=== PATIENT | female | born 1950 | race Caucasian/White ===

== ENCOUNTER 2020-02-28 | Outpatient (REF) | payer MEDICARE, SELFPAY ==
[2020-02-28 11:02] LABS: MANUAL DIFF FLAG NO
[2020-02-28 11:07] LABS: Glucose Urine UA NEG (NEG); Leukocyte Esterase Urine 1+ (NEG); Nitrite Urine NEG (NEG); PH 6.5 (5.0-8.0); Specific Gravity - Urine 1.015 (1.005-1.025); Urine Blood NEG (NEG); Urine Ketones NEG (NEG); Urine Protein NEG (NEG-TRACE)
[2020-02-28 11:08] LABS: Basophils Percent Auto 0.7 % (0-2); Eosinophils Absolute Auto 0.2 X10*3/uL (0.0-0.4); Eosinophils Percent Auto 3.5 % (0-4); Hematocrit 43.2 % (37-47); Hemoglobin 13.5 g/dl (12.0-16.0); Imm Gran Abs Auto 0.04 X10*3/uL (0.00-0.03); Imm Gran Pct Auto 0.7 % (0.0-0.4); Lymphocytes Absolute Auto 1.4 X10*3/uL (1.2-4.9); Lymphocytes Percent Auto 23.4 % (20-40); Mean Corpuscular HGB Conc 31.3 g/dl (31.0-35.0); Mean Corpuscular Hemoglobin 28.7 pg (27.0-33.0); Mean Corpuscular Volume 91.9 fL (80-98); Mean Platelet Volume 10.1 fL (9.4-12.3); Monocytes Absolute Auto 0.6 X10*3/uL (0.1-1.2); Monocytes Percent Auto 9.6 % (2-11); Neutrophils Absolute Auto 3.7 X10*3/uL (2.0-8.3); Neutrophils Percent Auto 62.1 % (45-73); Platelet Count 242 X10*3/uL (160-400); Red Cell Distribution Width 14.6 % (11.0-16.0); White Blood Count 5.9 X10*3/uL (4.8-10.8)
[2020-02-28 11:12] LABS: Appearance Urine CLEAR; Color Urine YELLOW
[2020-02-28 11:24] LABS: RBC Urine 0-2 /HPF (0); Squamous Epithelial Cell Urine TRACE /LPF
[2020-02-28 11:33] LABS: Creatinine Urine 98.12 mg/dL; Protein/Creatinine Ratio, Ur 0.11 (<0.2); Total Protein Urine Random 11 mg/dL (<12)
[2020-02-28 11:33] LABS: Anion Gap 16 (12-20); Blood Urea Nitrogen 23 mg/dL (9-16); Calcium 7.8 mg/dL (8.4-10.2); Carbon Dioxide 24 mmol/L (22-29); Chloride 107 mmol/L (96-108); Estimated Glomerular Filt Rate 35; Potassium 4.3 mmol/l (3.3-5.1); Sodium 143 mmol/L (135-145)
== END 2020-02-28 00:01 | disposition home or self-care (01) ==
LOC: HO.LHD
PROVIDERS: Visit Provider Internal Medicine Hypertension Specialist
DX: I13.0 Hypertensive heart and chronic kidney disease with heart failure and stage 1 through stage 4 chronic kidney disease, or unspecified chronic kidney disease (principal); N18.9 Chronic kidney disease, unspecified; I50.9 Heart failure, unspecified; D63.1 Anemia in chronic kidney disease; D50.8 Other iron deficiency anemias
CPT/HCPCS: 36415; 80051; 81001; 82310; 82565; 84156; 84520; 85025

== ENCOUNTER 2020-03-25 10:44 | Outpatient (REF) | payer MEDICARE, SELFPAY ==
--- NOTE | ~2020-03-25 | US_ITS ---
EXAMINATION: US RETROPERITONEAL LIMITED (RENAL ONLY) CLINICAL INFORMATION: Chronic kidney disease stage IV. Anemia. COMPARISON: CT abdomen and pelvis 09/28/2018. TECHNIQUE: Real-time imaging of the kidneys. FINDINGS: RIGHT KIDNEY: 10.9 x 3.5 x 4.4 cm (SAG x AP x TRV). The kidney is normal in size, contour, and echogenicity. Renal cortical thickness is normal. No calculi or focal parenchymal lesions. No hydronephrosis. LEFT KIDNEY: 8.9 x 4.9 x 4.3 cm (SAG x AP x TRV). The left kidney is slightly smaller than the right. The kidney is normal in contour, and echogenicity. Renal cortical thickness is normal. No calculi or focal parenchymal lesions. No hydronephrosis. US/US renal BI IMPRESSION: The left kidney is smaller than the right otherwise unremarkable exam.
--- NOTE | 2020-04-21 09:13 | ECG_ITS ---
Hook-up date: 2020-04-21 15:53:00 Duration: 40:08:00 Test Indications: UNSPEC AFIB Medications: 87911 QRS complexes 1476 Ventricular ectopics which represent 1 % of total QRS comp. * Supraventricular ectopics which represent % of total QRS comp. 08810 Paced QRS complexs which represent <1 % of total QRS comp. VENTRICULAR ECTOPY 1362 Isolated 0 Bigeminal Cycles 57 Couplets 0 Runs 0 Beats in Runs * Beats LONGEST at * BPM at :: -- * Beats FASTEST at * BPM at :: -- SUPRAVENTRICULAR ECTOPY * Isolated * Couplets * Runs * Beats in Runs * Beats LONGEST at * BPM at :: -- * Beats FASTEST at * BPM at :: -- HEART RATES 58 MIN at 18:19:58 2020-04-21 70 AVG 117 MAX at 16:01:25 2020-04-21 LONGEST RR 1.1440 secs at 06:41:15 2020-04-22 S-T LEVELS Channel 1 - 128 mm at 15:53:00 2020-04-21 - 128 mm at 15:53:00 2020-04-21 Channel 2 - 128 mm at 15:53:00 2020-04-21 - 128 mm at 15:53:00 2020-04-21 Channel 3 - 128 mm at 03:51:21 -- - 128 mm at 03:51:21 Basic rhythm Atrial fibrillation Intermittent V-paced rhythm Rate is adequately controlled Frequent Premature ventricular complexes No diary submitted Referred By: Freddy Pugh Overread By: FREDDY PUGH MD
== END 2020-03-25 10:45 | disposition home or self-care (01) ==
LOC: HO.US 10:44
PROVIDERS: Visit Provider Internal Medicine Hypertension Specialist
DX: D64.9 Anemia, unspecified (principal); I13.0 Hypertensive heart and chronic kidney disease with heart failure and stage 1 through stage 4 chronic kidney disease, or unspecified chronic kidney disease; N18.9 Chronic kidney disease, unspecified; D50.8 Other iron deficiency anemias
CPT/HCPCS: 76775

== ENCOUNTER → 2020-04-07 11:11 | Outpatient (BNVA) | payer MEDICARE, SELFPAY | PROVIDERS: PCP Internal Medicine; Visit Provider Internal Medicine Cardiovascular Disease | DX: Z45.018 Encounter for adjustment and management of other part of cardiac pacemaker (principal); I10 Essential (primary) hypertension | CPT/HCPCS: 93005; 99212 ==

== ENCOUNTER → 2020-04-14 10:10 | Outpatient (BNVA) | payer MEDICARE, SELFPAY | PROVIDERS: PCP Internal Medicine; Visit Provider Internal Medicine | DX: J44.9 Chronic obstructive pulmonary disease, unspecified (principal); R06.00 Dyspnea, unspecified; Z79.51 Long term (current) use of inhaled steroids | CPT/HCPCS: Q3014 ==

== ENCOUNTER → 2020-04-21 15:39 | Outpatient (BNVA) | payer MEDICARE, SELFPAY | PROVIDERS: PCP Internal Medicine; Visit Provider Internal Medicine Cardiovascular Disease | DX: I48.91 Unspecified atrial fibrillation (principal) | CPT/HCPCS: 93226 ==

== ENCOUNTER 2020-05-05 10:52 | Outpatient (REF) | payer MEDICARE, SELFPAY ==
[2020-05-05 11:38] LABS: MANUAL DIFF FLAG NO
[2020-05-05 11:54] LABS: Basophils Percent Auto 0.5 % (0-2); Eosinophils Absolute Auto 0.2 X10*3/uL (0.0-0.4); Eosinophils Percent Auto 2.4 % (0-4); Hematocrit 45.8 % (37-47); Hemoglobin 14.8 g/dl (12.0-16.0); Imm Gran Abs Auto 0.03 X10*3/uL (0.00-0.03); Imm Gran Pct Auto 0.5 % (0.0-0.4); Lymphocytes Percent Auto 15.4 % (20-40); Mean Corpuscular HGB Conc 32.3 g/dl (31.0-35.0); Mean Corpuscular Hemoglobin 29.4 pg (27.0-33.0); Mean Corpuscular Volume 90.9 fL (80-98); Mean Platelet Volume 10.8 fL (9.4-12.3); Monocytes Absolute Auto 0.5 X10*3/uL (0.1-1.2); Monocytes Percent Auto 8.4 % (2-11); Neutrophils Absolute Auto 4.6 X10*3/uL (2.0-8.3); Neutrophils Percent Auto 72.8 % (45-73); Platelet Count 227 X10*3/uL (160-400); Red Blood Count 5.04 X10*6/uL (4.20-5.50); Red Cell Distribution Width 14.4 % (11.0-16.0); White Blood Count 6.3 X10*3/uL (4.8-10.8)
[2020-05-05 12:18] LABS: Alanine Aminotransferase 16 U/L (0-31); Albumin Level 3.4 g/dL (3.5-5.0); Alkaline Phosphatase 109 U/L (39-117); Anion Gap 15 (12-20); Aspartate Amino Transferase 15 U/L (5-31); Bilirubin Total 0.3 mg/dL (0.0-1.0); Blood Urea Nitrogen 26 mg/dL (9-16); Calcium 8.3 mg/dL (8.4-10.2); Carbon Dioxide 21 mmol/L (22-29); Chloride 111 mmol/L (96-108); Cholesterol 158 mg/dL; Estimated Glomerular Filt Rate 43; Glucose Random 99 mg/dL (60-115); HDL Cholesterol 51 mg/dL; LDL Cholesterol Calculated 77 mg/dl; Potassium 5.2 mmol/L (3.3-5.1); Sodium 142 mmol/L (135-145); Triglycerides 151 mg/dL
[2020-05-05 12:39] LABS: Ferritin 129 ng/mL (10-250); Thyroid Stimulating Hormone 1.77 uIU/mL (0.32-4.0)
== END 2020-05-05 10:53 | disposition home or self-care (01) ==
LOC: HO.LHD 10:52
PROVIDERS: PCP Internal Medicine; Visit Provider Internal Medicine Cardiovascular Disease
DX: I48.19 Other persistent atrial fibrillation (principal); Z79.01 Long term (current) use of anticoagulants; Z95.0 Presence of cardiac pacemaker; Z00.01 Encounter for general adult medical examination with abnormal findings; D50.8 Other iron deficiency anemias; G89.4 Chronic pain syndrome
CPT/HCPCS: 36415; 80053; 80061; 82728; 84443; 85025; 99212

== ENCOUNTER 2020-07-21 10:29 | Outpatient (REF) | payer MEDICARE, SELFPAY ==
[2020-07-21 11:22] LABS: MANUAL DIFF FLAG NO
[2020-07-21 11:53] LABS: Basophils Absolute Auto 0.1 X10*3/uL (0.0-0.2); Basophils Percent Auto 0.9 % (0-2); Eosinophils Absolute Auto 0.2 X10*3/uL (0.0-0.4); Hematocrit 45.6 % (37-47); Hemoglobin 14.5 g/dl (12.0-16.0); Imm Gran Abs Auto 0.07 X10*3/uL (0.00-0.03); Imm Gran Pct Auto 1.2 % (0.0-0.4); Lymphocytes Absolute Auto 1.3 X10*3/uL (1.2-4.9); Lymphocytes Percent Auto 22.1 % (20-40); Mean Corpuscular HGB Conc 31.8 g/dl (31.0-35.0); Mean Corpuscular Hemoglobin 29.1 pg (27.0-33.0); Mean Corpuscular Volume 91.4 fL (80-98); Mean Platelet Volume 10.5 fL (9.4-12.3); Monocytes Absolute Auto 0.5 X10*3/uL (0.1-1.2); Monocytes Percent Auto 8.7 % (2-11); Neutrophils Absolute Auto 3.7 X10*3/uL (2.0-8.3); Neutrophils Percent Auto 64.1 % (45-73); Platelet Count 232 X10*3/uL (160-400); Red Blood Count 4.99 X10*6/uL (4.20-5.50); Red Cell Distribution Width 14.5 % (11.0-16.0); White Blood Count 5.8 X10*3/uL (4.8-10.8)
[2020-07-21 11:58] LABS: Alanine Aminotransferase 14 U/L (0-31); Albumin Level 3.5 g/dL (3.5-5.0); Alkaline Phosphatase 98 U/L (39-117); Anion Gap 15 (12-20); Aspartate Amino Transferase 13 U/L (5-31); Bilirubin Total 0.4 mg/dL (0.0-1.0); Blood Urea Nitrogen 29 mg/dL (9-16); Calcium 8.7 mg/dL (8.4-10.2); Carbon Dioxide 21 mmol/L (22-29); Chloride 112 mmol/L (96-108); Estimated Glomerular Filt Rate 44; Glucose Random 109 mg/dL (60-115); Potassium 4.7 mmol/L (3.3-5.1); Sodium 143 mmol/L (135-145); Total Protein 6.2 g/dL (6.5-8.0)
== END 2020-07-21 10:30 | disposition home or self-care (01) ==
LOC: HO.LAB 10:29
PROVIDERS: PCP Registered Nurse; Visit Provider Registered Nurse
DX: J44.9 Chronic obstructive pulmonary disease, unspecified (principal); R06.00 Dyspnea, unspecified; D50.9 Iron deficiency anemia, unspecified; R42 Dizziness and giddiness; Z79.899 Other long term (current) drug therapy; Z87.891 Personal history of nicotine dependence
CPT/HCPCS: 36415; 80053; 85025; 99212

== ENCOUNTER 2020-11-12 08:58 | Outpatient (REF) | payer MEDICARE, SELFPAY ==
[2020-11-12 11:21] LABS: Hematocrit 41.5 % (37-47); Hemoglobin 13.1 g/dl (12.0-16.0); Mean Corpuscular HGB Conc 31.6 g/dl (31.0-35.0); Mean Corpuscular Hemoglobin 28.9 pg (27.0-33.0); Mean Corpuscular Volume 91.6 fL (80-98); Platelet Count 259 X10*3/uL (160-400); Red Blood Count 4.53 X10*6/uL (4.20-5.50); Red Cell Distribution Width 13.3 % (11.0-16.0); White Blood Count 6.7 X10*3/uL (4.8-10.8)
[2020-11-12 12:03] LABS: Anion Gap 13 (12-20); Blood Urea Nitrogen 19 mg/dL (9-16); Carbon Dioxide 23 mmol/L (22-29); Chloride 109 mmol/L (96-108); Estimated Glomerular Filt Rate 54; Phosphorus 3.9 mg/dL (2.7-4.5); Sodium 141 mmol/L (135-145)
== END 2020-11-12 08:59 | disposition home or self-care (01) ==
LOC: HO.HMGCLDS 08:58
PROVIDERS: Visit Provider Internal Medicine Hypertension Specialist
DX: I13.0 Hypertensive heart and chronic kidney disease with heart failure and stage 1 through stage 4 chronic kidney disease, or unspecified chronic kidney disease (principal); N18.9 Chronic kidney disease, unspecified; I50.9 Heart failure, unspecified
CPT/HCPCS: 36415; 80051; 82310; 82565; 84100; 84520; 85027

== ENCOUNTER → 2020-11-26 10:16 | Outpatient (BNVA) | payer MEDICARE, SELFPAY | PROVIDERS: PCP Registered Nurse; Visit Provider Internal Medicine | DX: J44.9 Chronic obstructive pulmonary disease, unspecified (principal); I48.19 Other persistent atrial fibrillation; R06.00 Dyspnea, unspecified; Z23 Encounter for immunization | CPT/HCPCS: 90471; 90686; Q3014 ==

== ENCOUNTER → 2020-12-01 12:44 | Outpatient (BNVA) | payer MEDICARE, SELFPAY | PROVIDERS: PCP Internal Medicine; Visit Provider Internal Medicine Cardiovascular Disease | DX: Z45.018 Encounter for adjustment and management of other part of cardiac pacemaker (principal); I48.19 Other persistent atrial fibrillation | CPT/HCPCS: 99212 ==

== ENCOUNTER 2020-12-09 14:44 | Outpatient (REF) | payer MEDICARE, SELFPAY ==
--- NOTE | ~2020-12-09 | XR_ITS ---
EXAMINATION: XR CHEST CLINICAL INFORMATION: COPD COMPARISON: 07/10/2018 TECHNIQUE: 2 views of the chest were obtained. FINDINGS: Left chest wall pacer with leads over the right atrium and right ventricle. Lungs are well expanded. Increased peripheral left midlung opacity. No pleural effusion or pneumothorax. The cardiomediastinal silhouette is normal in size with a calcified aorta. XR/XR chest 2V IMPRESSION: Increased peripheral left midlung opacity may represent atelectasis or pneumonia. Continued follow-up to resolution is recommended.
--- NOTE | ~2020-12-09 | US_ITS ---
EXAMINATION: US EXTRACRANIAL CAROTID DUPLEX, BILATERAL CLINICAL INFORMATION: Stroke COMPARISON: None TECHNIQUE: Real-time ultrasound and Doppler techniques (integrating B-mode 2-D vascular images, Doppler spectral analysis and color-flow Doppler imaging) were utilized to interrogate the extracranial carotid arteries, the vertebral arteries and proximal subclavian arteries bilaterally. The degree of stenosis is determined by criteria similar to NASCET. FINDINGS: Right Side: 1. There is no significant atherosclerotic plaque seen in the bifurcation/proximal ICA region. 2. The common carotid artery PSV proximally is 46 cm/s and distally 39 cm/s. 3. The proximal internal carotid artery velocities are 53 cm/s systolic and 26 cm/s diastolic. 4. The proximal external carotid artery PSV is 72 cm/s. 5. The vertebral artery shows antegrade flow. 6. The subclavian artery waveforms are normal. Left Side: 1. There is no significant atherosclerotic plaque seen in the bifurcation/proximal ICA region. 2. The common carotid artery PSV proximally is 57 cm/s and distally 61 cm/s. 3. The proximal internal carotid artery velocities are 40 cm/s systolic and 22 cm/s diastolic. 4. The proximal external carotid artery PSV is 43 cm/s. 5. The vertebral artery shows antegrade flow. 6. The subclavian artery waveforms are normal. US/US carotid duplex BI IMPRESSION: 1. RIGHT: Normal right internal carotid artery without atherosclerotic plaque or hemodynamically significant stenosis. 2. LEFT: Normal left internal carotid artery without atherosclerotic plaque or hemodynamically significant stenosis.
[2020-12-09 14:59] LABS: MANUAL DIFF FLAG NO
[2020-12-09 15:13] LABS: Ammonia 31 umol/L (13-55)
[2020-12-09 15:30] LABS: Basophils Percent Auto 0.3 % (0-2); Eosinophils Absolute Auto 0.1 X10*3/uL (0.0-0.4); Eosinophils Percent Auto 0.6 % (0-4); Hematocrit 41.8 % (37.0-47.0); Hemoglobin 13.4 g/dl (12.0-16.0); Imm Gran Abs Auto 0.11 X10*3/uL (0.00-0.03); Imm Gran Pct Auto 1.3 % (0.0-0.4); Lymphocytes Absolute Auto 1.1 X10*3/uL (1.2-4.9); Lymphocytes Percent Auto 13.1 % (20-40); Mean Corpuscular HGB Conc 32.1 g/dl (31.0-35.0); Mean Corpuscular Hemoglobin 28.9 pg (27.0-33.0); Mean Corpuscular Volume 90.3 fL (80.0-98.0); Mean Platelet Volume 10.5 fL (9.4-12.3); Monocytes Percent Auto 11.6 % (2-11); Neutrophils Absolute Auto 6.33 x10*3/uL (2.0-8.3); Neutrophils Percent Auto 73.1 % (45-73); Platelet Count 283 X10*3/uL (160-400); Red Blood Count 4.63 X10*6/uL (4.20-5.50); Red Cell Distribution Width 13.9 % (11.0-16.0); White Blood Count 8.7 X10*3/uL (4.8-10.8)
[2020-12-09 16:07] LABS: Anion Gap 16 (12-20); Blood Urea Nitrogen 27 mg/dL (9-16); Calcium 8.1 mg/dL (8.4-10.2); Carbon Dioxide 19 mmol/L (22-29); Chloride 109 mmol/L (96-108); Estimated Glomerular Filt Rate 40; Glucose Random 128 mg/dL (60-115); Potassium 3.6 mmol/L (3.3-5.1); Sodium 140 mmol/L (135-145)
== END 2020-12-09 14:45 | disposition home or self-care (01) ==
LOC: HO.LAB 14:44
PROVIDERS: Visit Provider Psychiatry & Neurology Neurology
DX: I63.9 Cerebral infarction, unspecified (principal); R42 Dizziness and giddiness; J44.9 Chronic obstructive pulmonary disease, unspecified
CPT/HCPCS: 36415; 71046; 80048; 82140; 85025; 93880

== ENCOUNTER 2020-12-10 08:54 | Outpatient (REF) | payer MEDICARE, SELFPAY ==
[2020-12-10 11:42] LABS: Appearance Urine HAZY; Color Urine DK YELLOW; Glucose Urine UA NEG (NEG); Leukocyte Esterase Urine NEG (NEG); Nitrite Urine NEG (NEG); Urine Blood TRACE (NEG); Urine Ketones NEG (NEG); Urine Protein TRACE MG/DL (NEG-TRACE)
[2020-12-10 13:28] LABS: Bacteria Urine 3+ /LPF; Squamous Epithelial Cell Urine 1+ /LPF; WBC Urine 0-2 /HPF (0-4)
== END 2020-12-10 08:55 | disposition home or self-care (01) ==
LOC: HO.HMGCLNP 08:54
PROVIDERS: Visit Provider Psychiatry & Neurology Neurology
DX: R44.3 Hallucinations, unspecified (principal)
CPT/HCPCS: 81001

== ENCOUNTER 2020-12-10 20:54 | Emergency (ER) | payer MEDICARE, SELFPAY ==
[2020-12-10] VITALS (14 sets, daily range): BP systolic 70–118; BP diastolic 40–75; PULSE 69–145; RESP 17–33; TEMP 38.1–39.1; O2SAT 98–100; BMI 30.4
--- NOTE | 2020-12-10 | ECG_ITS ---
Test Reason : SOB Blood Pressure : / mmHG Vent. Rate : 137 BPM Atrial Rate : 000 BPM P-R Int : 000 ms QRS Dur : 096 ms QT Int : 302 ms P-R-T Axes : 000 -01 197 degrees QTc Int : 456 ms Atrial fibrillation with rapid ventricular response Minimal voltage criteria for LVH, may be normal variant ( [employer] product ) Marked ST abnormality, possible lateral subendocardial injury Abnormal ECG When compared with ECG of 10-DEC-2020 21:14, No significant change was found Referred By: Shruthi Calderon Electronically Signed By:SHEILA ANDREWS MD
--- NOTE | ~2020-12-10 | CT_ITS ---
EXAMINATION: CT ABDOMEN AND PELVIS WITH CONTRAST CLINICAL INFORMATION: Colitis. COMPARISON: CT scan abdomen pelvis September 28, 2018 TECHNIQUE: Multidetector volumetric images were obtained from the superior aspect of the liver through the pubic symphysis following administration 85 mL of Omnipaque 350 intravenous contrast. Sagittal and coronal reformatted images were obtained on the technologist's workstation. Oral contrast: No This CT examination was performed using dose optimization techniques as appropriate, variously including the following: *Automated exposure control *Adjustment of mA and/or kV according to patient size (this includes techniques or standardized protocols for targeted exams where dose is matched to indication/reason for exam; i.e. extremities or head) *Use of iterative reconstruction technique DLP: 1120 mGy-cm FINDINGS: LUNG BASES: Dense consolidation at the left lung base. Heart size is enlarged. Pacemaker leads in the heart. LIVER, GALLBLADDER, AND BILIARY TREE: The liver is normal in size, shape, and attenuation. No focal hepatic lesion or biliary ductal dilatation is present. The gallbladder is unremarkable with no evidence of radiopaque gallstones, gallbladder wall thickening, or obvious pericholecystic inflammatory changes. PANCREAS: Pancreas is atrophic. No inflammation of the pancreas. No pancreatic mass or pancreatic duct dilatation. SPLEEN: Unremarkable. ADRENAL GLANDS: Unremarkable. KIDNEYS AND URETERS: The kidneys are normal in size, shape, and attenuation. No hydronephrosis, hydroureter, or calculi seen. No perinephric stranding. BLADDER: Cadet catheter within the bladder. Bladder is partially filled. No bladder mass or calculus. No inflammation around the bladder. GASTROINTESTINAL TRACT: Surgical clips right lower quadrant. There are mildly distended small bowel loops in left midabdomen with transition zone low pelvis. The terminal ileum is decompressed. Findings suggest a mild small bowel obstruction. No bowel wall thickening or edema. There is no evidence of colitis. Moderate volume of scattered stool in the colon. The appendix is not seen. Stomach unremarkable. ABDOMINAL WALL: No significant hernia is appreciated. LYMPH NODES: Normal. VASCULAR: No change in size of the infrarenal abdominal aortic aneurysm since prior CAT scan of 2018. Aneurysm measures 3.9 cm transverse. No evidence of aneurysm leak. Recommend follow-up survey imaging of the abdominal aorta every 2 years. PELVIC VISCERA: Unremarkable. OSSEOUS STRUCTURES: No acute osseous stability. There is multilevel degenerative spondylosis of the spine. CT/CT abdomen pelvis w con IMPRESSION: 1. Consolidation at left lung base. 2. Mild small bowel dilatation consistent with mild obstruction with transition point in the low pelvis. No evidence of colitis. 3. Stable infrarenal abdominal aortic aneurysm measuring 3.9 cm. Recommend follow-up survey imaging of the abdominal aorta every 2 years.
--- NOTE | ~2020-12-10 | XR_ITS ---
EXAMINATION: XR CHEST CLINICAL INFORMATION: Central line placement. COMPARISON: 12/10/2020 TECHNIQUE: Frontal view of the chest was obtained. FINDINGS: Right IJ central venous catheter tip terminates near the cavoatrial junction. Left-sided dual lead pacemaker is unchanged. Multiple EKG leads overlie the chest. Patient is rotated to the left. Patchy airspace consolidation is again seen in the left lung base and mid lung, unchanged from prior. Cardiac and mediastinal contours are normal. No pleural effusion or pneumothorax. Right lung appears clear. XR/XR chest 1V IMPRESSION: Persistent airspace consolidation in the left midlung and left lung base Right IJ central venous catheter tip terminates near the cavoatrial junction. No pneumothorax.
--- NOTE | ~2020-12-10 | XR_ITS ---
EXAMINATION: XR CHEST CLINICAL INFORMATION: Shortness of breath. COMPARISON: 12/09/2020 TECHNIQUE: Frontal view of the chest was obtained. FINDINGS: Dual lead left pectoral pacemaker is unchanged. Cardiac leads overlie the chest. There are new alveolar airspace opacities throughout the left lung, more pronounced at the base. A few patchy airspace opacities are suspected in the right upper lobe. No pneumothorax or pleural effusion. Cardiac and mediastinal contours are normal. Calcific atherosclerosis is present in the thoracic aorta. XR/XR chest 1V IMPRESSION: New multifocal left long consolidation and questionable early consolidation in the right lung, concerning for asymmetric pulmonary edema given the relatively sudden onset. Aspiration is less likely given the distribution. Pneumonia is also on the differential.
[2020-12-10 21:02] LABS: Glucose, Whole Blood 134 mg/dL (60-115)
--- NOTE | 2020-12-10 21:14 | ECG_ITS ---
Test Reason : DIFFICULTY BREATHING Blood Pressure : / mmHG Vent. Rate : 133 BPM Atrial Rate : 000 BPM P-R Int : 000 ms QRS Dur : 096 ms QT Int : 310 ms P-R-T Axes : 000 -02 210 degrees QTc Int : 461 ms Atrial fibrillation with rapid ventricular response Marked ST abnormality, possible inferolateral subendocardial injury Abnormal ECG Atrial fibrillation is new Referred By: Shruthi Calderon Electronically Signed By:SHEILA ANDREWS MD
[2020-12-10] MEDS: Albuterol Sulfate (0.083%) 2.5 MG/3 ML VIAL.NEB 10 MG INHALE (21:22)
[2020-12-10 21:29] LABS: MANUAL DIFF FLAG NO
[2020-12-10 21:33] LABS: Basophils Percent Auto 0.5 % (0-2); Eosinophils Percent Auto 0.5 % (0-4); Hematocrit 43.7 % (37.0-47.0); Hemoglobin 13.7 g/dl (12.0-16.0); Imm Gran Pct Auto 2.3 % (0.0-0.4); Lymphocytes Absolute Auto 0.6 X10*3/uL (1.2-4.9); Lymphocytes Percent Auto 13.3 % (20-40); Mean Corpuscular HGB Conc 31.4 g/dl (31.0-35.0); Mean Corpuscular Hemoglobin 28.6 pg (27.0-33.0); Mean Corpuscular Volume 91.2 fL (80.0-98.0); Monocytes Absolute Auto 0.1 X10*3/uL (0.1-1.2); Monocytes Percent Auto 3.2 % (2-11); Neutrophils Absolute Auto 3.5 x10*3/uL (2.0-8.3); Neutrophils Percent Auto 80.2 % (45-73); Platelet Count 323 X10*3/uL (160-400); Red Blood Count 4.79 X10*6/uL (4.20-5.50); Red Cell Distribution Width 13.8 % (11.0-16.0); White Blood Count 4.4 X10*3/uL (4.8-10.8)
[2020-12-10] MEDS: methylPREDNISolone Sod Succ 125 MG/2 ML VIAL IVPUSH (21:33)
[2020-12-10 21:36] LABS: Venous Blood Gas Refer to POC result
[2020-12-10 21:38] LABS: VBG Base Excess -11.4 mmol/L; VBG HCO3 14 mmol/L (22-26); VBG pCO2 32 mmHg; VBG pH 7.25 (7.32-7.43); VBG pO2 47 mmHg
[2020-12-10 21:40] LABS: INTERNATIONAL NORM RATIO 1.6 (0.9-1.1)
[2020-12-10] MEDS: 0.9 % Sodium Chloride 1,000 ML 999 ML IVCONT (21:41)
[2020-12-10] MEDS: Metoprolol Tartrate 5 MG/5 ML VIAL IVPUSH ×2 (21:41→22:02)
[2020-12-10 21:47] LABS: Alanine Aminotransferase 52 U/L (0-31); Alkaline Phosphatase 151 U/L (39-117); Anion Gap 17 (12-20); Aspartate Amino Transferase 49 U/L (5-31); Bilirubin Direct 0.3 mg/dL (0.0-0.5); Bilirubin Total 0.4 mg/dL (0.0-1.0); Blood Urea Nitrogen 24 mg/dL (9-16); Calcium 7.6 mg/dL (8.4-10.2); Carbon Dioxide 15 mmol/L (22-29); Chloride 112 mmol/L (96-108); Estimated Glomerular Filt Rate 41; Glucose Random 134 mg/dL (60-115); Lipase 18 U/L (8-78); Magnesium 1.7 mg/dL (1.6-2.6); Potassium 3.4 mmol/L (3.3-5.1); Sodium 141 mmol/L (135-145); Total Protein 5.5 g/dL (6.5-8.0)
--- NOTE | 2020-12-10 21:53 | ED.GENADULT ---
HPI - General Adult General Chief complaint: Altered Mental Status Stated complaint: guy Time Seen by Provider: 12/10/20 21:16 Source: patient and family Mode of arrival: wheelchair Limitations: altered mental status History of Present Illness HPI narrative: Patient is brought to the emergency room by her daughter. The daughter reports that the patient has been hallucinating for several days, seeing people, having multiple episodes of diarrhea. The daughter reports that since this morning, the patient has been altered, confused, continues hallucinating. The daughter reports that the patient seems that had trouble breathing earlier today, states that prior to bring the patient to the hospital, the patient was cyanotic, more altered than she has been, patient does not use oxygen at home. However, patient's does us oxygen, the family put the oxygen on the patient and brought her to the emergency room. Patient is unable to give any history due to respiratory distress Related Data Home Medications Medication Instructions Recorded Confirmed albuterol sulfate 90 mcg/actuation 2 puff INHALATION Q6H PRN 04/07/20 12/10/20 aerosol inhaler ascorbic acid (vitamin C) 500 mg 500 mg PO BID 04/07/20 12/10/20 tablet ferrous sulfate 325 mg (65 mg 325 mg PO BID 04/07/20 12/10/20 iron) tablet folic acid 1 mg tablet 1 mg PO DAILY 04/07/20 12/10/20 simvastatin 40 mg tablet 40 mg PO DAILY 04/07/20 12/10/20 hydrocodone 7.5 mg-acetaminophen 1 tab PO BID PRN 07/21/20 12/10/20 325 mg tablet lipase 3,000-protease 0 cap PO 11/26/20 12/01/20 9,500-amylase 15,000 unit capsule, delayed rel (Creon) mirtazapine 15 mg tablet 15 mg PO BEDTIME 11/26/20 12/10/20 metoprolol succinate 100 mg 50 mg PO BID 12/10/20 12/10/20 tablet,extended release 24 hr Previous Rx's Medication Instructions Recorded pantoprazole 40 mg tablet,delayed 40 mg PO DAILY 30 Days #30 tab 02/06/20 release sucralfate 1 gram tablet 4 g PO BEDTIME #360 tab 02/06/20 umeclidinium 62.5 mcg-vilanterol 1 inh INHALATION DAILY 30 Days #60 11/26/20 25 mcg/actuation powdr for ea inhalation (Anoro Ellipta) rivaroxaban 20 mg tablet (Xarelto) 20 mg PO DAILY #30 tab 12/01/20 Allergies Allergy/AdvReac Type Severity Reaction Status Date / Time No Known Allergies Allergy Verified 12/10/20 23:39 [No Known Allergies*] Review of Systems Review of Systems: Yes Unobtainable due to mental condition [facility] Past Medical History Medical History Cardiac pacemaker in situ COPD (chronic obstructive pulmonary disease) Dyspnea on exertion HTN (hypertension) Persistent atrial fibrillation Sick sinus syndrome Surgical History History of cardioversion History of radiofrequency ablation (RFA) for complex left atrial arrhythmia Hx of cardiac pacemaker Hx of hysterectomy Family History Family History Father CHF (congestive heart failure) Cancer Pacemaker Mother Emphysema lung Social History Social History Alcohol intake: never Patient Tobacco Use Status: Never used Tobacco Use of substances other than those prescribed or required for medical reasons: No Advance Directives: No Advance Directives Information Provided: Yes Physical Exam Vital Signs: Vital Signs: Last Vital Signs Temp 99.1 F 12/11/20 03:22 Pulse 97 12/11/20 03:58 Resp 18 12/11/20 03:58 BP 108/65 12/11/20 03:58 Pulse Ox 100 12/11/20 03:58 Body Mass Index 30.4 Const: Other: Appearance: Somnolent, wakes up when her name is called Eyes: Pupils equal, round and reactive to light. ENT: Pharynx normal. Neck: Normal inspection. Neck supple. No lymph nodes noted. No crepitus CVS: Atrial fibrillation heart rate between 130-160 Respiratory: Deep shallow breaths, bilateral wheezing, significant tightness Abdomen: Soft and nontender. No rigidity. No distention. Skin: Skin warm and dry. Extremities: No lower extremity edema. No Lacerations. No Rash Neuro: Moves all extremities Course Course Course Narrative: On arrival, patient received 125 mg of methylprednisolone, DuoNeb, and an hour long albuterol nebulization treatment After IV hydration, several nebulization treatments with DuoNebs and albuterol, 2 doses of metoprolol IV and after being on BiPAP, patient is much more alert, awake, no talking, alert and oriented x2, speaking in full sentences, complaining that she is very thirsty and wants something to drink Patient had a large bowel movement, patient had black stool, guaiac sent and is positive (likely due to Xarelto). Patient's hemoglobin is stable 14 and hematocrit is 43. Patient was weaned off BiPAP, now on a Booth canula 8L, saturating at 99% Patient has multifocal left lung consolidations and early consolidations in the right lower lobe. Patient was given 1 g of ceftriaxone and 500 mg of IV azithromycin. COVID negative Patient's heart rate on arrival ranged between 130 and 170, blood pressure 110 systolic. Patient was given IV fluids and 2 doses of 5 mg of IV metoprolol. Initially the patient's blood pressure was stable, but shortly after started to drop to the 70s systolic. Patient's blood pressure did not improve despite 4L of Normal saline. Patient is awake and alert, speaking in full sentences. Discussed with the patient and her daughter who is the healthcare proxy that we need to insert a central line to start pressors. Patient and daughter agree with plan. Patient's heart rate improved to 80-90, remains in atrial fibrillation. Patient has now a 3 lumen central line in the right IJ Patient is currently on Levophed 8.5 mcg, has a blood pressure of 117/77. We attempted to lower the Levophed, but the patient's blood pressure started dropping below 90. Therefore, Levophed at a 0.5 was restarted. We do not have ICU beds in our facility, we attempted transferring to patient to [facility]. Patient was accepted at [facility]. Patient will be going from ED to ED, accepting physician Dr. Aguayo. Procedures Central Line Placement Right IJ: Time Out Performed: Yes Patient Placed on Monitor/Pulse Ox: Yes MD Prep: mask, gown and gloves Central Line Prep: Chlorhexidine scrub Local Anesthetic: lidocaine 1% Amount of anesthesia used (mL): 4 Ultrasound Used for Placement: Yes Central Line Lumen Inserted: triple Post Procedure: sutured in place, good blood return, all ports aspirated, flushed, capped and sterile dressing applied Post Procedure X-Ray: tip of catheter in good position and no pneumothorax seen Patient Tolerated Procedure: well Complications: none Medical Decision Making Lab Data Result diagrams: 12/11/20 00:42 12/10/20 21:15 Labs: Lab Results 12/10/20 12/10/20 12/10/20 Range/Units 20:59 21:15 21:15 WBC 4.4 L (4.8-10.8) X10*3/uL RBC 4.79 (4.20-5.50) X10*6/uL Hgb 13.7 (12.0-16.0) g/dl Hct 43.7 (37.0-47.0) % MCV 91.2 (80.0-98.0) fL MCH 28.6 (27.0-33.0) pg MCHC 31.4 (31.0-35.0) g/dl RDW 13.8 (11.0-16.0) % Plt Count 323 (160-400) X10*3/uL MPV 10.0 (9.4-12.3) fL Immature Gran % (Auto) 2.3 H (0.0-0.4) % Neut % (Auto) 80.2 H (45-73) % Lymph % (Auto) 13.3 L (20-40) % [place] % (Auto) 3.2 (2-11) % Eos % (Auto) 0.5 (0-4) % Baso % (Auto) 0.5 (0-2) % Lymph # (Auto) 0.6 L (1.2-4.9) X10*3/uL [place] # (Auto) 0.1 (0.1-1.2) X10*3/uL Eos # (Auto) 0.0 (0.0-0.4) X10*3/uL Baso # (Auto) 0.0 (0.0-0.2) X10*3/uL Abs Immat Gran (auto) 0.10 H (0.00-0.03) X10*3/uL Absolute Neuts (auto) 3.5 (2.0-8.3) x10*3/uL Absolute Nucleated RBC 0.000 (0.0-0.012) X10*3/uL Nucleated RBC % (auto) 0.0 (0.0-0.2) /100WBC PT 18.0 H (9.9-13.0) SEC INR 1.6 H (0.9-1.1) VBG pH (7.32-7.43) VBG pCO2 mmHg VBG pO2 mmHg VBG HCO3 (22-26) mmol/L VBG O2 Saturation % VBG Base Excess mmol/L Sodium (135-145) mmol/L Potassium (3.3-5.1) mmol/L Chloride (96-108) mmol/L Carbon Dioxide (22-29) mmol/L Anion Gap (12-20) BUN (9-16) mg/dL Creatinine (0.5-1.4) mg/dL Estim Creat Clear Calc Estimated GFR POC Glucose 134 H (60-115) mg/dL Random Glucose (60-115) mg/dL Lactic Acid (0.5-2.0) mmol/L Lactic Acid Fup @ 2Hr (0.5-2.0) mmol/L Lactic Acid Fup @ 4Hr (0.5-2.0) mmol/L Calcium (8.4-10.2) mg/dL Magnesium (1.6-2.6) mg/dL Total Bilirubin (0.0-1.0) mg/dL Direct Bilirubin (0.0-0.5) mg/dL AST (5-31) U/L ALT (0-31) U/L Alkaline Phosphatase (39-117) U/L Ammonia (13-55) umol/L Troponin I High Sens (<3.5-17.0) ng/L B-Natriuretic Peptide (<100) pg/mL Total Protein (6.5-8.0) g/dL Albumin (3.5-5.0) g/dL Lipase (8-78) U/L TSH (0.32-4.0) uIU/mL Urine Color Urine Appearance Urine pH (5.0-8.0) Ur Specific [place] (1.005-1.025) Urine Protein (NEG-TRACE) MG/DL Urine Glucose (UA) (NEG) MG/DL Urine Ketones (NEG) MG/DL Urine Blood (NEG) Urine Nitrite (NEG) Ur Leukocyte Esterase (NEG) Stool Occult Blood (NEGATIVE) Urine Opiates Screen (Not Detect) Urine Fentanyl Screen (Not Detect) Acetaminophen (<30) mcg/mL Ur Barbiturates Screen (Not Detect) Ur Phencyclidine Scrn (Not Detect) Ur Amphetamines Screen (Not Detect) U Benzodiazepines Scrn (Not Detect) Urine Cocaine Screen (Not Detect) U Marijuana (THC) Screen (Not Detect) COVID-19 (ELO) (Negative) COVID-19 Clin Com 12/10/20 12/10/20 12/10/20 Range/Units 21:15 21:15 21:15 WBC (4.8-10.8) X10*3/uL RBC (4.20-5.50) X10*6/uL Hgb (12.0-16.0) g/dl Hct (37.0-47.0) % MCV (80.0-98.0) fL MCH (27.0-33.0) pg MCHC (31.0-35.0) g/dl RDW (11.0-16.0) % Plt Count (160-400) X10*3/uL MPV (9.4-12.3) fL Immature Gran % (Auto) (0.0-0.4) % Neut % (Auto) (45-73) % Lymph % (Auto) (20-40) % [place] % (Auto) (2-11) % Eos % (Auto) (0-4) % Baso % (Auto) (0-2) % Lymph # (Auto) (1.2-4.9) X10*3/uL [place] # (Auto) (0.1-1.2) X10*3/uL Eos # (Auto) (0.0-0.4) X10*3/uL Baso # (Auto) (0.0-0.2) X10*3/uL Abs Immat Gran (auto) (0.00-0.03) X10*3/uL Absolute Neuts (auto) (2.0-8.3) x10*3/uL Absolute Nucleated RBC (0.0-0.012) X10*3/uL Nucleated RBC % (auto) (0.0-0.2) /100WBC PT (9.9-13.0) SEC INR (0.9-1.1) VBG pH (7.32-7.43) VBG pCO2 mmHg VBG pO2 mmHg VBG HCO3 (22-26) mmol/L VBG O2 Saturation % VBG Base Excess mmol/L Sodium 141 (135-145) mmol/L Potassium 3.4 (3.3-5.1) mmol/L Chloride 112 H (96-108) mmol/L Carbon Dioxide 15 L (22-29) mmol/L Anion Gap 17 (12-20) BUN 24 H (9-16) mg/dL Creatinine 1.28 (0.5-1.4) mg/dL Estim Creat Clear Calc TNP Estimated GFR 41 POC Glucose (60-115) mg/dL Random Glucose 134 H (60-115) mg/dL Lactic Acid 3.3 H* (0.5-2.0) mmol/L Lactic Acid Fup @ 2Hr (0.5-2.0) mmol/L Lactic Acid Fup @ 4Hr (0.5-2.0) mmol/L Calcium 7.6 L D (8.4-10.2) mg/dL Magnesium 1.7 (1.6-2.6) mg/dL Total Bilirubin 0.4 (0.0-1.0) mg/dL Direct Bilirubin 0.3 (0.0-0.5) mg/dL AST 49 H D (5-31) U/L ALT 52 H (0-31) U/L Alkaline Phosphatase 151 H D (39-117) U/L Ammonia (13-55) umol/L Troponin I High Sens 31.2 H* (<3.5-17.0) ng/L B-Natriuretic Peptide 117 H (<100) pg/mL Total Protein 5.5 L (6.5-8.0) g/dL Albumin 3.0 L (3.5-5.0) g/dL Lipase 18 (8-78) U/L TSH 1.13 (0.32-4.0) uIU/mL Urine Color Urine Appearance Urine pH (5.0-8.0) Ur Specific [place] (1.005-1.025) Urine Protein (NEG-TRACE) MG/DL Urine Glucose (UA) (NEG) MG/DL Urine Ketones (NEG) MG/DL Urine Blood (NEG) Urine Nitrite (NEG) Ur Leukocyte Esterase (NEG) Stool Occult Blood (NEGATIVE) Urine Opiates Screen (Not Detect) Urine Fentanyl Screen (Not Detect) Acetaminophen (<30) mcg/mL Ur Barbiturates Screen (Not Detect) Ur Phencyclidine Scrn (Not Detect) Ur Amphetamines Screen (Not Detect) U Benzodiazepines Scrn (Not Detect) Urine Cocaine Screen (Not Detect) U Marijuana (THC) Screen (Not Detect) COVID-19 (ELO) (Negative) COVID-19 Clin Com 12/10/20 12/10/20 12/10/20 Range/Units 21:23 21:45 21:47 WBC (4.8-10.8) X10*3/uL RBC (4.20-5.50) X10*6/uL Hgb (12.0-16.0) g/dl Hct (37.0-47.0) % MCV (80.0-98.0) fL MCH (27.0-33.0) pg MCHC (31.0-35.0) g/dl RDW (11.0-16.0) % Plt Count (160-400) X10*3/uL MPV (9.4-12.3) fL Immature Gran % (Auto) (0.0-0.4) % Neut % (Auto) (45-73) % Lymph % (Auto) (20-40) % [place] % (Auto) (2-11) % Eos % (Auto) (0-4) % Baso % (Auto) (0-2) % Lymph # (Auto) (1.2-4.9) X10*3/uL [place] # (Auto) (0.1-1.2) X10*3/uL Eos # (Auto) (0.0-0.4) X10*3/uL Baso # (Auto) (0.0-0.2) X10*3/uL Abs Immat Gran (auto) (0.00-0.03) X10*3/uL Absolute Neuts (auto) (2.0-8.3) x10*3/uL Absolute Nucleated RBC (0.0-0.012) X10*3/uL Nucleated RBC % (auto) (0.0-0.2) /100WBC PT (9.9-13.0) SEC INR (0.9-1.1) VBG pH 7.25 L (7.32-7.43) VBG pCO2 32 mmHg VBG pO2 47 mmHg VBG HCO3 14 L (22-26) mmol/L VBG O2 Saturation 69.0 % VBG Base Excess -11.4 mmol/L Sodium (135-145) mmol/L Potassium (3.3-5.1) mmol/L Chloride (96-108) mmol/L Carbon Dioxide (22-29) mmol/L Anion Gap (12-20) BUN (9-16) mg/dL Creatinine (0.5-1.4) mg/dL Estim Creat Clear Calc Estimated GFR POC Glucose (60-115) mg/dL Random Glucose (60-115) mg/dL Lactic Acid (0.5-2.0) mmol/L Lactic Acid Fup @ 2Hr (0.5-2.0) mmol/L Lactic Acid Fup @ 4Hr (0.5-2.0) mmol/L Calcium (8.4-10.2) mg/dL Magnesium (1.6-2.6) mg/dL Total Bilirubin (0.0-1.0) mg/dL Direct Bilirubin (0.0-0.5) mg/dL AST (5-31) U/L ALT (0-31) U/L Alkaline Phosphatase (39-117) U/L Ammonia 35 (13-55) umol/L Troponin I High Sens (<3.5-17.0) ng/L B-Natriuretic Peptide (<100) pg/mL Total Protein (6.5-8.0) g/dL Albumin (3.5-5.0) g/dL Lipase (8-78) U/L TSH (0.32-4.0) uIU/mL Urine Color Urine Appearance Urine pH (5.0-8.0) Ur Specific [place] (1.005-1.025) Urine Protein (NEG-TRACE) MG/DL Urine Glucose (UA) (NEG) MG/DL Urine Ketones (NEG) MG/DL Urine Blood (NEG) Urine Nitrite (NEG) Ur Leukocyte Esterase (NEG) Stool Occult Blood (NEGATIVE) Urine Opiates Screen (Not Detect) Urine Fentanyl Screen (Not Detect) Acetaminophen (<30) mcg/mL Ur Barbiturates Screen (Not Detect) Ur Phencyclidine Scrn (Not Detect) Ur Amphetamines Screen (Not Detect) U Benzodiazepines Scrn (Not Detect) Urine Cocaine Screen (Not Detect) U Marijuana (THC) Screen (Not Detect) COVID-19 (ELO) Negative (Negative) COVID-19 Clin Com See Note 12/10/20 12/10/20 12/10/20 Range/Units 22:31 22:41 22:41 WBC (4.8-10.8) X10*3/uL RBC (4.20-5.50) X10*6/uL Hgb (12.0-16.0) g/dl Hct (37.0-47.0) % MCV (80.0-98.0) fL MCH (27.0-33.0) pg MCHC (31.0-35.0) g/dl RDW (11.0-16.0) % Plt Count (160-400) X10*3/uL MPV (9.4-12.3) fL Immature Gran % (Auto) (0.0-0.4) % Neut % (Auto) (45-73) % Lymph % (Auto) (20-40) % [place] % (Auto) (2-11) % Eos % (Auto) (0-4) % Baso % (Auto) (0-2) % Lymph # (Auto) (1.2-4.9) X10*3/uL [place] # (Auto) (0.1-1.2) X10*3/uL Eos # (Auto) (0.0-0.4) X10*3/uL Baso # (Auto) (0.0-0.2) X10*3/uL Abs Immat Gran (auto) (0.00-0.03) X10*3/uL Absolute Neuts (auto) (2.0-8.3) x10*3/uL Absolute Nucleated RBC (0.0-0.012) X10*3/uL Nucleated RBC % (auto) (0.0-0.2) /100WBC PT (9.9-13.0) SEC INR (0.9-1.1) VBG pH (7.32-7.43) VBG pCO2 mmHg VBG pO2 mmHg VBG HCO3 (22-26) mmol/L VBG O2 Saturation % VBG Base Excess mmol/L Sodium (135-145) mmol/L Potassium (3.3-5.1) mmol/L Chloride (96-108) mmol/L Carbon Dioxide (22-29) mmol/L Anion Gap (12-20) BUN (9-16) mg/dL Creatinine (0.5-1.4) mg/dL Estim Creat Clear Calc Estimated GFR POC Glucose (60-115) mg/dL Random Glucose (60-115) mg/dL Lactic Acid (0.5-2.0) mmol/L Lactic Acid Fup @ 2Hr (0.5-2.0) mmol/L Lactic Acid Fup @ 4Hr (0.5-2.0) mmol/L Calcium (8.4-10.2) mg/dL Magnesium (1.6-2.6) mg/dL Total Bilirubin (0.0-1.0) mg/dL Direct Bilirubin (0.0-0.5) mg/dL AST (5-31) U/L ALT (0-31) U/L Alkaline Phosphatase (39-117) U/L Ammonia (13-55) umol/L Troponin I High Sens (<3.5-17.0) ng/L B-Natriuretic Peptide (<100) pg/mL Total Protein (6.5-8.0) g/dL Albumin (3.5-5.0) g/dL Lipase (8-78) U/L TSH (0.32-4.0) uIU/mL Urine Color DK YELLOW Urine Appearance CLEAR Urine pH 6.0 (5.0-8.0) Ur Specific [place] 1.010 (1.005-1.025) Urine Protein TRACE (NEG-TRACE) MG/DL Urine Glucose (UA) NEG (NEG) MG/DL Urine Ketones NEG (NEG) MG/DL Urine Blood NEG (NEG) Urine Nitrite NEG (NEG) Ur Leukocyte Esterase NEG (NEG) Stool Occult Blood POSITIVE (NEGATIVE) Urine Opiates Screen POSITIVE H (Not Detect) Urine Fentanyl Screen Not Detected (Not Detect) Acetaminophen (<30) mcg/mL Ur Barbiturates Screen Not Detected (Not Detect) Ur Phencyclidine Scrn Not Detected (Not Detect) Ur Amphetamines Screen Not Detected (Not Detect) U Benzodiazepines Scrn Not Detected (Not Detect) Urine Cocaine Screen Not Detected (Not Detect) U Marijuana (THC) Screen Not Detected (Not Detect) COVID-19 (ELO) (Negative) COVID-19 Clin Com 12/11/20 12/11/20 12/11/20 Range/Units 00:42 00:42 02:11 WBC (4.8-10.8) X10*3/uL RBC (4.20-5.50) X10*6/uL Hgb 11.5 L (12.0-16.0) g/dl Hct 35.2 L (37.0-47.0) % MCV (80.0-98.0) fL MCH (27.0-33.0) pg MCHC (31.0-35.0) g/dl RDW (11.0-16.0) % Plt Count (160-400) X10*3/uL MPV (9.4-12.3) fL Immature Gran % (Auto) (0.0-0.4) % Neut % (Auto) (45-73) % Lymph % (Auto) (20-40) % [place] % (Auto) (2-11) % Eos % (Auto) (0-4) % Baso % (Auto) (0-2) % Lymph # (Auto) (1.2-4.9) X10*3/uL [place] # (Auto) (0.1-1.2) X10*3/uL Eos # (Auto) (0.0-0.4) X10*3/uL Baso # (Auto) (0.0-0.2) X10*3/uL Abs Immat Gran (auto) (0.00-0.03) X10*3/uL Absolute Neuts (auto) (2.0-8.3) x10*3/uL Absolute Nucleated RBC (0.0-0.012) X10*3/uL Nucleated RBC % (auto) (0.0-0.2) /100WBC PT (9.9-13.0) SEC INR (0.9-1.1) VBG pH (7.32-7.43) VBG pCO2 mmHg VBG pO2 mmHg VBG HCO3 (22-26) mmol/L VBG O2 Saturation % VBG Base Excess mmol/L Sodium (135-145) mmol/L Potassium (3.3-5.1) mmol/L Chloride (96-108) mmol/L Carbon Dioxide (22-29) mmol/L Anion Gap (12-20) BUN (9-16) mg/dL Creatinine (0.5-1.4) mg/dL Estim Creat Clear Calc Estimated GFR POC Glucose (60-115) mg/dL Random Glucose (60-115) mg/dL Lactic Acid (0.5-2.0) mmol/L Lactic Acid Fup @ 2Hr 2.5 H* (0.5-2.0) mmol/L Lactic Acid Fup @ 4Hr (0.5-2.0) mmol/L Calcium (8.4-10.2) mg/dL Magnesium (1.6-2.6) mg/dL Total Bilirubin (0.0-1.0) mg/dL Direct Bilirubin (0.0-0.5) mg/dL AST (5-31) U/L ALT (0-31) U/L Alkaline Phosphatase (39-117) U/L Ammonia (13-55) umol/L Troponin I High Sens 38.5 H* (<3.5-17.0) ng/L B-Natriuretic Peptide (<100) pg/mL Total Protein (6.5-8.0) g/dL Albumin (3.5-5.0) g/dL Lipase (8-78) U/L TSH (0.32-4.0) uIU/mL Urine Color Urine Appearance Urine pH (5.0-8.0) Ur Specific [place] (1.005-1.025) Urine Protein (NEG-TRACE) MG/DL Urine Glucose (UA) (NEG) MG/DL Urine Ketones (NEG) MG/DL Urine Blood (NEG) Urine Nitrite (NEG) Ur Leukocyte Esterase (NEG) Stool Occult Blood (NEGATIVE) Urine Opiates Screen (Not Detect) Urine Fentanyl Screen (Not Detect) Acetaminophen (<30) mcg/mL Ur Barbiturates Screen (Not Detect) Ur Phencyclidine Scrn (Not Detect) Ur Amphetamines Screen (Not Detect) U Benzodiazepines Scrn (Not Detect) Urine Cocaine Screen (Not Detect) U Marijuana (THC) Screen (Not Detect) COVID-19 (ELO) (Negative) COVID-19 Clin Com 12/11/20 12/11/20 Range/Units 03:34 03:34 WBC (4.8-10.8) X10*3/uL RBC (4.20-5.50) X10*6/uL Hgb (12.0-16.0) g/dl Hct (37.0-47.0) % MCV (80.0-98.0) fL MCH (27.0-33.0) pg MCHC (31.0-35.0) g/dl RDW (11.0-16.0) % Plt Count (160-400) X10*3/uL MPV (9.4-12.3) fL Immature Gran % (Auto) (0.0-0.4) % Neut % (Auto) (45-73) % Lymph % (Auto) (20-40) % [place] % (Auto) (2-11) % Eos % (Auto) (0-4) % Baso % (Auto) (0-2) % Lymph # (Auto) (1.2-4.9) X10*3/uL [place] # (Auto) (0.1-1.2) X10*3/uL Eos # (Auto) (0.0-0.4) X10*3/uL Baso # (Auto) (0.0-0.2) X10*3/uL Abs Immat Gran (auto) (0.00-0.03) X10*3/uL Absolute Neuts (auto) (2.0-8.3) x10*3/uL Absolute Nucleated RBC (0.0-0.012) X10*3/uL Nucleated RBC % (auto) (0.0-0.2) /100WBC PT (9.9-13.0) SEC INR (0.9-1.1) VBG pH (7.32-7.43) VBG pCO2 mmHg VBG pO2 mmHg VBG HCO3 (22-26) mmol/L VBG O2 Saturation % VBG Base Excess mmol/L Sodium (135-145) mmol/L Potassium (3.3-5.1) mmol/L Chloride (96-108) mmol/L Carbon Dioxide (22-29) mmol/L Anion Gap (12-20) BUN (9-16) mg/dL Creatinine (0.5-1.4) mg/dL Estim Creat Clear Calc Estimated GFR POC Glucose (60-115) mg/dL Random Glucose (60-115) mg/dL Lactic Acid (0.5-2.0) mmol/L Lactic Acid Fup @ 2Hr (0.5-2.0) mmol/L Lactic Acid Fup @ 4Hr 1.4 (0.5-2.0) mmol/L Calcium (8.4-10.2) mg/dL Magnesium (1.6-2.6) mg/dL Total Bilirubin (0.0-1.0) mg/dL Direct Bilirubin (0.0-0.5) mg/dL AST (5-31) U/L ALT (0-31) U/L Alkaline Phosphatase (39-117) U/L Ammonia (13-55) umol/L Troponin I High Sens (<3.5-17.0) ng/L B-Natriuretic Peptide (<100) pg/mL Total Protein (6.5-8.0) g/dL Albumin (3.5-5.0) g/dL Lipase (8-78) U/L TSH (0.32-4.0) uIU/mL Urine Color Urine Appearance Urine pH (5.0-8.0) Ur Specific [place] (1.005-1.025) Urine Protein (NEG-TRACE) MG/DL Urine Glucose (UA) (NEG) MG/DL Urine Ketones (NEG) MG/DL Urine Blood (NEG) Urine Nitrite (NEG) Ur Leukocyte Esterase (NEG) Stool Occult Blood (NEGATIVE) Urine Opiates Screen (Not Detect) Urine Fentanyl Screen (Not Detect) Acetaminophen 5 (<30) mcg/mL Ur Barbiturates Screen (Not Detect) Ur Phencyclidine Scrn (Not Detect) Ur Amphetamines Screen (Not Detect) U Benzodiazepines Scrn (Not Detect) Urine Cocaine Screen (Not Detect) U Marijuana (THC) Screen (Not Detect) COVID-19 (ELO) (Negative) COVID-19 Clin Com Imaging Data Chest x-ray: Radiologist's impression: FINDINGS: Dual lead left pectoral pacemaker is unchanged. Cardiac leads overlie the chest. There are new alveolar airspace opacities throughout the left lung, more pronounced at the base. A few patchy airspace opacities are suspected in the right upper lobe. No pneumothorax or pleural effusion. Cardiac and mediastinal contours are normal. Calcific atherosclerosis is present in the thoracic aorta. XR/XR chest 1V IMPRESSION: New multifocal left long consolidation and questionable early consolidation in the right lung, concerning for asymmetric pulmonary edema given the relatively sudden onset. Aspiration is less likely given the distribution. Pneumonia is also on the differential. CT scan - abdomen: Radiologist's impression: FINDINGS: LUNG BASES: Dense consolidation at the left lung base. Heart size is enlarged. Pacemaker leads in the heart.? LIVER, GALLBLADDER, AND BILIARY TREE: The liver is normal in size, shape, and attenuation. No focal hepatic lesion or biliary ductal dilatation is present. The gallbladder is unremarkable with no evidence of radiopaque gallstones, gallbladder wall thickening, or obvious pericholecystic inflammatory changes.? PANCREAS: Pancreas is atrophic. No inflammation of the pancreas. No pancreatic mass or pancreatic duct dilatation.? SPLEEN: Unremarkable.? ADRENAL GLANDS: Unremarkable.? KIDNEYS AND URETERS: The kidneys are normal in size, shape, and attenuation. No hydronephrosis, hydroureter, or calculi seen. No perinephric stranding. ? BLADDER: Cadet catheter within the bladder. Bladder is partially filled. No bladder mass or calculus. No inflammation around the bladder.? GASTROINTESTINAL TRACT: Surgical clips right lower quadrant. There are mildly distended small bowel loops in left midabdomen with transition zone low pelvis. The terminal ileum is decompressed. Findings suggest a mild small bowel obstruction. No bowel wall thickening or edema. There is no evidence of colitis. Moderate volume of scattered stool in the colon. The appendix is not seen. Stomach unremarkable. ABDOMINAL WALL: No significant hernia is appreciated.? LYMPH NODES: Normal. VASCULAR: No change in size of the infrarenal abdominal aortic aneurysm since prior CAT scan of 2019. Aneurysm measures 3.9 cm transverse. No evidence of aneurysm leak. Recommend follow-up survey imaging of the abdominal aorta every 2 years. PELVIC VISCERA: Unremarkable.? OSSEOUS STRUCTURES: No acute osseous stability. There is multilevel degenerative spondylosis of the spine.? CT/CT abdomen pelvis w con IMPRESSION: ? 1. Consolidation at left lung base. 2. Mild small bowel dilatation consistent with mild obstruction with transition point in the low pelvis. No evidence of colitis. 3. Stable infrarenal abdominal aortic aneurysm measuring 3.9 cm. Recommend follow-up survey imaging of the abdominal aorta every 2 years.? Critical Care Time Critical Care Time Critical Care Time: Yes Total Critical Care Time: 90 Attestation: 90 minutes were spent in patient stabilization, direct patient care, consults Discharge Plan Discharge Clinical Impression: COPD (chronic obstructive pulmonary disease), Pneumonia, Respiratory failure, Acute GI bleeding, Acute alteration in mental status, Sepsis Patient Disposition: [facility] Transfer Details: [facility] Prescriptions: No Action pantoprazole 40 mg tablet,delayed release (DR/EC) 40 mg PO DAILY 30 Days Qty: 30 RF: 6 sucralfate 1 gram tablet 4 g PO BEDTIME Qty: 360 RF: 3 metoprolol succinate 100 mg tablet extended release 24 hr 50 mg PO BID RF: 0 albuterol sulfate 90 mcg/actuation HFA aerosol inhaler 2 puff inhalation Q6H PRN (Reason: dyspnea) RF: 0 simvastatin 40 mg tablet 40 mg PO DAILY RF: 0 ferrous sulfate 325 mg (65 mg iron) tablet 325 mg PO BID RF: 0 ascorbic acid (vitamin C) 500 mg tablet 500 mg PO BID RF: 0 folic acid 1 mg tablet 1 mg PO DAILY RF: 0 hydrocodone-acetaminophen 7.5-325 mg tablet 1 tab PO BID PRN (Reason: Back Pain) RF: 0 Xarelto 20 mg tablet 20 mg PO DAILY Qty: 30 RF: 5 Creon 3,000-9,500- 15,000 unit capsule,delayed release(DR/EC) 0 cap PO RF: 0 mirtazapine 15 mg tablet 15 mg PO BEDTIME RF: 0 Anoro Ellipta 62.5-25 mcg/actuation blister with device 1 inh inhalation DAILY 30 Days Qty: 60 RF: 2
[2020-12-10 21:55] LABS: B Type Natriuretic Peptide 117 pg/mL (<100); Lactic Acid 3.3 mmol/L (0.5-2.0); Troponin-I High Sensitivity 31.2 ng/L (<3.5-17.0)
[2020-12-10 22:07] LABS: TSH reflex Free T4 1.13 uIU/mL (0.32-4.0)
[2020-12-10 22:09] LABS: COVID-19 Test Negative (Negative)
[2020-12-10 22:09] LABS: Ammonia 35 umol/L (13-55)
[2020-12-10] MEDS: cefTRIAXone sodium 1 GM in 0.9 % Sodium Chloride 50 ML IV (22:10)
[2020-12-10] MEDS: Magnesium Sulfate/H2O 2 GM/50 ML PIGGYBACK IV (22:34)
[2020-12-10 22:41] LABS: OBS Int Ctl Valid YES; OBS1 POSITIVE (NEGATIVE)
[2020-12-10] MEDS: Azithromycin 500 MG in 0.9 % Sodium Chloride 250 ML 125 MG IV (22:44)
[2020-12-10 22:54] LABS: Appearance Urine CLEAR; Color Urine DK YELLOW; Glucose Urine UA NEG (NEG); Leukocyte Esterase Urine NEG (NEG); Nitrite Urine NEG (NEG); Urine Blood NEG (NEG); Urine Ketones NEG (NEG); Urine Protein TRACE MG/DL (NEG-TRACE)
--- NOTE | 2020-12-10 22:59 | PC.NURSE ---
Pt arrived unresponsive to stimuli. Heart rate tachycardia 140's. Unable to obtain O2 sat, hands and fingers noted to be very cold. O2 probe placed on ear and forehead, O2 sat still not reading. Pt placed on non-rebreather. Respiratory therapist called and remained at bedside for nebulizer treatment. Pt started to become more alert and awake during treatment, moving feet and moaning out loud. Pt placed and Bipap and tolerated well. Pt remains on Bipap at this time with O2 sat at 100%. Pt continues to tolerate Bipap well. [address] and flushing without difficulty. Pt noted to have large incontinent stool, BM soft and black, stool OB obtained. Cadet catheter placed with temperature probe, temp is 101.7. Urine noted to be dark yellow and concentrated. Skin intact. Pt alert and awake at this time, pt answering questions appropriately and noted to be oriented x4 at this time. Pt denies pain at this time. Pt able to turn from roro to side with assistance from staff. Daughter Franny remains at bedside with paimorenita. Pt resting sleeping at this time in stretcher, will continue to closely monitor.
[2020-12-10 23:06] LABS: Amphetamine Screen Urine Not Detected (Not Detect); Barbiturates, Urine Not Detected (Not Detect); Benzodiazepines Screen Urine Not Detected (Not Detect); Cannabinoid Screen Urine Not Detected (Not Detect); Cocaine Screen Urine Not Detected (Not Detect); Fentanyl, urine Not Detected (Not Detect); Opiate Screen Urine POSITIVE (Not Detect); Phencyclidine Screen Urine Not Detected (Not Detect)
[2020-12-10] MEDS: Acetaminophen 325 MG TABLET 650 MG PO (23:12)
[2020-12-10 23:28] LABS: Reflex Lactate? Lactic Acid Added
[2020-12-10] MEDS: iohexoL 350 MG/ML 100 ML INFUS..BTL 85 ML IV (23:35)
[2020-12-11] VITALS (12 sets, daily range): BP systolic 69–112; BP diastolic 46–77; PULSE 90–101; RESP 17–22; TEMP 36.9–37.7; O2SAT 97–100
[2020-12-11] MEDS: 0.9 % Sodium Chloride 1,000 ML 999 ML IVCONT ×2 (00:05→01:19)
[2020-12-11 00:46] LABS: Hematocrit 35.2 % (37.0-47.0); Hemoglobin 11.5 g/dl (12.0-16.0)
--- NOTE | 2020-12-11 00:48 | ECG_ITS ---
Test Reason : CHEST PAIN Blood Pressure : / mmHG Vent. Rate : 099 BPM Atrial Rate : 000 BPM P-R Int : 000 ms QRS Dur : 102 ms QT Int : 394 ms P-R-T Axes : 000 022 191 degrees QTc Int : [address] & T wave abnormality, consider lateral ischemia Prolonged QT Abnormal ECG When compared with ECG of 10-DEC-2020 21:00, Heart rate has decreased ST less depressed in Lateral leads Nonspecific T wave abnormality has replaced inverted T waves in Inferior leads Referred By: Shruthi Calderon Electronically Signed By:SHEILA ANDREWS MD
--- NOTE | 2020-12-11 00:56 | PC.NURSE ---
Pt alert and oriented x4, calm and cooperative forgetful at times. Pt denies pain. Pt states I feel much better . Pt denies SOB at rest at this time, pt remains on bed rest at this time. Pt taken off Bipap and on 8 liters O2 nasal cannula and tolerating well. 2 Iv's remain intact. Cadet catheter continues to have dark yellow concentrated urine. Pt resting asleep in stretcher at this time, will continue to monitor.
[2020-12-11 00:57] LABS: ~Lactic Acid-LAB USE ONLY 2.5 mmol/L (0.5-2.0)
[2020-12-11 02:45] LABS: Reflex Lactate? 2 Y
[2020-12-11 02:47] LABS: Troponin-I High Sensitivity 38.5 ng/L (<3.5-17.0)
--- NOTE | 2020-12-11 02:48 | PC.NURSE ---
REACHED OUT TO [facility] @ [id number] AND WAS DECLINED FOR TRANSFER. REACHED OUT TO [facility] @ DR KUO REQUEST. WAITING FOR A CALL BACK
--- NOTE | 2020-12-11 02:51 | PC.NURSE ---
[facility] DECLINED TRANSFER STATING WILL CALL IN AM IF SOMETHING CHANGES
--- NOTE | 2020-12-11 03:18 | PC.NURSE ---
CONTACTED [facility] @ [id number]. SPOKE WITH COPY MESSENGER AND WAS TOLD SHE WILL LOOK INTO THINGS AND CALL ME BACK IN A FEW MINUTES
--- NOTE | 2020-12-11 03:31 | PC.NURSE ---
[facility] DECLINED
--- NOTE | 2020-12-11 03:46 | PC.NURSE ---
SPOKE WITH [facility], WHO THEN SPOKE WITH DR KUO. STATES [facility] HAS NO ICU BEDS AT THE MOMENT, BUT WILL REACH OUT TO OTHER FACILITIES AND CALL BACK.
[2020-12-11 03:50] LABS: ~Lactic Acid-LAB USE ONLY 1.4 mmol/L (0.5-2.0)
[2020-12-11 04:00] LABS: Acetaminophen LAB 5 mcg/mL (<30)
--- NOTE | 2020-12-11 05:07 | PC.NURSE ---
Pt alert and oriented x4, calm and cooperative, forgetful at times. Pt denies pain. Pt denies SOB at rest. Pt remains on 8 liters Booth nasal cannula at this time, O2 sat at 100%. Pt temp 98.4 core temp, heart rate at 93, respirations 19, BP 99/74 on Levophed drip with rate at 0.11mcg/kg/min at this time. Pt tolerated drip well. Triple lumen central line in right subclavian vein intact and all lumens flush without issues and blood return noted. Pt tolerated central line catheter placement well by MD Calderon, location confirmed by x-ray. Additional 2 IV's remain intact, not in use at this time. Abdi catheter with temperature probe remains in place draining tea colored urine, 1500ml urine output from abdi catheter measured. Pt aware of transfer and agrees to plan. Pt daughter Franny remains at bedside, also agrees to transfer plan. [facility] to take patient, report given to transport.
== END 2020-12-11 05:19 | disposition short-term general hospital (02) ==
PROVIDERS: Emergency Provider Emergency Medicine
DX: A41.9 Sepsis, unspecified organism (principal); J18.9 Pneumonia, unspecified organism; J96.90 Respiratory failure, unspecified, unspecified whether with hypoxia or hypercapnia; K92.2 Gastrointestinal hemorrhage, unspecified; I10 Essential (primary) hypertension; I48.19 Other persistent atrial fibrillation; Z79.01 Long term (current) use of anticoagulants; Z79.899 Other long term (current) drug therapy; Z95.0 Presence of cardiac pacemaker; Z20.822 Contact with and (suspected) exposure to COVID-19
CPT/HCPCS: 36415; 36556; 71045; 74177; 80048; 80076; 80143; 80307; 81003; 82140; 82272; 82803; 82947; 83605; 83690; 83735; 83880; 84443; 84484; 85014; 85018; 85025; 85610; 87040; 87205; 87635; 93005; 94640; 94644; 94660; 96361; 96365; 96366; 96367; 96368; 96375; 96376; 99285; 99291; 99292; J0456; J0696; J2930; J3475; Q9967

== ENCOUNTER 2020-12-31 16:16 | Emergency (ER) | payer MEDICARE, SELFPAY ==
[2020-12-31] VITALS (8 sets, daily range): BP systolic 115–136; BP diastolic 74–92; PULSE 99–108; RESP 18–31; TEMP 36.6–36.8; O2SAT 92–100; BMI 30.1
--- NOTE | ~2020-12-31 | XR_ITS ---
EXAMINATION: XR CHEST CLINICAL INFORMATION: Shortness of breath. COMPARISON: Chest radiograph dated from 12/11/2020. TECHNIQUE: AP view of the chest was obtained. FINDINGS: Left-sided pacer/AICD with leads projecting over the right atrium and right ventricle in similar positioning to prior. Stable appearance of the cardiomediastinal silhouette. Decrease airspace opacities in the left mid lung and left lung base with similar interstitial prominence. No pleural effusion or pneumothorax. Chronic appearing right-sided fifth rib fracture. No acute osseous findings. XR/XR chest 1V IMPRESSION: Decreased airspace opacities in the left mid lung and left lung base. No new focal airspace opacities. No pleural effusion or pneumothorax.
--- NOTE | ~2020-12-31 | CT_ITS ---
EXAMINATION: CT ABDOMEN AND PELVIS WITH CONTRAST CLINICAL INFORMATION: Pain. COMPARISON: CT abdomen dated from 12/10/2020. TECHNIQUE: Multidetector volumetric images were obtained from the superior aspect of the liver through the pubic symphysis following administration 85 mL of Omnipaque 350 intravenous contrast. Sagittal and coronal reformatted images were obtained on the technologist's workstation. Oral contrast: No This CT examination was performed using dose optimization techniques as appropriate, variously including the following: *Automated exposure control *Adjustment of mA and/or kV according to patient size (this includes techniques or standardized protocols for targeted exams where dose is matched to indication/reason for exam; i.e. extremities or head) *Use of iterative reconstruction technique DLP: 904 mGy-cm FINDINGS: LUNG BASES: There are decreased airspace opacities in the left lower lobe and lingula. Please refer to same-day CT of the chest for additional details. LIVER, GALLBLADDER, AND BILIARY TREE: The liver is normal in size, shape, and attenuation. No focal hepatic lesion or biliary ductal dilatation is present. The gallbladder is unremarkable with no evidence of radiopaque gallstones, gallbladder wall thickening, or obvious pericholecystic inflammatory changes. PANCREAS: Unremarkable. SPLEEN: Unremarkable. ADRENAL GLANDS: Unremarkable. KIDNEYS AND URETERS: lobation and thinning of the cortex bilaterally. There is new moderate right hydroureteronephrosis up to the right ureterovesical junction without discrete calculi. There is also mild new left hydroureteronephrosis extending up to the level of the urinary bladder without obstructive calculi. There is mild left greater than right perinephric fat stranding. No suspicious focal parenchymal abnormalities. BLADDER: Significantly distended without wall thickening or pericecal fat stranding. No intraluminal calculi. GASTROINTESTINAL TRACT: There is increase dilatation of multiple fluid-filled loops of small bowel with possible multiple transition points in the lower abdomen where there is mild hyperemia and luminal narrowing of several loops of bowel (for instance images 56, 60, 62 of series 15). The terminal ileum is filled with fecal material without wall thickening or surrounding inflammatory changes. There is moderate stool burden in the proximal colon. The descending colon, sigmoid colon and rectum are underdistended. There are no pericolic inflammatory changes. ABDOMINAL WALL: No significant hernia is appreciated. LYMPH NODES: No lymphadenopathy by size criteria. VASCULAR: Redemonstration of an infrarenal abdominal aorta aneurysm measuring up to 3.9 cm and unchanged. PELVIC VISCERA: Multiple surgical clips are redemonstrated in both iliac chains. Hysterectomy. No adnexal lesions. OSSEOUS STRUCTURES: No acute or aggressive osseous abnormalities. Multilevel degenerative changes. CT/CT abdomen pelvis w con IMPRESSION: 1. Increase dilatation of multiple loops of small bowel worrisome for progression of small bowel obstruction. A single definite transition point is not identified. There are however several areas of luminal narrowing with slight hyperemia in the lower abdomen. 2. New moderate right hydroureteronephrosis and mild left hydroureteronephrosis up to the level of the insertion within the urinary bladder without discrete calculi or obstructive abnormalities. The bladder is significantly distended and this could potentially represent reflux. 3. Stable infrarenal abdominal aortic aneurysm measuring 3.9 cm. Recommend follow-up survey imaging every 2 years is asymptomatic. 4. Decrease airspace opacities in the left lower lobe. Recommend correlation with same-day CT of the chest.
--- NOTE | ~2020-12-31 | CT_ITS ---
EXAMINATION: CT ANGIOGRAM OF THE CHEST WITH AND WITHOUT CONTRAST (CT PULMONARY ANGIOGRAM FOR PE) CLINICAL INFORMATION: Shortness of breath. Tachypnea. COMPARISON: Multiple priors, most recent chest radiograph done earlier the same day. TECHNIQUE: Prior to contrast administration, noncontrast localization images were obtained. Subsequently, multidetector volumetric imaging was performed from the thoracic inlet to below the diaphragms following the administration of 85 mL Omnipaque 350 intravenous contrast. No contrast reaction reported. Sagittal, coronal, and MIP oblique sagittal reformatted images were obtained on the CT workstation, uploaded to PACS, and reviewed. This CT examination was performed using dose optimization techniques as appropriate, variously including the following: *Automated exposure control *Adjustment of mA and/or kV according to patient size (this includes techniques or standardized protocols for targeted exams where dose is matched to indication/reason for exam; i.e. extremities or head) *Use of iterative reconstruction technique Total exam dose-length product 371 mGy-cm. FINDINGS: QUALITY OF STUDY/CONTRAST BOLUS: Satisfactory. PULMONARY ARTERIES: No central or segmental pulmonary emboli. THORACIC AORTA: No aneurysm or dissection. LUNG: Patchy left upper and lower lobe airspace opacities, consistent with multifocal pneumonia. Multiple right-sided noncalcified pulmonary nodules measuring up to 0.5 cm along the right minor fissure. No large pulmonary mass. The central airways are patent. PLEURA: No pleural effusion or pneumothorax. MEDIASTINUM: Normal heart size. No pericardial effusion. No hilar or mediastinal lymphadenopathy. No evidence of septal bowing or right heart strain. CHEST WALL/AXILLA: Left chest wall pacer with its leads in the right heart. OSSEOUS STRUCTURES: No acute or suspicious osseous abnormality. UPPER ABDOMEN: Unremarkable. No reflux of contrast into the hepatic veins to suggest elevated right heart pressures. CT/CT angio chest PE protocol IMPRESSION: 1. No CT angiographic evidence of acute pulmonary embolism. 2. Patchy left upper and lower lobe airspace opacities, consistent with multifocal pneumonia. 3. Multiple right-sided pulmonary nodules measuring up to 0.5 cm. According to the UPDATED 2017 Fleischner Society recommendations, the advised follow-up imaging for solid nodules < 6 mm is: LOW RISK PATIENT: No routine follow-up. HIGH RISK PATIENT: Optional CT at 12 months. VTE: Negative
--- NOTE | 2020-12-31 16:40 | ECG_ITS ---
Test Reason : dyspnea Blood Pressure : / mmHG Vent. Rate : 099 BPM Atrial Rate : 000 BPM P-R Int : 000 ms QRS Dur : 080 ms QT Int : 338 ms P-R-T Axes : 000 008 156 degrees QTc Int : [address] & T wave abnormality, consider lateral ischemia Abnormal ECG When compared with ECG of 11-DEC-2020 00:48, QRS duration has decreased Nonspecific T wave abnormality no longer evident in Inferior leads QT has shortened Referred By: Jaki Barksdale Electronically Signed By:SHEILA ANDREWS MD
[2020-12-31] MEDS: Albuterol Sulfate (0.083%) 2.5 MG/3 ML VIAL.NEB 5 MG INHALE (16:59)
[2020-12-31 17:12] LABS: Hematocrit 37.4 % (37.0-47.0); Hemoglobin 12.1 g/dl (12.0-16.0); Mean Corpuscular HGB Conc 32.4 g/dl (31.0-35.0); Mean Corpuscular Hemoglobin 29.2 pg (27.0-33.0); Mean Corpuscular Volume 90.3 fL (80.0-98.0); Mean Platelet Volume 9.7 fL (9.4-12.3); NRBC Pct Auto 0.1 /100WBC (0.0-0.2); Platelet Count 313 X10*3/uL (160-400); Red Blood Count 4.14 X10*6/uL (4.20-5.50); Red Cell Distribution Width 15.6 % (11.0-16.0); White Blood Count 23.9 X10*3/uL (4.8-10.8)
[2020-12-31 17:14] LABS: Venous Blood Gas Refer to POC result
[2020-12-31 17:15] LABS: VBG Base Excess -8.7 mmol/L; VBG HCO3 15 mmol/L (22-26); VBG pCO2 27 mmHg; VBG pH 7.34 (7.32-7.43); VBG pO2 85 mmHg
[2020-12-31] MEDS: Piperacillin Sodium/Tazobactam 3.375 GM in 0.9 % Sodium Chloride 50 ML IV (17:23)
[2020-12-31 17:26] LABS: INTERNATIONAL NORM RATIO 1.8 (0.9-1.1); Prothrombin Time 20.7 SEC (9.9-13.0)
[2020-12-31 17:31] LABS: Lactic Acid 2.8 mmol/L (0.5-2.0)
[2020-12-31 17:34] LABS: B Type Natriuretic Peptide 120 pg/mL (<100)
--- NOTE | 2020-12-31 17:34 | ED.SOB ---
HPI - SOB/Dyspnea General Chief Complaint: Recheck/Abnormal Lab/Rx Stated Complaint: Difficulty breathing/Abnormal labs Time Seen by Provider: 12/31/20 16:28 Source: patient and family (Daughter) Mode of arrival: ambulatory History of Present Illness HPI Narrative: 70-year-old female with history of COPD, chronic atrial fibrillation, hypertension, pacemaker presents with worsening shortness of breath for the past week and recently completed a steroid taper since 12/22. Patient otherwise denies fever, chills, nausea, vomiting, new cough, lower leg swelling, or history heart failure or fluid on the lungs. Related Data Home Medications Medication Instructions Recorded Confirmed albuterol sulfate 90 mcg/actuation 2 puff INHALATION Q6H PRN 04/07/20 12/10/20 aerosol inhaler ascorbic acid (vitamin C) 500 mg 500 mg PO BID 04/07/20 12/10/20 tablet ferrous sulfate 325 mg (65 mg 325 mg PO BID 04/07/20 12/10/20 iron) tablet folic acid 1 mg tablet 1 mg PO DAILY 04/07/20 12/10/20 simvastatin 40 mg tablet 40 mg PO DAILY 04/07/20 12/10/20 hydrocodone 7.5 mg-acetaminophen 1 tab PO BID PRN 07/21/20 12/10/20 325 mg tablet lipase 3,000-protease 0 cap PO 11/26/20 12/01/20 9,500-amylase 15,000 unit capsule, delayed rel (Creon) mirtazapine 15 mg tablet 15 mg PO BEDTIME 11/26/20 12/10/20 metoprolol succinate 100 mg 50 mg PO BID 12/10/20 12/10/20 tablet,extended release 24 hr Previous Rx's Medication Instructions Recorded pantoprazole 40 mg tablet,delayed 40 mg PO DAILY 30 Days #30 tab 02/06/20 release sucralfate 1 gram tablet 4 g PO BEDTIME #360 tab 02/06/20 umeclidinium 62.5 mcg-vilanterol 1 inh INHALATION DAILY 30 Days #60 11/26/20 25 mcg/actuation powdr for ea inhalation (Anoro Ellipta) rivaroxaban 20 mg tablet (Xarelto) 20 mg PO DAILY #30 tab 12/01/20 Allergies Allergy/AdvReac Type Severity Reaction Status Date / Time No Known Allergies Allergy Verified 12/31/20 16:18 [No Known Allergies*] Review of Systems Review of Systems: Pertinent positives and negatives as stated in HPI 10 point review of systems is otherwise negative. [facility] Past Medical History Source: nursing notes reviewed Medical History Cardiac pacemaker in situ COPD (chronic obstructive pulmonary disease) Dyspnea on exertion GERD (gastroesophageal reflux disease) HTN (hypertension) Hypertension Persistent atrial fibrillation Sick sinus syndrome Surgical History History of cardioversion History of radiofrequency ablation (RFA) for complex left atrial arrhythmia Hx of cardiac pacemaker Hx of hysterectomy Family History Family History Father CHF (congestive heart failure) Cancer Pacemaker Mother Emphysema lung Social History Social History Alcohol intake: never Patient Tobacco Use Status: Never used Tobacco Use of substances other than those prescribed or required for medical reasons: No Advance Directives: No Advance Directives Information Provided: No Physical Exam Vital Signs: Vital Signs: Last Vital Signs Temp 97.8 F 12/31/20 22:52 Pulse 100 12/31/20 22:52 Resp 18 12/31/20 22:52 BP 115/80 12/31/20 22:52 Pulse Ox 98 12/31/20 22:52 Body Mass Index 30.1 VITAL SIGNS: Reviewed. GENERAL: Well developed, well nourished, in no acute distress. HEAD: Normocephalic/atraumatic EYES: PERRLA, EOMI EARS: Ext canals without abnormality, TMs non-bulging and non-erythematous NOSE: Nares patent bilateral OROPHARYNX: no oral lesions noted, posterior pharynx clear NECK: Supple, no adenopathy LUNGS: Decreased breath sounds on the right base, no rales/rhonchi/wheeze noted. Tachypnea present with tugging and grunting on respiring. SpO2<98> CARDIOVASCULAR: Regular rate and rhythm without noted murmurs, + JVD but no lower extremity edema. ABDOMEN: Soft, non-tender, non-distended with bowel sounds. MUSCULOSKELETAL: No tenderness, deformities, or effusions noted on gross inspection. EXTREMITIES: No cyanosis, clubbing or edema. SKIN: Inspection of the skin reveals no rashes NEUROLOGIC: Alert and oriented x 4. Strength and sensation to light touch were grossly intact x 4. Course Course Course Narrative: 70-year-old female with history and clinical presentation consistent with acute respiratory symptoms VBG in consistent with COPD exacerbation and BNP mildly elevated at 120 with chest x-ray negative for pleural effusions/infiltrates/pneumothorax. Quick bedside ultrasound inconsistent with pericardial effusion, however B lines on lung examination consistent with CHF exacerbation. After patient was placed on BiPAP and reassessed she is noted to have increase comfort of breathing with reduced work and tachypnea. All investigations reviewed on this patient in although there are findings of multifocal pneumonia the procalcitonin level is negligible and the leukocytosis that is noted is thought to be more consistent with recent steroids, stress response. In addition, patient was noted to have a significantly distended bladder for which she underwent Cadet catheterization for 1800 cc without evidence of infection on evaluation. On reassessment after Cadet catheter placement patient endorses that she is feeling much better and on clinical exam is noted to have significantly improved respirations. It is noted that on CT scan there was discussion of ?small bowel obstruction? patient adamantly reports that she is having bowel movements every day and the CT scan does state that a definitive transition point is not identified. That finding in conjunction with right-sided hydronephrosis is likely consistent with patient's urinary retention and will likely resolve. Planned to admit the patient for re-evaluation and to ensure stabilization of both the lactic acid as well as possible trial of void, however patient adamantly refuses admission. Patient is alert and oriented in all risks and benefits were discussed with her regarding discharge to home as opposed to admission with observation, but patient declines. Otherwise, patient is noted to be hemodynamically stable, oxygenating well on room air, and initial tachypnea has resolved. She remains afebrile. MDM - SOB/Dyspnea Lab Data Result diagrams: 12/31/20 17:04 12/31/20 17:04 Labs: Lab Results 12/31/20 12/31/20 12/31/20 Range/Units 17:04 17:04 17:04 WBC 23.9 H (4.8-10.8) X10*3/uL RBC 4.14 L (4.20-5.50) X10*6/uL Hgb 12.1 (12.0-16.0) g/dl Hct 37.4 (37.0-47.0) % MCV 90.3 (80.0-98.0) fL MCH 29.2 (27.0-33.0) pg MCHC 32.4 (31.0-35.0) g/dl RDW 15.6 (11.0-16.0) % Plt Count 313 (160-400) X10*3/uL MPV 9.7 (9.4-12.3) fL Immature Gran % (Auto) Cancelled Neut % (Auto) Cancelled Lymph % (Auto) Cancelled [place] % (Auto) Cancelled Eos % (Auto) Cancelled Baso % (Auto) Cancelled Lymph # (Auto) Cancelled [place] # (Auto) Cancelled Eos # (Auto) Cancelled Baso # (Auto) Cancelled Abs Immat Gran (auto) Cancelled Absolute Neuts (auto) Cancelled Absolute Nucleated RBC 0.020 H (0.0-0.012) X10*3/uL Nucleated RBC % (auto) 0.1 (0.0-0.2) /100WBC Neutrophils % (Manual) 83 H (45-73) % Band Neutrophils % 8 H (3-5) % Lymphocytes % (Manual) 2 L (20-40) % Atypical Lymphs % (Man) 1 (0-6) % Monocytes % (Manual) 4 (2-11) % Metamyelocytes % 2 % Abs Neuts (Manual) 21.7 H (2.0-8.3) X10*3/uL Lymphocytes # (Manual) 0.5 L (1.2-4.9) X10*3/uL Atyp Lymphs # (Manual) 0.2 x10*3/uL Monocytes # (Manual) 1.0 (0.1-1.2) X10*3/uL Metamyelocytes # 0.5 X10*3/uL Platelet Estimate NORMAL (NORMAL) Large Platelets Plt Morphology Comment NOTED RBC Morphology NORMAL PT (9.9-13.0) SEC INR (0.9-1.1) O2 Saturation % ABG pH at Pt Temp (7.35-7.45) ABG pH (Temp Correct) (7.35-7.45) ABG pCO2 at Pt Temp (32-45) mmHg ABG pCO2 (Temp Corrct (32-45) mmHg ABG pO2 at Pt Temp (83-108) mmHg ABG pO2 (Temp Correct (83-108) ABG HCO3 (22-26) mmol/L ABG Base Excess (Actual) mmol/L VBG pH (7.32-7.43) VBG pCO2 mmHg VBG pO2 mmHg VBG HCO3 (22-26) mmol/L VBG O2 Saturation % VBG Base Excess mmol/L Sodium 138 (135-145) mmol/L Potassium 5.1 D (3.3-5.1) mmol/L Chloride 111 H (96-108) mmol/L Carbon Dioxide 15 L (22-29) mmol/L Anion Gap 17 (12-20) BUN 35 H (9-16) mg/dL Creatinine 1.05 (0.5-1.4) mg/dL Estim Creat Clear Calc 48.3 Estimated GFR 52 Random Glucose 218 H (60-115) mg/dL Lactic Acid (0.5-2.0) mmol/L Lactic Acid Fup @ 2Hr (0.5-2.0) mmol/L Calcium 8.6 D (8.4-10.2) mg/dL Magnesium 1.9 (1.6-2.6) mg/dL Total Bilirubin < 0.2 (0.0-1.0) mg/dL AST 18 D (5-31) U/L ALT 49 H (0-31) U/L Alkaline Phosphatase 94 D (39-117) U/L Troponin I High Sens (<3.5-17.0) ng/L B-Natriuretic Peptide 120 H (<100) pg/mL Total Protein 6.1 L (6.5-8.0) g/dL Albumin 3.0 L (3.5-5.0) g/dL Procalcitonin ng/mL Urine Color Urine Appearance Urine pH (5.0-8.0) Ur Specific [place] (1.005-1.025) Urine Protein (NEG-TRACE) MG/DL Urine Glucose (UA) (NEG) MG/DL Urine Ketones (NEG) MG/DL Urine Blood (NEG) Urine Nitrite (NEG) Ur Leukocyte Esterase (NEG) Acetone, Qual Negative (Negative) Influenza Type A (PCR) (Negative) Influenza Type B (PCR) (Negative) RSV RNA Qual (PCR) (Negative) SARS-CoV-2 RNA (RT-PCR) (Negative) 12/31/20 12/31/20 12/31/20 Range/Units 17:04 17:04 17:04 WBC (4.8-10.8) X10*3/uL RBC (4.20-5.50) X10*6/uL Hgb (12.0-16.0) g/dl Hct (37.0-47.0) % MCV (80.0-98.0) fL MCH (27.0-33.0) pg MCHC (31.0-35.0) g/dl RDW (11.0-16.0) % Plt Count (160-400) X10*3/uL MPV (9.4-12.3) fL Immature Gran % (Auto) Neut % (Auto) Lymph % (Auto) [place] % (Auto) Eos % (Auto) Baso % (Auto) Lymph # (Auto) [place] # (Auto) Eos # (Auto) Baso # (Auto) Abs Immat Gran (auto) Absolute Neuts (auto) Absolute Nucleated RBC (0.0-0.012) X10*3/uL Nucleated RBC % (auto) (0.0-0.2) /100WBC Neutrophils % (Manual) (45-73) % Band Neutrophils % (3-5) % Lymphocytes % (Manual) (20-40) % Atypical Lymphs % (Man) (0-6) % Monocytes % (Manual) (2-11) % Metamyelocytes % % Abs Neuts (Manual) (2.0-8.3) X10*3/uL Lymphocytes # (Manual) (1.2-4.9) X10*3/uL Atyp Lymphs # (Manual) x10*3/uL Monocytes # (Manual) (0.1-1.2) X10*3/uL Metamyelocytes # X10*3/uL Platelet Estimate (NORMAL) Large Platelets Plt Morphology Comment RBC Morphology PT 20.7 H (9.9-13.0) SEC INR 1.8 H (0.9-1.1) O2 Saturation % ABG pH at Pt Temp (7.35-7.45) ABG pH (Temp Correct) (7.35-7.45) ABG pCO2 at Pt Temp (32-45) mmHg ABG pCO2 (Temp Corrct (32-45) mmHg ABG pO2 at Pt Temp (83-108) mmHg ABG pO2 (Temp Correct (83-108) ABG HCO3 (22-26) mmol/L ABG Base Excess (Actual) mmol/L VBG pH (7.32-7.43) VBG pCO2 mmHg VBG pO2 mmHg VBG HCO3 (22-26) mmol/L VBG O2 Saturation % VBG Base Excess mmol/L Sodium (135-145) mmol/L Potassium (3.3-5.1) mmol/L Chloride (96-108) mmol/L Carbon Dioxide (22-29) mmol/L Anion Gap (12-20) BUN (9-16) mg/dL Creatinine (0.5-1.4) mg/dL Estim Creat Clear Calc Estimated GFR Random Glucose (60-115) mg/dL Lactic Acid 2.8 H* (0.5-2.0) mmol/L Lactic Acid Fup @ 2Hr (0.5-2.0) mmol/L Calcium (8.4-10.2) mg/dL Magnesium (1.6-2.6) mg/dL Total Bilirubin (0.0-1.0) mg/dL AST (5-31) U/L ALT (0-31) U/L Alkaline Phosphatase (39-117) U/L Troponin I High Sens 23.0 H* (<3.5-17.0) ng/L B-Natriuretic Peptide (<100) pg/mL Total Protein (6.5-8.0) g/dL Albumin (3.5-5.0) g/dL Procalcitonin ng/mL Urine Color Urine Appearance Urine pH (5.0-8.0) Ur Specific [place] (1.005-1.025) Urine Protein (NEG-TRACE) MG/DL Urine Glucose (UA) (NEG) MG/DL Urine Ketones (NEG) MG/DL Urine Blood (NEG) Urine Nitrite (NEG) Ur Leukocyte Esterase (NEG) Acetone, Qual (Negative) Influenza Type A (PCR) (Negative) Influenza Type B (PCR) (Negative) RSV RNA Qual (PCR) (Negative) SARS-CoV-2 RNA (RT-PCR) (Negative) 12/31/20 12/31/20 12/31/20 Range/Units 17:04 17:08 17:21 WBC (4.8-10.8) X10*3/uL RBC (4.20-5.50) X10*6/uL Hgb (12.0-16.0) g/dl Hct (37.0-47.0) % MCV (80.0-98.0) fL MCH (27.0-33.0) pg MCHC (31.0-35.0) g/dl RDW (11.0-16.0) % Plt Count (160-400) X10*3/uL MPV (9.4-12.3) fL Immature Gran % (Auto) Neut % (Auto) Lymph % (Auto) [place] % (Auto) Eos % (Auto) Baso % (Auto) Lymph # (Auto) [place] # (Auto) Eos # (Auto) Baso # (Auto) Abs Immat Gran (auto) Absolute Neuts (auto) Absolute Nucleated RBC (0.0-0.012) X10*3/uL Nucleated RBC % (auto) (0.0-0.2) /100WBC Neutrophils % (Manual) (45-73) % Band Neutrophils % (3-5) % Lymphocytes % (Manual) (20-40) % Atypical Lymphs % (Man) (0-6) % Monocytes % (Manual) (2-11) % Metamyelocytes % % Abs Neuts (Manual) (2.0-8.3) X10*3/uL Lymphocytes # (Manual) (1.2-4.9) X10*3/uL Atyp Lymphs # (Manual) x10*3/uL Monocytes # (Manual) (0.1-1.2) X10*3/uL Metamyelocytes # X10*3/uL Platelet Estimate (NORMAL) Large Platelets Plt Morphology Comment RBC Morphology PT (9.9-13.0) SEC INR (0.9-1.1) O2 Saturation % ABG pH at Pt Temp (7.35-7.45) ABG pH (Temp Correct) (7.35-7.45) ABG pCO2 at Pt Temp (32-45) mmHg ABG pCO2 (Temp Corrct (32-45) mmHg ABG pO2 at Pt Temp (83-108) mmHg ABG pO2 (Temp Correct (83-108) ABG HCO3 (22-26) mmol/L ABG Base Excess (Actual) mmol/L VBG pH 7.34 (7.32-7.43) VBG pCO2 27 mmHg VBG pO2 85 mmHg VBG HCO3 15 L (22-26) mmol/L VBG O2 Saturation 95.0 % VBG Base Excess -8.7 mmol/L Sodium (135-145) mmol/L Potassium (3.3-5.1) mmol/L Chloride (96-108) mmol/L Carbon Dioxide (22-29) mmol/L Anion Gap (12-20) BUN (9-16) mg/dL Creatinine (0.5-1.4) mg/dL Estim Creat Clear Calc Estimated GFR Random Glucose (60-115) mg/dL Lactic Acid (0.5-2.0) mmol/L Lactic Acid Fup @ 2Hr (0.5-2.0) mmol/L Calcium (8.4-10.2) mg/dL Magnesium (1.6-2.6) mg/dL Total Bilirubin (0.0-1.0) mg/dL AST (5-31) U/L ALT (0-31) U/L Alkaline Phosphatase (39-117) U/L Troponin I High Sens (<3.5-17.0) ng/L B-Natriuretic Peptide (<100) pg/mL Total Protein (6.5-8.0) g/dL Albumin (3.5-5.0) g/dL Procalcitonin 0.14 ng/mL Urine Color Urine Appearance Urine pH (5.0-8.0) Ur Specific [place] (1.005-1.025) Urine Protein (NEG-TRACE) MG/DL Urine Glucose (UA) (NEG) MG/DL Urine Ketones (NEG) MG/DL Urine Blood (NEG) Urine Nitrite (NEG) Ur Leukocyte Esterase (NEG) Acetone, Qual (Negative) Influenza Type A (PCR) NEGATIVE (Negative) Influenza Type B (PCR) NEGATIVE (Negative) RSV RNA Qual (PCR) NEGATIVE (Negative) SARS-CoV-2 RNA (RT-PCR) NEGATIVE (Negative) 12/31/20 12/31/20 12/31/20 Range/Units 17:46 20:30 21:03 WBC (4.8-10.8) X10*3/uL RBC (4.20-5.50) X10*6/uL Hgb (12.0-16.0) g/dl Hct (37.0-47.0) % MCV (80.0-98.0) fL MCH (27.0-33.0) pg MCHC (31.0-35.0) g/dl RDW (11.0-16.0) % Plt Count (160-400) X10*3/uL MPV (9.4-12.3) fL Immature Gran % (Auto) Neut % (Auto) Lymph % (Auto) [place] % (Auto) Eos % (Auto) Baso % (Auto) Lymph # (Auto) [place] # (Auto) Eos # (Auto) Baso # (Auto) Abs Immat Gran (auto) Absolute Neuts (auto) Absolute Nucleated RBC (0.0-0.012) X10*3/uL Nucleated RBC % (auto) (0.0-0.2) /100WBC Neutrophils % (Manual) (45-73) % Band Neutrophils % (3-5) % Lymphocytes % (Manual) (20-40) % Atypical Lymphs % (Man) (0-6) % Monocytes % (Manual) (2-11) % Metamyelocytes % % Abs Neuts (Manual) (2.0-8.3) X10*3/uL Lymphocytes # (Manual) (1.2-4.9) X10*3/uL Atyp Lymphs # (Manual) x10*3/uL Monocytes # (Manual) (0.1-1.2) X10*3/uL Metamyelocytes # X10*3/uL Platelet Estimate (NORMAL) Large Platelets Plt Morphology Comment RBC Morphology PT (9.9-13.0) SEC INR (0.9-1.1) O2 Saturation 99.0 % ABG pH at Pt Temp 7.41 (7.35-7.45) ABG pH (Temp Correct) 7.42 (7.35-7.45) ABG pCO2 at Pt Temp 22 L (32-45) mmHg ABG pCO2 (Temp Corrct 21 L (32-45) mmHg ABG pO2 at Pt Temp 134 H (83-108) mmHg ABG pO2 (Temp Correct 132 H (83-108) ABG HCO3 14 L (22-26) mmol/L ABG Base Excess (Actual) -8.0 mmol/L VBG pH (7.32-7.43) VBG pCO2 mmHg VBG pO2 mmHg VBG HCO3 (22-26) mmol/L VBG O2 Saturation % VBG Base Excess mmol/L Sodium (135-145) mmol/L Potassium (3.3-5.1) mmol/L Chloride (96-108) mmol/L Carbon Dioxide (22-29) mmol/L Anion Gap (12-20) BUN (9-16) mg/dL Creatinine (0.5-1.4) mg/dL Estim Creat Clear Calc Estimated GFR Random Glucose (60-115) mg/dL Lactic Acid (0.5-2.0) mmol/L Lactic Acid Fup @ 2Hr 3.3 H* (0.5-2.0) mmol/L Calcium (8.4-10.2) mg/dL Magnesium (1.6-2.6) mg/dL Total Bilirubin (0.0-1.0) mg/dL AST (5-31) U/L ALT (0-31) U/L Alkaline Phosphatase (39-117) U/L Troponin I High Sens (<3.5-17.0) ng/L B-Natriuretic Peptide (<100) pg/mL Total Protein (6.5-8.0) g/dL Albumin (3.5-5.0) g/dL Procalcitonin ng/mL Urine Color YELLOW Urine Appearance CLEAR Urine pH 6.0 (5.0-8.0) Ur Specific [place] 1.010 (1.005-1.025) Urine Protein NEG (NEG-TRACE) MG/DL Urine Glucose (UA) NEG (NEG) MG/DL Urine Ketones NEG (NEG) MG/DL Urine Blood NEG (NEG) Urine Nitrite NEG (NEG) Ur Leukocyte Esterase NEG (NEG) Acetone, Qual (Negative) Influenza Type A (PCR) (Negative) Influenza Type B (PCR) (Negative) RSV RNA Qual (PCR) (Negative) SARS-CoV-2 RNA (RT-PCR) (Negative) ECG Data Attestation: I personally reviewed and interpreted this ECG as follows: Prior ECG tracings: available for review (12/11/2020) Interpretation: Atrial fibrillation, HR-99, QRS/QTC are within normal limits. Discharge Plan Discharge Clinical Impression: CHF (congestive heart failure), Urinary retention, Physical deconditioning Patient Disposition: Left Against Medical Advice Instructions: Heart Failure (ED), Cadet Catheter Placement and Care (ED) Additional Instructions: 1. Resume all home medications as prescribed. 2. Please call the office of your primary care provider 1st thing in the morning to set up an appointment for re-evaluation and further outpatient management, especially regarding re-evaluation for your breathing. 3. You have been provided with a referral to see urology for your urinary retention. Return to the ER for acute worsening of symptoms. Prescriptions: No Action pantoprazole 40 mg tablet,delayed release (DR/EC) 40 mg PO DAILY 30 Days Qty: 30 RF: 6 sucralfate 1 gram tablet 4 g PO BEDTIME Qty: 360 RF: 3 metoprolol succinate 100 mg tablet extended release 24 hr 50 mg PO BID RF: 0 albuterol sulfate 90 mcg/actuation HFA aerosol inhaler 2 puff inhalation Q6H PRN (Reason: dyspnea) RF: 0 simvastatin 40 mg tablet 40 mg PO DAILY RF: 0 ferrous sulfate 325 mg (65 mg iron) tablet 325 mg PO BID RF: 0 ascorbic acid (vitamin C) 500 mg tablet 500 mg PO BID RF: 0 folic acid 1 mg tablet 1 mg PO DAILY RF: 0 hydrocodone-acetaminophen 7.5-325 mg tablet 1 tab PO BID PRN (Reason: Back Pain) RF: 0 Xarelto 20 mg tablet 20 mg PO DAILY Qty: 30 RF: 5 Creon 3,000-9,500- 15,000 unit capsule,delayed release(DR/EC) 0 cap PO RF: 0 mirtazapine 15 mg tablet 15 mg PO BEDTIME RF: 0 Anoro Ellipta 62.5-25 mcg/actuation blister with device 1 inh inhalation DAILY 30 Days Qty: 60 RF: 2 Referrals: Carlos Dixon MD [Physician] - 2 days (Urinary Incontinence, Cadet placed) Stand Alone Forms: Against Medical Advice Interventions: ED Discharge Assessment Last Done: 12/31/20 23:01 Discharge Date/Time: 12/31/20 23:02
[2020-12-31 17:35] LABS: Alanine Aminotransferase 49 U/L (0-31); Alkaline Phosphatase 94 U/L (39-117); Anion Gap 17 (12-20); Aspartate Amino Transferase 18 U/L (5-31); Bilirubin Total < 0.2 mg/dL (0.0-1.0); Blood Urea Nitrogen 35 mg/dL (9-16); Calcium 8.6 mg/dL (8.4-10.2); Carbon Dioxide 15 mmol/L (22-29); Chloride 111 mmol/L (96-108); Creatinine Clr Calc Pharmacy 48.3; Estimated Glomerular Filt Rate 52; Glucose Random 218 mg/dL (60-115); Magnesium 1.9 mg/dL (1.6-2.6); Potassium 5.1 mmol/L (3.3-5.1); Sodium 138 mmol/L (135-145); Total Protein 6.1 g/dL (6.5-8.0)
[2020-12-31 17:36] LABS: Atypical Lymph Absolute Manual 0.2 x10*3/uL; Atypical Lymphs Percent Manual 1 % (0-6); Band Neutrophils Percent 8 % (3-5); Lymphocytes Absolute Manual 0.5 X10*3/uL (1.2-4.9); Lymphocytes Percent Manual 2 % (20-40); Metamyelocytes Absolute 0.5 X10*3/uL; Metamyelocytes Percent 2 %; Monocytes Percent Manual 4 % (2-11); Neutrophils Absolute Manual 21.7 X10*3/uL (2.0-8.3); Neutrophils Percent Manual 83 % (45-73); Platelet Estimate NORMAL (NORMAL); Platelet Morphology Comment NOTED; RBC Morphology NORMAL
[2020-12-31 17:50] LABS: ABG Refer to POC result
[2020-12-31 17:52] LABS: ABG HCO3 14 mmol/L (22-26); ABG pCO2 22 mmHg (32-45); ABG pCO2 TC 21 mmHg (32-45); ABG pH 7.41 (7.35-7.45); ABG pH TC 7.42 (7.35-7.45); ABG pO2 134 mmHg (83-108); ABG pO2 TC 132 (83-108)
[2020-12-31 18:06] LABS: Influenza A PCR NEGATIVE (Negative); Influenza B PCR NEGATIVE (Negative); Resp Syncy Virus RNA Qual PCR NEGATIVE (Negative); SARS COV2 PCR INHOUSE NEGATIVE (Negative)
[2020-12-31 18:06] LABS: Acetone, serum QL Negative (Negative)
[2020-12-31] MEDS: Furosemide 20 MG/2 ML VIAL IVPUSH (18:14)
[2020-12-31 18:54] LABS: Procalcitonin 0.14 ng/mL
[2020-12-31 19:09] LABS: Reflex Lactate? Lactic Acid Added
--- NOTE | 2020-12-31 19:12 | PC.NURSE ---
this nurse assisted pt to bedside commode pt back in bed at this time. pt now off to CT
[2020-12-31] MEDS: iohexoL 350 MG/ML 100 ML INFUS..BTL IV (19:29)
[2020-12-31 20:47] LABS: ~Lactic Acid-LAB USE ONLY 3.3 mmol/L (0.5-2.0)
--- NOTE | 2020-12-31 20:47 | PC.NURSE ---
>999 ml when i bladder scanned pt
[2020-12-31 21:10] LABS: Appearance Urine CLEAR; Color Urine YELLOW; Glucose Urine UA NEG (NEG); Leukocyte Esterase Urine NEG (NEG); Nitrite Urine NEG (NEG); Urine Blood NEG (NEG); Urine Ketones NEG (NEG); Urine Protein NEG (NEG-TRACE)
--- NOTE | 2020-12-31 22:13 | PC.NURSE ---
this nurse went into pt room to do med rec and discuss plan for admission pt stated she wants to go home and is adamantly refusing to be admitted, pts daughter at bedside in agreement with pt MD ([place]) notified
[2020-12-31 22:35] LABS: Reflex Lactate? 2 Y
== END 2020-12-31 23:02 | disposition left against medical advice (07) ==
PROVIDERS: Emergency Provider Student in an Organized Health Care Education/Training Program
DX: I11.0 Hypertensive heart disease with heart failure (principal); I50.9 Heart failure, unspecified; R33.9 Retention of urine, unspecified; R53.81 Other malaise; R06.02 Shortness of breath; Z20.822 Contact with and (suspected) exposure to COVID-19; J44.9 Chronic obstructive pulmonary disease, unspecified; I48.20 Chronic atrial fibrillation, unspecified; I10 Essential (primary) hypertension; Z95.0 Presence of cardiac pacemaker
CPT/HCPCS: 0241U; 36415; 51702; 71045; 71275; 74177; 80053; 81003; 82009; 82803; 83605; 83735; 83880; 84145; 84484; 85007; 85027; 85610; 87040; 93005; 94640; 94660; 96365; 96375; 99285; J1940; J2543; Q9967

== ENCOUNTER → 2021-01-07 10:37 | Outpatient (BNVA) | payer MEDICARE, SELFPAY | PROVIDERS: PCP Registered Nurse; Visit Provider Internal Medicine | DX: J44.9 Chronic obstructive pulmonary disease, unspecified (principal); I48.19 Other persistent atrial fibrillation; J18.9 Pneumonia, unspecified organism; R09.02 Hypoxemia | CPT/HCPCS: 99212 ==

== ENCOUNTER → 2021-01-11 15:01 | Outpatient (BNVA) | payer MEDICARE, SELFPAY | PROVIDERS: PCP Registered Nurse; Visit Provider Internal Medicine Cardiovascular Disease | DX: Z45.018 Encounter for adjustment and management of other part of cardiac pacemaker (principal); I48.19 Other persistent atrial fibrillation; J96.10 Chronic respiratory failure, unspecified whether with hypoxia or hypercapnia | CPT/HCPCS: 99212 ==

== ENCOUNTER → 2021-01-12 12:57 | Outpatient (BNVA) | payer MEDICARE, SELFPAY | PROVIDERS: PCP Registered Nurse; Visit Provider Internal Medicine Gastroenterology | DX: R19.7 Diarrhea, unspecified (principal) | CPT/HCPCS: 99212 ==

== ENCOUNTER → 2021-01-15 13:15 | Outpatient (BNVA) | payer MEDICARE, SELFPAY | PROVIDERS: PCP Registered Nurse | DX: R33.9 Retention of urine, unspecified (principal) | CPT/HCPCS: 99202 ==

== ENCOUNTER → 2021-01-21 11:44 | Outpatient (BNVA) | payer MEDICARE, SELFPAY | PROVIDERS: PCP Registered Nurse; Visit Provider Urology | DX: R33.9 Retention of urine, unspecified (principal) | CPT/HCPCS: 99212 ==

== ENCOUNTER → 2021-02-10 10:40 | Outpatient (BNVA) | payer MEDICARE, SELFPAY | PROVIDERS: PCP Registered Nurse; Visit Provider Internal Medicine | DX: J44.9 Chronic obstructive pulmonary disease, unspecified (principal); J18.9 Pneumonia, unspecified organism; R06.00 Dyspnea, unspecified; R09.02 Hypoxemia | CPT/HCPCS: Q3014 ==

== ENCOUNTER → 2021-02-18 11:20 | Outpatient (BNVA) | payer MEDICARE, SELFPAY | PROVIDERS: PCP Registered Nurse | DX: R33.9 Retention of urine, unspecified (principal); Z99.3 Dependence on wheelchair | CPT/HCPCS: 51700; 99212 ==

== ENCOUNTER → 2021-03-31 13:03 | Outpatient (BNVA) | payer MEDICARE, SELFPAY | PROVIDERS: PCP Registered Nurse; Visit Provider Nurse Practitioner Family | DX: I48.19 Other persistent atrial fibrillation (principal); I10 Essential (primary) hypertension; I49.5 Sick sinus syndrome; J96.10 Chronic respiratory failure, unspecified whether with hypoxia or hypercapnia; Z95.0 Presence of cardiac pacemaker | CPT/HCPCS: 99212 ==

== ENCOUNTER 2021-04-07 15:02 | Outpatient (REF) | payer MEDICARE, SELFPAY | END 2021-04-07 15:03 | disposition home or self-care (01) | LOC: HO.HMGCLNP 15:02 | PROVIDERS: PCP Internal Medicine Cardiovascular Disease; Visit Provider Internal Medicine Cardiovascular Disease | DX: Z13.89 Encounter for screening for other disorder (principal) ==

== ENCOUNTER → 2021-05-11 13:18 | Outpatient (REF) | payer MEDICARE, SELFPAY ==
--- NOTE | 2021-05-11 13:24 | CA_ITS ---
Transthoracic Echocardiogram Patient (Last, First, Middle): Trupti Jung A Gender: Female Date of : 1950 Age: 70 Procedure Date: 05/11/2021 Procedure Type: Transthoracic Echocardiogram Location: OP Height: 162.56 cm Weight: 71.67 kg BSA: 1.77 m2 Heart Rate: bpm BP: 133 / 80 mmHg Slotter Operator: YVETTE Baez MD: Freddy Pugh MD Symptoms: I48.19 - Other persistent atrial fibrillation Study Quality: Fair Measurements 2D Linear Measurements IVSd: 1.26 0.6-0.9/0.6-1.0 cm LVIDd: 3.87 3.9-5.3/4.2-5.9 cm LVIDd Index: 2.19 2.4-3.2/2.2-3.1 cm/m2 LVIDs: 2.42 2.0-3.6 cm LVPWd: 1.19 0.7-1.1 cm LA Diam: 4.00 2.7-3.8/3.0-4.0 cm LAIDs Index: 2.26 1.5-2.3 cm/m2 LV Mass: 202.25 67-162/88-224 g LV Mass Index: 114.27 43-95/49-115 g/m2 LVOT Diam: 2.20 3.0+(-)1.3 cm 2D Systolic Function EF 4C: 65.70 >55% EF 2C: 56.60 >55% EF BiP: 61.90 >55% Aortic Valve AoV Pk Eliezer: 1.29 AoV Mn Eliezer: 0.82 AoV VTI: 0.20 AoV Pk Grad: 7.00 Aov Mn Grad: 3.00 AISHWARYA Cont.VTI: 2.33 LVOT LVOT Pk Eliezer: 0.68 LVOT Mn Eliezer: 0.51 LVOT VTI: 0.12 LVOT Pk Grad: 2.00 LVOT Mn Grad: 1.00 LVOT Diam: 2.20 LVOT Area: 3.80 Right Ventricle TAPSE (mm): 15.70 TVS' Eliezer: 9.79 Tricuspid Valve TR Pk Eliezer: 2.25 TR Pk Grad: 20.00 RA Press: 3.00 RVSP: 23.00 Great Vessels Aorta Sinus of Valsalva: 3.13 2.0-3.[address] [place]: 2.86 1.7-3.4 cm Ao Asc: 3.60 2.1-3.4 cm Updated in Other Vendor System with Status of Preliminary
== END ==
LOC: HO.CARD 13:18
PROVIDERS: PCP Internal Medicine; Visit Provider Internal Medicine Cardiovascular Disease
DX: I48.19 Other persistent atrial fibrillation (principal)
CPT/HCPCS: 93306

== ENCOUNTER → 2021-05-20 11:33 | Outpatient (BNVA) | payer MEDICARE, SELFPAY | PROVIDERS: PCP Internal Medicine | DX: Z46.6 Encounter for fitting and adjustment of urinary device (principal); R33.9 Retention of urine, unspecified; Z99.3 Dependence on wheelchair | CPT/HCPCS: 51700; 99212 ==

== ENCOUNTER 2021-05-20 15:05 | Outpatient (REF) | payer MEDICARE, SELFPAY ==
[2021-05-20 16:50] LABS: Albumin Level 2.9 g/dL (3.5-5.0); Anion Gap 19 (12-20); Blood Urea Nitrogen 13 mg/dL (9-16); Calcium 8.6 mg/dL (8.4-10.2); Carbon Dioxide 18 mmol/L (22-29); Chloride 106 mmol/L (96-108); Estimated Glomerular Filt Rate 59; Phosphorus 4.3 mg/dL (2.7-4.5); Potassium 4.9 mmol/L (3.3-5.1); Sodium 138 mmol/L (135-145)
== END 2021-05-20 15:06 | disposition home or self-care (01) ==
LOC: HO.HMGCLNP 15:05
PROVIDERS: Visit Provider Internal Medicine Hypertension Specialist
DX: R33.9 Retention of urine, unspecified (principal); N18.2 Chronic kidney disease, stage 2 (mild)
CPT/HCPCS: 51700; 80051; 82040; 82310; 82565; 84100; 84520

== ENCOUNTER → 2021-05-27 10:21 | Outpatient (BNVA) | payer MEDICARE, SELFPAY | PROVIDERS: PCP Internal Medicine; Visit Provider Internal Medicine | DX: J44.9 Chronic obstructive pulmonary disease, unspecified (principal); R09.02 Hypoxemia; Z79.899 Other long term (current) drug therapy | CPT/HCPCS: 94010; 99212 ==

== ENCOUNTER → 2021-07-12 11:25 | Outpatient (BNVA) | payer MEDICARE, SELFPAY | PROVIDERS: PCP Internal Medicine; Visit Provider Internal Medicine Gastroenterology | DX: Z13.89 Encounter for screening for other disorder (principal) ==

== ENCOUNTER 2021-10-12 10:05 | Outpatient (REF) | payer MEDICARE, SELFPAY ==
[2021-10-12 13:13] LABS: CDiff Gene PCR NEGATIVE (Negative)
[2021-10-14 23:47] LABS: Fecal Fat Qualitative Normal (Normal)
[2021-10-20 18:11] LABS: Pancreatic Elastase-1 359 mcg/g
== END 2021-10-12 10:06 | disposition home or self-care (01) ==
LOC: HO.HMGCLDS 10:05
PROVIDERS: Visit Provider Internal Medicine Gastroenterology
DX: R19.7 Diarrhea, unspecified (principal)
CPT/HCPCS: 36415; 82656; 82705; 87493; 87507

== ENCOUNTER 2021-10-18 08:03 | Outpatient (REF) | payer MEDICARE, SELFPAY | END 2021-10-18 08:04 | disposition home or self-care (01) | LOC: HO.HMGCLDS 08:03 | PROVIDERS: Visit Provider Internal Medicine Gastroenterology | DX: Z13.89 Encounter for screening for other disorder (principal) ==

== ENCOUNTER 2021-10-19 06:15 | Outpatient (REF) | payer MEDICARE, SELFPAY ==
[2021-10-19 13:48] LABS: Adenovirus F 40/41 Not Detected (Not Detect.); Astrovirus Not Detected (Not Detect.); Campylobacter Not Detected (Not Detect.); Cryptosporidium Not Detected (Not Detect.); Cyclospora cayetanensis Not Detected (Not Detect.); E. coli EAEC Not Detected (Not Detect.); E. coli EPEC Not Detected (Not Detect.); E. coli ETEC Not Detected (Not Detect.); E. coli STEC Not Detected (Not Detect.); Entamoeba histolytica Not Detected (Not Detect.); Giardia lamblia Not Detected (Not Detect.); Norovirus GI/GII Not Detected (Not Detect.); Plesiomonas shigelloides Not Detected (Not Detect.); Rotavirus A Not Detected (Not Detect.); Salmonella Not Detected (Not Detect.); Sapovirus Not Detected (Not Detect.); Shigella sp./EIEC Not Detected (Not Detect.); Vibrio Not Detected (Not Detect.); Vibrio Cholerae Not Detected (Not Detect.); Yersinia enterocolitica Not Detected (Not Detect.)
== END 2021-10-19 06:16 | disposition home or self-care (01) ==
LOC: HO.HMGCLDS 06:15
PROVIDERS: Visit Provider Internal Medicine Gastroenterology
DX: A09 Infectious gastroenteritis and colitis, unspecified (principal)
CPT/HCPCS: 36415; 87507

== ENCOUNTER → 2021-11-02 10:57 | Outpatient (BNVA) | payer MEDICARE, SELFPAY | PROVIDERS: PCP Internal Medicine; Visit Provider Internal Medicine Cardiovascular Disease | DX: Z45.018 Encounter for adjustment and management of other part of cardiac pacemaker (principal); I48.19 Other persistent atrial fibrillation | CPT/HCPCS: 93280; 99212 ==

== ENCOUNTER 2021-11-02 11:44 | Outpatient (REF) | payer MEDICARE, SELFPAY ==
[2021-11-02 14:43] LABS: Anion Gap 20 (12-20); Blood Urea Nitrogen 13 mg/dL (9-16); Calcium 9.5 mg/dL (8.4-10.2); Carbon Dioxide 21 mmol/L (22-29); Chloride 105 mmol/L (96-108); Estimated Glomerular Filt Rate 54; Glucose Random 100 mg/dL (60-115); Potassium 6.2 mmol/L (3.3-5.1); Sodium 140 mmol/L (135-145)
[2021-11-02 15:12] LABS: Digoxin 0.7 ng/mL (0.8-2.0)
== END 2021-11-02 11:45 | disposition home or self-care (01) ==
LOC: HO.HMGCLDS 11:44
PROVIDERS: Visit Provider Internal Medicine Cardiovascular Disease
DX: I48.20 Chronic atrial fibrillation, unspecified (principal); Z79.899 Other long term (current) drug therapy
CPT/HCPCS: 36415; 80048; 80162

== ENCOUNTER 2021-11-04 10:16 | Outpatient (REF) | payer MEDICARE, SELFPAY ==
[2021-11-04 12:04] LABS: Anion Gap 20 (12-20); Blood Urea Nitrogen 15 mg/dL (9-16); Calcium 8.9 mg/dL (8.4-10.2); Carbon Dioxide 20 mmol/L (22-29); Chloride 101 mmol/L (96-108); Estimated Glomerular Filt Rate > 60; Glucose Random 117 mg/dL (60-115); Potassium 5.7 mmol/L (3.3-5.1); Sodium 135 mmol/L (135-145)
== END 2021-11-04 10:17 | disposition home or self-care (01) ==
LOC: HO.HMGCLDS 10:16
PROVIDERS: Visit Provider Internal Medicine Cardiovascular Disease
DX: J96.10 Chronic respiratory failure, unspecified whether with hypoxia or hypercapnia (principal); J18.9 Pneumonia, unspecified organism
CPT/HCPCS: 36415; 80048

== ENCOUNTER → 2021-11-08 12:23 | Outpatient (BNVA) | payer MEDICARE, SELFPAY | PROVIDERS: PCP Internal Medicine; Visit Provider Internal Medicine Gastroenterology | DX: Z13.89 Encounter for screening for other disorder (principal) | CPT/HCPCS: Q3014 ==

== ENCOUNTER 2021-11-25 14:00 | Outpatient (REF) | payer MEDICARE, SELFPAY ==
[2021-11-25 16:52] LABS: MANUAL DIFF FLAG NO
[2021-11-25 17:02] LABS: Basophils Absolute Auto 0.1 X10*3/uL (0.0-0.2); Basophils Percent Auto 0.7 % (0-2); Eosinophils Absolute Auto 0.1 X10*3/uL (0.0-0.4); Eosinophils Percent Auto 0.7 % (0-4); Hematocrit 52.9 % (37.0-47.0); Imm Gran Abs Auto 0.02 X10*3/uL (0.00-0.03); Imm Gran Pct Auto 0.3 % (0.0-0.4); Lymphocytes Absolute Auto 0.7 X10*3/uL (1.2-4.9); Mean Corpuscular HGB Conc 32.1 g/dl (31.0-35.0); Mean Corpuscular Hemoglobin 28.6 pg (27.0-33.0); Mean Corpuscular Volume 88.9 fL (80.0-98.0); Mean Platelet Volume 10.9 fL (9.4-12.3); Monocytes Absolute Auto 0.5 X10*3/uL (0.1-1.2); Monocytes Percent Auto 7.8 % (2-11); Neutrophils Absolute Auto 5.3 x10*3/uL (2.0-8.3); Neutrophils Percent Auto 79.5 % (45-73); Platelet Count 308 X10*3/uL (160-400); Red Blood Count 5.95 X10*6/uL (4.20-5.50); Red Cell Distribution Width 13.6 % (11.0-16.0); White Blood Count 6.7 X10*3/uL (4.8-10.8)
[2021-11-25 17:11] LABS: Blood Urea Nitrogen 20 mg/dL (9-16); Estimated Glomerular Filt Rate > 60; Glucose Random 125 mg/dL (60-115)
[2021-11-25 17:27] LABS: Anion Gap 22 (12-20); Carbon Dioxide 17 mmol/L (22-29); Chloride 107 mmol/L (96-108); Potassium 5.1 mmol/L (3.3-5.1); Sodium 141 mmol/L (135-145)
[2021-11-25 17:46] LABS: Folate > 20.0 ng/mL (> or = 4.0); Vitamin B12 276 pg/mL (200-900)
[2021-11-30 15:21] LABS: Vitamin B6 2.6 ng/mL (2.1-21.7)
[2021-12-01 13:42] LABS: Vitamin A 43 mcg/dL (38-98)
[2021-12-01 19:56] LABS: Vitamin B5 (Pantothenic Acid) 91 ng/mL (<275)
[2021-12-01 20:56] LABS: Vitamin K1 91 pg/mL (130-1500)
[2021-12-01 23:01] LABS: Nicotinamide 23 ng/mL; Vit B3 - Nicotinic Acid <20 ng/mL
== END 2021-11-25 14:01 | disposition home or self-care (01) ==
LOC: HO.HMGCLDS 14:00
PROVIDERS: Absent Provider Internal Medicine Gastroenterology; PCP Registered Nurse; Visit Provider Internal Medicine Hypertension Specialist
DX: I48.19 Other persistent atrial fibrillation (principal); I10 Essential (primary) hypertension; J18.9 Pneumonia, unspecified organism; E87.5 Hyperkalemia; E46 Unspecified protein-calorie malnutrition; E55.9 Vitamin D deficiency, unspecified
CPT/HCPCS: 36415; 80048; 82306; 82607; 82746; 83735; 84207; 84590; 84591; 84597; 85025

== ENCOUNTER 2021-11-26 11:30 | Outpatient (REF) | payer MEDICARE, SELFPAY ==
[2021-11-26 12:29] LABS: Appearance Urine Cloudy; Color Urine Yellow; Glucose Urine UA Negative (Negative); Leukocyte Esterase Urine Small (1+) (Negative); Nitrite Urine Negative (Negative); PH 6.5 (5.0-9.0); UMIC TRIGGER UACC YES; Urine Blood Trace (Negative); Urine Ketones 15 mg/dL (Negative); Urine Protein 100 (2+) mg/dL (Neg-Trace)
[2021-11-26 12:41] LABS: Bacteria Urine 4+ (None Seen); Hyaline Casts Urine >20 /LPF (0-2); UACC Culture Trigger YES
[2021-11-26 13:08] LABS: Erythrocyte Sedimentation Rate 48 MM/HR (0-20)
[2021-11-30 19:11] LABS: Zinc 59 mcg/dL (60-130)
[2021-12-01 18:03] LABS: Vitamin C 1.5 mg/dL (0.3-2.7)
[2021-12-02 00:46] LABS: Alpha-Tocopherol 13.1 mg/L (5.7-19.9); Beta-Gamma Tocopherol 1.6 mg/L (<=4.3)
== END 2021-11-26 11:31 | disposition home or self-care (01) ==
LOC: HO.LAB 11:30
PROVIDERS: Visit Provider Internal Medicine Gastroenterology
DX: I10 Essential (primary) hypertension (principal); I48.19 Other persistent atrial fibrillation; J18.9 Pneumonia, unspecified organism
CPT/HCPCS: 36415; 81001; 82180; 84446; 84630; 85652; 87086

== ENCOUNTER 2021-12-07 12:05 | Outpatient (REF) | payer MEDICARE, SELFPAY ==
[2021-12-07 14:13] LABS: MANUAL DIFF FLAG NO
[2021-12-07 14:24] LABS: Basophils Absolute Auto 0.1 X10*3/uL (0.0-0.2); Basophils Percent Auto 0.9 % (0-2); Eosinophils Absolute Auto 0.1 X10*3/uL (0.0-0.4); Eosinophils Percent Auto 1.4 % (0-4); Hematocrit 45.6 % (37.0-47.0); Hemoglobin 14.8 g/dl (12.0-16.0); Imm Gran Abs Auto 0.06 X10*3/uL (0.00-0.03); Imm Gran Pct Auto 0.8 % (0.0-0.4); Lymphocytes Percent Auto 13.4 % (20-40); Mean Corpuscular HGB Conc 32.5 g/dl (31.0-35.0); Mean Corpuscular Hemoglobin 29.2 pg (27.0-33.0); Mean Corpuscular Volume 89.9 fL (80.0-98.0); Mean Platelet Volume 10.1 fL (9.4-12.3); Monocytes Absolute Auto 0.5 X10*3/uL (0.1-1.2); Monocytes Percent Auto 6.8 % (2-11); Neutrophils Absolute Auto 5.9 x10*3/uL (2.0-8.3); Neutrophils Percent Auto 76.7 % (45-73); Platelet Count 296 X10*3/uL (160-400); Red Blood Count 5.07 X10*6/uL (4.20-5.50); Red Cell Distribution Width 14.1 % (11.0-16.0); White Blood Count 7.7 X10*3/uL (4.8-10.8)
[2021-12-07 14:30] LABS: Appearance Urine Turbid; Color Urine Yellow; Glucose Urine UA Negative (Negative); Leukocyte Esterase Urine Large (3+) (Negative); Nitrite Urine Positive (Negative); PH >= 9.0 (5.0-9.0); UMIC TRIGGER UACC YES; Urine Blood Moderate (2+) (Negative); Urine Ketones Negative (Negative); Urine Protein 300 (3+) mg/dL (Neg-Trace)
[2021-12-07 14:37] LABS: Alanine Aminotransferase 17 U/L (0-31); Albumin Level 3.5 g/dL (3.5-5.0); Alkaline Phosphatase 96 U/L (39-117); Anion Gap 18 (12-20); Aspartate Amino Transferase 17 U/L (5-31); Bilirubin Total 0.4 mg/dL (0.0-1.0); Blood Urea Nitrogen 19 mg/dL (9-16); Calcium 8.5 mg/dL (8.4-10.2); Carbon Dioxide 21 mmol/L (22-29); Chloride 108 mmol/L (96-108); Estimated Glomerular Filt Rate 55; Glucose Random 146 mg/dL (60-115); Sodium 142 mmol/L (135-145)
[2021-12-07 14:47] LABS: Bacteria Urine 4+ (None Seen); Hyaline Casts Urine 0-2 /LPF (0-2); Other Crystals Urine Present; RBC Urine >20 /HPF (0-2); UACC Culture Trigger YES
== END 2021-12-07 12:06 | disposition home or self-care (01) ==
LOC: HO.HMGCLDS 12:05
PROVIDERS: PCP Registered Nurse; Visit Provider Internal Medicine Gastroenterology
DX: I48.19 Other persistent atrial fibrillation (principal); J18.9 Pneumonia, unspecified organism; K75.81 Nonalcoholic steatohepatitis (NASH); J96.10 Chronic respiratory failure, unspecified whether with hypoxia or hypercapnia; I10 Essential (primary) hypertension
CPT/HCPCS: 36415; 80053; 81001; 85025; 87086

== ENCOUNTER 2021-12-20 15:29 | Outpatient (REF) | payer MEDICARE, SELFPAY ==
--- NOTE | ~2021-12-20 | CT_ITS ---
EXAMINATION: CT ENTEROGRAPHY ABDOMEN AND PELVIS WITH CONTRAST CLINICAL INFORMATION: Periumbilical pain COMPARISON: Previous CT of the abdomen and pelvis December 2020 TECHNIQUE: Study performed with oral VoLumen (1350 mL) and 480 mL of water to distend the abdomen. The patient was injected with 85 mL Omnipaque 350 intravenous contrast which was administered without adverse effect. Coronal and sagittal reformatted images were obtained at the technologist's workstation. This CT examination was performed using dose optimization techniques as appropriate, variously including the following: *Automated exposure control *Adjustment of mA and/or kV according to patient size (this includes techniques or standardized protocols for targeted exams where dose is matched to indication/reason for exam; i.e. extremities or head) *Use of iterative reconstruction technique DLP: 284 mGy-cm FINDINGS: GASTROINTESTINAL FINDINGS: Stomach: Well-distended and normal in appearance. Small intestine: Satisfactorily distended and normal in appearance. Large intestine: Constipation. Well-distended and otherwise normal in appearance. No perirectal changes demonstrated. The appendix is not seen. Additional findings: No abnormal enhancement of the vasa recta or significant mesenteric or retroperitoneal lymphadenopathy is seen. No abdominal abscess or fistulous tract demonstrated. ABDOMINAL AND PELVIC CT FINDINGS: Liver, gallbladder, biliary tract: Normal. Pancreas: Pancreas appears slightly small or atrophic. There may be a small 3 mm cyst in the tail the pancreas. Spleen: Normal Adrenal glands and kidneys: The adrenal glands are normal. There is a small cyst in the upper pole the left kidney. No imaging follow-up. Slightly lobulated contour of the kidneys. Hydronephrosis no longer appreciated/resolved from 2020 exam. Ureters and bladder: There is a Cadet catheter in the bladder. There is a small amount of urine in the bladder. The bladder wall is diffusely thickened and there is diffuse mucosal enhancement. Lymphovascular structures: Aneurysm of the lower abdominal aorta measuring 3.9 cm x 3.9 cm not appreciably changed. Surgical clips in the bilateral pelvis adjacent to the iliac vessels. Surgical clips in the lower abdominal retroperitoneum at the inferior margin of the aneurysm. No enlarged lymph nodes. Bones: Degenerative changes of the spine and hip joints. Heterogeneous attenuation of both hip joints. Lung bases: Lung bases are clear. CT/CT enterography IMPRESSION: Constipation. Otherwise unremarkable enterography exam. Cadet catheter in the bladder. Small amount of urine in the bladder. Mild diffuse bladder wall thickening and mucosal enhancement. Resolved bilateral hydronephrosis. Stable lower abdominal aortic aneurysm measuring 3.9 x 3.9 cm.
[2021-12-20] MEDS: iohexoL 350 MG/ML 100 ML INFUS..BTL 85 ML IV (16:41)
[2021-12-20] MEDS: Sorbitol/Mannit/Xanth Imaging 500 ML LIQUID 1500 ML PO (16:42)
== END 2021-12-20 15:30 | disposition home or self-care (01) ==
LOC: HO.US 15:29
PROVIDERS: Visit Provider Internal Medicine Gastroenterology
DX: R10.33 Periumbilical pain (principal)
CPT/HCPCS: 74177; Q9967

== ENCOUNTER → 2022-01-25 12:38 | Outpatient (BNVA) | payer MEDICARE, SELFPAY | PROVIDERS: PCP Registered Nurse; Visit Provider Nurse Practitioner Family | DX: N31.9 Neuromuscular dysfunction of bladder, unspecified (principal); R33.9 Retention of urine, unspecified | CPT/HCPCS: 51702; 99212 ==

== ENCOUNTER 2022-03-22 10:01 | Day surgery (SDC) | payer MEDICARE, SELFPAY ==
[2022-03-22 10:28] VITALS: BP 106/80; PULSE 89; RESP 20; TEMP 36.1; O2SAT 96; BMI 20.9
--- NOTE | 2022-03-22 10:45 | MHC.SHP ---
Pre-Procedural Eval Section A Date of Service: 03/22/22 Section B Chief Complaint: Abdominal distension (gaseous),diarrhea, Details of Present Illness: hx of duodenal and colon polyps, also having diarrhea symptoms Relevant Family History (Specify if Yes): No Relevant Social History: None Present Medications: see Short Stay Collaborative assessment Medical History: Significant History (Cardiac pacemaker in situ COPD (chronic obstructive pulmonary disease) Dyspnea on exertion Exercise hypoxemia GERD (gastroesophageal reflux disease) HTN (hypertension) Hypertension Persistent atrial fibrillation Pneumonia Retention, urine Sick sinus syndrome) History of Previous Operations: Relevant previous surgery/procedure and date(s) (History of cardioversion History of esophagogastroduodenoscopy (EGD) History of radiofrequency ablation (RFA) for complex left atrial arrhythmia Hx of cardiac pacemaker Hx of colonoscopy Hx of hysterectomy) Allergies: Allergies Allergy/AdvReac Type Severity Reaction Status Date / Time No Known Allergies Allergy Verified 01/25/22 21:34 [No Known Allergies*] Review of Systems Sugical H&P ROS: Negative: Constitution, Cardiovascular, Respiratory, Neurological, Psychiatric, Hem-Onc, Allergic/Immunologic, Gastrointestinal, Genitourinary, Musculoskeletal, Integumentary, Endocrine and Eyes/Ears/Nose/Throat Exam Surgical H&P Exam: Normal: HEENT, Normal: Heart, Normal: Lungs, Normal: Extremities, Normal: Abdomen, Normal: Skin and Normal: Neurological Plan Diagnosis/Plan: Unchanged I have reviewed the history and physical and performed a pertinent physical examination on my patient. No changes have occurred unless specified. egd and colonoscopy due to hx of polyps Time Spent With Patient Time: Total time managing care of this patient today ____ minutes.
[2022-03-22] MEDS: Lactated Ringers 1,000 ML 50 ML IVCONT (10:46)
--- NOTE | 2022-03-22 10:57 | W.PM.OPN ---
Operative Note Operative Note Date of Service: 03/22/22 Narrative: Operative Information Procedure Description: EGD, Colonoscopy Indication: [] Anesthesia: MAC FLEXIBLE TRANSORAL UPPER GASTROINTESTINAL ENDOSCOPY AND COLONOSCOPY PROCEDURE NOTE UPPER ENDOSCOPY Consent: Indications for the procedure and potential complications of bleeding, perforation, reaction to medications and missed diagnosis were discussed with the patient and informed consent was obtained. Instrument: Olympus GIF H 190 J mid size upper endoscope Monitoring: Vital signs and clinical assessment, continuous EKG monitoring, Pulse oximetry, Carbon Dioxide monitoring and blood pressure monitoring were done throughout the procedure. Procedure: The patient was placed in the left lateral decubitis position and pre-procedure medications were administered and a bite block was placed. The endoscope was inserted into the mouth and advanced under direct vision to the third part of duodenum. A careful inspection was made as the upper endoscope was withdrawn including a retroflexed examination of the proximal stomach; Findings and interventions are described below. Findings: Larynx: normal Esophagus: GE junction at 35 cm and dipahragm hiatus at 37 cm consistent with 2 cm sliding hiatal hernia. Irregular Z line, bx taken to r/o barretts Stomach: Diffuse streaky gastric erythema with nodular mucosa. Biopsies were obtained. Grade 3 flap valve on retroflexed examination of the cardia. Duodenum: Patchy bulbar duodenitis Intervention: Biopsies as noted above Patient was turned for colonoscopy but on entering the rectum there was solid balls of greenish stool so the procedure was aborted. Impression and Post Procedure Diagnosis: Endoscopy Findings: hiatal hernia gastritis duodenitis esophagitis possible barretts lax LES Plan: Await Pathology results Repeat Colonoscopy with prep compliance Above findings were reviewed with the patient and relevant handouts were provided if indicated.
[2022-03-22 11:25] VITALS: BP 115/68; PULSE 70; RESP 18; TEMP 36.1; O2SAT 100
--- NOTE | 2022-03-22 11:32 | HO.ANESPROP2 ---
HPI - Anesthesia Eval Consult details Narrative: for diahrea abdominalbloating PMFSH Active Problems Active Problems: All Active Problems (Updated 03/21/22 @ 08:17 by Zoe Ponce RN) Chronic respiratory failure (Acute) Diarrhea (Acute) Neurogenic bladder (Acute) Sick sinus syndrome (Acute) Retention, urine (Acute) Pneumonia (Acute) Exercise hypoxemia (Acute) Persistent atrial fibrillation (Acute) COPD (chronic obstructive pulmonary disease) (Acute) Dyspnea on exertion (Acute) HTN (hypertension) (Acute) Cardiac pacemaker in situ (Acute) Past Medical History Medical History (Updated 03/21/22 @ 08:17 by Zoe Ponce RN) Cardiac pacemaker in situ COPD (chronic obstructive pulmonary disease) Dyspnea on exertion Exercise hypoxemia GERD (gastroesophageal reflux disease) HTN (hypertension) Hypertension Legally blind Persistent atrial fibrillation Pneumonia Retention, urine Sick sinus syndrome Family History Family History Father CHF (congestive heart failure) Cancer Pacemaker Mother Emphysema lung Family history of problems with anesthesia: No Surgical History Surgical History History of cardioversion History of esophagogastroduodenoscopy (EGD) History of radiofrequency ablation (RFA) for complex left atrial arrhythmia Hx of cardiac pacemaker Hx of colonoscopy Hx of hysterectomy History of Problems with Anesthesia: No Social History Social History Alcohol intake: never Patient Tobacco Use Status: Former Tobacco user Quit Date: 30 years ago Use of substances other than those prescribed or required for medical reasons: No Are you DNR?: No Advance Directives: No Advance Directives Information Provided: Yes Meds Allergies Allergy/AdvReac Type Severity Reaction Status Date / Time No Known Allergies Allergy Verified 01/25/22 21:34 [No Known Allergies*] Active Medications: Current Medications Lactated Ringer's (Lr) 1,000 mls @ 50 mls/hr IVCONT .Q20H LUCY Last Admin: 03/22/22 10:46 Dose: 50 mls/hr Home Medications Medication Instructions Recorded Confirmed Last Taken Type ferrous sulfate 325 mg (65 mg 325 mg PO BID 04/07/20 03/17/22 12/10/20 14:00 History iron) tablet folic acid 1 mg tablet 1 mg PO DAILY 04/07/20 03/17/22 12/10/20 14:00 History calcium carbonate 200 mg calcium 200 mg PO TID PRN Heartburn 02/10/21 03/17/22 Unknown History (500 mg) chewable tablet (Tums) simvastatin 40 mg tablet 40 mg PO BEDTIME 02/10/21 03/17/22 Unknown History ascorbic acid (vitamin C) 500 mg 500 mg PO DAILY 03/31/21 03/17/22 Unknown History tablet zinc oxide 10 % topical cream 1 appl topical TID PRN Rash 03/31/21 03/17/22 Unknown History (Secura Protective (zinc oxide)) digoxin 250 mcg (0.25 mg) tablet 250 mcg PO DAILY 12/24/21 03/17/22 Unknown History metoprolol succinate 25 mg 12.5 mg PO BID 12/24/21 03/17/22 Unknown History tablet,extended release 24 hr estradiol 0.01% (0.1 mg/gram) g vaginal 01/25/22 01/25/22 Unknown History vaginal cream phytonadione (vitamin K1) 100 mcg 100 mcg PO DAILY 01/25/22 03/17/22 Unknown History tablet Exam Exam Date and Time: March 22, 2022 1132 Height,Weight and Vital Signs: Height 5 ft 4 in Weight 55.338 kg Last Vital Signs Temp 97 F 03/22/22 11:25 Pulse 70 03/22/22 11:25 Resp 18 03/22/22 11:25 BP 115/68 03/22/22 11:25 Pulse Ox 100 03/22/22 11:25 O2 Del Method 03/22/22 11:25 Airway Mallampati Class: II TM Dist: >3cm Neck ROM: Full Denture: Upper and Lower Heart: irr Lungs: cta Assessment and Plan Final Anesthetic Review Family History of Problems with Anesthesia: No History of Problems with Anesthesia: No NPO: Yes ASA Class: III Final Preanesthetic Review: No Changes in Pt Med Stat Patient Risk: Intermediate Procedure Risk: Low Anesthetic Plan Anesthetic Plan: MAC: Disposition: Standard PACU
[2022-03-22 11:40] VITALS: BP 149/89; PULSE 61; RESP 18; TEMP 36.9; O2SAT 99
== END 2022-03-22 12:35 | disposition home or self-care (01) ==
PROVIDERS: PCP Registered Nurse; Visit Provider Internal Medicine Gastroenterology
PROC: (CPT 45378; principal; 2022-03-22 12:00)
DX: R14.0 Abdominal distension (gaseous) (principal); R19.7 Diarrhea, unspecified; Z53.8 Procedure and treatment not carried out for other reasons; K21.9 Gastro-esophageal reflux disease without esophagitis; K22.70 Barrett's esophagus without dysplasia; K29.50 Unspecified chronic gastritis without bleeding; K29.80 Duodenitis without bleeding; K22.4 Dyskinesia of esophagus; K44.9 Diaphragmatic hernia without obstruction or gangrene; J44.9 Chronic obstructive pulmonary disease, unspecified; I48.19 Other persistent atrial fibrillation; I49.5 Sick sinus syndrome; Z95.0 Presence of cardiac pacemaker; I10 Essential (primary) hypertension; Z79.899 Other long term (current) drug therapy; Z87.891 Personal history of nicotine dependence
CPT/HCPCS: 45378; 43239; 88305; 88342

== ENCOUNTER 2022-05-17 09:32 | Day surgery (SDC) | payer MEDICARE, SELFPAY ==
--- NOTE | 2022-05-16 13:03 | HO.ANESPROP2 ---
HPI - Anesthesia Eval Consult details Narrative: 71yo F for Colonoscopy Pacer in situ for SSS Xarelto for afib s/p EGD and [place] 03/2022 with MAC (poor prep) PMFSH Active Problems Active Problems: All Active Problems (Updated 05/12/22 @ 14:12 by Lilia Sapp, RN) Chronic respiratory failure (Acute) Diarrhea (Acute) Neurogenic bladder (Acute) Sick sinus syndrome (Acute) Retention, urine (Acute) Pneumonia (Acute) Exercise hypoxemia (Acute) Persistent atrial fibrillation (Acute) COPD (chronic obstructive pulmonary disease) (Acute) Dyspnea on exertion (Acute) HTN (hypertension) (Acute) Cardiac pacemaker in situ (Acute) Past Medical History Medical History (Updated 05/12/22 @ 14:12 by Lilia Sapp, RN) Cardiac pacemaker in situ COPD (chronic obstructive pulmonary disease) Dyspnea on exertion Exercise hypoxemia GERD (gastroesophageal reflux disease) HTN (hypertension) Hypertension Legally blind On beta mayra at home Persistent atrial fibrillation Pneumonia Retention, urine Sick sinus syndrome Family History Family History Father CHF (congestive heart failure) Cancer Pacemaker Mother Emphysema lung Family history of problems with anesthesia: No Surgical History Surgical History (Updated 05/12/22 @ 14:12 by Lilia Sapp, ISABELA) History of cardioversion History of endoscopy History of esophagogastroduodenoscopy (EGD) History of radiofrequency ablation (RFA) for complex left atrial arrhythmia Hx of cardiac pacemaker Hx of colonoscopy Hx of hysterectomy History of Problems with Anesthesia: No Social History Social History Alcohol intake: never Patient Tobacco Use Status: Former Tobacco user Quit Date: 30 years ago Meds Allergies Allergy/AdvReac Type Severity Reaction Status Date / Time No Known Allergies Allergy Verified 05/12/22 14:31 [No Known Allergies*] Home Medications Medication Instructions Recorded Confirmed Last Taken Type ferrous sulfate 325 mg (65 mg 325 mg PO BID 04/07/20 05/12/22 12/10/20 14:00 History iron) tablet folic acid 1 mg tablet 1 mg PO DAILY 04/07/20 05/12/22 12/10/20 14:00 History calcium carbonate 200 mg calcium 200 mg PO TID PRN Heartburn 02/10/21 05/12/22 Unknown History (500 mg) chewable tablet (Tums) simvastatin 40 mg tablet 40 mg PO BEDTIME 02/10/21 05/12/22 Unknown History ascorbic acid (vitamin C) 500 mg 500 mg PO DAILY 03/31/21 05/12/22 Unknown History tablet zinc oxide 10 % topical cream 1 appl topical TID PRN Rash 03/31/21 05/12/22 Unknown History (Secura Protective (zinc oxide)) metoprolol succinate 25 mg 12.5 mg PO BID 12/24/21 05/12/22 Unknown History tablet,extended release 24 hr estradiol 0.01% (0.1 mg/gram) g vaginal 01/25/22 01/25/22 Unknown History vaginal cream phytonadione (vitamin K1) 100 mcg 100 mcg PO DAILY 01/25/22 05/12/22 Unknown History tablet albuterol sulfate 90 mcg/actuation 2 puff inhalation Q6H PRN wheezing 05/12/22 05/12/22 Unknown History aerosol inhaler hydrocodone 7.5 mg-acetaminophen 1 tab PO Q6H PRN severe pain 05/12/22 05/12/22 Unknown History 325 mg tablet ipratropium 0.5 mg-albuterol 3 mg 1 inhalation Q4-6H PRN wheezing 05/12/22 05/12/22 Unknown History (2.5 mg base)/3 mL nebulization soln Exam Exam Date and Time: May 16, 2022 1303 Pertinent Lab Results Pertinent Lab Results: Laboratory Tests 12/07/21 12/07/21 12:20 12:20 WBC 7.7 Hgb 14.8 Hct 45.6 Plt Count 296 Sodium 142 Potassium 5.0 Chloride 108 Carbon Dioxide 21 L BUN 19 H Creatinine 0.99 Narrative Narrative: Cardiac Device Check 10/2021 Details: Dual-chamber pacemaker programmed in VVIR at 60 beats per minute.? Ventricular pacing 36% of the time.? Ventricular sensing is excellent.? Ventricular pacing thresholds are slightly elevated and reprogrammed to enhance safety.? Battery life is about 2 years Assessment and Plan Assessment Anesthesia Assessment: Chart Reviewed Final Anesthetic Review Family History of Problems with Anesthesia: No History of Problems with Anesthesia: No
[2022-05-17 06:30] VITALS: BMI 28.8
[2022-05-17 09:36] VITALS: BP 126/92; PULSE 98; RESP 20; TEMP 36.6; O2SAT 94
[2022-05-17] MEDS: Lactated Ringers 1,000 ML 100 ML IVCONT (10:15)
--- NOTE | 2022-05-17 10:16 | PC.NURSE ---
result from fleets small liquid orange
--- NOTE | 2022-05-17 11:07 | MHC.SHP ---
Pre-Procedural Eval Section A Date of Service: 05/17/22 Section B Chief Complaint: hx of colon polyps Relevant Family History (Specify if Yes): No Relevant Social History: None Present Medications: see Short Stay Collaborative assessment Medical History: Significant History (Cardiac pacemaker in situ COPD (chronic obstructive pulmonary disease) Dyspnea on exertion Exercise hypoxemia GERD (gastroesophageal reflux disease) HTN (hypertension) Hypertension Legally blind On beta mayra at home Persistent atrial fibrillation Pneumonia Retention, urine Sick sinus syndrome) History of Previous Operations: Relevant previous surgery/procedure and date(s) (History of cardioversion History of endoscopy History of esophagogastroduodenoscopy (EGD) History of radiofrequency ablation (RFA) for complex left atrial arrhythmia Hx of cardiac pacemaker Hx of colonoscopy Hx of hysterectomy) Allergies: Allergies Allergy/AdvReac Type Severity Reaction Status Date / Time No Known Allergies Allergy Verified 05/12/22 14:31 [No Known Allergies*] Review of Systems Sugical H&P ROS: Negative: Constitution, Cardiovascular, Respiratory, Neurological, Psychiatric, Hem-Onc, Allergic/Immunologic, Gastrointestinal, Genitourinary, Musculoskeletal, Integumentary, Endocrine and Eyes/Ears/Nose/Throat Exam Surgical H&P Exam: Normal: HEENT, Normal: Heart, Normal: Lungs, Normal: Extremities, Normal: Abdomen, Normal: Skin and Normal: Neurological Plan Diagnosis/Plan: Unchanged I have reviewed the history and physical and performed a pertinent physical examination on my patient. No changes have occurred unless specified. Time Spent With Patient Time: Total time managing care of this patient today ____ minutes.
--- NOTE | 2022-05-17 11:28 | P.OP_ITS ---
Operative Note Operative Note Date of Service: 05/17/22 Narrative: Operative Information Procedure Description: Colonoscopy Indication: hx of colon polyps Anesthesia: MAC COLONOSCOPY Instrument: Olympus variable stiffness ADULT scope 190L Colonoscopy Monitoring: Vital signs and clinical assessment, continuous EKG monitoring, Pulse oximetry, Carbon Dioxide monitoring and blood pressure monitoring were done throughout the procedure. Colon withdrawal time was 48 minutes. Procedure: The patient was placed in the left lateral decubitis position and pre-procedure medications were administered. After a digital rectal examination of the ano-rectum, the video colonoscope was inserted into the rectum and advanced through the colon to the cecum/TI. The colonoscope was slowly withdrawn in a retrograde panoramic fashion and the colon mucosa was carefully examined including a retroflexed view of the rectum. Findings and interventions are described below. Procedure Difficulty: moderate Findings: Terminal Ileum-not intubated Cecum: Around appendiceal orifice a laterally spreading granular flat polyp was noted, maybe 10-12 mm in length. This was lifted with ERBE jet and then piece meal resected using combination of cold snare and cold forceps. The base was then ablated at 30 W with APC and then x 2 clips applied for hemostasis. Ascending Colon: x5 sessile polyps measuring 8-14 mm in size. x 2 removed with cold forceps and x3 with cold snare Transverse Colon - x 2 sessile polyps 10-12 mm removed with cold snare Descending Colon: x2 sessile polyps 6-12 mm, one removed with cold snare and the other with cold forceps. Sigmoid Colon: mild to moderate diverticulosis noted. Rectum: Retroflexion with small internal hemorrhoids, grade I. In proximal rectum 10-12 mm sessile polyp removed with cold snare Anorectum - normal Colon preparation: [place] Bowel Preparation Scale Right colon; 2 Transverse colon: 2 Left colon; 2 (0 = Unprepared colon segment with mucosa not seen due to solid stool that cannot be cleared. 1 = Portion of mucosa of the colon segment seen, but other areas of the colon segment not well seen due to staining, residual stool and/or opaque liquid. 2 = Minor amount of residual staining, small fragments of stool and/or opaque liquid, but mucosa of colon segment seen well. 3 = Entire mucosa of colon segment seen well with no residual staining, small fragments of stool or opaque liquid) Impression and Post Procedure Diagnosis: polyps internal hemorrhoids diverticular disease Plan: High fiber diet leaflet Avoid straining at stool, epsom salts and sitz bath, anusol supps or cream Repeat Colonoscopy in 6-12 month or earlier if clinically indicated Restart rivaroxiban in 2 days -Monday morning Above findings were reviewed with the patient and relevant handouts were provided if indicated.
--- NOTE | 2022-05-17 12:15 | P.CONAN_ITS ---
HPI - Anesthesia Eval Consult details Narrative: abdominal pain PMFSH Active Problems Active Problems: All Active Problems (Updated 05/12/22 @ 14:12 by Lilia Sapp, RN) Chronic respiratory failure (Acute) Diarrhea (Acute) Neurogenic bladder (Acute) Sick sinus syndrome (Acute) Retention, urine (Acute) Pneumonia (Acute) Exercise hypoxemia (Acute) Persistent atrial fibrillation (Acute) COPD (chronic obstructive pulmonary disease) (Acute) Dyspnea on exertion (Acute) HTN (hypertension) (Acute) Cardiac pacemaker in situ (Acute) Past Medical History Medical History (Updated 05/12/22 @ 14:12 by Lilia Sapp, RN) Cardiac pacemaker in situ COPD (chronic obstructive pulmonary disease) Dyspnea on exertion Exercise hypoxemia GERD (gastroesophageal reflux disease) HTN (hypertension) Hypertension Legally blind On beta mayra at home Persistent atrial fibrillation Pneumonia Retention, urine Sick sinus syndrome Family History Family History Father CHF (congestive heart failure) Cancer Pacemaker Mother Emphysema lung Family history of problems with anesthesia: No Surgical History Surgical History (Updated 05/12/22 @ 14:12 by Lilia Sapp, ISABELA) History of cardioversion History of endoscopy History of esophagogastroduodenoscopy (EGD) History of radiofrequency ablation (RFA) for complex left atrial arrhythmia Hx of cardiac pacemaker Hx of colonoscopy Hx of hysterectomy History of Problems with Anesthesia: No Social History Social History Alcohol intake: never Patient Tobacco Use Status: Former Tobacco user Quit Date: 30 years ago Are you DNR?: No Advance Directives: No Advance Directives Information Provided: Yes Nutrition Risks: No Nutritional Risk Meds Allergies Allergy/AdvReac Type Severity Reaction Status Date / Time No Known Allergies Allergy Verified 05/12/22 14:31 [No Known Allergies*] Active Medications: Current Medications Albuterol Sulfate (Albuterol Sulfate (0.083%) 2.5 Mg/3 Ml Vial.Neb) 2.5 mg INHALE ONCE PRN PRN Reason: Shortness of Breath/Wheezing Lactated Ringer's (Lr) 1,000 mls @ 100 mls/hr IVCONT .Q10H LUCY Last Admin: 05/17/22 10:15 Dose: 100 mls/hr Home Medications Medication Instructions Recorded Confirmed Last Taken Type ferrous sulfate 325 mg (65 mg 325 mg PO BID 04/07/20 05/12/22 05/12/22 History iron) tablet folic acid 1 mg tablet 1 mg PO DAILY 04/07/20 05/12/22 12/10/20 14:00 History calcium carbonate 200 mg calcium 200 mg PO TID PRN Heartburn 02/10/21 05/12/22 Unknown History (500 mg) chewable tablet (Tums) simvastatin 40 mg tablet 40 mg PO BEDTIME 02/10/21 05/12/22 Unknown History ascorbic acid (vitamin C) 500 mg 500 mg PO DAILY 03/31/21 05/12/22 Unknown History tablet metoprolol succinate 25 mg 12.5 mg PO BID 12/24/21 05/12/22 Unknown History tablet,extended release 24 hr estradiol 0.01% (0.1 mg/gram) g vaginal 01/25/22 01/25/22 Unknown History vaginal cream phytonadione (vitamin K1) 100 mcg 100 mcg PO DAILY 01/25/22 05/12/22 Unknown History tablet albuterol sulfate 90 mcg/actuation 2 puff inhalation Q6H PRN wheezing 05/12/22 05/12/22 Unknown History aerosol inhaler hydrocodone 7.5 mg-acetaminophen 1 tab PO Q6H PRN severe pain 05/12/22 05/12/22 05/17/22 History 325 mg tablet ipratropium 0.5 mg-albuterol 3 mg 1 inhalation Q4-6H PRN wheezing 05/12/22 05/12/22 Unknown History (2.5 mg base)/3 mL nebulization soln Exam Exam Date and Time: May 17, 2022 1215 Height,Weight and Vital Signs: Height 5 ft 3 in Weight 73.936 kg Last Vital Signs Temp 98 F 05/17/22 09:36 Pulse 98 05/17/22 09:36 Resp 20 05/17/22 09:36 BP 126/92 H 05/17/22 09:36 Pulse Ox 94 05/17/22 09:36 O2 Del Method Room Air 05/17/22 09:36 Airway TM Dist: >3cm Neck ROM: Full Denture: Upper Partial: Lower Heart: rr Lungs: cta Assessment and Plan Final Anesthetic Review Family History of Problems with Anesthesia: No History of Problems with Anesthesia: No ASA Class: II Final Preanesthetic Review: No Changes in Pt Med Stat, Meds/Allgs Chart Reviewed, Consent Obtained/Reviewed and Anes Risks/Benef Reviewed Patient Risk: Low Procedure Risk: Low Anesthetic Plan Disposition: Standard PACU
[2022-05-17 12:40] VITALS: BP 111/77; PULSE 72; RESP 16; TEMP 36.3; O2SAT 97
[2022-05-17 12:55] VITALS: BP 122/80; PULSE 75; RESP 16; TEMP 36.7; O2SAT 100
== END 2022-05-17 13:45 | disposition home or self-care (01) ==
PROVIDERS: PCP Registered Nurse; Visit Provider Internal Medicine Gastroenterology
PROC: 0DJD8ZZ Inspection of Lower Intestinal Tract, Via Natural or Artificial Opening Endoscopic (ICD-10-PCS; CPT 45378; principal; 2022-05-17 12:20)
DX: Z12.11 Encounter for screening for malignant neoplasm of colon (principal); Z86.010 Personal history of colon polyps; R19.7 Diarrhea, unspecified; D12.0 Benign neoplasm of cecum; D12.2 Benign neoplasm of ascending colon; D12.3 Benign neoplasm of transverse colon; D12.4 Benign neoplasm of descending colon; K57.30 Diverticulosis of large intestine without perforation or abscess without bleeding; K64.0 First degree hemorrhoids; K21.9 Gastro-esophageal reflux disease without esophagitis; I48.19 Other persistent atrial fibrillation; I10 Essential (primary) hypertension; I49.5 Sick sinus syndrome; Z95.0 Presence of cardiac pacemaker; J44.9 Chronic obstructive pulmonary disease, unspecified; R09.02 Hypoxemia; R06.09 Other forms of dyspnea; Z79.51 Long term (current) use of inhaled steroids; Z79.899 Other long term (current) drug therapy; Z87.891 Personal history of nicotine dependence
CPT/HCPCS: 45385; 45380; 45381; 88305; C2618; Q9968

== ENCOUNTER 2022-05-23 15:14 | Outpatient (REF) | payer MEDICARE, SELFPAY ==
[2022-05-23 15:21] LABS: MANUAL DIFF FLAG NO
[2022-05-23 15:32] LABS: Basophils Percent Auto 0.4 % (0-2); Eosinophils Absolute Auto 0.1 X10*3/uL (0.0-0.4); Eosinophils Percent Auto 1.9 % (0-4); Hemoglobin 13.5 g/dl (12.0-16.0); Imm Gran Abs Auto 0.03 X10*3/uL (0.00-0.03); Imm Gran Pct Auto 0.6 % (0.0-0.4); Lymphocytes Absolute Auto 0.8 X10*3/uL (1.2-4.9); Lymphocytes Percent Auto 16.1 % (20-40); Mean Corpuscular HGB Conc 32.1 g/dl (31.0-35.0); Mean Corpuscular Hemoglobin 28.9 pg (27.0-33.0); Mean Corpuscular Volume 89.9 fL (80.0-98.0); Mean Platelet Volume 9.2 fL (9.4-12.3); Monocytes Absolute Auto 0.5 X10*3/uL (0.1-1.2); Monocytes Percent Auto 10.2 % (2-11); Neutrophils Absolute Auto 3.7 x10*3/uL (2.0-8.3); Neutrophils Percent Auto 70.8 % (45-73); Platelet Count 273 X10*3/uL (160-400); Red Blood Count 4.67 X10*6/uL (4.20-5.50); Red Cell Distribution Width 16.9 % (11.0-16.0); White Blood Count 5.2 X10*3/uL (4.8-10.8)
[2022-05-23 16:18] LABS: Alanine Aminotransferase 8 U/L (0-31); Albumin Level 3.1 g/dL (3.5-5.0); Alkaline Phosphatase 74 U/L (39-117); Anion Gap 16 (12-20); Aspartate Amino Transferase 10 U/L (5-31); Bilirubin Total 0.4 mg/dL (0.0-1.0); Blood Urea Nitrogen 11 mg/dL (9-16); Calcium 8.8 mg/dL (8.4-10.2); Carbon Dioxide 19 mmol/L (22-29); Chloride 110 mmol/L (96-108); Estimated Glomerular Filt Rate 57; Glucose Random 94 mg/dL (60-115); Potassium 5.2 mmol/L (3.3-5.1); Sodium 140 mmol/L (135-145); Total Protein 5.6 g/dL (6.5-8.0)
[2022-05-23 16:33] LABS: TSH reflex Free T4 1.46 uIU/mL (0.32-4.0); Vitamin B12 607 pg/mL (200-900)
== END 2022-05-23 15:15 | disposition home or self-care (01) ==
LOC: HO.HVNA 15:14
PROVIDERS: Registered Nurse; Visit Provider Internal Medicine Gastroenterology
DX: R63.4 Abnormal weight loss (principal)
CPT/HCPCS: 36415; 80053; 82607; 84443; 85025

== ENCOUNTER 2022-06-02 13:53 | Outpatient (REF) | payer MEDICARE, SELFPAY ==
[2022-06-02 17:50] LABS: CDiff Gene PCR NEGATIVE (Negative)
[2022-06-03 11:48] LABS: Adenovirus F 40/41 Not Detected (Not Detect.); Astrovirus Not Detected (Not Detect.); Campylobacter Not Detected (Not Detect.); Cryptosporidium Not Detected (Not Detect.); Cyclospora cayetanensis Not Detected (Not Detect.); E. coli EAEC Not Detected (Not Detect.); E. coli EPEC Not Detected (Not Detect.); E. coli ETEC Not Detected (Not Detect.); E. coli STEC Not Detected (Not Detect.); Entamoeba histolytica Not Detected (Not Detect.); Giardia lamblia Not Detected (Not Detect.); Norovirus GI/GII Not Detected (Not Detect.); Plesiomonas shigelloides Not Detected (Not Detect.); Rotavirus A Not Detected (Not Detect.); Salmonella Not Detected (Not Detect.); Sapovirus Not Detected (Not Detect.); Shigella sp./EIEC Not Detected (Not Detect.); Vibrio Not Detected (Not Detect.); Vibrio Cholerae Not Detected (Not Detect.); Yersinia enterocolitica Not Detected (Not Detect.)
== END 2022-06-02 13:54 | disposition home or self-care (01) ==
LOC: HO.HMGCLNP 13:53
PROVIDERS: PCP Registered Nurse; Visit Provider Internal Medicine Gastroenterology
DX: R19.7 Diarrhea, unspecified (principal)
CPT/HCPCS: 87493; 87507

== ENCOUNTER 2022-06-13 11:25 | Inpatient (IN) | payer MEDICARE, OTHER, SELFPAY ==
--- NOTE | ~2022-06-13 | XR_ITS ---
EXAMINATION: XR CHEST CLINICAL INFORMATION: Pneumonia on single view. COMPARISON: Chest 06/13/2022 TECHNIQUE: 2 views of the chest were obtained. FINDINGS: There is persistent left upper lobe infiltrate but slightly improved from previous study. Rest lungs are well-expanded and clear. The heart size and hypervascularity is normal. There are pacer electrodes in right atrium and right ventricle. No gross bony abnormality seen. XR/XR chest 2V IMPRESSION: Slightly improved left upper lobe infiltrate. This wasn't
--- NOTE | ~2022-06-13 | XR_ITS ---
EXAMINATION: XR CHEST CLINICAL INFORMATION: Shortness of breath COMPARISON: Previous chest x-ray and chest CT December 2020 TECHNIQUE: 2 views of the chest were obtained. FINDINGS: The cardiac and mediastinal contours are stable. There is a left subclavian dual chamber pacemaker in satisfactory position. There is airspace disease in the left upper lobe suggestive of pneumonia. The right lung is clear. No pleural effusion or pneumothorax. Degenerative changes of the spine. XR/XR chest 2V IMPRESSION: Airspace disease in the left upper lobe probably representing pneumonia.
--- NOTE | ~2022-06-13 | CT_ITS ---
EXAMINATION: CT ABDOMEN AND PELVIS WITH CONTRAST CLINICAL INFORMATION: Generalized abdominal pain COMPARISON: December 2021. TECHNIQUE: Multidetector volumetric images were obtained from the superior aspect of the liver through the pubic symphysis following administration 85 mL of Omnipaque 350 intravenous contrast. Sagittal and coronal reformatted images were obtained on the technologist's workstation. Oral contrast: No This CT examination was performed using dose optimization techniques as appropriate, variously including the following: *Automated exposure control *Adjustment of mA and/or kV according to patient size (this includes techniques or standardized protocols for targeted exams where dose is matched to indication/reason for exam; i.e. extremities or head) *Use of iterative reconstruction technique DLP: 333 mGy-cm FINDINGS: LUNG BASES: New patchy infiltrates and tree-in-bud opacities of the left lower lobe. LIVER, GALLBLADDER, AND BILIARY TREE: Small hypodensity inferior right lobe of liver series 3 image 28, too small to characterize. The gallbladder is unremarkable with no evidence of radiopaque gallstones, gallbladder wall thickening, or obvious pericholecystic inflammatory changes. PANCREAS: Unremarkable. SPLEEN: Unremarkable. ADRENAL GLANDS: Unremarkable. KIDNEYS AND URETERS: No new nephrolithiasis or ureteral stones. Loss of renal cortex and scarring changes not appreciably changed. Slight increased right ureteral distention. BLADDER: Bladder catheterized. Mild wall thickening may be related to incomplete distention although mild cystitis is a consideration. GASTROINTESTINAL TRACT: New small bowel dilatation in the low abdomen and pelvis with air-fluid levels since the previous evaluation. Maximal dimension of bowel loops up to 3.3 cm. There is gas and stool in colon. Findings may be related to ileus versus partial or early small bowel obstruction. No abnormal omental thickening. ABDOMINAL WALL: No significant hernia is appreciated. LYMPH NODES: No new suspicious lymphadenopathy. Prominent postoperative changes of the pelvis and retroperitoneum with multiple clips seen. VASCULAR: Infrarenal abdominal aortic aneurysm measuring 4.5 cm AP, slightly increased since previous evaluation; follow-up every 6 months and vascular consultation recommended. PELVIC VISCERA: Small pelvic free fluid. OSSEOUS STRUCTURES: Spondylosis and degenerative disc space narrowing over multiple levels. Small spurring changes of the greater trochanters. Bony demineralization. CT/CT abdomen pelvis w IV con IMPRESSION: New small bowel dilatation with air-fluid levels of the low abdomen and pelvis. Findings may be related to an ileus versus partial or early small bowel obstruction. Postoperative changes. Infrarenal abdominal aortic aneurysm at 4.5 cm AP, slightly increased since previous evaluation. Follow-up every 6 months and vascular consultation recommended. Bladder catheterized. New patchy infiltrates and tree-in-bud opacities of the left lower lobe. Other incidental findings as described.
[2022-06-13 11:36] VITALS: BP 78/58; PULSE 97; RESP 18; TEMP 35; O2SAT 96; BMI 20.4
[2022-06-13 11:56] VITALS: BP 92/68; PULSE 88; RESP 26; TEMP 36.4; O2SAT 95
[2022-06-13 11:59] LABS: MANUAL DIFF FLAG NO
[2022-06-13 12:01] LABS: Basophils Absolute Auto 0.1 X10*3/uL (0.0-0.2); Basophils Percent Auto 0.4 % (0-2); Eosinophils Percent Auto 0.1 % (0-4); Hematocrit 40.4 % (37.0-47.0); Hemoglobin 13.4 g/dl (12.0-16.0); Imm Gran Abs Auto 0.09 X10*3/uL (0.00-0.03); Imm Gran Pct Auto 0.6 % (0.0-0.4); Lymphocytes Absolute Auto 0.9 X10*3/uL (1.2-4.9); Lymphocytes Percent Auto 6.1 % (20-40); Mean Corpuscular HGB Conc 33.2 g/dl (31.0-35.0); Mean Corpuscular Hemoglobin 29.3 pg (27.0-33.0); Mean Corpuscular Volume 88.4 fL (80.0-98.0); Mean Platelet Volume 9.5 fL (9.4-12.3); Monocytes Absolute Auto 1.4 X10*3/uL (0.1-1.2); Monocytes Percent Auto 9.6 % (2-11); Neutrophils Absolute Auto 11.6 x10*3/uL (2.0-8.3); Neutrophils Percent Auto 83.2 % (45-73); Platelet Count 309 X10*3/uL (160-400); Red Blood Count 4.57 X10*6/uL (4.20-5.50); Red Cell Distribution Width 16.3 % (11.0-16.0)
[2022-06-13 12:50] LABS: Alanine Aminotransferase 27 U/L (0-31); Albumin Level 3.1 g/dL (3.5-5.0); Alkaline Phosphatase 133 U/L (39-117); Anion Gap 16 (12-20); Aspartate Amino Transferase 56 U/L (5-31); Bilirubin Direct 0.2 mg/dL (0.0-0.5); Bilirubin Total 0.5 mg/dL (0.0-1.0); Blood Urea Nitrogen 30 mg/dL (9-16); Calcium 9.1 mg/dL (8.4-10.2); Carbon Dioxide 18 mmol/L (22-29); Chloride 104 mmol/L (96-108); Creatinine Clr Calc Pharmacy 39.7; Estimated Glomerular Filt Rate 49; Glucose Random 169 mg/dL (60-115); Lipase 29 U/L (8-78); Potassium 3.7 mmol/L (3.3-5.1); Sodium 134 mmol/L (135-145); Total Protein 6.2 g/dL (6.5-8.0)
[2022-06-13 12:59] VITALS: BP 94/63; PULSE 90; RESP 19; O2SAT 95
--- NOTE | 2022-06-13 13:18 | ECG_ITS ---
Test Reason : CP Blood Pressure : / mmHG Vent. Rate : 085 BPM Atrial Rate : 000 BPM P-R Int : 000 ms QRS Dur : 090 ms QT Int : 356 ms P-R-T Axes : 000 -16 160 degrees QTc Int : [address] & T wave abnormality, consider lateral ischemia Abnormal ECG When compared with ECG of 31-DEC-2020 16:51, Nonspecific T wave abnormality now evident in Anterior leads Referred By: Chau Corea Electronically Signed By:BHAVESH MONIQUE
--- NOTE | 2022-06-13 13:48 | ED_ITS ---
HPI - General Adult General Chief complaint: General Medical Stated complaint: multi issues Time Seen by Provider: 06/13/22 13:12 Source: patient Mode of arrival: ambulatory Limitations: no limitations History of Present Illness HPI narrative: 71-year-old female presents with multiple complaints: 1) Abdominal pain Generalized Crampy Intermittent Does not radiate. Moderate to severe Started 4 weeks ago after colonoscopy Associated with nonbloody diarrhea Never had this before Not worse with food. No f/c/s 2) SOB started 4 days ago No clear relieving or exacerbating features breathing more with mouth open no f/c/s Cough which is nonproductive No chest pain No edema Similar to when she had sepsis in the past Related Data Home Medications Medication Instructions Recorded Confirmed ferrous sulfate 325 mg (65 mg 325 mg PO BID 04/07/20 05/12/22 iron) tablet folic acid 1 mg tablet 1 mg PO DAILY 04/07/20 05/12/22 calcium carbonate 200 mg calcium 200 mg PO TID PRN Heartburn 02/10/21 05/12/22 (500 mg) chewable tablet (Tums) simvastatin 40 mg tablet 40 mg PO BEDTIME 02/10/21 05/12/22 ascorbic acid (vitamin C) 500 mg 500 mg PO DAILY 03/31/21 05/12/22 tablet metoprolol succinate 25 mg 12.5 mg PO BID 12/24/21 05/12/22 tablet,extended release 24 hr estradiol 0.01% (0.1 mg/gram) g vaginal 01/25/22 01/25/22 vaginal cream phytonadione (vitamin K1) 100 mcg 100 mcg PO DAILY 01/25/22 05/12/22 tablet albuterol sulfate 90 mcg/actuation 2 puff inhalation Q6H PRN wheezing 05/12/22 05/12/22 aerosol inhaler hydrocodone 7.5 mg-acetaminophen 1 tab PO Q6H PRN severe pain 05/12/22 05/12/22 325 mg tablet ipratropium 0.5 mg-albuterol 3 mg 1 inhalation Q4-6H PRN wheezing 05/12/22 05/12/22 (2.5 mg base)/3 mL nebulization soln Previous Rx's Medication Instructions Recorded mecobalamin (vitamin B12) 1,000 1,000 mcg PO DAILY #90 tabs 12/03/21 mcg chewable tablet cholecalciferol (vitamin D3) 1,250 1,250 mcg PO QWEEK #10 caps 12/20/21 mcg (50,000 unit) capsule Anoro Ellipta 62.5 mcg-25 1 ea PO DAILY #60 ea 12/22/21 mcg/actuation powder for inhalation (umeclidinium-vilanterol) catheter insertion kit #2 ea 01/25/22 catheter irrigation kit #2 ea 01/25/22 abdi catheters #2 ea 01/25/22 leg bags #2 ea 01/25/22 night bags #1 ea 01/25/22 sterile water #1 ea 01/25/22 dicyclomine 10 mg capsule 10 mg PO BID #60 caps 02/23/22 digoxin 250 mcg (0.25 mg) tablet 250 mcg PO DAILY #90 tabs 04/18/22 sod phos mono-sod phos dibasic 1.5 4 tab PO Q15M 1 day #32 tabs 05/12/22 gram (1.102-0.398) tablet (OsmoPrep) rivaroxaban 20 mg tablet (Xarelto) 20 mg PO QPM #90 tabs 06/03/22 lansoprazole 30 mg capsule,delayed 30 mg PO DAILY #90 caps 06/08/22 release prochlorperazine maleate 5 mg 5 mg PO BID PRN for 06/08/22 tablet nausea/vomiting #30 tabs Lactobacillus acidophilus 1 2,000 mmu cells PO DAILY #30 caps 06/13/22 billion cell capsule azithromycin 250 mg tablet 250 mg PO DAILY 4 days #4 tabs 06/13/22 cefdinir 300 mg capsule 300 mg PO BID #20 caps 06/13/22 Allergies Allergy/AdvReac Type Severity Reaction Status Date / Time No Known Allergies Allergy Verified 06/13/22 11:35 [No Known Allergies*] [facility] Past Medical History Medical History (Updated 06/13/22 @ 17:54 by Chau Corea MD) Cardiac pacemaker in situ COPD (chronic obstructive pulmonary disease) Dyspnea on exertion Exercise hypoxemia GERD (gastroesophageal reflux disease) HTN (hypertension) Hypertension Legally blind On beta mayra at home Persistent atrial fibrillation Pneumonia Retention, urine Sick sinus syndrome Surgical History (Updated 05/12/22 @ 14:12 by Lilia Sapp RN) History of cardioversion History of endoscopy History of esophagogastroduodenoscopy (EGD) History of radiofrequency ablation (RFA) for complex left atrial arrhythmia Hx of cardiac pacemaker Hx of colonoscopy Hx of hysterectomy Family History Family History Father CHF (congestive heart failure) Cancer Pacemaker Mother Emphysema lung Social History Social History Alcohol intake: never Patient Tobacco Use Status: Former Tobacco user Quit Date: 30 years ago Smoked in Last 30 Days: No Use of substances other than those prescribed or required for medical reasons: No Advance Directives: Yes Advance Directives on File: No Physical Exam ED Vital Signs: Vital Signs - 24 hr 06/13/22 11:36 06/13/22 11:56 06/13/22 12:59 Temperature 95 F L 97.6 F Pulse Rate 97 88 90 Respiratory Rate 18 26 H 19 Blood Pressure 78/58 L 92/68 94/63 Pulse Oximetry 96 95 95 Oxygen Delivery Method Room Air Room Air Room Air 06/13/22 14:12 06/13/22 18:12 Temperature 98.0 F Pulse Rate 89 85 Respiratory Rate 25 H Blood Pressure 152/94 H Pulse Oximetry 95 Oxygen Delivery Method Room Air BMI result Body Mass Index 20.4 GEN: Well developed, no acute distress, alert, oriented HEENT: Normocephalic, atraumatic, normal external ears, nose appears normal, no oropharyngeal edema or exudates Eyes: Normal to appearance Neck: Supple, no lymphadenopathy Respiratory: Talks in complete sentences, no respiratory distress, crackles left lung base Cardiovascular: Regular rate and rhythm, no murmurs rubs or gallops Abdomen: Soft, nontender, nondistended, no guarding, no rebound Back: No CVA tenderness Extremities: No clubbing cyanosis or edema Neurologic: No focal neurologic deficits, cranial nerves 2-12 intact, strength is 5/5 bilaterally Skin: No rash Course Course Course Narrative: 71 yo female with SOB and abdominal pain. ECG shows afib, which is old. On dig and anticoagulants. Lungs with left crackles. Normal oxygen saturation and normal HR. No edema Will get XR and labs. Abd also with pain x 4 weeks. Abd slightly tender without rebound or guarding. CT of the abd. Reevaluate. Reevaluation(s) Reevaluation #1: discussed current results with patient and daughter. Patient HD stable, oxygen saturation is good. Will give IVF and ABX and reevaluate for home of admission Time: 15:22 Reevaluation #2: Patient CT scan demonstrated possible ileus versus early or partial small bowel obstruction. However, this highly unlikely given patient has loose bowel movements daily including today. Most likely this represents enteritis as opposed to ileus versus small-bowel obstruction. Patient likely does not warrant any additional studies at this time. Time: 16:22 Reevaluation #3: Patient is doing well. She has no new complaints. Oxygen saturations remained appropriate. Her blood pressure is stable. Patient receiving IV foot antibiotics. She has received IV fluids. Patient does not clearly require hospitalization at this time. Will send prescription to her pharmacy for oral antibiotics. She was instructed to return for any worsening or concerning symptoms. Time: 17:53 Medications Administered Discontinued Medications Generic Name Dose Route Start Last Admin Trade Name Freq PRN Reason Stop Dose Admin Albuterol Sulfate 2.5 mg 06/13/22 13:18 06/13/22 14:09 Albuterol Sulfate (0.083%) 2.5 Mg/3 Ml Vial.Neb INHALE 06/13/22 13:19 2.5 mg ONCE ONE Administration Famotidine 20 mg 06/13/22 13:22 06/13/22 14:34 Famotidine/Pf 20 Mg/2 Ml Vial IVPUSH 06/13/22 13:23 20 mg ONCE ONE Administration Sodium Chloride 1,000 mls @ 999 mls/hr 06/13/22 15:15 06/13/22 18:04 Ns IV 06/13/22 16:15 Infused .Q1H1M LUCY Infusion Ceftriaxone Sodium 1 gm/ 50 mls @ 100 mls/hr 06/13/22 15:14 06/13/22 18:04 Sodium Chloride IV 06/13/22 15:43 Infused ONCE ONE Infusion Azithromycin 500 mg/ Sodium 250 mls @ 125 mls/hr 06/13/22 15:14 06/13/22 17:44 Chloride IV 06/13/22 17:13 125 mls/hr ONCE ONE Administration Iohexol 100 ml 06/13/22 14:10 06/13/22 14:10 Iohexol 350 Mg/Ml 100 Ml Infus..Btl IV 06/13/22 14:11 85 ml ONCE ONE Administration Medical Decision Making Medical Decision Making [facility] Narrative: 71 yo female with multiple chronic medical conditions: 1) SOB Left sided crackles DD: pneumonia, CHF, bronchitis, COVID, Flu, cardiac Plan: Neb, check labs, CXR, possible ABX 3) Abd pain, chronic x 4 weeks with diarrhea, abd with mild tenderness DD: abd pain, bacterial overgrowth, colitis, diverticulitis, dysmotility, mesenteric ischemia Plan: check labs, CT abd. Differential Diagnosis Differential Diagnoses: The differential diagnosis associated with the presentation includes (see above) Lab Data [facility] Lab Attestation statement: I reviewed the patient's lab results. 06/13/22 11:54 06/13/22 11:54 Labs: Lab Results 06/13/22 06/13/22 06/13/22 Range/Units 11:54 11:54 14:04 WBC 14.0 H (4.8-10.8) X10*3/uL RBC 4.57 (4.20-5.50) X10*6/uL Hgb 13.4 (12.0-16.0) g/dl Hct 40.4 (37.0-47.0) % MCV 88.4 (80.0-98.0) fL MCH 29.3 (27.0-33.0) pg MCHC 33.2 (31.0-35.0) g/dl RDW 16.3 H (11.0-16.0) % Plt Count 309 (160-400) X10*3/uL MPV 9.5 (9.4-12.3) fL Immature Gran % (Auto) 0.6 H (0.0-0.4) % Neut % (Auto) 83.2 H (45-73) % Lymph % (Auto) 6.1 L (20-40) % [place] % (Auto) 9.6 (2-11) % Eos % (Auto) 0.1 (0-4) % Baso % (Auto) 0.4 (0-2) % Lymph # (Auto) 0.9 L (1.2-4.9) X10*3/uL [place] # (Auto) 1.4 H (0.1-1.2) X10*3/uL Eos # (Auto) 0.0 (0.0-0.4) X10*3/uL Baso # (Auto) 0.1 (0.0-0.2) X10*3/uL Abs Immat Gran (auto) 0.09 H (0.00-0.03) X10*3/uL Absolute Neuts (auto) 11.6 H (2.0-8.3) x10*3/uL Absolute Nucleated RBC 0.000 (0.0-0.012) X10*3/uL Nucleated RBC % (auto) 0.0 (0.0-0.2) /100WBC Sodium 134 L (135-145) mmol/L Potassium 3.7 D (3.3-5.1) mmol/L Chloride 104 (96-108) mmol/L Carbon Dioxide 18 L (22-29) mmol/L Anion Gap 16 (12-20) BUN 30 H (9-16) mg/dL Creatinine 1.09 (0.5-1.4) mg/dL Estim Creat Clear Calc 39.7 Estimated GFR 49 Random Glucose 169 H (60-115) mg/dL Lactic Acid 1.3 (0.5-2.0) mmol/L Calcium 9.1 (8.4-10.2) mg/dL Total Bilirubin 0.5 (0.0-1.0) mg/dL Direct Bilirubin 0.2 (0.0-0.5) mg/dL AST 56 H (5-31) U/L ALT 27 (0-31) U/L Alkaline Phosphatase 133 H (39-117) U/L B-Natriuretic Peptide (<100) pg/mL Total Protein 6.2 L (6.5-8.0) g/dL Albumin 3.1 L (3.5-5.0) g/dL Lipase 29 (8-78) U/L COVID-19 (ELO) (Negative) COVID-19 Clin Com Influenza Type A (JANET) (Negative) Influenza Type B (JANET) (Negative) Influenza A & B Note 06/13/22 06/13/22 06/13/22 Range/Units 14:04 14:04 14:04 WBC (4.8-10.8) X10*3/uL RBC (4.20-5.50) X10*6/uL Hgb (12.0-16.0) g/dl Hct (37.0-47.0) % MCV (80.0-98.0) fL MCH (27.0-33.0) pg MCHC (31.0-35.0) g/dl RDW (11.0-16.0) % Plt Count (160-400) X10*3/uL MPV (9.4-12.3) fL Immature Gran % (Auto) (0.0-0.4) % Neut % (Auto) (45-73) % Lymph % (Auto) (20-40) % [place] % (Auto) (2-11) % Eos % (Auto) (0-4) % Baso % (Auto) (0-2) % Lymph # (Auto) (1.2-4.9) X10*3/uL [place] # (Auto) (0.1-1.2) X10*3/uL Eos # (Auto) (0.0-0.4) X10*3/uL Baso # (Auto) (0.0-0.2) X10*3/uL Abs Immat Gran (auto) (0.00-0.03) X10*3/uL Absolute Neuts (auto) (2.0-8.3) x10*3/uL Absolute Nucleated RBC (0.0-0.012) X10*3/uL Nucleated RBC % (auto) (0.0-0.2) /100WBC Sodium (135-145) mmol/L Potassium (3.3-5.1) mmol/L Chloride (96-108) mmol/L Carbon Dioxide (22-29) mmol/L Anion Gap (12-20) BUN (9-16) mg/dL Creatinine (0.5-1.4) mg/dL Estim Creat Clear Calc Estimated GFR Random Glucose (60-115) mg/dL Lactic Acid (0.5-2.0) mmol/L Calcium (8.4-10.2) mg/dL Total Bilirubin (0.0-1.0) mg/dL Direct Bilirubin (0.0-0.5) mg/dL AST (5-31) U/L ALT (0-31) U/L Alkaline Phosphatase (39-117) U/L B-Natriuretic Peptide 94 (<100) pg/mL Total Protein (6.5-8.0) g/dL Albumin (3.5-5.0) g/dL Lipase (8-78) U/L COVID-19 (ELO) Negative (Negative) COVID-19 Clin Com See Note Influenza Type A (JANET) Negative (Negative) Influenza Type B (JANET) Negative (Negative) Influenza A & B Note See Note Independent Interpretation I performed an independent interpretation of an: EKG (Afib 85, no acute ST elevations or depessions, possible dig effect) and Plain X-Ray (left lower lob infiltrate) Radiology Impression Discussion of test interpretation with radiology: I have reviewed the radiologist's reading. Radiologist Impression: CT/CT abdomen pelvis w IV con IMPRESSION: New small bowel dilatation with air-fluid levels of the low abdomen and pelvis. Findings may be related to an ileus versus partial or early small bowel obstruction. ? Postoperative changes. ? Infrarenal abdominal aortic aneurysm at 4.5 cm AP, slightly increased since previous evaluation. Follow-up every 6 months and vascular consultation recommended. ? Bladder catheterized. ? New patchy infiltrates and tree-in-bud opacities of the left lower lobe. ? Other incidental findings as described. Dictated By: Christopher Antoine Signed By: <Electronically signed by Shiva Antoine in OV> 06/13/22 1533 Independent Historian Clinical information obtained from an independent historian. History obtained from or confirmed by: Other (daughter) Prescription Management I considered prescription management with: Pain Medication and Antibiotic Chronic Conditions Patient?s care impacted by: Other (chronic afib) Discharge Plan Discharge Clinical Impression: Pneumonia, Atrial fibrillation, Leukocytopenia, Dyspnea, Diarrhea Patient Disposition: Home, Self-Care Instructions: A-fib (Atrial Fibrillation) (ED), Acute Diarrhea (ED), Community Acquired Pneumonia (ED) Prescriptions: New cefdinir 300 mg capsule 300 mg PO BID Qty: 20 0RF azithromycin 250 mg tablet 250 mg PO DAILY 4 Days Qty: 4 0RF Rx Instructions: start on day 2 of therapy Lactobacillus acidophilus 1 billion cell capsule 2,000 mmu cells PO DAILY Qty: 30 0RF No Action mecobalamin (vitamin B12) 1,000 mcg tablet,chewable 1,000 mcg PO DAILY Qty: 90 0RF cholecalciferol (vitamin D3) 1,250 mcg (50,000 unit) capsule 1,250 mcg PO QWEEK Qty: 10 0RF Anoro Ellipta 62.5-25 mcg/actuation blister with device 1 ea PO DAILY Qty: 60 2RF metoprolol succinate 25 mg tablet extended release 24 hr 12.5 mg PO BID dicyclomine 10 mg capsule 10 mg PO BID Qty: 60 3RF digoxin 250 mcg (0.25 mg) tablet 250 mcg PO DAILY Qty: 90 3RF OsmoPrep 1.5 gram tablet 4 tab PO Q15M 1 Days Qty: 32 0RF Rx Instructions: 4 pills at 6 p.m. with 8 oz. of water 4 pills at 6:15 p.m. with 8 oz. of water 4 pills at 6:30 p.m. with 8 oz. of water 4 pills at 6:45 p.m. with 8 oz. of water 4 pills at 7 p.m. with 8 oz. of water 4 pill at 11 pm with water 4 pill 11.15 pm with 8 oz water pill 11 30 pm with 8 oz water Xarelto 20 mg tablet 20 mg PO QPM Qty: 90 1RF prochlorperazine maleate 5 mg tablet 5 mg PO BID PRN (Reason: for nausea/vomiting) Qty: 30 0RF lansoprazole 30 mg capsule,delayed release(DR/EC) 30 mg PO DAILY Qty: 90 3RF ipratropium-albuterol 0.5 mg-3 mg(2.5 mg base)/3 mL solution for nebulization 1 inhalation Q4-6H PRN (Reason: wheezing) hydrocodone-acetaminophen 7.5-325 mg tablet 1 tab PO Q6H PRN (Reason: severe pain) albuterol sulfate 90 mcg/actuation HFA aerosol inhaler 2 puff inhalation Q6H PRN (Reason: wheezing) ferrous sulfate 325 mg (65 mg iron) tablet 325 mg PO BID folic acid 1 mg tablet 1 mg PO DAILY ascorbic acid (vitamin C) 500 mg tablet 500 mg PO DAILY phytonadione (vitamin K1) 100 mcg tablet 100 mcg PO DAILY estradiol 0.01 % (0.1 mg/gram) cream vaginal (DME) night bags See Rx Instructions .Route .MEDSUPPLY Qty: 1 11RF Rx Instructions: As directed- 1 catheter night bag per month (DME) catheter insertion kit See Rx Instructions .Route .MEDSUPPLY Qty: 2 11RF Rx Instructions: As directed- 2 kits per month (DME) abdi catheters 18 [place] See Rx Instructions .Route .MEDSUPPLY Qty: 2 11RF Rx Instructions: As directed- 2 catheters per month (DME) catheter irrigation kit See Rx Instructions .Route .MEDSUPPLY Qty: 2 11RF Rx Instructions: As directed- 2 kits per month (DME) sterile water See Rx Instructions .Route .MEDSUPPLY Qty: 1 11RF Rx Instructions: As directed for abdi catheter irrigation (DME) leg bags See Rx Instructions .Route .MEDSUPPLY Qty: 2 11RF Rx Instructions: 2 catheter leg bags per month simvastatin 40 mg tablet 40 mg PO BEDTIME calcium carbonate [Tums] 200 mg calcium (500 mg) tablet,chewable 200 mg PO TID PRN (Reason: Heartburn) Referrals: Elena Jacobo NP [Primary Care Provider] - 2 days
[2022-06-13] MEDS: Albuterol Sulfate (0.083%) 2.5 MG/3 ML VIAL.NEB INHALE (14:09)
[2022-06-13] MEDS: iohexoL 350 MG/ML 100 ML INFUS..BTL IV (14:10)
[2022-06-13 14:12] VITALS: PULSE 89; O2SAT 100
[2022-06-13 14:30] LABS: Lactic Acid 1.3 mmol/L (0.5-2.0)
[2022-06-13 14:34] LABS: COVID-19 Test Negative (Negative); IDNOW Serial# 08D9AD1C
[2022-06-13] MEDS: Famotidine/PF 20 MG/2 ML VIAL IVPUSH (14:34)
[2022-06-13 14:41] LABS: B Type Natriuretic Peptide 94 pg/mL (<100)
[2022-06-13 14:56] LABS: IDNOW Serial# BCCEAD1C; Influenza A Negative (Negative); Influenza B2 Negative (Negative)
--- NOTE | 2022-06-13 15:44 | MHC.EDTECH ---
Call contact Danae when ready for d/c. [phone].
[2022-06-13] MEDS: cefTRIAXone sodium 1 GM in 0.9 % Sodium Chloride 50 ML IV (15:50)
[2022-06-13] MEDS: 0.9 % Sodium Chloride 1,000 ML 999 ML IV (15:53)
[2022-06-13] MEDS: Azithromycin 500 MG in 0.9 % Sodium Chloride 250 ML 125 MG IV (17:44)
[2022-06-13 18:12] VITALS: BP 152/94; PULSE 85; RESP 25; TEMP 36.7; O2SAT 95
[2022-06-13 18:37] LABS: Appearance Urine Clear; Color Urine Yellow; Glucose Urine UA Negative (Negative); Leukocyte Esterase Urine Negative (Negative); Nitrite Urine Negative (Negative); PH 6.5 (5.0-9.0); Specific Gravity - Urine >= 1.030 (1.005-1.025); UMIC TRIGGER UACC YES; Urine Blood Negative (Negative); Urine Ketones Negative (Negative); Urine Protein 30 (1+) mg/dL (Neg-Trace)
[2022-06-13 18:43] LABS: Bacteria Urine None Seen (None Seen); Hyaline Casts Urine 0-2 /LPF (0-2); RBC Urine 0-2 /HPF (0-2); Squamous Epithelial Cell Urine 0-2 /HPF (0-2); WBC Urine 0-5 /HPF (0-5)
--- NOTE | 2022-06-13 20:36 | PHA.MEDREC ---
Pharmacy Consult ? Medication Reconciliation Pharmacy has completed the medication reconciliation. Pt unsure of what she takes, called daughter Danae who stated she gets prescriptions from [facility] in [place]; used claim history and confirmed OTC meds with Danae
--- NOTE | 2022-06-13 21:55 | MHC.CM.ED ---
CM met with patient. Pt is agreeable to Home PT. Will not go to a facility. Has had services in the past. Pt believes she is active with [facility] for monthly catheter maintenance. Lives with . Has no DME. Has MOW with [facility]. States has had Moderna x5. HCP reviewed, completed and signed. Copies given Uploaded into [facility] [employer] and [facility] [employer]. HCP/daughter, Danae Sommers ([phone]). Awaiting PT evaluation. No referrals placed pending PT evaluation. Daughter will provide transport home. CM following for discharge planning.
--- NOTE | 2022-06-13 23:05 | PC.NURSE ---
Report given to nurse Lamas. Pt being transferred to [facility] and aware of plan of care.
[2022-06-13 23:10] VITALS: BP 109/71; PULSE 92; RESP 14; TEMP 36.7
--- NOTE | 2022-06-13 23:20 | PC.NURSE ---
Pt sleeping at the bedside in no apparent distress. Breaths are even regular and unlabored with equal chest rises. Will continue to monitor.
[2022-06-14] VITALS (7 sets, daily range): BP systolic 117–166; BP diastolic 69–98; PULSE 65–99; RESP 16–18; TEMP 36.1–37.2; O2SAT 93–98; BMI 23.7
--- NOTE | 2022-06-14 01:36 | PC.NURSE ---
Pt came in from ED, alert and oriented but forgetful.With abdi that is clamped. Has multiple incontinence with stool. Stool is dark greenish liquidy stool. Flexiseal was placed. Abdi cath attached to a abdi bag. Camera monitor was used because pt is trying to get out from bed. High fall risk.
--- NOTE | 2022-06-14 01:54 | PC.NURSE ---
Addendum entered by Melinda Meade RN 06/14/22 05:44: 0544 MD notified ,pt started having nausea and abdominal pain. Also mentioned to MD that pt has dark stool. 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 Addendum entered by Melinda Meade RN 06/14/22 05:26: Pt is gets more confused. She is having some visual hallucination. remains to be on camera monitor Original Note: Assumed care at 2300. Pt was a new transfer from ED.
[2022-06-14] MEDS: Ondansetron ODT 4 MG TAB.RAPDIS TRANSLINGU (06:06)
--- NOTE | 2022-06-14 07:16 | ED_ITS ---
HPI - General Adult General Chief complaint: General Medical Stated complaint: multi issues Time Seen by Provider: 06/13/22 13:12 Source: patient Mode of arrival: ambulatory Limitations: no limitations Related Data Home Medications Medication Instructions Recorded Confirmed ferrous sulfate 325 mg (65 mg 325 mg PO BID 04/07/20 06/13/22 iron) tablet folic acid 1 mg tablet 1 mg PO DAILY 04/07/20 06/13/22 calcium carbonate 200 mg calcium 200 mg PO TID PRN Heartburn 02/10/21 06/13/22 (500 mg) chewable tablet (Tums) simvastatin 40 mg tablet 40 mg PO BEDTIME 02/10/21 06/13/22 ascorbic acid (vitamin C) 500 mg 500 mg PO DAILY 03/31/21 06/13/22 tablet metoprolol succinate 25 mg 25 mg PO BID 12/24/21 06/13/22 tablet,extended release 24 hr albuterol sulfate 90 mcg/actuation 2 puff inhalation Q6H PRN wheezing 05/12/22 06/13/22 aerosol inhaler hydrocodone 7.5 mg-acetaminophen 1 tab PO Q6H PRN severe pain 05/12/22 06/13/22 325 mg tablet ipratropium 0.5 mg-albuterol 3 mg 3 ml inhalation Q4-6H PRN wheezing 05/12/22 06/13/22 (2.5 mg base)/3 mL nebulization soln ondansetron HCl 4 mg tablet 4 mg PO Q6H PRN nausea/vomiting 06/13/22 06/13/22 rivaroxaban 20 mg tablet (Xarelto) 20 mg PO DAILY@1700 06/13/22 06/13/22 Previous Rx's Medication Instructions Recorded catheter insertion kit #2 ea 01/25/22 catheter irrigation kit #2 ea 01/25/22 abdi catheters #2 ea 01/25/22 leg bags #2 ea 01/25/22 night bags #1 ea 01/25/22 sterile water #1 ea 01/25/22 dicyclomine 10 mg capsule 10 mg PO BID #60 caps 02/23/22 digoxin 250 mcg (0.25 mg) tablet 250 mcg PO DAILY #90 tabs 04/18/22 lansoprazole 30 mg capsule,delayed 30 mg PO DAILY #90 caps 06/08/22 release prochlorperazine maleate 5 mg 5 mg PO BID PRN for 06/08/22 tablet nausea/vomiting #30 tabs Lactobacillus acidophilus 1 2,000 mmu cells PO DAILY #30 caps 06/13/22 billion cell capsule azithromycin 250 mg tablet 250 mg PO DAILY 4 days #4 tabs 06/13/22 cefdinir 300 mg capsule 300 mg PO BID #20 caps 06/13/22 Allergies Allergy/AdvReac Type Severity Reaction Status Date / Time No Known Allergies Allergy Verified 06/13/22 11:35 [No Known Allergies*] [facility] Past Medical History Medical History (Updated 06/13/22 @ 17:54 by Chau Corea MD) Cardiac pacemaker in situ COPD (chronic obstructive pulmonary disease) Dyspnea on exertion Exercise hypoxemia GERD (gastroesophageal reflux disease) HTN (hypertension) Hypertension Legally blind On beta mayra at home Persistent atrial fibrillation Pneumonia Retention, urine Sick sinus syndrome Surgical History (Updated 05/12/22 @ 14:12 by Lilia Sapp RN) History of cardioversion History of endoscopy History of esophagogastroduodenoscopy (EGD) History of radiofrequency ablation (RFA) for complex left atrial arrhythmia Hx of cardiac pacemaker Hx of colonoscopy Hx of hysterectomy Family History Family History Father CHF (congestive heart failure) Cancer Pacemaker Mother Emphysema lung Social History Social History Alcohol intake: never Patient Tobacco Use Status: Former Tobacco user Quit Date: 30 years ago Smoked in Last 30 Days: No Use of substances other than those prescribed or required for medical reasons: No Advance Directives: Yes Advance Directives on File: Yes Advance Directives Date on File: 06/13/22 Physical Exam ED Vital Signs: Vital Signs - 24 hr 06/13/22 11:36 06/13/22 11:56 06/13/22 12:59 Temperature 95 F L 97.6 F Pulse Rate 97 88 90 Respiratory Rate 18 26 H 19 Blood Pressure 78/58 L 92/68 94/63 Pulse Oximetry 96 95 95 Oxygen Delivery Method Room Air Room Air Room Air Oxygen Flow Rate 06/13/22 14:12 06/13/22 18:12 06/13/22 23:10 Temperature 98.0 F 98.1 F Pulse Rate 89 85 92 Respiratory Rate 25 H 14 Blood Pressure 152/94 H 109/71 Pulse Oximetry 95 Oxygen Delivery Method Room Air Oxygen Flow Rate 06/14/22 00:30 06/14/22 05:08 06/14/22 05:41 Temperature 98.5 F 98.5 F Pulse Rate 81 99 Respiratory Rate 18 16 Blood Pressure 117/73 166/83 H Pulse Oximetry 98 95 Oxygen Delivery Method Room Air Room Air Oxygen Flow Rate 95 BMI result Body Mass Index 20.4 Medications Administered Discontinued Medications Generic Name Dose Route Start Last Admin Trade Name Freq PRN Reason Stop Dose Admin Albuterol Sulfate 2.5 mg 06/13/22 13:18 06/13/22 14:09 Albuterol Sulfate (0.083%) 2.5 Mg/3 Ml Vial.Neb INHALE 06/13/22 13:19 2.5 mg ONCE ONE Administration Famotidine 20 mg 06/13/22 13:22 06/13/22 14:34 Famotidine/Pf 20 Mg/2 Ml Vial IVPUSH 06/13/22 13:23 20 mg ONCE ONE Administration Sodium Chloride 1,000 mls @ 999 mls/hr 06/13/22 15:15 06/13/22 18:04 Ns IV 06/13/22 16:15 Infused .Q1H1M LUCY Infusion Ceftriaxone Sodium 1 gm/ 50 mls @ 100 mls/hr 06/13/22 15:14 06/13/22 18:04 Sodium Chloride IV 06/13/22 15:43 Infused ONCE ONE Infusion Azithromycin 500 mg/ Sodium 250 mls @ 125 mls/hr 06/13/22 15:14 06/13/22 23:50 Chloride IV 06/13/22 17:13 Infused ONCE ONE Infusion Iohexol 100 ml 06/13/22 14:10 06/13/22 14:10 Iohexol 350 Mg/Ml 100 Ml Infus..Btl IV 06/13/22 14:11 85 ml ONCE ONE Administration Ondansetron HCl 4 mg 06/14/22 06:01 06/14/22 06:06 Ondansetron Odt 4 Mg Tab.Rapdis TRANSLINGU 06/14/22 06:02 4 mg ONCE ONE Administration Medical Decision Making Lab Data 06/13/22 11:54 06/13/22 11:54 Labs: Lab Results 06/13/22 06/13/22 06/13/22 Range/Units 11:54 11:54 14:04 WBC 14.0 H (4.8-10.8) X10*3/uL RBC 4.57 (4.20-5.50) X10*6/uL Hgb 13.4 (12.0-16.0) g/dl Hct 40.4 (37.0-47.0) % MCV 88.4 (80.0-98.0) fL MCH 29.3 (27.0-33.0) pg MCHC 33.2 (31.0-35.0) g/dl RDW 16.3 H (11.0-16.0) % Plt Count 309 (160-400) X10*3/uL MPV 9.5 (9.4-12.3) fL Immature Gran % (Auto) 0.6 H (0.0-0.4) % Neut % (Auto) 83.2 H (45-73) % Lymph % (Auto) 6.1 L (20-40) % [place] % (Auto) 9.6 (2-11) % Eos % (Auto) 0.1 (0-4) % Baso % (Auto) 0.4 (0-2) % Lymph # (Auto) 0.9 L (1.2-4.9) X10*3/uL [place] # (Auto) 1.4 H (0.1-1.2) X10*3/uL Eos # (Auto) 0.0 (0.0-0.4) X10*3/uL Baso # (Auto) 0.1 (0.0-0.2) X10*3/uL Abs Immat Gran (auto) 0.09 H (0.00-0.03) X10*3/uL Absolute Neuts (auto) 11.6 H (2.0-8.3) x10*3/uL Absolute Nucleated RBC 0.000 (0.0-0.012) X10*3/uL Nucleated RBC % (auto) 0.0 (0.0-0.2) /100WBC Sodium 134 L (135-145) mmol/L Potassium 3.7 D (3.3-5.1) mmol/L Chloride 104 (96-108) mmol/L Carbon Dioxide 18 L (22-29) mmol/L Anion Gap 16 (12-20) BUN 30 H (9-16) mg/dL Creatinine 1.09 (0.5-1.4) mg/dL Estim Creat Clear Calc 39.7 Estimated GFR 49 Random Glucose 169 H (60-115) mg/dL Lactic Acid 1.3 (0.5-2.0) mmol/L Calcium 9.1 (8.4-10.2) mg/dL Total Bilirubin 0.5 (0.0-1.0) mg/dL Direct Bilirubin 0.2 (0.0-0.5) mg/dL AST 56 H (5-31) U/L ALT 27 (0-31) U/L Alkaline Phosphatase 133 H (39-117) U/L B-Natriuretic Peptide (<100) pg/mL Total Protein 6.2 L (6.5-8.0) g/dL Albumin 3.1 L (3.5-5.0) g/dL Lipase 29 (8-78) U/L Urine Color Urine Appearance Urine pH (5.0-9.0) Ur Specific [place] (1.005-1.025) Urine Protein (Neg-Trace) mg/dL Urine Glucose (UA) (Negative) mg/dL Urine Ketones (Negative) mg/dL Urine Blood (Negative) Urine Nitrite (Negative) Ur Leukocyte Esterase (Negative) Urine RBC (0-2) /HPF Urine WBC (0-5) /HPF Ur Squamous Epith Cells (0-2) /HPF Urine Bacteria (None Seen) Hyaline Casts (0-2) /LPF COVID-19 (ELO) (Negative) COVID-19 Clin Com Influenza Type A (JANET) (Negative) Influenza Type B (JANET) (Negative) Influenza A & B Note 06/13/22 06/13/22 06/13/22 Range/Units 14:04 14:04 14:04 WBC (4.8-10.8) X10*3/uL RBC (4.20-5.50) X10*6/uL Hgb (12.0-16.0) g/dl Hct (37.0-47.0) % MCV (80.0-98.0) fL MCH (27.0-33.0) pg MCHC (31.0-35.0) g/dl RDW (11.0-16.0) % Plt Count (160-400) X10*3/uL MPV (9.4-12.3) fL Immature Gran % (Auto) (0.0-0.4) % Neut % (Auto) (45-73) % Lymph % (Auto) (20-40) % [place] % (Auto) (2-11) % Eos % (Auto) (0-4) % Baso % (Auto) (0-2) % Lymph # (Auto) (1.2-4.9) X10*3/uL [place] # (Auto) (0.1-1.2) X10*3/uL Eos # (Auto) (0.0-0.4) X10*3/uL Baso # (Auto) (0.0-0.2) X10*3/uL Abs Immat Gran (auto) (0.00-0.03) X10*3/uL Absolute Neuts (auto) (2.0-8.3) x10*3/uL Absolute Nucleated RBC (0.0-0.012) X10*3/uL Nucleated RBC % (auto) (0.0-0.2) /100WBC Sodium (135-145) mmol/L Potassium (3.3-5.1) mmol/L Chloride (96-108) mmol/L Carbon Dioxide (22-29) mmol/L Anion Gap (12-20) BUN (9-16) mg/dL Creatinine (0.5-1.4) mg/dL Estim Creat Clear Calc Estimated GFR Random Glucose (60-115) mg/dL Lactic Acid (0.5-2.0) mmol/L Calcium (8.4-10.2) mg/dL Total Bilirubin (0.0-1.0) mg/dL Direct Bilirubin (0.0-0.5) mg/dL AST (5-31) U/L ALT (0-31) U/L Alkaline Phosphatase (39-117) U/L B-Natriuretic Peptide 94 (<100) pg/mL Total Protein (6.5-8.0) g/dL Albumin (3.5-5.0) g/dL Lipase (8-78) U/L Urine Color Urine Appearance Urine pH (5.0-9.0) Ur Specific [place] (1.005-1.025) Urine Protein (Neg-Trace) mg/dL Urine Glucose (UA) (Negative) mg/dL Urine Ketones (Negative) mg/dL Urine Blood (Negative) Urine Nitrite (Negative) Ur Leukocyte Esterase (Negative) Urine RBC (0-2) /HPF Urine WBC (0-5) /HPF Ur Squamous Epith Cells (0-2) /HPF Urine Bacteria (None Seen) Hyaline Casts (0-2) /LPF COVID-19 (ELO) Negative (Negative) COVID-19 Clin Com See Note Influenza Type A (JANET) Negative (Negative) Influenza Type B (JANET) Negative (Negative) Influenza A & B Note See Note 06/13/22 Range/Units 18:16 WBC (4.8-10.8) X10*3/uL RBC (4.20-5.50) X10*6/uL Hgb (12.0-16.0) g/dl Hct (37.0-47.0) % MCV (80.0-98.0) fL MCH (27.0-33.0) pg MCHC (31.0-35.0) g/dl RDW (11.0-16.0) % Plt Count (160-400) X10*3/uL MPV (9.4-12.3) fL Immature Gran % (Auto) (0.0-0.4) % Neut % (Auto) (45-73) % Lymph % (Auto) (20-40) % [place] % (Auto) (2-11) % Eos % (Auto) (0-4) % Baso % (Auto) (0-2) % Lymph # (Auto) (1.2-4.9) X10*3/uL [place] # (Auto) (0.1-1.2) X10*3/uL Eos # (Auto) (0.0-0.4) X10*3/uL Baso # (Auto) (0.0-0.2) X10*3/uL Abs Immat Gran (auto) (0.00-0.03) X10*3/uL Absolute Neuts (auto) (2.0-8.3) x10*3/uL Absolute Nucleated RBC (0.0-0.012) X10*3/uL Nucleated RBC % (auto) (0.0-0.2) /100WBC Sodium (135-145) mmol/L Potassium (3.3-5.1) mmol/L Chloride (96-108) mmol/L Carbon Dioxide (22-29) mmol/L Anion Gap (12-20) BUN (9-16) mg/dL Creatinine (0.5-1.4) mg/dL Estim Creat Clear Calc Estimated GFR Random Glucose (60-115) mg/dL Lactic Acid (0.5-2.0) mmol/L Calcium (8.4-10.2) mg/dL Total Bilirubin (0.0-1.0) mg/dL Direct Bilirubin (0.0-0.5) mg/dL AST (5-31) U/L ALT (0-31) U/L Alkaline Phosphatase (39-117) U/L B-Natriuretic Peptide (<100) pg/mL Total Protein (6.5-8.0) g/dL Albumin (3.5-5.0) g/dL Lipase (8-78) U/L Urine Color Yellow Urine Appearance Clear Urine pH 6.5 (5.0-9.0) Ur Specific [place] >= 1.030 H (1.005-1.025) Urine Protein 30 (1+) H (Neg-Trace) mg/dL Urine Glucose (UA) Negative (Negative) mg/dL Urine Ketones Negative (Negative) mg/dL Urine Blood Negative (Negative) Urine Nitrite Negative (Negative) Ur Leukocyte Esterase Negative (Negative) Urine RBC 0-2 (0-2) /HPF Urine WBC 0-5 (0-5) /HPF Ur Squamous Epith Cells 0-2 (0-2) /HPF Urine Bacteria None Seen (None Seen) Hyaline Casts 0-2 (0-2) /LPF COVID-19 (ELO) (Negative) COVID-19 Clin Com Influenza Type A (JANET) (Negative) Influenza Type B (JANET) (Negative) Influenza A & B Note Discharge Plan Discharge Clinical Impression: Pneumonia, Atrial fibrillation, Leukocytopenia, Dyspnea, Diarrhea Patient Disposition: Admitted As Inpatient
--- NOTE | 2022-06-14 08:22 | MHC.CM.ED ---
Received notification patient will be admitted to the hospital. Continue to monitor for d/c needs.
--- NOTE | 2022-06-14 08:55 | PM.IMHP ---
History of Present Illness Date of Service: 06/14/22 Chief Complaint: Breath, diarrhea. 71 year old femal with history of F (atrial fibrillation) Chronic anticoagulation, Chronic kidney disease, AAA followed at [facility], GERD (gastroesophageal reflux disease), History of uterine cancer , HLD (hyperlipidemia), HTN (hypertension), COPD not on home O2, chronic indwelling abdi cath due to neurogenic bladder. She presented with sob, diarrhea, and abdominal pain. Her shortness of breath has been an ongoing thing due to diarrhea, she has been having wet cough, no fever or chills. Additionally she has been having profuse diarrhea with no blood and that has been on going for weeks, in fact review of records from [facility] inidates that she may have been having this as far back as november 2021 and associated with some abdominal discomfort. Her apetite has been poor with some weight loss. She also has some associated nausea and vomitting. Diarrhea is so bad that a rectal tube is inserted with dark green liquid stook. Work up WBC 14, C dif , stool panel pending. Review of Systems Review of Systems: Gen: no fever Resp: + sob, no cough CV: no chest, no MOTT, no leg edema GI: No n/v, no abd pain, +diarrhea Neuro: No confusion Yes all other systems are reviewed and are negative [facility] Medical History Cardiac pacemaker in situ COPD (chronic obstructive pulmonary disease) Dyspnea on exertion Exercise hypoxemia GERD (gastroesophageal reflux disease) HTN (hypertension) Hypertension Legally blind On beta mayra at home Persistent atrial fibrillation Pneumonia Retention, urine Sick sinus syndrome Family History Father CHF (congestive heart failure) Cancer Pacemaker Mother Emphysema lung Surgical History History of cardioversion History of endoscopy History of esophagogastroduodenoscopy (EGD) History of radiofrequency ablation (RFA) for complex left atrial arrhythmia Hx of cardiac pacemaker Hx of colonoscopy Hx of hysterectomy Social History Alcohol intake: never Patient Tobacco Use Status: Former Tobacco user Quit Date: 30 years ago Smoked in Last 30 Days: No Use of substances other than those prescribed or required for medical reasons: No Advance Directives: Yes Advance Directives on File: Yes Advance Directives Date on File: 06/13/22 Meds Allergies Allergy/AdvReac Type Severity Reaction Status Date / Time No Known Allergies Allergy Verified 06/13/22 11:35 [No Known Allergies*] Active Medications: Current Medications Hydrocodone Bitart/Acetaminophen (Hydrocodone Bit/Acetam 7.5/325 Tablet) 1 tab PO Q6H PRN PRN Reason: severe pain Albuterol Sulfate (Albuterol Sulfate 90 Mcg 8 Gm Inhaler) 2 puff INHALE RQ6H PRN PRN Reason: wheezing Albuterol/Ipratropium (Albuterol/Iprat 2.5/0.5mg 3 Ml Ampul.Neb) 3 ml INHALE RQ4H PRN PRN Reason: wheezing Ascorbic Acid (Ascorbic Acid 500 Mg Tablet) 500 mg PO DAILY [facility] Atorvastatin Calcium (Atorvastatin Calcium 20 Mg Tablet) 20 mg PO BEDTIME [facility] Calcium Carbonate (Calcium Carbonate 500 Mg Tablet) 250 mg PO TID PRN PRN Reason: Heartburn Dicyclomine HCl (Dicyclomine Hcl 10 Mg Capsule) 10 mg PO BID [facility] Digoxin (Digoxin 0.25 Mg Tablet) 0.25 mg PO DAILY [facility] Ferrous Sulfate (Ferrous Sulfate 324 Mg Tablet.) 324 mg PO BID [facility] Folic Acid (Folic Acid 1 Mg Tablet) 1 mg PO DAILY [facility] Metoprolol Succinate (Metoprolol Succinate Er 25 Mg Tab.Er.24h) 25 mg PO BID [facility]; Protocol Omeprazole (Omeprazole 20 Mg Capsule.) 20 mg PO DAILY [facility] Ondansetron HCl (Ondansetron Odt 4 Mg Tab.Rapdis) 4 mg TRANSLINGU Q6H PRN PRN Reason: nausea/vomiting Pharmacy Consult (Consult Rx Perform Med Rec) 1 each MISCELLANE ONCE PRN PRN Reason: Consult order Prochlorperazine Maleate (Prochlorperazine Maleate 5 Mg Tablet) 5 mg PO BID PRN PRN Reason: for nausea/vomiting Rivaroxaban (Rivaroxaban 20 Mg Tablet) 20 mg PO DAILY@1700 [facility] Home Medications Medication Instructions Recorded Confirmed Last Taken Type ferrous sulfate 325 mg (65 mg 325 mg PO BID 04/07/20 06/13/22 06/13/22 History iron) tablet folic acid 1 mg tablet 1 mg PO DAILY 04/07/20 06/13/22 06/13/22 History calcium carbonate 200 mg calcium 200 mg PO TID PRN Heartburn 02/10/21 06/13/22 Unknown History (500 mg) chewable tablet (Tums) simvastatin 40 mg tablet 40 mg PO BEDTIME 02/10/21 06/13/22 Unknown History ascorbic acid (vitamin C) 500 mg 500 mg PO DAILY 03/31/21 06/13/22 06/13/22 History tablet metoprolol succinate 25 mg 25 mg PO BID 12/24/21 06/13/22 06/13/22 History tablet,extended release 24 hr albuterol sulfate 90 mcg/actuation 2 puff inhalation Q6H PRN wheezing 05/12/22 06/13/22 Unknown History aerosol inhaler hydrocodone 7.5 mg-acetaminophen 1 tab PO Q6H PRN severe pain 05/12/22 06/13/22 05/17/22 History 325 mg tablet ipratropium 0.5 mg-albuterol 3 mg 3 ml inhalation Q4-6H PRN wheezing 05/12/22 06/13/22 Unknown History (2.5 mg base)/3 mL nebulization soln ondansetron HCl 4 mg tablet 4 mg PO Q6H PRN nausea/vomiting 06/13/22 06/13/22 Unknown History rivaroxaban 20 mg tablet (Xarelto) 20 mg PO DAILY@1700 06/13/22 06/13/22 Unknown History Physical Exam Vital Signs and Narrative: Vital Signs: Last Vital Signs Temp 98.7 F 06/14/22 07:39 Pulse 65 06/14/22 07:56 Resp 16 06/14/22 05:41 BP 136/69 06/14/22 07:39 Pulse Ox 93 06/14/22 07:56 O2 Del Method Room Air 06/14/22 07:39 O2 Flow Rate 95 06/14/22 05:08 BMI result Body Mass Index 20.4 Constitutional: Alert, in no distress, Mental Status: Oriented to person, place and time. Eyes: Pupils are equal, round and reactive to light. Ear, Nose and Throat: Oropharynx clear, mucous membranes moist. Ears and nose without eformities. Trachea midline. Respiratory: Clear to auscultation. No wheezing, rales or rhonchi. Cardiovascular: S1 S2 regular. No murmurs, rubs or gallops. Gastrointestinal: Abdomen soft, non-tender, non-distended. Normal bowel sounds., there is a rectal tube in place--green dark stool Neurologic: Cranial nerves II-XII grossly intact. No focal neurological deficits. Moves all extremities spontaneously.? Skin: No rashes or lesions.? Musculoskeletal: No cyanosis or clubbing. Psychiatric: Normal mood and affect? Results Labs 06/13/22 11:54 06/13/22 11:54 Labs: Laboratory Results - last 24 hr 06/13/22 06/13/22 06/13/22 11:54 11:54 14:04 MCV 88.4 MCH 29.3 MCHC 33.2 RDW 16.3 H Plt Count 309 MPV 9.5 Immature Gran % (Auto) 0.6 H Neut % (Auto) 83.2 H Lymph % (Auto) 6.1 L [place] % (Auto) 9.6 Eos % (Auto) 0.1 Baso % (Auto) 0.4 Lymph # (Auto) 0.9 L [place] # (Auto) 1.4 H Eos # (Auto) 0.0 Baso # (Auto) 0.1 Abs Immat Gran (auto) 0.09 H Absolute Neuts (auto) 11.6 H Absolute Nucleated RBC 0.000 Nucleated RBC % (auto) 0.0 Anion Gap 16 Estim Creat Clear Calc 39.7 Estimated GFR 49 Random Glucose 169 H Lactic Acid 1.3 Calcium 9.1 Total Bilirubin 0.5 Direct Bilirubin 0.2 AST 56 H ALT 27 Alkaline Phosphatase 133 H B-Natriuretic Peptide Total Protein 6.2 L Albumin 3.1 L Lipase 29 Urine Color Urine Appearance Urine pH Ur Specific [place] Urine Protein Urine Glucose (UA) Urine Ketones Urine Blood Urine Nitrite Ur Leukocyte Esterase Urine RBC Urine WBC Ur Squamous Epith Cells Urine Bacteria Hyaline Casts COVID-19 (ELO) COVID-19 Clin Com Influenza Type A (JANET) Influenza Type B (JANET) Influenza A & B Note 06/13/22 06/13/22 06/13/22 14:04 14:04 14:04 MCV MCH MCHC RDW Plt Count MPV Immature Gran % (Auto) Neut % (Auto) Lymph % (Auto) [place] % (Auto) Eos % (Auto) Baso % (Auto) Lymph # (Auto) [place] # (Auto) Eos # (Auto) Baso # (Auto) Abs Immat Gran (auto) Absolute Neuts (auto) Absolute Nucleated RBC Nucleated RBC % (auto) Anion Gap Estim Creat Clear Calc Estimated GFR Random Glucose Lactic Acid Calcium Total Bilirubin Direct Bilirubin AST ALT Alkaline Phosphatase B-Natriuretic Peptide 94 Total Protein Albumin Lipase Urine Color Urine Appearance Urine pH Ur Specific [place] Urine Protein Urine Glucose (UA) Urine Ketones Urine Blood Urine Nitrite Ur Leukocyte Esterase Urine RBC Urine WBC Ur Squamous Epith Cells Urine Bacteria Hyaline Casts COVID-19 (ELO) Negative COVID-19 Clin Com See Note Influenza Type A (JANET) Negative Influenza Type B (JANET) Negative Influenza A & B Note See Note 06/13/22 18:16 MCV MCH MCHC RDW Plt Count MPV Immature Gran % (Auto) Neut % (Auto) Lymph % (Auto) [place] % (Auto) Eos % (Auto) Baso % (Auto) Lymph # (Auto) [place] # (Auto) Eos # (Auto) Baso # (Auto) Abs Immat Gran (auto) Absolute Neuts (auto) Absolute Nucleated RBC Nucleated RBC % (auto) Anion Gap Estim Creat Clear Calc Estimated GFR Random Glucose Lactic Acid Calcium Total Bilirubin Direct Bilirubin AST ALT Alkaline Phosphatase B-Natriuretic Peptide Total Protein Albumin Lipase Urine Color Yellow Urine Appearance Clear Urine pH 6.5 Ur Specific [place] >= 1.030 H Urine Protein 30 (1+) H Urine Glucose (UA) Negative Urine Ketones Negative Urine Blood Negative Urine Nitrite Negative Ur Leukocyte Esterase Negative Urine RBC 0-2 Urine WBC 0-5 Ur Squamous Epith Cells 0-2 Urine Bacteria None Seen Hyaline Casts 0-2 COVID-19 (ELO) COVID-19 Clin Com Influenza Type A (JANET) Influenza Type B (JANET) Influenza A & B Note Imaging Radiologist's Impressions: Impressions Chest X-Ray 06/13/22 13:50 IMPRESSION: Airspace disease in the left upper lobe probably representing pneumonia. Abdomen/Pelvis CT 06/13/22 14:10 IMPRESSION: New small bowel dilatation with air-fluid levels of the low abdomen and pelvis. Findings may be related to an ileus versus partial or early small bowel obstruction. Postoperative changes. Infrarenal abdominal aortic aneurysm at 4.5 cm AP, slightly increased since previous evaluation. Follow-up every 6 months and vascular consultation recommended. Bladder catheterized. New patchy infiltrates and tree-in-bud opacities of the left lower lobe. Other incidental findings as described. Assessment and Plan (1) Atrial fibrillation: Status: Acute Plan 71 year old femal with history of F (atrial fibrillation) Chronic anticoagulation, Chronic kidney disease, AAA followed at [facility], GERD (gastroesophageal reflux disease), History of uterine cancer , HLD (hyperlipidemia), HTN (hypertension), COPD not on home O2, chronic indwelling abdi cath due to neurogenic bladder here with sob, abd pain, n/v, diarrhea. 1/SOB, likely related to COPD and possible pneumonia, appear better right, treat with inhalers, cough meds PRN 2/Pneumonia as seen on xray with elevated WBC--Add Ceftriaxone. 3/ Diarrhea, this appear chronic, has rectal tube. C dif +, start dificid 4/ ? Ileus on CT, exam pretty bening, doubt obstruction with current clinical presentation 5/ Permanent AFIB--rate controlled on metoprolol and digoxine, and Xarelto for stroke prevention 6/ GERD PPI 7/ HLD--simvastatin 8/DVT prophy : Xarelto regular diet Admit for at least 2 midnight for profuse diarrehea that need work up and fluid replacement, PNA needing IV Abx Time Spent With Patient Time: Total time managing care of this patient today ____ minutes. Quality Stroke Does the patient have a stroke diagnosis?: No VTE Prior VTE?: No VTE Risk Level:: Medical - moderate - high VTE Device Contraindication: Treatment Not Tolerated VTE Drug Contraindication: N/A - Med Ordered
[2022-06-14 09:58] LABS: CDIFF Internal ctrl Dots and bkg OK (V); CDiff Toxin Negative (Negative)
[2022-06-14] MEDS: Dextrose 5 % and 0.45 % NaCl 1,000 ML 100 ML IVCONT ×2 (09:58→19:18)
[2022-06-14] MEDS: Ferrous Sulfate 324 MG TABLET.DR PO ×2 (10:00→19:18)
[2022-06-14] MEDS: Ascorbic Acid 500 MG TABLET PO (10:01)
[2022-06-14] MEDS: Metoprolol Succinate ER 25 MG TAB.ER.24H PO ×2 (10:01→19:18)
[2022-06-14] MEDS: Omeprazole 20 MG CAPSULE.DR PO (10:01)
[2022-06-14] MEDS: Digoxin 0.25 MG TABLET PO (10:08)
[2022-06-14] MEDS: Folic Acid 1 MG TABLET PO (10:08)
[2022-06-14 10:10] LABS: CDiff Gene PCR POSITIVE (Negative)
[2022-06-14 10:13] LABS: Campylobacter Not Detected (Not Detect.); Plesiomonas shigelloides Not Detected (Not Detect.); Salmonella Not Detected (Not Detect.); Vibrio Not Detected (Not Detect.); Vibrio Cholerae Not Detected (Not Detect.)
[2022-06-14 10:14] LABS: Adenovirus F 40/41 Not Detected (Not Detect.); Astrovirus Not Detected (Not Detect.); Cryptosporidium Not Detected (Not Detect.); Cyclospora cayetanensis Not Detected (Not Detect.); E. coli EAEC Not Detected (Not Detect.); E. coli EPEC Not Detected (Not Detect.); E. coli ETEC Not Detected (Not Detect.); E. coli STEC Not Detected (Not Detect.); Entamoeba histolytica Not Detected (Not Detect.); Giardia lamblia Not Detected (Not Detect.); Norovirus GI/GII Not Detected (Not Detect.); Rotavirus A Not Detected (Not Detect.); Sapovirus Not Detected (Not Detect.); Shigella sp./EIEC Not Detected (Not Detect.); Yersinia enterocolitica Not Detected (Not Detect.)
[2022-06-14] MEDS: Dicyclomine HCl 10 MG CAPSULE PO ×2 (10:43→19:18)
[2022-06-14] MEDS: Fidaxomicin 200 MG TABLET PO (11:42)
--- NOTE | 2022-06-14 13:14 | PC.NURSE ---
pt ate breakfast, has rectal tube in place w dark watery stool in bag, sent for testing and c diff + w pcr but - for toxin, precautions in place, medicated as ordered, ate lunch, denies pain, dtr came to visit and visited for approx 1 hour, moved from room 2 to 4 (private room), has bed upstairs and waiting to give report, pt ate lunch, daughter states that pt is a little more confused than usual and has made a few odd statements about playing cards with people that are not here and there being presents in another room,
[2022-06-14] MEDS: HYDROcodone Bit/Acetam 7.5/325 TABLET 1 TAB PO (16:40)
[2022-06-14] MEDS: 0.9 % Sodium Chloride Flush 3 ML SYRINGE IVFLUSH (16:41)
[2022-06-14] MEDS: ondansetron HCL 4 MG/2 ML VIAL IVPUSH (16:41)
[2022-06-14] MEDS: Atorvastatin Calcium 20 MG TABLET PO (19:18)
[2022-06-15] MEDS: Fidaxomicin 200 MG TABLET PO ×3 (00:22→21:13)
[2022-06-15] MEDS: ondansetron HCL 4 MG/2 ML VIAL IVPUSH ×2 (00:27→13:19)
[2022-06-15 04:00] VITALS: BP 168/68; PULSE 88; RESP 16; TEMP 36.6; O2SAT 96
[2022-06-15] MEDS: Dextrose 5 % and 0.45 % NaCl 1,000 ML 100 ML IVCONT ×2 (05:25→18:21)
[2022-06-15] MEDS: Prochlorperazine Maleate 5 MG TABLET PO (05:25)
[2022-06-15 06:13] LABS: Anion Gap 17 (12-20); Blood Urea Nitrogen 11 mg/dL (9-16); Calcium 7.9 mg/dL (8.4-10.2); Carbon Dioxide 11 mmol/L (22-29); Chloride 108 mmol/L (96-108); Creatinine Clr Calc Pharmacy 57.7; Estimated Glomerular Filt Rate > 60; Glucose Random 183 mg/dL (60-115); Potassium 4.1 mmol/L (3.3-5.1); Sodium 132 mmol/L (135-145)
[2022-06-15 06:59] VITALS: BP 160/90; PULSE 100; RESP 18; TEMP 36.6; O2SAT 96
[2022-06-15] MEDS: Dicyclomine HCl 10 MG CAPSULE PO ×2 (08:34→21:13)
[2022-06-15] MEDS: Digoxin 0.25 MG TABLET PO (08:34)
[2022-06-15] MEDS: Ascorbic Acid 500 MG TABLET PO (08:35)
[2022-06-15] MEDS: Ferrous Sulfate 324 MG TABLET.DR PO ×2 (08:35→21:13)
[2022-06-15] MEDS: Metoprolol Succinate ER 25 MG TAB.ER.24H PO ×2 (08:35→21:13)
[2022-06-15] MEDS: Folic Acid 1 MG TABLET PO (08:35)
[2022-06-15] MEDS: Omeprazole 20 MG CAPSULE.DR PO (08:35)
--- NOTE | 2022-06-15 09:04 | P.PNIM_ITS ---
Subjective Subjective Date of Service: 06/15/22 Interval History: f/u on cdif diarrhea, chronic copd interval history: weak, less diarrha, rectal tube out, no sob Physical Exam Vital Signs: Vital Signs: Last Vital Signs Temp 98 F 06/15/22 06:59 Pulse 100 06/15/22 06:59 Resp 18 06/15/22 06:59 BP 160/90 H 06/15/22 06:59 Pulse Ox 96 06/15/22 06:59 O2 Del Method Room Air 06/15/22 06:59 O2 Flow Rate 95 06/14/22 05:08 BMI result Body Mass Index 23.7 Const: Other: General: AO X 3, no acute distress Resp: CTA bilateral CVS: S1,S2,RRR GI: +BS, NT, no distention Skin: No rash Neuro: motor grossly intact Psych: appropriate affect Objective Data Active Medications Acetaminophen (Acetaminophen Supp 650 Mg Supp.Rect) 650 mg ME Q6H PRN PRN Reason: Pain, Mild (Pain Scale 1-3) Hydrocodone Bitart/Acetaminophen (Hydrocodone Bit/Acetam 7.5/325 Tablet) 1 tab PO Q6H PRN PRN Reason: severe pain Last Admin: 06/14/22 16:40 Dose: 1 tab Documented By: RAZA Albuterol Sulfate (Albuterol Sulfate 90 Mcg 8 Gm Inhaler) 2 puff INHALE RQ6H PRN PRN Reason: wheezing Albuterol/Ipratropium (Albuterol/Iprat 2.5/0.5mg 3 Ml Ampul.Neb) 3 ml INHALE RQ4H PRN PRN Reason: wheezing Ascorbic Acid (Ascorbic Acid 500 Mg Tablet) 500 mg PO DAILY [facility] Last Admin: 06/15/22 08:35 Dose: 500 mg Documented By: RAZA Atorvastatin Calcium (Atorvastatin Calcium 20 Mg Tablet) 20 mg PO BEDTIME [facility] Last Admin: 06/14/22 19:18 Dose: 20 mg Documented By: LANNY Calcium Carbonate (Calcium Carbonate 500 Mg Tablet) 250 mg PO TID PRN PRN Reason: Heartburn Last Admin: 06/14/22 19:26 Dose: 250 mg Documented By: LANNY Dicyclomine HCl (Dicyclomine Hcl 10 Mg Capsule) 10 mg PO BID [facility] Last Admin: 06/15/22 08:34 Dose: 10 mg Documented By: RAZA Digoxin (Digoxin 0.25 Mg Tablet) 0.25 mg PO DAILY [facility] Last Admin: 06/15/22 08:34 Dose: 0.25 mg Documented By: RAZA Ferrous Sulfate (Ferrous Sulfate 324 Mg Tablet.) 324 mg PO BID [facility] Last Admin: 06/15/22 08:35 Dose: 324 mg Documented By: RAZA Fidaxomicin (Fidaxomicin 200 Mg Tablet) 200 mg PO Q12H [facility] Last Admin: 06/15/22 00:22 Dose: 200 mg Documented By: LANNY Folic Acid (Folic Acid 1 Mg Tablet) 1 mg PO DAILY [facility] Last Admin: 06/15/22 08:35 Dose: 1 mg Documented By: RAZA Dextrose/Sodium Chloride (D51/2ns) 1,000 mls @ 100 mls/hr IVCONT .Q10H [facility] Last Admin: 06/15/22 05:25 Dose: 100 mls/hr Documented By: LANNY Melatonin (Melatonin 3 Mg Tablet) 3 mg PO BEDTIME PRN PRN Reason: Insomnia Metoprolol Succinate (Metoprolol Succinate Er 25 Mg Tab.Er.24h) 25 mg PO BID [facility]; Protocol Last Admin: 06/15/22 08:35 Dose: 25 mg Documented By: RAZA Omeprazole (Omeprazole 20 Mg Capsule.) 20 mg PO DAILY [facility] Last Admin: 06/15/22 08:35 Dose: 20 mg Documented By: RAZA Ondansetron HCl (Ondansetron Odt 4 Mg Tab.Rapdis) 4 mg TRANSLINGU Q6H PRN PRN Reason: nausea/vomiting Ondansetron HCl (Ondansetron Hcl 4 Mg/2 Ml Vial) 4 mg IVPUSH Q8H PRN PRN Reason: Nausea and Vomiting Last Admin: 06/15/22 00:27 Dose: 4 mg Documented By: LANNY Pharmacy Consult (Consult Rx Perform Med Rec) 1 each MISCELLANE ONCE PRN PRN Reason: Consult order Prochlorperazine Maleate (Prochlorperazine Maleate 5 Mg Tablet) 5 mg PO BID PRN PRN Reason: for nausea/vomiting Last Admin: 06/15/22 05:25 Dose: 5 mg Documented By: LANNY Rivaroxaban (Rivaroxaban 20 Mg Tablet) 20 mg PO DAILY@1700 [facility] Last Admin: 06/14/22 16:53 Dose: Not Given Documented By: RAZA Non-Admin Reason: Patient Refused Sodium Chloride (0.9 % Sodium Chloride Flush 3 Ml Syringe) 3 ml IVFLUSH QSHIFT [facility] Last Admin: 06/15/22 08:35 Dose: Not Given Documented By: RAZA Non-Admin Reason: IV Running Labs 06/13/22 11:54 06/15/22 05:23 Labs: Laboratory Results - last 24 hr 06/13/22 06/14/22 06/14/22 23:15 07:36 07:36 Anion Gap Estim Creat Clear Calc Estimated GFR Random Glucose Calcium Stl C. cayetanensis PCR Cancelled Not Detected Stool Rotavirus A PCR Cancelled Not Detected Stl Adenov F / PCR Cancelled Not Detected Stool Astrovirus (PCR) Cancelled Not Detected Stool Campylobacter PCR Cancelled Not Detected Stool Cryptosporidium PCR Cancelled Not Detected Stl Sh Tox Pr E STEC PCR Cancelled Not Detected Stool E coli O157 PCR Cancelled Not applicable Stl Enterotoxigenic E PCR Cancelled Not Detected Stool EPEC (PCR) Cancelled Not Detected Stool EAEC (PCR) Cancelled Not Detected Stl E. histolytica PCR Cancelled Not Detected Stool Giardia Lamblia PCR Cancelled Not Detected Stl P. shigelloides PCR Cancelled Not Detected Stool Salmonella PCR Cancelled Not Detected Stool Sapovirus (PCR) Cancelled Not Detected Stl Shigella/EIEC PCR Cancelled Not Detected St Y.enterocolitica PCR Cancelled Not Detected Stool Vibrio (PCR) Cancelled Not Detected Stl Vibrio cholerae PCR Cancelled Not Detected Stl Norovirus GI/GII PCR Cancelled Not Detected C. difficile Tox B Gene POSITIVE A* C. difficile Toxin A&B Negative C. difficile Interpret SEE NOTE 06/15/22 05:23 Anion Gap 17 Estim Creat Clear Calc 57.7 Estimated GFR > 60 Random Glucose 183 H Calcium 7.9 L D Stl C. cayetanensis PCR Stool Rotavirus A PCR Stl Adenov F 40/ PCR Stool Astrovirus (PCR) Stool Campylobacter PCR Stool Cryptosporidium PCR Stl Sh Tox Pr E STEC PCR Stool E coli O157 PCR Stl Enterotoxigenic E PCR Stool EPEC (PCR) Stool EAEC (PCR) Stl E. histolytica PCR Stool Giardia Lamblia PCR Stl P. shigelloides PCR Stool Salmonella PCR Stool Sapovirus (PCR) Stl Shigella/EIEC PCR St Y.enterocolitica PCR Stool Vibrio (PCR) Stl Vibrio cholerae PCR Stl Norovirus GI/GII PCR C. difficile Tox B Gene C. difficile Toxin A&B C. difficile Interpret Microbiology Microbiology Results: Microbiology 06/13/22 15:40 Blood Culture - Preliminary Blood - Venous No growth after 24 hours. 06/13/22 15:40 Blood Culture - Preliminary Blood - Venous Assessment and Plan (1) C. difficile diarrhea: Status: Acute Plan 71 year old femal with history of?F (atrial fibrillation) Chronic anticoagulation, Chronic kidney disease, AAA followed at [facility], GERD (gastroesophageal reflux disease), ? History of uterine cancer , HLD (hyperlipidemia), HTN (hypertension), COPD not on home O2, chronic indwelling abdi cath due to neurogenic bladder here with sob, abd pain, n/v, diarrhea. 1/SOB, likely related? to COPD, presently no sob, normal O2 sat, 2/Pneumonia as seen on xray with elevated WBC--Add Ceftriaxone if repeat CXR with 2V consistent with PNA, has no fever 3/ Diarrhea, has rectal tube.? C dif +, start dificid 06/13/22 4/ ? Ileus on CT, exam pretty bening, doubt? obstruction with current clinical presentation, abdominal exam is very bening 5/ Permanent AFIB--rate controlled on metoprolol? and digoxin, and Xarelto for stroke prevention 6/ GERD PPI 7/ HLD--simvastatin 8/DVT prophy : Xarelto regular diet Need for inpatient: C dif with profuse diarrhea, need iV fluid to maintain hydration Time Spent With Patient Time: Total time managing care of this patient today ____ minutes. Quality Stroke Does the patient have a stroke diagnosis?: No VTE Prior VTE?: No VTE Risk Level:: Medical - moderate - high VTE Device Contraindication: Treatment Not Tolerated VTE Drug Contraindication: N/A - Med Ordered
--- NOTE | 2022-06-15 11:21 | PC.NURSE ---
Addendum entered by Tommy Lao RN 06/15/22 19:03: pt. meds sent to pharmacy, 2 pills Original Note: Pt. was given medications by this Nurse this AM, she took them while this Nurse was still in the room. Sasha puente stated she found 2 pills on the patient's bed in a clear Ziploc bag and also found some pills on a throw up bag. This Nurse not sure if the patient spit the pills or throw them up, also not sure which pills she swallowed, Dr. Correia aware. Also the HCP Franny visited the patient yesterday, and brought 3 pills in a clear Ziploc bag and stated that patient uses them for hot flushes, this Nurse told for us to use them they have to be in original container, so we know what we are actually giving, family stated that they were going to take them home after being educated, aware
[2022-06-15] MEDS: HYDROcodone Bit/Acetam 7.5/325 TABLET 1 TAB PO (13:18)
[2022-06-15] MEDS: Albuterol/Iprat 2.5/0.5MG 3 ML AMPUL.NEB INHALE (13:32)
[2022-06-15 13:37] VITALS: PULSE 75; RESP 22; O2SAT 96
--- NOTE | 2022-06-15 13:51 | MHC.CM.PN ---
pt on precautions called and spoke w/pts thania torres who explains that pt lives with her has biswas vna for once a month cather change she is covid vax x [address] home
--- NOTE | 2022-06-15 13:59 | PM.GICN ---
History of Present Illness Data of Consult Service Date: 06/15/22 Requesting physician: Gee Correia Primary Care Provider: Elena Jacobo NP HPI Reason for consult: diarrhea 71 year old female with history of?atrial fibrillation, CKD, AAA, GERD (gastroesophageal reflux disease), uterine cancer , HLD (hyperlipidemia), HTN (hypertension), COPD not on home O2, chronic indwelling abdi cath due to neurogenic bladder being seen for diarrhea. She presented with sob, diarrhea, and diffuse abdominal pain worse with food and 10/10 in severity. she denes fever and no blood in stools. her appetite is poor and she has noted weight loss. She does have nausea but no vomiting. Stool testing was pos for c diff and she has been commenced on dificid. additionally she had imaging suggestive of pneumonia colonoscopy done 05/2022 with multiple adenomaotus polyps removed, random bx neg for microscopic colitis--has been referred for genetic testing for polyposis syndrome eval Review of Systems Review of Systems: Constitutional : + Weight loss, No Fever, No Chills ENT/Mouth : No sore throat, No Rhinorrhea Eyes: No Swelling, No Redness Cardiovascular : No Chest Pain, + SOB, No Edema Respiratory : + Cough, No Sputum, No Wheezing Gastrointestinal : see HPI Genitourinary : NO Dysuria, No Urinary Frequency, No Hematuria, No Urgency Musculoskeletal : No joint pain, No Myalgias, No Joint Swelling Skin : No Skin Lesions, No rash Neuro : No Weakness, No Numbness, No Dizziness, No Headache Psych : No Anxiety/Panic, No Depression Heme/Lymph: No Bruising, No Lymphadenopathy Endocrine : No Polyuria, No Polydipsia All other systems reviewed and are negative. [facility] Past Medical History Medical History Cardiac pacemaker in situ COPD (chronic obstructive pulmonary disease) Dyspnea on exertion Exercise hypoxemia GERD (gastroesophageal reflux disease) HTN (hypertension) Hypertension Legally blind On beta mayra at home Persistent atrial fibrillation Pneumonia Retention, urine Sick sinus syndrome Family History Family History Father CHF (congestive heart failure) Cancer Pacemaker Mother Emphysema lung Surgical History Surgical History History of cardioversion History of endoscopy History of esophagogastroduodenoscopy (EGD) History of radiofrequency ablation (RFA) for complex left atrial arrhythmia Hx of cardiac pacemaker Hx of colonoscopy Hx of hysterectomy Social History Social History Household Members: Spouse Housing: House Do you presently have visiting nurse or other home services: Yes Unable to assess alcohol history related to: Unknown Alcohol intake: never Patient Tobacco Use Status: Former Tobacco user Quit Date: 30 years ago Advance Directives Date on File: 06/13/22 service: No Meds Allergies Allergy/AdvReac Type Severity Reaction Status Date / Time No Known Allergies Allergy Verified 06/13/22 11:35 [No Known Allergies*] Active Medications: Current Medications Acetaminophen (Acetaminophen Supp 650 Mg Supp.Rect) 650 mg [place] Q6H PRN PRN Reason: Pain, Mild (Pain Scale 1-3) Hydrocodone Bitart/Acetaminophen (Hydrocodone Bit/Acetam 7.5/325 Tablet) 1 tab PO Q6H PRN PRN Reason: severe pain Last Admin: 06/15/22 13:18 Dose: 1 tab Albuterol Sulfate (Albuterol Sulfate 90 Mcg 8 Gm Inhaler) 2 puff INHALE Q2H PRN PRN Reason: wheezing Albuterol/Ipratropium (Albuterol/Iprat 2.5/0.5mg 3 Ml Ampul.Neb) 3 ml INHALE RQ4H WHILE AWAKE [facility] Ascorbic Acid (Ascorbic Acid 500 Mg Tablet) 500 mg PO DAILY [facility] Last Admin: 06/15/22 08:35 Dose: 500 mg Atorvastatin Calcium (Atorvastatin Calcium 20 Mg Tablet) 20 mg PO BEDTIME [facility] Last Admin: 06/14/22 19:18 Dose: 20 mg Calcium Carbonate (Calcium Carbonate 500 Mg Tablet) 250 mg PO TID PRN PRN Reason: Heartburn Last Admin: 06/14/22 19:26 Dose: 250 mg Dicyclomine HCl (Dicyclomine Hcl 10 Mg Capsule) 10 mg PO BID [facility] Last Admin: 06/15/22 08:34 Dose: 10 mg Digoxin (Digoxin 0.25 Mg Tablet) 0.25 mg PO DAILY [facility] Last Admin: 06/15/22 08:34 Dose: 0.25 mg Ferrous Sulfate (Ferrous Sulfate 324 Mg Tablet.) 324 mg PO BID [facility] Last Admin: 06/15/22 08:35 Dose: 324 mg Fidaxomicin (Fidaxomicin 200 Mg Tablet) 200 mg PO Q12H [facility] Last Admin: 06/15/22 12:14 Dose: 200 mg Folic Acid (Folic Acid 1 Mg Tablet) 1 mg PO DAILY [facility] Last Admin: 06/15/22 08:35 Dose: 1 mg Dextrose/Sodium Chloride (D51/2ns) 1,000 mls @ 100 mls/hr IVCONT .Q10H [facility] Last Admin: 06/15/22 05:25 Dose: 100 mls/hr Melatonin (Melatonin 3 Mg Tablet) 3 mg PO BEDTIME PRN PRN Reason: Insomnia Metoprolol Succinate (Metoprolol Succinate Er 25 Mg Tab.Er.24h) 25 mg PO BID [facility]; Protocol Last Admin: 06/15/22 08:35 Dose: 25 mg Omeprazole (Omeprazole 20 Mg Capsule.Dr) 20 mg PO DAILY [facility] Last Admin: 06/15/22 08:35 Dose: 20 mg Ondansetron HCl (Ondansetron Odt 4 Mg Tab.Rapdis) 4 mg TRANSLINGU Q6H PRN PRN Reason: nausea/vomiting Ondansetron HCl (Ondansetron Hcl 4 Mg/2 Ml Vial) 4 mg IVPUSH Q8H PRN PRN Reason: Nausea and Vomiting Last Admin: 06/15/22 13:19 Dose: 4 mg Pharmacy Consult (Consult Rx Perform Med Rec) 1 each MISCELLANE ONCE PRN PRN Reason: Consult order Prochlorperazine Maleate (Prochlorperazine Maleate 5 Mg Tablet) 5 mg PO BID PRN PRN Reason: for nausea/vomiting Last Admin: 06/15/22 05:25 Dose: 5 mg Rivaroxaban (Rivaroxaban 20 Mg Tablet) 20 mg PO DAILY@1700 [facility] Last Admin: 06/14/22 16:53 Dose: Not Given Sodium Chloride (0.9 % Sodium Chloride Flush 3 Ml Syringe) 3 ml IVFLUSH QSHIFT [facility] Last Admin: 06/15/22 08:35 Dose: Not Given Home Medications Medication Instructions Recorded Confirmed Last Taken Type ferrous sulfate 325 mg (65 mg 325 mg PO BID 04/07/20 06/13/22 06/13/22 History iron) tablet folic acid 1 mg tablet 1 mg PO DAILY 04/07/20 06/13/2223 History calcium carbonate 200 mg calcium 200 mg PO TID PRN Heartburn 02/10/21 06/13/22 Unknown History (500 mg) chewable tablet (Tums) simvastatin 40 mg tablet 40 mg PO BEDTIME 02/10/21 06/13/22 Unknown History ascorbic acid (vitamin C) 500 mg 500 mg PO DAILY 03/31/21 06/13/22 06/13/22 History tablet metoprolol succinate 25 mg 25 mg PO BID 12/24/21 06/13/22 06/13/22 History tablet,extended release 24 hr albuterol sulfate 90 mcg/actuation 2 puff inhalation Q6H PRN wheezing 05/12/22 06/13/22 Unknown History aerosol inhaler hydrocodone 7.5 mg-acetaminophen 1 tab PO Q6H PRN severe pain 05/12/22 06/13/22 05/17/22 History 325 mg tablet ipratropium 0.5 mg-albuterol 3 mg 3 ml inhalation Q4-6H PRN wheezing 05/12/22 06/13/22 Unknown History (2.5 mg base)/3 mL nebulization soln ondansetron HCl 4 mg tablet 4 mg PO Q6H PRN nausea/vomiting 06/13/22 06/13/22 Unknown History rivaroxaban 20 mg tablet (Xarelto) 20 mg PO DAILY@1700 06/13/22 06/13/22 Unknown History Physical Exam Vital Signs: Vital Signs: Last Vital Signs Temp 98 F 06/15/22 06:59 Pulse 75 06/15/22 13:37 Resp 22 H 06/15/22 13:37 BP 160/90 H 06/15/22 06:59 Pulse Ox 96 06/15/22 06:59 O2 Del Method Room Air 06/15/22 06:59 O2 Flow Rate 95 06/14/22 05:08 BMI result Body Mass Index 23.7 EXAM: GENERAL: The patient is frail but relaxed VITAL SIGNS:see workflow HEENT: Nonicteric sclerae, PERRLA, EOMI. Oropharynx clear. Moist mucous membranes. Conjunctivae appear well perfused. No thyroid mass. CHEST: Chest wall is nontender. HEART: Regular rate and rhythm without murmurs. LUNGS: reduced a/e both lungs ABDOMEN: Soft, positive bowel sounds, nontender, no organomegaly.no flank tenderness SKIN: No rash, no excessive bruising, petechiae, or purpura. NEUROLOGIC: Cranial nerves II-XII intact without motor/sensory deficit. psych- nml affect Results Labs 06/13/22 11:54 06/15/22 05:23 Labs: BMP 06/15/22 05:23 Sodium 132 L Potassium 4.1 Chloride 108 Carbon Dioxide 11 L BUN 11 Creatinine 0.76 Calcium 7.9 L D Microbiology Microbiology Results: Microbiology 06/13/22 15:40 Blood - Venous Blood Culture - Preliminary No growth after 24 hours. 06/13/22 15:40 Blood - Venous Blood Culture - Preliminary No growth after 24 hours. Imaging Chest x-ray: My impression: infiiltrate left lower lobe CT- air fluid levels, spinal degeneration Assessment and Plan (1) C. difficile diarrhea: Status: Acute (2) Malnutrition: Status: Acute Plan 1/ c diff related diarrheal illness , does not appear to be complicated but has features of severe infection, aquilino in view of her pre existing fraility and malnutrition. 2/ Pneumonia PLAN: 1/ treatment of pneumonia, check urine pneumoccoal -legionella 2/ check immunoglobulins for defcn 3/ conisder adding iv flagyl given concern for ileus 4/ consider repear CT if worsening clinically, with surgical consult 5/ consider short term parenteral nutrition support Time Spent With Patient Time: Total time managing care of this patient today ____ minutes. Procedures Date of Service Date of Service: 06/16/22
[2022-06-15 15:25] VITALS: BP 105/76; PULSE 86; RESP 18; TEMP 36.1; O2SAT 97
[2022-06-15 15:46] LABS: C Reactive Protein 11.55 mg/dL (< or = 0.50)
[2022-06-15] MEDS: Rivaroxaban 20 MG TABLET PO (17:46)
[2022-06-15] MEDS: 0.9 % Sodium Chloride Flush 3 ML SYRINGE IVFLUSH (18:21)
[2022-06-15 19:37] VITALS: BP 130/74; PULSE 93; RESP 18; TEMP 36.6; O2SAT 96
[2022-06-15] MEDS: Atorvastatin Calcium 20 MG TABLET PO (21:13)
[2022-06-16] VITALS (7 sets, daily range): BP systolic 100–149; BP diastolic 60–97; PULSE 58–99; RESP 16–20; TEMP 36–36.6; O2SAT 96–99
[2022-06-16] MEDS: Dextrose 5 % and 0.45 % NaCl 1,000 ML 100 ML IVCONT (02:31)
[2022-06-16 06:35] LABS: Hematocrit 41.2 % (37.0-47.0); Hemoglobin 13.9 g/dl (12.0-16.0); Mean Corpuscular HGB Conc 33.7 g/dl (31.0-35.0); Mean Corpuscular Hemoglobin 29.3 pg (27.0-33.0); Mean Corpuscular Volume 86.7 fL (80.0-98.0); Mean Platelet Volume 9.4 fL (9.4-12.3); Platelet Count 343 X10*3/uL (160-400); Red Blood Count 4.75 X10*6/uL (4.20-5.50); Red Cell Distribution Width 15.9 % (11.0-16.0)
[2022-06-16 06:36] LABS: WBC ABN SCTR FOR CBC 1
[2022-06-16 07:03] LABS: Alanine Aminotransferase 71 U/L (0-31); Albumin Level 2.7 g/dL (3.5-5.0); Alkaline Phosphatase 249 U/L (39-117); Aspartate Amino Transferase 42 U/L (5-31); Bilirubin Total 0.3 mg/dL (0.0-1.0); Blood Urea Nitrogen 13 mg/dL (9-16); Calcium 8.1 mg/dL (8.4-10.2); Creatinine Clr Calc Pharmacy 60.9; Estimated Glomerular Filt Rate > 60; Glucose Random 152 mg/dL (60-115); Total Protein 5.3 g/dL (6.5-8.0)
[2022-06-16 07:16] LABS: Atypical Lymphs Percent Manual 1 % (0-6); Band Neutrophils Percent 2 % (3-5); Lymphocytes Percent Manual 3 % (20-40); Metamyelocytes Percent 1 %; Monocytes Percent Manual 11 % (2-11); Myelocytes Percent 2 %; Neutrophils Percent Manual 79 % (45-73); Promyelocytes Percent 1 %
[2022-06-16 07:18] LABS: Burr Cells 3+ (>5) /OIF; Platelet Estimate NORMAL (NORMAL); Platelet Morphology Comment NORMAL
[2022-06-16 07:39] LABS: Atypical Lymph Absolute Manual 0.1 x10*3/uL; Lymphocytes Absolute Manual 0.4 X10*3/uL (1.2-4.9); Metamyelocytes Absolute 0.1 X10*3/uL; Monocytes Absolute Manual 1.6 X10*3/uL (0.1-1.2); Myelocytes Absolute 0.3 X10*/uL; Promyelocytes Absolute 0.1 X10*3/uL; White Blood Count 14.8 X10*3/uL (4.8-10.8)
[2022-06-16 07:44] LABS: RBC Morphology NOTED
[2022-06-16 07:45] LABS: Anion Gap 16 (12-20); Carbon Dioxide 19 mmol/L (22-29); Chloride 108 mmol/L (96-108); Potassium 2.9 mmol/L (3.3-5.1); Sodium 140 mmol/L (135-145)
--- NOTE | 2022-06-16 08:24 | HO.PM.IMPN ---
Subjective Subjective Date of Service: 06/17/22 Interval History: f/u on cdif diarrhea, chronic copd interval history: persistent diarrhea, no sob and overall seems better Review of Systems +diarrhea, no sob, +nausea Physical Exam Vital Signs: Vital Signs: Last Vital Signs Temp 97.6 F 06/16/22 07:47 Pulse 85 06/16/22 07:47 Resp 18 06/16/22 07:47 BP 105/76 06/16/22 07:47 Pulse Ox 97 06/16/22 07:47 O2 Del Method Room Air 06/16/22 07:47 O2 Flow Rate 95 06/14/22 05:08 BMI result Body Mass Index 23.7 Const: Other: General: AO X 3, no acute distress Resp: CTA bilateral CVS: S1,S2,RRR GI: +BS, NT, no distention Skin: No rash Neuro: motor grossly intact Psych: appropriate affect Objective Data Active Medications Acetaminophen (Acetaminophen Supp 650 Mg Supp.Rect) 650 mg [place] Q6H PRN PRN Reason: Pain, Mild (Pain Scale 1-3) Hydrocodone Bitart/Acetaminophen (Hydrocodone Bit/Acetam 7.5/325 Tablet) 1 tab PO Q6H PRN PRN Reason: severe pain Last Admin: 06/15/22 13:18 Dose: 1 tab Documented By: RAZA Albuterol Sulfate (Albuterol Sulfate 90 Mcg 8 Gm Inhaler) 2 puff INHALE Q2H PRN PRN Reason: wheezing Albuterol/Ipratropium (Albuterol/Iprat 2.5/0.5mg 3 Ml Ampul.Neb) 3 ml INHALE RQ4H WHILE AWAKE [facility] Last Admin: 06/15/22 20:17 Dose: Not Given Documented By: ELZBIETA Non-Admin Reason: Patient Asleep Ascorbic Acid (Ascorbic Acid 500 Mg Tablet) 500 mg PO DAILY [facility] Last Admin: 06/15/22 08:35 Dose: 500 mg Documented By: RAZA Atorvastatin Calcium (Atorvastatin Calcium 20 Mg Tablet) 20 mg PO BEDTIME [facility] Last Admin: 06/15/22 21:13 Dose: 20 mg Documented By: LANNY Calcium Carbonate (Calcium Carbonate 500 Mg Tablet) 250 mg PO TID PRN PRN Reason: Heartburn Last Admin: 06/14/22 19:26 Dose: 250 mg Documented By: LANNY Dicyclomine HCl (Dicyclomine Hcl 10 Mg Capsule) 10 mg PO BID [facility] Last Admin: 06/15/22 21:13 Dose: 10 mg Documented By: LANNY Digoxin (Digoxin 0.25 Mg Tablet) 0.25 mg PO DAILY [facility] Last Admin: 06/15/22 08:34 Dose: 0.25 mg Documented By: RAZA Ferrous Sulfate (Ferrous Sulfate 324 Mg Tablet.) 324 mg PO BID [facility] Last Admin: 06/15/22 21:13 Dose: 324 mg Documented By: LANNY Fidaxomicin (Fidaxomicin 200 Mg Tablet) 200 mg PO Q12H [facility] Last Admin: 06/15/22 21:13 Dose: 200 mg Documented By: LANNY Folic Acid (Folic Acid 1 Mg Tablet) 1 mg PO DAILY [facility] Last Admin: 06/15/22 08:35 Dose: 1 mg Documented By: RAZA Dextrose/Sodium Chloride (D51/2ns) 1,000 mls @ 100 mls/hr IVCONT .Q10H [facility] Last Admin: 06/16/22 02:31 Dose: 100 mls/hr Documented By: LANNY Melatonin (Melatonin 3 Mg Tablet) 3 mg PO BEDTIME PRN PRN Reason: Insomnia Metoprolol Succinate (Metoprolol Succinate Er 25 Mg Tab.Er.24h) 25 mg PO BID [facility]; Protocol Last Admin: 06/15/22 21:13 Dose: 25 mg Documented By: LANNY Omeprazole (Omeprazole 20 Mg Capsule.) 20 mg PO DAILY [facility] Last Admin: 06/15/22 08:35 Dose: 20 mg Documented By: RAZA Ondansetron HCl (Ondansetron Odt 4 Mg Tab.Rapdis) 4 mg TRANSLINGU Q6H PRN PRN Reason: nausea/vomiting Ondansetron HCl (Ondansetron Hcl 4 Mg/2 Ml Vial) 4 mg IVPUSH Q8H PRN PRN Reason: Nausea and Vomiting Last Admin: 06/15/22 13:19 Dose: 4 mg Documented By: RAZA Pharmacy Consult (Consult Rx Perform Med Rec) 1 each MISCELLANE ONCE PRN PRN Reason: Consult order Prochlorperazine Maleate (Prochlorperazine Maleate 5 Mg Tablet) 5 mg PO BID PRN PRN Reason: for nausea/vomiting Last Admin: 06/15/22 05:25 Dose: 5 mg Documented By: LANNY Rivaroxaban (Rivaroxaban 20 Mg Tablet) 20 mg PO DAILY@1700 [facility] Last Admin: 06/15/22 17:46 Dose: 20 mg Documented By: RAZA Sodium Chloride (0.9 % Sodium Chloride Flush 3 Ml Syringe) 3 ml IVFLUSH QSHIFT [facility] Last Admin: 06/15/22 21:57 Dose: Not Given Documented By: LANNY Non-Admin Reason: IV Running Labs 06/16/22 05:51 06/16/22 05:51 Labs: Laboratory Results - last 24 hr 06/15/22 06/15/22 06/16/22 14:48 14:48 05:51 MCV 86.7 MCH 29.3 MCHC 33.7 RDW 15.9 Plt Count 343 MPV 9.4 Immature Gran % (Auto) Cancelled Neut % (Auto) Cancelled Lymph % (Auto) Cancelled [place] % (Auto) Cancelled Eos % (Auto) Cancelled Baso % (Auto) Cancelled Lymph # (Auto) Cancelled [place] # (Auto) Cancelled Eos # (Auto) Cancelled Baso # (Auto) Cancelled Abs Immat Gran (auto) Cancelled Absolute Neuts (auto) Cancelled Absolute Nucleated RBC 0.000 Nucleated RBC % (auto) 0.0 Neutrophils % (Manual) 79 H Band Neutrophils % 2 L Lymphocytes % (Manual) 3 L Atypical Lymphs % (Man) 1 Monocytes % (Manual) 11 Metamyelocytes % 1 Myelocytes % 2 Promyelocytes % 1 Abs Neuts (Manual) 12.0 H Lymphocytes # (Manual) 0.4 L Atyp Lymphs # (Manual) 0.1 Monocytes # (Manual) 1.6 H Metamyelocytes # 0.1 Myelocytes # 0.3 Promyelocytes # 0.1 Platelet Estimate NORMAL Plt Morphology Comment NORMAL RBC Morphology NOTED [place] Cells 3+ (>5) Anion Gap Estim Creat Clear Calc Estimated GFR Random Glucose Lactic Acid 2.0 Calcium Total Bilirubin AST ALT Alkaline Phosphatase C-Reactive Protein 11.55 H Total Protein Albumin 06/16/22 05:51 MCV MCH MCHC RDW Plt Count MPV Immature Gran % (Auto) Neut % (Auto) Lymph % (Auto) [place] % (Auto) Eos % (Auto) Baso % (Auto) Lymph # (Auto) [place] # (Auto) Eos # (Auto) Baso # (Auto) Abs Immat Gran (auto) Absolute Neuts (auto) Absolute Nucleated RBC Nucleated RBC % (auto) Neutrophils % (Manual) Band Neutrophils % Lymphocytes % (Manual) Atypical Lymphs % (Man) Monocytes % (Manual) Metamyelocytes % Myelocytes % Promyelocytes % Abs Neuts (Manual) Lymphocytes # (Manual) Atyp Lymphs # (Manual) Monocytes # (Manual) Metamyelocytes # Myelocytes # Promyelocytes # Platelet Estimate Plt Morphology Comment RBC Morphology [place] Cells Anion Gap 16 Estim Creat Clear Calc 60.9 Estimated GFR > 60 Random Glucose 152 H Lactic Acid Calcium 8.1 L Total Bilirubin 0.3 AST 42 H ALT 71 H Alkaline Phosphatase 249 H C-Reactive Protein Total Protein 5.3 L Albumin 2.7 L Microbiology Microbiology Results: Microbiology 06/13/22 15:40 Blood Culture - Preliminary Blood - Venous No growth after 48 hours. 06/13/22 15:40 Blood Culture - Preliminary Blood - Venous No growth after 48 hours. Assessment and Plan (1) C. difficile diarrhea: Status: Acute Plan 71 year old femal with history of?F (atrial fibrillation) Chronic anticoagulation, Chronic kidney disease, AAA followed at [facility], GERD (gastroesophageal reflux disease), ? History of uterine cancer , HLD (hyperlipidemia), HTN (hypertension), COPD not on home O2, chronic indwelling abdi cath due to neurogenic bladder here with sob, abd pain, n/v, diarrhea. SOB, likely related? to COPD, presently no sob, normal O2 sat, Pneumonia as seen on xray with elevated WBC--repeat CXR was better, WBC down, continue Ceftriaxone for 5 days Diarrhea, has rectal tube.? C dif +, dificid 06/13/22, ID if peristent HypOkalemia--corrected with K in IVF ? Ileus on CT, exam pretty bening, doubt? obstruction with ongoing diarrhea, and bening exam, seen by surgery and no indication for intervention Permanent AFIB--rate controlled on metoprolol? and digoxin, and Xarelto for stroke prevention GERD PPI HLD--simvastatin DVT prophy : Xarelto advance diet as fanny Need for inpatient: C dif with profuse diarrhea, need iV fluid to maintain hydration Time Spent With Patient Time: Total time managing care of this patient today ____ minutes. Quality Stroke Does the patient have a stroke diagnosis?: No VTE Prior VTE?: No VTE Risk Level:: Medical - moderate - high VTE Device Contraindication: Treatment Not Tolerated VTE Drug Contraindication: N/A - Med Ordered
[2022-06-16] MEDS: Folic Acid 1 MG TABLET PO (08:30)
[2022-06-16] MEDS: Dicyclomine HCl 10 MG CAPSULE PO ×2 (08:30→20:40)
[2022-06-16] MEDS: Omeprazole 20 MG CAPSULE.DR PO (08:30)
[2022-06-16] MEDS: Metoprolol Succinate ER 25 MG TAB.ER.24H PO ×2 (08:30→20:40)
[2022-06-16] MEDS: Ferrous Sulfate 324 MG TABLET.DR PO ×2 (08:31→20:40)
[2022-06-16] MEDS: Digoxin 0.25 MG TABLET PO (08:31)
[2022-06-16] MEDS: 0.9 % Sodium Chloride Flush 3 ML SYRINGE IVFLUSH ×2 (08:32→17:16)
[2022-06-16] MEDS: Ascorbic Acid 500 MG TABLET PO (08:32)
[2022-06-16] MEDS: ondansetron HCL 4 MG/2 ML VIAL IVPUSH ×2 (08:37→14:38)
[2022-06-16] MEDS: Albuterol/Iprat 2.5/0.5MG 3 ML AMPUL.NEB INHALE ×2 (08:42→15:22)
[2022-06-16] MEDS: KCl 20 mEq in 5 % Dextrose 20 MEQ/1,000 ML IV.SOLN 125 MEQ IVCONT ×2 (08:50→17:41)
[2022-06-16 09:13] LABS: Magnesium 1.9 mg/dL (1.6-2.6)
--- NOTE | 2022-06-16 09:13 | P.CONGS_ITS ---
History of Present Illness Consult details Consult date: 06/16/22 Requesting physician: Gee Correia Narrative: 71 year old femal with extensive PMH including atrial fibrillation on chronic anticoagulation, CKD, AAA followed at [facility], GERD, history of uterine cancer s/p total hysterectomy, HLD, HTN, COPD not on home O2, chronic indwelling abdi cath due to neurogenic bladder who presented to the ED with shortness of breath, diarrhea and abdominal pain. She reported profuse non bloody, watery diarrhea for weeks. She reports this began following her colonoscopy in May. Her PO intake has been poor due to this and it is associated with mild abdominal pain and nausea/ occasional episodes of vomiting. She actually decided to seek care because she developed shortness of breath with nonproductive cough. Diarrhea was so severe in the ED that a rectal tube was inserted with dark green liquid stook. Work up included CBC, BMP which showed a leukocytosis of [address] showed small bowel dilatation with gas and stool in colon. She was also found to have a pneumonia of left upper lobe. She was admitted to medicine for further treatment of the diarrhea, PNA. She was started on ceftriaxone and c diff came back positive so treatment of c diff colitis was iniated with dificid. Surgery was consulted given the CT findings of possible ileus. She reports feeling slightly improved this morning. She denies abd pain. She has had two episodes of emesis since admission but reports nausea has resolved. Rectal tube output has slowed. She has not been OOB but sat on side of bed yesterday. She reports feeling overall weak. Review of Systems Constitutional: Constitutional: Denies fever(s) and Denies malaise ENT: Denies dizziness Cardiovascular: Cardiovascular: Denies chest pain and Reports dyspnea Respiratory: Respiratory: Reports dyspnea Gastrointestinal: Gastrointestinal: Reports as per HPI Genitourinary: Genitourinary: Reports other (abdi in place) Integumentary/Breasts: Skin/Breast: Denies rash and Denies jaundice Neurologic: Denies dizziness [facility] Past Medical History Medical History Cardiac pacemaker in situ COPD (chronic obstructive pulmonary disease) Dyspnea on exertion Exercise hypoxemia GERD (gastroesophageal reflux disease) HTN (hypertension) Hypertension Legally blind On beta mayra at home Persistent atrial fibrillation Pneumonia Retention, urine Sick sinus syndrome Family History Family History Father CHF (congestive heart failure) Cancer Pacemaker Mother Emphysema lung Surgical History Surgical History History of cardioversion History of endoscopy History of esophagogastroduodenoscopy (EGD) History of radiofrequency ablation (RFA) for complex left atrial arrhythmia Hx of cardiac pacemaker Hx of colonoscopy Hx of hysterectomy Social History Social History Household Members: Spouse Housing: House Do you presently have visiting nurse or other home services: Yes Unable to assess alcohol history related to: Unknown Alcohol intake: never Patient Tobacco Use Status: Former Tobacco user Quit Date: 30 years ago Advance Directives Date on File: 06/13/22 service: No Meds Allergies Allergy/AdvReac Type Severity Reaction Status Date / Time No Known Allergies Allergy Verified 06/13/22 11:35 [No Known Allergies*] Active Medications: Current Medications Acetaminophen (Acetaminophen Supp 650 Mg Supp.Rect) 650 mg TN Q6H PRN PRN Reason: Pain, Mild (Pain Scale 1-3) Hydrocodone Bitart/Acetaminophen (Hydrocodone Bit/Acetam 7.5/325 Tablet) 1 tab PO Q6H PRN PRN Reason: severe pain Last Admin: 06/15/22 13:18 Dose: 1 tab Albuterol Sulfate (Albuterol Sulfate 90 Mcg 8 Gm Inhaler) 2 puff INHALE Q2H PRN PRN Reason: wheezing Albuterol/Ipratropium (Albuterol/Iprat 2.5/0.5mg 3 Ml Ampul.Neb) 3 ml INHALE RQ4H WHILE AWAKE [facility] Last Admin: 06/16/22 08:42 Dose: 3 ml Ascorbic Acid (Ascorbic Acid 500 Mg Tablet) 500 mg PO DAILY [facility] Last Admin: 06/16/22 08:32 Dose: 500 mg Atorvastatin Calcium (Atorvastatin Calcium 20 Mg Tablet) 20 mg PO BEDTIME [facility] Last Admin: 06/15/22 21:13 Dose: 20 mg Calcium Carbonate (Calcium Carbonate 500 Mg Tablet) 250 mg PO TID PRN PRN Reason: Heartburn Last Admin: 06/14/22 19:26 Dose: 250 mg Dicyclomine HCl (Dicyclomine Hcl 10 Mg Capsule) 10 mg PO BID [facility] Last Admin: 06/16/22 08:30 Dose: 10 mg Digoxin (Digoxin 0.25 Mg Tablet) 0.25 mg PO DAILY [facility] Last Admin: 06/16/22 08:31 Dose: 0.25 mg Ferrous Sulfate (Ferrous Sulfate 324 Mg Tablet.) 324 mg PO BID [facility] Last Admin: 06/16/22 08:31 Dose: 324 mg Fidaxomicin (Fidaxomicin 200 Mg Tablet) 200 mg PO Q12H [facility] Last Admin: 06/15/22 21:13 Dose: 200 mg Folic Acid (Folic Acid 1 Mg Tablet) 1 mg PO DAILY [facility] Last Admin: 06/16/22 08:30 Dose: 1 mg Potassium Chloride/Dextrose (Kcl 20 Meq In 5 % Dextrose) 20 meq in 1,000 mls @ 125 mls/hr IVCONT .Q8H [facility] Last Admin: 06/16/22 08:50 Dose: 125 mls/hr Melatonin (Melatonin 3 Mg Tablet) 3 mg PO BEDTIME PRN PRN Reason: Insomnia Metoprolol Succinate (Metoprolol Succinate Er 25 Mg Tab.Er.24h) 25 mg PO BID [facility]; Protocol Last Admin: 06/16/22 08:30 Dose: 25 mg Omeprazole (Omeprazole 20 Mg Capsule.) 20 mg PO DAILY [facility] Last Admin: 06/16/22 08:30 Dose: 20 mg Ondansetron HCl (Ondansetron Odt 4 Mg Tab.Rapdis) 4 mg TRANSLINGU Q6H PRN PRN Reason: nausea/vomiting Ondansetron HCl (Ondansetron Hcl 4 Mg/2 Ml Vial) 4 mg IVPUSH Q8H PRN PRN Reason: Nausea and Vomiting Last Admin: 06/16/22 08:37 Dose: 4 mg Pharmacy Consult (Consult Rx Perform Med Rec) 1 each MISCELLANE ONCE PRN PRN Reason: Consult order Prochlorperazine Maleate (Prochlorperazine Maleate 5 Mg Tablet) 5 mg PO BID PRN PRN Reason: for nausea/vomiting Last Admin: 06/15/22 05:25 Dose: 5 mg Rivaroxaban (Rivaroxaban 20 Mg Tablet) 20 mg PO DAILY@1700 [facility] Last Admin: 06/15/22 17:46 Dose: 20 mg Sodium Chloride (0.9 % Sodium Chloride Flush 3 Ml Syringe) 3 ml IVFLUSH QSHIFT [facility] Last Admin: 06/16/22 08:32 Dose: 3 ml Home Medications Medication Instructions Recorded Confirmed Last Taken Type ferrous sulfate 325 mg (65 mg 325 mg PO BID 04/07/20 06/13/22 06/13/22 History iron) tablet folic acid 1 mg tablet 1 mg PO DAILY 04/07/20 06/13/22 06/13/22 History calcium carbonate 200 mg calcium 200 mg PO TID PRN Heartburn 02/10/21 06/13/22 Unknown History (500 mg) chewable tablet (Tums) simvastatin 40 mg tablet 40 mg PO BEDTIME 02/10/21 06/13/22 Unknown History ascorbic acid (vitamin C) 500 mg 500 mg PO DAILY 03/31/21 06/13/22 06/13/22 History tablet metoprolol succinate 25 mg 25 mg PO BID 12/24/21 06/13/22 06/13/22 History tablet,extended release 24 hr albuterol sulfate 90 mcg/actuation 2 puff inhalation Q6H PRN wheezing 05/12/22 06/13/22 Unknown History aerosol inhaler hydrocodone 7.5 mg-acetaminophen 1 tab PO Q6H PRN severe pain 05/12/22 06/13/22 05/17/22 History 325 mg tablet ipratropium 0.5 mg-albuterol 3 mg 3 ml inhalation Q4-6H PRN wheezing 05/12/22 06/13/22 Unknown History (2.5 mg base)/3 mL nebulization soln ondansetron HCl 4 mg tablet 4 mg PO Q6H PRN nausea/vomiting 06/13/22 06/13/22 Unknown History rivaroxaban 20 mg tablet (Xarelto) 20 mg PO DAILY@1700 06/13/22 06/13/22 Unknown History Physical Exam Vital Signs: Vital Signs: Last Vital Signs Temp 97.6 F 06/16/22 07:47 Pulse 76 06/16/22 08:43 Resp 20 06/16/22 08:43 BP 105/76 06/16/22 07:47 Pulse Ox 97 06/16/22 07:47 O2 Del Method Room Air 06/16/22 07:47 O2 Flow Rate 95 06/14/22 05:08 BMI result Body Mass Index 23.7 Const: General: comfortable, no acute distress and alert Nutritional Appearance: malnourished and thin Orientation/consciousness: patient oriented x3 Resp: Effort & Inspection: normal respiratory effort GI: Inspection: Yes distended (softly) and Yes scar (midline ) Palpation (GI): Soft to palpation, Tenderness to palpation present (GI) (upper abdomen ), no guarding and not rigid Percussion: Yes tympanic to percussion Skin: General skin exam: no rashes or lesions noted Neuro: General: patient oriented x3 and moves all extremities Results Labs 06/16/22 05:51 06/16/22 05:51 Labs: Abnormal lab results 06/15/22 06/16/22 06/16/22 Range/Units 14:48 05:51 05:51 WBC 14.8 H (4.8-10.8) X10*3/uL Neutrophils % (Manual) 79 H (45-73) % Band Neutrophils % 2 L (3-5) % Lymphocytes % (Manual) 3 L (20-40) % Abs Neuts (Manual) 12.0 H (2.0-8.3) X10*3/uL Lymphocytes # (Manual) 0.4 L (1.2-4.9) X10*3/uL Monocytes # (Manual) 1.6 H (0.1-1.2) X10*3/uL Potassium 2.9 L D (3.3-5.1) mmol/L Carbon Dioxide 19 L (22-29) mmol/L Random Glucose 152 H (60-115) mg/dL Calcium 8.1 L (8.4-10.2) mg/dL AST 42 H (5-31) U/L ALT 71 H (0-31) U/L Alkaline Phosphatase 249 H (39-117) U/L C-Reactive Protein 11.55 H (< or = 0.50) mg/dL Total Protein 5.3 L (6.5-8.0) g/dL Albumin 2.7 L (3.5-5.0) g/dL Short CBC 06/16/22 Range/Units 05:51 WBC 14.8 H (4.8-10.8) X10*3/uL Hgb 13.9 (12.0-16.0) g/dl Hct 41.2 (37.0-47.0) % Plt Count 343 (160-400) X10*3/uL BMP 06/16/22 05:51 Sodium 140 Potassium 2.9 L D Chloride 108 Carbon Dioxide 19 L BUN 13 Creatinine 0.72 Calcium 8.1 L Liver Function 06/16/22 Range/Units 05:51 Total Bilirubin 0.3 (0.0-1.0) mg/dL AST 42 H (5-31) U/L ALT 71 H (0-31) U/L Alkaline Phosphatase 249 H (39-117) U/L Albumin 2.7 L (3.5-5.0) g/dL Urine 06/13/22 Range/Units 18:16 Urine Color Yellow Urine Appearance Clear Urine pH 6.5 (5.0-9.0) Ur Specific [place] >= 1.030 H (1.005-1.025) Urine Protein 30 (1+) H (Neg-Trace) mg/dL Urine Glucose (UA) Negative (Negative) mg/dL All other labs normal. Imaging Abdomen CT scan report/results: report reviewed and image reviewed Assessment and Plan (1) C. difficile diarrhea: Status: Acute Plan 71 year old female with multiple medical comorbidities admitted with PNA, c diff. CT scan on admission showed dilated small bowel loop with softly distended, tympanitic abdomen without peritoneal signs. She may have a segmental ileus, likely from the c diff. Rec continued supportive measures with IVF, abx for C diff. Correction of electrolytes. She has a relatively benign abd exam. Can advance diet as tolerated. Time Spent With Patient Time: Total time managing care of this patient today ____ minutes. Procedures Date of Service Date of Service: 06/16/22
[2022-06-16] MEDS: cefTRIAXone sodium 1 GM in 0.9 % Sodium Chloride 50 ML IV (10:31)
[2022-06-16] MEDS: Fidaxomicin 200 MG TABLET PO ×2 (10:31→23:22)
[2022-06-16] MEDS: HYDROcodone Bit/Acetam 7.5/325 TABLET 1 TAB PO ×2 (14:25→23:26)
--- NOTE | 2022-06-16 16:00 | PC.NURSE ---
Pt refused vital signs at this time . pt educated on importance . will attempt at next scheduled time
--- NOTE | 2022-06-16 16:00 | PC.NURSE ---
Pt's daughter Franny given an update over the phone by this Rn .
[2022-06-16] MEDS: Rivaroxaban 20 MG TABLET PO (17:47)
[2022-06-16] MEDS: Atorvastatin Calcium 20 MG TABLET PO (20:40)
[2022-06-17] VITALS (8 sets, daily range): BP systolic 106–129; BP diastolic 55–80; PULSE 60–77; RESP 16–18; TEMP 36–36.6; O2SAT 96–98
[2022-06-17] MEDS: KCl 20 mEq in 5 % Dextrose 20 MEQ/1,000 ML IV.SOLN 125 MEQ IVCONT ×4 (01:25→23:05)
[2022-06-17 06:32] LABS: Hematocrit 38.8 % (37.0-47.0); Hemoglobin 12.9 g/dl (12.0-16.0); Mean Corpuscular HGB Conc 33.2 g/dl (31.0-35.0); Mean Corpuscular Hemoglobin 29.5 pg (27.0-33.0); Mean Corpuscular Volume 88.6 fL (80.0-98.0); Mean Platelet Volume 9.3 fL (9.4-12.3); Platelet Count 334 X10*3/uL (160-400); Red Blood Count 4.38 X10*6/uL (4.20-5.50); Red Cell Distribution Width 15.8 % (11.0-16.0); White Blood Count 12.6 X10*3/uL (4.8-10.8)
[2022-06-17 07:03] LABS: Anion Gap 13 (12-20); Blood Urea Nitrogen 8 mg/dL (9-16); Calcium 8.1 mg/dL (8.4-10.2); Carbon Dioxide 21 mmol/L (22-29); Chloride 110 mmol/L (96-108); Creatinine Clr Calc Pharmacy 65.5; Estimated Glomerular Filt Rate > 60; Glucose Random 129 mg/dL (60-115); Potassium 3.6 mmol/L (3.3-5.1); Sodium 140 mmol/L (135-145)
[2022-06-17] MEDS: 0.9 % Sodium Chloride Flush 3 ML SYRINGE IVFLUSH (08:10)
[2022-06-17] MEDS: HYDROcodone Bit/Acetam 7.5/325 TABLET 1 TAB PO ×3 (08:15→23:51)
[2022-06-17] MEDS: Albuterol/Iprat 2.5/0.5MG 3 ML AMPUL.NEB INHALE ×4 (08:15→19:38)
[2022-06-17] MEDS: Digoxin 0.25 MG TABLET PO (08:16)
[2022-06-17] MEDS: Metoprolol Succinate ER 25 MG TAB.ER.24H PO ×2 (08:16→20:35)
[2022-06-17] MEDS: Dicyclomine HCl 10 MG CAPSULE PO ×2 (08:16→20:35)
[2022-06-17] MEDS: Folic Acid 1 MG TABLET PO (08:17)
[2022-06-17] MEDS: Ferrous Sulfate 324 MG TABLET.DR PO ×2 (08:17→20:35)
[2022-06-17] MEDS: Omeprazole 20 MG CAPSULE.DR PO (08:17)
[2022-06-17] MEDS: Ascorbic Acid 500 MG TABLET PO (08:18)
--- NOTE | 2022-06-17 09:00 | PC.NURSE ---
Pt's daughter Franny given an update on pt's status over the phone .
[2022-06-17] MEDS: cefTRIAXone sodium 1 GM in 0.9 % Sodium Chloride 50 ML IV (09:20)
--- NOTE | 2022-06-17 09:35 | PM.GIPN ---
Subjective Subjective Date of Service: 06/17/22 Interval History: feeling ruth what better breathing is easier diarrhea is less she is on clears and tolerated well WCC coming down Critical Care Time (minutes): 0 Physical Exam Vital Signs: Vital Signs: Last Vital Signs Temp 97.9 F 06/17/22 07:00 Pulse 63 06/17/22 08:49 Resp 16 06/17/22 08:49 BP 123/79 06/17/22 07:00 Pulse Ox 96 06/17/22 07:00 O2 Del Method Room Air 06/17/22 07:00 O2 Flow Rate 95 06/14/22 05:08 BMI result Body Mass Index 23.7 EXAM: GENERAL: The patient is thin, frail VITAL SIGNS:see workflow HEENT: Nonicteric sclerae, PERRLA, EOMI. Oropharynx clear. Moist mucous membranes. Conjunctivae appear well perfused. No thyroid mass. CHEST: Chest wall is nontender. HEART: Regular rate and rhythm without murmurs. LUNGS: Clear to auscultation bilaterally. ABDOMEN: Soft, positive bowel sounds, generally tender, no organomegaly.no flank tenderness SKIN: No rash, no excessive bruising, petechiae, or purpura. NEUROLOGIC: Cranial nerves II-XII intact without motor/sensory deficit. Objective Data Labs 06/17/22 05:49 06/17/22 05:49 Labs: Laboratory Results - last 24 hr 06/17/22 06/17/22 05:49 05:49 WBC 12.6 H RBC 4.38 Hgb 12.9 Hct 38.8 MCV 88.6 MCH 29.5 MCHC 33.2 RDW 15.8 Plt Count 334 MPV 9.3 L Absolute Nucleated RBC 0.000 Nucleated RBC % (auto) 0.0 Sodium 140 Potassium 3.6 D Chloride 110 H Carbon Dioxide 21 L Anion Gap 13 BUN 8 L Creatinine 0.67 Estim Creat Clear Calc 65.5 Estimated GFR > 60 Random Glucose 129 H Calcium 8.1 L Microbiology Microbiology Results: Microbiology 06/13/22 15:40 Blood - Venous Blood Culture - Preliminary No growth after 48 hours. 06/13/22 15:40 Blood - Venous Blood Culture - Preliminary No growth after 48 hours. Procedures Date of Service Date of Service: 06/17/22 Progress Note: A&P Assessment and plan (1) C. difficile diarrhea: Status: Acute Plan 1/ c diff wit pneumonia, seems to be improving, LFT were elevated possibly due to sepsis PLAN: 1/ complete dificid course 2/ recheck LFT and crp--if still high then image liver and portal vein, IVC Time Spent With Patient Time: Total time managing care of this patient today ____ minutes. Quality Stroke Does the patient have a stroke diagnosis?: No VTE Prior VTE?: No VTE Risk Level:: Medical - moderate - high VTE Device Contraindication: Treatment Not Tolerated VTE Drug Contraindication: N/A - Med Ordered
[2022-06-17 10:09] LABS: Alanine Aminotransferase 55 U/L (0-31); Albumin Level 2.5 g/dL (3.5-5.0); Alkaline Phosphatase 210 U/L (39-117); Aspartate Amino Transferase 29 U/L (5-31); Bilirubin Direct < 0.2 mg/dL (0.0-0.5); Bilirubin Total 0.2 mg/dL (0.0-1.0); C Reactive Protein 2.49 mg/dL (< or = 0.50)
[2022-06-17] MEDS: Fidaxomicin 200 MG TABLET PO ×2 (11:01→23:15)
[2022-06-17] MEDS: Ondansetron ODT 4 MG TAB.RAPDIS TRANSLINGU (15:37)
[2022-06-17] MEDS: Rivaroxaban 20 MG TABLET PO (16:34)
[2022-06-17] MEDS: Atorvastatin Calcium 20 MG TABLET PO (20:35)
[2022-06-17] MEDS: Melatonin 3 MG TABLET PO (23:51)
[2022-06-18] VITALS (7 sets, daily range): BP systolic 125–147; BP diastolic 77–82; PULSE 59–92; RESP 16–18; TEMP 36–36.4; O2SAT 96–99
[2022-06-18 06:27] LABS: Hematocrit 37.4 % (37.0-47.0); Hemoglobin 12.3 g/dl (12.0-16.0); Mean Corpuscular HGB Conc 32.9 g/dl (31.0-35.0); Mean Corpuscular Hemoglobin 29.1 pg (27.0-33.0); Mean Corpuscular Volume 88.4 fL (80.0-98.0); Platelet Count 301 X10*3/uL (160-400); Red Blood Count 4.23 X10*6/uL (4.20-5.50); White Blood Count 11.2 X10*3/uL (4.8-10.8)
[2022-06-18 06:38] LABS: Anion Gap 11 (12-20); Blood Urea Nitrogen 5 mg/dL (9-16); Carbon Dioxide 20 mmol/L (22-29); Chloride 111 mmol/L (96-108); Creatinine Clr Calc Pharmacy 61.8; Estimated Glomerular Filt Rate > 60; Glucose Random 118 mg/dL (60-115); Potassium 4.1 mmol/L (3.3-5.1); Sodium 138 mmol/L (135-145)
--- NOTE | 2022-06-18 08:01 | HO.PM.IMPN ---
Subjective Subjective Date of Service: 06/18/22 Interval History: f/u on cdif diarrhea, chronic copd interval history: persistent diarrhea, no sob and overall seems better Review of Systems +diarrhea, no sob, +nausea Physical Exam Vital Signs: Vital Signs: Last Vital Signs Temp 97.1 F 06/18/22 07:52 Pulse 62 06/18/22 07:52 Resp 16 06/18/22 07:52 BP 134/82 06/18/22 07:52 Pulse Ox 99 06/18/22 07:52 O2 Del Method Room Air 06/18/22 07:52 O2 Flow Rate 95 06/14/22 05:08 BMI result Body Mass Index 23.7 Objective Data Active Medications Acetaminophen (Acetaminophen Supp 650 Mg Supp.Rect) 650 mg [place] Q6H PRN PRN Reason: Pain, Mild (Pain Scale 1-3) Hydrocodone Bitart/Acetaminophen (Hydrocodone Bit/Acetam 7.5/325 Tablet) 1 tab PO Q6H PRN PRN Reason: severe pain Last Admin: 06/17/22 23:51 Dose: 1 tab Documented By: AMANDA Albuterol Sulfate (Albuterol Sulfate 90 Mcg 8 Gm Inhaler) 2 puff INHALE Q2H PRN PRN Reason: wheezing Albuterol/Ipratropium (Albuterol/Iprat 2.5/0.5mg 3 Ml Ampul.Neb) 3 ml INHALE RQ4H WHILE AWAKE [facility] Last Admin: 06/18/22 07:56 Dose: Not Given Documented By: FELISHA Non-Admin Reason: Patient Refused Ascorbic Acid (Ascorbic Acid 500 Mg Tablet) 500 mg PO DAILY [facility] Last Admin: 06/17/22 08:18 Dose: 500 mg Documented By: BRYAN Atorvastatin Calcium (Atorvastatin Calcium 20 Mg Tablet) 20 mg PO BEDTIME [facility] Last Admin: 06/17/22 20:35 Dose: 20 mg Documented By: AMANDA Calcium Carbonate (Calcium Carbonate 500 Mg Tablet) 250 mg PO TID PRN PRN Reason: Heartburn Last Admin: 06/14/22 19:26 Dose: 250 mg Documented By: LANNY Dicyclomine HCl (Dicyclomine Hcl 10 Mg Capsule) 10 mg PO BID [facility] Last Admin: 06/17/22 20:35 Dose: 10 mg Documented By: AMANDA Digoxin (Digoxin 0.25 Mg Tablet) 0.25 mg PO DAILY [facility] Last Admin: 06/17/22 08:16 Dose: 0.25 mg Documented By: BRYAN Ferrous Sulfate (Ferrous Sulfate 324 Mg Tablet.) 324 mg PO BID [facility] Last Admin: 06/17/22 20:35 Dose: 324 mg Documented By: AMANDA Fidaxomicin (Fidaxomicin 200 Mg Tablet) 200 mg PO Q12H [facility] Last Admin: 06/17/22 23:15 Dose: 200 mg Documented By: AMANDA Folic Acid (Folic Acid 1 Mg Tablet) 1 mg PO DAILY [facility] Last Admin: 06/17/22 08:17 Dose: 1 mg Documented By: BRYAN Potassium Chloride/Dextrose (Kcl 20 Meq In 5 % Dextrose) 20 meq in 1,000 mls @ 125 mls/hr IVCONT .Q8H [facility] Last Admin: 06/17/22 23:05 Dose: 125 mls/hr Documented By: AMANDA Ceftriaxone Sodium 1 gm/ (Sodium Chloride) 50 mls @ 100 mls/hr IV Q24H [facility] Last Infusion: 06/17/22 10:54 Dose: 0 mls/hr Documented By: BRYAN Melatonin (Melatonin 3 Mg Tablet) 3 mg PO BEDTIME PRN PRN Reason: Insomnia Last Admin: 06/17/22 23:51 Dose: 3 mg Documented By: AMANDA Metoprolol Succinate (Metoprolol Succinate Er 25 Mg Tab.Er.24h) 25 mg PO BID [facility]; Protocol Last Admin: 06/17/22 20:35 Dose: 25 mg Documented By: AMANDA Omeprazole (Omeprazole 20 Mg Capsule.) 20 mg PO DAILY [facility] Last Admin: 06/17/22 08:17 Dose: 20 mg Documented By: BRYAN Ondansetron HCl (Ondansetron Odt 4 Mg Tab.Rapdis) 4 mg TRANSLINGU Q6H PRN PRN Reason: nausea/vomiting Last Admin: 06/17/22 15:37 Dose: 4 mg Documented By: BRYAN Ondansetron HCl (Ondansetron Hcl 4 Mg/2 Ml Vial) 4 mg IVPUSH Q8H PRN PRN Reason: Nausea and Vomiting Last Admin: 06/16/22 14:38 Dose: 4 mg Documented By: NAHUM Comments: ok per MD Pharmacy Consult (Consult Rx Perform Med Rec) 1 each MISCELLANE ONCE PRN PRN Reason: Consult order Prochlorperazine Maleate (Prochlorperazine Maleate 5 Mg Tablet) 5 mg PO BID PRN PRN Reason: for nausea/vomiting Last Admin: 06/15/22 05:25 Dose: 5 mg Documented By: LANNY Rivaroxaban (Rivaroxaban 20 Mg Tablet) 20 mg PO DAILY@1700 [facility] Last Admin: 06/17/22 16:34 Dose: 20 mg Documented By: BRYAN Sodium Chloride (0.9 % Sodium Chloride Flush 3 Ml Syringe) 3 ml IVFLUSH QSHIFT [facility] Last Admin: 06/17/22 20:38 Dose: Not Given Documented By: AMANDA Non-Admin Reason: IV Running Labs 06/18/22 05:41 06/18/22 05:41 Labs: Laboratory Results - last 24 hr 06/17/22 06/18/22 06/18/22 05:49 05:41 05:41 MCV 88.4 MCH 29.1 MCHC 32.9 RDW 16.0 Plt Count 301 MPV 9.0 L Absolute Nucleated RBC 0.000 Nucleated RBC % (auto) 0.0 Anion Gap 11 L Estim Creat Clear Calc 61.8 Estimated GFR > 60 Random Glucose 118 H Calcium 8.0 L Total Bilirubin 0.2 Direct Bilirubin < 0.2 AST 29 ALT 55 H Alkaline Phosphatase 210 H C-Reactive Protein 2.49 H Total Protein 5.0 L Albumin 2.5 L Assessment and Plan (1) C. difficile diarrhea: Status: Acute Plan 71 year old femal with history of?F (atrial fibrillation) Chronic anticoagulation, Chronic kidney disease, AAA followed at [facility], GERD (gastroesophageal reflux disease), ? History of uterine cancer , HLD (hyperlipidemia), HTN (hypertension), COPD not on home O2, chronic indwelling abdi cath due to neurogenic bladder here with sob, abd pain, n/v, diarrhea. SOB, likely related? to COPD, presently no sob, normal O2 sat, Pneumonia as seen on xray with elevated WBC--repeat CXR was better, WBC down, continue Ceftriaxone for 5 days---NO Sepsis Diarrhea, + C d has rectal tube with significant output still.?, dificid 06/13/22, ID if peristent. GI following. advace diet HypOkalemia--corrected with K in IVF ? Ileus on CT, exam pretty bening, doubt? obstruction with ongoing diarrhea, and bening exam, seen by surgery and no indication for intervention Permanent AFIB--rate controlled on metoprolol? and digoxin, and Xarelto for stroke prevention GERD PPI HLD--simvastatin elevated lfts, etiology unclear, follow level Elevated LFTs DVT prophy : Xarelto advance diet as fanny Need for inpatient: C dif with profuse diarrhea, need iV fluid to maintain hydration Time Spent With Patient Time: Total time managing care of this patient today ____ minutes. Quality Stroke Does the patient have a stroke diagnosis?: No VTE Prior VTE?: No VTE Risk Level:: Medical - moderate - high VTE Device Contraindication: Treatment Not Tolerated VTE Drug Contraindication: N/A - Med Ordered
[2022-06-18 08:23] LABS: Alanine Aminotransferase 46 U/L (0-31); Albumin Level 2.3 g/dL (3.5-5.0); Alkaline Phosphatase 173 U/L (39-117); Aspartate Amino Transferase 23 U/L (5-31); Bilirubin Direct < 0.2 mg/dL (0.0-0.5); Bilirubin Total 0.2 mg/dL (0.0-1.0); Total Protein 4.8 g/dL (6.5-8.0)
[2022-06-18] MEDS: HYDROcodone Bit/Acetam 7.5/325 TABLET 1 TAB PO ×2 (09:02→16:23)
[2022-06-18] MEDS: Omeprazole 20 MG CAPSULE.DR PO (09:03)
[2022-06-18] MEDS: Folic Acid 1 MG TABLET PO (09:03)
[2022-06-18] MEDS: Ferrous Sulfate 324 MG TABLET.DR PO ×2 (09:03→20:25)
[2022-06-18] MEDS: Ascorbic Acid 500 MG TABLET PO (09:03)
[2022-06-18] MEDS: Metoprolol Succinate ER 25 MG TAB.ER.24H PO ×2 (09:03→20:25)
[2022-06-18] MEDS: Dicyclomine HCl 10 MG CAPSULE PO ×2 (09:04→20:25)
[2022-06-18] MEDS: Digoxin 0.25 MG TABLET PO (09:04)
[2022-06-18] MEDS: 0.9 % Sodium Chloride Flush 3 ML SYRINGE IVFLUSH ×2 (09:04→20:26)
[2022-06-18] MEDS: cefTRIAXone sodium 1 GM in 0.9 % Sodium Chloride 50 ML IV (09:16)
[2022-06-18] MEDS: Albuterol/Iprat 2.5/0.5MG 3 ML AMPUL.NEB INHALE ×3 (11:14→18:55)
[2022-06-18] MEDS: Fidaxomicin 200 MG TABLET PO ×2 (12:00→23:36)
[2022-06-18] MEDS: Rivaroxaban 20 MG TABLET PO (16:24)
[2022-06-18] MEDS: Atorvastatin Calcium 20 MG TABLET PO (20:26)
[2022-06-18] MEDS: ondansetron HCL 4 MG/2 ML VIAL IVPUSH (21:47)
[2022-06-19 02:36] VITALS: BP 120/64; PULSE 61; RESP 18; TEMP 36.6; O2SAT 99
--- NOTE | 2022-06-19 06:16 | PC.NURSE ---
pt states that I shouldn't have pineapple, it makes me nausea, and my stomach can't take it . given zofran one dose, and calcium carbonate 250 mg. pt out put of rectal tube has 200 mL. and some of leaking stool. provided incontinent of stool and [facility] care.
[2022-06-19 07:44] VITALS: BP 115/59; PULSE 62; RESP 17; TEMP 36.8; O2SAT 98
--- NOTE | 2022-06-19 08:21 | HO.PM.IMPN ---
Subjective Subjective Date of Service: 06/19/22 Interval History: f/u on cdif diarrhea, chronic copd interval history:Persistent diarrhea with some abd pain, this has been ongoing for since May Review of Systems +diarrhea, no sob, +nausea Physical Exam Vital Signs: Vital Signs: Last Vital Signs Temp 98.2 F 06/19/22 07:44 Pulse 62 06/19/22 07:44 Resp 17 06/19/22 07:44 BP 115/59 L 06/19/22 07:44 Pulse Ox 98 06/19/22 07:44 O2 Del Method Room Air 06/19/22 07:44 O2 Flow Rate 95 06/14/22 05:08 BMI result Body Mass Index 23.7 Objective Data Active Medications Acetaminophen (Acetaminophen Supp 650 Mg Supp.Rect) 650 mg [place] Q6H PRN PRN Reason: Pain, Mild (Pain Scale 1-3) Albuterol Sulfate (Albuterol Sulfate 90 Mcg 8 Gm Inhaler) 2 puff INHALE Q2H PRN PRN Reason: wheezing Albuterol/Ipratropium (Albuterol/Iprat 2.5/0.5mg 3 Ml Ampul.Neb) 3 ml INHALE RQ4H WHILE AWAKE [facility] Last Admin: 06/19/22 08:13 Dose: Not Given Documented By: FELISHA Non-Admin Reason: Patient Refused Ascorbic Acid (Ascorbic Acid 500 Mg Tablet) 500 mg PO DAILY [facility] Last Admin: 06/18/22 09:03 Dose: 500 mg Documented By: ADELAIDA Atorvastatin Calcium (Atorvastatin Calcium 20 Mg Tablet) 20 mg PO BEDTIME [facility] Last Admin: 06/18/22 20:26 Dose: 20 mg Documented By: AMANDA Calcium Carbonate (Calcium Carbonate 500 Mg Tablet) 250 mg PO TID PRN PRN Reason: Heartburn Last Admin: 06/19/22 02:52 Dose: 250 mg Documented By: AMANDA Dicyclomine HCl (Dicyclomine Hcl 10 Mg Capsule) 10 mg PO BID [facility] Last Admin: 06/18/22 20:25 Dose: 10 mg Documented By: AMANDA Digoxin (Digoxin 0.25 Mg Tablet) 0.25 mg PO DAILY [facility] Last Admin: 06/18/22 09:04 Dose: 0.25 mg Documented By: ADELAIDA Ferrous Sulfate (Ferrous Sulfate 324 Mg Tablet.) 324 mg PO BID [facility] Last Admin: 06/18/22 20:25 Dose: 324 mg Documented By: AMANDA Fidaxomicin (Fidaxomicin 200 Mg Tablet) 200 mg PO Q12H [facility] Last Admin: 06/18/22 23:36 Dose: 200 mg Documented By: AMANDA Folic Acid (Folic Acid 1 Mg Tablet) 1 mg PO DAILY [facility] Last Admin: 06/18/22 09:03 Dose: 1 mg Documented By: ADELAIDA Ceftriaxone Sodium 1 gm/ (Sodium Chloride) 50 mls @ 100 mls/hr IV Q24H [facility] Last Infusion: 06/18/22 09:46 Dose: 0 mls/hr Documented By: ADELAIDA Melatonin (Melatonin 3 Mg Tablet) 3 mg PO BEDTIME PRN PRN Reason: Insomnia Last Admin: 06/17/22 23:51 Dose: 3 mg Documented By: AMANDA Metoprolol Succinate (Metoprolol Succinate Er 25 Mg Tab.Er.24h) 25 mg PO BID [facility]; Protocol Last Admin: 06/18/22 20:25 Dose: 25 mg Documented By: AMANDA Omeprazole (Omeprazole 20 Mg Capsule.) 20 mg PO DAILY [facility] Last Admin: 06/18/22 09:03 Dose: 20 mg Documented By: ADELAIDA Ondansetron HCl (Ondansetron Odt 4 Mg Tab.Rapdis) 4 mg TRANSLINGU Q6H PRN PRN Reason: nausea/vomiting Last Admin: 06/17/22 15:37 Dose: 4 mg Documented By: BRYAN Ondansetron HCl (Ondansetron Hcl 4 Mg/2 Ml Vial) 4 mg IVPUSH Q8H PRN PRN Reason: Nausea and Vomiting Last Admin: 06/18/22 21:47 Dose: 4 mg Documented By: AMANDA Pharmacy Consult (Consult Rx Perform Med Rec) 1 each MISCELLANE ONCE PRN PRN Reason: Consult order Prochlorperazine Maleate (Prochlorperazine Maleate 5 Mg Tablet) 5 mg PO BID PRN PRN Reason: for nausea/vomiting Last Admin: 06/15/22 05:25 Dose: 5 mg Documented By: LANNY Rivaroxaban (Rivaroxaban 20 Mg Tablet) 20 mg PO DAILY@1700 [facility] Last Admin: 06/18/22 16:24 Dose: 20 mg Documented By: ADELAIDA Sodium Chloride (0.9 % Sodium Chloride Flush 3 Ml Syringe) 3 ml IVFLUSH QSHIFT [facility] Last Admin: 06/18/22 20:26 Dose: 3 ml Documented By: AMANDA Labs 06/18/22 05:41 06/18/22 05:41 Labs: Laboratory Results - last 24 hr 06/18/22 05:41 Total Bilirubin 0.2 Direct Bilirubin < 0.2 AST 23 ALT 46 H Alkaline Phosphatase 173 H Total Protein 4.8 L Albumin 2.3 L Microbiology Microbiology Results: Microbiology 06/13/22 15:40 Blood Culture - Final Blood - Venous No growth after 5 days. 06/13/22 15:40 Blood Culture - Final Blood - Venous No growth after 5 days. Assessment and Plan (1) C. difficile diarrhea: Status: Acute Plan 71 year old femal with history of?F (atrial fibrillation) Chronic anticoagulation, Chronic kidney disease, AAA followed at [facility], GERD (gastroesophageal reflux disease), ? History of uterine cancer , HLD (hyperlipidemia), HTN (hypertension), COPD not on home O2, chronic indwelling abdi cath due to neurogenic bladder here with sob, abd pain, n/v, diarrhea. SOB, likely related? to COPD, presently no sob, normal O2 sat, Pneumonia as seen on xray with elevated WBC--repeat CXR was better, WBC down, continue Ceftriaxone for 5 days---NO Sepsis Diarrhea, + C d has rectal tube with persistent high significant high output.?, dificid 06/13/22, GI to made further recommendation HypOkalemia--corrected with K in IVF ? Ileus on CT, exam pretty bening, doubt? obstruction with ongoing diarrhea, and bening exam, seen by surgery and no indication for intervention Permanent AFIB--rate controlled on metoprolol? and digoxin, and Xarelto for stroke prevention GERD PPI HLD--simvastatin elevated lfts, etiology unclear, follow level Elevated LFTs DVT prophy : Xarelto advance diet as fanny Need for inpatient: C dif with profuse diarrhea, need iV fluid to maintain hydration Time Spent With Patient Time: Total time managing care of this patient today ____ minutes. Quality Stroke Does the patient have a stroke diagnosis?: No VTE Prior VTE?: No VTE Risk Level:: Medical - moderate - high VTE Device Contraindication: Treatment Not Tolerated VTE Drug Contraindication: N/A - Med Ordered
[2022-06-19] MEDS: Dicyclomine HCl 10 MG CAPSULE PO ×2 (09:32→20:19)
[2022-06-19] MEDS: Digoxin 0.25 MG TABLET PO (09:32)
[2022-06-19] MEDS: Omeprazole 20 MG CAPSULE.DR PO (09:33)
[2022-06-19] MEDS: Metoprolol Succinate ER 25 MG TAB.ER.24H PO ×2 (09:33→20:19)
[2022-06-19] MEDS: Folic Acid 1 MG TABLET PO (09:33)
[2022-06-19] MEDS: Ferrous Sulfate 324 MG TABLET.DR PO ×2 (09:33→20:19)
[2022-06-19] MEDS: 0.9 % Sodium Chloride Flush 3 ML SYRINGE IVFLUSH ×3 (09:33→19:26)
[2022-06-19] MEDS: Ascorbic Acid 500 MG TABLET PO (09:33)
[2022-06-19] MEDS: Fidaxomicin 200 MG TABLET PO ×2 (10:46→23:15)
[2022-06-19] MEDS: cefTRIAXone sodium 1 GM in 0.9 % Sodium Chloride 50 ML IV (10:47)
[2022-06-19] MEDS: ondansetron HCL 4 MG/2 ML VIAL IVPUSH (14:34)
[2022-06-19] MEDS: Albuterol/Iprat 2.5/0.5MG 3 ML AMPUL.NEB INHALE ×2 (15:25→18:58)
[2022-06-19 15:26] VITALS: PULSE 60; RESP 16; O2SAT 97
[2022-06-19 15:32] VITALS: BP 139/79; PULSE 60; RESP 18; TEMP 37.1; O2SAT 98
[2022-06-19] MEDS: Rivaroxaban 20 MG TABLET PO (16:57)
[2022-06-19 18:59] VITALS: PULSE 64; RESP 18; O2SAT 97
[2022-06-19] MEDS: HYDROcodone Bit/Acetam 7.5/325 TABLET 1 TAB PO (19:25)
[2022-06-19 20:00] VITALS: BP 133/79; PULSE 95; RESP 16; TEMP 36.3; O2SAT 99
[2022-06-19] MEDS: Melatonin 3 MG TABLET PO (20:19)
[2022-06-19] MEDS: Atorvastatin Calcium 20 MG TABLET PO (20:19)
[2022-06-20 03:45] VITALS: BP 113/67; PULSE 60; RESP 18; TEMP 36.2; O2SAT 99
[2022-06-20] MEDS: HYDROcodone Bit/Acetam 7.5/325 TABLET 1 TAB PO ×3 (06:27→20:12)
[2022-06-20 06:29] LABS: Hematocrit 37.8 % (37.0-47.0); Hemoglobin 12.5 g/dl (12.0-16.0); Mean Corpuscular HGB Conc 33.1 g/dl (31.0-35.0); Mean Corpuscular Hemoglobin 29.1 pg (27.0-33.0); Mean Corpuscular Volume 88.1 fL (80.0-98.0); Platelet Count 288 X10*3/uL (160-400); Red Blood Count 4.29 X10*6/uL (4.20-5.50); Red Cell Distribution Width 16.2 % (11.0-16.0); White Blood Count 10.9 X10*3/uL (4.8-10.8)
[2022-06-20 06:49] LABS: Anion Gap 13 (12-20); Blood Urea Nitrogen 12 mg/dL (9-16); Calcium 7.9 mg/dL (8.4-10.2); Carbon Dioxide 23 mmol/L (22-29); Chloride 107 mmol/L (96-108); Creatinine Clr Calc Pharmacy 55.5; Estimated Glomerular Filt Rate > 60; Glucose Random 107 mg/dL (60-115); Potassium 4.6 mmol/L (3.3-5.1); Sodium 138 mmol/L (135-145)
[2022-06-20 06:57] VITALS: BP 150/90; PULSE 64; RESP 18; TEMP 36; O2SAT 97
[2022-06-20] MEDS: Albuterol/Iprat 2.5/0.5MG 3 ML AMPUL.NEB INHALE ×2 (07:28→11:09)
[2022-06-20 07:29] VITALS: PULSE 62; RESP 18; O2SAT 97
--- NOTE | 2022-06-20 07:30 | HO.PM.IMPN ---
Subjective Subjective Date of Service: 06/20/22 Interval History: f/u on cdif diarrhea, chronic copd interval history:Persistent diarrhea with some abdominal discomfort, tolerating regular diet Physical Exam Vital Signs: Vital Signs: Last Vital Signs Temp 96.8 F 06/20/22 06:57 Pulse 62 06/20/22 07:29 Resp 18 06/20/22 07:29 BP 150/90 H 06/20/22 06:57 Pulse Ox 97 06/20/22 06:57 O2 Del Method Room Air 06/20/22 06:57 O2 Flow Rate 95 06/14/22 05:08 BMI result Body Mass Index 23.7 Const: Other: General: AO X 3, no acute distress Resp: CTA bilateral CVS: S1,S2,RRR GI: +BS, NT, no distention Skin: No rash Neuro: motor grossly intact Psych: appropriate affect Objective Data Active Medications Acetaminophen (Acetaminophen Supp 650 Mg Supp.Rect) 650 mg [place] Q6H PRN PRN Reason: Pain, Mild (Pain Scale 1-3) Hydrocodone Bitart/Acetaminophen (Hydrocodone Bit/Acetam 7.5/325 Tablet) 1 tab PO Q6H PRN PRN Reason: severe pain Last Admin: 06/20/22 06:27 Dose: 1 tab Documented By: AMANDA Albuterol Sulfate (Albuterol Sulfate 90 Mcg 8 Gm Inhaler) 2 puff INHALE Q2H PRN PRN Reason: wheezing Albuterol/Ipratropium (Albuterol/Iprat 2.5/0.5mg 3 Ml Ampul.Neb) 3 ml INHALE RQ4H WHILE AWAKE [facility] Last Admin: 06/20/22 07:28 Dose: 3 ml Documented By: GRICEL Ascorbic Acid (Ascorbic Acid 500 Mg Tablet) 500 mg PO DAILY [facility] Last Admin: 06/19/22 09:33 Dose: 500 mg Documented By: RAZA Atorvastatin Calcium (Atorvastatin Calcium 20 Mg Tablet) 20 mg PO BEDTIME [facility] Last Admin: 06/19/22 20:19 Dose: 20 mg Documented By: AMANDA Calcium Carbonate (Calcium Carbonate 500 Mg Tablet) 250 mg PO TID PRN PRN Reason: Heartburn Last Admin: 06/20/22 06:27 Dose: 250 mg Documented By: AMANDA Dicyclomine HCl (Dicyclomine Hcl 10 Mg Capsule) 10 mg PO BID [facility] Last Admin: 06/19/22 20:19 Dose: 10 mg Documented By: AMANDA Digoxin (Digoxin 0.25 Mg Tablet) 0.25 mg PO DAILY [facility] Last Admin: 06/19/22 09:32 Dose: 0.25 mg Documented By: RAZA Ferrous Sulfate (Ferrous Sulfate 324 Mg Tablet.) 324 mg PO BID [facility] Last Admin: 06/19/22 20:19 Dose: 324 mg Documented By: AMANDA Fidaxomicin (Fidaxomicin 200 Mg Tablet) 200 mg PO Q12H [facility] Last Admin: 06/19/22 23:15 Dose: 200 mg Documented By: AMANDA Folic Acid (Folic Acid 1 Mg Tablet) 1 mg PO DAILY [facility] Last Admin: 06/19/22 09:33 Dose: 1 mg Documented By: RAZA Ceftriaxone Sodium 1 gm/ (Sodium Chloride) 50 mls @ 100 mls/hr IV Q24H [facility] Last Infusion: 06/19/22 11:35 Dose: 0 mls/hr Documented By: RAZA Melatonin (Melatonin 3 Mg Tablet) 3 mg PO BEDTIME PRN PRN Reason: Insomnia Last Admin: 06/19/22 20:19 Dose: 3 mg Documented By: AMANDA Metoprolol Succinate (Metoprolol Succinate Er 25 Mg Tab.Er.24h) 25 mg PO BID [facility]; Protocol Last Admin: 06/19/22 20:19 Dose: 25 mg Documented By: AMANDA Omeprazole (Omeprazole 20 Mg Capsule.) 20 mg PO DAILY [facility] Last Admin: 06/19/22 09:33 Dose: 20 mg Documented By: RAZA Ondansetron HCl (Ondansetron Odt 4 Mg Tab.Rapdis) 4 mg TRANSLINGU Q6H PRN PRN Reason: nausea/vomiting Last Admin: 06/17/22 15:37 Dose: 4 mg Documented By: BRYAN Ondansetron HCl (Ondansetron Hcl 4 Mg/2 Ml Vial) 4 mg IVPUSH Q8H PRN PRN Reason: Nausea and Vomiting Last Admin: 06/19/22 14:34 Dose: 4 mg Documented By: RAZA Pharmacy Consult (Consult Rx Perform Med Rec) 1 each MISCELLANE ONCE PRN PRN Reason: Consult order Prochlorperazine Maleate (Prochlorperazine Maleate 5 Mg Tablet) 5 mg PO BID PRN PRN Reason: for nausea/vomiting Last Admin: 06/15/22 05:25 Dose: 5 mg Documented By: LANNY Rivaroxaban (Rivaroxaban 20 Mg Tablet) 20 mg PO DAILY@1700 [facility] Last Admin: 06/19/22 16:57 Dose: 20 mg Documented By: RAZA Sodium Chloride (0.9 % Sodium Chloride Flush 3 Ml Syringe) 3 ml IVFLUSH QSHIFT [facility] Last Admin: 06/19/22 19:26 Dose: 3 ml Documented By: AMANDA Labs 06/20/22 06:05 06/20/22 06:05 Labs: Laboratory Results - last 24 hr 06/20/22 06/20/22 06:05 06:05 MCV 88.1 MCH 29.1 MCHC 33.1 RDW 16.2 H Plt Count 288 MPV 9.0 L Absolute Nucleated RBC 0.000 Nucleated RBC % (auto) 0.0 Anion Gap 13 Estim Creat Clear Calc 55.5 Estimated GFR > 60 Random Glucose 107 Calcium 7.9 L Microbiology Microbiology Results: Microbiology 06/13/22 15:40 Blood Culture - Final Blood - Venous No growth after 5 days. Assessment and Plan (1) C. difficile diarrhea: Status: Acute Plan 71 year old femal with history of?F (atrial fibrillation) Chronic anticoagulation, Chronic kidney disease, AAA followed at [facility], GERD (gastroesophageal reflux disease), ? History of uterine cancer , HLD (hyperlipidemia), HTN (hypertension), COPD not on home O2, chronic indwelling abdi cath due to neurogenic bladder here with sob, abd pain, n/v, diarrhea. SOB, likely related? to COPD, presently no sob, normal O2 sat at baseline Pneumonia as seen on xray : WBC now normal, no sob. repeat CXR show improved PNA. On Ceftriaxone 06/16/22, Day 5, stop Diarrhea, + Cdif has rectal tube with persistent high output of diarrhea.?, dificid 06/13/22, GI to made further recommendation HypOkalemia--corrected with K in IVF ? Ileus on CT, exam pretty bening, no clinical evidence of obstruction, bening exam. Seen by surgery, no intervention needed Permanent AFIB--rate controlled on metoprolol and digoxin; and Xarelto for stroke prevention GERD PPI HLD--simvastatin elevated lfts, etiology unclear, follow level DVT prophy : Xarelto regular diet Need for inpatient: C dif with profuse diarrhea, need iV fluid to maintain hydration Time Spent With Patient Time: Total time managing care of this patient today ____ minutes. Quality Stroke Does the patient have a stroke diagnosis?: No VTE Prior VTE?: No VTE Risk Level:: Medical - moderate - high VTE Device Contraindication: Treatment Not Tolerated VTE Drug Contraindication: N/A - Med Ordered
[2022-06-20] MEDS: Dicyclomine HCl 10 MG CAPSULE PO ×2 (07:54→20:12)
[2022-06-20] MEDS: Digoxin 0.25 MG TABLET PO (07:54)
[2022-06-20] MEDS: Metoprolol Succinate ER 25 MG TAB.ER.24H PO ×2 (07:54→20:25)
[2022-06-20] MEDS: Ferrous Sulfate 324 MG TABLET.DR PO ×2 (07:55→20:12)
[2022-06-20] MEDS: Omeprazole 20 MG CAPSULE.DR PO (07:55)
[2022-06-20] MEDS: Ascorbic Acid 500 MG TABLET PO (07:55)
[2022-06-20] MEDS: Folic Acid 1 MG TABLET PO (07:55)
[2022-06-20] MEDS: 0.9 % Sodium Chloride Flush 3 ML SYRINGE IVFLUSH ×3 (07:57→20:12)
[2022-06-20 08:05] LABS: Alanine Aminotransferase 26 U/L (0-31); Albumin Level 2.5 g/dL (3.5-5.0); Alkaline Phosphatase 142 U/L (39-117); Aspartate Amino Transferase 9 U/L (5-31); Bilirubin Direct < 0.2 mg/dL (0.0-0.5); Bilirubin Total 0.2 mg/dL (0.0-1.0); Total Protein 5.1 g/dL (6.5-8.0)
[2022-06-20] MEDS: Fidaxomicin 200 MG TABLET PO ×2 (10:27→22:35)
[2022-06-20] MEDS: cefTRIAXone sodium 1 GM in 0.9 % Sodium Chloride 50 ML IV (10:27)
[2022-06-20 11:10] VITALS: RESP 18; O2SAT 97
--- NOTE | 2022-06-20 14:13 | MHC.CM.PN ---
Pt continues w/C.diff tx: has rectal tube: slow advancement of diet: IVF d/c'd. D/C plan is for a return to home w/[facility]. Family to transport.
[2022-06-20 15:29] VITALS: BP 158/85; PULSE 69; RESP 19; TEMP 36.8; O2SAT 98
[2022-06-20] MEDS: ondansetron HCL 4 MG/2 ML VIAL IVPUSH (15:56)
[2022-06-20] MEDS: Rivaroxaban 20 MG TABLET PO (16:18)
--- NOTE | 2022-06-20 17:21 | PC.NURSE ---
pt with emesis after eating half of dinner tray
--- NOTE | 2022-06-20 17:53 | PM.GIPN ---
Subjective Subjective Date of Service: 06/20/22 Interval History: improving less abdominl pain persistent diarrhea eating better wcc is going down Critical Care Time (minutes): 0 Physical Exam Vital Signs: Vital Signs: Last Vital Signs Temp 98.3 F 06/20/22 15:29 Pulse 69 06/20/22 15:29 Resp 19 06/20/22 15:29 BP 158/85 H 06/20/22 15:29 Pulse Ox 98 06/20/22 15:29 O2 Del Method Room Air 06/20/22 15:29 O2 Flow Rate 95 06/14/22 05:08 BMI result Body Mass Index 23.7 EXAM: GENERAL: The patient is well developed and nontoxic. VITAL SIGNS:see workflow HEENT: Nonicteric sclerae, PERRLA, EOMI. Oropharynx clear. Moist mucous membranes. Conjunctivae appear well perfused. No thyroid mass. CHEST: Chest wall is nontender. HEART: Regular rate and rhythm without murmurs. LUNGS: Clear to auscultation bilaterally. ABDOMEN: Soft, positive bowel sounds, nontender, no organomegaly.no flank tenderness SKIN: No rash, no excessive bruising, petechiae, or purpura. NEUROLOGIC: Cranial nerves II-XII intact without motor/sensory deficit. psych-nl affect Objective Data Labs 06/20/22 06:05 06/20/22 06:05 Labs: Laboratory Results - last 24 hr 06/20/22 06/20/22 06:05 06:05 WBC 10.9 H RBC 4.29 Hgb 12.5 Hct 37.8 MCV 88.1 MCH 29.1 MCHC 33.1 RDW 16.2 H Plt Count 288 MPV 9.0 L Absolute Nucleated RBC 0.000 Nucleated RBC % (auto) 0.0 Sodium 138 Potassium 4.6 Chloride 107 Carbon Dioxide 23 Anion Gap 13 BUN 12 Creatinine 0.79 Estim Creat Clear Calc 55.5 Estimated GFR > 60 Random Glucose 107 Calcium 7.9 L Total Bilirubin 0.2 Direct Bilirubin < 0.2 AST 9 ALT 26 Alkaline Phosphatase 142 H Total Protein 5.1 L Albumin 2.5 L Microbiology Microbiology Results: Microbiology 06/13/22 15:40 Blood - Venous Blood Culture - Final No growth after 5 days. 06/13/22 15:40 Blood - Venous Blood Culture - Final No growth after 5 days. Procedures Date of Service Date of Service: 06/20/22 Progress Note: A&P Assessment and plan (1) C. 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 Quality Stroke Does the patient have a stroke diagnosis?: No VTE Prior VTE?: No VTE Risk Level:: Medical - moderate - high VTE Device Contraindication: Treatment Not Tolerated VTE Drug Contraindication: N/A - Med Ordered
[2022-06-20 19:29] VITALS: BP 133/88; PULSE 80; RESP 17; TEMP 37; O2SAT 98
[2022-06-20] MEDS: Melatonin 3 MG TABLET PO (20:12)
[2022-06-20] MEDS: Atorvastatin Calcium 20 MG TABLET PO (20:26)
[2022-06-21 03:35] VITALS: BP 102/60; PULSE 61; RESP 16; TEMP 36.6; O2SAT 98
[2022-06-21 06:56] VITALS: BP 135/80; PULSE 61; RESP 18; TEMP 36.6; O2SAT 97
[2022-06-21] MEDS: Dicyclomine HCl 10 MG CAPSULE PO ×2 (07:30→21:23)
[2022-06-21] MEDS: Ascorbic Acid 500 MG TABLET PO (07:30)
[2022-06-21] MEDS: Metoprolol Succinate ER 25 MG TAB.ER.24H PO ×2 (07:30→21:23)
[2022-06-21] MEDS: Omeprazole 20 MG CAPSULE.DR PO (07:30)
[2022-06-21] MEDS: Folic Acid 1 MG TABLET PO (07:30)
[2022-06-21] MEDS: Digoxin 0.25 MG TABLET PO (07:31)
[2022-06-21] MEDS: Ferrous Sulfate 324 MG TABLET.DR PO ×2 (07:32→21:23)
[2022-06-21] MEDS: HYDROcodone Bit/Acetam 7.5/325 TABLET 1 TAB PO ×2 (07:37→15:52)
[2022-06-21 07:54] VITALS: PULSE 61; RESP 18
[2022-06-21] MEDS: Albuterol/Iprat 2.5/0.5MG 3 ML AMPUL.NEB INHALE ×2 (07:54→15:57)
[2022-06-21] MEDS: cefTRIAXone sodium 1 GM in 0.9 % Sodium Chloride 50 ML IV (09:32)
[2022-06-21] MEDS: 0.9 % Sodium Chloride Flush 3 ML SYRINGE IVFLUSH ×3 (09:32→23:00)
[2022-06-21] MEDS: Fidaxomicin 200 MG TABLET PO ×2 (10:22→22:58)
--- NOTE | 2022-06-21 12:45 | HO.PM.IMPN ---
Subjective Subjective Date of Service: 06/22/22 Interval History: f/u on cdif diarrhea, chronic copd Review of Systems Persistent diarrhea with some abdominal discomfort, tolerating regular diet Physical Exam Vital Signs: Vital Signs: Last Vital Signs Temp 98 F 06/21/22 06:56 Pulse 61 06/21/22 07:54 Resp 18 06/21/22 07:54 BP 135/80 06/21/22 06:56 Pulse Ox 97 06/21/22 06:56 O2 Del Method Room Air 06/21/22 06:56 O2 Flow Rate 95 06/14/22 05:08 BMI result Body Mass Index 23.7 General: AO X 3, no acute distress Resp:? CTA bilateral CVS: S1,S2,RRR GI: +BS, NT, no distention Skin: No rash Neuro:? motor grossly intact Psych: appropriate affect Objective Data Active Medications Acetaminophen (Acetaminophen Supp 650 Mg Supp.Rect) 650 mg [place] Q6H PRN PRN Reason: Pain, Mild (Pain Scale 1-3) Hydrocodone Bitart/Acetaminophen (Hydrocodone Bit/Acetam 7.5/325 Tablet) 1 tab PO Q6H PRN PRN Reason: severe pain Last Admin: 06/21/22 07:37 Dose: 1 tab Documented By: BRYAN Albuterol Sulfate (Albuterol Sulfate 90 Mcg 8 Gm Inhaler) 2 puff INHALE Q2H PRN PRN Reason: wheezing Albuterol/Ipratropium (Albuterol/Iprat 2.5/0.5mg 3 Ml Ampul.Neb) 3 ml INHALE RQ4H WHILE AWAKE [facility] Last Admin: 06/21/22 11:42 Dose: Not Given Documented By: DARIN Non-Admin Reason: Patient Refused Ascorbic Acid (Ascorbic Acid 500 Mg Tablet) 500 mg PO DAILY [facility] Last Admin: 06/21/22 07:30 Dose: 500 mg Documented By: BRYAN Atorvastatin Calcium (Atorvastatin Calcium 20 Mg Tablet) 20 mg PO BEDTIME [facility] Last Admin: 06/20/22 20:26 Dose: 20 mg Documented By: AMANDA Calcium Carbonate (Calcium Carbonate 500 Mg Tablet) 250 mg PO TID PRN PRN Reason: Heartburn Last Admin: 06/20/22 20:11 Dose: 250 mg Documented By: AMANDA Dicyclomine HCl (Dicyclomine Hcl 10 Mg Capsule) 10 mg PO BID [facility] Last Admin: 06/21/22 07:30 Dose: 10 mg Documented By: BRYAN Digoxin (Digoxin 0.25 Mg Tablet) 0.25 mg PO DAILY [facility] Last Admin: 06/21/22 07:31 Dose: 0.25 mg Documented By: BRYAN Ferrous Sulfate (Ferrous Sulfate 324 Mg Tablet.) 324 mg PO BID [facility] Last Admin: 06/21/22 07:32 Dose: 324 mg Documented By: BRYAN Fidaxomicin (Fidaxomicin 200 Mg Tablet) 200 mg PO Q12H [facility] Last Admin: 06/21/22 10:22 Dose: 200 mg Documented By: BRYAN Folic Acid (Folic Acid 1 Mg Tablet) 1 mg PO DAILY [facility] Last Admin: 06/21/22 07:30 Dose: 1 mg Documented By: BRYAN Ceftriaxone Sodium 1 gm/ (Sodium Chloride) 50 mls @ 100 mls/hr IV Q24H [facility] Last Infusion: 06/21/22 10:08 Dose: 0 mls/hr Documented By: BRYAN Melatonin (Melatonin 3 Mg Tablet) 3 mg PO BEDTIME PRN PRN Reason: Insomnia Last Admin: 06/20/22 20:12 Dose: 3 mg Documented By: AMANDA Metoprolol Succinate (Metoprolol Succinate Er 25 Mg Tab.Er.24h) 25 mg PO BID [facility]; Protocol Last Admin: 06/21/22 07:30 Dose: 25 mg Documented By: BRYAN Omeprazole (Omeprazole 20 Mg Capsule.) 20 mg PO DAILY [facility] Last Admin: 06/21/22 07:30 Dose: 20 mg Documented By: BRYAN Ondansetron HCl (Ondansetron Odt 4 Mg Tab.Rapdis) 4 mg TRANSLINGU Q6H PRN PRN Reason: nausea/vomiting Last Admin: 06/17/22 15:37 Dose: 4 mg Documented By: BRYAN Ondansetron HCl (Ondansetron Hcl 4 Mg/2 Ml Vial) 4 mg IVPUSH Q8H PRN PRN Reason: Nausea and Vomiting Last Admin: 06/20/22 15:56 Dose: 4 mg Documented By: BRYAN Pharmacy Consult (Consult Rx Perform Med Rec) 1 each MISCELLANE ONCE PRN PRN Reason: Consult order Prochlorperazine Maleate (Prochlorperazine Maleate 5 Mg Tablet) 5 mg PO BID PRN PRN Reason: for nausea/vomiting Last Admin: 06/15/22 05:25 Dose: 5 mg Documented By: LANNY Rivaroxaban (Rivaroxaban 20 Mg Tablet) 20 mg PO DAILY@1700 [facility] Last Admin: 06/20/22 16:18 Dose: 20 mg Documented By: BRYAN Sodium Chloride (0.9 % Sodium Chloride Flush 3 Ml Syringe) 3 ml IVFLUSH QSHIFT [facility] Last Admin: 06/21/22 09:32 Dose: 3 ml Documented By: BRYAN Labs 06/20/22 06:05 06/20/22 06:05 Assessment and Plan (1) C. difficile diarrhea: Status: Acute Plan 71 year old femal with history of?F (atrial fibrillation) Chronic anticoagulation, Chronic kidney disease, AAA followed at [facility], GERD (gastroesophageal reflux disease), ? History of uterine cancer , HLD (hyperlipidemia), HTN (hypertension), COPD not on home O2, chronic indwelling abdi cath due to neurogenic bladder here with sob, abd pain, n/v, diarrhea. SOB, likely related? to COPD, presently no sob, normal O2 sat at baseline Pneumonia as seen on xray : WBC now normal, no sob. repeat CXR show improved PNA. On Ceftriaxone 06/16/22, Day 5, stop Diarrhea, + Cdif : diarrahe seems to be improving, remove rectal tube , dificid 06/13/22, GI to made further recommendation-complete dificid course . HypOkalemia--corrected with K .improved. Permanent AFIB--rate controlled on metoprolol and digoxin; and Xarelto for stroke prevention GERD PPI HLD--simvastatin elevated lfts, etiology unclear, follow level DVT prophy : Xarelto regular diet Need for inpatient: C dif with profuse diarrhea-improving ,need removal rectal tube and moniter next 24 hours if no more diarrhae then plan dispo. Time Spent With Patient Time: Total time managing care of this patient today ____ minutes. Quality Stroke Does the patient have a stroke diagnosis?: No VTE Prior VTE?: No VTE Risk Level:: Medical - moderate - high VTE Device Contraindication: Treatment Not Tolerated VTE Drug Contraindication: N/A - Med Ordered
[2022-06-21 15:17] VITALS: BP 119/69; PULSE 62; RESP 20; TEMP 36.1; O2SAT 99
[2022-06-21 16:05] VITALS: PULSE 62; RESP 20
[2022-06-21] MEDS: Rivaroxaban 20 MG TABLET PO (16:25)
[2022-06-21 19:18] VITALS: BP 128/73; PULSE 67; RESP 18; TEMP 36.1; O2SAT 98
[2022-06-21] MEDS: Atorvastatin Calcium 20 MG TABLET PO (21:23)
[2022-06-22] MEDS: HYDROcodone Bit/Acetam 7.5/325 TABLET 1 TAB PO ×4 (03:26→23:19)
[2022-06-22 03:42] VITALS: BP 111/58; PULSE 63; RESP 16; TEMP 36.4; O2SAT 98
[2022-06-22 06:57] VITALS: BP 112/69; PULSE 60; RESP 16; TEMP 36.1; O2SAT 98
[2022-06-22] MEDS: Metoprolol Succinate ER 25 MG TAB.ER.24H PO ×2 (07:41→20:23)
[2022-06-22] MEDS: 0.9 % Sodium Chloride Flush 3 ML SYRINGE IVFLUSH ×3 (07:42→23:15)
[2022-06-22] MEDS: Ascorbic Acid 500 MG TABLET PO (07:42)
[2022-06-22] MEDS: Dicyclomine HCl 10 MG CAPSULE PO ×2 (07:42→20:23)
[2022-06-22] MEDS: Folic Acid 1 MG TABLET PO (07:42)
[2022-06-22] MEDS: Omeprazole 20 MG CAPSULE.DR PO (07:42)
[2022-06-22] MEDS: Ferrous Sulfate 324 MG TABLET.DR PO ×2 (07:42→20:23)
[2022-06-22] MEDS: Digoxin 0.25 MG TABLET PO (07:42)
[2022-06-22] MEDS: ondansetron HCL 4 MG/2 ML VIAL IVPUSH ×2 (09:14→18:07)
[2022-06-22] MEDS: cefTRIAXone sodium 1 GM in 0.9 % Sodium Chloride 50 ML IV (09:14)
[2022-06-22] MEDS: Albuterol/Iprat 2.5/0.5MG 3 ML AMPUL.NEB INHALE (10:18)
[2022-06-22 10:19] VITALS: PULSE 61; RESP 18; O2SAT 97
[2022-06-22] MEDS: Fidaxomicin 200 MG TABLET PO ×2 (11:31→23:15)
--- NOTE | 2022-06-22 12:12 | MHC.CM.PN ---
per rounds pt will be dcd tomorrow pt is active with [facility] will resum,e
--- NOTE | 2022-06-22 13:05 | PM.DS ---
DS: Providers Provider Date of Service: 06/24/22 Date of admission: 06/14/22 09:21 Primary care physician: Elena Jacobo NP Consults: 06/15/22 10:32 Consult to General Surgery Routine Consulting Provider: [facility] General Surgeons Reason for consultation: dilated loop, ileus vs bowel obstruction, vomitting Has provider been notified: No Attending physician on discharge: Cristobal Castillo Discharging clinician: Cristobal Castillo DS: Diagnosis Discharge Diagnosis (1) C. difficile diarrhea: Status: Acute DS: Summary Hospital Course Hospital Course: 71 y/o F with history of?F (atrial fibrillation) Chronic anticoagulation, Chronic kidney disease, AAA followed at [facility], GERD (gastroesophageal reflux disease), ? History of uterine cancer , HLD (hyperlipidemia), HTN (hypertension), COPD not on home O2, chronic indwelling abdi cath due to neurogenic bladder. She presented with sob, diarrhea, and abdominal pain.? Her shortness of breath has been an ongoing thing due to diarrhea, she has been having wet cough, no fever or chills. Additionally she has been having profuse diarrhea with no blood and that has been on going for weeks, in fact review of records from [facility] inidates that she may have been having this as far back as november 2021 and associated with some abdominal discomfort. Her apetite has been poor with some weight loss. She also has some associated nausea and vomitting. Diarrhea is so bad that a rectal tube is inserted with dark green liquid stook. Work up WBC 14, C dif , stool panel pending. Hopsiptal course : 71 y/o Fwith history of?F (atrial fibrillation) Chronic anticoagulation, Chronic kidney disease, AAA followed at [facility], GERD (gastroesophageal reflux disease), ? History of uterine cancer , HLD (hyperlipidemia), HTN (hypertension), COPD not on home O2, chronic indwelling abdi cath due to neurogenic bladder here with sob, abd pain, n/v, diarrhea- Patient started on IV antibiotics due to C diff diarrhea: Patient seems to be improved significantly with fidaxomicin. Going home with p.o. fidaxomicin. ? Ileus on CT, exam pretty bening,? no clinical evidence of obstruction, bening exam. Seen by surgery, no intervention needed. Patient passing bowels, eating fine, abdomen is benign. In addition patient initial shortness of breath was thought to be related to COPD and imaging showed possible pneumonia so patient was treated with p.o. antibiotics, completed the course of antibiotics for pneumonia. Please repeat chest imaging in 3-4 weeks to see resolution of pneumonia. Hypokalemia repleted and resolved. Plan: Please complete the course of antibiotics for cdiff. Please repeat chest imaging in 3-4 weeks to see resolution of pneumonia. Above management discussed with the patient in detail length , assessment and plan coordination time spent 50 minute. Time Spent with Patient Time attestation: Total time managing care of this patient today ____ minutes. Discharge coordination time: Greater than 30 minutes Quality: Safe Use of Opioids Does Pt have an Active Cancer Diagnosis on the Problem List?: No Quality: Stroke Does the patient have a stroke diagnosis?: No Physical Exam Vital Signs: Vital Signs: Last Vital Signs Temp 97 F 06/22/22 06:57 Pulse 61 06/22/22 10:19 Resp 18 06/22/22 10:19 BP 112/69 06/22/22 06:57 Pulse Ox 98 06/22/22 06:57 O2 Del Method Room Air 06/22/22 06:57 O2 Flow Rate 95 06/14/22 05:08 BMI result Body Mass Index 23.7 General: AO X 3, no acute distress Resp:? CTA bilateral CVS: S1,S2,RRR GI: +BS, NT, no distention,bs present. Skin: No rash Neuro:? motor grossly intact Psych: appropriate affect DS: Data Imaging Chest x-ray: Radiologist's impression: ITS Impressions Chest X-Ray 06/13/22 13:50 IMPRESSION: Airspace disease in the left upper lobe probably representing pneumonia. Abdomen/Pelvis CT 06/13/22 14:10 IMPRESSION: New small bowel dilatation with air-fluid levels of the low abdomen and pelvis. Findings may be related to an ileus versus partial or early small bowel obstruction. Postoperative changes. Infrarenal abdominal aortic aneurysm at 4.5 cm AP, slightly increased since previous evaluation. Follow-up every 6 months and vascular consultation recommended. Bladder catheterized. New patchy infiltrates and tree-in-bud opacities of the left lower lobe. Other incidental findings as described. Chest X-Ray 06/15/22 09:46 IMPRESSION: Slightly improved left upper lobe infiltrate. This wasn't Discharge Plan Discharge Anticipated Discharge Date/Time: 06/22/22 08:19 Patient Disposition: Home Health Service Discharge Diagnosis: pneumonia, cdiff Referrals: [facility] [Other] - 1 Week Elena Jacobo [employer]YMOLOG[employer] TEACHER [Primary Care Provider] - 2 days Discharge Medications: New Lactobacillus acidophilus 1 billion cell capsule 2,000 mmu cells PO DAILY Qty: 30 0RF acetaminophen [Athenol] 325 mg tablet 650 mg PO Q6H PRN (Reason: fever or pain) Qty: 20 0RF loperamide-simethicone [Imodium Multi-Symptom Relief] 2-125 mg tablet 1 tab PO Q3H PRN (Reason: loose stool) Qty: 10 0RF Rx Instructions: do not exceed 4 tabs in 24 hrs Continued metoprolol succinate 25 mg tablet extended release 24 hr 25 mg PO BID dicyclomine 10 mg capsule 10 mg PO BID Qty: 60 3RF digoxin 250 mcg (0.25 mg) tablet 250 mcg PO DAILY Qty: 90 3RF prochlorperazine maleate 5 mg tablet 5 mg PO BID PRN (Reason: for nausea/vomiting) Qty: 30 0RF lansoprazole 30 mg capsule,delayed release(DR/EC) 30 mg PO DAILY Qty: 90 3RF ipratropium-albuterol 0.5 mg-3 mg(2.5 mg base)/3 mL solution for nebulization 3 ml inhalation Q4-6H PRN (Reason: wheezing) hydrocodone-acetaminophen 7.5-325 mg tablet 1 tab PO Q6H PRN (Reason: severe pain) albuterol sulfate 90 mcg/actuation HFA aerosol inhaler 2 puff inhalation Q6H PRN (Reason: wheezing) ondansetron HCl 4 mg tablet 4 mg PO Q6H PRN (Reason: nausea/vomiting) Xarelto 20 mg tablet 20 mg PO DAILY@1700 ferrous sulfate 325 mg (65 mg iron) tablet 325 mg PO BID folic acid 1 mg tablet 1 mg PO DAILY ascorbic acid (vitamin C) 500 mg tablet 500 mg PO DAILY (DME) night bags See Rx Instructions .Route .MEDSUPPLY Qty: 1 11RF Rx Instructions: As directed- 1 catheter night bag per month (DME) catheter insertion kit See Rx Instructions .Route .MEDSUPPLY Qty: 2 11RF Rx Instructions: As directed- 2 kits per month (DME) abdi catheters 18 guamanian See Rx Instructions .Route .MEDSUPPLY Qty: 2 11RF Rx Instructions: As directed- 2 catheters per month (DME) catheter irrigation kit See Rx Instructions .Route .MEDSUPPLY Qty: 2 11RF Rx Instructions: As directed- 2 kits per month (DME) sterile water See Rx Instructions .Route .MEDSUPPLY Qty: 1 11RF Rx Instructions: As directed for abdi catheter irrigation (DME) leg bags See Rx Instructions .Route .MEDSUPPLY Qty: 2 11RF Rx Instructions: 2 catheter leg bags per month simvastatin 40 mg tablet 40 mg PO BEDTIME calcium carbonate [Tums] 200 mg calcium (500 mg) tablet,chewable 200 mg PO TID PRN (Reason: Heartburn) Discharge Orders: Discharge Order (Routine); Ordered 06/22/22 Ordered By: Cristobal Castillo Diet: Advance to usual diet Activity on Discharge: As tolerated Stand Alone Forms: Patient Portal Discharge page Care Plan Goals: Patient was admitted because of nausea vomiting and diarrhea: Found to have C diff started on fidaxomicin, seems improved, completed antibiotics. Eating well, diarrhea seems to be resolved. pneumonia : completed antibiotics , repeat chest imaging outpatiently in 3-4 weeks to see the resolution of pneumonia. Health Concerns: As above . Plan of Treatment: As above . Assessment: As above . Patient Instructions: A-fib (Atrial Fibrillation) (ED), Acute Diarrhea (ED), Community Acquired Pneumonia (ED) Discharge Date/Time: 06/24/22 11:29
--- NOTE | 2022-06-22 13:23 | P.PNIM_ITS ---
Subjective Subjective Date of Service: 06/23/22 Interval History: c diff diarrhae Review of Systems denies any chest pain or sob Diarrhea improved ,no abdominal pain She is refusing to go home today says she is not comfortable to go home yet Physical Exam Vital Signs: Vital Signs: Last Vital Signs Temp 97 F 06/22/22 06:57 Pulse 61 06/22/22 10:19 Resp 18 06/22/22 10:19 BP 112/69 06/22/22 06:57 Pulse Ox 98 06/22/22 06:57 O2 Del Method Room Air 06/22/22 06:57 O2 Flow Rate 95 06/14/22 05:08 BMI result Body Mass Index 23.7 General: AO X 3, no acute distress Resp:? CTA bilateral CVS: S1,S2,RRR GI: +BS, NT, no distention Skin: No rash Neuro:? motor grossly intact Psych: appropriate affect Objective Data Active Medications Acetaminophen (Acetaminophen Supp 650 Mg Supp.Rect) 650 mg MS Q6H PRN PRN Reason: Pain, Mild (Pain Scale 1-3) Hydrocodone Bitart/Acetaminophen (Hydrocodone Bit/Acetam 7.5/325 Tablet) 1 tab PO Q6H PRN PRN Reason: severe pain Last Admin: 06/22/22 09:13 Dose: 1 tab Documented By: MIGUEL A Albuterol Sulfate (Albuterol Sulfate 90 Mcg 8 Gm Inhaler) 2 puff INHALE Q2H PRN PRN Reason: wheezing Albuterol/Ipratropium (Albuterol/Iprat 2.5/0.5mg 3 Ml Ampul.Neb) 3 ml INHALE RQ4H WHILE AWAKE [facility] Last Admin: 06/22/22 10:18 Dose: 3 ml Documented By: GRICEL Ascorbic Acid (Ascorbic Acid 500 Mg Tablet) 500 mg PO DAILY [facility] Last Admin: 06/22/22 07:42 Dose: 500 mg Documented By: MIGUEL A Atorvastatin Calcium (Atorvastatin Calcium 20 Mg Tablet) 20 mg PO BEDTIME [facility] Last Admin: 06/21/22 21:23 Dose: 20 mg Documented By: GIA Calcium Carbonate (Calcium Carbonate 500 Mg Tablet) 250 mg PO TID PRN PRN Reason: Heartburn Last Admin: 06/20/22 20:11 Dose: 250 mg Documented By: AMANDA Dicyclomine HCl (Dicyclomine Hcl 10 Mg Capsule) 10 mg PO BID [facility] Last Admin: 06/22/22 07:42 Dose: 10 mg Documented By: MIGUEL A Digoxin (Digoxin 0.25 Mg Tablet) 0.25 mg PO DAILY [facility] Last Admin: 06/22/22 07:42 Dose: 0.25 mg Documented By: MIGUEL A Ferrous Sulfate (Ferrous Sulfate 324 Mg Tablet.) 324 mg PO BID [facility] Last Admin: 06/22/22 07:42 Dose: 324 mg Documented By: MIGUEL A Fidaxomicin (Fidaxomicin 200 Mg Tablet) 200 mg PO Q12H [facility] Last Admin: 06/22/22 11:31 Dose: 200 mg Documented By: MIGUEL A Folic Acid (Folic Acid 1 Mg Tablet) 1 mg PO DAILY [facility] Last Admin: 06/22/22 07:42 Dose: 1 mg Documented By: MIGUEL A Ceftriaxone Sodium 1 gm/ (Sodium Chloride) 50 mls @ 100 mls/hr IV Q24H [facility] Last Infusion: 06/22/22 10:19 Dose: 0 mls/hr Documented By: MIGUEL A Melatonin (Melatonin 3 Mg Tablet) 3 mg PO BEDTIME PRN PRN Reason: Insomnia Last Admin: 06/20/22 20:12 Dose: 3 mg Documented By: AMANDA Metoprolol Succinate (Metoprolol Succinate Er 25 Mg Tab.Er.24h) 25 mg PO BID [facility]; Protocol Last Admin: 06/22/22 07:41 Dose: 25 mg Documented By: MIGUEL A Omeprazole (Omeprazole 20 Mg Capsule.) 20 mg PO DAILY [facility] Last Admin: 06/22/22 07:42 Dose: 20 mg Documented By: MIGUEL A Ondansetron HCl (Ondansetron Odt 4 Mg Tab.Rapdis) 4 mg TRANSLINGU Q6H PRN PRN Reason: nausea/vomiting Last Admin: 06/17/22 15:37 Dose: 4 mg Documented By: BRYAN Ondansetron HCl (Ondansetron Hcl 4 Mg/2 Ml Vial) 4 mg IVPUSH Q8H PRN PRN Reason: Nausea and Vomiting Last Admin: 06/22/22 09:14 Dose: 4 mg Documented By: MIGUEL A Pharmacy Consult (Consult Rx Perform Med Rec) 1 each MISCELLANE ONCE PRN PRN Reason: Consult order Prochlorperazine Maleate (Prochlorperazine Maleate 5 Mg Tablet) 5 mg PO BID PRN PRN Reason: for nausea/vomiting Last Admin: 06/15/22 05:25 Dose: 5 mg Documented By: LANNY Rivaroxaban (Rivaroxaban 20 Mg Tablet) 20 mg PO DAILY@1700 [facility] Last Admin: 06/21/22 16:25 Dose: 20 mg Documented By: BRYAN Sodium Chloride (0.9 % Sodium Chloride Flush 3 Ml Syringe) 3 ml IVFLUSH QSHIFT [facility] Last Admin: 06/22/22 07:42 Dose: 3 ml Documented By: MIGUEL A Labs 06/20/22 06:05 06/20/22 06:05 Assessment and Plan (1) C. difficile diarrhea: Status: Acute Plan 71 year old femal with history of?F (atrial fibrillation) Chronic anticoagulation, Chronic kidney disease, AAA followed at [facility], GERD (gastroesophageal reflux disease), ? History of uterine cancer , HLD (hyperlipidemia), HTN (hypertension), COPD not on home O2, chronic indwelling abdi cath due to neurogenic bladder here with sob, abd pain, n/v, diarrhea. SOB, likely related? to COPD, presently no sob, normal O2 sat at baseline Pneumonia as seen on xray :? WBC now normal,? no sob.? repeat CXR show improved PNA. -completed ceftriaxone. ?Diarrhea, + Cdif : diarrahe seems to be improving, remove rectal tube ,? dificid 06/13/22, GI to made further recommendation-complete dificid course . HypOkalemia--corrected with K .improved. Permanent AFIB--rate controlled on metoprolol and digoxin; and Xarelto for stroke prevention ?GERD PPI ?HLD--simvastatin elevated lfts, etiology unclear, follow level DVT prophy : Xarelto regular diet Need for inpatient:? awaitin discharge -patient appealed discharge. Time Spent With Patient Time: Total time managing care of this patient today ____ minutes. Quality Stroke Does the patient have a stroke diagnosis?: No VTE Prior VTE?: No VTE Risk Level:: Medical - moderate - high VTE Device Contraindication: Treatment Not Tolerated VTE Drug Contraindication: N/A - Med Ordered
--- NOTE | 2022-06-22 13:43 | MHC.CM.PN ---
pt filed medicare appeal plan when dcd remains home
[2022-06-22 15:40] VITALS: BP 130/71; PULSE 63; RESP 18; TEMP 36.1; O2SAT 98
[2022-06-22] MEDS: Rivaroxaban 20 MG TABLET PO (16:19)
[2022-06-22 19:08] VITALS: BP 122/64; PULSE 68; RESP 18; TEMP 36.3; O2SAT 97
[2022-06-22] MEDS: Atorvastatin Calcium 20 MG TABLET PO (20:23)
[2022-06-23 04:00] VITALS: BP 111/66; PULSE 60; RESP 16; TEMP 36.5; O2SAT 97
[2022-06-23 07:56] VITALS: BP 125/78; PULSE 63; RESP 16; TEMP 36.6; O2SAT 99
[2022-06-23] MEDS: 0.9 % Sodium Chloride Flush 3 ML SYRINGE IVFLUSH ×3 (09:35→21:40)
[2022-06-23] MEDS: cefTRIAXone sodium 1 GM in 0.9 % Sodium Chloride 50 ML IV (09:35)
[2022-06-23] MEDS: Folic Acid 1 MG TABLET PO (09:35)
[2022-06-23] MEDS: Digoxin 0.25 MG TABLET PO (09:35)
[2022-06-23] MEDS: Dicyclomine HCl 10 MG CAPSULE PO ×2 (09:35→21:40)
[2022-06-23] MEDS: Ferrous Sulfate 324 MG TABLET.DR PO ×2 (09:36→21:40)
[2022-06-23] MEDS: Omeprazole 20 MG CAPSULE.DR PO (09:36)
[2022-06-23] MEDS: Ascorbic Acid 500 MG TABLET PO (09:36)
[2022-06-23] MEDS: Metoprolol Succinate ER 25 MG TAB.ER.24H PO ×2 (09:36→21:40)
[2022-06-23] MEDS: Fidaxomicin 200 MG TABLET PO ×2 (09:36→21:40)
[2022-06-23] MEDS: HYDROcodone Bit/Acetam 7.5/325 TABLET 1 TAB PO ×2 (09:46→17:21)
[2022-06-23] MEDS: Loperamide HCl 2 MG CAPSULE PO ×2 (11:02→17:45)
--- NOTE | 2022-06-23 13:45 | MHC.CM.PN ---
PT HAS LOST HER MEDICARE APPEAL. PLAN TO DC HOME TOMORROW AM BEFORE NOON, FAMILY WILL TRANSPORT. MADE AWARE. [facility] UPDATED. CM WILL CONTINUE TO FOLLOW
[2022-06-23 15:35] VITALS: BP 123/76; PULSE 66; RESP 20; TEMP 36.4; O2SAT 97
--- NOTE | 2022-06-23 15:39 | HO.PM.IMPN ---
Subjective Subjective Date of Service: 06/24/22 Interval History: cdiff diarrahe Review of Systems Diarrhea seems to be improved, no abdominal pain, no fever. She had wanted to episode of lose bowels after rectal tube removal. Physical Exam Vital Signs: Vital Signs: Last Vital Signs Temp 97.6 F 06/23/22 15:35 Pulse 66 06/23/22 15:35 Resp 20 06/23/22 15:35 BP 123/76 06/23/22 15:35 Pulse Ox 97 06/23/22 15:35 O2 Del Method Room Air 06/23/22 15:35 O2 Flow Rate 95 06/14/22 05:08 BMI result Body Mass Index 23.7 General: AO X 3, no acute distress Resp:? CTA bilateral CVS: S1,S2,RRR GI: +BS, NT, no distention Skin: No rash Neuro:? motor grossly intact Psych: appropriate affec Objective Data Active Medications Acetaminophen (Acetaminophen Supp 650 Mg Supp.Rect) 650 mg NC Q6H PRN PRN Reason: Pain, Mild (Pain Scale 1-3) Hydrocodone Bitart/Acetaminophen (Hydrocodone Bit/Acetam 7.5/325 Tablet) 1 tab PO Q6H PRN PRN Reason: severe pain Last Admin: 06/23/22 09:46 Dose: 1 tab Documented By: MIGUEL A Albuterol Sulfate (Albuterol Sulfate 90 Mcg 8 Gm Inhaler) 2 puff INHALE Q2H PRN PRN Reason: wheezing Ascorbic Acid (Ascorbic Acid 500 Mg Tablet) 500 mg PO DAILY [facility] Last Admin: 06/23/22 09:36 Dose: 500 mg Documented By: MIGUEL A Atorvastatin Calcium (Atorvastatin Calcium 20 Mg Tablet) 20 mg PO BEDTIME [facility] Last Admin: 06/22/22 20:23 Dose: 20 mg Documented By: CATHERINE Calcium Carbonate (Calcium Carbonate 500 Mg Tablet) 250 mg PO TID PRN PRN Reason: Heartburn Last Admin: 06/22/22 20:27 Dose: 250 mg Documented By: CATHERINE Dicyclomine HCl (Dicyclomine Hcl 10 Mg Capsule) 10 mg PO BID [facility] Last Admin: 06/23/22 09:35 Dose: 10 mg Documented By: MIGUEL A Digoxin (Digoxin 0.25 Mg Tablet) 0.25 mg PO DAILY [facility] Last Admin: 06/23/22 09:35 Dose: 0.25 mg Documented By: MIGUEL A Ferrous Sulfate (Ferrous Sulfate 324 Mg Tablet.) 324 mg PO BID [facility] Last Admin: 06/23/22 09:36 Dose: 324 mg Documented By: MIGUEL A Fidaxomicin (Fidaxomicin 200 Mg Tablet) 200 mg PO Q12H [facility] Last Admin: 06/23/22 09:36 Dose: 200 mg Documented By: MIGUEL A Folic Acid (Folic Acid 1 Mg Tablet) 1 mg PO DAILY [facility] Last Admin: 06/23/22 09:35 Dose: 1 mg Documented By: MIGUEL A Loperamide HCl (Loperamide Hcl 2 Mg Capsule) 2 mg PO Q4H PRN PRN Reason: Diarrhea Melatonin (Melatonin 3 Mg Tablet) 3 mg PO BEDTIME PRN PRN Reason: Insomnia Last Admin: 06/20/22 20:12 Dose: 3 mg Documented By: AMANDA Metoprolol Succinate (Metoprolol Succinate Er 25 Mg Tab.Er.24h) 25 mg PO BID [facility]; Protocol Last Admin: 06/23/22 09:36 Dose: 25 mg Documented By: MIGUEL A Omeprazole (Omeprazole 20 Mg Capsule.) 20 mg PO DAILY [facility] Last Admin: 06/23/22 09:36 Dose: 20 mg Documented By: MIGUEL A Ondansetron HCl (Ondansetron Odt 4 Mg Tab.Rapdis) 4 mg TRANSLINGU Q6H PRN PRN Reason: nausea/vomiting Last Admin: 06/17/22 15:37 Dose: 4 mg Documented By: BRYAN Ondansetron HCl (Ondansetron Hcl 4 Mg/2 Ml Vial) 4 mg IVPUSH Q8H PRN PRN Reason: Nausea and Vomiting Last Admin: 06/22/22 18:07 Dose: 4 mg Documented By: MIGUEL A Pharmacy Consult (Consult Rx Perform Med Rec) 1 each MISCELLANE ONCE PRN PRN Reason: Consult order Prochlorperazine Maleate (Prochlorperazine Maleate 5 Mg Tablet) 5 mg PO BID PRN PRN Reason: for nausea/vomiting Last Admin: 06/15/22 05:25 Dose: 5 mg Documented By: LANNY Rivaroxaban (Rivaroxaban 20 Mg Tablet) 20 mg PO DAILY@1700 [facility] Last Admin: 06/22/22 16:19 Dose: 20 mg Documented By: MIGUEL A Sodium Chloride (0.9 % Sodium Chloride Flush 3 Ml Syringe) 3 ml IVFLUSH QSHIFT [facility] Last Admin: 06/23/22 09:35 Dose: 3 ml Documented By: MIGUEL A Labs 06/20/22 06:05 06/20/22 06:05 Assessment and Plan (1) C. difficile diarrhea: Status: Acute Plan 71 year old femal with history of?F (atrial fibrillation) Chronic anticoagulation, Chronic kidney disease, AAA followed at [facility], GERD (gastroesophageal reflux disease), ? History of uterine cancer , HLD (hyperlipidemia), HTN (hypertension), COPD not on home O2, chronic indwelling abdi cath due to neurogenic bladder here with sob, abd pain, n/v, diarrhea. SOB, likely related? to COPD, presently no sob, normal O2 sat at baseline Pneumonia as seen on xray :? WBC now normal,? no sob.? repeat CXR show improved PNA. -completed ceftriaxone. ?Diarrhea, + Cdif : diarrahe seems to be improving, remove rectal tube ,? dificid 06/13/22, GI to made further recommendation-completed dificid course . HypOkalemia--corrected with K .improved. Permanent AFIB--rate controlled on metoprolol and digoxin; and Xarelto for stroke prevention ?GERD PPI ?HLD--simvastatin elevated lfts, etiology unclear, follow level DVT prophy : Xarelto regular diet Need for inpatient:? awaitin discharge -patient appealed discharge. Time Spent With Patient Time: Total time managing care of this patient today ____ minutes. Quality Stroke Does the patient have a stroke diagnosis?: No VTE Prior VTE?: No VTE Risk Level:: Medical - moderate - high VTE Device Contraindication: Treatment Not Tolerated VTE Drug Contraindication: N/A - Med Ordered
[2022-06-23] MEDS: Rivaroxaban 20 MG TABLET PO (17:22)
[2022-06-23] MEDS: Ondansetron ODT 4 MG TAB.RAPDIS TRANSLINGU (17:45)
[2022-06-23 20:00] VITALS: BP 143/76; PULSE 71; RESP 20; TEMP 37; O2SAT 98
[2022-06-23] MEDS: Atorvastatin Calcium 20 MG TABLET PO (21:40)
[2022-06-24 04:00] VITALS: BP 95/57; PULSE 62; RESP 16; TEMP 36.8; O2SAT 98
[2022-06-24 07:19] VITALS: BP 116/68; PULSE 60; RESP 20; TEMP 36.2; O2SAT 97
[2022-06-24] MEDS: Metoprolol Succinate ER 25 MG TAB.ER.24H PO (10:17)
[2022-06-24] MEDS: Ferrous Sulfate 324 MG TABLET.DR PO (10:18)
[2022-06-24] MEDS: Ascorbic Acid 500 MG TABLET PO (10:18)
[2022-06-24] MEDS: Omeprazole 20 MG CAPSULE.DR PO (10:18)
[2022-06-24] MEDS: Digoxin 0.25 MG TABLET PO (10:18)
[2022-06-24] MEDS: Dicyclomine HCl 10 MG CAPSULE PO (10:18)
[2022-06-24] MEDS: Fidaxomicin 200 MG TABLET PO (10:18)
[2022-06-24] MEDS: 0.9 % Sodium Chloride Flush 3 ML SYRINGE IVFLUSH (10:18)
[2022-06-24] MEDS: Folic Acid 1 MG TABLET PO (10:18)
[2022-06-24] MEDS: HYDROcodone Bit/Acetam 7.5/325 TABLET 1 TAB PO (10:22)
== END 2022-06-24 11:29 | disposition home health service (06) | DRG 371 ==
LOC: HO.ED 06-14 07:35 → HO.EDOVER 06-14 09:26 → HO.S3 06-14 12:26
PROVIDERS: Internal Medicine Gastroenterology; Physician Assistant Medical; Admitting Provider Internal Medicine; Emergency Provider Emergency Medicine; PCP Registered Nurse; Visit Provider Internal Medicine
DX: A04.72 Enterocolitis due to Clostridium difficile, not specified as recurrent (principal); J18.9 Pneumonia, unspecified organism; J44.0 Chronic obstructive pulmonary disease with (acute) lower respiratory infection; I48.21 Permanent atrial fibrillation; E46 Unspecified protein-calorie malnutrition; E78.5 Hyperlipidemia, unspecified; E87.6 Hypokalemia; N31.9 Neuromuscular dysfunction of bladder, unspecified; Z96.0 Presence of urogenital implants; I12.9 Hypertensive chronic kidney disease with stage 1 through stage 4 chronic kidney disease, or unspecified chronic kidney disease; N18.9 Chronic kidney disease, unspecified; Z68.23 Body mass index [BMI] 23.0-23.9, adult; H54.8 Legal blindness, as defined in USA; Z95.0 Presence of cardiac pacemaker; Z79.01 Long term (current) use of anticoagulants; Z79.899 Other long term (current) drug therapy
CPT/HCPCS: 36415; 71046; 74177; 80048; 80053; 80076; 81001; 83605; 83690; 83735; 83880; 85007; 85025; 85027; 86140; 87040; 87324; 87493; 87502; 87507; 87635; 93005; 94640; 97116; 97162; 97530; 99285; C1758; J0456; J0696; J2405; Q9967

== ENCOUNTER → 2022-07-26 12:53 | Outpatient (BNVA) | payer MEDICARE, SELFPAY | PROVIDERS: PCP Registered Nurse; Visit Provider Nurse Practitioner Family | DX: N31.9 Neuromuscular dysfunction of bladder, unspecified (principal); R33.9 Retention of urine, unspecified | CPT/HCPCS: 51702; 99212 ==

== ENCOUNTER 2022-07-27 14:05 | Outpatient (REF) | payer MEDICARE, SELFPAY ==
--- NOTE | ~2022-07-27 | XR_ITS ---
EXAMINATION: XR CHEST CLINICAL INFORMATION: Pneumonia COMPARISON: June 15, 2022 and studies dating back to December 31, 2020 TECHNIQUE: 2 views of the chest were obtained. FINDINGS: There has been significant improvement in left upper lobe airspace disease with some discoid scarring remaining. No acute parenchymal disease, pneumothorax, or pleural effusion identified. Heart normal size. No evidence of pulmonary edema. Dual-chamber pacemaker in place. XR/XR chest 2V IMPRESSION: Improved left upper lobe pneumonia with some residual linear scarring.
== END 2022-07-27 14:06 | disposition home or self-care (01) ==
LOC: HO.HMGCX 14:05
PROVIDERS: Absent Provider Nurse Practitioner Gerontology; PCP Internal Medicine; Visit Provider Internal Medicine
DX: J18.9 Pneumonia, unspecified organism (principal)
CPT/HCPCS: 71046; 87493

== ENCOUNTER 2022-08-22 12:09 | Outpatient (AMB) | payer MEDICARE, SELFPAY ==
--- NOTE | 2022-08-22 12:19 | MHC.OFFVIS ---
Intake Vital Signs 08/22/22 12:25 Height 5 ft 4 in Weight 112 lb BMI 19.2 BP 109/79 Blood Pressure Location Lt brachial Position Sitting Pulse 79 Intake Visit Reasons: Diarrhea Intake Note: Patient follow up for diarrhea. Patient cc: dark waterily diarrhea, abdominal pain, and some acid reflex. Skinning Machine Feeder Required: No Accompanied by: Self / Same As Patient Allergies No Known Allergies [No Known Allergies*] Allergy (Verified 08/22/22 12:19) HPI Diarrhea HPI Details RECAP--saw [facility] initially? 10/2018 ?ISSUES: ?1. Non-intractable vomiting with nausea, was? given reglan ?2. Poor nutrition, possibly attributed to amiodarone,? given creon and on boost,carnation ?3. diarrhea, was given carafate,? omeprazole switched to ranitidine ?4. chronic anemia, on xarelto,? multiple polyps on colonoscopy, reactive gastropathy ? TESTS: EGD/Colonoscopy--? 08/2018-- dudeonal tubular adenoma, multiple colon? polyps ?EGD/colonoscopy-02/13/19-several sessile polyps from colon removed, no? further upper gi polyps, barretts? esophagus colonoscopy 05/2022-- multiple polyps removed incl one with area of LGD ? LABS:? 09/2018 ?C diff is negative, H pylori is negative, stool for white? blood cells is negative, alk-phos is elevated at 129 but the remainder of the? liver panel is normal renal panel somewhat improved with a GFR 54 (last? measurement was 45), CBC is unremarkable ? IMAGING: ??CT abdomen? and pelvis 09/2018 ?IMPRESSION: ?1. Fusiform infrarenal? abdominal aortic aneurysm 3.9 x 3.9 cm. ?2. Distended urinary bladder,? 12.3 cm in vertical dimension. No ?hydronephrosis or hydroureter.?3. No bowel obstruction or inflammatory changes in abdomen or pelvis.? she came to ED 12/2020 with severe pneumonia and melena, was transferred to [facility] in [place] due to bed situation in [facility], very deconditioned now INTERIM: she was admitted with c diff few months ago treated with difcid still having post prandial diarrhea, usu can last an hour or two, takes pepto or imodium prn variable results she is not sure if porbiotics help, unsure if ABx helped in past chronic back and periumbilical pain nausea sometimes taking oxycodoen daily, most days genetics testing neg for polyposis syndromes EXAM: GENERAL: The patient is frail VITAL SIGNS:see workflow HEENT: Nonicteric sclerae, PERRLA, EOMI. Oropharynx clear. Moist mucous membranes. Conjunctivae appear well perfused. No thyroid mass. CHEST: Chest wall is nontender. HEART: Regular rate and rhythm without murmurs. LUNGS: Clear to auscultation bilaterally. ABDOMEN: Soft, positive bowel sounds, nontender, no organomegaly.no flank tenderness SKIN: No rash, no excessive bruising, petechiae, or purpura. NEUROLOGIC: Cranial nerves II-XII intact without motor/sensory deficit. A/P: 1/ Episodic diarrhea with nausea maybe due to altered microbiome and SIBO or hyper acidity complicated by c diff with ongoing sx persisting now. 2/ Hx of colonic polyps PLAN: 1/ Trial of bile acid binding medication, if ongoing diarrhea then recheck c diff 2/ repeat colonoscopy in 3-6 months from now [facility] Medical History Cardiac pacemaker in situ COPD (chronic obstructive pulmonary disease) Dyspnea on exertion Exercise hypoxemia GERD (gastroesophageal reflux disease) HTN (hypertension) Hypertension Legally blind On beta mayra at home Persistent atrial fibrillation Pneumonia Retention, urine Sick sinus syndrome Surgical History History of cardioversion History of endoscopy History of esophagogastroduodenoscopy (EGD) History of radiofrequency ablation (RFA) for complex left atrial arrhythmia Hx of cardiac pacemaker Hx of colonoscopy Hx of hysterectomy Family History Father CHF (congestive heart failure) Cancer Pacemaker Mother Emphysema lung Social History Household Members: Spouse Housing: House Do you presently have visiting nurse or other home services: Yes Unable to assess alcohol history related to: Unknown Alcohol intake: never Patient Tobacco Use Status: Former Tobacco user Quit Date: 30 years ago Advance Directives Date on File: 06/13/22 service: No Assessment & Plan Assessment & Plan (1) C. difficile diarrhea: Code(s): A04.72 - Enterocolitis due to Clostridium difficile, not specified as recurrent (2) Colon polyposis: Code(s): K63.5 - Polyp of colon Medications: New colesevelam 1,250 mg (2 x 625 mg) PO BID 120 tabs 1RF Discontinued rivaroxaban 20 mg PO QPM 90 tabs 1RF I48.19 - Other persistent atrial fibrillation Coding Level of Care Code Est Pt Level 3 (19347) Diagnoses C. difficile diarrhea A04.72 Colon polyposis K63.5
[2022-08-22 12:25] VITALS: BP 109/79; PULSE 79; BMI 19.2
== END 2022-08-22 12:36 | disposition home or self-care (01) ==
PROVIDERS: PCP Internal Medicine; Visit Provider Internal Medicine Gastroenterology
DX: A04.72 Enterocolitis due to Clostridium difficile, not specified as recurrent (principal); K63.5 Polyp of colon
CPT/HCPCS: 99213

== ENCOUNTER → 2022-08-22 12:09 | Outpatient (BNVA) | payer MEDICARE, SELFPAY | PROVIDERS: PCP Internal Medicine; Visit Provider Internal Medicine Gastroenterology | DX: A04.72 Enterocolitis due to Clostridium difficile, not specified as recurrent (principal); K63.5 Polyp of colon | CPT/HCPCS: 99212 ==

== ENCOUNTER 2022-08-24 11:05 | Outpatient (REF) | payer MEDICARE, SELFPAY ==
[2022-08-24 13:47] LABS: Potassium 4.8 mmol/L (3.3-5.1)
[2022-08-26 16:48] LABS: Immunoglobulin A 86 mg/dL (70-320)
[2022-08-26 21:19] LABS: Transglutaminase Ab IgG 1.1 U/mL; Transglutaminase IgA <1.0 U/mL
[2022-09-01 03:33] LABS: Vitamin A 68 mcg/dL (38-98)
== END 2022-08-24 11:06 | disposition home or self-care (01) ==
LOC: HO.HMGCLDS 11:05
PROVIDERS: Internal Medicine Gastroenterology; PCP Internal Medicine; Visit Provider Internal Medicine Gastroenterology
DX: E46 Unspecified protein-calorie malnutrition (principal); R19.7 Diarrhea, unspecified
CPT/HCPCS: 36415; 82784; 84132; 84590; 86364

== ENCOUNTER → 2022-09-23 23:59 | Outpatient (BNV) | payer MEDICARE, SELFPAY ==
--- NOTE | 2022-09-28 09:53 | MHC.OFFVIS ---
Intake Intake Visit Reasons: Remote device check- [employer] Allergies No Known Allergies [No Known Allergies*] Allergy (Verified 08/22/22 12:19) PFS Medical History Cardiac pacemaker in situ COPD (chronic obstructive pulmonary disease) Dyspnea on exertion Exercise hypoxemia GERD (gastroesophageal reflux disease) HTN (hypertension) Hypertension Legally blind On beta mayra at home Persistent atrial fibrillation Pneumonia Retention, urine Sick sinus syndrome Surgical History History of cardioversion History of endoscopy History of esophagogastroduodenoscopy (EGD) History of radiofrequency ablation (RFA) for complex left atrial arrhythmia Hx of cardiac pacemaker Hx of colonoscopy Hx of hysterectomy Family History Father CHF (congestive heart failure) Cancer Pacemaker Mother Emphysema lung Social History Household Members: Spouse Housing: House Do you presently have visiting nurse or other home services: Yes Unable to assess alcohol history related to: Unknown Alcohol intake: never Patient Tobacco Use Status: Former Tobacco user Quit Date: 30 years ago Advance Directives Date on File: 06/13/22 service: No Office Procedures Cardiac Device Check Cardiac Device Check Details: Remote pacemaker report generated 09/23/2022. Chronic atrial fibrillation noted. Pacemaker function is okay [id number] Cardiac Device Interrogation, pacemaker Procedure code (CPT) selection complete Assessment & Plan Assessment & Plan Medications: Discontinued rivaroxaban 20 mg PO QPM 90 tabs 1RF I48.19 - Other persistent atrial fibrillation Coding Level of Care Code Procedure Only Diagnoses CPT Codes Cardiac Device Check - Cardiac Device 12: [id number] Cardiac Device Interrogation, pacemaker ([id number])
== END ==
PROVIDERS: PCP Internal Medicine; Visit Provider Internal Medicine Cardiovascular Disease
DX: I48.21 Permanent atrial fibrillation (principal); Z95.0 Presence of cardiac pacemaker
CPT/HCPCS: 93294

== ENCOUNTER 2022-09-29 10:45 | Outpatient (REF) | payer MEDICARE, SELFPAY ==
--- NOTE | ~2022-09-29 | XR_ITS ---
Examination: KUB and chest. CLINICAL INDICATION: Pneumonia, nausea, vomiting and distention. Rule out subacute obstruction. COMPARISON: Chest 07/27/[address] abdomen and pelvis IV contrast 06/13/2022. TECHNIQUE: Chest 2 views and abdomen one view. FINDINGS: Chest: The lungs are fairly well-expanded and clear of acute pneumonic process. No pneumonia seen at this time. Heart size and the great vessels are normal caliber. There are dual pacer electrodes in right atrium and right ventricle. No gross bony abnormality seen. ABDOMEN: There is moderate scattered stool seen in colon without distention. The small bowel loops are normal caliber. No radiopaque calculi seen. There are surgical lexis in bilateral iliac and right lower retroperitoneum regions from previous intervention. No gross bony abnormality. XR/XR chest 2V IMPRESSION: No acute intracranial process seen Moderate constipation. Surgical lexis in bilateral iliac regions and lower right retroperitoneum likely previous intervention
--- NOTE | ~2022-09-29 | XR_ITS ---
Examination: KUB and chest. CLINICAL INDICATION: Pneumonia, nausea, vomiting and distention. Rule out subacute obstruction. COMPARISON: Chest 07/27/[address] abdomen and pelvis IV contrast 06/13/2022. TECHNIQUE: Chest 2 views and abdomen one view. FINDINGS: Chest: The lungs are fairly well-expanded and clear of acute pneumonic process. No pneumonia seen at this time. Heart size and the great vessels are normal caliber. There are dual pacer electrodes in right atrium and right ventricle. No gross bony abnormality seen. ABDOMEN: There is moderate scattered stool seen in colon without distention. The small bowel loops are normal caliber. No radiopaque calculi seen. There are surgical lexis in bilateral iliac and right lower retroperitoneum regions from previous intervention. No gross bony abnormality. XR/XR KUB IMPRESSION: No acute intracranial process seen Moderate constipation. Surgical lexis in bilateral iliac regions and lower right retroperitoneum likely previous intervention
== END 2022-09-29 10:46 | disposition home or self-care (01) ==
LOC: HO.HMGCX 10:45
PROVIDERS: PCP Internal Medicine; Visit Provider Internal Medicine Gastroenterology
DX: R11.2 Nausea with vomiting, unspecified (principal); J18.9 Pneumonia, unspecified organism
CPT/HCPCS: 71046; 74018

== ENCOUNTER 2022-10-02 16:02 | Inpatient (IN) | payer MEDICARE, OTHER, SELFPAY ==
--- NOTE | ~2022-10-02 | CT_ITS ---
EXAMINATION: CT ABDOMEN AND PELVIS WITHOUT CONTRAST CLINICAL INFORMATION: Abdominal pain COMPARISON: 06/13/2022 TECHNIQUE: Multidetector volumetric imaging was performed from the superior aspect of the liver through the pubic symphysis. Sagittal and coronal reformatted images were obtained on the technologist's workstation. This CT examination was performed using dose optimization techniques as appropriate, variously including the following: *Automated exposure control *Adjustment of mA and/or kV according to patient size (this includes techniques or standardized protocols for targeted exams where dose is matched to indication/reason for exam; i.e. extremities or head) *Use of iterative reconstruction technique DLP: 267 mGy-cm FINDINGS: LUNG BASES: The visualized lung bases are unremarkable. LIVER, GALLBLADDER, AND BILIARY TREE: The liver is normal in size, shape, and attenuation. No focal hepatic lesion or biliary ductal dilatation is present. The gallbladder is unremarkable with no evidence of radiopaque gallstones, gallbladder wall thickening, or obvious pericholecystic inflammatory changes. PANCREAS: Unremarkable. SPLEEN: Unremarkable. ADRENAL GLANDS: Unremarkable. KIDNEYS AND URETERS: The kidneys are normal in size, shape, and attenuation. No hydronephrosis, hydroureter, or calculi seen. No perinephric stranding. BLADDER: Cadet catheter is in place with a large amount of air within the urinary bladder. GASTROINTESTINAL TRACT: The small and large bowel are unremarkable. Large amount retained stool seen within the colon likely representing underlying constipation. The appendix is not well visualized. No secondary signs of acute appendicitis. ABDOMINAL WALL: No significant hernia is appreciated. LYMPH NODES: Normal. VASCULAR: Fusiform infrarenal abdominal aortic aneurysm with a maximum diameter 4.5 cm which is stable compared to the prior exam. Further evaluation is limited due to lack of IV contrast. Scattered atherosclerotic wall calcification seen in the abdominal aorta and iliac arteries. PELVIC VISCERA: Status post hysterectomy. No adnexal mass lesion seen. OSSEOUS STRUCTURES: Degenerative disc disease and posterior facet joint arthropathy is seen in the lumbar spine. CT/CT abdomen pelvis wo IV con IMPRESSION: 1. No acute inflammatory or infectious process. 2. Constipation. 3. Fusiform infrarenal abdominal aortic aneurysm with a maximum diameter 4.5 cm. This is stable compared to the prior exam. Further evaluation is limited due to lack of IV contrast. Recommend followup every 6 months and vascular specialist consultation. Reference: J Am Jeaneth Radiol 2013; 10 (10): 789-794.
--- NOTE | ~2022-10-02 | XR_ITS ---
EXAMINATION: XR CHEST CLINICAL INFORMATION: Shortness of breath COMPARISON: 09/29/2022 TECHNIQUE: 2 views of the chest were obtained. FINDINGS: Arch is normal in size. Dual-lead pacemaker is in stable position. There is hyperexpansion of the lung parenchyma. No developing infiltrates or pleural effusions. XR/XR chest 2V IMPRESSION: No acute process.
[2022-10-02 16:08] VITALS: BP 94/63; PULSE 104; RESP 18; TEMP 36.5; O2SAT 99; BMI 19.0
--- NOTE | 2022-10-02 16:08 | ED_ITS ---
HPI - General Adult General Chief complaint: Abdominal Pain Stated complaint: difficulty breathing/not eating/taking meds Time Seen by Provider: 10/02/22 16:34 Source: patient and family (Son) Mode of arrival: ambulatory Limitations: no limitations History of Present Illness HPI narrative: A 71-year-old female with history of atrial fibrillation on chronic ACT, CKD, AAA followed at [facility], GERD, uterine cancer, HLD, HTN, COPD not on supplemental O2. Neurogenic bladder and urinary retention with longstanding indwelling Abdi catheter. Presented today with symptoms lower abdominal pain, nausea, vomiting, decreased p.o. intake, generalized weakness. No bleeding in the urine or stool or in the vomit. Initial EKG is showing EKG changes concern of ischemic change with rapid atrial fibrillation patient decl ined chest pain just complaining of shortness of breath. The chronic indwelling Abdi catheter was last changed few months ago as per patient will consider changing Abdi catheter today. Patient did not take her anticoagulation therapy today last dose was 2 days ago. Related Data Home Medications Medication Instructions Recorded Confirmed ferrous sulfate 325 mg (65 mg 325 mg PO BID 04/07/20 06/13/22 iron) tablet folic acid 1 mg tablet 1 mg PO DAILY 04/07/20 06/13/22 calcium carbonate 200 mg calcium 200 mg PO TID PRN Heartburn 02/10/21 06/13/22 (500 mg) chewable tablet (Tums) simvastatin 40 mg tablet 40 mg PO BEDTIME 02/10/21 06/13/22 ascorbic acid (vitamin C) 500 mg 500 mg PO DAILY 03/31/21 06/13/22 tablet metoprolol succinate 25 mg 25 mg PO BID 12/24/21 06/13/22 tablet,extended release 24 hr albuterol sulfate 90 mcg/actuation 2 puff inhalation Q6H PRN wheezing 05/12/22 06/13/22 aerosol inhaler hydrocodone 7.5 mg-acetaminophen 1 tab PO Q6H PRN severe pain 05/12/22 06/13/22 325 mg tablet ipratropium 0.5 mg-albuterol 3 mg 3 ml inhalation Q4-6H PRN wheezing 05/12/22 06/13/22 (2.5 mg base)/3 mL nebulization soln rivaroxaban 20 mg tablet (Xarelto) 20 mg PO DAILY@1700 06/13/22 06/13/22 Lactobacillus acidophilus 0.5 mg 0.5 mg PO DAILY 07/26/22 (100 million cell) tablet Previous Rx's Medication Instructions Recorded catheter insertion kit #2 ea 01/25/22 catheter irrigation kit #2 ea 01/25/22 abdi catheters #2 ea 01/25/22 leg bags #2 ea 01/25/22 night bags #1 ea 01/25/22 sterile water #1 ea 01/25/22 digoxin 250 mcg (0.25 mg) tablet 250 mcg PO DAILY #90 tabs 04/18/22 lansoprazole 30 mg capsule,delayed 30 mg PO DAILY #90 caps 06/08/22 release Lactobacillus acidophilus 1 2,000 mmu cells PO DAILY #30 caps 06/13/22 billion cell capsule acetaminophen 325 mg tablet 650 mg PO Q6H PRN fever or pain 06/24/22 (Athenol) #20 tabs loperamide-simethicone 2 mg-125 mg 1 tab PO Q3H PRN loose stool #10 06/24/22 tablet (Imodium Multi-Symptom tabs Relief) dicyclomine 10 mg capsule 10 mg PO BID 90 days #180 caps 07/25/22 colesevelam 625 mg tablet 1,250 mg PO BID #120 tabs 08/22/22 ondansetron HCl 4 mg tablet 4 mg PO Q6H PRN for 08/23/22 nausea/vomiting #60 tabs sodium,potassium,mag sulfates 17.5 See Rx Instructions PO .COMPLEX 08/31/22 gram-3.13 gram-1.6 gram oral soln #354 mL (Suprep Bowel Prep Kit) sulfamethoxazole 800 1 tab PO .COMPLEX 30 days #30 tabs 09/02/22 mg-trimethoprim 160 mg tablet (Bactrim DS) prochlorperazine maleate 5 mg 5 mg PO Q12H PRN for 09/19/22 tablet nausea/vomiting #30 tabs Allergies Allergy/AdvReac Type Severity Reaction Status Date / Time No Known Allergies Allergy Verified 10/02/22 16:16 [No Known Allergies*] Review of Systems Review of Systems: All other systems are reviewed and are negative Constitutional: Reports as per HPI and Reports no additional constitutional complaints Eyes: Reports as per HPI and Reports no additional eye complaints Reports system reviewed and no additional complaints, except as documented Cardiovascular: Reports as per HPI and Reports no additional cardiovascular comp laints Respiratory: Reports as per HPI and Reports no additional respiratory complaints Gastrointestinal: Reports as per HPI and Reports no additional gastrointestinal complaints Genitourinary: Reports no additional female genitourinary complaints Musculoskeletal: Reports no additional musculoskeletal complaints Skin/Breast: Reports system reviewed and no additional complaints, except as docu Psychiatric: Reports no additional psychiatric complaints Endocrine: Reports no additional endocrine complaints Hematologic/Lymphatic: Reports no additional hematologic/lymphatic complaints Allergic/Immunologic: Reports no additional allergic/immunologic complaints Reports system reviewed and no additional complaints, except as documented and Reports Abnormal speech present [facility] Past Medical History Medical History Cardiac pacemaker in situ COPD (chronic obstructive pulmonary disease) Dyspnea on exertion Exercise hypoxemia GERD (gastroesophageal reflux disease) HTN (hypertension) Hypertension Legally blind On beta mayra at home Persistent atrial fibrillation Pneumonia Retention, urine Sick sinus syndrome Surgical History History of cardioversion History of endoscopy History of esophagogastroduodenoscopy (EGD) History of radiofrequency ablation (RFA) for complex left atrial arrhythmia Hx of cardiac pacemaker Hx of colonoscopy Hx of hysterectomy Family History Family History Father CHF (congestive heart failure) Cancer Pacemaker Mother Emphysema lung Social History Social History Household Members: Spouse Housing: House Do you presently have visiting nurse or other home services: Yes Unable to assess alcohol history related to: Unknown Alcohol intake: former Patient Tobacco Use Status: Former Tobacco user Quit Date: 30 years ago Smoked in Last 30 Days: No Use of substances other than those prescribed or required for medical reasons: No Advance Directives: Yes Advance Directives on File: Yes Advance Directives Date on File: 07/26/22 service: No Physical Exam ED Vital Signs: Vital Signs - 24 hr 10/02/22 16:08 10/02/22 16:35 10/02/22 17:29 Temperature 97.7 F 97.4 F Pulse Rate 104 H 100 109 H Respiratory Rate 18 18 16 Blood Pressure 94/63 103/72 113/83 Pulse Oximetry 99 96 98 Oxygen Delivery Method Room Air Room Air Room Air BMI result Body Mass Index 19.4 Vital signs have been reviewed as appeared to be correct. Blood pressure normal. Heart rate normal. Respiration rate normal. Temperature normal. Oxygen saturation normal. Appearance: Alert. Oriented X3. No acute distress. Head: Normal external exam. Normocephalic. Atraumatic. No [place] signs noted. No raccoon eyes noted Eyes: PERRLA. EOMI. Conjunctiva and sclera normal. Eyelids normal. ENT: TM's Normal. Pharynx normal. Uvula midline. Moist mucous membranes. No trismus noted. No drooling noted. No muffled voice noted. Neck: Normal inspection. Neck supple. FROM. No adenopathy. Thyroid Normal. No meningeal signs. No neck mass noted. CVS: Normal heart rate and rhythm. Heart sound normal. No murmurs noted. Pulses normal throughout. Respiratory: No respiratory distress. Painless inspiration. Breath sounds normal. No wheezes/rales/rhonchi noted. Chest nontender. No accessory muscle usage noted or decreased air movement noted. Abdomen: Soft and nontender. Bowel sounds normal in all 4 quadrants. No distention noted. No organomegaly noted. No visible injury noted. Back: No CVA tenderness. Full range of motion noted. Skin: Skin warm and dry. Normal skin color. Normal skin turgor. No rashes/lesions/lacerations noted. Extremities: No lower extremity edema. Extremities exhibit normal range of motion. Extremities nontender. Neuro: Oriented X 3. Cranial nerve exam: II-XII are grossly intact No motor deficit. No sensory deficit. Reflexes normal. Course Course Course Narrative: This is an RME: Additional HPI, ROS, PE not included below will be deferred to primary provider. Patient is a 71-year-old female who presents to the emergency department with multiple complaints. Reporting 2 days with decreased appetite, poor PO intake, nausea/ vomiting, lower ABD pain, lower back pain, shortness of breath while at rest, weakness. Has not been taking medications. Denies dysuria, hematuria, diarrhea, chest pain. Noted to be mildly tachycardic, hypotensive. Plan: labs, U/A, EKG, CXR, Spoke with media sales consultant, patient to be moved back to room. Reevaluation(s) Reevaluation #1: 1. Non STEMI with no chest pain will treat with heparin (last Eliquis dose was 2 days ago)., atorvastatin, beta mayra, aspirin. 2. Chronic indwelling Abdi catheter with UTI, patient do not meet criteria for sepsis, however patient with lactic acidosis likely due to COPD, or non STEMI. Abdi catheter was changed today 10/02/2022 in the emergency room with no complication. Time: 18:29 Medical Decision Making Differential Diagnosis Differential Diagnoses: The differential diagnosis associated with the presentation includes (ACS, CHF, pneumonia, pneumothorax, electrolyte abnormality, severe anemia, UTI, severe sepsis, lactic acidosis.) Admission/Observation Consideration of admission/observation: Escalation of care including admission/observation considered Consult Healthcare Provider Management of the patient was discussed with: Hospitalist (Dr. Wren) and Microstrategy Reports Developer (Dr. Leyva) Lab Data MDM Lab Attestation statement: I reviewed the patient's lab results. 10/02/22 17:01 10/02/22 17:01 Labs: Lab Results 10/02/22 10/02/22 10/02/22 Range/Units 17:01 17:01 17:01 WBC 10.2 (4.8-10.8) X10*3/uL RBC 5.58 H D (4.20-5.50) X10*6/uL Hgb 16.5 H D (12.0-16.0) g/dl Hct 49.9 H D (37.0-47.0) % MCV 89.4 (80.0-98.0) fL MCH 29.6 (27.0-33.0) pg MCHC 33.1 (31.0-35.0) g/dl RDW 15.7 (11.0-16.0) % Plt Count 266 (160-400) X10*3/uL MPV 10.1 (9.4-12.3) fL Immature Gran % (Auto) 0.6 H (0.0-0.4) % Neut % (Auto) 75.7 H (45-73) % Lymph % (Auto) 17.2 L (20-40) % [place] % (Auto) 5.7 (2-11) % Eos % (Auto) 0.2 (0-4) % Baso % (Auto) 0.6 (0-2) % Lymph # (Auto) 1.8 (1.2-4.9) X10*3/uL [place] # (Auto) 0.6 (0.1-1.2) X10*3/uL Eos # (Auto) 0.0 (0.0-0.4) X10*3/uL Baso # (Auto) 0.1 (0.0-0.2) X10*3/uL Abs Immat Gran (auto) 0.06 H (0.00-0.03) X10*3/uL Absolute Neuts (auto) 7.7 (2.0-8.3) x10*3/uL Absolute Nucleated RBC 0.000 (0.0-0.012) X10*3/uL Nucleated RBC % (auto) 0.0 (0.0-0.2) /100WBC PT 12.6 (11.1-13.3) SEC INR 1.0 (0.9-1.1) Sodium 140 (135-145) mmol/L Potassium 4.2 (3.3-5.1) mmol/L Chloride 105 (96-108) mmol/L Carbon Dioxide 18 L (22-29) mmol/L Anion Gap 21 H (12-20) BUN 38 H (9-16) mg/dL Creatinine 0.82 (0.5-1.4) mg/dL Estim Creat Clear Calc 46.2 Estimated GFR > 60 Random Glucose 111 (60-115) mg/dL Lactic Acid (0.5-2.0) mmol/L Calcium 10.1 D (8.4-10.2) mg/dL Magnesium 2.2 (1.6-2.6) mg/dL Total Bilirubin 0.3 (0.0-1.0) mg/dL AST 15 (5-31) U/L ALT 8 (0-31) U/L Alkaline Phosphatase 76 (39-117) U/L Troponin I High Sens (<3.5-17.0) ng/L B-Natriuretic Peptide (<100) pg/mL Total Protein 6.9 (6.5-8.0) g/dL Albumin 3.6 (3.5-5.0) g/dL Lipase 13 (8-78) U/L Urine Color Urine Appearance Urine pH (5.0-9.0) Ur Specific [place] (1.005-1.025) Urine Protein (Neg-Trace) mg/dL Urine Glucose (UA) (Negative) mg/dL Urine Ketones (Negative) mg/dL Urine Blood (Negative) Urine Nitrite (Negative) Ur Leukocyte Esterase (Negative) Urine RBC (0-2) /HPF Urine WBC (0-5) /HPF Ur Squamous Epith Cells (0-2) /HPF Urine Bacteria (None Seen) Hyaline Casts (0-2) /LPF COVID-19 (ELO) (Negative) COVID-19 Clin Com 10/02/22 10/02/22 10/02/22 Range/Units 17:01 17:01 17:02 WBC (4.8-10.8) X10*3/uL RBC (4.20-5.50) X10*6/uL Hgb (12.0-16.0) g/dl Hct (37.0-47.0) % MCV (80.0-98.0) fL MCH (27.0-33.0) pg MCHC (31.0-35.0) g/dl RDW (11.0-16.0) % Plt Count (160-400) X10*3/uL MPV (9.4-12.3) fL Immature Gran % (Auto) (0.0-0.4) % Neut % (Auto) (45-73) % Lymph % (Auto) (20-40) % [place]ole % (Auto) (2-11) % Eos % (Auto) (0-4) % Baso % (Auto) (0-2) % Lymph # (Auto) (1.2-4.9) X10*3/uL [place]ole # (Auto) (0.1-1.2) X10*3/uL Eos # (Auto) (0.0-0.4) X10*3/uL Baso # (Auto) (0.0-0.2) X10*3/uL Abs Immat Gran (auto) (0.00-0.03) X10*3/uL Absolute Neuts (auto) (2.0-8.3) x10*3/uL Absolute Nucleated RBC (0.0-0.012) X10*3/uL Nucleated RBC % (auto) (0.0-0.2) /100WBC PT (11.1-13.3) SEC INR (0.9-1.1) Sodium (135-145) mmol/L Potassium (3.3-5.1) mmol/L Chloride (96-108) mmol/L Carbon Dioxide (22-29) mmol/L Anion Gap (12-20) BUN (9-16) mg/dL Creatinine (0.5-1.4) mg/dL Estim Creat Clear Calc Estimated GFR Random Glucose (60-115) mg/dL Lactic Acid 3.8 H* (0.5-2.0) mmol/L Calcium (8.4-10.2) mg/dL Magnesium (1.6-2.6) mg/dL Total Bilirubin (0.0-1.0) mg/dL AST (5-31) U/L ALT (0-31) U/L Alkaline Phosphatase (39-117) U/L Troponin I High Sens 45.4 H (<3.5-17.0) ng/L B-Natriuretic Peptide 71 (<100) pg/mL Total Protein (6.5-8.0) g/dL Albumin (3.5-5.0) g/dL Lipase (8-78) U/L Urine Color Urine Appearance Urine pH (5.0-9.0) Ur Specific [place] (1.005-1.025) Urine Protein (Neg-Trace) mg/dL Urine Glucose (UA) (Negative) mg/dL Urine Ketones (Negative) mg/dL Urine Blood (Negative) Urine Nitrite (Negative) Ur Leukocyte Esterase (Negative) Urine RBC (0-2) /HPF Urine WBC (0-5) /HPF Ur Squamous Epith Cells (0-2) /HPF Urine Bacteria (None Seen) Hyaline Casts (0-2) /LPF COVID-19 ([facility]) (Negative) COVID-19 Clin Com 10/02/22 10/02/22 Range/Units 17:35 17:35 WBC (4.8-10.8) X10*3/uL RBC (4.20-5.50) X10*6/uL Hgb (12.0-16.0) g/dl Hct (37.0-47.0) % MCV (80.0-98.0) fL MCH (27.0-33.0) pg MCHC (31.0-35.0) g/dl RDW (11.0-16.0) % Plt Count (160-400) X10*3/uL MPV (9.4-12.3) fL Immature Gran % (Auto) (0.0-0.4) % Neut % (Auto) (45-73) % Lymph % (Auto) (20-40) % [place] % (Auto) (2-11) % Eos % (Auto) (0-4) % Baso % (Auto) (0-2) % Lymph # (Auto) (1.2-4.9) X10*3/uL [place] # (Auto) (0.1-1.2) X10*3/uL Eos # (Auto) (0.0-0.4) X10*3/uL Baso # (Auto) (0.0-0.2) X10*3/uL Abs Immat Gran (auto) (0.00-0.03) X10*3/uL Absolute Neuts (auto) (2.0-8.3) x10*3/uL Absolute Nucleated RBC (0.0-0.012) X10*3/uL Nucleated RBC % (auto) (0.0-0.2) /100WBC PT (11.1-13.3) SEC INR (0.9-1.1) Sodium (135-145) mmol/L Potassium (3.3-5.1) mmol/L Chloride (96-108) mmol/L Carbon Dioxide (22-29) mmol/L Anion Gap (12-20) BUN (9-16) mg/dL Creatinine (0.5-1.4) mg/dL Estim Creat Clear Calc Estimated GFR Random Glucose (60-115) mg/dL Lactic Acid (0.5-2.0) mmol/L Calcium (8.4-10.2) mg/dL Magnesium (1.6-2.6) mg/dL Total Bilirubin (0.0-1.0) mg/dL AST (5-31) U/L ALT (0-31) U/L Alkaline Phosphatase (39-117) U/L Troponin I High Sens (<3.5-17.0) ng/L B-Natriuretic Peptide (<100) pg/mL Total Protein (6.5-8.0) g/dL Albumin (3.5-5.0) g/dL Lipase (8-78) U/L Urine Color Yellow Urine Appearance Turbid Urine pH 6.0 (5.0-9.0) Ur Specific [place] 1.020 (1.005-1.025) Urine Protein 30 (1+) H (Neg-Trace) mg/dL Urine Glucose (UA) Negative (Negative) mg/dL Urine Ketones 15 (Negative) mg/dL Urine Blood Trace H (Negative) Urine Nitrite Negative (Negative) Ur Leukocyte Esterase Large (3+) H (Negative) Urine RBC 6-10 H (0-2) /HPF Urine WBC >50 H (0-5) /HPF Ur Squamous Epith Cells 3-5 (0-2) /HPF Urine Bacteria 4+ (None Seen) Hyaline Casts 6-10 (0-2) /LPF COVID-19 ([facility]) Negative (Negative) COVID-19 Clin Com See Note Independent Interpretation I performed an independent interpretation of an: EKG (AFib with rapid ventricular response at 1 we 8, diffuse ST depression in the lateral leads, significant change from previous EKG.), Plain X-Ray (Chest: No acute intrathoracic pathology.) and CT Scan (Abdomen and pelvis: No acute intra- abdominal pathology.) Radiology Impression Discussion of test interpretation with radiology: I have reviewed the radiologist's reading. (1. No acute inflammatory or infectious process. 2. Constipation. 3. Fusiform infrarenal abdominal aortic aneurysm with a maximum diameter 4.5 cm. This is stable compared to the prior exam. Further evaluation is limited due to lack of IV contrast. Recommend followup every 6 months and vascular spe) Discharge Plan Discharge Clinical Impression: Non-ST elevated myocardial infarction (non-STEMI), Acute UTI, Acidosis, lactic Patient Disposition: Admitted As Inpatient
--- NOTE | 2022-10-02 16:12 | ECG_ITS ---
Test Reason : SOB Blood Pressure : / mmHG Vent. Rate : 108 BPM Atrial Rate : 000 BPM P-R Int : 000 ms QRS Dur : 094 ms QT Int : 324 ms P-R-T Axes : 000 039 213 degrees QTc Int : 434 ms Atrial fibrillation with rapid ventricular response Marked ST abnormality, possible inferior subendocardial injury Marked ST abnormality, possible anterolateral subendocardial injury Abnormal ECG When compared with ECG of 13-JUN-2022 13:27, ST now depressed in Inferior leads ST more depressed Anterolateral leads T wave inversion less evident in Anterior leads T wave inversion more evident in Lateral leads Referred By: Gladis Rivera Electronically Signed By:ANTONIA JERONIMO
[2022-10-02 16:35] VITALS: BP 103/72; PULSE 100; RESP 18; O2SAT 96
--- NOTE | 2022-10-02 16:42 | PC.NURSE ---
aRRIVED FROM HOME WITH COMPLAINTS OF INCREASING SOB, weakness, and unable to eat or drink x 2 days. Patient reports last ate on monday but threw up on Sat. Patient arrived with abdi cath not connected to bag, states has it because he bladder doesnt work, states was last changed at home about two weeks ago. denies chest pain, constipated x 4 days, not on home 02.
[2022-10-02 17:27] LABS: Lactic Acid 3.8 mmol/L (0.5-2.0)
[2022-10-02 17:29] VITALS: BP 113/83; PULSE 109; RESP 16; TEMP 36.3; O2SAT 98
[2022-10-02 17:35] LABS: MANUAL DIFF FLAG NO
--- NOTE | 2022-10-02 17:36 | MHC.EDTECH ---
urine sample collected and covid swab sent to lab .
[2022-10-02 17:56] LABS: Alanine Aminotransferase 8 U/L (0-31); Albumin Level 3.6 g/dL (3.5-5.0); Alkaline Phosphatase 76 U/L (39-117); Anion Gap 21 (12-20); Aspartate Amino Transferase 15 U/L (5-31); Bilirubin Total 0.3 mg/dL (0.0-1.0); Blood Urea Nitrogen 38 mg/dL (9-16); Calcium 10.1 mg/dL (8.4-10.2); Carbon Dioxide 18 mmol/L (22-29); Chloride 105 mmol/L (96-108); Creatinine Clr Calc Pharmacy 46.2; Estimated Glomerular Filt Rate > 60; Glucose Random 111 mg/dL (60-115); Lipase 13 U/L (8-78); Magnesium 2.2 mg/dL (1.6-2.6); Potassium 4.2 mmol/L (3.3-5.1); Sodium 140 mmol/L (135-145); Total Protein 6.9 g/dL (6.5-8.0)
[2022-10-02 17:58] LABS: B Type Natriuretic Peptide 71 pg/mL (<100)
[2022-10-02 17:59] LABS: COVID-19 Test Negative (Negative); IDNOW Serial# BCCEAD1C
[2022-10-02 18:01] LABS: Appearance Urine Turbid; Color Urine Yellow; Glucose Urine UA Negative (Negative); Leukocyte Esterase Urine Large (3+) (Negative); Nitrite Urine Negative (Negative); UMIC TRIGGER UACC YES; Urine Blood Trace (Negative); Urine Ketones 15 mg/dL (Negative); Urine Protein 30 (1+) mg/dL (Neg-Trace)
[2022-10-02 18:01] LABS: Basophils Absolute Auto 0.1 X10*3/uL (0.0-0.2); Basophils Percent Auto 0.6 % (0-2); Eosinophils Percent Auto 0.2 % (0-4); Hematocrit 49.9 % (37.0-47.0); Hemoglobin 16.5 g/dl (12.0-16.0); Imm Gran Abs Auto 0.06 X10*3/uL (0.00-0.03); Imm Gran Pct Auto 0.6 % (0.0-0.4); Lymphocytes Absolute Auto 1.8 X10*3/uL (1.2-4.9); Lymphocytes Percent Auto 17.2 % (20-40); Mean Corpuscular HGB Conc 33.1 g/dl (31.0-35.0); Mean Corpuscular Hemoglobin 29.6 pg (27.0-33.0); Mean Corpuscular Volume 89.4 fL (80.0-98.0); Mean Platelet Volume 10.1 fL (9.4-12.3); Monocytes Absolute Auto 0.6 X10*3/uL (0.1-1.2); Monocytes Percent Auto 5.7 % (2-11); Neutrophils Absolute Auto 7.7 x10*3/uL (2.0-8.3); Neutrophils Percent Auto 75.7 % (45-73); Platelet Count 266 X10*3/uL (160-400); Red Blood Count 5.58 X10*6/uL (4.20-5.50); Red Cell Distribution Width 15.7 % (11.0-16.0); White Blood Count 10.2 X10*3/uL (4.8-10.8)
[2022-10-02 18:02] LABS: Troponin-I High Sensitivity 45.4 ng/L (<3.5-17.0)
--- NOTE | 2022-10-02 18:08 | PC.NURSE ---
abdi bag placed, urine obtained for UA C& S. 97% on ra. denies pain or discomfort at this time. sinus tacy on monitor, son at bedside
[2022-10-02 18:12] LABS: Prothrombin Time 12.6 SEC (11.1-13.3)
[2022-10-02 18:25] LABS: Bacteria Urine 4+ (None Seen); UACC Culture Trigger YES; WBC Urine >50 /HPF (0-5)
[2022-10-02 18:33] VITALS: BMI 19.4
--- NOTE | 2022-10-02 18:37 | PC.NURSE ---
Per md verbal order abdi removed, new 16fr 10cc abdi placed, draining clear yellow urine. Patient re-weight prior to start of heparin drip. pharmacy notified
[2022-10-02] MEDS: cefTRIAXone sodium 1 GM in 0.9 % Sodium Chloride 50 ML IV (18:46)
[2022-10-02] MEDS: Metoprolol Tartrate 50 MG TABLET PO (18:47)
[2022-10-02] MEDS: Atorvastatin Calcium 80 MG TABLET PO (18:47)
[2022-10-02] MEDS: Aspirin Enteric Coated 81 MG TABLET.DR PO (18:47)
[2022-10-02] MEDS: Milk of Magnesia 30 ML ORAL.SUSP PO (18:48)
[2022-10-02] MEDS: 0.9 % Sodium Chloride 1,000 ML 999 ML IV (18:50)
[2022-10-02 19:07] LABS: Reflex Lactate? Lactic Acid Added
--- NOTE | 2022-10-02 19:16 | P.HPHOSP_ITS ---
<Statement entered by Rosalia Wren MD - 10/17/22 07:10> I agree with RICKY note AP, pt comes in for management of NSTEMI started on Heparin drip cardiology, echo pending for full H&P see below History of Present Illness Date of Service: 10/02/22 Attending physician on admission: Rosalia Wren Chief Complaint: Abdominal pain, N/V, generalized weakness Pt is a 71-year-old female with a PMH significant for?persistent AFib on Xarelto, CKD 3, AAA followed by [facility], COPD not on home O2, GERD, hx uterine cancer, HLD, HTN, chronic indwelling Cadet catheter d/t neurogenic bladder, and sick sinus syndrome with pacemaker in-situ who presents to the ED with?abdominal pain, nausea, vomiting, and increased shortness of breath. Patient states she has had chronic lower abdominal pain since June when she had a C-diff infection. Pain increased yesterday when she experienced nausea and vomiting, and felt generally unwell. Patient presents to the emergency room today because ?I just do not feel right.? Patient denies chest pain/pressure, palpitations. Chills but no fever. Has also been having constipation lately, normally has bowel movement daily but last one was 2-3 days ago. In the ED patient was afebrile but tachycardic up to 109 and slightly hypertensive 139/91. Labs were significant for BUN 39, lactic acid 3.9, initial troponin 45.4. Electrolytes WNL. Hepatic function baseline. BNP WNL at 71. UA positive for UTI. CXR showed no acute cardiopulmonary process. CT?abdomen and pelvis found no acute inflammatory or infectious process, but did show constipation and infrarenal abdominal aortic aneurysm with maximum diameter of 4.5 cm that is stable compared to prior exam. EKG demonstrated AFib with RVR of [address] depression in the anterior lateral leads. Pt was treated with ceftriaxone, metoprolol, aspirin, atorvastatin, museum hydroxide, IVF, and started on a heparin drip. Pt will be admitted to the hospital on telemetry for treatment, further evaluation, and close monitoring of NSTEMI. Review of Systems 2 Review of Systems: Worsening chronic abdominal pain Nausea, vomiting since yesterday Increasing SOB Constipation Denies chest pain/pressure, palpitations No fever REPLACED BY [facility] Medical History Cardiac pacemaker in situ COPD (chronic obstructive pulmonary disease) Dyspnea on exertion Exercise hypoxemia GERD (gastroesophageal reflux disease) HTN (hypertension) Hypertension Legally blind On beta mayra at home Persistent atrial fibrillation Pneumonia Retention, urine Sick sinus syndrome Family History Father CHF (congestive heart failure) Cancer Pacemaker Mother Emphysema lung Surgical History History of cardioversion History of endoscopy History of esophagogastroduodenoscopy (EGD) History of radiofrequency ablation (RFA) for complex left atrial arrhythmia Hx of cardiac pacemaker Hx of colonoscopy Hx of hysterectomy Social History Household Members: Spouse Housing: House Do you presently have visiting nurse or other home services: Yes Unable to assess alcohol history related to: Unknown Alcohol intake: former Patient Tobacco Use Status: Former Tobacco user Quit Date: 30 years ago Smoked in Last 30 Days: No Use of substances other than those prescribed or required for medical reasons: No Advance Directives: Yes Advance Directives on File: Yes Advance Directives Date on File: 07/26/22 service: No Meds Allergies Allergy/AdvReac Type Severity Reaction Status Date / Time No Known Allergies Allergy Verified 10/02/22 16:16 [No Known Allergies*] Active Medications: Current Medications Heparin Sodium (Porcine) (Heparin Sodium,Porcine 5,000 Unit/Ml Vial) 1,900 unit 40 unit/kg (1900 unit) IVPUSH PROTOCOL BOLUS PRN; Protocol PRN Reason: 40 unit/kg - Heparin Protocol Heparin Sodium (Porcine) (Heparin Sodium,Porcine 5,000 Unit/Ml Vial) 3,800 unit 80 unit/kg (3800 unit) IVPUSH PROTOCOL BOLUS PRN; Protocol PRN Reason: 80 unit/kg - Heparin Protocol Sodium Chloride (Ns) 1,000 mls @ 999 mls/hr IV .Q1H1M ONE Stop: 10/02/22 19:22 Last Admin: 10/02/22 18:50 Dose: 999 mls/hr Heparin Sodium/Sodium Chloride (Heparin Sodium,Porcine/1/2ns) 25,000 unit in 250 mls @ 0 mls/hr IVCONT .Q0M LUCY; Protocol Home Medications Medication Instructions Recorded Confirmed Last Taken Type ferrous sulfate 325 mg (65 mg 325 mg PO BID 04/07/20 06/13/22 06/13/22 History iron) tablet folic acid 1 mg tablet 1 mg PO DAILY 04/07/20 06/13/22 06/13/22 History calcium carbonate 200 mg calcium 200 mg PO TID PRN Heartburn 02/10/21 06/13/22 Unknown History (500 mg) chewable tablet (Tums) simvastatin 40 mg tablet 40 mg PO BEDTIME 02/10/21 06/13/22 Unknown History ascorbic acid (vitamin C) 500 mg 500 mg PO DAILY 03/31/21 06/13/22 06/13/22 History tablet metoprolol succinate 25 mg 25 mg PO BID 12/24/21 06/13/22 06/13/22 History tablet,extended release 24 hr albuterol sulfate 90 mcg/actuation 2 puff inhalation Q6H PRN wheezing 05/12/22 06/13/22 Unknown History aerosol inhaler hydrocodone 7.5 mg-acetaminophen 1 tab PO Q6H PRN severe pain 05/12/22 06/13/22 05/17/22 History 325 mg tablet ipratropium 0.5 mg-albuterol 3 mg 3 ml inhalation Q4-6H PRN wheezing 05/12/22 06/13/22 Unknown History (2.5 mg base)/3 mL nebulization soln rivaroxaban 20 mg tablet (Xarelto) 20 mg PO DAILY@1700 06/13/22 06/13/22 Unknown History Lactobacillus acidophilus 0.5 mg 0.5 mg PO DAILY 07/26/22 Unknown History (100 million cell) tablet Physical Exam 2 Vital Signs and Narrative: Vital Signs: Last Vital Signs Temp 97.4 F 10/02/22 17:29 Pulse 109 H 10/02/22 17:29 Resp 16 10/02/22 17:29 BP 113/83 10/02/22 17:29 Pulse Ox 98 10/02/22 17:29 O2 Del Method Room Air 10/02/22 17:29 BMI result Body Mass Index 19.4 Constitutional: Alert, cachectic, in no acute distress. Mental Status: Oriented to person, place and time. Eyes: Pupils are equal, round, and reactive to light. Ear, Nose, and Throat: Oropharynx clear, mucous membranes dry. Ears and nose without deformities. Trachea midline. Respiratory: Clear to auscultation bilaterally. No wheezing, rales, or rhonchi. Patient breathing through mouth with diaphragmatic breathing. Not on supplemental O2. Cardiovascular: Irregularly irregular rhythm. No murmurs, rubs, or gallops. Palpable abdominal aortic aneurysm. Gastrointestinal: Abdomen soft, non-distended, with diffuse lower abdominal tenderness. Normal bowel sounds. Neurologic: Cranial nerves II-XII are grossly intact bilaterally. No focal neurological deficits. Moves all extremities spontaneously. Skin: No rashes or lesions noted. Musculoskeletal: No cyanosis or clubbing. Extremities: No edema. Psychiatric: Normal mood and affect. Results Labs 10/02/22 17:01 10/02/22 17:01 Labs: Laboratory Results - last 24 hr 10/02/22 10/02/22 10/02/22 17:01 17:01 17:01 MCV 89.4 MCH 29.6 MCHC 33.1 RDW 15.7 Plt Count 266 MPV 10.1 Immature Gran % (Auto) 0.6 H Neut % (Auto) 75.7 H Lymph % (Auto) 17.2 L [place] % (Auto) 5.7 Eos % (Auto) 0.2 Baso % (Auto) 0.6 Lymph # (Auto) 1.8 [place] # (Auto) 0.6 Eos # (Auto) 0.0 Baso # (Auto) 0.1 Abs Immat Gran (auto) 0.06 H Absolute Neuts (auto) 7.7 Absolute Nucleated RBC 0.000 Nucleated RBC % (auto) 0.0 PT 12.6 INR 1.0 Anion Gap 21 H Estim Creat Clear Calc 46.2 Estimated GFR > 60 Random Glucose 111 Lactic Acid Calcium 10.1 D Magnesium 2.2 Total Bilirubin 0.3 AST 15 ALT 8 Alkaline Phosphatase 76 B-Natriuretic Peptide Total Protein 6.9 Albumin 3.6 Lipase 13 Urine Color Urine Appearance Urine pH Ur Specific [place] Urine Protein Urine Glucose (UA) Urine Ketones Urine Blood Urine Nitrite Ur Leukocyte Esterase Urine RBC Urine WBC Ur Squamous Epith Cells Urine Bacteria Hyaline Casts COVID-19 (ELO) COVID-19 Clin Com 10/02/22 10/02/22 10/02/22 17:01 17:02 17:35 MCV MCH MCHC RDW Plt Count MPV Immature Gran % (Auto) Neut % (Auto) Lymph % (Auto) [place] % (Auto) Eos % (Auto) Baso % (Auto) Lymph # (Auto) [place] # (Auto) Eos # (Auto) Baso # (Auto) Abs Immat Gran (auto) Absolute Neuts (auto) Absolute Nucleated RBC Nucleated RBC % (auto) PT INR Anion Gap Estim Creat Clear Calc Estimated GFR Random Glucose Lactic Acid 3.8 H* Calcium Magnesium Total Bilirubin AST ALT Alkaline Phosphatase B-Natriuretic Peptide 71 Total Protein Albumin Lipase Urine Color Urine Appearance Urine pH Ur Specific [place] Urine Protein Urine Glucose (UA) Urine Ketones Urine Blood Urine Nitrite Ur Leukocyte Esterase Urine RBC Urine WBC Ur Squamous Epith Cells Urine Bacteria Hyaline Casts COVID-19 (ELO) Negative COVID-19 Clin Com See Note 10/02/22 17:35 MCV MCH MCHC RDW Plt Count MPV Immature Gran % (Auto) Neut % (Auto) Lymph % (Auto) [place] % (Auto) Eos % (Auto) Baso % (Auto) Lymph # (Auto) [place] # (Auto) Eos # (Auto) Baso # (Auto) Abs Immat Gran (auto) Absolute Neuts (auto) Absolute Nucleated RBC Nucleated RBC % (auto) PT INR Anion Gap Estim Creat Clear Calc Estimated GFR Random Glucose Lactic Acid Calcium Magnesium Total Bilirubin AST ALT Alkaline Phosphatase B-Natriuretic Peptide Total Protein Albumin Lipase Urine Color Yellow Urine Appearance Turbid Urine pH 6.0 Ur Specific [place] 1.020 Urine Protein 30 (1+) H Urine Glucose (UA) Negative Urine Ketones 15 Urine Blood Trace H Urine Nitrite Negative Ur Leukocyte Esterase Large (3+) H Urine RBC 6-10 H Urine WBC >50 H Ur Squamous Epith Cells 3-5 Urine Bacteria 4+ Hyaline Casts 6-10 COVID-19 (ELO) COVID-19 Clin Com Imaging Radiologist's Impressions: Impressions Chest X-Ray 10/02/22 17:10 IMPRESSION: No acute process. Abdomen/Pelvis CT 10/02/22 17:19 IMPRESSION: 1. No acute inflammatory or infectious process. 2. Constipation. 3. Fusiform infrarenal abdominal aortic aneurysm with a maximum diameter 4.5 cm. This is stable compared to the prior exam. Further evaluation is limited due to lack of IV contrast. Recommend followup every 6 months and vascular specialist consultation. Reference: J Am Jeaneth Radiol 2013; 10 (10): 789-794. Assessment and Plan (1) Non-ST elevated myocardial infarction (non-STEMI): Status: Acute (2) Acute UTI: Status: Acute (3) Acidosis, lactic: Status: Acute Plan Pt is a 71-year-old female with a PMH significant for?persistent AFib on Xarelto, CKD 3, AAA followed by [facility], COPD not on home O2, GERD, hx uterine cancer, HLD, HTN, chronic indwelling Cadet catheter d/t neurogenic bladder, and sick sinus syndrome with pacemaker in-situ who presents to the ED with?abdominal pain, nausea, vomiting, and increased shortness of breath. Pt will be admitted to the hospital on telemetry for treatment, further evaluation, and close monitoring of NSTEMI. NSTEMI EKG with evidence of increased ST depressions in anterior lateral leads Initial troponin 45.4, repeat pending Patient asymptomatic: Denies chest pain/pressure, palpitations Patient placed on heparin drip in the ED, will continue Aspirin, statin Cardiology consult Will check repeat troponin Will get echocardiogram Monitor on telemetry Chronic abdominal pain Unclear etiology, patient says has been experiencing since C diff infection in June of this year CT of abdomen/pelvis negative for acute abdomen Analgesics for pain management Lactic acidosis, resolved Lactic acid 3.8 with repeat 2.2 Likely secondary to mild dehydration due to decreased p.o. intake and GI losses Patient received IVF ED UTI UA positive for UTI Ceftriaxone 1 g IV q.d., started 10/02/[address] of abdomen pelvis found AAA with maximal diameter 4.5 cm, stable compared to prior exam Should follow up outpatient with vascular surgery every 6 months Persistent AFib Continue metoprolol, digoxin Hold Xarelto Neurogenic bladder Chronic indwelling Cadet catheter, continue COPD Not in acute exacerbation Continue home inhalers HLD Continue statin GERD PPI Full Code Attending:?Dr. Wren DVT Prophylaxis: On heparin drip Pt will require a hospitalization of at least two nights for treatment of?NSTEMI with heparin drip, close monitoring, and expert consultation. Time Spent With Patient Time: Total time managing care of this patient today ____ minutes. Quality Stroke Does the patient have a stroke diagnosis?: No VTE Prior VTE?: No VTE Risk Level:: Medical - moderate - high VTE Device Contraindication: Treatment Not Indicated VTE Drug Contraindication: N/A - Med Ordered
[2022-10-02 19:19] VITALS: BP 139/91; PULSE 91; RESP 20; TEMP 36.6; O2SAT 97
--- NOTE | 2022-10-02 19:21 | MHC.EDTECH ---
PATIENT REPEATED LABS DRAWN AND URINE SAMPLE COLLECTED AND SENT TO LAB ,VITALS SIGN TAKEN .
[2022-10-02 19:25] LABS: Hematocrit 46.2 % (37.0-47.0); Hemoglobin 15.5 g/dl (12.0-16.0); Mean Corpuscular HGB Conc 33.5 g/dl (31.0-35.0); Mean Corpuscular Hemoglobin 29.6 pg (27.0-33.0); Mean Corpuscular Volume 88.2 fL (80.0-98.0); Mean Platelet Volume 9.3 fL (9.4-12.3); Platelet Count 231 X10*3/uL (160-400); Red Blood Count 5.24 X10*6/uL (4.20-5.50); Red Cell Distribution Width 15.8 % (11.0-16.0); White Blood Count 11.4 X10*3/uL (4.8-10.8)
[2022-10-02 19:41] LABS: Appearance Urine Hazy; Color Urine Yellow; Glucose Urine UA Negative (Negative); Leukocyte Esterase Urine Small (1+) (Negative); Nitrite Urine Positive (Negative); UMIC TRIGGER UACC YES; Urine Blood Small (1+) (Negative); Urine Ketones 40 mg/dL (Negative); Urine Protein 30 (1+) mg/dL (Neg-Trace)
[2022-10-02 19:42] LABS: INTERNATIONAL NORM RATIO 1.1 (0.9-1.1); Prothrombin Time 12.9 SEC (11.1-13.3)
[2022-10-02 19:44] LABS: PTT Heparin Drip 31.9 SEC (53-77.9)
[2022-10-02 20:00] LABS: ~Lactic Acid-LAB USE ONLY 2.2 mmol/L (0.5-2.0)
[2022-10-02 20:05] LABS: UACC Culture Trigger YES
[2022-10-02 20:06] LABS: Bacteria Urine 4+ (None Seen); Hyaline Casts Urine 0-2 /LPF (0-2)
[2022-10-02] MEDS: Heparin Sodium,Porcine/1/2NS 25,000 UNIT/250 ML IV.SOLN 5.77 UNIT IVCONT (20:07)
[2022-10-02 20:33] LABS: Cancel Lactic Acid Canceled
[2022-10-02 20:38] VITALS: BP 150/90; PULSE 72; RESP 16; TEMP 36.6; O2SAT 96
--- NOTE | 2022-10-02 20:45 | MHC.EDTECH ---
VITALS SIGN TAKEN ,BLADDER SCAN DONE ,PT HAD ONLY 3 ML IN BLADDER ,PATIENT OUT PUT IS 75 ML ,WARM BLANKET GIVEN ,PT IS COMFORTABLE WATCHING TELEVISION ,PT IS HOOKED UP TO CRIMINAL JUDGE ,WILL CONTINUE TO MONITOR .
[2022-10-02 20:53] LABS: Troponin-I High Sensitivity 39.1 ng/L (<3.5-17.0)
--- NOTE | 2022-10-02 20:58 | PC.NURSE ---
This RN assumed care at 1900. Patient started on Heparin drip, rate and dose verified with Francheska Cabrera RN. Patient able to make needs known and will be admitted. Will continue to monitor until patient is transported to floor
--- NOTE | 2022-10-02 22:31 | MHC.EDTECH ---
PATIENT TOTAL OUT PUT FROM NEW POOLE IS 150 ML ,ISABELA REHMAN AWARE ,VITALS SIGN TAKEN ,PT HAD MEDIUM AMOUNT OF WATERY BOWEL MOVEMENT CARE GIVEN ,PT WATCHING TELEVISION AND IS COMFORTABLE .
--- NOTE | 2022-10-02 22:49 | MHC.EDTECH ---
PATIENT DRANK SIPS OF RAVIN SAEED .
[2022-10-02 23:07] VITALS: BP 119/77; PULSE 68; RESP 17; TEMP 36.6; O2SAT 98
--- NOTE | 2022-10-03 | ECG_ITS ---
Test Reason : abn ekg Blood Pressure : / mmHG Vent. Rate : 087 BPM Atrial Rate : 000 BPM P-R Int : 000 ms QRS Dur : 086 ms QT Int : 342 ms P-R-T Axes : 000 029 245 degrees QTc Int : 411 ms Atrial fibrillation Anterior infarct , age undetermined Marked ST abnormality, possible inferior subendocardial injury Abnormal ECG When compared with ECG of 02-OCT-2022 16:28, T wave inversion more evident in Anterior leads T wave inversion less evident in Lateral leads Referred By: Ron Lama Electronically Signed By:ANTONIA JERONIMO
[2022-10-03] MEDS: traMADoL HCL 50 MG TABLET PO ×4 (00:54→19:58)
[2022-10-03] MEDS: 0.9 % Sodium Chloride Flush 3 ML SYRINGE IVFLUSH ×2 (00:55→16:29)
--- NOTE | 2022-10-03 00:58 | PC.NURSE ---
Patient given pain medicine at this time as documented in MAR
[2022-10-03 01:58] VITALS: BP 107/61; PULSE 60; RESP 14; TEMP 36.4; O2SAT 98
[2022-10-03 02:03] LABS: PTT Heparin Drip 44.8 SEC (53-77.9)
--- NOTE | 2022-10-03 03:02 | PC.NURSE ---
PTT returned at 44.8, dose titrated and increased, witnessed by Francheska Cabrera RN.
[2022-10-03 04:58] VITALS: BP 167/65; PULSE 91; RESP 18; TEMP 36.7; O2SAT 98
[2022-10-03] MEDS: Heparin Sodium,Porcine 5,000 UNIT/ML VIAL 1900 UNIT IVPUSH (05:02)
--- NOTE | 2022-10-03 05:31 | PC.NURSE ---
Patient given bolus of heparin per protocol at documented time. MD aware and pharmacy aware. Will continue to monitor
[2022-10-03 05:38] LABS: Hematocrit 45.1 % (37.0-47.0); Hemoglobin 15.2 g/dl (12.0-16.0); Mean Corpuscular HGB Conc 33.3 g/dl (31.0-35.0); Mean Corpuscular Hemoglobin 29.4 pg (27.0-33.0); Mean Corpuscular Hemoglobin 29.8 pg (27.0-33.0); Mean Corpuscular Volume 88.4 fL (80.0-98.0); Mean Corpuscular Volume 90.2 fL (80.0-98.0); Mean Platelet Volume 9.5 fL (9.4-12.3); Platelet Count 208 X10*3/uL (160-400); Platelet Count 223 X10*3/uL (160-400); Red Cell Distribution Width 15.6 % (11.0-16.0); Red Cell Distribution Width 15.7 % (11.0-16.0); White Blood Count 11.8 X10*3/uL (4.8-10.8); White Blood Count 12.1 X10*3/uL (4.8-10.8)
[2022-10-03 05:48] LABS: INTERNATIONAL NORM RATIO 1.1 (0.9-1.1); Prothrombin Time 13.8 SEC (11.1-13.3)
[2022-10-03 05:57] LABS: Anion Gap 15 (12-20); Blood Urea Nitrogen 35 mg/dL (9-16); Calcium 8.8 mg/dL (8.4-10.2); Carbon Dioxide 17 mmol/L (22-29); Chloride 110 mmol/L (96-108); Creatinine Clr Calc Pharmacy 55.9; Estimated Glomerular Filt Rate > 60; Glucose Random 112 mg/dL (60-115); Potassium 3.4 mmol/L (3.3-5.1); Sodium 139 mmol/L (135-145)
--- NOTE | 2022-10-03 07:00 | CA_ITS ---
Transthoracic Echocardiogram Patient (Last, First, Middle): Trupti Jung A Gender: Female Date of : 1950 Age: 71 Procedure Date: 10/03/2022 Procedure Type: Transthoracic Echocardiogram Location: [facility] [place] Height: 157.48 cm Weight: 48.08 kg BSA: 1.46 m2 Heart Rate: 93 bpm BP: 138 / 86 mmHg [facility] Demonstrator: LDIYA Referring MD: Samira MAGALLANES Symptoms: NSTEMI Study Quality: Adequate w contrast ECG Rhythm: Atrial Fibrillation Conclusions: - Normal left ventricular size and systolic function. There is mildly increased left ventricular wall thickness. The visually estimated ejection fraction is between 60-65%. - Normal right ventricular cavity size and systolic function. - The left atrium is severely dilated. The right atrium is normal in size. - There is moderate mitral valve regurgitation. Findings Procedure Information Contrast agent, definity, is being given per protocol without apparent complications. Left Ventricle Normal left ventricular size and systolic function. There is mildly increased left ventricular wall thickness. The visually estimated ejection fraction is between 60-65%. There is no evidence of regional wall motion abnormalities. Diastolic function is indeterminate on the basis of available data. Right Ventricle Normal right ventricular cavity size and systolic function. Atria The left atrium is severely dilated. The right atrium is normal in size. Aortic Valve Normal aortic valve structure and function. There is mild thickening of the aortic valve. There is no aortic valve stenosis. There is no aortic valve regurgitation. Mitral Valve There is moderate mitral valve regurgitation. There is no mitral valve stenosis. Pulmonic Valve The pulmonic valve was not well visualized. Tricuspid Valve Likely normal tricuspid valve structure and function. Normal right atrial pressure. There is no evidence of pulmonary hypertension. Great Vessels All visible segments of the aorta are normal in size. The pulmonary artery was not well visualized. Venous The inferior vena cava is normal in size and collapses greater than 50% with inspiration. Pericardium/Pleural There is no evidence of pericardial effusion. Prior Study Comparison Changes noted compared to prior study dated: 05/11/2021. Moderate MR, severe LA dilation. Measurements 2D Linear Measurements IVSd: 1.08 0.6-0.9/0.6-1.0 cm LVIDd: 4.03 3.9-5.3/4.2-5.9 cm LVIDd Index: 2.76 2.4-3.2/2.2-3.1 cm/m2 LVIDs: 2.87 2.0-3.6 cm LVPWd: 1.04 0.7-1.1 cm LA Diam: 3.30 2.7-3.8/3.0-4.0 cm LAIDs Index: 2.26 1.5-2.3 cm/m2 LV Mass: 173.84 67-162/88-224 g LV Mass Index: 119.07 43-95/49-115 g/m2 LVOT Diam: 1.80 3.0+(-)1.3 cm Mitral Valve MV Pk E: 0.77 MV Decel Time: 182.00 E'Lateral: 11.40 E'Medial: 8.53 E/E' Med: 9.10 E/E' Lat: 6.80 PHT: 53.00 MVA PHT: 4.15 Decel [place]: 4.33 Aortic Valve AoV Pk Eliezer: 1.08 AoV Pk Grad: 5.00 AISHWARYA: 1.56 LVOT LVOT Pk Eliezer: 0.66 LVOT Pk Grad: 2.00 LVOT Diam: 1.80 LVOT Area: 2.54 Diastolic Function MV Pk E: 0.77 E'Medial: 8.53 E/E' Med: 9.10 E' Laterial: 11.40 E/E' Lat: 6.80 Right Ventricle TAPSE (mm): 15.70 TVS' Eliezer: 13.10 Tricuspid Valve TR Pk Eliezer: 2.67 TR Pk Grad: 29.00 RA Press: 3.00 RVSP: 32.00 Great Vessels Aorta Sinus of Valsalva: 3.41 2.0-3.[address] [place]: 2.45 1.7-3.4 cm Updated in Other Vendor System with Status of Final Pedro Mccarthy MD electronically signed on 10/03/2022 2:42:47 PM with status of Final
[2022-10-03 07:33] VITALS: BP 138/86; PULSE 87; RESP 18; TEMP 36.2; O2SAT 96
[2022-10-03 07:45] VITALS: BMI 21.5
[2022-10-03] MEDS: Aspirin Enteric Coated 81 MG TABLET.DR PO (07:59)
[2022-10-03] MEDS: Docusate Sodium 100 MG CAPSULE PO (07:59)
[2022-10-03] MEDS: ondansetron HCL 4 MG/2 ML VIAL IVPUSH (08:00)
[2022-10-03 09:49] LABS: PTT Heparin Drip 62.6 SEC (53-77.9)
--- NOTE | 2022-10-03 10:06 | PHA.MEDREC ---
Pharmacy Consult ? Medication Reconciliation Pharmacy has completed the medication reconciliation. Spoke to patient who didn't know medication and said to use list from last time she was here. Recent visit with primary stated to jorge/maria isabel pruett but patent still filling and believes to be taking.
--- NOTE | 2022-10-03 10:20 | MHC.CM.PN ---
IMM 10/03/22 DELIVERED TO BEDSIDE, EMR REVIEWED AND PT ADMITTED W/NSTEMI, PT REPORTS SHE LIVES W/ BISMARK AND SON/HCP RIOS, PT IS INDEP W/ALL CARE AND DENIES USE OF DME OTHER THAN A SHOWER CHAIR, NO HOME SERVICES. PT'S GOAL FOR DC IS HOME SELF-CARE. PT VERIFIES PCP IS PRITI SYLVESTER, COVID VACC X4 AND HCP IS SON RIOS AND COPY ON FILE FROM PREVIOUS VISIT.
--- NOTE | 2022-10-03 10:24 | P.CONCA_ITS ---
History of Present Illness History of Present Illness Date of Service: 10/03/22 Requesting physician: Ron Lama Chief complaint: abnormal ECG. Abdominal pain/nausea Narrative: 71-year-old female with known history of sick sinus syndrome status post pacemaker placement, permanent atrial fibrillation on digoxin 250 mcg daily, metoprolol and Xarelto. She is presenting for lower abdominal pain and vomiting. She was noticed to have diffuse ST depressions on EKG. She has been on digoxin and has chronic changes in EKG due to digitalis use. She is denying any chest discomfort. She has chronic shortness of breath. Clinically does not appear to be in heart failure right now. Her high sensitivity troponin levels are 45.4 and 39.1. She is complaining of lower abdominal pain right now. Urinalysis is showing 1+ blood, nitrite positive, 11-20 wbc's. EKG, labs and imaging reviewed. FORMERLY [facility], [facility] Past Medical History Medical History Cardiac pacemaker in situ COPD (chronic obstructive pulmonary disease) Dyspnea on exertion Exercise hypoxemia GERD (gastroesophageal reflux disease) HTN (hypertension) Hypertension Legally blind On beta mayra at home Persistent atrial fibrillation Pneumonia Retention, urine Sick sinus syndrome Family History Family History Father CHF (congestive heart failure) Cancer Pacemaker Mother Emphysema lung Surgical History Surgical History History of cardioversion History of endoscopy History of esophagogastroduodenoscopy (EGD) History of radiofrequency ablation (RFA) for complex left atrial arrhythmia Hx of cardiac pacemaker Hx of colonoscopy Hx of hysterectomy Social History Social History Household Members: Spouse and Children Housing: House Do you presently have visiting nurse or other home services: Yes ([facility]) Unable to assess alcohol history related to: Unknown Alcohol intake: former Patient Tobacco Use Status: Never used Tobacco Smoked in Last 30 Days: No Use of substances other than those prescribed or required for medical reasons: No Currently Displaying Signs/Symptoms of Drug Intoxication Withdrawal: No Have you been hit, kicked, punched, or otherwise hurt by someone within the past year? If so, by whom?: No Do you feel safe in your current relationship?: Yes Is there a partner from a previous relationship who is making you feel unsafe now?: No Are you made to feel afraid or neglected: No Advance Directives: Yes Advance Directives on File: Yes Advance Directives Date on File: 07/26/22 Do you have thoughts of harming others: None Do you have a plan to hurt others: No Plan Recently lost weight without trying: Yes How much weight loss: 2-13 pounds Eating poorly because of decreased appetite: Yes Nutrition screen score: 4 Nutrition Risks: No Nutritional Risk Patient : No : No Poor oral hygiene: No service: No Meds Allergies Allergy/AdvReac Type Severity Reaction Status Date / Time No Known Allergies Allergy Verified 10/02/22 16:16 [No Known Allergies*] Active Medications: Current Medications Acetaminophen (Acetaminophen 325 Mg Tablet) 650 mg PO Q6H PRN PRN Reason: Pain, Mild (Pain Scale 1-3) Aspirin (Aspirin Enteric Coated 81 Mg Tablet.Dr) 81 mg PO DAILY [facility] Last Admin: 10/03/22 07:59 Dose: 81 mg Docusate Sodium (Docusate Sodium 100 Mg Capsule) 100 mg PO DAILY PRN PRN Reason: Constipation Last Admin: 10/03/22 07:59 Dose: 100 mg Heparin Sodium (Porcine) (Heparin Sodium,Porcine 5,000 Unit/Ml Vial) 1,900 unit 40 unit/kg (1900 unit) IVPUSH PROTOCOL BOLUS PRN; Protocol PRN Reason: 40 unit/kg - Heparin Protocol Last Admin: 10/03/22 05:02 Dose: 1,900 unit Heparin Sodium (Porcine) (Heparin Sodium,Porcine 5,000 Unit/Ml Vial) 3,800 unit 80 unit/kg (3800 unit) IVPUSH PROTOCOL BOLUS PRN; Protocol PRN Reason: 80 unit/kg - Heparin Protocol Heparin Sodium/Sodium Chloride (Heparin Sodium,Porcine/1/2ns) 25,000 unit in 250 mls @ 0 mls/hr IVCONT .Q0M [facility]; Protocol Last Titration: 10/03/22 10:16 Dose: 14 units/kg/hr, 6.73 mls/hr Ceftriaxone Sodium 1 gm/ (Sodium Chloride) 50 mls @ 100 mls/hr IV Q24H [facility] Ondansetron HCl (Ondansetron Hcl 4 Mg/2 Ml Vial) 4 mg IVPUSH Q8H PRN PRN Reason: Nausea and Vomiting Last Admin: 10/03/22 08:00 Dose: 4 mg Sodium Chloride (0.9 % Sodium Chloride Flush 3 Ml Syringe) 3 ml IVFLUSH QSHIFT LUCY Last Admin: 10/03/22 07:51 Dose: Not Given Tramadol HCl (Tramadol Hcl 50 Mg Tablet) 50 mg PO Q4H PRN PRN Reason: Pain, Severe (Pain Scale 7-10) Last Admin: 10/03/22 09:01 Dose: 50 mg Home Medications Medication Instructions Recorded Confirmed Last Taken Type ferrous sulfate 325 mg (65 mg 325 mg PO BID 04/07/20 10/03/22 10/01/22 History iron) tablet folic acid 1 mg tablet 1 mg PO DAILY 04/07/20 10/03/22 10/01/22 History calcium carbonate 200 mg calcium 200 mg PO TID PRN Heartburn 02/10/21 10/03/22 10/01/22 History (500 mg) chewable tablet (Tums) simvastatin 40 mg tablet 40 mg PO BEDTIME 02/10/21 10/03/22 10/01/22 History ascorbic acid (vitamin C) 500 mg 500 mg PO DAILY 03/31/21 10/03/22 10/01/22 History tablet metoprolol succinate 25 mg 25 mg PO BID 12/24/21 10/03/22 10/01/22 History tablet,extended release 24 hr albuterol sulfate 90 mcg/actuation 2 puff inhalation Q6H PRN wheezing 05/12/22 10/03/22 10/01/22 History aerosol inhaler hydrocodone 7.5 mg-acetaminophen 1 tab PO Q6H PRN severe pain 05/12/22 10/03/22 10/01/22 History 325 mg tablet ipratropium 0.5 mg-albuterol 3 mg 3 ml inhalation Q4-6H PRN wheezing 05/12/22 10/03/22 10/01/22 History (2.5 mg base)/3 mL nebulization soln rivaroxaban 20 mg tablet (Xarelto) 20 mg PO DAILY@1700 06/13/22 10/03/22 10/01/22 History zinc sulfate 50 mg zinc (220 mg) 50 mg PO DAILY 10/03/22 10/03/22 10/01/22 History capsule Physical Exam Vital Signs: Vital Signs: Last Vital Signs Temp 97.2 F 10/03/22 07:33 Pulse 87 10/03/22 07:33 Resp 18 10/03/22 07:33 BP 138/86 10/03/22 07:33 Pulse Ox 96 10/03/22 07:33 O2 Del Method Room Air 10/03/22 07:33 BMI result Body Mass Index 21.5 GENERAL APPEARANCE: Frail. Complaining of lower abdominal pain. NECK: no carotid bruit, no jugular venous distention. SKIN: no suspicious lesions, warm and dry. HEART: no murmurs, irregular rate and rhythm. LUNGS: clear to auscultation bilaterally. ABDOMEN: soft, nontender. EXTREMITIES: no edema. PERIPHERAL PULSES: equal. NEUROLOGIC: No gross deficits, AAO X 3 Objective Labs and Meds 10/03/22 05:13 10/03/22 05:13 Lab results: Laboratory Results - last 24 hr 10/02/22 10/02/22 10/02/22 17:01 17:01 17:01 WBC 10.2 RBC 5.58 H D Hgb 16.5 H D Hct 49.9 H D MCV 89.4 MCH 29.6 MCHC 33.1 RDW 15.7 Plt Count 266 MPV 10.1 Immature Gran % (Auto) 0.6 H Neut % (Auto) 75.7 H Lymph % (Auto) 17.2 L [place] % (Auto) 5.7 Eos % (Auto) 0.2 Baso % (Auto) 0.6 Lymph # (Auto) 1.8 [place] # (Auto) 0.6 Eos # (Auto) 0.0 Baso # (Auto) 0.1 Abs Immat Gran (auto) 0.06 H Absolute Neuts (auto) 7.7 Absolute Nucleated RBC 0.000 Nucleated RBC % (auto) 0.0 PT 12.6 INR 1.0 aPTT Heparin Protocol Sodium 140 Potassium 4.2 Chloride 105 Carbon Dioxide 18 L Anion Gap 21 H BUN 38 H Creatinine 0.82 Estim Creat Clear Calc 46.2 Estimated GFR > 60 Random Glucose 111 Lactic Acid Lactic Acid F/U @ 2Hr Calcium 10.1 D Magnesium 2.2 Total Bilirubin 0.3 AST 15 ALT 8 Alkaline Phosphatase 76 Troponin I High Sens B-Natriuretic Peptide Total Protein 6.9 Albumin 3.6 Lipase 13 Urine Color Urine Appearance Urine pH Ur Specific [place] Urine Protein Urine Glucose (UA) Urine Ketones Urine Blood Urine Nitrite Ur Leukocyte Esterase Urine RBC Urine WBC Ur Squamous Epith Cells Urine Bacteria Hyaline Casts COVID-19 ([facility]) COVID-19 Clin Com 10/02/22 10/02/22 10/02/22 17:01 17:01 17:02 WBC RBC Hgb Hct MCV MCH MCHC RDW Plt Count MPV Immature Gran % (Auto) Neut % (Auto) Lymph % (Auto) [place] % (Auto) Eos % (Auto) Baso % (Auto) Lymph # (Auto) [place] # (Auto) Eos # (Auto) Baso # (Auto) Abs Immat Gran (auto) Absolute Neuts (auto) Absolute Nucleated RBC Nucleated RBC % (auto) PT INR aPTT Heparin Protocol Sodium Potassium Chloride Carbon Dioxide Anion Gap BUN Creatinine Estim Creat Clear Calc Estimated GFR Random Glucose Lactic Acid 3.8 H* Lactic Acid F/U @ 2Hr Calcium Magnesium Total Bilirubin AST ALT Alkaline Phosphatase Troponin I High Sens 45.4 H B-Natriuretic Peptide 71 Total Protein Albumin Lipase Urine Color Urine Appearance Urine pH Ur Specific [place] Urine Protein Urine Glucose (UA) Urine Ketones Urine Blood Urine Nitrite Ur Leukocyte Esterase Urine RBC Urine WBC Ur Squamous Epith Cells Urine Bacteria Hyaline Casts COVID-19 ([facility]O) COVID-19 Clin Com 10/02/22 10/02/22 10/02/22 17:35 17:35 19:18 WBC 11.4 H RBC 5.24 Hgb 15.5 Hct 46.2 MCV 88.2 MCH 29.6 MCHC 33.5 RDW 15.8 Plt Count 231 MPV 9.3 L Immature Gran % (Auto) Neut % (Auto) Lymph % (Auto) [place] % (Auto) Eos % (Auto) Baso % (Auto) Lymph # (Auto) [place] # (Auto) Eos # (Auto) Baso # (Auto) Abs Immat Gran (auto) Absolute Neuts (auto) Absolute Nucleated RBC 0.000 Nucleated RBC % (auto) 0.0 PT INR aPTT Heparin Protocol Sodium Potassium Chloride Carbon Dioxide Anion Gap BUN Creatinine Estim Creat Clear Calc Estimated GFR Random Glucose Lactic Acid Lactic Acid F/U @ 2Hr Calcium Magnesium Total Bilirubin AST ALT Alkaline Phosphatase Troponin I High Sens B-Natriuretic Peptide Total Protein Albumin Lipase Urine Color Yellow Urine Appearance Turbid Urine pH 6.0 Ur Specific [place] 1.020 Urine Protein 30 (1+) H Urine Glucose (UA) Negative Urine Ketones 15 Urine Blood Trace H Urine Nitrite Negative Ur Leukocyte Esterase Large (3+) H Urine RBC 6-10 H Urine WBC >50 H Ur Squamous Epith Cells 3-5 Urine Bacteria 4+ Hyaline Casts 6-10 COVID-19 ([facility]) Negative COVID-19 Clin Com See Note 10/02/22 10/02/22 10/02/22 19:18 19:18 19:18 WBC RBC Hgb Hct MCV MCH MCHC RDW Plt Count MPV Immature Gran % (Auto) Neut % (Auto) Lymph % (Auto) [place] % (Auto) Eos % (Auto) Baso % (Auto) Lymph # (Auto) [place] # (Auto) Eos # (Auto) Baso # (Auto) Abs Immat Gran (auto) Absolute Neuts (auto) Absolute Nucleated RBC Nucleated RBC % (auto) PT 12.9 INR 1.1 aPTT Heparin Protocol 31.9 L Sodium Potassium Chloride Carbon Dioxide Anion Gap BUN Creatinine Estim Creat Clear Calc Estimated GFR Random Glucose Lactic Acid Lactic Acid F/U @ 2Hr 2.2 H* Calcium Magnesium Total Bilirubin AST ALT Alkaline Phosphatase Troponin I High Sens B-Natriuretic Peptide Total Protein Albumin Lipase Urine Color Yellow Urine Appearance Hazy Urine pH 6.0 Ur Specific [place] 1.020 Urine Protein 30 (1+) H Urine Glucose (UA) Negative Urine Ketones 40 Urine Blood Small (1+) H Urine Nitrite Positive H Ur Leukocyte Esterase Small (1+) H Urine RBC 3-5 H Urine WBC 11-20 H Ur Squamous Epith Cells 3-5 Urine Bacteria 4+ Hyaline Casts 0-2 COVID-19 ([facility]) COVID-19 Clin Com 10/02/22 10/03/22 10/03/22 20:17 01:30 05:13 WBC 11.8 H RBC 5.10 Hgb 15.2 Hct 46.0 MCV 90.2 MCH 29.8 MCHC 33.0 RDW 15.7 Plt Count 223 MPV 9.5 Immature Gran % (Auto) Neut % (Auto) Lymph % (Auto) [place] % (Auto) Eos % (Auto) Baso % (Auto) Lymph # (Auto) [place] # (Auto) Eos # (Auto) Baso # (Auto) Abs Immat Gran (auto) Absolute Neuts (auto) Absolute Nucleated RBC 0.000 Nucleated RBC % (auto) 0.0 PT INR aPTT Heparin Protocol 44.8 L D Sodium Potassium Chloride Carbon Dioxide Anion Gap BUN Creatinine Estim Creat Clear Calc Estimated GFR Random Glucose Lactic Acid Lactic Acid F/U @ 2Hr Calcium Magnesium Total Bilirubin AST ALT Alkaline Phosphatase Troponin I High Sens 39.1 H B-Natriuretic Peptide Total Protein Albumin Lipase Urine Color Urine Appearance Urine pH Ur Specific [place] Urine Protein Urine Glucose (UA) Urine Ketones Urine Blood Urine Nitrite Ur Leukocyte Esterase Urine RBC Urine WBC Ur Squamous Epith Cells Urine Bacteria Hyaline Casts COVID-19 ([facility]) COVID-19 Clin Com 10/03/22 10/03/22 10/03/22 05:13 05:13 05:13 WBC 12.1 H RBC 5.10 Hgb 15.0 Hct 45.1 MCV 88.4 MCH 29.4 MCHC 33.3 RDW 15.6 Plt Count 208 MPV 9.5 Immature Gran % (Auto) Neut % (Auto) Lymph % (Auto) [place] % (Auto) Eos % (Auto) Baso % (Auto) Lymph # (Auto) [place] # (Auto) Eos # (Auto) Baso # (Auto) Abs Immat Gran (auto) Absolute Neuts (auto) Absolute Nucleated RBC 0.000 Nucleated RBC % (auto) 0.0 PT 13.8 H INR 1.1 aPTT Heparin Protocol Sodium 139 Potassium 3.4 Chloride 110 H Carbon Dioxide 17 L Anion Gap 15 BUN 35 H Creatinine 0.69 Estim Creat Clear Calc 55.9 Estimated GFR > 60 Random Glucose 112 Lactic Acid Lactic Acid F/U @ 2Hr Calcium 8.8 D Magnesium Total Bilirubin AST ALT Alkaline Phosphatase Troponin I High Sens B-Natriuretic Peptide Total Protein Albumin Lipase Urine Color Urine Appearance Urine pH Ur Specific [place] Urine Protein Urine Glucose (UA) Urine Ketones Urine Blood Urine Nitrite Ur Leukocyte Esterase Urine RBC Urine WBC Ur Squamous Epith Cells Urine Bacteria Hyaline Casts COVID-19 ([facility]) COVID-19 Clin Com 10/03/22 09:18 WBC RBC Hgb Hct MCV MCH MCHC RDW Plt Count MPV Immature Gran % (Auto) Neut % (Auto) Lymph % (Auto) [place] % (Auto) Eos % (Auto) Baso % (Auto) Lymph # (Auto) [place] # (Auto) Eos # (Auto) Baso # (Auto) Abs Immat Gran (auto) Absolute Neuts (auto) Absolute Nucleated RBC Nucleated RBC % (auto) PT INR aPTT Heparin Protocol 62.6 D Sodium Potassium Chloride Carbon Dioxide Anion Gap BUN Creatinine Estim Creat Clear Calc Estimated GFR Random Glucose Lactic Acid Lactic Acid F/U @ 2Hr Calcium Magnesium Total Bilirubin AST ALT Alkaline Phosphatase Troponin I High Sens B-Natriuretic Peptide Total Protein Albumin Lipase Urine Color Urine Appearance Urine pH Ur Specific [place] Urine Protein Urine Glucose (UA) Urine Ketones Urine Blood Urine Nitrite Ur Leukocyte Esterase Urine RBC Urine WBC Ur Squamous Epith Cells Urine Bacteria Hyaline Casts COVID-19 ([facility]) COVID-19 Clin Com Imaging Radiologist's impression: Impressions Chest X-Ray 10/02/22 17:10 IMPRESSION: No acute process. Abdomen/Pelvis CT 10/02/22 17:19 IMPRESSION: 1. No acute inflammatory or infectious process. 2. Constipation. 3. Fusiform infrarenal abdominal aortic aneurysm with a maximum diameter 4.5 cm. This is stable compared to the prior exam. Further evaluation is limited due to lack of IV contrast. Recommend followup every 6 months and vascular specialist consultation. Reference: J Am Jeaneth Radiol 2013; 10 (10): 789-794. Assessment and Plan (1) Atrial fibrillation: Status: Acute (2) Abdominal pain: Status: Acute (3) Abnormal EKG: Status: Acute Plan 71-year-old female who is presenting with abdominal pain and nausea. Abdominal pain is in the lower abdomen and she has abnormal urinalysis. I think it is possible these symptoms are due to UTI. She also has been on digoxin 250 mcg daily. Sometime elevated digoxin levels can give very similar symptoms and I would check digoxin level and hold digoxin for now. She had dynamic EKG changes but has abnormal EKG at baseline due to digitalis effect. She has no symptoms currently. I think her metoprolol home dose should be resumed. Repeat EKG to reassess changes. Continue heparin drip for now. Will check echocardiogram to reassess LV function. My clinical impression right now is that the changes are related to digitalis effect. We will follow along with you. Thank you for allowing me to participate in the care of your patient. Please feel free to contact me if you have any questions. Time Spent With Patient Time: Total time managing care of this patient today ____ minutes. Procedures Date of Service Date of Service: 10/03/22
[2022-10-03 11:36] VITALS: BP 147/85; PULSE 90; RESP 17; TEMP 36.3; O2SAT 92
[2022-10-03] MEDS: Metoprolol Tartrate 25 MG TABLET PO (14:26)
[2022-10-03] MEDS: Milk of Magnesia 30 ML ORAL.SUSP PO (14:26)
--- NOTE | 2022-10-03 14:44 | HO.PM.IMPN ---
Subjective Subjective Date of Service: 10/03/22 Interval History: complaining of lower abdominal discomfort, constipation, shortness of breath, no chest pain, no palpitation, no lightheadedness, no dizziness no vomiting.no urinary symptoms. Review of Systems all other system reviewed and negative Physical Exam Vital Signs: Vital Signs: Last Vital Signs Temp 97.3 F 10/03/22 11:36 Pulse 90 10/03/22 11:36 Resp 17 10/03/22 11:36 BP 147/85 H 10/03/22 11:36 Pulse Ox 92 10/03/22 11:36 O2 Del Method Room Air 10/03/22 11:36 BMI result Body Mass Index 21.5 Const: Other: General resting comfortably in no acute distress. Neck supple no JVD. CVS regular rate rhythm, Respiratory lungs clear to auscultation, no respiratory distress, no wheeze, no rhonchi. Gastrointestinal abdomen soft, mold lower abd tenderness, bowel sounds audible, no guarding , no rigidity. Extremities no edema. Neuro nonfocal Skin no rash psych appropriate affect Objective Data Active Medications Acetaminophen (Acetaminophen 325 Mg Tablet) 650 mg PO Q6H PRN PRN Reason: Pain, Mild (Pain Scale 1-3) Albuterol Sulfate (Albuterol Sulfate 90 Mcg 8 Gm Inhaler) 2 puff INHALE RQ6H PRN PRN Reason: wheezing Albuterol/Ipratropium (Albuterol/Iprat 2.5/0.5mg 3 Ml Ampul.Neb) 3 ml INHALE Q4H PRN PRN Reason: wheezing Aspirin (Aspirin Enteric Coated 81 Mg Tablet.) 81 mg PO DAILY [facility] Last Admin: 10/03/22 07:59 Dose: 81 mg Documented By: ADELAIDA Docusate Sodium (Docusate Sodium 100 Mg Capsule) 100 mg PO DAILY PRN PRN Reason: Constipation Last Admin: 10/03/22 07:59 Dose: 100 mg Documented By: ADELAIDA Folic Acid (Folic Acid 1 Mg Tablet) 1 mg PO DAILY [facility] Heparin Sodium (Porcine) (Heparin Sodium,Porcine 5,000 Unit/Ml Vial) 1,900 unit 40 unit/kg (1900 unit) IVPUSH PROTOCOL BOLUS PRN; Protocol PRN Reason: 40 unit/kg - Heparin Protocol Last Admin: 10/03/22 05:02 Dose: 1,900 unit Documented By: BENNY Heparin Sodium (Porcine) (Heparin Sodium,Porcine 5,000 Unit/Ml Vial) 3,800 unit 80 unit/kg (3800 unit) IVPUSH PROTOCOL BOLUS PRN; Protocol PRN Reason: 80 unit/kg - Heparin Protocol Heparin Sodium/Sodium Chloride (Heparin Sodium,Porcine/1/2ns) 25,000 unit in 250 mls @ 0 mls/hr IVCONT .Q0M [facility]; Protocol Last Titration: 10/03/22 10:16 Dose: 14 units/kg/hr, 6.73 mls/hr Documented By: ADELAIDA Co-signed By: MATEUS Ceftriaxone Sodium 1 gm/ (Sodium Chloride) 50 mls @ 100 mls/hr IV Q24H [facility] Magnesium Hydroxide (Milk Of Magnesia 30 Ml Oral.Susp) 30 ml PO DAILY PRN PRN Reason: Constipation Last Admin: 10/03/22 14:26 Dose: 30 ml Documented By: ADELAIDA Metoprolol Succinate (Metoprolol Succinate Er 25 Mg Tab.Er.24h) 25 mg PO BID [facility]; Protocol Omeprazole (Omeprazole 20 Mg Capsule.Dr) 20 mg PO DAILY@0630 [facility] Ondansetron HCl (Ondansetron Hcl 4 Mg/2 Ml Vial) 4 mg IVPUSH Q8H PRN PRN Reason: Nausea and Vomiting Last Admin: 10/03/22 08:00 Dose: 4 mg Documented By: ADELAIDA Sodium Chloride (0.9 % Sodium Chloride Flush 3 Ml Syringe) [address] [facility] Last Admin: 10/03/22 07:51 Dose: Not Given Documented By: ADELAIDA Non-Admin Reason: IV Running Tramadol HCl (Tramadol Hcl 50 Mg Tablet) 50 mg PO Q4H PRN PRN Reason: Pain, Severe (Pain Scale 7-10) Last Admin: 10/03/22 13:50 Dose: 50 mg Documented By: ADELAIDA Labs 10/03/22 05:13 10/03/22 05:13 Labs: Laboratory Results - last 24 hr 10/02/22 10/02/22 10/02/22 17:01 17:01 17:01 MCV 89.4 MCH 29.6 MCHC 33.1 RDW 15.7 Plt Count 266 MPV 10.1 Immature Gran % (Auto) 0.6 H Neut % (Auto) 75.7 H Lymph % (Auto) 17.2 L [place] % (Auto) 5.7 Eos % (Auto) 0.2 Baso % (Auto) 0.6 Lymph # (Auto) 1.8 [place] # (Auto) 0.6 Eos # (Auto) 0.0 Baso # (Auto) 0.1 Abs Immat Gran (auto) 0.06 H Absolute Neuts (auto) 7.7 Absolute Nucleated RBC 0.000 Nucleated RBC % (auto) 0.0 PT 12.6 INR 1.0 aPTT Heparin Protocol Anion Gap 21 H Estim Creat Clear Calc 46.2 Estimated GFR > 60 Random Glucose 111 Lactic Acid Lactic Acid F/U @ 2Hr Calcium 10.1 D Magnesium 2.2 Total Bilirubin 0.3 AST 15 ALT 8 Alkaline Phosphatase 76 B-Natriuretic Peptide Total Protein 6.9 Albumin 3.6 Lipase 13 Urine Color Urine Appearance Urine pH Ur Specific Kila Urine Protein Urine Glucose (UA) Urine Ketones Urine Blood Urine Nitrite Ur Leukocyte Esterase Urine RBC Urine WBC Ur Squamous Epith Cells Urine Bacteria Hyaline Casts Digoxin COVID-19 ([facility]) COVID-19 [facility] 10/02/22 10/02/22 10/02/22 17:01 17:02 17:35 MCV MCH MCHC RDW Plt Count MPV Immature Gran % (Auto) Neut % (Auto) Lymph % (Auto) [place] % (Auto) Eos % (Auto) Baso % (Auto) Lymph # (Auto) [place] # (Auto) Eos # (Auto) Baso # (Auto) Abs Immat Gran (auto) Absolute Neuts (auto) Absolute Nucleated RBC Nucleated RBC % (auto) PT INR aPTT Heparin Protocol Anion Gap Estim Creat Clear Calc Estimated GFR Random Glucose Lactic Acid 3.8 H* Lactic Acid F/U @ 2Hr Calcium Magnesium Total Bilirubin AST ALT Alkaline Phosphatase B-Natriuretic Peptide 71 Total Protein Albumin Lipase Urine Color Urine Appearance Urine pH Ur Specific Kila Urine Protein Urine Glucose (UA) Urine Ketones Urine Blood Urine Nitrite Ur Leukocyte Esterase Urine RBC Urine WBC Ur Squamous Epith Cells Urine Bacteria Hyaline Casts Digoxin COVID-19 (ELO) Negative COVID-19 [facility] See Note 10/02/22 10/02/22 10/02/22 17:35 19:18 19:18 MCV 88.2 MCH 29.6 MCHC 33.5 RDW 15.8 Plt Count 231 MPV 9.3 L Immature Gran % (Auto) Neut % (Auto) Lymph % (Auto) [place] % (Auto) Eos % (Auto) Baso % (Auto) Lymph # (Auto) [place] # (Auto) Eos # (Auto) Baso # (Auto) Abs Immat Gran (auto) Absolute Neuts (auto) Absolute Nucleated RBC 0.000 Nucleated RBC % (auto) 0.0 PT 12.9 INR 1.1 aPTT Heparin Protocol 31.9 L Anion Gap Estim Creat Clear Calc Estimated GFR Random Glucose Lactic Acid Lactic Acid F/U @ 2Hr Calcium Magnesium Total Bilirubin AST ALT Alkaline Phosphatase B-Natriuretic Peptide Total Protein Albumin Lipase Urine Color Yellow Urine Appearance Turbid Urine pH 6.0 Ur Specific Kila 1.020 Urine Protein 30 (1+) H Urine Glucose (UA) Negative Urine Ketones 15 Urine Blood Trace H Urine Nitrite Negative Ur Leukocyte Esterase Large (3+) H Urine RBC 6-10 H Urine WBC >50 H Ur Squamous Epith Cells 3-5 Urine Bacteria 4+ Hyaline Casts 6-10 Digoxin COVID-19 ([facility]) COVID-19 Clin [facility] 10/02/22 10/02/22 10/03/22 19:18 19:18 01:30 MCV MCH MCHC RDW Plt Count MPV Immature Gran % (Auto) Neut % (Auto) Lymph % (Auto) [place] % (Auto) Eos % (Auto) Baso % (Auto) Lymph # (Auto) [place] # (Auto) Eos # (Auto) Baso # (Auto) Abs Immat Gran (auto) Absolute Neuts (auto) Absolute Nucleated RBC Nucleated RBC % (auto) PT INR aPTT Heparin Protocol 44.8 L D Anion Gap Estim Creat Clear Calc Estimated GFR Random Glucose Lactic Acid Lactic Acid F/U @ 2Hr 2.2 H* Calcium Magnesium Total Bilirubin AST ALT Alkaline Phosphatase B-Natriuretic Peptide Total Protein Albumin Lipase Urine Color Yellow Urine Appearance Hazy Urine pH 6.0 Ur Specific Kila 1.020 Urine Protein 30 (1+) H Urine Glucose (UA) Negative Urine Ketones 40 Urine Blood Small (1+) H Urine Nitrite Positive H Ur Leukocyte Esterase Small (1+) H Urine RBC 3-5 H Urine WBC 11-20 H Ur Squamous Epith Cells 3-5 Urine Bacteria 4+ Hyaline Casts 0-2 Digoxin COVID-19 (ELO) COVID-19 [facility] 10/03/22 10/03/22 10/03/22 05:13 05:13 05:13 MCV 90.2 88.4 MCH 29.8 29.4 MCHC 33.0 33.3 RDW 15.7 15.6 Plt Count 223 208 MPV 9.5 9.5 Immature Gran % (Auto) Neut % (Auto) Lymph % (Auto) [place] % (Auto) Eos % (Auto) Baso % (Auto) Lymph # (Auto) [place] # (Auto) Eos # (Auto) Baso # (Auto) Abs Immat Gran (auto) Absolute Neuts (auto) Absolute Nucleated RBC 0.000 0.000 Nucleated RBC % (auto) 0.0 0.0 PT INR aPTT Heparin Protocol Anion Gap 15 Estim Creat Clear Calc 55.9 Estimated GFR > 60 Random Glucose 112 Lactic Acid Lactic Acid F/U @ 2Hr Calcium 8.8 D Magnesium Total Bilirubin AST ALT Alkaline Phosphatase B-Natriuretic Peptide Total Protein Albumin Lipase Urine Color Urine Appearance Urine pH Ur Specific [place] Urine Protein Urine Glucose (UA) Urine Ketones Urine Blood Urine Nitrite Ur Leukocyte Esterase Urine RBC Urine WBC Ur Squamous Epith Cells Urine Bacteria Hyaline Casts Digoxin COVID-19 (ELO) COVID-19 [facility] 10/03/22 10/03/22 10/03/22 05:13 05:13 09:18 MCV MCH MCHC RDW Plt Count MPV Immature Gran % (Auto) Neut % (Auto) Lymph % (Auto) [place] % (Auto) Eos % (Auto) Baso % (Auto) Lymph # (Auto) [place] # (Auto) Eos # (Auto) Baso # (Auto) Abs Immat Gran (auto) Absolute Neuts (auto) Absolute Nucleated RBC Nucleated RBC % (auto) PT 13.8 H INR 1.1 aPTT Heparin Protocol 62.6 D Anion Gap Estim Creat Clear Calc Estimated GFR Random Glucose Lactic Acid Lactic Acid F/U @ 2Hr Calcium Magnesium Total Bilirubin AST ALT Alkaline Phosphatase B-Natriuretic Peptide Total Protein Albumin Lipase Urine Color Urine Appearance Urine pH Ur Specific [place] Urine Protein Urine Glucose (UA) Urine Ketones Urine Blood Urine Nitrite Ur Leukocyte Esterase Urine RBC Urine WBC Ur Squamous Epith Cells Urine Bacteria Hyaline Casts Digoxin Cancelled COVID-19 ([facility]) COVID-19 [facility] Microbiology Microbiology Results: Microbiology 10/02/22 Unknown Urine Culture - Preliminary Urine Catheterized - Cadet Catheter Assessment and Plan (1) Abnormal EKG: Status: Acute (2) Abdominal pain: Status: Acute (3) Acute UTI: Status: Acute Plan 71-year-old female with a PMH significant for?persistent AFib on Xarelto, CKD 3, AAA followed by [facility], COPD not on home O2, GERD, hx uterine cancer, HLD, HTN, chronic indwelling Cadet catheter d/t neurogenic bladder, and sick sinus syndrome with pacemaker in-situ who presents to the ED with?abdominal pain, nausea, vomiting, and increased shortness of breath. Pt will be admitted to the hospital on telemetry for treatment, further evaluation, and close monitoring of NSTEMI.? NSTEMI EKG?with evidence of increased ST depressions in mary alice- lateral leads Initial troponin 45.4, repeat 39. chronically elevated troponin patient denies chest pain has chronic shortness of breath Patient asymptomatic: Denies chest pain/pressure, palpitations will continue iv heparin drip, Aspirin, statin and resume home dose of metoprolol, Echo showed EF 60-65% no wall motion abnormality noted, diastolic function is indeterminate case discussed with Dr. Mccarthy since patient has significant EKG changes will continue IV heparin and medical management for now,obtain digoxin level ,question EKG changes secondary to digoxin. Since patient asymptomatic with no chest pain. Chronic abdominal pain Unclear etiology, CT of abdomen/pelvis negative for acute abdomen, question related to UTI or constipation will placed on stool softeners treat UTI follow clinical course Analgesics for pain management Lactic acidosis, resolved Lactic acid 3.8 with repeat 2.2 Likely secondary to mild dehydration due to decreased p.o. intake and GI losses Acute anion gap metabolic acidosis likely due to elevated lactic acid resolved will follow BMP. UTI likely due to chronic indwelling Cadet catheter UA positive for UTI chronic mild leukocytosis unchanged. Ceftriaxone 1 g IV q.d., started 10/02/2022 follow urine and blood cultures Abdominal aortic aneurysm CT of abdomen pelvis found AAA with maximal diameter 4.5 cm, stable compared to prior exam Should follow up outpatient with vascular surgery every 6 months Persistent AFib Continue metoprolol, hold digoxin follow digoxin level, Hold Xarelto since on heparin Neurogenic bladder Chronic indwelling Cadet catheter, continue COPD Not in acute exacerbation, Continue home inhalers HLD Continue statin GERD PPI Full Code DVT Prophylaxis: On heparin drip Pt will require continued inpatient hospitalization for abnormal EKG abdominal pain and UTI on IV antibiotics. Time Spent With Patient Time: Total time managing care of this patient today ____ minutes. Quality Stroke Does the patient have a stroke diagnosis?: No VTE Prior VTE?: No VTE Risk Level:: Medical - moderate - high VTE Device Contraindication: Treatment Not Indicated VTE Drug Contraindication: N/A - Med Ordered
[2022-10-03 15:10] VITALS: BP 125/89; PULSE 77; RESP 17; TEMP 36.5; O2SAT 94
[2022-10-03] MEDS: cefTRIAXone sodium 1 GM in 0.9 % Sodium Chloride 50 ML IV (16:35)
[2022-10-03 17:15] LABS: PTT Heparin Drip 64.2 SEC (53-77.9)
[2022-10-03 17:16] LABS: Digoxin 1.4 ng/mL (0.8-2.0)
[2022-10-03] MEDS: Famotidine 20 MG TABLET PO (17:17)
[2022-10-03] MEDS: Magnesium Hydrox/Alum Hydrox 30 ML ORAL.SUSP PO (18:24)
[2022-10-03 18:59] VITALS: BP 151/86; PULSE 58; RESP 20; TEMP 36.8; O2SAT 98
[2022-10-03] MEDS: Metoprolol Succinate ER 25 MG TAB.ER.24H PO (19:58)
[2022-10-03] MEDS: Heparin Sodium,Porcine/1/2NS 25,000 UNIT/250 ML IV.SOLN 6.73 UNIT IVCONT (22:13)
[2022-10-04] VITALS: BP 114/80; PULSE 62; RESP 15; TEMP 36.9; O2SAT 98
[2022-10-04] MEDS: 0.9 % Sodium Chloride Flush 3 ML SYRINGE IVFLUSH ×4 (01:17→20:37)
[2022-10-04 04:00] VITALS: BP 121/72; PULSE 68; RESP 15; TEMP 36.6; O2SAT 98
[2022-10-04] MEDS: traMADoL HCL 50 MG TABLET PO ×2 (06:08→16:05)
[2022-10-04 06:18] LABS: Anion Gap 14 (12-20); Blood Urea Nitrogen 30 mg/dL (9-16); Calcium 8.1 mg/dL (8.4-10.2); Carbon Dioxide 21 mmol/L (22-29); Chloride 108 mmol/L (96-108); Creatinine Clr Calc Pharmacy 61.8; Estimated Glomerular Filt Rate > 60; Glucose Random 112 mg/dL (60-115); Potassium 3.3 mmol/L (3.3-5.1); Sodium 140 mmol/L (135-145)
[2022-10-04 06:27] LABS: PTT Heparin Drip 67.4 SEC (53-77.9)
[2022-10-04 07:49] VITALS: BP 110/73; PULSE 64; RESP 20; TEMP 36.2; O2SAT 97
[2022-10-04] MEDS: Aspirin Enteric Coated 81 MG TABLET.DR PO (08:25)
[2022-10-04] MEDS: Docusate Sodium 100 MG CAPSULE PO (08:25)
[2022-10-04] MEDS: Metoprolol Succinate ER 25 MG TAB.ER.24H PO ×2 (08:25→20:37)
[2022-10-04] MEDS: Folic Acid 1 MG TABLET PO (08:25)
[2022-10-04] MEDS: Lactulose 20 GM/30 ML SOLUTION 10 GM PO (11:22)
[2022-10-04 11:23] VITALS: BP 124/78; PULSE 62; RESP 20; TEMP 36.4; O2SAT 98
[2022-10-04] MEDS: Magnesium Hydrox/Alum Hydrox 30 ML ORAL.SUSP PO ×2 (11:24→18:16)
--- NOTE | 2022-10-04 11:25 | PM.PNCARD ---
Subjective Subjective Date of Service: 10/04/22 Interval history: Seen examined at bedside. Digoxin level 1.4. Digoxin has been discontinued. She is feeling better after starting antibiotics. Denying any significant symptoms today. I think she does not have ACS. I think the EKG changes are related to digitalis effect. Physical Exam Vital Signs: Last Vital Signs Temp 97.6 F 10/04/22 11:23 Pulse 62 10/04/22 11:23 Resp 20 10/04/22 11:23 BP 124/78 10/04/22 11:23 Pulse Ox 98 10/04/22 11:23 O2 Del Method Room Air 10/04/22 11:23 BMI result Body Mass Index 21.5 GENERAL APPEARANCE: Frail. In no distress. NECK: no carotid bruit, no jugular venous distention. SKIN: no suspicious lesions, warm and dry. HEART: no murmurs, irregular rate and rhythm. LUNGS: clear to auscultation bilaterally. ABDOMEN: soft, nontender. EXTREMITIES: no edema. PERIPHERAL PULSES: equal. NEUROLOGIC: No gross deficits, AAO X 3 Objective Labs and Meds 10/03/22 05:13 10/04/22 05:47 Lab results: Laboratory Results - last 24 hr 10/03/22 10/03/22 10/03/22 05:13 16:39 16:39 aPTT Heparin Protocol 64.2 Sodium Potassium Chloride Carbon Dioxide Anion Gap BUN Creatinine Estim Creat Clear Calc Estimated GFR Random Glucose Calcium Digoxin Cancelled 1.4 10/04/22 10/04/22 05:47 05:47 aPTT Heparin Protocol 67.4 Sodium 140 Potassium 3.3 Chloride 108 Carbon Dioxide 21 L Anion Gap 14 BUN 30 H Creatinine 0.65 Estim Creat Clear Calc 61.8 Estimated GFR > 60 Random Glucose 112 Calcium 8.1 L D Digoxin Progress Note: A&P Assessment and plan (1) Abnormal EKG: Status: Acute (2) Acute UTI: Status: Acute Plan 71-year-old female presenting for abdominal pain and nausea. She has been diagnosed with UTI. Her digoxin level is 1.4. Digoxin level more than 1 is associated with arrhythmia related deaths. I think digoxin should be discontinued for now. If she requires digoxin in the future that should be used at 125 mcg on Monday and Monday. EKG changes are due to digitalis effect. Not ACS. Heparin has been discontinued. Xarelto can be resumed. Once stable can be discharged home. Thank you for allowing me to participate in the care of your patient. Please feel free to contact me if you have any questions. Time Spent With Patient Time: Total time managing care of this patient today ____ minutes. Progress Note: Quality Stroke Does the patient have a stroke diagnosis?: No Procedures Date of Service Date of Service: 10/04/22
[2022-10-04 15:04] VITALS: BP 96/65; PULSE 72; RESP 13; TEMP 35.9; O2SAT 98
--- NOTE | 2022-10-04 15:23 | HO.PM.IMPN ---
Subjective Subjective Date of Service: 10/04/22 Interval History: Feeling better this morning denies nausea, no bowel movement since admission, denies urinary symptoms of urgency or frequency, denies chest pain, no shortness of breath, no chest pain, no other acute issues overnight. Review of Systems All other system reviewed and negative. Physical Exam Vital Signs: Vital Signs: Last Vital Signs Temp 96.7 F L 10/04/22 15:04 Pulse 72 10/04/22 15:04 Resp 13 10/04/22 15:04 BP 96/65 10/04/22 15:04 Pulse Ox 98 10/04/22 15:04 O2 Del Method Room Air 10/04/22 15:04 BMI result Body Mass Index 21.5 Const: Other: General? resting comfortably in no acute distress.? Neck supple no JVD. CVS? regular rate rhythm, Respiratory lungs clear to auscultation, no respiratory distress, no wheeze, no rhonchi. Gastrointestinal abdomen soft, no lower abd tenderness, bowel sounds audible, no guarding , no rigidity. Extremities no? edema. Neuro nonfocal Skin no rash psych appropriate affect Objective Data Active Medications Acetaminophen (Acetaminophen 325 Mg Tablet) 650 mg PO Q6H PRN PRN Reason: Pain, Mild (Pain Scale 1-3) Al Hydroxide/Mg Hydroxide (Magnesium Hydrox/Alum Hydrox 30 Ml Oral.Susp) 30 ml PO Q6H PRN PRN Reason: Heartburn Last Admin: 10/04/22 11:24 Dose: 30 ml Documented By: ADELAIDA Albuterol Sulfate (Albuterol Sulfate 90 Mcg 8 Gm Inhaler) 2 puff INHALE RQ6H PRN PRN Reason: wheezing Albuterol/Ipratropium (Albuterol/Iprat 2.5/0.5mg 3 Ml Ampul.Neb) 3 ml INHALE Q4H PRN PRN Reason: wheezing Aspirin (Aspirin Enteric Coated 81 Mg Tablet.) 81 mg PO DAILY [facility] Last Admin: 10/04/22 08:25 Dose: 81 mg Documented By: ADELAIDA Dicyclomine HCl (Dicyclomine Hcl 10 Mg Capsule) 10 mg PO TIDAC PRN PRN Reason: abdominal pain Docusate Sodium (Docusate Sodium 100 Mg Capsule) 100 mg PO DAILY PRN PRN Reason: Constipation Last Admin: 10/04/22 08:25 Dose: 100 mg Documented By: ADELAIDA Folic Acid (Folic Acid 1 Mg Tablet) 1 mg PO DAILY [facility] Last Admin: 10/04/22 08:25 Dose: 1 mg Documented By: ADELAIDA Ceftriaxone Sodium 1 gm/ (Sodium Chloride) 50 mls @ 100 mls/hr IV Q24H [facility] Last Infusion: 10/03/22 17:05 Dose: 0 mls/hr Documented By: ADELAIDA Magnesium Hydroxide (Milk Of Magnesia 30 Ml Oral.Susp) 30 ml PO DAILY PRN PRN Reason: Constipation Last Admin: 10/03/22 14:26 Dose: 30 ml Documented By: ADELAIDA Metoprolol Succinate (Metoprolol Succinate Er 25 Mg Tab.Er.24h) 25 mg PO BID [facility]; Protocol Last Admin: 10/04/22 08:25 Dose: 25 mg Documented By: ADELAIDA Omeprazole (Omeprazole 20 Mg Capsule.Dr) 20 mg PO DAILY@0630 [facility] Last Admin: 10/04/22 06:03 Dose: Not Given Documented By: HAFSA Non-Admin Reason: Patient Refused Ondansetron HCl (Ondansetron Hcl 4 Mg/2 Ml Vial) 4 mg IVPUSH Q8H PRN PRN Reason: Nausea and Vomiting Last Admin: 10/03/22 08:00 Dose: 4 mg Documented By: ADELAIDA Rivaroxaban (Rivaroxaban 20 Mg Tablet) 20 mg PO DAILY [facility] Sodium Chloride (0.9 % Sodium Chloride Flush 3 Ml Syringe) 3 ml IVFLUSH QSHIFT [facility] Last Admin: 10/04/22 08:25 Dose: 3 ml Documented By: ADELAIDA Tramadol HCl (Tramadol Hcl 50 Mg Tablet) 50 mg PO Q4H PRN PRN Reason: Pain, Severe (Pain Scale 7-10) Last Admin: 10/04/22 06:08 Dose: 50 mg Documented By: HAFSA Labs 10/03/22 05:13 10/04/22 05:47 Labs: Laboratory Results - last 24 hr 10/03/22 10/03/22 10/04/22 16:39 16:39 05:47 aPTT Heparin Protocol 64.2 67.4 Anion Gap Estim Creat Clear Calc Estimated GFR Random Glucose Calcium Digoxin 1.4 10/04/22 05:47 aPTT Heparin Protocol Anion Gap 14 Estim Creat Clear Calc 61.8 Estimated GFR > 60 Random Glucose 112 Calcium 8.1 L D Digoxin Microbiology Microbiology Results: Microbiology 10/02/22 Unknown Urine Culture - Final Urine Catheterized - Cadet Catheter 10/02/22 17:04 Blood Culture - Preliminary Blood - Venous No growth after 24 hours. 10/02/22 17:01 Blood Culture - Preliminary Blood - Venous No growth after 24 hours. Assessment and Plan (1) Abnormal EKG: Status: Acute (2) Abdominal pain: Status: Acute (3) Acute UTI: Status: Acute Plan 71-year-old female with a PMH significant for?persistent AFib on Xarelto, CKD 3, AAA followed by [facility], COPD not on home O2, GERD, hx uterine cancer, HLD, HTN, chronic indwelling Cadet catheter d/t neurogenic bladder, and sick sinus syndrome with pacemaker in-situ who presents to the ED with?abdominal pain, nausea, vomiting, and increased shortness of breath. Pt will be admitted to the hospital on telemetry for treatment, further evaluation, and close monitoring of NSTEMI.? NSTEMI No chest pain no palpitation EKG changes likely due to digoxin Initial troponin 45.4, repeat 39. chronically elevated troponin patient denies chest pain has chronic shortness of breath Patient asymptomatic: Denies chest pain/pressure, palpitations Case discussed with Dr. Mccarthy he recommend to dc iv heparin drip, and to DC digoxin at patient noted to have elevated heart rate will consider digoxin low-dose every other day Will continue Aspirin, statin and metoprolol, Echo showed EF 60-65% no wall motion abnormality noted, diastolic function is indeterminate Chronic abdominal pain Abdominal pain resolved, CT of abdomen/pelvis negative for acute abdomen, question related to UTI or constipation will placed on stool softeners treat UTI follow clinical course Lactic acidosis, resolved Lactic acid 3.8 with repeat 2.2 Likely secondary to mild dehydration due to decreased p.o. intake and GI losses Acute anion gap metabolic acidosis likely due to elevated lactic acid resolved will follow BMP. UTI likely due to chronic indwelling Cadet catheter UA positive for UTI chronic mild leukocytosis unchanged. Ceftriaxone 1 g IV q.d., started 10/02/2022 urine culture grew greater than 100,000 mixed bacterial cassius, blood cultures x2 negative. If blood cultures remain negative after 48 hours will DC antibiotics Abdominal aortic aneurysm CT of abdomen pelvis found AAA with maximal diameter 4.5 cm, stable compared to prior exam follow up outpatient with vascular surgery every 6 months Persistent AFib Continue metoprolol, dc digoxin , digoxin level 1.4 , as per Cardiology digoxin level greater than 1 is associated with arrhythmia as related test therefore he recommend to discontinue digoxin for now and monitor patient closely If noted to have elevated heart rate he recommend low-dose Coumadin every other day Neurogenic bladder Chronic indwelling Cadet catheter, continue COPD Not in acute exacerbation, Continue home inhalers HLD Continue statin GERD PPI Full Code DVT Prophylaxis: On xarelto Pt will require continued inpatient hospitalization for abnormal EKG abdominal pain and UTI on IV antibiotics. Time Spent With Patient Time: Total time managing care of this patient today ____ minutes. Quality Stroke Does the patient have a stroke diagnosis?: No VTE Prior VTE?: No VTE Risk Level:: Medical - moderate - high VTE Device Contraindication: Treatment Not Indicated VTE Drug Contraindication: N/A - Med Ordered
[2022-10-04] MEDS: ondansetron HCL 4 MG/2 ML VIAL IVPUSH (16:09)
[2022-10-04] MEDS: cefTRIAXone sodium 1 GM in 0.9 % Sodium Chloride 50 ML IV (17:48)
[2022-10-04 19:39] VITALS: BP 124/74; PULSE 62; RESP 14; TEMP 36.7; O2SAT 97
[2022-10-04] MEDS: Dicyclomine HCl 10 MG CAPSULE PO (20:49)
[2022-10-05] VITALS: BP 110/67; PULSE 64; RESP 15; TEMP 36.4; O2SAT 98
--- NOTE | 2022-10-05 | ECG_ITS ---
Test Reason : cp Blood Pressure : / mmHG Vent. Rate : 060 BPM Atrial Rate : 277 BPM P-R Int : 000 ms QRS Dur : 160 ms QT Int : 482 ms P-R-T Axes : 000 -72 101 degrees QTc Int : 482 ms Ventricular-paced rhythm Abnormal ECG When compared with ECG of 03-OCT-2022 08:28, Electronic ventricular pacemaker has replaced Atrial fibrillation Referred By: Ron Lama Electronically Signed By:ANTONIA JERONIMO
--- NOTE | 2022-10-05 | ECG_ITS ---
Test Reason : reaccess st changes Blood Pressure : / mmHG Vent. Rate : 062 BPM Atrial Rate : 000 BPM P-R Int : 000 ms QRS Dur : 084 ms QT Int : 382 ms P-R-T Axes : 000 -14 239 degrees QTc Int : 387 ms Atrial fibrillation with frequent ventricular-paced complexes ST & T wave abnormality, consider inferior ischemia ST & T wave abnormality, consider anterolateral ischemia Abnormal ECG When compared with ECG of 05-OCT-2022 08:04, Vent. rate has increased BY 2 BPM Referred By: Pedro Mccarthy Electronically Signed By:ANTONIA JERONIMO
[2022-10-05] MEDS: traMADoL HCL 50 MG TABLET PO (00:21)
[2022-10-05 04:00] VITALS: BP 103/71; PULSE 60; RESP 14; TEMP 36.6; O2SAT 97
[2022-10-05] MEDS: Omeprazole 20 MG CAPSULE.DR PO (05:10)
[2022-10-05 07:37] VITALS: BP 107/66; PULSE 59; RESP 20; TEMP 36.4; O2SAT 98
[2022-10-05] MEDS: Rivaroxaban 20 MG TABLET PO (09:05)
[2022-10-05] MEDS: Folic Acid 1 MG TABLET PO (09:05)
[2022-10-05] MEDS: Aspirin Enteric Coated 81 MG TABLET.DR PO (09:05)
[2022-10-05] MEDS: 0.9 % Sodium Chloride Flush 3 ML SYRINGE IVFLUSH (09:05)
[2022-10-05] MEDS: Metoprolol Succinate ER 25 MG TAB.ER.24H PO (09:06)
[2022-10-05] MEDS: Magnesium Hydrox/Alum Hydrox 30 ML ORAL.SUSP PO (10:23)
--- NOTE | 2022-10-05 10:56 | P.DS_ITS ---
DS: Providers Provider Date of Service: 10/05/22 Date of admission: 10/02/22 20:02 Primary care physician: Raffy Orona MD Consults: 10/02/22 20:01 Consult to Cardiology Routine Consulting Provider: [facility] Cardiovascular Services Reason for consultation: NSTEMI DS: Diagnosis Discharge Diagnosis (1) Abnormal EKG: Status: Acute (2) Abdominal pain: Status: Acute (3) Acute UTI: Status: Acute DS: Summary Hospital Course Hospital Course: Date of Service: 10/02/22 Attending physician on admission: Rosalia Wren Chief Complaint: Abdominal pain, N/V, generalized weakness Pt is a 71-year-old female with a PMH significant for?persistent AFib on Xarelto, CKD 3, AAA followed by [facility], COPD not on home O2, GERD, hx uterine cancer, HLD, HTN, chronic indwelling Abdi catheter d/t neurogenic bladder, and sick sinus syndrome with pacemaker in-situ who presents to the ED with?abdominal pain, nausea, vomiting, and increased shortness of breath.? Patient states she has had chronic lower abdominal pain since June when she had a C-diff infection. Pain increased yesterday when she experienced nausea and vomiting, and felt generally unwell. Patient presents to the emergency room today because ?I just do not feel right.?? Patient denies chest pain/pressure, palpitations.? Chills but no fever.? Has also been having constipation lately, normally has bowel movement daily but last one was 2-3 days ago. In the ED patient was afebrile but tachycardic up to 109 and slightly hypertensive 139/91. Labs were significant for BUN 39, lactic acid 3.9, initial troponin 45.4.? Electrolytes WNL.? Hepatic function baseline.? BNP WNL at 71.? UA positive for UTI. CXR showed no acute cardiopulmonary process. CT?abdomen and pelvis found no acute inflammatory or infectious process, but did show constipation and infrarenal abdominal aortic aneurysm with maximum diameter of 4.5 cm that is stable compared to prior exam. EKG demonstrated AFib with RVR of [address] depression in the anterior lateral leads. Pt was treated with ceftriaxone, metoprolol, aspirin, atorvastatin, museum hydroxide, IVF, and started on a heparin drip. Pt will be admitted to the hospital on telemetry for treatment, further evaluation, and close monitoring of NSTEMI. Hospital course: 71-year-old female with a PMH significant for?persistent AFib on Xarelto, CKD 3, AAA followed by [facility], COPD not on home O2, GERD, hx uterine cancer, HLD, HTN, chronic indwelling Abdi catheter d/t neurogenic bladder, and sick sinus syndrome with pacemaker in-situ who presents to the ED with?abdominal pain, nausea, vomiting, and increased shortness of breath. Pt will be admitted to the hospital on telemetry for treatment, further evaluation, and close monitoring of NSTEMI.? Admitted to telemetry unit with a diagnosis of NSTEMI due to significant EKG changes suggestive of inferior lateral ischemia, patient had no chest pain, troponins were mildly elevated but noted to have chronic troponin elevation patient initially treated with IV heparin, statin and beta-blockers, echo showed no wall motion abnormality EF 60-65%, seen by Dr. Mccarthy from Cardiology he felt patient EKG changes due to digoxin, digoxin level was 1.4 he recommended to stop digoxin as well as heparin patient remains hemodynamically stable. Patient presented with abdominal pain nausea and vomiting ,CT of abdomen/pelvis negative for acute abdomen, acute abdominal likely her symptoms were due to digoxin, patient also on multiple medications that would contribute to constipation including iron supplements, calcium and narcotics strongly recommend to minimize use of narcotics and to take Metamucil daily also discuss with PCP regarding continued use of iron supplements since noted to have normal hematocrit , patient treated with antiemetics and stool softeners or abdominal pain has resolved with no further episode of nausea vomiting. Lactic acidosis, resolved , Likely secondary to mild dehydration due to decreased p.o. intake and GI losses. Acute anion gap metabolic acidosis likely due to elevated lactic acid resolved with IV fluids. UTI likely due to chronic indwelling Abdi catheter, UA positive for UTI, chronic mild leukocytosis unchanged, patient treated with IV ceftriaxone however urine culture grew greater than 100,000 mixed bacterial cassius, blood cultures x2 negative, patient received 3 days of IV antibiotic does not require further antibiotics recommend to change Abdi catheter acute 30 days In regard to Persistent AFib recommend to continue metoprolol and Xarelto, will discontinue digoxin. Patient has chronic indwelling Abdi catheter for Neurogenic bladder, recommend Abdi changed q 30 days In regard to all other chronic problems including hyperlipidemia, GERD and COPD recommend to continue all home medications. Time Spent with Patient Time attestation: Total time managing care of this patient today ____ minutes. Discharge coordination time: Greater than 30 minutes Quality: Safe Use of Opioids Does Pt have an Active Cancer Diagnosis on the Problem List?: No Quality: Stroke Does the patient have a stroke diagnosis?: No Physical Exam Vital Signs: Vital Signs: Last Vital Signs Temp 97.6 F 10/05/22 07:37 Pulse 59 10/05/22 07:37 Resp 20 10/05/22 07:37 BP 107/66 10/05/22 07:37 Pulse Ox 98 10/05/22 07:37 O2 Del Method Room Air 10/05/22 07:37 BMI result Body Mass Index 21.5 Const: Other: General? resting comfortably in no acute distress.? Neck supple no JVD. CVS? regular rate rhythm, Respiratory lungs clear to auscultation, no respiratory distress, no wheeze, no rhonchi. Gastrointestinal abdomen soft, no lower abd tenderness, bowel sounds audible, no guarding , no rigidity. Extremities no? edema. Neuro non focal Skin no rash psych appropriate affect DS: Data Data Completed and Pending Labs on day of discharge: Preliminary micro results at discharge 10/02/22 17:04 Blood Culture - Preliminary Blood - Venous No growth after 48 hours. 10/02/22 17:01 Blood Culture - Preliminary Blood - Venous No growth after 48 hours. Discharge Plan Discharge Anticipated Discharge Date/Time: 10/05/22 10:49 Patient Disposition: Home Health Service Discharge Diagnosis: Abnormal EKG Lactic acidosis Persistent AFib UTI due to chronic indwelling Abdi catheter Referrals: Carl MUNOZ [Outside] - 1 Week Raffy Orona MD [Primary Care Provider] - 1 Week Discharge Medications: Continued metoprolol succinate 25 mg tablet extended release 24 hr 25 mg PO BID lansoprazole 30 mg capsule,delayed release(DR/EC) 30 mg PO DAILY Qty: 90 3RF ondansetron HCl 4 mg tablet 4 mg PO Q6H PRN (Reason: for nausea/vomiting) Qty: 60 2RF prochlorperazine maleate 5 mg tablet 5 mg PO Q12H PRN (Reason: for nausea/vomiting) Qty: 30 0RF ipratropium-albuterol 0.5 mg-3 mg(2.5 mg base)/3 mL solution for nebulization 3 ml inhalation Q4-6H PRN (Reason: wheezing) hydrocodone-acetaminophen 7.5-325 mg tablet 1 tab PO Q6H PRN (Reason: severe pain) albuterol sulfate 90 mcg/actuation HFA aerosol inhaler 2 puff inhalation Q6H PRN (Reason: wheezing) Lactobacillus acidophilus 1 billion cell capsule 2,000 mmu cells PO DAILY Qty: 30 0RF Xarelto 20 mg tablet 20 mg PO DAILY@1700 acetaminophen [Athenol] 325 mg tablet 650 mg PO Q6H PRN (Reason: fever or pain) Qty: 20 0RF zinc sulfate 50 mg zinc (220 mg) capsule 50 mg PO DAILY ferrous sulfate 325 mg (65 mg iron) tablet 325 mg PO BID folic acid 1 mg tablet 1 mg PO DAILY ascorbic acid (vitamin C) 500 mg tablet 500 mg PO DAILY (DME) night bags See Rx Instructions .Route .MEDSUPPLY Qty: 1 11RF Rx Instructions: As directed- 1 catheter night bag per month ([facility] [place]) catheter insertion kit See Rx Instructions .Route .MEDSUPPLY Qty: 2 11RF Rx Instructions: As directed- 2 kits per month ([facility] [place]) abdi catheters 18 hong konger See Rx Instructions .Route .MEDSUPPLY Qty: 2 11RF Rx Instructions: As directed- 2 catheters per month ([facility] [place]) catheter irrigation kit See Rx Instructions .Route .MEDSUPPLY Qty: 2 11RF Rx Instructions: As directed- 2 kits per month ([facility] [place]) sterile water See Rx Instructions .Route .MEDSUPPLY Qty: 1 11RF Rx Instructions: As directed for abdi catheter irrigation ([facility] [place]) leg bags See Rx Instructions .Route .MEDSUPPLY Qty: 2 11RF Rx Instructions: 2 catheter leg bags per month simvastatin 40 mg tablet 40 mg PO BEDTIME calcium carbonate [Tums] 200 mg calcium (500 mg) tablet,chewable 200 mg PO TID PRN (Reason: Heartburn) colesevelam 625 mg tablet 1,250 mg PO BID Qty: 120 1RF Discontinued digoxin 250 mcg (0.25 mg) tablet 250 mcg PO DAILY Qty: 90 3RF dicyclomine 10 mg capsule 10 mg PO BID 90 Days Qty: 180 3RF Discharge Orders: Discharge Order (Routine); Ordered 10/05/22 Ordered By: Ron Lama Diet: Low fat, low cholesterol Activity on Discharge: As tolerated Stand Alone Forms: Patient Portal Discharge page Care Plan Goals: Take Metamucil for constipation 1 tbsp mix in any liquid before dinner stop digoxin stop dicyclomine. Minimize use of narcotics, discuss continued use of iron supplement with primary care physician Take all home medications Health Concerns: Constipation/abdominal pain Plan of Treatment: Follow-up with primary care physician call for appointment Assessment: As above Discharge Date/Time: 10/05/22 14:00
--- NOTE | 2022-10-05 11:12 | MHC.CM.PN ---
Pt is medically cleared for discharge home with resumption of previous [facility] services and family support. Pts brother will transport her home.
--- NOTE | 2022-10-05 12:06 | P.PNCA_ITS ---
Subjective Subjective Date of Service: 10/05/22 Interval history: Seen examined at bedside. Feeling better. No abdominal pain anymore. Physical Exam Vital Signs: Last Vital Signs Temp 97.6 F 10/05/22 07:37 Pulse 59 10/05/22 07:37 Resp 20 10/05/22 07:37 BP 107/66 10/05/22 07:37 Pulse Ox 98 10/05/22 07:37 O2 Del Method Room Air 10/05/22 07:37 BMI result Body Mass Index 21.5 GENERAL APPEARANCE: Frail. In no distress. NECK: no carotid bruit, no jugular venous distention. SKIN: no suspicious lesions, warm and dry. HEART: no murmurs, irregular rate and rhythm. LUNGS: clear to auscultation bilaterally. ABDOMEN: soft, nontender. EXTREMITIES: no edema. PERIPHERAL PULSES: equal. NEUROLOGIC: No gross deficits, AAO X 3 Objective Labs and Meds 10/03/22 05:13 10/04/22 05:47 Progress Note: A&P Assessment and plan (1) Abnormal EKG: Status: Acute (2) Permanent atrial fibrillation: Status: Acute (3) Acute UTI: Status: Acute Plan 71-year-old female presented with abdominal pain and nausea. Her digoxin level was elevated. She also had UTI. Digoxin has been discontinued at this stage. She received antibiotics and is improving. Her ECG previously has shown changes consistent with digitalis effect. ECG changes were more marked on this admi ssion but she did not have any ischemic symptoms. ECHO and biomarkers were normal. I think her EKG changes are due to digitalis effect. We will check repeat EKG today. She should not be on digoxin going forward. If digoxin needs to be used it should be used at 125 mcg on Monday and Monday. Thank you for allowing me to participate in the care of your patient. Please feel free to contact me if you have any questions. Time Spent With Patient Time: Total time managing care of this patient today ____ minutes. Progress Note: Quality Stroke Does the patient have a stroke diagnosis?: No Procedures Date of Service Date of Service: 10/05/22
== END 2022-10-05 14:00 | disposition home health service (06) | DRG 699 ==
LOC: HO.ED 18:28 → HO.EDOVER 20:19 → HO.IMC 10-03 05:30
PROVIDERS: Internal Medicine Cardiovascular Disease; Nurse Practitioner Family; Admitting Provider Student in an Organized Health Care Education/Training Program; Emergency Provider Emergency Medicine; PCP Internal Medicine; Visit Provider Hospitalist
DX: T83.511A Infection and inflammatory reaction due to indwelling urethral catheter, initial encounter (principal); E87.20 Acidosis, unspecified; I48.19 Other persistent atrial fibrillation; H54.8 Legal blindness, as defined in USA; K59.00 Constipation, unspecified; N31.9 Neuromuscular dysfunction of bladder, unspecified; I49.5 Sick sinus syndrome; J44.9 Chronic obstructive pulmonary disease, unspecified; K21.9 Gastro-esophageal reflux disease without esophagitis; E78.5 Hyperlipidemia, unspecified; Y74.2 Prosthetic and other implants, materials and accessory general hospital and personal-use devices associated with adverse incidents; I71.40 Abdominal aortic aneurysm, without rupture, unspecified; E86.0 Dehydration; N39.0 Urinary tract infection, site not specified; T46.0X5A Adverse effect of cardiac-stimulant glycosides and drugs of similar action, initial encounter; R94.31 Abnormal electrocardiogram [ECG] [EKG]; Z95.0 Presence of cardiac pacemaker; Z87.891 Personal history of nicotine dependence; Z20.822 Contact with and (suspected) exposure to COVID-19; Z79.01 Long term (current) use of anticoagulants; Z79.899 Other long term (current) drug therapy
CPT/HCPCS: 36415; 71046; 74176; 80048; 80053; 80162; 81001; 83605; 83690; 83735; 83880; 84484; 85025; 85027; 85610; 85730; 87040; 87086; 87635; 93005; 93306; 99285; C1758; J0696; J1643; J2405; Q9957

== ENCOUNTER 2022-10-02 20:02 | Outpatient (BNV) | payer MEDICARE, SELFPAY | END 2022-10-03 07:00 | PROVIDERS: Admitting Provider Student in an Organized Health Care Education/Training Program; Emergency Provider Emergency Medicine; PCP Internal Medicine; Visit Provider Internal Medicine Cardiovascular Disease | DX: I34.0 Nonrheumatic mitral (valve) insufficiency (principal) | CPT/HCPCS: 93306 ==

== ENCOUNTER → 2022-10-02 20:02 | Outpatient (BNV) | payer MEDICARE, SELFPAY | PROVIDERS: Admitting Provider Student in an Organized Health Care Education/Training Program; Emergency Provider Emergency Medicine; PCP Internal Medicine; Visit Provider Internal Medicine Cardiovascular Disease | DX: R94.31 Abnormal electrocardiogram [ECG] [EKG] (principal); I48.21 Permanent atrial fibrillation; N39.0 Urinary tract infection, site not specified | CPT/HCPCS: 99223; 99232 ==

== ENCOUNTER → 2022-10-02 20:02 | Outpatient (BNV) | payer MEDICARE, SELFPAY | PROVIDERS: Admitting Provider Student in an Organized Health Care Education/Training Program; Emergency Provider Emergency Medicine; PCP Internal Medicine; Visit Provider Hospitalist | DX: I21.4 Non-ST elevation (NSTEMI) myocardial infarction (principal); N39.0 Urinary tract infection, site not specified; E87.20 Acidosis, unspecified | CPT/HCPCS: 99223; 99233; 99239 ==

== ENCOUNTER 2022-11-04 11:35 | Outpatient (AMB) | payer MEDICARE, SELFPAY ==
--- NOTE | 2022-11-04 11:35 | MHC.OFFVIS ---
Intake Intake Visit Reasons: Diarrhea FU Intake Note: Trupti presents as a telehealth today. CC: She states that since you gave her the BID medication she has been not constipated and also not having diarrhea. Allergies No Known Allergies [No Known Allergies*] Allergy (Verified 11/04/22 11:35) HPI Diarrhea FU HPI Details 71 yr old f called for f/u RECAP--saw [facility] initially? 10/2018 ?ISSUES: ?1. Non-intractable vomiting with nausea, was? given reglan ?2. Poor nutrition, possibly attributed to amiodarone,? given creon and on boost,carnation ?3. diarrhea, was given carafate,? omeprazole switched to ranitidine ?4. chronic anemia, on xarelto,? multiple polyps on colonoscopy, reactive gastropathy ? TESTS: EGD/Colonoscopy--? 08/2018-- dudeonal tubular adenoma, multiple colon? polyps ?EGD/colonoscopy-02/13/19-several sessile polyps from colon removed, no? further upper gi polyps, barretts? esophagus colonoscopy 05/2022-- multiple polyps removed incl one with area of LGD ? LABS:? 09/2018 ?C diff is negative, H pylori is negative, stool for white? blood cells is negative, alk-phos is elevated at 129 but the remainder of the? liver panel is normal renal panel somewhat improved with a GFR 54 (last? measurement was 45), CBC is unremarkable ? IMAGING: ??CT abdomen? and pelvis 09/2018 ?IMPRESSION: ?1. Fusiform infrarenal? abdominal aortic aneurysm 3.9 x 3.9 cm. ?2. Distended urinary bladder,? 12.3 cm in vertical dimension. No ?hydronephrosis or hydroureter.?3. No bowel obstruction or inflammatory changes in abdomen or pelvis.? she came to ED 12/2020 with severe pneumonia and melena, was transferred to [facility] [place] due to bed situation in [facility], very deconditioned now she was admitted with c diff treated with difcid INTERIM: she is doing well with welchol BID she is trying to gain weight, appetite is v good she is anxious not sure why, maybe family problems she has no concerns today A/P: 1/ Episodic diarrhea with nausea maybe due to altered microbiome and SIBO or hyper acidity complicated by c diff now improved with bile acid binder, gaining weight and better appetite 2/ Hx of colonic polyps PLAN: 1/ repeat colonoscopy in 3-6 months from now--let her gain her strength, had a tough year with illness and hospitalizations, reassess next time, cont with bile acid binder REPLACED BY [facility] Medical History Cardiac pacemaker in situ COPD (chronic obstructive pulmonary disease) Dyspnea on exertion Exercise hypoxemia GERD (gastroesophageal reflux disease) HTN (hypertension) Hypertension Legally blind On beta mayra at home Persistent atrial fibrillation Pneumonia Retention, urine Sick sinus syndrome Surgical History History of cardioversion History of endoscopy History of esophagogastroduodenoscopy (EGD) History of radiofrequency ablation (RFA) for complex left atrial arrhythmia Hx of cardiac pacemaker Hx of colonoscopy Hx of hysterectomy Family History Father CHF (congestive heart failure) Cancer Pacemaker Mother Emphysema lung Social History Household Members: Spouse and Children Housing: House Do you presently have visiting nurse or other home services: Yes ([facility]NA) Unable to assess alcohol history related to: Unknown Alcohol intake: former Patient Tobacco Use Status: Never used Tobacco Advance Directives Date on File: 07/26/22 service: No Assessment & Plan Assessment & Plan (1) Colon polyposis: Code(s): K63.5 - Polyp of colon (2) C. difficile diarrhea: Code(s): A04.72 - Enterocolitis due to Clostridium difficile, not specified as recurrent Telehealth Telehealth Location of provider rendering services: practice address Location of patient: address on file Patient Identification confirmed using: Name, : Yes Telehealth method: voice only Patient verbally consented to treatment: Yes Patient verbally consented to billing insurance company: Yes Patient informed of any privacy concerns related to visit: Yes Minutes spent on Phone/Video with Pt.: 4 Coding Level of Care Code Tele Est Pt Level 2 (91003) Diagnoses Colon polyposis K63.5 C. difficile diarrhea A04.72
== END 2022-11-04 13:55 | disposition home or self-care (01) ==
LOC: HO.HGI 11:35
PROVIDERS: PCP Internal Medicine; Visit Provider Internal Medicine Gastroenterology
DX: K63.5 Polyp of colon (principal); A04.72 Enterocolitis due to Clostridium difficile, not specified as recurrent
CPT/HCPCS: 99441

== ENCOUNTER → 2022-11-04 11:35 | Outpatient (BNVA) | payer MEDICARE, SELFPAY | PROVIDERS: PCP Internal Medicine; Visit Provider Internal Medicine Gastroenterology ==

== ENCOUNTER 2022-12-07 10:36 | Outpatient (AMB) | payer MEDICARE, SELFPAY ==
--- NOTE | 2022-12-07 10:41 | MHC.OFFVIS ---
Intake Vital Signs 12/07/22 10:43 Height 5 ft 3 in Weight 123 lb 7.342 oz BMI 21.9 BP 116/62 Blood Pressure Location Lt brachial Position Sitting Pulse 94 Intake Visit Reasons: over due f/up/ r/s by pt Intake Note: Overdue follow-up with [employer] check Rejected Items Clerk Required: No Allergies No Known Allergies [No Known Allergies*] Allergy (Verified 11/04/22 11:35) Medication List - Last Reconciled 12/07/22 by Freddy Pugh MD acetaminophen (Athenol) 650 mg (2 x 325 mg) PO Q6H PRN albuterol sulfate 90 mcg/actuation 2 puffs inhalation Q6H PRN calcium carbonate (Tums) 200 mg PO TID PRN [catheter insertion kit As directed- 2 kits per month] [catheter irrigation kit As directed- 2 kits per month] colesevelam 1,250 mg (2 x 625 mg) PO BID 90 days escitalopram oxalate 5 mg PO DAILY estradiol 0.01%(0.1mg/gram) vaginal [abdi catheters As directed- 2 catheters per month] folic acid 1 mg PO DAILY hydrocodone-acetaminophen 7.5-325 mg 1 tab PO Q6H PRN ipratropium-albuterol 0.5 mg-3 mg(2.5 mg base)/3 mL 3 mL inhalation Q4-6H PRN Lactobacillus acidophilus 2,000 mmu cells (2 x 1 billion cell) PO DAILY lansoprazole 30 mg PO DAILY [leg bags 2 catheter leg bags per month] metoprolol succinate ER 25 mg PO BID [night bags As directed- 1 catheter night bag per month] ondansetron HCl 4 mg PO Q6H PRN polyethylene glycol 3350 17 grams PO DAILY prochlorperazine maleate 5 mg PO Q12H PRN 30 days rivaroxaban (Xarelto) 20 mg PO DAILY@1700 simvastatin 40 mg PO BEDTIME [sterile water As directed for abdi catheter irrigation ] zinc sulfate 50 mg PO DAILY HPI HPI Comments History of Present Illness Details Trupti comes for follow-up. She says she is doing very well. No current cardiac complaints to report. Denies any worsening heart failure symptoms. Denies any worsening shortness of breath. No orthopnea, PND, leg edema. No palpitations, lightheadedness, syncope. Taking all her medications. No bleeding issues or neurologic events. Currently not using oxygen. [facility] Medical History AAA (abdominal aortic aneurysm) Permanent atrial fibrillation Atrial fibrillation On beta mayra at home Legally blind Retention, urine Pneumonia Exercise hypoxemia GERD (gastroesophageal reflux disease) Hypertension Persistent atrial fibrillation COPD (chronic obstructive pulmonary disease) Dyspnea on exertion HTN (hypertension) Cardiac pacemaker in situ Sick sinus syndrome Surgical History History of endoscopy Hx of colonoscopy History of esophagogastroduodenoscopy (EGD) Hx of hysterectomy Hx of cardiac pacemaker History of radiofrequency ablation (RFA) for complex left atrial arrhythmia History of cardioversion Family History Father CHF (congestive heart failure) Cancer Pacemaker Mother Emphysema lung Social History Household Members: Spouse and Children Housing: House Do you presently have visiting nurse or other home services: Yes (VNA) Unable to assess alcohol history related to: Unknown Alcohol intake: former Patient Tobacco Use Status: Never used Tobacco Advance Directives Date on File: 07/26/22 service: No Review of Systems Const Denies chills, Denies fatigue, Denies fever(s), Denies frequent falls, Denies weakness, Denies weight gain and Denies weight loss ENT Denies dizziness Card Denies chest pain, Denies leg edema, Denies lightheadedness, Denies palpitations, Denies dyspnea, Denies dyspnea on exertion, Denies orthopnea and Denies other (loss of consciousness) Resp Denies cough, Denies dyspnea and Denies dyspnea on exertion GI Denies hematochezia and Denies change in stool character Musc Denies abnormal gait, Denies muscle weakness, Denies numbness, Denies radiating pain into limb and Denies tingling Neuro Denies abnormal gait, Denies dizziness, Denies frequent falls, Denies numbness, Denies tingling and Denies weakness Endo Denies fatigue and Denies palpitations Physical Exam Vital Signs: Last Vital Signs Pulse 94 12/07/22 10:43 BP 116/62 12/07/22 10:43 BMI result Body Mass Index 21.9 Const General: cooperative, no acute distress, alert, awake and well groomed Orientation/consciousness: patient oriented x3 Neck Neck: Yes normal visual inspection and Yes no JVD Resp Other: Mouth breather Effort & Inspection: normal respiratory effort, able to speak in complete sentences and not labored Auscultation: clear to auscultation bilaterally, no crackles, no rales, no rhonchi and no wheezes Cardio Rate: tachycardic Rhythm: abnormal rhythm Heart sounds: S1 normal heart sound present and S2 normal heart sound present Peripheral pulses: Peripheral pulses 2+ throughout GI Inspection: Yes normal to inspection Neuro General: patient oriented x3 Extrem General: Yes normal to inspection and No edema Office Procedures Cardiac Device Check Cardiac Device Check Details: Dual-chamber Med[employer]onic pacemaker programmed in VVIR due to chronic atrial fibrillation. Ventricular sensing is excellent. Ventricular pacing thresholds excellent and reprogrammed to provide adequate safety. Pacing lead impedance is stable. Battery life is at about 1 year [id number] Cardiac Device Check, pacemaker dual lead Procedure code (CPT) selection complete Assessment & Plan Assessment & Plan (1) Persistent atrial fibrillation: Code(s): I48.19 - Other persistent atrial fibrillation Plan: Chronic persistent atrial fibrillation has failed rhythm control approach. Continue rate control approach with metoprolol therapy. No signs or symptoms of heart failure at this point time. Continue full oral anticoagulation, currently on Xarelto 20 mg daily. Semi annual renal function test should be pursued. Advised to call me with any worsening heart failure symptoms. (2) Cardiac pacemaker in situ: Code(s): Z95.0 - Presence of cardiac pacemaker Plan: Cardiac pacemaker in-situ for sick sinus syndrome. Working well. Continue monitor remotely every 3 months. Follow up in the clinic in 6 months time. Will follow up in the clinic in 6 months, some a p.r.n. thank you for me to partake in her care Coding Level of Care Code Est Pt Level 4 (39196) Diagnoses Persistent atrial fibrillation I48.19 Cardiac pacemaker in situ Z95.0 CPT Codes Cardiac Device Check - Cardiac Device 2: [id number]-[id number] Cardiac Device Check, pacemaker dual lead ([id number])
[2022-12-07 10:43] VITALS: BP 116/62; PULSE 94; BMI 21.9
== END 2022-12-07 11:11 | disposition home or self-care (01) ==
PROVIDERS: PCP Internal Medicine; Visit Provider Internal Medicine Cardiovascular Disease
DX: I48.19 Other persistent atrial fibrillation (principal); Z95.0 Presence of cardiac pacemaker
CPT/HCPCS: 93280; 99214

== ENCOUNTER → 2022-12-07 10:36 | Outpatient (BNVA) | payer MEDICARE, SELFPAY | PROVIDERS: PCP Internal Medicine; Visit Provider Internal Medicine Cardiovascular Disease | DX: I48.19 Other persistent atrial fibrillation (principal); Z79.01 Long term (current) use of anticoagulants; Z79.899 Other long term (current) drug therapy; Z45.018 Encounter for adjustment and management of other part of cardiac pacemaker | CPT/HCPCS: 93280; 99212 ==

== ENCOUNTER 2023-01-20 10:17 | Outpatient (AMB) | payer MEDICARE, SELFPAY ==
--- NOTE | 2023-01-20 10:18 | A.OFFVIS_ITS ---
Intake Intake Visit Reasons: 6m follow up Intake Note: Patient is present for follow up retention(abdi catheter) Urology Medications: none Blood Thinner: Xarelto Fiber Heel Piece Shaper Required: No Accompanied by: Self / Same As Patient Allergies No Known Allergies [No Known Allergies*] Allergy (Verified 01/20/23 10:25) Medication List - Last Reconciled 01/20/23 by JOSEPH PenalozaP-BC acetaminophen (Athenol) 650 mg (2 x 325 mg) PO Q6H PRN albuterol sulfate 90 mcg/actuation 2 puffs inhalation Q6H PRN calcium carbonate (Tums) 200 mg PO TID PRN [catheter insertion kit As directed- 2 kits per month] [catheter irrigation kit As directed- 2 kits per month] colesevelam 1,250 mg (2 x 625 mg) PO BID 90 days escitalopram oxalate 5 mg PO DAILY estradiol 0.01%(0.1mg/gram) vaginal [abdi catheters As directed- 2 catheters per month] folic acid 1 mg PO DAILY hydrocodone-acetaminophen 7.5-325 mg 1 tab PO Q6H PRN ipratropium-albuterol 0.5 mg-3 mg(2.5 mg base)/3 mL 3 mL inhalation Q4-6H PRN Lactobacillus acidophilus 2,000 mmu cells (2 x 1 billion cell) PO DAILY Lactobacillus acidophilus 0.5 mg PO DAILY lansoprazole 30 mg PO DAILY [leg bags 2 catheter leg bags per month] metoprolol succinate ER 25 mg PO BID [night bags As directed- 1 catheter night bag per month] ondansetron HCl 4 mg PO Q6H PRN polyethylene glycol 3350 17 grams PO DAILY prochlorperazine maleate 5 mg PO Q12H PRN 30 days rivaroxaban (Xarelto) 20 mg PO QPM simvastatin 40 mg PO BEDTIME [sterile water As directed for abdi catheter irrigation ] zinc sulfate 50 mg PO DAILY HPI HPI Comments History of Present Illness Details Trupti is a plesant 72-year-old female patient of Dr. Orona. She has a past medical history of COPD, GERD, hypertension, persistent AFib, legally blind, neurogenic bladder, and urinary retention. She is being followed up on today via telehealth for a follow up of her urinary retention in longstanding history of indwelling Abdi catheter. She has had many multiple failed voiding trials in the past. Patient reports to be doing and feeling well. She denies any bothersome urinary issues or concerns at this time. She denies having had any urinary issues since her last office visit here. She denies any UTI like symptoms. Patient discusses VNA services has been changing her indwelling Abdi catheter each month given patients diagnosis of being legally blind. She discusses having issues with insurance coverage for Stat lock. She discusses utilizing flip flow valve throughout the day and emptying her bladder every 2-3 hours and utilizing night bag at . She also discusses her who has severe COPD having issues with the weather and his breathing. I discussed again with the patient risks and benefits of suprapubic tube in the setting of chronic Abdi catheter use in women. She is unable to CIC given she is legally blind. She declines suprapubic tube placement at this time. She otherwise offers no issues or concerns at this time. [facility] Medical History AAA (abdominal aortic aneurysm) Permanent atrial fibrillation Atrial fibrillation On beta mayra at home Legally blind Retention, urine Pneumonia Exercise hypoxemia GERD (gastroesophageal reflux disease) Hypertension Persistent atrial fibrillation COPD (chronic obstructive pulmonary disease) Dyspnea on exertion HTN (hypertension) Cardiac pacemaker in situ Sick sinus syndrome Surgical History History of endoscopy Hx of colonoscopy History of esophagogastroduodenoscopy (EGD) Hx of hysterectomy Hx of cardiac pacemaker History of radiofrequency ablation (RFA) for complex left atrial arrhythmia History of cardioversion Family History Father CHF (congestive heart failure) Cancer Pacemaker Mother Emphysema lung Social History Household Members: Spouse and Children Housing: House Do you presently have visiting nurse or other home services: Yes (VNA) Unable to assess alcohol history related to: Unknown Alcohol intake: former Patient Tobacco Use Status: Never used Tobacco Advance Directives Date on File: 07/26/22 service: No Review of Systems Const Reports as per HPI Eyes Details: Patient reports she is legally blind. Reports as per HPI ENT Reports no additional complaints Card Reports as per HPI Resp Reports as per HPI GI Reports as per HPI, Denies abdominal pain, Reports diarrhea and Denies nausea Reports as per HPI Musc Reports no additional complaints Neuro Reports no additional complaints Physical Exam Const General: cooperative Orientation/consciousness: patient oriented x3 Resp Effort & Inspection: able to speak in complete sentences Neuro General: patient oriented x3 Psych Speech and movement: Clear speech present Attitude: cooperative Thought content: Normal thought content present Insight: Fair insight present (Psych) Judgement: Fair judgement present (Psych) Assessment & Plan Assessment & Plan (1) Neurogenic bladder: Code(s): N31.9 - Neuromuscular dysfunction of bladder, unspecified (2) Retention, urine: Code(s): R33.9 - Retention of urine, unspecified Plan Patient denies any bothersome urinary issues or concerns at this time She denies any UTI like symptoms today and or since her last office visit here approximately 6 months ago Discussed at length suprapubic tube placement versus indwelling Abdi catheter; discussed risks and benefits Patient unable to CIC given she is legally blind and this will be difficult for her Patient otherwise offers no urinary issues or concerns at this time. Follow up in office 6 months; if not sooner with any issues, concerns, and or questions. Patient Instructions: The patient had an opportunity to ask questions regarding the treatment plan. All questions were answered. Physical exam, labs, and imaging were discussed and reviewed in detail. As well as risks, benefits, and discussion of treatment choices. No major barriers to understanding were identified. The patient expressed understanding and agreement with the above treatment plan. The patient was made aware they should contact our office by phone for worsening of their current condition, the appearance of new symptoms, or with any questions or concerns. Compliance is encouraged with any medications and follow up testing that is ordered. It is a privilege to be allowed the opportunity to participate in? your urological care.? Again, if you have any questions or concerns If you have any questions or concerns please do not hesitate to contact me. The office is [phone]. This note is constructed using voice recognition software. While every effort has been made to ensure accuracy airport operations officer errors may have been included. Yours sincerely, CARTER Penaloza Telehealth Telehealth Location of provider rendering services: practice address Location of patient: address on file Patient Identification confirmed using: Name, : Yes Telehealth method: voice only Patient verbally consented to treatment: Yes Patient verbally consented to billing insurance company: Yes Patient informed of any privacy concerns related to visit: Yes Minutes spent on Phone/Video with Pt.: 15 Coding Level of Care Code Tele Est Pt Level 3 (62607) Diagnoses Neurogenic bladder N31.9 Retention, urine R33.9 Time Spent (min) 15
== END 2023-01-20 11:20 | disposition home or self-care (01) ==
LOC: HO.HUSH 10:17
PROVIDERS: PCP Internal Medicine; Referring Provider Internal Medicine; Visit Provider Nurse Practitioner Family
DX: N31.9 Neuromuscular dysfunction of bladder, unspecified (principal); R33.9 Retention of urine, unspecified
CPT/HCPCS: 99442

== ENCOUNTER → 2023-01-20 10:17 | Outpatient (BNVA) | payer MEDICARE, SELFPAY | PROVIDERS: PCP Internal Medicine; Visit Provider Nurse Practitioner Family ==

== ENCOUNTER 2023-02-10 11:16 | Outpatient (AMB) | payer MEDICARE, SELFPAY ==
--- NOTE | 2023-02-10 11:16 | MHC.OFFVIS ---
Intake Intake Visit Reasons: 4 month follow up Intake Note: Trupti presents as a telehealth today. CC: She states that every time she eats she gets severe gas. No pains but she just passes a lot of gas and her bowels are normal. Allergies No Known Allergies [No Known Allergies*] Allergy (Verified 02/10/23 11:17) HPI 4 month follow up HPI Details 72 yr old f called for f/u RECAP--saw [facility] initially 10/2018 ISSUES: 1. Non-intractable vomiting with nausea, was given reglan 2. Poor nutrition, possibly attributed to amiodarone, given creon and on boost,carnation 3. diarrhea, was given carafate, omeprazole switched to ranitidine 4. chronic anemia, on xarelto, multiple polyps on colonoscopy, reactive gastropathy TESTS: EGD/Colonoscopy-- 08/2018-- dudeonal tubular adenoma, multiple colon polyps EGD/colonoscopy-02/13/19-several sessile polyps from colon removed, no further upper gi polyps, barretts esophagus colonoscopy 05/2022-- multiple polyps removed incl one with area of LGD LABS: 09/2018 C diff is negative, H pylori is negative, stool for white blood cells is negative, alk-phos is elevated at 129 but the remainder of the liver panel is normal renal panel somewhat improved with a GFR 54 (last measurement was 45), CBC is unremarkable IMAGING: CT abdomen and pelvis 09/2018 IMPRESSION: 1. Fusiform infrarenal abdominal aortic aneurysm 3.9 x 3.9 cm. 2. Distended urinary bladder, 12.3 cm in vertical dimension. No hydronephrosis or hydroureter. 3. No bowel obstruction or inflammatory changes in abdomen or pelvis. she came to ED 12/2020 with severe pneumonia and melena, was transferred to [facility] in [place] due to bed situation in [facility], very deconditioned now she was admitted with c diff treated with difcid INTERIM: she has issues with gas and discomfort she has tried probiotics and gas X and has not helped she has normal formed stools no diarrhea no blood in stools she had a good sam and new year she is doing well with welchol BID A/P: 1/ Gas symptoms, possibly due to medications or food intolerance 2/ Hx of colonic polyps PLAN: 1/ might consider cutting down dose of colesevelam, but before that try higher dose of simethicone and use capsule formulation 2/ discuss colonoscopy at next visist for later in the year, maybe summer or amber time [facility] Medical History AAA (abdominal aortic aneurysm) Permanent atrial fibrillation Atrial fibrillation On beta mayra at home Legally blind Retention, urine Pneumonia Exercise hypoxemia GERD (gastroesophageal reflux disease) Hypertension Persistent atrial fibrillation COPD (chronic obstructive pulmonary disease) Dyspnea on exertion HTN (hypertension) Cardiac pacemaker in situ Sick sinus syndrome Surgical History History of endoscopy Hx of colonoscopy History of esophagogastroduodenoscopy (EGD) Hx of hysterectomy Hx of cardiac pacemaker History of radiofrequency ablation (RFA) for complex left atrial arrhythmia History of cardioversion Family History Father CHF (congestive heart failure) Cancer Pacemaker Mother Emphysema lung Social History Household Members: Spouse and Children Housing: House Do you presently have visiting nurse or other home services: Yes (VNA) Unable to assess alcohol history related to: Unknown Alcohol intake: former Patient Tobacco Use Status: Never used Tobacco Advance Directives Date on File: 07/26/22 service: No Assessment & Plan Assessment & Plan (1) Gas bloat syndrome: Code(s): K92.89 - Other specified diseases of the digestive system Plan see above Telehealth Telehealth Location of provider rendering services: practice address Location of patient: address on file Patient Identification confirmed using: Name, : Yes Telehealth method: voice only Patient verbally consented to treatment: Yes Patient verbally consented to billing insurance company: Yes Patient informed of any privacy concerns related to visit: Yes Minutes spent on Phone/Video with Pt.: 6 Coding Level of Care Code Tele Est Pt Level 3 (92961) Diagnoses Gas bloat syndrome K92.89
== END 2023-02-10 12:35 | disposition home or self-care (01) ==
LOC: HO.HGI 11:16
PROVIDERS: PCP Internal Medicine; Visit Provider Internal Medicine Gastroenterology
DX: K92.89 Other specified diseases of the digestive system (principal)
CPT/HCPCS: 99441

== ENCOUNTER → 2023-02-10 11:16 | Outpatient (BNVA) | payer MEDICARE, SELFPAY | PROVIDERS: PCP Internal Medicine; Visit Provider Internal Medicine Gastroenterology ==

== ENCOUNTER 2023-04-01 09:15 | Outpatient (REF) | payer MEDICARE, SELFPAY ==
[2023-04-01 11:29] LABS: Appearance Urine Clear; Color Urine Yellow; Glucose Urine UA Negative (Negative); Leukocyte Esterase Urine Trace (Negative); Nitrite Urine Negative (Negative); PH 6.5 (5.0-9.0); UMIC TRIGGER UACC YES; Urine Blood Trace (Negative); Urine Ketones Negative (Negative); Urine Protein Negative (Neg-Trace)
[2023-04-01 11:35] LABS: Bacteria Urine None Seen (None Seen); Hyaline Casts Urine 0-2 /LPF (0-2); Squamous Epithelial Cell Urine 0-2 /HPF (0-2); WBC Urine 0-5 /HPF (0-5)
== END 2023-04-01 09:16 | disposition home or self-care (01) ==
LOC: HO.HVNA 09:15
PROVIDERS: PCP Internal Medicine; Visit Provider Urology
DX: N18.9 Chronic kidney disease, unspecified (principal); N39.0 Urinary tract infection, site not specified
CPT/HCPCS: 81001

== ENCOUNTER → 2023-04-11 23:59 | Outpatient (BNV) | payer MEDICARE, SELFPAY ==
--- NOTE | 2023-04-11 16:22 | MHC.OFFVIS ---
Intake Intake Visit Reasons: Remote Device Check- Medtronic Allergies No Known Allergies [No Known Allergies*] Allergy (Verified 02/10/23 11:17) PFS Medical History AAA (abdominal aortic aneurysm) Permanent atrial fibrillation Atrial fibrillation On beta mayra at home Legally blind Retention, urine Pneumonia Exercise hypoxemia GERD (gastroesophageal reflux disease) Hypertension Persistent atrial fibrillation COPD (chronic obstructive pulmonary disease) Dyspnea on exertion HTN (hypertension) Cardiac pacemaker in situ Sick sinus syndrome Surgical History History of endoscopy Hx of colonoscopy History of esophagogastroduodenoscopy (EGD) Hx of hysterectomy Hx of cardiac pacemaker History of radiofrequency ablation (RFA) for complex left atrial arrhythmia History of cardioversion Family History Father CHF (congestive heart failure) Cancer Pacemaker Mother Emphysema lung Social History Household Members: Spouse and Children Housing: House Do you presently have visiting nurse or other home services: Yes (VNA) Unable to assess alcohol history related to: Unknown Alcohol intake: former Patient Tobacco Use Status: Never used Tobacco Advance Directives Date on File: 07/26/22 service: No Office Procedures Cardiac Device Check Cardiac Device Check Details: Remote pacemaker report generated 04/11/2023. Pacemaker function is adequate. Noted in chronic atrial fibrillation. [id number] Cardiac Device Interrogation, pacemaker Procedure code (CPT) selection complete Assessment & Plan Assessment & Plan (1) Cardiac pacemaker in situ: Code(s): Z95.0 - Presence of cardiac pacemaker Plan: See above Coding Level of Care Code Procedure Only Diagnoses Cardiac pacemaker in situ Z95.0 CPT Codes Cardiac Device Check - Cardiac Device 12: [id number] Cardiac Device Interrogation, pacemaker ([id number])
== END ==
PROVIDERS: PCP Internal Medicine; Visit Provider Internal Medicine Cardiovascular Disease
DX: I48.20 Chronic atrial fibrillation, unspecified (principal); Z95.0 Presence of cardiac pacemaker
CPT/HCPCS: 93294

== ENCOUNTER 2023-05-05 12:00 | Outpatient (REF) | payer MEDICARE, SELFPAY ==
[2023-05-05 16:15] LABS: Alanine Aminotransferase 12 U/L (0-31); Albumin Level 2.9 g/dL (3.5-5.0); Alkaline Phosphatase 98 U/L (39-117); Anion Gap 13 (12-20); Aspartate Amino Transferase 14 U/L (5-31); Bilirubin Total 0.2 mg/dL (0.0-1.0); Blood Urea Nitrogen 26 mg/dL (9-16); Calcium 7.8 mg/dL (8.4-10.2); Carbon Dioxide 22 mmol/L (22-29); Chloride 104 mmol/L (96-108); Estimated Glomerular Filt Rate 60; Glucose Random 97 mg/dL (60-115); Potassium 5.1 mmol/L (3.3-5.1); Sodium 134 mmol/L (135-145); Total Protein 5.8 g/dL (6.5-8.0)
== END 2023-05-05 12:01 | disposition home or self-care (01) ==
LOC: HO.HVNA 12:00
PROVIDERS: PCP Internal Medicine; Visit Provider Urology
DX: E87.5 Hyperkalemia (principal)
CPT/HCPCS: 36415; 80053

== ENCOUNTER 2023-05-11 14:34 | Outpatient (REF) | payer MEDICARE, SELFPAY ==
[2023-05-11 14:52] LABS: Appearance Urine Clear; Color Urine Yellow; Glucose Urine UA Negative (Negative); Leukocyte Esterase Urine Small (1+) (Negative); Nitrite Urine Negative (Negative); PH 6.5 (5.0-9.0); Specific Gravity - Urine <= 1.005 (1.005-1.025); UMIC TRIGGER UA YES; Urine Blood Negative (Negative); Urine Ketones Negative (Negative); Urine Protein Negative (Neg-Trace)
[2023-05-11 15:12] LABS: Bacteria Urine 3+ (None Seen); Hyaline Casts Urine 0-2 /LPF (0-2); RBC Urine 0-2 /HPF (0-2); Squamous Epithelial Cell Urine 0-2 /HPF (0-2); WBC Urine 0-5 /HPF (0-5)
== END 2023-05-11 14:35 | disposition home or self-care (01) ==
LOC: HO.HVNA 14:34
PROVIDERS: Visit Provider Urology
DX: F45.8 Other somatoform disorders (principal)
CPT/HCPCS: 81001; 87086; 87088; 87186

== ENCOUNTER 2023-05-19 15:02 | Outpatient (REF) | payer MEDICARE, SELFPAY ==
[2023-05-19 16:25] LABS: Alanine Aminotransferase 12 U/L (0-31); Albumin Level 3.3 g/dL (3.5-5.0); Alkaline Phosphatase 109 U/L (39-117); Anion Gap 14 (12-20); Aspartate Amino Transferase 15 U/L (5-31); Bilirubin Total 0.2 mg/dL (0.0-1.0); Blood Urea Nitrogen 28 mg/dL (9-16); Calcium 8.7 mg/dL (8.4-10.2); Carbon Dioxide 22 mmol/L (22-29); Chloride 106 mmol/L (96-108); Estimated Glomerular Filt Rate > 60; Glucose Random 74 mg/dL (60-115); Phosphorus 3.2 mg/dL (2.7-4.5); Potassium 5.6 mmol/L (3.3-5.1); Sodium 136 mmol/L (135-145); Total Protein 6.4 g/dL (6.5-8.0)
[2023-05-19 16:39] LABS: Vitamin D 25-OH Total 27.4 ng/mL (>30)
== END 2023-05-19 15:03 | disposition home or self-care (01) ==
LOC: HO.LNP 15:02
PROVIDERS: Visit Provider Internal Medicine Endocrinology, Diabetes & Metabolism
DX: E55.9 Vitamin D deficiency, unspecified (principal); M81.0 Age-related osteoporosis without current pathological fracture
CPT/HCPCS: 80053; 82306; 84100

== ENCOUNTER 2023-06-06 14:53 | Outpatient (REF) | payer MEDICARE, SELFPAY ==
[2023-06-06 15:06] LABS: Appearance Urine Clear; Color Urine Yellow; Glucose Urine UA Negative (Negative); Leukocyte Esterase Urine Moderate (2+) (Negative); Nitrite Urine Negative (Negative); PH 6.5 (5.0-9.0); UMIC TRIGGER UA YES; Urine Blood Negative (Negative); Urine Ketones Negative (Negative); Urine Protein Negative (Neg-Trace)
[2023-06-06 15:33] LABS: Bacteria Urine 3+ (None Seen); Hyaline Casts Urine 0-2 /LPF (0-2); RBC Urine 0-2 /HPF (0-2); Squamous Epithelial Cell Urine 0-2 /HPF (0-2)
== END 2023-06-06 14:54 | disposition home or self-care (01) ==
LOC: HO.HVNA 14:53
PROVIDERS: Visit Provider Urology
DX: N39.0 Urinary tract infection, site not specified (principal)
CPT/HCPCS: 81001; 81003; 87086; 87088; 87186

== ENCOUNTER 2023-06-08 10:35 | Outpatient (AMB) | payer MEDICARE, SELFPAY ==
--- NOTE | 2023-06-08 10:40 | A.OFFVIS_ITS ---
Vital Signs 06/08/23 10:41 Height 5 ft 3 in Weight 160 lb 14.999 oz BMI 28.5 BP 120/70 Blood Pressure Location Lt brachial Position Sitting Pulse 84 Intake Visit Reasons: 6 mth f/up w/ pacer Intake Note: 6 month follow-up with ListRunner check c/o sob Therapeutic Recreation Assistant Required: No Allergies No Known Allergies [No Known Allergies*] Allergy (Verified 02/10/23 11:17) Medication List - Last Reconciled 06/08/23 by Freddy Pugh MD albuterol sulfate 90 mcg/actuation 2 puffs inhalation Q6H PRN calcium carbonate (Tums) 200 mg PO TID PRN calcium carbonate 260 mg PO DAILY [catheter insertion kit As directed- 2 kits per month] [catheter irrigation kit As directed- 2 kits per month] cholecalciferol (vitamin D3) 25 mcg PO DAILY colesevelam 1,250 mg (2 x 625 mg) PO BID 90 days docusate sodium 100 mg PO BID escitalopram oxalate 10 mg PO DAILY estradiol 0.01%(0.1mg/gram) vaginal estradiol (Vagifem) 10 mcg vaginal 2XW 28 days [abdi catheters As directed- 2 catheters per month] folic acid 1 mg PO DAILY hydrocodone-acetaminophen 7.5-325 mg 1 tab PO Q6H PRN ipratropium-albuterol 0.5 mg-3 mg(2.5 mg base)/3 mL 3 mL inhalation Q4-6H PRN Lactobacillus acidophilus 2,000 mmu cells (2 x 1 billion cell) PO DAILY lansoprazole 30 mg PO DAILY [leg bags 2 catheter leg bags per month] metoprolol succinate ER 25 mg PO BID [night bags As directed- 1 catheter night bag per month] ondansetron HCl 4 mg PO Q6H PRN prochlorperazine maleate 5 mg PO Q12H PRN 30 days rivaroxaban (Xarelto) 20 mg PO QPM simethicone (Anti-Gas Ultra Strength) 180 mg PO BID simvastatin 40 mg PO BEDTIME [sterile water As directed for abdi catheter irrigation ] zinc sulfate 50 mg PO DAILY HPI Comments Details: Trupti comes for follow-up. She continues to have exertional shortness of breath when she pushes herself. Although this is not progressive. Denies any orthopnea, PND, leg edema. Denies any chest pain. Denies any prolonged palpitation irregular heartbeat. Denies any bleeding issues or neurologic events. Recent renal function was within normal limits. Her potassium was elevated, being repeated through your office. Denies any lightheadedness, syncope. [facility], [facility] Medical History AAA (abdominal aortic aneurysm) Permanent atrial fibrillation Atrial fibrillation On beta mayra at home Legally blind Retention, urine Pneumonia Exercise hypoxemia GERD (gastroesophageal reflux disease) Hypertension Persistent atrial fibrillation COPD (chronic obstructive pulmonary disease) Dyspnea on exertion HTN (hypertension) Cardiac pacemaker in situ Sick sinus syndrome Surgical History History of endoscopy Hx of colonoscopy History of esophagogastroduodenoscopy (EGD) Hx of hysterectomy Hx of cardiac pacemaker History of radiofrequency ablation (RFA) for complex left atrial arrhythmia History of cardioversion Family History Father CHF (congestive heart failure) Cancer Pacemaker Mother Emphysema lung Social History Household Members: Spouse and Children Housing: House Do you presently have visiting nurse or other home services: Yes (VNA) Unable to assess alcohol history related to: Unknown Alcohol intake: former Patient Tobacco Use Status: Never used Tobacco Advance Directives Date on File: 07/26/22 service: No Review of Systems Const Denies chills, Denies fatigue, Denies fever(s), Denies frequent falls, Denies weakness, Denies weight gain and Denies weight loss ENT Denies dizziness Card Denies chest pain, Denies leg edema, Denies lightheadedness, Denies palpitations, Denies dyspnea, Denies dyspnea on exertion, Denies orthopnea and Denies other (loss of consciousness) Resp Denies cough, Denies dyspnea and Denies dyspnea on exertion GI Denies hematochezia and Denies change in stool character Musc Denies abnormal gait, Denies muscle weakness, Denies numbness, Denies radiating pain into limb and Denies tingling Neuro Denies abnormal gait, Denies dizziness, Denies frequent falls, Denies numbness, Denies tingling and Denies weakness Endo Denies fatigue and Denies palpitations Physical Exam Vital Signs: Last Vital Signs Pulse 84 06/08/23 10:41 BP 120/70 06/08/23 10:41 BMI result Body Mass Index 28.5 Const General: cooperative, no acute distress, alert, awake and well groomed Orientation/consciousness: patient oriented x3 Neck Neck: Yes normal visual inspection and Yes no JVD Resp Other: Mouth breather Effort & Inspection: normal respiratory effort, able to speak in complete sentences and not labored Auscultation: clear to auscultation bilaterally, no crackles, no rales, no rhonchi and no wheezes Cardio Rate: tachycardic Rhythm: abnormal rhythm Heart sounds: S1 normal heart sound present and S2 normal heart sound present Peripheral pulses: Peripheral pulses 2+ throughout GI Inspection: Yes normal to inspection Neuro General: patient oriented x3 Extrem General: Yes normal to inspection and No edema Office Procedures Cardiac Device Check Cardiac Device Check Details: Dual-chamber Medtronic pacemaker in place, programmed in VVIR due to chronic atrial fibrillation. Minimal ventricular pacing noted. Ventricular pacing thresholds elevated and reprogrammed to provide adequate safety. Ventricular sensing is adequate. Pacing lead impedance is stable. Battery life is about 13 months [id number] Cardiac Device Check, pacemaker dual lead Procedure code (CPT) selection complete Assessment & Plan Assessment & Plan (1) Cardiac pacemaker in situ: Code(s): Z95.0 - Presence of cardiac pacemaker Category: Medical Plan: Cardiac pacemaker in-situ for sick sinus syndrome. Currently programmed in VVI mode due to chronic atrial fibrillation. Minimal ventricular pacing at this point time. Will continue monitor every 6 months in the clinic and by remote monitoring. (2) Persistent atrial fibrillation: Code(s): I48.19 - Other persistent atrial fibrillation Category: Medical Plan: Chronic persistent atrial fibrillation. Has failed rhythm control approach. Continue pursue rate control approach. Continue metoprolol therapy. Continue full oral anticoagulation, currently on Xarelto 20 mg daily. Semi annual renal function test is recommended. Discussed management of atrial fibrillation again. (3) HTN (hypertension): Code(s): I10 - Essential (primary) hypertension Category: Medical Plan: Hypertension which is currently well optimized advised to monitor blood pressure at home maintain a log. Goal blood pressure less than 130/84. Low-salt diet was discussed. (4) Dyspnea on exertion: Comment: DYSPNEA ON EXERTION, HAS DEFINITELY IMPROVED. Code(s): R06.00 - Dyspnea, unspecified Category: Medical Plan: Shortness of breath exertion although improved still continues to have shortness of breath exertion. No signs or symptoms of heart failure. Related to underlying COPD as well as chronic persistent atrial fibrillation. Management would be as currently. No signs or symptoms of heart failure and there is no indication for diuretic regimen. Continue current therapy and management of COPD. Follow up in the clinic in 6 months time, sooner p.r.n.. Thank you for allowing me to partake in the care Coding Level of Care Code Est Pt Level 4 (56327) Diagnoses Cardiac pacemaker in situ Z95.0 Persistent atrial fibrillation I48.19 HTN (hypertension) I10 Dyspnea on exertion R06.00 CPT Codes Cardiac Device Check - Cardiac Device 2: [id number] Cardiac Device Check, pacemaker dual lead ([id number])
[2023-06-08 10:41] VITALS: BP 120/70; PULSE 84; BMI 28.5
== END 2023-06-08 11:11 | disposition home or self-care (01) ==
PROVIDERS: PCP Internal Medicine; Visit Provider Internal Medicine Cardiovascular Disease
DX: I48.19 Other persistent atrial fibrillation (principal); Z95.0 Presence of cardiac pacemaker; I10 Essential (primary) hypertension; R06.09 Other forms of dyspnea
CPT/HCPCS: 93280; 99214

== ENCOUNTER → 2023-06-08 10:35 | Outpatient (BNVA) | payer MEDICARE, SELFPAY | PROVIDERS: PCP Internal Medicine; Visit Provider Internal Medicine Cardiovascular Disease | DX: Z45.018 Encounter for adjustment and management of other part of cardiac pacemaker (principal); I48.19 Other persistent atrial fibrillation; I10 Essential (primary) hypertension; R06.00 Dyspnea, unspecified | CPT/HCPCS: 93280; 99212 ==

== ENCOUNTER 2023-06-17 13:37 | Outpatient (REF) | payer MEDICARE, SELFPAY ==
[2023-06-17 13:52] LABS: MANUAL DIFF FLAG NO
[2023-06-17 14:01] LABS: Basophils Percent Auto 0.5 % (0-2); Eosinophils Percent Auto 0.5 % (0-4); Hemoglobin 12.1 g/dl (12.0-16.0); Imm Gran Pct Auto 1.2 % (0.0-0.4); Lymphocytes Absolute Auto 1.2 X10*3/uL (1.2-4.9); Lymphocytes Percent Auto 14.5 % (20-40); Mean Corpuscular HGB Conc 32.7 g/dl (31.0-35.0); Mean Corpuscular Hemoglobin 28.7 pg (27.0-33.0); Mean Corpuscular Volume 87.9 fL (80.0-98.0); Mean Platelet Volume 9.4 fL (9.4-12.3); Monocytes Absolute Auto 0.6 X10*3/uL (0.1-1.2); Monocytes Percent Auto 7.5 % (2-11); Neutrophils Absolute Auto 6.2 x10*3/uL (2.0-8.3); Neutrophils Percent Auto 75.8 % (45-73); Platelet Count 263 X10*3/uL (160-400); Red Blood Count 4.21 X10*6/uL (4.20-5.50); Red Cell Distribution Width 14.1 % (11.0-16.0); White Blood Count 8.2 X10*3/uL (4.8-10.8)
[2023-06-26 21:20] LABS: Prot Elec - Albumin 2.9 g/dL (3.8-4.8); Prot Elec - Alpha1 0.4 g/dL (0.2-0.3); Prot Elec - Alpha2 1.3 g/dL (0.5-0.9); Prot Elec - Beta 1 0.4 g/dL (0.4-0.6); Prot Elec - Beta 2 0.3 g/dL (0.2-0.5); Prot Elec - Gamma 0.5 g/dL (0.8-1.7); Prot Elec - Total Protein 5.7 g/dL (6.1-8.1)
== END 2023-06-17 13:38 | disposition home or self-care (01) ==
LOC: HO.LNP 13:37
PROVIDERS: Visit Provider Internal Medicine
DX: I25.10 Atherosclerotic heart disease of native coronary artery without angina pectoris (principal); R77.1 Abnormality of globulin
CPT/HCPCS: 84165; 85025

== ENCOUNTER 2023-06-23 09:00 | Outpatient (REF) | payer MEDICARE, SELFPAY ==
[2023-06-23 16:30] LABS: Appearance Urine Clear; Color Urine Yellow; Glucose Urine UA Negative (Negative); Leukocyte Esterase Urine Small (1+) (Negative); Nitrite Urine Negative (Negative); Specific Gravity - Urine 1.015 (1.005-1.025); UMIC TRIGGER UA YES; Urine Blood Moderate (2+) (Negative); Urine Ketones Negative (Negative); Urine Protein Trace mg/dL (Neg-Trace)
[2023-06-23 16:42] LABS: Bacteria Urine None Seen (None Seen); Hyaline Casts Urine 0-2 /LPF (0-2); RBC Urine >20 /HPF (0-2); Squamous Epithelial Cell Urine 0-2 /HPF (0-2); WBC Urine 21-50 /HPF (0-5)
== END 2023-06-23 09:01 | disposition home or self-care (01) ==
LOC: HO.HVNA 09:00
PROVIDERS: PCP Internal Medicine; Visit Provider Nurse Practitioner Family
DX: R33.9 Retention of urine, unspecified (principal); N39.0 Urinary tract infection, site not specified; N31.9 Neuromuscular dysfunction of bladder, unspecified
CPT/HCPCS: 81001; 87086; 87088

== ENCOUNTER 2023-06-26 12:07 | Outpatient (REF) | payer MEDICARE, SELFPAY ==
--- NOTE | ~2023-06-26 | XR_ITS ---
EXAMINATION: XR CHEST CLINICAL INFORMATION: Shortness of breath, wheezing COMPARISON: Chest x-ray on 10/02/2022 TECHNIQUE: 2 views of the chest were obtained. FINDINGS: vascularity. Left brachiocephalic approach dual-chamber pacemaker wires are seen ending at expected location of right atrium and right ventricle. LUNGS: Lungs are clear. No pneumothorax is seen. BONES: Bony skeleton is intact. XR/XR chest 2V IMPRESSION: 1. No interval change in position of pacemaker wires. 2. Unchanged no radiographic signs of acute cardiopulmonary process.
--- NOTE | ~2023-06-26 | US_ITS ---
EXAMINATION: US VENOUS ULTRASOUND WITH DOPPLER LOWER EXTREMITY, RIGHT CLINICAL INFORMATION: Right lower extremity pain COMPARISON: None available. TECHNIQUE: Ultrasound of the deep veins is performed from the hip to the calf with compression sonography and color and pulse Doppler assessment. Spectral analysis with color-flow imaging is performed. FINDINGS: There is normal venous compression and respiratory variation and augmented flow. The visualized common femoral vein, superficial femoral vein, profunda femoral vein, popliteal vein, and the trifurcation region shows no evidence of deep venous thrombosis. There is no significant popliteal fossa cyst. Contralateral left common femoral vein appears normal. If the patient's symptoms persist, followup ultrasound in 5 days 7 days might be of value to exclude proximal propagation from a non-visualized calf vein. US/US venous duplex LE RT IMPRESSION: No DVT demonstrated in the right lower extremity.
== END 2023-06-26 12:08 | disposition home or self-care (01) ==
LOC: HO.US 12:07
PROVIDERS: PCP Internal Medicine; Visit Provider Internal Medicine
DX: R06.02 Shortness of breath (principal); M79.604 Pain in right leg
CPT/HCPCS: 71046; 93971

== ENCOUNTER 2023-07-18 13:00 | Outpatient (REF) | payer MEDICARE, SELFPAY ==
[2023-07-18 16:41] LABS: Potassium 4.9 mmol/L (3.3-5.1)
== END 2023-07-18 13:01 | disposition home or self-care (01) ==
LOC: HO.HVNA 13:00
PROVIDERS: PCP Internal Medicine; Visit Provider Urology
DX: E87.5 Hyperkalemia (principal)
CPT/HCPCS: 36415; 84132

== ENCOUNTER 2023-07-21 12:06 | Outpatient (AMB) | payer MEDICARE, SELFPAY ==
--- NOTE | 2023-07-21 12:06 | A.OFFVIS_ITS ---
Intake Visit Reasons: 6 month follow up Intake Note: Patient is Present for Telephone Follow Up Urology Med:None Antibiotic Allergy: none Blood Thinner: none Patient has abdi catheter Previous visit pt denied SP Tube placement and can not CIC due to Legally Blind Allergies No Known Allergies [No Known Allergies*] Allergy (Verified 10/12/23 11:02) HPI Comments Details: Trupti is a 70-year-old female. Significant COPD with pacemaker and restriction in activity. She is seen for the following urologic conditions. - urinary retention Telemedicine Evaluation 15 min Consultation DoxSyndicatePlus Bassam Video attmpted Urinary retention Long-term Abdi catheter Failed voiding trials multiple times Legally blind and has VNA change catheter On UTI minimization with Vagifem tablet, antibiotic dose at time of catheter change Has had 2 UTI since last visit Trial ascorbic acid 2 acidify urine Six-month follow-up tele [facility] Medical History AAA (abdominal aortic aneurysm) Permanent atrial fibrillation Atrial fibrillation On beta mayra at home Legally blind Retention, urine Pneumonia Exercise hypoxemia GERD (gastroesophageal reflux disease) Hypertension Persistent atrial fibrillation COPD (chronic obstructive pulmonary disease) Dyspnea on exertion HTN (hypertension) Cardiac pacemaker in situ Sick sinus syndrome Surgical History History of endoscopy Hx of colonoscopy History of esophagogastroduodenoscopy (EGD) Hx of hysterectomy Hx of cardiac pacemaker History of radiofrequency ablation (RFA) for complex left atrial arrhythmia History of cardioversion Family History Father CHF (congestive heart failure) Cancer Pacemaker Mother Emphysema lung Social History Household Members: Spouse and Children Housing: House Do you presently have visiting nurse or other home services: Yes (VNA) Unable to assess alcohol history related to: Unknown Alcohol intake: former Patient Tobacco Use Status: Never used Tobacco Advance Directives Date on File: 07/26/22 service: No Review of Systems Const All systems reviewed & are unremarkable except as noted in HPI and below Reports no additional complaints Resp Reports no additional complaints GI Reports no additional complaints Reports as per HPI Musc Reports no additional complaints Physical Exam Telemedicine evaluation Appropriate responses Regular breathing rate and rhythm HEENT Head: Yes normal to inspection Ears: hearing grossly normal bilaterally Eyes General: appearance normal, both eyes and all related structures Neck Neck: Yes normal visual inspection Chest Chest palpation & inspection: normal inspection of the chest Resp Effort & Inspection: normal respiratory effort and able to speak in complete sentences Telehealth Telehealth Location of provider rendering services: practice address Location of patient: address on file Patient Identification confirmed using: Name, : Yes Telehealth method: voice only Patient verbally consented to treatment: Yes Patient verbally consented to billing insurance company: Yes Patient informed of any privacy concerns related to visit: Yes Assessment & Plan Assessment & Plan (1) Neurogenic bladder: Code(s): N31.9 - Neuromuscular dysfunction of bladder, unspecified Category: Medical Plan Suprapubic tube VNA can change Levaquin to take morning of catheter change Medications: New ascorbic acid (vitamin C) 1 g PO DAILY 90 tabs 1RF 90 days N31.9 - Neuromuscular dysfunction of bladder, unspecified, N39.0 - Urinary tract infection, site not specified Changed From levofloxacin 500 mg PO DAILY 5 days 5 tabs 0RF To levofloxacin take on day of catheter change 500 mg PO DAILY 6 tabs 0RF 6 days Refilled estradiol (Vagifem) 10 mcg vaginal 2XW 8 tabs 5RF 28 days R33.9 - Retention of urine, unspecified, N39.0 - Urinary tract infection, site not specified Patient Instructions: Imaging studies, laboratory and physical exam results were discussed and reviewed in detail. No major barriers to patient understanding were identified. An opportunity to ask questions regarding the treatment plan was provided. All questions were answered. The patient expressed understanding and agreement with the above treatment plan. The patient is aware they should contact our office by phone for worsening of their current condition or the appearance of new urologic symptoms. Compliance is encouraged with any medications and followup testing that is ordered. It is a privilege to participate in the urologic care of your patient. If you have any questions or concerns regarding treatment for the above conditions, or other urologic issues, please do not hesitate to contact me. The office telephone contact is [phone]. This note is constructed using voice recognition software. While every effort has been made to ensure accuracy can coverer errors may have been included. Yours sincerely, Dr Carlos Dixon MD, [facility] - Urology Providers of Expert, Compassionate Care for the Genitourinary System Coding Level of Care Code Tele Est Pt Level 3 (68062) Diagnoses Neurogenic bladder N31.9
== END 2023-07-21 12:27 | disposition home or self-care (01) ==
LOC: HO.HUSH 12:06
PROVIDERS: PCP Internal Medicine; Visit Provider Nurse Practitioner Family
DX: N31.9 Neuromuscular dysfunction of bladder, unspecified (principal)
CPT/HCPCS: 99499

== ENCOUNTER → 2023-07-21 12:06 | Outpatient (BNVA) | payer MEDICARE, SELFPAY | PROVIDERS: PCP Internal Medicine; Visit Provider Nurse Practitioner Family ==

== ENCOUNTER 2023-08-04 08:36 | Outpatient (AMB) | payer MEDICARE, SELFPAY ==
--- NOTE | 2023-08-04 08:38 | MHC.OFFVIS ---
Intake Visit Reasons: 6 month follow up Intake Note: Patient follow up for Gas bloat syndrome. Patient cc: abdominal pain every morning, denies any other GI issues. 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 Non-intractable vomiting with nausea, was given reglan 2. Poor nutrition, possibly attributed to amiodarone, given creon and on boost,carnation 3. diarrhea, was given carafate, omeprazole switched to ranitidine 4. chronic anemia, on xarelto, multiple polyps on colonoscopy, reactive gastropathy TESTS: EGD/Colonoscopy-- 08/2018-- dudeonal tubular adenoma, multiple colon polyps EGD/colonoscopy-02/13/19-several sessile polyps from colon removed, no further upper gi polyps, barretts esophagus colonoscopy 05/2022-- multiple polyps removed incl one with area of LGD LABS: 09/2018 C diff is negative, H pylori is negative, stool for white blood cells is negative, alk-phos is elevated at 129 but the remainder of the liver panel is normal renal panel somewhat improved with a GFR 54 (last measurement was 45), CBC is unremarkable IMAGING: CT abdomen and pelvis 09/2018 IMPRESSION: 1. Fusiform infrarenal abdominal aortic aneurysm 3.9 x 3.9 cm. 2. Distended urinary bladder, 12.3 cm in vertical dimension. No hydronephrosis or hydroureter. 3. No bowel obstruction or inflammatory changes in abdomen or pelvis. she came to ED 12/2020 with severe pneumonia and melena, was transferred to [facility] in [place] due to bed situation in [facility], very deconditioned now she was admitted with c diff treated with difcid INTERIM: she has some pain in the mornings usually, in the back and lower abdomen, takes diluadid and it goes away she has been taking welchol and is helping her denies nausea, unless eats too much she has normal formed stools no diarrhea no blood in stools she has colonoscopy scheduled for november A/P: 1/ back and abdominal pain, prob from her spinal issues and degeneration 2/ Hx of colonic polyps PLAN: 1/ cont with colsevelam 2/ colonoscopy as planned [facility] Medical History AAA (abdominal aortic aneurysm) Permanent atrial fibrillation Atrial fibrillation On beta mayra at home Legally blind Retention, urine Pneumonia Exercise hypoxemia GERD (gastroesophageal reflux disease) Hypertension Persistent atrial fibrillation COPD (chronic obstructive pulmonary disease) Dyspnea on exertion HTN (hypertension) Cardiac pacemaker in situ Sick sinus syndrome Surgical History History of endoscopy Hx of colonoscopy History of esophagogastroduodenoscopy (EGD) Hx of hysterectomy Hx of cardiac pacemaker History of radiofrequency ablation (RFA) for complex left atrial arrhythmia History of cardioversion Family History Father CHF (congestive heart failure) Cancer Pacemaker Mother Emphysema lung Social History Household Members: Spouse and Children Housing: House Do you presently have visiting nurse or other home services: Yes (VNA) Unable to assess alcohol history related to: Unknown Alcohol intake: former Patient Tobacco Use Status: Never used Tobacco Advance Directives Date on File: 07/26/22 service: No Telehealth Telehealth Telehealth Platform: Telephone Location of provider rendering services: practice address Location of patient: address on file Patient Identification confirmed using: Name, : Yes Telehealth method: voice only Patient verbally consented to treatment: Yes Patient verbally consented to billing insurance company: Yes Patient informed of any privacy concerns related to visit: Yes Minutes spent on Phone/Video with Pt.: 8 Assessment & Plan Assessment & Plan (1) Colon polyposis: Code(s): K63.5 - Polyp of colon Category: Medical Plan see above Coding Level of Care Code Tele Est Pt Level 3 (82722) Diagnoses Colon polyposis K63.5
== END 2023-08-04 09:20 | disposition home or self-care (01) ==
LOC: HO.HGI 08:36
PROVIDERS: PCP Internal Medicine; Visit Provider Internal Medicine Gastroenterology
DX: K63.5 Polyp of colon (principal)
CPT/HCPCS: 99441

== ENCOUNTER → 2023-08-04 08:36 | Outpatient (BNVA) | payer MEDICARE, SELFPAY | PROVIDERS: PCP Internal Medicine; Visit Provider Internal Medicine Gastroenterology ==

== ENCOUNTER 2023-09-05 13:00 | Outpatient (REF) | payer MEDICARE, SELFPAY ==
[2023-09-06 11:12] LABS: Basophils Percent Auto 0.3 % (0-2); Hematocrit 36.5 % (37.0-47.0); Hemoglobin 10.9 g/dl (12.0-16.0); Imm Gran Abs Auto 0.16 X10*3/uL (0.00-0.03); Imm Gran Pct Auto 1.5 % (0.0-0.4); Lymphocytes Absolute Auto 0.6 X10*3/uL (1.2-4.9); Lymphocytes Percent Auto 5.6 % (20-40); MANUAL DIFF FLAG SCAN; Mean Corpuscular HGB Conc 29.9 g/dl (31.0-35.0); Mean Corpuscular Hemoglobin 26.5 pg (27.0-33.0); Mean Corpuscular Volume 88.8 fL (80.0-98.0); Mean Platelet Volume 10.1 fL (9.4-12.3); Monocytes Absolute Auto 0.2 X10*3/uL (0.1-1.2); Monocytes Percent Auto 1.7 % (2-11); NRBC Pct Auto 0.2 /100WBC (0.0-0.2); Neutrophils Absolute Auto 9.5 x10*3/uL (2.0-8.3); Neutrophils Percent Auto 90.9 % (45-73); Platelet Count 316 X10*3/uL (160-400); Red Blood Count 4.11 X10*6/uL (4.20-5.50); SCAN SMEAR FLAG 1; White Blood Count 10.4 X10*3/uL (4.8-10.8)
[2023-09-06 12:02] LABS: SLIDE REVIEW VERIFIED
== END 2023-09-05 13:01 | disposition home or self-care (01) ==
LOC: HO.HVNA 13:00
PROVIDERS: Visit Provider Internal Medicine
DX: N28.9 Disorder of kidney and ureter, unspecified (principal)
CPT/HCPCS: 36415; 85025

== ENCOUNTER 2023-09-06 16:02 | Outpatient (REF) | payer MEDICARE, SELFPAY ==
[2023-09-06 16:14] LABS: Appearance Urine Clear; Color Urine Yellow; Glucose Urine UA Negative (Negative); Leukocyte Esterase Urine Large (3+) (Negative); Nitrite Urine Negative (Negative); UMIC TRIGGER UA YES; Urine Blood Negative (Negative); Urine Ketones Negative (Negative); Urine Protein Negative (Neg-Trace)
[2023-09-06 16:22] LABS: Bacteria Urine Trace (None Seen); RBC Urine 0-2 /HPF (0-2); Squamous Epithelial Cell Urine 0-2 /HPF (0-2); WBC Urine 21-50 /HPF (0-5)
[2023-09-06 16:36] LABS: Anion Gap 19 (12-20); Blood Urea Nitrogen 36 mg/dL (9-16); Calcium 8.6 mg/dL (8.4-10.2); Carbon Dioxide 19 mmol/L (22-29); Chloride 103 mmol/L (96-108); Estimated Glomerular Filt Rate 44; Glucose Random 197 mg/dL (60-115); Iron 47 mcg/dL (30-160); Magnesium 1.7 mg/dL (1.6-2.6); Percent Iron Saturation 12 % (15-50); Potassium 4.1 mmol/L (3.3-5.1); Sodium 137 mmol/L (135-145); Total Iron Binding Capacity 405 mcg/dL (228-428); Unsaturated Iron Binding 358 ug/dL
[2023-09-06 16:49] LABS: Ferritin 79 ng/mL (10-250)
== END 2023-09-06 16:03 | disposition home or self-care (01) ==
LOC: HO.HVNA 16:02
PROVIDERS: Internal Medicine; Visit Provider Urology
DX: D64.9 Anemia, unspecified (principal); N39.0 Urinary tract infection, site not specified; N28.9 Disorder of kidney and ureter, unspecified
CPT/HCPCS: 36415; 80048; 81001; 82728; 83540; 83735; 87086

== ENCOUNTER 2023-09-20 10:17 | Outpatient (REF) | payer MEDICARE, MEDICAID, SELFPAY ==
--- NOTE | ~2023-09-20 | XR_ITS ---
EXAMINATION: XR LEFT FEMUR, 4 VIEWS XR PELVIS, SINGLE VIEW CLINICAL INFORMATION: Pain COMPARISON: None available. TECHNIQUE: Single view the pelvis 4 views of the left hip FINDINGS: No acute visible fracture or dislocation. 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 Nonspecific increased sclerosis of the left femoral head. Multicompartment arthritic changes of the knee. Degenerative changes of the lumbosacral spine. Joint space alignment are maintained. Surgical clips in the pelvis. Bowel gas is unremarkable. Soft tissues are unremarkable. Atherosclerotic calcifications are noted. XR/XR femur LT 2V IMPRESSION: 1. No acute visible fracture or dislocation. 2. 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 3. Nonspecific increased sclerosis of the left femoral head. 4. Multicompartment arthritic changes of the knee.
--- NOTE | ~2023-09-20 | XR_ITS ---
EXAMINATION: XR LEFT FEMUR, 4 VIEWS XR PELVIS, SINGLE VIEW CLINICAL INFORMATION: Pain COMPARISON: None available. TECHNIQUE: Single view the pelvis 4 views of the left hip FINDINGS: No acute visible fracture or dislocation. 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 Nonspecific increased sclerosis of the left femoral head. Multicompartment arthritic changes of the knee. Degenerative changes of the lumbosacral spine. Joint space alignment are maintained. Surgical clips in the pelvis. Bowel gas is unremarkable. Soft tissues are unremarkable. Atherosclerotic calcifications are noted. XR/XR pelvis 1-2V IMPRESSION: 1. No acute visible fracture or dislocation. 2. 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 3. Nonspecific increased sclerosis of the left femoral head. 4. Multicompartment arthritic changes of the knee.
[2023-09-20 11:05] LABS: MANUAL DIFF FLAG NO
[2023-09-20 13:09] LABS: Anion Gap 15 (12-20); Blood Urea Nitrogen 19 mg/dL (9-16); Calcium 8.3 mg/dL (8.4-10.2); Carbon Dioxide 18 mmol/L (22-29); Chloride 109 mmol/L (96-108); Estimated Glomerular Filt Rate 50; Glucose Random 96 mg/dL (60-115); Iron 34 mcg/dL (30-160); Percent Iron Saturation 9 % (15-50); Potassium 4.4 mmol/L (3.3-5.1); Sodium 138 mmol/L (135-145); Total Iron Binding Capacity 359 mcg/dL (228-428); Unsaturated Iron Binding 325 ug/dL
[2023-09-20 13:16] LABS: Ferritin 89 ng/mL (10-250)
[2023-09-20 13:27] LABS: Folate 13.9 ng/mL (> or = 4.0); Vitamin B12 278 pg/mL (200-900)
[2023-09-20 13:40] LABS: Basophils Absolute Auto 0.1 X10*3/uL (0.0-0.2); Basophils Percent Auto 0.6 % (0-2); Eosinophils Absolute Auto 0.2 X10*3/uL (0.0-0.4); Eosinophils Percent Auto 2.2 % (0-4); Hematocrit 35.4 % (37.0-47.0); Hemoglobin 10.9 g/dl (12.0-16.0); Imm Gran Abs Auto 0.09 X10*3/uL (0.00-0.03); Lymphocytes Absolute Auto 1.3 X10*3/uL (1.2-4.9); Lymphocytes Percent Auto 14.9 % (20-40); Mean Corpuscular HGB Conc 30.8 g/dl (31.0-35.0); Mean Corpuscular Hemoglobin 26.2 pg (27.0-33.0); Mean Corpuscular Volume 85.1 fL (80.0-98.0); Mean Platelet Volume 9.8 fL (9.4-12.3); Monocytes Absolute Auto 0.7 X10*3/uL (0.1-1.2); Monocytes Percent Auto 7.5 % (2-11); Neutrophils Absolute Auto 6.6 x10*3/uL (2.0-8.3); Neutrophils Percent Auto 73.8 % (45-73); Platelet Count 268 X10*3/uL (160-400); Red Blood Count 4.16 X10*6/uL (4.20-5.50); Red Cell Distribution Width 15.9 % (11.0-16.0); White Blood Count 8.9 X10*3/uL (4.8-10.8)
== END 2023-09-20 10:18 | disposition home or self-care (01) ==
LOC: HO.LAB 10:17
PROVIDERS: Absent Provider Internal Medicine; PCP Internal Medicine; Visit Provider Urology
DX: M25.552 Pain in left hip (principal); E87.5 Hyperkalemia; D64.9 Anemia, unspecified; N28.9 Disorder of kidney and ureter, unspecified
CPT/HCPCS: 36415; 72170; 73552; 80048; 82607; 82728; 82746; 83540; 83735; 85025

== ENCOUNTER 2023-10-12 10:56 | Outpatient (AMB) | payer MEDICARE, SELFPAY ==
[2023-10-12 10:58] VITALS: BMI 28.3
--- NOTE | 2023-10-12 10:58 | A.OFFVIS_ITS ---
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 Patient reports her pain has been present for 5 months. Denies injury. She was seen by her PCP who ordered xrays and referred to orthopedics. Patient finds relief with taking Hydrocodone. Allergies No Known Allergies [No Known Allergies*] Allergy (Verified 10/12/23 11:02) Medication List - Last Reconciled 10/12/23 by Justin Berumen PA-C albuterol sulfate 90 mcg/actuation 2 puffs inhalation Q6H PRN ascorbic acid (vitamin C) 1 g PO DAILY 90 days calcium carbonate (Tums) 200 mg PO TID PRN calcium carbonate 260 mg PO DAILY [catheter insertion kit As directed- 2 kits per month] [catheter irrigation kit As directed- 2 kits per month] cholecalciferol (vitamin D3) 25 mcg PO DAILY colesevelam 1,250 mg (2 x 625 mg) PO BID docusate sodium 100 mg PO BID escitalopram oxalate 10 mg PO DAILY estradiol 0.01%(0.1mg/gram) vaginal estradiol (Vagifem) 10 mcg vaginal 2XW 28 days fluconazole 150 mg PO Q3D 2 doses fluconazole 150 mg PO Q3D 2 doses [abdi catheters As directed- 2 catheters per month] folic acid 1 mg PO DAILY hydrocodone-acetaminophen 7.5-325 mg 1 tab PO Q6H PRN ipratropium-albuterol 0.5 mg-3 mg(2.5 mg base)/3 mL 3 mL inhalation Q4-6H PRN Lactobacillus acidophilus 2,000 mmu cells (2 x 1 billion cell) PO DAILY lansoprazole 30 mg PO DAILY [leg bags 2 catheter leg bags per month] levofloxacin 500 mg PO DAILY 6 days levofloxacin 500 mg PO DAILY 5 days methenamine hippurate 1 g PO DAILY 90 days metoprolol succinate ER 25 mg PO BID [night bags As directed- 1 catheter night bag per month] nitrofurantoin monohyd/m-cryst 100 mg (Macrobid) 100 mg PO BID 7 days ondansetron HCl 4 mg PO Q6H PRN prochlorperazine maleate 5 mg PO Q12H PRN 30 days rivaroxaban (Xarelto) 20 mg PO QPM simethicone (Anti-Gas Ultra Strength) 180 mg PO BID simvastatin 40 mg PO BEDTIME sodium,potassium,mag sulfates 17.5-3.13-1.6 gram (Suprep Bowel Prep Kit) DILUTE; drink 1/2 at 6-8 pm and half at 11 PM- 1AM [sterile water As directed for abdi catheter irrigation ] zinc sulfate 50 mg PO DAILY HPI 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 She was seen by her PCP who ordered x-rays, suggested to avoid any type of exercises, and referred her to our office. She states she has pain that started in her groin and radiated to her sides. She currently denies any groin pain however she has fluctuating dull achy pain at the lateral aspect of her hip that is aggravated with going upstairs and throughout the day. She denies any numbness, tingling, or pain with ambulation or sleeping at night. She has not had any injection in the past. She takes Vicodin twice a day with mild relief. She does not have a history of diabetes. [facility] Medical History AAA (abdominal aortic aneurysm) Permanent atrial fibrillation Atrial fibrillation On beta mayra at home Legally blind Retention, urine Pneumonia Exercise hypoxemia GERD (gastroesophageal reflux disease) Hypertension Persistent atrial fibrillation COPD (chronic obstructive pulmonary disease) Dyspnea on exertion HTN (hypertension) Cardiac pacemaker in situ Sick sinus syndrome Surgical History History of endoscopy Hx of colonoscopy History of esophagogastroduodenoscopy (EGD) Hx of hysterectomy Hx of cardiac pacemaker History of radiofrequency ablation (RFA) for complex left atrial arrhythmia History of cardioversion Family History Father CHF (congestive heart failure) Cancer Pacemaker Mother Emphysema lung Social History Household Members: Spouse and Children Housing: House Do you presently have visiting nurse or other home services: Yes (VNA) Unable to assess alcohol history related to: Unknown Alcohol intake: former Patient Tobacco Use Status: Never used Tobacco Advance Directives Date on File: 07/26/22 service: No Review of Systems Const All systems reviewed & are unremarkable except as noted in HPI and below Physical Exam Vital Signs: BMI result Body Mass Index 28.3 Const General: cooperative, healthy appearing, comfortable, no acute distress, well developed and alert Orientation/consciousness: patient oriented x3 HEENT Head: Yes normal to inspection, Yes normocephalic and Yes atraumatic Eyes General: appearance normal, both eyes and all related structures Resp Effort & Inspection: normal respiratory effort and able to speak in complete sentences Cardio Rate: regular rate Peripheral pulses: Peripheral pulses 2+ throughout GI Palpation (GI): Soft to palpation Skin Lesions: no lesions Rashes: no rashes Neuro General: patient oriented x3 Extrem Other: Left hip: Normal to inspection. No pain with ROM of the hip. Pain along the greater trochanter. No pain with hip flexion or abduction. Negative tenderness along the SI joint, Negative SLR. NVI. Office Procedures Joint Injection/Aspiration Joint Injection/Aspiration Details: left hip bursa Prep: site was prepped using aseptic technique, ethochloride spray was applied and injection warnings given Injected: 80 mg of, DepoMedrol, with 8 mL of and 1% plain lidocaine Procedure: The patient tolerated the procedure well and there was some relief with the local anesthesia Coding 38761 - Glenohumeral/Tronchanteric Bursa/Intraarticular Procedure code (CPT) selection complete Results Reviewed Results Reviewed: xrays of the left hip obtained on 09/20/23 XR pelvis 1-2V IMPRESSION: 1. No acute visible fracture or dislocation. 2. 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 3. Nonspecific increased sclerosis of the left femoral head. 4. Multicompartment arthritic changes of the knee. Assessment & Plan Assessment & Plan (1) Trochanteric bursitis, left hip: Code(s): M70.62 - Trochanteric bursitis, left hip Category: Medical Plan We discussed options today, which include steroid injection. The patient did consent to move forward with the left hip injection, which was tolerated well. I recommended rest, ice, and elevation and OTC anti-inflammatories as needed for discomfort. If symptoms persist or worsen over the next 6-8 weeks, patient will contact the office, otherwise follow-up as needed. ? Orders: Orders PT Evaluation and Treatment Today M70.62 - Trochanteric bursitis, left hip Patient Instructions: Scribed for Justin Berumen PA-C, by Con Cross medical data analyst, on 10/12/2023 at 11:00 AM EST.? I, Justin Berumen PA-C, have personally reviewed and agree with the information entered by the scribe. Coding Level of Care Code New Pt Level 3 (94554) Complex EM visit Add On G2211 Diagnoses Trochanteric bursitis, left hip M70.62 CPT Codes Coding - Joint 7: 33888 - Glenohumeral/Tronchanteric Bursa/Intraarticular ([id number])
== END 2023-10-12 11:30 | disposition home or self-care (01) ==
PROVIDERS: PCP Internal Medicine; Visit Provider Physician Assistant
DX: M70.62 Trochanteric bursitis, left hip (principal)
CPT/HCPCS: 20610; 99203

== ENCOUNTER → 2023-10-12 10:56 | Outpatient (BNVA) | payer MEDICARE, SELFPAY | PROVIDERS: PCP Internal Medicine; Visit Provider Physician Assistant | DX: M70.62 Trochanteric bursitis, left hip (principal) | CPT/HCPCS: 20610; 99202; J1010 ==

== ENCOUNTER → 2023-11-03 23:59 | Outpatient (BNV) | payer MEDICARE, SELFPAY ==
--- NOTE | 2023-11-06 12:56 | MHC.OFFVIS ---
Intake Visit Reasons: Remote Device Check- Medtronic Allergies No Known Allergies [No Known Allergies*] Allergy (Verified 10/12/23 11:02) PFSH Medical History AAA (abdominal aortic aneurysm) Permanent atrial fibrillation Atrial fibrillation On beta mayra at home Legally blind Retention, urine Pneumonia Exercise hypoxemia GERD (gastroesophageal reflux disease) Hypertension Persistent atrial fibrillation COPD (chronic obstructive pulmonary disease) Dyspnea on exertion HTN (hypertension) Cardiac pacemaker in situ Sick sinus syndrome Surgical History History of endoscopy Hx of colonoscopy History of esophagogastroduodenoscopy (EGD) Hx of hysterectomy Hx of cardiac pacemaker History of radiofrequency ablation (RFA) for complex left atrial arrhythmia History of cardioversion Family History Father CHF (congestive heart failure) Cancer Pacemaker Mother Emphysema lung Social History Household Members: Spouse and Children Housing: House Do you presently have visiting nurse or other home services: Yes (VNA) Unable to assess alcohol history related to: Unknown Alcohol intake: former Patient Tobacco Use Status: Never used Tobacco Advance Directives Date on File: 07/26/22 service: No Office Procedures Cardiac Device Check Cardiac Device Check Details: Remote pacemaker report generated 11/03/2023. Pacemaker function is adequate [id number] Cardiac Device Interrogation, pacemaker Procedure code (CPT) selection complete Assessment & Plan Assessment & Plan (1) Cardiac pacemaker in situ: Code(s): Z95.0 - Presence of cardiac pacemaker Category: Medical Plan: See above Coding Level of Care Code Procedure Only Diagnoses Cardiac pacemaker in situ Z95.0 CPT Codes Cardiac Device Check - Cardiac Device 12: [id number] Cardiac Device Interrogation, pacemaker ([id number])
== END ==
PROVIDERS: PCP Internal Medicine; Visit Provider Internal Medicine Cardiovascular Disease
DX: Z45.018 Encounter for adjustment and management of other part of cardiac pacemaker (principal)
CPT/HCPCS: 93294

== ENCOUNTER → 2023-11-03 23:59 | Outpatient (BNV) | payer MEDICARE, SELFPAY ==
--- NOTE | 2023-11-15 11:47 | MHC.OFFVIS ---
Intake Visit Reasons: Remote Device Check- [employer] Allergies No Known Allergies [No Known Allergies*] Allergy (Verified 10/12/23 11:02) PFSH Medical History AAA (abdominal aortic aneurysm) Permanent atrial fibrillation Atrial fibrillation On beta mayra at home Legally blind Retention, urine Pneumonia Exercise hypoxemia GERD (gastroesophageal reflux disease) Hypertension Persistent atrial fibrillation COPD (chronic obstructive pulmonary disease) Dyspnea on exertion HTN (hypertension) Cardiac pacemaker in situ Sick sinus syndrome Surgical History History of endoscopy Hx of colonoscopy History of esophagogastroduodenoscopy (EGD) Hx of hysterectomy Hx of cardiac pacemaker History of radiofrequency ablation (RFA) for complex left atrial arrhythmia History of cardioversion Family History Father CHF (congestive heart failure) Cancer Pacemaker Mother Emphysema lung Social History Household Members: Spouse and Children Housing: House Do you presently have visiting nurse or other home services: Yes (VNA) Unable to assess alcohol history related to: Unknown Alcohol intake: former Patient Tobacco Use Status: Never used Tobacco Advance Directives Date on File: 07/26/22 service: No Office Procedures Cardiac Device Check Cardiac Device Check Details: Remote pacemaker report generated 11/03/2023. I was requested to read this study today. Pacemaker function is adequate. Atrial fibrillation with high ventricular rate noted. [id number] Cardiac Device Interrogation, pacemaker Procedure code (CPT) selection complete Assessment & Plan Assessment & Plan (1) Cardiac pacemaker in situ: Code(s): Z95.0 - Presence of cardiac pacemaker Category: Medical Plan: See above Coding Level of Care Code Procedure Only Diagnoses Cardiac pacemaker in situ Z95.0 CPT Codes Cardiac Device Check - Cardiac Device 12: [id number] Cardiac Device Interrogation, pacemaker ([id number])
== END ==
PROVIDERS: PCP Internal Medicine; Visit Provider Internal Medicine Cardiovascular Disease
DX: I48.91 Unspecified atrial fibrillation (principal); Z95.0 Presence of cardiac pacemaker
CPT/HCPCS: 93294

== ENCOUNTER 2023-11-22 06:55 | Day surgery (SDC) | payer MEDICARE, SELFPAY ==
[2023-11-17 14:18] VITALS: BMI 28.5
--- NOTE | 2023-11-21 09:02 | HO.ANESPROP2 ---
Documented by User: Brittany Alfred NP 11/21/23 09:06 HPI - Anesthesia Eval Consult details Narrative: 72yo F for Colonoscopy Follows [facility] Cardiology [id number]. Last office visit 06/2023. Stable. chronic MOTT Pacer in situ Xarelto for afib PMFSH Active Problems Active Problems: All Active Problems Trochanteric bursitis, left hip (Acute) Gas bloat syndrome (Acute) Abnormal EKG (Acute) Nausea & vomiting (Acute) Colon polyposis (Acute) C. difficile diarrhea (Acute) Diarrhea (Acute) Malnutrition (Acute) Dyspnea (Acute) Leukocytopenia (Acute) Neurogenic bladder (Acute) Diarrhea (Acute) Chronic respiratory failure (Acute) Sick sinus syndrome (Acute) Retention, urine (Acute) Pneumonia (Acute) Exercise hypoxemia (Acute) Persistent atrial fibrillation (Acute) COPD (chronic obstructive pulmonary disease) (Acute) Dyspnea on exertion (Acute) HTN (hypertension) (Acute) Cardiac pacemaker in situ (Acute) Past Medical History Medical History AAA (abdominal aortic aneurysm) Permanent atrial fibrillation Atrial fibrillation On beta mayra at home Legally blind Retention, urine Pneumonia Exercise hypoxemia GERD (gastroesophageal reflux disease) Hypertension Persistent atrial fibrillation COPD (chronic obstructive pulmonary disease) Dyspnea on exertion HTN (hypertension) Cardiac pacemaker in situ Sick sinus syndrome Family History Family History Father CHF (congestive heart failure) Cancer Pacemaker Mother Emphysema lung Family history of problems with anesthesia: No Surgical History Surgical History History of endoscopy Hx of colonoscopy History of esophagogastroduodenoscopy (EGD) Hx of hysterectomy Hx of cardiac pacemaker History of radiofrequency ablation (RFA) for complex left atrial arrhythmia History of cardioversion History of Problems with Anesthesia: No Social History Social History Household Members: Spouse and Children Housing: House Are you a primary inspector health care facilities to a significant other at home: No Do you presently have visiting nurse or other home services: No Unable to assess alcohol history related to: Unknown Alcohol intake: former Patient Tobacco Use Status: Former Tobacco user Have you been hit, kicked, punched, or otherwise hurt by someone within the past year? If so, by whom?: No Advance Directives: No Advance Directives Information Provided: Yes Advance Directives Date on File: 07/26/22 Recently lost weight without trying: No Nutrition Risks: No Nutritional Risk Patient : No service: No Meds Allergies Allergy/AdvReac Type Severity Reaction Status Date / Time No Known Allergies Allergy Verified 10/12/23 11:02 [No Known Allergies*] Home Medications ?Medication ?Instructions ?Recorded ?Confirmed ?Last Taken ?Type folic acid 1 mg tablet 1 mg PO DAILY 04/07/20 11/17/23 10/01/22 History simvastatin 40 mg tablet 40 mg PO BEDTIME 02/10/21 11/17/23 10/01/22 History albuterol sulfate 90 mcg/actuation 2 puff inhalation Q6H PRN wheezing 05/12/22 11/17/23 10/01/22 History aerosol inhaler hydrocodone 7.5 mg-acetaminophen 1 tab PO Q6H PRN severe pain 05/12/22 11/17/23 10/01/22 History 325 mg tablet ipratropium 0.5 mg-albuterol 3 mg 3 ml inhalation Q4-6H PRN wheezing 05/12/22 11/17/23 10/01/22 History (2.5 mg base)/3 mL nebulization soln docusate sodium 100 mg capsule 100 mg PO BID 02/10/23 11/17/23 Unknown History escitalopram oxalate 10 mg tablet 10 mg PO DAILY 02/10/23 11/17/23 Unknown History calcium carbonate 260 mg PO DAILY 06/08/23 11/17/23 Unknown History cholecalciferol (vitamin D3) 25 25 mcg PO DAILY 06/08/23 11/17/23 Unknown History mcg (1,000 unit) capsule Exam Height,Weight and Vital Signs: Height 5 ft 3 in Weight 73.028 kg Pertinent Lab Results Pertinent Lab Results: Laboratory Tests 09/20/23 11:03 WBC 8.9 Hgb 10.9 L Hct 35.4 L Plt Count 268 Sodium 138 Potassium 4.4 Chloride 109 H Carbon Dioxide 18 L BUN 19 H Creatinine 1.07 Narrative Narrative: Cardiac Device Check 06/2023 Details: Dual-chamber Medtronic pacemaker in place, programmed in VVIR due to chronic atrial fibrillation. Minimal ventricular pacing noted. Ventricular pacing thresholds elevated and reprogrammed to provide adequate safety. Ventricular sensing is adequate. Pacing lead impedance is stable. Battery life is about 13 months [id number] Cardiac Device Check, pacemaker dual lead EKG 2022 Vent. Rate : 062 BPM Atrial Rate : 000 BPM P-R Int : 000 ms QRS Dur : 084 ms QT Int : 382 ms P-R-T Axes : 000 -14 239 degrees QTc Int : 387 ms Atrial fibrillation with frequent ventricular-paced complexes ST & T wave abnormality, consider inferior ischemia ST & T wave abnormality, consider anterolateral ischemia Abnormal ECG When compared with ECG of 05-OCT-2022 08:04, Vent. rate has increased BY 2 BPM ECHO 2022 Conclusions: - Normal left ventricular size and systolic function. There is mildly increased left ventricular wall thickness. The visually estimated ejection fraction is between 60-65%. - Normal right ventricular cavity size and systolic function. - The left atrium is severely dilated. The right atrium is normal in size. - There is moderate mitral valve regurgitation. Assessment and Plan Assessment Anesthesia Assessment: Chart Reviewed Final Anesthetic Review Family History of Problems with Anesthesia: No History of Problems with Anesthesia: No Documented by User: Fariba Villaviecncio MD 11/22/23 10:00 [facility] Past Medical History Medical History AAA (abdominal aortic aneurysm) Permanent atrial fibrillation Atrial fibrillation On beta mayra at home Legally blind Retention, urine Pneumonia Exercise hypoxemia GERD (gastroesophageal reflux disease) Hypertension Persistent atrial fibrillation COPD (chronic obstructive pulmonary disease) Dyspnea on exertion HTN (hypertension) Cardiac pacemaker in situ Sick sinus syndrome Family History Family History Father CHF (congestive heart failure) Cancer Pacemaker Mother Emphysema lung Surgical History Surgical History History of endoscopy Hx of colonoscopy History of esophagogastroduodenoscopy (EGD) Hx of hysterectomy Hx of cardiac pacemaker History of radiofrequency ablation (RFA) for complex left atrial arrhythmia History of cardioversion Social History Social History Household Members: Spouse and Children Housing: House Are you a primary inspector health care facilities to a significant other at home: No Do you presently have visiting nurse or other home services: No Unable to assess alcohol history related to: Unknown Alcohol intake: former Patient Tobacco Use Status: Former Tobacco user Have you been hit, kicked, punched, or otherwise hurt by someone within the past year? If so, by whom?: No Advance Directives: No Advance Directives Information Provided: Yes Advance Directives Date on File: 07/26/22 Recently lost weight without trying: No Nutrition Risks: No Nutritional Risk Patient : No service: No Meds Allergies Allergy/AdvReac Type Severity Reaction Status Date / Time No Known Allergies Allergy Verified 10/12/23 11:02 [No Known Allergies*] Home Medications ?Medication ?Instructions ?Recorded ?Confirmed ?Last Taken ?Type folic acid 1 mg tablet 1 mg PO DAILY 04/07/20 11/17/23 10/01/22 History simvastatin 40 mg tablet 40 mg PO BEDTIME 02/10/21 11/17/23 10/01/22 History albuterol sulfate 90 mcg/actuation 2 puff inhalation Q6H PRN wheezing 05/12/22 11/17/23 10/01/22 History aerosol inhaler hydrocodone 7.5 mg-acetaminophen 1 tab PO Q6H PRN severe pain 05/12/22 11/17/23 10/01/22 History 325 mg tablet ipratropium 0.5 mg-albuterol 3 mg 3 ml inhalation Q4-6H PRN wheezing 05/12/22 11/17/23 10/01/22 History (2.5 mg base)/3 mL nebulization soln docusate sodium 100 mg capsule 100 mg PO BID 02/10/23 11/17/23 Unknown History escitalopram oxalate 10 mg tablet 10 mg PO DAILY 02/10/23 11/17/23 Unknown History calcium carbonate 260 mg PO DAILY 06/08/23 11/17/23 Unknown History cholecalciferol (vitamin D3) 25 25 mcg PO DAILY 06/08/23 11/17/23 Unknown History mcg (1,000 unit) capsule Exam Airway Mallampati Class: II TM Dist: >3cm Neck ROM: Full Heart: rrr Lungs: cta Assessment and Plan Assessment Anesthesia Assessment: Anesthesia Plan Discussed Final Anesthetic Review NPO: Yes ASA Class: III Final Preanesthetic Review: No Changes in Pt Med Stat, Meds/Allgs Chart Reviewed, Consent Obtained/Reviewed and Anes Risks/Benef Reviewed Patient Risk: Intermediate Procedure Risk: Low Anesthetic Plan Anesthetic Plan: MAC: Disposition: Standard PACU
[2023-11-22 09:18] VITALS: BP 98/84; PULSE 120; RESP 18; TEMP 36.5; O2SAT 98; BMI 28.5
--- NOTE | 2023-11-22 09:33 | P.HPSUR_ITS ---
Pre-Procedural Eval Section A - 24 Hr Update-Section A only Date of Service: 11/22/23 Section B - Complete if H&P > 30 days Chief Complaint: Other specified diseases of the digestive system Relevant Family History (Specify if Yes): No Relevant Social History: None Present Medications: None Medical History: Significant History (AAA (abdominal aortic aneurysm) Permanent atrial fibrillation Atrial fibrillation On beta mayra at home Legally blind Retention, urine Pneumonia Exercise hypoxemia GERD (gastroesophageal reflux disease) Hypertension Persistent atrial fibrillation COPD (chronic obstructive p ulmonary disease) Dyspne) History of Previous Operations: Relevant previous surgery/procedure and date(s) (History of endoscopy Hx of colonoscopy History of esophagogastroduodenoscopy (EGD) Hx of hysterectomy Hx of cardiac pacemaker History of radiofrequency ablation (RFA) for complex left atrial arrhythmia History of cardioversion) Allergies: Allergies Allergy/AdvReac Type Severity Reaction Status Date / Time No Known Allergies Allergy Verified 10/12/23 11:02 [No Known Allergies*] Review of Systems Sugical H&P ROS: Negative: Constitution, Cardiovascular, Respiratory, Neurological, Psychiatric, Hem-Onc, Allergic/Immunologic, Gastrointestinal, Genitourinary, Musculoskeletal, Integumentary, Endocrine and Eyes/Ears/Nose/Throat Exam Surgical H&P Exam: Normal: HEENT, Normal: Heart, Normal: Lungs, Normal: Extremities, Normal: Abdomen, Normal: Skin and Normal: Neurological Plan Diagnosis/Plan: Unchanged I have reviewed the history and physical and performed a pertinent physical examination on my patient. No changes have occurred unless specified. Time Spent With Patient Time: Total time managing care of this patient today ____ minutes.
--- NOTE | 2023-11-22 10:28 | HO.OPN-COLON ---
Colonoscopy Operative Note Operative Note Date of Service: 11/22/23 Narrative: Operative Information Procedure Description: Colonoscopy Indication: hx of colon polyps Anesthesia: MAC COLONOSCOPY Instrument: Olympus variable stiffness ADULT scope 190L Colonoscopy Monitoring: Vital signs and clinical assessment, continuous EKG monitoring, Pulse oximetry, Carbon Dioxide monitoring and blood pressure monitoring were done throughout the procedure. Colon withdrawal time was 23 minutes. Procedure: The patient was placed in the left lateral decubitis position and pre-procedure medications were administered. After a digital rectal examination of the ano-rectum, the video colonoscope was inserted into the rectum and advanced through the colon to the cecum/TI. The colonoscope was slowly withdrawn in a retrograde panoramic fashion and the colon mucosa was carefully examined including a retroflexed view of the rectum. Findings and interventions are described below. Procedure Difficulty: moderate Findings: Terminal Ileum-not intubated Cecum: x2 sessile polyps 3-5 mm removed with cold forceps, 8-10 mm C shaped sessile polyp, lifted with eleview and [id number] piece meal with cold forceps and cold snare with residual tissue ablated using APC> Ascending Colon: x4 sessile polyps 4-6 mm removed with cold forceps Transverse Colon - x 7 sessile polyps 8-10 mm removed with cold snare Descending Colon:normal Sigmoid Colon: moderate diverticulosis Rectum: Retroflexion with small internal hemorrhoids seen, grade I, 3-4 mm sessile polyp removed with cold snare Anorectum - normal Intervention: cold snare, cold forceps, eleview, APC ablation Colon preparation: [place] Bowel Preparation Scale Right colon; 2 Transverse colon: 2 Left colon; 2 (0 = Unprepared colon segment with mucosa not seen due to solid stool that cannot be cleared. 1 = Portion of mucosa of the colon segment seen, but other areas of the colon segment not well seen due to staining, residual stool and/or opaque liquid. 2 = Minor amount of residual staining, small fragments of stool and/or opaque liquid, but mucosa of colon segment seen well. 3 = Entire mucosa of colon segment seen well with no residual staining, small fragments of stool or opaque liquid) Impression and Post Procedure Diagnosis: diverticulosis colon polyps internal hemorrhoids Plan: High fiber diet leaflet Avoid straining at stool, epsom salts and sitz bath, anusol supps or cream Repeat Colonoscopy in 6-8 months to review the cecal area or earlier if clinically indicated --patient indicated she might not come back for colonoscopy, other option is colectomy Above findings were reviewed with the patient and relevant handouts were provided if indicated.
[2023-11-22 10:32] VITALS: BP 126/90; PULSE 102; RESP 16; TEMP 36.1; O2SAT 98
[2023-11-22 10:45] VITALS: BP 127/86; PULSE 91; RESP 16; O2SAT 98
[2023-11-22 11:00] VITALS: BP 135/96; PULSE 83; RESP 16; TEMP 36.2; O2SAT 97
== END 2023-11-22 11:51 | disposition home or self-care (01) ==
PROVIDERS: PCP Internal Medicine; Visit Provider Internal Medicine Gastroenterology
PROC: 0DJD8ZZ Inspection of Lower Intestinal Tract, Via Natural or Artificial Opening Endoscopic (ICD-10-PCS; CPT 45378; principal; 2023-11-22 10:00)
DX: Z12.11 Encounter for screening for malignant neoplasm of colon (principal); Z86.0101 Personal history of adenomatous and serrated colon polyps; D12.0 Benign neoplasm of cecum; D12.2 Benign neoplasm of ascending colon; D12.3 Benign neoplasm of transverse colon; D12.8 Benign neoplasm of rectum; K57.30 Diverticulosis of large intestine without perforation or abscess without bleeding; K64.0 First degree hemorrhoids; R14.0 Abdominal distension (gaseous); K21.9 Gastro-esophageal reflux disease without esophagitis; I48.19 Other persistent atrial fibrillation; J44.9 Chronic obstructive pulmonary disease, unspecified; I10 Essential (primary) hypertension; D64.89 Other specified anemias; I49.5 Sick sinus syndrome; Z95.0 Presence of cardiac pacemaker; H54.8 Legal blindness, as defined in USA; Z79.899 Other long term (current) drug therapy; Z98.890 Other specified postprocedural states
CPT/HCPCS: 45385; 45380; 45381; 88305; J2003; J2371; J2704

== ENCOUNTER → 2023-11-22 06:55 | Outpatient (BNV) | payer MEDICARE, SELFPAY | PROVIDERS: PCP Internal Medicine; Visit Provider Internal Medicine Gastroenterology | DX: Z12.11 Encounter for screening for malignant neoplasm of colon (principal); Z86.0100 Personal history of colon polyps, unspecified; D12.3 Benign neoplasm of transverse colon; D12.2 Benign neoplasm of ascending colon; D12.0 Benign neoplasm of cecum; D12.8 Benign neoplasm of rectum | CPT/HCPCS: 45380; 45381; 45385 ==

== ENCOUNTER 2023-11-25 13:43 | Outpatient (REF) | payer MEDICARE, SELFPAY ==
[2023-11-25 14:05] LABS: Appearance Urine Cloudy; Color Urine RED; Glucose Urine UA Negative (Negative); Leukocyte Esterase Urine Small (1+) (Negative); Nitrite Urine Negative (Negative); PH 5.5 (5.0-9.0); UMIC TRIGGER UA YES; Urine Blood Large (3+) (Negative); Urine Ketones Negative (Negative); Urine Protein 30 (1+) mg/dL (Neg-Trace)
[2023-11-25 14:17] LABS: Bacteria Urine 1+ (None Seen); Hyaline Casts Urine 0-2 /LPF (0-2); RBC Urine >20 /HPF (0-2); Squamous Epithelial Cell Urine 0-2 /HPF (0-2)
== END 2023-11-25 13:44 | disposition home or self-care (01) ==
LOC: HO.LNP 13:43
PROVIDERS: Visit Provider Internal Medicine
DX: R31.9 Hematuria, unspecified (principal)
CPT/HCPCS: 81001; 81003; 87086

== ENCOUNTER 2023-12-15 10:30 | Outpatient (REF) | payer MEDICARE, SELFPAY ==
[2023-12-15 14:58] LABS: CDiff Gene PCR NEGATIVE (Negative)
== END 2023-12-15 10:31 | disposition home or self-care (01) ==
LOC: HO.HMGCLNP 10:30
PROVIDERS: Visit Provider Nurse Practitioner Gerontology
DX: R19.7 Diarrhea, unspecified (principal)
CPT/HCPCS: 87493

== ENCOUNTER 2023-12-18 12:38 | Outpatient (AMB) | payer MEDICARE, SELFPAY ==
[2023-12-18 13:03] VITALS: BP 110/58; PULSE 80; BMI 28.9
--- NOTE | 2023-12-18 13:03 | MHC.OFFVIS ---
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 Allergies No Known Allergies [No Known Allergies*] Allergy (Verified 10/12/23 11:02) Medication List - Last Reconciled 12/18/23 by Freddy Pugh MD albuterol sulfate 90 mcg/actuation 2 puffs inhalation Q6H PRN ascorbic acid (vitamin C) 1 g PO DAILY 90 days bisacodyl (Dulcolax (bisacodyl)) 20 mg (4 x 5 mg) PO ONCE 1 day calcium carbonate 260 mg PO DAILY [catheter insertion kit As directed- 2 kits per month] [catheter irrigation kit As directed- 2 kits per month] cholecalciferol (vitamin D3) 25 mcg PO DAILY colesevelam 1,250 mg (2 x 625 mg) PO BID docusate sodium 100 mg PO BID escitalopram oxalate 10 mg PO DAILY estradiol (Vagifem) 10 mcg vaginal 2XW 28 days fluconazole 150 mg PO Q3D 2 doses [abdi catheters As directed- 2 catheters per month] folic acid 1 mg PO DAILY hydrocodone-acetaminophen 7.5-325 mg 1 tab PO Q6H PRN ipratropium-albuterol 0.5 mg-3 mg(2.5 mg base)/3 mL 3 mL inhalation Q4-6H PRN Lactobacillus acidophilus 2,000 mmu cells (2 x 1 billion cell) PO DAILY lansoprazole 30 mg PO DAILY [leg bags 2 catheter leg bags per month] levofloxacin 500 mg PO DAILY 6 days methenamine hippurate 1 g PO DAILY 90 days metoprolol tartrate 50 mg PO BID 90 days [night bags As directed- 1 catheter night bag per month] ondansetron HCl 4 mg PO Q6H PRN prochlorperazine maleate 5 mg PO Q12H PRN 30 days rivaroxaban (Xarelto) 20 mg PO QPM simethicone (Anti-Gas Ultra Strength) 180 mg PO BID simvastatin 40 mg PO BEDTIME sodium,potassium,mag sulfates 17.5-3.13-1.6 gram (Suprep Bowel Prep Kit) DILUTE; drink 1/2 at 6-8 pm and half at 11 PM- 1AM [sterile water As directed for abdi catheter irrigation ] zinc sulfate 50 mg PO DAILY HPI Comments Details: Trupti comes for follow-up. Continues to have exertional shortness of breath which is unchanged. Denies any orthopnea, PND, leg edema. No wheezing or recent illnesses. Denies any prolonged palpitation irregular heartbeat. No lightheadedness, syncope. No bleeding issues or neurologic events. No exertional chest pain. She tries to exercise as much as possible but he was having issues with the left hip in his seeing outside energy specialist [facility] Medical History AAA (abdominal aortic aneurysm) Permanent atrial fibrillation Atrial fibrillation On beta mayra at home Legally blind Retention, urine Pneumonia Exercise hypoxemia GERD (gastroesophageal reflux disease) Hypertension Persistent atrial fibrillation COPD (chronic obstructive pulmonary disease) Dyspnea on exertion HTN (hypertension) Cardiac pacemaker in situ Sick sinus syndrome Surgical History History of endoscopy Hx of colonoscopy History of esophagogastroduodenoscopy (EGD) Hx of hysterectomy Hx of cardiac pacemaker History of radiofrequency ablation (RFA) for complex left atrial arrhythmia History of cardioversion Family History Father CHF (congestive heart failure) Cancer Pacemaker Mother Emphysema lung Social History Household Members: Spouse and Children Housing: House Are you a primary career consultant to a significant other at home: No Do you presently have visiting nurse or other home services: No Unable to assess alcohol history related to: Unknown Alcohol intake: former Patient Tobacco Use Status: Former Tobacco user Advance Directives Date on File: 07/26/22 service: No Review of Systems Const Denies weakness ENT Denies dizziness Card Denies chest pain, Denies chest pain with activity, Denies syncope, Denies rapid heart rate, Denies pedal edema, Denies edema, Denies leg edema, Denies lightheadedness, Denies palpitations, Reports dyspnea, Denies dyspnea on exertion and Denies orthopnea Resp Denies cough, Reports dyspnea and Denies dyspnea on exertion GI Denies hematochezia and Denies change in stool character Musc Denies abnormal gait, Denies muscle cramps, Denies muscle weakness, Denies numbness, Denies radiating pain into limb and Denies tingling Neuro Denies abnormal gait, Denies dizziness, Denies syncope, Denies numbness, Denies tingling and Denies weakness Endo Denies palpitations Physical Exam Vital Signs: Last Vital Signs Pulse 80 12/18/23 13:03 BP 110/58 L 12/18/23 13:03 BMI result Body Mass Index 28.9 Const General: cooperative, no acute distress, alert, awake and well groomed Orientation/consciousness: patient oriented x3 Neck Neck: Yes normal visual inspection and Yes no JVD Resp Other: Mouth breather Effort & Inspection: normal respiratory effort, able to speak in complete sentences and not labored Auscultation: clear to auscultation bilaterally, no crackles, no rales, no rhonchi and no wheezes Cardio Rate: tachycardic Rhythm: abnormal rhythm Heart sounds: S1 normal heart sound present and S2 normal heart sound present Peripheral pulses: Peripheral pulses 2+ throughout GI Inspection: Yes normal to inspection Neuro General: patient oriented x3 Extrem General: Yes normal to inspection and No edema Office Procedures Cardiac Device Check Cardiac Device Check Details: Dual-chamber Medtronic pacemaker in place programmed in VVI mode. Battery status is about 6 months. Ventricular pacing 3.4% of time. Ventricular pacing thresholds adequate. Pacing lead impedance is stable. [id number] Cardiac Device Check, pacemaker dual lead Procedure code (CPT) selection complete EKG Details: EKG shows atrial fibrillation with intermittent ventricular pacing with nonspecific ST T wave changes [id number], Complete Assessment & Plan Assessment & Plan (1) Persistent atrial fibrillation: Code(s): I48.19 - Other persistent atrial fibrillation Category: Medical Plan: Chronic persistent atrial fibrillation which has failed rhythm control approach. Currently doing well overall without any progressive signs of heart failure. Continue rate control approach with metoprolol. Continue full oral anticoagulation, currently on Xarelto 20 mg daily. Semi annual renal function test should be pursued. (2) Cardiac pacemaker in situ: Code(s): Z95.0 - Presence of cardiac pacemaker Category: Medical Plan: Cardiac pacemaker in-situ for sick sinus syndrome, currently programmed to VVIR due to chronic atrial fibrillation. Minimal pacer use. Battery life is at 6 months, will follow up in the clinic in 6 months time. (3) HTN (hypertension): Code(s): I10 - Essential (primary) hypertension Category: Medical Plan: Hypertension which is currently well optimized advised to monitor blood pressure at home maintain a log. Goal blood pressure less than 130/84. Low-salt diet was discussed. Continue current therapy. Will follow up in the clinic in 6 months time, sooner p.r.n.. Thank you for allowing me to partake in her care Coding Level of Care Code Est Pt Level 4 (79606) Complex EM visit Add On G2211 Diagnoses Persistent atrial fibrillation I48.19 Cardiac pacemaker in situ Z95.0 HTN (hypertension) I10 CPT Codes Cardiac Device Check - Cardiac Device 2: [id number] Cardiac Device Check, pacemaker dual lead ([id number]) EKG - CPT: 68303-[id number], Complete ([id number])
== END 2023-12-18 13:23 | disposition home or self-care (01) ==
PROVIDERS: PCP Internal Medicine; Visit Provider Internal Medicine Cardiovascular Disease
DX: I48.19 Other persistent atrial fibrillation (principal); Z95.0 Presence of cardiac pacemaker; I10 Essential (primary) hypertension
CPT/HCPCS: 93010; 93280; 99214; G2211

== ENCOUNTER → 2023-12-18 12:38 | Outpatient (BNVA) | payer MEDICARE, SELFPAY | PROVIDERS: PCP Internal Medicine; Visit Provider Internal Medicine Cardiovascular Disease | DX: I48.19 Other persistent atrial fibrillation (principal); I10 Essential (primary) hypertension; Z45.010 Encounter for checking and testing of cardiac pacemaker pulse generator [battery] | CPT/HCPCS: 93005; 93280; 99212 ==

== ENCOUNTER 2023-12-27 11:17 | Outpatient (AMB) | payer MEDICARE, SELFPAY ==
[2023-12-27 11:28] VITALS: BMI 28.9
--- NOTE | 2023-12-27 11:28 | MHC.OFFVIS ---
Vital Signs 12/27/23 11:28 Height 5 ft 3 in Weight 163 lb BMI 28.9 Intake Visit Reasons: left hip pain continuous Intake Note: Trupti a 73 year old female who presents today for a follow up of left hip pain, last injection 10/12/23. Patient reports that the injection did not provide her with any relief. States her pain is worse. She has attended a home therapy session with the [facility] and continues to do at home exercise. Allergies No Known Allergies [No Known Allergies*] Allergy (Verified 12/27/23 11:29) HPI HPI left hip pain continuous: Details: 73-year-old female presents to the office today for a follow-up left hip pain. At her last visit I gave her a left hip trochanteric bursa injection. She states she had minimal relief with this. Continues to have pain in the groin with walking climbing stairs and getting in and out of the car. Continues to have difficulty with daily activities. [facility] Medical History AAA (abdominal aortic aneurysm) Permanent atrial fibrillation Atrial fibrillation On beta mayra at home Legally blind Retention, urine Pneumonia Exercise hypoxemia GERD (gastroesophageal reflux disease) Hypertension Persistent atrial fibrillation COPD (chronic obstructive pulmonary disease) Dyspnea on exertion HTN (hypertension) Cardiac pacemaker in situ Sick sinus syndrome Surgical History History of endoscopy Hx of colonoscopy History of esophagogastroduodenoscopy (EGD) Hx of hysterectomy Hx of cardiac pacemaker History of radiofrequency ablation (RFA) for complex left atrial arrhythmia History of cardioversion Family History Father CHF (congestive heart failure) Cancer Pacemaker Mother Emphysema lung Social History Household Members: Spouse and Children Housing: House Are you a primary managed care specialist to a significant other at home: No Do you presently have visiting nurse or other home services: No Unable to assess alcohol history related to: Unknown Alcohol intake: former Patient Tobacco Use Status: Former Tobacco user Advance Directives Date on File: 07/26/22 service: No Review of Systems Const All systems reviewed & are unremarkable except as noted in HPI and below Physical Exam Vital Signs: BMI result Body Mass Index 28.9 Const General: cooperative, healthy appearing, comfortable, no acute distress, well developed and alert Orientation/consciousness: patient oriented x3 HEENT Head: Yes normal to inspection, Yes normocephalic and Yes atraumatic Eyes General: appearance normal, both eyes and all related structures Resp Effort & Inspection: normal respiratory effort and able to speak in complete sentences Cardio Rate: regular rate Peripheral pulses: Peripheral pulses 2+ throughout GI Palpation (GI): Soft to palpation Skin Lesions: no lesions Rashes: no rashes Neuro General: patient oriented x3 Extrem Other: Left hip: Normal to inspection. Mild discomfort with range of motion of the hip. Pain along the greater trochanter. No pain with hip flexion or abduction. Negative tenderness along the SI joint, Negative SLR. NVI. Assessment & Plan Assessment & Plan (1) Trochanteric bursitis, left hip: Code(s): M70.62 - Trochanteric bursitis, left hip Category: Medical (2) Osteoarthritis of left hip: Code(s): M16.12 - Unilateral primary osteoarthritis, left hip Category: Medical Plan We discussed options which include intra-articular left hip injection under fluoroscopy. She is in agreement to this plan. No order has been placed in the hospital will contact her to schedule and she can follow up with the 6 weeks after the injection if she continues to have pain. Coding Level of Care Code Est Pt Level 3 (92163) Complex EM visit Add On G2211 Diagnoses Trochanteric bursitis, left hip M70.62 Osteoarthritis of left hip M16.12
== END 2023-12-27 11:39 | disposition home or self-care (01) ==
PROVIDERS: PCP Internal Medicine; Visit Provider Physician Assistant
DX: M70.62 Trochanteric bursitis, left hip (principal); M16.12 Unilateral primary osteoarthritis, left hip
CPT/HCPCS: 99213; G2211

== ENCOUNTER → 2023-12-27 11:17 | Outpatient (BNVA) | payer MEDICARE, SELFPAY | PROVIDERS: PCP Internal Medicine; Visit Provider Physician Assistant | DX: M70.62 Trochanteric bursitis, left hip (principal); M16.12 Unilateral primary osteoarthritis, left hip | CPT/HCPCS: 99212 ==

== ENCOUNTER 2024-01-03 11:00 | Outpatient (REF) | payer MEDICARE, SELFPAY ==
[2024-01-03 13:16] LABS: MANUAL DIFF FLAG NO
[2024-01-03 13:32] LABS: Basophils Absolute Auto 0.1 X10*3/uL (0.0-0.2); Basophils Percent Auto 0.7 % (0-2); Eosinophils Absolute Auto 0.1 X10*3/uL (0.0-0.4); Eosinophils Percent Auto 1.5 % (0-4); Hematocrit 37.1 % (37.0-47.0); Hemoglobin 11.4 g/dl (12.0-16.0); Imm Gran Abs Auto 0.03 X10*3/uL (0.00-0.03); Imm Gran Pct Auto 0.4 % (0.0-0.4); Lymphocytes Absolute Auto 0.8 X10*3/uL (1.2-4.9); Lymphocytes Percent Auto 11.5 % (20-40); Mean Corpuscular HGB Conc 30.7 g/dl (31.0-35.0); Mean Corpuscular Hemoglobin 25.7 pg (27.0-33.0); Mean Corpuscular Volume 83.7 fL (80.0-98.0); Mean Platelet Volume 10.1 fL (9.4-12.3); Monocytes Absolute Auto 0.6 X10*3/uL (0.1-1.2); Monocytes Percent Auto 8.8 % (2-11); Neutrophils Absolute Auto 5.6 x10*3/uL (2.0-8.3); Neutrophils Percent Auto 77.1 % (45-73); Platelet Count 250 X10*3/uL (160-400); Red Blood Count 4.43 X10*6/uL (4.20-5.50); Red Cell Distribution Width 18.1 % (11.0-16.0); White Blood Count 7.3 X10*3/uL (4.8-10.8)
[2024-01-03 14:04] LABS: Vitamin B12 601 pg/mL (200-900)
== END 2024-01-03 11:01 | disposition home or self-care (01) ==
LOC: HO.HVNA 11:00
PROVIDERS: PCP Internal Medicine; Referring Provider Internal Medicine Cardiovascular Disease; Visit Provider Physician Assistant Medical
DX: I48.19 Other persistent atrial fibrillation (principal)
CPT/HCPCS: 36415; 80048; 82607; 82728; 82784; 83540; 85025

== ENCOUNTER 2024-01-16 12:27 | Outpatient (REF) | payer MEDICARE, SELFPAY ==
--- NOTE | ~2024-01-16 | FL_ITS ---
FLUOROSCOPIC LEFT HIP INTRA-ARTICULAR STEROID INJECTION INDICATIONS: Left hip pain. Orthopedic surgery requests intra-articular left hip steroid injection. PROCEDURE: Risks and benefits and possible complications were discussed with the patient and the consent form was signed. The patient was placed hip on the fluoroscopy table. The left hip was prepped and draped in normal sterile fashion. 1% buffered lidocaine was used for anesthesia. A 22-gauge spinal needle was used to access the hip joint. Intra-articular position of the needle within the hip joint was verified using 3 cc of Omnipaque 300. A total of 5 mL 1% lidocaine and 80 mg Depo-Medrol was then injected into the hip joint. The needle was then removed and a Band-Aid was applied to the injection site. The patient tolerated the procedure well. There were no immediate complications. FL/FL arthrogram hip LT IMPRESSION: Successful fluoroscopic guided left hip intra-articular steroid injection. The procedure was performed by Andres Regalado PA-C, and directly supervised by Dr. Mc. Electronically signed by: Trey Mc MD 01/16/2024 04:30 PM [facility] [place]
[2024-04-15] MEDS: iohexoL 300 MG/ML 50 ML INFUS..BTL INTRAARTIC (11:05)
[2024-04-15] MEDS: Lidocaine HCl 1 % MPF 30 ML VIAL 5 ML INTRAARTIC (11:06)
[2024-04-15] MEDS: methylPREDNISolone acetate 80 MG VIAL INTRAARTIC (11:07)
== END 2024-01-16 12:28 | disposition home or self-care (01) ==
LOC: HO.XRAY 12:27
PROVIDERS: PCP Internal Medicine; Visit Provider Physician Assistant
DX: M16.12 Unilateral primary osteoarthritis, left hip (principal)
CPT/HCPCS: 20605; 20610; 27093; 73525; 77002; J1010; J2003; Q9967

== ENCOUNTER → 2024-01-16 12:29 | Outpatient (BNV) | payer MEDICARE, SELFPAY | PROVIDERS: PCP Internal Medicine; Visit Provider Physician Assistant Surgical | DX: M16.12 Unilateral primary osteoarthritis, left hip (principal) | CPT/HCPCS: 27095; 73525 ==

== ENCOUNTER 2024-01-19 08:34 | Outpatient (AMB) | payer MEDICARE, SELFPAY ==
--- NOTE | 2024-01-19 08:35 | MHC.OFFVIS ---
Intake Visit Reasons: 6 month follow up Intake Note: Trupti presents as a telehealth for a 6 month follow up. CC: She states that the past 3 days she has not had diarrhea which is good but she has still been having the diarrhea prior to that. Spoke with Kelley her VNA nurse and confirmed her fax number to fax the stool tests over! Allergies No Known Allergies [No Known Allergies*] Allergy (Verified 12/27/23 11:29) HPI HPI 6 month follow up: Details: 73 yr old f called for f/u RECAP--saw [facility] initially 10/2018 ISSUES: 1. Non-intractable vomiting with nausea, was given reglan 2. Poor nutrition, possibly attributed to amiodarone, given creon and on boost,carnation 3. diarrhea, was given carafate, omeprazole switched to ranitidine 4. chronic anemia, on xarelto, multiple polyps on colonoscopy, reactive gastropathy TESTS: EGD/Colonoscopy-- 08/2018-- dudeonal tubular adenoma, multiple colon polyps EGD/colonoscopy-02/13/19-several sessile polyps from colon removed, no further upper gi polyps, barretts esophagus colonoscopy 05/2022-- multiple polyps removed incl one with area of LGD colonoscopy: 11/29 - multple polyps incl TV and TA INTERIM: she has no symptoms appetite is good no abdominal pain she feels well she is waiting for Jemma reviewed path from colonoscopy with her A/P: 1/ Hx of colonic polyps--high risk for CRC PLAN: 1/ rept colonoscopy in 6 months --[facility] Medical History AAA (abdominal aortic aneurysm) Permanent atrial fibrillation Atrial fibrillation On beta mayra at home Legally blind Retention, urine Pneumonia Exercise hypoxemia GERD (gastroesophageal reflux disease) Hypertension Persistent atrial fibrillation COPD (chronic obstructive pulmonary disease) Dyspnea on exertion HTN (hypertension) Cardiac pacemaker in situ Sick sinus syndrome Surgical History History of endoscopy Hx of colonoscopy History of esophagogastroduodenoscopy (EGD) Hx of hysterectomy Hx of cardiac pacemaker History of radiofrequency ablation (RFA) for complex left atrial arrhythmia History of cardioversion Family History Father CHF (congestive heart failure) Cancer Pacemaker Mother Emphysema lung Social History Household Members: Spouse and Children Housing: House Are you a primary acute care occupational therapist to a significant other at home: No Do you presently have visiting nurse or other home services: No Unable to assess alcohol history related to: Unknown Alcohol intake: former Patient Tobacco Use Status: Former Tobacco user Advance Directives Date on File: 07/26/22 service: No Telehealth Telehealth Telehealth Platform: [facility] Location of provider rendering services: practice address Location of patient: address on file Patient Identification confirmed using: Name, : Yes Telehealth method: voice only Patient verbally consented to treatment: Yes Patient verbally consented to billing insurance company: Yes Patient informed of any privacy concerns related to visit: Yes Minutes spent on Phone/Video with Pt.: 8 Assessment & Plan Assessment & Plan (1) Colon polyposis: Code(s): K63.5 - Polyp of colon Category: Medical Plan: as above Coding Level of Care Code Tele Est Pt Level 3 (94611) Diagnoses Colon polyposis K63.5
== END 2024-01-19 09:30 | disposition home or self-care (01) ==
LOC: HO.HGI 08:34
PROVIDERS: PCP Internal Medicine; Visit Provider Internal Medicine Gastroenterology
DX: R19.7 Diarrhea, unspecified (principal); K63.5 Polyp of colon
CPT/HCPCS: 99441

== ENCOUNTER → 2024-01-19 08:34 | Outpatient (BNVA) | payer MEDICARE, SELFPAY | PROVIDERS: PCP Internal Medicine; Visit Provider Internal Medicine Gastroenterology ==

== ENCOUNTER 2024-01-22 14:44 | Outpatient (AMB) | payer MEDICARE, SELFPAY ==
--- NOTE | 2024-01-22 14:44 | A.OFFVIS_ITS ---
Intake Visit Reasons: 6m follow up Intake Note: Patient is Present for Telephone Follow Up Urology Med: estrace cream, methenamine, vitamin c Antibiotic Allergy: none Blood Thinner: none Patient has abdi catheter Previous visit pt denied SP Tube placement and can not CIC due to Legally Blind Title Assistant Required: No Allergies No Known Allergies [No Known Allergies*] Allergy (Verified 01/22/24 15:04) Medication List - Last Reconciled 01/22/24 by CARTER Penaloza albuterol sulfate 90 mcg/actuation 2 puffs inhalation Q6H PRN ascorbic acid (vitamin C) 1 g PO DAILY 90 days calcium carbonate 260 mg PO DAILY [catheter insertion kit As directed- 2 kits per month] [catheter irrigation kit As directed- 2 kits per month] cholecalciferol (vitamin D3) 25 mcg PO DAILY colesevelam 1,250 mg (2 x 625 mg) PO BID cyanocobalamin (vitamin B-12) 1,000 mcg PO DAILY escitalopram oxalate 10 mg PO DAILY estradiol 0.01%(0.1mg/gram) vaginal ferrous sulfate 325 mg PO Q OTHER DAY PRN fluconazole 150 mg PO Q3D 2 doses fluticasone propionate 50 mcg/actuation 2 sprays intranasal DAILY [abdi catheters As directed- 2 catheters per month] folic acid 1 mg PO DAILY hydrocodone-acetaminophen 5-325 mg 1 tab PO BID PRN ipratropium-albuterol 0.5 mg-3 mg(2.5 mg base)/3 mL 3 mL inhalation Q4-6H PRN Lactobacillus acidophilus 0.5 mg PO DAILY lansoprazole 30 mg PO DAILY [leg bags 2 catheter leg bags per month] levofloxacin 500 mg PO DAILY 6 days methenamine hippurate 1 g PO DAILY 90 days metoprolol tartrate 50 mg PO BID 90 days [night bags As directed- 1 catheter night bag per month] ondansetron HCl 4 mg PO Q6H PRN prochlorperazine maleate 5 mg PO Q12H PRN 30 days rivaroxaban (Xarelto) 20 mg PO QPM simethicone (Anti-Gas Ultra Strength) 180 mg PO BID simvastatin 40 mg PO BEDTIME sodium,potassium,mag sulfates 17.5-3.13-1.6 gram (Suprep Bowel Prep Kit) DILUTE; drink 1/2 at 6-8 pm and half at 11 PM- 1AM [sterile water As directed for abdi catheter irrigation ] zinc sulfate 50 mg PO DAILY HPI Comments Details: Trupti is a plesant 73-year-old female patient of Dr. Orona. She ochoa s a past medical history of COPD, GERD, hypertension, persistent AFib, legally blind, neurogenic bladder, and urinary retention. She is being followed up on today via telehealth for a follow up of her urinary retention in longstanding history of indwelling Abdi catheter. She has had many multiple failed voiding trials in the past. Patient reports to be doing and feeling well. She denies any bothersome urinary issues or concerns at this time. She denies having had any urinary issues since her last office visit here. She denies any UTI like symptoms. Patient discusses VNA services has been changing her indwelling Abdi catheter each month given patients diagnosis of being legally blind. She continues utilizing flip flow valve throughout the day and emptying her bladder every 2-3 hours and utilizing night bag at . I discussed again with the patient risks and benefits of suprapubic tube in the setting of chronic Abdi catheter use in women. She is unable to CIC given she is legally blind. She declines suprapubic tube placement at this time. She reports compliance with methenamine, vitamin-C, and Vagifem as prescribed. She continues antibiotic dose at time of catheter change. She otherwise offers no issues or concerns at this time. PREVIOUS OFFICE NOTE: Urinary retention Long-term Abdi catheter Failed voiding trials multiple times Legally blind and has VNA change catheter On UTI minimization with Vagifem tablet, antibiotic dose at time of catheter change Has had 2 UTI since last visit Trial ascorbic acid 2 acidify urine Six-month follow-up [facility] Medical History AAA (abdominal aortic aneurysm) Permanent atrial fibrillation Atrial fibrillation On beta mayra at home Legally blind Retention, urine Pneumonia Exercise hypoxemia GERD (gastroesophageal reflux disease) Hypertension Persistent atrial fibrillation COPD (chronic obstructive pulmonary disease) Dyspnea on exertion HTN (hypertension) Cardiac pacemaker in situ Sick sinus syndrome Surgical History History of endoscopy Hx of colonoscopy History of esophagogastroduodenoscopy (EGD) Hx of hysterectomy Hx of cardiac pacemaker History of radiofrequency ablation (RFA) for complex left atrial arrhythmia History of cardioversion Family History Father CHF (congestive heart failure) Cancer Pacemaker Mother Emphysema lung Social History Household Members: Spouse and Children Housing: House Are you a primary resident care aid to a significant other at home: No Do you presently have visiting nurse or other home services: No Unable to assess alcohol history related to: Unknown Alcohol intake: former Patient Tobacco Use Status: Former Tobacco user Advance Directives Date on File: 07/26/22 service: No Review of Systems Const Reports as per HPI Eyes Details: Patient reports she is legally blind. Reports as per HPI ENT Reports no additional complaints Card Reports as per HPI Resp Reports as per HPI GI Reports as per HPI, Denies abdominal pain, Reports diarrhea and Denies nausea Reports as per HPI Musc Reports no additional complaints Neuro Reports no additional complaints Physical Exam Const General: cooperative Orientation/consciousness: oriented to person Resp Effort & Inspection: able to speak in complete sentences Neuro General: oriented to person Psych Speech and movement: Clear speech present Attitude: cooperative Thought process: Normal thought process present Thought content: Normal thought content present Insight: Fair insight present (Psych) Judgement: Fair judgement present (Psych) Telehealth Telehealth Telehealth Platform: [facility] Location of provider rendering services: practice address Location of patient: address on file Patient Identification confirmed using: Name, : Yes Telehealth method: video Patient verbally consented to treatment: Yes Patient verbally consented to billing insurance company: Yes Patient informed of any privacy concerns related to visit: Yes Minutes spent on Phone/Video with Pt.: 15 Assessment & Plan Assessment & Plan (1) Neurogenic bladder: Code(s): N31.9 - Neuromuscular dysfunction of bladder, unspecified Category: Medical (2) Retention, urine: Code(s): R33.9 - Retention of urine, unspecified Category: Medical Plan Patient denies any bothersome urinary issues or concerns at this time She denies any UTI like symptoms today and or since her last office visit here approximately 6 months ago Discussed at length suprapubic tube placement versus indwelling Abdi catheter; discussed risks and benefits Patient unable to CIC given she is legally blind and this will be difficult for her Patient otherwise offers no urinary issues or concerns at this time. Continue urological medications as prescribed. Follow up in office 6 months; if not sooner with any issues, concerns, and or questions. Patient Instructions: The patient had an opportunity to ask questions regarding the treatment plan. All questions were answered. Physical exam, labs, and imaging were discussed and reviewed in detail. As well as risks, benefits, and discussion of treatment choices. No major barriers to understanding were identified. The patient expressed understanding and agreement with the above treatment plan. The patient was made aware they should contact our office by phone for worsening of their current condition, the appearance of new symptoms, or with any questions or concerns. Compliance is encouraged with any medications and follow up testing that is ordered. It is a privilege to be allowed the opportunity to participate in? your urological care.? Again, if you have any questions or concerns If you have any questions or concerns please do not hesitate to contact me. The office is [phone]. This note is constructed using voice recognition software. While every effort has been made to ensure accuracy electrical sign wirer helper errors may have been included. Yours sincerely, CARTER Penaloza Coding Level of Care Code Tele Est Pt Level 3 (79509) Diagnoses Neurogenic bladder N31.9 Retention, urine R33.9 Time Spent (min) 15
== END 2024-01-22 16:26 | disposition home or self-care (01) ==
LOC: HO.HUSH 14:44
PROVIDERS: PCP Internal Medicine; Visit Provider Nurse Practitioner Family
DX: N31.9 Neuromuscular dysfunction of bladder, unspecified (principal); R33.9 Retention of urine, unspecified
CPT/HCPCS: 99213

== ENCOUNTER 2024-01-23 14:00 | Outpatient (REF) | payer MEDICARE, SELFPAY ==
[2024-01-23 17:55] LABS: CDiff Gene PCR NEGATIVE (Negative)
[2024-01-27 19:03] LABS: Lactoferrin, Fecal, Quant. <6.25 mcg/mL (<7.25)
[2024-01-30 20:39] LABS: Pancreatic Elastase-1 >800 mcg/g (>200)
== END 2024-01-23 14:01 | disposition home or self-care (01) ==
LOC: HO.HVNA 14:00
PROVIDERS: PCP Internal Medicine; Visit Provider Internal Medicine Gastroenterology
DX: K51.50 Left sided colitis without complications (principal); R19.7 Diarrhea, unspecified; K92.89 Other specified diseases of the digestive system
CPT/HCPCS: 82656; 83631; 87493

== ENCOUNTER 2024-02-09 14:39 | Outpatient (REF) | payer MEDICARE, SELFPAY ==
[2024-02-09 15:34] LABS: Chloride 105 mmol/L (96-108)
[2024-02-09 15:35] LABS: Anion Gap 11 (12-20); Blood Urea Nitrogen 21 mg/dL (9-16); Calcium 7.8 mg/dL (8.4-10.2); Carbon Dioxide 24 mmol/L (22-29); Estimated Glomerular Filt Rate > 60; Glucose Random 86 mg/dL (60-115); Sodium 134 mmol/L (135-145)
[2024-02-09 20:28] LABS: Potassium 6.1 mmol/L (3.3-5.1)
== END 2024-02-09 14:40 | disposition home or self-care (01) ==
LOC: HO.LNP 14:39
PROVIDERS: Visit Provider Internal Medicine Cardiovascular Disease
DX: I48.19 Other persistent atrial fibrillation (principal)
CPT/HCPCS: 80048

== ENCOUNTER 2024-02-13 | Outpatient (REF) | payer MEDICARE, SELFPAY ==
[2024-02-13 14:53] LABS: Anion Gap 12 (12-20); Blood Urea Nitrogen 21 mg/dL (9-16); Carbon Dioxide 21 mmol/L (22-29); Chloride 109 mmol/L (96-108); Estimated Glomerular Filt Rate > 60; Glucose Random 126 mg/dL (60-115); Potassium 5.4 mmol/L (3.3-5.1); Sodium 137 mmol/L (135-145)
== END 2024-02-13 00:01 | disposition home or self-care (01) ==
LOC: HO.LAB
PROVIDERS: Visit Provider Internal Medicine Cardiovascular Disease
DX: E78.5 Hyperlipidemia, unspecified (principal)
CPT/HCPCS: 80048

== ENCOUNTER 2024-02-19 11:23 | Outpatient (AMB) | payer MEDICARE, SELFPAY ==
[2024-02-19 11:41] VITALS: BMI 28.9
--- NOTE | 2024-02-19 11:41 | A.OFFVIS_ITS ---
Vital Signs 02/19/24 11:41 Height 5 ft 3 in Weight 163 lb BMI 28.9 Intake Visit Reasons: OV- Left hip pain last inj 12/27/23 Intake Note: Trupti a 73 year old female who presents today for a follow up of left hip pain, last injection 01/16/24. Patient reports injection only helped for 1 day. She continues to have alot of pain especially when walking and from sit to stand movement. States she doesn't want to try another injection. Allergies No Known Allergies [No Known Allergies*] Allergy (Verified 02/19/24 11:45) Medication List - Last Reconciled 02/19/24 by Justin Berumen PA-C albuterol sulfate 90 mcg/actuation 2 puffs inhalation Q6H PRN ascorbic acid (vitamin C) 1 g PO DAILY 90 days calcium carbonate 260 mg PO DAILY [catheter insertion kit As directed- 2 kits per month] [catheter irrigation kit As directed- 2 kits per month] cholecalciferol (vitamin D3) 25 mcg PO DAILY colesevelam 1,250 mg (2 x 625 mg) PO BID cyanocobalamin (vitamin B-12) 1,000 mcg PO DAILY escitalopram oxalate 10 mg PO DAILY estradiol 0.01%(0.1mg/gram) vaginal ferrous sulfate 325 mg PO Q OTHER DAY PRN fluconazole 150 mg PO Q3D 2 doses fluticasone propionate 50 mcg/actuation 2 sprays intranasal DAILY [abdi catheters As directed- 2 catheters per month] folic acid 1 mg PO DAILY hydrocodone-acetaminophen 5-325 mg 1 tab PO BID PRN ipratropium-albuterol 0.5 mg-3 mg(2.5 mg base)/3 mL 3 mL inhalation Q4-6H PRN Lactobacillus acidophilus 0.5 mg PO DAILY lansoprazole 30 mg PO DAILY [leg bags 2 catheter leg bags per month] levofloxacin 500 mg PO DAILY 6 days methenamine hippurate 1 g PO DAILY 90 days metoprolol tartrate 50 mg PO BID 90 days [night bags As directed- 1 catheter night bag per month] ondansetron HCl 4 mg PO Q6H PRN prochlorperazine maleate 5 mg PO Q12H PRN rivaroxaban (Xarelto) 20 mg PO QPM simethicone (Anti-Gas Ultra Strength) 180 mg PO BID simvastatin 40 mg PO BEDTIME sodium,potassium,mag sulfates 17.5-3.13-1.6 gram (Suprep Bowel Prep Kit) DILUTE; drink 1/2 at 6-8 pm and half at 11 PM- 1AM [sterile water As directed for abdi catheter irrigation ] zinc sulfate 50 mg PO DAILY HPI HPI OV- Left hip pain last inj 12/27/23: Details: 73-year-old female presents to the office today for follow-up left hip pain status post intra-articular injection in December. She states the injection helped for 1 day. She continues to have pain with daily activities. [facility] Medical History AAA (abdominal aortic aneurysm) Permanent atrial fibrillation Atrial fibrillation On beta mayra at home Legally blind Retention, urine Pneumonia Exercise hypoxemia GERD (gastroesophageal reflux disease) Hypertension Persistent atrial fibrillation COPD (chronic obstructive pulmonary disease) Dyspnea on exertion HTN (hypertension) Cardiac pacemaker in situ Sick sinus syndrome Surgical History History of endoscopy Hx of colonoscopy History of esophagogastroduodenoscopy (EGD) Hx of hysterectomy Hx of cardiac pacemaker History of radiofrequency ablation (RFA) for complex left atrial arrhythmia History of cardioversion Family History Father CHF (congestive heart failure) Cancer Pacemaker Mother Emphysema lung Social History Household Members: Spouse and Children Housing: House Are you a primary acute care clinical nurse specialist to a significant other at home: No Do you presently have visiting nurse or other home services: No Unable to assess alcohol history related to: Unknown Alcohol intake: former Patient Tobacco Use Status: Former Tobacco user Advance Directives Date on File: 07/26/22 service: No Review of Systems Const All systems reviewed & are unremarkable except as noted in HPI and below Physical Exam Vital Signs: BMI result Body Mass Index 28.9 Const General: cooperative, healthy appearing, comfortable, no acute distress, well developed and alert Orientation/consciousness: patient oriented x3 HEENT Head: Yes normal to inspection, Yes normocephalic and Yes atraumatic Eyes General: appearance normal, both eyes and all related structures Resp Effort & Inspection: normal respiratory effort and able to speak in complete sentences Cardio Rate: regular rate Peripheral pulses: Peripheral pulses 2+ throughout GI Palpation (GI): Soft to palpation Skin Lesions: no lesions Rashes: no rashes Neuro General: patient oriented x3 Extrem Other: Left hip: Normal to inspection. Mild discomfort with range of motion of the hip. Pain along the greater trochanter. No pain with hip flexion or abduction. Negative tenderness along the SI joint, Negative SLR. NVI. Assessment & Plan Assessment & Plan (1) Osteoarthritis of left hip: Code(s): M16.12 - Unilateral primary osteoarthritis, left hip Category: Medical Plan: I discussed with the patient at length the extent of a total hip arthroplasty. I discussed with her the recovery timeframe. I also explained to her the risks associated with cardiopulmonary comorbidities and total hip arthroplasty. I explained to her in order to proceed we would need to obtain a clearance to ensure she is optimized for surgery. I also put in a referral for physical therapy for prehab exercises. I will have Lesli reach out to the patient to proceed accordingly. Coding Level of Care Code Est Pt Level 3 (30779) Complex EM visit Add On G2211 Diagnoses Osteoarthritis of left hip M16.12
== END 2024-02-19 11:57 | disposition home or self-care (01) ==
PROVIDERS: PCP Internal Medicine; Visit Provider Physician Assistant
DX: M16.12 Unilateral primary osteoarthritis, left hip (principal)
CPT/HCPCS: 99213; G2211

== ENCOUNTER → 2024-02-19 11:23 | Outpatient (BNVA) | payer MEDICARE, SELFPAY | PROVIDERS: PCP Internal Medicine; Visit Provider Physician Assistant | DX: M16.12 Unilateral primary osteoarthritis, left hip (principal) | CPT/HCPCS: 99212 ==

== ENCOUNTER 2024-02-28 15:37 | Inpatient (IN) | payer MEDICARE, SELFPAY ==
--- NOTE | ~2024-02-28 | XR_ITS ---
EXAMINATION: XR HIP, LEFT CLINICAL INFORMATION: left hip pain, fall COMPARISON: Pelvis radiographs 09/20/2023. Correlation made with CT abdomen and pelvis 02/28/2024. TECHNIQUE: AP pelvis, and 2 views of the left hip. FINDINGS: Since the prior exam, there has been development of subchondral sclerosis throughout the left femoral head, with subchondral collapse/fragmentation. There is flattening of the articular surface with cortical step-off seen. No additional acute fracture identified. The pelvis appears intact. The right hip joint appears intact with mild degenerative arthritis. The sacrum and SI joints appear intact. There is mild to moderate SI joint arthritis. There are degenerative changes in the lower lumbar spine. There are surgical clips along the pelvic sidewalls, as well as projecting over the right aspect of L5. Soft tissues demonstrate a dilated loop of small bowel in the left lower quadrant, and opacified dilated loop of small bowel in the mid and right lower quadrant. Findings are in keeping with the small bowel obstruction is seen on the CT of the prior day. XR/XR hip LT w PEL 1V IMPRESSION: 1. 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 This was present on the CT abdomen and pelvis of 02/28/2024. 2. Otherwise, no acute fractures identified. Pelvis and right hip intact. Electronically signed by: Trey Mc MD 02/29/2024 01:18 PM JOIE
--- NOTE | ~2024-02-28 | CT_ITS ---
CLINICAL HISTORY: head injury on thinner CT head without contrast Comparison: CT/SR - BRAIN WO IV CONTRAST [id number] - 11/27/17 07:51 EDT Findings: No evidence of acute territorial infarct. There is patchy low density in the periventricular and subcortical white matter. Diffuse volume loss is noted. No hydrocephalus. No hemorrhage, mass effect, mass lesion or midline shift. No abnormal extra-axial fluid. No calvarial fracture. Paranasal sinuses and mastoid air cells are clear. Impression: No evidence of acute process. Ischemic microangiopathy and diffuse volume loss. This document has been electronically signed by: Akhil Edge MD on 02/28/2024 21:56:41
--- NOTE | ~2024-02-28 | XR_ITS ---
CLINICAL HISTORY: r o obstruction 1 view abdomen Comparison: CT/SR - CT ABDOMEN PELVIS WO IV CON - 02/28/24 21:04 EST CR/SR - XR KUB - 09/29/22 11:06 EDT Findings: No pneumoperitoneum or pneumatosis. No abnormal calcifications. There are postoperative changes in the pelvis. There is severe chronic deformity of the left femoral head with evidence of avascular necrosis. IMPRESSION: No acute abnormalities noted. No evidence of bowel obstruction. This document has been electronically signed by: Gian Velasquez MD on 03/10/2024 13:05:27
--- NOTE | ~2024-02-28 | CT_ITS ---
CLINICAL HISTORY: neck pain CT cervical spine without contrast Comparison: None Findings: There is straightening of the normal cervical lordosis. No fracture or acute malalignment. Multilevel degenerative changes with disc space narrowing throughout the cervical spine. The facet joints are normally imbricated. No prevertebral soft tissue edema. Lung apicies demonstrate no acute process. Impression: Multilevel degenerative changes without evidence of acute fracture or acute malalignment. This document has been electronically signed by: Akhil Edge MD on 02/28/2024 21:57:50
--- NOTE | ~2024-02-28 | CT_ITS ---
CLINICAL HISTORY: abd pain, CT abdomen and pelvis without contrast Comparison: CT/REG/RI/SR - CT ABDOMEN PELVIS WO IV CON - 10/02/22 17:09 EDT Findings: No consolidation or effusion. There is a high-grade small bowel obstruction with questioned transition within the deep pelvis. The distal and terminal ileum are decompressed. The colon is decompressed. No definite pneumatosis or free air. There is an infrarenal abdominal aortic aneurysm, measuring up to 5.1 cm. This is increased from 4.2 cm on the comparison study. No abscess or significant adenopathy. The unenhanced liver, gallbladder, spleen, adrenal glands and kidneys demonstrate no acute process. The bladder is decompressed by Cadet catheter. No acute osseous abnormality. Impression: There is a high-grade small bowel obstruction with the transition suggested within the deep mid pelvis. No current pneumatosis, free air or abscess. Several additional incidental findings including an enlarging infrarenal abdominal aortic aneurysm. This document has been electronically signed by: Akhil Edge MD on 02/28/2024 22:05:09
--- NOTE | ~2024-02-28 | XR_ITS ---
CLINICAL HISTORY: cough 1 view chest x-ray Comparison: CR/SR - XR CHEST 2V - 06/26/23 13:13 EDT Findings: The lungs are clear. Normal heart size. Cardiac pacemaker present. No acute fracture. IMPRESSION: 1. No acute findings. This document has been electronically signed by: Erin Watkins MD on 02/28/2024 17:06:57
[2024-02-28 16:06] VITALS: BP 86/48; BP 95/54; PULSE 100; PULSE 99; RESP 20; TEMP 36.4; O2SAT 100; O2SAT 84; BMI 29.4
--- NOTE | 2024-02-28 16:15 | ECG_ITS ---
Test Reason : SOB Blood Pressure : */* mmHG Vent. Rate : 93 BPM Atrial Rate : * BPM P-R Int : * ms QRS Dur : 90 ms QT Int : 354 ms P-R-T Axes : * -5 197 degrees QTcB Int : 440 ms Atrial fibrillation Possible Anterior infarct , age undetermined ST & T wave abnormality, consider inferolateral ischemia Abnormal ECG When compared with ECG of 05-Oct-2022 12:31, ventricular-paced complexes are no longer Present Vent. rate has increased by 31 bpm Referred By: Dayana Michaud Electronically Signed By: SUBHA QUEZADA MD
--- NOTE | 2024-02-28 16:26 | ED.FEMALEGU ---
HPI - Female Genitourinary General Chief complaint: Urogenital-Female Stated complaint: UTI, worsening weakness, a-fib, paced, hypotensive Time Seen by Provider: 02/28/24 16:02 History of Present Illness HPI Narrative: Patient is a 73-year-old female with a history of COPD history of neurogenic bladder chronically has a Abdi in place. Presented today was found to be weak. Was noted to have a history of UTI. Patient was prescribed an antibiotic for 1 week. Question if was Bactrim as it was taken twice a day. Patient denies any fever chills. Feels very weak. Positive coughing upper respiratory symptoms. Positive diarrhea. No nausea no vomiting.Patient's baseline is not on oxygen. Feel very weak and tired. Was noted to have a low oxygen here in the ED. has a history of atrial fibrillation. Baseline is on Xarelto . Related Data Home Medications ?Medication ?Instructions ?Recorded ?Confirmed folic acid 1 mg tablet 1 mg PO DAILY 04/07/20 02/19/24 simvastatin 40 mg tablet 40 mg PO BEDTIME 02/10/21 02/19/24 albuterol sulfate 90 mcg/actuation 2 puff inhalation Q6H PRN wheezing 05/12/22 02/19/24 aerosol inhaler ipratropium 0.5 mg-albuterol 3 mg 3 ml inhalation Q4-6H PRN wheezing 05/12/22 02/19/24 (2.5 mg base)/3 mL nebulization soln escitalopram oxalate 10 mg tablet 10 mg PO DAILY 02/10/23 02/19/24 calcium carbonate 260 mg PO DAILY 06/08/23 02/19/24 cholecalciferol (vitamin D3) 25 25 mcg PO DAILY 06/08/23 02/19/24 mcg (1,000 unit) capsule Lactobacillus acidophilus 0.5 mg 0.5 mg PO DAILY 01/19/24 02/19/24 (100 million cell) tablet cyanocobalamin (vitamin B-12) 1,000 mcg PO DAILY 01/19/24 02/19/24 1,000 mcg tablet estradiol 0.01% (0.1 mg/gram) vaginal 01/19/24 02/19/24 vaginal cream ferrous sulfate 325 mg (65 mg 325 mg PO Q OTHER DAY PRN 01/19/24 02/19/24 iron) tablet fluticasone propionate 50 2 spray intranasal DAILY 01/19/24 02/19/24 mcg/actuation nasal spray,suspension hydrocodone 5 mg-acetaminophen 325 1 tab PO BID PRN pain 01/19/24 02/19/24 mg tablet Previous Rx's ?Medication ?Instructions ?Recorded catheter insertion kit #2 ea 01/25/22 catheter irrigation kit #2 ea 01/25/22 abdi catheters #2 ea 01/25/22 leg bags #2 ea 01/25/22 night bags #1 ea 01/25/22 sterile water #1 ea 01/25/22 lansoprazole 30 mg capsule,delayed 30 mg PO DAILY #90 caps 04/12/23 release colesevelam 625 mg tablet 1,250 mg (2 x 625 mg) PO BID #360 07/04/23 tabs fluconazole 150 mg tablet 150 mg PO Q3D 2 doses #2 tabs 09/25/23 ondansetron HCl 4 mg tablet 4 mg PO Q6H PRN for 10/24/23 nausea/vomiting #60 tabs rivaroxaban 20 mg tablet (Xarelto) 20 mg PO QPM #90 tabs 11/06/23 simethicone 180 mg capsule 180 mg PO BID #60 caps 11/27/23 (Anti-Gas Ultra Strength) zinc sulfate 50 mg zinc (220 mg) 50 mg PO DAILY #30 caps 11/27/23 capsule levofloxacin 500 mg tablet 500 mg PO DAILY 6 days #6 tabs 11/28/23 methenamine hippurate 1 gram tablet 1 g PO DAILY UTI suppression 90 01/15/24 days #90 tabs sodium,potassium,mag sulfates 17.5 See Rx Instructions PO .COMPLEX 01/19/24 gram-3.13 gram-1.6 gram oral soln #354 mL (Suprep Bowel Prep Kit) ascorbic acid (vitamin C) 1,000 mg 1 g PO DAILY 90 days #90 tabs 02/12/24 tablet metoprolol tartrate 50 mg tablet 50 mg PO BID 90 days #180 tabs 02/13/24 prochlorperazine maleate 5 mg 5 mg PO Q12H PRN for 02/13/24 tablet nausea/vomiting #30 tabs sulfamethoxazole 800 1 tab PO BID 10 days #20 tabs 02/23/24 mg-trimethoprim 160 mg tablet (Bactrim DS) Allergies Allergy/AdvReac Type Severity Reaction Status Date / Time No Known Allergies Allergy Verified 02/28/24 16:14 [No Known Allergies*] Review of Systems Review of Systems: Positive coughing positive upper respiratory symptoms positive generalized malaise Yes all other systems are reviewed and are negative [facility] Past Medical History Medical History AAA (abdominal aortic aneurysm) Permanent atrial fibrillation Atrial fibrillation On beta mayra at home Legally blind Retention, urine Pneumonia Exercise hypoxemia GERD (gastroesophageal reflux disease) Hypertension Persistent atrial fibrillation COPD (chronic obstructive pulmonary disease) Dyspnea on exertion HTN (hypertension) Cardiac pacemaker in situ Sick sinus syndrome Surgical History History of endoscopy Hx of colonoscopy History of esophagogastroduodenoscopy (EGD) Hx of hysterectomy Hx of cardiac pacemaker History of radiofrequency ablation (RFA) for complex left atrial arrhythmia History of cardioversion Family History Family History Father CHF (congestive heart failure) Cancer Pacemaker Mother Emphysema lung Social History Social History Household Members: Spouse and Children Housing: House Are you a primary veterinarian laboratory animal care to a significant other at home: No Do you presently have visiting nurse or other home services: No Unable to assess alcohol history related to: Unknown Alcohol intake: former Patient Tobacco Use Status: Former Tobacco user Smoked in Last 30 Days: No Use of substances other than those prescribed or required for medical reasons: No Advance Directives: Yes Advance Directives on File: Yes Advance Directives Date on File: 07/26/22 service: No Physical Exam Vital Signs: Vital Signs: Last Vital Signs Temp 97.7 F 02/28/24 22:07 Pulse 99 02/28/24 22:07 Resp 21 H 02/28/24 22:07 BP 114/55 L 02/28/24 22:07 Pulse Ox 96 02/28/24 22:07 O2 Del Method Room Air 02/28/24 22:07 Oxygen Flow Rate 4 02/28/24 16:06 BMI result Body Mass Index 29.4 Appearance: Alert. Oriented X3. No acute distress. Eyes: Pupils equal, round and reactive to light. ENT: Pharynx normal. Neck: Normal inspection. Neck supple. No lymph nodes noted. No crepitus CVS: Normal heart rate and rhythm. Pulses normal. Normal S1 and S2 Respiratory: No respiratory distress. Breath sounds normal. No Wheezing. No rales Abdomen: Soft and nontender. No rigidity. No distention. good BS x4 Skin: Skin warm and dry. Normal skin color. Normal skin turgor. Extremities: No lower extremity edema. Neurovascular intact to all extremities. No Lacerations. No Rash Neuro: Oriented X 3. No motor deficit. No sensory deficit. Moving all extermities. No slurred speech Medications Administered Discontinued Medications Generic Name Dose Route Start Last Admin Trade Name Freq PRN Reason Stop Dose Admin Ceftriaxone Sodium 1 gm 02/28/24 19:24 02/28/24 19:50 Ceftriaxone Sodium 1 Gm Vial IVPUSH 02/28/24 19:25 1 gm ONCE ONE Administration Sodium Chloride 1,000 mls @ 999 mls/hr 02/28/24 16:30 02/28/24 18:09 Ns IV 02/28/24 17:30 Infused .Q1H1M LUCY Infusion Sodium Chloride 500 mls @ 999 mls/hr 02/28/24 19:30 02/28/24 21:38 Ns IV 02/28/24 20:00 Infused .Q31M LUCY Infusion Sodium Chloride 1,000 mls @ 999 mls/hr 02/28/24 19:30 02/28/24 21:00 Ns IV 02/28/24 20:30 Infused .Q1H1M LUCY Infusion Metronidazole 500 mg in 100 mls @ 100 mls/hr 02/28/24 19:24 02/28/24 21:00 Flagyl IV 02/28/24 20:23 Infused ONCE ONE Infusion Medical Decision Making Medical Decision Making [facility] Narrative: Patient given boluses of fluids because the initial blood pressure was low. Lactate was elevated. Patient's lactate elevation more likely secondary to dehydration. Urine showed no signs of infection. My interpretation of patient's chest x-ray is grossly negative there is no pneumonia no pneumothorax. Question if there is a fall. CT scan of the head CT scan of the C-spine was done. My interpretation CT head was negative for bleeding. No mass. No fracture. Patient given IV fluids in the emergency department. The initial labs showed an elevated creatinine of over 2. Lactate of 2.2. After boluses of fluids. Repeat exam was done. Patient's lactate is down below 2. There is no evidence for severe sepsis. Patient is creatinine is about 2. Will need further monitoring. No history of renal insufficiency in the past. patient's COVID flu RSV were all negative. CT scan of the abdomen pelvis was read by Radiology as small bowel obstruction. This finding was consulted by the surgical team. I rechecked patient. Has no nausea no vomiting. Diarrhea last episode was yesterday. Only surgery in the past was a hysterectomy in 1993. Patient's CT also mentioned a slightly enlarged aorta baseline was 4.2 cm now is 5.1 cm in size. There is no overt leak. Patient has no abdominal pain at this time. I reviewed this finding with vascular surgery. They want to consult on the case In a.m.. [place] nothing emergent currently. These findings were discussed with the hospitalist team Differential Diagnosis Differential Diagnoses: The differential diagnosis associated with the presentation includes Anemia, urinary tract infection, pneumonia , infection, dehydration, renal insufficiency Admission/Observation Consideration of admission/observation: Escalation of care including admission/observation considered Consult Healthcare Provider Management of the patient was discussed with: Hospitalist and [facility] ( Surgery, radiology, vascular surgery) Lab Data MDM Lab Attestation statement: I reviewed the patient's lab results. 02/28/24 18:52 02/28/24 20:43 Labs: Lab Results 02/28/24 02/28/24 02/28/24 Range/Units 17:17 17:18 18:52 WBC 11.3 H (4.8-10.8) X10*3/uL RBC 4.84 (4.20-5.50) X10*6/uL Hgb 12.8 (12.0-16.0) g/dl Hct 39.7 (37.0-47.0) % MCV 82.0 (80.0-98.0) fL MCH 26.4 L (27.0-33.0) pg MCHC 32.2 (31.0-35.0) g/dl RDW 17.8 H (11.0-16.0) % Plt Count 304 (160-400) X10*3/uL MPV 9.7 (9.4-12.3) fL Immature Gran % (Auto) 0.7 H (0.0-0.4) % Neut % (Auto) 78.8 H (45-73) % Lymph % (Auto) 8.7 L (20-40) % [place] % (Auto) 10.7 (2-11) % Eos % (Auto) 0.2 (0-4) % Baso % (Auto) 0.9 (0-2) % Lymph # (Auto) 1.0 L (1.2-4.9) X10*3/uL [place] # (Auto) 1.2 (0.1-1.2) X10*3/uL Eos # (Auto) 0.0 (0.0-0.4) X10*3/uL Baso # (Auto) 0.1 (0.0-0.2) X10*3/uL Abs Immat Gran (auto) 0.08 H (0.00-0.03) X10*3/uL Absolute Neuts (auto) 8.9 H (2.0-8.3) x10*3/uL Absolute Nucleated RBC 0.000 (0.0-0.012) X10*3/uL Nucleated RBC % (auto) 0.0 (0.0-0.2) /100WBC Sodium 130 L (135-145) mmol/L Potassium 4.6 (3.3-5.1) mmol/L Chloride 101 (96-108) mmol/L Carbon Dioxide 15 L (22-29) mmol/L Anion Gap 19 (12-20) BUN 55 H (9-16) mg/dL Creatinine 2.11 H (0.5-1.4) mg/dL Estim Creat Clear Calc 23.5 Estimated GFR 23 Random Glucose 106 (60-115) mg/dL Lactic Acid 2.2 H* (0.5-2.0) mmol/L Calcium 7.9 L (8.4-10.2) mg/dL Total Bilirubin 0.2 (0.0-1.0) mg/dL AST 31 (5-31) U/L ALT 6 (0-31) U/L Alkaline Phosphatase 110 (39-117) U/L Total Protein 5.9 L (6.5-8.0) g/dL Albumin 2.8 L (3.5-5.0) g/dL Urine Color Yellow Urine Appearance Cloudy Urine pH 5.5 (5.0-9.0) Ur Specific [place] 1.025 (1.005-1.025) Urine Protein Trace (Neg-Trace) mg/dL Urine Glucose (UA) Negative (Negative) mg/dL Urine Ketones Negative (Negative) mg/dL Urine Blood Trace (Negative) Urine Nitrite Negative (Negative) Ur Leukocyte Esterase Trace H (Negative) Urine RBC 0-2 (0-2) /HPF Urine WBC 0-5 (0-5) /HPF Ur Squamous Epith Cells 3-5 (0-2) /HPF Urine Bacteria 3+ (None Seen) Hyaline Casts 0-2 (0-2) /LPF Influenza Type A (PCR) NEGATIVE (Negative) Influenza Type B (PCR) NEGATIVE (Negative) RSV RNA Qual (PCR) NEGATIVE (Negative) SARS-CoV-2 RNA (RT-PCR) NEGATIVE (Negative) 02/28/24 Range/Units 20:43 WBC (4.8-10.8) X10*3/uL RBC (4.20-5.50) X10*6/uL Hgb (12.0-16.0) g/dl Hct (37.0-47.0) % MCV (80.0-98.0) fL MCH (27.0-33.0) pg MCHC (31.0-35.0) g/dl RDW (11.0-16.0) % Plt Count (160-400) X10*3/uL MPV (9.4-12.3) fL Immature Gran % (Auto) (0.0-0.4) % Neut % (Auto) (45-73) % Lymph % (Auto) (20-40) % [place] % (Auto) (2-11) % Eos % (Auto) (0-4) % Baso % (Auto) (0-2) % Lymph # (Auto) (1.2-4.9) X10*3/uL [place] # (Auto) (0.1-1.2) X10*3/uL Eos # (Auto) (0.0-0.4) X10*3/uL Baso # (Auto) (0.0-0.2) X10*3/uL Abs Immat Gran (auto) (0.00-0.03) X10*3/uL Absolute Neuts (auto) (2.0-8.3) x10*3/uL Absolute Nucleated RBC (0.0-0.012) X10*3/uL Nucleated RBC % (auto) (0.0-0.2) /100WBC Sodium 129 L (135-145) mmol/L Potassium 4.4 (3.3-5.1) mmol/L Chloride 105 (96-108) mmol/L Carbon Dioxide 15 L (22-29) mmol/L Anion Gap 13 (12-20) BUN 54 H (9-16) mg/dL Creatinine 2.00 H (0.5-1.4) mg/dL Estim Creat Clear Calc 24.9 Estimated GFR 24 Random Glucose 101 (60-115) mg/dL Lactic Acid 1.6 (0.5-2.0) mmol/L Calcium 7.5 L (8.4-10.2) mg/dL Total Bilirubin (0.0-1.0) mg/dL AST (5-31) U/L ALT (0-31) U/L Alkaline Phosphatase (39-117) U/L Total Protein (6.5-8.0) g/dL Albumin (3.5-5.0) g/dL Urine Color Urine Appearance Urine pH (5.0-9.0) Ur Specific [place] (1.005-1.025) Urine Protein (Neg-Trace) mg/dL Urine Glucose (UA) (Negative) mg/dL Urine Ketones (Negative) mg/dL Urine Blood (Negative) Urine Nitrite (Negative) Ur Leukocyte Esterase (Negative) Urine RBC (0-2) /HPF Urine WBC (0-5) /HPF Ur Squamous Epith Cells (0-2) /HPF Urine Bacteria (None Seen) Hyaline Casts (0-2) /LPF Influenza Type A (PCR) (Negative) Influenza Type B (PCR) (Negative) RSV RNA Qual (PCR) (Negative) SARS-CoV-2 RNA (RT-PCR) (Negative) Independent Interpretation I performed an independent interpretation of an: EKG, Plain X-Ray and CT Scan Radiology Impression Discussion of test interpretation with radiology: I have reviewed the radiologist's reading. Independent Historian Clinical information obtained from an independent historian. History obtained from or confirmed by: Other ( family) External Record Review External record reviewed: Inpatient record Chronic Conditions history of neurogenic bladder chronic Abdi Social Determinants Patient?s care significantly limited by Social Determinants of Health including: Problems related to primary support group Critical Care Time Critical Care Time Critical Care Time: Yes Total Critical Care Time: 40 Attestation: I have personally provided 40 minutes of critical care time exclusive of time spent on separately billable procedures. Time includes review of lab data, radiology results, discussion with consultants, and monitoring for potential decompensation. Interventions were performed as documented above Discharge Plan Discharge Clinical Impression: Acute renal insufficiency, Acute dehydration, Fall, Complete small bowel obstruction Patient Disposition: Admitted As Inpatient
[2024-02-28] MEDS: 0.9 % Sodium Chloride 1,000 ML 999 ML IV ×2 (16:53→19:51)
[2024-02-28 16:59] VITALS: PULSE 100; RESP 22; O2SAT 98
[2024-02-28 17:31] LABS: Appearance Urine Cloudy; Color Urine Yellow; Glucose Urine UA Negative (Negative); Leukocyte Esterase Urine Trace (Negative); Nitrite Urine Negative (Negative); PH 5.5 (5.0-9.0); Specific Gravity - Urine 1.025 (1.005-1.025); UMIC TRIGGER UACC YES; Urine Blood Trace (Negative); Urine Ketones Negative (Negative); Urine Protein Trace mg/dL (Neg-Trace)
[2024-02-28 17:45] LABS: Bacteria Urine 3+ (None Seen); Hyaline Casts Urine 0-2 /LPF (0-2); RBC Urine 0-2 /HPF (0-2); WBC Urine 0-5 /HPF (0-5)
[2024-02-28 18:04] LABS: Influenza A PCR NEGATIVE (Negative); Influenza B PCR NEGATIVE (Negative); Resp Syncy Virus RNA Qual PCR NEGATIVE (Negative); SARS COV2 PCR INHOUSE NEGATIVE (Negative)
--- NOTE | 2024-02-28 18:09 | PC.NURSE ---
Pt very hard stick, multiple techs attempting for blood work
[2024-02-28 18:39] VITALS: BP 110/62; PULSE 105; RESP 20; O2SAT 95
[2024-02-28 18:56] LABS: MANUAL DIFF FLAG NO
[2024-02-28 19:10] LABS: Basophils Absolute Auto 0.1 X10*3/uL (0.0-0.2); Basophils Percent Auto 0.9 % (0-2); Eosinophils Percent Auto 0.2 % (0-4); Hematocrit 39.7 % (37.0-47.0); Hemoglobin 12.8 g/dl (12.0-16.0); Imm Gran Abs Auto 0.08 X10*3/uL (0.00-0.03); Imm Gran Pct Auto 0.7 % (0.0-0.4); Lymphocytes Percent Auto 8.7 % (20-40); Mean Corpuscular HGB Conc 32.2 g/dl (31.0-35.0); Mean Corpuscular Hemoglobin 26.4 pg (27.0-33.0); Mean Platelet Volume 9.7 fL (9.4-12.3); Monocytes Absolute Auto 1.2 X10*3/uL (0.1-1.2); Monocytes Percent Auto 10.7 % (2-11); Neutrophils Absolute Auto 8.9 x10*3/uL (2.0-8.3); Neutrophils Percent Auto 78.8 % (45-73); Platelet Count 304 X10*3/uL (160-400); Red Blood Count 4.84 X10*6/uL (4.20-5.50); Red Cell Distribution Width 17.8 % (11.0-16.0); White Blood Count 11.3 X10*3/uL (4.8-10.8)
[2024-02-28 19:19] LABS: Alanine Aminotransferase 6 U/L (0-31); Albumin Level 2.8 g/dL (3.5-5.0); Anion Gap 19 (12-20); Aspartate Amino Transferase 31 U/L (5-31); Bilirubin Total 0.2 mg/dL (0.0-1.0); Blood Urea Nitrogen 55 mg/dL (9-16); Calcium 7.9 mg/dL (8.4-10.2); Carbon Dioxide 15 mmol/L (22-29); Chloride 101 mmol/L (96-108); Creatinine Clr Calc Pharmacy 23.5; Estimated Glomerular Filt Rate 23; Glucose Random 106 mg/dL (60-115); Potassium 4.6 mmol/L (3.3-5.1); Sodium 130 mmol/L (135-145); Total Protein 5.9 g/dL (6.5-8.0)
[2024-02-28 19:21] LABS: Lactic Acid 2.2 mmol/L (0.5-2.0)
[2024-02-28 19:47] LABS: Alkaline Phosphatase 110 U/L (39-117)
[2024-02-28] MEDS: cefTRIAXone sodium 1 GM VIAL IVPUSH (19:50)
[2024-02-28] MEDS: metroNIDAZOLE/NS 500 MG/100 ML PIGGYBACK 100 MG IV (19:51)
[2024-02-28 20:19] VITALS: BP 135/90; PULSE 90; RESP 22; TEMP 36.4; O2SAT 96
[2024-02-28] MEDS: 0.9 % Sodium Chloride 500 ML 999 ML IV (20:46)
[2024-02-28 20:56] LABS: Reflex Lactate? Lactic Acid Added
[2024-02-28 21:05] LABS: Anion Gap 13 (12-20); Blood Urea Nitrogen 54 mg/dL (9-16); Calcium 7.5 mg/dL (8.4-10.2); Carbon Dioxide 15 mmol/L (22-29); Chloride 105 mmol/L (96-108); Creatinine Clr Calc Pharmacy 24.9; Estimated Glomerular Filt Rate 24; Glucose Random 101 mg/dL (60-115); Potassium 4.4 mmol/L (3.3-5.1); Sodium 129 mmol/L (135-145)
[2024-02-28 21:06] LABS: Lactic Acid 1.6 mmol/L (0.5-2.0)
[2024-02-28 22:07] VITALS: BP 114/55; PULSE 99; RESP 21; TEMP 36.5; O2SAT 96
--- NOTE | 2024-02-28 23:21 | P.HPHOSP_ITS ---
History of Present Illness Date of Service: 02/28/24 Attending physician on admission: Gurmeet Polanco Chief Complaint: weakness, SOB Pt is a 71-year-old female with a PMH significant for?persistent AFib on Xarelto, CKD 3, AAA followed by [facility], COPD not on home O2, GERD, hx uterine cancer, HLD, HTN, chronic indwelling Cadet catheter d/t neurogenic bladder, and sick sinus syndrome with pacemaker in-situ who presents to the ED with weakness and shortness of breath. She was found to be hypoxic at 84% on room air by EMS as well as hypotensive 94/54. She reports recent nausea, vomiting and diarrhea for the past 4 days (Sat-Tues) but was able to tolerate liquids and did not have any nausea or vomiting or diarrhea today. She also has mild suprapubic tenderness. She was recently treated for a UTI with Bactrim. She denies a headache, photosensitivity, sore throat, congestion, cough, chest pain, dysuria, hematuria or lower extremity edema. Review of Systems 2 Constitutional: Constitutional: Denies body ache(s), Denies chills, Reports fatigue, Denies fever(s) and Denies headache(s) Eyes: Eyes: Denies change in vision and Denies photophobia ENT: Denies headache(s), Denies nasal congestion and Denies nasal discharge Cardiovascular: Cardiovascular: Denies chest pain, Denies rapid heart rate, Denies lightheadedness and Reports dyspnea Respiratory: Respiratory: Denies chest congestion, Denies cough, Reports dyspnea and Denies wheezing Gastrointestinal: Gastrointestinal: Denies melena, Denies hematochezia, Denies coffee ground emesis, Denies constipation, Reports diarrhea, Reports nausea, Reports vomiting and Denies hematemesis Genitourinary: Genitourinary: Denies hematuria and Denies dysuria Musculoskeletal: Musculoskeletal: Reports muscle weakness Integumentary/Breasts: Skin/Breast: Denies rash Neurologic: Denies confusion and Denies headache(s) Psychiatric: Psychiatric: Denies confusion Endocrine: Endocrine: Reports fatigue Hematologic/Lymphatic: Hematologic/Lymphatic: Denies easy bleeding and Denies easy bruising Allergic/Immunologic: Allergic/Immunologic: Denies wheezing [facility] Medical History AAA (abdominal aortic aneurysm) Permanent atrial fibrillation Atrial fibrillation On beta mayra at home Legally blind Retention, urine Pneumonia Exercise hypoxemia GERD (gastroesophageal reflux disease) Hypertension Persistent atrial fibrillation COPD (chronic obstructive pulmonary disease) Dyspnea on exertion HTN (hypertension) Cardiac pacemaker in situ Sick sinus syndrome Family History Father CHF (congestive heart failure) Cancer Pacemaker Mother Emphysema lung Surgical History History of endoscopy Hx of colonoscopy History of esophagogastroduodenoscopy (EGD) Hx of hysterectomy Hx of cardiac pacemaker History of radiofrequency ablation (RFA) for complex left atrial arrhythmia History of cardioversion Social History Household Members: Spouse and Children Housing: House Are you a primary care mgr to a significant other at home: No Do you presently have visiting nurse or other home services: No Unable to assess alcohol history related to: Unknown Alcohol intake: former Patient Tobacco Use Status: Former Tobacco user Smoked in Last 30 Days: No Use of substances other than those prescribed or required for medical reasons: No Advance Directives: Yes Advance Directives on File: Yes Advance Directives Date on File: 07/26/22 service: No Narrative: No smoking, alcohol or drug use Meds Allergies Allergy/AdvReac Type Severity Reaction Status Date / Time No Known Allergies Allergy Verified 02/28/24 16:14 [No Known Allergies*] Home Medications ?Medication ?Instructions ?Recorded ?Confirmed ?Last Taken ?Type folic acid 1 mg tablet 1 mg PO DAILY 04/07/20 02/19/24 10/01/22 History simvastatin 40 mg tablet 40 mg PO BEDTIME 02/10/21 02/19/24 10/01/22 History albuterol sulfate 90 mcg/actuation 2 puff inhalation Q6H PRN wheezing 05/12/22 02/19/24 10/01/22 History aerosol inhaler ipratropium 0.5 mg-albuterol 3 mg 3 ml inhalation Q4-6H PRN wheezing 05/12/22 02/19/24 10/01/22 History (2.5 mg base)/3 mL nebulization soln escitalopram oxalate 10 mg tablet 10 mg PO DAILY 02/10/23 02/19/24 Unknown History calcium carbonate 260 mg PO DAILY 06/08/23 02/19/24 Unknown History cholecalciferol (vitamin D3) 25 25 mcg PO DAILY 06/08/23 02/19/24 Unknown History mcg (1,000 unit) capsule Lactobacillus acidophilus 0.5 mg 0.5 mg PO DAILY 01/19/24 02/19/24 Unknown History (100 million cell) tablet cyanocobalamin (vitamin B-12) 1,000 mcg PO DAILY 01/19/24 02/19/24 Unknown History 1,000 mcg tablet estradiol 0.01% (0.1 mg/gram) vaginal 01/19/24 02/19/24 Unknown History vaginal cream ferrous sulfate 325 mg (65 mg 325 mg PO Q OTHER DAY PRN 01/19/24 02/19/24 Unknown History iron) tablet fluticasone propionate 50 2 spray intranasal DAILY 01/19/24 02/19/24 Unknown History mcg/actuation nasal spray,suspension hydrocodone 5 mg-acetaminophen 325 1 tab PO BID PRN pain 01/19/24 02/19/24 Unknown History mg tablet Physical Exam 2 Vital Signs and Narrative: Vital Signs: Last Vital Signs Temp 97.7 F 02/28/24 22:07 Pulse 99 02/28/24 22:07 Resp 21 H 02/28/24 22:07 BP 114/55 L 02/28/24 22:07 Pulse Ox 96 02/28/24 22:07 O2 Del Method Room Air 02/28/24 22:07 Oxygen Flow Rate 4 02/28/24 16:06 BMI result Body Mass Index 29.4 General: AOx3, no acute distress Resp: CTA bilaterally CVS: S1, S2, RRR GI: hypoactive BS, tender suprapubic region, no distention Skin: Warm, dry Neuro: Cranial nerves II-XII grossly intact bilaterally. Motor grossly intact bilaterally Extremities: No LE edema Psych: Appropriate affect Const: General: No confusion Orientation/consciousness: No confusion Eyes: Direct Ophthalmoscopy: No photophobia Neuro: General: No confusion Results Labs 02/28/24 18:52 02/28/24 20:43 Labs: Laboratory Results - last 24 hr 02/28/24 02/28/24 02/28/24 17:17 17:18 18:52 MCV 82.0 MCH 26.4 L MCHC 32.2 RDW 17.8 H Plt Count 304 MPV 9.7 Immature Gran % (Auto) 0.7 H Neut % (Auto) 78.8 H Lymph % (Auto) 8.7 L Bacon % (Auto) 10.7 Eos % (Auto) 0.2 Baso % (Auto) 0.9 Lymph # (Auto) 1.0 L Bacon # (Auto) 1.2 Eos # (Auto) 0.0 Baso # (Auto) 0.1 Abs Immat Gran (auto) 0.08 H Absolute Neuts (auto) 8.9 H Absolute Nucleated RBC 0.000 Nucleated RBC % (auto) 0.0 Anion Gap 19 Estim Creat Clear Calc 23.5 Estimated GFR 23 Random Glucose 106 Lactic Acid 2.2 H* Calcium 7.9 L Total Bilirubin 0.2 AST 31 ALT 6 Alkaline Phosphatase 110 Total Protein 5.9 L Albumin 2.8 L Urine Color Yellow Urine Appearance Cloudy Urine pH 5.5 Ur Specific [place] 1.025 Urine Protein Trace Urine Glucose (UA) Negative Urine Ketones Negative Urine Blood Trace Urine Nitrite Negative Ur Leukocyte Esterase Trace H Urine RBC 0-2 Urine WBC 0-5 Ur Squamous Epith Cells 3-5 Urine Bacteria 3+ Hyaline Casts 0-2 Influenza Type A (PCR) NEGATIVE Influenza Type B (PCR) NEGATIVE RSV RNA Qual (PCR) NEGATIVE SARS-CoV-2 RNA (RT-PCR) NEGATIVE 02/28/24 20:43 MCV MCH MCHC RDW Plt Count MPV Immature Gran % (Auto) Neut % (Auto) Lymph % (Auto) Bacon % (Auto) Eos % (Auto) Baso % (Auto) Lymph # (Auto) Bacon # (Auto) Eos # (Auto) Baso # (Auto) Abs Immat Gran (auto) Absolute Neuts (auto) Absolute Nucleated RBC Nucleated RBC % (auto) Anion Gap 13 Estim Creat Clear Calc 24.9 Estimated GFR 24 Random Glucose 101 Lactic Acid 1.6 Calcium 7.5 L Total Bilirubin AST ALT Alkaline Phosphatase Total Protein Albumin Urine Color Urine Appearance Urine pH Ur Specific [place] Urine Protein Urine Glucose (UA) Urine Ketones Urine Blood Urine Nitrite Ur Leukocyte Esterase Urine RBC Urine WBC Ur Squamous Epith Cells Urine Bacteria Hyaline Casts Influenza Type A (PCR) Influenza Type B (PCR) RSV RNA Qual (PCR) SARS-CoV-2 RNA (RT-PCR) Assessment and Plan (1) Sepsis: Qualifiers: Sepsis acute organ dysfunction status: unspecified Sepsis type: sepsis due to unspecified organism Qualified Code(s): A41.9 - Sepsis, unspecified organism Status: Acute (2) Diarrhea: Status: Acute (3) Nausea & vomiting: Status: Acute (4) Acute dehydration: Status: Acute (5) Acute kidney injury superimposed on CKD: Status: Acute (6) Hyponatremia: Status: Acute (7) Lactic acidemia: Status: Acute Plan Pt is a 71-year-old female with a PMH significant for?persistent AFib on Xarelto, CKD 3, AAA followed by [facility], COPD not on home O2, GERD, hx uterine cancer, HLD, HTN, chronic indwelling Cadet catheter d/t neurogenic bladder, and sick sinus syndrome with pacemaker in-situ who presents to the ED with weakness and shortness of breath. She reported recent nausea, vomiting and diarrhea which has improved. No bowel movement since yesterday. History of C diff and recent Bactrim prescription for UTI. Initially hypotensive and hypoxic on arrival which improved with IV fluids. No respiratory symptoms therefore hypoxia likely secondary to hypotension. Labs also consistent with MARCI secondary to dehydration and Bactrim use. Abdominopelvic CT with high-grade small-bowel obstruction, case discussed with Dr. Gonzalez who recommended admission and consultation tomorrow, unlikely to need surgery as she is not having nausea or vomiting. Sepsis secondary to suspected GI source ?c diff - WBC 11.3, tachycardic and tachypneic, lactic acid elevated, likely secondary to MARCI and dehydration, blood cultures x2 pending, not severe sepsis - CT head and cervical spine due to weakness negative - EKG with persistent AFib, rate controlled - abdominopelvic CT with high-grade small-bowel obstruction with a transition suggested within the deep mid pelvis, no pneumatosis, free air or abscess. Several incidental findings including an enlarging infrarenal abdominal aortic aneurysm, measuring up to 5.1 cm. - chest x-ray negative - started on Flagyl and ceftriaxone in ED, we will treat empirically for C diff with p.o. vancomycin - surgical consult - NPO - IVF: NS 80ml/hr - follow CBC and BMP MARCI on CKD - dehydration and Bactrim likely contributing factors - received 2.5 L NS in ED, IV fluids as above - monitor BMP Hyponatremia, secondary to dehydration - 2.5 L NS in ED - continue NS at 80 ml/hr - monitor BMP Lactic acidosis - likely secondary to MARCI, hypoperfusion and dehydration - not severe sepsis - IVF as above - monitor CBC and BMP AFib - hold Xarelto due to MARCI - restart rate control medications when appropriate AAA - followed by [facility] - increased infrarenal abdominal aortic aneurysm - vascular surgery contacted while patient in ED who recommended consultation tomorrow - vascular consult COPD unspecified - no acute exacerbation - continue home meds HLD - continue home meds HTN - resume home meds when appropriate Neurogenic bladder - chronic Cadet catheter in place - UA negative med rec not complete upon admission Full code VTE prophylaxis: Pneumoboots Patient with sepsis secondary to likely GI source, possible C diff complicated by MARCI, requiring admission for at least 2 midnights stay for IVF, antibiotics and further workup. Quality Stroke Does the patient have a stroke diagnosis?: No VTE Prior VTE?: No VTE Risk Level:: Medical - moderate - high VTE Device Contraindication: N/A - Device Ordered VTE Drug Contraindication: Treatment Not Indicated
[2024-02-29] VITALS (8 sets, daily range): BP systolic 105–130; BP diastolic 71–88; PULSE 102–126; RESP 14–22; TEMP 36–36.7; O2SAT 96–98; BMI 28.6
[2024-02-29] MEDS: vancomycin HCL 125 MG CAPSULE PO ×4 (02:37→17:52)
[2024-02-29] MEDS: 0.9 % Sodium Chloride 1,000 ML 80 ML IVCONT ×2 (02:38→14:18)
[2024-02-29 05:37] LABS: MANUAL DIFF FLAG NO
[2024-02-29 05:40] LABS: Basophils Percent Auto 0.2 % (0-2); Hematocrit 37.7 % (37.0-47.0); Imm Gran Abs Auto 0.03 X10*3/uL (0.00-0.03); Imm Gran Pct Auto 0.4 % (0.0-0.4); Lymphocytes Absolute Auto 0.8 X10*3/uL (1.2-4.9); Lymphocytes Percent Auto 9.2 % (20-40); Mean Corpuscular HGB Conc 31.8 g/dl (31.0-35.0); Mean Corpuscular Hemoglobin 26.5 pg (27.0-33.0); Mean Corpuscular Volume 83.4 fL (80.0-98.0); Mean Platelet Volume 9.9 fL (9.4-12.3); Monocytes Percent Auto 11.8 % (2-11); Neutrophils Absolute Auto 6.7 x10*3/uL (2.0-8.3); Neutrophils Percent Auto 78.4 % (45-73); Platelet Count 290 X10*3/uL (160-400); Red Blood Count 4.52 X10*6/uL (4.20-5.50); Red Cell Distribution Width 17.9 % (11.0-16.0); White Blood Count 8.5 X10*3/uL (4.8-10.8)
[2024-02-29 05:52] LABS: Anion Gap 14 (12-20); Blood Urea Nitrogen 50 mg/dL (9-16); Calcium 7.6 mg/dL (8.4-10.2); Carbon Dioxide 15 mmol/L (22-29); Chloride 107 mmol/L (96-108); Creatinine Clr Calc Pharmacy 27.8; Estimated Glomerular Filt Rate 28; Glucose Random 95 mg/dL (60-115); Potassium 4.4 mmol/L (3.3-5.1); Sodium 132 mmol/L (135-145)
[2024-02-29] MEDS: 0.9 % Sodium Chloride Flush 3 ML SYRINGE IVFLUSH ×3 (07:27→21:33)
--- NOTE | 2024-02-29 08:14 | P.CONGS_ITS ---
History of Present Illness Consult details Consult date: 02/29/24 Narrative: [age] year old female who says that she was brought to the ER yesterday because of weakness. She says she had fallen multiple times at home. She says that she has was having a lot of diarrhea. She says she did not have any vomiting yesterday but thinks he may have had some nausea the day before. She does not recall having flatus overnight. She does have multiple medical problems including aortic aneurysm, atrial fibrillation, COPD, and is legally blind. She also has acute renal insufficiency. Currently she denies any abdominal pain. She denies any nausea or vomiting overnight. She does not recall any flatus. She did have a CT scan done admission suggesting high-grade small-bowel obstruction in the lower abdomen She says she had a history of appendectomy in the past. Review of Systems 2 Constitutional: Constitutional: Reports chills, Denies fever(s) and Reports malaise Cardiovascular: Cardiovascular: Denies chest pain Respiratory: Respiratory: Denies cough Gastrointestinal: Gastrointestinal: Denies hematochezia and Reports diarrhea Genitourinary: Genitourinary: Denies difficulty voiding Musculoskeletal: Musculoskeletal: Reports muscle weakness [facility] Past Medical History Medical History (Updated 03/01/24 @ 07:51 by Elijah Gonzalez MD) Small bowel obstruction AAA (abdominal aortic aneurysm) Permanent atrial fibrillation Atrial fibrillation On beta mayra at home Legally blind Retention, urine Pneumonia Exercise hypoxemia GERD (gastroesophageal reflux disease) Hypertension Persistent atrial fibrillation COPD (chronic obstructive pulmonary disease) Dyspnea on exertion HTN (hypertension) Cardiac pacemaker in situ Sick sinus syndrome Family History Family History Father CHF (congestive heart failure) Cancer Pacemaker Mother Emphysema lung Surgical History Surgical History History of endoscopy Hx of colonoscopy History of esophagogastroduodenoscopy (EGD) Hx of hysterectomy Hx of cardiac pacemaker History of radiofrequency ablation (RFA) for complex left atrial arrhythmia History of cardioversion Social History Social History Household Members: Spouse and Children Housing: House Are you a primary medicare insurance specialist to a significant other at home: No Do you presently have visiting nurse or other home services: Yes Unable to assess alcohol history related to: Unknown Alcohol intake: former Patient Tobacco Use Status: Former Tobacco user Advance Directives Date on File: 07/26/22 service: No Meds Allergies Allergy/AdvReac Type Severity Reaction Status Date / Time No Known Allergies Allergy Verified 02/28/24 16:14 [No Known Allergies*] Active Medications: Current Medications Acetaminophen (Acetaminophen 325 Mg Tablet) 975 mg PO Q6H PRN PRN Reason: Pain, Mild 1-3,fever,headache Calcium Carbonate (Calcium Carbonate 750 Mg Tab.Chew) 750 mg PO Q4H PRN PRN Reason: Heartburn Sodium Chloride (Ns) 1,000 mls @ 80 mls/hr IVCONT .[id number] [facility] Last Admin: 02/29/24 02:38 Dose: 80 mls/hr Magnesium Hydroxide (Milk Of Magnesia 30 Ml Oral.Susp) 30 ml PO DAILY PRN PRN Reason: Constipation Melatonin (Melatonin 3 Mg Tablet) 6 mg PO BEDTIME PRN PRN Reason: Insomnia Ondansetron HCl (Ondansetron Hcl 4 Mg/2 Ml Vial) 4 mg IVPUSH Q8H PRN PRN Reason: Nausea and Vomiting Sodium Chloride (0.9 % Sodium Chloride Flush 3 Ml Syringe) 3 ml IVFLUSH QSHIFT [facility] Last Admin: 02/29/24 07:27 Dose: 3 ml Vancomycin HCl (Vancomycin Hcl 125 Mg Capsule) 125 mg PO Q6H [facility] Last Admin: 02/29/24 07:26 Dose: 125 mg Home Medications ?Medication ?Instructions ?Recorded ?Confirmed ?Last Taken ?Type folic acid 1 mg tablet 1 mg PO DAILY 04/07/20 02/29/24 10/01/22 History simvastatin 40 mg tablet 40 mg PO BEDTIME 02/10/21 02/29/24 10/01/22 History albuterol sulfate 90 mcg/actuation 2 puff inhalation Q6H PRN wheezing 05/12/22 02/29/24 10/01/22 History aerosol inhaler ipratropium 0.5 mg-albuterol 3 mg 3 ml inhalation Q4H PRN wheezing 05/12/22 02/29/24 10/01/22 History (2.5 mg base)/3 mL nebulization soln escitalopram oxalate 10 mg tablet 10 mg PO DAILY 02/10/23 02/29/24 Unknown History calcium carbonate 260 mg PO DAILY PRN Dyspepsia 06/08/23 02/29/24 Unknown History cholecalciferol (vitamin D3) 25 25 mcg PO DAILY 06/08/23 02/29/24 Unknown History mcg (1,000 unit) capsule Lactobacillus acidophilus 0.5 mg 0.5 mg PO DAILY 01/19/24 02/29/24 Unknown History (100 million cell) tablet cyanocobalamin (vitamin B-12) 1,000 mcg PO DAILY 01/19/24 02/29/24 Unknown History 1,000 mcg tablet estradiol 0.01% (0.1 mg/gram) 2 g vaginal 2XW 01/19/24 02/29/24 Unknown History vaginal cream ferrous sulfate 325 mg (65 mg 325 mg PO Q48H 01/19/24 02/29/24 Unknown History iron) tablet fluticasone propionate 50 2 spray intranasal DAILY 01/19/24 02/29/24 Unknown History mcg/actuation nasal spray,suspension hydrocodone 5 mg-acetaminophen 325 1 tab PO BID PRN pain 01/19/24 02/29/24 Unknown History mg tablet dicyclomine 10 mg capsule 10 mg PO BID 02/29/24 02/29/24 Unknown History docusate sodium 100 mg capsule 100 mg PO BID 02/29/24 02/29/24 Unknown History magnesium citrate 100 mg capsule 200 mg PO BEDTIME 02/29/24 02/29/24 Unknown History metoprolol tartrate 50 mg tablet 50 mg PO BID 02/29/24 02/29/24 Unknown History pantoprazole 40 mg tablet,delayed 40 mg PO DAILY@0630 02/29/24 02/29/24 Unknown History release polyethylene glycol 3350 17 gram 17 g PO DAILY PRN Constipation 02/29/24 02/29/24 Unknown History oral powder packet rivaroxaban 20 mg tablet (Xarelto) 20 mg PO DAILY@1700 02/29/24 02/29/24 Unknown History Physical Exam 2 Vital Signs: Vital Signs: Last Vital Signs Temp 98.1 F 02/29/24 07:04 Pulse 126 H 02/29/24 07:04 Resp 22 H 02/29/24 07:04 BP 122/83 02/29/24 07:04 Pulse Ox 97 02/29/24 07:04 O2 Del Method Room Air 02/29/24 07:04 Oxygen Flow Rate 4 02/28/24 16:06 BMI result Body Mass Index 29.4 Const: Other: Answers questions well General: comfortable and no acute distress Eyes: Other: Legally blind Neck: Neck: Yes no lymphadenopathy Resp: Auscultation: clear to auscultation bilaterally Cardio: Rhythm: regular rhythm GI: Palpation (GI): Soft to palpation, nontender and no guarding Results Labs 03/01/24 07:05 03/01/24 07:05 Labs: Abnormal lab results 02/28/24 02/28/24 02/28/24 Range/Units 17:17 18:52 20:43 WBC 11.3 H (4.8-10.8) X10*3/uL MCH 26.4 L (27.0-33.0) pg RDW 17.8 H (11.0-16.0) % Immature Gran % (Auto) 0.7 H (0.0-0.4) % Neut % (Auto) 78.8 H (45-73) % Lymph % (Auto) 8.7 L (20-40) % [place] % (Auto) (2-11) % Lymph # (Auto) 1.0 L (1.2-4.9) X10*3/uL Abs Immat Gran (auto) 0.08 H (0.00-0.03) X10*3/uL Absolute Neuts (auto) 8.9 H (2.0-8.3) x10*3/uL Sodium 130 L 129 L (135-145) mmol/L Carbon Dioxide 15 L 15 L (22-29) mmol/L BUN 55 H 54 H (9-16) mg/dL Creatinine 2.11 H 2.00 H (0.5-1.4) mg/dL Lactic Acid 2.2 H* (0.5-2.0) mmol/L Calcium 7.9 L 7.5 L (8.4-10.2) mg/dL Total Protein 5.9 L (6.5-8.0) g/dL Albumin 2.8 L (3.5-5.0) g/dL Ur Leukocyte Esterase Trace H (Negative) 02/29/24 Range/Units 05:11 WBC (4.8-10.8) X10*3/uL MCH 26.5 L (27.0-33.0) pg RDW 17.9 H (11.0-16.0) % Immature Gran % (Auto) (0.0-0.4) % Neut % (Auto) 78.4 H (45-73) % Lymph % (Auto) 9.2 L (20-40) % [place] % (Auto) 11.8 H (2-11) % Lymph # (Auto) 0.8 L (1.2-4.9) X10*3/uL Abs Immat Gran (auto) (0.00-0.03) X10*3/uL Absolute Neuts (auto) (2.0-8.3) x10*3/uL Sodium 132 L (135-145) mmol/L Carbon Dioxide 15 L (22-29) mmol/L BUN 50 H (9-16) mg/dL Creatinine 1.79 H (0.5-1.4) mg/dL Lactic Acid (0.5-2.0) mmol/L Calcium 7.6 L (8.4-10.2) mg/dL Total Protein (6.5-8.0) g/dL Albumin (3.5-5.0) g/dL Ur Leukocyte Esterase (Negative) Short CBC 02/28/24 02/29/24 Range/Units 18:52 05:11 WBC 11.3 H 8.5 (4.8-10.8) X10*3/uL Hgb 12.8 12.0 (12.0-16.0) g/dl Hct 39.7 37.7 (37.0-47.0) % Plt Count 304 290 (160-400) X10*3/uL BMP 02/28/24 02/28/24 02/29/24 18:52 20:43 05:11 Sodium 130 L 129 L 132 L Potassium 4.6 4.4 4.4 Chloride 101 105 107 Carbon Dioxide 15 L 15 L 15 L BUN 55 H 54 H 50 H Creatinine 2.11 H 2.00 H 1.79 H Calcium 7.9 L 7.5 L 7.6 L Liver Function 02/28/24 Range/Units 18:52 Total Bilirubin 0.2 (0.0-1.0) mg/dL AST 31 (5-31) U/L ALT 6 (0-31) U/L Alkaline Phosphatase 110 (39-117) U/L Albumin 2.8 L (3.5-5.0) g/dL Urine 02/28/24 Range/Units 17:17 Urine Color Yellow Urine Appearance Cloudy Urine pH 5.5 (5.0-9.0) Ur Specific [place] 1.025 (1.005-1.025) Urine Protein Trace (Neg-Trace) mg/dL Urine Glucose (UA) Negative (Negative) mg/dL All other labs normal. Imaging Abdomen CT scan report/results: report reviewed and image reviewed CT scan - pelvis: report reviewed and image reviewed Additional studies: Laboratory Results WBC 8.5 X10*3/uL (4.8-10.8) 02/29/24 05:11 RBC 4.52 X10*6/uL (4.20-5.50) 02/29/24 05:11 Hgb 12.0 g/dl (12.0-16.0) 02/29/24 05:11 Hct 37.7 % (37.0-47.0) 02/29/24 05:11 MCV 83.4 fL (80.0-98.0) 02/29/24 05:11 MCH 26.5 pg (27.0-33.0) L 02/29/24 05:11 MCHC 31.8 g/dl (31.0-35.0) 02/29/24 05:11 RDW 17.9 % (11.0-16.0) H 02/29/24 05:11 Plt Count 290 X10*3/uL (160-400) 02/29/24 05:11 MPV 9.9 fL (9.4-12.3) 02/29/24 05:11 Immature Gran % (Auto) 0.4 % (0.0-0.4) 02/29/24 05:11 Neut % (Auto) 78.4 % (45-73) H 02/29/24 05:11 Lymph % (Auto) 9.2 % (20-40) L 02/29/24 05:11 [place] % (Auto) 11.8 % (2-11) H 02/29/24 05:11 Eos % (Auto) 0.0 % (0-4) 02/29/24 05:11 Baso % (Auto) 0.2 % (0-2) 02/29/24 05:11 Lymph # (Auto) 0.8 X10*3/uL (1.2-4.9) L 02/29/24 05:11 [place] # (Auto) 1.0 X10*3/uL (0.1-1.2) 02/29/24 05:11 Eos # (Auto) 0.0 X10*3/uL (0.0-0.4) 02/29/24 05:11 Baso # (Auto) 0.0 X10*3/uL (0.0-0.2) 02/29/24 05:11 Abs Immat Gran (auto) 0.03 X10*3/uL (0.00-0.03) 02/29/24 05:11 Absolute Neuts (auto) 6.7 x10*3/uL (2.0-8.3) 02/29/24 05:11 Absolute Nucleated RBC 0.000 X10*3/uL (0.0-0.012) 02/29/24 05:11 Nucleated RBC % (auto) 0.0 /100WBC (0.0-0.2) 02/29/24 05:11 Sodium 132 mmol/L (135-145) L 02/29/24 05:11 Potassium 4.4 mmol/L (3.3-5.1) 02/29/24 05:11 Chloride 107 mmol/L (96-108) 02/29/24 05:11 Carbon Dioxide 15 mmol/L (22-29) L 02/29/24 05:11 Anion Gap 14 (12-20) 02/29/24 05:11 BUN 50 mg/dL (9-16) H 02/29/24 05:11 Creatinine 1.79 mg/dL (0.5-1.4) H 02/29/24 05:11 Estim Creat Clear Calc 27.8 02/29/24 05:11 Estimated GFR 28 02/29/24 05:11 Random Glucose 95 mg/dL (60-115) 02/29/24 05:11 Lactic Acid 1.6 mmol/L (0.5-2.0) 02/28/24 20:43 Calcium 7.6 mg/dL (8.4-10.2) L 02/29/24 05:11 Total Bilirubin 0.2 mg/dL (0.0-1.0) 02/28/24 18:52 AST 31 U/L (5-31) 02/28/24 18:52 ALT 6 U/L (0-31) 02/28/24 18:52 Alkaline Phosphatase 110 U/L (39-117) 02/28/24 18:52 Total Protein 5.9 g/dL (6.5-8.0) L 02/28/24 18:52 Albumin 2.8 g/dL (3.5-5.0) L 02/28/24 18:52 Urine Color Yellow 02/28/24 17:17 Urine Appearance Cloudy 02/28/24 17:17 Urine pH 5.5 (5.0-9.0) 02/28/24 17:17 Ur Specific [place] 1.025 (1.005-1.025) 02/28/24 17:17 Urine Protein Trace mg/dL (Neg-Trace) 02/28/24 17:17 Urine Glucose (UA) Negative mg/dL (Negative) 02/28/24 17:17 Urine Ketones Negative mg/dL (Negative) 02/28/24 17:17 Urine Blood Trace (Negative) 02/28/24 17:17 Urine Nitrite Negative (Negative) 02/28/24 17:17 Ur Leukocyte Esterase Trace (Negative) H 02/28/24 17:17 Urine RBC 0-2 /HPF (0-2) 02/28/24 17:17 Urine WBC 0-5 /HPF (0-5) 02/28/24 17:17 Ur Squamous Epith Cells 3-5 /HPF (0-2) 02/28/24 17:17 Urine Bacteria 3+ (None Seen) 02/28/24 17:17 Hyaline Casts 0-2 /LPF (0-2) 02/28/24 17:17 Influenza Type A (PCR) NEGATIVE (Negative) 02/28/24 17:18 Influenza Type B (PCR) NEGATIVE (Negative) 02/28/24 17:18 RSV RNA Qual (PCR) NEGATIVE (Negative) 02/28/24 17:18 SARS-CoV-2 RNA (RT-PCR) NEGATIVE (Negative) 02/28/24 17:18 Assessment and Plan (1) Diarrhea: Status: Acute 73-year-old female with multiple medical problems as described above, who was brought to the ER yesterday because of weakness, with falls, and severe diarrhea. She had an abdominal CT scan suggesting small bowel obstruction in the deep pelvis. I have reviewed her images. There was note of dilated small bowel loops in the pelvis. She does have air in the right colon. Her stomach is not distended Currently she denies any vomiting nausea. She denies any significant discomfort except for severe weakness. Her abdomen is soft and very benign. She has no significant tenderness or guarding I would keep her NPO for now although she may have ice chips. It does not appear that she will benefit from an NG tube at this time. We will follow her closely for serial abdominal exams. She came in with elevated lactate as well as creatinine but this have improved with IV hydration. Procedures Date of Service Date of Service: 03/01/24
--- NOTE | 2024-02-29 09:09 | PHA.MEDREC ---
Addendum entered by Molly Salgado [facility] 02/29/24 09:13: Pt most recently filled metoprolol tartrate 50mg BID, so went with that as she hasn't gotten toprol XL in her claims as reflected. Original Note: Pharmacy Consult ? Medication Reconciliation Pharmacy has completed the medication reconciliation, spoke to patient at bedside but she was quite confused. Said her son had brought in a list, utilized that - from PCP visit on 01/08/24. Used claims as well to match up what the list reflects. Pt confirmed she takes pantoprazole and not lansoprazole. Pt was also unsure if she uses metoprolol succ or tartrate BID but said to utilize the list that son brought in.
[2024-02-29] MEDS: Metoprolol Tartrate 25 MG TABLET PO (10:07)
[2024-02-29] MEDS: Acetaminophen 325 MG TABLET 975 MG PO (10:07)
--- NOTE | 2024-02-29 10:42 | P.CONGS_ITS ---
<Statement entered by Fareed Crook MD - 02/29/24 15:22> I have seen and evaluated the patient and agree with history, findings, assessment and plan documented by Erin Jimenez PA-c. Patient's daughter was at bedside. We did discuss the findings of abdominal aortic aneurysm. CT scan was reviewed and imaging was discussed with the family. At the current time it does appear to be stable. She had been followed by [facility] vascular regarding this but would like to transfer her care over to us. Upon resolution of this small bowel obstruction happy to see her as an outpatient. Thank you for allowing us to assist in her care. If there are any questions or concerns please do not hesitate to contact us. History of Present Illness Consult details Consult date: 02/29/24 Narrative: We were consulted on Trupti, a pleasant 73-year-old female patient, for a finding on a noncontrast abdominal CT of an increase in size of an infrarenal AAA to approximately 5.1 cm. The patient presented to the ER yesterday with concerns of weakness, falls, and diarrhea. She was admitted for dehydration and also on CT was found to have a high-grade small-bowel obstruction in the deep pelvis. She was made NPO. She does have a history significant for COPD, AFib with a history of RFA, C diff colitis, and surgical history including appendectomy and hysterectomy. She states she is a former smoker. She does continue on Xarelto for the AFib. She has had a history of a neurogenic bladder of which she has an indwelling catheter. She was recently placed on an antibiotic for a UTI, Bactrim b.i.d.. She denies any nausea, vomiting, or abdominal pain this morning. She states she was made aware of the AAA approximately 2 years ago on incidental finding on CT; she has been followed by [facility] vascular every 6 months with surveillance ultrasounds, the last one either in December or January. She states she is due for an ultrasound again in June. Review of Systems 2 Constitutional: Constitutional: Reports as per HPI and Denies weakness ENT: Reports Normal hearing present and Denies dizziness Cardiovascular: Cardiovascular: Reports as per HPI, Denies chest pain, Denies chest pain at rest, Denies chest pain with activity, Denies dyspnea and Denies dyspnea on exertion Respiratory: Respiratory: Reports as per HPI, Denies cough, Denies dyspnea and Denies dyspnea on exertion Gastrointestinal: Gastrointestinal: Reports as per HPI, Denies abdominal pain, Denies nausea and Denies vomiting Musculoskeletal: Musculoskeletal: Denies numbness Integumentary/Breasts: Skin/Breast: Reports as per HPI, Denies erythema and Denies wounds Neurologic: Reports Normal hearing present, Denies dizziness, Denies numbness, Denies Sensory deficit (Neuro) and Denies weakness Psychiatric: Psychiatric: Reports no additional psychiatric complaints Endocrine: Endocrine: Reports no additional endocrine complaints [facility] Past Medical History Medical History AAA (abdominal aortic aneurysm) Permanent atrial fibrillation Atrial fibrillation On beta mayra at home Legally blind Retention, urine Pneumonia Exercise hypoxemia GERD (gastroesophageal reflux disease) Hypertension Persistent atrial fibrillation COPD (chronic obstructive pulmonary disease) Dyspnea on exertion HTN (hypertension) Cardiac pacemaker in situ Sick sinus syndrome Family History Family History Father CHF (congestive heart failure) Cancer Pacemaker Mother Emphysema lung Surgical History Surgical History History of endoscopy Hx of colonoscopy History of esophagogastroduodenoscopy (EGD) Hx of hysterectomy Hx of cardiac pacemaker History of radiofrequency ablation (RFA) for complex left atrial arrhythmia History of cardioversion Social History Social History Household Members: Spouse and Children Housing: House Are you a primary professional healthcare representative to a significant other at home: No Do you presently have visiting nurse or other home services: No Unable to assess alcohol history related to: Unknown Alcohol intake: former Patient Tobacco Use Status: Former Tobacco user Smoked in Last 30 Days: No Use of substances other than those prescribed or required for medical reasons: No Advance Directives: Yes Advance Directives on File: Yes Advance Directives Date on File: 07/26/22 service: No Meds Allergies Allergy/AdvReac Type Severity Reaction Status Date / Time No Known Allergies Allergy Verified 02/28/24 16:14 [No Known Allergies*] Active Medications: Current Medications Acetaminophen (Acetaminophen 325 Mg Tablet) 975 mg PO Q6H PRN PRN Reason: Pain, Mild 1-3,fever,headache Last Admin: 02/29/24 10:07 Dose: 975 mg Calcium Carbonate (Calcium Carbonate 750 Mg Tab.Chew) 750 mg PO Q4H PRN PRN Reason: Heartburn Sodium Chloride (Ns) 1,000 mls @ 80 mls/hr IVCONT .[id number] [facility] Last Admin: 02/29/24 02:38 Dose: 80 mls/hr Magnesium Hydroxide (Milk Of Magnesia 30 Ml Oral.Susp) 30 ml PO DAILY PRN PRN Reason: Constipation Melatonin (Melatonin 3 Mg Tablet) 6 mg PO BEDTIME PRN PRN Reason: Insomnia Metoprolol Tartrate (Metoprolol Tartrate 25 Mg Tablet) 25 mg PO BID [facility]; Protocol Last Admin: 02/29/24 10:07 Dose: 25 mg Ondansetron HCl (Ondansetron Hcl 4 Mg/2 Ml Vial) 4 mg IVPUSH Q8H PRN PRN Reason: Nausea and Vomiting Sodium Chloride (0.9 % Sodium Chloride Flush 3 Ml Syringe) 3 ml IVFLUSH QSHIFT [facility] Last Admin: 02/29/24 07:27 Dose: 3 ml Vancomycin HCl (Vancomycin Hcl 125 Mg Capsule) 125 mg PO Q6H [facility] Last Admin: 02/29/24 07:26 Dose: 125 mg Home Medications ?Medication ?Instructions ?Recorded ?Confirmed ?Last Taken ?Type folic acid 1 mg tablet 1 mg PO DAILY 04/07/20 02/29/24 10/01/22 History simvastatin 40 mg tablet 40 mg PO BEDTIME 02/10/21 02/29/24 10/01/22 History albuterol sulfate 90 mcg/actuation 2 puff inhalation Q6H PRN wheezing 05/12/22 02/29/24 10/01/22 History aerosol inhaler ipratropium 0.5 mg-albuterol 3 mg 3 ml inhalation Q4H PRN wheezing 05/12/22 02/29/24 10/01/22 History (2.5 mg base)/3 mL nebulization soln escitalopram oxalate 10 mg tablet 10 mg PO DAILY 02/10/23 02/29/24 Unknown History calcium carbonate 260 mg PO DAILY PRN Dyspepsia 06/08/23 02/29/24 Unknown History cholecalciferol (vitamin D3) 25 25 mcg PO DAILY 06/08/23 02/29/24 Unknown History mcg (1,000 unit) capsule Lactobacillus acidophilus 0.5 mg 0.5 mg PO DAILY 01/19/24 02/29/24 Unknown History (100 million cell) tablet cyanocobalamin (vitamin B-12) 1,000 mcg PO DAILY 01/19/24 02/29/24 Unknown History 1,000 mcg tablet estradiol 0.01% (0.1 mg/gram) 2 g vaginal 2XW 01/19/24 02/29/24 Unknown History vaginal cream ferrous sulfate 325 mg (65 mg 325 mg PO Q48H 01/19/24 02/29/24 Unknown History iron) tablet fluticasone propionate 50 2 spray intranasal DAILY 01/19/24 02/29/24 Unknown History mcg/actuation nasal spray,suspension hydrocodone 5 mg-acetaminophen 325 1 tab PO BID PRN pain 01/19/24 02/29/24 Unknown History mg tablet dicyclomine 10 mg capsule 10 mg PO BID 02/29/24 02/29/24 Unknown History docusate sodium 100 mg capsule 100 mg PO BID 02/29/24 02/29/24 Unknown History magnesium citrate 100 mg capsule 200 mg PO BEDTIME 02/29/24 02/29/24 Unknown History metoprolol tartrate 50 mg tablet 50 mg PO BID 02/29/24 02/29/24 Unknown History pantoprazole 40 mg tablet,delayed 40 mg PO DAILY@0630 02/29/24 02/29/24 Unknown History release polyethylene glycol 3350 17 gram 17 g PO DAILY PRN Constipation 02/29/24 02/29/24 Unknown History oral powder packet rivaroxaban 20 mg tablet (Xarelto) 20 mg PO DAILY@1700 02/29/24 02/29/24 Unknown History Physical Exam 2 Vital Signs: Vital Signs: Last Vital Signs Temp 98.1 F 02/29/24 07:04 Pulse 122 H 02/29/24 10:07 Resp 22 H 02/29/24 07:04 BP 122/83 02/29/24 10:07 Pulse Ox 97 02/29/24 07:04 O2 Del Method Room Air 02/29/24 07:04 Oxygen Flow Rate 4 02/28/24 16:06 BMI result Body Mass Index 29.4 Const: General: comfortable and no acute distress O rientation/consciousness: patient oriented x3 HEENT: Ears: hearing grossly normal bilaterally Resp: Effort & Inspection: normal respiratory effort and able to speak in complete sentences Auscultation: clear to auscultation bilaterally Cardio: Rate: regular rate Rhythm: regular rhythm Heart sounds: S1 normal heart sound present and S2 normal heart sound present Bruits: no abdominal aortic bruits, no carotid bruits, no femoral bruits and no renal bruits GI: Palpation (GI): No Abdominal aortic bruit present Neuro: General: patient oriented x3 Cranial nerves: Yes Normal hearing present Sensory Exam: No Sensory deficit (Neuro) Results Labs 02/29/24 05:11 02/29/24 05:11 Labs: Abnormal lab results 02/28/24 02/28/24 02/28/24 Range/Units 17:17 18:52 20:43 WBC 11.3 H (4.8-10.8) X10*3/uL MCH 26.4 L (27.0-33.0) pg RDW 17.8 H (11.0-16.0) % Immature Gran % (Auto) 0.7 H (0.0-0.4) % Neut % (Auto) 78.8 H (45-73) % Lymph % (Auto) 8.7 L (20-40) % [place] % (Auto) (2-11) % Lymph # (Auto) 1.0 L (1.2-4.9) X10*3/uL Abs Immat Gran (auto) 0.08 H (0.00-0.03) X10*3/uL Absolute Neuts (auto) 8.9 H (2.0-8.3) x10*3/uL Sodium 130 L 129 L (135-145) mmol/L Carbon Dioxide 15 L 15 L (22-29) mmol/L BUN 55 H 54 H (9-16) mg/dL Creatinine 2.11 H 2.00 H (0.5-1.4) mg/dL Lactic Acid 2.2 H* (0.5-2.0) mmol/L Calcium 7.9 L 7.5 L (8.4-10.2) mg/dL Total Protein 5.9 L (6.5-8.0) g/dL Albumin 2.8 L (3.5-5.0) g/dL Ur Leukocyte Esterase Trace H (Negative) 02/29/24 Range/Units 05:11 WBC (4.8-10.8) X10*3/uL MCH 26.5 L (27.0-33.0) pg RDW 17.9 H (11.0-16.0) % Immature Gran % (Auto) (0.0-0.4) % Neut % (Auto) 78.4 H (45-73) % Lymph % (Auto) 9.2 L (20-40) % Kerr % (Auto) 11.8 H (2-11) % Lymph # (Auto) 0.8 L (1.2-4.9) X10*3/uL Abs Immat Gran (auto) (0.00-0.03) X10*3/uL Absolute Neuts (auto) (2.0-8.3) x10*3/uL Sodium 132 L (135-145) mmol/L Carbon Dioxide 15 L (22-29) mmol/L BUN 50 H (9-16) mg/dL Creatinine 1.79 H (0.5-1.4) mg/dL Lactic Acid (0.5-2.0) mmol/L Calcium 7.6 L (8.4-10.2) mg/dL Total Protein (6.5-8.0) g/dL Albumin (3.5-5.0) g/dL Ur Leukocyte Esterase (Negative) Short CBC 02/28/24 02/29/24 Range/Units 18:52 05:11 WBC 11.3 H 8.5 (4.8-10.8) X10*3/uL Hgb 12.8 12.0 (12.0-16.0) g/dl Hct 39.7 37.7 (37.0-47.0) % Plt Count 304 290 (160-400) X10*3/uL BMP 02/28/24 02/28/24 02/29/24 18:52 20:43 05:11 Sodium 130 L 129 L 132 L Potassium 4.6 4.4 4.4 Chloride 101 105 107 Carbon Dioxide 15 L 15 L 15 L BUN 55 H 54 H 50 H Creatinine 2.11 H 2.00 H 1.79 H Calcium 7.9 L 7.5 L 7.6 L Liver Function 02/28/24 Range/Units 18:52 Total Bilirubin 0.2 (0.0-1.0) mg/dL AST 31 (5-31) U/L ALT 6 (0-31) U/L Alkaline Phosphatase 110 (39-117) U/L Albumin 2.8 L (3.5-5.0) g/dL Urine 02/28/24 Range/Units 17:17 Urine Color Yellow Urine Appearance Cloudy Urine pH 5.5 (5.0-9.0) Ur Specific [place] 1.025 (1.005-1.025) Urine Protein Trace (Neg-Trace) mg/dL Urine Glucose (UA) Negative (Negative) mg/dL All other labs normal. Assessment and Plan (1) Infrarenal abdominal aortic aneurysm (AAA) without rupture: Status: Acute Plan We were consulted on jaxon Lyles 73-year-old female patient, who presented to the ER yesterday with weakness, falls, diarrhea. She was admitted for a high-grade small-bowel obstruction in the deep pelvis. On noncontrast CT it was found that her infrarenal AAA was increased to approximately 5.1 cm. She states the last one on ultrasound was 4.2 cm. She does have ultrasound surveillance with [facility] vascular every 6 months. We have reviewed the CT. We have ordered an echo, in case any vascular surgery intervention is required. She states that she would like to follow up with us instead of [facility] for vascular services. At this point we will we continuing to monitor. There is no acute vascular surgical intervention at this point. Thank you for the consult. If there are any questions or concerns, please do not hesitate to reach out to us. Procedures Date of Service Date of Service: 02/29/24
--- NOTE | 2024-02-29 11:45 | MHC.EDTECH ---
pt switched into hospital bed awaiting bed placement, room moved from 15 to 17 and placed on contact precautions for possible C diff per RN
--- NOTE | 2024-02-29 12:07 | P.PNIM_ITS ---
Subjective Subjective Date of Service: 02/29/24 Interval History: seen and examined this morning follow up for MARCI ?SBO awake, alert, denies abdominal pain, or vomiting Review of Systems Review of Systems: Yes all other systems are reviewed and are negative Constitutional Constitutional: Denies chills and Denies fever(s) Cardiovascular Cardiovascular: Denies chest pain, Denies palpitations and Denies dyspnea Respiratory Respiratory: Denies cough and Denies dyspnea Gastrointestinal Gastrointestinal: Denies abdominal pain and Denies vomiting Endocrine Endocrine: Denies palpitations Physical Exam 2 Vital Signs: Vital Signs: Last Vital Signs Temp 98.1 F 02/29/24 07:04 Pulse 122 H 02/29/24 10:07 Resp 22 H 02/29/24 07:04 BP 122/83 02/29/24 10:07 Pulse Ox 97 02/29/24 07:04 O2 Del Method Room Air 02/29/24 07:04 Oxygen Flow Rate 4 02/28/24 16:06 BMI result Body Mass Index 29.4 Const: General: alert, awake and Physically active Nutritional Appearance: average body habitus Orientation/consciousness: patient oriented x3 Resp: Effort & Inspection: normal respiratory effort, able to speak in complete sentences, no respiratory distress and no use of accessory muscles Cardio: Rate: tachycardic GI: Inspection: No distended Palpation (GI): Soft to palpation, nontender and no guarding Neuro: General: patient oriented x3, No moves all extremities and No CN's II- XI intact bilaterally Objective Data Active Medications Acetaminophen (Acetaminophen 325 Mg Tablet) 975 mg PO Q6H PRN PRN Reason: Pain, Mild 1-3,fever,headache Last Admin: 02/29/24 10:07 Dose: 975 mg Documented By: WAYNE Calcium Carbonate (Calcium Carbonate 750 Mg Tab.Chew) 750 mg PO Q4H PRN PRN Reason: Heartburn Sodium Chloride (Ns) 1,000 mls @ 80 mls/hr IVCONT .[id number] [facility] Last Admin: 02/29/24 02:38 Dose: 80 mls/hr Documented By: MATEO-PORGAURAV Magnesium Hydroxide (Milk Of Magnesia 30 Ml Oral.Susp) 30 ml PO DAILY PRN PRN Reason: Constipation Melatonin (Melatonin 3 Mg Tablet) 6 mg PO BEDTIME PRN PRN Reason: Insomnia Metoprolol Tartrate (Metoprolol Tartrate 25 Mg Tablet) 25 mg PO BID [facility]; Protocol Last Admin: 02/29/24 10:07 Dose: 25 mg Documented By: WAYNE Ondansetron HCl (Ondansetron Hcl 4 Mg/2 Ml Vial) 4 mg IVPUSH Q8H PRN PRN Reason: Nausea and Vomiting Sodium Chloride (0.9 % Sodium Chloride Flush 3 Ml Syringe) 3 ml IVFLUSH QSHIFT [facility] Last Admin: 02/29/24 07:27 Dose: 3 ml Documented By: WAYNE Vancomycin HCl (Vancomycin Hcl 125 Mg Capsule) 125 mg PO Q6H [facility] Last Admin: 02/29/24 07:26 Dose: 125 mg Documented By: WAYNE Labs 02/29/24 05:11 02/29/24 05:11 Labs: Laboratory Results - last 24 hr 02/28/24 02/28/24 02/28/24 17:17 17:18 18:52 MCV 82.0 MCH 26.4 L MCHC 32.2 RDW 17.8 H Plt Count 304 MPV 9.7 Immature Gran % (Auto) 0.7 H Neut % (Auto) 78.8 H Lymph % (Auto) 8.7 L [place] % (Auto) 10.7 Eos % (Auto) 0.2 Baso % (Auto) 0.9 Lymph # (Auto) 1.0 L [place] # (Auto) 1.2 Eos # (Auto) 0.0 Baso # (Auto) 0.1 Abs Immat Gran (auto) 0.08 H Absolute Neuts (auto) 8.9 H Absolute Nucleated RBC 0.000 Nucleated RBC % (auto) 0.0 Anion Gap 19 Estim Creat Clear Calc 23.5 Estimated GFR 23 Random Glucose 106 Lactic Acid 2.2 H* Calcium 7.9 L Total Bilirubin 0.2 AST 31 ALT 6 Alkaline Phosphatase 110 Total Protein 5.9 L Albumin 2.8 L Urine Color Yellow Urine Appearance Cloudy Urine pH 5.5 Ur Specific [place] 1.025 Urine Protein Trace Urine Glucose (UA) Negative Urine Ketones Negative Urine Blood Trace Urine Nitrite Negative Ur Leukocyte Esterase Trace H Urine RBC 0-2 Urine WBC 0-5 Ur Squamous Epith Cells 3-5 Urine Bacteria 3+ Hyaline Casts 0-2 Influenza Type A (PCR) NEGATIVE Influenza Type B (PCR) NEGATIVE RSV RNA Qual (PCR) NEGATIVE SARS-CoV-2 RNA (RT-PCR) NEGATIVE 02/28/24 02/29/24 20:43 05:11 MCV 83.4 MCH 26.5 L MCHC 31.8 RDW 17.9 H Plt Count 290 MPV 9.9 Immature Gran % (Auto) 0.4 Neut % (Auto) 78.4 H Lymph % (Auto) 9.2 L [place] % (Auto) 11.8 H Eos % (Auto) 0.0 Baso % (Auto) 0.2 Lymph # (Auto) 0.8 L [place] # (Auto) 1.0 Eos # (Auto) 0.0 Baso # (Auto) 0.0 Abs Immat Gran (auto) 0.03 Absolute Neuts (auto) 6.7 Absolute Nucleated RBC 0.000 Nucleated RBC % (auto) 0.0 Anion Gap 13 14 Estim Creat Clear Calc 24.9 27.8 Estimated GFR 24 28 Random Glucose 101 95 Lactic Acid 1.6 Calcium 7.5 L 7.6 L Total Bilirubin AST ALT Alkaline Phosphatase Total Protein Albumin Urine Color Urine Appearance Urine pH Ur Specific [place] Urine Protein Urine Glucose (UA) Urine Ketones Urine Blood Urine Nitrite Ur Leukocyte Esterase Urine RBC Urine WBC Ur Squamous Epith Cells Urine Bacteria Hyaline Casts Influenza Type A (PCR) Influenza Type B (PCR) RSV RNA Qual (PCR) SARS-CoV-2 RNA (RT-PCR) Assessment and Plan (1) Infrarenal abdominal aortic aneurysm (AAA) without rupture: Status: Acute (2) Acute kidney injury superimposed on CKD: Status: Acute Plan This is a 71-year-old female with a PMH significant for?persistent AFib on Xarelto, CKD 3, AAA followed by [facility], COPD not on home O2, GERD, hx uterine cancer, HLD, HTN, chronic indwelling Cadet catheter d/t neurogenic bladder, and sick sinus syndrome with pacemaker in-situ who presents to the ED with weakness and shortness of breath. She reported recent nausea, vomiting and diarrhea which has improved. No bowel movement since yesterday. History of C diff and recent Bactrim prescription for UTI. Initially hypotensive and hypoxic on arrival which improved with IV fluids. No respiratory symptoms therefore hypoxia likely secondary to hypotension. Labs also consistent with MARCI secondary to dehydration and Bactrim use. Abdominopelvic CT with high-grade small-bowel obstruction, case discussed with Dr. Gonzalez who recommended admission and consultation tomorrow, unlikely to need surgery as she is not having nausea or vomiting. Initially thought to have Sepsis secondary to suspected GI source ?c diff did meet SIRS criteria on admission with tachycardia and tachypnea Tachycardia due to atrial fibrillation UA, CXR negative No further diarrhea, less likely C diff Leukocytosis resolved no obvious source of infection at this time blood cultures pending at this time started on treatment empirically for C diff with p.o. vancomycin as had diarrhea on days leading up to admission- can likely d/c if no diarrhea today GI panel, cdif pending SBO abdominal exam benign seen by general surgery no need for NGT or surgery at this time NPO continue IVF left hip pain pt reports fall - will check xray per previous notes, pt has chronic left hip pain and follows with ortho for the same MARCI on CKD3 improving with IVF dehydration and Bactrim likely contributing factors continue gentle IVF monitor BMP Hyponatremia, secondary to dehydration continue NS at 80 ml/hr monitor BMP Acute Lactic acidosis likely secondary to MARCI, hypoperfusion and dehydration not severe sepsis resolved with IVF AFib with RVR hold Xarelto due to MARCI and SBO HR uncontrolled, will treat with IV lopressor until tolerating PO meds resume home dose of lopressor when diet is advanced AAA followed by [facility] increased infrarenal abdominal aortic aneurysm seen by vascular surgery - no inpatient surgery indicated at this time, outpatient follow up COPD unspecified no acute exacerbation continue home meds HLD hold mes while NPO Neurogenic bladder chronic Cadet catheter in place UA negative Full code VTE prophylaxis: Pneumoboots Patient with sepsis secondary to likely GI source, possible C diff complicated by MARCI, requiring admission for at least 2 midnights stay for IVF, antibiotics and further workup. Quality Stroke Does the patient have a stroke diagnosis?: No VTE Prior VTE?: No VTE Risk Level:: Medical - moderate - high VTE Device Contraindication: N/A - Device Ordered VTE Drug Contraindication: Treatment Not Indicated
--- NOTE | 2024-02-29 13:00 | CA_ITS ---
Transthoracic Echocardiogram Patient (Last, First, Middle): Trupti Jung A Gender: Female Date of : 1950 Age: 73 Procedure Date: 02/29/2024 Procedure Type: Transthoracic Echocardiogram Location: ER Height: 162.56 cm Weight: 77.57 kg BSA: 1.83 m2 Heart Rate: bpm BP: 122 / 83 mmHg Fiberglass Laminator: KERRY Referring MD: Erin Jimenez PA-C Store Sales Leader: Freddy Pugh MD Symptoms: AAA Study Quality: Adequate with contrast ECG Rhythm: Atrial Fibrillation Conclusions: - 1. Normal LV ejection fraction of 60 65% 2. Severely dilated left atrium 3. Moderate to severe reduction RV systolic function 4. Mild mitral regurgitation 5. Normal RV systolic pressure 6. No gross pericardial effusion Findings Procedure Information Contrast agent, definity, is being given per protocol without apparent complications. Left Ventricle Normal left ventricular size, thickness, and systolic function. The visually estimated ejection fraction is between 60-65%. Diastolic function is indeterminate on the basis of available data. There is mild septal asymmetric hypertrophy. Right Ventricle Mildly increased right ventricular cavity size. There is moderate to severely decreased right ventricular systolic function. Atria The left atrium is severely dilated. There is lipomatous hypertrophy of the interatrial septum. There is no evidence of interatrial shunt. The right atrium is mildly dilated. Aortic Valve There is mild calcification of the aortic valve. There is no aortic valve stenosis. There is no aortic valve regurgitation. Mitral Valve There is mild anterior and posterior mitral leaflet thickening. There is mild mitral valve regurgitation. There is no mitral valve stenosis. Pulmonic Valve The pulmonic valve was not well visualized. Tricuspid Valve Likely normal tricuspid valve structure and function. There is mild tricuspid valve regurgitation. The right ventricular systolic pressure is normal. The right ventricular systolic pressure is 22 mmHg. Normal right atrial pressure. There is no evidence of pulmonary hypertension. Great Vessels All visible segments of the aorta are normal in size. The pulmonary artery was not well visualized. There is no dilatation of the ascending aorta measuring 2.80 cm. Venous The inferior vena cava is normal in size and collapses greater than 50% with inspiration. Pericardium/Pleural There is no evidence of pericardial effusion. Prior Study Comparison Changes noted compared to prior study dated: 10/03/2022. RV systolic function appears to be depressed by TAPSE on this study Measurements 2D Linear Measurements IVSd: 1.14 0.6-0.9/0.6-1.0 cm LVIDd: 4.15 3.9-5.3/4.2-5.9 cm LVIDd Index: 2.27 2.4-3.2/2.2-3.1 cm/m2 LVIDs: 3.04 2.0-3.6 cm LVPWd: 1.04 0.7-1.1 cm LA Diam: 3.50 2.7-3.8/3.0-4.0 cm LAIDs Index: 1.91 1.5-2.3 cm/m2 LV Mass: 189.45 67-162/88-224 g LV Mass Index: 103.52 43-95/49-115 g/m2 LVOT Diam: 2.00 3.0+(-)1.3 cm 2D Systolic Function EF 4C: 65.20 >55% EF 2C: 57.70 >55% EF BiP: 60.20 >55% Mitral Valve MV Pk E: 0.74 MV Decel Time: 149.00 E'Lateral: 12.20 E'Medial: 8.38 E/E' Med: 8.80 E/E' Lat: 6.10 PHT: 44.00 MVA PHT: 5.00 Decel [place]: 4.98 Aortic Valve AoV Pk Eliezer: 1.01 AoV Mn Eliezer: 0.72 AoV VTI: 0.15 AoV Pk Grad: 4.00 Aov Mn Grad: 2.00 AISHWARYA Cont.VTI: 2.08 LVOT LVOT Pk Eliezer: 0.62 LVOT Mn Eliezer: 0.44 LVOT VTI: 0.10 LVOT Pk Grad: 2.00 LVOT Mn Grad: 1.00 LVOT Diam: 2.00 LVOT Area: 3.14 Diastolic Function MV Pk E: 0.74 E'Medial: 8.38 E/E' Med: 8.80 E' Laterial: 12.20 E/E' Lat: 6.10 Right Ventricle TAPSE (mm): 8.28 TVS' Eliezer: 5.40 Tricuspid Valve TR Pk Eliezer: 2.17 TR Pk Grad: 19.00 RA Press: 3.00 RVSP: 22.00 Great Vessels Aorta Sinus of Valsalva: 3.30 2.0-3.5 cm Ao Asc: 2.80 2.1-3.4 cm Pulmonary Valve PV Pk Eliezer: 0.98 Peak PV Grad: 4.00 Updated in Other Vendor System with Status of Final Freddy Pugh MD electronically signed on 02/29/2024 12:39:36 PM with status of Final
--- NOTE | 2024-02-29 15:55 | PM.EVENT ---
Event Note Date of Service: 02/29/24 Event Note: Seen on follow-up this afternoon She denies significant abdominal pain Denies any nausea or vomiting Abdomen remained soft and benign The nurse actually informed me that she had a large bowel movement. I have started her on sips of clear liquids and this will be slowly advanced She was evaluated by Dr. Crook of vascular surgery and intervention for her AAA is being planned once this discharged We will continue to follow Her daughter was with her during the visit Time Spent With Patient Time: Total time managing care of this patient today ____ minutes.
[2024-02-29 16:06] LABS: CDiff Gene PCR POSITIVE (Negative)
--- NOTE | 2024-02-29 16:24 | PC.NURSE ---
pt has large bowel movement at approx 1500- no complaints of pain, MD Gonzalez, and ELPIDIO Huitron Notified, Stool specimens sent
--- NOTE | 2024-02-29 16:25 | PC.NURSE ---
Patient Contact Telephone numbers: Robert: [phone] (pt brother) Cis: [phone] (pt sister) Cristina: [phone] (friend) Zahida: [phone] (friend) Danae: [phone] (pt dtr)
[2024-02-29 16:51] LABS: CDIFF Internal ctrl Dots and bkg OK (V); CDiff Toxin Negative (Negative)
[2024-02-29] MEDS: HYDROcodone Bit/Acetam 5/325 TABLET 1 TAB PO (21:32)
[2024-02-29] MEDS: Metoprolol Tartrate 5 MG/5 ML VIAL 2.5 MG IVPUSH (21:33)
[2024-03-01] VITALS (8 sets, daily range): BP systolic 102–140; BP diastolic 55–93; PULSE 72–110; RESP 16–19; TEMP 36–37.2; O2SAT 98–100
[2024-03-01] MEDS: vancomycin HCL 125 MG CAPSULE PO ×5 (01:20→22:17)
[2024-03-01] MEDS: 0.9 % Sodium Chloride 1,000 ML 80 ML IVCONT (01:20)
[2024-03-01] MEDS: Metoprolol Tartrate 5 MG/5 ML VIAL 2.5 MG IVPUSH ×2 (05:22→11:23)
[2024-03-01 07:20] LABS: MANUAL DIFF FLAG NO
[2024-03-01 07:28] LABS: Basophils Absolute Auto 0.1 X10*3/uL (0.0-0.2); Basophils Percent Auto 0.7 % (0-2); Eosinophils Absolute Auto 0.1 X10*3/uL (0.0-0.4); Eosinophils Percent Auto 0.9 % (0-4); Hematocrit 35.7 % (37.0-47.0); Hemoglobin 10.9 g/dl (12.0-16.0); Imm Gran Abs Auto 0.09 X10*3/uL (0.00-0.03); Imm Gran Pct Auto 1.3 % (0.0-0.4); Lymphocytes Absolute Auto 0.7 X10*3/uL (1.2-4.9); Lymphocytes Percent Auto 10.2 % (20-40); Mean Corpuscular HGB Conc 30.5 g/dl (31.0-35.0); Mean Corpuscular Hemoglobin 26.7 pg (27.0-33.0); Mean Corpuscular Volume 87.3 fL (80.0-98.0); Mean Platelet Volume 9.6 fL (9.4-12.3); Monocytes Absolute Auto 0.6 X10*3/uL (0.1-1.2); Monocytes Percent Auto 8.3 % (2-11); Neutrophils Absolute Auto 5.4 x10*3/uL (2.0-8.3); Neutrophils Percent Auto 78.6 % (45-73); Platelet Count 230 X10*3/uL (160-400); Red Blood Count 4.09 X10*6/uL (4.20-5.50); Red Cell Distribution Width 18.3 % (11.0-16.0); White Blood Count 6.9 X10*3/uL (4.8-10.8)
[2024-03-01 07:41] LABS: Anion Gap 11 (12-20); Blood Urea Nitrogen 33 mg/dL (9-16); Calcium 7.4 mg/dL (8.4-10.2); Carbon Dioxide 12 mmol/L (22-29); Chloride 117 mmol/L (96-108); Creatinine Clr Calc Pharmacy 56.4; Estimated Glomerular Filt Rate > 60; Glucose Random 86 mg/dL (60-115); Potassium 4.2 mmol/L (3.3-5.1); Sodium 136 mmol/L (135-145)
--- NOTE | 2024-03-01 07:50 | PM.PNGS ---
Subjective Subjective Date of Service: 03/05/24 Interval history: Says she feels okay Some mild abdominal pain Denies any diarrhea Denies any nausea or vomiting Physical Exam Vital Signs: Vital Signs: Last Vital Signs Temp 97.6 F 03/01/24 07:01 Pulse 103 H 03/01/24 07:01 Resp 18 03/01/24 07:01 BP 117/80 03/01/24 07:01 Pulse Ox 99 03/01/24 07:01 O2 Del Method Room Air 03/01/24 07:01 Oxygen Flow Rate 4 02/28/24 16:06 BMI result Body Mass Index 28.6 Const: General: no acute distress Resp: Effort & Inspection: normal respiratory effort Cardio: Rate: regular rate GI: Other: Mild tenderness diffusely Palpation (GI): Soft to palpation, not firm and no guarding Objective Data Active Medications Acetaminophen (Acetaminophen 325 Mg Tablet) 975 mg PO Q6H PRN PRN Reason: Pain, Mild 1-3,fever,headache Last Admin: 02/29/24 10:07 Dose: 975 mg Documented By: WAYNE Hydrocodone Bitart/Acetaminophen (Hydrocodone Bit/Acetam 5/325 Tablet) 1 tab PO BID PRN PRN Reason: Pain, Severe (Pain Scale 7-10) Last Admin: 02/29/24 21:32 Dose: 1 tab Documented By: SALVADOR Albuterol Sulfate (Albuterol Sulfate 90 Mcg 8 Gm Inhaler) 2 puff INHALE Q6H PRN PRN Reason: wheezing Calcium Carbonate (Calcium Carbonate 750 Mg Tab.Chew) 750 mg PO Q4H PRN PRN Reason: Heartburn Fluticasone Propionate (Fluticasone Propionate Nasal 16 Gm [place]) 2 spray NOSTRIL-B DAILY [facility] Lactated Ringer's (Lr) 1,000 mls @ 80 mls/hr IVCONT .[id number] [facility] Magnesium Hydroxide (Milk Of Magnesia 30 Ml Oral.Susp) 30 ml PO DAILY PRN PRN Reason: Constipation Melatonin (Melatonin 3 Mg Tablet) 6 mg PO BEDTIME PRN PRN Reason: Insomnia Metoprolol Tartrate (Metoprolol Tartrate 5 Mg/5 Ml Vial) 2.5 mg IVPUSH Q6H PRN; Protocol PRN Reason: HR >100 Ondansetron HCl (Ondansetron Hcl 4 Mg/2 Ml Vial) 4 mg IVPUSH Q8H PRN PRN Reason: Nausea and Vomiting Sodium Chloride (0.9 % Sodium Chloride Flush 3 Ml Syringe) 3 ml IVFLUSH QSHIFT [facility] [place] Last Admin: 02/29/24 21:33 Dose: 3 ml Documented By: SALVADOR Vancomycin HCl (Vancomycin Hcl 125 Mg Capsule) 125 mg PO Q6H [facility] Last Admin: 03/01/24 05:22 Dose: 125 mg Documented By: SALVADOR Labs 03/02/24 06:49 03/03/24 07:02 Labs: Laboratory Results - last 24 hr 02/29/24 03/01/24 14:06 07:05 MCV 87.3 MCH 26.7 L MCHC 30.5 L RDW 18.3 H Plt Count 230 MPV 9.6 Immature Gran % (Auto) 1.3 H Neut % (Auto) 78.6 H Lymph % (Auto) 10.2 L [place] % (Auto) 8.3 Eos % (Auto) 0.9 Baso % (Auto) 0.7 Lymph # (Auto) 0.7 L [place] # (Auto) 0.6 Eos # (Auto) 0.1 Baso # (Auto) 0.1 Abs Immat Gran (auto) 0.09 H Absolute Neuts (auto) 5.4 Absolute Nucleated RBC 0.000 Nucleated RBC % (auto) 0.0 Anion Gap 11 L Estim Creat Clear Calc 56.4 Estimated GFR > 60 Random Glucose 86 Calcium 7.4 L C. difficile Tox B Gene POSITIVE A* C. difficile Toxin A&B Negative C. difficile Interpret SEE NOTE Microbiology Microbiology Results: Microbiology 02/28/24 17:50 Blood Culture - Preliminary Blood - Venous No growth after 24 hours. 02/28/24 18:15 Blood Culture - Preliminary Blood - Venous No growth after 24 hours. Procedures Date of Service Date of Service: 03/05/24 Progress Note: A&P Assessment and plan (1) Small bowel obstruction: Status: Acute Assessment and Plan: Abdominal exam remains benign No nausea or vomiting Positive for C diff On vancomycin Keep on clear liquids for today We will continue to follow Has multiple medical issues Time Spent With Patient Time: Total time managing care of this patient today ____ minutes. Quality Stroke Does the patient have a stroke diagnosis?: No VTE Prior VTE?: No VTE Risk Level:: Medical - moderate - high VTE Device Contraindication: N/A - Device Ordered VTE Drug Contraindication: Treatment Not Indicated
[2024-03-01] MEDS: 0.9 % Sodium Chloride Flush 3 ML SYRINGE IVFLUSH ×2 (09:04→18:27)
[2024-03-01] MEDS: Lactated Ringers 1,000 ML 80 ML IVCONT (09:04)
--- NOTE | 2024-03-01 09:57 | PM.CNCAR ---
History of Present Illness History of Present Illness Date of Service: 03/01/24 Requesting physician: Daphne Huitron Consult reason: atrial fibrillation Chief complaint: weakness, hypotension,sepsis, ?cdiff Narrative: I was consulted to see Trupti in cardiology consultation today for management of atrial fibrillation. Patient was 73-year-old female known to me with prior history of chronic persistent atrial fibrillation asymptomatic, chronic shortness of breath related to COPD and deconditioning, pacemaker placement for sick sinus syndrome with a past has failed rhythm control approach. Patient came to the hospital with GI symptoms as well as poor appetite and not feeling well. Noted to have hypoxemia on presentation along with low blood pressure. She was noted to have a small-bowel obstruction, being treated conservatively also noted to have C diff. Has been hydrated overnight with improvement in overall most of her clinical criteria. She was also noted to be atrial fibrillation rapid ventricular response and has been getting IV metoprolol with better rate control. She has no cardiac symptoms to report. She has chronic shortness of breath. No overt signs of congestive heart failure. Review of Systems Constitutional: Constitutional: Reports fatigue, Reports poor appetite and Reports weakness Cardiovascular: Cardiovascular: Denies chest pain, Reports rapid heart rate, Denies leg edema, Denies lightheadedness, Denies Loss of Consciousness and Reports dyspnea on exertion Respiratory: Respiratory: Reports dyspnea on exertion Gastrointestinal: Gastrointestinal: Reports no additional gastrointestinal complaints Musculoskeletal: Musculoskeletal: Reports no additional musculoskeletal complaints Neurologic: Reports system reviewed and no additional complaints, except as documented and Reports weakness Endocrine: Endocrine: Reports fatigue PMFSH Past Medical History Medical History Small bowel obstruction AAA (abdominal aortic aneurysm) Permanent atrial fibrillation Atrial fibrillation On beta mayra at home Legally blind Retention, urine Pneumonia Exercise hypoxemia GERD (gastroesophageal reflux disease) Hypertension Persistent atrial fibrillation COPD (chronic obstructive pulmonary disease) Dyspnea on exertion HTN (hypertension) Cardiac pacemaker in situ Sick sinus syndrome Family History Family History Father CHF (congestive heart failure) Cancer Pacemaker Mother Emphysema lung Surgical History Surgical History History of endoscopy Hx of colonoscopy History of esophagogastroduodenoscopy (EGD) Hx of hysterectomy Hx of cardiac pacemaker History of radiofrequency ablation (RFA) for complex left atrial arrhythmia History of cardioversion Social History Social History Household Members: Spouse and Children Housing: House Are you a primary careers counsellor to a significant other at home: No Do you presently have visiting nurse or other home services: Yes Unable to assess alcohol history related to: Unknown Alcohol intake: former Patient Tobacco Use Status: Former Tobacco user Advance Directives Date on File: 07/26/22 service: No Meds Allergies Allergy/AdvReac Type Severity Reaction Status Date / Time No Known Allergies Allergy Verified 02/28/24 16:14 [No Known Allergies*] Active Medications: Current Medications Acetaminophen (Acetaminophen 325 Mg Tablet) 975 mg PO Q6H PRN PRN Reason: Pain, Mild 1-3,fever,headache Last Admin: 02/29/24 10:07 Dose: 975 mg Hydrocodone Bitart/Acetaminophen (Hydrocodone Bit/Acetam 5/325 Tablet) 1 tab PO BID PRN PRN Reason: Pain, Severe (Pain Scale 7-10) Last Admin: 02/29/24 21:32 Dose: 1 tab Albuterol Sulfate (Albuterol Sulfate 90 Mcg 8 Gm Inhaler) 2 puff INHALE Q6H PRN PRN Reason: wheezing Calcium Carbonate (Calcium Carbonate 750 Mg Tab.Chew) 750 mg PO Q4H PRN PRN Reason: Heartburn Fluticasone Propionate (Fluticasone Propionate Nasal 16 Gm [place]) 2 spray NOSTRIL-B DAILY [facility] Lactated Ringer's (Lr) 1,000 mls @ 80 mls/hr IVCONT .[id number] [facility] Last Admin: 03/01/24 09:04 Dose: 80 mls/hr Magnesium Hydroxide (Milk Of Magnesia 30 Ml Oral.Susp) 30 ml PO DAILY PRN PRN Reason: Constipation Melatonin (Melatonin 3 Mg Tablet) 6 mg PO BEDTIME PRN PRN Reason: Insomnia Metoprolol Tartrate (Metoprolol Tartrate 5 Mg/5 Ml Vial) 2.5 mg IVPUSH Q6H PRN; Protocol PRN Reason: HR >100 Ondansetron HCl (Ondansetron Hcl 4 Mg/2 Ml Vial) 4 mg IVPUSH Q8H PRN PRN Reason: Nausea and Vomiting Sodium Chloride (0.9 % Sodium Chloride Flush 3 Ml Syringe) 3 ml IVFLUSH QSHIFT [facility] Last Admin: 03/01/24 09:04 Dose: 3 ml Vancomycin HCl (Vancomycin Hcl 125 Mg Capsule) 125 mg PO Q6H [facility] Last Admin: 03/01/24 05:22 Dose: 125 mg Home Medications ?Medication ?Instructions ?Recorded ?Confirmed ?Last Taken ?Type folic acid 1 mg tablet 1 mg PO DAILY 04/07/20 02/29/24 10/01/22 History simvastatin 40 mg tablet 40 mg PO BEDTIME 02/10/21 02/29/24 10/01/22 History albuterol sulfate 90 mcg/actuation 2 puff inhalation Q6H PRN wheezing 05/12/22 02/29/24 10/01/22 History aerosol inhaler ipratropium 0.5 mg-albuterol 3 mg 3 ml inhalation Q4H PRN wheezing 05/12/22 02/29/24 10/01/22 History (2.5 mg base)/3 mL nebulization soln escitalopram oxalate 10 mg tablet 10 mg PO DAILY 02/10/23 02/29/24 Unknown History calcium carbonate 260 mg PO DAILY PRN Dyspepsia 06/08/23 02/29/24 Unknown History cholecalciferol (vitamin D3) 25 25 mcg PO DAILY 06/08/23 02/29/24 Unknown History mcg (1,000 unit) capsule Lactobacillus acidophilus 0.5 mg 0.5 mg PO DAILY 01/19/24 02/29/24 Unknown History (100 million cell) tablet cyanocobalamin (vitamin B-12) 1,000 mcg PO DAILY 01/19/24 02/29/24 Unknown History 1,000 mcg tablet estradiol 0.01% (0.1 mg/gram) 2 g vaginal 2XW 01/19/24 02/29/24 Unknown History vaginal cream ferrous sulfate 325 mg (65 mg 325 mg PO Q48H 01/19/24 02/29/24 Unknown History iron) tablet fluticasone propionate 50 2 spray intranasal DAILY 01/19/24 02/29/24 Unknown History mcg/actuation nasal spray,suspension hydrocodone 5 mg-acetaminophen 325 1 tab PO BID PRN pain 01/19/24 02/29/24 Unknown History mg tablet dicyclomine 10 mg capsule 10 mg PO BID 02/29/24 02/29/24 Unknown History docusate sodium 100 mg capsule 100 mg PO BID 02/29/24 02/29/24 Unknown History magnesium citrate 100 mg capsule 200 mg PO BEDTIME 02/29/24 02/29/24 Unknown History metoprolol tartrate 50 mg tablet 50 mg PO BID 02/29/24 02/29/24 Unknown History pantoprazole 40 mg tablet,delayed 40 mg PO DAILY@0630 02/29/24 02/29/24 Unknown History release polyethylene glycol 3350 17 gram 17 g PO DAILY PRN Constipation 02/29/24 02/29/24 Unknown History oral powder packet rivaroxaban 20 mg tablet (Xarelto) 20 mg PO DAILY@1700 02/29/24 02/29/24 Unknown History Physical Exam Vital Signs: Vital Signs: Last Vital Signs Temp 97.6 F 03/01/24 07:01 Pulse 103 H 03/01/24 07:01 Resp 18 03/01/24 07:01 BP 117/80 03/01/24 07:01 Pulse Ox 99 03/01/24 07:01 O2 Del Method Room Air 03/01/24 07:01 Oxygen Flow Rate 4 02/28/24 16:06 BMI result Body Mass Index 28.6 Const: General: cooperative, comfortable, no acute distress, alert and awake Nutritional Appearance: average body habitus Orientation/consciousness: patient oriented x3 HEENT: Head: Yes normocephalic and Yes atraumatic Neck: Neck: Yes trachea midline, Yes supple and Yes no JVD Resp: Effort & Inspection: decreased respiratory effort Auscultation: no crackles, wheezes and diminished lung sounds Cardio: Jugular venous distension: no JVD Rate: tachycardic Rhythm: abnormal rhythm irregularly irregular Heart sounds: S1 normal heart sound present, S2 normal heart sound present, no click, no gallops and no murmurs Skin: General skin exam: no rashes or lesions noted and ecchymosis Neuro: General: patient oriented x3 and no focal motor deficits Extrem: General: Yes no clubbing, cyanosis or edema Objective Labs and Meds 03/01/24 07:05 03/01/24 07:05 Lab results: Laboratory Results - last 24 hr 02/29/24 03/01/24 14:06 07:05 WBC 6.9 RBC 4.09 L Hgb 10.9 L Hct 35.7 L MCV 87.3 MCH 26.7 L MCHC 30.5 L RDW 18.3 H Plt Count 230 MPV 9.6 Immature Gran % (Auto) 1.3 H Neut % (Auto) 78.6 H Lymph % (Auto) 10.2 L [place] % (Auto) 8.3 Eos % (Auto) 0.9 Baso % (Auto) 0.7 Lymph # (Auto) 0.7 L [place] # (Auto) 0.6 Eos # (Auto) 0.1 Baso # (Auto) 0.1 Abs Immat Gran (auto) 0.09 H Absolute Neuts (auto) 5.4 Absolute Nucleated RBC 0.000 Nucleated RBC % (auto) 0.0 Sodium 136 Potassium 4.2 Chloride 117 H Carbon Dioxide 12 L Anion Gap 11 L BUN 33 H Creatinine 0.87 Estim Creat Clear Calc 56.4 Estimated GFR > 60 Random Glucose 86 Calcium 7.4 L C. difficile Tox B Gene POSITIVE A* C. difficile Toxin A&B Negative C. difficile Interpret SEE NOTE Imaging Radiologist's impression: Impressions Hip/Pelvis X-Ray 02/29/24 13:05 IMPRESSION: 1. 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 This was present on the CT abdomen and pelvis of 02/28/2024. 2. Otherwise, no acute fractures identified. Pelvis and right hip intact. Electronically signed by: Trey Mc MD 02/29/2024 01:18 PM [facility] Assessment and Plan (1) Chronic atrial fibrillation: Status: Acute Plan Patient with chronic atrial fibrillation rate control on metoprolol comes with rapid heart rate and rapid atrial fibrillation due to underlying medical issues with small bowel obstruction as well as C diff colitis and dehydration. Patient was not having any overt signs of congestive heart failure at this point time. Will continue with metoprolol therapy, give IV [id number] till the oral route his establish. If she was difficulty in controlling rate IV Cardizem can be used. Continue treat underlying medical condition aggressively. Oxygen replacement therapy and will require oxygen decide study. Continue full oral anticoagulation with Xarelto, and if can not be given switch to Lovenox therapy till the overall route his establish. Pacemaker seems to be working okay. Will sign of the case. Thank you for allowing me to partake in his care Procedures Date of Service Date of Service: 03/01/24
--- NOTE | 2024-03-01 10:42 | MHC.CM.PN ---
IMM 03/01/24, Pt lives with family, she said she has VNA services from [facility], referral sent [place] [facility] [place]. For DME, she has a walker. HCP is on file and confirmed: chava. PCP confirmed: Dr. Orona. Pt can arrange transport home at [place]. DCP: home with services. CM to follow for DC needs.
[2024-03-01 10:59] LABS: Adenovirus F 40/41 Not Detected (Not Detect.); Astrovirus Not Detected (Not Detect.); Campylobacter Not Detected (Not Detect.); Cryptosporidium Not Detected (Not Detect.); Cyclospora cayetanensis Not Detected (Not Detect.); E. coli EAEC Not Detected (Not Detect.); E. coli EPEC Not Detected (Not Detect.); E. coli ETEC Not Detected (Not Detect.); E. coli STEC Not Detected (Not Detect.); Entamoeba histolytica Not Detected (Not Detect.); Giardia lamblia Not Detected (Not Detect.); Norovirus GI/GII Not Detected (Not Detect.); Plesiomonas shigelloides Not Detected (Not Detect.); Rotavirus A Not Detected (Not Detect.); Salmonella Not Detected (Not Detect.); Sapovirus Not Detected (Not Detect.); Shigella sp./EIEC Not Detected (Not Detect.); Vibrio Not Detected (Not Detect.); Vibrio Cholerae Not Detected (Not Detect.); Yersinia enterocolitica Not Detected (Not Detect.)
[2024-03-01] MEDS: HYDROcodone Bit/Acetam 5/325 TABLET 1 TAB PO ×2 (11:18→19:55)
--- NOTE | 2024-03-01 13:05 | HO.PM.IMPN ---
Subjective Subjective Date of Service: 03/01/24 Interval History: seen and examined this morning follow up for sbo, rapid afib no sob, no abdominal pain or vomiting Review of Systems Review of Systems: Yes all other systems are reviewed and are negative Constitutional Constitutional: Denies chills and Denies fever(s) Cardiovascular Cardiovascular: Denies chest pain, Denies palpitations and Denies dyspnea Respiratory Respiratory: Denies cough and Denies dyspnea Gastrointestinal Gastrointestinal: Denies abdominal pain, Denies nausea and Denies vomiting Endocrine Endocrine: Denies palpitations Physical Exam Vital Signs: Vital Signs: Last Vital Signs Temp 97.4 F 03/01/24 11:09 Pulse 110 H 03/01/24 11:09 Resp 18 03/01/24 11:09 BP 140/93 H 03/01/24 11:09 Pulse Ox 99 03/01/24 11:09 O2 Del Method Room Air 03/01/24 11:09 Oxygen Flow Rate 4 02/28/24 16:06 BMI result Body Mass Index 28.6 Const: General: alert, awake and Physically active Nutritional Appearance: average body habitus Orientation/consciousness: patient oriented x3 Resp: Effort & Inspection: normal respiratory effort, able to speak in complete sentences, no respiratory distress and no use of accessory muscles Cardio: Rate: tachycardic GI: Inspection: No distended Palpation (GI): Soft to palpation, nontender and no guarding Neuro: General: patient oriented x3, No moves all extremities and No CN's II-XI intact bilaterally Objective Data Active Medications Acetaminophen (Acetaminophen 325 Mg Tablet) 975 mg PO Q6H PRN PRN Reason: Pain, Mild 1-3,fever,headache Last Admin: 02/29/24 10:07 Dose: 975 mg Documented By: WAYNE Hydrocodone Bitart/Acetaminophen (Hydrocodone Bit/Acetam 5/325 Tablet) 1 tab PO BID PRN PRN Reason: Pain, Severe (Pain Scale 7-10) Last Admin: 03/01/24 11:18 Dose: 1 tab Documented By: CHRISTIANA Albuterol Sulfate (Albuterol Sulfate 90 Mcg 8 Gm Inhaler) 2 puff INHALE Q6H PRN PRN Reason: wheezing Albuterol/Ipratropium (Albuterol/Iprat 2.5/0.5mg 3 Ml Ampul.Neb) 3 ml INHALE Q4H PRN PRN Reason: wheezing Calcium Carbonate (Calcium Carbonate 750 Mg Tab.Chew) 750 mg PO Q4H PRN PRN Reason: Heartburn Fluticasone Propionate (Fluticasone Propionate Nasal 16 Gm [place]) 2 spray NOSTRIL-B DAILY [facility] Lactated Ringer's (Lr) 1,000 mls @ 80 mls/hr IVCONT .[id number] [facility] Last Admin: 03/01/24 09:04 Dose: 80 mls/hr Documented By: CHRISTIANA Magnesium Hydroxide (Milk Of Magnesia 30 Ml Oral.Susp) 30 ml PO DAILY PRN PRN Reason: Constipation Melatonin (Melatonin 3 Mg Tablet) 6 mg PO BEDTIME PRN PRN Reason: Insomnia Metoprolol Tartrate (Metoprolol Tartrate 50 Mg Tablet) 50 mg PO BID [facility]; Protocol Ondansetron HCl (Ondansetron Hcl 4 Mg/2 Ml Vial) 4 mg IVPUSH Q8H PRN PRN Reason: Nausea and Vomiting Rivaroxaban (Rivaroxaban 20 Mg Tablet) 20 mg PO DAILY@1700 [facility] Sodium Chloride (0.9 % Sodium Chloride Flush 3 Ml Syringe) 3 ml IVFLUSH QSHIFT [facility] Last Admin: 03/01/24 09:04 Dose: 3 ml Documented By: CHRISTIANA Vancomycin HCl (Vancomycin Hcl 125 Mg Capsule) 125 mg PO Q6H [facility] Last Admin: 03/01/24 11:22 Dose: 125 mg Documented By: CHRISTIANA Labs 03/01/24 07:05 03/01/24 07:05 Labs: Laboratory Results - last 24 hr 02/29/24 03/01/24 14:06 07:05 MCV 87.3 MCH 26.7 L MCHC 30.5 L RDW 18.3 H Plt Count 230 MPV 9.6 Immature Gran % (Auto) 1.3 H Neut % (Auto) 78.6 H Lymph % (Auto) 10.2 L [place] % (Auto) 8.3 Eos % (Auto) 0.9 Baso % (Auto) 0.7 Lymph # (Auto) 0.7 L [place] # (Auto) 0.6 Eos # (Auto) 0.1 Baso # (Auto) 0.1 Abs Immat Gran (auto) 0.09 H Absolute Neuts (auto) 5.4 Absolute Nucleated RBC 0.000 Nucleated RBC % (auto) 0.0 Anion Gap 11 L Estim Creat Clear Calc 56.4 Estimated GFR > 60 Random Glucose 86 Calcium 7.4 L Stl C. cayetanensis PCR Not Detected Stool Rotavirus A PCR Not Detected Stl Adenov F 40/41 PCR Not Detected Stool Astrovirus (PCR) Not Detected Stool Campylobacter PCR Not Detected Stool Cryptosporidium PCR Not Detected Stl Sh Tox Pr E STEC PCR Not Detected Stool E coli O157 PCR TNP Stl Enterotoxigenic E PCR Not Detected Stool EPEC (PCR) Not Detected Stool EAEC (PCR) Not Detected Stl E. histolytica PCR Not Detected Stool Giardia Lamblia PCR Not Detected Stl P. shigelloides PCR Not Detected Stool Salmonella PCR Not Detected Stool Sapovirus (PCR) Not Detected Stl Shigella/EIEC PCR Not Detected St Y.enterocolitica PCR Not Detected Stool Vibrio (PCR) Not Detected Stl Vibrio cholerae PCR Not Detected Stl Norovirus GI/GII PCR Not Detected C. difficile Tox B Gene POSITIVE A* C. difficile Toxin A&B Negative C. difficile Interpret SEE NOTE Microbiology Microbiology Results: Microbiology 02/28/24 17:50 Blood Culture - Preliminary Blood - Venous No growth after 24 hours. 02/28/24 18:15 Blood Culture - Preliminary Blood - Venous No growth after 24 hours. Assessment and Plan (1) Small bowel obstruction: Status: Acute Plan This is a 71-year-old female with a PMH significant for?persistent AFib on Xarelto, CKD 3, AAA followed by [facility], COPD not on home O2, GERD, hx uterine cancer, HLD, HTN, chronic indwelling Cadet catheter d/t neurogenic bladder, and sick sinus syndrome with pacemaker in-situ who presents to the ED with weakness and shortness of breath. She reported recent nausea, vomiting and diarrhea which has improved. No bowel movement since yesterday. History of C diff and recent Bactrim prescription for UTI. Initially hypotensive and hypoxic on arrival which improved with IV fluids. No respiratory symptoms therefore hypoxia likely secondary to hypotension. Labs also consistent with MARCI secondary to dehydration and Bactrim use. Abdominopelvic CT with high-grade small-bowel obstruction, case discussed with Dr. Gonzalez who recommended admission and consultation tomorrow, unlikely to need surgery as she is not having nausea or vomiting. possible Sepsis due to c diff did meet SIRS criteria on admission with tachycardia and tachypnea, Tachycardia due to atrial fibrillation UA, CXR negative. No further diarrhea, C diff PCR +, toxin negative more suggestive of colonization, however given diarrhea on admission will complete course of treatment GI panel pending Leukocytosis resolved blood cultures negative to date SBO abdominal exam benign seen by general surgery no need for NGT or surgery at this time advance to clears continue gentle IVF AFib with RVR initially treated with IV lopressor, will transition back to po lopressor resume xarelto as renal function has returned to baseline and no surgical intervention is expected at this time acute hyperchloremic metabolic acidosis due to NS change IVF to LR hyponatremia likely due to dehydration resolved with IVF left hip pain pt reports fall per previous notes, pt has chronic left hip pain and follows with ortho for the same xray showing 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, sclerosis, and fragmentation - ?progression - will consult ortho MARCI on CKD3 dehydration and Bactrim likely contributing factors resolved with IVF Acute Lactic acidosis likely secondary to MARCI, hypoperfusion and dehydration not severe sepsis resolved with IVF AAA followed by [facility] increased infrarenal abdominal aortic aneurysm seen by vascular surgery - no inpatient surgery indicated at this time, outpatient follow up recommended COPD unspecified no acute exacerbation continue home meds HLD hold meds, resume on discharge Neurogenic bladder chronic Cadet catheter in place UA negative Full code VTE prophylaxis: xarelto Patient with sepsis secondary possible C diff, sbo requiring ongoing admission for diet advancement, IV fluid, control of heart rate Quality Stroke Does the patient have a stroke diagnosis?: No VTE Prior VTE?: No VTE Risk Level:: Medical - moderate - high VTE Device Contraindication: N/A - Device Ordered VTE Drug Contraindication: Treatment Not Indicated
[2024-03-01] MEDS: Metoprolol Tartrate 50 MG TABLET PO ×2 (13:20→22:16)
--- NOTE | 2024-03-01 13:25 | PM.EVENT ---
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
--- NOTE | 2024-03-01 13:45 | HO.VASCPN ---
Subjective Subjective Date of Service: 03/01/24 Interval history: Trupti doing well today. She denies any abdominal pain, nausea, vomiting, or diarrhea. She states she is sipping fluids and is tolerating it well. She states she is sleeping okay. She has no new complaints today. Physical Exam Vital Signs: Vital Signs: Last Vital Signs Temp 97.4 F 03/01/24 11:09 Pulse 110 H 03/01/24 11:09 Resp 18 03/01/24 11:09 BP 140/93 H 03/01/24 11:09 Pulse Ox 99 03/01/24 11:09 O2 Del Method Room Air 03/01/24 11:09 Oxygen Flow Rate 4 02/28/24 16:06 BMI result Body Mass Index 28.6 Const: General: comfortable and no acute distress Orientation/consciousness: patient oriented x3 HEENT: Ears: hearing grossly normal bilaterally Resp: Effort & Inspection: normal respiratory effort and able to speak in complete sentences Auscultation: clear to auscultation bilaterally Cardio: Rate: regular rate Rhythm: regular rhythm Heart sounds: S1 normal heart sound present and S2 normal heart sound present Bruits: no abdominal aortic bruits, no carotid bruits, no femoral bruits and no renal bruits GI: Palpation (GI): No Abdominal aortic bruit present Neuro: General: patient oriented x3 Cranial nerves: Yes CN's II-XII intact bilaterally Progress Note: A&P Assessment and plan (1) Infrarenal abdominal aortic aneurysm (AAA) without rupture: Status: Acute Assessment and Plan: Trupti remains stable from a vascular surgery standpoint. I had a lengthy discussion with her today about the importance of follow up with us outpatient, after she gets discharged. We will follow up with her outpatient. There are any questions or concerns, please do not hesitate to reach out to us. Time Spent With Patient Time: Total time managing care of this patient today ____ minutes. Procedures Date of Service Date of Service: 03/01/24 Quality Stroke Does the patient have a stroke diagnosis?: No VTE Prior VTE?: No VTE Risk Level:: Medical - moderate - high VTE Device Contraindication: N/A - Device Ordered VTE Drug Contraindication: Treatment Not Indicated
[2024-03-01] MEDS: Rivaroxaban 20 MG TABLET PO (18:27)
[2024-03-02] VITALS (7 sets, daily range): BP systolic 117–144; BP diastolic 78–96; PULSE 65–95; RESP 16–18; TEMP 36–36.7; O2SAT 97–100
[2024-03-02] MEDS: Lactated Ringers 1,000 ML 80 ML IVCONT ×2 (00:41→12:51)
[2024-03-02] MEDS: vancomycin HCL 125 MG CAPSULE PO ×4 (05:17→22:36)
[2024-03-02 07:18] LABS: MANUAL DIFF FLAG NO
[2024-03-02 07:22] LABS: Basophils Percent Auto 0.6 % (0-2); Eosinophils Absolute Auto 0.1 X10*3/uL (0.0-0.4); Eosinophils Percent Auto 1.1 % (0-4); Hemoglobin 11.9 g/dl (12.0-16.0); Imm Gran Abs Auto 0.18 X10*3/uL (0.00-0.03); Imm Gran Pct Auto 2.7 % (0.0-0.4); Lymphocytes Absolute Auto 0.8 X10*3/uL (1.2-4.9); Lymphocytes Percent Auto 12.2 % (20-40); Mean Corpuscular HGB Conc 32.2 g/dl (31.0-35.0); Mean Corpuscular Hemoglobin 26.8 pg (27.0-33.0); Mean Corpuscular Volume 83.3 fL (80.0-98.0); Mean Platelet Volume 9.5 fL (9.4-12.3); Monocytes Absolute Auto 0.6 X10*3/uL (0.1-1.2); Monocytes Percent Auto 9.3 % (2-11); Neutrophils Absolute Auto 4.9 x10*3/uL (2.0-8.3); Neutrophils Percent Auto 74.1 % (45-73); Platelet Count 246 X10*3/uL (160-400); Red Blood Count 4.44 X10*6/uL (4.20-5.50); Red Cell Distribution Width 18.4 % (11.0-16.0); White Blood Count 6.6 X10*3/uL (4.8-10.8)
[2024-03-02 07:40] LABS: Anion Gap 10 (12-20); Blood Urea Nitrogen 17 mg/dL (9-16); Calcium 7.7 mg/dL (8.4-10.2); Carbon Dioxide 15 mmol/L (22-29); Chloride 116 mmol/L (96-108); Creatinine Clr Calc Pharmacy 73.3; Estimated Glomerular Filt Rate > 60; Glucose Random 101 mg/dL (60-115); Potassium 3.9 mmol/L (3.3-5.1); Sodium 137 mmol/L (135-145)
[2024-03-02] MEDS: 0.9 % Sodium Chloride Flush 3 ML SYRINGE IVFLUSH ×3 (09:27→20:47)
[2024-03-02] MEDS: Metoprolol Tartrate 50 MG TABLET PO ×2 (09:27→20:47)
[2024-03-02] MEDS: HYDROcodone Bit/Acetam 5/325 TABLET 1 TAB PO ×2 (09:29→15:58)
--- NOTE | 2024-03-02 13:44 | P.PNIM_ITS ---
Subjective Subjective Date of Service: 03/02/24 Interval History: Seen and examined this morning Follow-up for bowel obstruction, atrial fibrillation Abdominal pain improving, passing gas. No nausea, no vomiting Ongoing left hip pain Review of Systems Review of Systems: Yes all other systems are reviewed and are negative Constitutional Constitutional: Denies chills and Denies fever(s) Cardiovascular Cardiovascular: Denies dyspnea Respiratory Respiratory: Denies dyspnea Gastrointestinal Gastrointestinal: Denies nausea and Denies vomiting Physical Exam 2 Vital Signs: Vital Signs: Last Vital Signs Temp 97.4 F 03/02/24 11:57 Pulse 83 03/02/24 11:57 Resp 18 03/02/24 11:57 BP 117/86 03/02/24 11:57 Pulse Ox 99 03/02/24 11:57 O2 Del Method Room Air 03/02/24 11:57 Oxygen Flow Rate 4 02/28/24 16:06 BMI result Body Mass Index 28.6 Const: General: alert, awake and Physically active Nutritional Appearance: average body habitus Orientation/consciousness: patient oriented x3 Resp: Effort & Inspection: normal respiratory effort, able to speak in complete sentences, no respiratory distress and no use of accessory muscles GI: Inspection: No distended Palpation (GI): Soft to palpation, nontender and no guarding Neuro: General: patient oriented x3, No moves all extremities and No CN's II- XI intact bilaterally Objective Data Active Medications Acetaminophen (Acetaminophen 325 Mg Tablet) 975 mg PO Q6H PRN PRN Reason: Pain, Mild 1-3,fever,headache Last Admin: 02/29/24 10:07 Dose: 975 mg Documented By: WAYNE Hydrocodone Bitart/Acetaminophen (Hydrocodone Bit/Acetam 5/325 Tablet) 1 tab PO BID PRN PRN Reason: Pain, Severe (Pain Scale 7-10) Last Admin: 03/02/24 09:29 Dose: 1 tab Documented By: MILTON Albuterol Sulfate (Albuterol Sulfate 90 Mcg 8 Gm Inhaler) 2 puff INHALE Q6H PRN PRN Reason: wheezing Albuterol/Ipratropium (Albuterol/Iprat 2.5/0.5mg 3 Ml Ampul.Neb) 3 ml INHALE Q4H PRN PRN Reason: wheezing Calcium Carbonate (Calcium Carbonate 750 Mg Tab.Chew) 750 mg PO Q4H PRN PRN Reason: Heartburn Fluticasone Propionate (Fluticasone Propionate Nasal 16 Gm [place]) 2 spray NOSTRIL-B DAILY [facility] Last Admin: 03/02/24 09:10 Dose: Not Given Documented By: MILTON Non-Admin Reason: waiting for pharmacy to bring up medication Lactated Ringer's (Lr) 1,000 mls @ 80 mls/hr IVCONT .[id number] [facility] Last Admin: 03/02/24 12:51 Dose: 80 mls/hr Documented By: MILTON Magnesium Hydroxide (Milk Of Magnesia 30 Ml Oral.Susp) 30 ml PO DAILY PRN PRN Reason: Constipation Melatonin (Melatonin 3 Mg Tablet) 6 mg PO BEDTIME PRN PRN Reason: Insomnia Metoprolol Tartrate (Metoprolol Tartrate 50 Mg Tablet) 50 mg PO BID [facility]; Protocol Last Admin: 03/02/24 09:27 Dose: 50 mg Documented By: MILTON Ondansetron HCl (Ondansetron Hcl 4 Mg/2 Ml Vial) 4 mg IVPUSH Q8H PRN PRN Reason: Nausea and Vomiting Rivaroxaban (Rivaroxaban 20 Mg Tablet) 20 mg PO DAILY@1700 [facility] Last Admin: 03/01/24 18:27 Dose: 20 mg Documented By: CHRISTIANA Sodium Chloride (0.9 % Sodium Chloride Flush 3 Ml Syringe) 3 ml IVFLUSH QSHIFT [facility] Last Admin: 03/02/24 09:27 Dose: 3 ml Documented By: MILTON Vancomycin HCl (Vancomycin Hcl 125 Mg Capsule) 125 mg PO Q6H [facility] Last Admin: 03/02/24 12:51 Dose: 125 mg Documented By: MILTON Labs 03/02/24 06:49 03/02/24 06:49 Labs: Laboratory Results - last 24 hr 03/02/24 06:49 MCV 83.3 MCH 26.8 L MCHC 32.2 RDW 18.4 H Plt Count 246 MPV 9.5 Immature Gran % (Auto) 2.7 H Neut % (Auto) 74.1 H Lymph % (Auto) 12.2 L [place] % (Auto) 9.3 Eos % (Auto) 1.1 Baso % (Auto) 0.6 Lymph # (Auto) 0.8 L [place] # (Auto) 0.6 Eos # (Auto) 0.1 Baso # (Auto) 0.0 Abs Immat Gran (auto) 0.18 H Absolute Neuts (auto) 4.9 Absolute Nucleated RBC 0.000 Nucleated RBC % (auto) 0.0 Anion Gap 10 L Estim Creat Clear Calc 73.3 Estimated GFR > 60 Random Glucose 101 Calcium 7.7 L Microbiology Microbiology Results: Microbiology 02/28/24 17:50 Blood Culture - Preliminary Blood - Venous No growth after 48 hours. 02/28/24 18:15 Blood Culture - Preliminary Blood - Venous No growth after 48 hours. Assessment and Plan (1) Chronic atrial fibrillation: Status: Acute Plan This is a 71-year-old female with a PMH significant for?persistent AFib on Xarelto, CKD 3, AAA followed by [facility], COPD not on home O2, GERD, hx uterine cancer, HLD, HTN, chronic indwelling Cadet catheter d/t neurogenic bladder, and sick sinus syndrome with pacemaker in-situ who presents to the ED with weakness and shortness of breath. She reported recent nausea, vomiting and diarrhea which has improved. No bowel movement since yesterday. History of C diff and recent Bactrim prescription for UTI. Initially hypotensive and hypoxic on arrival which improved with IV fluids. No respiratory symptoms therefore hypoxia likely secondary to hypotension. Labs also consistent with MARCI secondary to dehydration and Bactrim use. Abdominopelvic CT with high-grade small-bowel obstruction, case discussed with Dr. Gonzalez who recommended admission and consultation tomorrow, unlikely to need surgery as she is not having nausea or vomiting. possible Sepsis due to c diff did meet SIRS criteria on admission with tachycardia and tachypnea, Tachycardia likely due to atrial fibrillation UA, CXR negative. No further diarrhea, C diff PCR +, toxin negative more suggestive of colonization, however given diarrhea on admission will complete course of treatment GI panel negative Leukocytosis resolved blood cultures negative to date SBO abdominal exam benign seen by general surgery no need for NGT or surgery at this time advance to regular diet d/c IVF AFib with RVR initially treated with IV lopressor, will transition back to po lopressor resume xarelto as renal function has returned to baseline and no surgical intervention is expected at this time acute hyperchloremic metabolic acidosis due to NS hyponatremia likely due to dehydration resolved with IVF left hip pain pt reports fall per previous notes, pt has chronic left hip pain and follows with ortho for the same xray showing 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, sclerosis, and fragmentation - seen by ortho, no acute fracture, will attempt to move up plan for outpatient hip replacement Outpatient follow-up with Orthopedic surgery partial weight bearing of left sie PT evaluation pending MARCI on CKD3 dehydration and Bactrim likely contributing factors resolved with IVF Acute Lactic acidosis likely secondary to MARCI, hypoperfusion and dehydration not severe sepsis resolved with IVF AAA followed by [facility] increased infrarenal abdominal aortic aneurysm seen by vascular surgery - no inpatient surgery indicated at this time, outpatient follow up recommended COPD unspecified no acute exacerbation continue home meds HLD hold meds, resume on discharge Neurogenic bladder chronic Cadet catheter in place UA negative Full code VTE prophylaxis: xarelto Patient with sepsis secondary possible C diff, sbo requiring ongoing admission for diet advancement, IV fluid, control of heart rate Quality Stroke Does the patient have a stroke diagnosis?: No VTE Prior VTE?: No VTE Risk Level:: Medical - moderate - high VTE Device Contraindication: N/A - Device Ordered VTE Drug Contraindication: Treatment Not Indicated
--- NOTE | 2024-03-02 14:28 | P.PNGS_ITS ---
Subjective Subjective Date of Service: 03/02/24 Interval history: Patient is hungry wants to eat solid food tolerating p.o. diet well with liquids having bowel no nausea or vomiting Physical Exam 2 Vital Signs: Vital Signs: Last Vital Signs Temp 97.4 F 03/02/24 11:57 Pulse 83 03/02/24 11:57 Resp 18 03/02/24 11:57 BP 117/86 03/02/24 11:57 Pulse Ox 99 03/02/24 11:57 O2 Del Method Room Air 03/02/24 11:57 Oxygen Flow Rate 4 02/28/24 16:06 BMI result Body Mass Index 28.6 Const: General: cooperative, healthy appearing, comfortable and no acute distress GI: Other: Abdomen is soft nontender Objective Data Active Medications Acetaminophen (Acetaminophen 325 Mg Tablet) 975 mg PO Q6H PRN PRN Reason: Pain, Mild 1-3,fever,headache Last Admin: 02/29/24 10:07 Dose: 975 mg Documented By: WAYNE Hydrocodone Bitart/Acetaminophen (Hydrocodone Bit/Acetam 5/325 Tablet) 1 tab PO BID PRN PRN Reason: Pain, Severe (Pain Scale 7-10) Last Admin: 03/02/24 09:29 Dose: 1 tab Documented By: MILTON Albuterol Sulfate (Albuterol Sulfate 90 Mcg 8 Gm Inhaler) 2 puff INHALE Q6H PRN PRN Reason: wheezing Albuterol/Ipratropium (Albuterol/Iprat 2.5/0.5mg 3 Ml Ampul.Neb) 3 ml INHALE Q4H PRN PRN Reason: wheezing Calcium Carbonate (Calcium Carbonate 750 Mg Tab.Chew) 750 mg PO Q4H PRN PRN Reason: Heartburn Fluticasone Propionate (Fluticasone Propionate Nasal 16 Gm [place]) 2 spray NOSTRIL-B DAILY [facility] Last Admin: 03/02/24 09:10 Dose: Not Given Documented By: MILTON Non-Admin Reason: waiting for pharmacy to bring up medication Magnesium Hydroxide (Milk Of Magnesia 30 Ml Oral.Susp) 30 ml PO DAILY PRN PRN Reason: Constipation Melatonin (Melatonin 3 Mg Tablet) 6 mg PO BEDTIME PRN PRN Reason: Insomnia Metoprolol Tartrate (Metoprolol Tartrate 50 Mg Tablet) 50 mg PO BID [facility]; Protocol Last Admin: 03/02/24 09:27 Dose: 50 mg Documented By: MILTON Ondansetron HCl (Ondansetron Hcl 4 Mg/2 Ml Vial) 4 mg IVPUSH Q8H PRN PRN Reason: Nausea and Vomiting Rivaroxaban (Rivaroxaban 20 Mg Tablet) 20 mg PO DAILY@1700 [facility] Last Admin: 03/01/24 18:27 Dose: 20 mg Documented By: CHRISTIANA Sodium Chloride (0.9 % Sodium Chloride Flush 3 Ml Syringe) 3 ml IVFLUSH QSHIFT [facility] Last Admin: 03/02/24 09:27 Dose: 3 ml Documented By: MILTON Vancomycin HCl (Vancomycin Hcl 125 Mg Capsule) 125 mg PO Q6H [facility] Last Admin: 03/02/24 12:51 Dose: 125 mg Documented By: MILTON Labs 03/02/24 06:49 03/02/24 06:49 Labs: Laboratory Results - last 24 hr 03/02/24 06:49 MCV 83.3 MCH 26.8 L MCHC 32.2 RDW 18.4 H Plt Count 246 MPV 9.5 Immature Gran % (Auto) 2.7 H Neut % (Auto) 74.1 H Lymph % (Auto) 12.2 L [place] % (Auto) 9.3 Eos % (Auto) 1.1 Baso % (Auto) 0.6 Lymph # (Auto) 0.8 L [place] # (Auto) 0.6 Eos # (Auto) 0.1 Baso # (Auto) 0.0 Abs Immat Gran (auto) 0.18 H Absolute Neuts (auto) 4.9 Absolute Nucleated RBC 0.000 Nucleated RBC % (auto) 0.0 Anion Gap 10 L Estim Creat Clear Calc 73.3 Estimated GFR > 60 Random Glucose 101 Calcium 7.7 L Microbiology Microbiology Results: Microbiology 02/28/24 17:50 Blood Culture - Preliminary Blood - Venous No growth after 48 hours. 02/28/24 18:15 Blood Culture - Preliminary Blood - Venous No growth after 48 hours. Procedures Date of Service Date of Service: 03/02/24 Progress Note: A&P Assessment and plan (1) Small bowel obstruction: Status: Acute Assessment and Plan: 73-year-old female with partial small bowel obstruction seemingly improved tolerating clear liquids with bowel movements . Plan to continue advancing her diet with a tuna sandwich today and re-evaluate tomorrow. She understands and agrees with the above Time Spent With Patient Time: Total time managing care of this patient today ____ minutes. Quality Stroke Does the patient have a stroke diagnosis?: No VTE Prior VTE?: No VTE Risk Level:: Medical - moderate - high VTE Device Contraindication: N/A - Device Ordered VTE Drug Contraindication: Treatment Not Indicated
[2024-03-02] MEDS: Rivaroxaban 20 MG TABLET PO (15:51)
[2024-03-02] MEDS: Acetaminophen 325 MG TABLET 975 MG PO ×2 (15:56→22:36)
[2024-03-03] MEDS: Melatonin 3 MG TABLET 6 MG PO ×2 (00:55→19:52)
[2024-03-03] MEDS: HYDROcodone Bit/Acetam 5/325 TABLET 1 TAB PO ×3 (00:55→18:25)
[2024-03-03 03:54] VITALS: BP 177/89; PULSE 80; RESP 16; TEMP 36.2; O2SAT 97
[2024-03-03] MEDS: vancomycin HCL 125 MG CAPSULE PO ×4 (03:57→22:41)
[2024-03-03] MEDS: ondansetron HCL 4 MG/2 ML VIAL IVPUSH (06:32)
[2024-03-03 07:46] VITALS: PULSE 100; RESP 18; TEMP 36.5; O2SAT 96
[2024-03-03 08:23] LABS: Anion Gap 11 (12-20); Blood Urea Nitrogen 12 mg/dL (9-16); Calcium 7.9 mg/dL (8.4-10.2); Carbon Dioxide 18 mmol/L (22-29); Chloride 112 mmol/L (96-108); Creatinine Clr Calc Pharmacy 72.3; Estimated Glomerular Filt Rate > 60; Glucose Random 124 mg/dL (60-115); Potassium 3.8 mmol/L (3.3-5.1); Sodium 137 mmol/L (135-145)
[2024-03-03 08:43] VITALS: BP 162/94
[2024-03-03] MEDS: Metoprolol Tartrate 50 MG TABLET PO ×2 (08:43→19:53)
[2024-03-03] MEDS: 0.9 % Sodium Chloride Flush 3 ML SYRINGE IVFLUSH ×3 (08:49→19:53)
[2024-03-03 10:46] VITALS: BP 139/72; PULSE 94; RESP 18; TEMP 36.2; O2SAT 98
--- NOTE | 2024-03-03 12:11 | P.PNGS_ITS ---
Subjective Subjective Date of Service: 03/03/24 Interval history: Patient is feeling well no nausea no vomiting having bowel movements Physical Exam 2 Vital Signs: Vital Signs: Last Vital Signs Temp 97.1 F 03/03/24 10:46 Pulse 94 03/03/24 10:46 Resp 18 03/03/24 10:46 BP 139/72 03/03/24 10:46 Pulse Ox 98 03/03/24 10:46 O2 Del Method Room Air 03/03/24 10:46 Oxygen Flow Rate 4 02/28/24 16:06 BMI result Body Mass Index 28.6 GI: Other: Abdomen is soft and benign Objective Data Active Medications Acetaminophen (Acetaminophen 325 Mg Tablet) 975 mg PO Q6H PRN PRN Reason: Pain, Mild 1-3,fever,headache Last Admin: 03/02/24 22:36 Dose: 975 mg Documented By: CARLOS ALBERTO Hydrocodone Bitart/Acetaminophen (Hydrocodone Bit/Acetam 5/325 Tablet) 1 tab PO Q8H PRN PRN Reason: Pain, Severe (Pain Scale 7-10) Last Admin: 03/03/24 08:43 Dose: 1 tab Documented By: MILTON Albuterol Sulfate (Albuterol Sulfate 90 Mcg 8 Gm Inhaler) 2 puff INHALE Q6H PRN PRN Reason: wheezing Albuterol/Ipratropium (Albuterol/Iprat 2.5/0.5mg 3 Ml Ampul.Neb) 3 ml INHALE Q4H PRN PRN Reason: wheezing Calcium Carbonate (Calcium Carbonate 750 Mg Tab.Chew) 750 mg PO Q4H PRN PRN Reason: Heartburn Fluticasone Propionate (Fluticasone Propionate Nasal 16 Gm [place]) 2 spray NOSTRIL-B DAILY [facility] Last Admin: 03/03/24 08:49 Dose: Not Given Documented By: MILTON Non-Admin Reason: Patient Refused Magnesium Hydroxide (Milk Of Magnesia 30 Ml Oral.Susp) 30 ml PO DAILY PRN PRN Reason: Constipation Melatonin (Melatonin 3 Mg Tablet) 6 mg PO BEDTIME PRN PRN Reason: Insomnia Last Admin: 03/03/24 00:55 Dose: 6 mg Documented By: CARLOS ALBERTO Metoprolol Tartrate (Metoprolol Tartrate 50 Mg Tablet) 50 mg PO BID [facility]; Protocol Last Admin: 03/03/24 08:43 Dose: 50 mg Documented By: MILTON Ondansetron HCl (Ondansetron Hcl 4 Mg/2 Ml Vial) 4 mg IVPUSH Q8H PRN PRN Reason: Nausea and Vomiting Last Admin: 03/03/24 06:32 Dose: 4 mg Documented By: CARLOS ALBERTO Rivaroxaban (Rivaroxaban 20 Mg Tablet) 20 mg PO DAILY@1700 [facility] Last Admin: 03/02/24 15:51 Dose: 20 mg Documented By: MILTON Sodium Chloride (0.9 % Sodium Chloride Flush 3 Ml Syringe) 3 ml IVFLUSH QSHIFT [facility] Last Admin: 03/03/24 08:49 Dose: 3 ml Documented By: MILTON Vancomycin HCl (Vancomycin Hcl 125 Mg Capsule) 125 mg PO Q6H [facility] Last Admin: 03/03/24 03:57 Dose: 125 mg Documented By: CARLOS ALBERTO Labs 03/02/24 06:49 03/03/24 07:02 Labs: Laboratory Results - last 24 hr 03/03/24 07:02 Hold Purple Top SEE NOTE Anion Gap 11 L Estim Creat Clear Calc 72.3 Estimated GFR > 60 Random Glucose 124 H Calcium 7.9 L Procedures Date of Service Date of Service: 03/03/24 Progress Note: A&P Assessment and plan (1) Small bowel obstruction: Status: Acute Plan 73-year-old female with abdominal pain nausea and vomiting which have resolved now tolerating p.o. solids well and passing gas and having regular bowel movements improved. No obstruction noted at this point no need for any surgical intervention. Please reconsult as needed Time Spent With Patient Time: Total time managing care of this patient today ____ minutes. Quality Stroke Does the patient have a stroke diagnosis?: No VTE Prior VTE?: No VTE Risk Level:: Medical - moderate - high VTE Device Contraindication: N/A - Device Ordered VTE Drug Contraindication: Treatment Not Indicated
--- NOTE | 2024-03-03 12:32 | HO.PM.IMPN ---
Subjective Subjective Date of Service: 03/03/24 Interval History: seen and examined this morning follow up for afib rvr, sbo, MARCI overall abdominal pain improving reporting left hip pain no nausea or vomiting; has tolerated diet Review of Systems Review of Systems: Yes all other systems are reviewed and are negative Constitutional Constitutional: Denies chills and Denies fever(s) Cardiovascular Cardiovascular: Denies chest pain and Denies palpitations Endocrine Endocrine: Denies palpitations Physical Exam Vital Signs: Vital Signs: Last Vital Signs Temp 97.1 F 03/03/24 10:46 Pulse 94 03/03/24 10:46 Resp 18 03/03/24 10:46 BP 139/72 03/03/24 10:46 Pulse Ox 98 03/03/24 10:46 O2 Del Method Room Air 03/03/24 10:46 Oxygen Flow Rate 4 02/28/24 16:06 BMI result Body Mass Index 28.6 Const: General: alert, awake and Physically active Nutritional Appearance: average body habitus Orientation/consciousness: patient oriented x3 Resp: Effort & Inspection: normal respiratory effort, able to speak in complete sentences, no respiratory distress and no use of accessory muscles GI: Inspection: No distended Palpation (GI): Soft to palpation, nontender and no guarding Neuro: General: patient oriented x3, No moves all extremities and No CN's II-XI intact bilaterally Objective Data Active Medications Acetaminophen (Acetaminophen 325 Mg Tablet) 975 mg PO Q6H PRN PRN Reason: Pain, Mild 1-3,fever,headache Last Admin: 03/02/24 22:36 Dose: 975 mg Documented By: CAROLS ALBERTO Hydrocodone Bitart/Acetaminophen (Hydrocodone Bit/Acetam 5/325 Tablet) 1 tab PO Q8H PRN PRN Reason: Pain, Severe (Pain Scale 7-10) Last Admin: 03/03/24 08:43 Dose: 1 tab Documented By: MILTON Albuterol Sulfate (Albuterol Sulfate 90 Mcg 8 Gm Inhaler) 2 puff INHALE Q6H PRN PRN Reason: wheezing Albuterol/Ipratropium (Albuterol/Iprat 2.5/0.5mg 3 Ml Ampul.Neb) 3 ml INHALE Q4H PRN PRN Reason: wheezing Calcium Carbonate (Calcium Carbonate 750 Mg Tab.Chew) 750 mg PO Q4H PRN PRN Reason: Heartburn Fluticasone Propionate (Fluticasone Propionate Nasal 16 Gm [place]) 2 spray NOSTRIL-B DAILY [facility] Last Admin: 03/03/24 08:49 Dose: Not Given Documented By: MILTON Non-Admin Reason: Patient Refused Magnesium Hydroxide (Milk Of Magnesia 30 Ml Oral.Susp) 30 ml PO DAILY PRN PRN Reason: Constipation Melatonin (Melatonin 3 Mg Tablet) 6 mg PO BEDTIME PRN PRN Reason: Insomnia Last Admin: 03/03/24 00:55 Dose: 6 mg Documented By: CARLOS ALBERTO Metoprolol Tartrate (Metoprolol Tartrate 50 Mg Tablet) 50 mg PO BID [facility]; Protocol Last Admin: 03/03/24 08:43 Dose: 50 mg Documented By: MILTON Ondansetron HCl (Ondansetron Hcl 4 Mg/2 Ml Vial) 4 mg IVPUSH Q8H PRN PRN Reason: Nausea and Vomiting Last Admin: 03/03/24 06:32 Dose: 4 mg Documented By: CARLOS ALBERTO Rivaroxaban (Rivaroxaban 20 Mg Tablet) 20 mg PO DAILY@1700 [facility] Last Admin: 03/02/24 15:51 Dose: 20 mg Documented By: MILTON Sodium Chloride (0.9 % Sodium Chloride Flush 3 Ml Syringe) 3 ml IVFLUSH QSHIFT [facility] Last Admin: 03/03/24 08:49 Dose: 3 ml Documented By: MILTON Vancomycin HCl (Vancomycin Hcl 125 Mg Capsule) 125 mg PO Q6H [facility] Last Admin: 03/03/24 03:57 Dose: 125 mg Documented By: CARLOS ALBERTO Labs 03/02/24 06:49 03/03/24 07:02 Labs: Laboratory Results - last 24 hr 03/03/24 07:02 Hold Purple Top SEE NOTE Anion Gap 11 L Estim Creat Clear Calc 72.3 Estimated GFR > 60 Random Glucose 124 H Calcium 7.9 L Assessment and Plan (1) Chronic atrial fibrillation: Status: Acute (2) Small bowel obstruction: Status: Acute Plan This is a 71-year-old female with a PMH significant for?persistent AFib on Xarelto, CKD 3, AAA followed by [facility], COPD not on home O2, GERD, hx uterine cancer, HLD, HTN, chronic indwelling Cadet catheter d/t neurogenic bladder, and sick sinus syndrome with pacemaker in-situ who presents to the ED with weakness and shortness of breath. She reported recent nausea, vomiting and diarrhea which has improved. No bowel movement since yesterday. History of C diff and recent Bactrim prescription for UTI. Initially hypotensive and hypoxic on arrival which improved with IV fluids. No respiratory symptoms therefore hypoxia likely secondary to hypotension. Labs also consistent with MARCI secondary to dehydration and Bactrim use. Abdominopelvic CT with high-grade small-bowel obstruction, case discussed with Dr. Gonzalez who recommended admission and consultation tomorrow, unlikely to need surgery as she is not having nausea or vomiting. possible Sepsis due to c diff did meet SIRS criteria on admission with tachycardia and tachypnea, Tachycardia likely due to atrial fibrillation UA, CXR negative. No further diarrhea, C diff PCR +, toxin negative more suggestive of colonization, however given diarrhea on admission will complete 10 day course of treatment GI panel negative Leukocytosis resolved blood cultures negative to date pSBO mild intermittent pain, but abdominal exam benign. having stools general surgery following, no need for NGT or surgery at this time advance to regular diet AFib with RVR initially treated with IV lopressor, transitioned back to po lopressor resume xarelto as renal function has returned to baseline and no surgical intervention is expected at this time acute hyperchloremic metabolic acidosis due to NS improving hyponatremia likely due to dehydration resolved with IVF left hip pain pt reports fall per previous notes, pt has chronic left hip pain and follows with ortho for the same xray showing 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, sclerosis, and fragmentation - seen by ortho, no acute fracture, will attempt to move up plan for outpatient hip replacement Outpatient follow-up with Orthopedic surgery partial weight bearing of left side PT rec STR, patient agreable MARCI on CKD3 dehydration and Bactrim likely contributing factors resolved with IVF Acute Lactic acidosis likely secondary to MARCI, hypoperfusion and dehydration not severe sepsis resolved with IVF AAA followed by [facility] increased infrarenal abdominal aortic aneurysm seen by vascular surgery - no inpatient surgery indicated at this time, outpatient follow up recommended COPD unspecified no acute exacerbation continue home meds HLD resume statin Neurogenic bladder chronic Cadet catheter in place UA negative Full code VTE prophylaxis: xarelto Patient with sepsis secondary possible C diff, sbo requiring safe disposition Quality Stroke Does the patient have a stroke diagnosis?: No VTE Prior VTE?: No VTE Risk Level:: Medical - moderate - high VTE Device Contraindication: N/A - Device Ordered VTE Drug Contraindication: Treatment Not Indicated
--- NOTE | 2024-03-03 13:01 | MHC.CM.PN ---
PT is recommending STR, this CM met with pt to discuss going to STR, pt is agreeable and has no preferred facility. STR referrals placed, bed offers reviewed with pt and pt accepted a bed at [facility]. Insurance auth pending.
[2024-03-03] MEDS: Calcium Carbonate 750 MG TAB.CHEW PO ×2 (13:52→20:27)
--- NOTE | 2024-03-03 15:24 | PM.DS ---
DS: Providers Provider Date of Service: 03/11/24 <Kaye Oh NP - Last Filed: 03/11/24 15:23> Date of admission: 02/28/24 22:43 <ELPIDIO Payne - Last Filed: 03/03/24 15:34> Date of discharge: 03/11/24 <Kaye Oh NP - Last Filed: 03/11/24 15:23> Primary care physician: Raffy Orona MD <ELPIDIO Payne - Last Filed: 03/03/24 15:34> Consults: 02/28/24 23:49 Consult to General Surgery Routine Consulting Provider: [facility] Reason for consultation: ?SBO Has provider been notified: Yes Consult to Vascular Surgery Routine Consulting Provider: [facility] Reason for consultation: enlarging AAA Has provider been notified: Yes 02/29/24 12:30 Consult to Cardiology Routine Consulting Provider: [facility] Reason for consultation: afib rvr; sbo surgery preop Has provider been notified: No 03/01/24 13:06 Consult to Orthopedics Routine Consulting Provider: [facility] Sur[facility] Reason for consultation: left hip pain (acute on chronic); abnormal xray Has provider been notified: No <ELPIDIO Payne - Last Filed: 03/03/24 15:34> DS: Diagnosis Discharge Diagnosis (1) Small bowel obstruction: Status: Acute <ELPIDIO Payne - Last Filed: 03/03/24 15:34> DS: Summary Hospital Course Hospital Course: From H&P on the day of admission Pt is a 71-year-old female with a PMH significant for?persistent AFib on Xarelto, CKD 3, AAA followed by [facility], COPD not on home O2, GERD, hx uterine cancer, HLD, HTN, chronic indwelling Abdi catheter d/t neurogenic bladder, and sick sinus syndrome with pacemaker in-situ who presents to the ED with weakness and shortness of breath. She was found to be hypoxic at 84% on room air by EMS as well as hypotensive 94/54. She reports recent nausea, vomiting and diarrhea for the past 4 days (Sat-Tues) but was able to tolerate liquids and did not have any nausea or vomiting or diarrhea today. She also has mild suprapubic tenderness. She was recently treated for a UTI with Bactrim. She denies a headache, photosensitivity, sore throat, congestion, cough, chest pain, dysuria, hematuria or lower extremity edema. Hospital course by problem possible Sepsis due to c diff did meet SIRS criteria on admission with tachycardia and tachypnea, Tachycardia likely due to atrial fibrillation UA, CXR negative. No further diarrhea, C diff PCR +, toxin negative more suggestive of colonization, however given diarrhea on admission will complete course of treatment GI panel negative. Leukocytosis has resolved. blood cultures are negative to date pt required a rectal tube for a few days but was removed 03/08/24, much less stool at this time SBO abdominal exam benign. seen by general surgery no need for NGT or surgery at this time. advance to regular diet and having bowel movements. tolerating a regular diet. AFib with RVR initially treated with IV lopressor, will transition back to po lopressor once tolerating po intake. initally xarelto was placed on hold for marci and possible need for surgery. as renal function has returned to baseline and no surgical intervention is expected at this time xarelto was resumed. acute hyperchloremic metabolic acidosis. due to NS. improving left hip pain xray showing 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, sclerosis, and fragmentation - seen by ortho, chonic issue with no acute fracture, will attempt to move up plan for outpatient hip replacement Outpatient follow-up with Orthopedic surgery, partial weight bearing of left side. PT has recommended short term rehab. hyponatremia. likely due to dehydration. resolved with IVF MARCI on CKD3. dehydration and Bactrim likely contributing factors. resolved with IVF Acute Lactic acidosis. likely secondary to MARCI, hypoperfusion and dehydration not severe sepsis. resolved with IVF AAA. followed by [facility]. increased infrarenal abdominal aortic aneurysm on imaging. seen by vascular surgery - no inpatient surgery indicated at this time, outpatient follow up recommended <ELPIDIO Payne - Last Filed: 03/03/24 15:34> Time Attestation Discharge Coordination Time (in mins): 36 <ELPIDIO Payne - Last Filed: 03/03/24 15:34> Quality: Safe Use of Opioids Does Pt have an Active Cancer Diagnosis on the Problem List?: No <ELPIDIO Payne - Last Filed: 03/03/24 15:34> Quality: Stroke Does the patient have a stroke diagnosis?: No <ELPIDIO Payne - Last Filed: 03/03/24 15:34> Physical Exam Vital Signs: Vital Signs: Last Vital Signs Temp 97.1 F 03/03/24 10:46 Pulse 94 03/03/24 10:46 Resp 18 03/03/24 10:46 BP 139/72 03/03/24 10:46 Pulse Ox 98 03/03/24 10:46 O2 Del Method Room Air 03/03/24 10:46 Oxygen Flow Rate 4 02/28/24 16:06 BMI result Body Mass Index 28.6 <ELPIDIO Payne - Last Filed: 03/03/24 15:34> Appearing in no acute distress head is normocephalic atraumatic eyes pupils are PERRLA sclera is anicteric mouth throat mucous membranes are intact and moist neck is supple no lymphadenopathy, no JVD noted lung sounds are clear to auscultation heart regular rate rhythm, clear S1, S2 positive bowel sounds, abdomen is soft, nontender neuro patient is alert x3, no focal deficits <Kaye Oh NP - Last Filed: 03/11/24 15:23> DS: Data Data Completed and Pending Labs on day of discharge: Laboratory Results - last 24 hr 03/03/24 07:02 Hold Purple Top SEE NOTE Sodium 137 Potassium 3.8 Chloride 112 H Carbon Dioxide 18 L Anion Gap 11 L BUN 12 Creatinine 0.68 Estim Creat Clear Calc 72.3 Estimated GFR > 60 Random Glucose 124 H Calcium 7.9 L Preliminary micro results at discharge 02/28/24 17:50 Blood Culture - Preliminary Blood - Venous No growth after 48 hours. 02/28/24 18:15 Blood Culture - Preliminary Blood - Venous No growth after 48 hours. <ELPIDIO Payne - Last Filed: 03/03/24 15:34> Discharge Plan Discharge Anticipated Discharge Date/Time: 03/11/24 15:19 <ELPIDIO Payne - Last Filed: 03/03/24 15:34> Patient Disposition: Xfer SNF <ELPIDIO Payne - Last Filed: 03/03/24 15:34> Discharge Diagnosis: diarrhea/cdif pSBO afib rvr hyponatremia, MARCI on CKD3 <ELPIDIO Payne - Last Filed: 03/03/24 15:34> diarrhea/cdif pSBO afib rvr hyponatremia, MARCI on CKD3 <Kaye Oh NP - Last Filed: 03/11/24 15:23> Referrals: Raffy Orona MD [Primary Care Provider] - 1 Week Roger Oropeza MD [Physician] - 1 Week Fareed Crook MD [Physician] - 1 Week (o/p follow up ) <ELPIDIO Payne - Last Filed: 03/03/24 15:34> Discharge Medications: New hydrocodone-acetaminophen 5-325 mg Tablet 1 tab PO Q6H PRN (Reason: Pain, Severe (Pain Scale 7-10)) Qty: 20 0RF Rx Instructions: Partial Fill upon patient request. Continued colesevelam 625 mg tablet 1,250 mg PO BID Qty: 360 3RF ondansetron HCl 4 mg tablet 4 mg PO Q6H PRN (Reason: for nausea/vomiting) Qty: 60 2RF zinc sulfate 50 mg zinc (220 mg) capsule 50 mg PO DAILY Qty: 30 2RF simethicone [Anti-Gas Ultra Strength] 180 mg capsule 180 mg PO BID Qty: 60 1RF methenamine hippurate 1 gram tablet 1 g PO DAILY 90 Days Qty: 90 1RF ascorbic acid (vitamin C) 1,000 mg tablet 1 g PO DAILY 90 Days Qty: 90 1RF prochlorperazine maleate 5 mg tablet 5 mg PO Q12H PRN (Reason: for nausea/vomiting) Qty: 30 3RF estradiol [Vagifem] 10 mcg tablet 10 mcg vaginal 2XW 90 Days Qty: 26 1RF ipratropium-albuterol 0.5 mg-3 mg(2.5 mg base)/3 mL solution for nebulization 3 ml inhalation Q4H PRN (Reason: wheezing) albuterol sulfate 90 mcg/actuation HFA aerosol inhaler 2 puff inhalation Q6H PRN (Reason: wheezing) polyethylene glycol 3350 17 gram Powder In Packet 17 g PO DAILY PRN (Reason: Constipation) pantoprazole 40 mg Tablet,Delayed Release (Dr/Ec) 40 mg PO DAILY@0630 docusate sodium 100 mg Capsule 100 mg PO BID dicyclomine 10 mg Capsule 10 mg PO BID magnesium citrate 100 mg Capsule 200 mg PO BEDTIME Xarelto 20 mg tablet 20 mg PO DAILY@1700 metoprolol tartrate 50 mg tablet 50 mg PO BID folic acid 1 mg tablet 1 mg PO DAILY (DME) night bags See Rx Instructions .Route .MEDSUPPLY Qty: 1 11RF Rx Instructions: As directed- 1 catheter night bag per month (DME) catheter insertion kit See Rx Instructions .Route .MEDSUPPLY Qty: 2 11RF Rx Instructions: As directed- 2 kits per month ([facility] [place]) abdi catheters 18 georgian See Rx Instructions .Route .MEDSUPPLY Qty: 2 11RF Rx Instructions: As directed- 2 catheters per month ([facility] [place]) catheter irrigation kit See Rx Instructions .Route .MEDSUPPLY Qty: 2 11RF Rx Instructions: As directed- 2 kits per month (DME) sterile water See Rx Instructions .Route .MEDSUPPLY Qty: 1 11RF Rx Instructions: As directed for abdi catheter irrigation (DME) leg bags See Rx Instructions .Route .MEDSUPPLY Qty: 2 11RF Rx Instructions: 2 catheter leg bags per month simvastatin 40 mg tablet 40 mg PO BEDTIME escitalopram oxalate 10 mg tablet 10 mg PO DAILY cholecalciferol (vitamin D3) 25 mcg (1,000 unit) capsule 25 mcg PO DAILY calcium carbonate 260 mg calcium (650 mg) tablet,chewable 260 mg PO DAILY PRN (Reason: Dyspepsia) cyanocobalamin (vitamin B-12) 1,000 mcg tablet 1,000 mcg PO DAILY estradiol 0.01 % (0.1 mg/gram) cream 2 g vaginal 2XW fluticasone propionate 50 mcg/actuation spray,suspension 2 spray intranasal DAILY ferrous sulfate 325 mg (65 mg iron) tablet 325 mg PO Q48H Lactobacillus acidophilus 0.5 mg (100 million cell) tablet 0.5 mg PO DAILY Discontinued hydrocodone-acetaminophen 5-325 mg tablet 1 tab PO BID PRN (Reason: pain) <ELPIDIO Payne - Last Filed: 03/03/24 15:34> Discharge Orders: Discharge Order (Routine); Ordered 03/11/24 Ordered By: Kaye Oh <ELPIDIO Payne - Last Filed: 03/03/24 15:34> Diet: Advance to usual diet <ELPIDIO Payne - Last Filed: 03/03/24 15:34> Advance to usual diet <Kaye Oh NP - Last Filed: 03/11/24 15:23> Activity on Discharge: PWB on left <ELPIDIO Payne - Last Filed: 03/03/24 15:34> PWB on left <Kaye Oh NP - Last Filed: 03/11/24 15:23> Stand Alone Forms: Patient Portal Discharge page <ELPIDIO Payne - Last Filed: 03/03/24 15:34> Print Language: Croatian <ELPIDIO Payne - Last Filed: 03/03/24 15:34> Care Plan Goals: see below <ELPIDIO Payne - Last Filed: 03/03/24 15:34> Health Concerns: Atrial fibrillation with rapid ventricular response-heart rate control Partial small-bowel obstruction-resolved Hyponatremia, MARCI-resolved Acute on chronic left hip pain diarrhea/cdif <ELPIDIO Payne - Last Filed: 03/03/24 15:34> Plan of Treatment: complete course of oral vancomycin as prescribed call to schedule follow up appointment with Orthopedic surgery to schedule definitive treatment for left hip Call to schedule follow-up with vascular surgery at [facility] to follow AAA <ELPIDIO Payne - Last Filed: 03/03/24 15:34> Assessment: see discharge summary <ELPIDIO Payne - Last Filed: 03/03/24 15:34>
[2024-03-03 16:00] VITALS: BP 133/97; PULSE 92; RESP 18; TEMP 36.3; O2SAT 98
[2024-03-03] MEDS: Rivaroxaban 20 MG TABLET PO (18:26)
[2024-03-03] MEDS: Simethicone 80 MG TAB.CHEW 160 MG PO (19:53)
[2024-03-03 20:00] VITALS: BP 147/96; PULSE 105; RESP 18; TEMP 36.3; O2SAT 99
[2024-03-04] VITALS: BP 125/72; PULSE 78; RESP 16; TEMP 36.1; O2SAT 98
[2024-03-04 03:37] VITALS: BP 119/77; PULSE 88; RESP 14; TEMP 36.4; O2SAT 97
[2024-03-04] MEDS: Omeprazole 20 MG CAPSULE.DR PO (05:49)
[2024-03-04] MEDS: vancomycin HCL 125 MG CAPSULE PO ×4 (05:49→21:04)
[2024-03-04] MEDS: HYDROcodone Bit/Acetam 5/325 TABLET 1 TAB PO ×2 (05:51→17:18)
[2024-03-04 08:00] VITALS: BP 136/72; PULSE 99; RESP 16; TEMP 36.7; O2SAT 98
[2024-03-04] MEDS: Simethicone 80 MG TAB.CHEW 160 MG PO ×2 (08:33→21:04)
[2024-03-04] MEDS: Cholecalciferol (Vitamin D3) 25 MCG TABLET PO (08:34)
[2024-03-04] MEDS: Zinc Sulfate 220 MG CAPSULE 50 MG PO (08:34)
[2024-03-04] MEDS: Folic Acid 1 MG TABLET PO (08:34)
[2024-03-04] MEDS: Metoprolol Tartrate 50 MG TABLET PO ×2 (08:34→21:04)
[2024-03-04] MEDS: Escitalopram Oxalate 10 MG TABLET PO (08:34)
[2024-03-04] MEDS: Cyanocobalamin (Vitamin B-12) 1,000 MCG TABLET 1000 MCG PO (08:34)
[2024-03-04] MEDS: Ferrous Sulfate 324 MG TABLET.DR PO (08:34)
[2024-03-04] MEDS: 0.9 % Sodium Chloride Flush 3 ML SYRINGE IVFLUSH ×3 (08:35→21:05)
[2024-03-04] MEDS: Acetaminophen 325 MG TABLET 975 MG PO (11:23)
[2024-03-04 11:31] VITALS: BP 123/87; PULSE 98; RESP 18; TEMP 36.3; O2SAT 96
--- NOTE | 2024-03-04 11:36 | MHC.CM.PN ---
DOROTEO spoke with pt. and confirmed that she is accepting of going to [facility], at this time, waiting for ins. auth. Her dtr Danae asked me to call her, pt. did give me permission to call her. The dtr. would like her mom to get hip surgery while here, instead of going to rehab and having it later. DOROTEO referred to hospitalist, and requested she call dtr. about this.
--- NOTE | 2024-03-04 13:42 | P.PNIM_ITS ---
Subjective Subjective Date of Service: 03/04/24 Interval History: seen and examined this morning follow up for afib rvr, sbo, MARCI overall abdominal pain improving no nausea or vomiting; has tolerated diet Review of Systems Review of Systems: Yes all other systems are reviewed and are negative Constitutional Constitutional: Denies chills and Denies fever(s) Cardiovascular Cardiovascular: Denies chest pain and Denies palpitations Endocrine Endocrine: Denies palpitations Physical Exam 2 Vital Signs: Vital Signs: Last Vital Signs Temp 97.4 F 03/04/24 11:31 Pulse 98 03/04/24 11:31 Resp 18 03/04/24 11:31 BP 123/87 03/04/24 11:31 Pulse Ox 96 03/04/24 11:31 O2 Del Method Room Air 03/04/24 11:31 Oxygen Flow Rate 4 02/28/24 16:06 BMI result Body Mass Index 28.6 Appearing in no acute distress lung sounds are clear to auscultation heart regular rate rhythm, clear S1, S2 positive bowel sounds, abdomen is soft, nontender neuro patient is alert x3, no focal deficits Objective Data Active Medications Acetaminophen (Acetaminophen 325 Mg Tablet) 975 mg PO Q6H PRN PRN Reason: Pain, Mild 1-3,fever,headache Last Admin: 03/04/24 11:23 Dose: 975 mg Documented By: TRACI Hydrocodone Bitart/Acetaminophen (Hydrocodone Bit/Acetam 5/325 Tablet) 1 tab PO Q6H PRN PRN Reason: Pain, Severe (Pain Scale 7-10) Last Admin: 03/04/24 05:51 Dose: 1 tab Documented By: ALLA Albuterol Sulfate (Albuterol Sulfate 90 Mcg 8 Gm Inhaler) 2 puff INHALE Q6H PRN PRN Reason: wheezing Albuterol/Ipratropium (Albuterol/Iprat 2.5/0.5mg 3 Ml Ampul.Neb) 3 ml INHALE Q4H PRN PRN Reason: wheezing Calcium Carbonate (Calcium Carbonate 750 Mg Tab.Chew) 750 mg PO Q4H PRN PRN Reason: Heartburn Last Admin: 03/03/24 20:27 Dose: 750 mg Documented By: ALLA Cyanocobalamin (Cyanocobalamin (Vitamin B-12) 1,000 Mcg Tablet) 1,000 mcg PO DAILY [facility] Last Admin: 03/04/24 08:34 Dose: 1,000 mcg Documented By: TRACI Escitalopram Oxalate (Escitalopram Oxalate 10 Mg Tablet) 10 mg PO DAILY [facility] Last Admin: 03/04/24 08:34 Dose: 10 mg Documented By: TRACI Ferrous Sulfate (Ferrous Sulfate 324 Mg Tablet.) 324 mg PO Q48H [facility] Last Admin: 03/04/24 08:34 Dose: 324 mg Documented By: TRACI Fluticasone Propionate (Fluticasone Propionate Nasal 16 Gm Dunbar) 2 spray NOSTRIL-B DAILY [facility] Last Admin: 03/04/24 08:36 Dose: Not Given Documented By: TRACI Non-Admin Reason: Med Not Available Folic Acid (Folic Acid 1 Mg Tablet) 1 mg PO DAILY [facility] Last Admin: 03/04/24 08:34 Dose: 1 mg Documented By: TRACI Magnesium Hydroxide (Milk Of Magnesia 30 Ml Oral.Susp) 30 ml PO DAILY PRN PRN Reason: Constipation Melatonin (Melatonin 3 Mg Tablet) 6 mg PO BEDTIME PRN PRN Reason: Insomnia Last Admin: 03/03/24 19:52 Dose: 6 mg Documented By: ALLA Metoprolol Tartrate (Metoprolol Tartrate 50 Mg Tablet) 50 mg PO BID [facility]; Protocol Last Admin: 03/04/24 08:34 Dose: 50 mg Documented By: TRACI Omeprazole (Omeprazole 20 Mg Capsule.) 20 mg PO DAILY@0630 [facility] Last Admin: 03/04/24 05:49 Dose: 20 mg Documented By: ALLA Ondansetron HCl (Ondansetron Hcl 4 Mg/2 Ml Vial) 4 mg IVPUSH Q8H PRN PRN Reason: Nausea and Vomiting Last Admin: 03/03/24 06:32 Dose: 4 mg Documented By: CARLOS ALBERTO Rivaroxaban (Rivaroxaban 20 Mg Tablet) 20 mg PO DAILY@1700 [facility] Last Admin: 03/03/24 18:26 Dose: 20 mg Documented By: MILTON Simethicone (Simethicone 80 Mg Tab.Chew) 160 mg PO BID [facility] Last Admin: 03/04/24 08:33 Dose: 160 mg Documented By: HO.WILLIAC Sodium Chloride (0.9 % Sodium Chloride Flush 3 Ml Syringe) 3 ml IVFLUSH QSHIFT [facility] Last Admin: 03/04/24 08:35 Dose: 3 ml Documented By: TRACI Vancomycin HCl (Vancomycin Hcl 125 Mg Capsule) 125 mg PO Q6H [facility] Stop: 03/09/24 23:44 Last Admin: 03/04/24 11:23 Dose: 125 mg Documented By: TRACI Vitamin D (Cholecalciferol (Vitamin D3) 25 Mcg Tablet) 25 mcg PO DAILY [facility] Last Admin: 03/04/24 08:34 Dose: 25 mcg Documented By: TRACI Zinc Sulfate (Zinc Sulfate 220 Mg Capsule) 50 mg PO DAILY [facility] Last Admin: 03/04/24 08:34 Dose: 50 mg Documented By: TRACI Labs 03/02/24 06:49 03/03/24 07:02 Assessment and Plan (1) Chronic atrial fibrillation: Status: Acute (2) Small bowel obstruction: Status: Acute Plan 71-year-old female with a PMH significant for?persistent AFib on Xarelto, CKD 3, AAA followed by [facility], COPD not on home O2, GERD, hx uterine cancer, HLD, HTN, chronic indwelling Cadet catheter d/t neurogenic bladder, and sick sinus syndrome with pacemaker in-situ who presented to the ED with weakness and shortness of breath. She reported recent nausea, vomiting and diarrhea which had improved. No bowel movement since day before admission. History of C diff and recent Bactrim prescription for UTI. Initially hypotensive and hypoxic on arrival which improved with IV fluids. No respiratory symptoms therefore hypoxia likely secondary to hypotension. Labs also consistent with MARCI secondary to dehydration and Bactrim use. Abdominopelvic CT with high-grade small-bowel obstruction, case discussed with Dr. Gonzalez who recommended admission and consultation. Possible Sepsis due to c diff UA, CXR negative. No further diarrhea, C diff PCR +, toxin negative more suggestive of colonization, however given diarrhea on admission will complete 10 day course of treatment GI panel negative Leukocytosis resolved blood cultures negative to date pSBO mild intermittent pain, but abdominal exam benign. having stools general surgery following, no need for NGT or surgery at this time advance to regular diet AFib with RVR initially treated with IV lopressor, transitioned back to po lopressor resume xarelto as renal function has returned to baseline and no surgical intervention is expected at this time acute hyperchloremic metabolic acidosis due to NS improving hyponatremia likely due to dehydration resolved with IVF left hip pain pt reports fall per previous notes, pt has chronic left hip pain and follows with ortho for the same xray showing 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, sclerosis, and fragmentation - seen by ortho, no acute fracture, will attempt to move up plan for outpatient hip replacement Outpatient follow-up with Orthopedic surgery partial weight bearing of left side PT rec [facility], patient agreable MARCI on CKD3 dehydration and Bactrim likely contributing factors resolved with IVF Acute Lactic acidosis likely secondary to MARCI, hypoperfusion and dehydration not severe sepsis resolved with IVF AAA followed by [facility] increased infrarenal abdominal aortic aneurysm seen by vascular surgery - no inpatient surgery indicated at this time, outpatient follow up recommended COPD unspecified no acute exacerbation continue home meds HLD resume statin Neurogenic bladder chronic Cadet catheter in place UA negative Full code VTE prophylaxis: xarelto Patient with sepsis secondary possible C diff, sbo requiring safe disposition Attempted to call daughterDanae at [phone], no answer Quality Stroke Does the patient have a stroke diagnosis?: No VTE Prior VTE?: No VTE Risk Level:: Medical - moderate - high VTE Device Contraindication: N/A - Device Ordered VTE Drug Contraindication: Treatment Not Indicated
[2024-03-04 15:55] VITALS: BP 137/94; PULSE 102; RESP 16; TEMP 36.3; O2SAT 97
[2024-03-04] MEDS: Rivaroxaban 20 MG TABLET PO (16:36)
[2024-03-04] MEDS: Calcium Carbonate 750 MG TAB.CHEW PO (16:37)
[2024-03-04] MEDS: ondansetron HCL 4 MG/2 ML VIAL IVPUSH (17:19)
[2024-03-04 19:44] VITALS: BP 132/85; PULSE 99; RESP 16; TEMP 36.3; O2SAT 98
[2024-03-04] MEDS: Melatonin 3 MG TABLET 6 MG PO (21:04)
[2024-03-05] VITALS: BP 133/74; PULSE 101; RESP 16; TEMP 36.1; O2SAT 98
[2024-03-05] MEDS: HYDROcodone Bit/Acetam 5/325 TABLET 1 TAB PO ×3 (02:10→20:23)
[2024-03-05 03:50] VITALS: BP 148/92; PULSE 80; RESP 16; TEMP 36.4; O2SAT 98
[2024-03-05] MEDS: vancomycin HCL 125 MG CAPSULE PO ×4 (06:09→23:46)
[2024-03-05] MEDS: Omeprazole 20 MG CAPSULE.DR PO (06:09)
[2024-03-05 06:57] VITALS: BP 138/94; PULSE 81; RESP 18; TEMP 36.8; O2SAT 99
[2024-03-05] MEDS: Acetaminophen 325 MG TABLET 975 MG PO ×2 (09:30→17:36)
[2024-03-05] MEDS: Metoprolol Tartrate 50 MG TABLET PO ×2 (09:31→20:23)
[2024-03-05] MEDS: Zinc Sulfate 220 MG CAPSULE 50 MG PO (09:32)
[2024-03-05] MEDS: Folic Acid 1 MG TABLET PO (09:32)
[2024-03-05] MEDS: ondansetron HCL 4 MG/2 ML VIAL IVPUSH (09:32)
[2024-03-05] MEDS: Cholecalciferol (Vitamin D3) 25 MCG TABLET PO (09:32)
[2024-03-05] MEDS: Cyanocobalamin (Vitamin B-12) 1,000 MCG TABLET 1000 MCG PO (09:32)
[2024-03-05] MEDS: Escitalopram Oxalate 10 MG TABLET PO (09:32)
[2024-03-05] MEDS: 0.9 % Sodium Chloride Flush 3 ML SYRINGE IVFLUSH ×3 (09:32→20:24)
[2024-03-05] MEDS: Simethicone 80 MG TAB.CHEW 160 MG PO ×2 (09:32→20:22)
[2024-03-05 11:07] VITALS: BP 134/92; PULSE 99; RESP 18; TEMP 36.8; O2SAT 98
--- NOTE | 2024-03-05 11:17 | MHC.CM.PN ---
IMM 03/05/24 DELIVERED TO BEDSIDE, PER [facility] THEY ARE STILL AWAITING INSURANCE AUTH AND WILL REACH OUT TO PT'S [employer] MEDICARE PLAN, CM WILL CONT TO FOLLOW.
--- NOTE | 2024-03-05 15:03 | P.PNIM_ITS ---
Subjective Subjective Date of Service: 03/05/24 Interval History: seen and examined this morning follow up for afib rvr, sbo, MARCI overall abdominal pain improving no nausea or vomiting; has tolerated diet Review of Systems Review of Systems: Yes all other systems are reviewed and are negative Constitutional Constitutional: Denies chills and Denies fever(s) Cardiovascular Cardiovascular: Denies chest pain and Denies palpitations Endocrine Endocrine: Denies palpitations Physical Exam 2 Vital Signs: Vital Signs: Last Vital Signs Temp 98.2 F 03/05/24 11:07 Pulse 99 03/05/24 11:07 Resp 18 03/05/24 11:07 BP 134/92 H 03/05/24 11:07 Pulse Ox 98 03/05/24 11:07 O2 Del Method Room Air 03/05/24 11:07 Oxygen Flow Rate 4 02/28/24 16:06 BMI result Body Mass Index 28.6 Appearing in no acute distress lung sounds are clear to auscultation heart regular rate rhythm, clear S1, S2 positive bowel sounds, abdomen is soft, nontender neuro patient is alert x3, no focal deficits Objective Data Active Medications Acetaminophen (Acetaminophen 325 Mg Tablet) 975 mg PO Q6H PRN PRN Reason: Pain, Mild 1-3,fever,headache Last Admin: 03/05/24 09:30 Dose: 975 mg Documented By: RADHA Hydrocodone Bitart/Acetaminophen (Hydrocodone Bit/Acetam 5/325 Tablet) 1 tab PO Q6H PRN PRN Reason: Pain, Severe (Pain Scale 7-10) Last Admin: 03/05/24 11:06 Dose: 1 tab Documented By: RADHA Albuterol Sulfate (Albuterol Sulfate 90 Mcg 8 Gm Inhaler) 2 puff INHALE Q6H PRN PRN Reason: wheezing Albuterol/Ipratropium (Albuterol/Iprat 2.5/0.5mg 3 Ml Ampul.Neb) 3 ml INHALE Q4H PRN PRN Reason: wheezing Calcium Carbonate (Calcium Carbonate 750 Mg Tab.Chew) 750 mg PO Q4H PRN PRN Reason: Heartburn Last Admin: 03/04/24 16:37 Dose: 750 mg Documented By: RADHA Cyanocobalamin (Cyanocobalamin (Vitamin B-12) 1,000 Mcg Tablet) 1,000 mcg PO DAILY [facility] Last Admin: 03/05/24 09:32 Dose: 1,000 mcg Documented By: RADHA Escitalopram Oxalate (Escitalopram Oxalate 10 Mg Tablet) 10 mg PO DAILY [facility] Last Admin: 03/05/24 09:32 Dose: 10 mg Documented By: RADHA Ferrous Sulfate (Ferrous Sulfate 324 Mg Tablet.) 324 mg PO Q48H [facility] Last Admin: 03/04/24 08:34 Dose: 324 mg Documented By: TRACI Fluticasone Propionate (Fluticasone Propionate Nasal 16 Gm [place]) 2 spray NOSTRIL-B DAILY [facility] Last Admin: 03/05/24 09:41 Dose: Not Given Documented By: RADHA Non-Admin Reason: Patient Refused Folic Acid (Folic Acid 1 Mg Tablet) 1 mg PO DAILY [facility] Last Admin: 03/05/24 09:32 Dose: 1 mg Documented By: RADHA Magnesium Hydroxide (Milk Of Magnesia 30 Ml Oral.Susp) 30 ml PO DAILY PRN PRN Reason: Constipation Melatonin (Melatonin 3 Mg Tablet) 6 mg PO BEDTIME PRN PRN Reason: Insomnia Last Admin: 03/04/24 21:04 Dose: 6 mg Documented By: ALLA Metoprolol Tartrate (Metoprolol Tartrate 50 Mg Tablet) 50 mg PO BID [facility]; Protocol Last Admin: 03/05/24 09:31 Dose: 50 mg Documented By: RADHA Omeprazole (Omeprazole 20 Mg Capsule.) 20 mg PO DAILY@0630 [facility] Last Admin: 03/05/24 06:09 Dose: 20 mg Documented By: ALLA Ondansetron HCl (Ondansetron Hcl 4 Mg/2 Ml Vial) 4 mg IVPUSH Q8H PRN PRN Reason: Nausea and Vomiting Last Admin: 03/05/24 09:32 Dose: 4 mg Documented By: RADHA Rivaroxaban (Rivaroxaban 20 Mg Tablet) 20 mg PO DAILY@1700 [facility] Last Admin: 03/04/24 16:36 Dose: 20 mg Documented By: RADHA Simethicone (Simethicone 80 Mg Tab.Chew) 160 mg PO BID [facility] Last Admin: 03/05/24 09:32 Dose: 160 mg Documented By: RADHA Sodium Chloride (0.9 % Sodium Chloride Flush 3 Ml Syringe) 3 ml IVFLUSH QSHIFT [facility] Last Admin: 03/05/24 09:32 Dose: 3 ml Documented By: RADHA Vancomycin HCl (Vancomycin Hcl 125 Mg Capsule) 125 mg PO Q6H [facility] Stop: 03/09/24 23:44 Last Admin: 03/05/24 11:06 Dose: 125 mg Documented By: RADHA Vitamin D (Cholecalciferol (Vitamin D3) 25 Mcg Tablet) 25 mcg PO DAILY [facility] Last Admin: 03/05/24 09:32 Dose: 25 mcg Documented By: RADHA Zinc Sulfate (Zinc Sulfate 220 Mg Capsule) 50 mg PO DAILY [facility] Last Admin: 03/05/24 09:32 Dose: 50 mg Documented By: RADHA Labs 03/02/24 06:49 03/03/24 07:02 Microbiology Microbiology Results: Microbiology 02/28/24 17:50 Blood Culture - Final Blood - Venous No growth after 5 days. 02/28/24 18:15 Blood Culture - Final Blood - Venous No growth after 5 days. Assessment and Plan (1) Chronic atrial fibrillation: Status: Acute (2) Small bowel obstruction: Status: Acute Plan 71-year-old female with a PMH significant for?persistent AFib on Xarelto, CKD 3, AAA followed by [facility], COPD not on home O2, GERD, hx uterine cancer, HLD, HTN, chronic indwelling Cadet catheter d/t neurogenic bladder, and sick sinus syndrome with pacemaker in-situ who presented to the ED with weakness and shortness of breath. She reported recent nausea, vomiting and diarrhea which had improved. No bowel movement since day before admission. History of C diff and recent Bactrim prescription for UTI. Initially hypotensive and hypoxic on arrival which improved with IV fluids. No respiratory symptoms therefore hypoxia likely secondary to hypotension. Labs also consistent with MARCI secondary to dehydration and Bactrim use. Abdominopelvic CT with high-grade small-bowel obstruction, case discussed with Dr. Gonzalez who recommended admission and consultation. left hip pain pt reports fall per previous notes, pt has chronic left hip pain and follows with ortho for the same xray showing 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, sclerosis, and fragmentation - seen by ortho, no acute fracture, will attempt to move up plan for outpatient hip replacement Outpatient follow-up with Orthopedic surgery partial weight bearing of left side PT rec STR, patient agreable Possible Sepsis due to c diff UA, CXR negative. No further diarrhea, C diff PCR +, toxin negative more suggestive of colonization, however given diarrhea on admission will complete 10 day course of treatment GI panel negative Leukocytosis resolved blood cultures negative to date pSBO mild intermittent pain, but abdominal exam benign. having stools general surgery following, no need for NGT or surgery at this time advance to regular diet AFib with RVR initially treated with IV lopressor, transitioned back to po lopressor resume xarelto as renal function has returned to baseline and no surgical intervention is expected at this time acute hyperchloremic metabolic acidosis due to NS improving hyponatremia likely due to dehydration resolved with IVF MARCI on CKD3 dehydration and Bactrim likely contributing factors resolved with IVF Acute Lactic acidosis likely secondary to MARCI, hypoperfusion and dehydration not severe sepsis resolved with IVF AAA followed by [facility] increased infrarenal abdominal aortic aneurysm seen by vascular surgery - no inpatient surgery indicated at this time, outpatient follow up recommended COPD unspecified no acute exacerbation continue home meds HLD resume statin Neurogenic bladder chronic Cadet catheter in place UA negative Full code VTE prophylaxis: xarelto bowels MOM prn Spoke with daughter Franny and updated plan of care Quality Stroke Does the patient have a stroke diagnosis?: No VTE Prior VTE?: No VTE Risk Level:: Medical - moderate - high VTE Device Contraindication: N/A - Device Ordered VTE Drug Contraindication: Treatment Not Indicated
[2024-03-05 15:25] VITALS: BP 134/81; PULSE 80; RESP 18; TEMP 36.8; O2SAT 98
[2024-03-05] MEDS: Rivaroxaban 20 MG TABLET PO (17:37)
[2024-03-05 20:00] VITALS: BP 132/90; PULSE 95; RESP 18; TEMP 36.3; O2SAT 98
[2024-03-05] MEDS: Calcium Carbonate 750 MG TAB.CHEW PO (20:36)
[2024-03-06] VITALS (7 sets, daily range): BP systolic 106–136; BP diastolic 73–95; PULSE 63–97; RESP 17–20; TEMP 35.9–36.7; O2SAT 96–99
[2024-03-06] MEDS: Omeprazole 20 MG CAPSULE.DR PO (05:05)
[2024-03-06] MEDS: vancomycin HCL 125 MG CAPSULE PO ×4 (05:05→22:07)
[2024-03-06] MEDS: HYDROcodone Bit/Acetam 5/325 TABLET 1 TAB PO ×3 (05:10→19:57)
[2024-03-06] MEDS: Ferrous Sulfate 324 MG TABLET.DR PO (09:35)
[2024-03-06] MEDS: Folic Acid 1 MG TABLET PO (09:35)
[2024-03-06] MEDS: Metoprolol Tartrate 50 MG TABLET PO ×2 (09:35→19:57)
[2024-03-06] MEDS: Cyanocobalamin (Vitamin B-12) 1,000 MCG TABLET 1000 MCG PO (09:35)
[2024-03-06] MEDS: Cholecalciferol (Vitamin D3) 25 MCG TABLET PO (09:35)
[2024-03-06] MEDS: Escitalopram Oxalate 10 MG TABLET PO (09:35)
[2024-03-06] MEDS: Zinc Sulfate 220 MG CAPSULE 50 MG PO (09:35)
[2024-03-06] MEDS: 0.9 % Sodium Chloride Flush 3 ML SYRINGE IVFLUSH ×3 (09:37→22:09)
--- NOTE | 2024-03-06 14:39 | P.PNIM_ITS ---
Subjective Subjective Date of Service: 03/06/24 Interval History: seen and examined this morning follow up for afib rvr, sbo, MARCI overall abdominal pain improving no nausea or vomiting; has tolerated diet Review of Systems Review of Systems: Yes all other systems are reviewed and are negative Constitutional Constitutional: Denies chills and Denies fever(s) Cardiovascular Cardiovascular: Denies chest pain and Denies palpitations Endocrine Endocrine: Denies palpitations Physical Exam 2 Vital Signs: Vital Signs: Last Vital Signs Temp 97.0 F 03/06/24 11:17 Pulse 89 03/06/24 11:17 Resp 17 03/06/24 11:17 BP 114/79 03/06/24 11:17 Pulse Ox 98 03/06/24 11:17 O2 Del Method Room Air 03/06/24 11:17 Oxygen Flow Rate 4 02/28/24 16:06 BMI result Body Mass Index 28.6 Objective Data Active Medications Acetaminophen (Acetaminophen 325 Mg Tablet) 975 mg PO Q6H PRN PRN Reason: Pain, Mild 1-3,fever,headache Last Admin: 03/05/24 17:36 Dose: 975 mg Documented By: RADHA Hydrocodone Bitart/Acetaminophen (Hydrocodone Bit/Acetam 5/325 Tablet) 1 tab PO Q6H PRN PRN Reason: Pain, Severe (Pain Scale 7-10) Last Admin: 03/06/24 13:04 Dose: 1 tab Documented By: PAULY Albuterol Sulfate (Albuterol Sulfate 90 Mcg 8 Gm Inhaler) 2 puff INHALE Q6H PRN PRN Reason: wheezing Albuterol/Ipratropium (Albuterol/Iprat 2.5/0.5mg 3 Ml Ampul.Neb) 3 ml INHALE Q4H PRN PRN Reason: wheezing Calcium Carbonate (Calcium Carbonate 750 Mg Tab.Chew) 750 mg PO Q4H PRN PRN Reason: Heartburn Last Admin: 03/05/24 20:36 Dose: 750 mg Documented By: EDIE Cyanocobalamin (Cyanocobalamin (Vitamin B-12) 1,000 Mcg Tablet) 1,000 mcg PO DAILY [facility] Last Admin: 03/06/24 09:35 Dose: 1,000 mcg Documented By: PAULY Escitalopram Oxalate (Escitalopram Oxalate 10 Mg Tablet) 10 mg PO DAILY [facility] Last Admin: 03/06/24 09:35 Dose: 10 mg Documented By: PAULY Ferrous Sulfate (Ferrous Sulfate 324 Mg Tablet.) 324 mg PO Q48H [facility] Last Admin: 03/06/24 09:35 Dose: 324 mg Documented By: PAULY Fluticasone Propionate (Fluticasone Propionate Nasal 16 Gm [place]) 2 spray NOSTRIL-B DAILY [facility] Last Admin: 03/06/24 09:43 Dose: Not Given Documented By: PAULY Non-Admin Reason: Patient Refused Folic Acid (Folic Acid 1 Mg Tablet) 1 mg PO DAILY [facility] Last Admin: 03/06/24 09:35 Dose: 1 mg Documented By: PAULY Magnesium Hydroxide (Milk Of Magnesia 30 Ml Oral.Susp) 30 ml PO DAILY PRN PRN Reason: Constipation Melatonin (Melatonin 3 Mg Tablet) 6 mg PO BEDTIME PRN PRN Reason: Insomnia Last Admin: 03/04/24 21:04 Dose: 6 mg Documented By: ALLA Metoprolol Tartrate (Metoprolol Tartrate 50 Mg Tablet) 50 mg PO BID [facility]; Protocol Last Admin: 03/06/24 09:35 Dose: 50 mg Documented By: APULY Omeprazole (Omeprazole 20 Mg Capsule.) 20 mg PO DAILY@0630 [facility] Last Admin: 03/06/24 05:05 Dose: 20 mg Documented By: EDIE Ondansetron HCl (Ondansetron Hcl 4 Mg/2 Ml Vial) 4 mg IVPUSH Q8H PRN PRN Reason: Nausea and Vomiting Last Admin: 03/05/24 09:32 Dose: 4 mg Documented By: RADHA Rivaroxaban (Rivaroxaban 20 Mg Tablet) 20 mg PO DAILY@1700 [facility] Last Admin: 03/05/24 17:37 Dose: 20 mg Documented By: RADHA Simethicone (Simethicone 80 Mg Tab.Chew) 160 mg PO BID [facility] Last Admin: 03/06/24 09:35 Dose: Not Given Documented By: PAULY Non-Admin Reason: Patient Refused Sodium Chloride (0.9 % Sodium Chloride Flush 3 Ml Syringe) 3 ml IVFLUSH QSHIFT [facility] Last Admin: 03/06/24 09:37 Dose: 3 ml Documented By: PAULY Vancomycin HCl (Vancomycin Hcl 125 Mg Capsule) 125 mg PO Q6H [facility] Stop: 03/09/24 23:44 Last Admin: 03/06/24 11:15 Dose: 125 mg Documented By: PAULY Vitamin D (Cholecalciferol (Vitamin D3) 25 Mcg Tablet) 25 mcg PO DAILY [facility] Last Admin: 03/06/24 09:35 Dose: 25 mcg Documented By: PAULY Zinc Sulfate (Zinc Sulfate 220 Mg Capsule) 220 mg PO DAILY [facility] Labs 03/02/24 06:49 03/03/24 07:02 Assessment and Plan (1) Chronic atrial fibrillation: Status: Acute (2) Small bowel obstruction: Status: Acute Plan 71-year-old female with a PMH significant for?persistent AFib on Xarelto, CKD 3, AAA followed by [facility], COPD not on home O2, GERD, hx uterine cancer, HLD, HTN, chronic indwelling Cadet catheter d/t neurogenic bladder, and sick sinus syndrome with pacemaker in-situ who presented to the ED with weakness and shortness of breath. She reported recent nausea, vomiting and diarrhea which had improved. No bowel movement since day before admission. History of C diff and recent Bactrim prescription for UTI. Initially hypotensive and hypoxic on arrival which improved with IV fluids. No respiratory symptoms therefore hypoxia likely secondary to hypotension. Labs also consistent with MARCI secondary to dehydration and Bactrim use. Abdominopelvic CT with high-grade small-bowel obstruction, case discussed with Dr. Gonzalez who recommended admission and consultation. Left hip pain pt reports fall per previous notes, pt has chronic left hip pain and follows with ortho for the same xray showing 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, sclerosis, and fragmentation - seen by ortho, no acute fracture, will attempt to move up plan for outpatient hip replacement Outpatient follow-up with Orthopedic surgery partial weight bearing of left side PT rec STR, patient agreable Sepsis due to c diff. Sepsis resolved UA, CXR negative. No further diarrhea, C diff PCR +, toxin negative more suggestive of colonization, however given diarrhea on admission will complete 10 day course of treatment (03/09/24) GI panel negative Leukocytosis resolved blood cultures negative to date Partial SBO mild intermittent pain resolved, but abdominal exam benign. having stools general surgery following, no need for NGT or surgery advanced to regular diet AFib with RVR initially treated with IV lopressor, transitioned back to po lopressor resume xarelto as renal function has returned to baseline and no surgical intervention is expected at this time acute hyperchloremic metabolic acidosis. Resolved due to NS improving Hyponatremia. Resolved likely due to dehydration resolved with IVF MARCI on CKD3 dehydration and Bactrim likely contributing factors resolved with IVF Acute Lactic acidosis likely secondary to MARCI, hypoperfusion and dehydration not severe sepsis resolved with IVF AAA followed by [facility] increased infrarenal abdominal aortic aneurysm seen by vascular surgery - no inpatient surgery indicated at this time, outpatient follow up recommended COPD unspecified no acute exacerbation continue home meds HLD resume statin Neurogenic bladder chronic Cadet catheter in place UA negative Full code VTE prophylaxis: xarelto bowels MOM prn Spoke with daughter Franny and updated plan of care, plan for STR when bed available Quality Stroke Does the patient have a stroke diagnosis?: No VTE Prior VTE?: No VTE Risk Level:: Medical - moderate - high VTE Device Contraindication: N/A - Device Ordered VTE Drug Contraindication: Treatment Not Indicated
[2024-03-06] MEDS: Rivaroxaban 20 MG TABLET PO (16:44)
[2024-03-06 17:28] LABS: Anion Gap 9 (12-20); Blood Urea Nitrogen 15 mg/dL (9-16); Calcium 7.5 mg/dL (8.4-10.2); Carbon Dioxide 20 mmol/L (22-29); Chloride 113 mmol/L (96-108); Creatinine Clr Calc Pharmacy 75.6; Estimated Glomerular Filt Rate > 60; Glucose Random 111 mg/dL (60-115); Magnesium 1.6 mg/dL (1.6-2.6); Potassium 3.8 mmol/L (3.3-5.1); Sodium 138 mmol/L (135-145)
[2024-03-06] MEDS: Calcium Carbonate 750 MG TAB.CHEW PO (22:07)
[2024-03-07] VITALS (7 sets, daily range): BP systolic 95–145; BP diastolic 57–94; PULSE 77–98; RESP 16–19; TEMP 36.6–36.9; O2SAT 97–98
[2024-03-07] MEDS: HYDROcodone Bit/Acetam 5/325 TABLET 1 TAB PO ×3 (02:00→20:05)
[2024-03-07] MEDS: Omeprazole 20 MG CAPSULE.DR PO (05:05)
[2024-03-07] MEDS: vancomycin HCL 125 MG CAPSULE PO ×2 (05:05→10:35)
[2024-03-07] MEDS: Escitalopram Oxalate 10 MG TABLET PO (08:15)
[2024-03-07] MEDS: Cyanocobalamin (Vitamin B-12) 1,000 MCG TABLET 1000 MCG PO (08:15)
[2024-03-07] MEDS: Metoprolol Tartrate 50 MG TABLET PO ×2 (08:15→20:06)
[2024-03-07] MEDS: Cholecalciferol (Vitamin D3) 25 MCG TABLET PO (08:15)
[2024-03-07] MEDS: Folic Acid 1 MG TABLET PO (08:15)
[2024-03-07] MEDS: 0.9 % Sodium Chloride Flush 3 ML SYRINGE IVFLUSH ×3 (08:15→20:06)
[2024-03-07] MEDS: Zinc Sulfate 220 MG CAPSULE PO (08:15)
--- NOTE | 2024-03-07 14:40 | P.PNIM_ITS ---
Subjective Subjective Date of Service: 03/08/24 Interval History: Being followed for diarrhea, AFib RVR, small bowel obstruction/MARCI Noted to have diarrhea last night therefore rectal tube placed, has liquidy stool in rectal bag, complaining of lower abdominal pain, no nausea, no vomiting, tolerating diet, no fevers, no chills, no other acute events overnight. Review of Systems All other system reviewed and are negative. Physical Exam 2 Vital Signs: Vital Signs: Last Vital Signs Temp 97.8 F 03/07/24 11:35 Pulse 94 03/07/24 11:35 Resp 18 03/07/24 11:35 BP 140/94 H 03/07/24 11:35 Pulse Ox 98 03/07/24 11:35 O2 Del Method Room Air 03/07/24 11:35 Oxygen Flow Rate 4 02/28/24 16:06 BMI result Body Mass Index 28.6 Const: Other: General resting comfortably in no acute distress. Neck supple no JVD. CVS regular rate rhythm, Respiratory lungs clear to auscultation, no respiratory distress, no wheeze, no rhonchi. Gastrointestinal abdomen soft, bowel sounds audible, no guarding , no rigidity. Extremities no edema. Neuro non focal Skin no rash Rectal tube with liquidy stools. Objective Data Active Medications Acetaminophen (Acetaminophen 325 Mg Tablet) 975 mg PO Q6H PRN PRN Reason: Pain, Mild 1-3,fever,headache Last Admin: 03/05/24 17:36 Dose: 975 mg Documented By: RADHA Hydrocodone Bitart/Acetaminophen (Hydrocodone Bit/Acetam 5/325 Tablet) 1 tab PO Q6H PRN PRN Reason: Pain, Severe (Pain Scale 7-10) Last Admin: 03/07/24 08:18 Dose: 1 tab Documented By: MILTON Albuterol Sulfate (Albuterol Sulfate 90 Mcg 8 Gm Inhaler) 2 puff INHALE Q6H PRN PRN Reason: wheezing Albuterol/Ipratropium (Albuterol/Iprat 2.5/0.5mg 3 Ml Ampul.Neb) 3 ml INHALE Q4H PRN PRN Reason: wheezing Calcium Carbonate (Calcium Carbonate 750 Mg Tab.Chew) 750 mg PO Q4H PRN PRN Reason: Heartburn Last Admin: 03/06/24 22:07 Dose: 750 mg Documented By: EDIE Cyanocobalamin (Cyanocobalamin (Vitamin B-12) 1,000 Mcg Tablet) 1,000 mcg PO DAILY [facility] Last Admin: 03/07/24 08:15 Dose: 1,000 mcg Documented By: MILTON Escitalopram Oxalate (Escitalopram Oxalate 10 Mg Tablet) 10 mg PO DAILY [facility] Last Admin: 03/07/24 08:15 Dose: 10 mg Documented By: MILTON Ferrous Sulfate (Ferrous Sulfate 324 Mg Tablet.) 324 mg PO Q48H [facility] Last Admin: 03/06/24 09:35 Dose: 324 mg Documented By: PAULY Fluticasone Propionate (Fluticasone Propionate Nasal 16 Gm [place]) 2 spray NOSTRIL-B DAILY [facility] Last Admin: 03/07/24 08:21 Dose: Not Given Documented By: MILTON Non-Admin Reason: Patient Refused Folic Acid (Folic Acid 1 Mg Tablet) 1 mg PO DAILY [facility] Last Admin: 03/07/24 08:15 Dose: 1 mg Documented By: MILTON Magnesium Hydroxide (Milk Of Magnesia 30 Ml Oral.Susp) 30 ml PO DAILY PRN PRN Reason: Constipation Melatonin (Melatonin 3 Mg Tablet) 6 mg PO BEDTIME PRN PRN Reason: Insomnia Last Admin: 03/04/24 21:04 Dose: 6 mg Documented By: ALLA Metoprolol Tartrate (Metoprolol Tartrate 50 Mg Tablet) 50 mg PO BID [facility]; Protocol Last Admin: 03/07/24 08:15 Dose: 50 mg Documented By: MILTON Omeprazole (Omeprazole 20 Mg Capsule.) 20 mg PO DAILY@0630 [facility] Last Admin: 03/07/24 05:05 Dose: 20 mg Documented By: EDIE Ondansetron HCl (Ondansetron Hcl 4 Mg/2 Ml Vial) 4 mg IVPUSH Q8H PRN PRN Reason: Nausea and Vomiting Last Admin: 03/05/24 09:32 Dose: 4 mg Documented By: RADHA Rivaroxaban (Rivaroxaban 20 Mg Tablet) 20 mg PO DAILY@1700 [facility] Last Admin: 03/06/24 16:44 Dose: 20 mg Documented By: HO.RICCIAV Simethicone (Simethicone 80 Mg Tab.Chew) 160 mg PO BID [facility] Last Admin: 03/07/24 08:21 Dose: Not Given Documented By: MILTON Non-Admin Reason: Patient Refused Sodium Chloride (0.9 % Sodium Chloride Flush 3 Ml Syringe) 3 ml IVFLUSH QSHIFT [facility] Last Admin: 03/07/24 08:15 Dose: 3 ml Documented By: MILTON Vancomycin HCl (Vancomycin Hcl 125 Mg Capsule) 125 mg PO Q6H [facility] Stop: 03/09/24 23:44 Last Admin: 03/07/24 10:35 Dose: 125 mg Documented By: MILTON Vitamin D (Cholecalciferol (Vitamin D3) 25 Mcg Tablet) 25 mcg PO DAILY [facility] Last Admin: 03/07/24 08:15 Dose: 25 mcg Documented By: MILTON Zinc Sulfate (Zinc Sulfate 220 Mg Capsule) 220 mg PO DAILY [facility] Last Admin: 03/07/24 08:15 Dose: 220 mg Documented By: MILTON Labs 03/08/24 07:05 03/08/24 07:05 Labs: Laboratory Results - last 24 hr 03/06/24 16:49 Anion Gap 9 L Estim Creat Clear Calc 75.6 Estimated GFR > 60 Random Glucose 111 Calcium 7.5 L Magnesium 1.6 Assessment and Plan (1) Chronic atrial fibrillation: Status: Acute (2) Small bowel obstruction: Status: Acute (3) Infrarenal abdominal aortic aneurysm (AAA) without rupture: Status: Acute (4) Lactic acidemia: Status: Acute (5) Hyponatremia: Status: Acute (6) Acute kidney injury superimposed on CKD: Status: Acute Plan 71-year-old female with a PMH significant for?persistent AFib on Xarelto, CKD 3, AAA followed by [facility], COPD not on home O2, GERD, hx uterine cancer, HLD, HTN, chronic indwelling Cadet catheter d/t neurogenic bladder, and sick sinus syndrome with pacemaker in-situ who presented to the ED with weakness and shortness of breath. She reported recent nausea, vomiting and diarrhea which had improved. No bowel movement since day before admission. History of C diff and recent Bactrim prescription for UTI. Initially hypotensive and hypoxic on arrival which improved with IV fluids. No respiratory symptoms therefore hypoxia likely secondary to hypotension. Labs also consistent with MARCI secondary to dehydration and Bactrim use. Abdominopelvic CT with high-grade small-bowel obstruction, case discussed with Dr. Gonzalez who recommended admission and consultation. ch. 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 Sepsis resolved UA, CXR negative. C diff PCR +, toxin negative more suggestive of colonization, treated with vancomycin day 7 will DC further antibiotics Persistent diarrhea will DC simethicone and vanco, give IV fluids GI panel negative Leukocytosis resolved blood cultures negative to date Partial SBO mild intermittent pain , abdominal exam benign. having stools Seen by general surgery they recommend no surgical intervention, since tolerating diet and passing stool. AFib with RVR initially treated with IV lopressor, transitioned back to po lopressor, continue Xarelevelyn acute hyperchloremic metabolic acidosis. Improving acidosis likely due to diarrhea. Hyponatremia. improved with IV fluids,likely due to dehydration , follow BMP MARCI on CKD3 dehydration and Bactrim likely contributing factors, resolved with IVF Acute Lactic acidosis likely secondary to MARCI, hypoperfusion and dehydration not severe sepsis, resolved with IVF AAA followed by [facility] increased infrarenal abdominal aortic aneurysm seen by vascular surgery - no inpatient surgery indicated at this time, outpatient follow up recommended COPD unspecified no acute exacerbation continue home meds HLD resume statin Neurogenic bladder chronic Cadet catheter in place UA negative Full code VTE prophylaxis: flynn Spoke with daughter Franny and updated plan of care, plan for STR when clinically stable. Quality Stroke Does the patient have a stroke diagnosis?: No VTE Prior VTE?: No VTE Risk Level:: Medical - moderate - high VTE Device Contraindication: N/A - Device Ordered VTE Drug Contraindication: Treatment Not Indicated
[2024-03-07] MEDS: Rivaroxaban 20 MG TABLET PO (16:55)
[2024-03-07] MEDS: Lactated Ringers 1,000 ML 100 ML IVCONT (16:55)
[2024-03-07] MEDS: Calcium Carbonate 750 MG TAB.CHEW PO (20:50)
[2024-03-07] MEDS: Melatonin 3 MG TABLET 6 MG PO (21:51)
[2024-03-08] VITALS (8 sets, daily range): BP systolic 86–145; BP diastolic 58–96; PULSE 87–105; RESP 16–18; TEMP 36.2–36.9; O2SAT 97–99
[2024-03-08] MEDS: Omeprazole 20 MG CAPSULE.DR PO (06:28)
[2024-03-08] MEDS: HYDROcodone Bit/Acetam 5/325 TABLET 1 TAB PO ×3 (06:37→21:58)
[2024-03-08 07:23] LABS: Hematocrit 34.6 % (37.0-47.0); Mean Corpuscular HGB Conc 31.8 g/dl (31.0-35.0); Mean Corpuscular Hemoglobin 26.4 pg (27.0-33.0); Mean Platelet Volume 8.9 fL (9.4-12.3); NRBC Pct Auto 0.2 /100WBC (0.0-0.2); Platelet Count 258 X10*3/uL (160-400); Red Blood Count 4.17 X10*6/uL (4.20-5.50); Red Cell Distribution Width 18.4 % (11.0-16.0); White Blood Count 8.1 X10*3/uL (4.8-10.8)
[2024-03-08 07:54] LABS: Anion Gap 12 (12-20); Blood Urea Nitrogen 15 mg/dL (9-16); Calcium 8.5 mg/dL (8.4-10.2); Carbon Dioxide 18 mmol/L (22-29); Chloride 114 mmol/L (96-108); Creatinine Clr Calc Pharmacy 76.8; Estimated Glomerular Filt Rate > 60; Glucose Random 108 mg/dL (60-115); Potassium 3.7 mmol/L (3.3-5.1); Sodium 140 mmol/L (135-145)
[2024-03-08] MEDS: Metoprolol Tartrate 50 MG TABLET PO ×2 (08:23→23:59)
[2024-03-08] MEDS: Ferrous Sulfate 324 MG TABLET.DR PO (08:24)
[2024-03-08] MEDS: Folic Acid 1 MG TABLET PO (08:24)
[2024-03-08] MEDS: Cyanocobalamin (Vitamin B-12) 1,000 MCG TABLET 1000 MCG PO (08:24)
[2024-03-08] MEDS: Zinc Sulfate 220 MG CAPSULE PO (08:24)
[2024-03-08] MEDS: Escitalopram Oxalate 10 MG TABLET PO (08:24)
[2024-03-08] MEDS: Cholecalciferol (Vitamin D3) 25 MCG TABLET PO (08:24)
[2024-03-08] MEDS: 0.9 % Sodium Chloride Flush 3 ML SYRINGE IVFLUSH ×3 (08:25→20:53)
[2024-03-08] MEDS: ondansetron HCL 4 MG/2 ML VIAL IVPUSH (11:00)
[2024-03-08] MEDS: Dicyclomine HCl 10 MG CAPSULE PO (11:00)
[2024-03-08] MEDS: Loperamide HCl 2 MG CAPSULE 4 MG PO (13:38)
[2024-03-08] MEDS: Lactated Ringers 1,000 ML 100 ML IVCONT (13:38)
--- NOTE | 2024-03-08 14:31 | MHC.CM.PN ---
PER MD, PT NOT READY TO DC [facility] HAS AUTH FOR STR THEY HAVE BEEN UPDATED PT WILL NEED BLS TRANSPORT
--- NOTE | 2024-03-08 15:22 | P.PNIM_ITS ---
Subjective Subjective Date of Service: 03/08/24 Interval History: Complaining of lower abdominal pain with loose stools, no nausea, no vomiting, no abdominal pain tolerating diet, no nausea, no vomiting, no fevers, no chills. Review of Systems All other system reviewed and are negative. Physical Exam 2 Vital Signs: Vital Signs: Last Vital Signs Temp 97.9 F 03/08/24 11:28 Pulse 90 03/08/24 11:28 Resp 18 03/08/24 11:28 BP 145/96 H 03/08/24 11:28 Pulse Ox 99 03/08/24 11:28 O2 Del Method Room Air 03/08/24 11:28 Oxygen Flow Rate 4 02/28/24 16:06 BMI result Body Mass Index 28.6 Const: Other: General resting comfortably in no acute distress. Neck supple no JVD. CVS regular rate rhythm, Respiratory lungs clear to auscultation, no respiratory distress, no wheeze, no rhonchi. Gastrointestinal abdomen soft, bowel sounds audible, no lower abdominal tenderness to palpation, no guarding , no rigidity. Extremities no edema. Neuro non focal Skin no rash Liquidy yellow stools Objective Data Active Medications Acetaminophen (Acetaminophen 325 Mg Tablet) 975 mg PO Q6H PRN PRN Reason: Pain, Mild 1-3,fever,headache Last Admin: 03/05/24 17:36 Dose: 975 mg Documented By: RADHA Hydrocodone Bitart/Acetaminophen (Hydrocodone Bit/Acetam 5/325 Tablet) 1 tab PO Q6H PRN PRN Reason: Pain, Severe (Pain Scale 7-10) Last Admin: 03/08/24 13:09 Dose: 1 tab Documented By: JAYDE Albuterol Sulfate (Albuterol Sulfate 90 Mcg 8 Gm Inhaler) 2 puff INHALE Q6H PRN PRN Reason: wheezing Albuterol/Ipratropium (Albuterol/Iprat 2.5/0.5mg 3 Ml Ampul.Neb) 3 ml INHALE Q4H PRN PRN Reason: wheezing Calcium Carbonate (Calcium Carbonate 750 Mg Tab.Chew) 750 mg PO Q4H PRN PRN Reason: Heartburn Last Admin: 03/07/24 20:50 Dose: 750 mg Documented By: EDUAR Cyanocobalamin (Cyanocobalamin (Vitamin B-12) 1,000 Mcg Tablet) 1,000 mcg PO DAILY [facility] Last Admin: 03/08/24 08:24 Dose: 1,000 mcg Documented By: JAYDE Dicyclomine HCl (Dicyclomine Hcl 10 Mg Capsule) 10 mg PO BID [facility] Last Admin: 03/08/24 11:00 Dose: 10 mg Documented By: JAYDE Escitalopram Oxalate (Escitalopram Oxalate 10 Mg Tablet) 10 mg PO DAILY [facility] Last Admin: 03/08/24 08:24 Dose: 10 mg Documented By: JAYDE Ferrous Sulfate (Ferrous Sulfate 324 Mg Tablet.) 324 mg PO Q48H [facility] Last Admin: 03/08/24 08:24 Dose: 324 mg Documented By: JAYDE Fluticasone Propionate (Fluticasone Propionate Nasal 16 Gm [place]) 2 spray NOSTRIL-B DAILY [facility] Last Admin: 03/08/24 09:18 Dose: Not Given Documented By: JAYDE Non-Admin Reason: Patient Refused Folic Acid (Folic Acid 1 Mg Tablet) 1 mg PO DAILY [facility] Last Admin: 03/08/24 08:24 Dose: 1 mg Documented By: JAYDE Lactated Ringer's (Lr) 1,000 mls @ 100 mls/hr IVCONT .Q10H [facility] Stop: 03/08/24 23:29 Last Admin: 03/08/24 13:38 Dose: 100 mls/hr Documented By: JAYDE Melatonin (Melatonin 3 Mg Tablet) 6 mg PO BEDTIME PRN PRN Reason: Insomnia Last Admin: 03/07/24 21:51 Dose: 6 mg Documented By: EDUAR Metoprolol Tartrate (Metoprolol Tartrate 50 Mg Tablet) 50 mg PO BID [facility]; Protocol Last Admin: 03/08/24 08:23 Dose: 50 mg Documented By: JAYDE Omeprazole (Omeprazole 20 Mg Capsule.) 20 mg PO DAILY@0630 [facility] Last Admin: 03/08/24 06:28 Dose: 20 mg Documented By: WALTER Ondansetron HCl (Ondansetron Hcl 4 Mg/2 Ml Vial) 4 mg IVPUSH Q8H PRN PRN Reason: Nausea and Vomiting Last Admin: 03/08/24 11:00 Dose: 4 mg Documented By: JAYDE Rivaroxaban (Rivaroxaban 20 Mg Tablet) 20 mg PO DAILY@1700 [facility] Last Admin: 03/07/24 16:55 Dose: 20 mg Documented By: MILTON Sodium Chloride (0.9 % Sodium Chloride Flush 3 Ml Syringe) 3 ml IVFLUSH QSHIFT [facility] Last Admin: 03/08/24 11:03 Dose: 3 ml Documented By: JAYDE Vitamin D (Cholecalciferol (Vitamin D3) 25 Mcg Tablet) 25 mcg PO DAILY [facility] Last Admin: 03/08/24 08:24 Dose: 25 mcg Documented By: JAYDE Zinc Sulfate (Zinc Sulfate 220 Mg Capsule) 220 mg PO DAILY [facility] Last Admin: 03/08/24 08:24 Dose: 220 mg Documented By: JAYDE Labs 03/08/24 07:05 03/08/24 07:05 Labs: Laboratory Results - last 24 hr 03/08/24 07:05 MCV 83.0 MCH 26.4 L MCHC 31.8 RDW 18.4 H Plt Count 258 MPV 8.9 L Absolute Nucleated RBC 0.020 H Nucleated RBC % (auto) 0.2 Anion Gap 12 Estim Creat Clear Calc 76.8 Estimated GFR > 60 Random Glucose 108 Calcium 8.5 D Assessment and Plan (1) Chronic atrial fibrillation: Status: Acute (2) Infrarenal abdominal aortic aneurysm (AAA) without rupture: Status: Acute (3) Hyponatremia: Status: Acute (4) Acute kidney injury superimposed on CKD: Status: Acute (5) Sepsis: Status: Acute Plan 71-year-old female with a PMH significant for?persistent AFib on Xarelto, CKD 3, AAA followed by [facility], COPD not on home O2, GERD, hx uterine cancer, HLD, HTN, chronic indwelling Cadet catheter d/t neurogenic bladder, and sick sinus syndrome with pacemaker in-situ who presented to the ED with weakness and shortness of breath. She reported recent nausea, vomiting and diarrhea which had improved. No bowel movement since day before admission. History of C diff and recent Bactrim prescription for UTI. Initially hypotensive and hypoxic on arrival which improved with IV fluids. No respiratory symptoms therefore hypoxia likely secondary to hypotension. Labs also consistent with MARCI secondary to dehydration and Bactrim use. Abdominopelvic CT with high-grade small-bowel obstruction, case discussed with Dr. Gonzalez who recommended admission and consultation. ch. 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 Sepsis resolved UA, CXR negative. C diff PCR +, toxin negative more suggestive of colonization, treated with vancomycin day 7, antibiotic discontinued on March 07 Persistent diarrhea, give IV fluids, Imodium x1, simethicone and vanco discontinued, resume home dose of Bentyl GI panel negative Leukocytosis resolved blood cultures negative to date Change diet to low-fiber, lactose-free Partial SBO mild intermittent pain , abdominal exam benign, having loose stools likely postobstructive Seen by general surgery they recommend no surgical intervention, since tolerating diet and passing stool. AFib with RVR initially treated with IV lopressor, transitioned back to po lopressor, continue Xarelto acute hyperchloremic metabolic acidosis. Improving acidosis likely due to diarrhea will add soda bicarb . Hyponatremia. improved with IV fluids,likely due to dehydration , follow BMP MARCI on CKD3 dehydration and Bactrim likely contributing factors, resolved with IVF Acute Lactic acidosis likely secondary to MARCI, hypoperfusion and dehydration not severe sepsis, resolved with IVF AAA followed by [facility] increased infrarenal abdominal aortic aneurysm seen by vascular surgery - no inpatient surgery indicated at this time, outpatient follow up recommended COPD unspecified no acute exacerbation continue home meds HLD resume statin Neurogenic bladder chronic Cadet catheter in place UA negative Full code VTE prophylaxis: flynn Spoke with daughter Franny and updated plan of care, plan for STR when clinically stable. Quality Stroke Does the patient have a stroke diagnosis?: No VTE Prior VTE?: No VTE Risk Level:: Medical - moderate - high VTE Device Contraindication: N/A - Device Ordered VTE Drug Contraindication: Treatment Not Indicated
[2024-03-08] MEDS: Sodium Bicarbonate 650 MG TABLET PO ×2 (16:00→20:49)
[2024-03-08] MEDS: Rivaroxaban 20 MG TABLET PO (16:00)
[2024-03-08] MEDS: Albumin Human 25 % 100 ML IV ×2 (20:49→21:58)
[2024-03-08] MEDS: Calcium Carbonate 750 MG TAB.CHEW PO (20:49)
[2024-03-09] MEDS: Calcium Carbonate 750 MG TAB.CHEW PO (02:15)
[2024-03-09 03:31] VITALS: BP 132/83; PULSE 99; RESP 20; TEMP 36.4; O2SAT 98
[2024-03-09] MEDS: HYDROcodone Bit/Acetam 5/325 TABLET 1 TAB PO ×4 (04:13→23:14)
[2024-03-09] MEDS: Omeprazole 20 MG CAPSULE.DR PO (05:40)
[2024-03-09 07:22] LABS: Anion Gap 12 (12-20); Blood Urea Nitrogen 14 mg/dL (9-16); Calcium 8.5 mg/dL (8.4-10.2); Carbon Dioxide 19 mmol/L (22-29); Chloride 114 mmol/L (96-108); Creatinine Clr Calc Pharmacy 81.9; Estimated Glomerular Filt Rate > 60; Glucose Random 101 mg/dL (60-115); Potassium 3.4 mmol/L (3.3-5.1); Sodium 142 mmol/L (135-145)
[2024-03-09 08:54] VITALS: BP 119/76; PULSE 90; RESP 18; TEMP 37.1; O2SAT 97
[2024-03-09] MEDS: Metoprolol Tartrate 50 MG TABLET PO ×2 (08:58→19:59)
[2024-03-09] MEDS: Folic Acid 1 MG TABLET PO (08:58)
[2024-03-09] MEDS: Cholecalciferol (Vitamin D3) 25 MCG TABLET PO (08:58)
[2024-03-09] MEDS: Sodium Bicarbonate 650 MG TABLET PO ×2 (08:58→19:59)
[2024-03-09] MEDS: Escitalopram Oxalate 10 MG TABLET PO (08:58)
[2024-03-09] MEDS: Zinc Sulfate 220 MG CAPSULE PO (08:58)
[2024-03-09] MEDS: Acetaminophen 325 MG TABLET 975 MG PO (08:58)
[2024-03-09] MEDS: Cyanocobalamin (Vitamin B-12) 1,000 MCG TABLET 1000 MCG PO (08:58)
[2024-03-09] MEDS: 0.9 % Sodium Chloride Flush 3 ML SYRINGE IVFLUSH ×3 (08:59→20:06)
--- NOTE | 2024-03-09 10:06 | P.PNIM_ITS ---
Subjective Subjective Date of Service: 03/09/24 Interval History: Follow up diarrhea no pain or discomfort Review of Systems All other system reviewed and are negative. Physical Exam 2 Vital Signs: Vital Signs: Last Vital Signs Temp 98.8 F 03/09/24 08:54 Pulse 90 03/09/24 08:54 Resp 18 03/09/24 08:54 BP 119/76 03/09/24 08:54 Pulse Ox 97 03/09/24 08:54 O2 Del Method Room Air 03/09/24 08:54 Oxygen Flow Rate 4 02/28/24 16:06 BMI result Body Mass Index 28.6 Appearing in no acute distress lung sounds are clear to auscultation heart regular rate rhythm, clear S1, S2 positive bowel sounds, abdomen is soft, nontender neuro patient is alert x3, no focal deficits Objective Data Active Medications Acetaminophen (Acetaminophen 325 Mg Tablet) 975 mg PO Q6H PRN PRN Reason: Pain, Mild 1-3,fever,headache Last Admin: 03/09/24 08:58 Dose: 975 mg Documented By: MAURA Hydrocodone Bitart/Acetaminophen (Hydrocodone Bit/Acetam 5/325 Tablet) 1 tab PO Q6H PRN PRN Reason: Pain, Severe (Pain Scale 7-10) Last Admin: 03/09/24 04:13 Dose: 1 tab Documented By: MARTIR Albuterol Sulfate (Albuterol Sulfate 90 Mcg 8 Gm Inhaler) 2 puff INHALE Q6H PRN PRN Reason: wheezing Albuterol/Ipratropium (Albuterol/Iprat 2.5/0.5mg 3 Ml Ampul.Neb) 3 ml INHALE Q4H PRN PRN Reason: wheezing Calcium Carbonate (Calcium Carbonate 750 Mg Tab.Chew) 750 mg PO Q4H PRN PRN Reason: Heartburn Last Admin: 03/09/24 02:15 Dose: 750 mg Documented By: MARTIR Cyanocobalamin (Cyanocobalamin (Vitamin B-12) 1,000 Mcg Tablet) 1,000 mcg PO DAILY [facility] Last Admin: 03/09/24 08:58 Dose: 1,000 mcg Documented By: MAURA Escitalopram Oxalate (Escitalopram Oxalate 10 Mg Tablet) 10 mg PO DAILY [facility] Last Admin: 03/09/24 08:58 Dose: 10 mg Documented By: MAURA Ferrous Sulfate (Ferrous Sulfate 324 Mg Tablet.) 324 mg PO Q48H [facility] Last Admin: 03/08/24 08:24 Dose: 324 mg Documented By: JAYDE Fluticasone Propionate (Fluticasone Propionate Nasal 16 Gm [place]) 2 spray NOSTRIL-B DAILY [facility] Last Admin: 03/09/24 09:04 Dose: Not Given Documented By: MAURA Non-Admin Reason: Med Not Available Folic Acid (Folic Acid 1 Mg Tablet) 1 mg PO DAILY [facility] Last Admin: 03/09/24 08:58 Dose: 1 mg Documented By: MAURA Melatonin (Melatonin 3 Mg Tablet) 6 mg PO BEDTIME PRN PRN Reason: Insomnia Last Admin: 03/07/24 21:51 Dose: 6 mg Documented By: EDUAR Metoprolol Tartrate (Metoprolol Tartrate 50 Mg Tablet) 50 mg PO BID [facility]; Protocol Last Admin: 03/09/24 08:58 Dose: 50 mg Documented By: MAURA Omeprazole (Omeprazole 20 Mg Capsule.) 20 mg PO DAILY@0630 [facility] Last Admin: 03/09/24 05:40 Dose: 20 mg Documented By: MARTIR Ondansetron HCl (Ondansetron Hcl 4 Mg/2 Ml Vial) 4 mg IVPUSH Q8H PRN PRN Reason: Nausea and Vomiting Last Admin: 03/08/24 11:00 Dose: 4 mg Documented By: JAYDE Rivaroxaban (Rivaroxaban 20 Mg Tablet) 20 mg PO DAILY@1700 [facility] Last Admin: 03/08/24 16:00 Dose: 20 mg Documented By: JAYDE Sodium Bicarbonate (Sodium Bicarbonate 650 Mg Tablet) 650 mg PO BID [facility] Stop: 03/10/24 15:29 Last Admin: 03/09/24 08:58 Dose: 650 mg Documented By: MAURA Sodium Chloride (0.9 % Sodium Chloride Flush 3 Ml Syringe) 3 ml IVFLUSH QSHIFT [facility] Last Admin: 03/09/24 08:59 Dose: 3 ml Documented By: MAURA Vitamin D (Cholecalciferol (Vitamin D3) 25 Mcg Tablet) 25 mcg PO DAILY [facility] Last Admin: 03/09/24 08:58 Dose: 25 mcg Documented By: MAURA Zinc Sulfate (Zinc Sulfate 220 Mg Capsule) 220 mg PO DAILY [facility] Last Admin: 03/09/24 08:58 Dose: 220 mg Documented By: MAURA Labs 03/08/24 07:05 03/09/24 06:38 Labs: Laboratory Results - last 24 hr 03/09/24 06:38 Anion Gap 12 Estim Creat Clear Calc 81.9 Estimated GFR > 60 Random Glucose 101 Calcium 8.5 Assessment and Plan (1) Chronic atrial fibrillation: Status: Acute (2) Infrarenal abdominal aortic aneurysm (AAA) without rupture: Status: Acute (3) Hyponatremia: Status: Acute (4) Acute kidney injury superimposed on CKD: Status: Acute (5) Sepsis: Status: Acute Plan 71-year-old female with a PMH significant for?persistent AFib on Xarelto, CKD 3, AAA followed by [facility], COPD not on home O2, GERD, hx uterine cancer, HLD, HTN, chronic indwelling Cadet catheter d/t neurogenic bladder, and sick sinus syndrome with pacemaker in-situ who presented to the ED with weakness and shortness of breath. She reported recent nausea, vomiting and diarrhea which had improved. No bowel movement since day before admission. History of C diff and recent Bactrim prescription for UTI. Initially hypotensive and hypoxic on arrival which improved with IV fluids. No respiratory symptoms therefore hypoxia likely secondary to hypotension. Labs also consistent with MARCI secondary to dehydration and Bactrim use. Abdominopelvic CT with high-grade small-bowel obstruction, case discussed with Dr. Gonzalez who recommended admission and consultation. Chronic Left hip pain per previous notes, pt has chronic left hip pain and follows with ortho for the same xray showing 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, sclerosis, and fragmentation - seen by ortho, no acute fracture, will attempt to move up plan for outpatient hip replacement Outpatient follow-up with Orthopedic surgery partial weight bearing of left side PT rec STR, patient agreable Sepsis due to c diff. Sepsis resolved UA, CXR negative. C diff PCR +, toxin negative more suggestive of colonization, treated with vancomycin (completed 03/07) Persistent diarrhea, give IV fluids, Imodium x1, simethicone and vanco discontinued, resume home dose of Bentyl GI panel negative Leukocytosis resolved blood cultures negative to date Change diet to low-fiber, lactose-free Partial SBO mild intermittent pain , abdominal exam benign, having loose stools likely postobstructive Seen by general surgery they recommend no surgical intervention, since tolerating diet and passing stool. AFib with RVR initially treated with IV lopressor, transitioned back to po lopressor, continue Xarelto Acute hyperchloremic metabolic acidosis. Improving acidosis likely due to diarrhea sodium bicarb . Hyponatremia. improved with IV fluids,likely due to dehydration , follow BMP MARCI on CKD3 dehydration and Bactrim likely contributing factors, resolved with IVF Acute Lactic acidosis likely secondary to MARCI, hypoperfusion and dehydration not severe sepsis resolved with IVF AAA followed by [facility] increased infrarenal abdominal aortic aneurysm seen by vascular surgery - no inpatient surgery indicated at this time, outpatient follow up recommended COPD unspecified no acute exacerbation continue home meds HLD resume statin Neurogenic bladder chronic Cadet catheter in place UA negative Full code VTE prophylaxis: flynn Spoke with daughter Franny and updated plan of care, plan for STR when clinically stable. Quality Stroke Does the patient have a stroke diagnosis?: No VTE Prior VTE?: No VTE Risk Level:: Medical - moderate - high VTE Device Contraindication: N/A - Device Ordered VTE Drug Contraindication: Treatment Not Indicated
--- NOTE | 2024-03-09 10:27 | PC.NURSE ---
on 02/28 at 1007 pt requested apap and was given as requested
[2024-03-09 12:22] VITALS: BP 124/74; PULSE 85; RESP 18; TEMP 36.5; O2SAT 99
[2024-03-09] MEDS: ondansetron HCL 4 MG/2 ML VIAL IVPUSH (12:31)
[2024-03-09 14:24] LABS: Adenovirus F 40/41 Not Detected (Not Detect.); Astrovirus Not Detected (Not Detect.); Campylobacter Not Detected (Not Detect.); Cryptosporidium Not Detected (Not Detect.); Cyclospora cayetanensis Not Detected (Not Detect.); E. coli EAEC Not Detected (Not Detect.); E. coli EPEC Not Detected (Not Detect.); E. coli ETEC Not Detected (Not Detect.); E. coli STEC Not Detected (Not Detect.); Entamoeba histolytica Not Detected (Not Detect.); Giardia lamblia Not Detected (Not Detect.); Norovirus GI/GII Not Detected (Not Detect.); Plesiomonas shigelloides Not Detected (Not Detect.); Rotavirus A Not Detected (Not Detect.); Salmonella Not Detected (Not Detect.); Sapovirus Not Detected (Not Detect.); Shigella sp./EIEC Not Detected (Not Detect.); Vibrio Not Detected (Not Detect.); Vibrio Cholerae Not Detected (Not Detect.); Yersinia enterocolitica Not Detected (Not Detect.)
[2024-03-09 16:00] VITALS: BP 119/76; PULSE 79; RESP 16; TEMP 36; O2SAT 95
[2024-03-09] MEDS: Rivaroxaban 20 MG TABLET PO (16:50)
[2024-03-09 19:48] VITALS: BP 125/73; PULSE 82; RESP 23; TEMP 36.4; O2SAT 97
[2024-03-09] MEDS: Melatonin 3 MG TABLET 6 MG PO (20:04)
[2024-03-09 23:17] VITALS: BP 103/68; PULSE 74; RESP 19; TEMP 36.1; O2SAT 99
[2024-03-10 03:25] VITALS: BP 112/77; PULSE 81; RESP 18; TEMP 36.4; O2SAT 98
[2024-03-10] MEDS: Omeprazole 20 MG CAPSULE.DR PO (05:53)
[2024-03-10] MEDS: HYDROcodone Bit/Acetam 5/325 TABLET 1 TAB PO ×3 (05:54→18:18)
[2024-03-10 07:39] VITALS: BP 127/81; PULSE 86; RESP 20; TEMP 36.4; O2SAT 98
[2024-03-10] MEDS: Metoprolol Tartrate 50 MG TABLET PO ×2 (07:57→20:09)
[2024-03-10] MEDS: Zinc Sulfate 220 MG CAPSULE PO (07:57)
[2024-03-10] MEDS: Folic Acid 1 MG TABLET PO (07:57)
[2024-03-10] MEDS: Cyanocobalamin (Vitamin B-12) 1,000 MCG TABLET 1000 MCG PO (07:57)
[2024-03-10] MEDS: Ferrous Sulfate 324 MG TABLET.DR PO (07:57)
[2024-03-10] MEDS: Escitalopram Oxalate 10 MG TABLET PO (07:57)
[2024-03-10] MEDS: 0.9 % Sodium Chloride Flush 3 ML SYRINGE IVFLUSH ×3 (07:57→20:09)
[2024-03-10] MEDS: Cholecalciferol (Vitamin D3) 25 MCG TABLET PO (07:57)
[2024-03-10] MEDS: Sodium Bicarbonate 650 MG TABLET PO (07:57)
--- NOTE | 2024-03-10 09:52 | HO.VASCPN ---
Subjective Subjective Date of Service: 03/10/24 Patient reports: no new complaints and feels better Interval history: Patient seen and examined. No significant events. Patient appears to be improving from sepsis from C diff. Overall appears to be doing significantly better since admission. Physical Exam Vital Signs: Vital Signs: Last Vital Signs Temp 97.5 F 03/10/24 07:39 Pulse 86 03/10/24 07:39 Resp 20 03/10/24 07:39 BP 127/81 03/10/24 07:39 Pulse Ox 98 03/10/24 07:39 O2 Del Method Room Air 03/10/24 07:39 Oxygen Flow Rate 4 02/28/24 16:06 BMI result Body Mass Index 28.6 Const: General: cooperative, healthy appearing and comfortable Orientation/consciousness: oriented to person, oriented to place and oriented to time HEENT: Head: Yes normal to inspection Neck: Neck: Yes normal visual inspection Carotids: no bruits Chest: Chest palpation & inspection: normal inspection of the chest Resp: Effort & Inspection: normal respiratory effort and able to speak in complete sentences Auscultation: clear to auscultation bilaterally, no crackles, no rales, no rhonchi and no wheezes Cardio: Rate: regular rate Rhythm: regular rhythm Heart sounds: S1 normal heart sound present and S2 normal heart sound present Bruits: no carotid bruits Peripheral pulses: Peripheral pulses 2+ throughout GI: Inspection: Yes normal to inspection Skin: Wounds: no wounds Hair: normal Neuro: General: oriented to person, oriented to place and oriented to time Cranial nerves: Yes CN's II-XII intact bilaterally and Yes Normal hearing present Cognition (Neuro): normal cognition Motor exam (neuro): 5/5 motor strength present throughout Extrem: Other: venous exam: No significant superficial varicosities or spider telangiectasias, minimal edema General: No clubbing, No cyanosis and No edema Psych: Appearance: grossly normal Mental Status: mental status grossly normal Speech and movement: Normal speech and movement present Progress Note: A&P Assessment and plan (1) Infrarenal abdominal aortic aneurysm (AAA) without rupture: Status: Acute Assessment and Plan: Stable abdominal aortic aneurysm. Will need to follow up with us as an outpatient for potential intervention/repair. Would like all other medical issues resolve prior to planning such surgery including the bowel obstruction and any signs of sepsis. Once again can follow up with us as an outpatient. Thank you for allowing us to assist in her care. If there are any questions or concerns please do not hesitate to contact us. Time Spent With Patient Time: Total time managing care of this patient today ____ minutes. Procedures Date of Service Date of Service: 03/10/24 Quality Stroke Does the patient have a stroke diagnosis?: No VTE Prior VTE?: No VTE Risk Level:: Medical - moderate - high VTE Device Contraindication: N/A - Device Ordered VTE Drug Contraindication: Treatment Not Indicated
[2024-03-10 11:31] VITALS: BP 104/72; PULSE 78; RESP 20; TEMP 36.6; O2SAT 99
--- NOTE | 2024-03-10 12:08 | P.PNIM_ITS ---
Subjective Subjective Date of Service: 03/10/24 Interval History: Follow up diarrhea no pain or discomfort Review of Systems All other system reviewed and are negative. Physical Exam 2 Vital Signs: Vital Signs: Last Vital Signs Temp 97.8 F 03/10/24 11:31 Pulse 78 03/10/24 11:31 Resp 20 03/10/24 11:31 BP 104/72 03/10/24 11:31 Pulse Ox 99 03/10/24 11:31 O2 Del Method Room Air 03/10/24 11:31 Oxygen Flow Rate 4 02/28/24 16:06 BMI result Body Mass Index 28.6 Appearing in no acute distress lung sounds are clear to auscultation heart regular rate rhythm, clear S1, S2 positive bowel sounds, abdomen is soft, nontender neuro patient is alert x3, no focal deficits Objective Data Active Medications Acetaminophen (Acetaminophen 325 Mg Tablet) 975 mg PO Q6H PRN PRN Reason: Pain, Mild 1-3,fever,headache Last Admin: 03/09/24 08:58 Dose: 975 mg Documented By: MAURA Hydrocodone Bitart/Acetaminophen (Hydrocodone Bit/Acetam 5/325 Tablet) 1 tab PO Q6H PRN PRN Reason: Pain, Severe (Pain Scale 7-10) Last Admin: 03/10/24 05:54 Dose: 1 tab Documented By: MARTIR Albuterol Sulfate (Albuterol Sulfate 90 Mcg 8 Gm Inhaler) 2 puff INHALE Q6H PRN PRN Reason: wheezing Albuterol/Ipratropium (Albuterol/Iprat 2.5/0.5mg 3 Ml Ampul.Neb) 3 ml INHALE Q4H PRN PRN Reason: wheezing Calcium Carbonate (Calcium Carbonate 750 Mg Tab.Chew) 750 mg PO Q4H PRN PRN Reason: Heartburn Last Admin: 03/09/24 02:15 Dose: 750 mg Documented By: MARTIR Cyanocobalamin (Cyanocobalamin (Vitamin B-12) 1,000 Mcg Tablet) 1,000 mcg PO DAILY [facility] Last Admin: 03/10/24 07:57 Dose: 1,000 mcg Documented By: MAURA Escitalopram Oxalate (Escitalopram Oxalate 10 Mg Tablet) 10 mg PO DAILY [facility] Last Admin: 03/10/24 07:57 Dose: 10 mg Documented By: MAURA Ferrous Sulfate (Ferrous Sulfate 324 Mg Tablet.) 324 mg PO Q48H [facility] Last Admin: 03/10/24 07:57 Dose: 324 mg Documented By: MAURA Fluticasone Propionate (Fluticasone Propionate Nasal 16 Gm [place]) 2 spray NOSTRIL-B DAILY [facility] Last Admin: 03/10/24 08:00 Dose: Not Given Documented By: MAURA Non-Admin Reason: Patient Refused Folic Acid (Folic Acid 1 Mg Tablet) 1 mg PO DAILY [facility] Last Admin: 03/10/24 07:57 Dose: 1 mg Documented By: MAURA Melatonin (Melatonin 3 Mg Tablet) 6 mg PO BEDTIME PRN PRN Reason: Insomnia Last Admin: 03/09/24 20:04 Dose: 6 mg Documented By: MARTIR Metoprolol Tartrate (Metoprolol Tartrate 50 Mg Tablet) 50 mg PO BID [facility]; Protocol Last Admin: 03/10/24 07:57 Dose: 50 mg Documented By: MAURA Omeprazole (Omeprazole 20 Mg Capsule.) 20 mg PO DAILY@0630 [facility] Last Admin: 03/10/24 05:53 Dose: 20 mg Documented By: MARTIR Ondansetron HCl (Ondansetron Hcl 4 Mg/2 Ml Vial) 4 mg IVPUSH Q8H PRN PRN Reason: Nausea and Vomiting Last Admin: 03/09/24 12:31 Dose: 4 mg Documented By: MAURA Rivaroxaban (Rivaroxaban 20 Mg Tablet) 20 mg PO DAILY@1700 [facility] Last Admin: 03/09/24 16:50 Dose: 20 mg Documented By: MAURA Sodium Bicarbonate (Sodium Bicarbonate 650 Mg Tablet) 650 mg PO BID [facility] Stop: 03/10/24 15:29 Last Admin: 03/10/24 07:57 Dose: 650 mg Documented By: MAURA Sodium Chloride (0.9 % Sodium Chloride Flush 3 Ml Syringe) 3 ml IVFLUSH QSHIFT [facility] Last Admin: 03/10/24 07:57 Dose: 3 ml Documented By: MAURA Vitamin D (Cholecalciferol (Vitamin D3) 25 Mcg Tablet) 25 mcg PO DAILY [facility] Last Admin: 03/10/24 07:57 Dose: 25 mcg Documented By: MAURA Zinc Sulfate (Zinc Sulfate 220 Mg Capsule) 220 mg PO DAILY [facility] Last Admin: 03/10/24 07:57 Dose: 220 mg Documented By: MAURA Labs 03/08/24 07:05 03/09/24 06:38 Labs: Laboratory Results - last 24 hr 03/09/24 Unknown Stl C. cayetanensis PCR Not Detected Stool Rotavirus A PCR Not Detected Stl Adenov F 40/41 PCR Not Detected Stool Astrovirus (PCR) Not Detected Stool Campylobacter PCR Not Detected Stool Cryptosporidium PCR Not Detected Stl Sh Tox Pr E STEC PCR Not Detected Stool E coli O157 PCR Not applicable Stl Enterotoxigenic E PCR Not Detected Stool EPEC (PCR) Not Detected Stool EAEC (PCR) Not Detected Stl E. histolytica PCR Not Detected Stool Giardia Lamblia PCR Not Detected Stl P. shigelloides PCR Not Detected Stool Salmonella PCR Not Detected Stool Sapovirus (PCR) Not Detected Stl Shigella/EIEC PCR Not Detected St Y.enterocolitica PCR Not Detected Stool Vibrio (PCR) Not Detected Stl Vibrio cholerae PCR Not Detected Stl Norovirus GI/GII PCR Not Detected Assessment and Plan (1) Chronic atrial fibrillation: Status: Acute (2) Infrarenal abdominal aortic aneurysm (AAA) without rupture: Status: Acute (3) Hyponatremia: Status: Acute (4) Acute kidney injury superimposed on CKD: Status: Acute (5) Sepsis: Status: Acute Plan 71-year-old female with a PMH significant for?persistent AFib on Xarelto, CKD 3, AAA followed by [facility], COPD not on home O2, GERD, hx uterine cancer, HLD, HTN, chronic indwelling Cadet catheter d/t neurogenic bladder, and sick sinus syndrome with pacemaker in-situ who presented to the ED with weakness and shortness of breath. She reported recent nausea, vomiting and diarrhea which had improved. No bowel movement since day before admission. History of C diff and recent Bactrim prescription for UTI. Initially hypotensive and hypoxic on arrival which improved with IV fluids. No respiratory symptoms therefore hypoxia likely secondary to hypotension. Labs also consistent with MARCI secondary to dehydration and Bactrim use. Abdominopelvic CT with high-grade small-bowel obstruction, case discussed with Dr. Gonzalez who recommended admission and consultation. 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 Sepsis resolved UA, CXR negative. C diff PCR +, toxin negative more suggestive of colonization, treated with vancomycin (completed 03/07) Persistent diarrhea, give IV fluids, Imodium x1, simethicone and vanco discontinued, resume home dose of Bentyl GI panel negative Leukocytosis resolved blood cultures negative to date Change diet to low-fiber, lactose-free Partial SBO mild intermittent pain , abdominal exam benign, having loose stools likely postobstructive Seen by general surgery they recommend no surgical intervention, since tolerating diet and passing stool. AFib with RVR initially treated with IV lopressor, transitioned back to po lopressor, continue Xarelto Acute hyperchloremic metabolic acidosis. Improving acidosis likely due to diarrhea sodium bicarb . Hyponatremia. improved with IV fluids,likely due to dehydration , follow BMP MACRI on CKD3 dehydration and Bactrim likely contributing factors, resolved with IVF Acute Lactic acidosis likely secondary to MARCI, hypoperfusion and dehydration not severe sepsis resolved with IVF AAA followed by [facility] increased infrarenal abdominal aortic aneurysm seen by vascular surgery - no inpatient surgery indicated at this time, outpatient follow up recommended COPD unspecified no acute exacerbation continue home meds HLD resume statin Neurogenic bladder chronic Cadet catheter in place UA negative Full code attending Dr. Correia VTE prophylaxis: flynn Spoke with daughter Franny and updated plan of care, plan for STR when clinically stable. Quality Stroke Does the patient have a stroke diagnosis?: No VTE Prior VTE?: No VTE Risk Level:: Medical - moderate - high VTE Device Contraindication: N/A - Device Ordered VTE Drug Contraindication: Treatment Not Indicated
[2024-03-10 16:00] VITALS: BP 107/80; PULSE 99; RESP 18; TEMP 36.2; O2SAT 99
[2024-03-10] MEDS: Rivaroxaban 20 MG TABLET PO (16:48)
[2024-03-10 20:00] VITALS: BP 120/76; PULSE 102; RESP 20; TEMP 36.8; O2SAT 99
[2024-03-10 20:09] VITALS: BP 108/71; PULSE 87
[2024-03-10] MEDS: Melatonin 3 MG TABLET 6 MG PO (20:09)
[2024-03-11] VITALS: BP 92/61; PULSE 79; RESP 16; TEMP 36.6; O2SAT 98
--- NOTE | 2024-03-11 01:37 | PC.NURSE ---
pt requested melatonin at start of shift. given with good affect.
[2024-03-11] MEDS: HYDROcodone Bit/Acetam 5/325 TABLET 1 TAB PO ×3 (01:38→15:59)
[2024-03-11 02:38] VITALS: RESP 17
[2024-03-11 04:00] VITALS: BP 100/75; PULSE 80; RESP 16; TEMP 36.3; O2SAT 99
[2024-03-11] MEDS: Omeprazole 20 MG CAPSULE.DR PO (05:39)
[2024-03-11 07:20] VITALS: BP 123/87; PULSE 80; RESP 18; TEMP 36.6; O2SAT 99
[2024-03-11 08:00] VITALS: BP 123/87; PULSE 78; RESP 18; TEMP 36.8; O2SAT 100
[2024-03-11] MEDS: Folic Acid 1 MG TABLET PO (08:58)
[2024-03-11] MEDS: 0.9 % Sodium Chloride Flush 3 ML SYRINGE IVFLUSH ×2 (08:58→16:00)
[2024-03-11] MEDS: Escitalopram Oxalate 10 MG TABLET PO (08:58)
[2024-03-11] MEDS: Metoprolol Tartrate 50 MG TABLET PO (08:58)
[2024-03-11] MEDS: Zinc Sulfate 220 MG CAPSULE PO (08:58)
[2024-03-11] MEDS: Cyanocobalamin (Vitamin B-12) 1,000 MCG TABLET 1000 MCG PO (08:58)
[2024-03-11] MEDS: Cholecalciferol (Vitamin D3) 25 MCG TABLET PO (08:58)
--- NOTE | 2024-03-11 11:49 | MHC.CM.PN ---
Addendum entered by Juliet Mcneill 03/11/24 16:22: [facility] HAS AUTH, PT IS BOOKED FOR 1630 HOURS PTS DAUGHTER, MARY BETH [phone], NOTIFIED OF DC PLAN/TIME AND IN AGREEMENT PT AWARE WELL Original Note: PER MD ROUNDS, PT IS MEDICALLY CLEARED FOR DC TO STR PT HAS ACCEPTED A BED OFFER FROM [facility] THE SNF HAS RESUBMITTED FOR INSURANCE AUTH
--- NOTE | 2024-03-11 12:01 | P.PNIM_ITS ---
Subjective Subjective Date of Service: 03/11/24 Interval History: Follow up diarrhea no diarrhea no pain or discomfort Review of Systems All other system reviewed and are negative. Physical Exam 2 Vital Signs: Vital Signs: Last Vital Signs Temp 98.2 F 03/11/24 08:00 Pulse 78 03/11/24 08:00 Resp 18 03/11/24 08:00 BP 123/87 03/11/24 08:00 Pulse Ox 100 03/11/24 08:00 O2 Del Method Room Air 03/11/24 08:00 Oxygen Flow Rate 4 02/28/24 16:06 BMI result Body Mass Index 28.6 Appearing in no acute distress lung sounds are clear to auscultation heart regular rate rhythm, clear S1, S2 positive bowel sounds, abdomen is soft, nontender neuro patient is alert x3, no focal deficits Objective Data Active Medications Acetaminophen (Acetaminophen 325 Mg Tablet) 975 mg PO Q6H PRN PRN Reason: Pain, Mild 1-3,fever,headache Last Admin: 03/09/24 08:58 Dose: 975 mg Documented By: MAURA Hydrocodone Bitart/Acetaminophen (Hydrocodone Bit/Acetam 5/325 Tablet) 1 tab PO Q6H PRN PRN Reason: Pain, Severe (Pain Scale 7-10) Last Admin: 03/11/24 08:58 Dose: 1 tab Documented By: RAJAN Albuterol Sulfate (Albuterol Sulfate 90 Mcg 8 Gm Inhaler) 2 puff INHALE Q6H PRN PRN Reason: wheezing Albuterol/Ipratropium (Albuterol/Iprat 2.5/0.5mg 3 Ml Ampul.Neb) 3 ml INHALE Q4H PRN PRN Reason: wheezing Calcium Carbonate (Calcium Carbonate 750 Mg Tab.Chew) 750 mg PO Q4H PRN PRN Reason: Heartburn Last Admin: 03/09/24 02:15 Dose: 750 mg Documented By: MARTIR Cyanocobalamin (Cyanocobalamin (Vitamin B-12) 1,000 Mcg Tablet) 1,000 mcg PO DAILY [facility] Last Admin: 03/11/24 08:58 Dose: 1,000 mcg Documented By: RAJAN Escitalopram Oxalate (Escitalopram Oxalate 10 Mg Tablet) 10 mg PO DAILY [facility] Last Admin: 03/11/24 08:58 Dose: 10 mg Documented By: RAJAN Ferrous Sulfate (Ferrous Sulfate 324 Mg Tablet.) 324 mg PO Q48H [facility] Last Admin: 03/10/24 07:57 Dose: 324 mg Documented By: MAURA Fluticasone Propionate (Fluticasone Propionate Nasal 16 Gm [place]) 2 spray NOSTRIL-B DAILY [facility] Last Admin: 03/11/24 08:59 Dose: Not Given Documented By: RAJAN Non-Admin Reason: Patient Refused Folic Acid (Folic Acid 1 Mg Tablet) 1 mg PO DAILY [facility] Last Admin: 03/11/24 08:58 Dose: 1 mg Documented By: RAJAN Melatonin (Melatonin 3 Mg Tablet) 6 mg PO BEDTIME PRN PRN Reason: Insomnia Last Admin: 03/10/24 20:09 Dose: 6 mg Documented By: RADHA Metoprolol Tartrate (Metoprolol Tartrate 50 Mg Tablet) 50 mg PO BID [facility]; Protocol Last Admin: 03/11/24 08:58 Dose: 50 mg Documented By: RAJAN Omeprazole (Omeprazole 20 Mg Capsule.) 20 mg PO DAILY@0630 [facility] Last Admin: 03/11/24 05:39 Dose: 20 mg Documented By: RADHA Ondansetron HCl (Ondansetron Hcl 4 Mg/2 Ml Vial) 4 mg IVPUSH Q8H PRN PRN Reason: Nausea and Vomiting Last Admin: 03/09/24 12:31 Dose: 4 mg Documented By: MAURA Rivaroxaban (Rivaroxaban 20 Mg Tablet) 20 mg PO DAILY@1700 [facility] Last Admin: 03/10/24 16:48 Dose: 20 mg Documented By: MAURA Sodium Chloride (0.9 % Sodium Chloride Flush 3 Ml Syringe) 3 ml IVFLUSH QSHIFT [facility] Last Admin: 03/11/24 08:58 Dose: 3 ml Documented By: RAJAN Vitamin D (Cholecalciferol (Vitamin D3) 25 Mcg Tablet) 25 mcg PO DAILY [facility] Last Admin: 03/11/24 08:58 Dose: 25 mcg Documented By: RAJAN Zinc Sulfate (Zinc Sulfate 220 Mg Capsule) 220 mg PO DAILY [facility] Last Admin: 03/11/24 08:58 Dose: 220 mg Documented By: RAJAN Labs 03/08/24 07:05 03/09/24 06:38 Assessment and Plan (1) Chronic atrial fibrillation: Status: Acute (2) Infrarenal abdominal aortic aneurysm (AAA) without rupture: Status: Acute (3) Hyponatremia: Status: Acute (4) Acute kidney injury superimposed on CKD: Status: Acute (5) Sepsis: Status: Acute Plan 71-year-old female with a PMH significant for?persistent AFib on Xarelto, CKD 3, AAA followed by [facility], COPD not on home O2, GERD, hx uterine cancer, HLD, HTN, chronic indwelling Cadet catheter d/t neurogenic bladder, and sick sinus syndrome with pacemaker in-situ who presented to the ED with weakness and shortness of breath. She reported recent nausea, vomiting and diarrhea which had improved. No bowel movement since day before admission. History of C diff and recent Bactrim prescription for UTI. Initially hypotensive and hypoxic on arrival which improved with IV fluids. No respiratory symptoms therefore hypoxia likely secondary to hypotension. Labs also consistent with MARCI secondary to dehydration and Bactrim use. Abdominopelvic CT with high-grade small-bowel obstruction, case discussed with Dr. Gonzalez who recommended admission and consultation. Chronic Left hip pain per previous notes, pt has chronic left hip pain and follows with ortho for the same xray showing 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, sclerosis, and fragmentation - seen by ortho, no acute fracture, Outpatient follow-up with Orthopedic surgery partial weight bearing of left side PT rec STR, patient agreable, still waiting on auth from STR Sepsis due to c diff. Sepsis resolved UA, CXR negative. C diff PCR +, toxin negative more suggestive of colonization, treated with vancomycin (completed 03/07) Persistent diarrhea, give IV fluids, Imodium x1, simethicone and vanco discontinued, resume home dose of Bentyl GI panel negative Leukocytosis resolved blood cultures negative to date Change diet to low-fiber, lactose-free Partial SBO mild intermittent pain , abdominal exam benign, having loose stools likely postobstructive Seen by general surgery they recommend no surgical intervention, since tolerating diet and passing stool. AFib with RVR initially treated with IV lopressor, transitioned back to po lopressor, continue Xarelto Acute hyperchloremic metabolic acidosis. Improving acidosis likely due to diarrhea sodium bicarb . Hyponatremia. improved with IV fluids,likely due to dehydration , follow BMP MARCI on CKD3 dehydration and Bactrim likely contributing factors, resolved with IVF Acute Lactic acidosis likely secondary to MARCI, hypoperfusion and dehydration not severe sepsis resolved with IVF AAA followed by [facility] increased infrarenal abdominal aortic aneurysm seen by vascular surgery - no inpatient surgery indicated at this time, outpatient follow up recommended COPD unspecified no acute exacerbation continue home meds HLD resume statin Neurogenic bladder chronic Cadet catheter in place UA negative Full code attending Dr. Pastrana VTE prophylaxis: flynn Spoke with daughter Franny and updated plan of care, plan for STR when bed available Quality Stroke Does the patient have a stroke diagnosis?: No VTE Prior VTE?: No VTE Risk Level:: Medical - moderate - high VTE Device Contraindication: N/A - Device Ordered VTE Drug Contraindication: Treatment Not Indicated
[2024-03-11 15:17] VITALS: BP 116/86; PULSE 74; RESP 18; TEMP 36.4; O2SAT 98
[2024-03-11] MEDS: Rivaroxaban 20 MG TABLET PO (15:57)
== END 2024-03-11 16:30 | disposition skilled nursing facility (03) | DRG 872 ==
LOC: HO.ED 22:08 → HO.EDOVER 02-29 00:11 → HO.IMC 02-29 15:33
PROVIDERS: Hospitalist; Internal Medicine; Physician Assistant Medical; Admitting Provider Physician Assistant; Emergency Provider Emergency Medicine Emergency Medical Services; PCP Internal Medicine; Visit Provider Nurse Practitioner Acute Care
DX: A41.4 Sepsis due to anaerobes (principal); A04.72 Enterocolitis due to Clostridium difficile, not specified as recurrent; E87.1 Hypo-osmolality and hyponatremia; I48.19 Other persistent atrial fibrillation; N17.9 Acute kidney failure, unspecified; M87.9 Osteonecrosis, unspecified; E87.21 Acute metabolic acidosis; K56.600 Partial intestinal obstruction, unspecified as to cause; I71.43 Infrarenal abdominal aortic aneurysm, without rupture; I49.5 Sick sinus syndrome; E86.0 Dehydration; J44.9 Chronic obstructive pulmonary disease, unspecified; I12.9 Hypertensive chronic kidney disease with stage 1 through stage 4 chronic kidney disease, or unspecified chronic kidney disease; N18.30 Chronic kidney disease, stage 3 unspecified; E78.5 Hyperlipidemia, unspecified; H54.8 Legal blindness, as defined in USA; R09.02 Hypoxemia; N31.9 Neuromuscular dysfunction of bladder, unspecified; Z96.0 Presence of urogenital implants; Z95.0 Presence of cardiac pacemaker; Z87.440 Personal history of urinary (tract) infections; Z79.01 Long term (current) use of anticoagulants; Z79.51 Long term (current) use of inhaled steroids; Z79.899 Other long term (current) drug therapy
CPT/HCPCS: 0241U; 36415; 70450; 71045; 72125; 73502; 74018; 74176; 80048; 80053; 81001; 83605; 83735; 85025; 85027; 87040; 87324; 87493; 87507; 93005; 93306; 97110; 97116; 97162; 97530; 99285; C1758; J0696; J1836; J2405; J7120; P9047; Q9957

== ENCOUNTER → 2024-02-28 16:15 | Outpatient (BNV) | payer MEDICARE, SELFPAY | PROVIDERS: Admitting Provider Physician Assistant; Emergency Provider Emergency Medicine Emergency Medical Services; PCP Internal Medicine; Visit Provider Internal Medicine Cardiovascular Disease | DX: I48.91 Unspecified atrial fibrillation (principal) | CPT/HCPCS: 93010 ==

== ENCOUNTER → 2024-02-28 16:23 | Outpatient (BNV) | payer MEDICARE, SELFPAY | PROVIDERS: Emergency Provider Emergency Medicine Emergency Medical Services; Visit Provider Radiology Diagnostic Radiology | DX: M54.2 Cervicalgia (principal); S09.90XA Unspecified injury of head, initial encounter; R05.9 Cough, unspecified | CPT/HCPCS: 70450; 71045; 72125; 74176 ==

== ENCOUNTER 2024-02-28 22:43 | Outpatient (BNV) | payer MEDICARE, SELFPAY | END 2024-02-29 13:00 | PROVIDERS: Admitting Provider Physician Assistant; Emergency Provider Emergency Medicine Emergency Medical Services; PCP Internal Medicine; Visit Provider Internal Medicine Cardiovascular Disease | DX: I42.2 Other hypertrophic cardiomyopathy (principal); I51.7 Cardiomegaly; I34.0 Nonrheumatic mitral (valve) insufficiency; I36.1 Nonrheumatic tricuspid (valve) insufficiency | CPT/HCPCS: 93306 ==

== ENCOUNTER 2024-02-28 22:43 | Outpatient (BNV) | payer MEDICARE, SELFPAY | END 2024-03-10 11:55 | PROVIDERS: Admitting Provider Physician Assistant; Emergency Provider Emergency Medicine Emergency Medical Services; PCP Internal Medicine; Visit Provider Radiology Diagnostic Radiology | DX: K56.609 Unspecified intestinal obstruction, unspecified as to partial versus complete obstruction (principal) | CPT/HCPCS: 74018 ==

== ENCOUNTER 2024-02-28 22:43 | Outpatient (BNV) | payer MEDICARE, SELFPAY | END 2024-02-29 13:05 | PROVIDERS: Admitting Provider Physician Assistant; Emergency Provider Emergency Medicine Emergency Medical Services; PCP Internal Medicine; Visit Provider Radiology Diagnostic Radiology | DX: M25.552 Pain in left hip (principal) | CPT/HCPCS: 73502 ==

== ENCOUNTER → 2024-02-28 22:43 | Outpatient (BNV) | payer MEDICARE, SELFPAY | PROVIDERS: Admitting Provider Physician Assistant; Emergency Provider Emergency Medicine Emergency Medical Services; PCP Internal Medicine; Visit Provider Physician Assistant Surgical | DX: I71.43 Infrarenal abdominal aortic aneurysm, without rupture (principal) | CPT/HCPCS: 99222; 99232 ==

== ENCOUNTER → 2024-02-28 22:43 | Outpatient (BNV) | payer MEDICARE, SELFPAY | PROVIDERS: Admitting Provider Physician Assistant; Emergency Provider Emergency Medicine Emergency Medical Services; PCP Internal Medicine; Visit Provider Physician Assistant Medical | DX: I48.20 Chronic atrial fibrillation, unspecified (principal); K56.609 Unspecified intestinal obstruction, unspecified as to partial versus complete obstruction | CPT/HCPCS: 99223; 99232; 99233 ==

== ENCOUNTER → 2024-02-28 22:43 | Outpatient (BNV) | payer MEDICARE, SELFPAY | PROVIDERS: Admitting Provider Physician Assistant; Emergency Provider Emergency Medicine Emergency Medical Services; PCP Internal Medicine; Visit Provider Surgery | DX: K56.609 Unspecified intestinal obstruction, unspecified as to partial versus complete obstruction (principal) | CPT/HCPCS: 99231; 99499 ==

== ENCOUNTER 2024-03-22 09:01 | Outpatient (AMB) | payer MEDICARE, SELFPAY ==
[2024-03-22 09:19] VITALS: BP 98/58; PULSE 132
--- NOTE | 2024-03-22 09:19 | MHC.OFFVIS ---
Vital Signs 03/22/24 09:19 Height 5 ft 4 in BP 98/58 L Blood Pressure Location Rt brachial Position Sitting Pulse 132 H Pulse Source Monitor Intake Visit Reasons: pre-op hip surgery Intake Note: pre-op vascular and ORTHo Supervisor Bonding Required: No Post Adoption Coordinator: Post Adoption Coordinator Present Allergies No Known Allergies [No Known Allergies*] Allergy (Verified 03/22/24 09:22) Medication List - Last Reconciled 03/22/24 by MARILY Vigil albuterol sulfate 90 mcg/actuation 2 puffs inhalation Q6H PRN ascorbic acid (vitamin C) 1 g PO DAILY 90 days calcium carbonate 260 mg PO DAILY PRN [catheter insertion kit As directed- 2 kits per month] [catheter irrigation kit As directed- 2 kits per month] cholecalciferol (vitamin D3) 25 mcg PO DAILY colesevelam 1,250 mg (2 x 625 mg) PO BID cyanocobalamin (vitamin B-12) 1,000 mcg PO DAILY dicyclomine 10 mg PO BID docusate sodium 100 mg PO BID escitalopram oxalate 10 mg PO DAILY estradiol 0.01%(0.1mg/gram) 2 grams vaginal 2XW estradiol (Vagifem) 10 mcg vaginal 2XW 90 days ferrous sulfate 325 mg PO Q48H [abdi catheters As directed- 2 catheters per month] folic acid 1 mg PO DAILY hydrocodone-acetaminophen 5-325 mg 1 tab PO Q6H PRN Lactobacillus acidophilus 0.5 mg PO DAILY [leg bags 2 catheter leg bags per month] magnesium citrate 200 mg PO BEDTIME methenamine hippurate 1 g PO DAILY 90 days metoprolol tartrate 50 mg PO BID [night bags As directed- 1 catheter night bag per month] ondansetron HCl 4 mg PO Q6H PRN pantoprazole 40 mg PO DAILY@0630 polyethylene glycol 3350 17 grams PO DAILY PRN prochlorperazine maleate 5 mg PO Q12H PRN rivaroxaban (Xarelto) 20 mg PO DAILY@1700 simethicone (Anti-Gas Ultra Strength) 180 mg PO BID simvastatin 40 mg PO BEDTIME [sterile water As directed for abdi catheter irrigation ] sulfamethoxazole-trimethoprim 800-160 mg tabs PO zinc sulfate 50 mg PO DAILY HPI HPI pre-op hip surgery: Details: Trupit is a 73-year-old female with past medical history of hypertension, GERD, COPD, sick sinus syndrome status post pacemaker placement, abdominal aortic aneurysm, chronic atrial fibrillation, on anticoagulation who was admitted to [facility] last month with weakness and dehydration and treated for C diff, small-bowel obstruction, AFib RVR. A abdominal CT scan did show an increase in her infrarenal abdominal aortic aneurysm at 5.1 cm, up from 4.2 cm on last study. She was also experiencing left hip pain and had a x-ray showing avascular necrosis with extensive degradation. Following discharge she was sent to a rehab facility and now presents for follow-up. Today she reports that she has been suffering cold symptoms for the last few days. She has some mild shortness of breath and intermittent cough at this visit. She is sitting in a wheelchair and tells me she walks very little. She is experiencing left hip discomfort with standing or ambulation. No chest discomfort at rest or with activity. She is not bothered by heart palpitations. No lightheadedness, presyncope, syncope, falls. She has been taking her medications as directed. No bleeding issues reported. Daughter is present. Patient states she did not take her morning medications yet today. She is still in the rehab in hopes to go home in a week's time. She is preop for abdominal aortic aneurysm surgery and left hip replacement surgery. [facility] Medical History Chronic atrial fibrillation Small bowel obstruction AAA (abdominal aortic aneurysm) Permanent atrial fibrillation Atrial fibrillation On beta mayra at home Legally blind Retention, urine Pneumonia Exercise hypoxemia GERD (gastroesophageal reflux disease) Hypertension Persistent atrial fibrillation COPD (chronic obstructive pulmonary disease) Dyspnea on exertion HTN (hypertension) Cardiac pacemaker in situ Sick sinus syndrome Surgical History History of endoscopy Hx of colonoscopy History of esophagogastroduodenoscopy (EGD) Hx of hysterectomy Hx of cardiac pacemaker History of radiofrequency ablation (RFA) for complex left atrial arrhythmia History of cardioversion Family History Father CHF (congestive heart failure) Cancer Pacemaker Mother Emphysema lung Social History Household Members: Spouse and Children Housing: House Are you a primary child care nurse to a significant other at home: No Do you presently have visiting nurse or other home services: Yes Unable to assess alcohol history related to: Unknown Alcohol intake: former Patient Tobacco Use Status: Former Tobacco user Advance Directives Date on File: 07/26/22 service: No Review of Systems Const All systems reviewed & are unremarkable except as noted in HPI and below ENT Denies dizziness Card Denies chest pain, Denies chest pain at rest, Denies chest pain with activity, Reports rapid heart rate, Denies pedal edema, Denies edema, Denies leg edema, Denies lightheadedness, Denies palpitations, Reports dyspnea (mild, intermittent cough), Denies dyspnea on exertion and Denies orthopnea Resp Denies cough, Reports dyspnea (mild, intermittent cough) and Denies dyspnea on exertion GI Denies hematochezia and Denies change in stool character Musc Details: hip pain Reports abnormal gait (weakness - hip pain), Reports limited range of motion, Denies muscle cramps, Reports muscle weakness, Denies numbness, Denies radiating pain into limb, Denies stiffness and Denies tingling Neuro Reports abnormal gait (weakness - hip pain), Denies dizziness, Denies numbness and Denies tingling Endo Denies palpitations Physical Exam Vital Signs: Last Vital Signs Pulse 132 H 03/22/24 09:19 BP 98/58 L 03/22/24 09:19 Const Other: sitting in wheelchair General: cooperative, healthy appearing, comfortable and no acute distress Orientation/consciousness: patient oriented x3 Neck Neck: Yes normal visual inspection Resp Effort & Inspection: normal respiratory effort (appears mildly labored but she denies it) Auscultation: clear to auscultation bilaterally (Dim in lower lobes), no crackles, no rales, no rhonchi and no wheezes Cardio Rate: tachycardic Rhythm: abnormal rhythm Heart sounds: S1 normal heart sound present, S2 normal heart sound present, no murmurs and no rubs Peripheral pulses: Peripheral pulses 2+ throughout Neuro General: patient oriented x3 Extrem General: Yes normal to inspection, No no pedal edema and No calf tenderness Psych Appearance: grossly normal Mental Status: mental status grossly normal Speech and movement: Normal speech and movement present Office Procedures Cardiac Device Check Cardiac Device Check Details: Emailage dual chamber PPM in place, Battery 4 months, VVIR mode due to chronic AF, low rate 60, RV thresold 1.25V at 0.4 ms, / VS 95.3% of time, MANAGER PROCESS EXCELLENCE 4.7% of time. [id number] Cardiac Device Check, pacemaker dual lead Procedure code (CPT) selection complete EKG Details: Today, read by me, Atrial fibrillation, RVR, rate 132, downsloping ST depressions inferiorly and V4-V6, QTc 447ms [id number], Complete Assessment & Plan Assessment & Plan (1) Persistent atrial fibrillation: Code(s): I48.19 - Other persistent atrial fibrillation Category: Medical Plan: History of persistent atrial fibrillation. She is on metoprolol for heart rate control and on Xarelto for anticoagulation. She was recently admitted for noncardiac issues including C diff, dehydration, small-bowel obstruction. She did require IV Lopressor for AFib RVR. Upon hospital discharge she was sent home with her usual metoprolol tartrate 50 mg b.i.d.. Today she reports that she has been experiencing some cold symptoms for the last few days. She did not take her morning medications at the rehab facility. EKG today shows atrial fibrillation with RVR, ST and T-wave abnormalities inferior lateral leads, rate 132. She does not feel heart palpitations. Blood pressure low at 90 8/58, recheck done by me 102/76. Have her continue metoprolol at current dose. Will add digoxin 0.125 mg every other day. Will plan for digoxin level in 1-2 weeks. Will plan to call rehab facility next week to see what heart rates are running. (2) Cardiac pacemaker in situ: Code(s): Z95.0 - Presence of cardiac pacemaker Category: Medical Plan: Medtronic dual-chamber pacemaker interrogation today shows device is functioning normally. She is in VVIR mode due to persistent atrial fibrillation. Battery is 4 months. She is not connected to remote monitor at this moment as she is in rehab facility. When she gets home she will resume home monitoring battery will be watch closely. (3) HTN (hypertension): Code(s): I10 - Essential (primary) hypertension Category: Medical Plan: Blood pressure on the low side today. Unable to further titrate metoprolol safely. Will be adding digoxin for heart rate control. Labs done 03/09/2024 showed creatinine 0.6. (4) Abnormal EKG: Code(s): R94.31 - Abnormal electrocardiogram [ECG] [EKG] Category: Medical Plan: EKG done today is showing atrial fibrillation with RVR, downsloping ST depressions inferior lateral leads. ST and T-wave abnormalities are not new for her however more pronounced on current EKG due to elevated heart rate. He denies having any chest discomfort. She does not have a known history of CAD. She does have cardiac risk factors including sedentary, hypertension, hyperlipidemia, age. She is preop for 2 upcoming surgeries. She is not able to achieve a 4 met workload. Echocardiogram done 02/29/2024 showed EF 60-65%, severely dilated left atrium, moderate to severe decrease in RV systolic function, mild MR. Will order a pharmacological nuclear stress test to evaluate for ischemia. Plan to call her with results once available. (5) Atrial fibrillation with RVR: Code(s): I48.91 - Unspecified atrial fibrillation Category: Medical Plan: Noted today (6) Preop cardiovascular exam: Code(s): Z01.810 - Encounter for preprocedural cardiovascular examination Category: Medical Plan: Preop for infrarenal abdominal aortic aneurysm repair also preop for left total hip replacement. She has known chronic atrial fibrillation, rate currently not well controlled. I am adding digoxin. Recent echo shows normal EF. Nuclear stress test has been ordered due to EKG changes suggesting ischemia. I will plan to update this note once test results are available. Plan Time spent on chart review, documentation, interview and assessment Orders: Orders Digoxin 2 Weeks I48.91 - Unspecified atrial fibrillation CA lexiscan stress w tony Today I48.19 - Other persistent atrial fibrillation, R94.31 - Abnormal electrocardiogram [ECG] [EKG], Z01.810 - Encounter for preprocedural cardiovascular examination NM cardiolite stress test Today I48.19 - Other persistent atrial fibrillation, R94.31 - Abnormal electrocardiogram [ECG] [EKG], Z01.810 - Encounter for preprocedural cardiovascular examination Medications: New digoxin 125 mcg PO .every other day 1 week 4 tabs 0RF digoxin 125 mcg PO .every other day 90 days 45 tabs 3RF Discontinued colesevelam Discontinued Reason: None 1,250 mg (2 x 625 mg) PO BID 360 tabs 3RF Coding Level of Care Code Est Pt Level 4 (02810) Complex EM visit Add On G2211 Diagnoses Persistent atrial fibrillation I48.19 Cardiac pacemaker in situ Z95.0 HTN (hypertension) I10 Abnormal EKG R94.31 Atrial fibrillation with RVR I48.91 Preop cardiovascular exam Z01.810 CPT Codes Cardiac Device Check - Cardiac Device 2: [id number]-[id number] Cardiac Device Check, pacemaker dual lead ([id number]) EKG - CPT: 54395-[id number], Complete ([id number]) Time Spent (min) 36
--- OUTSIDE RECORDS SUMMARY | 2024-03-22 09:25 | XMS_ITS | Encounter Summary ---
Author Organization [facility] Address [address] [place] [address] Phone Care Team Providers Care Visual Specialist Name Role Phone Nick Bonner MD Primary Care Provider [phone] Encounter Details Date Type Department Care Team (Late st Contact Info) Description 11/10/2021 Telephone [facility] [address] [place] [address] Inocente Martínez MD Social History Tobacco Use Types Packs/Day Years Used Date Smoking Tobacco: Former Smokeless Tobacco: Former Comments:Smoking History Inf o:Every day Comments Unknown Sex and Gender Information Value Date Recorded Sex Assigned at Not on file Legal Sex Female 4:55 PM EST Gender Identity Not on file Sexual Orientation Not on file documented as of this encounter Miscellaneous Notes * Telephone Encounter - Desire Clifford - 11/10/2021 11:25 AM EDT Pt Advised * Telephone Encounter - Karena Polanco - 11/10/2021 10:30 AM EDT Pt called, she'd like to get lab work done before her appt on 11/25/21. Please advise Thank you documented in this encounter Plan of Treatment Not on file documented as of this encounter Visit Diagnoses Not on filedocumented in this encounter Care Teams Visual Specialist Relationship Specialty Start Date End Date Nick Bonner MD [address] [place], [place] [address], [place] [address] PCP - General Internal Medicine 05/14/20 documented as of this encounter
--- OUTSIDE RECORDS SUMMARY | 2024-03-22 09:25 | XMS_ITS | Clinical Summary ---
Author Organization [facility] Address [address] [place] [address] Care Team Providers Care Plastic Tubing Insulation Supervisor Name Role Phone Elena Jacobo [employer] ROBOTICIST Primary Care Provider Allergies No known active allergies Medications Medication Sig Dispensed Refills Start Date End Date Status PANTOprazole (PROTONIX) 40 MG EC tablet Take 40 mg by mouth every morning before breakfast. Active sucralfate (CARAFATE) 1 g tablet Take 1 g by mouth 4 (four) times a day before meals and nightly. On an empty stomach. Active albuterol (PROVENTIL HFA; VENTOLIN HFA) 108 (90 Base) MCG/ACT inhaler Inhale 2 puffs 4 times daily (every 6 hours) as needed for wheezing. Active ascorbic acid (VITAMIN C) 500 MG tablet Take 500 mg by mouth daily. Active ferrous sulfate 324 (65 Fe) MG Tablet Delayed Response Take 324 mg by mouth 2 (two) times a day. Active folic acid (FOLVITE) 1 MG tablet Take 1 mg by mouth daily. Active simvastatin (ZOCOR) 40 MG tablet Take 40 mg by mouth nightly. Active HYDROcodone-acetamino phen (NORCO) 7.5-325 mg tablet Take 1 tablet by mouth 2 (two) times a day as needed for severe pain. Active mirtazapine (REMERON) 15 MG tablet Take 15 mg by mouth nightly. Active rivaroxaban (XARELTO) 20 MG tablet Take 20 mg by mouth every morning. Take with meals. Active metoPROLOL SUCCINATE (TOPROL-XL) 50 MG 24 hr tablet Take 50 mg by mouth 2 (two) times a day. Active Pancrelipase, Std-Fkgw-Ahpv, (Creon) 7128-6078 units Cap Particles Take 1 capsule by mouth 4 (four) times a day. Dose is in units of lipase. Active umeclidinium-vilanter ol (ANORO ELLIPTA) 62.5-25 MCG/INH inhaler Inhale 1 puff daily. Active Nutritional Supplements (ESTROVEN PO) Take 1 tablet by mouth every evening. Active diltiazem (CARDIZEM) 60 MG tabletIndications:Dys pnea,COPD exacerbation (HCC),Atrial fibrillation (HCC) Take 1 tablet (60 mg total) by mouth every 6 (six) hours around the clock. 120 tablet 12/22/2020 Active predniSONE (DELTASONE) 10 MG (48) tablet packIndications:Dyspn ea,COPD exacerbation (HCC),Atrial fibrillation (HCC) Take by mouth See Admin Instructions. Take 60mg (6 tabs) for 3 days, then 50mg (5tabs) for 3 days ,then 40mg (4 tabs) for 3 days then stop 48 tablet 12/22/2020 Active Active Problems Problem Noted Date Diagnosed Date GI bleed 12/11/2020 Hyperlipidemia 12/11/2020 AAA (abdominal aortic aneurysm) 12/11/2020 Stage 3a chronic kidney disease 12/11/2020 Small bowel obstruction 12/11/2020 Iron deficiency anemia 12/11/2020 A-fib GERD (gastroesophageal reflux disease) A-fib COPD (chronic obstructive pulmonary disease) Chronic back pain Chronic prescription opiate use Primary hypertension Resolved Problems Problem Noted Date Diagnosed Date Resolved Date Septic shock 12/11/2020 04/20/2023 Social History Tobacco Use Types Packs/Day Years Used Date Smoking Tobacco: Former Cigarettes Q uit: 2010 Smokeless Tobacco: Never Alcohol Use Standard Drinks/Week Comments Not Currently 0 (1 standard drink = 0.6 oz pur e alcohol) Sex and Gender Information Value Date Recorded Sex Assigned at Not on file Gender Identity Not on file Sexual Orientation Not on file Last Filed Vital Signs Vital Sign Reading Time Taken Comments Blood Pressure 103/67 12/22/2020 11:49 AM EST Pulse 84 12/22/2020 11:49 AM EST Temperature 36.7 ??C (98 ??F) 12/22/2020 8:45 AM EST Respiratory Rate 18 12/22/2020 8:45 AM EST Oxygen Saturation 95% 12/22/2020 12:42 PM EST Inhaled Oxygen Concentration - - Weight 78.7 kg (173 lb 8 oz) 12/22/2020 6:49 AM EST Height 160 cm (5' 3 ) 12/14/2020 7:00 PM EST Body Mass Index 30.73 12/14/2020 7:00 PM EST Plan of Treatment Health Maintenance Due Date Last Done Comments Hepatitis C Virus Screening 1950 DTaP/Tdap/Td Vaccines (1 - Tdap) 1968 Pneumococcal Vaccines 50+ (1 of 2 - PCV) 1968 Mammogram 1989 Colonoscopy 1994 Zoster (Shingles) Vaccine (1 of 2) 12/26/1999 RSV Vaccine 60 years and older and Patients (1 - Risk 60-74 years 1-dose series) 2009 DXA Bone Density (Females,Ages 65 and older) 2014 Influenza Vaccine 09/07/2023 11/26/2020 COVID-19 Vaccine ( season) 2023 04/06/2020, 03/06/2020 Chronic Controlled Substance User PDMP Review Discontinued 12/11/2020 Hepatitis B Vaccines Aged Out No long er eligible based on patient's age to complete this topic Medical Devices Implanted Type Area Dealer Compliance Representative Device Identifier Shelf Expiration Date Model / Serial / Lot Pacemaker Pacemaker Advance Directives * Full Code (Latest Code Status on File) Date Activated Date Inactivated Comments 12/11/2020 8:56 AM Care Teams Plastic Tubing Insulation Supervisor Relationship Specialty Start Date End Date Elena Jacobo NP [address] [place] [id number] PCP - General Adult Health - ELPIDIO/JALEN/GABBY/TARIK 12/11/20
--- OUTSIDE RECORDS SUMMARY | 2024-03-22 09:25 | XMS_ITS | Data Portability ---
Author Organization [facility], Main Office Address [address] [facility] [address], [address] [place] [address] Care Team Providers Care Election Assistant Name Role Phone CAREONE (NONO UNIT) OTHER PRITI SYLVESTER Primary Care Provider Assessment Encounter Date Assessment Date Assessment LastModified by Organization Details LastModified Time 03/19/2024 03/19/202403/09 bun=14 cre=0.6 wbc=8.1 hb=11 03/12: na 141, k 4.1, bun 21, creat 0.60, wbc 7.84, hgb 10.5 glord Not available 03/19/2024 09:25:06 Plan of Treatment Reminders Order Date Submit Date Provider Last Modified By Organization Details Last Modified Time Details Appointments None record ed. Lab None record ed. Referral None record ed. Procedures None record ed. Surgeries None record ed. Imaging None record ed. Medication Orders None record ed. Patient TargetsNo targets recorded. Patient InstructionsNo instructions recorded. Reason for Referral None Reported. Problems Name Problem SNOMED Code Status Onset Date Resolution Date Notes Provider Name and Address Organization Details Recorded Time Idiopathic avascular necrosis of bone Active 2024 Ivanna Gutierrez MD [address] [facility], [address], [place], [address] , [facility] 5 18:57:44 Abdominal aortic aneurysm 909484124 Active 2024 Jonah Khan MD [address] [facility], [address], [place], [address] , [facility] [employer] [facility] 5 15:23:25 Atrial fibrillation 06879028 Active 2024 Jonah Khan MD [address] [facility], [address], [place], [address] , [place] [facility] 5 15:24:30 Chronic kidney disease stage 3A 373563064 Active 2024 Jonah Khan MD [address] , [address], [place], [address] , [facility] 5 15:24:38 Chronic obstructive pulmonary disease 23446161 Active 2024 Jonah Khan MD [address], [place], [address] , [facility] 5 15:24:43 History of malignant neoplasm of uterine body 857755706 Active 2024 Jonah Khan MD [address] , [address], [place], [address] , [facility] 5 15:24:52 Gastroesophag eal reflux disease without esophagitis 471890935 Active 2024 Jonah Khan MD [address] , [address], [place], [address] , [facility] 5 15:24:57 Essential hypertension 23550859 Active 2024 Jonah Khan MD [address] , [address], [place], [address] , [facility] 5 15:25:03 Mixed hyperlipidemi a 314713712 Active 2024 Jonah Khan MD [address] [facility], [address], [place], [address] , [facility] 5 15:25:10 Neurogenic urinary bladder 137186010 Active 2024 Jonah Khan MD [address] , [address], [place], [address] , [facility] 5 15:25:20 Sick sinus syndrome 69514302 Active 2024 Jonah Khan MD [address], [place], [address] , [facility] 5 15:25:25 Osteonecrosis of hip 108536828 Active 2024 Not Available [facility] 5 08:55:23 Intestinal obstruction 01252153 Active 2024 Not Available [facility] 5 08:48:53 Recurrent bacterial infection 395873222 Active 2024 Not Available [facility] 5 08:49:58 Hypo-osmolali ty and or hyponatremia 344717626 Active 2024 Not Available [facility] 5 08:50:29 Muscle weakness 79419397 Active 2024 Not Available [facility] 5 08:51:14 Dysphagia 45212586 Active 2024 Not Available [facility] 5 08:51:44 Unsteady when standing 017735035 Active 2024 Not Available [facility] 5 08:52:15 Chronic kidney disease stage 3 318549778 Active 2024 Not Available [facility] 5 08:53:48 Abdominal aortic aneurysm without rupture 11798291 Active 2024 Not Available [facility] 5 08:54:19 Hyperlipidemi a 96406256 Active 2024 Not Available [facility] 5 08:54:20 Problem Notes None recorded. Medical Equipment None Reported. Allergies No known drug allergies Medications Name Sig Start Date Stop Date Status Note LastModified by Organization Details LastModified Time acetaminoph en 325 mg tablet Give 2 tablet by mouth every 6 hours as needed for Pain Do not exceed 3 grams in 24 hours.Tot al 650 mg AND Give 2 tablet by mouth every 6 hours as needed for Elevated temp >101 Do not exceed 3 grams in 24 hours.Tot al 650 mg 2024 active Not Available Not Available Not Avai lable ipratropium 0.5 mg-albutero l 3 mg (2.5 mg base)/3 mL nebulizatio n soln 1 vial inhale orally every 4 hours as needed for wheezing 2024 active Not Available Not Available Not Avai lable hydrocodone 5 mg-acetamin ophen 325 mg tablet Give 1 tablet by mouth every 6 hours as needed for PAIN May cause drowsines s. Avoid alcohol. (MAX: 3GM/24HR OF APAP FROM ALL SOURCES) 2024 active Not Available Not Available Not Avai lable prochlorper azine maleate 5 mg tablet Give 1 tablet by mouth every 12 hours as needed for nausea/vo miting until 07:00 03/25 completed Not Available Not Available Not Available ondansetron HCl 4 mg tablet Give 1 tablet by mouth every 6 hours as needed for nausea/vo miting 2024 active Not Available Not Available Not Avai lable Flonase 50 mcg/actuati on nasal spray,suspe nsion 2 spray in both nostrils in the morning for allergies 2024 active Not Available Not Available Not Avai lable Tamiflu 75 mg capsule Give 1 capsule by mouth one time a day for prophylax is for 7 Days Take with food if upset stomach occurs. 03/28 completed Not Available Not Available Not Available vancomycin 125 mg capsule Give 1 capsule by mouth every 6 hours for C-diff for 6 Days 03/18 completed Not Available Not Available Not Available simvastatin 40 mg tablet Give 1 tablet by mouth in the evening for hyperlipi demia Give in the evening. Avoid Grapefrui t juice. 2024 active Not Available Not Available Not Avai lable methenamine hippurate 1 gram tablet Give 1 tablet by mouth one time a day for UTI preventio n 2024 active Not Available Not Available Not Avai lable colesevelam 625 mg tablet Give 1250 mg by mouth two times a day for Hyperlipi demia 2024 active Not Available Not Available Not Avai lable pantoprazol e 40 mg tablet,feroz yed release Give 1 tablet by mouth one time a day for gerd Do not crush. 2024 active Not Available Not Available Not Avai lable DSS 100 mg capsule Give 1 capsule by mouth every 12 hours as needed for constipat ion 2024 active Not Available Not Available Not Avai lable metoprolol tartrate 50 mg tablet Give 1 tablet by mouth two times a day for high blood pressure Give with a meal or immediate ly after a meal. 2024 active Not Available Not Available Not Avai lable estradiol 0.01% (0.1 mg/gram) vaginal cream Insert 2 gram vaginally every evening shift every Mon, Fri for atrophic vaginitis 2024 active Not Available Not Available Not Avai lable Laxative (sennosides ) 8.6 mg tablet Give 1 tablet by mouth every 24 hours as needed for Constipat ion 2024 active Not Available Not Available Not Avai lable Tums 200 mg (as calcium carbonate 500 mg) chewable tablet Give 1 tablet by mouth every 24 hours as needed for dyspepsia 2024 active Not Available Not Available Not Avai lable Vitamin B-12 1,000 mcg tablet Give 1 tablet by mouth one time a day for Vitamin b12 deficienc y 2024 active Not Available Not Available Not Avai lable oxycodone 5 mg tablet Give 1 tablet by mouth every 6 hours as needed for pain May cause drowsines s. Avoid alcohol. Take out of E-kit up to 4.DC once hydrocodo ne arrives or all 4tabs are used. 2024 active Not Available Not Available Not Avai lable Bentue 10 mg capsule Give 1 capsule by mouth two times a day for IBS 2024 active Not Available Not Available Not Avai lable Acerola C 500 mg chewable tablet Give 2 tablet by mouth one time a day for supplemen t 2024 active Not Available Not Available Not Avai lable Folvite 1 mg tablet Give 1 tablet by mouth one time a day for folate deficienc y 2024 active Not Available Not Available Not Avai lable Lexapro 10 mg tablet Give 1 tablet by mouth one time a day for depressio n 2024 active Not Available Not Available Not Avai lable Vitamin D3 25 mcg (1,000 unit) tablet Give 1 tablet by mouth one time a day for vitamin d deficienc y 2024 active Not Available Not Available Not Avai lable iron 325 mg (65 mg iron) tablet Give 1 tablet by mouth one time a day for anemia Avoid dairy products, tetracycl ine, etc. within 2 hours. May discolor urine or feces. Take with food or meal if upset stomach occurs. 2024 active Not Available Not Available Not Avai lable estradiol 10 mcg vaginal tablet Insert 1 tablet vaginally every day shift every Mon, Fri for atrophic vaginitis 2024 active Not Available Not Available Not Avai lable sodium phosphates 19 gram-7 gram/197 mL enema Insert 1 unit rectally every 24 hours as needed for Constipat ion Use only if Bisacodyl Supposito ry is ineffecti ve 2024 active Not Available Not Available Not Avai lable Xarelto 20 mg tablet Give 1 tablet by mouth one time a day for anticoagu lation Take with food. Monitor for bleeding, bruising, and black tarry stools 2024 active Not Available Not Available Not Avai lable magnesium citrate 100 mg tablet Give 2 tablet by mouth at bedtime for constipat ion 2024 active Not Available Not Available Not Avai lable Powderlax 17 gram oral powder packet Give 17 gram by mouth as needed for constipat ion 2024 active Not Available Not Available Not Avai lable Vitals Date Recorded Body weight Heart rate Respiratory rate Body temperature Systolic blood pressure Diastolic blood pressure Provider Name and Address Organization Details Last Updated DateTime 5 96682.7 8 g 95 /min 18 /min 97.5 [degF] 140 mm[Hg] 105 mm[Hg] Jonah Khan MD [address] [facility], [address], [place], [address], [facility] 14:59:02 Social History Question Answer Notes LastModified by Organizat ion Details LastModified Time Tobacco Smoking Status Never Smoker Jonah Khan MD [address] [facility], [facility] [address], [place], [address], [facility] 03/12/2024 15:37:56 Do You Have An Advance Directive? No [email or web address] Information not available 03/12/2024 What Is Your Level Of Alcohol Consumption? None Information not available 03/12/2024 What Is Your Code Status? Full Code Information not available 03/12/2024 Sex: Unknown Functional Status None recorded. Mental Status None recorded. Family History Nothing Reported Notes:N/C Medical History No medical history recorded. Gynecological HistoryNo gynecological history recorded. Obstetrics History GPAL:G 0 P 0 0 0 0 Immunizations Vaccine Type Date Status Note Provider Nam e and Address Organization Details Recorded Time SARS-COV-2 (COVID-19) vaccine, UNSPECIFIED 03/06/2020 completed Claudia Reyes [facility] 03/12/2024 15:19:00 SARS-COV-2 (COVID-19) vaccine, UNSPECIFIED 04/06/2020 completed Claudia Reyes [facility] 03/12/2024 15:19:19 SARS-COV-2 (COVID-19) vaccine, UNSPECIFIED 01/19/2021 completed Claudia [facility] 03/12/2024 15:19:30 SARS-COV-2 (COVID-19) vaccine, UNSPECIFIED 07/08/2021 completed Claudia [facility] 03/12/2024 15:19:37 Past Encounters Encounter ID Performer Location Encounter Start Date Encounter Closed Date Diagnosis/Indication Diagnosis SNOMED-CT Code Diagnosis ICD10 Code Diagnosis Note [id number] Jonah Khan MD [facility] at [facility] [address] [place] [address] 03/12/2024 14:57:39 03/13/2024 09:59:50 Clostridium difficile colitis 528103269 A04.72 concern for sepsis secondary to c diff underwent treatment then question if colonized at [facility] for sxcomplete course of PO vanco Acute kidney injury 1466 9001 N17.8 ARF on CRFimprove d with IVFmonitor renal function Idiopathic avascular necrosis of bone 8051520861 M87.852 avascular necrosis left femoral head on imaging was seen by ortho now with plan to f/u for replacemen t Abdominal aortic aneurysm 113458316 I71.43 [facility] to H Asthenia 26416702 R53.1 PT OT eval and treatmonit or fall risk and need for increased support in community Atrial fibrillation 4943 6004 I48.0 xarelto 20 mg qdmetoprol ol 50 mg bidmonitor for rate controlreq uired IV lopressor in hospital Chronic ki dney disease stage 3A 061619764 N18.31 carrying dx with recent ARFmonitor renal functionav oid nephrotoxi c meds as ablenephro consult prn Chronic ob structive pulmonary disease 27428873 J41.1 added to PMHmonitor utilizatio n of albuterol History of malignant neoplasm of uterine body 148129399 Z85.42 added to PMH Gastroesop hageal reflux disease without esophagitis 141374859 K21.9 pantoprazo le 40 mg qdmonitor for sx relief Essential hypertension 65925455 I10 metoprolol 50 mg bidmonitor bp and need to titrate Mixed hyperlipidemia 267 000729 E78.2 simvastati n 40 mg qdcontinue d Neurogenic urinary bladder 130136191 N31.8 abdi cath and care Sick sinus syndrome 3608 3008 I49.5 hx of with pacer in place [id number] LEESA Lynch at [facility] [address] [place] [address] 03/19/2024 09:16:20 03/20/2024 09:36:50 Clostridium difficile colitis 765821338 A04.72 stools resolvedmo nitor for recurrent loose stool Acute kidney injury 1466 9001 N17.8 labs pending todaylast labs in range 21/0.60 Idiopathic avascular necrosis of bone 9909435039 M87.852 avascular necrosis left femoral head on imaging was seen by ortho now with plan to f/u for replacemen tcontinue PT OT see HPI Atrial fibrillation 4943 6004 I48.0 xarelto 20 mg qdmetoprol ol 50 mg bidrate controlled at [facility] Section Related Observation LastModified by Organization Detai ls LastModified Time None Recorded Concern Status LastModified by Organization Details LastModified Time None Recorded Advance Directives Directive N: Payers Encounter Date Sequence Insurance Name Policy Number Policy Ruiz Covered Member ID Ruiz Member ID Guarantor Name 03/12/2024 1 [facility] - MEDICARE PREFERRED (MEDICARE REPLACEMENT HMO) PRAKASH Jung [id number] 01 Trupti Jung 03/19/2024 1 [facility] - MEDICARE PREFERRED (MEDICARE REPLACEMENT HMO) PRAKASH Jung [id number] Trupti Fabiana Notes Date Note Type Note Provider Name and Address Organization Details Recorded Time 03/12/2024 text/html Patient is a 73 yo male admit to SNF after recent hospitalization presenting with increasing weakness and SOB. Noted tachycardia with concern for sepsis secondary to c diff underwent treatment then question if colonized at baseline. Rapid a fib required IV lopressor. Patient with noted avascular necrosis left femoral head on imaging was seen by ortho now with plan to f/u for replacement. Hyponatremia treated with IVF PMH significant forAAA follow by [facility] silvia stage 3copdgerdhx uterine cahldhtnneurogenic bladder with foleySSS s/p pacer admit to facility for continued care and therapy Jonah Khan MD [address] [facility], [address], [place], [address], [facility] 03/12/2024 15:39:49 03/19/2024 text/html Patient is a 73 yo male seen today for acute rounding visit. Patient here for rehab due to sepsis secondary to c diff as well as avascular necrosis of left femoral head. No recent nursing notes of concern through the weekend. Per PT: Seated AROM B LE: hip flex, abd, laq and ankle pumps with cues for techniques to increase strength and endurance during functional mobility tasksPt ambulated short distances within room, CGA, RW with cues for proper posture. Pt ascended/descended 4 steps x2 trials, B rails, CGA with cues for proper sequencing and catheter awarenessTransfer training completed with supervision for supine<>sit with use of bedrail. SBA for sit<>stands and CGA for SPTs with RW with cues for hand placement and eccentric control. Patient resting in bed on exam, she appears in no distress and denies any issues. 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 PMH significant forAAA follow by [facility] sadia francis stage 3copdgerdhx uterine cahldhtnneurogenic bladder with foleySSS s/p pacer LEESA GUADARRAMA [address] [facility], [address], [place], [address], [facility] 03/19/2024 09:25:55 OBGyn Episode No OBEpisode recorded.
--- OUTSIDE RECORDS SUMMARY | 2024-03-22 09:25 | XMS_ITS | Continuity of Care Document ---
Author Organization [facility] [employer] [facility], [facility] Address [address] [place] [address] Care Team Providers Care Claims Analyst Name Role Phone CAREONE (NONO UNIT) OTHER [phone] PRITI SYLVESTER Primary Care Provider Assessment Encounter [...] bone Active 2024 Ivanna Gutierrez MD [address] , [address], [place], [address] , [facility] 5 18:57:44 Abdominal aortic aneurysm 268275008 Active 2024 Jon[facility] MD [facility] [address], [place], [address] , [facility] [employer] 5 15:23:25 Atrial fibrillation 39346171 Active 2024 Jonah Khan MD [address] , [address], [place], [address] , [facility] 5 15:24:30 Chronic kidney disease stage 3A 096858960 Active 2024 Jonah Khan MD [address], [place], [address] , [facility] 5 15:24:38 Chronic obstructive pulmonary disease 74258848 Active 2024 Jonah Khan MD [address], [place], [address] , [facility] 5 15:24:43 History of malignant neoplasm of uterine body 456163841 Active 2024 Jonah Khan MD [address], [place], [address] , [facility] 5 15:24:52 Gastroesophag eal reflux disease without esophagitis 540111030 Active 2024 Jonah Khan MD [address], [place], [address] , [facility] 5 15:24:57 Essential hypertension 11876382 Active 2024 Jonah Khan MD [address], [place], [address] , [facility] 5 15:25:03 Mixed hyperlipidemi a 737210266 Active 2024 Jonah Khan MD [address], [place], [address] , [facility] 5 15:25:10 Neurogenic urinary bladder 538432954 Active 2024 Jonah Khan MD [address], [place], [address] , [facility] 5 15:25:20 Sick sinus syndrome 81122494 Active 2024 Jonah Khan MD [address], [place], [address] , [facility] 5 15:25:25 Osteonecrosis of hip 819508097 Active 2024 Not Available [facility] 5 08:55:23 Intestinal obstruction 63717010 Active 2024 Not Available [facility] 5 08:48:53 Recurrent bacterial infection 136212971 Active 2024 Not Available [facility] 5 08:49:58 Hypo-osmolali ty and or hyponatremia 233974638 Active 2024 Not Available [facility] 5 08:50:29 Muscle weakness 39153410 Active 2024 Not Available [facility] 5 08:51:14 Dysphagia 39746327 Active 2024 Not Available [facility] 5 08:51:44 Unsteady when standing 141995502 Active 2024 Not Available [facility] 5 08:52:15 Chronic kidney disease stage 3 274971749 Active 2024 Not Available [facility] 5 08:53:48 Abdominal aortic aneurysm without rupture 37770112 Active 2024 Not Available [facility] 5 08:54:19 Hyperlipidemi a 43732768 Active 2024 Not Available [facility] [...] Available Not Available Not Avai lable Vitals None Recorded Social History Question Answer Notes LastModified by Organizat ion Details LastModified Time Tobacco Smoking Status Never Smoker Jonah Khan MD [address] [place] [address], [place], [address], [facility] [employer] 03/12/2024 15:37:56 Do You Have An Advance Directive? No Information not available 03/12/2024 What Is Your [...] Immunizations Vaccine Type Date Status Note Provider Ab hernandez and Address Organization Details Recorded Time SARS-COV-2 (COVID-19) vaccine, UNSPECIFIED 03/06/2020 dev hernadez, [facility] [employer] 03/12/2024 15:19:00 SARS-COV-2 (COVID-19) vaccine, UNSPECIFIED 04/06/2020 completed Claudiagiovanna Reyes [facility] 03/12/2024 15:19:19 SARS-COV-2 (COVID-19) vaccine, UNSPECIFIED 01/19/2021 completed Claudia [facility] 03/12/2024 15:19:30 SARS-COV-2 (COVID-19) vaccine, UNSPECIFIED 07/08/2021 completed Claudia [facility] 03/12/2024 15:19:37 Past Encounters Encounter ID Performer Location Encounter Start Date Encounter Closed Date Diagnosis/Indication Diagnosis SNOMED-CT Code Diagnosis ICD10 Code Diagnosis Note [id number] Jonah Khan MD [facility] on [address] [place] [address] 03/12/2024 14:57:39 03/13/2024 09:59:50 Clostridium difficile colitis 326977877 A04.72 concern for sepsis secondary to c diff underwent treatment then question if colonized at baselinemo nitor for sxcomplete course of PO vanco Acute kidney injury 1466 9001 N17.8 ARF on CRFimprove d with IVFmonitor renal function Idiopathic avascular necrosis of bone 5999952655 M87.852 avascular necrosis left femoral head on imaging was seen by ortho now with plan to f/u for replacemen t Abdominal aortic aneurysm 628427295 I71.43 [facility] vascularad ded to PMH Asthenia 47395292 R53.1 PT OT eval and treatmonit or fall risk and need for increased support in community Atrial fibrillation 4943 6004 I48.0 xarelto 20 mg qdmetoprol ol 50 mg bidmonitor for rate controlreq uired IV lopressor in hospital Chronic ki dney disease stage 3A 026905833 N18.31 carrying dx with recent ARFmonitor renal functionav oid nephrotoxi c meds as ablenephro consult prn Chronic ob structive pulmonary disease 25692165 J41.1 added to PMHmonitor utilizatio n of albuterol History of malignant neoplasm of uterine body 700417794 Z85.42 added to PMH Gastroesop hageal reflux disease without esophagitis 843689411 K21.9 pantoprazo le 40 mg qdmonitor for sx relief Essential hypertension 43429144 I10 metoprolol 50 mg bidmonitor bp and need to titrate Mixed hyperlipidemia 267 761613 E78.2 simvastati n 40 mg qdcontinue d Neurogenic urinary bladder 704947617 N31.8 abdi cath and care Sick sinus syndrome 3608 3008 I49.5 hx of with pacer in place [id number] LEESARUSH GUADARRAMA [facility] at [facility] on [address] [place] [address] 03/19/2024 09:16:20 03/20/2024 09:36:50 Clostridium difficile colitis 962452369 A04.72 stools resolvedmo nitor for recurrent loose stool Acute kidney injury 1466 9001 N17.8 labs pending todaylast labs in range 21/0.60 Idiopathic avascular necrosis of bone 7138088788 M87.852 avascular necrosis left femoral head on [...] by Organization Details LastModified Time None Recorded Payers Encounter Date Sequence Insurance Name Policy Number Policy Ruiz Covered Member ID Ruiz Member ID Guarantor Name 03/19/2024 1 [facility] - MEDICARE PREFERRED (MEDICARE REPLACEMENT HMO) PRAKASH Jung [id number] Trupti Jung Notes Date Note Type Note Provider Name and Address Organization Details Recorded Time 03/19/2024 text/html Patient is a 73 yo [...] is asking for edward byers, 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 PMH significant forAAA [facility] stage 3copdgerdhx uterine cahldhtnneurogenic bladder with foleySSS s/p pacer LEESA GUADARRAMA [address] [place] [address], [address], [place], [address], [place] [facility] 03/19/2024 09:25:55 OBGyn Episode No OBEpisode recorded.
--- OUTSIDE RECORDS SUMMARY | 2024-03-22 09:25 | XMS_ITS | Clinical Summary ---
Author Organization [facility] Address [address] [place] [address] Phone Care Team Providers Care Energy Analyst Name Role Phone Nick Bonner MD Primary Care Provider [phone] Allergies No known active allergies Medications ascorbic acid (VITAMIN C) 500 MG tablet Take 1 tablet by mouth 1 (one) time each day Active ferrous sulfate 325 (65 Fe) MG tablet Take 1 tablet by mouth 2 (two) times a day Active folic acid (FOLVITE) 1 MG tablet Take 1 tablet by mouth 1 (one) time each day Active Flovent HFA 110 MCG/ACT inhaler 05/06/2020 Act chyna HYDROcodone-sammi taminophen (NORCO) 7.5-325 MG per tablet Take 1 tablet by mouth 2 (two) times a day Active metoprolol succinate XL (TOPROL-XL) 25 MG 24 hr tablet Take 50 mg by mouth 2 (two) times a day Active rivaroxaban (XARELTO) 15 MG tablet Take 1 tablet by mouth 1 (one) time each day Active pantoprazole (PROTONIX) 40 MG EC tablet Take 1 tablet by mouth 1 (one) time each day 02/13/2020 Active simvastatin (ZOCOR) 40 MG tablet Take 40 mg by mouth daily 06/01/2020 Active pancrelipase, Owk-Zoqy-Yons, (Creon) 6878-7516 units capsule TAKE 1 CAPSULE BY MOUTH FOUR TIMES A DAY TAKE 15-30 MIN BEFORE MEALS 08/28/2020 Active ketorolac (ACULAR) 0.5 % ophthalmic solution PUT 1 DROP INTO RIGHT EYE 4 TIMES A DAY 10/14/2020 Active predniSONE (DELTASONE) 10 MG tablet 12/22/2020 Active digoxin (LANOXIN) 250 MCG tablet Take 1 tablet by mouth in the morning. 01/11/2021 Active Active Problems Problem Noted Date Diagnosed Date Chronic kidney disease 06/01/2020 Anemia 05/14/2020 Hypertensive heart and renal disease with (congestive) heart failure 05/14/2020 Iron deficiency anemia 05/14/2020 Resolved Problems Problem Noted Date Diagnosed Date Resolved Date Atrial fibrillation 11/09/2020 11/12/19 21 Overview (11/09/2020): Hx cardioversion. Hx RFA (complex left atrial arrythmia). Cardiac pacemaker in situ 11/09/2020 Chronic obstructive pulmonary disease 11/09/2020 11/11/2020 Abdominal aortic aneurysm without rupture 07/08/2020 11/11/2020 Overview (11/09/2020): Infrarenal on 2019 CT Degeneration of lumbar intervertebral disc 07/08/2020 11/11/2020 Sick sinus syndrome 07/08/2020 11/12/19 21 Immunizations Name Administration Dates Next Due Moderna SARS-COV-2 04/06/2020,03/06/2020 Family History Medical History Relation Comments Cancer Father Heart disease Father Kidney disease Father Cancer Sibling Relation Status Comments Father Mother Sibling Social History Tobacco Use Types Packs/Day Years Used Date Smoking Tobacco: Former Smokeless Tobacco: Former Tobacco Cessation:Counseling Given: No Comments:Smoking History Info:Every day Comments Unknown Sex and Gender Information Value Date Recorded Sex Assigned at Not on file Legal Sex Female 4:55 PM EST Gender Identity Not on file Sexual Orientation Not on file Last Filed Vital Signs Vital Sign Reading Time Taken Comments Blood Pressure 108/76 11/25/2021 1:19 PM EDT Pulse 72 02/14/2019 12:00 PM EST Temperature - - Respiratory Rate - - Oxygen Saturation 98% 11/01/2018 12:00 PM EDT Inhaled Oxygen Concentration - - Weight 60.3 kg (133 lb) 11/25/2021 1:19 PM EDT Height 162.6 cm (5' 4 ) 02/14/2019 12:00 PM EST Body Mass Index 22.83 02/14/2019 12:00 PM EST Plan of Treatment Health Maintenance Due Date Last Done Comments Breast Cancer Screening 1950 Pneumococcal Vaccine: 65+ Ye ars (1 of 2 - PCV) 12/26/1956 Colorectal Cancer Screening: Annual FOBT 1998 Colorectal Cancer Screening: Colonoscopy 1998 Colorectal Cancer Screening: Sigmoidoscopy 1998 Influenza Vaccine (#1) 2023 11/26/2020 Hepatitis B Vaccine Aged Out No longe r eligible based on patient's age to complete this topic Insurance [facility] Care Teams Energy Analyst Relationship Specialty Start Date End Date Nick Bonner MD [address] [place] [address] PCP - General Internal Medicine 05/14/20
== END 2024-03-22 09:58 | disposition home or self-care (01) ==
PROVIDERS: PCP Internal Medicine; Visit Provider Nurse Practitioner Family
DX: I48.19 Other persistent atrial fibrillation (principal); Z95.0 Presence of cardiac pacemaker; I10 Essential (primary) hypertension; R94.31 Abnormal electrocardiogram [ECG] [EKG]; I48.91 Unspecified atrial fibrillation; Z01.810 Encounter for preprocedural cardiovascular examination
CPT/HCPCS: 93010; 93280; 99214; G2211

== ENCOUNTER → 2024-03-22 09:01 | Outpatient (BNVA) | payer MEDICARE, SELFPAY | PROVIDERS: PCP Internal Medicine; Visit Provider Nurse Practitioner Family | DX: Z01.810 Encounter for preprocedural cardiovascular examination (principal); I48.19 Other persistent atrial fibrillation; I71.40 Abdominal aortic aneurysm, without rupture, unspecified; I10 Essential (primary) hypertension; R94.31 Abnormal electrocardiogram [ECG] [EKG]; Z45.018 Encounter for adjustment and management of other part of cardiac pacemaker; Z79.01 Long term (current) use of anticoagulants | CPT/HCPCS: 93005; 93280; 99212 ==

== ENCOUNTER → 2024-03-27 09:01 | Outpatient (REF) | payer MEDICARE, SELFPAY ==
--- NOTE | 2024-03-27 09:05 | CA_ITS ---
Acquisition Time: 2024-03-27 09:22:56 Total Exercise Time: 00:02:00 Test Indications: abn ekg, afib Medications: see h&p Protocol: LEXISCAN Max HR: 139 BPM 95% of Pred: 146 BPM Max BP: 112/68 mmHG Max Work Load: 1.0 METS Pharmacologic stress test with Lexiscan, with reports of back pain, feeling warm, and dizziness, with isolated PVCs, with normotensive response to injection. Nondiagnostic EKG for ischemia. In recovery, pt treated with IVP Aminophylline 75 mg to reverse Lexiscan, after which pt feeling back to baseline. Nuclear images pending. Test reviewed with Dr. Leyva. Referred By: Sanjuana Cardona Electronically Signed By: James Escobedo
--- OUTSIDE RECORDS SUMMARY | 2024-03-27 09:12 | XMS_ITS | Clinical Summary ---
Author Organization [facility] Address [address] [place] [address] Care Team Providers Care Mechanical Systems Control Engineer Name Role Phone Elena Jacobo HEAT READER Primary Care Provider Allergies No known active [...] 2 (two) times a day. Active Pancrelipase, Two-Wtav-Irob, (Creon) 0668-5883 units Cap Particles Take 1 capsule by [...] this topic Medical Devices Implanted Type Area Razor Sharpener Device Identifier Shelf Expiration Date Model / Serial / Lot Pacemaker Pacemaker Advance Directives * Full Code (Latest Code Status on File) Date Activated Date Inactivated Comments 12/11/2020 8:56 AM Care Teams Mechanical Systems Control Engineer Relationship Specialty Start Date End Date Elena Jacobo NP [address] [place] [address] PCP - General Adult Health - ELPIDIO/JALEN/GABBY/TARIK 12/11/20
--- OUTSIDE RECORDS SUMMARY | 2024-03-27 09:12 | XMS_ITS | Encounter Summary ---
Author Organization [facility] Address [address] [place] [address] Phone Care Team Providers Care Novelty Balloon Assembler And Packer Name Role Phone Nick Bonner MD Primary Care Provider [phone] Encounter Details Date Type Department Care Team (Late st Contact Info) Description 11/10/2021 Telephone [facility] [address] [place] [address] Inocente Martínez MD Social History [...] on filedocumented in this encounter Care Teams Novelty Balloon Assembler And Packer Relationship Specialty Start Date End Date Nick Bonner MD [address] [place], [place] [address], [place] [address] PCP - General Internal Medicine 05/14/20 documented as of this encounter
--- OUTSIDE RECORDS SUMMARY | 2024-03-27 09:13 | XMS_ITS | Clinical Summary ---
Author Organization [facility] Address [address] [place] [address] Phone Care Team Providers Care Director Of Sales And Marketing Name Role Phone Nick Bonner MD Primary Care Provider [phone] Allergies No known active allergies Medications ascorbic [...] mg by mouth daily 06/01/2020 Active pancrelipase, Mzy-Inzy-Cgte, (Creon) 0908-2380 units capsule TAKE 1 CAPSULE BY MOUTH [...] patient's age to complete this topic Insurance [facility] Care Teams Director Of Sales And Marketing Relationship Specialty Start Date End Date Nick Bonner MD [address] [place] [address] PCP - General Internal Medicine 05/14/20
--- OUTSIDE RECORDS SUMMARY | 2024-03-27 09:13 | XMS_ITS | Continuity of Care Document ---
Author Organization [facility] Address [address] [place] [address] Care Team Providers Care Agricultural Extension Educator Name Role Phone CAREONE (NONO UNIT) OTHER PRITI SYLVESTER Primary Care Provider Assessment Encounter Date Assessment Date Assessment LastModified by Organization Details LastModified Time 03/22/2024 03/22/202403/09 bun=14 cre=0.6 wbc=8.1 hb=11 03/12: na 141, k 4.1, bun 21, creat 0.60, wbc 7.84, hgb 10.5 03/19: na 141, k 5.2, bun 24, creat 0.80, wbc 4.57, hgb 11.2 glord Not available 03/22/2024 11:43:32 Plan of Treatment Reminders Order Date Submit [...] bone Active 2024 Ivanna Gutierrez MD [address], [address], [place], [address] , [facility] [employer] 5 18:57:44 Abdominal aortic aneurysm 519607861 Active 2024 Jonah Khan MD [address], [address], [place], [address] , [facility] [employer] 5 15:23:25 Atrial fibrillation 10568452 Active 2024 Jonah Khan MD [address], [place], [address] , [employer] [facility] 5 15:24:30 Chronic kidney disease stage 3A 273316129 Active 2024 Jonah Khan MD [address], [place], [address] , [facility] 5 15:24:38 Chronic obstructive pulmonary disease 69195223 Active 2024 Jonah Khan MD [address] , [address], [place], [address] , [facility] 5 15:24:43 History of malignant neoplasm of uterine body 990384425 Active 2024 Jonah Khan MD [address], [address], [place], [address] , [facility] 5 15:24:52 Gastroesophag eal reflux disease without esophagitis 573834269 Active 2024 Jonah Khan MD [address] , [address], [place], [address] , [facility] 5 15:24:57 Essential hypertension 44680440 Active 2024 Jonah Khan MD [address], [address], [place], [address] , [facility] 5 15:25:03 Mixed hyperlipidemi a 258573530 Active 2024 Jonah Khan MD [address], [address], [place], [address] , [facility] 5 15:25:10 Neurogenic urinary bladder 034389380 Active 2024 Jonah Khan MD [address] [place] [address], [address], [place], [address] , [employer] [facility] 5 15:25:20 Sick sinus syndrome 29070841 Active 2024 Jonah Khan MD [address], [address], [place], [address] [facility] 5 15:25:25 Osteonecrosis of hip 367092293 Active 2024 Not Available [facility] 5 08:55:23 Intestinal obstruction 24747063 Active 2024 Not Available [facility] 5 08:48:53 Recurrent bacterial infection 050960823 Active 2024 Not Available [facility] 5 08:49:58 Hypo-osmolali ty and or hyponatremia 525870662 Active 2024 Not Available [facility] 5 08:50:29 Muscle weakness 05202677 Active 2024 Not Available [facility] 5 08:51:14 Dysphagia 28551904 Active 2024 Not Available [facility] 5 08:51:44 Unsteady when standing 334446510 Active 2024 Not Available [facility] 5 08:52:15 Chronic kidney disease stage 3 456329653 Active 2024 Not Available [facility] 5 08:53:48 Abdominal aortic aneurysm without rupture 72700589 Active 2024 Not Available [facility] 5 08:54:19 Hyperlipidemi a 76451631 Active 2024 Not Available [facility] 5 08:54:20 Iron deficiency anemia 76015837 Active 2024 Not Available [facility] 5 12:58:42 Recurrent depression 468765968 Active 2024 Not Available [facility] 5 12:58:44 Problem Notes None recorded. Medical Equipment None [...] Not Available Not Available Not Avai lable Digox 125 mcg (0.125 mg) tablet Give 1 tablet by mouth every 48 hours for heart health until 23:59 one tablet every other day for seven doses 04/05 completed Not Available Not Available Not Available Powderlax 17 gram oral powder packet Give 17 gram by mouth as needed for constipat ion 2024 active Not Available Not Available Not Avai lable Vitals None Recorded Social History Question Answer Notes LastModified by Organizat ion Details LastModified Time Tobacco Smoking Status Never Smoker Jonah Khan MD [address], [address], [place], [address], [facility] 03/12/2024 15:37:56 Do You Have An Advance Directive? No [place] [address] Information not available 03/12/2024 What Is Your Level Of Alcohol Consumption? None [email or web address] Information not available 03/12/2024 What Is Your Code Status? Full Code [place] [address] Information not available 03/12/2024 Sex: Unknown Functional Status None recorded. Mental Status None recorded. Family History Nothing Reported Notes:N/C Medical History No medical history recorded. Gynecological HistoryNo gynecological history recorded. Obstetrics History GPAL:G 0 P 0 0 0 0 Immunizations Vaccine Type Date Status Note Provider Nam e and Address Organization Details Recorded Time SARS-COV-2 (COVID-19) vaccine, UNSPECIFIED 03/06/2020 completed Claudia Eric [facility] 03/12/2024 15:19:00 SARS-COV-2 (COVID-19) vaccine, UNSPECIFIED 04/06/2020 completed Claudia Reyes [facility] 03/12/2024 15:19:19 SARS-COV-2 (COVID-19) vaccine, UNSPECIFIED 01/19/2021 completed Claudia Reyes [facility] 03/12/2024 15:19:30 SARS-COV-2 (COVID-19) vaccine, UNSPECIFIED 07/08/2021 completed Claudia Eric [facility] 03/12/2024 15:19:37 Past Encounters Encounter ID Performer Location Encounter Start Date Encounter Closed Date Diagnosis/Indication Diagnosis SNOMED-CT Code Diagnosis ICD10 Code Diagnosis Note [id number] Jonah Khan MD [address] [address] 03/12/2024 14:57:39 03/13/2024 09:59:50 Clostridium difficile colitis 778993149 A04.72 concern for sepsis secondary to c diff underwent treatment then question if colonized at baselinemo nitor for sxcomplete course of PO vanco Acute kidney injury 1466 9001 N17.8 ARF on CRFimprove d with IVFmonitor renal function Idiopathic avascular necrosis of bone 9282353316 M87.852 avascular necrosis left femoral head on imaging was seen by ortho now with plan to f/u for replacemen t Abdominal aortic aneurysm 815857967 I71.43 [facility] to PMH Asthenia 19250844 R53.1 PT OT eval and treatmonit or fall risk and need for increased support in community Atrial fibrillation 4943 6004 I48.0 xarelto 20 mg qdmetoprol ol 50 mg bidmonitor for rate controlreq uired IV lopressor in hospital Chronic ki dney disease stage 3A 065166513 N18.31 carrying dx with recent ARFmonitor renal functionav oid nephrotoxi c meds as ablenephro consult prn Chronic ob structive pulmonary disease 29165183 J41.1 added to PMHmonitor utilizatio n of albuterol History of malignant neoplasm of uterine body 166287730 Z85.42 added to PMH Gastroesop hageal reflux disease without esophagitis 783187135 K21.9 pantoprazo le 40 mg qdmonitor for sx relief Essential hypertension 49436098 I10 metoprolol 50 mg bidmonitor bp and need to titrate Mixed hyperlipidemia 267 244251 E78.2 simvastati n 40 mg qdcontinue d Neurogenic urinary bladder 856247977 N31.8 abdi cath and care Sick sinus syndrome 3608 3008 I49.5 hx of with pacer in place [id number] LEESA Lynch at [facility] on [address] [place] [address] 03/19/2024 09:16:20 03/20/2024 09:36:50 Clostridium difficile colitis 632046268 A04.72 stools resolvedmo nitor for recurrent loose stool Acute kidney injury 1466 9001 N17.8 labs pending todaylast labs in range 21/0.60 Idiopathic avascular necrosis of bone 0190914349 M87.852 avascular necrosis left femoral head on imaging was seen by ortho now with plan to f/u for replacemen tcontinue PT OT see HPI Atrial fibrillation 4943 6004 I48.0 xarelto 20 mg qdmetoprol ol 50 mg bidrate controlled at 79 [id number] LEESA Lynch at [facility] on [address] [place] [address] 03/22/2024 11:37:26 03/25/2024 11:02:46 Acute kidney injury 95090558 N17.8 stable for patientlas t labs in range 24/0.80enc ourage PO fluids Idiopathic avascular necrosis of bone 8303632827 M87.852 continue PTPt ambulated short distances up to 30' within room x4 trials, RW, SBA with cues for improved [id number] 30: Car transfer scheduled for this date but daughter running late. While waiting pt reports significan t nausea and needing to return to bed. Offered car transfer training when daughter present later in afternoon but pt felt unable and reschedule d for tomorrow. Supervisio n for supine<>si t and sit<>stand s, SBA for SPTs with cues for hand placement and catheter awareness Atrial fibrillation 4943 6004 I48.0 see HPIadd amiodarone 125 mg every other day per cardsxarel to 20 mg qdmetoprol ol 50 mg bidrate controlled at 79 Health Concerns Section Related Observation LastModified by Organization Detai ls LastModified Time None Recorded Concern Status LastModified by Organization Details LastModified Time None Recorded Payers Encounter Date Sequence Insurance Name Policy Number Policy Ruiz Covered Member ID Ruiz Member ID Guarantor Name 03/22/2024 1 [facility] - MEDICARE PREFERRED (MEDICARE REPLACEMENT HMO) PRAKASH Jung [id number] Trupti Jung Notes Date Note Type Note Provider Name and Address Organization Details Recorded Time 03/22/2024 text/html Patient is a 73 yo male seen today for acute rounding visit. Patient here for rehab due to sepsis secondary to c diff as well as avascular necrosis of left femoral head. Patient went out to [facility] today for follow up, they recommend to start dig for rate control. Per PT: Pt ambulated short distances up to 30' within room x4 trials, RW, SBA with cues for improved postureCar transfer scheduled for this date but daughter running late. While waiting pt reports significant nausea and needing to return to bed. Offered car transfer training when daughter present later in afternoon but pt felt unable and rescheduled for tomorrow. Supervision for supine<>sit and sit<>stands, SBA for SPTs with cues for hand placement and catheter awareness. PMH significant forAAA follow by [facility] vascular fibcrf stage 3copdgerdhx uterine cahldhtnneurogenic bladder with foleySSS s/p pacer LEESA GUADARRAMA [address], [address], [place], [address], [facility] [employer] 03/22/2024 11:45:17 OBGyn Episode No OBEpisode recorded.
== END ==
LOC: HO.CARD 09:01
PROVIDERS: PCP Internal Medicine; Visit Provider Nurse Practitioner Family
DX: Z01.810 Encounter for preprocedural cardiovascular examination (principal); I48.19 Other persistent atrial fibrillation; R94.31 Abnormal electrocardiogram [ECG] [EKG]
CPT/HCPCS: 78452; 93017; A9500; J0280; J2785

== ENCOUNTER → 2024-03-27 09:05 | Outpatient (BNV) | payer MEDICARE, SELFPAY | PROVIDERS: PCP Internal Medicine | DX: I49.3 Ventricular premature depolarization (principal) | CPT/HCPCS: 78452; 93016; 93018 ==

== ENCOUNTER 2024-03-28 15:06 | Outpatient (REF) | payer MEDICARE, SELFPAY ==
--- OUTSIDE RECORDS SUMMARY | 2024-03-28 16:09 | XMS_ITS ---
Author Organization [facility] on Address Unknown Medications Medication Dose Frequency Directions Start Date End Anthony e Fleet Enema Enema 7-19 GM/118ML 1 Insert 1 unit rectally every 24 hours as needed for Constipation Use only if Bisacodyl Suppository is ineffective 03/11/2024 Acetaminophen Tablet 325 MG 2 {tbl} Give 2 tablet by mouth every 6 hours as needed for Pain Do not exceed 3 grams in 24 hours.Total 650 mg 03/12/2024 Acetaminophen Tablet 325 MG 2 {tbl} Give 2 tablet by mouth every 6 hours as needed for Elevated temp >101 Do not exceed 3 grams in 24 hours.Total 650 mg 03/12/2024 Senna Tablet 8.6 MG 1 {tbl} Give 1 t ablet by mouth every 24 hours as needed for Constipation 03/12/2024 Hydrocodone-Acetaminoph en Tablet 5-325 MG 1 {tbl} Give 1 tablet by mouth every 6 hours as needed for PAIN May cause drowsiness. Avoid alcohol. (MAX: 3GM/24HR OF APAP FROM ALL SOURCES) 03/12/2024 Methenamine Hippurate Oral Tablet 1 GM 1 {tbl} 24 h Give 1 tablet by mouth one time a day for UTI prevention 03/12/2024 Colesevelam HCl Oral Tablet 625 MG 1250 mg 12 h Give 1250 mg by mout h two times a day for Hyperlipidemia 03/12/2024 OxyCODONE HCl Tablet 5 MG 1 {tbl} Give 1 tablet by mouth every 6 hours as needed for pain May cause drowsiness. Avoid alcohol. Take out of E-kit up to 4.DC once hydrocodone arrives or all 4tabs are used. 03/12/2024 03/12/2024 Vancomycin HCl Oral Capsule 125 MG 1 {Capsule} 6 h Give 1 capsule by mouth every 6 hours for C-diff for 6 Days 03/12/2024 03/12/2024 Zinc Sulfate Oral Capsule 50 MG 1 {Capsule} 24 h Give 1 capsule by mouth one time a day for health maintenance 03/12/2024 Ondansetron HCl Oral Tablet 4 MG 1 {tbl} Give 1 tablet by mouth every 6 hours as needed for nausea/vomiting 03/12/2024 Vitamin D3 Tablet 25 MCG (1000 UT) 1 {tbl} 24 h Give 1 tablet by mouth one time a day for vitamin d deficiency 03/12/2024 Albuterol Sulfate HFA Inhalation Aerosol Solution 108 (90 Base) MCG/ACT 2 2 puff inhale orally every 6 hours as needed for wheezing 03/12/2024 Dicyclomine HCl Oral Capsule 10 MG 1 {Capsule} 12 h Give 1 capsule by mouth two times a day for IBS 03/12/2024 Docusate Sodium Capsule 100 MG 1 {Capsule} Give 1 capsule by mouth every 12 hours as needed for constipation 03/12/2024 Pantoprazole Sodium Tablet Delayed Release 40 MG 1 {tbl} 24 h Give 1 tablet by mouth one time a day for gerd Do not crush. 03/12/2024 Metoprolol Tartrate Tablet 50 MG 1 {tbl} 12 h Give 1 tablet by mouth two times a day for high blood pressure Give with a meal or immediately after a meal. 03/12/2024 Ascorbic Acid Oral Tablet 500 MG 2 {tbl} 24 h Give 2 tablet by mouth one time a day for supplement 03/12/2024 Simethicone Ultra Strength Oral Capsule 180 MG 1 {tbl} 12 h Give 1 tablet by mouth two times a day for gas 03/12/2024 Prochlorperazine Maleate Oral Tablet 5 MG 1 {tbl} Give 1 tablet by mouth every 12 hours as needed for nausea/vomiting 03/12/2024 03/12/2024 Tums Tablet Chewable 500 MG 1 {tbl} Give 1 tablet by mouth every 24 hours as needed for dyspepsia 03/12/2024 Magnesium Citrate Oral Tablet 100 MG 2 {tbl} Give 2 tablet by mouth at bedtime for constipation 03/13/2024 Polyethylene Glycol 3350 Packet 17 Give 17 gram by mout h as needed for constipation 03/12/2024 Simvastatin Tablet 40 MG 1 {tbl} Give 1 tablet by mouth in the evening for hyperlipidemia Give in the evening. Avoid Grapefruit juice. 03/13/2024 Cyanocobalamin Oral Tablet 1000 MCG 1 {tbl} 24 h Give 1 tablet by mouth one time a day for Vitamin b12 deficiency 03/12/2024 Estradiol Vaginal Insert 10 MCG 1 {tbl} Insert 1 tablet vaginally every day shift every Mon, Fri for atrophic vaginitis 03/15/2024 03/12/2024 Ipratropium-Albuterol Inhalation Solution 0.5-2.5 (3) MG/3ML 1 1 vial inhale orally every 4 hours as needed for wheezing 03/12/2024 Culturelle Oral Capsule 1 {tbl} Give 1 tablet by mouth in the morning for probiotic 03/12/2024 Lexapro Oral Tablet 10 MG 1 {tbl} 24 h Give 1 tablet by mouth one time a day for depression 03/12/2024 Estradiol Vaginal Cream 0.1 MG/GM 2 Insert 2 gram vaginally every day shift every Mon, Fri for atrophic vaginitis 03/15/2024 03/15/2024 Folic Acid Tablet 1 MG 1 {tbl} 24 h Give 1 tablet by mouth one time a day for folate deficiency 03/12/2024 Ferrous Sulfate Tablet 325 (65 Fe) MG 1 {tbl} 24 h Give 1 tablet by mouth one time a day for anemia Avoid dairy products, tetracycline, etc. within 2 hours. May discolor urine or feces. Take with food or meal if upset stomach occurs. 03/12/2024 Fluticasone Propionate Nasal Suspension 50 MCG/ACT 2 2 spray in both nostrils in the morning for allergies 03/12/2024 Xarelto Tablet 20 MG 1 {tbl} 24 h Give 1 tablet by mouth one time a day for anticoagulation Take with food. Monitor for bleeding, bruising, and black tarry stools 03/12/2024 Bisacodyl Rectal Suppository 1 Insert 1 application rectally every 24 hours as needed for Constipation Use if PRN Senna is Ineffective 03/12/2024 Prochlorperazine Maleate Oral Tablet 5 MG 1 {tbl} Give 1 tablet by mouth every 12 hours as needed for nausea/vomiting until 03/25/2024 07:00 03/12/2024 03/25/2024 Estradiol Vaginal Cream 0.1 MG/GM 2 Insert 2 gram vaginally every evening shift every Mon, Fri for atrophic vaginitis 03/15/2024 Tamiflu Capsule 75 MG 1 {Capsule} 24 h Give 1 capsule by mouth one time a day for prophylaxis for 7 Days Take with food if upset stomach occurs. 03/22/2024 Digox Oral Tablet 125 MCG 1 {tbl} 48 h Give 1 tablet by mouth every 48 hours for heart health until 04/04/2024 23:59 one tablet every other day for seven doses 03/23/2024 Prochlorperazine Maleate Oral Tablet 5 MG 1 {tbl} Give 1 tablet by mouth every 12 hours as needed for nausea/vomiting for 30 Days 03/27/2024 Medications Administered Medication Dose Frequency Status Start Date End Date Fleet Enema Enema 7-19 GM/118ML 1 03/11/2024 Acetaminophen Tablet 325 MG 2 {tbl} 03/15/2024 Acetaminophen Tablet 325 MG 2 {tbl} 03/12/2024 Senna Tablet 8.6 MG 1 {tbl} 03/12/2024 Hydrocodone-Acetaminophen Tablet 5-325 MG 1 {tbl} 03/26/2024 Methenamine Hippurate Oral Tablet 1 GM 1 {tbl} 24 h 03/28/2024 Colesevelam HCl Oral Tablet 625 MG 1250 mg 12 h Other / See Nurse Notes 03/28/2024 OxyCODONE HCl Tablet 5 MG 1 {tbl} 05/2024 Vancomycin HCl Oral Capsule 125 MG 1 {Capsule} 6 h 03/12/2024 Zinc Sulfate Oral Capsule 50 MG 1 {Capsule} 24 h 03/28/2024 Ondansetron HCl Oral Tablet 4 MG 1 {tbl} 03/27/2024 Vitamin D3 Tablet 25 MCG (1000 UT) 1 {tbl} 24 h 03/28/2024 Albuterol Sulfate HFA Inhalation Aerosol Solution 108 (90 Base) MCG/ACT 2 03/12/2024 Dicyclomine HCl Oral Capsule 10 MG 1 {Capsule} 12 h 03/28/2024 Docusate Sodium Capsule 100 MG 1 {Capsule} 03/22/2024 Pantoprazole Sodium Tablet Delayed Release 40 MG 1 {tbl} 24 h 03/28/2024 Metoprolol Tartrate Tablet 50 MG 1 {tbl} 12 h 03/28/2024 Ascorbic Acid Oral Tablet 500 MG 2 {tbl} 24 h 03/28/2024 Simethicone Ultra Strength Oral Capsule 180 MG 1 {tbl} 12 h Drug Refused 03/28/2024 Prochlorperazine Maleate Oral Tablet 5 MG 1 {tbl} 03/12/2024 Tums Tablet Chewable 500 MG 1 {tbl} 03/22/2024 Magnesium Citrate Oral Tablet 100 MG 2 {tbl} Other / See Nurse Notes 03/28/2024 Polyethylene Glycol 3350 Packet 17 03/12/2024 Simvastatin Tablet 40 MG 1 {tbl} 03/27 Cyanocobalamin Oral Tablet 1000 MCG 1 {tbl} 24 h 03/28/2024 Estradiol Vaginal Insert 10 MCG 1 {tbl} 03/15/2024 Ipratropium-Albuterol Inhalation Solution 0.5-2.5 (3) MG/3ML 1 03/12/2024 Culturelle Oral Capsule 1 {tbl} 2024 Lexapro Oral Tablet 10 MG 1 {tbl} 24 h 03/10 Estradiol Vaginal Cream 0.1 MG/GM 2 03/15/2024 Folic Acid Tablet 1 MG 1 {tbl} 24 h 025 Ferrous Sulfate Tablet 325 (65 Fe) MG 1 {tbl} 24 h 03/28/2024 Fluticasone Propionate Nasal Suspension 50 MCG/ACT 2 Drug Refused 03/28/2024 Xarelto Tablet 20 MG 1 {tbl} 24 h Bisacodyl Rectal Suppository 1 03/12/2024 Prochlorperazine Maleate Oral Tablet 5 MG 1 {tbl} 03/25/2024 Estradiol Vaginal Cream 0.1 MG/GM 2 03/25/2024 Tamiflu Capsule 75 MG 1 {Capsule} 24 h 2024 Digox Oral Tablet 125 MCG 1 {tbl} 48 h 03/09 Prochlorperazine Maleate Oral Tablet 5 MG 1 {tbl} 03/27/2024 Problems Problem Status Start Date End Date 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) ACTIVE 03/11/2024 UNSPECIFIED INTESTINAL OBSTR UCTION, UNSPECIFIED TO PARTIAL VERSUS COMPLETE OBSTRUCTION (K56.609 - ICD-10-CM) ACTIVE 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, 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) ACTIVE 03/11/2024 HYPO-OSMOLALITY AND HYPONATREMIA (E87.1 - ICD-10-CM) A CTIVE 03/11/2024 MUSCLE WEAKNESS (GENERALIZED) (M62.81 - ICD-10-CM) ACT ASHELY 03/11/2024 DYSPHAGIA, UNSPECIFIED (R13.10 - ICD-10-CM) ACTIVE 03/11/2024 UNSTEADINESS ON FEET (R26.81 - ICD-10-CM) ACTIVE 03/11/2024 CHRONIC OBSTRUCTIVE PULMONAR Y DISEASE, UNSPECIFIED (J44.9 - ICD-10-CM) ACTIVE 03/11/2024 UNSPECIFIED ATRIAL FIBRILLATION (I48.91 - ICD-10-CM) A CTIVE 03/11/2024 CHRONIC KIDNEY DISEASE, STAG E 3 UNSPECIFIED (N18.30 - ICD-10-CM) ACTIVE 03/11/2024 ABDOMINAL AORTIC ANEURYSM, W ITHOUT RUPTURE, UNSPECIFIED (I71.40 - ICD-10-CM) ACTIVE 03/11/2024 HYPERLIPIDEMIA, UNSPECIFIED (E78.5 - ICD-10-CM) ACTIVE 03/11/2024 ESSENTIAL (PRIMARY) HYPERTENSION (I10 - ICD-10-CM) ACT ASHELY 03/11/2024 NEUROMUSCULAR DYSFUNCTION OF BLADDER, 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 with home health services [facility] 03/11/2024 06:41 pm EST - 03/28/2024 01:34 pm EST Immunizations Vaccine Date SARS-COV-2 (COVID-19) vaccine, UNSPECIFI ED 04/06/2020 12:00 am EST SARS-COV-2 (COVID-19) vaccine, UNSPECIFI ED 03/06/2020 12:00 am EST COVID-19, mRNA, LNP-S, PF, 50 mcg/0.5 mL 07/08/2021 12:00 am EDT COVID-19, mRNA, LNP-S, PF, 50 mcg/0.5 mL 01/19/2021 12:00 am EST Social History Vital Signs Vital Sign Reading Time Taken temperature 97.8 [degF] 03/28/2024 09:34 am EST temperature 97.8 [degF] 03/28/2024 09:32 am EST temperature 97.6 [degF] 03/27/2024 08:43 am EST temperature 96.8 [degF] 03/27/2024 01:19 am EST temperature 97.2 [degF] 03/26/2024 01:42 am EST temperature 97.8 [degF] 03/25/2024 06:26 pm EST temperature 97.9 [degF] 03/25/2024 09:07 am EST temperature 97.9 [degF] 03/25/2024 09:06 am EST heartrate 113 /min 03/28/2024 09:32 am EST heartrate 99 /min 03/27/2024 08:43 am EST heartrate 100 /min 03/25/2024 06:26 pm EST heartrate 86 /min 03/25/2024 09:06 am EST oxygenSaturation 89 % 03/28/2024 09:3 2 am EST oxygenSaturation 94 % 03/27/2024 08:4 3 am EST oxygenSaturation 98 % 03/25/2024 06:2 6 pm EST oxygenSaturation 97 % 03/25/2024 09:0 6 am EST respirations 18 /min 03/28/2024 09:32 am EST respirations 16 /min 03/27/2024 08:43 am EST respirations 17 /min 03/25/2024 06:26 pm EST respirations 18 /min 03/25/2024 09:06 am EST systolicValue 137 mm[Hg] 03/28/2024 09:32 am EST diastolicValue 88 mm[Hg] 03/28/2024 09:32 am EST systolicValue 112 mm[Hg] 03/27/2024 08:43 am EST diastolicValue 81 mm[Hg] 03/27/2024 08:43 am EST systolicValue 120 mm[Hg] 03/25/2024 06:26 pm EST diastolicValue 90 mm[Hg] 03/25/2024 06:26 pm EST systolicValue 116 mm[Hg] 03/25/2024 09:06 am EST diastolicValue 76 mm[Hg] 03/25/2024 09:06 am EST painLevel 0 {score} 03/27/2024 03:56 pm EST painLevel 0 {score} 03/27/2024 01:19 am EST painLevel 0 {score} 03/26/2024 07:41 pm EST painLevel 5 {score} 03/26/2024 04:35 pm EST painLevel 0 {score} 03/26/2024 04:35 pm EST painLevel 0 {score} 03/26/2024 05:10 am EST painLevel 0 {score} 03/26/2024 01:42 am EST painLevel 3 {score} 03/26/2024 12:24 am EST painLevel 0 {score} 03/25/2024 05:52 pm EST painLevel 0 {score} 03/25/2024 09:08 am EST painLevel 0 {score} 03/25/2024 09:07 am EST painLevel 4 {score} 03/25/2024 08:03 am EST painLevel 0 {score} 03/24/2024 11:57 pm EST painLevel 0 {score} 03/24/2024 09:07 pm EST painLevel 0 {score} 03/24/2024 10:14 am EST painLevel 0 {score} 03/24/2024 09:15 am EST painLevel 5 {score} 03/24/2024 09:10 am EST painLevel 0 {score} 03/24/2024 04:23 am EST weight 155 [lb_av] 03/27/2024 02:50 pm EST
--- OUTSIDE RECORDS SUMMARY | 2024-03-28 16:09 | XMS_ITS | Encounter Summary ---
Author Organization [facility] Address [address] [place] [address] Phone Care Team Providers Care Reimbursement Representative Name Role Phone Nick Bonner MD Primary Care Provider [phone] Encounter Details Date Type Department Care Team (Late st Contact Info) Description 11/10/2021 Telephone [facility] [address] [place] [address] Inocente Martínez MD Social History [...] on filedocumented in this encounter Care Teams Reimbursement Representative Relationship Specialty Start Date End Date Nick Bonner MD [address] [place], [place] [id number], [place] [address] PCP - General Internal Medicine 05/14/20 documented as of this encounter
--- OUTSIDE RECORDS SUMMARY | 2024-03-28 16:09 | XMS_ITS | Data Portability ---
Author Organization [facility], Main Office Address [address] [place] [address] [address] [place] [address] Care Team Providers Care Tie In Machine Operator Name Role Phone CAREONE (NONO UNIT) OTHER [phone] PRITI SYLVESTER Primary Care Provider Assessment Encounter Date Assessment Date Assessment LastModified by Organization Details LastModified Time 03/19/2024 03/19/202403/09 bun=14 cre=0.6 wbc=8.1 hb=11 03/12: na 141, k 4.1, bun 21, creat 0.60, wbc 7.84, hgb 10.5 glord Not available 03/19/2024 09:25:06 03/22/2024 03/22/202403/09 bun=14 cre=0.6 wbc=8.1 hb=11 03/12: na 141, k 4.1, bun 21, creat 0.60, wbc 7.84, hgb 10.5 03/19: na 141, k 5.2, bun 24, creat 0.80, wbc 4.57, hgb 11.2 glord Not available 03/22/2024 11:43:32 03/27/2024 03/27/202403/09 bun=14 cre=0.6 wbc=8.1 hb=11 03/12: na 141, k 4.1, bun 21, creat 0.60, wbc 7.84, hgb 10.5 03/19: na 141, k 5.2, bun 24, creat 0.80, wbc 4.57, hgb 11.2 glord Not available 03/27/2024 12:48:31 03/28/2024 03/28/202403/09 bun=14 cre=0.6 wbc=8.1 hb=11 2: na 141, k 4.1, bun 21, creat 0.60, wbc 7.84, hgb 10.5 03/19: na 141, k 5.2, bun 24, creat 0.80, wbc 4.57, hgb 11.2 glord Not available 03/28/2024 09:25:33 Plan of Treatment Reminders Order Date Submit Date Provider Last Modified By Organization Details Last Modified Time Details Appointments Discharge Summary 2024 09:25A M LEESA LORD Not available Not available Not available Lab None recorded. Referral None recorded. Procedures None recorded. Surgeries None recorded. Imaging None recorded. Medication Orders None recorded. Patient TargetsNo targets recorded. Patient InstructionsNo instructions recorded. Reason for Referral None Reported. Problems Name Problem SNOMED Code Status Onset Date Resolution Date Notes Provider Name and Address Organization Details Recorded Time Idiopathic avascular necrosis of bone Active 2024 Ivanna Gutierrez MD [address] [facility], [address], [place], [address] , [facility] [place] - 2 5 18:57:44 Abdominal aortic aneurysm 940823252 Active 2024 Jonah Khan MD [address] [place] [address], [address], [place], [address] , [facility] [place] - 2 5 15:23:25 Atrial fibrillation 53175404 Active 2024 Jonah Khan MD [address] [facility], [address], [place], [address] , [facility] [place] - 2 5 15:24:30 Chronic kidney disease stage 3A 614422939 Active 2024 Jonah Khan MD [address] [place] [address], [address], [place], [address] , [facility] [place] - 2 5 15:24:38 Chronic obstructive pulmonary disease 42967278 Active 2024 Jonah Khan MD [address] [place] [address] St, [address], [place], [address] , [facility] [place] - 2 5 15:24:43 History of malignant neoplasm of uterine body 633532752 Active 2024 Jonah Khan MD [address] [facility], [address], [place], [address] , [facility] [place] - 2 PC 5 15:24:52 Gastroesophag eal reflux disease without esophagitis 585041741 Active 2024 Jonah Khan MD [address] [facility], [address], [place], [address] , [facility] [place] - 2 PC 5 15:24:57 Essential hypertension 35819653 Active 2024 Jonah Khan MD [address] [facility], [address], [place], [address] , [facility] [place] - 2 PC 5 15:25:03 Mixed hyperlipidemi a 872129770 Active 2024 Jonah Khan MD [address] [facility], [address], [place], [address] , [facility] [place] - 2 PC 5 15:25:10 Neurogenic urinary bladder 077471779 Active 2024 Jonah Khan MD [address] [facility], [address], [place], [address] , [facility] [place] - 2 PC 5 15:25:20 Sick sinus syndrome 50942229 Active 2024 Jonah Khan MD [address] [facility], [address], [place], [address] , [facility] [place] - 2 PC 5 15:25:25 Osteonecrosis of hip 679059180 Active 2024 Not Available [facility] 5 08:55:23 Intestinal obstruction 76219063 Active 2024 Not Available [facility] 5 08:48:53 Recurrent bacterial infection 496430440 Active 2024 Not Available [facility] 5 08:49:58 Hypo-osmolali ty and or hyponatremia 083648801 Active 2024 Not Available [facility] 5 08:50:29 Muscle weakness 95033524 Active 2024 Not Available [facility] 5 08:51:14 Dysphagia 81630388 Active 2024 Not Available [facility] 5 08:51:44 Unsteady when standing 472374090 Active 2024 Not Available [facility] 5 08:52:15 Chronic kidney disease stage 3 259325490 Active 2024 Not Available [facility] 5 08:53:48 Abdominal aortic aneurysm without rupture 27621953 Active 2024 Not Available [facility] 5 08:54:19 Hyperlipidemi a 84838952 Active 2024 Not Available [facility] 5 08:54:20 Iron deficiency anemia 29137962 Active 2024 Not Available [facility] 5 12:58:42 Recurrent depression 004070289 Active 2024 Not Available [facility] [...] 12 hours as needed for nausea/vo miting for 30 Days 04/26 completed Not Available Not Available Not Available [...] Address Organization Details Last Updated DateTime 5 88458.7 8 g 95 /min 18 /min 97.5 [degF] 140 mm[Hg] 105 mm[Hg] Jonah Khan MD [address] [facility] [address], [place], [address], [facility] [place] [facility] 2 PC 5 14:59:02 Social History Question Answer Notes LastModified by Organizat ion Details LastModified Time Tobacco Smoking Status Never Smoker Jonah Khan MD [address] [facility] [address], [place], [address], [facility] [place] [facility] 2 PC 03/12/2024 15:37:56 Do You Have An Advance Directive? No Information not available 03/12/2024 What Is Your Level Of Alcohol Consumption? None Information not available 03/12/2024 What Is Your Code Status? Full Code [email or web address] Information not available 03/12/2024 Sex: Unknown Functional Status None recorded. Mental Status None recorded. Family History Nothing Reported Notes:N/C Medical History No medical history recorded. Gynecological HistoryNo gynecological history recorded. Obstetrics History GPAL:G 0 P 0 0 0 0 Immunizations Vaccine Type Date Status Note Provider Nam e and Address Organization Details Recorded Time SARS-COV-2 (COVID-19) vaccine, UNSPECIFIED 03/06/2020 completed Claudia Reyes [facility] 03/12/2024 15:19:00 SARS-COV-2 (COVID-19) vaccine, UNSPECIFIED 04/06/2020 completed Claudia Reyes [facility] 03/12/2024 15:19:19 SARS-COV-2 (COVID-19) vaccine, UNSPECIFIED 01/19/2021 completed Claduia Reyes [facility] 03/12/2024 15:19:30 SARS-COV-2 (COVID-19) vaccine, UNSPECIFIED 07/08/2021 completed Claudiagiovanna Reyes [facility] 03/12/2024 15:19:37 Past Encounters Encounter ID Performer Location Encounter Start Date Encounter Closed Date Diagnosis/Indication Diagnosis SNOMED-CT Code Diagnosis ICD10 Code Diagnosis Note [id number] Jonah Khan MD [facility] [address] [place] [address] 03/12/2024 14:57:39 03/13/2024 09:59:50 Clostridium difficile colitis 339650094 A04.72 concern for sepsis secondary to c diff underwent treatment then question if colonized at baselinemo nitor for sxcomplete course of PO vanco Acute kidney injury 1466 9001 N17.8 ARF on CRFimprove d with IVFmonitor renal function Idiopathic avascular necrosis of bone 0641238172 M87.852 avascular necrosis left femoral head on imaging was seen by ortho now with plan to f/u for replacemen t Abdominal aortic aneurysm 402548054 I71.43 [facility] Asthenia 04615840 R53.1 PT OT eval and treatmonit or fall risk and need for increased support in community Atrial fibrillation 4943 6004 I48.0 xarelto 20 mg qdmetoprol ol 50 mg bidmonitor for rate controlreq uired IV lopressor in hospital Chronic ki dney disease stage 3A 103038973 N18.31 carrying dx with recent ARFmonitor renal functionav oid nephrotoxi c meds as ablenephro consult prn Chronic ob structive pulmonary disease 34760522 J41.1 added to PMHmonitor utilizatio n of albuterol History of malignant neoplasm of uterine body 739294397 Z85.42 added to PMH Gastroesop hageal reflux disease without esophagitis 223965411 K21.9 pantoprazo le 40 mg qdmonitor for sx relief Essential hypertension 60392478 I10 metoprolol 50 mg bidmonitor bp and need to titrate Mixed hyperlipidemia 267 177067 E78.2 simvastati n 40 mg qdcontinue d Neurogenic urinary bladder 087501916 N31.8 abdi cath and care Sick sinus syndrome 3608 3008 I49.5 hx of with pacer in place [id number] LEESA Lynch at [facility] on [address] [place] [address] 03/19/2024 09:16:20 03/20/2024 09:36:50 Clostridium difficile colitis 506002859 A04.72 stools resolvedmo nitor for recurrent loose stool Acute kidney injury 1466 9001 N17.8 labs pending todaylast labs in range 21/0.60 Idiopathic avascular necrosis of bone 5517797318 M87.852 avascular necrosis left femoral head on imaging was seen by ortho now with plan to f/u for replacemen tcontinue PT OT see HPI Atrial fibrillation 4943 6004 I48.0 xarelto 20 mg qdmetoprol ol 50 mg bidrate controlled at 79 [id number] LEESA Lynch at [facility] on [address] [place] [address] 03/22/2024 11:37:26 03/25/2024 11:02:46 Acute kidney injury 81440496 N17.8 stable for patientlas t labs in range 24/0.80enc ourage PO fluids Idiopathic avascular necrosis of bone 8881169476 M87.852 continue PTPt ambulated short distances up to 30' within room x4 trials, RW, SBA with cues for improved nejcksf440 30: Car transfer scheduled for this date [...] ol 50 mg bidrate controlled at 79 [id number] LEESA Lynch at [facility] on [address] [place] [address] 03/27/2024 12:47:31 03/28/2024 13:18:07 Acute kidney injury 61856727 N17.8 no labs this week for some reason-add cbc bmp tomorrow 03/28 Atrial fibrillation 4943 6004 I48.0 see HPI- had nuclear stress test today, will follow up tomorrow with cardsconti nue amiodarone 125 mg every other day per cardsxarel to 20 mg qdmetoprol ol 50 mg bid Cough 13110021 R05.9 STAT chest xray two viewsadd cbc with bmp tomorrowsw ab for flu and covid nowmonitor resp status Nausea 062805662 R11.0 continue prn compazine and re-eval in 30 days [id number] LEESA Lynch at [facility] on [address] [place] [address] 03/28/2024 09:25:01 03/28/2024 09:40:57 Acute kidney injury 40757826 N17.8 labs pending today Atrial fibrillation 4943 6004 I48.0 see HPI- had nuclear stress test, follow up with cards tomorrowco ntinue amiodarone 125 mg every other day per cardsxarel to 20 mg qdmetoprol ol 50 mg bid Cough 51078611 R05.9 waiting on xray resultsif positive send home with miquel spent greater than 15 minutes discussing postpone of DC with patient and SW, ultimately wants to leave, wrote rx for miquel Nausea 038150346 R11.0 continue prn compazine Idiopathic avascular necrosis of bone 1174906261 M87.852 avascular necrosis left femoral head on imaging was seen by ortho now with plan to f/u for replacemen t Abdominal aortic aneurysm 478387975 I71.43 followed by [facility] vascular Asthenia 93646759 R53.1 improved Chronic ki dney disease stage 3A 853714348 N18.31 carrying dx with recent ARFPCP to follow labs Chronic ob structive pulmonary disease 56182306 J41.1 added to PMH History of malignant neoplasm of uterine body 461604342 Z85.42 added to PMH Gastroesop hageal reflux disease without esophagitis 312423581 K21.9 pantoprazo le 40 mg qd Essential hypertension 71247660 I10 metoprolol 50 mg bid Mixed hyperlipidemia 267 832923 E78.2 simvastati n 40 mg qdcontinue d Neurogenic urinary bladder 496788762 N31.8 abdi cath and care Sick sinus syndrome 3608 3008 I49.5 hx of with pacer in place Health Concerns Section Related Observation LastModified by Organization Detai ls LastModified Time None Recorded Concern Status LastModified by Organization Details LastModified Time None Recorded Advance Directives Directive N: Payers Encounter Date Sequence Insurance Name Policy Number Policy Ruiz Covered Member ID Ruiz Member ID Guarantor Name 03/12/2024 1 [facility] MEDICARE PREFERRED (MEDICARE REPLACEMENT HMO) PRAKASH Jung [id number] Trupti Jung 03/19/2024 1 [facility] MEDICARE PREFERRED (MEDICARE REPLACEMENT HMO) PRAKASH Jung [id number] Trupti Jung 03/22/2024 1 [facility] MEDICARE PREFERRED (MEDICARE REPLACEMENT HMO) PRAKASH Jung [id number] Trupti Jung 03/27/2024 1 [facility] MEDICARE PREFERRED (MEDICARE REPLACEMENT HMO) PRAKASH Jung [id number] Trupti Jung 03/28/2024 1 [facility] MEDICARE PREFERRED (MEDICARE REPLACEMENT HMO) CLARI Trupti Jung [id number] Trupti Jung Notes Date Note Type Note [...] with IVF PMH significant forAAA follow by [facility] penny stage 3copdgerdhx uterine cahldhtnneurogenic bladder with foleySSS s/p pacer admit to facility for continued care and therapy Jonah Khan MD [address] [facility], [address], [place], [address], [facility] [employer] 03/12/2024 15:39:49 03/19/2024 text/html Patient is a [...] is asking for edward byers, will tell FEED MIXER. PMH significant forAAA follow by [facility] sadia francis stage 3copdgerdhx uterine cahldhtnneurogenic bladder with foleySSS s/p pacer LEESA GUADARRAMA [address] [facility], [address], [place], [address], [facility] [place] - 2 03/19/2024 09:25:55 03/22/2024 text/html Patient is a 73 yo male seen today for acute rounding visit. Patient here for rehab due to sepsis secondary to c diff as well as avascular necrosis of left femoral head. Patient went out to cards today for follow up, they recommend to [...] catheter awareness. [facility]x uterine cahldhtnneurogenic bladder with foleySSS s/p pacer LEESA GUADARRAMA [address] [facility], [address], [place], [address], [facility] [employer] 03/22/2024 11:45:17 03/27/2024 text/html Patient is a 73 yo male seen today for acute rounding visit. Patient here for rehab due to sepsis secondary to c diff as well as avascular necrosis of left femoral head. Patient currently on compazine PRN for nausea, nursing reports she took it yesterday and today, as she was spitting up green bile.Patient went out today for nuclear stress test, we were unaware of apt, niece picked her up. She tells me she has to go back tomorrow for more testing to slow down her heart and take pictures.She says she feels ill today, notes coughing up green stuff. PMH significant forAAA [facility] 3copdgerx uterine cahldhtnneurogenic bladder with foleySSS s/p pacer LEESA GUADARRAMA [address] [facility], [address], [place], [address], [facility] [place] - 2 PC 03/27/2024 13:13:15 03/28/2024 text/html Patient is a 73 yo male seen today for discharge summary visit. Patient here for rehab due to sepsis secondary to c diff as well as avascular necrosis of left femoral head. Patient went out yesterday for nuclear stress test, she has follow up today with cards.She was seen yesterday for congested cough and abnormal lung sounds, xray ordered and being done now. Explained to patient that I would like her to stay one more day to monitor for pna, she refuses and wants to leave today. Xray here now, will send home with abx script in case. PMH significant forAAA follow by [facility] fibcrf stage 3copdgerdhx uterine cahldhtnneurogenic bladder with foleySSS s/p pacer LEESA GUADARRAMA [address] [facility], [address], [place], [address], [place] [facility] 03/28/2024 09:40:55 OBGyn Episode No OBEpisode recorded.
--- OUTSIDE RECORDS SUMMARY | 2024-03-28 16:09 | XMS_ITS | Continuity of Care Document ---
Author Organization [facility] [employer] [facility], [facility] Address [address] [place] [address] Care Team Providers Care Educational Psychology Teacher Name Role Phone [facility] (NONO UNIT) OTHER PRITI SYLVESTER Primary Care Provider Assessment Encounter Date Assessment Date Assessment LastModified by Organization Details LastModified Time 03/28/2024 03/28/202403/09 bun=14 cre=0.6 wbc=8.1 hb=11 03/12: na 141, [...] bone Active 2024 Ivanna Gutierrez MD [address], [address], [place], [address] , [facility] [employer] 18:57:44 Abdominal aortic aneurysm 808463656 Active 2024 Jonah Khan MD [address], [address], [place], [address] , [facility] [employer] 5 15:23:25 Atrial fibrillation 73103870 Active 2024 Jonah Khan MD [address], [address], [place], [address] , [employer] 5 15:24:30 Chronic kidney disease stage 3A 197020951 Active 2024 Jonah Khan MD [address], [address], [place], [address] , [facility] 5 15:24:38 Chronic obstructive pulmonary disease 01920941 Active 2024 Jonah Khan MD [address], [address], [place], [address] , [facility] 5 15:24:43 History of malignant neoplasm of uterine body 648279976 Active 2024 Jonah Khan MD [address], [address], [place], [address] , [facility] 5 15:24:52 Gastroesophag eal reflux disease without esophagitis 838060253 Active 2024 Jonah Khan MD [address], [address], [place], [address] , [facility] 5 15:24:57 Essential hypertension 00951572 Active 2024 Jonah Khan MD [address], [address], [place], [address] , [facility] 5 15:25:03 Mixed hyperlipidemi a 056547766 Active 2024 Jonah Khan MD [address], [address], [place], [address] , [facility] 5 15:25:10 Neurogenic urinary bladder 733506710 Active 2024 Jonah Khan MD [address], [address], [place], [address] , [facility] 5 15:25:20 Sick sinus syndrome 68067175 Active 2024 Jonah Khan MD [address], [address], [place], [address] , [facility] - [facility] 5 15:25:25 Osteonecrosis of hip 474388689 Active 2024 Not Available [facility] 5 08:55:23 Intestinal obstruction 90818570 Active 2024 Not Available [facility] 5 08:48:53 Recurrent bacterial infection 091029203 Active 2024 Not Available [facility] 5 08:49:58 Hypo-osmolali ty and or hyponatremia 724431831 Active 2024 Not Available [facility] 5 08:50:29 Muscle weakness 84750719 Active 2024 Not Available [facility] 5 08:51:14 Dysphagia 74561824 Active 2024 Not Available [facility] 5 08:51:44 Unsteady when standing 974127158 Active 2024 Not Available [facility] 5 08:52:15 Chronic kidney disease stage 3 939894038 Active 2024 Not Available [facility] 5 08:53:48 Abdominal aortic aneurysm without rupture 71746836 Active 2024 Not Available [facility] 5 08:54:19 Hyperlipidemi a 00218898 Active 2024 Not Available [facility] 5 08:54:20 Iron deficiency anemia 70129753 Active 2024 Not Available [facility] 5 12:58:42 Recurrent depression 031460206 Active 2024 Not Available [facility] [...] Status Never Smoker Jonah Khan MD [address], [address], [place], [address], [facility] - [facility] 03/12/2024 15:37:56 Do You Have An Advance Directive? [place] [address] Information not available 03/12/2024 What Is Your Level Of Alcohol Consumption? None [facility] Information not available 03/12/2024 What Is Your Code Status? Full Code [place] [id number] Information not available 03/12/2024 Sex: Unknown Functional Status None recorded. Mental Status None recorded. Family History Nothing Reported Notes:N/C Medical History No medical history recorded. Gynecological HistoryNo gynecological history recorded. Obstetrics History GPAL:G 0 P 0 0 0 0 Immunizations Vaccine Type Date Status Note Provider Nam e and Address Organization Details Recorded Time SARS-COV-2 (COVID-19) vaccine, UNSPECIFIED 03/06/2020 completed Claudia Reyes [facility] 03/12/2024 15:19:00 SARS-COV-2 (COVID-19) vaccine, UNSPECIFIED 04/06/2020 completed Claudia Reyes [facility] 03/12/2024 15:19:19 SARS-COV-2 (COVID-19) vaccine, UNSPECIFIED 01/19/2021 completed Claudia Reyes [facility] 03/12/2024 15:19:30 SARS-COV-2 (COVID-19) vaccine, UNSPECIFIED 07/08/2021 completed Claudiagiovanna Reyes [facility] 03/12/2024 15:19:37 Past Encounters Encounter ID Performer Location Encounter Start Date Encounter Closed Date Diagnosis/Indication Diagnosis SNOMED-CT Code Diagnosis ICD10 Code Diagnosis Note [id number] Jonah Khan MD [facility] [address] [place] [address] 03/12/2024 14:57:39 03/13/2024 09:59:50 Clostridium difficile colitis 538299726 A04.72 concern for sepsis secondary to c diff underwent treatment then question if colonized at [facility] for sxcomplete course of PO vanco Acute kidney injury 1466 9001 N17.8 ARF on CRFimprove d with IVFmonitor renal function Idiopathic avascular necrosis of bone 0626499245 M87.852 avascular necrosis left femoral head on imaging was seen by ortho now with plan to f/u for replacemen t Abdominal aortic aneurysm 617034413 I71.43 [facility] Asthenia 27486382 R53.1 PT OT eval and treatmonit or fall risk and need for increased support in community Atrial fibrillation 4943 6004 I48.0 xarelto 20 mg qdmetoprol ol 50 mg bidmonitor for rate controlreq uired IV lopressor in hospital Chronic ki dney disease stage 3A 541213082 N18.31 carrying dx with recent ARFmonitor renal functionav oid nephrotoxi c meds as ablenephro consult prn Chronic ob structive pulmonary disease 63364960 J41.1 added to PMHmonitor utilizatio n of albuterol History of malignant neoplasm of uterine body 895282001 Z85.42 added to PMH Gastroesop hageal reflux disease without esophagitis 834662759 K21.9 pantoprazo le 40 mg qdmonitor for sx relief Essential hypertension 15411599 I10 metoprolol 50 mg bidmonitor bp and need to titrate Mixed hyperlipidemia 267 748004 E78.2 simvastati n 40 mg qdcontinue d Neurogenic urinary bladder 816895300 N31.8 abdi cath and care Sick sinus syndrome 3608 3008 I49.5 hx of with pacer in place [id number] LEESA Lynch at [facility] on [address] [place] [address] 03/19/2024 09:16:20 03/20/2024 09:36:50 Clostridium difficile colitis 907826340 A04.72 stools resolvedmo nitor for recurrent loose stool Acute kidney injury 1466 9001 N17.8 labs pending todaylast labs in range 21/0.60 Idiopathic avascular necrosis of bone 1282571098 M87.852 avascular necrosis left femoral head on imaging was seen by ortho now with plan to f/u for replacemen tcontinue PT OT see HPI Atrial fibrillation 4943 6004 I48.0 xarelto 20 mg qdmetoprol ol 50 mg bidrate controlled at 79 [id number] LEESA Lynch at [facility] on [address] [place] [address] 03/22/2024 11:37:26 03/25/2024 11:02:46 Acute kidney injury 99052746 N17.8 stable for patientlas t labs in range 24/0.80enc ourage PO fluids Idiopathic avascular necrosis of bone 8756106313 M87.852 continue PTPt ambulated short distances up to 30' within room x4 trials, RW, SBA with cues for improved [id number] 30: Car transfer scheduled for this date [...] ol 50 mg bidrate controlled at 79 [id number] LEESA LORD Lynch at [facility] on [address] [place] [address] 03/27/2024 12:47:31 03/28/2024 13:18:07 Acute kidney injury 88871735 N17.8 no labs this week for some reason-add cbc bmp tomorrow 03/28 Atrial fibrillation 4943 6004 I48.0 see HPI- had nuclear stress test today, will follow up tomorrow with cardsconti britneye amiodarone 125 mg every other day per cardsxarel to 20 mg qdmetoprol ol 50 mg bid Cough 20317456 R05.9 STAT chest xray two viewsadd cbc with bmp tomorrowsw ab for flu and covid nowmonitor resp status Nausea 899208665 R11.0 continue prn compazine and re-eval in 30 days [id number] LEESA GUADARRAMA Syed at [facility] on [address] [place] [address] 03/28/2024 09:25:01 03/28/2024 09:40:57 Acute kidney injury 18548752 N17.8 labs pending today Atrial fibrillation 4943 6004 I48.0 see HPI- had nuclear stress test, follow up with cards tomorrowco ntinue amiodarone 125 mg every other day per cardsxarel to 20 mg qdmetoprol ol 50 mg bid Cough 21295745 R05.9 waiting on xray resultsif positive send home with miquel spent greater than 15 minutes discussing postpone of DC with patient and SW, ultimately wants to leave, wrote rx for miquel Nausea 702518625 R11.0 continue prn compazine Idiopathic avascular necrosis of bone 5357082604 M87.852 avascular necrosis left femoral head on imaging was seen by ortho now with plan to f/u for replacemen t Abdominal aortic aneurysm 547525125 I71.43 [facility] Asthenia 78824231 R53.1 improved Chronic ki dney disease stage 3A 135965225 N18.31 carrying dx with recent ARFPCP to follow labs Chronic ob structive pulmonary disease 97669908 J41.1 added to PMH History of malignant neoplasm of uterine body 166421714 Z85.42 added to PMH Gastroesop hageal reflux disease without esophagitis 262735499 K21.9 pantoprazo le 40 mg qd Essential hypertension 67029902 I10 metoprolol 50 mg bid Mixed hyperlipidemia 267 350571 E78.2 simvastati n 40 mg qdcontinue d Neurogenic urinary bladder 369060866 N31.8 abdi cath and care Sick sinus syndrome 3608 3008 I49.5 hx of with pacer in place Health Concerns Section Related Observation LastModified by Organization Detai ls LastModified Time None Recorded Concern Status LastModified by Organization Details LastModified Time None Recorded Payers Encounter Date Sequence Insurance Name Policy Number Policy Ruiz Covered Member ID Ruzi Member ID Guarantor Name 03/28/2024 1 [facility] - MEDICARE PREFERRED (MEDICARE REPLACEMENT HMO) PRAKASH Jung [id number] Trupti Jung Notes Date Note Type Note Provider Name and Address Organization Details Recorded Time 03/28/2024 text/html Patient is a 73 yo [...] in case. PMH significant forAAA follow by [facility] vascular fibcrf stage 3copdgerdhx uterine cahldhtnneurogenic bladder with foleySSS s/p pacer LEESA GUADARRAMA [address], [address], [place], [address], [facility] - [employer] 03/28/2024 09:40:55 OBGyn Episode No OBEpisode recorded.
--- OUTSIDE RECORDS SUMMARY | 2024-03-28 16:09 | XMS_ITS | Clinical Summary ---
Author Organization [facility] Address [address] [place] [address] Care Team Providers Care Hydrochloric Acid Operator Name Role Phone Elena Jacobo [employer] ASSEMBLY MACHINE TENDER Primary Care Provider Allergies No known active [...] 2 (two) times a day. Active Pancrelipase, Grl-Tjnp-Dfgz, (Creon) 8182-0578 units Cap Particles Take 1 capsule by [...] this topic Medical Devices Implanted Type Area Auto Clutch Specialist Device Identifier Shelf Expiration Date Model / Serial / Lot Pacemaker Pacemaker Advance Directives * Full Code (Latest Code Status on File) Date Activated Date Inactivated Comments 12/11/2020 8:56 AM Care Teams Hydrochloric Acid Operator Relationship Specialty Start Date End Date Elena Jacobo NP [address] [place] [id number] PCP - General Adult Health - ELPIDIO/JALEN/GABBY/TARIK 12/11/20
--- OUTSIDE RECORDS SUMMARY | 2024-03-28 16:10 | XMS_ITS | Continuity of Care Document ---
Author Organization [facility] [employer] [facility], [facility] Address [address] [place] [address] Care Team Providers Care Planer Chain Offbearer Name Role Phone [facility]ARE[facility] (NONO UNIT) OTHER [phone] PRITI SYLVESTER Primary Care Provider Assessment Encounter Date Assessment Date Assessment LastModified by Organization Details LastModified Time 03/27/2024 03/27/202403/09 bun=14 cre=0.6 wbc=8.1 hb=11 03/12: na 141, k 4.1, bun 21, creat 0.60, wbc 7.84, hgb 10.5 03/19: na 141, k 5.2, bun 24, creat 0.80, wbc 4.57, hgb 11.2 glord Not available 03/27/2024 12:48:31 Plan of Treatment Reminders Order Date Submit [...] Active 2024 Ivanna Gutierrez MD [address], [address], [place], [address] , [facility] [employer] 18:57:44 Abdominal aortic aneurysm 620628513 Active 2024 Jonah Khan MD [address], [address], [place], [address] , [facility] [employer] 5 15:23:25 Atrial fibrillation 59566230 Active 2024 Jonah Khan MD [address], [address], [place], [address] , [facility] 5 15:24:30 Chronic kidney disease stage 3A 753083136 Active 2024 Jonah Khan MD [address], [address], [place], [address] , [facility] 5 15:24:38 Chronic obstructive pulmonary disease 50725055 Active 2024 Jonah Khan MD [address], [address], [place], [address] , [facility] 5 15:24:43 History of malignant neoplasm of uterine body 225851671 Active 2024 Jonah Khan MD [address], [address], [place], [address] , [facility] 5 15:24:52 Gastroesophag eal reflux disease without esophagitis 392100891 Active 2024 Jonah Khan MD [address], [address], [place], [address] , [facility] 5 15:24:57 Essential hypertension 02481211 Active 2024 Jonah Khan MD [address], [address], [place], [address] , [facility] 5 15:25:03 Mixed hyperlipidemi a 772251764 Active 2024 Jonah Khan MD [address], [address], [place], [address] , [facility] 5 15:25:10 Neurogenic urinary bladder 839544720 Active 2024 Jonah Khan MD [address], [address], [place], [address] , [facility] 5 15:25:20 Sick sinus syndrome 98759575 Active 2024 Jonah Khan MD [address], [address], [place], [address] , [facility] - [facility] 5 15:25:25 Osteonecrosis of hip 326587301 Active 2024 Not Available [facility] 5 08:55:23 Intestinal obstruction 39295175 Active 2024 Not Available [facility] 5 08:48:53 Recurrent bacterial infection 898343982 Active 2024 Not Available [facility] 5 08:49:58 Hypo-osmolali ty and or hyponatremia 243327315 Active 2024 Not Available [facility] 5 08:50:29 Muscle weakness 60888182 Active 2024 Not Available [facility] 5 08:51:14 Dysphagia 16944795 Active 2024 Not Available [facility] 5 08:51:44 Unsteady when standing 966031163 Active 2024 Not Available [facility] 5 08:52:15 Chronic kidney disease stage 3 055830554 Active 2024 Not Available [facility] 5 08:53:48 Abdominal aortic aneurysm without rupture 65729934 Active 2024 Not Available [facility] 5 08:54:19 Hyperlipidemi a 83380446 Active 2024 Not Available [facility] 5 08:54:20 Iron deficiency anemia 00887672 Active 2024 Not Available [facility] 5 12:58:42 Recurrent depression 262605803 Active 2024 Not Available [facility] and [...] Never Smoker Jonah Khan MD [address], [address], [place], [address], [facility] - [facility] 03/12/2024 15:37:56 Do You Have An Advance Directive? No [place] [address] Information not available 03/12/2024 What Is Your Level Of Alcohol Consumption? None [facility] Information not available 03/12/2024 What Is Your Code Status? Full Code [place] [address] Information not available 03/12/2024 Sex: Unknown Functional Status None recorded. Mental Status None recorded. Family History Nothing Reported Notes:N/C Medical History No medical history recorded. Gynecological HistoryNo gynecological history recorded. Obstetrics History GPAL:G 0 P 0 0 0 0 Immunizations Vaccine Type Date Status Note Provider Nam e and Address Organization Details Recorded Time SARS-COV-2 (COVID-19) vaccine, UNSPECIFIED 03/06/2020 completed Claudia Reyes [facility] 03/12/2024 15:19:00 SARS-COV-2 (COVID-19) vaccine, UNSPECIFIED 04/06/2020 completed Claudia Reyes [facility] 03/12/2024 15:19:19 SARS-COV-2 (COVID-19) vaccine, UNSPECIFIED 01/19/2021 completed Claudia Reyes [facility] 03/12/2024 15:19:30 SARS-COV-2 (COVID-19) vaccine, UNSPECIFIED 07/08/2021 completed Claudiagiovanna Reyes [facility] 03/12/2024 15:19:37 Past Encounters Encounter ID Performer Location Encounter Start Date Encounter Closed Date Diagnosis/Indication Diagnosis SNOMED-CT Code Diagnosis ICD10 Code Diagnosis Note [id number] Jonah Khan MD [facility] [address] [place] [address] 03/12/2024 14:57:39 03/13/2024 09:59:50 Clostridium difficile colitis 010834325 A04.72 concern for sepsis secondary to c diff underwent treatment then question if colonized at baselinemo nitor for sxcomplete course of PO vanco Acute kidney injury 1466 9001 N17.8 ARF on CRFimprove d with IVFmonitor renal function Idiopathic avascular necrosis of bone 2762050711 M87.852 avascular necrosis left femoral head on imaging was seen by ortho now with plan to f/u for replacemen t Abdominal aortic aneurysm 520674564 I71.43 [facility] vascularad ded to PMH Asthenia 40483199 R53.1 PT OT eval and treatmonit or fall risk and need for increased support in community Atrial fibrillation 4943 6004 I48.0 xarelto 20 mg qdmetoprol ol 50 mg bidmonitor for rate controlreq uired IV lopressor in hospital Chronic ki dney disease stage 3A 143515849 N18.31 carrying dx with recent ARFmonitor renal functionav oid nephrotoxi c meds as ablenephro consult prn Chronic ob structive pulmonary disease 48968041 J41.1 added to PMHmonitor utilizatio n of albuterol History of malignant neoplasm of uterine body 950285738 Z85.42 added to PMH Gastroesop hageal reflux disease without esophagitis 695609704 K21.9 pantoprazo le 40 mg qdmonitor for sx relief Essential hypertension 30910846 I10 metoprolol 50 mg bidmonitor bp and need to titrate Mixed hyperlipidemia 267 294334 E78.2 simvastati n 40 mg qdcontinue d Neurogenic urinary bladder 364522156 N31.8 abdi cath and care Sick sinus syndrome 3608 3008 I49.5 hx of with pacer in place [id number] LEESA Lynch at [facility] on [address] [place] [address] 03/19/2024 09:16:20 03/20/2024 09:36:50 Clostridium difficile colitis 411641505 A04.72 stools resolvedmo nitor for recurrent loose stool Acute kidney injury 1466 9001 N17.8 labs pending todaylast labs in range 21/0.60 Idiopathic avascular necrosis of bone 4603173050 M87.852 avascular necrosis left femoral head on imaging was seen by ortho now with plan to f/u for replacemen tcontinue PT OT see HPI Atrial fibrillation 4943 6004 I48.0 xarelto 20 mg qdmetoprol ol 50 mg bidrate controlled at 79 [id number] LEESA Lynch at [facility] on [address] [place] [address] 03/22/2024 11:37:26 03/25/2024 11:02:46 Acute kidney injury 57319360 N17.8 stable for patientlas t labs in range 24/0.80enc ourage PO fluids Idiopathic avascular necrosis of bone 2714546527 M87.852 continue PTPt ambulated short distances up to 30' within room x4 trials, RW, SBA with cues for improved 30: Car transfer scheduled for this date [...] ol 50 mg bidrate controlled at 79 [id number] LEESA Lynch at [facility] on [address] [facility] [place] [address] 03/27/2024 12:47:31 03/28/2024 13:18:07 Acute kidney injury 64478674 N17.8 no labs this week for some reason-add cbc bmp tomorrow 03/28 Atrial fibrillation 4943 6004 I48.0 see HPI- had nuclear stress test today, will follow up tomorrow with eli lockhart amiodarone 125 mg every other day per cardsxarel to 20 mg qdmetoprol ol 50 mg bid Cough 98194633 R05.9 STAT chest xray two viewsadd cbc with bmp tomorrowsw ab for flu and covid nowmonitor resp status Nausea 591145313 R11.0 continue prn compazine and re-eval in 30 days Health Concerns Section Related Observation LastModified by Organization Detai ls LastModified Time None Recorded Concern Status LastModified by Organization Details LastModified Time None Recorded Payers Encounter Date Sequence Insurance Name Policy Number Policy Ruiz Covered Member ID Ruiz Member ID Guarantor Name 03/27/2024 1 [facility] - MEDICARE PREFERRED (MEDICARE REPLACEMENT HMO) PRAKASH Jung [id number] Trupti Jung Notes Date Note Type Note Provider Name and Address Organization Details Recorded Time 03/27/2024 text/html Patient is a 73 yo [...] green stuff. PMH significant forAAA follow by [facility] vasculara fibcrf stage 3copdgerdhx uterine cahldhtnneurogenic bladder with foleySSS s/p pacer LESEA GUADARRAMA [address], [address], [place], [address], [facility] - [facility] 03/27/2024 13:13:15 OBGyn Episode No OBEpisode recorded.
--- OUTSIDE RECORDS SUMMARY | 2024-03-28 16:10 | XMS_ITS | Continuity of Care Document ---
Author Organization [facility], [facility] Address [address] [place] [address] Care Team Providers Care Candy Depositing Machine Operator Name Role Phone [facility] (NONO UNIT) OTHER [phone] PRITI SYLVESTER Primary Care Provider Assessment [...] bone Active 2024 Ivanna Gutierrez MD [address] [facility], [address], [place], [address] , [facility] [employer] 5 18:57:44 Abdominal aortic aneurysm 565588381 Active 2024 Jonah Khan MD [address] [facility], [address], [place], [address] , [facility] [employer] 5 15:23:25 Atrial fibrillation 43825643 Active 2024 Jonah Khan MD [address], [address], [place], [address] , [facility] 5 15:24:30 Chronic kidney disease stage 3A 051919670 Active 2024 Jonah Khan MD [address], [address], [place], [address] , [facility] 5 15:24:38 Chronic obstructive pulmonary disease 42728325 Active 2024 Jonah Khan MD [address], [address], [place], [address] , [facility] 5 15:24:43 History of malignant neoplasm of uterine body 125377893 Active 2024 Jonah Khan MD [address], [address], [place], [address] , [facility] 5 15:24:52 Gastroesophag eal reflux disease without esophagitis 943969992 Active 2024 Jonah Khan MD [address], [address], [place], [address] , [facility] 5 15:24:57 Essential hypertension 47887621 Active 2024 Jonah Khan MD [address], [address], [place], [address] , [facility] 5 15:25:03 Mixed hyperlipidemi a 328663939 Active 2024 Jonah Khan MD [address], [address], [place], [address] , [facility] 5 15:25:10 Neurogenic urinary bladder 311441192 Active 2024 Jonah Khan MD [address], [address], [place], [address] , [facility] 5 15:25:20 Sick sinus syndrome 78033197 Active 2024 Jonah Khan MD [address], [address], [place], [address] , [facility] 5 15:25:25 Osteonecrosis of hip 500181466 Active 2024 Not Available [facility] 5 08:55:23 Intestinal obstruction 80994463 Active 2024 Not Available [facility] 5 08:48:53 Recurrent bacterial infection 987221588 Active 2024 Not Available [facility] 5 08:49:58 Hypo-osmolali ty and or hyponatremia 584768907 Active 2024 Not Available [facility] 5 08:50:29 Muscle weakness 48113394 Active 2024 Not Available [facility] 5 08:51:14 Dysphagia 93033611 Active 2024 Not Available [facility] 5 08:51:44 Unsteady when standing 870924068 Active 2024 Not Available [facility] 5 08:52:15 Chronic kidney disease stage 3 141303037 Active 2024 Not Available [facility] 5 08:53:48 Abdominal aortic aneurysm without rupture 65285224 Active 2024 Not Available [facility] 5 08:54:19 Hyperlipidemi a 38441149 Active 2024 Not Available [facility] 5 08:54:20 Iron deficiency anemia 45922857 Active 2024 Not Available [facility] 5 12:58:42 Recurrent depression 121328374 Active 2024 Not Available [facility] [...] Status Never Smoker Jonah Khan MD [address] [facility], [address], [place], [address], [facility] 03/12/2024 15:37:56 Do You Have An Advance Directive? [email or web address] [id number] Information not available 03/12/2024 What Is Your Level Of Alcohol Consumption? None sturg[place] Information not available 03/12/2024 What Is Your Code Status? Full Code [email or web address] Information not available 03/12/2024 Sex: Unknown Functional Status None recorded. Mental Status None recorded. Family History Nothing Reported Notes:N/C Medical History No medical history recorded. Gynecological HistoryNo gynecological history recorded. Obstetrics History GPAL:G 0 P 0 0 0 0 Immunizations Vaccine Type Date Status Note Provider Nam e and Address Organization Details Recorded Time SARS-COV-2 (COVID-19) vaccine, UNSPECIFIED 03/06/2020 completed Claudia Reyes [facility] 03/12/2024 15:19:00 SARS-COV-2 (COVID-19) vaccine, UNSPECIFIED 04/06/2020 completed Claudia Reyes [facility] 03/12/2024 15:19:19 SARS-COV-2 (COVID-19) vaccine, UNSPECIFIED 01/19/2021 completed Claudia Reyes [facility] 03/12/2024 15:19:30 SARS-COV-2 (COVID-19) vaccine, UNSPECIFIED 07/08/2021 completed Claudiagiovanna Reyes [facility] 03/12/2024 15:19:37 Past Encounters Encounter ID Performer Location Encounter Start Date Encounter Closed Date Diagnosis/Indication Diagnosis SNOMED-CT Code Diagnosis ICD10 Code Diagnosis Note [id number] Jonah Khan MD [facility] [address] [place] [address] 03/12/2024 14:57:39 03/13/2024 09:59:50 Clostridium difficile colitis 774197641 A04.72 concern for sepsis secondary to c diff underwent treatment then question if colonized at [facility] for sxcomplete course of PO vanco Acute kidney injury 1466 9001 N17.8 ARF on CRFimprove d with IVFmonitor renal function Idiopathic avascular necrosis of bone 0780791601 M87.852 avascular necrosis left femoral head on imaging was seen by ortho now with plan to f/u for replacemen t Abdominal aortic aneurysm 259405494 I71.43 [facility] PMH Asthenia 03440249 R53.1 PT OT eval and treatmonit or fall risk and need for increased support in community Atrial fibrillation 4943 6004 I48.0 xarelto 20 mg qdmetoprol ol 50 mg bidmonitor for rate controlreq uired IV lopressor in hospital Chronic ki dney disease stage 3A 991592708 N18.31 carrying dx with recent ARFmonitor renal functionav oid nephrotoxi c meds as ablenephro consult prn Chronic ob structive pulmonary disease 66365812 J41.1 added to PMHmonitor utilizatio n of albuterol History of malignant neoplasm of uterine body 707977479 Z85.42 added to PMH Gastroesop hageal reflux disease without esophagitis 431483173 K21.9 pantoprazo le 40 mg qdmonitor for sx relief Essential hypertension 83806441 I10 metoprolol 50 mg bidmonitor bp and need to titrate Mixed hyperlipidemia 267 425362 E78.2 simvastati n 40 mg qdcontinue d Neurogenic urinary bladder 221666307 N31.8 abdi cath and care Sick sinus syndrome 3608 3008 I49.5 hx of with pacer in place [id number] LEESA Lynch at [facility] on [address] [place] [address] 03/19/2024 09:16:20 03/20/2024 09:36:50 Clostridium difficile colitis 064008226 A04.72 stools resolvedmo nitor for recurrent loose stool Acute kidney injury 1466 9001 N17.8 labs pending todaylast labs in range 21/0.60 Idiopathic avascular necrosis of bone 9885691120 M87.852 avascular necrosis left femoral head on imaging was seen by ortho now with plan to f/u for replacemen tcontinue PT OT see HPI Atrial fibrillation 4943 6004 I48.0 xarelto 20 mg qdmetoprol ol 50 mg bidrate controlled at 79 [id number] LEESA Lynch at [facility] on [address] [place] [address] 03/22/2024 11:37:26 03/25/2024 11:02:46 Acute kidney injury 53388191 N17.8 stable for patientlas t labs in range 24/0.80enc ourage PO fluids Idiopathic avascular necrosis of bone 7522262659 M87.852 continue PTPt ambulated short distances up to 30' within room x4 trials, RW, SBA with cues for improved [id number] 30: Car transfer scheduled for this date [...] Ruiz Member ID Guarantor Name 03/22/2024 1 [facility] - MEDICARE PREFERRED (MEDICARE REPLACEMENT HMO) CLARIKESHAWN Trupti Jung [id number] 01 Trupti Jung Notes Date Note Type Note Provider Name and Address Organization Details Recorded Time 03/22/2024 text/html Patient is a 73 yo male seen today for acute rounding visit. Patient here for rehab due to sepsis secondary to c diff as well as avascular necrosis of left femoral head. Patient went out to [facility] today for follow up, they recommend to [...] catheter awareness. PMH significant forAAA follow by [facility] vascular fibcrf stage 3copdgerdhx uterine cahldhtnneurogenic bladder with foleySSS s/p pacer LEESA GUADARRAMA [address] [place] [address], [address], [place], [address], [place] - [employer] 03/22/2024 11:45:17 OBGyn Episode No OBEpisode recorded.
--- OUTSIDE RECORDS SUMMARY | 2024-03-28 16:10 | XMS_ITS | Clinical Summary ---
Author Organization [facility] Address [address] [place] [address] Phone Care Team Providers Care Stable Hand Name Role Phone Nick Bonner MD Primary Care Provider [phone] Allergies No known active allergies Medications ascorbic [...] mg by mouth daily 06/01/2020 Active pancrelipase, Kgl-Lqoc-Pnda, (Creon) 0348-6803 units capsule TAKE 1 CAPSULE BY MOUTH [...] patient's age to complete this topic Insurance [facility] Care Teams Stable Hand Relationship Specialty Start Date End Date Nick Bonner MD [address] [place] [id number] PCP - General Internal Medicine 05/14/20
--- OUTSIDE RECORDS SUMMARY | 2024-03-28 16:10 | XMS_ITS | Continuity of Care Document ---
Author Organization [facility], [facility] Address [address] [place] [address] Care Team Providers Care Financial Institution Manager Name Role Phone [facility] (NONO UNIT) OTHER [phone] PRITI SYLVESTER Primary Care Provider [phone] Assessment No assessment recorded. Plan of Treatment Reminders Order Date Submit [...] of bone Active 2024 Ivanna Gutierrez MD [facility] [address], [place], [address] , [facility] 5 18:57:44 Abdominal aortic aneurysm 779360202 Active 2024 Jonah Khan MD [facility] , [address], [place], [address] , [facility] [employer] 5 15:23:25 Atrial fibrillation 89913002 Active 2024 Jonah Khan MD [facility] , [address], [place], [address] , [facility] [employer] 5 15:24:30 Chronic kidney disease stage 3A 998215950 Active 2024 Jonah Khan MD [address] , [address], [place], [address] , [facility] [employer] 5 15:24:38 Chronic obstructive pulmonary disease 63279664 Active 2024 Jonah Khan MD [address], [address], [place], [address] , [facility] 5 15:24:43 History of malignant neoplasm of uterine body 789885857 Active 2024 Jonah Khan MD [address], [address], [place], [address] , [facility] 5 15:24:52 Gastroesophag eal reflux disease without esophagitis 385274967 Active 2024 Jonah Khan MD [address], [address], [place], [address] , [facility] 5 15:24:57 Essential hypertension 83084021 Active 2024 Jonah Khan MD [address] , [address], [place], [address] , [facility] 5 15:25:03 Mixed hyperlipidemi a 340958295 Active 2024 Jonah Khan MD [address], [address], [place], [address] , [facility] 5 15:25:10 Neurogenic urinary bladder 679809538 Active 2024 Jonah Khan MD [address], [address], [place], [address] , [facility] 5 15:25:20 Sick sinus syndrome 59847711 Active 2024 Jonah Khan MD [address], [address], [place], [address] , [facility] 5 15:25:25 Osteonecrosis of hip 854322278 Active 2024 Not Available [facility] 5 08:55:23 Intestinal obstruction 20151571 Active 2024 Not Available [facility] 5 08:48:53 Recurrent bacterial infection 542595693 Active 2024 Not Available [facility] 5 08:49:58 Hypo-osmolali ty and or hyponatremia 069990362 Active 2024 Not Available [facility] 5 08:50:29 Muscle weakness 22938049 Active 2024 Not Available [facility] 5 08:51:14 Dysphagia 38548550 Active 2024 Not Available [facility] 5 08:51:44 Unsteady when standing 412084065 Active 2024 Not Available [facility] 5 08:52:15 Chronic kidney disease stage 3 708057807 Active 2024 Not Available [facility] 5 08:53:48 Abdominal aortic aneurysm without rupture 79164148 Active 2024 Not Available [facility] 5 08:54:19 Hyperlipidemi a 48529120 Active 2024 Not Available [facility] 5 08:54:20 Iron deficiency anemia 37863622 Active 2024 Not Available [facility] 5 12:58:42 Recurrent depression 145963157 Active 2024 Not Available [facility] [...] Address Organization Details Last Updated DateTime 5 74041.7 8 g 95 /min 18 /min 97.5 [degF] 140 mm[Hg] 105 mm[Hg] Jonah Khan MD [address] [facility], [address], [place], [address], [facility] 5 14:59:02 Social History Question Answer Notes LastModified by Organizat ion Details LastModified Time Tobacco Smoking Status Never Smoker Jonah Khan MD [address] [facility], [address], [place], [address], [facility] 03/12/2024 15:37:56 Do You Have An [...] (COVID-19) vaccine, UNSPECIFIED 03/06/2020 completed Claudia Reyes [facility] 03/12/2024 15:19:00 SARS-COV-2 (COVID-19) vaccine, UNSPECIFIED 04/06/2020 completed Claudia Reyes [facility] 03/12/2024 15:19:19 SARS-COV-2 (COVID-19) vaccine, UNSPECIFIED 01/19/2021 completed Claudia Eric [facility] 03/12/2024 15:19:30 SARS-COV-2 (COVID-19) vaccine, UNSPECIFIED 07/08/2021 completed [employer] [facility] 03/12/2024 15:19:37 Past Encounters Encounter ID Performer Location Encounter Start Date Encounter Closed Date Diagnosis/Indication Diagnosis SNOMED-CT Code Diagnosis ICD10 Code Diagnosis Note [id number] Jonah Khan MD [facility] [address] [place] [address] 03/12/2024 14:57:39 03/13/2024 09:59:50 Clostridium difficile colitis 056070557 A04.72 concern for sepsis secondary to c diff underwent treatment then question if colonized at [facility] for sxcomplete course of PO vanco Acute kidney injury 1466 9001 N17.8 ARF on CRFimprove d with IVFmonitor renal function Idiopathic avascular necrosis of bone 9058222588 M87.852 avascular necrosis left femoral head on imaging was seen by ortho now with plan to f/u for replacemen t Abdominal aortic aneurysm 642811371 I71.43 [facility] to [facility] Asthenia 60825051 R53.1 PT OT eval and treatmonit or fall risk and need for increased support in community Atrial fibrillation 4943 6004 I48.0 xarelto 20 mg qdmetoprol ol 50 mg bidmonitor for rate controlreq uired IV lopressor in hospital Chronic ki dney disease stage 3A 291476664 N18.31 carrying dx with recent ARFmonitor renal functionav oid nephrotoxi c meds as ablenephro consult prn Chronic ob structive pulmonary disease 54170473 J41.1 added to PMHmonitor utilizatio n of albuterol History of malignant neoplasm of uterine body 059854416 Z85.42 added to PMH Gastroesop hageal reflux disease without esophagitis 649142489 K21.9 pantoprazo le 40 mg qdmonitor for sx relief Essential hypertension 34407576 I10 metoprolol 50 mg bidmonitor bp and need to titrate Mixed hyperlipidemia 267 979401 E78.2 simvastati n 40 mg qdcontinue d Neurogenic urinary bladder 943617070 N31.8 abdi cath and care Sick sinus syndrome 3608 3008 I49.5 hx of with pacer in place Health Concerns Section Related Observation LastModified by Organization Detai ls LastModified Time None Recorded Concern Status LastModified by Organization Details LastModified Time None Recorded Payers Encounter Date Sequence Insurance Name Policy Number Policy Ruiz Covered Member ID Ruiz Member ID Guarantor Name 03/12/2024 1 [facility] - MEDICARE PREFERRED (MEDICARE REPLACEMENT HMO) PRAKASH Jung [id number] Trupti Jung Notes Date Note Type [...] with IVF PMH significant forAAA follow by [facility] vascular fibcrf stage 3copdgerdhx uterine cahldhtnneurogenic bladder with foleySSS s/p pacer admit to facility for continued care and therapy Jonah Khan MD [address] [place] [address], [address], [place], [address], [facility] 03/12/2024 15:39:49 OBGyn Episode No OBEpisode recorded.
[2024-03-28 16:58] LABS: Alanine Aminotransferase 16 U/L (0-31); Albumin Level 3.3 g/dL (3.5-5.0); Alkaline Phosphatase 114 U/L (39-117); Anion Gap 15 (12-20); Aspartate Amino Transferase 16 U/L (5-31); Bilirubin Total 0.2 mg/dL (0.0-1.0); Blood Urea Nitrogen 20 mg/dL (9-16); Calcium 9.2 mg/dL (8.4-10.2); Carbon Dioxide 21 mmol/L (22-29); Chloride 107 mmol/L (96-108); Digoxin 0.5 ng/mL (0.8-2.0); Estimated Glomerular Filt Rate > 60; Glucose Random 108 mg/dL (60-115); Magnesium 1.6 mg/dL (1.6-2.6); Potassium 5.5 mmol/L (3.3-5.1); Sodium 137 mmol/L (135-145); Total Protein 6.9 g/dL (6.5-8.0)
== END 2024-03-28 15:07 | disposition home or self-care (01) ==
LOC: HO.LAB 15:06
PROVIDERS: Internal Medicine Gastroenterology; PCP Internal Medicine; Visit Provider Nurse Practitioner Family
DX: Z13.89 Encounter for screening for other disorder (principal)
CPT/HCPCS: 36415; 80053; 80162; 83735

== ENCOUNTER 2024-03-29 14:58 | Inpatient (IN) | payer MEDICARE, SELFPAY ==
[2024-03-29] VITALS (10 sets, daily range): BP systolic 102–127; BP diastolic 44–79; PULSE 100–113; RESP 18–28; TEMP 36.7–36.9; O2SAT 92–98; BMI 24.2
--- NOTE | ~2024-03-29 | CT_ITS ---
CLINICAL HISTORY: multiple falls, weakness CT cervical spine without contrast Comparison: 02/28/2024 Findings: Vertebral alignment is within normal limits. Multilevel degenerative disc disease and facet osteoarthritis. No significant central canal stenosis. No acute fractures or dislocations. No acute findings on limited view of the intracranial contents. Small calcification within the left lobe of the thyroid gland. Partial visualization of a pacemaker. Partial visualization of a focus of ground-glass opacity within the posterior aspect of the right lung apex. IMPRESSION: 1. No acute cervical spine fracture. 2. Partial visualization of a focus of infiltrate within the right upper lobe. This document has been electronically signed by: Erin Watkins MD on 03/29/2024 17:50:13
--- NOTE | ~2024-03-29 | CT_ITS ---
CLINICAL HISTORY: multiple falls, R ant lower rib pain CT chest without contrast Comparison: CT/SR - CT ABDOMEN PELVIS WO IV CON - 02/28/24 21:04 EST Findings: Normal heart size. Moderate coronary artery calcification. A cardiac pacemaker is present. Small calcification within the left lobe of the thyroid gland. There is a focus of consolidation within the right upper lobe. Mild ground-glass opacities within the lingula. No pleural effusion or pneumothorax. Partial visualization of an infrarenal abdominal aortic aneurysm. At visualized levels, the aneurysm measures up to 5.1 x 5.2 cm, unchanged since the prior study. There are multiple chronic healed rib fractures. There is no acute displaced fracture. IMPRESSION: 1. There is a focus of consolidation within the right upper lobe, likely secondary to pneumonia. Contusion not excluded. Masslike contours are present. Recommend follow-up to resolution. 2. Mild ground-glass opacities within the lingula may represent an area of interstitial infiltrate or atelectasis. This document has been electronically signed by: Erin Watkins MD on 03/29/2024 17:51:03
--- NOTE | ~2024-03-29 | CT_ITS ---
CLINICAL HISTORY: multiple falls, weakness CT head without contrast Comparison: CT/SR - CT HEAD/BRAIN WO IV CON - 02/28/24 20:59 EST Findings: Involutional change and nonspecific white matter hypodensity. Tiny chronic lacunar infarct within the left basal ganglia without change. No intracranial mass, midline shift, hydrocephalus, or acute hemorrhage. Orbits, paranasal sinuses, and mastoid air cells are unremarkable. No skull fracture Impression: 1. No acute findings This document has been electronically signed by: Erin Watkins MD on 03/29/2024 17:46:01
--- NOTE | 2024-03-29 15:37 | ED_ITS ---
HPI - General Adult General Chief complaint: General Medical Stated complaint: FFT, WEAKNESS PER EMS Time Seen by Provider: 03/29/24 15:10 Source: patient and EMS Mode of arrival: EMS Limitations: no limitations History of Present Illness ED Provider: Gladis Rivera NP HPI narrative: Patient is a 73 year old female with past medical history of atrial fibrillation on Xarelto, CKD stage 3, AAA, COPD not on supplemental oxygen, GERD, history of uterine cancer, hyperlipidemia, hypertension, chronic indwelling Abdi catheter due to neurogenic bladder, sick sinus syndrome with pacemaker in situ presents emergency department for evaluation of weakness, multiple falls since [facility]. Reports that she does not feel safe to be home alone, she states she did not feel ready to be discharged from rehab. She admits that she lives with her who has advanced COPD, and her son but he works all throughout the day. She arrives today via EMS she is covered in dried stool all over her back buttocks legs and feet. Reports she wasn ot able to get to the bathroom due to weakness. She states that she has had multiple falls since discharge, she is unable to tell me clear details surrounding the falls, does not believe that she has struck her head with any of these falls. She does admit to pain in the right lower anterior chest, pain is exacerbated if she is lying supine but has some relief when lying onto the right side. She does state that she has had an occasional nonproductive cough but states it has not changed from baseline. Denies headache, dizziness, lightheadedness, shortness of breath, nausea, vomiting, diarrhea Related Data Home Medications ?Medication ?Instructions ?Recorded ?Confirmed folic acid 1 mg tablet 1 mg PO DAILY 04/07/20 03/29/24 simvastatin 40 mg tablet 40 mg PO BEDTIME 02/10/21 03/29/24 albuterol sulfate 90 mcg/actuation 2 puff inhalation Q6H PRN wheezing 05/12/22 03/29/24 aerosol inhaler escitalopram oxalate 10 mg tablet 10 mg PO DAILY 02/10/23 03/29/24 cholecalciferol (vitamin D3) 25 25 mcg PO DAILY 06/08/23 03/29/24 mcg (1,000 unit) capsule cyanocobalamin (vitamin B-12) 1,000 mcg PO DAILY 01/19/24 03/29/24 1,000 mcg tablet estradiol 0.01% (0.1 mg/gram) 2 g vaginal MOFR 01/19/24 03/29/24 vaginal cream ferrous sulfate 325 mg (65 mg 325 mg PO DAILY 01/19/24 03/29/24 iron) tablet dicyclomine 10 mg capsule 10 mg PO BID 02/29/24 03/29/24 magnesium citrate 100 mg capsule 200 mg PO BEDTIME 02/29/24 03/29/24 metoprolol tartrate 50 mg tablet 50 mg PO BID 02/29/24 03/29/24 pantoprazole 40 mg tablet,delayed 40 mg PO DAILY@0630 02/29/24 03/29/24 release rivaroxaban 20 mg tablet (Xarelto) 20 mg PO DAILY@1700 02/29/24 03/29/24 Lactobacillus rhamnosus GG 10 1 cap PO DAILY 03/29/24 03/29/24 billion cell capsule (Culturelle) ascorbic acid (vitamin C) 500 mg 1,000 mg PO DAILY 03/29/24 03/29/24 tablet (Vitamin C) calcium carbonate 500 mg PO DAILY PRN Dyspepsia 03/29/24 03/29/24 colesevelam 625 mg tablet 1,250 mg PO BID 03/29/24 03/29/24 digoxin 125 mcg (0.125 mg) tablet 125 mcg PO Q OTHER DAY 03/29/24 03/29/24 fluticasone propionate 50 2 spray intranasal DAILY PRN 03/29/24 03/29/24 mcg/actuation nasal Allergy Symptoms spray,suspension ipratropium 0.5 mg-albuterol 3 mg 3 ml inhalation Q4H PRN Wheezing 03/29/24 03/29/24 (2.5 mg base)/3 mL nebulization soln Previous Rx's ?Medication ?Instructions ?Recorded catheter insertion kit #2 ea 01/25/22 catheter irrigation kit #2 ea 01/25/22 abdi catheters #2 ea 01/25/22 leg bags #2 ea 01/25/22 night bags #1 ea 01/25/22 sterile water #1 ea 01/25/22 ondansetron HCl 4 mg tablet 4 mg PO Q6H PRN for 10/24/23 nausea/vomiting #60 tabs simethicone 180 mg capsule 180 mg PO BID #60 caps 11/27/23 (Anti-Gas Ultra Strength) zinc sulfate 50 mg zinc (220 mg) 50 mg PO DAILY #30 caps 11/27/23 capsule methenamine hippurate 1 gram tablet 1 g PO DAILY UTI suppression 90 01/15/24 days #90 tabs prochlorperazine maleate 5 mg 5 mg PO Q12H PRN for 02/13/24 tablet nausea/vomiting #30 tabs hydrocodone 5 mg-acetaminophen 325 1 tab PO Q6H PRN Pain, Severe 03/03/24 mg tablet (Pain Scale 7-10) #20 tabs Allergies Allergy/AdvReac Type Severity Reaction Status Date / Time No Known Allergies Allergy Verified 03/29/24 15:23 [No Known Allergies*] Review of Systems 2 Review of Systems: Yes all other systems are reviewed and are negative [facility] Past Medical History Attestation statement: The following information was validated with the patient. Source: old records reviewed Medical History Chronic atrial fibrillation Small bowel obstruction AAA (abdominal aortic aneurysm) Permanent atrial fibrillation Atrial fibrillation On beta mayra at home Legally blind Retention, urine Pneumonia Exercise hypoxemia GERD (gastroesophageal reflux disease) Hypertension Persistent atrial fibrillation COPD (chronic obstructive pulmonary disease) Dyspnea on exertion HTN (hypertension) Cardiac pacemaker in situ Sick sinus syndrome Surgical History History of endoscopy Hx of colonoscopy History of esophagogastroduodenoscopy (EGD) Hx of hysterectomy Hx of cardiac pacemaker History of radiofrequency ablation (RFA) for complex left atrial arrhythmia History of cardioversion Family History Family History Father CHF (congestive heart failure) Cancer Pacemaker Mother Emphysema lung Social History Social History Household Members: Spouse and Children Housing: House Are you a primary home care manager rn to a significant other at home: No Do you presently have visiting nurse or other home services: Yes Unable to assess alcohol history related to: Unknown Alcohol intake: former Patient Tobacco Use Status: Former Tobacco user Smoked in Last 30 Days: No Advance Directives: Yes Advance Directives on File: Yes Advance Directives Date on File: 07/26/22 Nutrition Risks: No Nutritional Risk service: No Physical Exam ED Vital Signs: Vital Signs - 24 hr 03/29/24 15:11 03/29/24 17:41 03/29/24 19:25 Temperature 98.4 F 98.1 F Pulse Rate 105 H 100 111 H Respiratory Rate 18 20 19 Blood Pressure 102/63 106/44 L Pulse Oximetry 97 95 Oxygen Delivery Method Room Air Room Air 03/29/24 19:41 03/29/24 20:27 03/29/24 20:57 Temperature Pulse Rate 105 H 109 H 113 H Respiratory Rate 20 22 H 24 H Blood Pressure 107/69 107/64 107/53 L Pulse Oximetry 92 95 95 Oxygen Delivery Method Room Air 03/29/24 22:04 03/29/24 22:42 03/29/24 22:57 Temperature 98.3 F Pulse Rate 108 H 108 H 108 H Respiratory Rate 20 20 22 H Blood Pressure 112/68 112/67 110/57 L Pulse Oximetry 97 97 98 Oxygen Delivery Method Room Air Room Air 03/29/24 23:12 Temperature Pulse Rate 113 H Respiratory Rate 28 H Blood Pressure 127/79 Pulse Oximetry 97 Oxygen Delivery Method Room Air BMI result Body Mass Index 24.2 Appearance: Alert.?Oriented to person, place and time. No acute distress.?Normal affect. Eyes: Pupils equal, round and reactive to light.? ENT: Pharynx normal.?? Neck: Normal inspection.? Neck supple.?? CVS: Heart sounds normal. Normal heart rate and rhythm.? Pulses normal.?? Respiratory: No respiratory distress.? Lung sounds diminished bilaterally, tenderness upon palpation over the right anterior chest wall primary, no crepitus, no palpable deformities? Abdomen: Soft and non-tender. Normoactive bowel sounds. ?? Skin: Skin warm and dry.? Normal skin color.? Extremities: No lower extremity edema.? No calf ttp? Neuro: Moves all extremities spontaneously. Sensation intact bilaterally. Ambulates with normal steady gait. Course Reevaluation(s) Reevaluation #1: CBC revealing a leukocytosis 15,100, mild normocytic anemia that does not meet transfusion criteria, no thrombocytopenia. No MARCI. Electrolyte derangement with magnesium of 1.4, replaced with magnesium sulfate 2 g IV, d endorsing persistent episodes of diarrhea recently with C.diff infection, will obtain stool sample, LFTs within normal range. EKG was obtained to evaluate QTC given hypomagnesemia, not prolonged, revealing atrial fibrillation ventricular rate of 108, on telemetry she is with a rate of 90-100. High sensitive troponin of 22, denies active chest pain, will obtain delta troponin to evaluate further for ACS. Urinalysis with 2+ leukocyte esterase, 6-10 urine WBC no urine bacteria seen, may be chronic pyuria from Abdi catheter, has had similar results in the past without growth on culture. At this time infection is suspected, CT of the chest without evidence of was rib fracture she does however have consolidation in the right upper lobe concerning for pneumonia, mild ground-glass opacities within the lingula. Will cover with Rocephin, obtaining blood cultures and lactic acid, sepsis fluid bolus. at the time of my re-evaluation she is audibly wheezy, she does admit that she has had increased sputum production recently orders placed for a dilator protocol, in addition to Solu-Medrol. At this time she appears notably more dyspneic with minimal exertion on the stretcher. CT head and cervical spine without acute pathology. Time: 18:51 Reevaluation #2: Lactic acid acidosis of 2.8, receiving fluid bolus at this time. Delta troponin is flat. Anticipate admission to medicine service for pneumonia, sepsis. Will consult hospitalist. Time: 19:56 Medications Administered Generic Name Dose Route Start Last Admin Trade Name Freq PRN Reason Stop Dose Admin Hydrocodone Bitart/Acetaminophen 1 tab 03/30/24 07:03 03/30/24 10:17 Hydrocodone Bit/Acetam 5/325 Tablet PO 1 tab Q6H PRN Administration Pain, Severe (Pain Scale 7-10) Ascorbic Acid 1,000 mg 03/30/24 09:00 03/30/24 09:13 Ascorbic Acid 500 Mg Tablet PO 1,000 mg DAILY LUCY Administration Cyanocobalamin 1,000 mcg 03/30/24 09:00 03/30/24 09:13 Cyanocobalamin (Vitamin B-12) 1,000 Mcg Tablet PO 1,000 mcg DAILY LUCY Administration Dicyclomine HCl 10 mg 03/30/24 09:00 03/30/24 09:14 Dicyclomine Hcl 10 Mg Capsule PO 10 mg BID LUCY Administration Digoxin 0.125 mg 03/30/24 09:00 03/30/24 09:14 Digoxin 0.125 Mg Tablet PO 0.125 mg Q48H LUCY Administration Protocol Escitalopram Oxalate 10 mg 03/30/24 09:00 03/30/24 09:14 Escitalopram Oxalate 10 Mg Tablet PO 10 mg DAILY LUCY Administration Ferrous Sulfate 324 mg 03/30/24 09:00 03/30/24 09:12 Ferrous Sulfate 324 Mg Tablet. PO 324 mg DAILY LUCY Administration Folic Acid 1 mg 03/30/24 09:00 03/30/24 09:13 Folic Acid 1 Mg Tablet PO 1 mg DAILY LUCY Administration Lactated Ringer's 1,000 mls @ 100 mls/hr 03/29/24 23:45 03/30/24 09:09 Lr IVCONT 125 mls/hr .Q10H LUCY Administration Methenamine Hippurate 1 gm 03/30/24 09:00 03/30/24 10:18 Methenamine Hippurate 1 Gm Tablet PO 1 gm DAILY LUCY Administration Metoprolol Tartrate 50 mg 03/30/24 09:00 03/30/24 09:12 Metoprolol Tartrate 50 Mg Tablet PO 50 mg BID [facility] Administration Protocol Omeprazole 20 mg 03/30/24 07:45 03/30/24 09:12 Omeprazole 20 Mg Capsule. PO 20 mg DAILY@0630 [facility] Administration Simethicone 160 mg 03/30/24 09:00 03/30/24 09:15 Simethicone 80 Mg Tab.Chew PO Not Given BID [facility] Sodium Chloride 3 ml 03/30/24 00:00 03/30/24 10:23 0.9 % Sodium Chloride Flush 3 Ml Syringe IVFLUSH 3 ml QSHIFT [facility] Administration Vancomycin HCl 125 mg 03/29/24 23:45 03/30/24 11:31 Vancomycin Hcl 125 Mg Capsule PO 125 mg Q6H [facility] Administration Vitamin D 25 mcg 03/30/24 09:00 03/30/24 09:11 Cholecalciferol (Vitamin D3) 25 Mcg Tablet PO 25 mcg DAILY [facility] Administration Zinc Sulfate 220 mg 03/31/24 09:00 03/30/24 10:17 Zinc Sulfate 220 Mg Capsule PO 220 mg DAILY LUCY Administration Discontinued Medications Generic Name Dose Route Start Last Admin Trade Name Freq PRN Reason Stop Dose Admin Albuterol/Ipratropium 3 ml 03/29/24 19:21 03/29/24 19:22 Albuterol/Iprat 2.5/0.5mg 3 Ml Ampul.Neb INHALE 03/29/24 19:22 3 ml ONCE ONE Administration Azithromycin 500 mg 03/30/24 07:01 03/30/24 09:13 Azithromycin 500 Mg Tablet PO 03/30/24 07:02 500 mg ONCE ONE Administration Ceftriaxone Sodium 1 gm 03/29/24 19:04 03/29/24 19:37 Ceftriaxone Sodium 1 Gm Vial IVPUSH 03/29/24 19:05 1 gm ONCE ONE Administration Magnesium Sulfate 2 gm in 50 mls @ 25 mls/hr 03/29/24 17:10 03/29/24 19:25 Magnesium Sulfate/H2o IV 03/29/24 19:09 Infused ONCE ONE Infusion Sodium Chloride 1,920 mls @ 1,920 mls/hr 03/29/24 19:04 03/29/24 22:40 Ns 30 ml/kg infuse over 1 hr (1920 ml) 03/29/24 20:03 Infused IV Infusion .Q1H STA Methylprednisolone Sodium Succinate 80 mg 03/29/24 19:04 03/29/24 19:36 Methylprednisolone Sod Succ 125 Mg/2 Ml Vial IVPUSH 03/29/24 19:05 80 mg ONCE ONE Administration Zinc Sulfate 50 mg 03/30/24 09:00 03/30/24 10:25 Zinc Sulfate 220 Mg Capsule PO Not Given DAILY LUCY Medical Decision Making Medical Decision Making MDM Narrative: Patient is a 73 year old female with past medical history of atrial fibrillation on Xarelto, CKD stage 3, AAA, COPD not on supplemental oxygen, GERD, history of uterine cancer, hyperlipidemia, hypertension, chronic indwelling Abdi catheter due to neurogenic bladder, sick sinus syndrome with pacemaker in situ who presents emergency department for evaluation of generalized weakness at home, multiple falls unsteady gait. Does not feel strong enough to be home alone recently discharged from long term facility. On review of records discharged from [facility] on 03/28/2024 with VNA services. patient is not the greatest historian, she at one point has told me that she has had 3 falls since discharge home at another point she told me that there have been 5 falls. She initially denied any head strike or loss of consciousness with this with these falls, but then she reports one of the falls resulting in a giant hole in the wall due to striking her head, but then states that that was before she was recently hospitalized. Given her age, multiple falls, and abundance of caution obtaining CT of the head to exclude ICH, SDH, CT cervical spine to exclude fracture, subluxation, CT of the chest to exclude rib fracture. Reports of generalized Weakness is not unilateral or sudden in onset making CVA/TIA less likely. No evidence of ascending paralysis to suggest Guillain-Enid syndrome. Will obtain CBC to evaluate for leukocytosis/ anemia, CMP and lipase to evaluate for abnormal electrolytes /abnormal renal function/ abnormal hepatic/biliary function, viral serologies and Urinalysis. Differential Diagnosis Differential Diagnoses: The differential diagnosis associated with the presentation includes (See narrative above) Admission/Observation Consideration of admission/observation: Escalation of care including admission/observation considered (See narrative above and course narrative for further detail) Lab Data MDM Lab Attestation statement: I reviewed the patient's lab results. (See course narrative) 03/30/24 02:17 03/30/24 08:15 Labs: Lab Results 03/29/24 03/29/24 03/29/24 Range/Units 16:21 16:28 17:39 WBC 15.1 H (4.8-10.8) X10*3/uL RBC 4.37 (4.20-5.50) X10*6/uL Hgb 11.8 L (12.0-16.0) g/dl Hct 36.4 L (37.0-47.0) % MCV 83.3 (80.0-98.0) fL MCH 27.0 (27.0-33.0) pg MCHC 32.4 (31.0-35.0) g/dl RDW 16.7 H (11.0-16.0) % Plt Count 273 (160-400) X10*3/uL MPV 9.8 (9.4-12.3) fL Immature Gran % (Auto) 1.4 H (0.0-0.4) % Neut % (Auto) 85.1 H (45-73) % Lymph % (Auto) 5.0 L (20-40) % [place] % (Auto) 8.2 (2-11) % Eos % (Auto) 0.1 (0-4) % Baso % (Auto) 0.2 (0-2) % Lymph # (Auto) 0.8 L (1.2-4.9) X10*3/uL [place] # (Auto) 1.2 (0.1-1.2) X10*3/uL Eos # (Auto) 0.0 (0.0-0.4) X10*3/uL Baso # (Auto) 0.0 (0.0-0.2) X10*3/uL Abs Immat Gran (auto) 0.21 H (0.00-0.03) X10*3/uL Absolute Neuts (auto) 12.8 H (2.0-8.3) x10*3/uL Absolute Nucleated RBC 0.000 (0.0-0.012) X10*3/uL Nucleated RBC % (auto) 0.0 (0.0-0.2) /100WBC PT 19.7 H (10.9-12.4) SEC INR 1.7 H (0.9-1.1) Sodium 135 (135-145) mmol/L Potassium 3.9 D (3.3-5.1) mmol/L Chloride 105 (96-108) mmol/L Carbon Dioxide 19 L (22-29) mmol/L Anion Gap 15 (12-20) BUN 25 H (9-16) mg/dL Creatinine 1.00 (0.5-1.4) mg/dL Estim Creat Clear Calc 42.6 Estimated GFR 54 Random Glucose 115 (60-115) mg/dL Lactic Acid (0.5-2.0) mmol/L Calcium 8.4 D (8.4-10.2) mg/dL Magnesium 1.4 L* (1.6-2.6) mg/dL Total Bilirubin 0.3 (0.0-1.0) mg/dL AST 19 (5-31) U/L ALT 10 (0-31) U/L Alkaline Phosphatase 109 (39-117) U/L Troponin I High Sens 22.0 H (<3.5-17.0) ng/L Total Protein 6.8 (6.5-8.0) g/dL Albumin 3.1 L (3.5-5.0) g/dL Lipase 21 (8-78) U/L Urine Color Yellow Urine Appearance Clear Urine pH 6.0 (5.0-9.0) Ur Specific [place] 1.015 (1.005-1.025) Urine Protein Trace (Neg-Trace) mg/dL Urine Glucose (UA) Negative (Negative) mg/dL Urine Ketones Negative (Negative) mg/dL Urine Blood Negative (Negative) Urine Nitrite Negative (Negative) Ur Leukocyte Esterase Moderate (2+) H (Negative) Urine RBC 0-2 (0-2) /HPF Urine WBC 6-10 (0-5) /HPF Ur Squamous Epith Cells 3-5 (0-2) /HPF Urine Bacteria None Seen (None Seen) Hyaline Casts 3-5 (0-2) /LPF C. difficile Tox B Gene (Negative) Influenza Type A (PCR) NEGATIVE (Negative) Influenza Type B (PCR) NEGATIVE (Negative) RSV RNA Qual (PCR) NEGATIVE (Negative) SARS-CoV-2 RNA (RT-PCR) NEGATIVE (Negative) 03/29/24 03/29/24 Range/Units 19:25 22:02 WBC (4.8-10.8) X10*3/uL RBC (4.20-5.50) X10*6/uL Hgb (12.0-16.0) g/dl Hct (37.0-47.0) % MCV (80.0-98.0) fL MCH (27.0-33.0) pg MCHC (31.0-35.0) g/dl RDW (11.0-16.0) % Plt Count (160-400) X10*3/uL MPV (9.4-12.3) fL Immature Gran % (Auto) (0.0-0.4) % Neut % (Auto) (45-73) % Lymph % (Auto) (20-40) % [place] % (Auto) (2-11) % Eos % (Auto) (0-4) % Baso % (Auto) (0-2) % Lymph # (Auto) (1.2-4.9) X10*3/uL [place] # (Auto) (0.1-1.2) X10*3/uL Eos # (Auto) (0.0-0.4) X10*3/uL Baso # (Auto) (0.0-0.2) X10*3/uL Abs Immat Gran (auto) (0.00-0.03) X10*3/uL Absolute Neuts (auto) (2.0-8.3) x10*3/uL Absolute Nucleated RBC (0.0-0.012) X10*3/uL Nucleated RBC % (auto) (0.0-0.2) /100WBC PT (10.9-12.4) SEC INR (0.9-1.1) Sodium (135-145) mmol/L Potassium (3.3-5.1) mmol/L Chloride (96-108) mmol/L Carbon Dioxide (22-29) mmol/L Anion Gap (12-20) BUN (9-16) mg/dL Creatinine (0.5-1.4) mg/dL Estim Creat Clear Calc Estimated GFR Random Glucose (60-115) mg/dL Lactic Acid 2.8 H* (0.5-2.0) mmol/L Calcium (8.4-10.2) mg/dL Magnesium (1.6-2.6) mg/dL Total Bilirubin (0.0-1.0) mg/dL AST (5-31) U/L ALT (0-31) U/L Alkaline Phosphatase (39-117) U/L Troponin I High Sens 20.6 H (<3.5-17.0) ng/L Total Protein (6.5-8.0) g/dL Albumin (3.5-5.0) g/dL Lipase (8-78) U/L Urine Color Urine Appearance Urine pH (5.0-9.0) Ur Specific [place] (1.005-1.025) Urine Protein (Neg-Trace) mg/dL Urine Glucose (UA) (Negative) mg/dL Urine Ketones (Negative) mg/dL Urine Blood (Negative) Urine Nitrite (Negative) Ur Leukocyte Esterase (Negative) Urine RBC (0-2) /HPF Urine WBC (0-5) /HPF Ur Squamous Epith Cells (0-2) /HPF Urine Bacteria (None Seen) Hyaline Casts (0-2) /LPF C. difficile Tox B Gene NEGATIVE (Negative) Influenza Type A (PCR) (Negative) Influenza Type B (PCR) (Negative) RSV RNA Qual (PCR) (Negative) SARS-CoV-2 RNA (RT-PCR) (Negative) Independent Interpretation I performed an independent interpretation of an: CT Scan (No ICH) Radiology Impression Discussion of test interpretation with radiology: I have reviewed the radiologist's reading. Radiologist Impression: IMPRESSION: CT chest w/o contrast 1. There is a focus of consolidation within the right upper lobe, likely secondary to pneumonia. Contusion not excluded. Masslike contours are present. Recommend follow-up to resolution. 2. Mild ground-glass opacities within the lingula may represent an area of interstitial infiltrate or atelectasis. IMPRESSION: CT cervical spine 1. No acute cervical spine fracture. 2. Partial visualization of a focus of infiltrate within the right upper lobe. Impression: CT head w/o contrast 1. No acute findings Independent Historian Clinical information obtained from an independent historian. History obtained from or confirmed by: EMS External Record Review External record reviewed: Outpatient record Critical Care Time Critical Care Time Critical Care Time: Yes Total Critical Care Time: 35 Attestation: I personally attest to this critical care time spent taking care of the patient exclusive of all other billable procedures was approximately 35 minutes including initial evaluation of patient, ordering tests, CT interpretation, EKG interpretation, acute sepsis management, medical consultation, documentation, re-evaluation. Discharge Plan Discharge Clinical Impression: Pneumonia, Sepsis Patient Disposition: Admitted As Inpatient
--- OUTSIDE RECORDS SUMMARY | 2024-03-29 15:43 | XMS_ITS | Encounter Summary ---
Author Organization [facility] Address [address] [place] [address] Phone Care Team Providers Care General Road Foreman Name Role Phone Nick Bonner MD Primary Care Provider [phone] Encounter Details Date Type Department Care Team (Late st Contact Info) Description 11/10/2021 Telephone [facility] [address] [place] [address] Inocente Martínez MD Social History [...] on filedocumented in this encounter Care Teams General Road Foreman Relationship Specialty Start Date End Date Nick Bonner MD [address] [place], [place] [address], [place] [address] PCP - General Internal Medicine 05/14/20 documented as of this encounter
--- OUTSIDE RECORDS SUMMARY | 2024-03-29 15:43 | XMS_ITS | Clinical Summary ---
Author Organization [facility] Address [address] [place] [address] Care Team Providers Care Aircraft Worker Name Role Phone Elena Jacobo FORCE DISPATCHER Primary Care Provider Allergies No known active [...] 2 (two) times a day. Active Pancrelipase, [id number], (Creon) 1576-4140 units Cap Particles Take 1 capsule by [...] this topic Medical Devices Implanted Type Area Digital Commentator Device Identifier Shelf Expiration Date Model / Serial / Lot Pacemaker Pacemaker Advance Directives * Full Code (Latest Code Status on File) Date Activated Date Inactivated Comments 12/11/2020 8:56 AM Care Teams Aircraft Worker Relationship Specialty Start Date End Date Elena Jacobo NP [address] [place] [id number] PCP - General Adult Health - ELPIDIO/JALEN/GABBY/TARIK 12/11/20
--- OUTSIDE RECORDS SUMMARY | 2024-03-29 15:44 | XMS_ITS | Continuity of Care Document ---
Author Organization [facility], [facility] Address [address] [place] [address] Care Team Providers Care Oiling Machine Operator Name Role Phone CARE[facility] (NONO [...] bone Active 2024 Ivanna Gutierrez MD [address] , [address], [place], [address] , [employer] 5 18:57:44 Abdominal aortic aneurysm 726673517 Active 2024 Jon[facility] [address], [place], [address] , [facility] [employer] 5 15:23:25 Atrial fibrillation 07943655 Active 2024 Jonah Khan MD [address] , [address], [place], [address] , [employer] [facility] 5 15:24:30 Chronic kidney disease stage 3A 509054189 Active 2024 Jonah Khan MD [address], [place], [address] , [employer] 5 15:24:38 Chronic obstructive pulmonary disease 59710417 Active 2024 Jonah Khan MD [address], [place], [address] , [employer] 5 15:24:43 History of malignant neoplasm of uterine body 087806636 Active 2024 Jonah Khan MD [address], [place], [address] , [employer] 5 15:24:52 Gastroesophag eal reflux disease without esophagitis 124269608 Active 2024 Jonah Khan MD [address], [place], [address] , [employer] 5 15:24:57 Essential hypertension 42847860 Active 2024 Jonah Khan MD [address], [place], [address] , [employer] [facility] 5 15:25:03 Mixed hyperlipidemi a 823587951 Active 2024 Jonah Khan MD [address], [place], [address] , [employer] [facility] 5 15:25:10 Neurogenic urinary bladder 718527398 Active 2024 Jonah Khan MD [address], [place], [address] , [employer] [facility] 5 15:25:20 Sick sinus syndrome 96660501 Active 2024 Jonah Khan MD [address], [place], [address] , [employer] 5 15:25:25 Osteonecrosis of hip 158410467 Active 2024 Not Available [facility] 5 08:55:23 Intestinal obstruction 68421917 Active 2024 Not Available [facility] [employer] [facility] 5 08:48:53 Recurrent bacterial infection 572893294 Active 2024 Not Available [facility] 5 08:49:58 Hypo-osmolali ty and or hyponatremia 979332869 Active 2024 Not Available [facility] 5 08:50:29 Muscle weakness 37912363 Active 2024 Not Available [facility] 5 08:51:14 Dysphagia 15066081 Active 2024 Not Available [facility] 5 08:51:44 Unsteady when standing 228382681 Active 2024 Not Available [facility] 5 08:52:15 Chronic kidney disease stage 3 850166125 Active 2024 Not Available [facility] 5 08:53:48 Abdominal aortic aneurysm without rupture 63187044 Active 2024 Not Available [facility] 5 08:54:19 Hyperlipidemi a 88288859 Active 2024 Not Available [facility] 5 08:54:20 Iron deficiency anemia 96978915 Active 2024 Not Available [facility] 5 12:58:42 Recurrent depression 367313803 Active 2024 Not Available [facility] [...] Smoking Status Never Smoker Jonah Khan MD [address] [place] [address], [address], [place], [address], [facility] 03/12/2024 15:37:56 Do You Have An Advance [...] Time SARS-COV-2 (COVID-19) vaccine, UNSPECIFIED 03/06/2020 completed Claudiagiovanna Reyes [facility], [facility] 03/12/2024 15:19:00 SARS-COV-2 (COVID-19) vaccine, UNSPECIFIED 04/06/2020 completed Claudia Eric [facility] 03/12/2024 15:19:19 SARS-COV-2 (COVID-19) vaccine, UNSPECIFIED 01/19/2021 completed Claudia Eric [facility] 03/12/2024 15:19:30 SARS-COV-2 (COVID-19) vaccine, UNSPECIFIED 07/08/2021 completed Claudia Eric [facility] 03/12/2024 15:19:37 Past Encounters Encounter ID Performer Location Encounter Start Date Encounter Closed Date Diagnosis/Indication Diagnosis SNOMED-CT Code Diagnosis ICD10 Code Diagnosis Note [id number] Jonah Khan MD [facility] on [address] [place] [address] 03/12/2024 14:57:39 03/13/2024 09:59:50 Clostridium difficile colitis 169973379 A04.72 concern for sepsis secondary to c diff underwent treatment then question if colonized at baselinemo nitor for sxcomplete course of PO vanco Acute kidney injury 1466 9001 N17.8 ARF on CRFimprove d with IVFmonitor renal function Idiopathic avascular necrosis of bone 9516403286 M87.852 avascular necrosis left femoral head on imaging was seen by ortho now with plan to f/u for replacemen t Abdominal aortic aneurysm 989775680 I71.43 [facility] [place] [id number] R53.1 PT OT eval and treatmonit or fall risk and need for increased support in community Atrial fibrillation 4943 6004 I48.0 xarelto 20 mg qdmetoprol ol 50 mg bidmonitor for rate controlreq uired IV lopressor in hospital Chronic ki dney disease stage 3A 670501015 N18.31 carrying dx with recent ARFmonitor renal functionav oid nephrotoxi c meds as ablenephro consult prn Chronic ob structive pulmonary disease 76636159 J41.1 added to PMHmonitor utilizatio n of albuterol History of malignant neoplasm of uterine body 310654599 Z85.42 added to PMH Gastroesop hageal reflux disease without esophagitis 269657335 K21.9 pantoprazo le 40 mg qdmonitor for sx relief Essential hypertension 23622058 I10 metoprolol 50 mg bidmonitor bp and need to titrate Mixed hyperlipidemia 267 237301 E78.2 simvastati n 40 mg qdcontinue d Neurogenic urinary bladder 731288098 N31.8 abdi cath and care Sick sinus syndrome 3608 3008 I49.5 hx of with pacer in place [id number] LEESA Lynch [facility] [address] [place] [address] 03/19/2024 09:16:20 03/20/2024 09:36:50 Clostridium difficile colitis 543732699 A04.72 stools resolvedmo nitor for recurrent loose stool Acute kidney injury 1466 9001 N17.8 labs pending todaylast labs in range 21/0.60 Idiopathic avascular necrosis of bone 6537848572 M87.852 avascular necrosis left femoral head on [...] Ruiz Member ID Guarantor Name 03/19/2024 1 [facility] - MEDICARE PREFERRED (MEDICARE REPLACEMENT HMO) PRAKASH Jung [id number] Trupti Jung Notes Date Note Type Note [...] is asking for edward byers, will tell MANAGER NIGHT. PMH significant forAAA follow by [facility] vasculara fibcrf stage 3copdgerdhx uterine cahldhtnneurogenic bladder with foleySSS s/p pacer LEESA GUADARRAMA [address] [place] [address], [address], [place], [address], [place] [facility] 03/19/2024 09:25:55 OBGyn Episode No OBEpisode recorded.
--- OUTSIDE RECORDS SUMMARY | 2024-03-29 15:44 | XMS_ITS | Clinical Summary ---
Author Organization [facility] Address [address] [place] [address] Phone Care Team Providers Care Motor Vehicle Dispatcher Name Role Phone Nick Bonner MD Primary Care Provider [phone] Allergies No known active allergies Medications ascorbic [...] mg by mouth daily 06/01/2020 Active pancrelipase, Tzm-Udre-Ohoe, (Creon) 2820-8866 units capsule TAKE 1 CAPSULE BY MOUTH [...] patient's age to complete this topic Insurance [facility] Care Teams Motor Vehicle Dispatcher Relationship Specialty Start Date End Date Nick Bonner MD [address] [place] [id number] PCP - General Internal Medicine 05/14/20
[2024-03-29 16:32] LABS: MANUAL DIFF FLAG NO
[2024-03-29 16:37] LABS: Basophils Percent Auto 0.2 % (0-2); Eosinophils Percent Auto 0.1 % (0-4); Hematocrit 36.4 % (37.0-47.0); Hemoglobin 11.8 g/dl (12.0-16.0); Imm Gran Abs Auto 0.21 X10*3/uL (0.00-0.03); Imm Gran Pct Auto 1.4 % (0.0-0.4); Lymphocytes Absolute Auto 0.8 X10*3/uL (1.2-4.9); Mean Corpuscular HGB Conc 32.4 g/dl (31.0-35.0); Mean Corpuscular Volume 83.3 fL (80.0-98.0); Mean Platelet Volume 9.8 fL (9.4-12.3); Monocytes Absolute Auto 1.2 X10*3/uL (0.1-1.2); Monocytes Percent Auto 8.2 % (2-11); Neutrophils Absolute Auto 12.8 x10*3/uL (2.0-8.3); Neutrophils Percent Auto 85.1 % (45-73); Platelet Count 273 X10*3/uL (160-400); Red Blood Count 4.37 X10*6/uL (4.20-5.50); Red Cell Distribution Width 16.7 % (11.0-16.0); White Blood Count 15.1 X10*3/uL (4.8-10.8)
[2024-03-29 16:42] LABS: INTERNATIONAL NORM RATIO 1.7 (0.9-1.1); Prothrombin Time 19.7 SEC (10.9-12.4)
--- NOTE | 2024-03-29 17:00 | MHC.EDTECH ---
patient was incontinent of stool clean and change patient nurse aware
[2024-03-29 17:08] LABS: Alanine Aminotransferase 10 U/L (0-31); Albumin Level 3.1 g/dL (3.5-5.0); Alkaline Phosphatase 109 U/L (39-117); Anion Gap 15 (12-20); Aspartate Amino Transferase 19 U/L (5-31); Bilirubin Total 0.3 mg/dL (0.0-1.0); Blood Urea Nitrogen 25 mg/dL (9-16); Calcium 8.4 mg/dL (8.4-10.2); Carbon Dioxide 19 mmol/L (22-29); Chloride 105 mmol/L (96-108); Creatinine Clr Calc Pharmacy 42.6; Estimated Glomerular Filt Rate 54; Glucose Random 115 mg/dL (60-115); Lipase 21 U/L (8-78); Magnesium 1.4 mg/dL (1.6-2.6); Potassium 3.9 mmol/L (3.3-5.1); Sodium 135 mmol/L (135-145); Total Protein 6.8 g/dL (6.5-8.0)
--- NOTE | 2024-03-29 17:10 | ECG_ITS ---
Test Reason : weakness Blood Pressure : */* mmHG Vent. Rate : 108 BPM Atrial Rate : * BPM P-R Int : * ms QRS Dur : 80 ms QT Int : 332 ms P-R-T Axes : * 26 212 degrees QTcB Int : 444 ms Atrial fibrillation with rapid ventricular response ST & T wave abnormality, consider inferolateral ischemia Abnormal ECG When compared with ECG of 28-Feb-2024 16:34, T wave inversion less evident in Anterior leads Referred By: Gladis Rivera Electronically Signed By: BHAVESH MONIQUE
[2024-03-29] MEDS: Magnesium Sulfate/H2O 2 GM/50 ML PIGGYBACK IV (17:25)
[2024-03-29 17:28] LABS: Influenza A PCR NEGATIVE (Negative); Influenza B PCR NEGATIVE (Negative); Resp Syncy Virus RNA Qual PCR NEGATIVE (Negative); SARS COV2 PCR INHOUSE NEGATIVE (Negative)
[2024-03-29 17:57] LABS: Appearance Urine Clear; Color Urine Yellow; Glucose Urine UA Negative (Negative); Leukocyte Esterase Urine Moderate (2+) (Negative); Nitrite Urine Negative (Negative); Specific Gravity - Urine 1.015 (1.005-1.025); UMIC TRIGGER UACC YES; Urine Blood Negative (Negative); Urine Ketones Negative (Negative); Urine Protein Trace mg/dL (Neg-Trace)
[2024-03-29 18:11] LABS: Bacteria Urine None Seen (None Seen); RBC Urine 0-2 /HPF (0-2); UACC Culture Trigger YES
--- NOTE | 2024-03-29 18:26 | PC.NURSE ---
Trupti's daughter (Franny) is at bedside, pulled this RN aside to speak privately. Franny voiced frustrations with [facility] and the fact that the patient was discharged home without services/follow-up. Franny stated that she wants to take the patient home with her and wants to care for her. The patient normally lives with her elderly and her son. Franny stated that her brother is a sack of aj. I want to take my Mom home. She is my one and only Mom, and I'm gonna take care of her . Spoke with GABBY Rivera about this interaction. Provider to go to bedside to speak with patient and family regarding results and plan.
--- NOTE | 2024-03-29 18:59 | PC.NURSE ---
Sepsis protocol initiated by provider (GABBY Rivera) at 18:55. Patient has 20g IV access to right AC. Family remains at bedside.
[2024-03-29] MEDS: Albuterol/Iprat 2.5/0.5MG 3 ML AMPUL.NEB INHALE (19:22)
[2024-03-29] MEDS: methylPREDNISolone Sod Succ 125 MG/2 ML VIAL 80 MG IVPUSH (19:36)
[2024-03-29] MEDS: cefTRIAXone sodium 1 GM VIAL IVPUSH (19:37)
[2024-03-29] MEDS: 0.9 % Sodium Chloride 1,920 ML 1920 ML IV (19:37)
[2024-03-29 19:54] LABS: Troponin-I High Sensitivity 20.6 ng/L (<3.5-17.0)
[2024-03-29 19:55] LABS: Lactic Acid 2.8 mmol/L (0.5-2.0)
[2024-03-29 21:30] LABS: Reflex Lactate? Lactic Acid Added
--- NOTE | 2024-03-29 21:35 | PC.NURSE ---
Patient and daughter (Franny) have been repeatedly using the call vasquez (every 5-10 minutes). This RN and provider (GABBY Rivera) have explained the results of labs & imaging repeatedly, and both continue to repeatedly ask about results. Patient has had 3 episodes of stool incontinence and is able to use call vasquez. Repeatedly encouraged to straighten arm, causing IV pump alarm to alarm repeatedly. Barrier cream applied to gluteal fold, early rash noted. No open areas. Unable to care for self at home.
--- NOTE | 2024-03-29 21:58 | PHA.MEDREC ---
Addendum entered by Madisyn Barry 03/29/24 22:03: Azithromycin rx was sent to the pharmacy for the patient. They were told to pick it up based on chest Xray results, which were negative according to daughter, so they never picked up the rx. Original Note: Pharmacy Consult ? Medication Reconciliation Pharmacy has completed the medication reconciliation. Used discharge medication list from [facility]. Family at bedside and patient got sent home with blister packs. Patient is unsure if she had digoxin today. She did say she had morning medications today.
--- NOTE | 2024-03-29 22:07 | PC.NURSE ---
Patient had 4th episode of stool incontinence this shift. This bowel movement was small, but liquid. Specimen collected and sent to lab for analysis, C-Diff PCR. Barrier cream applied. Spoke with regarding whether or not to consider inserting a rectal tube. Provider and patient agree with plan to insert rectal tube due to frequent incontinence. Patient has abdi catheter in place (was in place prior to arrival to ED) that continues to drain clear yellow urine.
--- NOTE | 2024-03-29 22:23 | PC.NURSE ---
NS continues to infuse due to the patient repeatedly bending her arm. Frequently changing the patient. Pt requesting complete linen changes with every interaction. Rectal tube obtained from ICU stock, none available in ED stock room.
[2024-03-29 23:00] LABS: CDiff Gene PCR NEGATIVE (Negative)
--- NOTE | 2024-03-29 23:10 | PM.IMHP ---
History of Present Illness Date of Service: 03/29/24 Chief Complaint: Weakness/Fall A 71-year-old female with a past medical history significant for persistent atrial fibrillation on Xarelto, CKD stage 3, AAA followed by [facility], COPD (not on home oxygen), GERD, history of uterine cancer, hyperlipidemia, hypertension, chronic indwelling Abdi catheter due to neurogenic bladder, sick sinus syndrome with a pacemaker in situ, and avascular necrosis of the left hip presents following a fall at home. She was recently hospitalized at [facility] from 02/28/24 to 03/03/24 for C. difficile sepsis and subsequently discharged to [facility] rehab at [facility], where she stayed for 16 days before being discharged home on 03/28/24. Since discharge, she has experienced progressive weakness, persistent diarrhea, and worsening difficulty walking due to left hip avascular necrosis and associated pain. She reports an inability to care for herself at home. In the ED, labs revealed WBC of 15, lactic acid of 2.4, magnesium of 1.4, and troponin I of 20 (unchanged). C. difficile PCR was negative. UA showed positive leukocyte esterase but was otherwise normal. Flu, RSV, and COVID tests were negative. Imaging included a CT head and neck, which showed no acute findings, and a chest CT, which revealed left upper lobe consolidation. Findings are concerning for pneumonia in the setting of recent C. difficile infection, persistent diarrhea, and progressive functional decline. Ceftriaxone is given for pneumonia Review of Systems Review of Systems: Gen: no fever Resp: no sob, no cough CV: no chest, no MOTT, no leg edema GI: No n/v, no abd pain, +diarrhea Neuro: No confusion Yes all other systems are reviewed and are negative [facility] Medical History Chronic atrial fibrillation Small bowel obstruction AAA (abdominal aortic aneurysm) Permanent atrial fibrillation Atrial fibrillation On beta mayra at home Legally blind Retention, urine Pneumonia Exercise hypoxemia GERD (gastroesophageal reflux disease) Hypertension Persistent atrial fibrillation COPD (chronic obstructive pulmonary disease) Dyspnea on exertion HTN (hypertension) Cardiac pacemaker in situ Sick sinus syndrome Family History Father CHF (congestive heart failure) Cancer Pacemaker Mother Emphysema lung Surgical History History of endoscopy Hx of colonoscopy History of esophagogastroduodenoscopy (EGD) Hx of hysterectomy Hx of cardiac pacemaker History of radiofrequency ablation (RFA) for complex left atrial arrhythmia History of cardioversion Social History Household Members: Spouse and Children Housing: House Are you a primary health care legal assistant to a significant other at home: No Do you presently have visiting nurse or other home services: Yes Unable to assess alcohol history related to: Unknown Alcohol intake: former Patient Tobacco Use Status: Former Tobacco user Smoked in Last 30 Days: No Advance Directives: Yes Advance Directives on File: Yes Advance Directives Date on File: 07/26/22 Nutrition Risks: No Nutritional Risk service: No Meds Allergies Allergy/AdvReac Type Severity Reaction Status Date / Time No Known Allergies Allergy Verified 03/29/24 15:23 [No Known Allergies*] Home Medications ?Medication ?Instructions ?Recorded ?Confirmed ?Last Taken ?Type folic acid 1 mg tablet 1 mg PO DAILY 04/07/20 03/29/24 10/01/22 History simvastatin 40 mg tablet 40 mg PO BEDTIME 02/10/21 03/29/24 10/01/22 History albuterol sulfate 90 mcg/actuation 2 puff inhalation Q6H PRN wheezing 05/12/22 03/29/24 10/01/22 History aerosol inhaler escitalopram oxalate 10 mg tablet 10 mg PO DAILY 02/10/23 03/29/24 Unknown History cholecalciferol (vitamin D3) 25 25 mcg PO DAILY 06/08/23 03/29/24 Unknown History mcg (1,000 unit) capsule cyanocobalamin (vitamin B-12) 1,000 mcg PO DAILY 01/19/24 03/29/24 Unknown History 1,000 mcg tablet estradiol 0.01% (0.1 mg/gram) 2 g vaginal MOFR 01/19/24 03/29/24 Unknown History vaginal cream ferrous sulfate 325 mg (65 mg 325 mg PO DAILY 01/19/24 03/29/24 Unknown History iron) tablet dicyclomine 10 mg capsule 10 mg PO BID 02/29/24 03/29/24 Unknown History magnesium citrate 100 mg capsule 200 mg PO BEDTIME 02/29/24 03/29/24 Unknown History metoprolol tartrate 50 mg tablet 50 mg PO BID 02/29/24 03/29/24 Unknown History pantoprazole 40 mg tablet,delayed 40 mg PO DAILY@0630 02/29/24 03/29/24 Unknown History release rivaroxaban 20 mg tablet (Xarelto) 20 mg PO DAILY@1700 02/29/24 03/29/24 Unknown History Lactobacillus rhamnosus GG 10 1 cap PO DAILY 03/29/24 03/29/24 Unknown History billion cell capsule (Culturelle) ascorbic acid (vitamin C) 500 mg 1,000 mg PO DAILY 03/29/24 03/29/24 Unknown History tablet (Vitamin C) calcium carbonate 500 mg PO DAILY PRN Dyspepsia 03/29/24 03/29/24 Unknown History colesevelam 625 mg tablet 1,250 mg PO BID 03/29/24 03/29/24 Unknown History digoxin 125 mcg (0.125 mg) tablet 125 mcg PO Q OTHER DAY 03/29/24 03/29/24 Unknown History fluticasone propionate 50 2 spray intranasal DAILY PRN 03/29/24 03/29/24 Unknown History mcg/actuation nasal Allergy Symptoms spray,suspension ipratropium 0.5 mg-albuterol 3 mg 3 ml inhalation Q4H PRN Wheezing 03/29/24 03/29/24 Unknown History (2.5 mg base)/3 mL nebulization soln Physical Exam Vital Signs and Narrative: Vital Signs: Last Vital Signs Temp 98.1 F 03/29/24 17:41 Pulse 105 H 03/29/24 19:41 Resp 20 03/29/24 19:41 BP 107/69 03/29/24 19:41 Pulse Ox 92 03/29/24 19:41 O2 Del Method Room Air 03/29/24 19:41 BMI result Body Mass Index 24.2 Const: Other: General: AO X 3, no acute distress HEENT: normal exam Resp: CTA bilateral CVS: S1,S2,RRR GI: +BS, NT, no distention Skin: No rash : abdi clean Neuro: motor grossly intact Psych: appropriate affect Results Labs 03/30/24 02:17 03/30/24 08:15 Labs: Laboratory Results - last 24 hr 03/29/24 03/29/24 03/29/24 16:21 16:28 17:39 MCV 83.3 MCH 27.0 MCHC 32.4 RDW 16.7 H Plt Count 273 MPV 9.8 Immature Gran % (Auto) 1.4 H Neut % (Auto) 85.1 H Lymph % (Auto) 5.0 L [place] % (Auto) 8.2 Eos % (Auto) 0.1 Baso % (Auto) 0.2 Lymph # (Auto) 0.8 L [place] # (Auto) 1.2 Eos # (Auto) 0.0 Baso # (Auto) 0.0 Abs Immat Gran (auto) 0.21 H Absolute Neuts (auto) 12.8 H Absolute Nucleated RBC 0.000 Nucleated RBC % (auto) 0.0 PT 19.7 H INR 1.7 H Anion Gap 15 Estim Creat Clear Calc 42.6 Estimated GFR 54 Random Glucose 115 Lactic Acid Calcium 8.4 D Magnesium 1.4 L* Total Bilirubin 0.3 AST 19 ALT 10 Alkaline Phosphatase 109 Total Protein 6.8 Albumin 3.1 L Lipase 21 Urine Color Yellow Urine Appearance Clear Urine pH 6.0 Ur Specific [place] 1.015 Urine Protein Trace Urine Glucose (UA) Negative Urine Ketones Negative Urine Blood Negative Urine Nitrite Negative Ur Leukocyte Esterase Moderate (2+) H Urine RBC 0-2 Urine WBC 6-10 Ur Squamous Epith Cells 3-5 Urine Bacteria None Seen Hyaline Casts 3-5 C. difficile Tox B Gene Influenza Type A (PCR) NEGATIVE Influenza Type B (PCR) NEGATIVE RSV RNA Qual (PCR) NEGATIVE SARS-CoV-2 RNA (RT-PCR) NEGATIVE 03/29/24 03/29/24 19:25 22:02 MCV MCH MCHC RDW Plt Count MPV Immature Gran % (Auto) Neut % (Auto) Lymph % (Auto) [place] % (Auto) Eos % (Auto) Baso % (Auto) Lymph # (Auto) [place] # (Auto) Eos # (Auto) Baso # (Auto) Abs Immat Gran (auto) Absolute Neuts (auto) Absolute Nucleated RBC Nucleated RBC % (auto) PT INR Anion Gap Estim Creat Clear Calc Estimated GFR Random Glucose Lactic Acid 2.8 H* Calcium Magnesium Total Bilirubin AST ALT Alkaline Phosphatase Total Protein Albumin Lipase Urine Color Urine Appearance Urine pH Ur Specific [place] Urine Protein Urine Glucose (UA) Urine Ketones Urine Blood Urine Nitrite Ur Leukocyte Esterase Urine RBC Urine WBC Ur Squamous Epith Cells Urine Bacteria Hyaline Casts C. difficile Tox B Gene NEGATIVE Influenza Type A (PCR) Influenza Type B (PCR) RSV RNA Qual (PCR) SARS-CoV-2 RNA (RT-PCR) Assessment and Plan (1) Pneumonia: Status: Acute Plan A 71-year-old female with a past medical history significant for persistent atrial fibrillation on Xarelto, CKD stage 3, abdominal aortic aneurysm (AAA) followed by [facility], COPD (not on home oxygen), GERD, history of uterine cancer, hyperlipidemia, hypertension, chronic indwelling Abdi catheter due to neurogenic bladder, sick sinus syndrome with a pacemaker in situ, and avascular necrosis of the left hip, presenting with weakness, diarrhea, and pneumonia. She also has a recent history of C. difficile infection. Sepsis d/t pneumonia cultures pending continue ceftriaxone + azithro Diarrhea, recent cdif, cdif is negative but high suspicion PO vanco 125 qid Chronic AFib continue metoprolol, dig, check level continue xarelto AVN of left hip pain control outpatient follow up with ortho Mild metabolic acidosis d/t diarrha IVF and monitor Acute Lactic acidosis not d/t sepsis likely related to diarrhea AAA--stable followed by [facility] Hypomagnesemia IV replacement COPD unspecified no acute exacerbation continue home meds Neurogenic bladder chronic Abdi catheter in place UA not suggestive of uti Quality Stroke Does the patient have a stroke diagnosis?: No VTE Prior VTE?: No VTE Risk Level:: Medical - moderate - high VTE Device Contraindication: Treatment Not Indicated VTE Drug Contraindication: N/A - Med Ordered
--- NOTE | 2024-03-29 23:39 | PC.NURSE ---
recollect on lactic, ISABELA Jackson made aware
--- NOTE | 2024-03-29 23:43 | PC.NURSE ---
Rectal tube reinserted. Patient accidentally pushed it out . Patient is a difficult IV/blood draw stick. Lab called to report recollect needed for lactic acid level drawn at 23:31. Attempting recollect.
[2024-03-30] VITALS (10 sets, daily range): BP systolic 122–145; BP diastolic 68–90; PULSE 84–117; RESP 12–26; TEMP 36.3–37; O2SAT 92–98
[2024-03-30 00:14] LABS: ~Lactic Acid-LAB USE ONLY 4.4 mmol/L (0.5-2.0)
[2024-03-30] MEDS: 0.9 % Sodium Chloride Flush 3 ML SYRINGE IVFLUSH ×3 (01:05→16:48)
[2024-03-30] MEDS: vancomycin HCL 125 MG CAPSULE PO ×4 (01:05→16:47)
[2024-03-30] MEDS: Lactated Ringers 1,000 ML 125 ML IVCONT ×3 (01:06→20:58)
[2024-03-30 01:54] LABS: Reflex Lactate? 2 Y
[2024-03-30 02:22] LABS: Basophils Percent Auto 0.2 % (0-2); Hematocrit 32.9 % (37.0-47.0); Hemoglobin 10.7 g/dl (12.0-16.0); Imm Gran Abs Auto 0.18 X10*3/uL (0.00-0.03); Imm Gran Pct Auto 1.5 % (0.0-0.4); Lymphocytes Absolute Auto 0.6 X10*3/uL (1.2-4.9); Lymphocytes Percent Auto 4.7 % (20-40); MANUAL DIFF FLAG SCAN; Mean Corpuscular HGB Conc 32.5 g/dl (31.0-35.0); Mean Corpuscular Hemoglobin 27.2 pg (27.0-33.0); Mean Corpuscular Volume 83.5 fL (80.0-98.0); Mean Platelet Volume 9.9 fL (9.4-12.3); Monocytes Absolute Auto 0.3 X10*3/uL (0.1-1.2); Monocytes Percent Auto 2.3 % (2-11); Neutrophils Absolute Auto 10.9 x10*3/uL (2.0-8.3); Neutrophils Percent Auto 91.3 % (45-73); Platelet Count 243 X10*3/uL (160-400); Red Blood Count 3.94 X10*6/uL (4.20-5.50); Red Cell Distribution Width 16.9 % (11.0-16.0); SCAN SMEAR FLAG 1
[2024-03-30 03:01] LABS: SLIDE REVIEW VERIFIED
[2024-03-30 03:04] LABS: ~Lactic Acid-LAB USE ONLY 3.7 mmol/L (0.5-2.0)
[2024-03-30 03:20] LABS: Alanine Aminotransferase 11 U/L (0-31); Albumin Level 2.7 g/dL (3.5-5.0); Alkaline Phosphatase 96 U/L (39-117); Anion Gap 15 (12-20); Aspartate Amino Transferase 12 U/L (5-31); Bilirubin Total 0.1 mg/dL (0.0-1.0); Blood Urea Nitrogen 18 mg/dL (9-16); Calcium 7.8 mg/dL (8.4-10.2); Carbon Dioxide 14 mmol/L (22-29); Chloride 114 mmol/L (96-108); Creatinine Clr Calc Pharmacy 46.8; Estimated Glomerular Filt Rate > 60; Glucose Random 213 mg/dL (60-115); Potassium 3.6 mmol/L (3.3-5.1); Sodium 139 mmol/L (135-145); Total Protein 5.8 g/dL (6.5-8.0)
--- NOTE | 2024-03-30 05:34 | PC.NURSE ---
Pt is alseep but awakes easily to voice. Given PO Vanco as charted. Breathing even and unlabored. No output in rectal tube bag however pt does report tube in place abdi drainage bag noted with dark yellow urine. Pt abrupt with responses short and reports trying to sleep at this time
[2024-03-30 09:02] LABS: Anion Gap 14 (12-20); Blood Urea Nitrogen 19 mg/dL (9-16); Calcium 7.9 mg/dL (8.4-10.2); Carbon Dioxide 17 mmol/L (22-29); Chloride 113 mmol/L (96-108); Creatinine Clr Calc Pharmacy 55.3; Estimated Glomerular Filt Rate > 60; Glucose Random 158 mg/dL (60-115); Magnesium 1.9 mg/dL (1.6-2.6); Potassium 4.1 mmol/L (3.3-5.1); Sodium 140 mmol/L (135-145)
[2024-03-30] MEDS: Cholecalciferol (Vitamin D3) 25 MCG TABLET PO (09:11)
[2024-03-30] MEDS: Omeprazole 20 MG CAPSULE.DR PO (09:12)
[2024-03-30] MEDS: Ferrous Sulfate 324 MG TABLET.DR PO (09:12)
[2024-03-30] MEDS: Metoprolol Tartrate 50 MG TABLET PO ×2 (09:12→21:56)
[2024-03-30] MEDS: Folic Acid 1 MG TABLET PO (09:13)
[2024-03-30] MEDS: Cyanocobalamin (Vitamin B-12) 1,000 MCG TABLET 1000 MCG PO (09:13)
[2024-03-30] MEDS: Ascorbic Acid 500 MG TABLET 1000 MG PO (09:13)
[2024-03-30] MEDS: Azithromycin 500 MG TABLET PO (09:13)
[2024-03-30] MEDS: Dicyclomine HCl 10 MG CAPSULE PO ×2 (09:14→21:56)
[2024-03-30] MEDS: Escitalopram Oxalate 10 MG TABLET PO (09:14)
[2024-03-30] MEDS: Digoxin 0.125 MG TABLET PO (09:14)
--- NOTE | 2024-03-30 10:16 | MHC.EDTECH ---
pt provided clean linens and a bedbath, rectal tube and abdi remain in place, RN at bedside at this time for med pass, resting comfortably
[2024-03-30] MEDS: Zinc Sulfate 220 MG CAPSULE PO (10:17)
[2024-03-30] MEDS: HYDROcodone Bit/Acetam 5/325 TABLET 1 TAB PO ×2 (10:17→16:47)
[2024-03-30] MEDS: Methenamine Hippurate 1 GM TABLET PO (10:18)
--- NOTE | 2024-03-30 11:11 | HO.PM.IMPN ---
Subjective Subjective Date of Service: 03/30/24 Interval History: seen and examined this morning follow up for pneumonia, diarrhea coughing, no sob Review of Systems Review of Systems: Yes all other systems are reviewed and are negative Constitutional Constitutional: Denies chills and Denies fever(s) Physical Exam Vital Signs: Vital Signs: Last Vital Signs Temp 97.9 F 03/30/24 06:19 Pulse 95 03/30/24 10:17 Resp 18 03/30/24 10:17 BP 141/90 H 03/30/24 09:17 Pulse Ox 98 03/30/24 10:17 O2 Del Method Room Air 03/30/24 10:17 BMI result Body Mass Index 24.2 Const: General: cooperative, comfortable, alert and awake Orientation/consciousness: patient oriented x3 Resp: Effort & Inspection: normal respiratory effort, able to speak in complete sentences, no respiratory distress and no use of accessory muscles Cardio: Rate: regular rate GI: Inspection: No distended Palpation (GI): Soft to palpation and nontender : Other: abdi draining clear yellow urine Neuro: General: patient oriented x3, moves all extremities and CN's II-XI intact bilaterally Objective Data Active Medications Acetaminophen (Acetaminophen 325 Mg Tablet) 650 mg PO Q6H PRN PRN Reason: Pain, Mild 1-3,fever,headache Hydrocodone Bitart/Acetaminophen (Hydrocodone Bit/Acetam 5/325 Tablet) 1 tab PO Q6H PRN PRN Reason: Pain, Severe (Pain Scale 7-10) Last Admin: 03/30/24 10:17 Dose: 1 tab Documented By: NANDO Albuterol Sulfate (Albuterol Sulfate 90 Mcg 8 Gm Inhaler) 2 puff INHALE Q6H PRN PRN Reason: wheezing Albuterol/Ipratropium (Albuterol/Iprat 2.5/0.5mg 3 Ml Ampul.Neb) 3 ml INHALE Q4H PRN PRN Reason: Wheezing Ascorbic Acid (Ascorbic Acid 500 Mg Tablet) 1,000 mg PO DAILY [facility] Last Admin: 03/30/24 09:13 Dose: 1,000 mg Documented By: NANDO Atorvastatin Calcium (Atorvastatin Calcium 20 Mg Tablet) 20 mg PO BEDTIME [facility] Azithromycin (Azithromycin 250 Mg Tablet) 250 mg PO Q24H [facility] Stop: 04/03/24 09:16 Calcium Carbonate (Calcium Carbonate 750 Mg Tab.Chew) 750 mg PO Q4H PRN PRN Reason: Heartburn Ceftriaxone Sodium (Ceftriaxone Sodium 1 Gm Vial) 1 gm IVPUSH Q24H [facility] Cyanocobalamin (Cyanocobalamin (Vitamin B-12) 1,000 Mcg Tablet) 1,000 mcg PO DAILY [facility] Last Admin: 03/30/24 09:13 Dose: 1,000 mcg Documented By: NANDO Dicyclomine HCl (Dicyclomine Hcl 10 Mg Capsule) 10 mg PO BID [facility] Last Admin: 03/30/24 09:14 Dose: 10 mg Documented By: NANDO Digoxin (Digoxin 0.125 Mg Tablet) 0.125 mg PO Q48H [facility]; Protocol Last Admin: 03/30/24 09:14 Dose: 0.125 mg Documented By: NANDO Escitalopram Oxalate (Escitalopram Oxalate 10 Mg Tablet) 10 mg PO DAILY [facility] Last Admin: 03/30/24 09:14 Dose: 10 mg Documented By: NANDO Ferrous Sulfate (Ferrous Sulfate 324 Mg Tablet.Dr) 324 mg PO DAILY [facility] Last Admin: 03/30/24 09:12 Dose: 324 mg Documented By: NANDO Fluticasone Propionate (Fluticasone Propionate Nasal 16 Gm [place]) 2 spray NOSTRIL-B DAILY PRN PRN Reason: Allergy Symptoms Folic Acid (Folic Acid 1 Mg Tablet) 1 mg PO DAILY [facility] Last Admin: 03/30/24 09:13 Dose: 1 mg Documented By: NANDO Lactated Ringer's (Lr) 1,000 mls @ 125 mls/hr IVCONT .Q8H [facility] Last Admin: 03/30/24 09:09 Dose: 125 mls/hr Documented By: NANDO Magnesium Hydroxide (Milk Of Magnesia 30 Ml Oral.Susp) 30 ml PO DAILY PRN PRN Reason: Constipation Melatonin (Melatonin 3 Mg Tablet) 6 mg PO BEDTIME PRN PRN Reason: Insomnia Methenamine Hippurate (Methenamine Hippurate 1 Gm Tablet) 1 gm PO DAILY [facility] Last Admin: 03/30/24 10:18 Dose: 1 gm Documented By: NANDO Metoprolol Tartrate (Metoprolol Tartrate 50 Mg Tablet) 50 mg PO BID [facility]; Protocol Last Admin: 03/30/24 09:12 Dose: 50 mg Documented By: NANDO Non-Formulary Medication (Colesevelam) 1,250 mg PO BID [facility] Non-Formulary Medication (Estradiol) 2 gm VAGINAL MOFR [facility] Omeprazole (Omeprazole 20 Mg Capsule.) 20 mg PO DAILY@0630 [facility] Last Admin: 03/30/24 09:12 Dose: 20 mg Documented By: NANDO Ondansetron HCl (Ondansetron Hcl 4 Mg/2 Ml Vial) 4 mg IVPUSH Q8H PRN PRN Reason: Nausea and Vomiting Prochlorperazine Maleate (Prochlorperazine Maleate 5 Mg Tablet) 5 mg PO Q12H PRN PRN Reason: for nausea/vomiting Rivaroxaban (Rivaroxaban 20 Mg Tablet) 20 mg PO DAILY@1700 [facility] Simethicone (Simethicone 80 Mg Tab.Chew) 160 mg PO BID [facility] Last Admin: 03/30/24 09:15 Dose: Not Given Documented By: NANDO Non-Admin Reason: Patient Refused Sodium Chloride (0.9 % Sodium Chloride Flush 3 Ml Syringe) 3 ml IVFLUSH QSHIFT [facility] Last Admin: 03/30/24 10:23 Dose: 3 ml Documented By: NANDO Vancomycin HCl (Vancomycin Hcl 125 Mg Capsule) 125 mg PO Q6H [facility] Last Admin: 03/30/24 05:24 Dose: 125 mg Documented By: NANDO Vitamin D (Cholecalciferol (Vitamin D3) 25 Mcg Tablet) 25 mcg PO DAILY [facility] Last Admin: 03/30/24 09:11 Dose: 25 mcg Documented By: NANDO Zinc Sulfate (Zinc Sulfate 220 Mg Capsule) 220 mg PO DAILY [facility] Last Admin: 03/30/24 10:17 Dose: 220 mg Documented By: NANDO Labs 03/30/24 02:17 03/30/24 08:15 Labs: Laboratory Results - last 24 hr 03/29/24 03/29/24 03/29/24 16:21 16:28 17:39 MCV 83.3 MCH 27.0 MCHC 32.4 RDW 16.7 H Plt Count 273 MPV 9.8 Immature Gran % (Auto) 1.4 H Neut % (Auto) 85.1 H Lymph % (Auto) 5.0 L [place] % (Auto) 8.2 Eos % (Auto) 0.1 Baso % (Auto) 0.2 Lymph # (Auto) 0.8 L [place] # (Auto) 1.2 Eos # (Auto) 0.0 Baso # (Auto) 0.0 Abs Immat Gran (auto) 0.21 H Absolute Neuts (auto) 12.8 H Absolute Nucleated RBC 0.000 Nucleated RBC % (auto) 0.0 Smear Tech's Comments PT 19.7 H INR 1.7 H Anion Gap 15 Estim Creat Clear Calc 42.6 Estimated GFR 54 Random Glucose 115 Lactic Acid Lactic Acid F/U @ 2Hr Lactic Acid F/U @ 4Hr Calcium 8.4 D Magnesium 1.4 L* Total Bilirubin 0.3 AST 19 ALT 10 Alkaline Phosphatase 109 Total Protein 6.8 Albumin 3.1 L Lipase 21 Urine Color Yellow Urine Appearance Clear Urine pH 6.0 Ur Specific [place] 1.015 Urine Protein Trace Urine Glucose (UA) Negative Urine Ketones Negative Urine Blood Negative Urine Nitrite Negative Ur Leukocyte Esterase Moderate (2+) H Urine RBC 0-2 Urine WBC 6-10 Ur Squamous Epith Cells 3-5 Urine Bacteria None Seen Hyaline Casts 3-5 C. difficile Tox B Gene Influenza Type A (PCR) NEGATIVE Influenza Type B (PCR) NEGATIVE RSV RNA Qual (PCR) NEGATIVE SARS-CoV-2 RNA (RT-PCR) NEGATIVE 03/29/24 03/29/24 03/29/24 19:25 22:02 23:49 MCV MCH MCHC RDW Plt Count MPV Immature Gran % (Auto) Neut % (Auto) Lymph % (Auto) [place] % (Auto) Eos % (Auto) Baso % (Auto) Lymph # (Auto) [place] # (Auto) Eos # (Auto) Baso # (Auto) Abs Immat Gran (auto) Absolute Neuts (auto) Absolute Nucleated RBC Nucleated RBC % (auto) Smear Tech's Comments PT INR Anion Gap Estim Creat Clear Calc Estimated GFR Random Glucose Lactic Acid 2.8 H* Lactic Acid F/U @ 2Hr 4.4 H* Lactic Acid F/U @ 4Hr Calcium Magnesium Total Bilirubin AST ALT Alkaline Phosphatase Total Protein Albumin Lipase Urine Color Urine Appearance Urine pH Ur Specific [place] Urine Protein Urine Glucose (UA) Urine Ketones Urine Blood Urine Nitrite Ur Leukocyte Esterase Urine RBC Urine WBC Ur Squamous Epith Cells Urine Bacteria Hyaline Casts C. difficile Tox B Gene NEGATIVE Influenza Type A (PCR) Influenza Type B (PCR) RSV RNA Qual (PCR) SARS-CoV-2 RNA (RT-PCR) 03/30/24 03/30/24 02:17 08:15 MCV 83.5 MCH 27.2 MCHC 32.5 RDW 16.9 H Plt Count 243 MPV 9.9 Immature Gran % (Auto) 1.5 H Neut % (Auto) 91.3 H Lymph % (Auto) 4.7 L [place] % (Auto) 2.3 Eos % (Auto) 0.0 Baso % (Auto) 0.2 Lymph # (Auto) 0.6 L [place] # (Auto) 0.3 Eos # (Auto) 0.0 Baso # (Auto) 0.0 Abs Immat Gran (auto) 0.18 H Absolute Neuts (auto) 10.9 H Absolute Nucleated RBC 0.000 Nucleated RBC % (auto) 0.0 Smear Tech's Comments VERIFIED PT INR Anion Gap 15 14 Estim Creat Clear Calc 46.8 55.3 Estimated GFR > 60 > 60 Random Glucose 213 H 158 H Lactic Acid Lactic Acid F/U @ 2Hr Lactic Acid F/U @ 4Hr 3.7 H* Calcium 7.8 L D 7.9 L Magnesium 1.9 Total Bilirubin 0.1 AST 12 ALT 11 Alkaline Phosphatase 96 Total Protein 5.8 L Albumin 2.7 L Lipase Urine Color Urine Appearance Urine pH Ur Specific [place] Urine Protein Urine Glucose (UA) Urine Ketones Urine Blood Urine Nitrite Ur Leukocyte Esterase Urine RBC Urine WBC Ur Squamous Epith Cells Urine Bacteria Hyaline Casts C. difficile Tox B Gene Influenza Type A (PCR) Influenza Type B (PCR) RSV RNA Qual (PCR) SARS-CoV-2 RNA (RT-PCR) Assessment and Plan (1) Pneumonia: Status: Acute Plan This is a 71-year-old female with a past medical history significant for persistent atrial fibrillation on Xarelto, CKD stage 3, abdominal aortic aneurysm (AAA) followed by [facility], COPD (not on home oxygen), GERD, history of uterine cancer, hyperlipidemia, hypertension, chronic indwelling Abdi catheter due to neurogenic bladder, sick sinus syndrome with a pacemaker in situ, and avascular necrosis of the left hip, presenting with weakness, diarrhea, and pneumonia. She also has a recent history of C. difficile infection. Sepsis d/t pneumonia Met sepsis criteria with leukocytosis, tachycardia, tachypnea-all improving continue IV ceftriaxone + azithro Blood cultures pending Diarrhea cdif colonization on previous admission but treated with 10 days of oral vancomycin due to persistent diarrhea Given treatment with antibiotics for above we will continue oral vancomycin C diff PCR negative on this admission PO vanco 125 qid Chronic AFib continue metoprolol, dig, check level continue xarelto AVN of left hip pain control outpatient follow up with ortho Hyperchloremic metabolic acidosis d/t diarrhea and IVF IVF and monitor Acute Lactic acidosis not d/t sepsis likely related to diarrhea AAA--stable followed by [facility] Hypomagnesemia IV replacement COPD unspecified no acute exacerbation continue home meds Neurogenic bladder chronic Abdi catheter in place UA not suggestive of uti Hypocalcemia When corrected for low albumin, normal mild elevation in troponin Appears chronically elevated, no chest pain DVT prophylaxis Xarelto Patient requires ongoing inpatient stay for management pneumonia and safe disposition Unable to care for herself at home, we will need PT evaluation prior to discharge Quality Stroke Does the patient have a stroke diagnosis?: No VTE Prior VTE?: No VTE Risk Level:: Medical - moderate - high VTE Device Contraindication: Treatment Not Indicated VTE Drug Contraindication: N/A - Med Ordered
--- NOTE | 2024-03-30 11:32 | PC.NURSE ---
Assumed care of this patient at 1100, patient resting quietly on stretcher at this time, states pain meds are helping/ pain is subsiding. IV fluids adjusted per mar, VSS.
--- NOTE | 2024-03-30 13:01 | MHC.CM.PN ---
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 PT REPORTS IF SHE GOES TO STR SHE PREFERS [place]. PT VERIFIES HCP ON FILE AND PCP IS PRITI MOORE.
[2024-03-30] MEDS: Rivaroxaban 20 MG TABLET PO (16:46)
[2024-03-30] MEDS: ondansetron HCL 4 MG/2 ML VIAL IVPUSH (16:47)
[2024-03-30] MEDS: Acetaminophen 325 MG TABLET 650 MG PO (20:44)
[2024-03-30] MEDS: cefTRIAXone sodium 1 GM VIAL IVPUSH (21:56)
[2024-03-30] MEDS: Atorvastatin Calcium 20 MG TABLET PO (21:56)
[2024-03-30] MEDS: Calcium Carbonate 750 MG TAB.CHEW PO (21:56)
[2024-03-31] VITALS (8 sets, daily range): BP systolic 125–148; BP diastolic 62–92; PULSE 69–85; RESP 16–22; TEMP 36.6–36.9; O2SAT 92–99; BMI 27.5
[2024-03-31] MEDS: vancomycin HCL 125 MG CAPSULE PO ×5 (01:12→23:43)
[2024-03-31] MEDS: HYDROcodone Bit/Acetam 5/325 TABLET 1 TAB PO ×3 (01:53→14:43)
[2024-03-31] MEDS: ondansetron HCL 4 MG/2 ML VIAL IVPUSH (01:54)
[2024-03-31 05:50] LABS: Anion Gap 13 (12-20); Blood Urea Nitrogen 17 mg/dL (9-16); Calcium 8.1 mg/dL (8.4-10.2); Carbon Dioxide 19 mmol/L (22-29); Chloride 111 mmol/L (96-108); Creatinine Clr Calc Pharmacy 62.6; Estimated Glomerular Filt Rate > 60; Glucose Random 102 mg/dL (60-115); Magnesium 1.8 mg/dL (1.6-2.6); Potassium 4.8 mmol/L (3.3-5.1); Sodium 138 mmol/L (135-145)
[2024-03-31] MEDS: Cyanocobalamin (Vitamin B-12) 1,000 MCG TABLET 1000 MCG PO (08:14)
[2024-03-31] MEDS: Omeprazole 20 MG CAPSULE.DR PO (08:14)
[2024-03-31] MEDS: Cholecalciferol (Vitamin D3) 25 MCG TABLET PO (08:14)
[2024-03-31] MEDS: Dicyclomine HCl 10 MG CAPSULE PO ×2 (08:14→21:12)
[2024-03-31] MEDS: Metoprolol Tartrate 50 MG TABLET PO ×2 (08:15→21:12)
[2024-03-31] MEDS: Escitalopram Oxalate 10 MG TABLET PO (08:15)
[2024-03-31] MEDS: Ascorbic Acid 500 MG TABLET 1000 MG PO (08:15)
[2024-03-31] MEDS: Ferrous Sulfate 324 MG TABLET.DR PO (08:15)
[2024-03-31] MEDS: Folic Acid 1 MG TABLET PO (08:15)
[2024-03-31] MEDS: Albuterol/Iprat 2.5/0.5MG 3 ML AMPUL.NEB INHALE (08:24)
--- NOTE | 2024-03-31 09:17 | PC.NURSE ---
Resumed care of patient at 0700, she is resting in bed at this time, IVF stopped per provider on morning rounds, breathing treatment given d/t SOB, 02 normal at this time. Pt is still having mushy stools, is able to know when she is con but also has incon episodes at times, abdi draining well. plan of care given to pt, awaiting Pt eval at this time, pending safe dispo.
[2024-03-31] MEDS: Methenamine Hippurate 1 GM TABLET PO (10:47)
[2024-03-31] MEDS: Zinc Sulfate 220 MG CAPSULE PO (10:47)
[2024-03-31] MEDS: Azithromycin 250 MG TABLET PO (10:48)
--- NOTE | 2024-03-31 11:27 | HO.PM.IMPN ---
Subjective Subjective Date of Service: 03/31/24 Interval History: Seen and examined this morning Follow-up for pneumonia, diarrhea Diarrhea improving No shortness a breath, persistent cough Review of Systems Review of Systems: Yes all other systems are reviewed and are negative Constitutional Constitutional: Denies chills and Denies fever(s) Cardiovascular Cardiovascular: Denies chest pain, Denies palpitations and Denies dyspnea Respiratory Respiratory: Reports cough and Denies dyspnea Gastrointestinal Gastrointestinal: Denies abdominal pain, Denies nausea and Denies vomiting Endocrine Endocrine: Denies palpitations Physical Exam Vital Signs: Vital Signs: Last Vital Signs Temp 97.9 F 03/31/24 10:13 Pulse 72 03/31/24 10:13 Resp 16 03/31/24 10:13 BP 147/83 H 03/31/24 10:13 Pulse Ox 98 03/31/24 10:13 O2 Del Method Room Air 03/31/24 10:13 BMI result Body Mass Index 27.5 Const: General: cooperative, comfortable, alert and awake Orientation/consciousness: patient oriented x3 Resp: Other: diminished breath sounds, decreased respiratory effort Effort & Inspection: normal respiratory effort, able to speak in complete sentences, no respiratory distress and no use of accessory muscles Cardio: Rate: regular rate GI: Inspection: No distended Palpation (GI): Soft to palpation and nontender : Other: abdi draining clear yellow urine Neuro: General: patient oriented x3, moves all extremities and CN's II-XI intact bilaterally Extrem: General: Yes no pedal edema Objective Data Active Medications Acetaminophen (Acetaminophen 325 Mg Tablet) 650 mg PO Q6H PRN PRN Reason: Pain, Mild 1-3,fever,headache Last Admin: 03/30/24 20:44 Dose: 650 mg Documented By: ZACHARY Hydrocodone Bitart/Acetaminophen (Hydrocodone Bit/Acetam 5/325 Tablet) 1 tab PO Q6H PRN PRN Reason: Pain, Severe (Pain Scale 7-10) Last Admin: 03/31/24 08:15 Dose: 1 tab Documented By: NAZARIO Albuterol Sulfate (Albuterol Sulfate 90 Mcg 8 Gm Inhaler) 2 puff INHALE Q6H PRN PRN Reason: wheezing Albuterol/Ipratropium (Albuterol/Iprat 2.5/0.5mg 3 Ml Ampul.Neb) 3 ml INHALE Q4H PRN PRN Reason: Wheezing Last Admin: 03/31/24 08:24 Dose: 3 ml Documented By: NAZARIO Ascorbic Acid (Ascorbic Acid 500 Mg Tablet) 1,000 mg PO DAILY [facility] Last Admin: 03/31/24 08:15 Dose: 1,000 mg Documented By: NAZARIO Atorvastatin Calcium (Atorvastatin Calcium 20 Mg Tablet) 20 mg PO BEDTIME [facility] Last Admin: 03/30/24 21:56 Dose: 20 mg Documented By: ZACHARY Azithromycin (Azithromycin 250 Mg Tablet) 250 mg PO Q24H [facility] Stop: 04/03/24 09:16 Last Admin: 03/31/24 10:48 Dose: 250 mg Documented By: ADI Calcium Carbonate (Calcium Carbonate 750 Mg Tab.Chew) 750 mg PO Q4H PRN PRN Reason: Heartburn Last Admin: 03/30/24 21:56 Dose: 750 mg Documented By: ZACHARY Ceftriaxone Sodium (Ceftriaxone Sodium 1 Gm Vial) 1 gm IVPUSH Q24H [facility] Last Admin: 03/30/24 21:56 Dose: 1 gm Documented By: ZACHARY Cyanocobalamin (Cyanocobalamin (Vitamin B-12) 1,000 Mcg Tablet) 1,000 mcg PO DAILY [facility] Last Admin: 03/31/24 08:14 Dose: 1,000 mcg Documented By: NAZARIO Dicyclomine HCl (Dicyclomine Hcl 10 Mg Capsule) 10 mg PO BID [facility] Last Admin: 03/31/24 08:14 Dose: 10 mg Documented By: NAZARIO Digoxin (Digoxin 0.125 Mg Tablet) 0.125 mg PO Q48H [facility]; Protocol Last Admin: 03/30/24 09:14 Dose: 0.125 mg Documented By: NANDO Escitalopram Oxalate (Escitalopram Oxalate 10 Mg Tablet) 10 mg PO DAILY [facility] Last Admin: 03/31/24 08:15 Dose: 10 mg Documented By: NAZARIO Ferrous Sulfate (Ferrous Sulfate 324 Mg Tablet.Dr) 324 mg PO DAILY [facility] Last Admin: 03/31/24 08:15 Dose: 324 mg Documented By: NAZARIO Fluticasone Propionate (Fluticasone Propionate Nasal 16 Gm [place]) 2 spray NOSTRIL-B DAILY PRN PRN Reason: Allergy Symptoms Folic Acid (Folic Acid 1 Mg Tablet) 1 mg PO DAILY [facility] Last Admin: 03/31/24 08:15 Dose: 1 mg Documented By: NAZARIO Magnesium Hydroxide (Milk Of Magnesia 30 Ml Oral.Susp) 30 ml PO DAILY PRN PRN Reason: Constipation Melatonin (Melatonin 3 Mg Tablet) 6 mg PO BEDTIME PRN PRN Reason: Insomnia Methenamine Hippurate (Methenamine Hippurate 1 Gm Tablet) 1 gm PO DAILY [facility] Last Admin: 03/31/24 10:47 Dose: 1 gm Documented By: ADI Metoprolol Tartrate (Metoprolol Tartrate 50 Mg Tablet) 50 mg PO BID [facility]; Protocol Last Admin: 03/31/24 08:15 Dose: 50 mg Documented By: NAZARIO Non-Formulary Medication (Colesevelam) 1,250 mg PO BID [facility] Non-Formulary Medication (Estradiol) 2 gm VAGINAL MOFR [facility] Omeprazole (Omeprazole 20 Mg Capsule.Dr) 20 mg PO DAILY@0630 [facility] Last Admin: 03/31/24 08:14 Dose: 20 mg Documented By: NAZARIO Ondansetron HCl (Ondansetron Hcl 4 Mg/2 Ml Vial) 4 mg IVPUSH Q8H PRN PRN Reason: Nausea and Vomiting Last Admin: 03/31/24 01:54 Dose: 4 mg Documented By: ZACHARY Prochlorperazine Maleate (Prochlorperazine Maleate 5 Mg Tablet) 5 mg PO Q12H PRN PRN Reason: for nausea/vomiting Rivaroxaban (Rivaroxaban 20 Mg Tablet) 20 mg PO DAILY@1700 [facility] Last Admin: 03/30/24 16:46 Dose: 20 mg Documented By: NICOLE Simethicone (Simethicone 80 Mg Tab.Chew) 160 mg PO BID [facility] Last Admin: 03/31/24 08:15 Dose: Not Given Documented By: NAZARIO Non-Admin Reason: Patient Refused Sodium Chloride (0.9 % Sodium Chloride Flush 3 Ml Syringe) 3 ml IVFLUSH QSHIFT [facility] Last Admin: 03/31/24 09:10 Dose: Not Given Documented By: NAZARIO Non-Admin Reason: IV Running Vancomycin HCl (Vancomycin Hcl 125 Mg Capsule) 125 mg PO Q6H [facility] Last Admin: 02/23/25 10:47 Dose: 125 mg Documented By: ADI Vitamin D (Cholecalciferol (Vitamin D3) 25 Mcg Tablet) 25 mcg PO DAILY [facility] Last Admin: 03/31/24 08:14 Dose: 25 mcg Documented By: ANZARIO Zinc Sulfate (Zinc Sulfate 220 Mg Capsule) 220 mg PO DAILY [facility] Last Admin: 03/31/24 10:47 Dose: 220 mg Documented By: ADI Labs 03/30/24 02:17 03/31/24 05:05 Labs: Laboratory Results - last 24 hr 03/31/24 05:05 Hold Purple Top SEE NOTE Anion Gap 13 Estim Creat Clear Calc 62.6 Estimated GFR > 60 Random Glucose 102 Calcium 8.1 L Magnesium 1.8 Microbiology Microbiology Results: Microbiology 03/29/24 19:25 Blood Culture - Preliminary Blood - Venous No growth after 24 hours. 03/29/24 19:25 Blood Culture - Preliminary Blood - Venous No growth after 24 hours. 03/29/24 Unknown Urine Culture - Preliminary Urine Catheterized - Straight Catheter Culture too young to evaluate. Assessment and Plan (1) Sepsis: Status: Acute (2) Pneumonia: Status: Acute Plan This is a 71-year-old female with a past medical history significant for persistent atrial fibrillation on Xarelto, CKD stage 3, abdominal aortic aneurysm (AAA) followed by [facility], COPD (not on home oxygen), GERD, history of uterine cancer, hyperlipidemia, hypertension, chronic indwelling Badi catheter due to neurogenic bladder, sick sinus syndrome with a pacemaker in situ, and avascular necrosis of the left hip, presenting with weakness, diarrhea, and pneumonia. She also has a recent history of C. difficile infection. Sepsis d/t pneumonia Met sepsis criteria with leukocytosis, tachycardia, tachypnea-all improving continue IV ceftriaxone + azithro Blood cultures negative to date Continue p.r.n. breathing treatments Diarrhea cdif colonization on previous admission but treated with 10 days of oral vancomycin due to persistent diarrhea Given treatment with antibiotics for above we will continue oral vancomycin fur duration of antibiotic therapy C diff PCR negative on this admission continue PO vanco 125 qid Chronic AFib continue metoprolol, dig, check level continue xarelto AVN of left hip pain control outpatient follow up with ortho Hyperchloremic metabolic acidosis d/t diarrhea and IVF improving, bicarb up to 19 will d/c IVF Acute Lactic acidosis not d/t sepsis likely related to diarrhea AAA--stable followed by [facility] Hypomagnesemia s/p replacement COPD unspecified no acute exacerbation continue home meds Neurogenic bladder chronic Abdi catheter in place UA not suggestive of uti Hypocalcemia When corrected for low albumin, normal mild elevation in troponin Appears chronically elevated, no chest pain DVT prophylaxis Xarelto Patient requires ongoing inpatient stay for management pneumonia and safe disposition Unable to care for herself at home, we will need PT evaluation prior to discharge Quality Stroke Does the patient have a stroke diagnosis?: No VTE Prior VTE?: No VTE Risk Level:: Medical - moderate - high VTE Device Contraindication: Treatment Not Indicated VTE Drug Contraindication: N/A - Med Ordered
--- NOTE | 2024-03-31 15:58 | PC.NURSE ---
Pt with chronic abdi. Requesting abdi change since hasn't been done in 7 weeks. Order to change abdi. 18fr abdi inserted without difficulty.
[2024-03-31] MEDS: Rivaroxaban 20 MG TABLET PO (17:49)
[2024-03-31] MEDS: 0.9 % Sodium Chloride Flush 3 ML SYRINGE IVFLUSH ×2 (17:49→21:12)
[2024-03-31] MEDS: Loperamide HCl 2 MG CAPSULE PO (17:49)
--- NOTE | 2024-03-31 19:23 | PC.NURSE ---
Pt with multiple loose stools after lunch. Provider notified and Stool Panel ordered and collected. Susan-area increasing redness. Barrier cream and triad applied.
[2024-03-31] MEDS: Atorvastatin Calcium 20 MG TABLET PO (21:12)
[2024-03-31] MEDS: cefTRIAXone sodium 1 GM VIAL IVPUSH (21:12)
[2024-04-01 03:45] VITALS: BP 157/89; PULSE 80; RESP 18; TEMP 37.2; O2SAT 93
[2024-04-01] MEDS: vancomycin HCL 125 MG CAPSULE PO ×4 (05:34→23:31)
[2024-04-01] MEDS: Omeprazole 20 MG CAPSULE.DR PO (05:34)
[2024-04-01] MEDS: HYDROcodone Bit/Acetam 5/325 TABLET 1 TAB PO ×3 (05:47→19:38)
[2024-04-01 07:51] VITALS: BP 115/80; PULSE 114; RESP 18; TEMP 36.5; O2SAT 93
[2024-04-01] MEDS: Methenamine Hippurate 1 GM TABLET PO (08:59)
[2024-04-01] MEDS: Dicyclomine HCl 10 MG CAPSULE PO ×2 (08:59→19:40)
[2024-04-01] MEDS: Azithromycin 250 MG TABLET PO (08:59)
[2024-04-01] MEDS: Cholecalciferol (Vitamin D3) 25 MCG TABLET PO (08:59)
[2024-04-01] MEDS: Ferrous Sulfate 324 MG TABLET.DR PO (08:59)
[2024-04-01] MEDS: Folic Acid 1 MG TABLET PO (08:59)
[2024-04-01] MEDS: Metoprolol Tartrate 50 MG TABLET PO ×2 (08:59→19:39)
[2024-04-01] MEDS: Cyanocobalamin (Vitamin B-12) 1,000 MCG TABLET 1000 MCG PO (08:59)
[2024-04-01] MEDS: Ascorbic Acid 500 MG TABLET 1000 MG PO (08:59)
[2024-04-01] MEDS: 0.9 % Sodium Chloride Flush 3 ML SYRINGE IVFLUSH ×3 (09:00→19:40)
[2024-04-01] MEDS: Escitalopram Oxalate 10 MG TABLET PO (09:00)
[2024-04-01] MEDS: Zinc Sulfate 220 MG CAPSULE PO (09:00)
[2024-04-01] MEDS: Digoxin 0.125 MG TABLET PO (09:04)
[2024-04-01] MEDS: ondansetron HCL 4 MG/2 ML VIAL IVPUSH ×2 (09:32→19:47)
--- NOTE | 2024-04-01 09:46 | HO.PM.IMPN ---
Subjective Subjective Date of Service: 04/01/24 Interval History: Seen and examined this morning Follow-up for pneumonia, diarrhea Diarrhea improving No shortness a breath, persistent cough Review of Systems Review of Systems: Yes all other systems are reviewed and are negative Constitutional Constitutional: Denies chills and Denies fever(s) Cardiovascular Cardiovascular: Denies chest pain, Denies palpitations and Denies dyspnea Respiratory Respiratory: Reports cough and Denies dyspnea Gastrointestinal Gastrointestinal: Denies abdominal pain, Denies nausea and Denies vomiting Endocrine Endocrine: Denies palpitations Physical Exam Vital Signs: Vital Signs: Last Vital Signs Temp 97.7 F 04/01/24 07:51 Pulse 114 H 04/01/24 07:51 Resp 18 04/01/24 07:51 BP 115/80 04/01/24 07:51 Pulse Ox 93 04/01/24 07:51 O2 Del Method Room Air 04/01/24 07:51 BMI result Body Mass Index 27.5 Appearing in no acute distress lung sounds are clear to auscultation heart regular rate rhythm, clear S1, S2 positive bowel sounds, abdomen is soft, nontender neuro patient is alert x3, no focal deficits Objective Data Active Medications Acetaminophen (Acetaminophen 325 Mg Tablet) 650 mg PO Q6H PRN PRN Reason: Pain, Mild 1-3,fever,headache Last Admin: 03/30/24 20:44 Dose: 650 mg Documented By: ZACHARY Hydrocodone Bitart/Acetaminophen (Hydrocodone Bit/Acetam 5/325 Tablet) 1 tab PO Q6H PRN PRN Reason: Pain, Severe (Pain Scale 7-10) Last Admin: 04/01/24 05:47 Dose: 1 tab Documented By: RUSSEL Albuterol Sulfate (Albuterol Sulfate 90 Mcg 8 Gm Inhaler) 2 puff INHALE Q6H PRN PRN Reason: wheezing Albuterol/Ipratropium (Albuterol/Iprat 2.5/0.5mg 3 Ml Ampul.Neb) 3 ml INHALE Q4H PRN PRN Reason: Wheezing Last Admin: 03/31/24 08:24 Dose: 3 ml Documented By: NAZARIO Ascorbic Acid (Ascorbic Acid 500 Mg Tablet) 1,000 mg PO DAILY LUCY Last Admin: 04/01/24 08:59 Dose: 1,000 mg Documented By: MARQUIS Atorvastatin Calcium (Atorvastatin Calcium 20 Mg Tablet) 20 mg PO BEDTIME [facility] Last Admin: 03/31/24 21:12 Dose: 20 mg Documented By: RUSSEL Azithromycin (Azithromycin 250 Mg Tablet) 250 mg PO Q24H LUCY Stop: 04/03/24 09:16 Last Admin: 04/01/24 08:59 Dose: 250 mg Documented By: MARQUIS Calcium Carbonate (Calcium Carbonate 750 Mg Tab.Chew) 750 mg PO Q4H PRN PRN Reason: Heartburn Last Admin: 03/30/24 21:56 Dose: 750 mg Documented By: ZACHARY Ceftriaxone Sodium (Ceftriaxone Sodium 1 Gm Vial) 1 gm IVPUSH Q24H [facility] Last Admin: 03/31/24 21:12 Dose: 1 gm Documented By: RUSSEL Cyanocobalamin (Cyanocobalamin (Vitamin B-12) 1,000 Mcg Tablet) 1,000 mcg PO DAILY [facility] Last Admin: 04/01/24 08:59 Dose: 1,000 mcg Documented By: MARQUIS Dicyclomine HCl (Dicyclomine Hcl 10 Mg Capsule) 10 mg PO BID [facility] Last Admin: 04/01/24 08:59 Dose: 10 mg Documented By: MARQUIS Digoxin (Digoxin 0.125 Mg Tablet) 0.125 mg PO Q48H [facility]; Protocol Last Admin: 04/01/24 09:04 Dose: 0.125 mg Documented By: MARQUIS Escitalopram Oxalate (Escitalopram Oxalate 10 Mg Tablet) 10 mg PO DAILY [facility] Last Admin: 04/01/24 09:00 Dose: 10 mg Documented By: MARQUIS Ferrous Sulfate (Ferrous Sulfate 324 Mg Tablet.Dr) 324 mg PO DAILY [facility] Last Admin: 04/01/24 08:59 Dose: 324 mg Documented By: MARQUIS Fluticasone Propionate (Fluticasone Propionate Nasal 16 Gm [place]) 2 spray NOSTRIL-B DAILY PRN PRN Reason: Allergy Symptoms Folic Acid (Folic Acid 1 Mg Tablet) 1 mg PO DAILY [facility] Last Admin: 04/01/24 08:59 Dose: 1 mg Documented By: MARQUIS Loperamide HCl (Loperamide Hcl 2 Mg Capsule) 2 mg PO Q6H PRN PRN Reason: Diarrhea Last Admin: 03/31/24 17:49 Dose: 2 mg Documented By: ADI Magnesium Hydroxide (Milk Of Magnesia 30 Ml Oral.Susp) 30 ml PO DAILY PRN PRN Reason: Constipation Melatonin (Melatonin 3 Mg Tablet) 6 mg PO BEDTIME PRN PRN Reason: Insomnia Methenamine Hippurate (Methenamine Hippurate 1 Gm Tablet) 1 gm PO DAILY [facility] Last Admin: 04/01/24 08:59 Dose: 1 gm Documented By: MARQUIS Metoprolol Tartrate (Metoprolol Tartrate 50 Mg Tablet) 50 mg PO BID [facility]; Protocol Last Admin: 04/01/24 08:59 Dose: 50 mg Documented By: MARQUIS Non-Formulary Medication (Colesevelam) 1,250 mg PO BID [facility] Non-Formulary Medication (Estradiol) 2 gm VAGINAL MOFR [facility] Omeprazole (Omeprazole 20 Mg Capsule.Dr) 20 mg PO DAILY@0630 [facility] Last Admin: 04/01/24 05:34 Dose: 20 mg Documented By: RUSSEL Ondansetron HCl (Ondansetron Hcl 4 Mg/2 Ml Vial) 4 mg IVPUSH Q8H PRN PRN Reason: Nausea and Vomiting Last Admin: 04/01/24 09:32 Dose: 4 mg Documented By: MARQUIS Prochlorperazine Maleate (Prochlorperazine Maleate 5 Mg Tablet) 5 mg PO Q12H PRN PRN Reason: for nausea/vomiting Rivaroxaban (Rivaroxaban 20 Mg Tablet) 20 mg PO DAILY@1700 [facility] Last Admin: 03/31/24 17:49 Dose: 20 mg Documented By: ADI Simethicone (Simethicone 80 Mg Tab.Chew) 160 mg PO BID [facility] Last Admin: 04/01/24 09:07 Dose: Not Given Documented By: MARQUIS Non-Admin Reason: Patient Refused Sodium Chloride (0.9 % Sodium Chloride Flush 3 Ml Syringe) 3 ml IVFLUSH QSHIFT [facility] Last Admin: 04/01/24 09:00 Dose: 3 ml Documented By: MARQUIS Vancomycin HCl (Vancomycin Hcl 125 Mg Capsule) 125 mg PO Q6H [facility] Last Admin: 04/01/24 05:34 Dose: 125 mg Documented By: RUSSEL Vitamin D (Cholecalciferol (Vitamin D3) 25 Mcg Tablet) 25 mcg PO DAILY [facility] Last Admin: 04/01/24 08:59 Dose: 25 mcg Documented By: MARQUIS Zinc Sulfate (Zinc Sulfate 220 Mg Capsule) 220 mg PO DAILY LUCY Last Admin: 04/01/24 09:00 Dose: 220 mg Documented By: MARQUIS Labs 03/30/24 02:17 03/31/24 05:05 Microbiology Microbiology Results: Microbiology 03/29/24 19:25 Blood Culture - Preliminary Blood - Venous No growth after 48 hours. 03/29/24 19:25 Blood Culture - Preliminary Blood - Venous No growth after 48 hours. 03/29/24 Unknown Urine Culture - Final Urine Catheterized - Straight Catheter Assessment and Plan (1) Sepsis: Status: Acute (2) Pneumonia: Status: Acute Plan This is a 71-year-old female with a past medical history significant for persistent atrial fibrillation on Xarelto, CKD stage 3, abdominal aortic aneurysm (AAA) followed by [facility], COPD (not on home oxygen), GERD, history of uterine cancer, hyperlipidemia, hypertension, chronic indwelling Cadet catheter due to neurogenic bladder, sick sinus syndrome with a pacemaker in situ, and avascular necrosis of the left hip, presenting with weakness, diarrhea, and pneumonia. She also has a recent history of C. difficile infection. Sepsis d/t pneumonia Met sepsis criteria with leukocytosis, tachycardia, tachypnea-all improving continue IV ceftriaxone + azithro Blood cultures negative to date Continue p.r.n. breathing treatments Diarrhea cdif colonization on previous admission but treated with 10 days of oral vancomycin due to persistent diarrhea Given treatment with antibiotics for above we will continue oral vancomycin fur duration of antibiotic therapy C diff PCR negative on this admission continue PO vanco 125 qid Chronic AFib continue metoprolol, dig, check level continue xarelto AVN of left hip pain control outpatient follow up with ortho Hyperchloremic metabolic acidosis d/t diarrhea and IVF improving, bicarb up to 19 will d/c IVF Acute Lactic acidosis not d/t sepsis likely related to diarrhea AAA--stable followed by [facility] Hypomagnesemia s/p replacement COPD unspecified no acute exacerbation continue home meds Neurogenic bladder chronic Cadet catheter in place UA not suggestive of uti Hypocalcemia When corrected for low albumin, normal mild elevation in troponin Appears chronically elevated, no chest pain DVT prophylaxis Xarelto Patient requires ongoing inpatient stay for management pneumonia and safe disposition Unable to care for herself at home, we will need PT evaluation prior to discharge Quality Stroke Does the patient have a stroke diagnosis?: No VTE Prior VTE?: No VTE Risk Level:: Medical - moderate - high VTE Device Contraindication: Treatment Not Indicated VTE Drug Contraindication: N/A - Med Ordered
[2024-04-01] MEDS: Albuterol/Iprat 2.5/0.5MG 3 ML AMPUL.NEB INHALE (09:56)
[2024-04-01 10:00] VITALS: PULSE 99; RESP 18; O2SAT 99
[2024-04-01] MEDS: Loperamide HCl 2 MG CAPSULE PO (10:19)
[2024-04-01 11:58] LABS: Adenovirus F 40/41 Not Detected (Not Detect.); Astrovirus Not Detected (Not Detect.); Campylobacter Not Detected (Not Detect.); Cryptosporidium Not Detected (Not Detect.); Cyclospora cayetanensis Not Detected (Not Detect.); E. coli EAEC Not Detected (Not Detect.); E. coli EPEC Not Detected (Not Detect.); E. coli ETEC Not Detected (Not Detect.); E. coli STEC Not Detected (Not Detect.); Entamoeba histolytica Not Detected (Not Detect.); Giardia lamblia Not Detected (Not Detect.); Norovirus GI/GII Not Detected (Not Detect.); Plesiomonas shigelloides Not Detected (Not Detect.); Rotavirus A Not Detected (Not Detect.); Salmonella Not Detected (Not Detect.); Sapovirus Not Detected (Not Detect.); Shigella sp./EIEC Not Detected (Not Detect.); Vibrio Not Detected (Not Detect.); Vibrio Cholerae Not Detected (Not Detect.); Yersinia enterocolitica Not Detected (Not Detect.)
--- NOTE | 2024-04-01 13:47 | MHC.CM.PN ---
PER MD ROUNDS PATIENT NOT MEDICALLY CLEARED FOR DC. PT RECOMMENDING STR. PATIENT AGREEABLE AND PREFERS [facility]. REFERRALS SENT VIA [facility]. CM WILL CONTINUE TO FOLLOW.
[2024-04-01 15:44] VITALS: BP 119/75; PULSE 93; RESP 14; TEMP 36.7; O2SAT 97
[2024-04-01] MEDS: Rivaroxaban 20 MG TABLET PO (17:12)
[2024-04-01 19:39] VITALS: BP 133/80; PULSE 93
[2024-04-01] MEDS: Atorvastatin Calcium 20 MG TABLET PO (19:39)
[2024-04-01] MEDS: cefTRIAXone sodium 1 GM VIAL IVPUSH (19:39)
[2024-04-01 19:41] VITALS: BP 133/80; PULSE 93; RESP 18; TEMP 36.5; O2SAT 96
[2024-04-02 03:54] VITALS: BP 130/79; PULSE 82; RESP 18; TEMP 36.6; O2SAT 96
[2024-04-02] MEDS: vancomycin HCL 125 MG CAPSULE PO ×3 (05:24→17:02)
[2024-04-02] MEDS: Omeprazole 20 MG CAPSULE.DR PO (05:24)
[2024-04-02 08:00] VITALS: BP 145/84; PULSE 83; RESP 16; TEMP 36.6; O2SAT 96
[2024-04-02] MEDS: Methenamine Hippurate 1 GM TABLET PO (08:19)
[2024-04-02] MEDS: HYDROcodone Bit/Acetam 5/325 TABLET 1 TAB PO ×2 (08:19→18:13)
[2024-04-02] MEDS: Dicyclomine HCl 10 MG CAPSULE PO ×2 (08:19→21:50)
[2024-04-02] MEDS: Ferrous Sulfate 324 MG TABLET.DR PO (08:19)
[2024-04-02] MEDS: Metoprolol Tartrate 50 MG TABLET PO ×2 (08:19→21:50)
[2024-04-02] MEDS: Cholecalciferol (Vitamin D3) 25 MCG TABLET PO (08:19)
[2024-04-02] MEDS: Loperamide HCl 2 MG CAPSULE PO (08:19)
[2024-04-02] MEDS: Cyanocobalamin (Vitamin B-12) 1,000 MCG TABLET 1000 MCG PO (08:19)
[2024-04-02] MEDS: Folic Acid 1 MG TABLET PO (08:19)
[2024-04-02] MEDS: Azithromycin 250 MG TABLET PO (08:19)
[2024-04-02] MEDS: Zinc Sulfate 220 MG CAPSULE PO (08:19)
[2024-04-02] MEDS: Escitalopram Oxalate 10 MG TABLET PO (08:20)
[2024-04-02] MEDS: Ascorbic Acid 500 MG TABLET 1000 MG PO (08:20)
[2024-04-02] MEDS: 0.9 % Sodium Chloride Flush 3 ML SYRINGE IVFLUSH ×2 (08:23→21:51)
[2024-04-02 11:09] VITALS: BP 145/84; PULSE 83; O2SAT 96
--- NOTE | 2024-04-02 13:47 | P.PNIM_ITS ---
Subjective Subjective Date of Service: 04/02/24 Interval History: Seen and examined this morning Follow-up for pneumonia, diarrhea Diarrhea improving No shortness a breath, persistent cough Review of Systems Review of Systems: Yes all other systems are reviewed and are negative Constitutional Constitutional: Denies chills and Denies fever(s) Cardiovascular Cardiovascular: Denies chest pain, Denies palpitations and Denies dyspnea Respiratory Respiratory: Reports cough and Denies dyspnea Gastrointestinal Gastrointestinal: Denies abdominal pain, Denies nausea and Denies vomiting Endocrine Endocrine: Denies palpitations Physical Exam 2 Vital Signs: Vital Signs: Last Vital Signs Temp 98 F 04/02/24 08:00 Pulse 83 04/02/24 11:09 Resp 16 04/02/24 08:00 BP 145/84 H 04/02/24 11:09 Pulse Ox 96 04/02/24 11:09 O2 Del Method Room Air 04/02/24 08:00 BMI result Body Mass Index 27.5 Appearing in no acute distress lung sounds are clear to auscultation heart regular rate rhythm, clear S1, S2 positive bowel sounds, abdomen is soft, nontender neuro patient is alert x3, no focal deficits Objective Data Active Medications Acetaminophen (Acetaminophen 325 Mg Tablet) 650 mg PO Q6H PRN PRN Reason: Pain, Mild 1-3,fever,headache Last Admin: 03/30/24 20:44 Dose: 650 mg Documented By: ZACHARY Hydrocodone Bitart/Acetaminophen (Hydrocodone Bit/Acetam 5/325 Tablet) 1 tab PO Q6H PRN PRN Reason: Pain, Severe (Pain Scale 7-10) Last Admin: 04/02/24 08:19 Dose: 1 tab Documented By: MARQUIS Albuterol Sulfate (Albuterol Sulfate 90 Mcg 8 Gm Inhaler) 2 puff INHALE Q6H PRN PRN Reason: wheezing Albuterol/Ipratropium (Albuterol/Iprat 2.5/0.5mg 3 Ml Ampul.Neb) 3 ml INHALE Q4H PRN PRN Reason: Wheezing Last Admin: 04/01/24 09:56 Dose: 3 ml Documented By: FELISHA Ascorbic Acid (Ascorbic Acid 500 Mg Tablet) 1,000 mg PO DAILY LUCY Last Admin: 04/02/24 08:20 Dose: 1,000 mg Documented By: MARQUIS Atorvastatin Calcium (Atorvastatin Calcium 20 Mg Tablet) 20 mg PO BEDTIME [facility] Last Admin: 04/01/24 19:39 Dose: 20 mg Documented By: RUSSEL Azithromycin (Azithromycin 250 Mg Tablet) 250 mg PO Q24H LUCY Stop: 04/03/24 09:16 Last Admin: 04/02/24 08:19 Dose: 250 mg Documented By: MARQUIS Calcium Carbonate (Calcium Carbonate 750 Mg Tab.Chew) 750 mg PO Q4H PRN PRN Reason: Heartburn Last Admin: 03/30/24 21:56 Dose: 750 mg Documented By: ZACHARY Ceftriaxone Sodium (Ceftriaxone Sodium 1 Gm Vial) 1 gm IVPUSH Q24H [facility] Last Admin: 04/01/24 19:39 Dose: 1 gm Documented By: RUSSEL Cyanocobalamin (Cyanocobalamin (Vitamin B-12) 1,000 Mcg Tablet) 1,000 mcg PO DAILY [facility] Last Admin: 04/02/24 08:19 Dose: 1,000 mcg Documented By: MARQUIS Dicyclomine HCl (Dicyclomine Hcl 10 Mg Capsule) 10 mg PO BID [facility] Last Admin: 04/02/24 08:19 Dose: 10 mg Documented By: MARQUIS Digoxin (Digoxin 0.125 Mg Tablet) 0.125 mg PO Q48H [facility]; Protocol Last Admin: 04/01/24 09:04 Dose: 0.125 mg Documented By: MARQUIS Escitalopram Oxalate (Escitalopram Oxalate 10 Mg Tablet) 10 mg PO DAILY [facility] Last Admin: 04/02/24 08:20 Dose: 10 mg Documented By: MARQUIS Ferrous Sulfate (Ferrous Sulfate 324 Mg Tablet.Dr) 324 mg PO DAILY [facility] Last Admin: 04/02/24 08:19 Dose: 324 mg Documented By: MARQUIS Fluticasone Propionate (Fluticasone Propionate Nasal 16 Gm [place]) 2 spray NOSTRIL-B DAILY PRN PRN Reason: Allergy Symptoms Folic Acid (Folic Acid 1 Mg Tablet) 1 mg PO DAILY [facility] Last Admin: 04/02/24 08:19 Dose: 1 mg Documented By: MARQUIS Loperamide HCl (Loperamide Hcl 2 Mg Capsule) 2 mg PO Q6H PRN PRN Reason: Diarrhea Last Admin: 04/02/24 08:19 Dose: 2 mg Documented By: MARQUIS Magnesium Hydroxide (Milk Of Magnesia 30 Ml Oral.Susp) 30 ml PO DAILY PRN PRN Reason: Constipation Melatonin (Melatonin 3 Mg Tablet) 6 mg PO BEDTIME PRN PRN Reason: Insomnia Methenamine Hippurate (Methenamine Hippurate 1 Gm Tablet) 1 gm PO DAILY [facility] Last Admin: 04/02/24 08:19 Dose: 1 gm Documented By: MARQUIS Metoprolol Tartrate (Metoprolol Tartrate 50 Mg Tablet) 50 mg PO BID [facility]; Protocol Last Admin: 04/02/24 08:19 Dose: 50 mg Documented By: MARQUIS Non-Formulary Medication (Colesevelam) 1,250 mg PO BID [facility] Omeprazole (Omeprazole 20 Mg Capsule.Dr) 20 mg PO DAILY@0630 [facility] Last Admin: 04/02/24 05:24 Dose: 20 mg Documented By: RUSSEL Ondansetron HCl (Ondansetron Hcl 4 Mg/2 Ml Vial) 4 mg IVPUSH Q8H PRN PRN Reason: Nausea and Vomiting Last Admin: 04/01/24 19:47 Dose: 4 mg Documented By: RUSSEL Prochlorperazine Maleate (Prochlorperazine Maleate 5 Mg Tablet) 5 mg PO Q12H PRN PRN Reason: for nausea/vomiting Rivaroxaban (Rivaroxaban 20 Mg Tablet) 20 mg PO DAILY@1700 [facility] Last Admin: 04/01/24 17:12 Dose: 20 mg Documented By: MARQUIS Simethicone (Simethicone 80 Mg Tab.Chew) 160 mg PO BID [facility] Last Admin: 04/02/24 08:20 Dose: Not Given Documented By: MARQUIS Non-Admin Reason: Patient Refused Sodium Chloride (0.9 % Sodium Chloride Flush 3 Ml Syringe) 3 ml IVFLUSH QSHIFT [facility] Last Admin: 04/02/24 08:23 Dose: 3 ml Documented By: MARQUIS Vancomycin HCl (Vancomycin Hcl 125 Mg Capsule) 125 mg PO Q6H [facility] Last Admin: 04/02/24 11:53 Dose: 125 mg Documented By: MARQUIS Vitamin D (Cholecalciferol (Vitamin D3) 25 Mcg Tablet) 25 mcg PO DAILY [facility] Last Admin: 04/02/24 08:19 Dose: 25 mcg Documented By: MARQUIS Zinc Sulfate (Zinc Sulfate 220 Mg Capsule) 220 mg PO DAILY [facility] Last Admin: 04/02/24 08:19 Dose: 220 mg Documented By: MARQUIS Labs 03/30/24 02:17 03/31/24 05:05 Assessment and Plan (1) Sepsis: Status: Acute (2) Pneumonia: Status: Acute Plan This is a 71-year-old female with a past medical history significant for persistent atrial fibrillation on Xarelto, CKD stage 3, abdominal aortic aneurysm (AAA) followed by [facility], COPD (not on home oxygen), GERD, history of uterine cancer, hyperlipidemia, hypertension, chronic indwelling Cadet catheter due to neurogenic bladder, sick sinus syndrome with a pacemaker in situ, and avascular necrosis of the left hip, presenting with weakness, diarrhea, and pneumonia. She also has a recent history of C. difficile infection. Sepsis d/t pneumonia. Sepsis resolved Met sepsis criteria with leukocytosis, tachycardia, tachypnea-all improving continue IV ceftriaxone + azithro Blood cultures negative to date Continue p.r.n. breathing treatments Diarrhea cdif colonization on previous admission but treated with 10 days of oral vancomycin due to persistent diarrhea Given treatment with antibiotics for above we will continue oral vancomycin fur duration of antibiotic therapy C diff PCR negative on this admission continue PO vanco 125 qid Chronic AFib continue metoprolol, dig, check level continue xarelto AVN of left hip pain control outpatient follow up with ortho Hyperchloremic metabolic acidosis d/t diarrhea and IVF improving, bicarb up to 19 will d/c IVF Acute Lactic acidosis not d/t sepsis likely related to diarrhea AAA--stable followed by [facility] Hypomagnesemia s/p replacement COPD unspecified no acute exacerbation continue home meds Neurogenic bladder chronic Cadet catheter in place UA not suggestive of uti Hypocalcemia When corrected for low albumin, normal mild elevation in troponin Appears chronically elevated, no chest pain DVT prophylaxis Xarelto Patient requires ongoing inpatient stay for management pneumonia and safe disposition Quality Stroke Does the patient have a stroke diagnosis?: No VTE Prior VTE?: No VTE Risk Level:: Medical - moderate - high VTE Device Contraindication: Treatment Not Indicated VTE Drug Contraindication: N/A - Med Ordered
[2024-04-02 15:41] VITALS: BP 111/71; PULSE 89; RESP 14; TEMP 37; O2SAT 95
[2024-04-02] MEDS: Rivaroxaban 20 MG TABLET PO (17:02)
[2024-04-02] MEDS: cefTRIAXone sodium 1 GM VIAL IVPUSH (19:31)
[2024-04-02 19:37] VITALS: BP 117/67; PULSE 96; RESP 18; TEMP 36.7; O2SAT 96
[2024-04-02] MEDS: Atorvastatin Calcium 20 MG TABLET PO (21:49)
[2024-04-02 21:50] VITALS: BP 109/63; PULSE 72
[2024-04-03] MEDS: vancomycin HCL 125 MG CAPSULE PO ×5 (00:12→21:10)
[2024-04-03 03:41] VITALS: BP 146/82; PULSE 77; RESP 17; TEMP 36.6; O2SAT 97
[2024-04-03] MEDS: Omeprazole 20 MG CAPSULE.DR PO (06:22)
[2024-04-03 07:42] VITALS: BP 155/91; PULSE 102; RESP 18; TEMP 36.8; O2SAT 96
[2024-04-03] MEDS: HYDROcodone Bit/Acetam 5/325 TABLET 1 TAB PO ×2 (08:37→16:23)
[2024-04-03] MEDS: Cyanocobalamin (Vitamin B-12) 1,000 MCG TABLET 1000 MCG PO (08:39)
[2024-04-03] MEDS: Escitalopram Oxalate 10 MG TABLET PO (08:39)
[2024-04-03] MEDS: Dicyclomine HCl 10 MG CAPSULE PO ×2 (08:39→21:09)
[2024-04-03] MEDS: Digoxin 0.125 MG TABLET PO (08:39)
[2024-04-03] MEDS: Ferrous Sulfate 324 MG TABLET.DR PO (08:39)
[2024-04-03] MEDS: Ascorbic Acid 500 MG TABLET 1000 MG PO (08:39)
[2024-04-03] MEDS: Cholecalciferol (Vitamin D3) 25 MCG TABLET PO (08:39)
[2024-04-03] MEDS: Metoprolol Tartrate 50 MG TABLET PO ×2 (08:39→21:09)
[2024-04-03] MEDS: Azithromycin 250 MG TABLET PO (08:39)
[2024-04-03] MEDS: Folic Acid 1 MG TABLET PO (08:39)
[2024-04-03] MEDS: Zinc Sulfate 220 MG CAPSULE PO (08:39)
[2024-04-03] MEDS: Methenamine Hippurate 1 GM TABLET PO (08:39)
[2024-04-03] MEDS: 0.9 % Sodium Chloride Flush 3 ML SYRINGE IVFLUSH ×3 (08:40→21:10)
[2024-04-03] MEDS: ondansetron HCL 4 MG/2 ML VIAL IVPUSH (10:30)
--- NOTE | 2024-04-03 14:44 | P.PNIM_ITS ---
Subjective Subjective Date of Service: 04/03/24 Interval History: Seen and examined this morning Follow-up for pneumonia, diarrhea Diarrhea improving No shortness a breath Review of Systems Review of Systems: Yes all other systems are reviewed and are negative Constitutional Constitutional: Denies chills and Denies fever(s) Cardiovascular Cardiovascular: Denies chest pain, Denies palpitations and Denies dyspnea Respiratory Respiratory: Reports cough and Denies dyspnea Gastrointestinal Gastrointestinal: Denies abdominal pain, Denies nausea and Denies vomiting Endocrine Endocrine: Denies palpitations Physical Exam 2 Vital Signs: Vital Signs: Last Vital Signs Temp 98.3 F 04/03/24 07:42 Pulse 102 H 04/03/24 07:42 Resp 18 04/03/24 07:42 BP 155/91 H 04/03/24 07:42 Pulse Ox 96 04/03/24 07:42 O2 Del Method Room Air 04/03/24 07:42 BMI result Body Mass Index 27.5 Objective Data Active Medications Acetaminophen (Acetaminophen 325 Mg Tablet) 650 mg PO Q6H PRN PRN Reason: Pain, Mild 1-3,fever,headache Last Admin: 03/30/24 20:44 Dose: 650 mg Documented By: ZACHARY Hydrocodone Bitart/Acetaminophen (Hydrocodone Bit/Acetam 5/325 Tablet) 1 tab PO Q6H PRN PRN Reason: Pain, Severe (Pain Scale 7-10) Last Admin: 04/03/24 08:37 Dose: 1 tab Documented By: NISH Albuterol Sulfate (Albuterol Sulfate 90 Mcg 8 Gm Inhaler) 2 puff INHALE Q6H PRN PRN Reason: wheezing Albuterol/Ipratropium (Albuterol/Iprat 2.5/0.5mg 3 Ml Ampul.Neb) 3 ml INHALE Q4H PRN PRN Reason: Wheezing Last Admin: 04/01/24 09:56 Dose: 3 ml Documented By: FELISHA Ascorbic Acid (Ascorbic Acid 500 Mg Tablet) 1,000 mg PO DAILY [facility] Last Admin: 04/03/24 08:39 Dose: 1,000 mg Documented By: NISH Atorvastatin Calcium (Atorvastatin Calcium 20 Mg Tablet) 20 mg PO BEDTIME [facility] Last Admin: 04/02/24 21:49 Dose: 20 mg Documented By: MINA Calcium Carbonate (Calcium Carbonate 750 Mg Tab.Chew) 750 mg PO Q4H PRN PRN Reason: Heartburn Last Admin: 03/30/24 21:56 Dose: 750 mg Documented By: ZACHARY Ceftriaxone Sodium (Ceftriaxone Sodium 1 Gm Vial) 1 gm IVPUSH Q24H [facility] Last Admin: 04/02/24 19:31 Dose: 1 gm Documented By: SHAQUILLE Cyanocobalamin (Cyanocobalamin (Vitamin B-12) 1,000 Mcg Tablet) 1,000 mcg PO DAILY [facility] Last Admin: 04/03/24 08:39 Dose: 1,000 mcg Documented By: NISH Dicyclomine HCl (Dicyclomine Hcl 10 Mg Capsule) 10 mg PO BID [facility] Last Admin: 04/03/24 08:39 Dose: 10 mg Documented By: NISH Digoxin (Digoxin 0.125 Mg Tablet) 0.125 mg PO Q48H [facility]; Protocol Last Admin: 04/03/24 08:39 Dose: 0.125 mg Documented By: NISH Escitalopram Oxalate (Escitalopram Oxalate 10 Mg Tablet) 10 mg PO DAILY [facility] Last Admin: 04/03/24 08:39 Dose: 10 mg Documented By: NISH Ferrous Sulfate (Ferrous Sulfate 324 Mg Tablet.Dr) 324 mg PO DAILY [facility] Last Admin: 04/03/24 08:39 Dose: 324 mg Documented By: NISH Fluticasone Propionate (Fluticasone Propionate Nasal 16 Gm [place]) 2 spray NOSTRIL-B DAILY PRN PRN Reason: Allergy Symptoms Folic Acid (Folic Acid 1 Mg Tablet) 1 mg PO DAILY [facility] Last Admin: 04/03/24 08:39 Dose: 1 mg Documented By: NISH Loperamide HCl (Loperamide Hcl 2 Mg Capsule) 2 mg PO Q6H PRN PRN Reason: Diarrhea Last Admin: 04/02/24 08:19 Dose: 2 mg Documented By: MARQUIS Magnesium Hydroxide (Milk Of Magnesia 30 Ml Oral.Susp) 30 ml PO DAILY PRN PRN Reason: Constipation Melatonin (Melatonin 3 Mg Tablet) 6 mg PO BEDTIME PRN PRN Reason: Insomnia Methenamine Hippurate (Methenamine Hippurate 1 Gm Tablet) 1 gm PO DAILY [facility] Last Admin: 04/03/24 08:39 Dose: 1 gm Documented By: NISH Metoprolol Tartrate (Metoprolol Tartrate 50 Mg Tablet) 50 mg PO BID [facility]; Protocol Last Admin: 04/03/24 08:39 Dose: 50 mg Documented By: NISH Non-Formulary Medication (Colesevelam) 1,250 mg PO BID [facility] Omeprazole (Omeprazole 20 Mg Capsule.Dr) 20 mg PO DAILY@0630 [facility] Last Admin: 04/03/24 06:22 Dose: 20 mg Documented By: SHAQUILLE Ondansetron HCl (Ondansetron Hcl 4 Mg/2 Ml Vial) 4 mg IVPUSH Q8H PRN PRN Reason: Nausea and Vomiting Last Admin: 04/03/24 10:30 Dose: 4 mg Documented By: NISH Prochlorperazine Maleate (Prochlorperazine Maleate 5 Mg Tablet) 5 mg PO Q12H PRN PRN Reason: for nausea/vomiting Rivaroxaban (Rivaroxaban 20 Mg Tablet) 20 mg PO DAILY@1700 [facility] Last Admin: 04/02/24 17:02 Dose: 20 mg Documented By: MARQUIS Simethicone (Simethicone 80 Mg Tab.Chew) 160 mg PO BID [facility] Last Admin: 04/03/24 08:44 Dose: Not Given Documented By: NISH Non-Admin Reason: Patient Refused Sodium Chloride (0.9 % Sodium Chloride Flush 3 Ml Syringe) 3 ml IVFLUSH QSHIFT [facility] Last Admin: 04/03/24 08:40 Dose: 3 ml Documented By: NISH Vancomycin HCl (Vancomycin Hcl 125 Mg Capsule) 125 mg PO Q6H [facility] Last Admin: 04/03/24 12:17 Dose: 125 mg Documented By: NISH Vitamin D (Cholecalciferol (Vitamin D3) 25 Mcg Tablet) 25 mcg PO DAILY [facility] Last Admin: 04/03/24 08:39 Dose: 25 mcg Documented By: NISH Zinc Sulfate (Zinc Sulfate 220 Mg Capsule) 220 mg PO DAILY [facility] Last Admin: 04/03/24 08:39 Dose: 220 mg Documented By: NISH Labs 03/30/24 02:17 03/31/24 05:05 Assessment and Plan (1) Sepsis: Status: Acute (2) Pneumonia: Status: Acute Plan 71-year-old female with a past medical history significant for persistent atrial fibrillation on Xarelto, CKD stage 3, abdominal aortic aneurysm (AAA) followed by [facility], COPD (not on home oxygen), GERD, history of uterine cancer, hyperlipidemia, hypertension, chronic indwelling Cadet catheter due to neurogenic bladder, sick sinus syndrome with a pacemaker in situ, and avascular necrosis of the left hip, presenting with weakness, diarrhea, and pneumonia. She also has a recent history of C. difficile infection. Sepsis d/t pneumonia. Sepsis resolved s/p IV ceftriaxone + azithro Blood cultures negative to date Continue p.r.n. breathing treatments Diarrhea cdif colonization on previous admission but treated with 10 days of oral vancomycin due to persistent diarrhea continue oral vancomycin for duration of antibiotic therapy C diff PCR negative on this admission continue PO vanco 125 qid Chronic AFib continue metoprolol, dig, check level continue xarelto AVN of left hip pain control outpatient follow up with ortho Hyperchloremic metabolic acidosis d/t diarrhea and IVF. Resolved Acute Lactic acidosis not d/t sepsis likely related to diarrhea AAA stable followed by [facility] Hypomagnesemia. Resolved s/p replacement COPD unspecified no acute exacerbation continue home meds Neurogenic bladder chronic Cadet catheter in place UA not suggestive of uti Hypocalcemia When corrected for low albumin, normal mild elevation in troponin Appears chronically elevated, no chest pain DVT prophylaxis Xarelto Patient requires ongoing inpatient stay for management pneumonia and safe disposition Quality Stroke Does the patient have a stroke diagnosis?: No VTE Prior VTE?: No VTE Risk Level:: Medical - moderate - high VTE Device Contraindication: Treatment Not Indicated VTE Drug Contraindication: N/A - Med Ordered
--- NOTE | 2024-04-03 15:23 | PM.DS ---
DS: Providers Provider Date of admission: 03/29/24 23:42 Primary care physician: Raffy Orona MD Consults: 03/31/24 15:55 Consult to Wound Care Routine Reason for consultation: redness to marisol-area DS: Diagnosis Discharge Diagnosis (1) Sepsis: Status: Acute (2) Pneumonia: Status: Acute DS: Summary Hospital Course Hospital Course: History and physical as per admitting provider. A 71-year-old female with a past medical history significant for persistent atrial fibrillation on Xarelto, CKD stage 3, AAA followed by [facility], COPD (not on home oxygen), GERD, history of uterine cancer, hyperlipidemia, hypertension, chronic indwelling Abdi catheter due to neurogenic bladder, sick sinus syndrome with a pacemaker in situ, and avascular necrosis of the left hip presents following a fall at home. She was recently [place] [facility] [place] to 03/03/24 for C. difficile sepsis and subsequently discharged to [facility] rehab at [facility], where she stayed for 16 days before being discharged home on 03/28/24. Since discharge, she has experienced progressive weakness, persistent diarrhea, and worsening difficulty walking due to left hip avascular necrosis and associated pain. She reports an inability to care for herself at home. In the ED, labs revealed WBC of 15, lactic acid of 2.4, magnesium of 1.4, and troponin I of 20 (unchanged). C. difficile PCR was negative. UA showed positive leukocyte esterase but was otherwise normal. Flu, RSV, and COVID tests were negative. Imaging included a CT head and neck, which showed no acute findings, and a chest CT, which revealed left upper lobe consolidation. Findings are concerning for pneumonia in the setting of recent C. difficile infection, persistent diarrhea, and progressive functional decline. Ceftriaxone is given for pneumonia Sepsis d/t pneumonia. Sepsis resolved . s/p IV ceftriaxone + azithro. Blood cultures negative to date. Continue p.r.n. breathing treatments Diarrhea. cdif colonization on previous admission but treated with 10 days of oral vancomycin due to persistent diarrhea. continue oral vancomycin for duration of antibiotic therapy (started 03/29/24) C diff PCR negative on this admission. Chronic AFib. continue metoprolol, dig, xarelto AVN of left hip. pain control. outpatient follow up with ortho Hyperchloremic metabolic acidosis d/t diarrhea and IVF. Resolved Acute Lactic acidosis not d/t sepsis likely related to diarrhea AAA followed by [facility] Hypomagnesemia. Resolved s/p replacement COPD unspecified. no acute exacerbation. continue home meds Neurogenic bladder. chronic Abdi catheter in place. UA not suggestive of uti Hypocalcemia. When corrected for low albumin, normal mild elevation in troponin . Appears chronically elevated, no chest pain Physical Exam Vital Signs: Vital Signs: Last Vital Signs Temp 98.3 F 04/03/24 07:42 Pulse 102 H 04/03/24 07:42 Resp 18 04/03/24 07:42 BP 155/91 H 04/03/24 07:42 Pulse Ox 96 04/03/24 07:42 O2 Del Method Room Air 04/03/24 07:42 BMI result Body Mass Index 27.5 DS: Data Data Completed and Pending Labs on day of discharge: Preliminary micro results at discharge 03/29/24 19:25 Blood Culture - Preliminary Blood - Venous No growth after 48 hours. 03/29/24 19:25 Blood Culture - Preliminary Blood - Venous No growth after 48 hours. Discharge Plan Discharge Patient Disposition: [facility] Discharge Diagnosis: Sepsis Pneumonia Diarrhea with C diff colonization Chronic AFib Acute lactic acidosis Hypomagnesemia Hyperchloremic metabolic acidosis Referrals: Raffy Orona MD [Primary Care Provider] - 1 Week Discharge Medications: New vancomycin 125 mg Capsule 125 mg PO Q6H Qty: 20 0RF Continued ondansetron HCl 4 mg tablet 4 mg PO Q6H PRN (Reason: for nausea/vomiting) Qty: 60 2RF zinc sulfate 50 mg zinc (220 mg) capsule 50 mg PO DAILY Qty: 30 2RF simethicone [Anti-Gas Ultra Strength] 180 mg capsule 180 mg PO BID Qty: 60 1RF methenamine hippurate 1 gram tablet 1 g PO DAILY 90 Days Qty: 90 1RF prochlorperazine maleate 5 mg tablet 5 mg PO Q12H PRN (Reason: for nausea/vomiting) Qty: 30 3RF albuterol sulfate 90 mcg/actuation HFA aerosol inhaler 2 puff inhalation Q6H PRN (Reason: wheezing) ipratropium-albuterol 0.5 mg-3 mg(2.5 mg base)/3 mL Solution For Nebulization 3 ml INHALATION Q4H PRN (Reason: Wheezing) ascorbic acid (vitamin C) [Vitamin C] 500 mg Tablet 1,000 mg PO DAILY colesevelam 625 mg tablet 1,250 mg PO BID calcium carbonate [Tums 500] 500 mg calcium (1,250 mg) Tablet,Chewable 500 mg PO DAILY PRN (Reason: Dyspepsia) Culturelle 10 billion cell Capsule 1 cap PO DAILY fluticasone propionate 50 mcg/actuation spray,suspension 2 spray intranasal DAILY PRN (Reason: Allergy Symptoms) digoxin 125 mcg (0.125 mg) tablet 125 mcg PO Q OTHER DAY Rx Instructions: [facility] list reports until 04/04/24 pantoprazole 40 mg Tablet,Delayed Release (Dr/Ec) 40 mg PO DAILY@0630 dicyclomine 10 mg Capsule 10 mg PO BID magnesium citrate 100 mg Capsule 200 mg PO BEDTIME Xarelto 20 mg tablet 20 mg PO DAILY@1700 metoprolol tartrate 50 mg tablet 50 mg PO BID hydrocodone-acetaminophen 5-325 mg Tablet 1 tab PO Q6H PRN (Reason: Pain, Severe (Pain Scale 7-10)) Qty: 20 0RF Rx Instructions: Partial Fill upon patient request. folic acid 1 mg tablet 1 mg PO DAILY (DME) night bags See Rx Instructions .Route .MEDSUPPLY Qty: 1 11RF Rx Instructions: As directed- 1 catheter night bag per month ([facility] [place] catheter insertion kit See Rx Instructions .Route .MEDSUPPLY Qty: 2 11RF Rx Instructions: As directed- 2 kits per month ([facility] [place]) abdi catheters 18 pashto See Rx Instructions .Route .MEDSUPPLY Qty: 2 11RF Rx Instructions: As directed- 2 catheters per month ([facility] [place]) catheter irrigation kit See Rx Instructions .Route .MEDSUPPLY Qty: 2 11RF Rx Instructions: As directed- 2 kits per month ([facility] [place]) sterile water See Rx Instructions .Route .MEDSUPPLY Qty: 1 11RF Rx Instructions: As directed for abdi catheter irrigation ([facility] [place]) leg bags See Rx Instructions .Route .MEDSUPPLY Qty: 2 11RF Rx Instructions: 2 catheter leg bags per month simvastatin 40 mg tablet 40 mg PO BEDTIME escitalopram oxalate 10 mg tablet 10 mg PO DAILY cholecalciferol (vitamin D3) 25 mcg (1,000 unit) capsule 25 mcg PO DAILY cyanocobalamin (vitamin B-12) 1,000 mcg tablet 1,000 mcg PO DAILY estradiol 0.01 % (0.1 mg/gram) cream 2 g vaginal MOFR ferrous sulfate 325 mg (65 mg iron) tablet 325 mg PO DAILY Diet: Advance to usual diet Activity on Discharge: As tolerated Stand Alone Forms: Patient Portal Discharge page Print Language: [place] Care Plan Goals: Transfer to SNF for Rehab Health Concerns: Sepsis Pneumonia Diarrhea with C diff colonization Chronic AFib Acute lactic acidosis Hypomagnesemia Hyperchloremic metabolic acidosis Plan of Treatment: Follow-up with primary care provider as needed Take all medications as prescribed Assessment: See discharge summary
[2024-04-03 15:35] VITALS: BP 125/80; PULSE 84; RESP 17; TEMP 37; O2SAT 97
[2024-04-03] MEDS: Rivaroxaban 20 MG TABLET PO (16:23)
[2024-04-03] MEDS: Loperamide HCl 2 MG CAPSULE PO (16:23)
--- NOTE | 2024-04-03 16:45 | HO.WOUND ---
Wound Consult: Initial 73yr old?[place] [facility] [place] - See progress notes and H&P for detailed history.? Wound consult placed for Perineal and perirectal areas.?Unable to assess patient at this time chart review and discussion with direct care team reveals patient has frequent loose liquid stools. Reports red pink intact blanchable tissue - they are treating with barrier cream as the patient has reported she did not like the david spray and did not like the Tri[place] cream. Per direct care team tissue remains intact and blanchable. Will assess at future date and time however at this time recommend continuing with barrier cream twice daily and after each episode of incontinence. Changing the patient immediately upon incontinence will provide relief to her skin and ZACK mattress will aid in lowering her moisture level and overall temperature level of her skin in contact with the bed surface. Recommendation made below based on this conversation - will assess at future date and time. Recommendations: 1. Turn and Reposition every 2 hours and as needed for patient comfort.? Use pillows or wedges to support off loading positions. 2. Off Load all bony prominences with use of pillows and heel boots if needed.? Apply Preventative foams where needed. ? 3. Monitor for incontinence and moisture control, use barrier creams when needed for prevention and treatment. 4. Provide adequate and supplemental nutrition.? 5. Order low air loss mattress. 6. Perineal and Perianal - Off Load Pressure with Q2 hr turns and use of pillows - Cleanse with PH balance spray or wipes, pat dry. ?Apply thin layer of barrier cream to wound bed twice daily. Reapply thin layer PRN after each episode of incontinence. Re-consult wound care Nurse for wound deterioration or wound changes.
[2024-04-03 19:12] VITALS: BP 114/63; PULSE 91; RESP 18; TEMP 36.6; O2SAT 97
[2024-04-03] MEDS: Atorvastatin Calcium 20 MG TABLET PO (21:09)
[2024-04-03] MEDS: cefTRIAXone sodium 1 GM VIAL IVPUSH (21:10)
[2024-04-04 04:00] VITALS: BP 108/63; PULSE 83; RESP 18; TEMP 36.3; O2SAT 94
[2024-04-04] MEDS: Omeprazole 20 MG CAPSULE.DR PO (06:12)
[2024-04-04] MEDS: vancomycin HCL 125 MG CAPSULE PO ×4 (06:12→22:01)
[2024-04-04 07:52] VITALS: BP 126/80; PULSE 89; RESP 13; TEMP 36.3; O2SAT 96
[2024-04-04] MEDS: Acetaminophen 325 MG TABLET 650 MG PO (09:10)
[2024-04-04] MEDS: Cyanocobalamin (Vitamin B-12) 1,000 MCG TABLET 1000 MCG PO (09:11)
[2024-04-04] MEDS: Dicyclomine HCl 10 MG CAPSULE PO ×2 (09:11→22:01)
[2024-04-04] MEDS: Escitalopram Oxalate 10 MG TABLET PO (09:11)
[2024-04-04] MEDS: Ferrous Sulfate 324 MG TABLET.DR PO (09:11)
[2024-04-04] MEDS: Methenamine Hippurate 1 GM TABLET PO (09:11)
[2024-04-04] MEDS: Cholecalciferol (Vitamin D3) 25 MCG TABLET PO (09:11)
[2024-04-04] MEDS: Folic Acid 1 MG TABLET PO (09:12)
[2024-04-04] MEDS: Ascorbic Acid 500 MG TABLET 1000 MG PO (09:12)
[2024-04-04] MEDS: Metoprolol Tartrate 50 MG TABLET PO ×2 (09:12→22:02)
[2024-04-04] MEDS: Zinc Sulfate 220 MG CAPSULE PO (09:12)
[2024-04-04] MEDS: Loperamide HCl 2 MG CAPSULE PO (09:16)
[2024-04-04] MEDS: 0.9 % Sodium Chloride Flush 3 ML SYRINGE IVFLUSH ×3 (09:16→22:02)
[2024-04-04 11:32] VITALS: BP 126/80; PULSE 89; O2SAT 96
[2024-04-04] MEDS: HYDROcodone Bit/Acetam 5/325 TABLET 1 TAB PO ×2 (13:00→18:45)
--- NOTE | 2024-04-04 14:56 | MHC.CM.PN ---
Patient continues to await [facility] authorization for STR @ [facility]. CM called [facility] @ [phone], per rep the case is in clinician review. Requested expedited review, was instructed to leave a message for pre-registration department. Reference # [id number]. Patient updated. CM will continue to follow.
[2024-04-04 15:13] VITALS: BP 116/82; PULSE 83; RESP 16; TEMP 36.4; O2SAT 97
--- NOTE | 2024-04-04 15:33 | HO.PM.IMPN ---
Subjective Subjective Date of Service: 04/04/24 Interval History: seen and examined this morning follow up for pneumonia on room air, no sob Review of Systems Review of Systems: Yes all other systems are reviewed and are negative Constitutional Constitutional: Denies chills and Denies fever(s) Cardiovascular Cardiovascular: Denies chest pain, Denies palpitations and Denies dyspnea Respiratory Respiratory: Denies dyspnea Gastrointestinal Gastrointestinal: Denies abdominal pain and Reports diarrhea Endocrine Endocrine: Denies palpitations Physical Exam Vital Signs: Vital Signs: Last Vital Signs Temp 97.5 F 04/04/24 15:13 Pulse 83 04/04/24 15:13 Resp 16 04/04/24 15:13 BP 116/82 04/04/24 15:13 Pulse Ox 97 04/04/24 15:13 O2 Del Method Room Air 04/04/24 15:13 BMI result Body Mass Index 27.5 Const: General: cooperative, comfortable, alert and awake Orientation/consciousness: patient oriented x3 Resp: Effort & Inspection: normal respiratory effort, able to speak in complete sentences, no respiratory distress and no use of accessory muscles Cardio: Rate: regular rate GI: Inspection: No distended Palpation (GI): Soft to palpation and nontender : Other: abdi draining clear yellow urine Neuro: General: patient oriented x3, moves all extremities and CN's II-XI intact bilaterally Extrem: General: Yes no pedal edema Objective Data Active Medications Acetaminophen (Acetaminophen 325 Mg Tablet) 650 mg PO Q6H PRN PRN Reason: Pain, Mild 1-3,fever,headache Last Admin: 04/04/24 09:10 Dose: 650 mg Documented By: DINO Hydrocodone Bitart/Acetaminophen (Hydrocodone Bit/Acetam 5/325 Tablet) 1 tab PO Q6H PRN PRN Reason: Pain, Severe (Pain Scale 7-10) Last Admin: 04/04/24 13:00 Dose: 1 tab Documented By: DINO Albuterol Sulfate (Albuterol Sulfate 90 Mcg 8 Gm Inhaler) 2 puff INHALE Q6H PRN PRN Reason: wheezing Albuterol/Ipratropium (Albuterol/Iprat 2.5/0.5mg 3 Ml Ampul.Neb) 3 ml INHALE Q4H PRN PRN Reason: Wheezing Last Admin: 04/01/24 09:56 Dose: 3 ml Documented By: FELISHA Ascorbic Acid (Ascorbic Acid 500 Mg Tablet) 1,000 mg PO DAILY [facility] Last Admin: 04/04/24 09:12 Dose: 1,000 mg Documented By: DINO Atorvastatin Calcium (Atorvastatin Calcium 20 Mg Tablet) 20 mg PO BEDTIME [facility] Last Admin: 04/03/24 21:09 Dose: 20 mg Documented By: SHAQUILLE Calcium Carbonate (Calcium Carbonate 750 Mg Tab.Chew) 750 mg PO Q4H PRN PRN Reason: Heartburn Last Admin: 03/30/24 21:56 Dose: 750 mg Documented By: ZACHARY Ceftriaxone Sodium (Ceftriaxone Sodium 1 Gm Vial) 1 gm IVPUSH Q24H [facility] Last Admin: 04/03/24 21:10 Dose: 1 gm Documented By: SHAQUILLE Cyanocobalamin (Cyanocobalamin (Vitamin B-12) 1,000 Mcg Tablet) 1,000 mcg PO DAILY [facility] Last Admin: 04/04/24 09:11 Dose: 1,000 mcg Documented By: DINO Dicyclomine HCl (Dicyclomine Hcl 10 Mg Capsule) 10 mg PO BID [facility] Last Admin: 04/04/24 09:11 Dose: 10 mg Documented By: DINO Digoxin (Digoxin 0.125 Mg Tablet) 0.125 mg PO Q48H [facility]; Protocol Last Admin: 04/03/24 08:39 Dose: 0.125 mg Documented By: NISH Escitalopram Oxalate (Escitalopram Oxalate 10 Mg Tablet) 10 mg PO DAILY [facility] Last Admin: 04/04/24 09:11 Dose: 10 mg Documented By: DINO Ferrous Sulfate (Ferrous Sulfate 324 Mg Tablet.Dr) 324 mg PO DAILY [facility] Last Admin: 04/04/24 09:11 Dose: 324 mg Documented By: DINO Fluticasone Propionate (Fluticasone Propionate Nasal 16 Gm [place]) 2 spray NOSTRIL-B DAILY PRN PRN Reason: Allergy Symptoms Folic Acid (Folic Acid 1 Mg Tablet) 1 mg PO DAILY [facility] Last Admin: 04/04/24 09:12 Dose: 1 mg Documented By: DINO Loperamide HCl (Loperamide Hcl 2 Mg Capsule) 2 mg PO Q6H PRN PRN Reason: Diarrhea Last Admin: 04/04/24 09:16 Dose: 2 mg Documented By: DINO Magnesium Hydroxide (Milk Of Magnesia 30 Ml Oral.Susp) 30 ml PO DAILY PRN PRN Reason: Constipation Melatonin (Melatonin 3 Mg Tablet) 6 mg PO BEDTIME PRN PRN Reason: Insomnia Methenamine Hippurate (Methenamine Hippurate 1 Gm Tablet) 1 gm PO DAILY [facility] Last Admin: 04/04/24 09:11 Dose: 1 gm Documented By: DINO Metoprolol Tartrate (Metoprolol Tartrate 50 Mg Tablet) 50 mg PO BID [facility]; Protocol Last Admin: 04/04/24 09:12 Dose: 50 mg Documented By: DINO Non-Formulary Medication (Colesevelam) 1,250 mg PO BID [facility] Omeprazole (Omeprazole 20 Mg Capsule.Dr) 20 mg PO DAILY@0630 [facility] Last Admin: 04/04/24 06:12 Dose: 20 mg Documented By: SHAQUILLE Ondansetron HCl (Ondansetron Hcl 4 Mg/2 Ml Vial) 4 mg IVPUSH Q8H PRN PRN Reason: Nausea and Vomiting Last Admin: 04/03/24 10:30 Dose: 4 mg Documented By: NISH Prochlorperazine Maleate (Prochlorperazine Maleate 5 Mg Tablet) 5 mg PO Q12H PRN PRN Reason: for nausea/vomiting Rivaroxaban (Rivaroxaban 20 Mg Tablet) 20 mg PO DAILY@1700 [facility] Last Admin: 04/03/24 16:23 Dose: 20 mg Documented By: NIHARIKA Simethicone (Simethicone 80 Mg Tab.Chew) 160 mg PO BID [facility] Last Admin: 04/04/24 09:19 Dose: Not Given Documented By: DINO Non-Admin Reason: Patient Refused Sodium Chloride (0.9 % Sodium Chloride Flush 3 Ml Syringe) 3 ml IVFLUSH QSHIFT [facility] Last Admin: 04/04/24 09:16 Dose: 3 ml Documented By: DINO Vancomycin HCl (Vancomycin Hcl 125 Mg Capsule) 125 mg PO Q6H [facility] Last Admin: 04/04/24 12:58 Dose: 125 mg Documented By: DINO Vitamin D (Cholecalciferol (Vitamin D3) 25 Mcg Tablet) 25 mcg PO DAILY [facility] Last Admin: 04/04/24 09:11 Dose: 25 mcg Documented By: DINO Zinc Sulfate (Zinc Sulfate 220 Mg Capsule) 220 mg PO DAILY [facility] Last Admin: 04/04/24 09:12 Dose: 220 mg Documented By: DINO Labs 03/30/24 02:17 03/31/24 05:05 Microbiology Microbiology Results: Microbiology 03/29/24 19:25 Blood Culture - Final Blood - Venous No growth after 5 days. 03/29/24 19:25 Blood Culture - Final Blood - Venous No growth after 5 days. Assessment and Plan (1) Pneumonia: Status: Acute Plan 71-year-old female with a past medical history significant for persistent atrial fibrillation on Xarelto, CKD stage 3, abdominal aortic aneurysm (AAA) followed by [facility], COPD (not on home oxygen), GERD, history of uterine cancer, hyperlipidemia, hypertension, chronic indwelling Abdi catheter due to neurogenic bladder, sick sinus syndrome with a pacemaker in situ, and avascular necrosis of the left hip, presenting with weakness, diarrhea, and pneumonia. She also has a recent history of C. difficile infection. Sepsis d/t pneumonia. Sepsis resolved continue two more days of IV ceftriaxone, completed azithro Blood cultures negative to date Continue p.r.n. breathing treatments on room air Diarrhea cdif colonization on previous admission but treated with 10 days of oral vancomycin due to persistent diarrhea continue oral vancomycin for duration of antibiotic therapy C diff PCR negative on this admission continue PO vanco 125 qid Chronic AFib continue metoprolol, dig continue xarelto AVN of left hip pain control outpatient follow up with ortho Hyperchloremic metabolic acidosis d/t diarrhea and IVF. Resolved Acute Lactic acidosis not d/t sepsis likely related to diarrhea AAA stable followed by [facility] Hypomagnesemia. Resolved s/p replacement COPD unspecified no acute exacerbation continue home meds Neurogenic bladder chronic Abdi catheter in place UA not suggestive of uti Hypocalcemia When corrected for low albumin, normal mild elevation in troponin Appears chronically elevated, no chest pain DVT prophylaxis Xarelto Patient requires ongoing inpatient stay for management pneumonia and safe disposition Quality Stroke Does the patient have a stroke diagnosis?: No VTE Prior VTE?: No VTE Risk Level:: Medical - moderate - high VTE Device Contraindication: Treatment Not Indicated VTE Drug Contraindication: N/A - Med Ordered
[2024-04-04] MEDS: Rivaroxaban 20 MG TABLET PO (17:13)
[2024-04-04 19:09] VITALS: BP 116/72; PULSE 83; RESP 17; TEMP 36.4; O2SAT 96
[2024-04-04] MEDS: Atorvastatin Calcium 20 MG TABLET PO (22:02)
[2024-04-04] MEDS: cefTRIAXone sodium 1 GM VIAL IVPUSH (22:02)
[2024-04-05 03:46] VITALS: BP 127/78; PULSE 76; RESP 18; TEMP 36.5; O2SAT 97
[2024-04-05] MEDS: Omeprazole 20 MG CAPSULE.DR PO (06:01)
[2024-04-05] MEDS: vancomycin HCL 125 MG CAPSULE PO ×2 (06:01→11:56)
[2024-04-05] MEDS: 0.9 % Sodium Chloride Flush 3 ML SYRINGE IVFLUSH (07:20)
[2024-04-05] MEDS: Zinc Sulfate 220 MG CAPSULE PO (07:20)
[2024-04-05] MEDS: Cholecalciferol (Vitamin D3) 25 MCG TABLET PO (07:21)
[2024-04-05] MEDS: Cyanocobalamin (Vitamin B-12) 1,000 MCG TABLET 1000 MCG PO (07:21)
[2024-04-05] MEDS: Escitalopram Oxalate 10 MG TABLET PO (07:21)
[2024-04-05] MEDS: HYDROcodone Bit/Acetam 5/325 TABLET 1 TAB PO (07:21)
[2024-04-05] MEDS: Dicyclomine HCl 10 MG CAPSULE PO (07:21)
[2024-04-05] MEDS: Ferrous Sulfate 324 MG TABLET.DR PO (07:21)
[2024-04-05] MEDS: Folic Acid 1 MG TABLET PO (07:22)
[2024-04-05] MEDS: Methenamine Hippurate 1 GM TABLET PO (07:22)
[2024-04-05] MEDS: Metoprolol Tartrate 50 MG TABLET PO (07:22)
[2024-04-05] MEDS: Ascorbic Acid 500 MG TABLET 1000 MG PO (07:22)
[2024-04-05] MEDS: Digoxin 0.125 MG TABLET PO (07:23)
[2024-04-05 07:35] VITALS: BP 124/75; PULSE 83; RESP 17; TEMP 36.2; O2SAT 96
[2024-04-05] MEDS: ondansetron HCL 4 MG/2 ML VIAL IVPUSH (10:13)
[2024-04-05] MEDS: Loperamide HCl 2 MG CAPSULE PO (10:13)
--- NOTE | 2024-04-05 12:51 | MHC.CM.PN ---
[facility] has obtained auth. Patient will dc to [facility] via BLS @ 230pm. RN and PA aware. Last IMM 04/04.
--- NOTE | 2024-04-05 12:55 | PM.DS ---
DS: Providers Provider Date of Service: 04/05/24 Date of admission: 03/29/24 23:42 Date of discharge: 04/05/24 Primary care physician: Raffy Orona MD Consults: 03/31/24 15:55 Consult to Wound Care Routine Reason for consultation: redness to marisol-area Attending physician on discharge: Porfirio Pastrana Discharging clinician: Daphne Huitron DS: Diagnosis Discharge Diagnosis (1) Pneumonia: Status: Resolved DS: Summary Hospital Course Hospital Course: History and physical as per admitting provider. A 71-year-old female with a past medical history significant for persistent atrial fibrillation on Xarelto, CKD stage 3, AAA followed by [facility], COPD (not on home oxygen), GERD, history of uterine cancer, hyperlipidemia, hypertension, chronic indwelling Abdi catheter due to neurogenic bladder, sick sinus syndrome with a pacemaker in situ, and avascular necrosis of the left hip presents following a fall at home. She was recently hospitalized at [facility] from 02/28/24 to 03/03/24 for C. difficile sepsis and subsequently discharged to [facility] rehab at [facility], where she stayed for 16 days before being discharged home on 03/28/24. Since discharge, she has experienced progressive weakness, persistent diarrhea, and worsening difficulty walking due to left hip avascular necrosis and associated pain. She reports an inability to care for herself at home. In the ED, labs revealed WBC of 15, lactic acid of 2.4, magnesium of 1.4, and troponin I of 20 (unchanged). C. difficile PCR was negative. UA showed positive leukocyte esterase but was otherwise normal. Flu, RSV, and COVID tests were negative. Imaging included a CT head and neck, which showed no acute findings, and a chest CT, which revealed left upper lobe consolidation. Findings are concerning for pneumonia in the setting of recent C. difficile infection, persistent diarrhea, and progressive functional decline. Ceftriaxone is given for pneumonia Sepsis d/t pneumonia. Sepsis resolved. completed with IV antibiotics during hospital stay. Blood cultures negative to date. Continue p.r.n. breathing treatments Diarrhea. cdif colonization on previous admission but was treated with 10 days of oral vancomycin due to persistent diarrhea. On this admission she was treated with oral vancomycin for duration of antibiotic therapy given history of colonization plus two days - has two more days to complete upon discharge. C diff PCR negative on this admission. Chronic AFib. continue metoprolol, dig, xarelto AVN of left hip. pain control. outpatient follow up with ortho Hyperchloremic metabolic acidosis d/t diarrhea and IVF. Resolved Acute Lactic acidosis not d/t sepsis likely related to diarrhea AAA followed by [facility] Hypomagnesemia. Resolved s/p replacement COPD unspecified. no acute exacerbation. continue home meds Neurogenic bladder. chronic Abdi catheter in place. UA not suggestive of uti Hypocalcemia. When corrected for low albumin, normal mild elevation in troponin . Appears chronically elevated, no chest pain PT recommended STR, she will be transferred to SNF in stable condition. Time Attestation Discharge Coordination Time (in mins): 36 Quality: Safe Use of Opioids Does Pt have an Active Cancer Diagnosis on the Problem List?: No Quality: Stroke Does the patient have a stroke diagnosis?: No Physical Exam Vital Signs: Vital Signs: Last Vital Signs Temp 97.2 F 04/05/24 07:35 Pulse 83 04/05/24 07:35 Resp 17 04/05/24 07:35 BP 124/75 04/05/24 07:35 Pulse Ox 96 04/05/24 07:35 O2 Del Method Room Air 04/05/24 07:35 BMI result Body Mass Index 27.5 Const: General: cooperative, comfortable, no acute distress, alert and awake Nutritional Appearance: average body habitus Orientation/consciousness: patient oriented x3 Resp: Effort & Inspection: normal respiratory effort, able to speak in complete sentences, no respiratory distress and no use of accessory muscles Cardio: Rate: regular rate GI: Inspection: No distended Palpation (GI): Soft to palpation Neuro: General: patient oriented x3 Discharge Plan Discharge Anticipated Discharge Date/Time: 04/05/24 14:30 Patient Disposition: Xfer SNF Discharge Diagnosis: Sepsis Pneumonia Diarrhea with C diff colonization Chronic AFib Acute lactic acidosis Hypomagnesemia Hyperchloremic metabolic acidosis Referrals: Briseyda Gannon [place] [Outside] - 1 Day (short term rehab) Raffy Orona MD [Primary Care Provider] - 1 Week Discharge Medications: New vancomycin 125 mg Capsule 125 mg PO Q6H Qty: 8 0RF Continued ondansetron HCl 4 mg tablet 4 mg PO Q6H PRN (Reason: for nausea/vomiting) Qty: 60 2RF zinc sulfate 50 mg zinc (220 mg) capsule 50 mg PO DAILY Qty: 30 2RF simethicone [Anti-Gas Ultra Strength] 180 mg capsule 180 mg PO BID Qty: 60 1RF methenamine hippurate 1 gram tablet 1 g PO DAILY 90 Days Qty: 90 1RF prochlorperazine maleate 5 mg tablet 5 mg PO Q12H PRN (Reason: for nausea/vomiting) Qty: 30 3RF albuterol sulfate 90 mcg/actuation HFA aerosol inhaler 2 puff inhalation Q6H PRN (Reason: wheezing) ipratropium-albuterol 0.5 mg-3 mg(2.5 mg base)/3 mL Solution For Nebulization 3 ml INHALATION Q4H PRN (Reason: Wheezing) ascorbic acid (vitamin C) [Vitamin C] 500 mg Tablet 1,000 mg PO DAILY colesevelam 625 mg tablet 1,250 mg PO BID calcium carbonate 500 mg calcium (1,250 mg) Tablet,Chewable 500 mg PO DAILY PRN (Reason: Dyspepsia) Culturelle 10 billion cell Capsule 1 cap PO DAILY fluticasone propionate 50 mcg/actuation spray,suspension 2 spray intranasal DAILY PRN (Reason: Allergy Symptoms) digoxin 125 mcg (0.125 mg) tablet 125 mcg PO Q OTHER DAY Rx Instructions: [facility] list reports until 04/04/24 pantoprazole 40 mg Tablet,Delayed Release (Dr/Ec) 40 mg PO DAILY@0630 dicyclomine 10 mg Capsule 10 mg PO BID magnesium citrate 100 mg Capsule 200 mg PO BEDTIME Xarelto 20 mg tablet 20 mg PO DAILY@1700 metoprolol tartrate 50 mg tablet 50 mg PO BID hydrocodone-acetaminophen 5-325 mg Tablet 1 tab PO Q6H PRN (Reason: Pain, Severe (Pain Scale 7-10)) Qty: 20 0RF Rx Instructions: Partial Fill upon patient request. folic acid 1 mg tablet 1 mg PO DAILY (DME) night bags See Rx Instructions .Route .MEDSUPPLY Qty: 1 11RF Rx Instructions: As directed- 1 catheter night bag per month ([facility]) catheter insertion kit See Rx Instructions .Route .MEDSUPPLY Qty: 2 11RF Rx Instructions: As directed- 2 kits per month (DME) abdi catheters 18 spanish See Rx Instructions .Route .MEDSUPPLY Qty: 2 11RF Rx Instructions: As directed- 2 catheters per month (DME) catheter irrigation kit See Rx Instructions .Route .MEDSUPPLY Qty: 2 11RF Rx Instructions: As directed- 2 kits per month (DME) sterile water See Rx Instructions .Route .MEDSUPPLY Qty: 1 11RF Rx Instructions: As directed for badi catheter irrigation (DME) leg bags See Rx Instructions .Route .MEDSUPPLY Qty: 2 11RF Rx Instructions: 2 catheter leg bags per month simvastatin 40 mg tablet 40 mg PO BEDTIME escitalopram oxalate 10 mg tablet 10 mg PO DAILY cholecalciferol (vitamin D3) 25 mcg (1,000 unit) capsule 25 mcg PO DAILY cyanocobalamin (vitamin B-12) 1,000 mcg tablet 1,000 mcg PO DAILY estradiol 0.01 % (0.1 mg/gram) cream 2 g vaginal MOFR ferrous sulfate 325 mg (65 mg iron) tablet 325 mg PO DAILY Discharge Orders: Discharge Order (Routine); Ordered 04/05/24 Ordered By: Daphne Huitron Diet: Advance to usual diet Activity on Discharge: As tolerated Stand Alone Forms: Patient Portal Discharge page Print Language: Swedish Care Plan Goals: Transfer to SNF for Rehab Health Concerns: Sepsis Pneumonia Diarrhea with C diff colonization Chronic AFib Acute lactic acidosis Hypomagnesemia Hyperchloremic metabolic acidosis chronic hip pain Plan of Treatment: complete two more days of po vancomycin completed course of antibiotics for pna during hospitalization Follow-up with primary care provider as needed Take all medications as prescribed Assessment: See discharge summary
[2024-04-05 15:13] VITALS: BP 117/69; PULSE 95; RESP 18; TEMP 36.8; O2SAT 96
== END 2024-04-05 15:52 | disposition skilled nursing facility (03) | DRG 871 ==
LOC: HO.ED 21:12 → HO.EDOVER 23:47 → HO.S3 03-31 08:25
PROVIDERS: Nurse Practitioner Family; Admitting Provider Internal Medicine; Emergency Provider Emergency Medicine; PCP Internal Medicine; Visit Provider Physician Assistant Medical
DX: A41.9 Sepsis, unspecified organism (principal); J18.9 Pneumonia, unspecified organism; J44.0 Chronic obstructive pulmonary disease with (acute) lower respiratory infection; I48.19 Other persistent atrial fibrillation; E87.21 Acute metabolic acidosis; M87.852 Other osteonecrosis, left femur; I49.5 Sick sinus syndrome; I12.9 Hypertensive chronic kidney disease with stage 1 through stage 4 chronic kidney disease, or unspecified chronic kidney disease; E83.42 Hypomagnesemia; I71.40 Abdominal aortic aneurysm, without rupture, unspecified; Z96.0 Presence of urogenital implants; N31.9 Neuromuscular dysfunction of bladder, unspecified; N18.30 Chronic kidney disease, stage 3 unspecified; Z20.822 Contact with and (suspected) exposure to COVID-19; Z95.0 Presence of cardiac pacemaker; Z85.42 Personal history of malignant neoplasm of other parts of uterus; Z87.891 Personal history of nicotine dependence; Z79.01 Long term (current) use of anticoagulants; Z79.899 Other long term (current) drug therapy
CPT/HCPCS: 0241U; 36415; 70450; 71250; 72125; 80048; 80053; 80162; 81001; 83605; 83690; 83735; 84484; 85025; 85610; 87040; 87086; 87493; 87507; 93005; 94640; 97116; 97162; 99285; J0696; J2405; J2919; J3475; J7120

== ENCOUNTER → 2024-03-29 16:07 | Outpatient (BNV) | payer MEDICARE, SELFPAY | PROVIDERS: Emergency Provider Emergency Medicine; Visit Provider Radiology Diagnostic Radiology | DX: R53.1 Weakness (principal); R07.9 Chest pain, unspecified | CPT/HCPCS: 70450; 71250; 72125 ==

== ENCOUNTER → 2024-03-29 17:10 | Outpatient (BNV) | payer MEDICARE, SELFPAY | PROVIDERS: Admitting Provider Internal Medicine; Emergency Provider Emergency Medicine; Visit Provider Internal Medicine | DX: I48.91 Unspecified atrial fibrillation (principal) | CPT/HCPCS: 93010 ==

== ENCOUNTER → 2024-03-29 23:42 | Outpatient (BNV) | payer MEDICARE, SELFPAY | PROVIDERS: Admitting Provider Internal Medicine; Emergency Provider Emergency Medicine; Visit Provider Physician Assistant Medical | DX: J18.9 Pneumonia, unspecified organism (principal) | CPT/HCPCS: 99232; 99233 ==

== ENCOUNTER 2024-04-09 09:22 | Outpatient (AMB) | payer MEDICARE, SELFPAY ==
[2024-04-09 09:40] VITALS: BMI 28.0
--- NOTE | 2024-04-09 09:40 | MHC.OFFVIS ---
Vital Signs 04/09/24 09:40 Height 5 ft 2 in Weight 153 lb BMI 28.0 Intake Visit Reasons: ED referral for 5.1 AAA Intake Note: Pt is here for ED follow up for AAA 5.1 cm on CTA Abd/pelvis 02/28/24 Accompanied by: Son Allergies No Known Allergies [No Known Allergies*] Allergy (Verified 04/09/24 09:41) HPI HPI ED referral for 5.1 AAA: Details: The patient is a frail 73-year-old female presenting for evaluation of abdominal aortic aneurysm and concurrent left hip pain. The aneurysm measurement of 5.1 cm was recently confirmed via a CT scan performed on February 28, 2024, demonstrating growth from previous imaging conducted in 2022. This all began as workup for admission for a bowel obstruction. Concurrently, the patient's left hip pain has been significant, resulting in limited mobility and the requirement of ambulatory assistive devices. An orthopedic intervention is planned. The patient remains at a rehabilitation center for commencement of physical therapy to address the hip pain and associated weakness from prolonged immobility. [facility] Medical History Chronic atrial fibrillation Small bowel obstruction AAA (abdominal aortic aneurysm) Permanent atrial fibrillation Atrial fibrillation On beta mayra at home Legally blind Retention, urine Pneumonia Exercise hypoxemia GERD (gastroesophageal reflux disease) Hypertension Persistent atrial fibrillation COPD (chronic obstructive pulmonary disease) Dyspnea on exertion HTN (hypertension) Cardiac pacemaker in situ Sick sinus syndrome Surgical History History of endoscopy Hx of colonoscopy History of esophagogastroduodenoscopy (EGD) Hx of hysterectomy Hx of cardiac pacemaker History of radiofrequency ablation (RFA) for complex left atrial arrhythmia History of cardioversion Family History Father CHF (congestive heart failure) Cancer Pacemaker Mother Emphysema lung Social History Household Members: Family Household Members Other:: AND SON Housing: House Are you a primary career development facilitator to a significant other at home: No Do you presently have visiting nurse or other home services: Yes ([facility]) Unable to assess alcohol history related to: Unknown Alcohol intake: former Patient Tobacco Use Status: Former Tobacco user Advance Directives Date on File: 07/26/22 service: No Review of Systems Const All systems reviewed & are unremarkable except as noted in HPI and below Reports no additional complaints ENT Reports Normal hearing present Card Denies chest pain, Denies chest pain at rest, Denies chest pain with activity and Denies pedal edema Resp Denies cough GI Denies abdominal pain Musc Denies abnormal gait, Denies muscle cramps and Denies radiating pain into limb Skin/Breast Denies skin ulcer and Denies wounds Neuro Reports Normal hearing present and Denies abnormal gait Psych Reports no additional complaints Physical Exam Vital Signs: BMI result Body Mass Index 28.0 Const General: cooperative, healthy appearing and comfortable Orientation/consciousness: oriented to person, oriented to place and oriented to time HEENT Head: Yes normal to inspection Neck Neck: Yes normal visual inspection Carotids: no bruits Chest Chest palpation & inspection: normal inspection of the chest Resp Effort & Inspection: normal respiratory effort and able to speak in complete sentences Auscultation: clear to auscultation bilaterally, no crackles, no rales, no rhonchi and no wheezes Cardio Rate: regular rate Rhythm: regular rhythm Heart sounds: S1 normal heart sound present and S2 normal heart sound present Bruits: no carotid bruits Peripheral pulses: Peripheral pulses 2+ throughout GI Inspection: Yes normal to inspection Skin Wounds: no wounds Hair: normal Neuro General: oriented to person, oriented to place and oriented to time Cranial nerves: Yes CN's II-XII intact bilaterally and Yes Normal hearing present Cognition (Neuro): normal cognition Motor exam (neuro): 5/5 motor strength present throughout Extrem Other: venous exam: No significant superficial varicosities or spider telangiectasias, minimal edema General: No clubbing, No cyanosis and No edema Psych Appearance: grossly normal Mental Status: mental status grossly normal Speech and movement: Normal speech and movement present Results Reviewed Results Reviewed: CT angiogram dated 02/28/2024 demonstrates a 5.1 cm abdominal aortic aneurysm Assessment & Plan Assessment & Plan (1) Infrarenal abdominal aortic aneurysm (AAA) without rupture: Code(s): I71.43 - Infrarenal abdominal aortic aneurysm, without rupture Category: Medical Plan: During this visit, we discussed the management of the abdominal aortic aneurysm and the prioritization of treatment for the left hip pain with the patient. Due to the aneurysm's size, I recommended a potential endovascular stent repair after resolving the greater hindrance posed by her hip condition. Risks associated with both conditions were reviewed, emphasizing the need for careful monitoring. We also discussed the anticipated outcomes of treating the hip pain first, followed by aneurysm management. The patient agreed with the current plan, and arrangements for orthopedic consultation were made. We decided on a follow-up in six months post-hip management unless earlier intervention becomes necessary. Orders: Referrals Orthopedics Referral M70.62 - Trochanteric bursitis, left hip Patient Instructions: - Follow up with Dr. Oropeza for an orthopedic evaluation on left hip pain. - Notify our office once hip treatment is completed to schedule follow-up for aneurysm management. - Maintain use of walker for ambulation. - Engage in prescribed physical therapy at the rehabilitation facility. - Monitor for any changes in symptoms and report if needed. Coding Level of Care Code Est Pt Level 4 (44100) Complex EM visit Add On G2211 Diagnoses Infrarenal abdominal aortic aneurysm (AAA) without rupture I71.43
--- OUTSIDE RECORDS SUMMARY | 2024-04-09 10:23 | XMS_ITS | Data Portability ---
Author Organization [facility], Main Office Address [address] [place] [address] [address] [place] [address] Care Team Providers Care Forensic Identification Specialist Name Role Phone HIGINIO, PRITI Primary Care Provider MUSTAPHA CORCORAN - 2ND FLOOR OTHER Assessment Encounter Date Assessment Date Assessment LastModified [...] 12:48:31 03/28/2024 03/28/202403/09 bun=14 cre=0.6 wbc=8.1 hb=11 2/4: na 141, k 4.1, bun 21, creat 0.60, wbc 7.84, hgb 10.5 2/11: na 141, k 5.2, bun 24, creat [...] of bone Active 2024 Ivanna Gutierrez MD [address] [place] [address], [address], [place], [address] , [facility] 5 18:57:44 Abdominal aortic aneurysm 432866792 Active 2024 Jonah Khan MD [facility] , [address], [place], [address] , [facility] 5 15:23:25 Atrial fibrillation 12281826 Active 2024 Jonah Khan MD [facility] , [address], [place], [address] , [facility] 5 15:24:30 Chronic kidney disease stage 3A 140062648 Active 2024 Jonah Khan MD [facility] , [address], [place], [address] , [facility] 5 15:24:38 Chronic obstructive pulmonary disease 71185633 Active 2024 Jonah Khan MD [facility] , [address], [place], [address] , [facility] 5 15:24:43 History of malignant neoplasm of uterine body 508157891 Active 2024 Jonah Khan MD [address] [facility], [address], [place], [address] , [facility] 5 15:24:52 Gastroesophag eal reflux disease without esophagitis 947347444 Active 2024 Jonah Khan MD [address] , [address], [place], [address] , [facility] 5 15:24:57 Essential hypertension 60266051 Active 2024 Jonah Khan MD [address], [address], [place], [address] , [facility] 5 15:25:03 Mixed hyperlipidemi a 007903557 Active 2024 Jonah Khan MD [address] , [address], [place], [address] , [facility] 5 15:25:10 Neurogenic urinary bladder 745090474 Active 2024 Jonah Khan MD [address] [facility] [address], [address], [place], [address] , [facility] 5 15:25:20 Sick sinus syndrome 94300139 Active 2024 Jonah Khan MD [address], [address], [place], [address] , [facility] 5 15:25:25 Osteonecrosis of hip 796871832 Active 2024 Not Available [facility] 5 08:55:23 Intestinal obstruction 85637885 Active 2024 Not Available [facility] 5 08:48:53 Recurrent bacterial infection 834784519 Active 2024 Not Available [facility] 5 08:49:58 Hypo-osmolali ty and or hyponatremia 131283695 Active 2024 Not Available [facility] 5 08:50:29 Muscle weakness 66609293 Active 2024 Not Available [facility] 5 08:51:14 Dysphagia 68018899 Active 2024 Not Available [facility] 5 08:51:44 Unsteady when standing 466301337 Active 2024 Not Available [facility] 5 08:52:15 Chronic kidney disease stage 3 144443493 Active 2024 Not Available [facility] 5 08:53:48 Abdominal aortic aneurysm without rupture 02094569 Active 2024 Not Available [facility] 5 08:54:19 Hyperlipidemi a 75089080 Active 2024 Not Available [facility] 5 08:54:20 Iron deficiency anemia 83170307 Active 2024 Not Available [facility] 5 12:58:42 Recurrent depression 443708783 Active 2024 Not Available [facility] 5 12:58:44 Pneumonia 107296233 Active 2024 Abby Razo NP [address] [place] [address], [facility] [address], [place], [address] , [facility] 5 20:37:34 Notes:Some problems listed i n Document: #[id number] could not be added to this patient's chart. Please review this document and add these problems to the patient's chart manually as needed. Problem Notes None recorded. Medical Equipment None [...] every 48 hours for heart health until 5 23:59 one tablet every other day for seven doses 04/05 completed Not Available Not Available Not Available Powderlax 17 gram oral powder packet Give 17 gram by mouth as needed for constipat ion 2024 active Not Available Not Available Not Avai lable Vitals Date Recorded Body weight Heart rate Respiratory rate Body temperature Oxygen saturation Oxygen saturation in Arterial blood by Pulse oximetry Systolic blood pressure Diastolic blood pressure Provider Name and Address Organization Details Last Updated DateTime 5 036449. 72 g 68 /min 18 /min 97.5 [degF] 96 % 96 % 121 mm[Hg] 82 mm[Hg] Abby Razo NP [address] [facility], [address], [place], [address], [facility] 14:01:27 Social History Question Answer Notes LastModified by Organization Details LastModified Time Tobacco Smoking Status Never Smoker Jonah Khan MD [address], [address], [place], [address], [facility] 03/12/2024 15:37:56 Do You Have An Advance Directive? No Information not available 03/12/2024 What Is Your Level Of Alcohol Consumption? None Information not available 03/12/2024 What Is Your Code Status? Full Code No Art Nutrition Information not available 04/08/2024 Where Do You Live? SingleLevelHouse Information not available 04/08/2024 Do You Have A Medical Power Of Auto Technician? No Information not available 04/08/2024 What Was The Date Of Your Most Recent Tobacco Screening? 04/08/2024 Information not available 04/08/2024 Do You Have An Out Of Hospital DNR? No Information not available 04/08/2024 What Is Your Relationship Status? Information not available 04/08/2024 Do You Use Any Illicit Or Recreational Drugs? No Information not available 04/08/2024 Do You Or Have You Ever Used Any Other Forms Of Tobacco Or Nicotine? No Information not available 04/08/2024 Sex: Female Functional Status None recorded. Mental Status None recorded. Family History Nothing Reported Notes:N/C Medical History No medical history recorded. Gynecological HistoryNo gynecological history recorded. Obstetrics History GPAL:G 0 P 0 0 0 0 Immunizations Vaccine Type Date Status Note Provider Nam e and Address Organization Details Recorded Time SARS-COV-2 (COVID-19) vaccine, UNSPECIFIED 03/06/2020 dev Reyes [facility] [address] 03/12/2024 15:19:00 SARS-COV-2 (COVID-19) vaccine, UNSPECIFIED 04/06/2020 dev Reyes [facility] [address] 03/12/2024 15:19:19 SARS-COV-2 (COVID-19) vaccine, UNSPECIFIED 01/19/2021 dev Reyes [facility] [address] 03/12/2024 15:19:30 SARS-COV-2 (COVID-19) vaccine, UNSPECIFIED 07/08/2021 dev Reyes [facility] [address] 03/12/2024 15:19:37 Past Encounters Encounter ID Performer Location Encounter Start Date Encounter Closed Date Diagnosis/Indication Diagnosis SNOMED-CT Code Diagnosis ICD10 Code Diagnosis Note [id number] MD Syed Mclean at [facility] on [address] [place] [address] 03/12/2024 14:57:39 03/13/2024 09:59:50 Clostridium difficile colitis 719987559 A04.72 concern for sepsis secondary to c diff underwent treatment then question if colonized at baselinemo nitor for sxcomplete course of PO vanco Acute kidney injury 1466 9001 N17.8 ARF on CRFimprove d with IVFmonitor renal function Idiopathic avascular necrosis of bone 0061406250 M87.852 avascular necrosis left femoral head on imaging was seen by ortho now with plan to f/u for replacemen t Abdominal aortic aneurysm 434977712 I71.43 [facility] Asthenia 33877269 R53.1 PT OT eval and treatmonit or fall risk and need for increased support in community Atrial fibrillation 4943 6004 I48.0 xarelto 20 mg qdmetoprol ol 50 mg bidmonitor for rate controlreq uired IV lopressor in hospital Chronic ki dney disease stage 3A 432520274 N18.31 carrying dx with recent ARFmonitor renal functionav oid nephrotoxi c meds as ablenephro consult prn Chronic ob structive pulmonary disease 34468525 J41.1 added to PMHmonitor utilizatio n of albuterol History of malignant neoplasm of uterine body 650554803 Z85.42 added to PMH Gastroesop hageal reflux disease without esophagitis 761261835 K21.9 pantoprazo le 40 mg qdmonitor for sx relief Essential hypertension 73672244 I10 metoprolol 50 mg bidmonitor bp and need to titrate Mixed hyperlipidemia 267 121637 E78.2 simvastati n 40 mg qdcontinue d Neurogenic urinary bladder 291108025 N31.8 abdi cath and care Sick sinus syndrome 3608 3008 I49.5 hx of with pacer in place [id number] LEESA Lynch at [facility] on [address] [place] [address] 03/19/2024 09:16:20 03/20/2024 09:36:50 Clostridium difficile colitis 311931675 A04.72 stools resolvedmo nitor for recurrent loose stool Acute kidney injury 1466 9001 N17.8 labs pending todaylast labs in range 21/0.60 Idiopathic avascular necrosis of bone 1373333065 M87.852 avascular necrosis left femoral head on imaging was seen by ortho now with plan to f/u for replacemen tcontinue PT OT see HPI Atrial fibrillation 4943 6004 I48.0 xarelto 20 mg qdmetoprol ol 50 mg bidrate controlled at 79 [id number] LEESA Lynch at [facility] on [address] [place] [address] 03/22/2024 11:37:26 03/25/2024 11:02:46 Acute kidney injury 42513509 N17.8 stable for patientlas t labs in range 24/0.80enc ourage PO fluids Idiopathic avascular necrosis of bone 4309938622 M87.852 continue PTPt ambulated short distances up [...] ol 50 mg bidrate controlled at 79 [id number] LEESA Lynch at [facility] on [address] [place] [address] 03/27/2024 12:47:31 03/28/2024 13:18:07 Acute kidney injury 50838433 N17.8 no labs this week for some reason-add cbc bmp tomorrow 03/28 Atrial fibrillation 4943 6004 I48.0 see HPI- had nuclear stress test today, will follow up tomorrow with goldieconalex lockhart amiodarone 125 mg every other day per cardsxarel to 20 mg qdmetoprol ol 50 mg bid Cough 08496922 R05.9 STAT chest xray two viewsadd cbc with bmp tomorrowsw ab for flu and covid nowmonitor resp status Nausea 103384976 R11.0 continue prn compazine and re-eval in 30 days [id number] LEESA Lynch at [facility] on [address] [facility] [place] [address] 03/28/2024 09:25:01 03/29/2024 13:23:38 Acute kidney injury 46068740 N17.8 labs pending today Atrial fibrillation 4943 6004 I48.0 see HPI- had nuclear stress test, follow up with cards tomorrowco ntinue amiodarone 125 mg every other day per cardsxarel to 20 mg qdmetoprol ol 50 mg bid Cough 33039373 R05.9 waiting on xray resultsif positive send home with miquel spent greater than 15 minutes discussing postpone of DC with patient and SW, ultimately wants to leave, wrote rx for miquel Nausea 123084708 R11.0 continue prn compazine Idiopathic avascular necrosis of bone 3776918123 M87.852 avascular necrosis left femoral head on imaging was seen by ortho now with plan to f/u for replacemen t Abdominal aortic aneurysm 839082243 I71.43 [facility] vascular Asthenia 68792232 R53.1 improved Chronic ki dney disease stage 3A 431786874 N18.31 carrying dx with recent ARFPCP to follow labs Chronic ob structive pulmonary disease 52339353 J41.1 added to PMH History of malignant neoplasm of uterine body 662752833 Z85.42 added to PMH Gastroesop hageal reflux disease without esophagitis 073456041 K21.9 pantoprazo le 40 mg qd Essential hypertension 05262032 I10 metoprolol 50 mg bid Mixed hyperlipidemia 267 660340 E78.2 simvastati n 40 mg qdcontinue d Neurogenic urinary bladder 062285936 N31.8 abdi cath and care Sick sinus syndrome 3608 3008 I49.5 hx of with pacer in place [id number] Abby Razo NP [facility] [address] [place] [address] 04/08/2024 13:58:51 04/08/2024 20:42:32 Acute kidney injury 86276588 N17.8 hxlikely in setting of dehydratio n from diarrheacb c bmp weekly x 3 monitor Atrial fibrillation 4943 6005 I48.0 digoxin 125 mcg qodxarelto 20 mg qdmetoprol ol 50 mg bid Idiopathic avascular necrosis of bone 7940703712 M87.852 PT/OT eval and treatchole calciferol 25 mcg qdhydrocod one tyl q 6 hours prn painsuppor tive caremonito r Clostridiu m difficile colitis 961960764 A04.72 tested neg for cdif this admission, had it last admissions tools improving 1-2 per dayvanomyc in po for 2 more dosesmonit or for recurrent loose stool Abdominal aortic aneurysm 930382789 I71.43 [facility] with Dr Crook per pt coming upmonitor Asthenia 89991293 R53.1 PT OT eval and treatmonit or fall risk and need for increased support in community Chronic ki dney disease stage 3A 487474582 N18.31 carrying dx with recent ARFmonitor renal functionav oid nephrotoxi c meds as ablenephro consult prn Chronic ob structive pulmonary disease 28400285 J41.1 albuterol prnmonitor History of malignant neoplasm of uterine body 749822134 Z85.42 hx of Gastroesop hageal reflux disease without esophagitis 023715274 K21.9 pantoprazo le 40 mg qdmonitor for sx relief Essential hypertension 22195556 I10 metoprolol 50 mg bidmonitor bp and need to titrate Mixed hyperlipidemia 267 073568 E78.2 simvastati n 40 mg qdcontinue d Neurogenic urinary bladder 810799209 N31.8 abdi cath and carechange monthly per regular regimenmon itor for s/s of infection Sick sinus syndrome 3608 3008 I49.5 hx of with pacer in place Iron defic iency anemia 58498293 D50.9 ferrous sulfate qdvit c qdmonitor labs Recurrent depression 191 246312 F32.A lexapro 10 mg po qdmonitorp sych prn Pneumonia 597152138 J18. 9 with sepsis pneumoniah ad course of ceftriaxon e in hospalb prnduoneb q 4 hours prnmonitor cbc and bmp weekly x 3 Recurrent falls 11242810 2 R29.6 pt with falls from home and very deconditio nedPT OT eval and treatsuppo rtive caremonito r Health Concerns Section Related Observation LastModified by Organization Detai ls LastModified Time None Recorded Concern Status LastModified by Organization Details LastModified Time None Recorded Advance Directives Directive N: Payers Encounter Date Sequence Insurance Name Policy Number Policy Ruiz Covered Member ID Ruiz Member ID Guarantor Name 03/19/2024 1 [facility] - MEDICARE PREFERRED (MEDICARE REPLACEMENT HMO) PRAKASH Trupti Jung [id number] Trupti Jung 03/22/2024 1 [facility] - MEDICARE PREFERRED (MEDICARE REPLACEMENT HMO) PRAKASH Trupti Jung [id number] Trupti Jung 03/27/2024 1 [facility] - MEDICARE PREFERRED (MEDICARE REPLACEMENT HMO) PRAKASH Trupti Jung [id number] Trupti Jung 03/28/2024 1 [facility] - MEDICARE PREFERRED (MEDICARE REPLACEMENT HMO) PRAKASH Trupti Jung [id number] Trupti Jung 04/08/2024 1 [facility] - MEDICARE PREFERRED (MEDICARE REPLACEMENT HMO) PRAKASH Trupti Jung [id number] Trupti Jung Notes Date Note Type Note [...] is asking for edward byers, will tell [facility]. PMH significant forAAA follow by [facility] fibcrf stage 3copdgerdhx uterine cahldhtnneurogenic bladder with foleySSS s/p pacer LEESA LORD [address] [facility], [address], [place], [address], [facility] 03/19/2024 09:25:55 03/22/2024 text/html Patient is a [...] catheter awareness. PMH significant forAAA follow by [facility] fibcrf stage 3copdgerdhx uterine cahldhtnneurogenic bladder with foleySSS s/p pacer LEESA LORD [address] [place] [address], [address], [place], [address], [facility] 03/22/2024 11:45:17 03/27/2024 text/html Patient is a [...] green stuff. PMH significant forAAA follow by [facility] fibcrf stage 3copdgerdhx uterine cahldhtnneurogenic bladder with foleySSS s/p pacer LEESA LORD [address] , [address], [place], [address], [facility] 03/27/2024 13:13:15 03/28/2024 text/html Patient is a [...] in case. PMH significant forAAA follow by [facility] fib[facility]f stage 3copdgerdhx uterine cahldhtnneurogenic bladder with foleySSS s/p pacer LEESA GUADARRAMA [address] [place] [address], [address], [place], [address], [facility] 03/28/2024 09:40:55 04/08/2024 text/html Patient is a 73 yo female seen today for an initial intake visit. PMH significant for AAA follow by [facility] vascular, a fib, crf stage , copd, gerd, hx uterine ca,hld, htn, neurogenic bladder with abdi, SSS s/p pacer, avascualar necrosis of left hip Trupti is a 73 yo f here at [facility] for rehab [place] [facility] recent hospitalization 02/27-03/03 for c diff sepsis and dc to rehab at [facility] subsequently dc'd on 03/28/24. Since discharged from home she [place] [facility]- for progressively weak, persistent diarrhea, with worsening difficulty walking due to left hip avascular necrosis and associated pain and not able to care for herself at home diagnosis with sepsis pneumonia and diarrhea. Workup revealed wbc of 15, lactic acid 2.4, mag 1.4, trop 20 and cdiff neg. resp panel neg. CT head/neck neg. CT chest showed upper lobe consolidation felt likely sepsis pneumonia and treated with ceftriaxone. bld cult neg. Breathing treatments prn. Diarrhea treated with vanco for 10 days with cdiff negative. On exam, Trupti is a pleasant alert and oriented female without any pain, or concerns at this visit. She states she is legally blind and has son sign all her documents with her direction, she is not invoked, and scores a 15/15 on her BIMS today. She reports diarrhea slowing down to 1-2 times per day. Medications continued and vanco started for 2 doses. MOLST: Full code, no art nutrition, dialysis and ivf okayMORSE: high riskBIMS Abby Razo NP [address] [facility] [address], [address], [place], [address], [facility] 04/08/2024 20:42:30 OBGyn Episode No OBEpisode recorded.
--- OUTSIDE RECORDS SUMMARY | 2024-04-09 10:23 | XMS_ITS | Continuity of Care Document ---
Author Organization [facility], [facility] Address [address] [place] [address] Care Team Providers Care Band Cutting Machine Operator Name Role Phone PRITI SYLVESTER Primary Care Provider [facility] - 2ND FLOOR OTHER Assessment No assessment recorded. Plan of Treatment [...] bone Active 2024 Ivanna Gutierrez MD [address] , [address], [place], [address] , [facility] 5 18:57:44 Abdominal aortic aneurysm 457673662 Active 2024 Jonah Khan MD [address] , [address], [place], [address] , [facility] 5 15:23:25 Atrial fibrillation 32997584 Active 2024 Jonah Khan MD [address], [address], [place], [address] , [facility] 5 15:24:30 Chronic kidney disease stage 3A 868265773 Active 2024 Jonah Khan MD [address], [address], [place], [address] , [facility] 5 15:24:38 Chronic obstructive pulmonary disease 84402024 Active 2024 Jonah Khan MD [address] [facility], [address], [place], [address] , [facility] 5 15:24:43 History of malignant neoplasm of uterine body 928065190 Active 2024 Jonah Khan MD [address], [address], [place], [address] , [facility] 5 15:24:52 Gastroesophag eal reflux disease without esophagitis 083791689 Active 2024 Jonah Khan MD [address] , [address], [place], [address] , [facility] 5 15:24:57 Essential hypertension 78644148 Active 2024 Jonah Khan MD [address] [facility], [address], [place], [address] , [facility] 5 15:25:03 Mixed hyperlipidemi a 757630671 Active 2024 Jonah Khan MD [address] [facility], [address], [place], [address] , [facility] 5 15:25:10 Neurogenic urinary bladder 682378593 Active 2024 Jonah Khan MD [address] [facility], [address], [place], [address] , [facility] 5 15:25:20 Sick sinus syndrome 47068958 Active 2024 Jonah Khan MD [address] [facility], [address], [place], [address] , [facility] 5 15:25:25 Osteonecrosis of hip 585490776 Active 2024 Not Available [facility] 5 08:55:23 Intestinal obstruction 73792991 Active 2024 Not Available [facility] 5 08:48:53 Recurrent bacterial infection 251786055 Active 2024 Not Available [facility] 5 08:49:58 Hypo-osmolali ty and or hyponatremia 614836888 Active 2024 Not Available [facility] 5 08:50:29 Muscle weakness 12140742 Active 2024 Not Available [facility] 5 08:51:14 Dysphagia 98441395 Active 2024 Not Available [facility] 5 08:51:44 Unsteady when standing 984966283 Active 2024 Not Available [facility] 5 08:52:15 Chronic kidney disease stage 3 029386497 Active 2024 Not Available [facility] 5 08:53:48 Abdominal aortic aneurysm without rupture 17011991 Active 2024 Not Available [facility] 5 08:54:19 Hyperlipidemi a 82135085 Active 2024 Not Available [facility] 5 08:54:20 Iron deficiency anemia 89224579 Active 2024 Not Available [facility] 5 12:58:42 Recurrent depression 112085456 Active 2024 Not Available [facility] 5 12:58:44 Pneumonia 726684958 Active 2024 Abby Razo NP [address] [facility], [address], [place], [address] , [facility] 5 20:37:34 Notes:Some problems listed i n Document: #[id number] could not be added to this patient's [...] Address Organization Details Last Updated DateTime 5 265691. 72 g 68 /min 18 /min 97.5 [degF] 96 % 96 % 121 mm[Hg] 82 mm[Hg] Abby Razo NP [address] [facility], [address], [place], [address], [place] - [facility] 14:01:27 Social History Question Answer Notes LastModified by Organization Details LastModified Time Tobacco Smoking Status Never Smoker Jonah Khan MD [address] [place] [address], [address], [place], [address], [facility] 03/12/2024 15:37:56 Do You Have An Advance Directive? No Information not available 03/12/2024 What Is Your Level Of Alcohol Consumption? None Information not available 03/12/2024 What Is Your Code Status? Full Code No Art Nutrition Information not available 04/08/2024 Where Do You Live? SingleLevelHouse Information not available 04/08/2024 Do You Have A Medical Power Of Air Cargo Ground Crew Supervisor? No Information not available 04/08/2024 What Was [...] Time SARS-COV-2 (COVID-19) vaccine, UNSPECIFIED 03/06/2020 dev hernadez [facility] 03/12/2024 15:19:00 SARS-COV-2 (COVID-19) vaccine, UNSPECIFIED 04/06/2020 dev hernadez [facility] 03/12/2024 15:19:19 SARS-COV-2 (COVID-19) vaccine, UNSPECIFIED 01/19/2021 dev hernadez [facility] 03/12/2024 15:19:30 SARS-COV-2 (COVID-19) vaccine, UNSPECIFIED 07/08/2021 completed Claudia hernadez [place] - [facility] 03/12/2024 15:19:37 Past Encounters Encounter ID Performer Location Encounter Start Date Encounter Closed Date Diagnosis/Indication Diagnosis SNOMED-CT Code Diagnosis ICD10 Code Diagnosis Note [id number] [facility] [address] [place] [address] 03/12/2024 14:57:39 03/13/2024 09:59:50 Clostridium difficile colitis 681402907 A04.72 concern for sepsis secondary to c diff underwent treatment then question if colonized at [facility] nitor for sxcomplete course of PO vanco Acute kidney injury 1466 9001 N17.8 ARF on CRFimprove d with IVFmonitor renal function Idiopathic avascular necrosis of bone 6479711046 M87.852 avascular necrosis left femoral head on imaging was seen by ortho now with plan to f/u for replacemen t Abdominal aortic aneurysm 946114815 I71.43 [facility] PMH Asthenia 15546502 R53.1 PT OT eval and treatmonit or fall risk and need for increased support in community Atrial fibrillation 4943 6004 I48.0 xarelto 20 mg qdmetoprol ol 50 mg bidmonitor for rate controlreq uired IV lopressor in hospital Chronic ki dney disease stage 3A 261232852 N18.31 carrying dx with recent ARFmonitor renal functionav oid nephrotoxi c meds as ablenephro consult prn Chronic ob structive pulmonary disease 38737950 J41.1 added to PMHmonitor utilizatio n of albuterol History of malignant neoplasm of uterine body 095907269 Z85.42 added to PMH Gastroesop hageal reflux disease without esophagitis 204394898 K21.9 pantoprazo le 40 mg qdmonitor for sx relief Essential hypertension 91867575 I10 metoprolol 50 mg bidmonitor bp and need to titrate Mixed hyperlipidemia 267 593654 E78.2 simvastati n 40 mg qdcontinue d Neurogenic urinary bladder 947326512 N31.8 abdi cath and care Sick sinus syndrome 3608 3008 I49.5 hx of with pacer in place [id number] LEESA Lynch at [facility] on [address] [place] [address] 03/19/2024 09:16:20 03/20/2024 09:36:50 Clostridium difficile colitis 752638045 A04.72 stools resolvedmo nitor for recurrent loose stool Acute kidney injury 1466 9001 N17.8 labs pending todaylast labs in range 21/0.60 Idiopathic avascular necrosis of bone 4693916972 M87.852 avascular necrosis left femoral head on imaging was seen by ortho now with plan to f/u for replacemen tcontinue PT OT see HPI Atrial fibrillation 4943 6004 I48.0 xarelto 20 mg qdmetoprol ol 50 mg bidrate controlled at 79 [id number] LEESA Lynch at [facility] on [address] [place] [address] 03/22/2024 11:37:26 03/25/2024 11:02:46 Acute kidney injury 79748917 N17.8 stable for patientlas t labs in range 24/0.80enc ourage PO fluids Idiopathic avascular necrosis of bone 5574356456 M87.852 continue PTPt ambulated short distances up to 30' within room x4 trials, RW, SBA with cues for improved [id number] 30: Car transfer scheduled for this date [...] ol 50 mg bidrate controlled at 79 [id number] LEESA Lynch at [facility] on [address] [place] [address] 03/27/2024 12:47:31 03/28/2024 13:18:07 Acute kidney injury 72122672 N17.8 no labs this week for some reason-add cbc bmp tomorrow 03/28 Atrial fibrillation 4943 6004 I48.0 see HPI- had nuclear stress test today, will follow up tomorrow with cardsconti nue amiodarone 125 mg every other day per cardsxarel to 20 mg qdmetoprol ol 50 mg bid Cough 99702314 R05.9 STAT chest xray two viewsadd cbc with bmp tomorrowsw ab for flu and covid nowmonitor resp status Nausea 047417306 R11.0 continue prn compazine and re-eval in 30 days [id number] LEESA Lynch at [facility] on [address] [facility] [place] [address] 03/28/2024 09:25:01 03/29/2024 13:23:38 Acute kidney injury 61578193 N17.8 labs pending today Atrial fibrillation 4943 6004 I48.0 see HPI- had nuclear stress test, follow up with cards tomorrowco ntinue amiodarone 125 mg every other day per cardsxarel to 20 mg qdmetoprol ol 50 mg bid Cough 93078966 R05.9 waiting on xray resultsif positive send home with miquel spent greater than 15 minutes discussing postpone of DC with patient and SW, ultimately wants to leave, wrote rx for miquel Nausea 094012409 R11.0 continue prn compazine Idiopathic avascular necrosis of bone 0983140903 M87.852 avascular necrosis left femoral head on imaging was seen by ortho now with plan to f/u for replacemen t Abdominal aortic aneurysm 582128330 I71.43 followed by [facility] vascular Asthenia 22368772 R53.1 improved Chronic ki dney disease stage 3A 503190676 N18.31 carrying dx with recent ARFPCP to follow labs Chronic ob structive pulmonary disease 29607181 J41.1 added to PMH History of malignant neoplasm of uterine body 168272462 Z85.42 added to PMH Gastroesop hageal reflux disease without esophagitis 119766143 K21.9 pantoprazo le 40 mg qd Essential hypertension 84729005 I10 metoprolol 50 mg bid Mixed hyperlipidemia 267 665779 E78.2 simvastati n 40 mg qdcontinue d Neurogenic urinary bladder 478633420 N31.8 abdi cath and care Sick sinus syndrome 3608 3008 I49.5 hx of with pacer in place [id number] Abby Razo NP [address] [place] [address] 04/08/2024 13:58:51 04/08/2024 20:42:32 Acute kidney injury 42585166 N17.8 hxlikely in setting of dehydratio n from diarrheacb c bmp weekly x 3 monitor Atrial fibrillation 4943 6004 I48.0 digoxin 125 mcg qodxarelto 20 mg qdmetoprol ol 50 mg bid Idiopathic avascular necrosis of bone 4369806804 M87.852 PT/OT eval and treatchole calciferol 25 mcg qdhydrocod one tyl q 6 hours prn painsuppor tive caremonito r Clostridiu m difficile colitis 351787002 A04.72 tested neg for cdif this admission, had it last admissions tools improving 1-2 per dayvanomyc in po for 2 more dosesmonit or for recurrent loose stool Abdominal aortic aneurysm 897380522 I71.43 [facility] vascularap pt with Dr Crook per pt coming upmonitor Asthenia 79269532 R53.1 PT OT eval and treatmonit or fall risk and need for increased support in community Chronic ki dney disease stage 3A 115756365 N18.31 carrying dx with recent ARFmonitor renal functionav oid nephrotoxi c meds as ablenephro consult prn Chronic ob structive pulmonary disease 98163878 J41.1 albuterol prnmonitor History of malignant neoplasm of uterine body 377079253 Z85.42 hx of Gastroesop hageal reflux disease without esophagitis 680650636 K21.9 pantoprazo le 40 mg qdmonitor for sx relief Essential hypertension 40035274 I10 metoprolol 50 mg bidmonitor bp and need to titrate Mixed hyperlipidemia 267 964952 E78.2 simvastati n 40 mg qdcontinue d Neurogenic urinary bladder 453543154 N31.8 abdi cath and carechange monthly per regular regimenmon itor for s/s of infection Sick sinus syndrome 3608 3008 I49.5 hx of with pacer in place Iron defic iency anemia 88619415 D50.9 ferrous sulfate qdvit c qdmonitor labs Recurrent depression 191 710229 F32.A lexapro 10 mg po qdmonitorp sych prn Pneumonia 756795804 J18. 9 with sepsis pneumoniah ad course of ceftriaxon e in hospalb prnduoneb q 4 hours prnmonitor cbc and bmp weekly x 3 Recurrent falls 12667163 2 R29.6 pt with falls from home and very deconditio nedPT OT eval and treatsuppo rtive caremonito r Health Concerns Section Related Observation LastModified by Organization Detai ls LastModified Time None Recorded Concern Status LastModified by Organization Details LastModified Time None Recorded Payers Encounter Date Sequence Insurance Name Policy Number Policy Ruiz Covered Member ID Ruiz Member ID Guarantor Name 04/08/[address] [facility] - MEDICARE PREFERRED (MEDICARE REPLACEMENT HMO) PRAKASH Lyles Fabiana [id number] 01 Trupti Fabiana Notes Date Note Type Note Provider Name and Address Organization Details Recorded Time 04/08/2024 text/html Patient is a 73 yo female seen today for an initial intake visit. PMH significant for AAA follow by [facility] vascular, a fib, crf stage , copd, gerd, hx uterine ca,hld, htn, neurogenic bladder with abdi, SSS s/p pacer, avascualar necrosis of left hip Trupti is a 73 yo f [facility] [place] for recent hospitalization 02/27-03/03 for c diff sepsis and dc to rehab at [facility] one subsequently dc'd on 03/28/24. Since discharged from home she returned to the [facility] on 03/29/24- for progressively weak, persistent [...] okayMORSE: high riskBIMS Abby Razo NP [address] [facility], [address], [place], [address], [facility] - [facility] 04/08/2024 20:42:30 OBGyn Episode No OBEpisode recorded.
--- OUTSIDE RECORDS SUMMARY | 2024-04-09 10:23 | XMS_ITS | Continuity of Care Document ---
Author Organization [facility] Address [address] [place] [address] Care Team Providers Care Friction Paint Machine Tender Name Role Phone PRITI SYLVESTER Primary Care Provider [facility] - 2ND FLOOR OTHER Assessment Encounter [...] bone Active 2024 Ivanna Gutierrez MD [address] [facility], [address], [place], [address] , [facility] 18:57:44 Abdominal aortic aneurysm 675875146 Active 2024 Jonah Khan MD [address], [address], [place], [address] , [facility] 15:23:25 Atrial fibrillation 84144915 Active 2024 Jonah Khan MD [address], [address], [place], [address] , [facility] 5 15:24:30 Chronic kidney disease stage 3A 316708861 Active 2024 Jonah Khan MD [address], [address], [place], [address] , [facility] 5 15:24:38 Chronic obstructive pulmonary disease 61724384 Active 2024 Jonah Khan MD [address] [facility], [address], [place], [address] , [facility] 5 15:24:43 History of malignant neoplasm of uterine body 781129578 Active 2024 Jonah Khan MD [address] [facility], [address], [place], [address] , [facility] 5 15:24:52 Gastroesophag eal reflux disease without esophagitis 544164120 Active 2024 Joanh Khan MD [address] [facility], [address], [place], [address] , [facility] 5 15:24:57 Essential hypertension 03383182 Active 2024 Jonah Khan MD [address] [facility], [address], [place], [address] , [facility] 5 15:25:03 Mixed hyperlipidemi a 063454142 Active 2024 Jonah Khan MD [address] [facility], [address], [place], [address] , [facility] 5 15:25:10 Neurogenic urinary bladder 808496202 Active 2024 Jonah Khan MD [address] [facility], [address], [place], [address] , [facility] 5 15:25:20 Sick sinus syndrome 49026842 Active 2024 Jonah Khan MD [address] [facility], [address], [place], [address] , [facility] 5 15:25:25 Osteonecrosis of hip 918091263 Active 2024 Not Available [facility] 5 08:55:23 Intestinal obstruction 69682824 Active 2024 Not Available [facility] 5 08:48:53 Recurrent bacterial infection 428298789 Active 2024 Not Available [facility] 5 08:49:58 Hypo-osmolali ty and or hyponatremia 754054209 Active 2024 Not Available [facility] 5 08:50:29 Muscle weakness 75020868 Active 2024 Not Available [facility] 5 08:51:14 Dysphagia 26998186 Active 2024 Not Available [facility] 5 08:51:44 Unsteady when standing 192673061 Active 2024 Not Available [facility] 5 08:52:15 Chronic kidney disease stage 3 347803306 Active 2024 Not Available [facility] 5 08:53:48 Abdominal aortic aneurysm without rupture 73269756 Active 2024 Not Available [facility] 5 08:54:19 Hyperlipidemi a 25427428 Active 2024 Not Available [facility] 5 08:54:20 Iron deficiency anemia 21879603 Active 2024 Not Available [facility] 5 12:58:42 Recurrent depression 866847193 Active 2024 Not Available [facility] 5 12:58:44 Pneumonia 130240239 Active 2024 Abby aRzo NP [address] [facility], [address], [place], [place], [address] , [facility] 5 20:37:34 Notes:Some problems listed i n Document: #[id number] could not be added to this patient's [...] Status Never Smoker Jonah Khan MD [address] [facility], [address], [place], [address], [facility] 03/12/2024 15:37:56 Do You Have An Advance Directive? No Information not available 03/12/2024 What Is Your Level Of Alcohol Consumption? None Information not available 03/12/2024 What Is Your Code Status? Full Code No Art Nutrition Information not available 04/08/2024 Where Do You Live? SingleLevelHouse Information not available 04/08/2024 Do You Have A Medical Power Of Government Minister? No Information not available 04/08/2024 What Was [...] SARS-COV-2 (COVID-19) vaccine, UNSPECIFIED 03/06/2020 dev hernadez [facility] 03/12/2024 15:19:00 SARS-COV-2 (COVID-19) vaccine, UNSPECIFIED 04/06/2020 dev hernadez [facility] 03/12/2024 15:19:19 SARS-COV-2 (COVID-19) vaccine, UNSPECIFIED 01/19/2021 dev hernadez [facility] 03/12/2024 15:19:30 SARS-COV-2 (COVID-19) vaccine, UNSPECIFIED 07/08/2021 completed Claudia Reyes [facility] [place] - [facility] 03/12/2024 15:19:37 Past Encounters Encounter ID Performer Location Encounter Start Date Encounter Closed Date Diagnosis/Indication Diagnosis SNOMED-CT Code Diagnosis ICD10 Code Diagnosis Note [id number] Jonah Khan MD [facility] [address] [place] [address] 03/12/2024 14:57:39 03/13/2024 09:59:50 Clostridium difficile colitis 672168083 A04.72 concern for sepsis secondary to c diff underwent treatment then question if colonized at baselinemo nitor for sxcomplete course of PO vanco Acute kidney injury 1466 9001 N17.8 ARF on CRFimprove d with IVFmonitor renal function Idiopathic avascular necrosis of bone 9088257973 M87.852 avascular necrosis left femoral head on imaging was seen by ortho now with plan to f/u for replacemen t Abdominal aortic aneurysm 968898828 I71.43 [facility] ded to PMH Asthenia 13423830 R53.1 PT OT eval and treatmonit or fall risk and need for increased support in community Atrial fibrillation 4943 6004 I48.0 xarelto 20 mg qdmetoprol ol 50 mg bidmonitor for rate controlreq uired IV lopressor in hospital Chronic ki dney disease stage 3A 343924800 N18.31 carrying dx with recent ARFmonitor renal functionav oid nephrotoxi c meds as ablenephro consult prn Chronic ob structive pulmonary disease 46328412 J41.1 added to PMHmonitor utilizatio n of albuterol History of malignant neoplasm of uterine body 714703280 Z85.42 added to PMH Gastroesop hageal reflux disease without esophagitis 315409815 K21.9 pantoprazo le 40 mg qdmonitor for sx relief Essential hypertension 40241710 I10 metoprolol 50 mg bidmonitor bp and need to titrate Mixed hyperlipidemia 267 180668 E78.2 simvastati n 40 mg qdcontinue d Neurogenic urinary bladder 140982651 N31.8 abdi cath and care Sick sinus syndrome 3608 3008 I49.5 hx of with pacer in place [id number] LEESA Lynch at [facility] on [address] [place] [address] 03/19/2024 09:16:20 03/20/2024 09:36:50 Clostridium difficile colitis 259830723 A04.72 stools resolvedmo nitor for recurrent loose stool Acute kidney injury 1466 9001 N17.8 labs pending todaylast labs in range 21/0.60 Idiopathic avascular necrosis of bone 0880535806 M87.852 avascular necrosis left femoral head on imaging was seen by ortho now with plan to f/u for replacemen tcontinue PT OT see HPI Atrial fibrillation 4943 6004 I48.0 xarelto 20 mg qdmetoprol ol 50 mg bidrate controlled at 79 [id number] LEESA Lynch at [facility] on [address] [place] [address] 03/22/2024 11:37:26 03/25/2024 11:02:46 Acute kidney injury 48303741 N17.8 stable for patientlas t labs in range 24/0.80enc ourage PO fluids Idiopathic avascular necrosis of bone 2057597063 M87.852 continue PTPt ambulated short distances up to 30' within room x4 trials, RW, SBA with cues for improved [id number] 30: Car transfer scheduled for this date [...] ol 50 mg bidrate controlled at 79 [id number] LEESA Lynch at [facility] on [address] [place] [address] 03/27/2024 12:47:31 03/28/2024 13:18:07 Acute kidney injury 63674356 N17.8 no labs this week for some reason-add cbc bmp tomorrow 2/20 Atrial fibrillation 4943 6004 I48.0 see HPI- had nuclear stress test today, will follow up tomorrow with eli lockhart amiodarone 125 mg every other day per cardsxarel to 20 mg qdmetoprol ol 50 mg bid Cough 26671008 R05.9 STAT chest xray two viewsadd cbc with bmp tomorrowsw ab for flu and covid nowmonitor resp status Nausea 647316674 R11.0 continue prn compazine and re-eval in 30 days Health Concerns Section Related Observation LastModified by Organization Detai ls LastModified Time None Recorded Concern Status LastModified by Organization Details LastModified Time None Recorded Payers Encounter Date Sequence Insurance Name Policy Number Policy Ruiz Covered Member ID Ruiz Member ID Guarantor Name 03/27/2024 1 [facility] - MEDICARE PREFERRED (MEDICARE REPLACEMENT HMO) PRAKASH Trupti Jung [id number] Trupti Jung Notes Date Note Type [...] green stuff. PMH significant forAAA [facility] by [facility] vasculara fibcrf stage 3copdgerdhx uterine cahldhtnneurogenic bladder with foleySSS s/p pacer LEESA GUADARRAMA [address] [facility], [address], [place], [address], [place] - [facility] 03/27/2024 13:13:15 OBGyn Episode No OBEpisode recorded.
--- OUTSIDE RECORDS SUMMARY | 2024-04-09 10:23 | XMS_ITS | Clinical Summary ---
Author Organization [facility] Address [address] [place] [address] Care Team Providers Care Electric Container Tester Name Role Phone Elena Jacobo TIMBER MANAGEMENT SPECIALIST Primary Care Provider Allergies No known active [...] 2 (two) times a day. Active Pancrelipase, Cpb-Occq-Ovln, (Creon) 1184-0136 units Cap Particles Take 1 capsule by [...] this topic Medical Devices Implanted Type Area Overhead Distribution Engineer Device Identifier Shelf Expiration Date Model / Serial / Lot Pacemaker Pacemaker Advance Directives * Full Code (Latest Code Status on File) Date Activated Date Inactivated Comments 12/11/2020 8:56 AM Care Teams Electric Container Tester Relationship Specialty Start Date End Date Elena Jacobo NP [address] [place] [address] PCP - General Adult Health - ELPIDIO/JALEN/GABBY/TARIK 12/11/20
--- OUTSIDE RECORDS SUMMARY | 2024-04-09 10:23 | XMS_ITS | Encounter Summary ---
Author Organization [facility] Address [address] [place] [address] Phone Care Team Providers Care Jet Mechanic Name Role Phone Nick Bonner MD Primary Care Provider [phone] Encounter Details Date Type Department Care Team (Late st Contact Info) Description 11/10/2021 Telephone [facility] [address] [place] [address] Inocente Martínez MD Social History [...] on filedocumented in this encounter Care Teams Jet Mechanic Relationship Specialty Start Date End Date Nick Bonner MD [address] [place], [place] [address], [place] [address] PCP - General Internal Medicine 05/14/20 documented as of this encounter
--- OUTSIDE RECORDS SUMMARY | 2024-04-09 10:24 | XMS_ITS | Clinical Summary ---
Author Organization [facility] Address [address] [place] [address] Phone Care Team Providers Care Composite Boat Builder Name Role Phone Nick Bonner MD Primary Care Provider [phone] Allergies No known active allergies Medications ascorbic [...] mg by mouth daily 06/01/2020 Active pancrelipase, Dvy-Zaim-Wegu, (Creon) 9624-8771 units capsule TAKE 1 CAPSULE BY MOUTH [...] [facility] Care Teams Composite Boat Builder Relationship Specialty Start Date End Date Nick Bonner MD [address] [place] [id number] PCP - General Internal Medicine 05/14/20
== END 2024-04-09 10:17 | disposition home or self-care (01) ==
PROVIDERS: PCP Internal Medicine; Visit Provider Surgery Vascular Surgery
DX: I71.43 Infrarenal abdominal aortic aneurysm, without rupture (principal)
CPT/HCPCS: 99214; G2211

== ENCOUNTER → 2024-04-09 09:22 | Outpatient (BNVA) | payer MEDICARE, SELFPAY | PROVIDERS: PCP Internal Medicine; Visit Provider Surgery Vascular Surgery | DX: I71.43 Infrarenal abdominal aortic aneurysm, without rupture (principal) | CPT/HCPCS: 99212 ==

== ENCOUNTER 2024-05-06 08:45 | Outpatient (AMB) | payer MEDICARE, SELFPAY ==
--- NOTE | 2024-05-06 08:50 | A.OFFVIS_ITS ---
Intake Visit Reasons: TM Refer: L STELLA Discussion Intake Note: Trupti is a 73 year old female who presents today for concerns of Left Hip OA to discuss possible Left STELLA. She reports constant pain with nothing that provides relief. Puddler Helper Required: No Allergies No Known Allergies [No Known Allergies*] Allergy (Verified 05/06/24 08:54) Medication List - Last Reconciled 05/06/24 by Tanya Bonilla RN albuterol sulfate 90 mcg/actuation 2 puffs inhalation Q6H PRN ascorbic acid (vitamin C) (Vitamin C) 1,000 mg PO DAILY calcium carbonate 500 mg PO DAILY PRN [catheter insertion kit As directed- 2 kits per month] [catheter irrigation kit As directed- 2 kits per month] cholecalciferol (vitamin D3) 25 mcg PO DAILY colesevelam 1,250 mg (2 x 625 mg) PO BID colestipol 1 g PO BID cyanocobalamin (vitamin B-12) 1,000 mcg PO DAILY dicyclomine 10 mg PO BID digoxin 125 mcg PO Q OTHER DAY escitalopram oxalate 10 mg PO DAILY estradiol 0.01%(0.1mg/gram) 2 grams vaginal MOFR ferrous sulfate 325 mg PO DAILY fluticasone propionate 50 mcg/actuation 2 sprays intranasal DAILY PRN [abdi catheters As directed- 2 catheters per month] folic acid 1 mg PO DAILY hydrocodone-acetaminophen 5-325 mg 1 tab PO Q6H PRN ipratropium-albuterol 0.5 mg-3 mg(2.5 mg base)/3 mL 3 mL inhalation Q4H PRN Lactobacillus rhamnosus GG (Culturelle) 1 cap PO DAILY [leg bags 2 catheter leg bags per month] magnesium citrate 200 mg PO BEDTIME methenamine hippurate 1 g PO DAILY 90 days metoprolol tartrate 50 mg PO BID [night bags As directed- 1 catheter night bag per month] ondansetron HCl 4 mg PO Q6H PRN pantoprazole 40 mg PO DAILY@0630 prochlorperazine maleate 5 mg PO Q12H PRN rivaroxaban (Xarelto) 20 mg PO DAILY@1700 simethicone (Anti-Gas Ultra Strength) 180 mg PO BID simvastatin 40 mg PO BEDTIME [sterile water As directed for abdi catheter irrigation ] vancomycin 125 mg PO Q6H zinc sulfate 50 mg PO DAILY HPI HPI TM Refer: L STELLA Discussion: Details: Trupti is a 73-year-old woman with left hip arthritis that is painful and severe. She has difficulty walking. This is been ongoing for quite some time and I have evaluated her in the past. On her preoperative evaluation she was seen by Anesthesiology, vascular and Cardiology and has subsequently been into the emergency department several times for various reasons. She has history of atrial fibrillation on Xarelto, CKD stage 3, AAA, COPD not on supplemental oxyg en, GERD, history of uterine cancer, hyperlipidemia, hypertension, chronic indwelling Abdi catheter due to neurogenic bladder, sick sinus syndrome with pacemaker in situ who has had multiple falls and is now in a wheelchair. Her fall she states her because of left hip pain. Her prior surgery she was evaluated by anesthesia and deemed moderate risk. [facility] Medical History Chronic atrial fibrillation Small bowel obstruction AAA (abdominal aortic aneurysm) Permanent atrial fibrillation Atrial fibrillation On beta mayra at home Legally blind Retention, urine Pneumonia Exercise hypoxemia GERD (gastroesophageal reflux disease) Hypertension Persistent atrial fibrillation COPD (chronic obstructive pulmonary disease) Dyspnea on exertion HTN (hypertension) Cardiac pacemaker in situ Sick sinus syndrome Surgical History History of endoscopy Hx of colonoscopy History of esophagogastroduodenoscopy (EGD) Hx of hysterectomy Hx of cardiac pacemaker History of radiofrequency ablation (RFA) for complex left atrial arrhythmia History of cardioversion Family History Father CHF (congestive heart failure) Cancer Pacemaker Mother Emphysema lung Social History Household Members: Family Household Members Other:: AND SON Housing: House Are you a primary special needs child caregiver to a significant other at home: No Do you presently have visiting nurse or other home services: Yes ([facility]) Unable to assess alcohol history related to: Unknown Alcohol intake: former Patient Tobacco Use Status: Former Tobacco user Advance Directives Date on File: 07/26/22 service: No Physical Exam Extrem Other: Cachectic woman in a wheelchair with severe left hip pain with internal rotati on. She can walk gingerly with a walker and with pain. Assessment & Plan Assessment & Plan (1) Osteoarthritis of left hip: Code(s): M16.12 - Unilateral primary osteoarthritis, left hip Category: Medical Plan: This is a 73-year-old woman with left hip osteoarthritis that is severe. She has COPD and sick sinus syndrome on Xarelto with a pacemaker. She has C diff colitis and a borderline treatable AAA. I do think she would benefit from a hip replacement but I think such as surgery at a [facility] is high risk. The risks mostly involve medical complications associated with the surgery. For this reason I do think she would benefit from referral to a tertiary care center. I discussed this with her. She is amenable to this. Coding Level of Care Code Est Pt Level 4 (95232) Diagnoses Osteoarthritis of left hip M16.12
== END 2024-05-06 09:18 | disposition home or self-care (01) ==
LOC: HO.HOS 08:45
PROVIDERS: PCP Internal Medicine; Visit Provider Orthopaedic Surgery
DX: M16.12 Unilateral primary osteoarthritis, left hip (principal); J44.9 Chronic obstructive pulmonary disease, unspecified; Z95.0 Presence of cardiac pacemaker
CPT/HCPCS: 99214

== ENCOUNTER 2024-05-06 08:45 | Outpatient (REF) | payer MEDICARE, SELFPAY | END 2024-05-06 08:46 | disposition home or self-care (01) | LOC: HO.HOSX 08:45 | PROVIDERS: PCP Internal Medicine; Visit Provider Orthopaedic Surgery | DX: Z13.89 Encounter for screening for other disorder (principal) | CPT/HCPCS: 99212 ==

== ENCOUNTER 2024-05-06 09:49 | Outpatient (REF) | payer MEDICARE, SELFPAY ==
--- NOTE | ~2024-05-06 | XR_ITS ---
EXAMINATION: XR CHEST CLINICAL INFORMATION: J18.8 [facility] COMPARISON: February 28, 2024. TECHNIQUE: 2 views of the chest were obtained. FINDINGS: Pulmonary reticular pattern. Hyperinflation lungs. No consolidation, pleural effusion or pneumothorax. Cardiomediastinal silhouette size is normal. Calcified plaque thoracic aortic arch. There are 2 intact electrode leads in the right heart chambers from a left-sided neck. Multilevel thoracolumbar spondylosis. XR/XR chest 2V IMPRESSION: Chronic interstitial lung disease. Electronically signed by: Romeo Gray MD 05/06/2024 03:35 PM EDT
[2024-05-06 13:49] LABS: MANUAL DIFF FLAG NO
[2024-05-06 13:55] LABS: Basophils Absolute Auto 0.1 X10*3/uL (0.0-0.2); Basophils Percent Auto 0.8 % (0-2); Eosinophils Absolute Auto 0.1 X10*3/uL (0.0-0.4); Eosinophils Percent Auto 1.8 % (0-4); Hematocrit 39.3 % (37.0-47.0); Hemoglobin 11.7 g/dl (12.0-16.0); Imm Gran Abs Auto 0.13 X10*3/uL (0.00-0.03); Imm Gran Pct Auto 1.8 % (0.0-0.4); Lymphocytes Absolute Auto 0.8 X10*3/uL (1.2-4.9); Lymphocytes Percent Auto 11.2 % (20-40); Mean Corpuscular HGB Conc 29.8 g/dl (31.0-35.0); Mean Corpuscular Hemoglobin 26.1 pg (27.0-33.0); Mean Corpuscular Volume 87.5 fL (80.0-98.0); Mean Platelet Volume 10.1 fL (9.4-12.3); Monocytes Absolute Auto 0.6 X10*3/uL (0.1-1.2); Monocytes Percent Auto 8.3 % (2-11); Neutrophils Absolute Auto 5.6 x10*3/uL (2.0-8.3); Neutrophils Percent Auto 76.1 % (45-73); Platelet Count 274 X10*3/uL (160-400); Red Blood Count 4.49 X10*6/uL (4.20-5.50); Red Cell Distribution Width 16.3 % (11.0-16.0); White Blood Count 7.4 X10*3/uL (4.8-10.8)
[2024-05-06 14:06] LABS: Estimated Average Glucose 123 mg/dL; Hemoglobin A1C 124.0854 umol/L; Hemoglobin A1c % 5.9 % (<6.0)
[2024-05-06 14:34] LABS: Blood Urea Nitrogen 21 mg/dL (9-16); Calcium 8.4 mg/dL (8.4-10.2); Estimated Glomerular Filt Rate > 60; Glucose Random 86 mg/dL (60-115)
[2024-05-06 15:06] LABS: Anion Gap 14 (12-20); Carbon Dioxide 21 mmol/L (22-29); Chloride 109 mmol/L (96-108); Potassium 6.2 mmol/L (3.3-5.1); Sodium 138 mmol/L (135-145)
== END 2024-05-06 09:50 | disposition home or self-care (01) ==
LOC: HO.HMGCX 09:49
PROVIDERS: PCP Internal Medicine; Visit Provider Internal Medicine
DX: K58.9 Irritable bowel syndrome, unspecified (principal); R73.01 Impaired fasting glucose; I48.91 Unspecified atrial fibrillation; J44.9 Chronic obstructive pulmonary disease, unspecified; J18.8 Other pneumonia, unspecified organism; M62.838 Other muscle spasm
CPT/HCPCS: 36415; 71046; 80048; 83036; 85025; 99212

== ENCOUNTER → 2024-05-06 10:02 | Outpatient (BNV) | payer MEDICARE, SELFPAY | PROVIDERS: PCP Internal Medicine; Visit Provider Radiology Diagnostic Radiology | DX: J18.8 Other pneumonia, unspecified organism (principal) | CPT/HCPCS: 71046 ==

== ENCOUNTER 2024-05-14 13:36 | Outpatient (REF) | payer MEDICARE, SELFPAY ==
[2024-05-14 14:27] LABS: Anion Gap 14 (12-20); Blood Urea Nitrogen 22 mg/dL (9-16); Calcium 8.6 mg/dL (8.4-10.2); Carbon Dioxide 20 mmol/L (22-29); Chloride 110 mmol/L (96-108); Estimated Glomerular Filt Rate > 60; Glucose Random 111 mg/dL (60-115); Potassium 5.6 mmol/L (3.3-5.1); Sodium 138 mmol/L (135-145)
--- OUTSIDE RECORDS SUMMARY | 2024-05-14 16:35 | XMS_ITS | Encounter Summary ---
Author Organization [facility] Address [address] [place] [address] Phone Care Team Providers Care Electroencephalographic Technologist Name Role Phone Nick Bonner MD Primary Care Provider [phone] Encounter Details Date Type Department Care Team (Late st Contact Info) Description 11/10/2021 Telephone [facility] [address] [place] [address] Inocente Martínez MD Social History [...] on filedocumented in this encounter Care Teams Electroencephalographic Technologist Relationship Specialty Start Date End Date Nick Bonner MD [address] [place], [place] [address], [place] [address] PCP - General Internal Medicine 05/14/20 documented as of this encounter
--- OUTSIDE RECORDS SUMMARY | 2024-05-14 16:35 | XMS_ITS | Data Portability ---
Author Organization [facility] Dr. [facility], Main Office Address [address] [place] [address] Care Team Providers Care Move Coordinator Name Role Phone PRITI SYLVETSER Primary Care Provider CAROLINEJOSY CORCORAN - 2ND FLOOR OTHER Assessment No assessment [...] Active 2024 Ivanna Gutierrez MD [address], [address], [place], [address] , [facility] [employer] 5 18:57:44 Abdominal aortic aneurysm 561462867 Active 2024 Jonah Khan MD [address], [address], [place], [address] , [facility] [employer] 5 15:23:25 Atrial fibrillation 59853715 Active 2024 Jonah Khan MD [address], [address], [place], [address] , [facility] [employer] 5 15:24:30 Chronic kidney disease stage 3A 027594615 Active 2024 Jonah Khan MD [address], [address], [place], [address] , [facility] [employer] 5 15:24:38 Chronic obstructive pulmonary disease 32438793 Active 2024 Jonah Khan MD [address], [address], [place], [address] , [facility] 5 15:24:43 History of malignant neoplasm of uterine body 788392585 Active 2024 Jonah Khan MD [address], [address], [place], [address] , [facility] 5 15:24:52 Gastroesophag eal reflux disease without esophagitis 968333941 Active 2024 Jonah Khan MD [address], [place], [address] , [facility] 5 15:24:57 Essential hypertension 89813716 Active 2024 Jonah Khan MD [address], [address], [place], [address] , [facility] 5 15:25:03 Mixed hyperlipidemi a 010537286 Active 2024 Jonah Khan MD [address], [address], [place], [address] , [facility] 5 15:25:10 Neurogenic urinary bladder 056106219 Active 2024 Jonah Khan MD [address], [address], [place], [address] , [facility] 5 15:25:20 Sick sinus syndrome 29124942 Active 2024 Jonah Khan MD [address], [address], [place], [address] , [facility] 5 15:25:25 Osteonecrosis of hip 627972094 Active 2024 Not Available [facility] 5 08:55:23 Intestinal obstruction 66700897 Active 2024 Not Available [facility] 5 08:48:53 Recurrent bacterial infection 613788132 Active 2024 Not Available [facility] 5 08:49:58 Hypo-osmolali ty and or hyponatremia 189140661 Active 2024 Not Available [facility] 5 08:50:29 Muscle weakness 77105293 Active 2024 Not Available [facility] 5 08:51:14 Dysphagia 83576366 Active 2024 Not Available [facility] 5 08:51:44 Unsteady when standing 338151230 Active 2024 Not Available [facility] 5 08:52:15 Chronic kidney disease stage 3 532018643 Active 2024 Not Available [facility] 5 08:53:48 Abdominal aortic aneurysm without rupture 80071655 Active 2024 Not Available [facility] 5 08:54:19 Hyperlipidemi a 38555982 Active 2024 Not Available [facility] 5 08:54:20 Iron deficiency anemia 20256423 Active 2024 Not Available [facility] 5 12:58:42 Recurrent depression 486700278 Active 2024 Not Available [facility] 5 12:58:44 Pneumonia 401722235 Active 2024 Abby Razo NP [address], [address], [place], [address] , [facility] 5 20:37:34 Notes:Some problems listed i n Documents: #[id number], #[id number] could not be added to this patient's chart. Please review these documents and add these problems to the patient's [...] Address Organization Details Last Updated DateTime 5 357327. 72 g 68 /min 18 /min 97.5 [degF] 96 % 96 % 121 mm[Hg] 82 mm[Hg] Abby Razo, GABBY [address], [address], [place], [address], [facility] 5 14:01:27 Date Recorded Heart rate Respiratory rate Body temperature Oxygen saturation Oxygen saturation in Arterial blood by Pulse oximetry Systolic blood pressure Diastolic blood pressure Provider Name and Address Organization Details Last Updated DateTime 5 96 /min 18 /min 98.5 [degF] 97 % 97 % 101 mm[Hg] 78 mm[Hg] DERIAN BEE NP [address], [address], [place], [address], [facility] 5 15:46:11 Date Recorded Heart rate Respiratory rate Body temperature Oxygen saturation Oxygen saturation in Arterial blood by Pulse oximetry Systolic blood pressure Diastolic blood pressure Provider Name and Address Organization Details Last Updated DateTime 5 94 /min 18 /min 97.6 [degF] 94 % 94 % 109 mm[Hg] 81 mm[Hg] DERIAN BEE NP [address], [address], [place], [address], [facility] 5 13:05:59 Date Recorded Body weight Heart rate Respiratory rate Body temperature Oxygen saturation Oxygen saturation in Arterial blood by Pulse oximetry Systolic blood pressure Diastolic blood pressure Provider Name and Address Organization Details Last Updated DateTime 5 59892.6 3 g 76 /min 18 /min 98.3 [degF] 96.99 % 96.99 % 128 mm[Hg] 70 mm[Hg] Abby Razo NP [address], [address], [place], [address], [facility] 5 12:35:40 Date Recorded Systolic blood pressure Diastolic blood pressure Provider Name and Address Organization Details Last Updated DateTime 04/13/2024 93 mm[Hg] 76 mm[Hg] Jonha Khan MD [address], [address], [place], [address], [facility] 04/13/2024 08:22:45 Social History Question Answer Notes LastModified by Organization Details LastModified Time Tobacco Smoking Status Never Smoker Jonah Khan MD [address], [place], [address], [facility] 03/12/2024 15:37:56 Do You Have An Advance Directive? No Information not available 03/12/2024 What Is Your Level Of Alcohol Consumption? None Information not available 03/12/2024 What Is Your Code Status? Full Code No Art Nutrition Information not available 04/08/2024 Where Do You Live? 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 No Information not available 04/08/2024 What Was [...] SARS-COV-2 (COVID-19) vaccine, UNSPECIFIED 03/06/2020 dev Reyes [facility] 03/12/2024 15:19:00 SARS-COV-2 (COVID-19) vaccine, UNSPECIFIED 04/06/2020 dev Reyes [facility] 03/12/2024 15:19:19 SARS-COV-2 (COVID-19) vaccine, UNSPECIFIED 01/19/2021 dev Reyes [facility] 03/12/2024 15:19:30 SARS-COV-2 (COVID-19) vaccine, UNSPECIFIED 07/08/2021 dev Reyes [facility] 03/12/2024 15:19:37 Past Encounters Encounter ID Performer Location Encounter Start Date Encounter Closed Date Diagnosis/Indication Diagnosis SNOMED-CT Code Diagnosis ICD10 Code Diagnosis Note [id number] MD Syed Mclean at [facility] on [address] [place] [address] 03/12/2024 14:57:39 03/13/2024 09:59:50 Clostridium difficile colitis 847097856 A04.72 concern for sepsis secondary to c diff underwent treatment then question if colonized at [facility] for sxcomplete course of PO vanco Acute kidney injury 1466 9001 N17.8 ARF on CRFimprove d with IVFmonitor renal function Idiopathic avascular necrosis of bone 8047789392 M87.852 avascular necrosis left femoral head on imaging was seen by ortho now with plan to f/u for replacemen t Abdominal aortic aneurysm 127216566 I71.43 [facility] to PMH Asthenia 55879063 R53.1 PT OT eval and treatmonit or fall risk and need for increased support in community Atrial fibrillation 4943 6004 I48.0 xarelto 20 mg qdmetoprol ol 50 mg bidmonitor for rate controlreq uired IV lopressor in hospital Chronic ki dney disease stage 3A 038118189 N18.31 carrying dx with recent ARFmonitor renal functionav oid nephrotoxi c meds as ablenephro consult prn Chronic ob structive pulmonary disease 49272466 J41.1 added to PMHmonitor utilizatio n of albuterol History of malignant neoplasm of uterine body 831788870 Z85.42 added to PMH Gastroesop hageal reflux disease without esophagitis 791429328 K21.9 pantoprazo le 40 mg qdmonitor for sx relief Essential hypertension 81204666 I10 metoprolol 50 mg bidmonitor bp and need to titrate Mixed hyperlipidemia 267 892977 E78.2 simvastati n 40 mg qdcontinue d Neurogenic urinary bladder 573418103 N31.8 abdi cath and care Sick sinus syndrome 3608 3008 I49.5 hx of with pacer in place [id number] LEESA Lynch at [facility] on [address] [place] [address] 03/19/2024 09:16:20 03/20/2024 09:36:50 Clostridium difficile colitis 069771429 A04.72 stools resolvedmo nitor for recurrent loose stool Acute kidney injury 1466 9001 N17.8 labs pending todaylast labs in range 21/0.60 Idiopathic avascular necrosis of bone 3583067116 M87.852 avascular necrosis left femoral head on imaging was seen by ortho now with plan to f/u for replacemen tcontinue PT OT see HPI Atrial fibrillation 4943 6004 I48.0 xarelto 20 mg qdmetoprol ol 50 mg bidrate controlled at [id number] LEESA GUADARRAMA Syed at [facility] on [address] [place] [address] 03/22/2024 11:37:26 03/25/2024 11:02:46 Acute kidney injury 87700480 N17.8 stable for patientlas t labs in range 24/0.80enc ourage PO fluids Idiopathic avascular necrosis of bone 6152288253 M87.852 continue PTPt ambulated short distances up to 30' within room x4 trials, RW, SBA with cues for improved [id number] 30: Car transfer scheduled for this date [...] ol 50 mg bidrate controlled at 79 [id number] LEESA Lynch at [facility] on [address] [place] [address] 03/27/2024 12:47:31 03/28/2024 13:18:07 Acute kidney injury 43188001 N17.8 no labs this week for some reason-add cbc bmp tomorrow 03/28 Atrial fibrillation 4943 6004 I48.0 see HPI- had nuclear stress test today, will follow up tomorrow with cardsconti nue amiodarone 125 mg every other day per cardsxarel to 20 mg qdmetoprol ol 50 mg bid Cough 60374112 R05.9 STAT chest xray two viewsadd cbc with bmp tomorrowsw ab for flu and covid nowmonitor resp status Nausea 768373825 R11.0 continue prn compazine and re-eval in 30 days [id number] LEESA Lynch at [facility] on [address] [place] [address] 03/28/2024 09:25:01 03/29/2024 13:23:38 Acute kidney injury 03520589 N17.8 labs pending today Atrial fibrillation 4943 6004 I48.0 see HPI- had nuclear stress test, follow up with cards tomorrowco ntinue amiodarone 125 mg every other day per cardsxarel to 20 mg qdmetoprol ol 50 mg bid Cough 84704194 R05.9 waiting on xray resultsif positive send home with miquel spent greater than 15 minutes discussing postpone of DC with patient and SW, ultimately wants to leave, wrote rx for miquel Nausea 557962024 R11.0 continue prn compazine Idiopathic avascular necrosis of bone 9576310739 M87.852 avascular necrosis left femoral head on imaging was seen by ortho now with plan to f/u for replacemen t Abdominal aortic aneurysm 173431875 I71.43 followed by [facility] vascular Asthenia 49045371 R53.1 improved Chronic ki dney disease stage 3A 029407473 N18.31 carrying dx with recent ARFPCP to follow labs Chronic ob structive pulmonary disease 87243550 J41.1 added to PMH History of malignant neoplasm of uterine body 876381317 Z85.42 added to PMH Gastroesop hageal reflux disease without esophagitis 001828089 K21.9 pantoprazo le 40 mg qd Essential hypertension 30485194 I10 metoprolol 50 mg bid Mixed hyperlipidemia 267 227720 E78.2 simvastati n 40 mg qdcontinue d Neurogenic urinary bladder 176336281 N31.8 abdi cath and care Sick sinus syndrome 3608 3008 I49.5 hx of with pacer in place [id number] Abby Razo NP [facility] [address] [place] [address] 04/08/2024 13:58:51 04/09/2024 13:16:49 Acute kidney injury 72603340 N17.8 hxlikely in setting of dehydratio n from diarrheacb c bmp weekly x 3 monitor Atrial fibrillation 4943 6006 I48.0 digoxin 125 mcg qodxarelto 20 mg qdmetoprol ol 50 mg bid Idiopathic avascular necrosis of bone 5179775698 M87.852 PT/OT eval and treatchole calciferol 25 mcg qdhydrocod one tyl q 6 hours prn painsuppor tive caremonito r Clostridiu m difficile colitis 048624358 A04.72 tested neg for cdif this admission, had it last admissions tools improving 1-2 per dayvanomyc in po for 2 more dosesmonit or for recurrent loose stool Abdominal aortic aneurysm 411922332 I71.43 [facility] pt with Dr Crook per pt coming upmonitor Asthenia 81714850 R53.1 PT OT eval and treatmonit or fall risk and need for increased support in community Chronic ki dney disease stage 3A 666084963 N18.31 carrying dx with recent ARFmonitor renal functionav oid nephrotoxi c meds as ablenephro consult prn Chronic ob structive pulmonary disease 11139443 J41.1 albuterol prnmonitor History of malignant neoplasm of uterine body 883119427 Z85.42 hx of Gastroesop hageal reflux disease without esophagitis 009455590 K21.9 pantoprazo le 40 mg qdmonitor for sx relief Essential hypertension 55342966 I10 metoprolol 50 mg bidmonitor bp and need to titrate Mixed hyperlipidemia 267 201730 E78.2 simvastati n 40 mg qdcontinue d Neurogenic urinary bladder 344541432 N31.8 abdi cath and carechange monthly per regular regimenmon itor for s/s of infection Sick sinus syndrome 3608 3008 I49.5 hx of with pacer in place Iron defic iency anemia 24055001 D50.9 ferrous sulfate qdvit c qdmonitor labs Recurrent depression 191 353688 F32.A lexapro 10 mg po qdmonitorp sych prn Pneumonia 395798775 J18. 9 with sepsis pneumoniah ad course of ceftriaxon e in hospalb prnduoneb q 4 hours prnmonitor cbc and bmp weekly x 3 Recurrent falls 40084098 2 R29.6 pt with falls from home and very deconditio nedPT OT eval and treatsuppo rtive caremonito r [id number] Jonah Khan MD [facility] [address] 04/13/2024 08:22:12 04/16/2024 10:05:52 Sepsis 17071003 A41.89 complete course of abxmonitor for recurrent infection Asthenia 39588173 R53.1 PT OT eval and treatmonit or fall risk and need for increased support in community Clostridiu m difficile colitis 473725195 A04.72 concern for sepsis secondary to c diff underwent treatment then question if colonized at [facility] for sxcomplete course of PO vanco Acute kidney injury 1466 9001 N17.8 ARF on CRFimprove d with IVFmonitor renal function Idiopathic avascular necrosis of bone 6567915428 M87.852 avascular necrosis left femoral head on imaging was seen by ortho now with plan to f/u for replacemen tcoordinat e care Abdominal aortic aneurysm 261264711 I71.43 [facility] ded to PMH Atrial fibrillation 4943 6004 I48.0 xarelto 20 mg qdmetoprol ol 50 mg bidmonitor for rate control Chronic ki dney disease stage 3A 466804419 N18.31 carrying dx with recent ARFmonitor renal functionav oid nephrotoxi c meds as ablenephro consult prn Chronic ob structive pulmonary disease 41391895 J41.1 added to PMonitor utilizatio n of albuterol History of malignant neoplasm of uterine body 832917780 Z85.42 added to PMH Gastroesop hageal reflux disease without esophagitis 354009496 K21.9 pantoprazo le 40 mg qdmonitor for sx relief Essential hypertension 18984534 I10 metoprolol 50 mg bidmonitor bp and need to titrate Mixed hyperlipidemia 267 211339 E78.2 simvastati n 40 mg qdcontinue d Neurogenic urinary bladder 355997772 N31.8 abdi cath and care Sick sinus syndrome 3608 3008 I49.5 hx of with pacer in place [id number] DERIAN BEE NP [facility] [address] 04/17/2024 15:45:04 04/18/2024 14:24:58 Sepsis 41765000 A41.89 completed course of abxmonitor for recurrent infectionV SS, clinically stableChec k labs prn Idiopathic avascular necrosis of bone 9722027716 M87.852 avascular necrosis left femoral head on imaging was seen by ortho now with plan to f/u for replacemen tcoordinat e care with OrthoPT OT eval and tx. Asthenia 95429497 R53.1 PT OT eval and treatmonit or fall risk and need for increased support in community Clostridiu m difficile colitis 060126200 A04.72 concern for sepsis secondary to c diff underwent treatment then question if colonized at [facility] n[facility] for sxcomplete d course of PO vanco Acute kidney injury 1466 9001 N17.8 ARF on CRFimprove d with IVFmonitor renal function Abdominal aortic aneurysm 462646736 I71.43 [facility] vascular[facility] ded to PMH Atrial fibrillation 4943 6004 I48.0 xarelto 20 mg qdmetoprol ol 50 mg bidmonitor for rate control Chronic ki dney disease stage 3A 050815231 N18.31 carrying dx with recent ARFmonitor renal functionav oid nephrotoxi c meds as ablenephro consult prn Chronic ob structive pulmonary disease 02682537 J41.1 added to PMHmonitor utilizatio n of albuterol History of malignant neoplasm of uterine body 204594663 Z85.42 added to PMH Gastroesop hageal reflux disease without esophagitis 096086442 K21.9 pantoprazo le 40 mg qdmonitor for sx relief Essential hypertension 80398564 I10 metoprolol 50 mg bidmonitor bp and need to titrate Mixed hyperlipidemia 267 346810 E78.2 simvastati n 40 mg qdcontinue d Neurogenic urinary bladder 167322428 N31.8 abdi cath and carecontin ue methenamin e 1 gm qd for UTI proph. Sick sinus syndrome 3608 3008 I49.5 hx of with pacer in place [id number] DERIAN BEE NP [address] [address] 04/24/2024 10:46:51 04/26/2024 14:47:06 Sepsis 81947397 A41.89 resolved.c ompleted course of abxmonitor ing for recurrent infectionV SS, clinically stableChec k labs prn Idiopathic avascular necrosis of bone 3173594672 M87.852 avascular necrosis left femoral head on imaging was seen by ortho now with plan to f/u for replacemen tcoordinat e care with OrthoPT OT eval and tx.Monitor pain, [facility] Asthenia 13952788 R53.1 Continue PT OTmonitor fall risk and need for increased support in community Clostridiu m difficile colitis 622150869 A04.72 concern for sepsis secondary to c diff underwent treatment then question if colonized at [facility] n[facility] for sxcomplete d course of PO vanco Acute kidney injury 1466 9001 N17.8 ARF on CRFimprove d with IVFmonitor renal functionav oid nephrotoxi cs Abdominal aortic aneurysm 077518647 I71.43 [facility] ded to PMH Atrial fibrillation 4943 6004 I48.0 Continue:x arelto 20 mg qdmetoprol ol 50 mg bidmonitor for rate control Chronic ki dney disease stage 3A 008979063 N18.31 carrying dx with recent ARFmonitor renal functionav oid nephrotoxi c meds as ablenephro consult prn Chronic ob structive pulmonary disease 99260840 J41.1 added to PMHmonitor utilizatio n of albuterol History of malignant neoplasm of uterine body 816391055 Z85.42 added to PMH Gastroesop hageal reflux disease without esophagitis 684527592 K21.9 pantoprazo le 40 mg qdmonitor for sx relief Essential hypertension 03656594 I10 continue metoprolol 50 mg bidmonitor bp and need to titrate Mixed hyperlipidemia 267 848971 E78.2 simvastati n 40 mg qdcontinue d Neurogenic urinary bladder 842997470 N31.8 Chronic - indwelling abdi cath x yrs.contin ue methenamin e 1 gm qd for UTI proph. Sick sinus syndrome 3608 3008 I49.5 hx of with pacer in place Insomnia 901023590 G47.0 9 Pt. requesting sleep aid - add melatonin 5 mg q HS prnMonitor use and effect. Cramp in lower limb 4499 15509 R25.2 In calves, comes and goes, gets some relief when legs moved and stretched. Already on Fe, vitamin/mi neral supplement s.Also on statin.Elle ck labs - CBC, BMP Mg FeContinue to monitor closelyCon grinding wheel dresser tonic water prnAdden dum - will add tizanidine 2 mg q hs prn for now - monitor use and effect. [id number] Abby Razo NP [address] [place] [address] 04/29/2024 12:34:25 05/01/2024 15:15:14 Sepsis 51041185 A41.89 resolved.c ompleted course of abx Insomnia 953973747 G47.0 9 while her melatonin addedcontm elatonin 5 mg q HS prnMonitor use and effect outpt with pcp Cramp in lower limb 4499 97207 R25.2 In calves, comes and goes, gets some relief when legs moved and stretched. resolvingA lready on Fe, vitamin/mi neral supplement s.Also on statin.add ed tizanidine 2 mg q hs prn here with effect will continue prnfu with pcp outpt Idiopathic avascular necrosis of bone 7167095273 M87.852 avascular necrosis left femoral head on imaging was seen by ortho now with plan to f/u for replacemen t=coordina te care with Ortho for future surgeryPT OT eval and tx. prn outptMonit or outpt with pcp and fu with ortho on 05/06hydroc odone/tyl 1 tab q 6 hours prn Asthenia 87609777 R53.1 Continue PT OTmonitor fall risk and need for increased support in community Clostridiu m difficile colitis 844267697 A04.72 resolvedco ncern for sepsis secondary to c diff underwent treatment then question if colonized at [facility] n[facility] for sxcomplete d course of PO vanco and symptomati c Acute kidney injury 1466 9001 N17.8 ARF resolvedAR F on CRFimprove d with IVFmonitor renal functionav oid nephrotoxi csfu with pcp Abdominal aortic aneurysm 736105433 I71.43 followed by [facility] vascular Atrial fibrillation 4943 6004 I48.0 Continue:x arelto 20 mg qdmetoprol ol 50 mg bidmonitor for rate controlfu with pcp Chronic ki dney disease stage 3A 810077743 N18.31 carrying dx with recent ARFmonitor renal functionav oid nephrotoxi c meds as ablenephro consult prnfu with pcp Chronic ob structive pulmonary disease 11922445 J41.1 hx ofmonitor utilizatio n of albuterolf u with pcp History of malignant neoplasm of uterine body 064682105 Z85.42 hx ofchronic foleyfu with pcp Gastroesop hageal reflux disease without esophagitis 387452063 K21.9 pantoprazo le 40 mg qdmonitor for sx relief wtih pcp outpt Essential hypertension 31052507 I10 continue metoprolol 50 mg bidmonitor bp and need to titrate outpt with pcp Mixed hyperlipidemia 267 183392 E78.2 simvastati n 40 mg qdcontinue d with pcp outpt Neurogenic urinary bladder 088826119 N31.8 Chronic - indwelling abdi cath x yrs.contin uemethenam ine 1 gm qd for UTI proph.fu with outpt with pcp Sick sinus syndrome 3608 3008 I49.5 hx of with pacer in place Health Concerns Section Related Observation LastModified by Organization Detai ls LastModified Time None Recorded Concern Status LastModified by Organization Details LastModified Time None Recorded Advance Directives Directive N: Payers Encounter Date Sequence Insurance Name Policy Number Policy Ruiz Covered Member ID Ruiz Member ID Guarantor Name 04/08/2024 1 [facility] MEDICARE PREFERRED (MEDICARE REPLACEMENT HMO) PRAKASH Jung [id number] Trupti Jung 04/13/2024 1 [facility] MEDICARE PREFERRED (MEDICARE REPLACEMENT HMO) PRAKASH Jung [id number] Trupti Jung 04/17/2024 1 [facility] MEDICARE PREFERRED (MEDICARE REPLACEMENT HMO) PRAKASH Jung [id number] Trupti Jung 04/24/2024 1 [facility] MEDICARE PREFERRED (MEDICARE REPLACEMENT HMO) PRAKASH Jung [id number] Trupti Jung 04/29/2024 1 [facility] MEDICARE PREFERRED (MEDICARE REPLACEMENT HMO) PRAKASH Jung [id number] Trupti Jung Notes Date Note Type Note Provider Name and Address Organization Details Recorded Time 04/08/2024 text/html Patient is a 73 yo female seen today for an initial intake visit. PMH significant for AAA follow by [facility] vascular, a fib, crf stage , copd, gerd, hx uterine ca,hld, htn, neurogenic bladder with abdi, SSS s/p pacer, avascualar necrosis of left hip Trupti is a 73 yo f here at [facility] admission for recent hospitalization 02/27-03/03 for c diff sepsis and dc to rehab at [facility] one subsequently dc'd on 03/28/24. Since discharged from home she returned to the [facility] ER on 03/29/24- for progressively weak, persistent [...] nutrition, dialysis and ivf okayMORSE: high riskBIMS 15/15 Abby Razo NP [address], [address], [place], [address], [facility] 04/08/2024 20:42:30 04/13/2024 text/html Patient is a 73 yo female previously admitted to SNF after recent hospitalization presenting with increasing weakness and SOB. Noted tachycardia with concern for sepsis secondary to c diff underwent treatment then question if colonized at baseline. Rapid a fib required IV lopressor. Patient with noted avascular necrosis left femoral head on imaging was seen by ortho now with plan to f/u for replacement. Hyponatremia treated with IVF. After return home continued to decline with increased difficulty walking and worsening asthenia. Returned to ED with concern for sepsis treated with rocephin and PO vanco for c diff prophylaxis PMH significant forAAA follow by [facility] fibcrf stage 3copdgerdhx uterine cahldhtnneurogenic bladder with foleySSS s/p pacer admit to facility for continued care and therapy Jonah Khan MD [address], [address], [place], [address], [facility] 04/13/2024 08:34:24 04/17/2024 text/html Trupti is see n today for an acute visit. She is a 73 yo female previously admitted to SNF after recent hospitalization presenting with increasing weakness and SOB. Noted tachycardia with concern for sepsis secondary to c diff underwent treatment then question if colonized at baseline. Rapid a fib required IV lopressor. Patient with noted avascular necrosis left femoral head on imaging was seen by ortho now with plan to f/u for replacement. Hyponatremia treated with IVF. After return home continued to decline with increased difficulty walking and worsening asthenia. Returned to ED with concern for sepsis treated with rocephin and PO vanco for c diff prophylaxis. Since admission, Trupti has been stable.She is working with rehab, making some gains, aware she needs a new hip which frustrates her some. Pain managed at this time. Denies other complaints. Currently resting in bed, NAD.No new concerns per nsg. VSSLast labs 3/3 stable. PMH significant forAAA follow by [facility] fibcrf stage 3copdgerdhx uterine cahldhtnneurogenic bladder with foleySSS s/p pacer admit to facility for continued care and therapy DERIAN BEE NP [address], [address], [place], [address], [facility] 04/17/2024 15:56:56 04/24/2024 text/html Trupti is see n today for an acute visit. She is a 73 yo female previously admitted to SNF after recent hospitalization presenting with increasing weakness and SOB. Noted tachycardia with concern for sepsis secondary to c diff underwent treatment then question if colonized at baseline. Rapid a fib required IV lopressor. Patient with noted avascular necrosis left femoral head on imaging was seen by ortho now with plan to f/u for replacement. Hyponatremia treated with IVF. After return home continued to decline with increased difficulty walking and worsening asthenia. Returned to ED with concern for sepsis treated with rocephin and PO vanco for c diff prophylaxis. Since admission, Trupti continues to work with rehab, making some gains. Pain managed at this time. Getting OOB twice a day.Asking for prn sleep med, also c/o calf cramps, wondering if she can take something for it. Has had this concern for a while, not a new issue. Denies other complaints. Currently resting in bed, NAD.No new concerns per nsg. VSSLast labs 04/18 stable. Meds reviewed, no recent med changes. PMH significant forAAA follow by [facility] fibcrf stage 3copdgerdhx uterine cahldhtnneurogenic bladder with foleySSS s/p pacer DERIAN BEE NP [address] [place] [address], [address], [place], [address], [facility] 04/24/2024 14:07:19 04/29/2024 text/html Trupti is see n today for a discharge visit. PMH significant for AAA follow by [facility] vascular, [place] fib, crf stage , copd, gerd, hx uterine ca,hld, htn, neurogenic bladder with abdi, SSS s/p pacer She is a 73 yo female previously admitted to SNF after recent hospitalization presenting with increasing weakness and SOB. Noted tachycardia with concern for sepsis secondary to c diff underwent treatment then question if colonized at baseline. Rapid a fib required IV lopressor. Patient with noted avascular necrosis left femoral head on imaging was seen by ortho now with plan to f/u for replacement. Hyponatremia treated with IVF. After return home continued to decline with increased difficulty walking and worsening asthenia. Returned to ED with concern for sepsis treated with rocephin and PO vanco for c diff prophylaxis. She was [facility] for [facility] and care. Since here Trupti is doing well. She has been working with therapy and has been working on weight bearing and mobility. Overall, improving and will dc home. She will fu with ortho on 05/06 and make an appt with her pcp soon. She is aware she will go home with remainder of hydrocodone and tizanidine for her pain and spasms. Abby Razo NP [address], [address], [place], [address], [facility] - [facility] 05/01/2024 12:03:58 OBGyn Episode No OBEpisode recorded.
--- OUTSIDE RECORDS SUMMARY | 2024-05-14 16:35 | XMS_ITS | Clinical Summary ---
Author Organization [facility] Address [address] [place] [address] Care Team Providers Care Incident Response Specialist Name Role Phone Elena Jacobo FINANCIAL CONSULTANT Primary Care Provider Allergies No known active [...] 2 (two) times a day. Active Pancrelipase, [id number]-Jqad, (Creon) 9191-2752 units Cap Particles Take 1 capsule by [...] this topic Medical Devices Implanted Type Area [place] [employer] Device Identifier Shelf Expiration Date Model / Serial / Lot Pacemaker Pacemaker Advance Directives * Full Code (Latest Code Status on File) Date Activated Date Inactivated Comments 12/11/2020 8:56 AM Care Teams Incident Response Specialist Relationship Specialty Start Date End Date Elena Jacobo NP [address] [place] [id number] PCP - General Adult Health - ELPIDIO/JALEN/GABBY/TARIK 12/11/20
--- OUTSIDE RECORDS SUMMARY | 2024-05-14 16:36 | XMS_ITS | Clinical Summary ---
Author Organization [facility] Address [address] [place] [address] Phone Care Team Providers Care Stone Finisher Name Role Phone Nick Bonner MD Primary Care Provider [phone] Allergies No known active allergies Medications ascorbic [...] mg by mouth daily 06/01/2020 Active pancrelipase, Asl-[id number]-Krfg, (Creon) 4679-6196 units capsule TAKE 1 CAPSULE BY MOUTH [...] Colorectal Cancer Screening: Sigmoidoscopy 1998 Influenza Vaccine (Season Ended) 2024 11/27/19 21 Hepatitis B Vaccine Aged Out No longe r eligible based on patient's age to complete this topic Insurance [facility] Care Teams Stone Finisher Relationship Specialty Start Date End Date Nick Bonner MD [address] [place] [id number] PCP - General Internal Medicine 05/14/20
== END 2024-05-14 13:37 | disposition home or self-care (01) ==
LOC: HO.HVNA 13:36
PROVIDERS: Visit Provider Internal Medicine
DX: R79.89 Other specified abnormal findings of blood chemistry (principal)
CPT/HCPCS: 36415; 80048

== ENCOUNTER 2024-05-20 14:01 | Outpatient (REF) | payer MEDICARE, SELFPAY ==
[2024-05-20 14:55] LABS: Potassium 5.1 mmol/L (3.3-5.1)
--- OUTSIDE RECORDS SUMMARY | 2024-05-20 16:21 | XMS_ITS | Data Portability ---
Author Organization [facility] [employer] [facility] Main Office Address [address] [place] [address] Care Team Providers Care Candy Puller Name Role Phone PRITI SYLVESTER Primary Care Provider [phone] CAROLINEJOSY CORCORAN - 2ND FLOOR OTHER Assessment [...] bone Active 2024 Ivanna Gutierrez MD [address] [facility], [address], [place], [address] , [facility] [employer] 5 18:57:44 Abdominal aortic aneurysm 867736397 Active 2024 Jonah Khan MD [address] [facility], [address], [place], [address] , [facility] [employer] 5 15:23:25 Atrial fibrillation 34920862 Active 2024 Jonah Khan MD [address] [facility], [address], [place], [address] , [facility] [employer] 5 15:24:30 Chronic kidney disease stage 3A 408421283 Active 2024 Jonah Khan MD [address] [facility], [address], [place], [address] , [facility] [employer] 5 15:24:38 Chronic obstructive pulmonary disease 47278642 Active 2024 Jonah Khan MD [address] [facility], [address], [place], [address] , [facility] 5 15:24:43 History of malignant neoplasm of uterine body 785653916 Active 2024 Jonah Khan MD [address], [address], [place], [address] , [facility] 5 15:24:52 Gastroesophag eal reflux disease without esophagitis 854933631 Active 2024 Jonah Khan MD [address], [place], [address] , [facility] 5 15:24:57 Essential hypertension 48759456 Active 2024 Jonah Khan MD [address] [facility], [address], [place], [address] , [facility] 5 15:25:03 Mixed hyperlipidemi a 010994629 Active 2024 Jonah Khan MD [address] [facility], [address], [place], [address] , [facility] 5 15:25:10 Neurogenic urinary bladder 320014298 Active 2024 Jonah Khan MD [address] [facility], [address], [place], [address] , [facility] 5 15:25:20 Sick sinus syndrome 20652074 Active 2024 Jonah Khan MD [address] [facility], [address], [place], [address] , [facility] 5 15:25:25 Osteonecrosis of hip 695619934 Active 2024 Not Available [facility] 5 08:55:23 Intestinal obstruction 58295210 Active 2024 Not Available [facility] 5 08:48:53 Recurrent bacterial infection 501259164 Active 2024 Not Available [facility] 5 08:49:58 Hypo-osmolali ty and or hyponatremia 707910038 Active 2024 Not Available [facility] 5 08:50:29 Muscle weakness 46502423 Active 2024 Not Available [facility] 5 08:51:14 Dysphagia 37202135 Active 2024 Not Available [facility] 5 08:51:44 Unsteady when standing 261719061 Active 2024 Not Available [facility] 5 08:52:15 Chronic kidney disease stage 3 553562396 Active 2024 Not Available [facility] 5 08:53:48 Abdominal aortic aneurysm without rupture 79413122 Active 2024 Not Available [facility] 5 08:54:19 Hyperlipidemi a 99101123 Active 2024 Not Available [facility] 5 08:54:20 Iron deficiency anemia 65716094 Active 2024 Not Available [facility] 5 12:58:42 Recurrent depression 385526094 Active 2024 Not Available [facility] 5 12:58:44 Pneumonia 695438091 Active 2024 Abby Razo NP [address] [facility], [address], [place], [address] , [facility] 5 20:37:34 Notes:Some problems listed i n Documents: #[id number], #[id number] could not be added to this patient's [...] Address Organization Details Last Updated DateTime 5 281518. 72 g 68 /min 18 /min 97.5 [degF] 96 % 96 % 121 mm[Hg] 82 mm[Hg] Abby Razo, GABBY [address] [facility], [address], [place], [address], [facility] 5 14:01:27 Date Recorded Heart rate Respiratory rate Body temperature Oxygen saturation Oxygen saturation in Arterial blood by Pulse oximetry Systolic blood pressure Diastolic blood pressure Provider Name and Address Organization Details Last Updated DateTime 5 96 /min 18 /min 98.5 [degF] 97 % 97 % 101 mm[Hg] 78 mm[Hg] DERIAN BEE NP [address] [facility], [address], [place], [address], [facility] 5 15:46:11 Date Recorded Heart rate Respiratory rate Body temperature Oxygen saturation Oxygen saturation in Arterial blood by Pulse oximetry Systolic blood pressure Diastolic blood pressure Provider Name and Address Organization Details Last Updated DateTime 5 94 /min 18 /min 97.6 [degF] 94 % 94 % 109 mm[Hg] 81 mm[Hg] DERIAN BEE NP [address] [facility], [address], [place], [address], [facility] 5 13:05:59 Date Recorded Body weight Heart rate Respiratory rate Body temperature Oxygen saturation Oxygen saturation in Arterial blood by Pulse oximetry Systolic blood pressure Diastolic blood pressure Provider Name and Address Organization Details Last Updated DateTime 5 61883.6 3 g 76 /min 18 /min 98.3 [degF] 96.99 % 96.99 % 128 mm[Hg] 70 mm[Hg] Abby Razo NP [address] [facility], [address], [place], [address], [facility] 5 12:35:40 Date Recorded Systolic blood pressure Diastolic blood pressure Provider Name and Address Organization Details Last Updated DateTime 04/13/2024 93 mm[Hg] 76 mm[Hg] Jonah Khan MD [address], [address], [place], [address], [facility] 04/13/2024 08:22:45 Social History Question Answer Notes LastModified by Organization Details LastModified Time Tobacco Smoking Status Never Smoker Jonah Khan MD [address], [place], [address], [facility] 03/12/2024 15:37:56 Do You Have An Advance Directive? No Information not available 03/12/2024 What Is Your Level Of Alcohol Consumption? None Information not available 03/12/2024 What Is Your Code Status? Full Code No Art Nutrition Information not available 04/08/2024 Where Do You Live? SingleLevelHouse Information not available 04/08/2024 Do You Have A Medical Power Of Meat Puller? No Information not available 04/08/2024 What Was [...] SARS-COV-2 (COVID-19) vaccine, UNSPECIFIED 03/06/[address] [facility] 03/12/2024 15:19:00 SARS-COV-2 (COVID-19) vaccine, UNSPECIFIED 04/06/[address] [facility] 03/12/2024 15:19:19 SARS-COV-2 (COVID-19) vaccine, UNSPECIFIED 01/19/[address] [facility] 03/12/2024 15:19:30 SARS-COV-2 (COVID-19) vaccine, UNSPECIFIED 07/08/[address] [facility] 03/12/2024 15:19:37 Past Encounters Encounter ID Performer Location Encounter Start Date Encounter Closed Date Diagnosis/Indication Diagnosis SNOMED-CT Code Diagnosis ICD10 Code Diagnosis Note [id number] MD Syed Mclean at [facility] on [address] [place] [address] 03/12/2024 14:57:39 03/13/2024 09:59:50 Clostridium difficile colitis 321758284 A04.72 concern for sepsis secondary to c diff underwent treatment then question if colonized at [facility] for sxcomplete course of PO vanco Acute kidney injury 1466 9001 N17.8 ARF on CRFimprove d with IVFmonitor renal function Idiopathic avascular necrosis of bone 5487503226 M87.852 avascular necrosis left femoral head on imaging was seen by ortho now with plan to f/u for replacemen t Abdominal aortic aneurysm 244920533 I71.43 [facility] PMH Asthenia 49313873 R53.1 PT OT eval and treatmonit or fall risk and need for increased support in community Atrial fibrillation 4943 6004 I48.0 xarelto 20 mg qdmetoprol ol 50 mg bidmonitor for rate controlreq uired IV lopressor in hospital Chronic ki dney disease stage 3A 598608509 N18.31 carrying dx with recent ARFmonitor renal functionav oid nephrotoxi c meds as ablenephro consult prn Chronic ob structive pulmonary disease 60462136 J41.1 added to PMHmonitor utilizatio n of albuterol History of malignant neoplasm of uterine body 480992130 Z85.42 added to PMH Gastroesop hageal reflux disease without esophagitis 589770050 K21.9 pantoprazo le 40 mg qdmonitor for sx relief Essential hypertension 85961802 I10 metoprolol 50 mg bidmonitor bp and need to titrate Mixed hyperlipidemia 267 656366 E78.2 simvastati n 40 mg qdcontinue d Neurogenic urinary bladder 863013196 N31.8 abdi cath and care Sick sinus syndrome 3608 3008 I49.5 hx of with pacer in place [id number] LEESA Lynch at [facility] on [address] [place] [address] 03/19/2024 09:16:20 03/20/2024 09:36:50 Clostridium difficile colitis 329111485 A04.72 stools resolvedmo nitor for recurrent loose stool Acute kidney injury 1466 9001 N17.8 labs pending todaylast labs in range 21/0.60 Idiopathic avascular necrosis of bone 1470554040 M87.852 avascular necrosis left femoral head on imaging was seen by ortho now with plan to f/u for replacemen tcontinue PT OT see HPI Atrial fibrillation 4943 6004 I48.0 xarelto 20 mg qdmetoprol ol 50 mg bidrate controlled at 79 [id number] LEESA GUADARRAMA Syed at [facility] on [address] [place] [address] 03/22/2024 11:37:26 03/25/2024 11:02:46 Acute kidney injury 38738577 N17.8 stable for patientlas t labs in range 24/0.80enc ourage PO fluids Idiopathic avascular necrosis of bone 1295312643 M87.852 continue PTPt ambulated short distances up to 30' within room x4 trials, RW, SBA with cues for improved [id number] 30: Car transfer scheduled for this date [...] ol 50 mg bidrate controlled at 79 [id number] LEESA Lynch at [facility] on [address] [place] [address] 03/27/2024 12:47:31 03/28/2024 13:18:07 Acute kidney injury 43099951 N17.8 no labs this week for some reason-add cbc bmp tomorrow 03/28 Atrial fibrillation 4943 6004 I48.0 see HPI- had nuclear stress test today, will follow up tomorrow with cardsconti nue amiodarone 125 mg every other day per cardsxarel to 20 mg qdmetoprol ol 50 mg bid Cough 68225348 R05.9 STAT chest xray two viewsadd cbc with bmp tomorrowsw ab for flu and covid nowmonitor resp status Nausea 184404252 R11.0 continue prn compazine and re-eval in 30 days [id number] LEESA Lynch at [facility] on [address] [facility] [place] [address] 03/28/2024 09:25:01 03/29/2024 13:23:38 Acute kidney injury 54742803 N17.8 labs pending today Atrial fibrillation 4943 6004 I48.0 see HPI- had nuclear stress test, follow up with cards tomorrowco ntinue amiodarone 125 mg every other day per cardsxarel to 20 mg qdmetoprol ol 50 mg bid Cough 95330860 R05.9 waiting on xray resultsif positive send home with miquel spent greater than 15 minutes discussing postpone of DC with patient and SW, ultimately wants to leave, wrote rx for miquel Nausea 822710781 R11.0 continue prn compazine Idiopathic avascular necrosis of bone 7343482306 M87.852 avascular necrosis left femoral head on imaging was seen by ortho now with plan to f/u for replacemen t Abdominal aortic aneurysm 943707492 I71.43 followed by [facility] vascular Asthenia [id number] R53.1 improved Chronic ki dney disease stage 3A 621320611 N18.31 carrying dx with recent ARFPCP to follow labs Chronic ob structive pulmonary disease 20820706 J41.1 added to PMH History of malignant neoplasm of uterine body 293768646 Z85.42 added to PMH Gastroesop hageal reflux disease without esophagitis 847177326 K21.9 pantoprazo le 40 mg qd Essential hypertension 03836010 I10 metoprolol 50 mg bid Mixed hyperlipidemia 267 268930 E78.2 simvastati n 40 mg qdcontinue d Neurogenic urinary bladder 284057115 N31.8 abdi cath and care Sick sinus syndrome 3608 3008 I49.5 hx of with pacer in place [id number] Abby Razo NP [facility] [address] [place] [address] 04/08/2024 13:58:51 04/09/2024 13:16:49 Acute kidney injury 24841475 N17.8 hxlikely in setting of dehydratio n from diarrheacb c bmp weekly x 3 monitor Atrial fibrillation 4943 600 I48.0 digoxin 125 mcg qodxarelto 20 mg qdmetoprol ol 50 mg bid Idiopathic avascular necrosis of bone 3771780854 M87.852 PT/OT eval and treatchole calciferol 25 mcg qdhydrocod one tyl q 6 hours prn painsuppor tive caremonito r Clostridiu m difficile colitis 540489439 A04.72 tested neg for cdif this admission, had it last admissions tools improving 1-2 per dayvanomyc in po for 2 more dosesmonit or for recurrent loose stool Abdominal aortic aneurysm 485924949 I71.43 [facility] pt with Dr Crook per pt coming upmonitor Asthenia 01326805 R53.1 PT OT eval and treatmonit or fall risk and need for increased support in community Chronic ki dney disease stage 3A 310618444 N18.31 carrying dx with recent ARFmonitor renal functionav oid nephrotoxi c meds as ablenephro consult prn Chronic ob structive pulmonary disease 07900080 J41.1 albuterol prnmonitor History of malignant neoplasm of uterine body 410680711 Z85.42 hx of Gastroesop hageal reflux disease without esophagitis 590825201 K21.9 pantoprazo le 40 mg qdmonitor for sx relief Essential hypertension 41009466 I10 metoprolol 50 mg bidmonitor bp and need to titrate Mixed hyperlipidemia 267 646460 E78.2 simvastati n 40 mg qdcontinue d Neurogenic urinary bladder 382378026 N31.8 abdi cath and carechange monthly per regular regimenmon itor for s/s of infection Sick sinus syndrome 3608 3008 I49.5 hx of with pacer in place Iron defic iency anemia 57395500 D50.9 ferrous sulfate qdvit c qdmonitor labs Recurrent depression 191 626002 F32.A lexapro 10 mg po qdmonitorp sych prn Pneumonia 648477576 J18. 9 with sepsis pneumoniah ad course of ceftriaxon e in hospalb prnduoneb q 4 hours prnmonitor cbc and bmp weekly x 3 Recurrent falls 16932504 2 R29.6 pt with falls from home and very deconditio nedPT OT eval and treatsuppo rtive caremonito r [id number] Jonah Khan MD [facility] [address] 04/13/2024 08:22:12 04/16/2024 10:05:52 Sepsis 69450001 A41.89 complete course of abxmonitor for recurrent infection Asthenia 57916042 R53.1 PT OT eval and treatmonit or fall risk and need for increased support in community Clostridiu m difficile colitis 267988164 A04.72 concern for sepsis secondary to c diff underwent treatment then question if colonized at [facility] for sxcomplete course of PO vanco Acute kidney injury 1466 9001 N17.8 ARF on CRFimprove d with IVFmonitor renal function Idiopathic avascular necrosis of bone 2440587364 M87.852 avascular necrosis left femoral head on imaging was seen by ortho now with plan to f/u for replacemen tcoordinat e care Abdominal aortic aneurysm 263744671 I71.43 [facility] ded to PMH Atrial fibrillation 4943 6004 I48.0 xarelto 20 mg qdmetoprol ol 50 mg bidmonitor for rate control Chronic ki dney disease stage 3A 665642001 N18.31 carrying dx with recent ARFmonitor renal functionav oid nephrotoxi c meds as ablenephro consult prn Chronic ob structive pulmonary disease 42025573 J41.1 added to PMonitor utilizatio n of albuterol History of malignant neoplasm of uterine body 578572291 Z85.42 added to PMH Gastroesop hageal reflux disease without esophagitis 198676417 K21.9 pantoprazo le 40 mg qdmonitor for sx relief Essential hypertension 77605040 I10 metoprolol 50 mg bidmonitor bp and need to titrate Mixed hyperlipidemia 267 879708 E78.2 simvastati n 40 mg qdcontinue d Neurogenic urinary bladder 856768308 N31.8 abdi cath and care Sick sinus syndrome 3608 3008 I49.5 hx of with pacer in place [id number] DERIAN BEE NP [facility] [address] 04/17/2024 15:45:04 04/18/2024 14:24:58 Sepsis 14286356 A41.89 completed course of abxmonitor for recurrent infectionV SS, clinically stableChec k labs prn Idiopathic avascular necrosis of bone 8295414740 M87.852 avascular necrosis left femoral head on imaging was seen by ortho now with plan to f/u for replacemen tcoordinat e care with OrthoPT OT eval and tx. Asthenia 21157849 R53.1 PT OT eval and treatmonit or fall risk and need for increased support in community Clostridiu m difficile colitis 975276267 A04.72 concern for sepsis secondary to c diff underwent treatment then question if colonized at [facility] for sxcomplete d course of PO vanco Acute kidney injury 1466 9001 N17.8 ARF on CRFimprove d with IVFmonitor renal function Abdominal aortic aneurysm 362800352 I71.43 [facility] ded to PMH Atrial fibrillation 4943 6004 I48.0 xarelto 20 mg qdmetoprol ol 50 mg bidmonitor for rate control Chronic ki dney disease stage 3A 567323075 N18.31 carrying dx with recent ARFmonitor renal functionav oid nephrotoxi c meds as ablenephro consult prn Chronic ob structive pulmonary disease 27822287 J41.1 added to PMHmonitor utilizatio n of albuterol History of malignant neoplasm of uterine body 894279411 Z85.42 added to PMH Gastroesop hageal reflux disease without esophagitis 473827614 K21.9 pantoprazo le 40 mg qdmonitor for sx relief Essential hypertension 64157459 I10 metoprolol 50 mg bidmonitor bp and need to titrate Mixed hyperlipidemia 267 976288 E78.2 simvastati n 40 mg qdcontinue d Neurogenic urinary bladder 645456952 N31.8 abdi cath and carecontin ue methenamin e 1 gm qd for UTI proph. Sick sinus syndrome 3608 3008 I49.5 hx of with pacer in place [id number] DERIAN BEE NP [address] [address] 04/24/2024 10:46:51 04/26/2024 14:47:06 Sepsis 92117011 A41.89 resolved.c ompleted course of abxmonitor ing for recurrent infectionV SS, clinically stableChec k labs prn Idiopathic avascular necrosis of bone 9789614333 M87.852 avascular necrosis left femoral head on imaging was seen by ortho now with plan to f/u for replacemen tcoordinat e care with OrthoPT OT eval and tx.Monitor pain, [facility] Asthenia 24317231 R53.1 Continue PT OTmonitor fall risk and need for increased support in community Clostridiu m difficile colitis 549492613 A04.72 concern for sepsis secondary to c diff underwent treatment then question if colonized at [facility] for sxcomplete d course of PO vanco Acute kidney injury 1466 9001 N17.8 ARF on CRFimprove d with IVFmonitor renal functionav oid nephrotoxi cs Abdominal aortic aneurysm 417895272 I71.43 [facility]ad ded to PMH Atrial fibrillation 4943 6004 I48.0 Continue:x arelto 20 mg qdmetoprol ol 50 mg bidmonitor for rate control Chronic ki dney disease stage 3A 671547248 N18.31 carrying dx with recent ARFmonitor renal functionav oid nephrotoxi c meds as ablenephro consult prn Chronic ob structive pulmonary disease 93908401 J41.1 added to PMHmonitor utilizatio n of albuterol History of malignant neoplasm of uterine body 326919146 Z85.42 added to PMH Gastroesop hageal reflux disease without esophagitis 048382674 K21.9 pantoprazo le 40 mg qdmonitor for sx relief Essential hypertension 84977615 I10 continue metoprolol 50 mg bidmonitor bp and need to titrate Mixed hyperlipidemia 267 732799 E78.2 simvastati n 40 mg qdcontinue d Neurogenic urinary bladder 559497026 N31.8 Chronic - indwelling abdi cath x yrs.contin ue methenamin e 1 gm qd for UTI proph. Sick sinus syndrome 3608 3008 I49.5 hx of with pacer in place Insomnia 255001209 G47.0 9 Pt. requesting sleep aid - add melatonin 5 mg q HS prnMonitor use and effect. Cramp in lower limb 4499 71927 R25.2 In calves, comes and goes, gets some relief when legs moved and stretched. Already on Fe, vitamin/mi neral supplement s.Also on statin.Elle ck labs - CBC, BMP Mg FeContinue to monitor closelyCon painter decorator tonic water prnAdden dum - will add tizanidine 2 mg q hs prn for now - monitor use and effect. [id number] Abby Razo NP [address] [place] [address] 04/29/2024 12:34:25 05/01/2024 15:15:14 Sepsis 57400859 A41.89 resolved.c ompleted course of abx Insomnia 045226628 G47.0 9 while her melatonin addedcontm elatonin 5 mg q HS prnMonitor use and effect outpt with pcp Cramp in lower limb 4499 10490 R25.2 In calves, comes and goes, gets some relief when legs moved and stretched. resolvingA lready on Fe, vitamin/mi neral supplement s.Also on statin.add ed tizanidine 2 mg q hs prn here with effect will continue prnfu with pcp outpt Idiopathic avascular necrosis of bone 0892657852 M87.852 avascular necrosis left femoral head on imaging was seen by ortho now with plan to f/u for replacemen t=coordina te care with Ortho for future surgeryPT OT eval and tx. prn outptMonit or outpt with pcp and fu with ortho on 05/06hydroc odone/tyl 1 tab q 6 hours prn Asthenia 25828803 R53.1 Continue PT OTmonitor fall risk and need for increased support in community Clostridiu m difficile colitis 808917187 A04.72 resolvedco ncern for sepsis secondary to c diff underwent treatment then question if colonized at [facility] for sxcomplete d course of PO vanco and symptomati c Acute kidney injury 1466 9001 N17.8 ARF resolvedAR F on CRFimprove d with IVFmonitor renal functionav oid nephrotoxi csfu with pcp Abdominal aortic aneurysm 547778346 I71.43 followed by [facility] vascular Atrial fibrillation 4943 6004 I48.0 Continue:x arelto 20 mg qdmetoprol ol 50 mg bidmonitor for rate controlfu with pcp Chronic ki dney disease stage 3A 523073136 N18.31 carrying dx with recent ARFmonitor renal functionav oid nephrotoxi c meds as ablenephro consult prnfu with pcp Chronic ob structive pulmonary disease 84797448 J41.1 hx ofmonitor utilizatio n of albuterolf u with pcp History of malignant neoplasm of uterine body 320196424 Z85.42 hx ofchronic foleyfu with pcp Gastroesop hageal reflux disease without esophagitis 576839072 K21.9 pantoprazo le 40 mg qdmonitor for sx relief wtih pcp outpt Essential hypertension 16089182 I10 continue metoprolol 50 mg bidmonitor bp and need to titrate outpt with pcp Mixed hyperlipidemia 267 093583 E78.2 simvastati n 40 mg qdcontinue d with pcp outpt Neurogenic urinary bladder 371646189 N31.8 Chronic - indwelling abdi cath x [...] Ruiz Member ID Guarantor Name 04/08/2024 1 [facility] MEDICARE PREFERRED (MEDICARE REPLACEMENT HMO) PRAKASH Jung [id number] Trupti Jung 04/13/2024 1 [facility] MEDICARE PREFERRED (MEDICARE REPLACEMENT HMO) PRAKASH Jung [id number] Trupti Jung 04/17/2024 1 [facility] MEDICARE PREFERRED (MEDICARE REPLACEMENT HMO) PRAKASH Jung [id number] Trupti Jung 04/24/2024 1 [facility] MEDICARE PREFERRED (MEDICARE REPLACEMENT HMO) PRAKASH Jung [id number] Trupti Jung 04/29/2024 1 [facility] MEDICARE PREFERRED (MEDICARE REPLACEMENT HMO) PRAKASH Jung [id number] Trupti Jung Notes Date Note Type Note Provider Name and Address Organization Details Recorded Time 04/08/2024 text/html Patient is a 73 yo female seen today for an initial intake visit. PMH significant for AAA follow by [facility] vascular, a fib, crf stage , copd, gerd, hx uterine ca,hld, htn, neurogenic bladder with abdi, SSS s/p pacer, avascualar necrosis of left hip Trupti is a 73 yo f here at [facility] for rehab post [facility] admission for recent hospitalization 02/27-03/03 for c diff sepsis and dc to rehab at [facility] one subsequently dc'd on 03/28/24. Since discharged from home she returned to the [facility] ER on 03/29/24- for progressively [...] high riskBIMS 15/15 Abby Razo NP [address] [facility], [address], [place], [address], [facility] [employer] 04/08/2024 20:42:30 04/13/2024 text/html Patient is a [...] diff prophylaxis PMH significant forAAA follow by [facility] fibcrf stage 3copdgerdhx uterine cahldhtnneurogenic bladder with foleySSS s/p pacer admit to facility for continued care and therapy Jonah Khan MD [address] [facility], [address], [place], [address], [facility] 04/13/2024 08:34:24 04/17/2024 text/html Trupti is [...] 3/3 stable. PMH significant forAAA follow by [facility] fibcrf stage 3copdgerdhx uterine cahldhtnneurogenic bladder with foleySSS s/p pacer admit to facility for continued care and therapy DERIAN BEE NP [address] [facility], [address], [place], [address], [facility] [employer] [facility] 04/17/2024 15:56:56 04/24/2024 text/html Trupti is [...] med changes. PMH significant forAAA follow by [facility] sadia fibcrf stage 3copdgerdhx uterine cahldhtnneurogenic bladder with foleySSS s/p pacer DERIAN BEE NP [address] [place] [address], [address], [place], [address], [facility] [employer] 04/24/2024 14:07:19 04/29/2024 text/html Trupti is see n today for a discharge visit. PMH significant for AAA follow by [facility] vascular, tejas fib, crf stage , copd, [...] diff prophylaxis. She was admitted to to [facility] for rehab and care. Since here Trupti [...] pain and spasms. Abby Razo NP [address] [facility], [address], [place], [address], [facility] - [employer] 05/01/2024 12:03:58 OBGyn Episode No OBEpisode recorded.
--- OUTSIDE RECORDS SUMMARY | 2024-05-20 16:21 | XMS_ITS | Clinical Summary ---
Author Organization [facility] Address [address] [place] [address] Care Team Providers Care Quality Control Supervisor Name Role Phone Elena Jacobo ALUMINUM POOL INSTALLER Primary Care Provider Allergies No known active [...] 2 (two) times a day. Active Pancrelipase, Fll-Crnw-Dbcl, (Creon) 4840-8995 units Cap Particles Take 1 capsule by [...] this topic Medical Devices Implanted Type Area Education Dean Device Identifier Shelf Expiration Date Model / Serial / Lot Pacemaker Pacemaker Advance Directives * Full Code (Latest Code Status on File) Date Activated Date Inactivated Comments 12/11/2020 8:56 AM Care Teams Quality Control Supervisor Relationship Specialty Start Date End Date Elena Jacobo NP [address] [place] [id number] PCP - General Adult Health - ELPIDIO/JALEN/GABBY/TARIK 12/11/20
--- OUTSIDE RECORDS SUMMARY | 2024-05-20 16:21 | XMS_ITS | Encounter Summary ---
Author Organization [facility] Address [address] [place] [address] Phone Care Team Providers Care Contract Coordinator Name Role Phone Nick Bonner MD Primary Care Provider [phone] Encounter Details Date Type Department Care Team (Late st Contact Info) Description 11/10/2021 Telephone [facility] [address] [place] [address] Inocente Martínez MD Social History [...] on filedocumented in this encounter Care Teams Contract Coordinator Relationship Specialty Start Date End Date Nick Bonner MD [address] [place], [place] [address], [place] [address] PCP - General Internal Medicine 05/14/20 documented as of this encounter
--- OUTSIDE RECORDS SUMMARY | 2024-05-20 16:21 | XMS_ITS | Clinical Summary ---
Author Organization [facility] Address [address] [place] [address] Phone Care Team Providers Care Property Technician Name Role Phone Nick Bonner MD Primary Care Provider [phone] Allergies No known active allergies Medications ascorbic [...] mg by mouth daily 06/01/2020 Active pancrelipase, Jzf-Huzw-Kcee, (Creon) 6110-2124 units capsule TAKE 1 CAPSULE BY MOUTH [...] Sick sinus syndrome 07/08/2020 11/12/19 21 Immunizations Immunization Administration Dates Next Due Moderna SARS-COV-2 04/06/2020,03/06/2020 [...] Comments Breast Cancer Screening 1950 Pneumococcal Vaccine: 50+ Ye ars (1 of 2 - PCV) 1968 Colorectal Cancer Screening: Annual FOBT 1998 Colorectal Cancer Screening: Colonoscopy 1998 Colorectal Cancer Screening: Sigmoidoscopy 1998 Influenza Vaccine (Season Ended) 2024 11/27/19 21 Hepatitis B Vaccine Aged Out No longe r eligible based on patient's age to complete this topic Insurance [facility] Care Teams Property Technician Relationship Specialty Start Date End Date Nick Bonner MD [address] [place] [id number] PCP - General Internal Medicine 05/14/20
== END 2024-05-20 14:02 | disposition home or self-care (01) ==
LOC: HO.HVNA 14:01
PROVIDERS: Visit Provider Internal Medicine
DX: A41.9 Sepsis, unspecified organism (principal); E87.5 Hyperkalemia
CPT/HCPCS: 36415; 84132

== ENCOUNTER 2024-05-31 11:00 | Outpatient (REF) | payer MEDICARE, SELFPAY ==
--- OUTSIDE RECORDS SUMMARY | 2024-05-31 14:26 | XMS_ITS | Data Portability ---
Author Organization [facility] [employer] [facility] (formerly [facility]), Main Office Address [address] [place] [address] Care Team Providers Care Wire Weaver Cloth Name Role Phone PRITI SYLVESTER Primary Care [...] bone Active 2024 Ivanna Gutierrez MD [address] [facility] [address], [address], [place], [address] , [facility] [employer] 5 18:57:44 Abdominal aortic aneurysm 976595282 Active 2024 Jonah Khan MD [address] [facility] [address], [address], [place], [address] , [facility] [employer] 5 15:23:25 Atrial fibrillation 44734717 Active 2024 Jonah Khan MD [address] [facility] [address], [address], [place], [address] , [facility] [employer] 5 15:24:30 Chronic kidney disease stage 3A 133851559 Active 2024 Jonah Khan MD [address] [facility] [address], [address], [place], [address] , [facility] [employer] 5 15:24:38 Chronic obstructive pulmonary disease 93878121 Active 2024 Jonah Khan MD [address] [facility] [address], [address], [place], [address] , [employer] 5 15:24:43 History of malignant neoplasm of uterine body 426891344 Active 2024 Jonah Khan MD [address], [place], [address] , [facility] 5 15:24:52 Gastroesophag eal reflux disease without esophagitis 531333832 Active 2024 Jonah Khan MD [address], [place], [address] , [facility] [facility] 5 15:24:57 Essential hypertension 29859445 Active 2024 Jonah Khan MD [address] [facility] [address], [address], [place], [address] , [facility] 5 15:25:03 Mixed hyperlipidemi a 158960413 Active 2024 Jonah Khan MD [address] [facility] [address], [address], [place], [address] , [facility] 5 15:25:10 Neurogenic urinary bladder 450358837 Active 2024 Jonah Khan MD [address] [facility] [address], [address], [place], [address] , [facility] 5 15:25:20 Sick sinus syndrome 94021472 Active 2024 Jonah Khan MD [address] [facility] [address], [address], [place], [address] , [facility] 5 15:25:25 Osteonecrosis of hip 052531436 Active 2024 Not Available [facility] 5 08:55:23 Intestinal obstruction 73754357 Active 2024 Not Available [facility] 5 08:48:53 Recurrent bacterial infection 220406418 Active 2024 Not Available [facility] 5 08:49:58 Hypo-osmolali ty and or hyponatremia 468338980 Active 2024 Not Available [facility] 5 08:50:29 Muscle weakness 66095393 Active 2024 Not Available [facility] 5 08:51:14 Dysphagia 60712352 Active 2024 Not Available [facility] 5 08:51:44 Unsteady when standing 203515125 Active 2024 Not Available [facility] 5 08:52:15 Chronic kidney disease stage 3 115202988 Active 2024 Not Available [facility] 5 08:53:48 Abdominal aortic aneurysm without rupture 54743105 Active 2024 Not Available [facility] 5 08:54:19 Hyperlipidemi a 15152920 Active 2024 Not Available [facility] 5 08:54:20 Iron deficiency anemia 22284723 Active 2024 Not Available [facility] 5 12:58:42 Recurrent depression 017183365 Active 2024 Not Available [facility] 5 12:58:44 Pneumonia 338540600 Active 2024 Abby Razo NP [address] [facility] [address], [address], [place], [address] , [facility] 5 20:37:34 Notes:Some problems listed i n Documents: #[id number], #[id number] could not be added to this patient's [...] Address Organization Details Last Updated DateTime 5 574307. 72 g 68 /min 18 /min 97.5 [degF] 96 % 96 % 121 mm[Hg] 82 mm[Hg] Abby Razo, GABBY [address] [facility] [address], [address], [place], [address], [facility] [facility] 5 14:01:27 Date Recorded Heart rate Respiratory rate Body temperature Oxygen saturation Oxygen saturation in Arterial blood by Pulse oximetry Systolic blood pressure Diastolic blood pressure Provider Name and Address Organization Details Last Updated DateTime 5 96 /min 18 /min 98.5 [degF] 97 % 97 % 101 mm[Hg] 78 mm[Hg] DERIAN BEE NP [address] [facility] [address], [address], [place], [address], [facility] 5 15:46:11 Date Recorded Heart rate Respiratory rate Body temperature Oxygen saturation Oxygen saturation in Arterial blood by Pulse oximetry Systolic blood pressure Diastolic blood pressure Provider Name and Address Organization Details Last Updated DateTime 5 94 /min 18 /min 97.6 [degF] 94 % 94 % 109 mm[Hg] 81 mm[Hg] DERIAN BEE NP [address] [facility] [address], [address], [place], [address], [facility] 5 13:05:59 Date Recorded Body weight Heart rate Respiratory rate Body temperature Oxygen saturation Oxygen saturation in Arterial blood by Pulse oximetry Systolic blood pressure Diastolic blood pressure Provider Name and Address Organization Details Last Updated DateTime 5 57724.6 3 g 76 /min 18 /min 98.3 [degF] 96.99 % 96.99 % 128 mm[Hg] 70 mm[Hg] Abby Razo NP [address] [facility] [address], [address], [place], [address], [facility] 5 12:35:40 Date Recorded Systolic blood pressure Diastolic blood pressure Provider Name and Address Organization Details Last Updated DateTime 04/13/2024 93 mm[Hg] 76 mm[Hg] Jonah Khan MD [address], [address], [place], [address], [facility] 04/13/2024 08:22:45 Social History Question Answer Notes LastModified by Organization Details LastModified Time Tobacco Smoking Status Never Smoker Jonah Khan MD [address] , [address], [place], [address], [facility] 03/12/2024 15:37:56 Do You Have An Advance Directive? No Information not available 03/12/2024 What Is Your Level Of Alcohol Consumption? None Information not available 03/12/2024 What Is Your Code Status? Full Code No Art Nutrition Information not available 04/08/2024 Where Do You Live? SingleLevelHouse Information not available 04/08/2024 Do You Have A Medical Power Of Snaker? No Information not available 04/08/2024 What Was [...] SARS-COV-2 (COVID-19) vaccine, UNSPECIFIED 03/06/2020 [facility] 03/12/2024 15:19:00 SARS-COV-2 (COVID-19) vaccine, UNSPECIFIED 04/06/2020 dev [facility] 03/12/2024 15:19:19 SARS-COV-2 (COVID-19) vaccine, UNSPECIFIED 01/19/2021 dev [facility] 03/12/2024 15:19:30 SARS-COV-2 (COVID-19) vaccine, UNSPECIFIED 07/08/2021 dev [facility] 03/12/2024 15:19:37 Past Encounters Encounter ID Performer Location Encounter Start Date Encounter Closed Date Diagnosis/Indication Diagnosis SNOMED-CT Code Diagnosis ICD10 Code Diagnosis Note [id number] MD Syed Mclean at [facility] on [address] [place] [address] 03/12/2024 14:57:39 03/13/2024 09:59:50 Clostridium difficile colitis 018394150 A04.72 concern for sepsis secondary to c diff underwent treatment then question if colonized at [facility] for sxcomplete course of PO vanco Acute kidney injury 1466 9001 N17.8 ARF on CRFimprove d with IVFmonitor renal function Idiopathic avascular necrosis of bone 9590167849 M87.852 avascular necrosis left femoral head on imaging was seen by ortho now with plan to f/u for replacemen t Abdominal aortic aneurysm 956528976 I71.43 [facility] ded to PMH Asthenia 82763589 R53.1 PT OT eval and treatmonit or fall risk and need for increased support in community Atrial fibrillation 4943 6004 I48.0 xarelto 20 mg qdmetoprol ol 50 mg bidmonitor for rate controlreq uired IV lopressor in hospital Chronic ki dney disease stage 3A 718125923 N18.31 carrying dx with recent ARFmonitor renal functionav oid nephrotoxi c meds as ablenephro consult prn Chronic ob structive pulmonary disease 79973154 J41.1 added to PMHmonitor utilizatio n of albuterol History of malignant neoplasm of uterine body 676098686 Z85.42 added to PMH Gastroesop hageal reflux disease without esophagitis 580302617 K21.9 pantoprazo le 40 mg qdmonitor for sx relief Essential hypertension 88354442 I10 metoprolol 50 mg bidmonitor bp and need to titrate Mixed hyperlipidemia 267 678516 E78.2 simvastati n 40 mg qdcontinue d Neurogenic urinary bladder 091932549 N31.8 abdi cath and care Sick sinus syndrome 3608 3008 I49.5 hx of with pacer in place [id number] LEESA Lynch at [facility] on [address] [place] [address] 03/19/2024 09:16:20 03/20/2024 09:36:50 Clostridium difficile colitis 293122514 A04.72 stools resolvedmo nitor for recurrent loose stool Acute kidney injury 1466 9001 N17.8 labs pending todaylast labs in range 21/0.60 Idiopathic avascular necrosis of bone 3969758973 M87.852 avascular necrosis left femoral head on imaging was seen by ortho now with plan to f/u for replacemen tcontinue PT OT see HPI Atrial fibrillation 4943 6004 I48.0 xarelto 20 mg qdmetoprol ol 50 mg bidrate controlled at 79 [id number] LEESA GUADARRAMA Syed at [facility] on [address] [place] [address] 03/22/2024 11:37:26 03/25/2024 11:02:46 Acute kidney injury 40241105 N17.8 stable for patientlas t labs in range 24/0.80enc ourage PO fluids Idiopathic avascular necrosis of bone 0865193071 M87.852 continue PTPt ambulated short distances up to 30' within room x4 trials, RW, SBA with cues for improved [id number] 30: Car transfer scheduled for this date [...] ol 50 mg bidrate controlled at 79 [id number] LEESA Lynch at [facility] on [address] [place] [address] 03/27/2024 12:47:31 03/28/2024 13:18:07 Acute kidney injury 51779850 N17.8 no labs this week for some reason-add cbc bmp tomorrow 03/28 Atrial fibrillation 4943 6004 I48.0 see HPI- had nuclear stress test today, will follow up tomorrow with cardsconti nue amiodarone 125 mg every other day per cardsxarel to 20 mg qdmetoprol ol 50 mg bid Cough 73123801 R05.9 STAT chest xray two viewsadd cbc with bmp tomorrowsw ab for flu and covid nowmonitor resp status Nausea 286791321 R11.0 continue prn compazine and re-eval in 30 days [id number] LEESA Lynch at [facility] on [address] [facility] [address] 03/28/2024 09:25:01 03/29/2024 13:23:38 Acute kidney injury 82199004 N17.8 labs pending today Atrial fibrillation 4943 6004 I48.0 see HPI- had nuclear stress test, follow up with cards tomorrowco ntinue amiodarone 125 mg every other day per cardsxarel to 20 mg qdmetoprol ol 50 mg bid Cough 43833262 R05.9 waiting on xray resultsif positive send home with miquel spent greater than 15 minutes discussing postpone of DC with patient and SW, ultimately wants to leave, wrote rx for miquel Nausea 933811501 R11.0 continue prn compazine Idiopathic avascular necrosis of bone 4152522122 M87.852 avascular necrosis left femoral head on imaging was seen by ortho now with plan to f/u for replacemen t Abdominal aortic aneurysm 288880141 I71.43 followed by [facility] vascular Asthenia [id number] R53.1 improved Chronic ki dney disease stage 3A 443342415 N18.31 carrying dx with recent ARFPCP to follow labs Chronic ob structive pulmonary disease 28955285 J41.1 added to PMH History of malignant neoplasm of uterine body 754258050 Z85.42 added to PMH Gastroesop hageal reflux disease without esophagitis 723862362 K21.9 pantoprazo le 40 mg qd Essential hypertension 65675621 I10 metoprolol 50 mg bid Mixed hyperlipidemia 267 622698 E78.2 simvastati n 40 mg qdcontinue d Neurogenic urinary bladder 948902552 N31.8 abdi cath and care Sick sinus syndrome 3608 3008 I49.5 hx of with pacer in place [id number] Abby Razo NP [facility] [address] [place] [address] 04/08/2024 13:58:51 04/09/2024 13:16:49 Acute kidney injury 87959384 N17.8 hxlikely in setting of dehydratio n from diarrheacb c bmp weekly x 3 monitor Atrial fibrillation 4943 6007 I48.0 digoxin 125 mcg qodxarelto 20 mg qdmetoprol ol 50 mg bid Idiopathic avascular necrosis of bone 1529272330 M87.852 PT/OT eval and treatchole calciferol 25 mcg qdhydrocod one tyl q 6 hours prn painsuppor tive caremonito r Clostridiu m difficile colitis 175664668 A04.72 tested neg for cdif this admission, had it last admissions tools improving 1-2 per dayvanomyc in po for 2 more dosesmonit or for recurrent loose stool Abdominal aortic aneurysm 478564549 I71.43 [facility] vascularap pt with Dr Crook per pt coming upmonitor Asthenia [id number] R53.1 PT OT eval and treatmonit or fall risk and need for increased support in community Chronic ki dney disease stage 3A 371023247 N18.31 carrying dx with recent ARFmonitor renal functionav oid nephrotoxi c meds as ablenephro consult prn Chronic ob structive pulmonary disease 51023404 J41.1 albuterol prnmonitor History of malignant neoplasm of uterine body 626678762 Z85.42 hx of Gastroesop hageal reflux disease without esophagitis 159342714 K21.9 pantoprazo le 40 mg qdmonitor for sx relief Essential hypertension 10802351 I10 metoprolol 50 mg bidmonitor bp and need to titrate Mixed hyperlipidemia 267 676450 E78.2 simvastati n 40 mg qdcontinue d Neurogenic urinary bladder 994257316 N31.8 abdi cath and carechange monthly per regular regimenmon itor for s/s of infection Sick sinus syndrome 3608 3008 I49.5 hx of with pacer in place Iron defic iency anemia 79997001 D50.9 ferrous sulfate qdvit c qdmonitor labs Recurrent depression 191 096809 F32.A lexapro 10 mg po qdmonitorp sych prn Pneumonia 688138280 J18. 9 with sepsis pneumoniah ad course of ceftriaxon e in hospalb prnduoneb q 4 hours prnmonitor cbc and bmp weekly x 3 Recurrent falls 14973546 2 R29.6 pt with falls from home and very deconditio nedPT OT eval and treatsuppo rtive caremonito r [id number] Jonah Khan MD [address] [address] 04/13/2024 08:22:12 04/16/2024 10:05:52 Sepsis 48094573 A41.89 complete course of abxmonitor for recurrent infection Asthenia 02397332 R53.1 PT OT eval and treatmonit or fall risk and need for increased support in community Clostridiu m difficile colitis 545687357 A04.72 concern for sepsis secondary to c diff underwent treatment then question if colonized at [facility] for sxcomplete course of PO vanco Acute kidney injury 1466 9001 N17.8 ARF on CRFimprove d with IVFmonitor renal function Idiopathic avascular necrosis of bone 4143905448 M87.852 avascular necrosis left femoral head on imaging was seen by ortho now with plan to f/u for replacemen tcoordinat e care Abdominal aortic aneurysm 475162634 I71.43 followed by [facility] vascularad ded to PMH Atrial fibrillation 4943 6004 I48.0 xarelto 20 mg qdmetoprol ol 50 mg bidmonitor for rate control Chronic ki dney disease stage 3A 278382303 N18.31 carrying dx with recent ARFmonitor renal functionav oid nephrotoxi c meds as ablenephro consult prn Chronic ob structive pulmonary disease 26746581 J41.1 added to PMonitor utilizatio n of albuterol History of malignant neoplasm of uterine body 599970308 Z85.42 added to PMH Gastroesop hageal reflux disease without esophagitis 988229683 K21.9 pantoprazo le 40 mg qdmonitor for sx relief Essential hypertension 81391421 I10 metoprolol 50 mg bidmonitor bp and need to titrate Mixed hyperlipidemia 267 049616 E78.2 simvastati n 40 mg qdcontinue d Neurogenic urinary bladder 563770208 N31.8 abdi cath and care Sick sinus syndrome 3608 3008 I49.5 hx of with pacer in place [id number] DERIAN BEE NP [facility] [address] 04/17/2024 15:45:04 04/18/2024 14:24:58 Sepsis 20840066 A41.89 completed course of abxmonitor for recurrent infectionV SS, clinically stableChec k labs prn Idiopathic avascular necrosis of bone 7527378081 M87.852 avascular necrosis left femoral head on imaging was seen by ortho now with plan to f/u for replacemen tcoordinat e care with OrthoPT OT eval and tx. Asthenia 81331278 R53.1 PT OT eval and treatmonit or fall risk and need for increased support in community Clostridiu m difficile colitis 010323309 A04.72 concern for sepsis secondary to c diff underwent treatment then question if colonized at [facility] n[facility] for sxcomplete d course of PO vanco Acute kidney injury 1466 9001 N17.8 ARF on CRFimprove d with IVFmonitor renal function Abdominal aortic aneurysm 518072430 I71.43 followed by [facility] vascularad ded to PMH Atrial fibrillation 4943 6004 I48.0 xarelto 20 mg qdmetoprol ol 50 mg bidmonitor for rate control Chronic ki dney disease stage 3A 864399308 N18.31 carrying dx with recent ARFmonitor renal functionav oid nephrotoxi c meds as ablenephro consult prn Chronic ob structive pulmonary disease 20076572 J41.1 added to PMHmonitor utilizatio n of albuterol History of malignant neoplasm of uterine body 266074071 Z85.42 added to PMH Gastroesop hageal reflux disease without esophagitis 492652261 K21.9 pantoprazo le 40 mg qdmonitor for sx relief Essential hypertension 10373152 I10 metoprolol 50 mg bidmonitor bp and need to titrate Mixed hyperlipidemia 267 337761 E78.2 simvastati n 40 mg qdcontinue d Neurogenic urinary bladder 561694620 N31.8 abdi cath and carecontin ue methenamin e 1 gm qd for UTI proph. Sick sinus syndrome 3608 3008 I49.5 hx of with pacer in place [id number] DERIAN BEE NP [address] [address] 04/24/2024 10:46:51 04/26/2024 14:47:06 Sepsis 01984178 A41.89 resolved.c ompleted course of abxmonitor ing for recurrent infectionV SS, clinically stableChec k labs prn Idiopathic avascular necrosis of bone 5268335062 M87.852 avascular necrosis left femoral head on imaging was seen by ortho now with plan to f/u for replacemen tcoordinat e care with OrthoPT OT eval and tx.Monitor pain, [facility] Asthenia 75108064 R53.1 Continue PT OTmonitor fall risk and need for increased support in community Clostridiu m difficile colitis 329248508 A04.72 concern for sepsis secondary to c diff underwent treatment then question if colonized at [facility] n[facility] for sxcomplete d course of PO vanco Acute kidney injury 1466 9001 N17.8 ARF on CRFimprove d with IVFmonitor renal functionav oid nephrotoxi cs Abdominal aortic aneurysm 760580599 I71.43 followed by [facility] vascularad ded to PMH Atrial fibrillation 4943 6004 I48.0 Continue:x arelto 20 mg qdmetoprol ol 50 mg bidmonitor for rate control Chronic ki dney disease stage 3A 333933245 N18.31 carrying dx with recent ARFmonitor renal functionav oid nephrotoxi c meds as ablenephro consult prn Chronic ob structive pulmonary disease 48091558 J41.1 added to PMHmonitor utilizatio n of albuterol History of malignant neoplasm of uterine body 804181314 Z85.42 added to PMH Gastroesop hageal reflux disease without esophagitis 683110104 K21.9 pantoprazo le 40 mg qdmonitor for sx relief Essential hypertension 66936120 I10 continue metoprolol 50 mg bidmonitor bp and need to titrate Mixed hyperlipidemia 267 288534 E78.2 simvastati n 40 mg qdcontinue d Neurogenic urinary bladder 217683879 N31.8 Chronic - indwelling abdi cath x yrs.contin ue methenamin e 1 gm qd for UTI proph. Sick sinus syndrome 3608 3008 I49.5 hx of with pacer in place Insomnia 950264932 G47.0 9 Pt. requesting sleep aid - add melatonin 5 mg q HS prnMonitor use and effect. Cramp in lower limb 4499 54645 R25.2 In calves, comes and goes, gets some relief when legs moved and stretched. Already on Fe, vitamin/mi neral supplement s.Also on statin.Elle ck labs - CBC, BMP Mg FeContinue to monitor closelyCon transmission design engineer tonic water prnAdden dum - will add tizanidine 2 mg q hs prn for now - monitor use and effect. [id number] Abby Razo NP [address] [place] [address] 04/29/2024 12:34:25 05/01/2024 15:15:14 Sepsis 47155083 A41.89 resolved.c ompleted course of abx Insomnia 510797731 G47.0 9 while her melatonin addedcontm elatonin 5 mg q HS prnMonitor use and effect outpt with pcp Cramp in lower limb 4499 25810 R25.2 In calves, comes and goes, gets some relief when legs moved and stretched. resolvingA lready on Fe, vitamin/mi neral supplement s.Also on statin.add ed tizanidine 2 mg q hs prn here with effect will continue prnfu with pcp outpt Idiopathic avascular necrosis of bone 1365636112 M87.852 avascular necrosis left femoral head on imaging was seen by ortho now with plan to f/u for replacemen t=coordina te care with Ortho for future surgeryPT OT eval and tx. prn outptMonit or outpt with pcp and fu with ortho on 05/06hydroc odone/tyl 1 tab q 6 hours prn Asthenia 15366645 R53.1 Continue PT OTmonitor fall risk and need for increased support in community Clostridiu m difficile colitis 997448472 A04.72 resolvedco ncern for sepsis secondary to c diff underwent treatment then question if colonized at [facility] n[facility] for sxcomplete d course of PO vanco and symptomati c Acute kidney injury 1466 9001 N17.8 ARF resolvedAR F on CRFimprove d with IVFmonitor renal functionav oid nephrotoxi csfu with pcp Abdominal aortic aneurysm 120046684 I71.43 followed by [facility] vascular Atrial fibrillation 4943 6004 I48.0 Continue:x arelto 20 mg qdmetoprol ol 50 mg bidmonitor for rate controlfu with pcp Chronic ki dney disease stage 3A 555413561 N18.31 carrying dx with recent ARFmonitor renal functionav oid nephrotoxi c meds as ablenephro consult prnfu with pcp Chronic ob structive pulmonary disease 14611448 J41.1 hx ofmonitor utilizatio n of albuterolf u with pcp History of malignant neoplasm of uterine body 814371169 Z85.42 hx ofchronic foleyfu with pcp Gastroesop hageal reflux disease without esophagitis 258901454 K21.9 pantoprazo le 40 mg qdmonitor for sx relief wtih pcp outpt Essential hypertension 17577622 I10 continue metoprolol 50 mg bidmonitor bp and need to titrate outpt with pcp Mixed hyperlipidemia 267 855790 E78.2 simvastati n 40 mg qdcontinue d with pcp outpt Neurogenic urinary bladder 863893657 N31.8 Chronic - indwelling abdi cath x [...] [facility] MEDICARE PREFERRED (MEDICARE REPLACEMENT HMO) PRAKASH Jung [id number] Trupti Jung 04/13/2024 1 [facility] MEDICARE PREFERRED (MEDICARE REPLACEMENT HMO) PRAKASH Jung [id number] Trupti Jung 04/17/2024 1 [facility] MEDICARE PREFERRED (MEDICARE REPLACEMENT HMO) PRAKASH Jung [id number] Trupti Jung 04/24/2024 1 [facility] MEDICARE PREFERRED (MEDICARE REPLACEMENT HMO) PRAKASH Jung [id number] Trupti Jung 04/29/2024 1 [facility] MEDICARE PREFERRED (MEDICARE REPLACEMENT HMO) PRAKASH Jung [id number] Trupti Jung Notes Date Note Type Note Provider Name and Address Organization Details Recorded Time 04/08/2024 text/html Patient is a 73 yo female seen today for an initial intake visit. PMH significant for AAA follow by [facility] vascular, a fib, crf stage , copd, gerd, hx uterine ca,hld, htn, neurogenic bladder with abdi, SSS s/p pacer, avascualar necrosis of left hip Trupti is a 73 yo f here at [facility] for rehab post [facility] admission for recent hospitalization 02/27-03/03 for c diff sepsis and dc to rehab at [facility] one subsequently dc'd on 03/28/24. Since discharged from home she returned to the [facility] ER on 03/29/24- for progressively weak, persistent [...] high riskBIMS 15/15 Abby Razo NP [address] [facility] [address], [address], [place], [address], [facility] [employer] 04/08/2024 20:42:30 04/13/2024 text/html Patient is a [...] diff prophylaxis PMH significant forAAA follow by [facility] fibcrf stage 3copdgerdhx uterine cahldhtnneurogenic bladder with foleySSS s/p pacer admit to facility for continued care and therapy Jonah Khan MD [address] [facility] [address], [address], [place], [address], [facility] [facility] 04/13/2024 08:34:24 04/17/2024 text/html Trupti is [...] 3/3 stable. PMH significant forAAA follow by [facility] fibcrf stage 3copdgerdhx uterine cahldhtnneurogenic bladder with foleySSS s/p pacer admit to facility for continued care and therapy DERIAN BEE NP [address] [facility], [address], [place], [address], [facility] 04/17/2024 15:56:56 04/24/2024 text/html Trupti is [...] med changes. PMH significant forAAA follow by [facility] sadia fibcrf stage 3copdgerdhx uterine cahldhtnneurogenic bladder with foleySSS s/p pacer DERIAN BEE NP [address] [place] [address], [address], [place], [address], [facility] 04/24/2024 14:07:19 04/29/2024 text/html Trupti is see n today for a discharge visit. PMH significant for AAA follow by [facility] vascular, tejas fib, crf stage , [...] diff prophylaxis. She was admitted to to [facility] for rehab and care. Since here Trupti [...] pain and spasms. Abby Razo NP [address] [facility], [address], [place], [address], [facility] 05/01/2024 12:03:58 OBGyn Episode No OBEpisode recorded.
--- OUTSIDE RECORDS SUMMARY | 2024-05-31 14:27 | XMS_ITS | Encounter Summary ---
Author Organization [facility] Address [address] [place] [address] Phone Care Team Providers Care Network Operations Manager Name Role Phone Nick Bonner MD Primary Care Provider [phone] Encounter Details Date Type Department Care Team (Late Contact Info) Description 11/10/2021 Telephone [facility] [address] [place] [address] Inocente Martínez MD Social History [...] documented in this encounter Plan of Treatment Upcoming Encounters Date Type Department Care Team (Late st Contact Info) Description 06/05/2024 11:45 AM EDT Office Visit [facility] [address] [address] Ck Hunter MD [address] [phone] documented as of this encounter Visit Diagnoses Not on filedocumented in this encounter Care Teams Network Operations Manager Relationship Specialty Start Date End Date Nick Bonner MD [address] [place] [id number] PCP - General Internal Medicine 05/14/20 documented as of this encounter
--- OUTSIDE RECORDS SUMMARY | 2024-05-31 14:27 | XMS_ITS | Clinical Summary ---
Author Organization [facility] Address [address] [place] [address] Phone Care Team Providers Care Financial Administrative Assistant Name Role Phone Nick Bonner MD Primary Care Provider [phone] Allergies No known active allergies Medications ascorbic [...] mg by mouth daily 06/01/2020 Active pancrelipase, Mht-Axvy-Avie, (Creon) 5988-4555 units capsule TAKE 1 CAPSULE BY MOUTH [...] 11/11/2020 Sick sinus syndrome 07/08/2020 11/12/19 21 Encounters Date Type Department Care Team Description 05/24/2024 Office Communication [facility] [address] [address] Sanjuana Good from Last 3 Months Immunizations Immunization Administration Dates Next Due Moderna [...] 02/14/2019 12:00 PM EST Plan of Treatment Upcoming Encounters Date Type Department Care Team (Late st Contact Info) Description 06/05/2024 11:45 AM EDT [facility] Visit [facility] [address] [address] Ck Hunter MD [address] [address] Health Maintenance Due Date Last Done Comments Breast Cancer Screening 1950 Pneumococcal Vaccine: 50+ Ye ars (1 of 2 - PCV) 1968 Colorectal Cancer Screening: Annual FOBT 1998 Colorectal Cancer Screening: Colonoscopy 1998 Colorectal Cancer Screening: Sigmoidoscopy 1998 Influenza Vaccine (Season Ended) 2024 11/27/19 21 Hepatitis B Vaccine Aged Out No longe r eligible based on patient's age to complete this topic Insurance [facility] Care Teams Financial Administrative Assistant Relationship Specialty Start Date End Date Nick Bonner MD [address] [place], [place] [phone] PCP - General Internal Medicine 05/14/20
--- OUTSIDE RECORDS SUMMARY | 2024-05-31 14:27 | XMS_ITS | Clinical Summary ---
Author Organization [facility] Address [address] [place] [address] Care Team Providers Care Superintendent Pier Name Role Phone Elena Jacobo FLASH OVEN OPERATOR Primary Care Provider Allergies No known active allergies Medications PANTOprazole (PROTONIX) 40 MG EC tablet Take [...] Take 40 mg by mouth nightly. Active HYDROcodone-aceta minophen (NORCO) 7.5-325 mg tablet Take 1 tablet [...] 2 (two) times a day. Active Pancrelipase, Ris-Awbg-Dbzk, (Creon) 7922-[address] Particles Take 1 capsule by mouth 4 (four) times a day. Dose is in units of lipase. Active umeclidinium-jessica nterol (ANORO ELLIPTA) 62.5-25 MCG/INH inhaler Inhale 1 puff daily. Active Nutritional Supplements (ESTROVEN PO) Take 1 tablet by mouth every evening. Active diltiazem (CARDIZEM) 60 MG tabletIndications :Dyspnea,COPD exacerbation (HCC),Atrial fibrillation (HCC) Take 1 tablet (60 mg total) by mouth every 6 (six) hours around the clock. 120 tablet 1 Active predniSONE (DELTASONE) 10 MG (48) tablet packIndications:D yspnea,COPD exacerbation (HCC),Atrial fibrillation (HCC) Take by mouth See Admin Instructions . Take 60mg (6 tabs) for 3 days, then 50mg (5tabs) for 3 days ,then 40mg (4 tabs) for 3 days then stop 48 tablet 1 Active Active Problems Problem Noted Date Diagnosed [...] drink = 0.6 oz pur e alcohol) Comments No Sex and Gender Information Value Date Recorded Sex Assigned at Not on file Legal Sex Female 6:19 PM EST Gender Identity Not on file [...] this topic Medical Devices Implanted Type Area Want Ad Receiver Device Identifier Shelf Expiration Date Model / Serial / Lot Pacemaker Pacemaker Insurance [facility] OUT OF NETWORK [employer]GED MEDICARE Advance Directives * Full Code (Latest Code Status on File) Date Activated Date Inactivated Comments 12/11/2020 8:56 AM Care Teams Superintendent Pier Relationship Specialty Start Date End Date Elena Jacobo NP [address] [place] [address] PCP - General Adult Health - PA/APNP/FLASH OVEN OPERATOR/SUPERVISORY FORESTER 12/11/20
[2024-05-31 16:14] LABS: Appearance Urine Clear; Color Urine Yellow; Glucose Urine UA Negative (Negative); Leukocyte Esterase Urine Large (3+) (Negative); Nitrite Urine Negative (Negative); Specific Gravity - Urine <= 1.005 (1.005-1.025); UMIC TRIGGER UA YES; Urine Blood Small (1+) (Negative); Urine Ketones Negative (Negative); Urine Protein 30 (1+) mg/dL (Neg-Trace)
[2024-05-31 16:40] LABS: Bacteria Urine None Seen (None Seen); RBC Urine 0-2 /HPF (0-2)
== END 2024-05-31 11:01 | disposition home or self-care (01) ==
LOC: HO.HVNA 11:00
PROVIDERS: Nurse Practitioner Family; Visit Provider Urology
DX: N31.9 Neuromuscular dysfunction of bladder, unspecified (principal); N39.0 Urinary tract infection, site not specified; R10.9 Unspecified abdominal pain; R31.9 Hematuria, unspecified
CPT/HCPCS: 81001; 87086

== ENCOUNTER 2024-06-03 13:15 | Outpatient (REF) | payer MEDICARE, SELFPAY ==
[2024-06-03 13:18] LABS: MANUAL DIFF FLAG NO
[2024-06-03 13:25] LABS: Basophils Percent Auto 0.7 % (0-2); Eosinophils Absolute Auto 0.1 X10*3/uL (0.0-0.4); Eosinophils Percent Auto 1.5 % (0-4); Hematocrit 36.4 % (37.0-47.0); Hemoglobin 11.3 g/dl (12.0-16.0); Imm Gran Abs Auto 0.03 X10*3/uL (0.00-0.03); Imm Gran Pct Auto 0.5 % (0.0-0.4); Lymphocytes Absolute Auto 0.7 X10*3/uL (1.2-4.9); Mean Corpuscular Hemoglobin 27.1 pg (27.0-33.0); Mean Corpuscular Volume 87.3 fL (80.0-98.0); Mean Platelet Volume 9.9 fL (9.4-12.3); Monocytes Absolute Auto 0.4 X10*3/uL (0.1-1.2); Monocytes Percent Auto 6.7 % (2-11); Neutrophils Absolute Auto 4.8 x10*3/uL (2.0-8.3); Neutrophils Percent Auto 78.6 % (45-73); Platelet Count 236 X10*3/uL (160-400); Red Blood Count 4.17 X10*6/uL (4.20-5.50); Red Cell Distribution Width 16.3 % (11.0-16.0); White Blood Count 6.2 X10*3/uL (4.8-10.8)
[2024-06-03 14:03] LABS: Alanine Aminotransferase 11 U/L (0-31); Alkaline Phosphatase 97 U/L (39-117); Anion Gap 14 (12-20); Aspartate Amino Transferase 19 U/L (5-31); Bilirubin Total 0.1 mg/dL (0.0-1.0); Blood Urea Nitrogen 15 mg/dL (9-16); Calcium 8.2 mg/dL (8.4-10.2); Carbon Dioxide 22 mmol/L (22-29); Chloride 109 mmol/L (96-108); Estimated Glomerular Filt Rate > 60; Glucose Random 80 mg/dL (60-115); Potassium 4.3 mmol/L (3.3-5.1); Sodium 141 mmol/L (135-145); Total Protein 6.1 g/dL (6.5-8.0)
--- OUTSIDE RECORDS SUMMARY | 2024-06-03 15:44 | XMS_ITS | Clinical Summary ---
Author Organization [facility] Address [address] [place] [address] Phone Care Team Providers Care Returned Case Inspector Name Role Phone Nick Bonner MD Primary Care Provider [phone] Allergies No known active allergies Medications ascorbic [...] mg by mouth daily 06/01/2020 Active pancrelipase, Ajc-Drsd-Hubp, (Creon) 0093-7676 units capsule TAKE 1 CAPSULE BY MOUTH [...] Communication [facility] [address] [phone] Sanjuana Good from Last 3 Months Immunizations [...] Office Visit [facility] [address] [address] Ck Hunter MD [address] [address] Health Maintenance Due Date Last [...] patient's age to complete this topic Insurance [facility] Care Teams Returned Case Inspector Relationship Specialty Start Date End Date Nick Bonner MD [address] [place], [place] [phone] PCP - General Internal Medicine 05/14/20
--- OUTSIDE RECORDS SUMMARY | 2024-06-03 15:44 | XMS_ITS | Data Portability ---
Author Organization [facility] [employer] [facility], Main Office Address [address] [place] [address] Care Team Providers Care Flatwork Tier Name Role Phone PRITI SYLVESTER Primary Care [...] bone Active 2024 Ivanna Gutierrez MD [address], [address], [place], [address] , [facility] [employer] 5 18:57:44 Abdominal aortic aneurysm 329021737 Active 2024 Jonah Khan MD [address], [address], [place], [address] , [facility] [employer] 5 15:23:25 Atrial fibrillation 22028453 Active 2024 Jonah Khan MD [address], [address], [place], [address] , [facility] [employer] 5 15:24:30 Chronic kidney disease stage 3A 132012552 Active 2024 Jonah Khan MD [address], [address], [place], [address] , [facility] [employer] 5 15:24:38 Chronic obstructive pulmonary disease 86564144 Active 2024 Jonah Khan MD [address], [address], [place], [address] , [employer] [facility] 5 15:24:43 History of malignant neoplasm of uterine body 046095207 Active 2024 Jonah Khan MD [address], [address], [place], [address] , [employer] [facility] 5 15:24:52 Gastroesophag eal reflux disease without esophagitis 846216573 Active 2024 Jonah Khan MD [address], [place], [address] , [facility] [facility] 5 15:24:57 Essential hypertension 41100129 Active 2024 Jonah Khan MD [address], [address], [place], [address] , [facility] [facility] 5 15:25:03 Mixed hyperlipidemi a 690910241 Active 2024 Jonah Khan MD [address], [address], [place], [address] , [facility] 5 15:25:10 Neurogenic urinary bladder 797774705 Active 2024 Jonah Khan MD [address], [address], [place], [address] , [facility] 5 15:25:20 Sick sinus syndrome 90711529 Active 2024 Jonah Khan MD [address], [address], [place], [address] , [facility] [facility] 5 15:25:25 Osteonecrosis of hip 295392899 Active 2024 Not Available [facility] 5 08:55:23 Intestinal obstruction 42864573 Active 2024 Not Available [facility] 5 08:48:53 Recurrent bacterial infection 334028590 Active 2024 Not Available [facility] 5 08:49:58 Hypo-osmolali ty and or hyponatremia 326163778 Active 2024 Not Available [facility] 5 08:50:29 Muscle weakness 90174986 Active 2024 Not Available [facility] 5 08:51:14 Dysphagia 84343424 Active 2024 Not Available [facility] 5 08:51:44 Unsteady when standing 960879531 Active 2024 Not Available [facility] 5 08:52:15 Chronic kidney disease stage 3 987894532 Active 2024 Not Available [facility] 5 08:53:48 Abdominal aortic aneurysm without rupture 42177616 Active 2024 Not Available [facility] 5 08:54:19 Hyperlipidemi a 10761901 Active 2024 Not Available [facility] 5 08:54:20 Iron deficiency anemia 78662536 Active 2024 Not Available [facility] 5 12:58:42 Recurrent depression 747708986 Active 2024 Not Available [facility] 5 12:58:44 Pneumonia 794580546 Active 2024 Abby Razo NP [address], [address], [place], [address] , [facility] 5 20:37:34 Notes:Some problems listed i n Documents: #[id number], #[id number] could not be added to this patient's [...] Address Organization Details Last Updated DateTime 5 608434. 72 g 68 /min 18 /min 97.5 [degF] 96 % 96 % 121 mm[Hg] 82 mm[Hg] Abby Razo, GABBY [address], [address], [place], [address], [employer] [facility] 5 14:01:27 Date Recorded Heart rate Respiratory rate Body temperature Oxygen saturation Oxygen saturation in Arterial blood by Pulse oximetry Systolic blood pressure Diastolic blood pressure Provider Name and Address Organization Details Last Updated DateTime 5 96 /min 18 /min 98.5 [degF] 97 % 97 % 101 mm[Hg] 78 mm[Hg] DERIAN BEE NP [address], [address], [place], [address], [employer] [facility] 5 15:46:11 Date Recorded Heart rate Respiratory rate Body temperature Oxygen saturation Oxygen saturation in Arterial blood by Pulse oximetry Systolic blood pressure Diastolic blood pressure Provider Name and Address Organization Details Last Updated DateTime 5 94 /min 18 /min 97.6 [degF] 94 % 94 % 109 mm[Hg] 81 mm[Hg] DERIAN BEE NP [address], [address], [place], [address], [facility] [facility] 5 13:05:59 Date Recorded Body weight Heart rate Respiratory rate Body temperature Oxygen saturation Oxygen saturation in Arterial blood by Pulse oximetry Systolic blood pressure Diastolic blood pressure Provider Name and Address Organization Details Last Updated DateTime 5 88870.6 3 g 76 /min 18 /min 98.3 [degF] 96.99 % 96.99 % 128 mm[Hg] 70 mm[Hg] Abby Razo NP [address], [address], [place], [address], [facility] 5 12:35:40 Date Recorded Systolic blood pressure Diastolic blood pressure Provider Name and Address Organization Details Last Updated DateTime 04/13/2024 93 mm[Hg] 76 mm[Hg] Jonah Khan MD [address], [address], [place], [address], [facility] 04/13/2024 08:22:45 Social History Question Answer Notes LastModified by Organization Details LastModified Time Tobacco Smoking Status Never Smoker Jonah Khan MD [address], [place], [address], [facility] 03/12/2024 15:37:56 Do You Have An Advance Directive? No Information not available 03/12/2024 What Is Your Level Of Alcohol Consumption? None Information not available 03/12/2024 What Is Your Code Status? Full Code No Art Nutrition Information not available 04/08/2024 Where Do You Live? SingleLevelHouse Information not available 04/08/2024 Do You Have A Medical Power Of Nurse Sane? No Information not available 04/08/2024 What Was [...] SARS-COV-2 (COVID-19) vaccine, UNSPECIFIED 03/06/2020 dev Reyes [facility] 03/12/2024 15:19:00 SARS-COV-2 (COVID-19) vaccine, UNSPECIFIED 04/06/2020 dev Reyes [facility] 03/12/2024 15:19:19 SARS-COV-2 (COVID-19) vaccine, UNSPECIFIED 01/19/2021 dev Reyes [facility] 03/12/2024 15:19:30 SARS-COV-2 (COVID-19) vaccine, UNSPECIFIED 07/08/2021 dev Reyes [facility] 03/12/2024 15:19:37 Past Encounters Encounter ID Performer Location Encounter Start Date Encounter Closed Date Diagnosis/Indication Diagnosis SNOMED-CT Code Diagnosis ICD10 Code Diagnosis Note [id number] MD Syed Mclean at [facility] on [address] [place] [address] 03/12/2024 14:57:39 03/13/2024 09:59:50 Clostridium difficile colitis 681265651 A04.72 concern for sepsis secondary to c diff underwent treatment then question if colonized at [facility] for sxcomplete course of PO vanco Acute kidney injury 1466 9001 N17.8 ARF on CRFimprove d with IVFmonitor renal function Idiopathic avascular necrosis of bone 7747683940 M87.852 avascular necrosis left femoral head on imaging was seen by ortho now with plan to f/u for replacemen t Abdominal aortic aneurysm 064796603 I71.43 [facility]H Asthenia 18429093 R53.1 PT OT eval and treatmonit or fall risk and need for increased support in community Atrial fibrillation 4943 6004 I48.0 xarelto 20 mg qdmetoprol ol 50 mg bidmonitor for rate controlreq uired IV lopressor in hospital Chronic ki dney disease stage 3A 888327079 N18.31 carrying dx with recent ARFmonitor renal functionav oid nephrotoxi c meds as ablenephro consult prn Chronic ob structive pulmonary disease 56937689 J41.1 added to PMHmonitor utilizatio n of albuterol History of malignant neoplasm of uterine body 781475109 Z85.42 added to PMH Gastroesop hageal reflux disease without esophagitis 190660944 K21.9 pantoprazo le 40 mg qdmonitor for sx relief Essential hypertension 50928274 I10 metoprolol 50 mg bidmonitor bp and need to titrate Mixed hyperlipidemia 267 755140 E78.2 simvastati n 40 mg qdcontinue d Neurogenic urinary bladder 124685541 N31.8 abdi cath and care Sick sinus syndrome 3608 3008 I49.5 hx of with pacer in place [id number] LEESA Lynch at [facility] on [address] [place] [address] 03/19/2024 09:16:20 03/20/2024 09:36:50 Clostridium difficile colitis 825722955 A04.72 stools resolvedmo nitor for recurrent loose stool Acute kidney injury 1466 9001 N17.8 labs pending todaylast labs in range 21/0.60 Idiopathic avascular necrosis of bone 3133073806 M87.852 avascular necrosis left femoral head on imaging was seen by ortho now with plan to f/u for replacemen tcontinue PT OT see HPI Atrial fibrillation 4943 6004 I48.0 xarelto 20 mg qdmetoprol ol 50 mg bidrate controlled at 79 [id number] LEESA GUADARRAMA Syed at [facility] on [address] [place] [address] 03/22/2024 11:37:26 03/25/2024 11:02:46 Acute kidney injury 95582327 N17.8 stable for patientlas t labs in range 24/0.80enc ourage PO fluids Idiopathic avascular necrosis of bone 0214822318 M87.852 continue PTPt ambulated short distances up [...] ol 50 mg bidrate controlled at 79 [id number] LEESA Lynch at [facility] on [address] [place] [address] 03/27/2024 12:47:31 03/28/2024 13:18:07 Acute kidney injury 82034700 N17.8 no labs this week for some reason-add cbc bmp tomorrow 03/28 Atrial fibrillation 4943 6004 I48.0 see HPI- had nuclear stress test today, will follow up tomorrow with cardsconti nue amiodarone 125 mg every other day per cardsxarel to 20 mg qdmetoprol ol 50 mg bid Cough 19382470 R05.9 STAT chest xray two viewsadd cbc with bmp tomorrowsw ab for flu and covid nowmonitor resp status Nausea 850492558 R11.0 continue prn compazine and re-eval in 30 days [id number] LEESA Lynch at [facility] on [address] [place] [address] 03/28/2024 09:25:01 03/29/2024 13:23:38 Acute kidney injury 60142076 N17.8 labs pending today Atrial fibrillation 4943 6004 I48.0 see HPI- had nuclear stress test, follow up with cards tomorrowco ntinue amiodarone 125 mg every other day per cardsxarel to 20 mg qdmetoprol ol 50 mg bid Cough 09005519 R05.9 waiting on xray resultsif positive send home with miquel spent greater than 15 minutes discussing postpone of DC with patient and SW, ultimately wants to leave, wrote rx for miquel Nausea 008063194 R11.0 continue prn compazine Idiopathic avascular necrosis of bone 8630558995 M87.852 avascular necrosis left femoral head on imaging was seen by ortho now with plan to f/u for replacemen t Abdominal aortic aneurysm 360524726 I71.43 followed [facility] vascular Asthenia 05627238 R53.1 improved Chronic ki dney disease stage 3A 332934515 N18.31 carrying dx with recent ARFPCP to follow labs Chronic ob structive pulmonary disease 47116941 J41.1 added to PMH History of malignant neoplasm of uterine body 118673839 Z85.42 added to PMH Gastroesop hageal reflux disease without esophagitis 071997100 K21.9 pantoprazo le 40 mg qd Essential hypertension 47733030 I10 metoprolol 50 mg bid Mixed hyperlipidemia 267 975675 E78.2 simvastati n 40 mg qdcontinue d Neurogenic urinary bladder 167682497 N31.8 abdi cath and care Sick sinus syndrome 3608 3008 I49.5 hx of with pacer in place [id number] Abby Razo NP [facility] [address] [facility] [place] [address] 04/08/2024 13:58:51 04/09/2024 13:16:49 Acute kidney injury 47819290 N17.8 hxlikely in setting of dehydratio n from diarrheacb c bmp weekly x 3 monitor Atrial fibrillation 4943 6003 I48.0 digoxin 125 mcg qodxarelto 20 mg qdmetoprol ol 50 mg bid Idiopathic avascular necrosis of bone 8264808147 M87.852 PT/OT eval and treatchole calciferol 25 mcg qdhydrocod one tyl q 6 hours prn painsuppor tive caremonito r Clostridiu m difficile colitis 620635683 A04.72 tested neg for cdif this admission, had it last admissions tools improving 1-2 per dayvanomyc in po for 2 more dosesmonit or for recurrent loose stool Abdominal aortic aneurysm 775791664 I71.43 [facility] pt with Dr Crook per pt coming upmonitor Asthenia 82271896 R53.1 PT OT eval and treatmonit or fall risk and need for increased support in community Chronic ki dney disease stage 3A 850375059 N18.31 carrying dx with recent ARFmonitor renal functionav oid nephrotoxi c meds as ablenephro consult prn Chronic ob structive pulmonary disease 54163458 J41.1 albuterol prnmonitor History of malignant neoplasm of uterine body 952200301 Z85.42 hx of Gastroesop hageal reflux disease without esophagitis 761368755 K21.9 pantoprazo le 40 mg qdmonitor for sx relief Essential hypertension 33549469 I10 metoprolol 50 mg bidmonitor bp and need to titrate Mixed hyperlipidemia 267 272600 E78.2 simvastati n 40 mg qdcontinue d Neurogenic urinary bladder 950229317 N31.8 abdi cath and carechange monthly per regular regimenmon itor for s/s of infection Sick sinus syndrome 3608 3008 I49.5 hx of with pacer in place Iron defic iency anemia 66045786 D50.9 ferrous sulfate qdvit c qdmonitor labs Recurrent depression 191 544565 F32.A lexapro 10 mg po qdmonitorp sych prn Pneumonia 117268609 J18. 9 with sepsis pneumoniah ad course of ceftriaxon e in hospalb prnduoneb q 4 hours prnmonitor cbc and bmp weekly x 3 Recurrent falls 77704068 2 R29.6 pt with falls from home and very deconditio nedPT OT eval and treatsuppo rtive caremonito r [id number] Jonah Khan MD [facility] [address] 04/13/2024 08:22:12 04/16/2024 10:05:52 Sepsis 19829383 A41.89 complete course of abxmonitor for recurrent infection Asthenia 28368066 R53.1 PT OT eval and treatmonit or fall risk and need for increased support in community Clostridiu m difficile colitis 402544626 A04.72 concern for sepsis secondary to c diff underwent treatment then question if colonized at [facility] for sxcomplete course of PO vanco Acute kidney injury 1466 9001 N17.8 ARF on CRFimprove d with IVFmonitor renal function Idiopathic avascular necrosis of bone 8189075624 M87.852 avascular necrosis left femoral head on imaging was seen by ortho now with plan to f/u for replacemen tcoordinat e care Abdominal aortic aneurysm 778600262 I71.43 [facility] to PMH Atrial fibrillation 4943 6004 I48.0 xarelto 20 mg qdmetoprol ol 50 mg bidmonitor for rate control Chronic ki dney disease stage 3A 545016530 N18.31 carrying dx with recent ARFmonitor renal functionav oid nephrotoxi c meds as ablenephro consult prn Chronic ob structive pulmonary disease 49314448 J41.1 added to PMonitor utilizatio n of albuterol History of malignant neoplasm of uterine body 178236419 Z85.42 added to PMH Gastroesop hageal reflux disease without esophagitis 756200070 K21.9 pantoprazo le 40 mg qdmonitor for sx relief Essential hypertension 58185702 I10 metoprolol 50 mg bidmonitor bp and need to titrate Mixed hyperlipidemia 267 559030 E78.2 simvastati n 40 mg qdcontinue d Neurogenic urinary bladder 104998931 N31.8 abdi cath and care Sick sinus syndrome 3608 3008 I49.5 hx of with pacer in place [id number] DERIAN BEE NP [facility] [address] 04/17/2024 15:45:04 04/18/2024 14:24:58 Sepsis 00491463 A41.89 completed course of abxmonitor for recurrent infectionV SS, clinically stableChec k labs prn Idiopathic avascular necrosis of bone 0542925975 M87.852 avascular necrosis left femoral head on imaging was seen by ortho now with plan to f/u for replacemen tcoordinat e care with OrthoPT OT eval and tx. Asthenia 27848709 R53.1 PT OT eval and treatmonit or fall risk and need for increased support in community Clostridiu m difficile colitis 692137785 A04.72 concern for sepsis secondary to c diff underwent treatment then question if colonized at [facility] for sxcomplete d course of PO vanco Acute kidney injury 1466 9001 N17.8 ARF on CRFimprove d with IVFmonitor renal function Abdominal aortic aneurysm 970753398 I71.43 [facility] ded to PMH Atrial fibrillation 4943 6004 I48.0 xarelto 20 mg qdmetoprol ol 50 mg bidmonitor for rate control Chronic ki dney disease stage 3A 205292097 N18.31 carrying dx with recent ARFmonitor renal functionav oid nephrotoxi c meds as ablenephro consult prn Chronic ob structive pulmonary disease 20333638 J41.1 added to PMHmonitor utilizatio n of albuterol History of malignant neoplasm of uterine body 574206814 Z85.42 added to PMH Gastroesop hageal reflux disease without esophagitis 753506694 K21.9 pantoprazo le 40 mg qdmonitor for sx relief Essential hypertension 72152760 I10 metoprolol 50 mg bidmonitor bp and need to titrate Mixed hyperlipidemia 267 576310 E78.2 simvastati n 40 mg qdcontinue d Neurogenic urinary bladder 922351521 N31.8 abdi cath and carecontin ue methenamin e 1 gm qd for UTI proph. Sick sinus syndrome 3608 3008 I49.5 hx of with pacer in place [id number] DERIAN BEE NP [address] [address] 04/24/2024 10:46:51 04/26/2024 14:47:06 Sepsis 47676329 A41.89 resolved.c ompleted course of abxmonitor ing for recurrent infectionV SS, clinically stableChec k labs prn Idiopathic avascular necrosis of bone 5112483421 M87.852 avascular necrosis left femoral head on imaging was seen by ortho now with plan to f/u for replacemen tcoordinat e care with OrthoPT OT eval and tx.Monitor pain, [facility] Asthenia 51387275 R53.1 Continue PT OTmonitor fall risk and need for increased support in community Clostridiu m difficile colitis 137266576 A04.72 concern for sepsis secondary to c diff underwent treatment then question if colonized at [facility] for sxcomplete d course of PO vanco Acute kidney injury 1466 9001 N17.8 ARF on CRFimprove d with IVFmonitor renal functionav oid nephrotoxi cs Abdominal aortic aneurysm 643909432 I71.43 [facility] to PMH Atrial fibrillation 4943 6004 I48.0 Continue:x arelto 20 mg qdmetoprol ol 50 mg bidmonitor for rate control Chronic ki dney disease stage 3A 077345675 N18.31 carrying dx with recent ARFmonitor renal functionav oid nephrotoxi c meds as ablenephro consult prn Chronic ob structive pulmonary disease 17860913 J41.1 added to PMHmonitor utilizatio n of albuterol History of malignant neoplasm of uterine body 085703442 Z85.42 added to PMH Gastroesop hageal reflux disease without esophagitis 067888075 K21.9 pantoprazo le 40 mg qdmonitor for sx relief Essential hypertension 45457256 I10 continue metoprolol 50 mg bidmonitor bp and need to titrate Mixed hyperlipidemia 267 232682 E78.2 simvastati n 40 mg qdcontinue d Neurogenic urinary bladder 981503707 N31.8 Chronic - indwelling abdi cath x yrs.contin ue methenamin e 1 gm qd for UTI proph. Sick sinus syndrome 3608 3008 I49.5 hx of with pacer in place Insomnia 700716440 G47.0 9 Pt. requesting sleep aid - add melatonin 5 mg q HS prnMonitor use and effect. Cramp in lower limb 4499 66852 R25.2 In calves, comes and goes, gets some relief when legs moved and stretched. Already on Fe, vitamin/mi neral supplement s.Also on statin.Elle ck labs - CBC, BMP Mg FeContinue to monitor closelyCon echo vascular technologist tonic water prnAdden dum - will add tizanidine 2 mg q hs prn for now - monitor use and effect. [id number] Abby Razo NP [address] [place] [address] 04/29/2024 12:34:25 05/01/2024 15:15:14 Sepsis 65483201 A41.89 resolved.c ompleted course of abx Insomnia 240503260 G47.0 9 while her melatonin addedcontm elatonin 5 mg q HS prnMonitor use and effect outpt with pcp Cramp in lower limb 4499 96857 R25.2 In calves, comes and goes, gets some relief when legs moved and stretched. resolvingA lready on Fe, vitamin/mi neral supplement s.Also on statin.add ed tizanidine 2 mg q hs prn here with effect will continue prnfu with pcp outpt Idiopathic avascular necrosis of bone 9832155618 M87.852 avascular necrosis left femoral head on imaging was seen by ortho now with plan to f/u for replacemen t=coordina te care with Ortho for future surgeryPT OT eval and tx. prn outptMonit or outpt with pcp and fu with ortho on 05/06hydroc odone/tyl 1 tab q 6 hours prn Asthenia 98076742 R53.1 Continue PT OTmonitor fall risk and need for increased support in community Clostridiu m difficile colitis 294688312 A04.72 resolvedco ncern for sepsis secondary to c diff underwent treatment then question if colonized at [facility] for sxcomplete d course of PO vanco and symptomati c Acute kidney injury 1466 9001 N17.8 ARF resolvedAR F on CRFimprove d with IVFmonitor renal functionav oid nephrotoxi csfu with pcp Abdominal aortic aneurysm 392662532 I71.43 followed [facility] vascular Atrial fibrillation 4943 6004 I48.0 Continue:x arelto 20 mg qdmetoprol ol 50 mg bidmonitor for rate controlfu with pcp Chronic ki dney disease stage 3A 768861512 N18.31 carrying dx with recent ARFmonitor renal functionav oid nephrotoxi c meds as ablenephro consult prnfu with pcp Chronic ob structive pulmonary disease 71041634 J41.1 hx ofmonitor utilizatio n of albuterolf u with pcp History of malignant neoplasm of uterine body 436200672 Z85.42 hx ofchronic foleyfu with pcp Gastroesop hageal reflux disease without esophagitis 909041804 K21.9 pantoprazo le 40 mg qdmonitor for sx relief wtih pcp outpt Essential hypertension 43561498 I10 continue metoprolol 50 mg bidmonitor bp and need to titrate outpt with pcp Mixed hyperlipidemia 267 682779 E78.2 simvastati n 40 mg qdcontinue d with pcp outpt Neurogenic urinary bladder 526563482 N31.8 Chronic - indwelling abdi cath x [...] Ruiz Member ID Guarantor Name 04/08/2024 1 [facility] MEDICARE PREFERRED (MEDICARE REPLACEMENT HMO) PRAKASH Jung [id number] Trupti Jung 04/13/2024 1 [facility] MEDICARE PREFERRED (MEDICARE REPLACEMENT HMO) PRAKASH Jung [id number] Trupti Jung 04/17/2024 1 [facility] MEDICARE PREFERRED (MEDICARE REPLACEMENT HMO) PRAKASH Jung [id number] Trupti Jung 04/24/2024 1 [facility] MEDICARE PREFERRED (MEDICARE REPLACEMENT HMO) PRAKASH Jung [id number] Trupti Jung 04/29/2024 1 [facility] MEDICARE PREFERRED (MEDICARE REPLACEMENT HMO) PRAKASH Jung [id number] Trupti Jung Notes Date Note Type Note Provider Name and Address Organization Details Recorded Time 04/08/2024 text/html Patient is a 73 yo female seen today for an initial intake visit. PMH significant for AAA follow by [facility] vascular, a fib, crf stage , copd, gerd, hx uterine ca,hld, htn, neurogenic bladder with abdi, SSS s/p pacer, avascualar necrosis of left hip Trupti is a 73 yo f here at [facility] for rehab post [facility] admission for recent hospitalization 02/27-03/03 for c diff sepsis and dc to rehab at [facility] one subsequently dc'd on 03/28/24. Since discharged from home she returned to the [facility] ER on 03/29/24- for [...] high riskBIMS 15/15 Abby Razo NP [address], [address], [place], [address], [facility] [employer] 04/08/2024 20:42:30 04/13/2024 text/html Patient is a [...] diff prophylaxis PMH significant forAAA follow by [facility] fibcrf stage 3copdgerdhx uterine cahldhtnneurogenic bladder with foleySSS s/p pacer admit to facility for continued care and therapy Jonah Khan MD [address], [address], [place], [address], [facility] [employer] 04/13/2024 08:34:24 04/17/2024 text/html Trupti is [...] 3/3 stable. PMH significant forAAA follow by [facility] fibcrf stage 3copdgerdhx uterine cahldhtnneurogenic bladder with foleySSS s/p pacer admit to facility for continued care and therapy DERIAN BEE NP [address], [address], [place], [address], [facility] [employer] 04/17/2024 15:56:56 04/24/2024 text/html Trupti is [...] med changes. PMH significant forAAA follow by [facility] sadia fibcrf stage 3copdgerdhx uterine cahldhtnneurogenic bladder with foleySSS s/p pacer DERIAN BEE NP [address] [place] [address], [address], [place], [address], [facility] [employer] 04/24/2024 14:07:19 04/29/2024 text/html Trupti is see n today for a discharge visit. PMH significant for AAA follow by [facility] vascular, tejas fib, crf stage , [...] diff prophylaxis. She was admitted to to [facility] for rehab and care. Since here Trupti [...] pain and spasms. Abby Razo NP [address], [address], [place], [address], [facility] - [employer] 05/01/2024 12:03:58 OBGyn Episode No OBEpisode recorded.
--- OUTSIDE RECORDS SUMMARY | 2024-06-03 15:44 | XMS_ITS | Encounter Summary ---
Author Organization [facility] Address [address] [place] [address] Phone Care Team Providers Care Press Tender Star Signal Name Role Phone Nick Bonner MD Primary Care Provider [phone] Encounter Details Date Type Department Care Team (Late Contact Info) Description 11/10/2021 Telephone [facility] [address] [place] [address] Inocente Martínez MD Social History [...] Visit [facility] [address] [address] Ck Hunter MD [address] [phone] documented as of this encounter Visit Diagnoses Not on filedocumented in this encounter Care Teams Press Tender Star Signal Relationship Specialty Start Date End Date Nick Bonner MD [address] [place] [address] PCP - General Internal Medicine 05/14/20 documented as of this encounter
--- OUTSIDE RECORDS SUMMARY | 2024-06-03 15:44 | XMS_ITS | Clinical Summary ---
Author Organization [facility] Address [address] [place] [address] Care Team Providers Care Barrel Rifler Button Name Role Phone Elena Jacobo DERMATOLOGY SALES REPRESENTATIVE Primary Care Provider Allergies No known active [...] 2 (two) times a day. Active Pancrelipase, Jrd-Meiy-Eaqp, (Creon) 7669-[address] Particles Take 1 capsule [...] this topic Medical Devices Implanted Type Area White Shoe Ragger Device Identifier Shelf Expiration Date Model / Serial / Lot Pacemaker Pacemaker Insurance [facility] MED[facility] OUT OF NETWORK [employer] MANAGED MEDICARE Advance Directives * Full Code (Latest Code Status on File) Date Activated Date Inactivated Comments 12/11/2020 8:56 AM Care Teams Barrel Rifler Button Relationship Specialty Start Date End Date Elena Jacobo NP [address] [place] [address] PCP - General Adult Health - PA/APNP/DERMATOLOGY SALES REPRESENTATIVE/RETAIL DIRECTOR 12/11/20
== END 2024-06-03 13:16 | disposition home or self-care (01) ==
LOC: HO.LNP 13:15
PROVIDERS: Visit Provider Internal Medicine
DX: M25.562 Pain in left knee (principal); J44.9 Chronic obstructive pulmonary disease, unspecified; R73.01 Impaired fasting glucose; E87.5 Hyperkalemia
CPT/HCPCS: 80053; 85025

== ENCOUNTER 2024-06-05 12:40 | Outpatient (REF) | payer MEDICARE, SELFPAY ==
--- OUTSIDE RECORDS SUMMARY | 2024-06-05 13:56 | XMS_ITS | Clinical Summary ---
Author Organization [facility] Address [address] [place] [address] Care Team Providers Care Library Paraprofessional Name Role Phone Elena Jacobo BLENDING LINE ATTENDANT Primary Care Provider Allergies No known active [...] 2 (two) times a day. Active Pancrelipase, Wlw-Snuc-Nwia, (Creon) 1490-[address] Particles Take 1 capsule [...] this topic Medical Devices Implanted Type Area Director Trust Device Identifier Shelf Expiration Date Model / Serial / Lot Pacemaker Pacemaker Insurance [facility] MEDIC[facility] OUT OF NETWORK [employer] MANAGED MEDICARE Advance Directives * Full Code (Latest Code Status on File) Date Activated Date Inactivated Comments 12/11/2020 8:56 AM Care Teams Library Paraprofessional Relationship Specialty Start Date End Date Elena Jacobo NP [address] [place] [address] PCP - General Adult Health - PA/APNP/BLENDING LINE ATTENDANT/FIBERGLASS INSULATION INSTALLER 12/11/20
--- OUTSIDE RECORDS SUMMARY | 2024-06-05 13:56 | XMS_ITS | Encounter Summary ---
Author Organization [facility] Address [address] [place] [phone] Phone Care Team Providers Care Ui Software Engineer Name Role Phone Raffy Orona MD Primary Care Provider [phone] Encounter Details Date Type Department Care Team (Late st Contact Info) Description 06/05/2024 11:45 AM EDT Office Visit [facility] [address] [address] Ck Hunter MD [address] [phone] Hyperkalemia (Primary Dx); Chronic kidney disease, stage 2 (mild) Social History Tobacco Use Types Packs/Day Years Used Date Smoking Tobacco: Former Smokeless Tobacco: Former Comments:Smoking History Inf o:Every day Comments Unknown Sex and Gender Information Value Date Recorded Sex Assigned at Not on file Legal Sex Female 4:55 PM EST Gender Identity Not on file Sexual Orientation Not on file documented as of this encounter Last Filed Vital Signs Vital Sign Reading Time Taken Comments Blood Pressure 98/60 06/05/2024 11:50 AM EDT Pulse 88 06/05/2024 11:50 AM EDT Temperature - - Respiratory Rate - - Oxygen Saturation 98% 06/05/2024 11:50 AM EDT Inhaled Oxygen Concentration - - Weight 71.7 kg (158 lb) 06/05/2024 11:50 AM EDT Height - - Body Mass Index 27.12 02/14/2019 12:00 PM EST documented in this encounter Patient Instructions * Patient Instructions* Ck Hunter MD - 06/05/2024 11:45 AM EDT No NSAIDS - Do not take non-steroidal anti-inflammatory medications (NSAIDS) such as Ibuprofen (Advil, Motrin, etc), Naproxen (Aleve, etc), Celecoxib (Celebrex) or Ketoprofen. These common arthritis medications can cause permanent kidney damage or worsen your kidney damage. For mild occasional pain, Acetaminophen (Tylenol, etc) is safe for your kidneys. Sodium and Your CKD Diet: How to Spice Up Your Cooking What is sodium? Sodium is a mineral found naturally in foods and is the major part of table salt. What are the effects of eating too much sodium? When your kidneys are not healthy, extra sodium and fluid build up in your body. This can cause swollen ankles, puffiness, a rise in blood pressure, shortness of breath, and/or fluid around your heart and lungs. See the following table for suggestions on how to reduce sodium in your diet. LIMIT THE [AMOUNT OF... FOOD TO LIMIT BECAUSE OF THEIR HIGH SODIUM CONTENT ACCEPTABLE SUBSTITUTES SALT & SALT SEASONINGS Table salt Seasoning salt Garlic salt Onion salt Celery salt Lemon pepper Lite salt Meat tenderizer Bouillon cubes Flavor enhancers Fresh garlic, fresh onion, garlic powder, onion powder, black [pepper, lemon juice, low-sodium/salt-free seasoning blends, vinegar SALTY FOODS Barbecue sauce Steak sauce Soy sauce Teriaky sauce Oyster sauce Salted Snacks such as Crackers Potato chips [place] chips Pretzels Tortilla chips Nuts Popcorn [place] seeds Homemade or low- sodium sauces and salad dressings; Vinegar, dry mustard, unsalted popcorn, pretzels, tortilla or corn chips Cured Foods Ham Salt pork Rascon Sauerkraut Pickles, pickle relish Lox & Morton Olives Fresh beef, veal, pork, poultry, fish, eggs [place] MEATS Hot Dogs Cold cuts, deli meats Pastrami Sausage Corned beef Spam Low-salt deli meats PROCESSED FOODS Buttermilk Cheese Canned: Soups Tomato products Vegetable juices Canned vegetables Convenience Foods such as: TV Dinners Canned raviolis [place]alli Macaroni & Cheese Spaghetti Frozen prepared foods Fast foods Natural cheese (1-2 oz Per week) Homemade or moni,1- sodium soups, canned food without added salt Homemade casseroles without added salt, made with fresh or raw vegetables, fresh meat, javon, pasta, or unsalted canned vegetables Some salt or sodium is needed for body water balance. But when your kidneys lose the ability to control sodium and water balance, you may experience the following: thirst fluid gain high blood pressure discomfort during dialysis By using less sodium in your diet, you can control these problems. Hints to keep your sodium intake down Cook with herbs and spices instead of salt. (Refer to Spice Up Your Cooking section for further suggestions.) Read food labels and choose those foods low in sodium. Avoid salt substitutes and specialty low-sodium foods made with salt substitutes because they are high in potassium. When eating out, ask for meat or fish without salt. Ask for gravy or sauce on the side; these may contain large amounts of salt and should be used in small amounts . Limit use of canned, processed and frozen foods. Some information about reading labels Understanding the terms: Sodium Free - Only a trivial amount of sodium per serving. Very Low Sodium - 35 mg or less per serving. Low Sodium - 140 mg or less per serving. Reduced Sodium - Foods in which the level of sodium is reduced by 25%. Light or Lite in Sodium - Foods in which the sodium is reduced by at least 50% . Simple rule of thumb : If salt is listed in the first five ingredients, the item is probably too high in sodium to use. All food labels now have milligrams (mg) of sodium listed. Follow these steps when reading the sodiwn information on the label: 1. Know how much sodium you are allowed each day. Remember that there are 1000 milligrams (mg) in 1gram. For [id number], if your diet prescription is 2 grams of sodium , your limit is 2000 milligrams per day. Consider the sodium value or other food to be eaten during the day. 2. Look at the package label. Check the serving size. Nutrition values are expressed per nagi g. How does this compare to your total daily allowance? If the sodium level is 500 mg or more per serving, the item is not a good choice. 3. Compare labels of similar products. Select the lowest sodium level for the same serving size. How to Spice Up Your Cooking Giving up salt does not mean giving up flavor. Learn to season your food with herbs and spices. Be creative and experiment for a new and exciting flavor. What kinds of spices and herbs should I use instead of salt to add flavor? Try the following spices with the foods listed. Allspice: Use with beef, fish, beets, cabbage, canots, peas, fruit. Basil: Use with beef, pork, most vegetables. Presidio Garretson: Use with beef, pork, most vegetables. Ravi: Use with beef, pork, green beans, cauliflower, cabbage, beets, asparagus, and in dips and marinades. Cardamom: Use with fruit and in baked goods. Dean: Use with beef, chicken, pork, fish, green beans, carrots and in marinades. Dill: Use with beef, chicken, green beans, cabbage, carrots, peas and in dips. Dory: Use with beef, chicken, pork, green beans, cauliflower and eggplant. Marjoram: Use with beef, chicken, pork, green beans, cauliflower and eggplant. Jennifer: Use with chicken, pork, cauliflower, peas and in marinades. Thyme: Use with beef, chicken, pork, fish, green beans, beets and carrots. Dustin: Use with chicken, pork, eggplant and in dressing. Tarragon: Use with fish, chicken, asparagus, beets, cabbage, cauliflower and in marinades. Tips for cooking with herbs and spices Purchase spices and herbs in small amounts . When they sit on the shelf for years they lose their flavor. Use no more than ?? teaspoon of dried spice (?? of fresh) per pound of meat. Add ground spices to food about 15 minutes before the end of the cooking period. Add whole spices to food at least one hour before the end of the cooking period. Combine herbs with oil or butter, set for 30 minutes to bring out their flavor, then brush on foodswhile they cook, or brush meat with oil and sprinkle herbs one hour before coolcing. Crush dried herbs before adding to foods. Can I use salt substitutes? Caution! If you are told to limit potassium in your diet, be very cautious about using salt substitutes because most of them contain some form of potassium. Check with your doctor or dietitian beforeusing and salt substitute. [place] and create your own seasoning containing those spices that you like. If you would like to become a volunteer and find out more about what's happening where you live, contact your local [facility] Affiliate. Blood pressure monitoring education: Monitor home blood pressure values after sitting for 5 minutes with back and arm support. Keep a log. Bring your log and blood pressure cuff to your next visit. documented in this encounter Plan of Treatment Upcoming Encounters Date Type Department Care Team (Late st Contact Info) Description 11/21/2024 2:30 PM EDT Office Visit [facility] [address] [phone] Ck Hunter MD [address] [phone] Scheduled Orders Name Type Priority Associated Diagnoses Orde r Schedule Renal function panel Lab Routine Hyperkalemia Chronic kidney disease, stage 2 (mild) Expected: 06/05/2024, Expires: 07/05/2025 Miscellaneous Lab Test Lab Routine Hyperkalemia Chronic kidney disease, stage 2 (mild) Expected: 06/05/2024, Expires: 07/05/2025 CBC and differential Lab Routine Hyperkalemia Chronic kidney disease, stage 2 (mild) Expected: 06/05/2024, Expires: 07/05/2025 documented as of this encounter Visit Diagnoses Diagnosis Hyperkalemia- Primary Chronic kidney disease, stage 2 (mild) documented in this encounter Care Teams Ui Software Engineer Relationship Specialty Start Date End Date Raffy Orona MD [address] [place] [address] PCP - General Internal Medicine 06/05/24 documented as of this encounter
--- OUTSIDE RECORDS SUMMARY | 2024-06-05 13:56 | XMS_ITS | Encounter Summary ---
Author Organization [facility] Address [address] [place] [address] Phone Care Team Providers Care Surgical Technologist Name Role Phone Raffy Orona MD Primary Care Provider [phone] Encounter Details Date Type Department Care Team (Late st Contact Info) Description 11/10/2021 Telephone [facility] [address] [place] [address] Inocente Martínez MD Social History [...] Office Visit [facility] [address] [place] [address] Ck Hunter MD [address] [phone] documented as of this encounter Visit Diagnoses Not on filedocumented in this encounter Care Teams Surgical Technologist Relationship Specialty Start Date End Date Raffy Orona MD [address] [place] [address] PCP - General Internal Medicine 06/05/24 documented as of this encounter
--- OUTSIDE RECORDS SUMMARY | 2024-06-05 13:56 | XMS_ITS | Clinical Summary ---
Author Organization [facility] Address [address] [address] [place] [address] Phone Care Team Providers Care Sheet Metal Foreman Name Role Phone Raffy Orona MD Primary Care Provider [phone] Allergies No known active allergies Medications ascorbic [...] mg by mouth daily 06/01/2020 Active pancrelipase, Hjc-Kmrs-Vool, (Creon) 6489-0600 units capsule TAKE 1 CAPSULE BY MOUTH [...] Active Problems Problem Noted Date Diagnosed Date Hyperkalemia 06/05/2024 Chronic kidney disease, stage 2 (mild) Anemia 05/14/2020 Hypertensive heart and renal disease [...] Encounters Date Type Department Care Team Description 06/05/2024 11:45 AM EDT Office Visit [facility] [address] [place] [phone] Ck Hunter MD Hyperkalemia (Primary Dx); Chronic kidney disease, stage 2 (mild) 05/24/2024 Office Communication [facility] [place] [id number] [address] Sanjuana Good from Last 3 Months Immunizations [...] (158 lb) 06/05/2024 11:50 AM EDT Height 162.6 cm (5' 4 ) 02/14/2019 12:00 PM EST Body Mass Index 27.12 02/14/2019 12:00 PM EST Plan of Treatment Upcoming Encounters Date Type Department Care Team (Late st Contact Info) Description 11/21/2024 2:30 PM EDT Office Visit [facility] [address] [phone] Ck Hunter MD [address] [address] Health Maintenance Due Date Last Done Comments Breast Cancer Screening 1950 Pneumococcal Vaccine: 50+ Ye ars (1 of 2 - PCV) 1968 Colorectal Cancer Screening: Annual FOBT 1998 Colorectal Cancer Screening: Colonoscopy 1998 Colorectal Cancer Screening: Sigmoidoscopy 1998 Influenza Vaccine (Season Ended) 2024 11/27/19 21 Hepatitis B Vaccine Aged Out No longe r eligible based on patient's age to complete this topic Insurance [facility] Care Teams Sheet Metal Foreman Relationship Specialty Start Date End Date Raffy Orona MD [address] [place] [phone] PCP - General Internal Medicine 06/05/24
--- OUTSIDE RECORDS SUMMARY | 2024-06-05 13:56 | XMS_ITS | Data Portability ---
Author Organization [facility] Main Office Address [address] [place] [address] Care Team Providers Care [employer] Tender Name Role Phone PRITI SYLVESTER Primary [...] bone Active 2024 Ivanna Gutierrez MD [address] [facility] [facility], [address], [place], [address] , [facility] [employer] 5 18:57:44 Abdominal aortic aneurysm 812683601 Active 2024 Jonah Khan MD [address] [facility] [facility] [facility], [address], [place], [address] , [facility] [employer] 5 15:23:25 Atrial fibrillation 40093617 Active 2024 Jonah Khan MD [address] [facility], [address], [place], [address] , [facility] [employer] 5 15:24:30 Chronic kidney disease stage 3A 574188678 Active 2024 Jonah Khan MD [address] [facility] [facility] [facility], [address], [place], [address] , [facility] [employer] 5 15:24:38 Chronic obstructive pulmonary disease 54051428 Active 2024 Jonah Khan MD [address] [facility], [address], [place], [address] , [facility] 5 15:24:43 History of malignant neoplasm of uterine body 314951406 Active 2024 Jonah Khan MD [address], [address], [place], [address] , [facility] 5 15:24:52 Gastroesophag eal reflux disease without esophagitis 738836238 Active 2024 Jonah Khan MD [address], [place], [address] , [facility] 5 15:24:57 Essential hypertension 67393782 Active 2024 Jonah Khan MD [address] [facility], [address], [place], [address] , [facility] 5 15:25:03 Mixed hyperlipidemi a 237452888 Active 2024 Jonah Khan MD [address] [facility] [facility], [address], [place], [address] , [facility] 5 15:25:10 Neurogenic urinary bladder 543638149 Active 2024 Jonah Khan MD [address] [facility] [facility], [address], [place], [address] , [facility] 5 15:25:20 Sick sinus syndrome 65235213 Active 2024 Jonah Khan MD [address] [facility] [facility], [address], [place], [address] , [facility] 5 15:25:25 Osteonecrosis of hip 733597574 Active 2024 Not Available [facility] 5 08:55:23 Intestinal obstruction 02609595 Active 2024 Not Available [facility] 5 08:48:53 Recurrent bacterial infection 930797172 Active 2024 Not Available [facility] 5 08:49:58 Hypo-osmolali ty and or hyponatremia 810565471 Active 2024 Not Available [facility] 5 08:50:29 Muscle weakness 05463756 Active 2024 Not Available [facility] 5 08:51:14 Dysphagia 58003637 Active 2024 Not Available [facility] 5 08:51:44 Unsteady when standing 189975806 Active 2024 Not Available [facility] 5 08:52:15 Chronic kidney disease stage 3 377572855 Active 2024 Not Available [facility] 5 08:53:48 Abdominal aortic aneurysm without rupture 70227485 Active 2024 Not Available [facility] 5 08:54:19 Hyperlipidemi a 58394266 Active 2024 Not Available [facility] 5 08:54:20 Iron deficiency anemia 05250220 Active 2024 Not Available [facility] 5 12:58:42 Recurrent depression 999966884 Active 2024 Not Available [facility] 5 12:58:44 Pneumonia 154248582 Active 2024 Abby Razo NP [address] [facility] [facility], [address], [place], [address] , [facility] 5 20:37:34 Notes:Some problems listed i n Documents: #[id number], #[id number] could not be added to this patient's [...] Address Organization Details Last Updated DateTime 5 937671. 72 g 68 /min 18 /min 97.5 [degF] 96 % 96 % 121 mm[Hg] 82 mm[Hg] Abby Razo, GABBY [address] [facility] [facility], [address], [place], [address], [facility] 5 14:01:27 Date Recorded Heart rate Respiratory rate Body temperature Oxygen saturation Oxygen saturation in Arterial blood by Pulse oximetry Systolic blood pressure Diastolic blood pressure Provider Name and Address Organization Details Last Updated DateTime 5 96 /min 18 /min 98.5 [degF] 97 % 97 % 101 mm[Hg] 78 mm[Hg] DERIAN BEE NP [address] [facility] [facility] [facility], [address], [place], [address], [facility] 5 15:46:11 Date Recorded Heart rate Respiratory rate Body temperature Oxygen saturation Oxygen saturation in Arterial blood by Pulse oximetry Systolic blood pressure Diastolic blood pressure Provider Name and Address Organization Details Last Updated DateTime 5 94 /min 18 /min 97.6 [degF] 94 % 94 % 109 mm[Hg] 81 mm[Hg] DERIAN BEE NP [address] [facility] [facility], [address], [place], [address], [facility] 5 13:05:59 Date Recorded Body weight Heart rate Respiratory rate Body temperature Oxygen saturation Oxygen saturation in Arterial blood by Pulse oximetry Systolic blood pressure Diastolic blood pressure Provider Name and Address Organization Details Last Updated DateTime 5 61289.6 3 g 76 /min 18 /min 98.3 [degF] 96.99 % 96.99 % 128 mm[Hg] 70 mm[Hg] Abby Razo NP [address] [facility] [facility], [address], [place], [address], [facility] 5 12:35:40 Date Recorded Systolic blood pressure Diastolic blood pressure Provider Name and Address Organization Details Last Updated DateTime 04/13/2024 93 mm[Hg] 76 mm[Hg] Jonah Khan MD [address], [address], [place], [address], [facility] 04/13/2024 08:22:45 Social History Question Answer Notes LastModified by Organization Details LastModified Time Tobacco Smoking Status Never Smoker Jonah Khan MD [address], [place], [address], [facility] 03/12/2024 15:37:56 Do You Have An Advance Directive? No Information not available 03/12/2024 What Is Your Level Of Alcohol Consumption? None Information not available 03/12/2024 What Is Your Code Status? Full Code No Art Nutrition Information not available 04/08/2024 Where Do You Live? SingleLevelHouse Information not available 04/08/2024 Do You Have A Medical Power Of Supervisor Unloading? No Information not available 04/08/2024 What Was [...] SARS-COV-2 (COVID-19) vaccine, UNSPECIFIED 03/06/2020 [facility] 03/12/2024 15:19:00 SARS-COV-2 (COVID-19) vaccine, UNSPECIFIED 04/06/2020 [facility] 03/12/2024 15:19:19 SARS-COV-2 (COVID-19) vaccine, UNSPECIFIED 01/19/2021 dev [facility] 03/12/2024 15:19:30 SARS-COV-2 (COVID-19) vaccine, UNSPECIFIED 07/08/2021 dev [facility] 03/12/2024 15:19:37 Past Encounters Encounter ID Performer Location Encounter Start Date Encounter Closed Date Diagnosis/Indication Diagnosis SNOMED-CT Code Diagnosis ICD10 Code Diagnosis Note [id number] MD Syed Mclean at [facility] on [address] [place] [address] 03/12/2024 14:57:39 03/13/2024 09:59:50 Clostridium difficile colitis 498723787 A04.72 concern for sepsis secondary to c diff underwent treatment then question if colonized at [facility] for sxcomplete course of PO vanco Acute kidney injury 1466 9001 N17.8 ARF on CRFimprove d with IVFmonitor renal function Idiopathic avascular necrosis of bone 7626981538 M87.852 avascular necrosis left femoral head on imaging was seen by ortho now with plan to f/u for replacemen t Abdominal aortic aneurysm 758269380 I71.43 [facility]H Asthenia 33794789 R53.1 PT OT eval and treatmonit or fall risk and need for increased support in community Atrial fibrillation 4943 6004 I48.0 xarelto 20 mg qdmetoprol ol 50 mg bidmonitor for rate controlreq uired IV lopressor in hospital Chronic ki dney disease stage 3A 502787567 N18.31 carrying dx with recent ARFmonitor renal functionav oid nephrotoxi c meds as ablenephro consult prn Chronic ob structive pulmonary disease 01626891 J41.1 added to PMHmonitor utilizatio n of albuterol History of malignant neoplasm of uterine body 889923251 Z85.42 added to PMH Gastroesop hageal reflux disease without esophagitis 154250157 K21.9 pantoprazo le 40 mg qdmonitor for sx relief Essential hypertension 67163222 I10 metoprolol 50 mg bidmonitor bp and need to titrate Mixed hyperlipidemia 267 580395 E78.2 simvastati n 40 mg qdcontinue d Neurogenic urinary bladder 479787777 N31.8 abdi cath and care Sick sinus syndrome 3608 3008 I49.5 hx of with pacer in place [id number] LEESA Lynch at [facility] on [address] [place] [address] 03/19/2024 09:16:20 03/20/2024 09:36:50 Clostridium difficile colitis 008785605 A04.72 stools resolvedmo nitor for recurrent loose stool Acute kidney injury 1466 9001 N17.8 labs pending todaylast labs in range 21/0.60 Idiopathic avascular necrosis of bone 8190136111 M87.852 avascular necrosis left femoral head on imaging was seen by ortho now with plan to f/u for replacemen tcontinue PT OT see HPI Atrial fibrillation 4943 6004 I48.0 xarelto 20 mg qdmetoprol ol 50 mg bidrate controlled at 79 [id number] LEESA GUADARRAMA Syed at [facility] on [address] [place] [address] 03/22/2024 11:37:26 03/25/2024 11:02:46 Acute kidney injury 49180391 N17.8 stable for patientlas t labs in range 24/0.80enc ourage PO fluids Idiopathic avascular necrosis of bone 9280777229 M87.852 continue PTPt ambulated short distances up to 30' within room x4 trials, RW, SBA with cues for improved [id number] 30: Car transfer scheduled for this date [...] ol 50 mg bidrate controlled at 79 [id number] LEESA Lynch at [facility] on [address] [place] [address] 03/27/2024 12:47:31 03/28/2024 13:18:07 Acute kidney injury 46584529 N17.8 no labs this week for some reason-add cbc bmp tomorrow 03/28 Atrial fibrillation 4943 6004 I48.0 see HPI- had nuclear stress test today, will follow up tomorrow with cardsconti nue amiodarone 125 mg every other day per cardsxarel to 20 mg qdmetoprol ol 50 mg bid Cough 39783489 R05.9 STAT chest xray two viewsadd cbc with bmp tomorrowsw ab for flu and covid nowmonitor resp status Nausea 196666615 R11.0 continue prn compazine and re-eval in 30 days [id number] LEESA Lynch at [facility] on [address] [place] [address] 03/28/2024 09:25:01 03/29/2024 13:23:38 Acute kidney injury 64333943 N17.8 labs pending today Atrial fibrillation 4943 6004 I48.0 see HPI- had nuclear stress test, follow up with cards tomorrowco ntinue amiodarone 125 mg every other day per cardsxarel to 20 mg qdmetoprol ol 50 mg bid Cough 59837455 R05.9 waiting on xray resultsif positive send home with miquel spent greater than 15 minutes discussing postpone of DC with patient and SW, ultimately wants to leave, wrote rx for miquel Nausea 482908420 R11.0 continue prn compazine Idiopathic avascular necrosis of bone 7095314803 M87.852 avascular necrosis left femoral head on imaging was seen by ortho now with plan to f/u for replacemen t Abdominal aortic aneurysm 569608303 I71.43 followed by [facility] vascular Asthenia 97212630 R53.1 improved Chronic ki dney disease stage 3A 126620871 N18.31 carrying dx with recent ARFPCP to follow labs Chronic ob structive pulmonary disease 09217566 J41.1 added to PMH History of malignant neoplasm of uterine body 177318040 Z85.42 added to PMH Gastroesop hageal reflux disease without esophagitis 012499856 K21.9 pantoprazo le 40 mg qd Essential hypertension 57465205 I10 metoprolol 50 mg bid Mixed hyperlipidemia 267 981554 E78.2 simvastati n 40 mg qdcontinue d Neurogenic urinary bladder 888036989 N31.8 abdi cath and care Sick sinus syndrome 3608 3008 I49.5 hx of with pacer in place [id number] Abby Razo NP [facility] [address] [facility] [place] [address] 04/08/2024 13:58:51 04/09/2024 13:16:49 Acute kidney injury 27729433 N17.8 hxlikely in setting of dehydratio n from diarrheacb c bmp weekly x 3 monitor Atrial fibrillation 4943 6002 I48.0 digoxin 125 mcg qodxarelto 20 mg qdmetoprol ol 50 mg bid Idiopathic avascular necrosis of bone 0039023524 M87.852 PT/OT eval and treatchole calciferol 25 mcg qdhydrocod one tyl q 6 hours prn painsuppor tive caremonito r Clostridiu m difficile colitis 002856951 A04.72 tested neg for cdif this admission, had it last admissions tools improving 1-2 per dayvanomyc in po for 2 more dosesmonit or for recurrent loose stool Abdominal aortic aneurysm 820247474 I71.43 [facility] pt with Dr Crook per pt coming upmonitor Asthenia 96873343 R53.1 PT OT eval and treatmonit or fall risk and need for increased support in community Chronic ki dney disease stage 3A 674619948 N18.31 carrying dx with recent ARFmonitor renal functionav oid nephrotoxi c meds as ablenephro consult prn Chronic ob structive pulmonary disease 69899033 J41.1 albuterol prnmonitor History of malignant neoplasm of uterine body 939771906 Z85.42 hx of Gastroesop hageal reflux disease without esophagitis 229984808 K21.9 pantoprazo le 40 mg qdmonitor for sx relief Essential hypertension 77730647 I10 metoprolol 50 mg bidmonitor bp and need to titrate Mixed hyperlipidemia 267 008468 E78.2 simvastati n 40 mg qdcontinue d Neurogenic urinary bladder 560099341 N31.8 abdi cath and carechange monthly per regular regimenmon itor for s/s of infection Sick sinus syndrome 3608 3008 I49.5 hx of with pacer in place Iron defic iency anemia 51726190 D50.9 ferrous sulfate qdvit c qdmonitor labs Recurrent depression 191 905355 F32.A lexapro 10 mg po qdmonitorp sych prn Pneumonia 289666056 J18. 9 with sepsis pneumoniah ad course of ceftriaxon e in hospalb prnduoneb q 4 hours prnmonitor cbc and bmp weekly x 3 Recurrent falls 35838270 2 R29.6 pt with falls from home and very deconditio nedPT OT eval and treatsuppo rtive caremonito r [id number] Jonah Khan MD [address] [address] 04/13/2024 08:22:12 04/16/2024 10:05:52 Sepsis 05461039 A41.89 complete course of abxmonitor for recurrent infection Asthenia 92895357 R53.1 PT OT eval and treatmonit or fall risk and need for increased support in community Clostridiu m difficile colitis 097371428 A04.72 concern for sepsis secondary to c diff underwent treatment then question if colonized at [facility] for sxcomplete course of PO vanco Acute kidney injury 1466 9001 N17.8 ARF on CRFimprove d with IVFmonitor renal function Idiopathic avascular necrosis of bone 7529203486 M87.852 avascular necrosis left femoral head on imaging was seen by ortho now with plan to f/u for replacemen tcoordinat e care Abdominal aortic aneurysm 356351956 I71.43 [facility] ded to PMH Atrial fibrillation 4943 6004 I48.0 xarelto 20 mg qdmetoprol ol 50 mg bidmonitor for rate control Chronic ki dney disease stage 3A 561991315 N18.31 carrying dx with recent ARFmonitor renal functionav oid nephrotoxi c meds as ablenephro consult prn Chronic ob structive pulmonary disease 73138065 J41.1 added to PMonitor utilizatio n of albuterol History of malignant neoplasm of uterine body 460784499 Z85.42 added to PMH Gastroesop hageal reflux disease without esophagitis 410383530 K21.9 pantoprazo le 40 mg qdmonitor for sx relief Essential hypertension 52419571 I10 metoprolol 50 mg bidmonitor bp and need to titrate Mixed hyperlipidemia 267 414784 E78.2 simvastati n 40 mg qdcontinue d Neurogenic urinary bladder 269769291 N31.8 abdi cath and care Sick sinus syndrome 3608 3008 I49.5 hx of with pacer in place [id number] DERIAN BEE NP [address] [address] 04/17/2024 15:45:04 04/18/2024 14:24:58 Sepsis 55241104 A41.89 completed course of abxmonitor for recurrent infectionV SS, clinically stableChec k labs prn Idiopathic avascular necrosis of bone 6581971936 M87.852 avascular necrosis left femoral head on imaging was seen by ortho now with plan to f/u for replacemen tcoordinat e care with OrthoPT OT eval and tx. Asthenia 21070340 R53.1 PT OT eval and treatmonit or fall risk and need for increased support in community Clostridiu m difficile colitis 389742987 A04.72 concern for sepsis secondary to c diff underwent treatment then question if colonized at [facility] for sxcomplete d course of PO vanco Acute kidney injury 1466 9001 N17.8 ARF on CRFimprove d with IVFmonitor renal function Abdominal aortic aneurysm 661957650 I71.43 [facility] ded to PMH Atrial fibrillation 4943 6004 I48.0 xarelto 20 mg qdmetoprol ol 50 mg bidmonitor for rate control Chronic ki dney disease stage 3A 850791298 N18.31 carrying dx with recent ARFmonitor renal functionav oid nephrotoxi c meds as ablenephro consult prn Chronic ob structive pulmonary disease 54455682 J41.1 added to PMHmonitor utilizatio n of albuterol History of malignant neoplasm of uterine body 317830054 Z85.42 added to PMH Gastroesop hageal reflux disease without esophagitis 806960254 K21.9 pantoprazo le 40 mg qdmonitor for sx relief Essential hypertension 51048730 I10 metoprolol 50 mg bidmonitor bp and need to titrate Mixed hyperlipidemia 267 785354 E78.2 simvastati n 40 mg qdcontinue d Neurogenic urinary bladder 629705749 N31.8 abdi cath and carecontin ue methenamin e 1 gm qd for UTI proph. Sick sinus syndrome 3608 3008 I49.5 hx of with pacer in place [id number] DERIAN BEE NP [address] [address] 04/24/2024 10:46:51 04/26/2024 14:47:06 Sepsis 13537870 A41.89 resolved.c ompleted course of abxmonitor ing for recurrent infectionV SS, clinically stableChec k labs prn Idiopathic avascular necrosis of bone 9298920529 M87.852 avascular necrosis left femoral head on imaging was seen by ortho now with plan to f/u for replacemen tcoordinat e care with OrthoPT OT eval and tx.Monitor pain, [facility] Asthenia 55075083 R53.1 Continue PT OTmonitor fall risk and need for increased support in community Clostridiu m difficile colitis 074544008 A04.72 concern for sepsis secondary to c diff underwent treatment then question if colonized at [facility] for sxcomplete d course of PO vanco Acute kidney injury 1466 9001 N17.8 ARF on CRFimprove d with IVFmonitor renal functionav oid nephrotoxi cs Abdominal aortic aneurysm 427429270 I71.43 [facility] ded to PMH Atrial fibrillation 4943 6004 I48.0 Continue:x arelto 20 mg qdmetoprol ol 50 mg bidmonitor for rate control Chronic ki dney disease stage 3A 610379020 N18.31 carrying dx with recent ARFmonitor renal functionav oid nephrotoxi c meds as ablenephro consult prn Chronic ob structive pulmonary disease 65355246 J41.1 added to PMHmonitor utilizatio n of albuterol History of malignant neoplasm of uterine body 026268995 Z85.42 added to PMH Gastroesop hageal reflux disease without esophagitis 842023145 K21.9 pantoprazo le 40 mg qdmonitor for sx relief Essential hypertension 05236568 I10 continue metoprolol 50 mg bidmonitor bp and need to titrate Mixed hyperlipidemia 267 016728 E78.2 simvastati n 40 mg qdcontinue d Neurogenic urinary bladder 926114823 N31.8 Chronic - indwelling abdi cath x yrs.contin ue methenamin e 1 gm qd for UTI proph. Sick sinus syndrome 3608 3008 I49.5 hx of with pacer in place Insomnia 489806268 G47.0 9 Pt. requesting sleep aid - add melatonin 5 mg q HS prnMonitor use and effect. Cramp in lower limb 4499 27735 R25.2 In calves, comes and goes, gets some relief when legs moved and stretched. Already on Fe, vitamin/mi neral supplement s.Also on statin.Elle ck labs - CBC, BMP Mg FeContinue to monitor closelyCon manager of supply chain tonic water prnAdden dum - will add tizanidine 2 mg q hs prn for now - monitor use and effect. [id number] Abby Razo NP [address] [place] [address] 04/29/2024 12:34:25 05/01/2024 15:15:14 Sepsis 94063332 A41.89 resolved.c ompleted course of abx Insomnia 278309355 G47.0 9 while her melatonin addedcontm elatonin 5 mg q HS prnMonitor use and effect outpt with pcp Cramp in lower limb 4499 14066 R25.2 In calves, comes and goes, gets some relief when legs moved and stretched. resolvingA lready on Fe, vitamin/mi neral supplement s.Also on statin.add ed tizanidine 2 mg q hs prn here with effect will continue prnfu with pcp outpt Idiopathic avascular necrosis of bone 9437177428 M87.852 avascular necrosis left femoral head on imaging was seen by ortho now with plan to f/u for replacemen t=coordina te care with Ortho for future surgeryPT OT eval and tx. prn outptMonit or outpt with pcp and fu with ortho on 05/06hydroc odone/tyl 1 tab q 6 hours prn Asthenia 71524585 R53.1 Continue PT OTmonitor fall risk and need for increased support in community Clostridiu m difficile colitis 471506626 A04.72 resolvedco ncern for sepsis secondary to c diff underwent treatment then question if colonized at [facility] for sxcomplete d course of PO vanco and symptomati c Acute kidney injury 1466 9001 N17.8 ARF resolvedAR F on CRFimprove d with IVFmonitor renal functionav oid nephrotoxi csfu with pcp Abdominal aortic aneurysm 881435264 I71.43 followed by [facility] vascular Atrial fibrillation 4943 6004 I48.0 Continue:x arelto 20 mg qdmetoprol ol 50 mg bidmonitor for rate controlfu with pcp Chronic ki dney disease stage 3A 482889557 N18.31 carrying dx with recent ARFmonitor renal functionav oid nephrotoxi c meds as ablenephro consult prnfu with pcp Chronic ob structive pulmonary disease 26300389 J41.1 hx ofmonitor utilizatio n of albuterolf u with pcp History of malignant neoplasm of uterine body 383000000 Z85.42 hx ofchronic foleyfu with pcp Gastroesop hageal reflux disease without esophagitis 898800175 K21.9 pantoprazo le 40 mg qdmonitor for sx relief wtih pcp outpt Essential hypertension 74818799 I10 continue metoprolol 50 mg bidmonitor bp and need to titrate outpt with pcp Mixed hyperlipidemia 267 846591 E78.2 simvastati n 40 mg qdcontinue d with pcp outpt Neurogenic urinary bladder 068626660 N31.8 Chronic - indwelling abdi cath x [...] Ruiz Member ID Guarantor Name 04/08/[address] [facility] MEDICARE PREFERRED (MEDICARE REPLACEMENT HMO) PRAKASH Jung [id number] Trupti Jung 04/13/[address] [facility] MEDICARE PREFERRED (MEDICARE REPLACEMENT HMO) PRAKASH Jung [id number] Trupti Jung 04/17/[address] [facility] MEDICARE PREFERRED (MEDICARE REPLACEMENT HMO) PRAKASH Jung [id number] Trupti Jung 04/24/[address] [facility] MEDICARE PREFERRED (MEDICARE REPLACEMENT HMO) PRAKASH Jung [id number] Trupti Jung 04/29/[address] [facility] MEDICARE PREFERRED (MEDICARE REPLACEMENT HMO) PRAKASH Jung [id number] Trupti Jung Notes Date Note Type Note Provider Name and Address Organization Details Recorded Time 04/08/2024 text/html Patient is a 73 yo female seen today for an initial intake visit. PMH significant for AAA follow by [facility] vascular, a fib, crf stage , copd, gerd, hx uterine ca,hld, htn, neurogenic bladder with abdi, SSS s/p pacer, avascualar necrosis of left hip Trupti is a 73 yo f here at [facility] for rehab post [facility] admission for recent hospitalization 02/27-03/03 for c diff sepsis and dc to rehab at [facility] one subsequently dc'd on 03/28/24. Since discharged from home she returned to the [facility] ER on 03/29/24- for [...] high riskBIMS 15/15 Abby Razo NP [address] [facility] [facility], [address], [place], [address], [facility] [employer] 04/08/2024 20:42:30 04/13/2024 text/html Patient is a [...] diff prophylaxis PMH significant forAAA follow by [facility] fibcrf stage 3copdgerdhx uterine cahldhtnneurogenic bladder with foleySSS s/p pacer admit to facility for continued care and therapy Jonah Khan MD [address] [facility] [facility], [address], [place], [address], [facility] [employer] [facility] 04/13/2024 08:34:24 04/17/2024 text/html Trupti is [...] 3/3 stable. PMH significant forAAA follow by [facility] fibcrf stage 3copdgerdhx uterine cahldhtnneurogenic bladder with foleySSS s/p pacer admit to facility for continued care and therapy DERIAN BEE NP [address] [facility] [facility], [place], [address], [facility] [employer] [facility] 04/17/2024 15:56:56 04/24/2024 text/html Trupti is [...] med changes. PMH significant forAAA follow by [facility] sadia fibcrf stage 3copdgerdhx uterine cahldhtnneurogenic bladder with foleySSS s/p pacer DERIAN BEE NP [address] [place] [address], [address], [place], [phone], [facility] [employer] 04/24/2024 14:07:19 04/29/2024 text/html Trupti is see n today for a discharge visit. PMH significant for AAA follow by [facility] vascular, tejas fib, crf stage , [...] diff prophylaxis. [facility]. Since here Trupti [...] pain and spasms. Abby Razo NP [address], [address], [place], [address], [facility] - [employer] 05/01/2024 12:03:58 OBGyn Episode No OBEpisode recorded.
[2024-06-05 16:05] LABS: MANUAL DIFF FLAG NO
[2024-06-05 16:10] LABS: Basophils Absolute Auto 0.1 X10*3/uL (0.0-0.2); Basophils Percent Auto 0.7 % (0-2); Eosinophils Absolute Auto 0.1 X10*3/uL (0.0-0.4); Eosinophils Percent Auto 0.9 % (0-4); Hemoglobin 12.2 g/dl (12.0-16.0); Imm Gran Abs Auto 0.06 X10*3/uL (0.00-0.03); Imm Gran Pct Auto 0.9 % (0.0-0.4); Lymphocytes Percent Auto 15.2 % (20-40); Mean Corpuscular HGB Conc 31.3 g/dl (31.0-35.0); Mean Corpuscular Hemoglobin 26.9 pg (27.0-33.0); Mean Corpuscular Volume 86.1 fL (80.0-98.0); Mean Platelet Volume 9.7 fL (9.4-12.3); Monocytes Absolute Auto 0.6 X10*3/uL (0.1-1.2); Monocytes Percent Auto 8.8 % (2-11); Neutrophils Absolute Auto 4.9 x10*3/uL (2.0-8.3); Neutrophils Percent Auto 73.5 % (45-73); Platelet Count 279 X10*3/uL (160-400); Red Blood Count 4.53 X10*6/uL (4.20-5.50); Red Cell Distribution Width 16.9 % (11.0-16.0); White Blood Count 6.7 X10*3/uL (4.8-10.8)
[2024-06-05 16:16] LABS: Anion Gap 13 (12-20); Blood Urea Nitrogen 22 mg/dL (9-16); Calcium 8.8 mg/dL (8.4-10.2); Carbon Dioxide 20 mmol/L (22-29); Chloride 108 mmol/L (96-108); Estimated Glomerular Filt Rate 55; Potassium 5.2 mmol/L (3.3-5.1); Sodium 136 mmol/L (135-145)
== END 2024-06-05 12:41 | disposition home or self-care (01) ==
LOC: HO.HMGCLDS 12:40
PROVIDERS: PCP Internal Medicine; Visit Provider Internal Medicine Nephrology
DX: E78.5 Hyperlipidemia, unspecified (principal); N18.2 Chronic kidney disease, stage 2 (mild)
CPT/HCPCS: 36415; 80051; 82310; 82565; 84520; 85025

== ENCOUNTER 2024-06-19 12:05 | Outpatient (REF) | payer MEDICARE, SELFPAY ==
--- OUTSIDE RECORDS SUMMARY | 2024-06-19 12:47 | XMS_ITS | Clinical Summary ---
Author Organization [facility] Address [address] [place] [address] Care Team Providers Care Head Up Operator Name Role Phone Elena Jacobo SCREW CUTTER Primary Care Provider Allergies No known active [...] 2 (two) times a day. Active Pancrelipase, Xeu-Jejj-Varh, (Creon) 8501-[address] Particles Take 1 capsule [...] Bone Density (Females,Ages 65 and older) 2014 COVID-19 Vaccine ( season) 2023 04/06/2020, 03/06/2020 Influenza Vaccine 09/06/2024 11/26/2020 Chronic Controlled Substance User PDMP Review Discontinued 12/11/2020 Hepatitis B Vaccines Aged Out No long er eligible based on patient's age to complete this topic Medical Devices Implanted Type Area Qc Tech Device Identifier Shelf Expiration Date Model / Serial / Lot Pacemaker Pacemaker Insurance [facility] [place] [facility] [employer] MANAGED MEDICARE Advance Directives * Full Code (Latest Code Status on File) Date Activated Date Inactivated Comments 12/11/2020 8:56 AM Care Teams Head Up Operator Relationship Specialty Start Date End Date Elena Jacobo NP [address] [place] [address] PCP - General Adult Health - PA/APNP/SCREW CUTTER/FERMENTER HELPER 12/11/20
--- OUTSIDE RECORDS SUMMARY | 2024-06-19 12:47 | XMS_ITS | Clinical Summary ---
Author Organization [facility] Address [address] [place] [address] Phone Care Team Providers Care Radio Program Checker Name Role Phone Raffy Orona MD Primary Care Provider [phone] Allergies No known active allergies Medications ascorbic [...] mg by mouth daily 06/01/2020 Active pancrelipase, Vwd-Meuj-Gdwe, (Creon) 8687-2171 units capsule TAKE 1 CAPSULE BY MOUTH [...] Encounters Date Type Department Care Team Description 06/12/2024 Office Communication [facility] [address] [phone] Latanya Magaña 06/05/2024 11:45 AM EDT Office Visit [facility] [address] [phone] Ck Hunter MD Hyperkalemia (Primary Dx); Chronic kidney disease, stage 2 (mild) 05/24/2024 Office Communication [facility] [address] [phone] Sanjuana Good from Last 3 Months Immunizations [...] Office Visit [facility] [address] [phone] Ck Hunter MD [address] [phone] Health Maintenance Due Date Last [...] on patient's age to complete this topic Procedures Procedure Name Priority Date/Time Associated Diagnosis Comments CALCIUM Routine 06/05/2024 4:01 PM EDT CREATININE, BLOOD Routine 06/05/2024 4:0 1 PM EDT BUN Routine 06/05/2024 4:01 PM EDT ELECTROLYTE PANEL Routine 06/05/2024 4:0 1 PM EDT CBC AND DIFFERENTIAL Routine 06/05/2024 4:01 PM EDT Hyperkalemia Chronic kidney disease, stage 2 (mild) from Last 3 Months Results * Creatinine (06/05/2024 4:01 PM EDT) Pathologist [facility] Creatinine Serum 0.98 0.5 - 1.4 mg/dL See order comments eGFR (Calc) 55 See orde r comments Comment: Chronic Kidney Disease: ??Estimated GFR < 60 mL/min/1.73m2 Severe Kidney Disease: ??Estimated GFR < 15 mL/min/1.73m2 06/05/2024 4:01 PM EDT 06/05/2024 4:01 PM EDT Ck Hunter MD LAB BLOOD ORDERABLES Final Re sult [place] See order comments [place] [address] * (ABNORMAL) CBC and differential (06/05/2024 4:01 PM EDT) Pathologist [facility] WBC 6.7 4.8 - 10.8 X10*3/uL See order comments RBC 4.53 4.20 - 5.50 X10*6/uL See order comments Hgb 12.2 12.0 - 16.0 g/dl See order comments Hematocrit 39.0 37.0 - 47.0 % See order comments MCV 86.1 80.0 - 98.0 fL See order comments MCH 26.9(L) 27.0 - 33.0 pg See order comments MCHC 31.3 31.0 - 35.0 g/dl See order comments RDW 16.9(H) 11.0 - 16.0 % See order comments Platelets 279 160 - 400 X10*3/uL See order comments MPV 9.7 9.4 - 12.3 fL See order comments Neutrophils % Auto 73.5(H) 45 - 73 % See order comments Immature Granulocytes 0.9(H) 0.0 - 0.4 % See order comments Lymphocytes Relative 15.2(L) 20 - 40 % See order comments Monocytes 8.8 2 - 11 % See order comments Eosinophils Relative 0.9 0 - 4 % See order comments Basophils Relative 0.7 0 - 2 % See order comments nRBC Count 0.0 0.0 - 0.2 /100WBC See order comments Neutrophils Absolute 4.9 2.0 - 8.3 x10*3/uL See order comments Immature Grans (Absolute) 0.06(H) 0.00 - 0.03 X10*3/uL See order comments Lymphocytes Absolute 1.0(L) 1.2 - 4.9 X10*3/uL See order comments Monocytes Absolute 0.6 0.1 - 1.2 X10*3/uL See order comments Eosinophils Absolute 0.1 0.0 - 0.4 X10*3/uL See order comments Basophils Absolute 0.1 0.0 - 0.2 X10*3/uL See order comments NRBC Absolute 0.000 0.0 - 0.012 X10*3/uL See order comments Blood (Blood, Venous) 06/05/2024 4:01 PM EDT 06/05/2024 4:01 PM EDT Ck Hunter MD LAB BLOOD ORDERABLES Final Re sult [place] See order comments [place] [address] * (ABNORMAL) BUN (06/05/2024 4:01 PM EDT) BUN 22(H) 9 - 16 mg/dL See order comments 06/05/2024 4:01 PM EDT 06/05/2024 4:01 PM EDT Ck Hunter MD LAB BLOOD ORDERABLES Final Re sult [facility] See order comments [place] [address] * Calcium (06/05/2024 4:01 PM EDT) Calcium 8.8 8.4 - 10.2 mg/dL See order comments 06/05/2024 4:01 PM EDT 06/05/2024 4:01 PM EDT Ck Hunter MD LAB BLOOD ORDERABLES Final Re sult [place] See order comments [place] [address] * (ABNORMAL) Electrolyte panel (06/05/2024 4:01 PM EDT) Sodium 136 135 - 145 mmol/L See order comments Potassium 5.2(H) 3.3 - 5.1 mmol/L See order comments Chloride 108 96 - 108 mmol/L See order comments Bicarbonate (CO2) 20(L) 22 - 29 mmol/L See order comments Anion Gap 13 12 - 20 See order comments 06/05/2024 4:01 PM EDT 06/05/2024 4:01 PM EDT Ck Hunter MD LAB BLOOD ORDERABLES Final Re sult Performing Organization Address City/[facility]/ZIP Co de Phone Number [place] See order comments [place] [address] from Last 3 Months Insurance [facility] Care Teams Radio Program Checker Relationship Specialty Start Date End Date Raffy Orona MD [address], [place] [phone] PCP - General Internal Medicine 06/05/24
--- OUTSIDE RECORDS SUMMARY | 2024-06-19 12:47 | XMS_ITS | Data Portability ---
Author Organization [facility] Stockpile [facility], Main Office Address [address] [place] [address] Care Team Providers Care Informatica Mdm Developer Name Role Phone PRITI SYLVESTER Primary Care [...] bone Active 2024 Ivanna Gutierrez MD [address], [address], [place], [address] , [facility] 5 18:57:44 Abdominal aortic aneurysm 646411959 Active 2024 Jonah Khan MD [address], [address], [place], [address] , [facility] 5 15:23:25 Atrial fibrillation 59824275 Active 2024 Jonah Khan MD [address], [address], [place], [address] , [facility] 5 15:24:30 Chronic kidney disease stage 3A 561578484 Active 2024 Jonah Khan MD [address], [address], [place], [address] , [facility] 5 15:24:38 Chronic obstructive pulmonary disease 99487076 Active 2024 Jonah Khan MD [address], [address], [place], [address] , [facility] 5 15:24:43 History of malignant neoplasm of uterine body 094365576 Active 2024 Jonah Khan MD [address], [address], [place], [address] , [facility] 5 15:24:52 Gastroesophag eal reflux disease without esophagitis 970546547 Active 2024 Jonah Khan MD [address], [place], [address] , [facility] 5 15:24:57 Essential hypertension 81590251 Active 2024 Jonah Khan MD [address], [address], [place], [address] , [facility] 5 15:25:03 Mixed hyperlipidemi a 738056783 Active 2024 Jonah Khan MD [address], [address], [place], [address] , [facility] 5 15:25:10 Neurogenic urinary bladder 994074782 Active 2024 Jonah Khan MD [address], [address], [place], [address] , [facility] 5 15:25:20 Sick sinus syndrome 90091666 Active 2024 Jonah Khan MD [address], [address], [place], [address] , [facility] 5 15:25:25 Osteonecrosis of hip 136495583 Active 2024 Not Available [facility] 5 08:55:23 Intestinal obstruction 95573176 Active 2024 Not Available [facility] 5 08:48:53 Recurrent bacterial infection 748735974 Active 2024 Not Available [facility] 5 08:49:58 Hypo-osmolali ty and or hyponatremia 637802879 Active 2024 Not Available [facility] 5 08:50:29 Muscle weakness 02001586 Active 2024 Not Available [facility] 5 08:51:14 Dysphagia 07460213 Active 2024 Not Available [facility] 5 08:51:44 Unsteady when standing 605627944 Active 2024 Not Available [facility] 5 08:52:15 Chronic kidney disease stage 3 122758897 Active 2024 Not Available [facility] 5 08:53:48 Abdominal aortic aneurysm without rupture 98477379 Active 2024 Not Available [facility] 5 08:54:19 Hyperlipidemi a 59977960 Active 2024 Not Available [facility] 5 08:54:20 Iron deficiency anemia 23501005 Active 2024 Not Available [facility] 5 12:58:42 Recurrent depression 206769703 Active 2024 Not Available [facility] 5 12:58:44 Pneumonia 336498287 Active 2024 Abby Razo NP [address], [address], [place], [address] , [facility] 5 20:37:34 Notes:Some problems listed i n Documents: #[id number], #[id number] could not be added to this patient's [...] Address Organization Details Last Updated DateTime 5 111146. 72 g 68 /min 18 /min 97.5 [degF] 96 % 96 % 121 mm[Hg] 82 mm[Hg] Abby Razo, GABBY [address], [address], [place], [address], [facility] 5 14:01:27 Date Recorded Heart rate Respiratory rate Body temperature Oxygen saturation Oxygen saturation in Arterial blood by Pulse oximetry Systolic blood pressure Diastolic blood pressure Provider Name and Address Organization Details Last Updated DateTime 5 96 /min 18 /min 98.5 [degF] 97 % 97 % 101 mm[Hg] 78 mm[Hg] DERIAN BEE NP [address], [address], [place], [address], [facility] 5 15:46:11 Date Recorded Heart rate Respiratory rate Body temperature Oxygen saturation Oxygen saturation in Arterial blood by Pulse oximetry Systolic blood pressure Diastolic blood pressure Provider Name and Address Organization Details Last Updated DateTime 5 94 /min 18 /min 97.6 [degF] 94 % 94 % 109 mm[Hg] 81 mm[Hg] DERIAN BEE NP [address], [address], [place], [address], [facility] 5 13:05:59 Date Recorded Body weight Heart rate Respiratory rate Body temperature Oxygen saturation Oxygen saturation in Arterial blood by Pulse oximetry Systolic blood pressure Diastolic blood pressure Provider Name and Address Organization Details Last Updated DateTime 5 84523.6 3 g 76 /min 18 /min 98.3 [degF] 96.99 % 96.99 % 128 mm[Hg] 70 mm[Hg] Abby Razo NP [address], [address], [place], [address], [facility] 5 12:35:40 Date Recorded Systolic blood pressure Diastolic blood pressure Provider Name and Address Organization Details Last Updated DateTime 04/13/2024 93 mm[Hg] 76 mm[Hg] Jonah Khan MD [address], [address], [place], [address], [facility] 04/13/2024 08:22:45 Social History Question Answer Notes LastModified by Organization Details LastModified Time Tobacco Smoking Status Never Smoker Jonah Khan MD [address], [place], [address], [facility] 03/12/2024 15:37:56 Do You Have An Advance Directive? No Information not available 03/12/2024 What Is Your Code Status? Full Code No Art Nutrition Information not available 04/08/2024 Where Do You Live? SingleLevelHouse Information not available 04/08/2024 Do You Have A Medical Power Of Agricultural Technical Officer? No Information not available 04/08/2024 What Was The Date Of Your Most Recent Tobacco Screening? 04/08/2024 Information not available 04/08/2024 Do You Have An Out Of Hospital DNR? No Information not available 04/08/2024 What Is Your Relationship Status? Information not available 04/08/2024 Sex: Female Functional Status Question Answer Note LastModified by Organizat ion Details LastModified Time Do you use any illicit or recreational drugs? No Information not available 04/08/2024 Do you or have you ever used any other forms of tobacco or nicotine? No Information not available 04/08/2024 What is your level of alcohol consumption? None Information not available 03/12/2024 Mental Status None recorded. Family History Nothing Reported Notes:N/C Medical History No medical history recorded. Gynecological HistoryNo gynecological history recorded. Obstetrics History GPAL:G 0 P 0 0 0 0 Immunizations Vaccine Type Date Status Note Provider Nam e and Address Organization Details Recorded Time SARS-COV-2 (COVID-19) vaccine, UNSPECIFIED 03/06/2020 dev [facility] 03/12/2024 15:19:00 SARS-COV-2 (COVID-19) vaccine, UNSPECIFIED 04/06/2020 dev [facility] 03/12/2024 15:19:19 SARS-COV-2 (COVID-19) vaccine, UNSPECIFIED 01/19/2021 dev [facility] 03/12/2024 15:19:30 SARS-COV-2 (COVID-19) vaccine, UNSPECIFIED 07/08/2021 dev [facility] 03/12/2024 15:19:37 Past Encounters Encounter ID Performer Location Encounter Start Date Encounter Closed Date Diagnosis/Indication Diagnosis SNOMED-CT Code Diagnosis ICD10 Code Diagnosis Note [id number] MD Syed Mclean at [facility] on [address] [place] [address] 03/12/2024 14:57:39 03/13/2024 09:59:50 Clostridium difficile colitis 720485071 A04.72 concern for sepsis secondary to c diff underwent treatment then question if colonized at [facility] for sxcomplete course of PO vanco Acute kidney injury 1466 9001 N17.8 ARF on CRFimprove d with IVFmonitor renal function Idiopathic avascular necrosis of bone 2020496141 M87.852 avascular necrosis left femoral head on imaging was seen by ortho now with plan to f/u for replacemen t Abdominal aortic aneurysm 736288216 I71.43 [facility]H Asthenia 99322304 R53.1 PT OT eval and treatmonit or fall risk and need for increased support in community Atrial fibrillation 4943 6004 I48.0 xarelto 20 mg qdmetoprol ol 50 mg bidmonitor for rate controlreq uired IV lopressor in hospital Chronic ki dney disease stage 3A 608828118 N18.31 carrying dx with recent ARFmonitor renal functionav oid nephrotoxi c meds as ablenephro consult prn Chronic ob structive pulmonary disease 01312169 J41.1 added to PMHmonitor utilizatio n of albuterol History of malignant neoplasm of uterine body 773871890 Z85.42 added to PMH Gastroesop hageal reflux disease without esophagitis 771181946 K21.9 pantoprazo le 40 mg qdmonitor for sx relief Essential hypertension 97546789 I10 metoprolol 50 mg bidmonitor bp and need to titrate Mixed hyperlipidemia 267 047823 E78.2 simvastati n 40 mg qdcontinue d Neurogenic urinary bladder 214376940 N31.8 abdi cath and care Sick sinus syndrome 3608 3008 I49.5 hx of with pacer in place [id number] LEESA Lynch at [facility] [place] [address] [place] [address] 03/19/2024 09:16:20 03/20/2024 09:36:50 Clostridium difficile colitis 971493765 A04.72 stools resolvedmo nitor for recurrent loose stool Acute kidney injury 1466 9001 N17.8 labs pending todaylast labs in range 21/0.60 Idiopathic avascular necrosis of bone 7977494740 M87.852 avascular necrosis left femoral head on imaging was seen by ortho now with plan to f/u for replacemen tcontinue PT OT see HPI Atrial fibrillation 4943 6004 I48.0 xarelto 20 mg qdmetoprol ol 50 mg bidrate controlled at 79 [id number] LEESARUSH Lynch at [facility] on [address] [facility] [place] [address] 03/22/2024 11:37:26 03/25/2024 11:02:46 Acute kidney injury 02120019 N17.8 stable for patientlas t labs in range 24/0.80enc ourage PO fluids Idiopathic avascular necrosis of bone 1803526656 M87.852 continue PTPt ambulated short distances up to 30' within room x4 trials, RW, SBA with cues for improved prifxsa663 30: Car transfer scheduled for this date [...] ol 50 mg bidrate controlled at 79 [id number] LEESA Lynch at [facility] on [address] [facility] [place] [address] 03/27/2024 12:47:31 03/28/2024 13:18:07 Acute kidney injury 25433782 N17.8 no labs this week for some reason-add cbc bmp tomorrow 03/28 Atrial fibrillation 4943 6004 I48.0 see HPI- had nuclear stress test today, will follow up tomorrow with goldieconalex tane amiodarone 125 mg every other day per cardsxarel to 20 mg qdmetoprol ol 50 mg bid Cough 13674776 R05.9 STAT chest xray two viewsadd cbc with bmp tomorrowsw ab for flu and covid nowmonitor resp status Nausea 688615528 R11.0 continue prn compazine and re-eval in 30 days [id number] LEESA Lynch at [facility] on [address] [facility] [place] [address] 03/28/2024 09:25:01 03/29/2024 13:23:38 Acute kidney injury 05824036 N17.8 labs pending today Atrial fibrillation 4943 6004 I48.0 see HPI- had nuclear stress test, follow up with cards tomorrowco ntinue amiodarone 125 mg every other day per cardsxarel to 20 mg qdmetoprol ol 50 mg bid Cough 42901826 R05.9 waiting on xray resultsif positive send home with miquel spent greater than 15 minutes discussing postpone of DC with patient and SW, ultimately wants to leave, wrote rx for miquel Nausea 417314426 R11.0 continue prn compazine Idiopathic avascular necrosis of bone 4514541861 M87.852 avascular necrosis left femoral head on imaging was seen by ortho now with plan to f/u for replacemen t Abdominal aortic aneurysm 064621976 I71.43 followed by [facility] vascular Asthenia 98598188 R53.1 improved Chronic ki dney disease stage 3A 631613231 N18.31 carrying dx with recent ARFPCP to follow labs Chronic ob structive pulmonary disease 01623175 J41.1 added to PMH History of malignant neoplasm of uterine body 812930212 Z85.42 added to PMH Gastroesop hageal reflux disease without esophagitis 035965102 K21.9 pantoprazo le 40 mg qd Essential hypertension 39693563 I10 metoprolol 50 mg bid Mixed hyperlipidemia 267 710438 E78.2 simvastati n 40 mg qdcontinue d Neurogenic urinary bladder 305891212 N31.8 abdi cath and care Sick sinus syndrome 3608 3008 I49.5 hx of with pacer in place [id number] [facility] [address] [place] [address] 04/08/2024 13:58:51 04/09/2024 13:16:49 Acute kidney injury 95854566 N17.8 hxlikely in setting of dehydratio n from diarrheacb c bmp weekly x 3 monitor Atrial fibrillation 4943 6004 I48.0 digoxin 125 mcg qodxarelto 20 mg qdmetoprol ol 50 mg bid Idiopathic avascular necrosis of bone 0975638104 M87.852 PT/OT eval and treatchole calciferol 25 mcg qdhydrocod one tyl q 6 hours prn painsuppor tive caremonito r Clostridiu m difficile colitis 577061345 A04.72 tested neg for cdif this admission, had it last admissions tools improving 1-2 per dayvanomyc in po for 2 more dosesmonit or for recurrent loose stool Abdominal aortic aneurysm 804039304 I71.43 [facility] pt with Dr Crook per pt coming upmonitor Asthenia 86892933 R53.1 PT OT eval and treatmonit or fall risk and need for increased support in community Chronic ki dney disease stage 3A 602127225 N18.31 carrying dx with recent ARFmonitor renal functionav oid nephrotoxi c meds as ablenephro consult prn Chronic ob structive pulmonary disease 86445243 J41.1 albuterol prnmonitor History of malignant neoplasm of uterine body 433088713 Z85.42 hx of Gastroesop hageal reflux disease without esophagitis 639377398 K21.9 pantoprazo le 40 mg qdmonitor for sx relief Essential hypertension 66010708 I10 metoprolol 50 mg bidmonitor bp and need to titrate Mixed hyperlipidemia 267 077657 E78.2 simvastati n 40 mg qdcontinue d Neurogenic urinary bladder 843952961 N31.8 abdi cath and carechange monthly per regular regimenmon itor for s/s of infection Sick sinus syndrome 3608 3008 I49.5 hx of with pacer in place Iron defic iency anemia 34270299 D50.9 ferrous sulfate qdvit c qdmonitor labs Recurrent depression 191 898254 F32.A lexapro 10 mg po qdmonitorp sych prn Pneumonia 779702390 J18. 9 with sepsis pneumoniah ad course of ceftriaxon e in hospalb prnduoneb q 4 hours prnmonitor cbc and bmp weekly x 3 Recurrent falls 01293459 2 R29.6 pt with falls from home and very deconditio nedPT OT eval and treatsuppo rtive caremonito r [id number] Jonah Khan MD [address] [address] 04/13/2024 08:22:12 04/16/2024 10:05:52 Sepsis 51711555 A41.89 complete course of abxmonitor for recurrent infection Asthenia 28925099 R53.1 PT OT eval and treatmonit or fall risk and need for increased support in community Clostridiu m difficile colitis 183396842 A04.72 concern for sepsis secondary to c diff underwent treatment then question if colonized at [facility] for sxcomplete course of PO vanco Acute kidney injury 1466 9001 N17.8 ARF on CRFimprove d with IVFmonitor renal function Idiopathic avascular necrosis of bone 1389203904 M87.852 avascular necrosis left femoral head on imaging was seen by ortho now with plan to f/u for replacemen tcoordinat e care Abdominal aortic aneurysm 017095406 I71.43 [facility] to PMH Atrial fibrillation 4943 6004 I48.0 xarelto 20 mg qdmetoprol ol 50 mg bidmonitor for rate control Chronic ki dney disease stage 3A 894171016 N18.31 carrying dx with recent ARFmonitor renal functionav oid nephrotoxi c meds as ablenephro consult prn Chronic ob structive pulmonary disease 96082505 J41.1 added to PMHmonitor utilizatio n of albuterol History of malignant neoplasm of uterine body 855002664 Z85.42 added to PMH Gastroesop hageal reflux disease without esophagitis 836760438 K21.9 pantoprazo le 40 mg qdmonitor for sx relief Essential hypertension 89713414 I10 metoprolol 50 mg bidmonitor bp and need to titrate Mixed hyperlipidemia 267 242781 E78.2 simvastati n 40 mg qdcontinue d Neurogenic urinary bladder 234236958 N31.8 abdi cath and care Sick sinus syndrome 3608 3008 I49.5 hx of with pacer in place [id number] DERIAN BEE NP [facility] [address] [address] 04/17/2024 15:45:04 04/18/2024 14:24:58 Sepsis 89506159 A41.89 completed course of abxmonitor for recurrent infectionV SS, clinically stableChec k labs prn Idiopathic avascular necrosis of bone 8594401416 M87.852 avascular necrosis left femoral head on imaging was seen by ortho now with plan to f/u for replacemen tcoordinat e care with OrthoPT OT eval and tx. Asthenia 24804352 R53.1 PT OT eval and treatmonit or fall risk and need for increased support in community Clostridiu m difficile colitis 674781001 A04.72 concern for sepsis secondary to c diff underwent treatment then question if colonized at [facility] for sxcomplete d course of PO vanco Acute kidney injury 1466 9001 N17.8 ARF on CRFimprove d with IVFmonitor renal function Abdominal aortic aneurysm 036769834 I71.43 [facility] ded to PMH Atrial fibrillation 4943 6004 I48.0 xarelto 20 mg qdmetoprol ol 50 mg bidmonitor for rate control Chronic ki dney disease stage 3A 672074987 N18.31 carrying dx with recent ARFmonitor renal functionav oid nephrotoxi c meds as ablenephro consult prn Chronic ob structive pulmonary disease 60786185 J41.1 added to PMHmonitor utilizatio n of albuterol History of malignant neoplasm of uterine body 894766224 Z85.42 added to PMH Gastroesop hageal reflux disease without esophagitis 802230327 K21.9 pantoprazo le 40 mg qdmonitor for sx relief Essential hypertension 66775178 I10 metoprolol 50 mg bidmonitor bp and need to titrate Mixed hyperlipidemia 267 398144 E78.2 simvastati n 40 mg qdcontinue d Neurogenic urinary bladder 536523808 N31.8 abdi cath and carecontin ue methenamin e 1 gm qd for UTI proph. Sick sinus syndrome 3608 3008 I49.5 hx of with pacer in place [id number] DERIAN BEE NP [facility] [address] [place] [address] 04/24/2024 10:46:51 04/26/2024 14:47:06 Sepsis 01603904 A41.89 resolved.c ompleted course of abxmonitor ing for recurrent infectionV SS, clinically stableChec k labs prn Idiopathic avascular necrosis of bone 5757704133 M87.852 avascular necrosis left femoral head on imaging was seen by ortho now with plan to f/u for replacemen tcoordinat e care with OrthoPT OT eval and tx.Monitor pain, [facility] Asthenia 34929959 R53.1 Continue PT OTmonitor fall risk and need for increased support in community Clostridiu m difficile colitis 751871871 A04.72 concern for sepsis secondary to c diff underwent treatment then question if colonized at [facility] for sxcomplete d course of PO vanco Acute kidney injury 1466 9001 N17.8 ARF on CRFimprove d with IVFmonitor renal functionav oid nephrotoxi cs Abdominal aortic aneurysm 394056472 I71.43 [facility] ded to PMH Atrial fibrillation 4943 6004 I48.0 Continue:x arelto 20 mg qdmetoprol ol 50 mg bidmonitor for rate control Chronic ki dney disease stage 3A 796120724 N18.31 carrying dx with recent ARFmonitor renal functionav oid nephrotoxi c meds as ablenephro consult prn Chronic ob structive pulmonary disease 03169807 J41.1 added to PMHmonitor utilizatio n of albuterol History of malignant neoplasm of uterine body 280486710 Z85.42 added to PMH Gastroesop hageal reflux disease without esophagitis 344671968 K21.9 pantoprazo le 40 mg qdmonitor for sx relief Essential hypertension 27240150 I10 continue metoprolol 50 mg bidmonitor bp and need to titrate Mixed hyperlipidemia 267 035165 E78.2 simvastati n 40 mg qdcontinue d Neurogenic urinary bladder 079122833 N31.8 Chronic - indwelling abdi cath x yrs.contin ue methenamin e 1 gm qd for UTI proph. Sick sinus syndrome 3608 3008 I49.5 hx of with pacer in place Insomnia 279254143 G47.0 9 Pt. requesting sleep aid - add melatonin 5 mg q HS prnMonitor use and effect. Cramp in lower limb 4499 47992 R25.2 In calves, comes and goes, gets some relief when legs moved and stretched. Already on Fe, vitamin/mi neral supplement s.Also on statin.Elle ck labs - CBC, BMP Mg FeContinue to monitor closelyCon imagery intelligence tonic water prnArchie dum - will add tizanidine 2 mg q hs prn for now - monitor use and effect. [id number] Abby Razo, GABBY [facility] [address] [address] 04/29/2024 12:34:25 05/01/2024 15:15:14 Sepsis 51662752 A41.89 resolved.c ompleted course of abx Insomnia 402409125 G47.0 9 while her melatonin addedcontm elatonin 5 mg q HS prnMonitor use and effect outpt with pcp Cramp in lower limb 4499 10905 R25.2 In calves, comes and goes, gets some relief when legs moved and stretched. resolvingA lready on Fe, vitamin/mi neral supplement s.Also on statin.add ed tizanidine 2 mg q hs prn here with effect will continue prnfu with pcp outpt Idiopathic avascular necrosis of bone 1593467313 M87.852 avascular necrosis left femoral head on imaging was seen by ortho now with plan to f/u for replacemen t=coordina te care with Ortho for future surgeryPT OT eval and tx. prn outptMonit or outpt with pcp and fu with ortho on 05/06hydroc odone/tyl 1 tab q 6 hours prn Asthenia 33420637 R53.1 Continue PT OTmonitor fall risk and need for increased support in community Clostridiu m difficile colitis 555119289 A04.72 resolvedco ncern for sepsis secondary to c diff underwent treatment then question if colonized at [facility] for sxcomplete d course of PO vanco and symptomati c Acute kidney injury 1466 9001 N17.8 ARF resolvedAR F on CRFimprove d with IVFmonitor renal functionav oid nephrotoxi csfu with pcp Abdominal aortic aneurysm 291316036 I71.43 followed by [facility] vascular Atrial fibrillation 4943 6004 I48.0 Continue:x arelto 20 mg qdmetoprol ol 50 mg bidmonitor for rate controlfu with pcp Chronic ki dney disease stage 3A 857146100 N18.31 carrying dx with recent ARFmonitor renal functionav oid nephrotoxi c meds as ablenephro consult prnfu with pcp Chronic ob structive pulmonary disease 66306473 J41.1 hx ofmonitor utilizatio n of albuterolf u with pcp History of malignant neoplasm of uterine body 211560610 Z85.42 hx ofchronic foleyfu with pcp Gastroesop hageal reflux disease without esophagitis 799365838 K21.9 pantoprazo le 40 mg qdmonitor for sx relief wtih pcp outpt Essential hypertension 26691344 I10 continue metoprolol 50 mg bidmonitor bp and need to titrate outpt with pcp Mixed hyperlipidemia 267 917157 E78.2 simvastati n 40 mg qdcontinue d with pcp outpt Neurogenic urinary bladder 514900126 N31.8 Chronic - indwelling abdi cath x [...] Ruiz Member ID Guarantor Name 04/08/2024 1 [facility] MEDICARE PREFERRED (MEDICARE REPLACEMENT HMO) PRAKASH Jung [id number] Trupti Jung 04/13/2024 1 [facility] MEDICARE PREFERRED (MEDICARE REPLACEMENT HMO) PRAKASH Jung [id number] Trupti Jung 04/17/2024 1 [facility] MEDICARE PREFERRED (MEDICARE REPLACEMENT HMO) PRAKASH Jung [id number] Trupti Jung 04/24/2024 1 [facility] MEDICARE PREFERRED (MEDICARE REPLACEMENT HMO) PRAKASH Jung [id number] Trupti Jung 04/29/2024 1 [facility] - MEDICARE PREFERRED (MEDICARE REPLACEMENT HMO) PRAKASH Jung [id number] Trupti Jung Notes Date Note Type Note Provider Name and Address Organization Details Recorded Time 04/08/2024 text/html Patient is a 73 yo female seen today for an initial intake visit. PMH significant for AAA follow by [facility] vascular, a fib, crf stage , copd, gerd, hx uterine ca,hld, htn, neurogenic bladder with abdi, SSS s/p pacer, avascualar necrosis of left hip Trupti is a 73 yo f here at [facility] for rehab post [facility] admission for recent hospitalization 02/27-03/03 for c diff sepsis and dc to rehab at [facility] subsequently dc'd on 03/28/24. Since discharged from home she returned to the [facility] ER on 03/29/24- for progressively weak, persistent [...] okayMORSE: high riskBIMS Abby Razo NP [address], [address], [place], [address], [facility] 04/08/2024 20:42:30 04/13/2024 text/html Patient is a [...] diff prophylaxis PMH significant forAAA follow by [facility] fibcrf stage 3copdgerdhx uterine cahldhtnneurogenic bladder with foleySSS s/p pacer admit to facility for continued care and therapy Jonah Khan MD [address], [address], [place], [address], [facility] 04/13/2024 08:34:24 04/17/2024 text/html Trupti is [...] NAD.No new concerns per nsg. VSSLast labs 04/08 stable. PMH significant forAAA follow by [facility] fibcrf stage 3copdgerdhx uterine cahldhtnneurogenic bladder with foleySSS s/p pacer admit to facility for continued care and therapy DERIAN BEE NP [address], [address], [place], [address], [facility] 04/17/2024 15:56:56 04/24/2024 text/html Trupti is [...] med changes. PMH significant forAAA follow by [facility] vasculara fibcrf stage 3copdgerdhx uterine cahldhtnneurogenic bladder with foleySSS s/p pacer DERIAN BEE NP [address] [place] [address], [address], [place], [address], [facility] 04/24/2024 14:07:19 04/29/2024 text/html Trupti is see n today for a discharge visit. PMH significant for AAA follow by [facility] vascular, a fib, crf stage , [...] diff prophylaxis. She was admitted to to [facility] for rehab and care. Since here Trupti [...] pain and spasms. Abby Razo NP [address], [address], [place], [address], [facility] 05/01/2024 12:03:58 OBGyn Episode No OBEpisode recorded.
--- OUTSIDE RECORDS SUMMARY | 2024-06-19 12:47 | XMS_ITS | Encounter Summary ---
Author Organization [facility] Address [address] [place] [address] Phone Care Team Providers Care Friction Saw Operator Name Role Phone Raffy Orona MD Primary Care Provider [phone] Encounter Details Date Type Department Care Team (Late st Contact Info) Description 11/10/2021 Telephone [facility] [address] [place] [address] Inocente Martínez MD Social History [...] Office Visit [facility] [address] [place] [address] Ck Hunter MD [address] [phone] documented as of this encounter Visit Diagnoses Not on filedocumented in this encounter Care Teams Friction Saw Operator Relationship Specialty Start Date End Date Raffy Orona MD [address] [place] [address] PCP - General Internal Medicine 06/05/24 documented as of this encounter
== END 2024-06-19 12:06 | disposition home or self-care (01) ==
LOC: HO.HMGCLDS 12:05
PROVIDERS: PCP Internal Medicine; Visit Provider Internal Medicine
DX: E87.5 Hyperkalemia (principal)
CPT/HCPCS: 36415; 84132

== ENCOUNTER 2024-06-27 09:18 | Outpatient (AMB) | payer MEDICARE, SELFPAY ==
[2024-06-27 09:43] VITALS: BP 100/62; PULSE 70
--- NOTE | 2024-06-27 09:43 | A.OFFVIS_ITS ---
Vital Signs 06/27/24 09:43 Height 5 ft 2 in BP 100/62 Blood Pressure Location Lt brachial Position Sitting Pulse 70 Pulse Source Monitor Intake Visit Reasons: 3m follow up Political Theory Professor Required: No Print Graphic Designer: Print Graphic Designer Present Allergies No Known Allergies [No Known Allergies*] Allergy (Verified 06/27/24 09:45) Medication List - Last Reconciled 06/27/24 by MARILY Vigil albuterol sulfate 90 mcg/actuation 2 puffs inhalation Q6H PRN ascorbic acid (vitamin C) (Vitamin C) 1,000 mg (2 x 500 mg) PO DAILY calcium carbonate 500 mg PO DAILY PRN [catheter insertion kit As directed- 2 kits per month] [catheter irrigation kit As directed- 2 kits per month] cholecalciferol (vitamin D3) 25 mcg PO DAILY colesevelam 1,250 mg (2 x 625 mg) PO BID 90 days colestipol 1 g PO BID colestipol 1 g PO BID cyanocobalamin (vitamin B-12) 1,000 mcg PO DAILY dicyclomine 10 mg PO BID digoxin 125 mcg PO Q OTHER DAY escitalopram oxalate 10 mg PO DAILY estradiol 0.01%(0.1mg/gram) 2 grams vaginal MOFR ferrous sulfate 325 mg PO DAILY fluticasone propionate 50 mcg/actuation 2 sprays intranasal DAILY PRN [abdi catheters As directed- 2 catheters per month] folic acid 1 mg PO DAILY hydrocodone-acetaminophen 5-325 mg 1 tab PO Q6H PRN ipratropium-albuterol 0.5 mg-3 mg(2.5 mg base)/3 mL 3 mL inhalation Q4H PRN Lactobacillus rhamnosus GG (Culturelle) 1 cap PO DAILY [leg bags 2 catheter leg bags per month] magnesium citrate 200 mg PO BEDTIME methenamine hippurate 1 g PO DAILY 90 days metoprolol tartrate 50 mg PO BID [night bags As directed- 1 catheter night bag per month] ondansetron HCl 4 mg PO Q6H PRN pantoprazole 40 mg PO DAILY@0630 prochlorperazine maleate 5 mg PO Q12H PRN rivaroxaban (Xarelto) 20 mg PO DAILY@1700 simethicone (Anti-Gas Ultra Strength) 180 mg PO BID simvastatin 40 mg PO BEDTIME [sterile water As directed for abdi catheter irrigation ] sulfamethoxazole-trimethoprim 800-160 mg (Bactrim DS) 1 tab PO BID 5 days vancomycin 125 mg PO Q6H zinc sulfate 50 mg PO DAILY HPI HPI 3m follow up: Details: Trupti is a 73-year-old female with past medical history of hypertension, GERD, COPD, sick sinus syndrome status post pacemaker placement, abdominal aortic aneurysm followed by Dr Crook, avascular necrosis of left him and in need of left total hip replacement, chronic atrial fibrillation, on anticoagulation who presents for follow up. Since last visit she was referred by orthopedics to [facility] orthopedics for opinion on hip replacement since she has risk factors for surgery. Today she reports that [facility] told her that having her hip replacement would be too risky. She does not think she is going back there and states only if it is her only option. She finds the travel is difficult for her and her son. She has chronic significant discomfort in the left hip region and ambulates only short distances with the use of a walker. She has occasional random discomfort in her chest, mostly occurring at rest. She has no chest discomfort clearly brought on by walking. She has some shortness of breath with activity which could be related to deconditioning. She tells me she did have recent pneumonia but has fully recovered. She denies PND, orthopnea or edema. No heart palpitations, presyncope, syncope, falls. She will get lightheaded if she stands up quickly. She is sitting in a wheelchair at this visit. She takes her meds as directed. No bleeding issues at this time. Since last visit she has had hematuria on a few occasions. Son is present. She has follow-up with Dr. Crook, vascular in October. She has no hip or abdominal aortic aneurysm surgery planned. [facility] Medical History Chronic atrial fibrillation Small bowel obstruction AAA (abdominal aortic aneurysm) Permanent atrial fibrillation Atrial fibrillation On beta mayra at home Legally blind Retention, urine Pneumonia Exercise hypoxemia GERD (gastroesophageal reflux disease) Hypertension Persistent atrial fibrillation COPD (chronic obstructive pulmonary disease) Dyspnea on exertion HTN (hypertension) Cardiac pacemaker in situ Sick sinus syndrome Surgical History History of endoscopy Hx of colonoscopy History of esophagogastroduodenoscopy (EGD) Hx of hysterectomy Hx of cardiac pacemaker History of radiofrequency ablation (RFA) for complex left atrial arrhythmia History of cardioversion Family History Father CHF (congestive heart failure) Cancer Pacemaker Mother Emphysema lung Social History Household Members: Family Household Members Other:: AND SON Housing: House Are you a primary ambulatory care to a significant other at home: No Do you presently have visiting nurse or other home services: Yes ([facility]) Unable to assess alcohol history related to: Unknown Alcohol intake: former Patient Tobacco Use Status: Former Tobacco user Advance Directives Date on File: 07/26/22 service: No Review of Systems Const All systems reviewed & are unremarkable except as noted in HPI and below ENT Denies dizziness Card Denies chest pain, Denies chest pain at rest, Denies chest pain with activity, D enies rapid heart rate, Denies pedal edema, Denies edema, Denies leg edema, Denies lightheadedness, Denies palpitations, Denies dyspnea, Reports dyspnea on exertion and Denies orthopnea Resp Denies cough, Denies dyspnea and Reports dyspnea on exertion GI Denies hematochezia and Denies change in stool character Musc Details: hip pain Reports abnormal gait, Reports limited range of motion, Denies muscle cramps, Reports muscle weakness, Denies numbness, Denies radiating pain into limb, Denies stiffness and Denies tingling Neuro Reports abnormal gait, Denies dizziness, Denies numbness and Denies tingling Endo Denies palpitations Physical Exam Vital Signs: Last Vital Signs Pulse 70 06/27/24 09:43 BP 100/62 06/27/24 09:43 Const Other: sitting in wheelchair General: cooperative, healthy appearing, comfortable and no acute distress Orientation/consciousness: patient oriented x3 Neck Neck: Yes normal visual inspection Resp Effort & Inspection: normal respiratory effort Auscultation: no rales and no rhonchi Cardio Rate: regular rate Rhythm: abnormal rhythm Heart sounds: S1 normal heart sound present, S2 normal heart sound present, no gallops, no murmurs and no rubs Peripheral pulses: Peripheral pulses 2+ throughout Neuro General: patient oriented x3 Extrem General: Yes normal to inspection Psych Appearance: grossly normal Mental Status: mental status grossly normal Speech and movement: Normal speech and movement present Office Procedures Cardiac Device Check Cardiac Device Check Details: Medtronic dual-chamber pacemaker interrogation today, battery voltage 2.83 at HR MANAGER as of today, VVIR, low rate 60, fibrillation, V pace 14.1% RV threshold 1.875 volts at 0.4 milliseconds. Episodes of high V rates, likely AF with RVR, last 06/24/2024 lasting 22 minutes [id number] Cardiac Device Check, pacemaker dual lead Procedure code (CPT) selection complete EKG Details: Today, read by me atrial fibrillation with PVCs, septal q wave, ST/ T wave abnormality inferolateral leads which is unchanged from last EKG 03/29/24. rate 70, Qtc 421ms [id number], Complete Results Reviewed Results Reviewed: 03/27/24 NM cardiolite stress test Impression: 1. Myocardial perfusion imaging study shows normal myocardial perfusion. 2. Gated LVEF is 51% during stress but visually appears higher. Correlate with echocardiogram. 3. Transient ischemic dilatation not present. EKG component of the test reported separately. EKG done 03/29/24 shows afib, ST/ T wave abn inferolateral leads. Labs 03/28/24 showed Digoxin level 0.5. Assessment & Plan Assessment & Plan (1) Persistent atrial fibrillation: Code(s): I48.19 - Other persistent atrial fibrillation Category: Medical Plan: History of persistent atrial fibrillation that is treated with heart rate control using metoprolol and digoxin, and anticoagulation, using Xarelto. prolol tartrate 50 mg b.i.d. EKG today shows atrial fibrillation with PVCs, rate 70. No reports of heart palpitations. Digoxin level 0.5 on 03/28/2024. No medication changes made (2) Pacemaker generator end of life: Code(s): Z45.010 - Encounter for checking and testing of cardiac pacemaker pulse generator [battery] Category: Medical Plan: Pacemaker interrogation today shows device has reached HR MANAGER today. Patient informed and is agreeable to undergo generator change under local anesthesia. Referral entered for electrophysiology. Cardiology follow-up 2 months with device check. Anticipate wound check to be done by EP. (3) Cardiac pacemaker in situ: Code(s): Z95.0 - Presence of cardiac pacemaker Category: Medical Plan: Medtronic dual-chamber pacemaker interrogation today shows device is functioning normally however at HR MANAGER as above. (4) HTN (hypertension): Code(s): I10 - Essential (primary) hypertension Category: Medical Plan: Blood pressure goal less than 130/80. Blood pressure on the low side today, asymptomatic. No med changes made (5) Abnormal EKG: Code(s): R94.31 - Abnormal electrocardiogram [ECG] [EKG] Category: Medical Plan: EKG done today is showing atrial fibrillation, scoping ST depressions inferior lateral leads, no significant change from prior EKG, asymptomatic. She does not have a known history of CAD. She does have cardiac risk factors including sedentary, hypertension, hyperlipidemia, age. Echocardiogram done 02/29/2024 showed EF 60-65%, severely dilated left atrium, moderate to severe decrease in RV systolic function, mild MR. Recent pharmacological nuclear stress test was negative for ischemia. (6) Hospital discharge follow-up: Code(s): Z09 - Encounter for follow-up examination after completed treatment for conditions other than malignant neoplasm Category: Medical Plan: Discharge summary reviewed (7) Infrarenal abdominal aortic aneurysm (AAA) without rupture: Code(s): I71.43 - Infrarenal abdominal aortic aneurysm, without rupture Category: Medical Plan: Follows with Dr. Crook (8) Osteoarthritis of left hip: Code(s): M16.12 - Unilateral primary osteoarthritis, left hip Category: Medical Plan: Follows with Dr. Oropeza Plan Time spent on chart review, documentation, interview and assessment I discussed with the patient that her pacemaker battery replacement will occur at [facility] with minimal procedural risks. Benefits include ensuring continued effective cardiac pacing. We acknowledged Xarelto's two-day hold minimizes bleeding complications. We discussed the high-risk nature of abdominal aortic aneurysm surgery, emphasizing that Dr. Crook will monitor progress. I elaborated on afib control measures and reviewed past stress test findings underscoring stable coronary health. The consent process involved clarifying procedural logistics and recovery timelines. Follow-ups will focus on recovery and cardiac management consistency, involving Dr. Kaba for post-pro cedure checks and detailed guidance on maintaining hydration for low BP stabilization. Orders: Referrals Cardiac Electrophysiology Referral Z45.010 - Encounter for checking and testing of cardiac pacemaker pulse generator [battery] Patient Instructions: - Replace pacemaker battery at [facility]. - No Xarelto for two days before the procedure. - Monitor blood pressure trends; stay hydrated. - Appointments with Dr. Crook as scheduled. - Call with any new or recurring symptoms, especially hematuria. - Maintain current cardiovascular medication regimen. - Use walker for mobility; avoid risk of falls. - Monitor for changes in chest pressure or dizziness. - Follow post-procedure care instructions after pacemaker replacement. Patient was informed and verbally consented to the use of an ambient scribe for clinic note documentation during this visit. Coding Level of Care Code Est Pt Level 4 (56736) Complex EM visit Add On G2211 Diagnoses Persistent atrial fibrillation I48.19 Pacemaker generator end of life Z45.010 Cardiac pacemaker in situ Z95.0 HTN (hypertension) I10 Abnormal EKG R94.31 Hospital discharge follow-up Z09 Infrarenal abdominal aortic aneurysm (AAA) without rupture I71.43 Osteoarthritis of left hip M16.12 CPT Codes Cardiac Device Check - Cardiac Device 2: [id number] Cardiac Device Check, pacemaker dual lead ([id number]) EKG - CPT: 05314-[id number], Complete ([id number]) Time Spent (min) 36
== END 2024-06-27 11:02 | disposition home or self-care (01) ==
LOC: HO.HCS 09:19
PROVIDERS: PCP Internal Medicine; Visit Provider Nurse Practitioner Family
DX: I48.19 Other persistent atrial fibrillation (principal); Z45.010 Encounter for checking and testing of cardiac pacemaker pulse generator [battery]; Z95.0 Presence of cardiac pacemaker; I10 Essential (primary) hypertension; R94.31 Abnormal electrocardiogram [ECG] [EKG]; Z09 Encounter for follow-up examination after completed treatment for conditions other than malignant neoplasm; I71.43 Infrarenal abdominal aortic aneurysm, without rupture; M16.12 Unilateral primary osteoarthritis, left hip
CPT/HCPCS: 93010; 93280; 99214; G2211

== ENCOUNTER → 2024-06-27 09:18 | Outpatient (BNVA) | payer MEDICARE, SELFPAY | PROVIDERS: PCP Internal Medicine; Visit Provider Nurse Practitioner Family | DX: Z45.018 Encounter for adjustment and management of other part of cardiac pacemaker (principal); Z09 Encounter for follow-up examination after completed treatment for conditions other than malignant neoplasm; I48.19 Other persistent atrial fibrillation; I10 Essential (primary) hypertension; I71.43 Infrarenal abdominal aortic aneurysm, without rupture; M16.12 Unilateral primary osteoarthritis, left hip; R94.31 Abnormal electrocardiogram [ECG] [EKG] | CPT/HCPCS: 93005; 93280; 99212 ==

== ENCOUNTER 2024-06-28 15:13 | Outpatient (REF) | payer MEDICARE, SELFPAY ==
--- OUTSIDE RECORDS SUMMARY | 2024-06-28 15:17 | XMS_ITS | Data Portability ---
Author Organization [facility] [facility], Main Office Address [address] [place] [address] Care Team Providers Care Imposer Name Role Phone PRITI SYLVESTER Primary Care [...] bone Active 2024 Ivanna Gutierrez MD [address], [address], [place], [address] , [facility] 5 18:57:44 Abdominal aortic aneurysm 627422212 Active 2024 Jonah Khan MD [address], [address], [place], [address] , [facility] 5 15:23:25 Atrial fibrillation 95144014 Active 2024 Jonah Khan MD [address], [address], [place], [address] , [facility] 5 15:24:30 Chronic kidney disease stage 3A 209359080 Active 2024 Jonah Khan MD [address], [address], [place], [address] , [facility] 5 15:24:38 Chronic obstructive pulmonary disease 29571441 Active 2024 Jonah Khan MD [address], [address], [place], [address] , [facility] 5 15:24:43 History of malignant neoplasm of uterine body 508989293 Active 2024 Jonah Khan MD [address], [address], [place], [address] , [facility] 5 15:24:52 Gastroesophag eal reflux disease without esophagitis 846129729 Active 2024 Jonah Khan MD [address], [place], [address] , [facility] 5 15:24:57 Essential hypertension 30136064 Active 2024 Jonah Khan MD [address], [address], [place], [address] , [facility] 5 15:25:03 Mixed hyperlipidemi a 465797497 Active 2024 Jonah Khan MD [address], [address], [place], [address] , [facility] 5 15:25:10 Neurogenic urinary bladder 107158294 Active 2024 Jonah Khan MD [address], [address], [place], [address] , [facility] 5 15:25:20 Sick sinus syndrome 01644771 Active 2024 Jonah Khan MD [address], [address], [place], [address] , [facility] 5 15:25:25 Osteonecrosis of hip 098385194 Active 2024 Not Available [facility] 5 08:55:23 Intestinal obstruction 49603538 Active 2024 Not Available [facility] 5 08:48:53 Recurrent bacterial infection 443468083 Active 2024 Not Available [facility] 5 08:49:58 Hypo-osmolali ty and or hyponatremia 330371422 Active 2024 Not Available [facility] 5 08:50:29 Muscle weakness 56980211 Active 2024 Not Available [facility] 5 08:51:14 Dysphagia 03219509 Active 2024 Not Available [facility] 5 08:51:44 Unsteady when standing 383384375 Active 2024 Not Available [facility] 5 08:52:15 Chronic kidney disease stage 3 439634747 Active 2024 Not Available [facility] 5 08:53:48 Abdominal aortic aneurysm without rupture 50386426 Active 2024 Not Available [facility] 5 08:54:19 Hyperlipidemi a 68363187 Active 2024 Not Available [facility] 5 08:54:20 Iron deficiency anemia 69533099 Active 2024 Not Available [facility] 5 12:58:42 Recurrent depression 088713499 Active 2024 Not Available [facility] 5 12:58:44 Pneumonia 208843217 Active 2024 Abby Razo NP [address], [address], [place], [address] , [facility] 5 20:37:34 Notes:Some problems listed i n Documents: #[id number], #[id number] could not be added to this patient's [...] Address Organization Details Last Updated DateTime 5 541374. 72 g 68 /min 18 /min 97.5 [degF] 96 % 96 % 121 mm[Hg] 82 mm[Hg] Abby Razo, GABBY [address], [address], [place], [address], [facility] 5 14:01:27 Date Recorded Heart rate Respiratory rate Body temperature Oxygen saturation Oxygen saturation in Arterial blood by Pulse oximetry Systolic blood pressure Diastolic blood pressure Provider Name and Address Organization Details Last Updated DateTime 5 96 /min 18 /min 98.5 [degF] 97 % 97 % 101 mm[Hg] 78 mm[Hg] DERIAN BEE NP [address], [address], [place], [address], [facility] 5 15:46:11 Date Recorded Heart rate Respiratory rate Body temperature Oxygen saturation Oxygen saturation in Arterial blood by Pulse oximetry Systolic blood pressure Diastolic blood pressure Provider Name and Address Organization Details Last Updated DateTime 5 94 /min 18 /min 97.6 [degF] 94 % 94 % 109 mm[Hg] 81 mm[Hg] DERIAN BEE NP [address], [address], [place], [address], [facility] 5 13:05:59 Date Recorded Body weight Heart rate Respiratory rate Body temperature Oxygen saturation Oxygen saturation in Arterial blood by Pulse oximetry Systolic blood pressure Diastolic blood pressure Provider Name and Address Organization Details Last Updated DateTime 5 91237.6 3 g 76 /min 18 /min 98.3 [degF] 96.99 % 96.99 % 128 mm[Hg] 70 mm[Hg] Abby Razo NP [address], [address], [place], [address], [facility] 5 12:35:40 Date Recorded Systolic blood pressure Diastolic blood pressure Provider Name and Address Organization Details Last Updated DateTime 04/13/2024 93 mm[Hg] 76 mm[Hg] Jonah Khan MD [address], [address], [place], [address], [facility] 04/13/2024 08:22:45 Social History Question Answer Notes LastModified by Organization Details LastModified Time Tobacco Smoking Status Never Smoker Jonah Khan MD [address], [place], [address], [facility] 03/12/2024 15:37:56 Do You Have An Advance Directive? No Information not available 03/12/2024 What Is Your Code Status? Full Code No Art Nutrition Information not available 04/08/2024 Where Do You Live? SingleLevelHouse Information not available 04/08/2024 Do You Have A Medical Power Of Communications And Signals Supervisor? No Information not available 04/08/2024 What [...] SARS-COV-2 (COVID-19) vaccine, UNSPECIFIED 03/06/2020 dev [facility] 03/12/2024 15:19:00 SARS-COV-2 (COVID-19) vaccine, UNSPECIFIED 04/06/2020 dev Reyes [facility] 03/12/2024 15:19:19 SARS-COV-2 (COVID-19) vaccine, UNSPECIFIED 01/19/2021 dev Reyes [facility] 03/12/2024 15:19:30 SARS-COV-2 (COVID-19) vaccine, UNSPECIFIED 07/08/2021 dev Reyes [facility] 03/12/2024 15:19:37 Past Encounters Encounter ID Performer Location Encounter Start Date Encounter Closed Date Diagnosis/Indication Diagnosis SNOMED-CT Code Diagnosis ICD10 Code Diagnosis Note [id number] MD Syed Mclean at [facility] on [address] [place] [address] 03/12/2024 14:57:39 03/13/2024 09:59:50 Clostridium difficile colitis 177436158 A04.72 concern for sepsis secondary to c diff underwent treatment then question if colonized at [facility] for sxcomplete course of PO vanco Acute kidney injury 1466 9001 N17.8 ARF on CRFimprove d with IVFmonitor renal function Idiopathic avascular necrosis of bone 5321287003 M87.852 avascular necrosis left femoral head on imaging was seen by ortho now with plan to f/u for replacemen t Abdominal aortic aneurysm 405554855 I71.43 [facility] PMH Asthenia 24867963 R53.1 PT OT eval and treatmonit or fall risk and need for increased support in community Atrial fibrillation 4943 6004 I48.0 xarelto 20 mg qdmetoprol ol 50 mg bidmonitor for rate controlreq uired IV lopressor in hospital Chronic ki dney disease stage 3A 657117413 N18.31 carrying dx with recent ARFmonitor renal functionav oid nephrotoxi c meds as ablenephro consult prn Chronic ob structive pulmonary disease 12644635 J41.1 added to PMHmonitor utilizatio n of albuterol History of malignant neoplasm of uterine body 649739208 Z85.42 added to PMH Gastroesop hageal reflux disease without esophagitis 380002465 K21.9 pantoprazo le 40 mg qdmonitor for sx relief Essential hypertension 42630643 I10 metoprolol 50 mg bidmonitor bp and need to titrate Mixed hyperlipidemia 267 748421 E78.2 simvastati n 40 mg qdcontinue d Neurogenic urinary bladder 443245633 N31.8 abdi cath and care Sick sinus syndrome 3608 3008 I49.5 hx of with pacer in place [id number] LEESA Lynch at [facility] on [address] [place] [address] 03/19/2024 09:16:20 03/20/2024 09:36:50 Clostridium difficile colitis 702177994 A04.72 stools resolvedmo nitor for recurrent loose stool Acute kidney injury 1466 9001 N17.8 labs pending todaylast labs in range 21/0.60 Idiopathic avascular necrosis of bone 7365899897 M87.852 avascular necrosis left femoral head on imaging was seen by ortho now with plan to f/u for replacemen tcontinue PT OT see HPI Atrial fibrillation 4943 6004 I48.0 xarelto 20 mg qdmetoprol ol 50 mg bidrate controlled at 79 [id number] LEESARUSH Lynch at [facility] on [address] [place] [address] 03/22/2024 11:37:26 03/25/2024 11:02:46 Acute kidney injury 36208504 N17.8 stable for patientlas t labs in range 24/0.80enc ourage PO fluids Idiopathic avascular necrosis of bone 9885839792 M87.852 continue PTPt ambulated short distances up to 30' within room x4 trials, RW, SBA with cues for improved [id number] 30: Car transfer scheduled for this date [...] ol 50 mg bidrate controlled at [id number] LEESA Lynch at [facility] on [address] [place] [address] 03/27/2024 12:47:31 03/28/2024 13:18:07 Acute kidney injury 89441194 N17.8 no labs this week for some reason-add cbc bmp tomorrow 03/28 Atrial fibrillation 4943 6004 I48.0 see HPI- had nuclear stress test today, will follow up tomorrow with goldieconalex tane amiodarone 125 mg every other day per cardsxarel to 20 mg qdmetoprol ol 50 mg bid Cough 06733247 R05.9 STAT chest xray two viewsadd cbc with bmp tomorrowsw ab for flu and covid nowmonitor resp status Nausea 689987131 R11.0 continue prn compazine and re-eval in 30 days [id number] LEESA Lynch at [facility] on [address] [place] [address] 03/28/2024 09:25:01 03/29/2024 13:23:38 Acute kidney injury 44196351 N17.8 labs pending today Atrial fibrillation 4943 6004 I48.0 see HPI- had nuclear stress test, follow up with cards tomorrowco ntinue amiodarone 125 mg every other day per cardsxarel to 20 mg qdmetoprol ol 50 mg bid Cough 02090552 R05.9 waiting on xray resultsif positive send home with miquel spent greater than 15 minutes discussing postpone of DC with patient and SW, ultimately wants to leave, wrote rx for miquel Nausea 776007249 R11.0 continue prn compazine Idiopathic avascular necrosis of bone 6841131188 M87.852 avascular necrosis left femoral head on imaging was seen by ortho now with plan to f/u for replacemen t Abdominal aortic aneurysm 334066109 I71.43 followed by [facility] vascular Asthenia 30685008 R53.1 improved Chronic ki dney disease stage 3A 125278201 N18.31 carrying dx with recent ARFPCP to follow labs Chronic ob structive pulmonary disease 38090261 J41.1 added to PMH History of malignant neoplasm of uterine body 471776492 Z85.42 added to PMH Gastroesop hageal reflux disease without esophagitis 411861955 K21.9 pantoprazo le 40 mg qd Essential hypertension 91197614 I10 metoprolol 50 mg bid Mixed hyperlipidemia 267 725581 E78.2 simvastati n 40 mg qdcontinue d Neurogenic urinary bladder 996180937 N31.8 abdi cath and care Sick sinus syndrome 3608 3008 I49.5 hx of with pacer in place [id number] [facility] [address] [place] [address] 04/08/2024 13:58:51 04/09/2024 13:16:49 Acute kidney injury 04528785 N17.8 hxlikely in setting of dehydratio n from diarrheacb c bmp weekly x 3 monitor Atrial fibrillation 4943 6004 I48.0 digoxin 125 mcg qodxarelto 20 mg qdmetoprol ol 50 mg bid Idiopathic avascular necrosis of bone 8079356464 M87.852 PT/OT eval and treatchole calciferol 25 mcg qdhydrocod one tyl q 6 hours prn painsuppor tive caremonito r Clostridiu m difficile colitis 905685108 A04.72 tested neg for cdif this admission, had it last admissions tools improving 1-2 per dayvanomyc in po for 2 more dosesmonit or for recurrent loose stool Abdominal aortic aneurysm 494072591 I71.43 [facility] pt with Dr Crook per pt coming upmonitor Asthenia 98600275 R53.1 PT OT eval and treatmonit or fall risk and need for increased support in community Chronic ki dney disease stage 3A 904928742 N18.31 carrying dx with recent ARFmonitor renal functionav oid nephrotoxi c meds as ablenephro consult prn Chronic ob structive pulmonary disease 89815011 J41.1 albuterol prnmonitor History of malignant neoplasm of uterine body 671878461 Z85.42 hx of Gastroesop hageal reflux disease without esophagitis 686019701 K21.9 pantoprazo le 40 mg qdmonitor for sx relief Essential hypertension 02214125 I10 metoprolol 50 mg bidmonitor bp and need to titrate Mixed hyperlipidemia 267 835280 E78.2 simvastati n 40 mg qdcontinue d Neurogenic urinary bladder 038132205 N31.8 abdi cath and carechange monthly per regular regimenmon itor for s/s of infection Sick sinus syndrome 3608 3008 I49.5 hx of with pacer in place Iron defic iency anemia 59782161 D50.9 ferrous sulfate qdvit c qdmonitor labs Recurrent depression 191 910347 F32.A lexapro 10 mg po qdmonitorp sych prn Pneumonia 126679002 J18. 9 with sepsis pneumoniah ad course of ceftriaxon e in hospalb prnduoneb q 4 hours prnmonitor cbc and bmp weekly x 3 Recurrent falls 83131618 2 R29.6 pt with falls from home and very deconditio nedPT OT eval and treatsuppo rtive caremonito r [id number] Jonah Khan MD [address] [address] 04/13/2024 08:22:12 04/16/2024 10:05:52 Sepsis 55882199 A41.89 complete course of abxmonitor for recurrent infection Asthenia 20937286 R53.1 PT OT eval and treatmonit or fall risk and need for increased support in community Clostridiu m difficile colitis 787845886 A04.72 concern for sepsis secondary to c diff underwent treatment then question if colonized at [facility] for sxcomplete course of PO vanco Acute kidney injury 1466 9001 N17.8 ARF on CRFimprove d with IVFmonitor renal function Idiopathic avascular necrosis of bone 9013717917 M87.852 avascular necrosis left femoral head on imaging was seen by ortho now with plan to f/u for replacemen tcoordinat e care Abdominal aortic aneurysm 990438983 I71.43 [facility] vascular[facility] ded to PMH Atrial fibrillation 4943 6004 I48.0 xarelto 20 mg qdmetoprol ol 50 mg bidmonitor for rate control Chronic ki dney disease stage 3A 422714140 N18.31 carrying dx with recent ARFmonitor renal functionav oid nephrotoxi c meds as ablenephro consult prn Chronic ob structive pulmonary disease 13806256 J41.1 added to PMHmonitor utilizatio n of albuterol History of malignant neoplasm of uterine body 773100906 Z85.42 added to PMH Gastroesop hageal reflux disease without esophagitis 065600866 K21.9 pantoprazo le 40 mg qdmonitor for sx relief Essential hypertension 69707344 I10 metoprolol 50 mg bidmonitor bp and need to titrate Mixed hyperlipidemia 267 922588 E78.2 simvastati n 40 mg qdcontinue d Neurogenic urinary bladder 985920580 N31.8 abdi cath and care Sick sinus syndrome 3608 3008 I49.5 hx of with pacer in place [id number] DERIAN BEE NP [facility] [address] [address] 04/17/2024 15:45:04 04/18/2024 14:24:58 Sepsis 26234997 A41.89 completed course of abxmonitor for recurrent infectionV SS, clinically stableChec k labs prn Idiopathic avascular necrosis of bone 6811200134 M87.852 avascular necrosis left femoral head on imaging was seen by ortho now with plan to f/u for replacemen tcoordinat e care with OrthoPT OT eval and tx. Asthenia 29339310 R53.1 PT OT eval and treatmonit or fall risk and need for increased support in community Clostridiu m difficile colitis 833298862 A04.72 concern for sepsis secondary to c diff underwent treatment then question if colonized at [facility] for sxcomplete d course of PO vanco Acute kidney injury 1466 9001 N17.8 ARF on CRFimprove d with IVFmonitor renal function Abdominal aortic aneurysm 095806091 I71.43 [facility] vascular[facility] ded to PMH Atrial fibrillation 4943 6004 I48.0 xarelto 20 mg qdmetoprol ol 50 mg bidmonitor for rate control Chronic ki dney disease stage 3A 356489144 N18.31 carrying dx with recent ARFmonitor renal functionav oid nephrotoxi c meds as ablenephro consult prn Chronic ob structive pulmonary disease 97585119 J41.1 added to PMHmonitor utilizatio n of albuterol History of malignant neoplasm of uterine body 905825718 Z85.42 added to PMH Gastroesop hageal reflux disease without esophagitis 448753992 K21.9 pantoprazo le 40 mg qdmonitor for sx relief Essential hypertension 23958178 I10 metoprolol 50 mg bidmonitor bp and need to titrate Mixed hyperlipidemia 267 099345 E78.2 simvastati n 40 mg qdcontinue d Neurogenic urinary bladder 411295903 N31.8 abdi cath and carecontin ue methenamin e 1 gm qd for UTI proph. Sick sinus syndrome 3608 3008 I49.5 hx of with pacer in place [id number] DERIAN BEE NP [facility] [address] [place] [address] 04/24/2024 10:46:51 04/26/2024 14:47:06 Sepsis 34161648 A41.89 resolved.c ompleted course of abxmonitor ing for recurrent infectionV SS, clinically stableChec k labs prn Idiopathic avascular necrosis of bone 3793325961 M87.852 avascular necrosis left femoral head on imaging was seen by ortho now with plan to f/u for replacemen tcoordinat e care with OrthoPT OT eval and tx.Monitor pain, [facility] Asthenia 03947711 R53.1 Continue PT OTmonitor fall risk and need for increased support in community Clostridiu m difficile colitis 243128413 A04.72 concern for sepsis secondary to c diff underwent treatment then question if colonized at [facility] for sxcomplete d course of PO vanco Acute kidney injury 1466 9001 N17.8 ARF on CRFimprove d with IVFmonitor renal functionav oid nephrotoxi cs Abdominal aortic aneurysm 759224009 I71.43 [facility] vascular[facility] ded to PMH Atrial fibrillation 4943 6004 I48.0 Continue:x arelto 20 mg qdmetoprol ol 50 mg bidmonitor for rate control Chronic ki dney disease stage 3A 892276562 N18.31 carrying dx with recent ARFmonitor renal functionav oid nephrotoxi c meds as ablenephro consult prn Chronic ob structive pulmonary disease 68975797 J41.1 added to PMHmonitor utilizatio n of albuterol History of malignant neoplasm of uterine body 080300058 Z85.42 added to PMH Gastroesop hageal reflux disease without esophagitis 306331003 K21.9 pantoprazo le 40 mg qdmonitor for sx relief Essential hypertension 26485604 I10 continue metoprolol 50 mg bidmonitor bp and need to titrate Mixed hyperlipidemia 267 115638 E78.2 simvastati n 40 mg qdcontinue d Neurogenic urinary bladder 180353629 N31.8 Chronic - indwelling abdi cath x yrs.contin ue methenamin e 1 gm qd for UTI proph. Sick sinus syndrome 3608 3008 I49.5 hx of with pacer in place Insomnia 925376146 G47.0 9 Pt. requesting sleep aid - add melatonin 5 mg q HS prnMonitor use and effect. Cramp in lower limb 4499 79304 R25.2 In calves, comes and goes, gets some relief when legs moved and stretched. Already on Fe, vitamin/mi neral supplement s.Also on statin.Elle ck labs - CBC, BMP Mg FeContinue to monitor closelyCon teaching dietitian tonic water prnArchie dum - will add tizanidine 2 mg q hs prn for now - monitor use and effect. [id number] Abby Razo, GABBY [facility] [address] [address] 04/29/2024 12:34:25 05/01/2024 15:15:14 Sepsis 17674938 A41.89 resolved.c ompleted course of abx Insomnia 136443393 G47.0 9 while her melatonin addedcontm elatonin 5 mg q HS prnMonitor use and effect outpt with pcp Cramp in lower limb 4499 76931 R25.2 In calves, comes and goes, gets some relief when legs moved and stretched. resolvingA lready on Fe, vitamin/mi neral supplement s.Also on statin.add ed tizanidine 2 mg q hs prn here with effect will continue prnfu with pcp outpt Idiopathic avascular necrosis of bone 3962150623 M87.852 avascular necrosis left femoral head on imaging was seen by ortho now with plan to f/u for replacemen t=coordina te care with Ortho for future surgeryPT OT eval and tx. prn outptMonit or outpt with pcp and fu with ortho on 05/06hydroc odone/tyl 1 tab q 6 hours prn Asthenia 17660845 R53.1 Continue PT OTmonitor fall risk and need for increased support in community Clostridiu m difficile colitis 603892649 A04.72 resolvedco ncern for sepsis secondary to c diff underwent treatment then question if colonized at [facility] for sxcomplete d course of PO vanco and symptomati c Acute kidney injury 1466 9001 N17.8 ARF resolvedAR F on CRFimprove d with IVFmonitor renal functionav oid nephrotoxi csfu with pcp Abdominal aortic aneurysm 655302768 I71.43 followed by [facility] vascular Atrial fibrillation 4943 6004 I48.0 Continue:x arelto 20 mg qdmetoprol ol 50 mg bidmonitor for rate controlfu with pcp Chronic ki dney disease stage 3A 854929292 N18.31 carrying dx with recent ARFmonitor renal functionav oid nephrotoxi c meds as ablenephro consult prnfu with pcp Chronic ob structive pulmonary disease 33517901 J41.1 hx ofmonitor utilizatio n of albuterolf u with pcp History of malignant neoplasm of uterine body 319162790 Z85.42 hx ofchronic foleyfu with pcp Gastroesop hageal reflux disease without esophagitis 057531488 K21.9 pantoprazo le 40 mg qdmonitor for sx relief wtih pcp outpt Essential hypertension 73226255 I10 continue metoprolol 50 mg bidmonitor bp and need to titrate outpt with pcp Mixed hyperlipidemia 267 853360 E78.2 simvastati n 40 mg qdcontinue d with pcp outpt Neurogenic urinary bladder 027245476 N31.8 Chronic - indwelling abdi cath x [...] Ruiz Member ID Guarantor Name 04/08/2024 1 [facility] MEDICARE PREFERRED (MEDICARE REPLACEMENT HMO) PRAKASH Jung [id number] Trupti Jung 04/13/2024 1 [facility] MEDICARE PREFERRED (MEDICARE REPLACEMENT HMO) PRAKASH Jnug [id number] Trupti Jung 04/17/2024 1 [facility] MEDICARE PREFERRED (MEDICARE REPLACEMENT HMO) PRAKASH Jung [id number] Trupti Jung 04/24/2024 1 [facility] MEDICARE PREFERRED (MEDICARE REPLACEMENT HMO) PRAKASH Jung [id number] Trupti Jung 04/29/2024 1 [facility] - MEDICARE PREFERRED (MEDICARE REPLACEMENT HMO) PRAKASH Jung [id number] Trupti Jung Notes Date Note Type Note Provider Name and Address Organization Details Recorded Time 04/08/2024 text/html Patient is a 73 yo female seen today for an initial intake visit. PMH significant for AAA follow by [facility] vascular, a fib, crf stage , copd, gerd, hx uterine ca,hld, htn, neurogenic bladder with abdi, SSS s/p pacer, avascualar necrosis of left hip Trupti is a 73 yo f here at [facility] for rehab post [facility] admission for recent hospitalization 02/27-03/03 for c diff sepsis and dc to rehab at [facility] one subsequently dc'd on 03/28/24. Since discharged from home she returned to the [facility] on 03/29/24- for [...] okayMORSE: high riskBIMS Abby Razo NP [address], [address], [place], [address], [facility] [employer] 04/08/2024 20:42:30 04/13/2024 text/html Patient is a [...] diff prophylaxis PMH significant forAAA follow by [facility] fibcrf stage 3copdgerdhx uterine cahldhtnneurogenic bladder with foleySSS s/p pacer admit to facility for continued care and therapy Jonah Khan MD [address], [address], [place], [address], [facility] 04/13/2024 08:34:24 04/17/2024 text/html Trupti is [...] 04/08 stable. PMH significant forAAA follow by [facility] fibcrf stage 3copdgerdhx uterine cahldhtnneurogenic bladder with foleySSS s/p pacer admit to facility for continued care and therapy DERIAN BEE NP [address], [address], [place], [address], [facility] 04/17/2024 15:56:56 04/24/2024 text/html Trupti is [...] med changes. PMH significant forAAA [facility] [facility] 3copdgerdhx uterine cahldhtnneurogenic bladder with foleySSS s/p pacer DERIAN BEE NP [address] [place] [address], [address], [place], [address], [facility] 04/24/2024 14:07:19 04/29/2024 text/html Trupti is see n today for a discharge visit. PMH significant for AAA follow by [facility] vascular, a fib, crf stage , [...] diff prophylaxis. She was admitted to to [facility] for rehab and care. Since here [...] pain and spasms. Abby Razo NP [address] [facility], [address], [place], [address], [facility] 05/01/2024 12:03:58 OBGyn Episode No OBEpisode recorded.
[2024-06-28 16:59] LABS: Anion Gap 13 (12-20); Blood Urea Nitrogen 16 mg/dL (9-16); Calcium 8.4 mg/dL (8.4-10.2); Carbon Dioxide 24 mmol/L (22-29); Chloride 109 mmol/L (96-108); Estimated Glomerular Filt Rate > 60; Glucose Random 93 mg/dL (60-115); Magnesium 1.9 mg/dL (1.6-2.6); Potassium 4.6 mmol/L (3.3-5.1); Sodium 141 mmol/L (135-145)
== END 2024-06-28 15:14 | disposition home or self-care (01) ==
LOC: HO.HMGCLDS 15:13
PROVIDERS: PCP Internal Medicine; Visit Provider Internal Medicine
DX: E87.5 Hyperkalemia (principal)
CPT/HCPCS: 36415; 80048; 83735

== ENCOUNTER 2024-07-17 13:35 | Outpatient (REF) | payer MEDICARE, OTHER, SELFPAY ==
--- OUTSIDE RECORDS SUMMARY | 2024-07-17 15:23 | XMS_ITS | Data Portability ---
Author Organization [facility] [employer] [facility], Main Office Address [address] [place] [address] Care Team Providers Care Gear Setter Name Role Phone PRITI SYLVESTER Primary Care [...] bone Active 2024 Ivanna Gutierrez MD [address] [facility], [address], [place], [address] , [facility] [employer] 5 18:57:44 Abdominal aortic aneurysm 966604238 Active 2024 Jonah Khan MD [address] [facility], [address], [place], [address] , [facility] [employer] 5 15:23:25 Atrial fibrillation 77393939 Active 2024 Jonah Khan MD [address] [facility], [address], [place], [address] , [facility] [employer] 5 15:24:30 Chronic kidney disease stage 3A 771459084 Active 2024 Jonah Khan MD [address] [facility], [address], [place], [address] , [facility] [employer] 5 15:24:38 Chronic obstructive pulmonary disease 87406676 Active 2024 Jonah Khan MD [address] [facility], [address], [place], [address] , [facility] 5 15:24:43 History of malignant neoplasm of uterine body 483150432 Active 2024 Jonah Khan MD [address], [address], [place], [address] , [facility] 5 15:24:52 Gastroesophag eal reflux disease without esophagitis 254141948 Active 2024 Jonah Khan MD [address], [place], [address] , [facility] 5 15:24:57 Essential hypertension 43455273 Active 2024 Jonah Khan MD [address] [facility], [address], [place], [address] , [facility] 5 15:25:03 Mixed hyperlipidemi a 838964447 Active 2024 Jonah Khan MD [address] [facility], [address], [place], [address] , [facility] 5 15:25:10 Neurogenic urinary bladder 830328805 Active 2024 Jonah Khan MD [address] [facility], [address], [place], [address] , [facility] 5 15:25:20 Sick sinus syndrome 61951695 Active 2024 Jonah Khan MD [address] [facility], [address], [place], [address] , [facility] 5 15:25:25 Osteonecrosis of hip 607646262 Active 2024 Not Available [facility] 5 08:55:23 Intestinal obstruction 01390845 Active 2024 Not Available [facility] 5 08:48:53 Recurrent bacterial infection 167398928 Active 2024 Not Available [facility] 5 08:49:58 Hypo-osmolali ty and or hyponatremia 253215715 Active 2024 Not Available [facility] 5 08:50:29 Muscle weakness 65723124 Active 2024 Not Available [facility] 5 08:51:14 Dysphagia 19443658 Active 2024 Not Available [facility] 5 08:51:44 Unsteady when standing 951302300 Active 2024 Not Available [facility] 5 08:52:15 Chronic kidney disease stage 3 636774237 Active 2024 Not Available [facility] 5 08:53:48 Abdominal aortic aneurysm without rupture 69562471 Active 2024 Not Available [facility] 5 08:54:19 Hyperlipidemi a 44793817 Active 2024 Not Available [facility] 5 08:54:20 Iron deficiency anemia 46646487 Active 2024 Not Available [facility] 5 12:58:42 Recurrent depression 434754206 Active 2024 Not Available [facility] 5 12:58:44 Pneumonia 467182416 Active 2024 Abby Razo NP [address] [facility], [address], [place], [address] , [facility] 5 20:37:34 Notes:Some problems listed i n Documents: #[id number], #[id number] could not be added to this patient's [...] Address Organization Details Last Updated DateTime 5 768974. 72 g 68 /min 18 /min 97.5 [degF] 96 % 96 % 121 mm[Hg] 82 mm[Hg] Abby Razo, GABBY [address] [facility], [address], [place], [address], [facility] 5 14:01:27 Date Recorded Systolic blood pressure Diastolic blood pressure Provider Name and Address Organization Details Last Updated DateTime 04/13/2024 93 mm[Hg] 76 mm[Hg] Jonah Khan MD [address] [facility], [address], [place], [address], [facility] 04/13/2024 08:22:45 Date Recorded Heart rate Respiratory rate Body temperature Oxygen saturation Oxygen saturation in Arterial blood by Pulse oximetry Systolic blood pressure Diastolic blood pressure Provider Name and Address Organization Details Last Updated DateTime 5 96 /min 18 /min 98.5 [degF] 97 % 97 % 101 mm[Hg] 78 mm[Hg] DERIAN BEE NP [address] [facility], [address], [place], [address], [facility] 5 15:46:11 Date Recorded Heart rate Respiratory rate Body temperature Oxygen saturation Oxygen saturation in Arterial blood by Pulse oximetry Systolic blood pressure Diastolic blood pressure Provider Name and Address Organization Details Last Updated DateTime 5 94 /min 18 /min 97.6 [degF] 94 % 94 % 109 mm[Hg] 81 mm[Hg] DERIAN BEE NP [address] [facility], [address], [place], [address], [facility] 5 13:05:59 Date Recorded Body weight Heart rate Respiratory rate Body temperature Oxygen saturation Oxygen saturation in Arterial blood by Pulse oximetry Systolic blood pressure Diastolic blood pressure Provider Name and Address Organization Details Last Updated DateTime 5 11606.6 3 g 76 /min 18 /min 98.3 [degF] 96.99 % 96.99 % 128 mm[Hg] 70 mm[Hg] Abby Razo NP [address] [facility], [address], [place], [address], [facility] 5 12:35:40 Social History Question Answer Notes LastModified by Organization Details LastModified Time Tobacco Smoking Status Never Smoker Jonah Khan MD [address], [address], [place], [address], [facility] 03/12/2024 15:37:56 Do You Have An Advance Directive? No Information not available 03/12/2024 What Is Your Code Status? Full Code No Art Nutrition Information not available 04/08/2024 Where Do You Live? SingleLevelHouse Information not available 04/08/2024 Do You Have A Medical Power Of Furnace Filler? No Information not available 04/08/2024 What Was [...] SARS-COV-2 (COVID-19) vaccine, UNSPECIFIED 03/06/2020 [facility] 03/12/2024 15:19:00 SARS-COV-2 (COVID-19) vaccine, UNSPECIFIED 04/06/2020 [facility] 03/12/2024 15:19:19 SARS-COV-2 (COVID-19) vaccine, UNSPECIFIED 01/19/2021 dev [facility] 03/12/2024 15:19:30 SARS-COV-2 (COVID-19) vaccine, UNSPECIFIED 07/08/2021 dev [facility] 03/12/2024 15:19:37 Past Encounters Encounter ID Performer Location Encounter Start Date Encounter Closed Date Diagnosis/Indication Diagnosis SNOMED-CT Code Diagnosis ICD10 Code Diagnosis Note [id number] MD Syed Mclean at [facility] on [address] [place] [address] 03/12/2024 14:57:39 03/13/2024 09:59:50 Clostridium difficile colitis 457302547 A04.72 concern for sepsis secondary to c diff underwent treatment then question if colonized at [facility] for sxcomplete course of PO vanco Acute kidney injury 1466 9001 N17.8 ARF on CRFimprove d with IVFmonitor renal function Idiopathic avascular necrosis of bone 1773509498 M87.852 avascular necrosis left femoral head on imaging was seen by ortho now with plan to f/u for replacemen t Abdominal aortic aneurysm 831331739 I71.43 [facility]H Asthenia 78674153 R53.1 PT OT eval and treatmonit or fall risk and need for increased support in community Atrial fibrillation 4943 6004 I48.0 xarelto 20 mg qdmetoprol ol 50 mg bidmonitor for rate controlreq uired IV lopressor in hospital Chronic ki dney disease stage 3A 303532913 N18.31 carrying dx with recent ARFmonitor renal functionav oid nephrotoxi c meds as ablenephro consult prn Chronic ob structive pulmonary disease 05637792 J41.1 added to PMHmonitor utilizatio n of albuterol History of malignant neoplasm of uterine body 644789418 Z85.42 added to PMH Gastroesop hageal reflux disease without esophagitis 512389219 K21.9 pantoprazo le 40 mg qdmonitor for sx relief Essential hypertension 09863196 I10 metoprolol 50 mg bidmonitor bp and need to titrate Mixed hyperlipidemia 267 157578 E78.2 simvastati n 40 mg qdcontinue d Neurogenic urinary bladder 292175982 N31.8 abdi cath and care Sick sinus syndrome 3608 3008 I49.5 hx of with pacer in place [id number] LEESA Lynch at [facility] on [address] [place] [address] 03/19/2024 09:16:20 03/20/2024 09:36:50 Clostridium difficile colitis 322709617 A04.72 stools resolvedmo nitor for recurrent loose stool Acute kidney injury 1466 9001 N17.8 labs pending todaylast labs in range 21/0.60 Idiopathic avascular necrosis of bone 8138395235 M87.852 avascular necrosis left femoral head on imaging was seen by ortho now with plan to f/u for replacemen tcontinue PT OT see HPI Atrial fibrillation 4943 6004 I48.0 xarelto 20 mg qdmetoprol ol 50 mg bidrate controlled at 79 [id number] LEESARUSH Lynch at [facility] on [address] [place] [address] 03/22/2024 11:37:26 03/25/2024 11:02:46 Acute kidney injury 80751553 N17.8 stable for patientlas t labs in range 24/0.80enc ourage PO fluids Idiopathic avascular necrosis of bone 3326047036 M87.852 continue PTPt ambulated short distances up to 30' within room x4 trials, RW, SBA with cues for improved [id number] 30: Car transfer scheduled for this date [...] ol 50 mg bidrate controlled at 79 [id number] LEESA Lynch at [facility] on [address] [place] [facility] [address] 03/27/2024 12:47:31 03/28/2024 13:18:07 Acute kidney injury 30548351 N17.8 no labs this week for some reason-add cbc bmp tomorrow 03/28 Atrial fibrillation 4943 6004 I48.0 see HPI- had nuclear stress test today, will follow up tomorrow with goldieconalex tane amiodarone 125 mg every other day per cardsxarel to 20 mg qdmetoprol ol 50 mg bid Cough 21040229 R05.9 STAT chest xray two viewsadd cbc with bmp tomorrowsw ab for flu and covid nowmonitor resp status Nausea 800973740 R11.0 continue prn compazine and re-eval in 30 days [id number] LEESA Lynch at [facility] on [address] [facility] [address] 03/28/2024 09:25:01 03/29/2024 13:23:38 Acute kidney injury 56602159 N17.8 labs pending today Atrial fibrillation 4943 6004 I48.0 see HPI- had nuclear stress test, follow up with cards tomorrowco ntinue amiodarone 125 mg every other day per cardsxarel to 20 mg qdmetoprol ol 50 mg bid Cough 81934092 R05.9 waiting on xray resultsif positive send home with miquel spent greater than 15 minutes discussing postpone of DC with patient and SW, ultimately wants to leave, wrote rx for miquel Nausea 225208576 R11.0 continue prn compazine Idiopathic avascular necrosis of bone 1179848257 M87.852 avascular necrosis left femoral head on imaging was seen by ortho now with plan to f/u for replacemen t Abdominal aortic aneurysm 125426165 I71.43 followed [facility] vascular Asthenia 66480552 R53.1 improved Chronic ki dney disease stage 3A 211918784 N18.31 carrying dx with recent ARFPCP to follow labs Chronic ob structive pulmonary disease 02026193 J41.1 added to PMH History of malignant neoplasm of uterine body 486222087 Z85.42 added to PMH Gastroesop hageal reflux disease without esophagitis 195339115 K21.9 pantoprazo le 40 mg qd Essential hypertension 75498417 I10 metoprolol 50 mg bid Mixed hyperlipidemia 267 939089 E78.2 simvastati n 40 mg qdcontinue d Neurogenic urinary bladder 676364612 N31.8 abdi cath and care Sick sinus syndrome 3608 3008 I49.5 hx of with pacer in place [id number] [facility] [address] [place] [address] 04/08/2024 13:58:51 04/09/2024 13:16:49 Acute kidney injury 09162146 N17.8 hxlikely in setting of dehydratio n from diarrheacb c bmp weekly x 3 monitor Atrial fibrillation 4943 6004 I48.0 digoxin 125 mcg qodxarelto 20 mg qdmetoprol ol 50 mg bid Idiopathic avascular necrosis of bone 3828292629 M87.852 PT/OT eval and treatchole calciferol 25 mcg qdhydrocod one tyl q 6 hours prn painsuppor tive caremonito r Clostridiu m difficile colitis 572909115 A04.72 tested neg for cdif this admission, had it last admissions tools improving 1-2 per dayvanomyc in po for 2 more dosesmonit or for recurrent loose stool Abdominal aortic aneurysm 076276503 I71.43 [facility] pt with Dr Crook per pt coming upmonitor Asthenia 62326920 R53.1 PT OT eval and treatmonit or fall risk and need for increased support in community Chronic ki dney disease stage 3A 932301196 N18.31 carrying dx with recent ARFmonitor renal functionav oid nephrotoxi c meds as ablenephro consult prn Chronic ob structive pulmonary disease 15751059 J41.1 albuterol prnmonitor History of malignant neoplasm of uterine body 562346855 Z85.42 hx of Gastroesop hageal reflux disease without esophagitis 733170888 K21.9 pantoprazo le 40 mg qdmonitor for sx relief Essential hypertension 26113897 I10 metoprolol 50 mg bidmonitor bp and need to titrate Mixed hyperlipidemia 267 125431 E78.2 simvastati n 40 mg qdcontinue d Neurogenic urinary bladder 685601257 N31.8 abdi cath and carechange monthly per regular regimenmon itor for s/s of infection Sick sinus syndrome 3608 3008 I49.5 hx of with pacer in place Iron defic iency anemia 92905106 D50.9 ferrous sulfate qdvit c qdmonitor labs Recurrent depression 191 779499 F32.A lexapro 10 mg po qdmonitorp sych prn Pneumonia 884344227 J18. 9 with sepsis pneumoniah ad course of ceftriaxon e in hospalb prnduoneb q 4 hours prnmonitor cbc and bmp weekly x 3 Recurrent falls 93363057 2 R29.6 pt with falls from home and very deconditio nedPT OT eval and treatsuppo rtive caremonito r [id number] Jonah Khan MD [address] [address] 04/13/2024 08:22:12 04/16/2024 10:05:52 Sepsis 46032807 A41.89 complete course of abxmonitor for recurrent infection Asthenia 74854445 R53.1 PT OT eval and treatmonit or fall risk and need for increased support in community Clostridiu m difficile colitis 035670045 A04.72 concern for sepsis secondary to c diff underwent treatment then question if colonized at [facility] for sxcomplete course of PO vanco Acute kidney injury 1466 9001 N17.8 ARF on CRFimprove d with IVFmonitor renal function Idiopathic avascular necrosis of bone 8293235644 M87.852 avascular necrosis left femoral head on imaging was seen by ortho now with plan to f/u for replacemen tcoordinat e care Abdominal aortic aneurysm 708457052 I71.43 [facility] vascularad ded to PMH Atrial fibrillation 4943 6004 I48.0 xarelto 20 mg qdmetoprol ol 50 mg bidmonitor for rate control Chronic ki dney disease stage 3A 070006571 N18.31 carrying dx with recent ARFmonitor renal functionav oid nephrotoxi c meds as ablenephro consult prn Chronic ob structive pulmonary disease 63141395 J41.1 added to PMHmonitor utilizatio n of albuterol History of malignant neoplasm of uterine body 116482391 Z85.42 added to PMH Gastroesop hageal reflux disease without esophagitis 819708214 K21.9 pantoprazo le 40 mg qdmonitor for sx relief Essential hypertension 62850763 I10 metoprolol 50 mg bidmonitor bp and need to titrate Mixed hyperlipidemia 267 268984 E78.2 simvastati n 40 mg qdcontinue d Neurogenic urinary bladder 829884149 N31.8 abdi cath and care Sick sinus syndrome 3608 3008 I49.5 hx of with pacer in place [id number] DERIAN BEE NP [facility] [address] [address] 04/17/2024 15:45:04 04/18/2024 14:24:58 Sepsis 45644044 A41.89 completed course of abxmonitor for recurrent infectionV SS, clinically stableChec k labs prn Idiopathic avascular necrosis of bone 4821536960 M87.852 avascular necrosis left femoral head on imaging was seen by ortho now with plan to f/u for replacemen tcoordinat e care with OrthoPT OT eval and tx. Asthenia 58267812 R53.1 PT OT eval and treatmonit or fall risk and need for increased support in community Clostridiu m difficile colitis 238321725 A04.72 concern for sepsis secondary to c diff underwent treatment then question if colonized at [facility] for sxcomplete d course of PO vanco Acute kidney injury 1466 9001 N17.8 ARF on CRFimprove d with IVFmonitor renal function Abdominal aortic aneurysm 805672666 I71.43 [facility] vascularad ded to PMH Atrial fibrillation 4943 6004 I48.0 xarelto 20 mg qdmetoprol ol 50 mg bidmonitor for rate control Chronic ki dney disease stage 3A 627699978 N18.31 carrying dx with recent ARFmonitor renal functionav oid nephrotoxi c meds as ablenephro consult prn Chronic ob structive pulmonary disease 42570763 J41.1 added to PMHmonitor utilizatio n of albuterol History of malignant neoplasm of uterine body 376083347 Z85.42 added to PMH Gastroesop hageal reflux disease without esophagitis 803764488 K21.9 pantoprazo le 40 mg qdmonitor for sx relief Essential hypertension 74839484 I10 metoprolol 50 mg bidmonitor bp and need to titrate Mixed hyperlipidemia 267 928656 E78.2 simvastati n 40 mg qdcontinue d Neurogenic urinary bladder 397193846 N31.8 abdi cath and carecontin ue methenamin e 1 gm qd for UTI proph. Sick sinus syndrome 3608 3008 I49.5 hx of with pacer in place [id number] DERIAN BEE NP [facility] [address] [place] [address] 04/24/2024 10:46:51 04/26/2024 14:47:06 Sepsis 70440948 A41.89 resolved.c ompleted course of abxmonitor ing for recurrent infectionV SS, clinically stableChec k labs prn Idiopathic avascular necrosis of bone 2777574573 M87.852 avascular necrosis left femoral head on imaging was seen by ortho now with plan to f/u for replacemen tcoordinat e care with OrthoPT OT eval and tx.Monitor pain, [facility] Asthenia 90231345 R53.1 Continue PT OTmonitor fall risk and need for increased support in community Clostridiu m difficile colitis 867441274 A04.72 concern for sepsis secondary to c diff underwent treatment then question if colonized at [facility] for sxcomplete d course of PO vanco Acute kidney injury 1466 9001 N17.8 ARF on CRFimprove d with IVFmonitor renal functionav oid nephrotoxi cs Abdominal aortic aneurysm 773221177 I71.43 [facility] ded to PMH Atrial fibrillation 4943 6004 I48.0 Continue:x arelto 20 mg qdmetoprol ol 50 mg bidmonitor for rate control Chronic ki dney disease stage 3A 977212378 N18.31 carrying dx with recent ARFmonitor renal functionav oid nephrotoxi c meds as ablenephro consult prn Chronic ob structive pulmonary disease 87126628 J41.1 added to PMHmonitor utilizatio n of albuterol History of malignant neoplasm of uterine body 018901736 Z85.42 added to PMH Gastroesop hageal reflux disease without esophagitis 291834733 K21.9 pantoprazo le 40 mg qdmonitor for sx relief Essential hypertension 74403039 I10 continue metoprolol 50 mg bidmonitor bp and need to titrate Mixed hyperlipidemia 267 354668 E78.2 simvastati n 40 mg qdcontinue d Neurogenic urinary bladder 795226829 N31.8 Chronic - indwelling abdi cath x yrs.contin ue methenamin e 1 gm qd for UTI proph. Sick sinus syndrome 3608 3008 I49.5 hx of with pacer in place Insomnia 493357115 G47.0 9 Pt. requesting sleep aid - add melatonin 5 mg q HS prnMonitor use and effect. Cramp in lower limb 4499 59062 R25.2 In calves, comes and goes, gets some relief when legs moved and stretched. Already on Fe, vitamin/mi neral supplement s.Also on statin.Elle ck labs - CBC, BMP Mg FeContinue to monitor closelyCon ring spinner tonic water prnArchie dum - will add tizanidine 2 mg q hs prn for now - monitor use and effect. [id number] Abby Razo, GABBY [facility] [address] [address] 04/29/2024 12:34:25 05/01/2024 15:15:14 Sepsis 30975101 A41.89 resolved.c ompleted course of abx Insomnia 694863610 G47.0 9 while her melatonin addedcontm elatonin 5 mg q HS prnMonitor use and effect outpt with pcp Cramp in lower limb 4499 90648 R25.2 In calves, comes and goes, gets some relief when legs moved and stretched. resolvingA lready on Fe, vitamin/mi neral supplement s.Also on statin.add ed tizanidine 2 mg q hs prn here with effect will continue prnfu with pcp outpt Idiopathic avascular necrosis of bone 0360988488 M87.852 avascular necrosis left femoral head on imaging was seen by ortho now with plan to f/u for replacemen t=coordina te care with Ortho for future surgeryPT OT eval and tx. prn outptMonit or outpt with pcp and fu with ortho on 05/06hydroc odone/tyl 1 tab q 6 hours prn Asthenia 84164199 R53.1 Continue PT OTmonitor fall risk and need for increased support in community Clostridiu m difficile colitis 704450820 A04.72 resolvedco ncern for sepsis secondary to c diff underwent treatment then question if colonized at [facility] for sxcomplete d course of PO vanco and symptomati c Acute kidney injury 1466 9001 N17.8 ARF resolvedAR F on CRFimprove d with IVFmonitor renal functionav oid nephrotoxi csfu with pcp Abdominal aortic aneurysm 979386912 I71.43 followed by [facility] vascular Atrial fibrillation 4943 6004 I48.0 Continue:x arelto 20 mg qdmetoprol ol 50 mg bidmonitor for rate controlfu with pcp Chronic ki dney disease stage 3A 265792216 N18.31 carrying dx with recent ARFmonitor renal functionav oid nephrotoxi c meds as ablenephro consult prnfu with pcp Chronic ob structive pulmonary disease 70044223 J41.1 hx ofmonitor utilizatio n of albuterolf u with pcp History of malignant neoplasm of uterine body 229377822 Z85.42 hx ofchronic foleyfu with pcp Gastroesop hageal reflux disease without esophagitis 540937151 K21.9 pantoprazo le 40 mg qdmonitor for sx relief wtih pcp outpt Essential hypertension 66970970 I10 continue metoprolol 50 mg bidmonitor bp and need to titrate outpt with pcp Mixed hyperlipidemia 267 388478 E78.2 simvastati n 40 mg qdcontinue d with pcp outpt Neurogenic urinary bladder 820697247 N31.8 Chronic - indwelling abdi cath x [...] ID Guarantor Name 04/08/2024 1 [facility] MEDICARE PREFERRED (MEDICARE REPLACEMENT HMO) PRAKASH Jung [id number] Trupti Jung 04/13/2024 1 [facility] MEDIC[facility] PREFERRED (MEDICARE REPLACEMENT HMO) PRAKASH Jung [id number] Trupti Jung 04/17/2024 1 [facility] MED[facility] PREFERRED (MEDICARE REPLACEMENT HMO) PRAKASH Jung [id number] Trupti Jung 04/24/2024 1 [facility] MED[facility] PREFERRED (MEDICARE REPLACEMENT HMO) PRAKASH Jung [id number] Trupti Jung 04/29/2024 1 [facility] - MEDICARE PREFERRED (MEDICARE REPLACEMENT HMO) PRAKASH Jung [id number] Trupti Jung Notes Date Note Type Note Provider Name and Address Organization Details Recorded Time 04/08/2024 text/html Patient is a 73 yo female seen today for an initial intake visit. PMH significant for AAA follow by [facility] vascular, a fib, crf stage , copd, gerd, hx uterine ca,hld, htn, neurogenic bladder with abdi, SSS s/p pacer, avascualar necrosis of left hip Trupti is a 73 yo f here at [facility] for rehab post [facility] admission for recent hospitalization 02/27-03/03 for c diff sepsis and dc to rehab at [facility] one subsequently dc'd on 03/28/24. Since discharged from home she returned to the [facility] ER on 03/29/24- for progressively weak, persistent [...] okayMORSE: high riskBIMS Abby Razo NP [address] [facility], [address], [place], [address], [facility] [employer] 04/08/2024 20:42:30 04/13/2024 text/html Patient is a [...] diff prophylaxis PMH significant forAAA follow by [facility] fibcrf stage 3copdgerdhx uterine cahldhtnneurogenic bladder with foleySSS s/p pacer admit to facility for continued care and therapy Jonah Khan MD [address] [facility], [address], [place], [address], [facility] 04/13/2024 08:34:24 04/17/2024 text/html Trupti is [...] 04/08 stable. PMH significant forAAA follow by [facility] fibcrf stage 3copdgerdhx uterine cahldhtnneurogenic bladder with foleySSS s/p pacer admit to facility for continued care and therapy DERIAN BEE NP [address] [facility], [address], [place], [address], [facility] 04/17/2024 15:56:56 04/24/2024 text/html Trupti is [...] med changes. PMH significant forAAA follow by [facility] vasculara fibcrf stage 3copdgerdhx uterine cahldhtnneurogenic bladder with foleySSS s/p pacer DERIAN BEE NP [address] [place] [address], [address], [place], [address], [facility] 04/24/2024 14:07:19 04/29/2024 text/html Trupti is see n today for a discharge visit. PMH significant for AAA follow by [facility] vascular, a fib, crf stage , [...] to to [facility] for rehab and care. Since here Trupti [...] pain and spasms. Abby Razo NP [address] [facility], [address], [place], [address], [facility] 05/01/2024 12:03:58 OBGyn Episode No OBEpisode recorded.
[2024-07-17 16:06] LABS: Potassium 4.7 mmol/L (3.3-5.1)
== END 2024-07-17 13:36 | disposition home or self-care (01) ==
LOC: HO.HMGCLDS 13:35
PROVIDERS: PCP Internal Medicine; Visit Provider Internal Medicine
DX: E87.5 Hyperkalemia (principal); I10 Essential (primary) hypertension
CPT/HCPCS: 36415; 84132

== ENCOUNTER 2024-08-23 11:52 | Day surgery (SDC) | payer MEDICARE, SELFPAY ==
--- OUTSIDE RECORDS SUMMARY | 2024-08-08 07:56 | XMS_ITS | Clinical Summary ---
Author Organization [facility] Address [address] [place] [address] Care Team Providers Care Sales Project Engineer Name Role Phone Elena Jacobo COUNTER INSTALLER Primary Care Provider Allergies No known [...] 2 (two) times a day. Active Pancrelipase, Vih-Cfvg-Nktn, (Creon) 1378-[address] Particles Take 1 capsule [...] 84 12/22/2020 11:49 AM EST Temperature 36.7 C (98 F) 12/22/2020 8:45 AM EST Respiratory Rate 18 [...] this topic Medical Devices Implanted Type Area Roll Coating Machine Operator Device Identifier Shelf Expiration Date Model / Serial / Lot Pacemaker Pacemaker Insurance [facility] [place] OUT [facility] NETWORK [facility] MEDIC[facility] Advance Directives * Full Code (Latest Code Status on File) Date Activated Date Inactivated Comments 12/11/2020 8:56 AM Care Teams Sales Project Engineer Relationship Specialty Start Date End Date Elena Jacobo NP [address] [place] [address] PCP - General Adult Health - PA/APNP/COUNTER INSTALLER/DRIVER/MERCHANDISER 12/11/20
--- OUTSIDE RECORDS SUMMARY | 2024-08-08 07:56 | XMS_ITS ---
Author Name [facility] Organization Unknown Encounters Encounter Type Encounter Reason Primary Diagnosis Location Date Inpatient Dyspnea, unspecified [facility] 12/11/2020 Care Team Organization Name Specialty Phone Email Start Date End Da te Command Information 12/11/2020 09/25/2023 [place] [facility] TRINA TRAMMELL Primary Care 12/11/20202020
--- OUTSIDE RECORDS SUMMARY | 2024-08-08 07:56 | XMS_ITS | Encounter Summary ---
Author Organization [facility] Address [address] [place] [address] Phone Care Team Providers Care Sql Consultant Name Role Phone Raffy Orona MD Primary Care Provider [phone] Encounter Details Date Type Department Care Team (Late st Contact Info) Description 11/10/2021 Telephone [facility] [address] [place] [address] Inocente Martínez MD Social History [...] Office Visit [facility] [address] [place] [address] Ck Hunter MD [address] [phone] documented as of this encounter Visit Diagnoses Not on filedocumented in this encounter Care Teams Sql Consultant Relationship Specialty Start Date End Date Raffy Orona MD [address] [place] [address] PCP - General Internal Medicine 06/05/24 documented as of this encounter
--- OUTSIDE RECORDS SUMMARY | 2024-08-08 07:56 | XMS_ITS | Data Portability ---
Author Organization [facility], Main Office Address [address] [place] [address] Care Team Providers Care Rehab Assistant Name Role Phone PRITI SYLVESTER Primary Care Provider MUSTAPHA CORCORAN - 2ND FLOOR OTHER Assessment No [...] bone Active 2024 Ivanna Gutierrez MD [address] , [address], [place], [address] , [facility] 5 18:57:44 Abdominal aortic aneurysm 937018924 Active 2024 Jonah Khan MD [address] , [address], [place], [address] , [facility] 5 15:23:25 Atrial fibrillation 34065067 Active 2024 Jonah Khan MD [address] , [address], [place], [address] , [facility] 5 15:24:30 Chronic kidney disease stage 3A 210963473 Active 2024 Jonah Khan MD [address], [address], [place], [address] , [facility] 5 15:24:38 Chronic obstructive pulmonary disease 52482736 Active 2024 Jonah Khan MD [address], [address], [place], [address] , [facility] 5 15:24:43 History of malignant neoplasm of uterine body 196917074 Active 2024 Jonah Khan MD [address], [address], [place], [address] , [facility] 5 15:24:52 Gastroesophag eal reflux disease without esophagitis 141595048 Active 2024 Jonah Khan MD [address], [address], [place], [address] , [facility] 5 15:24:57 Essential hypertension 42787224 Active 2024 Jonah Khan MD [address], [address], [place], [address] , [facility] 5 15:25:03 Mixed hyperlipidemi a 673663185 Active 2024 Jonah Khan MD [address], [address], [place], [address] , [facility] 5 15:25:10 Neurogenic urinary bladder 767358637 Active 2024 Jonah Khan MD [address], [address], [place], [address] , [facility] 5 15:25:20 Sick sinus syndrome 85241811 Active 2024 Jonah Khan MD [address], [place], [address] , [facility] 5 15:25:25 Osteonecrosis of hip 006322459 Active 2024 Not Available [facility] 5 08:55:23 Intestinal obstruction 64307580 Active 2024 Not Available [facility] 5 08:48:53 Recurrent bacterial infection 823746899 Active 2024 Not Available [facility] 5 08:49:58 Hypo-osmolali ty and or hyponatremia 820388744 Active 2024 Not Available [facility] 5 08:50:29 Muscle weakness 42187057 Active 2024 Not Available [facility] 5 08:51:14 Dysphagia 42702425 Active 2024 Not Available [facility] 5 08:51:44 Unsteady when standing 022842086 Active 2024 Not Available [facility] 5 08:52:15 Chronic kidney disease stage 3 915769908 Active 2024 Not Available [facility] 5 08:53:48 Abdominal aortic aneurysm without rupture 19144395 Active 2024 Not Available [facility] 5 08:54:19 Hyperlipidemi a 03966320 Active 2024 Not Available [facility] 5 08:54:20 Iron deficiency anemia 76631223 Active 2024 Not Available [facility] 5 12:58:42 Recurrent depression 911934339 Active 2024 Not Available [facility] 5 12:58:44 Pneumonia 611969659 Active 2024 Abby Razo NP [address], [address], [place], [address] , [facility] 5 20:37:34 Notes:Some problems listed i n Documents: #[id number], #[id number] could not be added to this patient's [...] Address Organization Details Last Updated DateTime 5 043972. 72 g 68 /min 18 /min 97.5 [degF] 96 % 96 % 121 mm[Hg] 82 mm[Hg] Abby Razo, GABBY [address], [address], [place], [address], [facility] 5 14:01:27 Date Recorded Systolic blood pressure Diastolic blood pressure Provider Name and Address Organization Details Last Updated DateTime 04/13/2024 93 mm[Hg] 76 mm[Hg] Jonah Khan MD [address], [address], [place], [address], [facility] 04/13/2024 08:22:45 Date Recorded Heart rate Respiratory rate Body temperature Oxygen saturation Oxygen saturation in Arterial blood by Pulse oximetry Systolic blood pressure Diastolic blood pressure Provider Name and Address Organization Details Last Updated DateTime 5 96 /min 18 /min 98.5 [degF] 97 % 97 % 101 mm[Hg] 78 mm[Hg] DERIAN BEE NP [address], [address], [place], [address], [facility] 5 15:46:11 Date Recorded Heart rate Respiratory rate Body temperature Oxygen saturation Oxygen saturation in Arterial blood by Pulse oximetry Systolic blood pressure Diastolic blood pressure Provider Name and Address Organization Details Last Updated DateTime 5 94 /min 18 /min 97.6 [degF] 94 % 94 % 109 mm[Hg] 81 mm[Hg] DERIAN BEE NP [address], [address], [place], [address], [facility] 5 13:05:59 Date Recorded Body weight Heart rate Respiratory rate Body temperature Oxygen saturation Oxygen saturation in Arterial blood by Pulse oximetry Systolic blood pressure Diastolic blood pressure Provider Name and Address Organization Details Last Updated DateTime 5 04705.6 3 g 76 /min 18 /min 98.3 [degF] 96.99 % 96.99 % 128 mm[Hg] 70 mm[Hg] Abby Razo NP [address], [address], [place], [address], [facility] 5 12:35:40 Social History Question Answer Notes LastModified by Organization Details LastModified Time Tobacco Smoking Status Never Smoker Jonah Khan MD [address], [address], [place], [address], [facility] 03/12/2024 15:37:56 Do You Have An Advance Directive? No Information not available 03/12/2024 What Is Your Code Status? Full Code No Art Nutrition Information not available 04/08/2024 Where Do You Live? SingleLevelHouse Information not available 04/08/2024 Do You Have A Medical Power Of Image Consultant? No Information not available 04/08/2024 What Was [...] SARS-COV-2 (COVID-19) vaccine, UNSPECIFIED 03/06/2020 dev Reyes [facility] 03/12/2024 15:19:00 SARS-COV-2 (COVID-19) vaccine, UNSPECIFIED 04/06/2020 dev Reyes [facility] 03/12/2024 15:19:19 SARS-COV-2 (COVID-19) vaccine, UNSPECIFIED 01/19/2021 dev Reyes [facility] 03/12/2024 15:19:30 SARS-COV-2 (COVID-19) vaccine, UNSPECIFIED 07/08/2021 dev Reyes [facility] 03/12/2024 15:19:37 Past Encounters Encounter ID Performer Location Encounter Start Date Encounter Closed Date Diagnosis/Indication Diagnosis SNOMED-CT Code Diagnosis ICD10 Code Diagnosis Note [id number] MD Syed Mclean at [facility] on [address] [place] [address] 03/12/2024 14:57:39 03/13/2024 09:59:50 Clostridium difficile colitis 149490704 A04.72 concern for sepsis secondary to c diff underwent treatment then question if colonized at [facility] for sxcomplete course of PO vanco Acute kidney injury 1466 9001 N17.8 ARF on CRFimprove d with IVFmonitor renal function Idiopathic avascular necrosis of bone 7399393461 M87.852 avascular necrosis left femoral head on imaging was seen by ortho now with plan to f/u for replacemen t Abdominal aortic aneurysm 265320474 I71.43 [facility] PMH Asthenia 64111169 R53.1 PT OT eval and treatmonit or fall risk and need for increased support in community Atrial fibrillation 4943 6004 I48.0 xarelto 20 mg qdmetoprol ol 50 mg bidmonitor for rate controlreq uired IV lopressor in hospital Chronic ki dney disease stage 3A 954959166 N18.31 carrying dx with recent ARFmonitor renal functionav oid nephrotoxi c meds as ablenephro consult prn Chronic ob structive pulmonary disease 95362314 J41.1 added to PMHmonitor utilizatio n of albuterol History of malignant neoplasm of uterine body 147041028 Z85.42 added to PMH Gastroesop hageal reflux disease without esophagitis 290833681 K21.9 pantoprazo le 40 mg qdmonitor for sx relief Essential hypertension 13219993 I10 metoprolol 50 mg bidmonitor bp and need to titrate Mixed hyperlipidemia 267 699873 E78.2 simvastati n 40 mg qdcontinue d Neurogenic urinary bladder 849314855 N31.8 abdi cath and care Sick sinus syndrome 3608 3008 I49.5 hx of with pacer in place [id number] LEESA LORD Lynch at [facility] on [address] [place] [address] 03/19/2024 09:16:20 03/20/2024 09:36:50 Clostridium difficile colitis 840234169 A04.72 stools resolvedmo nitor for recurrent loose stool Acute kidney injury 1466 9001 N17.8 labs pending todaylast labs in range 21/0.60 Idiopathic avascular necrosis of bone 1043481890 M87.852 avascular necrosis left femoral head on imaging was seen by ortho now with plan to f/u for replacemen tcontinue PT OT see HPI Atrial fibrillation 4943 6004 I48.0 xarelto 20 mg qdmetoprol ol 50 mg bidrate controlled at 79 [id number] LEESA Lynch at [facility] on [address] [place] [address] 03/22/2024 11:37:26 03/25/2024 11:02:46 Acute kidney injury 20596971 N17.8 stable for patientlas t labs in range 24/0.80enc ourage PO fluids Idiopathic avascular necrosis of bone 7000809768 M87.852 continue PTPt ambulated short distances up [...] ol 50 mg bidrate controlled at 79 [id number] LEESA Fergusonone at [facility] on [address] [place] [facility] [place] [address] 03/27/2024 12:47:31 03/28/2024 13:18:07 Acute kidney injury 49903250 N17.8 no labs this week for some reason-add cbc bmp tomorrow 03/28 Atrial fibrillation 4943 6004 I48.0 see HPI- had nuclear stress test today, will follow up tomorrow with eli lockhart amiodarone 125 mg every other day per cardsxarel to 20 mg qdmetoprol ol 50 mg bid Cough 79469763 R05.9 STAT chest xray two viewsadd cbc with bmp tomorrowsw ab for flu and covid nowmonitor resp status Nausea 708530369 R11.0 continue prn compazine and re-eval in 30 days [id number] LEESA Lynch at [facility] on [address] [place] [address] 03/28/2024 09:25:01 03/29/2024 13:23:38 Acute kidney injury 76447002 N17.8 labs pending today Atrial fibrillation 4943 6004 I48.0 see HPI- had nuclear stress test, follow up with cards tomorrowco ntinue amiodarone 125 mg every other day per cardsxarel to 20 mg qdmetoprol ol 50 mg bid Cough 28966791 R05.9 waiting on xray resultsif positive send home with miquel spent greater than 15 minutes discussing postpone of DC with patient and SW, ultimately wants to leave, wrote rx for miquel Nausea 052788294 R11.0 continue prn compazine Idiopathic avascular necrosis of bone 4459387720 M87.852 avascular necrosis left femoral head on imaging was seen by ortho now with plan to f/u for replacemen t Abdominal aortic aneurysm 620266866 I71.43 followed by [facility] vascular Asthenia 88486052 R53.1 improved Chronic ki dney disease stage 3A 759119012 N18.31 carrying dx with recent ARFPCP to follow labs Chronic ob structive pulmonary disease 65132550 J41.1 added to PMH History of malignant neoplasm of uterine body 237803463 Z85.42 added to PMH Gastroesop hageal reflux disease without esophagitis 931729565 K21.9 pantoprazo le 40 mg qd Essential hypertension 80530853 I10 metoprolol 50 mg bid Mixed hyperlipidemia 267 779551 E78.2 simvastati n 40 mg qdcontinue d Neurogenic urinary bladder 233541537 N31.8 abdi cath and care Sick sinus syndrome 3608 3008 I49.5 hx of with pacer in place [id number] Abby Razo NP [facility] [address] [place] [address] 04/08/2024 13:58:51 04/09/2024 13:16:49 Acute kidney injury 87528727 N17.8 hxlikely in setting of dehydratio n from diarrheacb c bmp weekly x 3 monitor Atrial fibrillation 4943 6004 I48.0 digoxin 125 mcg qodxarelto 20 mg qdmetoprol ol 50 mg bid Idiopathic avascular necrosis of bone 6367148637 M87.852 PT/OT eval and treatchole calciferol 25 mcg qdhydrocod one tyl q 6 hours prn painsuppor tive caremonito r Clostridiu m difficile colitis 165264742 A04.72 tested neg for cdif this admission, had it last admissions tools improving 1-2 per dayvanomyc in po for 2 more dosesmonit or for recurrent loose stool Abdominal aortic aneurysm 724080704 I71.43 [facility] pt with Dr Crook per pt coming upmonitor Asthenia 44170959 R53.1 PT OT eval and treatmonit or fall risk and need for increased support in community Chronic ki dney disease stage 3A 282382010 N18.31 carrying dx with recent ARFmonitor renal functionav oid nephrotoxi c meds as ablenephro consult prn Chronic ob structive pulmonary disease 84163400 J41.1 albuterol prnmonitor History of malignant neoplasm of uterine body 898396393 Z85.42 hx of Gastroesop hageal reflux disease without esophagitis 075920096 K21.9 pantoprazo le 40 mg qdmonitor for sx relief Essential hypertension 66491805 I10 metoprolol 50 mg bidmonitor bp and need to titrate Mixed hyperlipidemia 267 541272 E78.2 simvastati n 40 mg qdcontinue d Neurogenic urinary bladder 119068166 N31.8 abdi cath and carechange monthly per regular regimenmon itor for s/s of infection Sick sinus syndrome 3608 3008 I49.5 hx of with pacer in place Iron defic iency anemia 83082053 D50.9 ferrous sulfate qdvit c qdmonitor labs Recurrent depression 191 503266 F32.A lexapro 10 mg po qdmonitorp sych prn Pneumonia 966815098 J18. 9 with sepsis pneumoniah ad course of ceftriaxon e in hospalb prnduoneb q 4 hours prnmonitor cbc and bmp weekly x 3 Recurrent falls 71543062 2 R29.6 pt with falls from home and very deconditio nedPT OT eval and treatsuppo rtive caremonito r [id number] Jonah Khan MD [address] [address] 04/13/2024 08:22:12 04/16/2024 10:05:52 Sepsis 41949075 A41.89 complete course of abxmonitor for recurrent infection Asthenia 59462663 R53.1 PT OT eval and treatmonit or fall risk and need for increased support in community Clostridiu m difficile colitis 334272158 A04.72 concern for sepsis secondary to c diff underwent treatment then question if colonized at [facility] for sxcomplete course of PO vanco Acute kidney injury 1466 9001 N17.8 ARF on CRFimprove d with IVFmonitor renal function Idiopathic avascular necrosis of bone 4747537736 M87.852 avascular necrosis left femoral head on imaging was seen by ortho now with plan to f/u for replacemen tcoordinat e care Abdominal aortic aneurysm 058427376 I71.43 [facility] to PMH Atrial fibrillation 4943 6004 I48.0 xarelto 20 mg qdmetoprol ol 50 mg bidmonitor for rate control Chronic ki dney disease stage 3A 989292715 N18.31 carrying dx with recent ARFmonitor renal functionav oid nephrotoxi c meds as ablenephro consult prn Chronic ob structive pulmonary disease 70928261 J41.1 added to PMHmonitor utilizatio n of albuterol History of malignant neoplasm of uterine body 169697628 Z85.42 added to PMH Gastroesop hageal reflux disease without esophagitis 827933282 K21.9 pantoprazo le 40 mg qdmonitor for sx relief Essential hypertension 30025502 I10 metoprolol 50 mg bidmonitor bp and need to titrate Mixed hyperlipidemia 267 160717 E78.2 simvastati n 40 mg qdcontinue d Neurogenic urinary bladder 664477700 N31.8 abdi cath and care Sick sinus syndrome 3608 3008 I49.5 hx of with pacer in place [id number] DERIAN BEE NP [facility] [address] [address] 04/17/2024 15:45:04 04/18/2024 14:24:58 Sepsis 53732156 A41.89 completed course of abxmonitor for recurrent infectionV SS, clinically stableChec k labs prn Idiopathic avascular necrosis of bone 0672955323 M87.852 avascular necrosis left femoral head on imaging was seen by ortho now with plan to f/u for replacemen tcoordinat e care with OrthoPT OT eval and tx. Asthenia 68313330 R53.1 PT OT eval and treatmonit or fall risk and need for increased support in community Clostridiu m difficile colitis 268065683 A04.72 concern for sepsis secondary to c diff underwent treatment then question if colonized at [facility] n[facility] for sxcomplete d course of PO vanco Acute kidney injury 1466 9001 N17.8 ARF on CRFimprove d with IVFmonitor renal function Abdominal aortic aneurysm 547163909 I71.43 [facility] vascularad ded to PMH Atrial fibrillation 4943 6004 I48.0 xarelto 20 mg qdmetoprol ol 50 mg bidmonitor for rate control Chronic ki dney disease stage 3A 041738793 N18.31 carrying dx with recent ARFmonitor renal functionav oid nephrotoxi c meds as ablenephro consult prn Chronic ob structive pulmonary disease 34064853 J41.1 added to PMHmonitor utilizatio n of albuterol History of malignant neoplasm of uterine body 147176596 Z85.42 added to PMH Gastroesop hageal reflux disease without esophagitis 040084592 K21.9 pantoprazo le 40 mg qdmonitor for sx relief Essential hypertension 83692989 I10 metoprolol 50 mg bidmonitor bp and need to titrate Mixed hyperlipidemia 267 655195 E78.2 simvastati n 40 mg qdcontinue d Neurogenic urinary bladder 153062073 N31.8 abdi cath and carecontin ue methenamin e 1 gm qd for UTI proph. Sick sinus syndrome 3608 3008 I49.5 hx of with pacer in place [id number] DERIAN BEE NP [facility] [address] [address] 04/24/2024 10:46:51 04/26/2024 14:47:06 Sepsis 20074548 A41.89 resolved.c ompleted course of abxmonitor ing for recurrent infectionV SS, clinically stableChec k labs prn Idiopathic avascular necrosis of bone 6060352881 M87.852 avascular necrosis left femoral head on imaging was seen by ortho now with plan to f/u for replacemen tcoordinat e care with OrthoPT OT eval and tx.Monitor pain, [facility] Asthenia 00746485 R53.1 Continue PT OTmonitor fall risk and need for increased support in community Clostridiu m difficile colitis 655982682 A04.72 concern for sepsis secondary to c diff underwent treatment then question if colonized at [facility] n[facility] for sxcomplete d course of PO vanco Acute kidney injury 1466 9001 N17.8 ARF on CRFimprove d with IVFmonitor renal functionav oid nephrotoxi cs Abdominal aortic aneurysm 986627918 I71.43 [facility] vascularad ded to PMH Atrial fibrillation 4943 6004 I48.0 Continue:x arelto 20 mg qdmetoprol ol 50 mg bidmonitor for rate control Chronic ki dney disease stage 3A 491477471 N18.31 carrying dx with recent ARFmonitor renal functionav oid nephrotoxi c meds as ablenephro consult prn Chronic ob structive pulmonary disease 86177705 J41.1 added to PMHmonitor utilizatio n of albuterol History of malignant neoplasm of uterine body 757888161 Z85.42 added to PMH Gastroesop hageal reflux disease without esophagitis 152829080 K21.9 pantoprazo le 40 mg qdmonitor for sx relief Essential hypertension 66488649 I10 continue metoprolol 50 mg bidmonitor bp and need to titrate Mixed hyperlipidemia 267 786248 E78.2 simvastati n 40 mg qdcontinue d Neurogenic urinary bladder 121345484 N31.8 Chronic - indwelling abdi cath x yrs.contin ue methenamin e 1 gm qd for UTI proph. Sick sinus syndrome 3608 3008 I49.5 hx of with pacer in place Insomnia 350226182 G47.0 9 Pt. requesting sleep aid - add melatonin 5 mg q HS prnMonitor use and effect. Cramp in lower limb 4499 90905 R25.2 In calves, comes and goes, gets some relief when legs moved and stretched. Already on Fe, vitamin/mi neral supplement s.Also on statin.Elle ck labs - CBC, BMP Mg FeContinue to monitor closelyCon curriculum counselor tonic water prnAdden dum - will add tizanidine 2 mg q hs prn for now - monitor use and effect. [id number] Abby Razo NP [facility] [place] [address] 04/29/2024 12:34:25 05/01/2024 15:15:14 Sepsis 33489134 A41.89 resolved.c ompleted course of abx Insomnia 245874657 G47.0 9 while her melatonin addedcontm elatonin 5 mg q HS prnMonitor use and effect outpt with pcp Cramp in lower limb 4499 27888 R25.2 In calves, comes and goes, gets some relief when legs moved and stretched. resolvingA lready on Fe, vitamin/mi neral supplement s.Also on statin.add ed tizanidine 2 mg q hs prn here with effect will continue prnfu with pcp outpt Idiopathic avascular necrosis of bone 6235773187 M87.852 avascular necrosis left femoral head on imaging was seen by ortho now with plan to f/u for replacemen t=coordina te care with Ortho for future surgeryPT OT eval and tx. prn outptMonit or outpt with pcp and fu with ortho on 05/06hydroc odone/tyl 1 tab q 6 hours prn Asthenia 78755570 R53.1 Continue PT OTmonitor fall risk and need for increased support in community Clostridiu m difficile colitis 681854158 A04.72 resolvedco ncern for sepsis secondary to c diff underwent treatment then question if colonized at [facility] for sxcomplete d course of PO vanco and symptomati c Acute kidney injury 1466 9001 N17.8 ARF resolvedAR F on CRFimprove d with IVFmonitor renal functionav oid nephrotoxi csfu with pcp Abdominal aortic aneurysm 402242094 I71.43 followed by [facility] vascular Atrial fibrillation 4943 6004 I48.0 Continue:x arelto 20 mg qdmetoprol ol 50 mg bidmonitor for rate controlfu with pcp Chronic ki dney disease stage 3A 981172029 N18.31 carrying dx with recent ARFmonitor renal functionav oid nephrotoxi c meds as ablenephro consult prnfu with pcp Chronic ob structive pulmonary disease 78759764 J41.1 hx ofmonitor utilizatio n of albuterolf u with pcp History of malignant neoplasm of uterine body 960713844 Z85.42 hx ofchronic foleyfu with pcp Gastroesop hageal reflux disease without esophagitis 017410163 K21.9 pantoprazo le 40 mg qdmonitor for sx relief wtih pcp outpt Essential hypertension 15990998 I10 continue metoprolol 50 mg bidmonitor bp and need to titrate outpt with pcp Mixed hyperlipidemia 267 240861 E78.2 simvastati n 40 mg qdcontinue d with pcp outpt Neurogenic urinary bladder 700963526 N31.8 Chronic - indwelling abdi cath x yrs.contin uemethenam ine 1 gm qd for UTI proph.fu with outpt with pcp Sick sinus syndrome 3608 3008 I49.5 hx of with pacer in place Health Concerns Section Related Observation LastModified by Organization Detai ls LastModified Time None Recorded Concern Status LastModified by Organization Details LastModified Time None Recorded Advance Directives Directive N: Payers Insurance Date Sequence Insurance Name Policy Number Policy Ruiz Covered Member ID Ruiz Member ID Guarantor Name 05/01/2024 1 [facility] - MEDICARE PREFERRED (MEDICARE REPLACEMENT HMO) PRAKASH Jung [id number] Trupti Jung Notes Date Note Type Note Provider Name and Address Organization Details Recorded Time 04/08/2024 text/html Patient is a 73 yo female seen today for an initial intake visit. PMH significant for AAA follow by [facility] vascular, a fib, crf stage , copd, gerd, hx uterine ca,hld, htn, neurogenic bladder with abdi, SSS s/p pacer, avascualar necrosis of left hip Trupti is a 73 yo f here at [facility] for rehab [place] [facility] [place] for recent hospitalization 02/27-03/03 for c diff sepsis and dc to re[facility] at [facility] subsequently dc'd on 03/28/24. Since discharged from home she returned [place] [facility] [place]- for progressively weak, persistent [...] okayMORSE: high riskBIMS Abby Razo NP [address], [address], [place], [address], [facility] 04/08/2024 20:42:30 04/13/2024 text/html Patient is a [...] diff prophylaxis PMH significant forAAA follow by [facility] vascular fibcrf stage 3copdgerdhx uterine cahldhtnneurogenic bladder with foleySSS s/p pacer admit to facility for continued care and therapy Jonah Khan MD [address], [address], [place], [address], [facility] 04/13/2024 08:34:24 04/17/2024 text/html Trupti is [...] 04/08 stable. PMH significant forAAA follow by [facility] vascular fibcrf stage 3copdgerdhx uterine cahldhtnneurogenic bladder with foleySSS s/p pacer admit to facility for continued care and therapy DERIAN BEE NP [address], [address], [place], [address], [facility] [employer] 04/17/2024 15:56:56 04/24/2024 text/html Trupti is see [...] med changes. PMH significant forAAA follow by [facility] vasculara fibcrf stage 3copdgerdhx uterine cahldhtnneurogenic bladder with foleySSS s/p pacer DERIAN BEE NP [address], [address], [place], [address], [facility] [place] [facility] 04/24/2024 14:07:19 04/29/2024 text/html Trupti is see n today for a discharge visit. PMH significant for AAA follow by [facility] vascular, a fib, crf stage , [...] diff prophylaxis. She was admitted to to [facility] for rehab and care. Since here [...] and spasms. Abby Razo NP [address], [address], [place], [id number], [facility] 05/01/2024 12:03:58 OBGyn Episode No OBEpisode recorded.
[2024-08-23] VITALS (18 sets, daily range): BP systolic 126–171; BP diastolic 79–115; PULSE 75–86; RESP 10–22; TEMP 36.6–36.7; O2SAT 93–100; BMI 27.3
--- NOTE | 2024-08-23 13:11 | PC.NURSE ---
Patient in preop. Faint expiratory wheezing present in all lung mcgowan, SaO2 WNL. Per patient, this breathing is chronic for her. Dr Kaba made aware. No respiratory treatment needed per him. During preop patient also voiced some pins and needles in left extremity for the last week or so. Dr. Kaba made aware, no new orders at this time.
--- NOTE | 2024-08-23 13:48 | W.PM.OPN ---
Operative Note Operative Note Date of Service: 08/23/24 Narrative: Indication: Dual chamber pacemaker generator ROSEMARIE Summary: 1. Generator replacement of Medtronic dual chamber pacemaker (CPT 99490) 2. Moderate sedation provided by ar for 37 minutes (CPT 34415, +12975 x2) Narrative: Patient presented to the EP lab in a fasting, nonsedated state after written informed consent was verified. The procedure was performed under moderate sedation provided by ar. 2g IV Ancef was administered prior to skin incision. The patient was prepped and draped in the usual sterile manner. A 1-inch incision was made over the existing pacemaker generator. The pacemaker pocket was exposed using a combination of electrocautery and blunt dissection. The existing generator was removed from the pocket. The new pacemaker generator was brought to the field. The leads were detached from the existing pacemaker and promptly inserted into the respective ports of the new generator. The leads were secured in the header using the provided torque wrench. The pocket was flushed with an antibiotic irrigant. Any bleeders within the pocket were controlled with electrocautery. The leads were wrapped underneath the new generator and the pacemaker was placed back within the existing pocket. A TYRX envelope was placed within the pocket. Pacemaker testing showed lead parameters to be within the desirable range. The pocket was closed in two layers using 2-0 followed by 4-0 V-Loc. Dermabond was applied over the incision site. Gauze and tegaderm dressing were then placed over the incision site. Patient was then transported back to recovery in a stable condition. Recommendations: 1. Keep chest incision site dry for 7 days. 2. Remove the gauze and Tegaderm dressing after 3 days. 3. Follow up in clinic in 1-2 weeks for incision site check. 4. Discharge home after 60 mins if patient remains stable. Procedure start: 2:30 PM Procedure end: 3:15 PM
--- NOTE | 2024-08-23 15:18 | W.PM.OPN ---
Operative Note Operative Note Date of Service: 08/23/24 Narrative: Indication: Dual chamber pacemaker generator ROSEMARIE Summary: 1. Generator replacement of Medtronic dual chamber pacemaker (CPT 76538) 2. Moderate sedation provided by ct for 45 minutes (CPT 34435, +[id number] x2) Narrative: Patient presented to the EP lab in a fasting, nonsedated state after written informed consent was verified. The procedure was performed under moderate sedation provided by ct. 2g IV Ancef was administered prior to skin incision. The patient was prepped and draped in the usual sterile manner. A 1-inch incision was made over the existing pacemaker generator. The pacemaker pocket was exposed using a combination of electrocautery and blunt dissection. The existing generator was removed from the pocket. The new pacemaker generator was brought to the field. The leads were detached from the existing pacemaker and promptly inserted into the respective ports of the new generator. The leads were secured in the header using the provided torque wrench. The pocket was flushed with an antibiotic irrigant. Any bleeders within the pocket were controlled with electrocautery. The leads were wrapped underneath the new generator and the pacemaker was placed back within the existing pocket. A TYRX envelope was placed within the pocket. Pacemaker testing showed lead parameters to be within the desirable range. The pocket was closed in three layers using 2-0 followed by 4-0 V-Loc. Dermabond was applied over the incision site. Gauze and tegaderm dressing were then placed over the incision site. Patient was then transported back to recovery in a stable condition. Recommendations: 1. Keep chest incision site dry for 7 days. 2. Remove the gauze and Tegaderm dressing after 4 days. 3. Follow up in clinic in 1-2 weeks for incision site check. 4. Discharge home after 60 mins if patient remains stable. 5. Resume Xarelto on 08/26/24.
== END 2024-08-23 16:10 | disposition home or self-care (01) ==
PROVIDERS: PCP Internal Medicine; Visit Provider Student in an Organized Health Care Education/Training Program
PROC: (CPT 33228; principal; 2024-08-23 13:50)
DX: Z45.018 Encounter for adjustment and management of other part of cardiac pacemaker (principal); Z45.010 Encounter for checking and testing of cardiac pacemaker pulse generator [battery]; Z79.01 Long term (current) use of anticoagulants
CPT/HCPCS: 33228; 99152; 99153; C1785; C1889; J0690; J2003; J2250; J2312; J2795; J3010; J3374; Q9967

== ENCOUNTER 2024-08-25 19:34 | Emergency (ER) | payer MEDICARE, SELFPAY ==
--- NOTE | ~2024-08-25 | XR_ITS ---
CLINICAL HISTORY: pacemaker check 1 view chest x-ray Comparison: 05/06/2024 Findings: Lungs are clear without acute infiltrates. No pneumothorax. Heart size normal. No acute bony abnormalities. Left pacemaker is unchanged. Impression: No acute processes This document has been electronically signed by: Kade Ovalles MD on 08/25/2024 22:43:57
[2024-08-25 19:36] VITALS: BP 102/63; PULSE 74; RESP 20; TEMP 36.7; O2SAT 95; BMI 26.9
--- NOTE | 2024-08-25 19:42 | ED.SKABFB ---
HPI - Skin/Abscess/Foreign Bdy General Chief complaint: Skin/Abscess/Foreign Body Stated complaint: battery change got infected Time Seen by Provider: 08/25/24 21:02 Source: patient Mode of arrival: EMS Limitations: no limitations History of Present Illness ED Provider: HPI narrative: 73-year-old woman presenting with concerns by her VNA for questioning of the infected pacemaker site, patient had pacemaker battery exchanged on 08/23/2024, has not had any fevers or chills, she states she takes hydrocodone at home, and has had no drainage no spreading redness VNA questioned whether this and infection. She received IV antibiotics preop. Has not been on postop antibiotics. Related Data Home Medications ?Medication ?Instructions ?Recorded ?Confirmed folic acid 1 mg tablet 1 mg PO DAILY 04/07/20 06/27/24 simvastatin 40 mg tablet 40 mg PO BEDTIME 02/10/21 06/27/24 albuterol sulfate 90 mcg/actuation 2 puff inhalation Q6H PRN wheezing 05/12/22 06/27/24 aerosol inhaler escitalopram oxalate 10 mg tablet 10 mg PO DAILY 02/10/23 06/27/24 cholecalciferol (vitamin D3) 25 25 mcg PO DAILY 06/08/23 08/23/24 mcg (1,000 unit) capsule cyanocobalamin (vitamin B-12) 1,000 mcg PO DAILY 01/19/24 08/23/24 1,000 mcg tablet estradiol 0.01% (0.1 mg/gram) 2 g vaginal MOFR 01/19/24 06/27/24 vaginal cream ferrous sulfate 325 mg (65 mg 325 mg PO DAILY 01/19/24 06/27/24 iron) tablet dicyclomine 10 mg capsule 10 mg PO BID 02/29/24 08/23/24 magnesium citrate 100 mg capsule 200 mg PO BEDTIME 02/29/24 06/27/24 metoprolol tartrate 50 mg tablet 50 mg PO BID 02/29/24 08/23/24 pantoprazole 40 mg tablet,delayed 40 mg PO DAILY@0630 02/29/24 08/23/24 release rivaroxaban 20 mg tablet (Xarelto) 20 mg PO DAILY@1700 02/29/24 08/23/24 Lactobacillus rhamnosus GG 10 1 cap PO DAILY 03/29/24 06/27/24 billion cell capsule (Culturelle) calcium carbonate 500 mg PO DAILY PRN Dyspepsia 03/29/24 06/27/24 digoxin 125 mcg (0.125 mg) tablet 125 mcg PO Q OTHER DAY 03/29/24 08/23/24 fluticasone propionate 50 2 spray intranasal DAILY PRN 03/29/24 06/27/24 mcg/actuation nasal Allergy Symptoms spray,suspension ipratropium 0.5 mg-albuterol 3 mg 3 ml inhalation Q4H PRN Wheezing 03/29/24 06/27/24 (2.5 mg base)/3 mL nebulization soln Previous Rx's ?Medication ?Instructions ?Recorded catheter insertion kit #2 01/25/22 catheter irrigation kit #2 01/25/22 abdi catheters #2 01/25/22 leg bags #2 01/25/22 night bags #1 01/25/22 sterile water #1 01/25/22 simethicone 180 mg capsule 180 mg PO BID #60 caps 11/27/23 (Anti-Gas Ultra Strength) prochlorperazine maleate 5 mg 5 mg PO Q12H PRN for 02/13/24 tablet nausea/vomiting #30 tabs hydrocodone 5 mg-acetaminophen 325 1 tab PO Q6H PRN Pain, Severe 03/03/24 mg tablet (Pain Scale 7-10) #20 tabs colestipol 1 gram tablet 1 g PO BID #60 tabs 05/01/24 ondansetron HCl 4 mg tablet 4 mg PO Q6H PRN for 06/04/24 nausea/vomiting #60 tabs methenamine hippurate 1 gram tablet 1 g PO DAILY UTI suppression 90 06/19/24 days #90 tabs zinc sulfate 50 mg zinc (220 mg) 50 mg PO DAILY #30 caps 06/19/24 capsule ascorbic acid (vitamin C) 500 mg 1,000 mg (2 x 500 mg) PO DAILY #90 07/08/24 tablet (Vitamin C) tabs Allergies Allergy/AdvReac Type Severity Reaction Status Date / Time No Known Allergies (No Known Allergy Verified 08/25/24 19:39 Allergies*) Review of Systems Constitutional: Constitutional: Reports as per [facility] Past Medical History Medical History Chronic atrial fibrillation Small bowel obstruction AAA (abdominal aortic aneurysm) Permanent atrial fibrillation Atrial fibrillation On beta mayra at home Legally blind Retention, urine Pneumonia Exercise hypoxemia GERD (gastroesophageal reflux disease) Hypertension Persistent atrial fibrillation COPD (chronic obstructive pulmonary disease) Dyspnea on exertion HTN (hypertension) Cardiac pacemaker in situ Sick sinus syndrome Surgical History History of appendectomy H/O vaginal surgery History of endoscopy Hx of colonoscopy History of esophagogastroduodenoscopy (EGD) Hx of hysterectomy Hx of cardiac pacemaker History of radiofrequency ablation (RFA) for complex left atrial arrhythmia History of cardioversion Family History Family History Father CHF (congestive heart failure) Cancer Pacemaker Mother Emphysema lung Social History Social History Household Members: Family Household Members Other:: AND SON Housing: House Are you a primary insurance healthcare consultant to a significant other at home: No Do you presently have visiting nurse or other home services: No Unable to assess alcohol history related to: Unknown Alcohol intake: former Patient Tobacco Use Status: Former Tobacco user Tobacco use type: Cigarette Smoked in Last 30 Days: No Use of substances other than those prescribed or required for medical reasons: No Advance Directives: Yes Advance Directives on File: Yes Advance Directives Date on File: 07/19/22 service: No Physical Exam Vital Signs: Vital Signs: Last Vital Signs Temp 97.7 F 08/25/24 20:07 Pulse 73 08/25/24 21:50 Resp 17 08/25/24 21:50 BP 108/72 08/25/24 21:50 Pulse Ox 96 08/25/24 21:50 O2 Del Method Room Air 08/25/24 21:50 BMI result Body Mass Index 26.9 Const: Other: Gen: ?Overall well-appearing patient HEENT: PERRLA, EOMI, MMM, Neck: Supple, no LAD CV: I did not appreciate obvious murmurs, radial pulses +2 Resp: ?No wheezing rales rhonchi no stridor moving air well Abd: No tenderness to generalized palpation Skin: Is attached, patient has hematoma without any drainage with skin glue in place, she has no erythema spreading to the breast area axillary area back area, no subcutaneous emphysema Neuro: ?Alert and oriented x3, moving upper and lower extremities symmetrically, no obvious facial asymmetry noted Course Course Course Narrative: Jossy Toth [employer] 08/25 1942 This is a rapid medical exam. Deferred additional HPI, ROS, PE to primary provider. 73 yo female with a history atrial fibrillation on Xarelto, CKD stage 3, AAA, COPD not on supplemental oxygen, GERD, history of uterine cancer, hyperlipidemia, hypertension, chronic indwelling Abdi catheter due to neurogenic bladder, sick sinus syndrome with pacemaker in situ here with complaints of redness/swelling to pacemaker site since yesterday. No fever, Will obtain labs VSS Medications Administered Discontinued Medications Generic Name Dose Route Start Last Admin Trade Name Freq PRN Reason Stop Dose Admin Oxycodone HCl 5 mg 08/25/24 21:39 08/25/24 21:50 Oxycodone Hcl Immed Release 5 Mg Tablet PO 08/25/24 21:40 5 mg ONCE ONE Administration Medical Decision Making Medical Decision Making MDM Narrative: Patient is presenting for evaluation of the pacemaker insertion site, she is nonfebrile, the area appears to be very much appropriate for timing, blood work without leukocytosis, we will obtain ECG to make sure the pacemaker general on chest x-ray to make sure there is no underlying pneumonia, pneumothorax, I will extensive subcutaneous emphysema though I not palpate crepitus on physical examination, I did contact Dr. Chiang to comment on her post op pic. Differential Diagnosis Differential Diagnoses: The differential diagnosis associated with the presentation includes Cellulitis, abscess, herpes zoster, device failure, pneumonia, pneumothorax Admission/Observation Consideration of admission/observation: Escalation of care including admission/observation considered 2022 Emergency Medicine Coding Guide from [email or web address] on 08/25/2024 All calculations should be rechecked by clinician prior to use RESULT SUMMARY: 4 Estimated Level of Service Problems: Low (3) Risk: Moderate (4) Data: Extensive (5) NARRATIVE MDM: This patient's problem complexity is Low as patient: has 1 chronic illness that appears to be at its baseline. This patient's risk is Moderate due to: overall presentation requiring evaluation for a potentially Moderate-risk process. This patient's data complexity is Extensive due to: -multiple tests ordered/reviewed -independent interpretation of imaging or EKG -discussion of management/testing with external professional INPUTS: Number and Complexity ?> 9 = 3: 1 stable, chronic illness (i) Risk level ?> 3 = Moderate Tests ordered ?> 2 = 2 Tests results reviewed (excluding labs) ?> 2 = 2 Prior external notes reviewed ?> 0 = 0 Assessment requiring and independent historian ?> 0 = No Independent interpretation of tests ?> 1 = Yes Discussed management/test interpretation w/external professional ?> 1 = Yes Consult Healthcare Provider Lab Data MDM Lab Attestation statement: I reviewed the patient's lab results. 08/25/24 19:58 08/25/24 19:58 Labs: Lab Results 08/25/24 Range/Units 19:58 WBC 7.7 (4.8-10.8) X10*3/uL RBC 4.44 (4.20-5.50) X10*6/uL Hgb 12.2 (12.0-16.0) g/dl Hct 38.9 (37.0-47.0) % MCV 87.6 (80.0-98.0) fL MCH 27.5 (27.0-33.0) pg MCHC 31.4 (31.0-35.0) g/dl RDW 15.7 (11.0-16.0) % Plt Count 185 D (160-400) X10*3/uL MPV 9.8 (9.4-12.3) fL Immature Gran % (Auto) 0.7 H (0.0-0.4) % Neut % (Auto) 74.7 H (45-73) % Lymph % (Auto) 13.6 L (20-40) % Kern % (Auto) 8.9 (2-11) % Eos % (Auto) 1.6 (0-4) % Baso % (Auto) 0.5 (0-2) % Lymph # (Auto) 1.0 L (1.2-4.9) X10*3/uL Kern # (Auto) 0.7 (0.1-1.2) X10*3/uL Eos # (Auto) 0.1 (0.0-0.4) X10*3/uL Baso # (Auto) 0.0 (0.0-0.2) X10*3/uL Abs Immat Gran (auto) 0.05 H (0.00-0.03) X10*3/uL Absolute Neuts (auto) 5.7 (2.0-8.3) x10*3/uL Absolute Nucleated RBC 0.000 (0.0-0.012) X10*3/uL Nucleated RBC % (auto) 0.0 (0.0-0.2) /100WBC PT 9.8 L D (10.9-12.4) SEC INR 0.9 (0.9-1.1) APTT 28.2 (26.0-36.8) SEC Sodium 140 (135-145) mmol/L Potassium 4.3 (3.3-5.1) mmol/L Chloride 112 H (96-108) mmol/L Carbon Dioxide 19 L (22-29) mmol/L Anion Gap 13 (12-20) BUN 22 H (9-16) mg/dL Creatinine 0.82 (0.5-1.4) mg/dL Estim Creat Clear Calc 56.0 Estimated GFR > 60 Random Glucose 142 H (60-115) mg/dL Lactic Acid 1.9 (0.5-2.0) mmol/L Calcium 7.9 L (8.4-10.2) mg/dL Total Bilirubin 0.1 (0.0-1.0) mg/dL Direct Bilirubin < 0.2 (0.0-0.5) mg/dL AST 27 (5-31) U/L ALT 11 (0-31) U/L Alkaline Phosphatase 98 (39-117) U/L Total Protein 6.3 L (6.5-8.0) g/dL Albumin 3.1 L (3.5-5.0) g/dL Independent Interpretation I performed an independent interpretation of an: EKG (77 beats per minute, similar ECG to her priors, she is on rate control AFib with in reciprocal changes noted most in V4 to V6 as well as leads 1 and 2 similar to prior) and Plain X-Ray (Pacemaker in place no subcutaneous emphysema or consolidations no pneumothorax) Discharge Plan Discharge Clinical Impression: Post-op pain Patient Disposition: Home, Self-Care Additional Instructions: You were evaluated for concerns of infection this is to not unusual to have this swelling and bruising after the procedure, this is to be expected, I also sent you information to I will fire regulator and he will forward it to the person who did the procedure as well, but the workup today included blood work, chest x-ray, EKG all of which has been reassuring I did give you an extra dose of oxycodone, you can continue taking her regular pain medications at home, no further changes to management at this time. Prescriptions: No Action simethicone [Anti-Gas Ultra Strength] 180 mg capsule 180 mg PO BID Qty: 60 1RF prochlorperazine maleate 5 mg tablet 5 mg PO Q12H PRN (Reason: for nausea/vomiting) Qty: 30 3RF colestipol 1 gram tablet 1 g PO BID Qty: 60 3RF ondansetron HCl 4 mg tablet 4 mg PO Q6H PRN (Reason: for nausea/vomiting) Qty: 60 2RF methenamine hippurate 1 gram tablet 1 g PO DAILY 90 Days Qty: 90 1RF zinc sulfate 50 mg zinc (220 mg) capsule 50 mg PO DAILY Qty: 30 2RF ascorbic acid (vitamin C) [Vitamin C] 500 mg tablet 1,000 mg PO DAILY Qty: 90 1RF albuterol sulfate 90 mcg/actuation HFA aerosol inhaler 2 puff inhalation Q6H PRN (Reason: wheezing) ipratropium-albuterol 0.5 mg-3 mg(2.5 mg base)/3 mL Solution For Nebulization 3 ml INHALATION Q4H PRN (Reason: Wheezing) calcium carbonate 500 mg calcium (1,250 mg) Tablet,Chewable 500 mg PO DAILY PRN (Reason: Dyspepsia) Culturelle 10 billion cell Capsule 1 cap PO DAILY fluticasone propionate 50 mcg/actuation spray,suspension 2 spray intranasal DAILY PRN (Reason: Allergy Symptoms) digoxin 125 mcg (0.125 mg) tablet 125 mcg PO Q OTHER DAY Rx Instructions: [facility] list reports until 04/04/24 pantoprazole 40 mg Tablet,Delayed Release (Dr/Ec) 40 mg PO DAILY@0630 dicyclomine 10 mg Capsule 10 mg PO BID magnesium citrate 100 mg Capsule 200 mg PO BEDTIME Xarelto 20 mg tablet 20 mg PO DAILY@1700 metoprolol tartrate 50 mg tablet 50 mg PO BID hydrocodone-acetaminophen 5-325 mg Tablet 1 tab PO Q6H PRN (Reason: Pain, Severe (Pain Scale 7-10)) Qty: 20 0RF Rx Instructions: Partial Fill upon patient request. folic acid 1 mg tablet 1 mg PO DAILY (DME) night bags See Rx Instructions .Route .MEDSUPPLY Qty: 1 11RF Rx Instructions: As directed- 1 catheter night bag per month ([facility] [place]) catheter insertion kit See Rx Instructions .Route .MEDSUPPLY Qty: 2 11RF Rx Instructions: As directed- 2 kits per month ([facility] [place]) abdi catheters 18 maori See Rx Instructions .Route .MEDSUPPLY Qty: 2 11RF Rx Instructions: As directed- 2 catheters per month ([facility] [place]) catheter irrigation kit See Rx Instructions .Route .MEDSUPPLY Qty: 2 11RF Rx Instructions: As directed- 2 kits per month ([facility] [place]) sterile water See Rx Instructions .Route .MEDSUPPLY Qty: 1 11RF Rx Instructions: As directed for abdi catheter irrigation ([facility] [place]) leg bags See Rx Instructions .Route .MEDSUPPLY Qty: 2 11RF Rx Instructions: 2 catheter leg bags per month simvastatin 40 mg tablet 40 mg PO BEDTIME escitalopram oxalate 10 mg tablet 10 mg PO DAILY cholecalciferol (vitamin D3) 25 mcg (1,000 unit) capsule 25 mcg PO DAILY cyanocobalamin (vitamin B-12) 1,000 mcg tablet 1,000 mcg PO DAILY estradiol 0.01 % (0.1 mg/gram) cream 2 g vaginal MOFR ferrous sulfate 325 mg (65 mg iron) tablet 325 mg PO DAILY Print Language: Ukrainian
[2024-08-25 20:01] LABS: Hematocrit 38.9 % (37.0-47.0); Hemoglobin 12.2 g/dl (12.0-16.0); Imm Gran Abs Auto 0.05 X10*3/uL (0.00-0.03); Imm Gran Pct Auto 0.7 % (0.0-0.4); Lymphocytes Absolute Auto 1.0 X10*3/uL (1.2-4.9); MANUAL DIFF FLAG NO; Mean Corpuscular HGB Conc 31.4 g/dl (31.0-35.0); Mean Corpuscular Hemoglobin 27.5 pg (27.0-33.0); Mean Corpuscular Volume 87.6 fL (80.0-98.0); NRBC Abs Auto 0.000 X10*3/uL (0.0-0.012); NRBC Pct Auto 0.0 /100WBC (0.0-0.2); Platelet Count 185 X10*3/uL (160-400); Red Blood Count 4.44 X10*6/uL (4.20-5.50); White Blood Count 7.7 X10*3/uL (4.8-10.8)
[2024-08-25 20:07] VITALS: BP 92/51; PULSE 78; RESP 15; TEMP 36.5; O2SAT 95
[2024-08-25 20:09] LABS: INTERNATIONAL NORM RATIO 0.9 (0.9-1.1); Prothrombin Time 9.8 SEC (10.9-12.4)
[2024-08-25 20:12] LABS: Partial Thromboplastin Time 28.2 SEC (26.0-36.8)
[2024-08-25 20:20] LABS: Alanine Aminotransferase 11 U/L (0-31); Albumin Level 3.1 g/dL (3.5-5.0); Alkaline Phosphatase 98 U/L (39-117); Anion Gap 13 (12-20); Aspartate Amino Transferase 27 U/L (5-31); Blood Urea Nitrogen 22 mg/dL (9-16); Calcium 7.9 mg/dL (8.4-10.2); Carbon Dioxide 19 mmol/L (22-29); Chloride 112 mmol/L (96-108); Creatinine Clr Calc Pharmacy 56.0; Estimated Glomerular Filt Rate > 60; Potassium 4.3 mmol/L (3.3-5.1); Sodium 140 mmol/L (135-145); Total Protein 6.3 g/dL (6.5-8.0)
--- NOTE | 2024-08-25 20:45 | PC.NURSE ---
a&ox4. vss and up to date. nsr on the quality assurance monitor - paced. hx sick sinus syndrome/afib +thinners (hasn't taken since monday d/t most recent procedure). pt presents to the ED after recently having battery in pacemaker changed at [facility] x monday. pt reports increased redness/swelling to the affected site x 3 days that worsened x yesterday. pt reports visiting nurse came for appointment today/was advised to come to the ED to be evaluated. denies recent fevers/chills. slight purulent drainage noted to affected site. tender w/ palpation. skin marker applied to affected area. 20gIV in the right AC w/ additional 20gIV in the left forearm - labs obtained/sent to lab. hx of neurogenic bladder - chronic indwelling 16fr w/ 5cc balloon present upon ED arrival - draining clear, pale yellow, non-foul smelling urine. pt reports catheter was last changed x 1 week ago by VNA. pt otherwise in no apparent distress. on RA w/o difficulty. no sob/wob noted. respirations even/unlabored. plan of care ongoing. call vasquez placed within reach.
--- NOTE | 2024-08-25 21:43 | ECG_ITS ---
Test Reason : PACEMAKER CHECK Blood Pressure : */* mmHG Vent. Rate : 77 BPM Atrial Rate : * BPM P-R Int : * ms QRS Dur : 78 ms QT Int : 400 ms P-R-T Axes : * 18 259 degrees QTcB Int : [address] & T wave abnormality, consider inferolateral ischemia Abnormal ECG When compared with ECG of 29-Mar-2024 17:32, No significant change was found Referred By: Brendon Campos Electronically Signed By: Pedro Mccarthy
[2024-08-25 21:50] VITALS: BP 108/72; PULSE 73; RESP 17; O2SAT 96
[2024-08-25] MEDS: oxyCODONE HCl Immed Release 5 MG TABLET PO (21:50)
--- NOTE | 2024-08-25 21:59 | PC.NURSE ---
ekg obtained/given to provider. CXR being completed at this time.
[2024-08-25 23:09] VITALS: BP 99/58; PULSE 68; RESP 15; TEMP 36.5; O2SAT 98
[2024-08-25 23:12] VITALS: BP 99/58; PULSE 68; RESP 15; TEMP 36.5; O2SAT 98
== END 2024-08-25 23:21 | disposition home or self-care (01) ==
PROVIDERS: Nurse Practitioner Family; Emergency Provider Emergency Medicine; PCP Internal Medicine
DX: G89.18 Other acute postprocedural pain (principal); I48.91 Unspecified atrial fibrillation; Z95.0 Presence of cardiac pacemaker; Z79.899 Other long term (current) drug therapy; Z87.891 Personal history of nicotine dependence
CPT/HCPCS: 36415; 71045; 80048; 80076; 83605; 85025; 85610; 85730; 87040; 87205; 93005; 99283; 99285

== ENCOUNTER → 2024-08-25 21:43 | Outpatient (BNV) | payer MEDICARE, SELFPAY | PROVIDERS: Emergency Provider Emergency Medicine; PCP Internal Medicine; Visit Provider Internal Medicine Cardiovascular Disease | DX: I48.91 Unspecified atrial fibrillation (principal) | CPT/HCPCS: 93010 ==

== ENCOUNTER → 2024-08-25 21:44 | Outpatient (BNV) | payer MEDICARE, SELFPAY | PROVIDERS: Emergency Provider Emergency Medicine; PCP Internal Medicine; Visit Provider Radiology Diagnostic Radiology | DX: Z45.018 Encounter for adjustment and management of other part of cardiac pacemaker (principal) | CPT/HCPCS: 71045 ==

== ENCOUNTER 2024-08-27 08:18 | Outpatient (AMB) | payer MEDICARE, SELFPAY ==
[2024-08-27 08:20] VITALS: BP 114/80; PULSE 70
--- NOTE | 2024-08-27 08:20 | A.OFFVIS_ITS ---
Vital Signs 08/27/24 08:20 Height 5 ft 3 in BP 114/80 Blood Pressure Location Rt brachial Position Sitting Pulse 70 Pulse Source Pulse Oximeter Intake Visit Reasons: wound ck per DC Front Tender Required: No Highwall Drill Operator: Highwall Drill Operator Present Allergies No Known Allergies (No Known Allergies*) Allergy (Verified 08/27/24 08:22) Medication List - Last Reconciled 08/27/24 by MARILY Vigil albuterol sulfate 90 mcg/actuation 2 puffs inhalation Q6H PRN ascorbic acid (vitamin C) (Vitamin C) 1,000 mg (2 x 500 mg) PO DAILY calcium carbonate 500 mg PO DAILY PRN [catheter insertion kit As directed- 2 kits per month] [catheter irrigation kit As directed- 2 kits per month] cholecalciferol (vitamin D3) 25 mcg PO DAILY colestipol 1 g PO BID cyanocobalamin (vitamin B-12) 1,000 mcg PO DAILY dicyclomine 10 mg PO BID digoxin 125 mcg PO Q OTHER DAY escitalopram oxalate 10 mg PO DAILY estradiol 0.01%(0.1mg/gram) 2 grams vaginal MOFR ferrous sulfate 325 mg PO DAILY fluticasone propionate 50 mcg/actuation 2 sprays intranasal DAILY PRN [abdi catheters As directed- 2 catheters per month] folic acid 1 mg PO DAILY hydrocodone-acetaminophen 5-325 mg 1 tab PO Q6H PRN ipratropium-albuterol 0.5 mg-3 mg(2.5 mg base)/3 mL 3 mL inhalation Q4H PRN Lactobacillus rhamnosus GG (Culturelle) 1 cap PO DAILY [leg bags 2 catheter leg bags per month] magnesium citrate 200 mg PO BEDTIME methenamine hippurate 1 g PO DAILY 90 days metoprolol tartrate 50 mg PO BID [night bags As directed- 1 catheter night bag per month] ondansetron HCl 4 mg PO Q6H PRN pantoprazole 40 mg PO DAILY@0630 prochlorperazine maleate 5 mg PO Q12H PRN rivaroxaban (Xarelto) 20 mg PO DAILY@1700 simethicone (Anti-Gas Ultra Strength) 180 mg PO BID simvastatin 40 mg PO BEDTIME [sterile water As directed for abdi catheter irrigation ] tizanidine 2 mg PO BEDTIME zinc sulfate 50 mg PO DAILY HPI HPI wound ck per DC: Details: Trupti is a 73-year-old female with past medical history of hypertension, GERD, COPD, sick sinus syndrome status post pacemaker placement, abdominal aorti c aneurysm followed by Dr Crook, avascular necrosis of left him and in need of left total hip replacement, chronic atrial fibrillation, on anticoagulation who recently underwent a pacemaker generator change and presents here for wound check. Today she reports that generator change was done on 08/23/2024. She had concerns about possible site infection and was seen in the emergency room on 08/25/2024. Testing done that day confirmed no obvious infection. She does have some bruising and swelling. She states that currently it has less swelling but is very tender. She has had no drainage from wound, no fevers. Otherwise her condition is overall unchanged since last visit. She has chronic significant discomfort in the left hip region and ambulates only short distances with the use of a walker. She has occasional random discomfort in her chest, mostly occurring at rest. She has no chest discomfort clearly brought on by walking. She has some shortness of breath with activity which could be related to deconditioning. She denies PND, orthopnea or edema. No heart palpitations, presyncope, syncope, falls. She will get lightheaded if she stands up quickly. She is sitting in a wheelchair at this visit. She takes her meds as directed. Son is present. She has follow-up with Dr. Crook, vascular in October. She has no hip or abdominal aortic aneurysm surgery planned. [facility] told her that her hip surgery would be too high risk and declined to do it. [facility] Medical History Chronic atrial fibrillation Small bowel obstruction AAA (abdominal aortic aneurysm) Permanent atrial fibrillation Atrial fibrillation On beta mayra at home Legally blind Retention, urine Pneumonia Exercise hypoxemia GERD (gastroesophageal reflux disease) Hypertension Persistent atrial fibrillation COPD (chronic obstructive pulmonary disease) Dyspnea on exertion HTN (hypertension) Cardiac pacemaker in situ Sick sinus syndrome Surgical History History of appendectomy H/O vaginal surgery History of endoscopy Hx of colonoscopy History of esophagogastroduodenoscopy (EGD) Hx of hysterectomy Hx of cardiac pacemaker History of radiofrequency ablation (RFA) for complex left atrial arrhythmia History of cardioversion Family History Father CHF (congestive heart failure) Cancer Pacemaker Mother Emphysema lung Social History Household Members: Family Household Members Other:: AND SON Housing: House Are you a primary healthcare educator to a significant other at home: No Do you presently have visiting nurse or other home services: No Unable to assess alcohol history related to: Unknown Alcohol intake: former Patient Tobacco Use Status: Former Tobacco user Tobacco use type: Cigarette Advance Directives Date on File: 07/19/22 service: No Review of Systems Const All systems reviewed & are unremarkable except as noted in HPI and below ENT Denies dizziness Card Denies chest pain, Denies chest pain at rest, Denies chest pain with activity, Denies rapid heart rate, Denies pedal edema, Denies edema, Denies leg edema, Denies lightheadedness, Denies palpitations, Denies dyspnea, Denies dyspnea on exertion and Denies orthopnea Resp Denies cough, Denies dyspnea and Denies dyspnea on exertion GI Denies hematochezia and Denies change in stool character Musc Details: swelling and bruising at generator change site Denies abnormal gait, Denies limited range of motion, Denies muscle cramps, Denies muscle weakness, Denies numbness, Denies radiating pain into limb, Denies stiffness and Denies tingling Neuro Denies abnormal gait, Denies dizziness, Denies numbness and Denies tingling Endo Denies palpitations Physical Exam Vital Signs: Last Vital Signs Pulse 70 08/27/24 08:20 BP 114/80 08/27/24 08:20 Const Other: sitting in wheelchair General: cooperative, healthy appearing, comfortable and no acute distress Orientation/consciousness: patient oriented x3 Neck Neck: Yes normal visual inspection Chest Other: Left chest generator change site, with ecchimosis surrounding area, incision intact with skin glue, no drainage, soft swelling present and tenderness to palpation. superficial skin tear to skin near left shoulder - from corner of dressing present. Resp Effort & Inspection: normal respiratory effort Auscultation: no rales and no rhonchi Cardio Rate: regular rate Rhythm: abnormal rhythm Heart sounds: S1 normal heart sound present, S2 normal heart sound present, no gallops, no murmurs and no rubs Peripheral pulses: Peripheral pulses 2+ throughout Neuro General: patient oriented x3 Extrem General: Yes normal to inspection Psych Appearance: grossly normal Mental Status: mental status grossly normal Speech and movement: Normal speech and movement present Assessment & Plan Assessment & Plan (1) Visit for wound check: Code(s): Z51.89 - Encounter for other specified aftercare Category: Medical Plan: Pacemaker generator change 08/23/2024. Site ecchymosis and swelling present. Incision intact, no drainage. ER evaluation 08/25/24 did not show signs of infection. Picture from 08/25 and today sent to Dr. Kaba. He is requesting Xarelto be held until he sees her in the office on 09/06. Chads Vasc score of 3-4. Patient informed, stroke risk while off anticoagulation reviewed. Instructed to call this office or seek emergency medical care if she does have opening of wound, drainage from the site, fever or any concerns for stroke. (2) Persistent atrial fibrillation: Code(s): I48.19 - Other persistent atrial fibrillation Category: Medical Plan: History of persistent atrial fibrillation that is treated with heart rate control using metoprolol and digoxin, and anticoagulation, using Xarelto. EKG last visit shows atrial fibrillation with PVCs, rate 70. No reports of heart palpitations. Digoxin level 0.5 on 03/28/2024. No medication changes made - Xarelto put on hold as directed by Dr. Kaba. (3) Cardiac pacemaker in situ: Code(s): Z95.0 - Presence of cardiac pacemaker Category: Medical Plan: Medtronic dual-chamber pacemaker with recent generator change. Will arrange for office device check 09/16/2024. Cardiology follow-up that day as well to reassess wound. Remote monitoring in use. (4) HTN (hypertension): Code(s): I10 - Essential (primary) hypertension Category: Medical Plan: Blood pressure goal less than 130/80. Blood pressure normal today. No med changes made (5) Abnormal EKG: Code(s): R94.31 - Abnormal electrocardiogram [ECG] [EKG] Category: Medical Plan: EKG done last visit showing atrial fibrillation, scoping ST depressions inferior lateral leads, no significant change from prior EKG, asymptomatic. She does not have a known history of CAD. She does have cardiac risk factors including sedentary, hypertension, hyperlipidemia, age. Echocardiogram done 02/29/2024 showed EF 60-65%, severely dilated left atrium, moderate to severe decrease in RV systolic function, mild MR. Recent pharmacological nuclear stress test was negative for ischemia. (6) Infrarenal abdominal aortic aneurysm (AAA) without rupture: Code(s): I71.43 - Infrarenal abdominal aortic aneurysm, without rupture Category: Medical Plan: Follows with Dr. Crook (7) Osteoarthritis of left hip: Code(s): M16.12 - Unilateral primary osteoarthritis, left hip Category: Medical Plan: Follows with Dr. Oropeza Plan Time spent on chart review, documentation, interview and assessment, communication with Dr. Kaba, [facility] Coding Level of Care Code Est Pt Level 4 (68323) Complex EM visit Add On G2211 Diagnoses Visit for wound check Z51.89 Persistent atrial fibrillation I48.19 Cardiac pacemaker in situ Z95.0 HTN (hypertension) I10 Abnormal EKG R94.31 Infrarenal abdominal aortic aneurysm (AAA) without rupture I71.43 Osteoarthritis of left hip M16.12 Time Spent (min) 28
--- OUTSIDE RECORDS SUMMARY | 2024-08-27 08:25 | XMS_ITS | Encounter Summary ---
Author Organization [facility] Address [address] [place] [address] Phone Care Team Providers Care Curriculum And Assessment Coordinator Name Role Phone Raffy Orona MD Primary Care Provider [phone] Encounter Details Date Type Department Care Team (Late st Contact Info) Description 11/10/2021 Telephone [facility] [address] [place] [address] Inocente Martínez MD Social History [...] Office Visit [facility] [address] [place] [address] Ck Hunter MD [address] [id number] documented as of this encounter Visit Diagnoses Not on filedocumented in this encounter Care Teams Curriculum And Assessment Coordinator Relationship Specialty Start Date End Date Raffy Orona MD [address] [place] [address] PCP - General Internal Medicine 06/05/24 documented as of this encounter
--- OUTSIDE RECORDS SUMMARY | 2024-08-27 08:25 | XMS_ITS | Clinical Summary ---
Author Organization [facility] Address [address] [place] [address] Care Team Providers Care Stain Sprayer Name Role Phone Elena Jacobo COLLECTION OFFICER Primary Care Provider Allergies No known active [...] 2 (two) times a day. Active Pancrelipase, [id number]-[id number], (Creon) 4966-[address] Particles Take 1 capsule [...] this topic Medical Devices Implanted Type Area Rattle Leak And Squeak Repairer Device Identifier Shelf Expiration Date Model / Serial / Lot Pacemaker Pacemaker Insurance [facility] MEDICARE OUT OF NETWORK [facility] MEDICARE Advance Directives * Full Code (Latest Code Status on File) Date Activated Date Inactivated Comments 12/11/2020 8:56 AM Care Teams Stain Sprayer Relationship Specialty Start Date End Date Elena Jacobo NP [address] [place] [address] PCP - General Adult Health - PA/APNP/COLLECTION OFFICER/FORESTRY TECHNICAL OFFICER 12/11/20
--- OUTSIDE RECORDS SUMMARY | 2024-08-27 08:26 | XMS_ITS | Data Portability ---
Author Organization [facility], Main Office Address [address] [place] [address] Care Team Providers Care Dispatch Machine Runner Name Role Phone PRITI SYLVESTER Primary Care Provider [phone] MUSTAPHA CORCORAN - 2ND FLOOR OTHER Assessment [...] bone Active 2024 Ivanna Gutierrez MD [address] [facility], [address], [place], [address] , [facility] 5 18:57:44 Osteonecrosis of hip 723205235 Active 2024 Not Available [facility] 5 08:55:23 Intestinal obstruction 25286719 Active 2024 Not Available [facility] 5 08:48:53 Recurrent bacterial infection 908228130 Active 2024 Not Available [facility] 5 08:49:58 Hypo-osmolali ty and or hyponatremia 728553063 Active 2024 Not Available [facility] 5 08:50:29 Muscle weakness 63369474 Active 2024 Not Available [facility] 5 08:51:14 Dysphagia 03836914 Active 2024 Not Available [facility] 5 08:51:44 Unsteady when standing 745067134 Active 2024 Not Available [facility] 5 08:52:15 Chronic kidney disease stage 3 566067450 Active 2024 Not Available [facility] 5 08:53:48 Abdominal aortic aneurysm without rupture 08473682 Active 2024 Not Available [facility] 5 08:54:19 Hyperlipidemi a 38189130 Active 2024 Not Available [facility] 5 08:54:20 Iron deficiency anemia 04458044 Active 2024 Not Available [facility] 5 12:58:42 Recurrent depression 127673874 Active 2024 Not Available [facility] 5 12:58:44 Abdominal aortic aneurysm 781031002 Active 2024 Jonah Khan MD [address] [facility], [address], [place], [address] , [facility] 5 15:23:25 Atrial fibrillation 33798135 Active 2024 Jonah Khan MD [address] , [address], [place], [address] , [facility] 5 15:24:30 Chronic kidney disease stage 3A 345583686 Active 2024 Jonah Khan MD [address] , [address], [place], [address] , [facility] 5 15:24:38 Chronic obstructive pulmonary disease 23631912 Active 2024 Jonah Khan MD [address] [facility], [address], [place], [address] , [facility] 5 15:24:43 History of malignant neoplasm of uterine body 131347323 Active 2024 Jonah Khan MD [address] [facility] [address] [facility], [address], [place], [address] , [facility] 5 15:24:52 Gastroesophag eal reflux disease without esophagitis 748420127 Active 2024 Jonah Khan MD [address] [facility] [address], [address], [place], [address] , [facility] 5 15:24:57 Essential hypertension 39542819 Active 2024 Jonah Khan MD [address] [facility] [address] [facility] [address], [address], [place], [address] , [facility] 5 15:25:03 Mixed hyperlipidemi a 578373153 Active 2024 Jonah Khan MD [address] [facility] [address], [address], [place], [address] , [facility] 5 15:25:10 Neurogenic urinary bladder 462053353 Active 2024 Jonah Khan MD [address] [facility] [address], [address], [place], [address] , [facility] 5 15:25:20 Sick sinus syndrome 33823282 Active 2024 Jonah Khan MD [address] [facility] [address] [facility] [address], [address], [place], [address] , [facility] 5 15:25:25 Pneumonia 438289549 Active 2024 Abby Razo NP [address] [facility] [address] [facility] [address], [facility] [address], [place], [address] , [facility] 5 20:37:34 Notes:Some problems listed i n Documents: #[id number], #[id number] could not be added to this patient's [...] in Arterial blood by Pulse oximetry Systolic And Diastolic Provider Name and Address Organization Details Last Updated DateTime 5 593996. 72 g 68 /min 18 /min 97.5 [degF] 96 % 96 % 121/82 mm[Hg] Abby Razo NP [address] [facility] [address] [facility], [address], [place], [address], [email or web address] 5 14:01:27 Date Recorded Systolic And Diastolic Provider Name and Address Organization Details Last Updated DateTime 04/13/2024 93/76 mm[Hg] Jonah Khan MD [address] [facility] [address] [facility], [address], [place], [address], [email or web address] 04/13/2024 08:22:45 Date Recorded Heart rate Respiratory rate Body temperature Oxygen saturation Oxygen saturation in Arterial blood by Pulse oximetry Systolic And Diastolic Provider Name and Address Organization Details Last Updated DateTime 5 96 /min 18 /min 98.5 [degF] 97 % 97 % 101/78 mm[Hg] DERIAN BEE NP [address] [facility], [address], [place], [address], [email or web address] 5 15:46:11 Date Recorded Heart rate Respiratory rate Body temperature Oxygen saturation Oxygen saturation in Arterial blood by Pulse oximetry Systolic And Diastolic Provider Name and Address Organization Details Last Updated DateTime 5 94 /min 18 /min 97.6 [degF] 94 % 94 % 109/81 mm[Hg] DERIAN BEE NP [address] [facility], [address], [place], [address], [email or web address] 5 13:05:59 Date Recorded Body weight Heart rate Respiratory rate Body temperature Oxygen saturation Oxygen saturation in Arterial blood by Pulse oximetry Systolic And Diastolic Provider Name and Address Organization Details Last Updated DateTime 5 23419.6 3 g 76 /min 18 /min 98.3 [degF] 96.99 % 96.99 % 128/70 mm[Hg] Abby Razo NP [address] [facility], [address], [place], [address], [email or web address] 5 12:35:40 Social History Question Answer Notes LastModified by Organization Details LastModified Time Tobacco Smoking Status Never Smoker Jonah Khan MD [address] [facility], [address], [place], [address], [email or web address] 03/12/2024 15:37:56 Do You Have An Advance Directive? No Information not available 03/12/2024 What Is Your Code Status? Full Code No Art Nutrition Information not available 04/08/2024 Where Do You Live? SingleLevelHouse Information not available 04/08/2024 Do You Have A Medical Power Of Svp Marketing? No Information not available 04/08/2024 What Was [...] SARS-COV-2 (COVID-19) vaccine, UNSPECIFIED 03/06/2020 dev Reyes [facility] 03/12/2024 15:19:00 SARS-COV-2 (COVID-19) vaccine, UNSPECIFIED 04/06/2020 dev Reyes [facility] 03/12/2024 15:19:19 SARS-COV-2 (COVID-19) vaccine, UNSPECIFIED 01/19/2021 dev Reyes [facility] 03/12/2024 15:19:30 SARS-COV-2 (COVID-19) vaccine, UNSPECIFIED 07/08/2021 dev Claudiagiovanna Reyes [facility] 03/12/2024 15:19:37 Past Encounters Encounter ID Performer Location Encounter Start Date Encounter Closed Date Diagnosis/Indication Diagnosis SNOMED-CT Code Diagnosis ICD10 Code Diagnosis Note [id number] Jonah Khan MD [facility] at [facility] on [address] [place] [address] 03/12/2024 14:57:39 03/13/2024 09:59:50 Clostridium difficile colitis 418375084 A04.72 concern for sepsis secondary to c diff underwent treatment then question if colonized at [facility] n[facility] for sxcomplete course of PO vanco Acute kidney injury 1466 9001 N17.8 ARF on CRFimprove d with IVFmonitor renal function Idiopathic avascular necrosis of bone 2363636625 M87.852 avascular necrosis left femoral head on imaging was seen by ortho now with plan to f/u for replacemen t Abdominal aortic aneurysm 328942299 I71.43 [facility] ded to PMH Asthenia 17138653 R53.1 PT OT eval and treatmonit or fall risk and need for increased support in community Atrial fibrillation 4943 6004 I48.0 xarelto 20 mg qdmetoprol ol 50 mg bidmonitor for rate controlreq uired IV lopressor in hospital Chronic ki dney disease stage 3A 881901559 N18.31 carrying dx with recent ARFmonitor renal functionav oid nephrotoxi c meds as ablenephro consult prn Chronic ob structive pulmonary disease 23240855 J41.1 added to PMHmonitor utilizatio n of albuterol History of malignant neoplasm of uterine body 613439519 Z85.42 added to PMH Gastroesop hageal reflux disease without esophagitis 109671709 K21.9 pantoprazo le 40 mg qdmonitor for sx relief Essential hypertension 30205446 I10 metoprolol 50 mg bidmonitor bp and need to titrate Mixed hyperlipidemia 267 127874 E78.2 simvastati n 40 mg qdcontinue d Neurogenic urinary bladder 111727245 N31.8 abdi cath and care Sick sinus syndrome 3608 3008 I49.5 hx of with pacer in place [id number] LEESA Lynch at [facility] on [address] [place] [address] 03/19/2024 09:16:20 03/20/2024 09:36:50 Clostridium difficile colitis 860381933 A04.72 stools resolvedmo nitor for recurrent loose stool Acute kidney injury 1466 9001 N17.8 labs pending todaylast labs in range 21/0.60 Idiopathic avascular necrosis of bone 0089981122 M87.852 avascular necrosis left femoral head on imaging was seen by ortho now with plan to f/u for replacemen tcontinue PT OT see HPI Atrial fibrillation 4943 6004 I48.0 xarelto 20 mg qdmetoprol ol 50 mg bidrate controlled at 79 [id number] LEESA Lynch at [facility] on [address] [place] [address] 03/22/2024 11:37:26 03/25/2024 11:02:46 Acute kidney injury 10191642 N17.8 stable for patientlas t labs in range 24/0.80enc ourage PO fluids Idiopathic avascular necrosis of bone 7266537057 M87.852 continue PTPt ambulated short distances up to 30' within room x4 trials, RW, SBA with cues for improved ozypbra704 30: Car transfer scheduled for this date [...] ol 50 mg bidrate controlled at 79 [id number] LEESA Lynch at [facility] on [address] [place] [address] 03/27/2024 12:47:31 03/28/2024 13:18:07 Acute kidney injury 01131697 N17.8 no labs this week for some reason-add cbc bmp tomorrow 03/28 Atrial fibrillation 4943 6004 I48.0 see HPI- had nuclear stress test today, will follow up tomorrow with eli lockhart amiodarone 125 mg every other day per cardsxarel to 20 mg qdmetoprol ol 50 mg bid Cough 86056669 R05.9 STAT chest xray two viewsadd cbc with bmp tomorrowsw ab for flu and covid nowmonitor resp status Nausea 115142203 R11.0 continue prn compazine and re-eval in 30 days [id number] LEESA Fergusonone at [facility] on [address] [place] [address] 03/28/2024 09:25:01 03/29/2024 13:23:38 Acute kidney injury 08943847 N17.8 labs pending today Atrial fibrillation 4943 6004 I48.0 see HPI- had nuclear stress test, follow up with cards tomorrowco ntinue amiodarone 125 mg every other day per cardsxarel to 20 mg qdmetoprol ol 50 mg bid Cough 87521836 R05.9 waiting on xray resultsif positive send home with miquel spent greater than 15 minutes discussing postpone of DC with patient and SW, ultimately wants to leave, wrote rx for miquel Nausea 074748683 R11.0 continue prn compazine Idiopathic avascular necrosis of bone 5944159231 M87.852 avascular necrosis left femoral head on imaging was seen by ortho now with plan to f/u for replacemen t Abdominal aortic aneurysm 769304829 I71.43 followed by [facility] vascular Asthenia 65400069 R53.1 improved Chronic ki dney disease stage 3A 775434579 N18.31 carrying dx with recent ARFPCP to follow labs Chronic ob structive pulmonary disease 96187810 J41.1 added to PMH History of malignant neoplasm of uterine body 107502428 Z85.42 added to PMH Gastroesop hageal reflux disease without esophagitis 083670298 K21.9 pantoprazo le 40 mg qd Essential hypertension 00334686 I10 metoprolol 50 mg bid Mixed hyperlipidemia 267 739118 E78.2 simvastati n 40 mg qdcontinue d Neurogenic urinary bladder 698847044 N31.8 abdi cath and care Sick sinus syndrome 3608 3008 I49.5 hx of with pacer in place [id number] Abby Razo NP [facility] [address] [place] [address] 04/08/2024 13:58:51 04/09/2024 13:16:49 Acute kidney injury 73597480 N17.8 hxlikely in setting of dehydratio n from diarrheacb c bmp weekly x 3 monitor Atrial fibrillation 4943 6004 I48.0 digoxin 125 mcg qodxarelto 20 mg qdmetoprol ol 50 mg bid Idiopathic avascular necrosis of bone 2706816046 M87.852 PT/OT eval and treatchole calciferol 25 mcg qdhydrocod one tyl q 6 hours prn painsuppor tive caremonito r Clostridiu m difficile colitis 265437785 A04.72 tested neg for cdif this admission, had it last admissions tools improving 1-2 per dayvanomyc in po for 2 more dosesmonit or for recurrent loose stool Abdominal aortic aneurysm 237985935 I71.43 [facility] vascularap pt with Dr Crook per pt coming upmonitor Asthenia 73766060 R53.1 PT OT eval and treatmonit or fall risk and need for increased support in community Chronic ki dney disease stage 3A 857840231 N18.31 carrying dx with recent ARFmonitor renal functionav oid nephrotoxi c meds as ablenephro consult prn Chronic ob structive pulmonary disease 81449797 J41.1 albuterol prnmonitor History of malignant neoplasm of uterine body 697188532 Z85.42 hx of Gastroesop hageal reflux disease without esophagitis 939547712 K21.9 pantoprazo le 40 mg qdmonitor for sx relief Essential hypertension 85481419 I10 metoprolol 50 mg bidmonitor bp and need to titrate Mixed hyperlipidemia 267 170963 E78.2 simvastati n 40 mg qdcontinue d Neurogenic urinary bladder 449106121 N31.8 abdi cath and carechange monthly per regular regimenmon itor for s/s of infection Sick sinus syndrome 3608 3008 I49.5 hx of with pacer in place Iron defic iency anemia 04641608 D50.9 ferrous sulfate qdvit c qdmonitor labs Recurrent depression 191 900905 F32.A lexapro 10 mg po qdmonitorp sych prn Pneumonia 529883534 J18. 9 with sepsis pneumoniah ad course of ceftriaxon e in hospalb prnduoneb q 4 hours prnmonitor cbc and bmp weekly x 3 Recurrent falls 72927287 2 R29.6 pt with falls from home and very deconditio nedPT OT eval and treatsuppo rtive caremonito r [id number] [facility] [address] [place] [address] 04/13/2024 08:22:12 04/16/2024 10:05:52 Sepsis 08745471 A41.89 complete course of abxmonitor for recurrent infection Asthenia 03932912 R53.1 PT OT eval and treatmonit or fall risk and need for increased support in community Clostridiu m difficile colitis 537204087 A04.72 concern for sepsis secondary to c diff underwent treatment then question if colonized at [facility] n[facility] for sxcomplete course of PO vanco Acute kidney injury 1466 9001 N17.8 ARF on CRFimprove d with IVFmonitor renal function Idiopathic avascular necrosis of bone 5951713373 M87.852 avascular necrosis left femoral head on imaging was seen by ortho now with plan to f/u for replacemen tcoordinat e care Abdominal aortic aneurysm 311261222 I71.43 [facility] vascularad ded to PMH Atrial fibrillation 4943 6004 I48.0 xarelto 20 mg qdmetoprol ol 50 mg bidmonitor for rate control Chronic ki dney disease stage 3A 052960370 N18.31 carrying dx with recent ARFmonitor renal functionav oid nephrotoxi c meds as ablenephro consult prn Chronic ob structive pulmonary disease 83983994 J41.1 added to PMHmonitor utilizatio n of albuterol History of malignant neoplasm of uterine body 829979335 Z85.42 added to PMH Gastroesop hageal reflux disease without esophagitis 551990415 K21.9 pantoprazo le 40 mg qdmonitor for sx relief Essential hypertension 29263748 I10 metoprolol 50 mg bidmonitor bp and need to titrate Mixed hyperlipidemia 267 926133 E78.2 simvastati n 40 mg qdcontinue d Neurogenic urinary bladder 030042229 N31.8 abdi cath and care Sick sinus syndrome 3608 3008 I49.5 hx of with pacer in place [id number] DERIAN BEE [facility] [address] [place] [address] 04/17/2024 15:45:04 04/18/2024 14:24:58 Sepsis 44355880 A41.89 completed course of abxmonitor for recurrent infectionV SS, clinically stableChec k labs prn Idiopathic avascular necrosis of bone 5927835926 M87.852 avascular necrosis left femoral head on imaging was seen by ortho now with plan to f/u for replacemen tcoordinat e care with OrthoPT OT eval and tx. Asthenia 72489028 R53.1 PT OT eval and treatmonit or fall risk and need for increased support in community Clostridiu m difficile colitis 271412455 A04.72 concern for sepsis secondary to c diff underwent treatment then question if colonized at baselinemo nitor for sxcomplete d course of PO vanco Acute kidney injury 1466 9001 N17.8 ARF on CRFimprove d with IVFmonitor renal function Abdominal aortic aneurysm 003621021 I71.43 [facility] vascularad ded to PMH Atrial fibrillation 4943 6004 I48.0 xarelto 20 mg qdmetoprol ol 50 mg bidmonitor for rate control Chronic ki dney disease stage 3A 433420596 N18.31 carrying dx with recent ARFmonitor renal functionav oid nephrotoxi c meds as ablenephro consult prn Chronic ob structive pulmonary disease 00490972 J41.1 added to PMHmonitor utilizatio n of albuterol History of malignant neoplasm of uterine body 486908894 Z85.42 added to PMH Gastroesop hageal reflux disease without esophagitis 521517782 K21.9 pantoprazo le 40 mg qdmonitor for sx relief Essential hypertension 97409523 I10 metoprolol 50 mg bidmonitor bp and need to titrate Mixed hyperlipidemia 267 699922 E78.2 simvastati n 40 mg qdcontinue d Neurogenic urinary bladder 457758457 N31.8 abdi cath and carecontin ue methenamin e 1 gm qd for UTI proph. Sick sinus syndrome 3608 3008 I49.5 hx of with pacer in place [id number] DERIAN BEE NP [facility] [address] 04/24/2024 10:46:51 04/26/2024 14:47:06 Sepsis 70705309 A41.89 resolved.c ompleted course of abxmonitor ing for recurrent infectionV SS, clinically stableChec k labs prn Idiopathic avascular necrosis of bone 4985179693 M87.852 avascular necrosis left femoral head on imaging was seen by ortho now with plan to f/u for replacemen tcoordinat e care with OrthoPT OT eval and tx.Monitor pain, [facility] Asthenia 49450445 R53.1 Continue PT OTmonitor fall risk and need for increased support in community Clostridiu m difficile colitis 354546791 A04.72 concern for sepsis secondary to c diff underwent treatment then question if colonized at baselinemo nitor for sxcomplete d course of PO vanco Acute kidney injury 1466 9001 N17.8 ARF on CRFimprove d with IVFmonitor renal functionav oid nephrotoxi cs Abdominal aortic aneurysm 626191530 I71.43 [facility] vascularad ded to PMH Atrial fibrillation 4943 6004 I48.0 Continue:x arelto 20 mg qdmetoprol ol 50 mg bidmonitor for rate control Chronic ki dney disease stage 3A 798780327 N18.31 carrying dx with recent ARFmonitor renal functionav oid nephrotoxi c meds as ablenephro consult prn Chronic ob structive pulmonary disease 99428769 J41.1 added to PMHmonitor utilizatio n of albuterol History of malignant neoplasm of uterine body 232381360 Z85.42 added to PMH Gastroesop hageal reflux disease without esophagitis 904026980 K21.9 pantoprazo le 40 mg qdmonitor for sx relief Essential hypertension 55109867 I10 continue metoprolol 50 mg bidmonitor bp and need to titrate Mixed hyperlipidemia 267 333381 E78.2 simvastati n 40 mg qdcontinue d Neurogenic urinary bladder 974482508 N31.8 Chronic - indwelling abdi cath x yrs.contin ue methenamin e 1 gm qd for UTI proph. Sick sinus syndrome 3608 3008 I49.5 hx of with pacer in place Insomnia 466339952 G47.0 9 Pt. requesting sleep aid - add melatonin 5 mg q HS prnMonitor use and effect. Cramp in lower limb 4499 82692 R25.2 In calves, comes and goes, gets some relief when legs moved and stretched. Already on Fe, vitamin/mi neral supplement s.Also on statin.Elle ck labs - CBC, BMP Mg FeContinue to monitor closelyCon home extension agent tonic water prnAddmaria del carmen dum - will add tizanidine 2 mg q hs prn for now - monitor use and effect. [id number] Abby Razo NP [facility] [address] [place] [address] 04/29/2024 12:34:25 05/01/2024 15:15:14 Sepsis 32126368 A41.89 resolved.c ompleted course of abx Insomnia 657783837 G47.0 9 while her melatonin addedcontm elatonin 5 mg q HS prnMonitor use and effect outpt with pcp Cramp in lower limb 4499 34659 R25.2 In calves, comes and goes, gets some relief when legs moved and stretched. resolvingA lready on Fe, vitamin/mi neral supplement s.Also on statin.add ed tizanidine 2 mg q hs prn here with effect will continue prnfu with pcp outpt Idiopathic avascular necrosis of bone 1838227380 M87.852 avascular necrosis left femoral head on imaging was seen by ortho now with plan to f/u for replacemen t=coordina te care with Ortho for future surgeryPT OT eval and tx. prn outptMonit or outpt with pcp and fu with ortho on 05/06hydroc odone/tyl 1 tab q 6 hours prn Asthenia 25210656 R53.1 Continue PT OTmonitor fall risk and need for increased support in community Clostridiu m difficile colitis 880461808 A04.72 resolvedco ncern for sepsis secondary to c diff underwent treatment then question if colonized at [facility]emo nitor for sxcomplete d course of PO vanco and symptomati c Acute kidney injury 1466 9001 N17.8 ARF resolvedAR F on CRFimprove d with IVFmonitor renal functionav oid nephrotoxi csfu with pcp Abdominal aortic aneurysm 613271118 I71.43 followed by [facility] vascular Atrial fibrillation 4943 6004 I48.0 Continue:x arelto 20 mg qdmetoprol ol 50 mg bidmonitor for rate controlfu with pcp Chronic ki dney disease stage 3A 034786322 N18.31 carrying dx with recent ARFmonitor renal functionav oid nephrotoxi c meds as ablenephro consult prnfu with pcp Chronic ob structive pulmonary disease 34321338 J41.1 hx ofmonitor utilizatio n of albuterolf u with pcp History of malignant neoplasm of uterine body 126376529 Z85.42 hx ofchronic foleyfu with pcp Gastroesop hageal reflux disease without esophagitis 783769942 K21.9 pantoprazo le 40 mg qdmonitor for sx relief wtih pcp outpt Essential hypertension 77817840 I10 continue metoprolol 50 mg bidmonitor bp and need to titrate outpt with pcp Mixed hyperlipidemia 267 085481 E78.2 simvastati n 40 mg qdcontinue d with pcp outpt Neurogenic urinary bladder 089202648 N31.8 Chronic - indwelling abdi cath x [...] Ruiz Member ID Guarantor Name 05/01/2024 1 [facility] - MEDICARE PREFERRED (MEDICARE REPLACEMENT HMO) CLARIKESHAWN Jung [id number] Trupti Fabiana Notes Date Note Type Note Provider Name and Address Organization Details Recorded Time 04/08/2024 text/html Patient is a 73 yo female seen today for an initial intake visit. PMH significant for AAA follow by [facility] vascular, a fib, crf stage , copd, gerd, hx uterine ca,hld, htn, neurogenic bladder with abdi, SSS s/p pacer, avascualar necrosis of left hip Trupti is a 73 yo f here at [facility] for rehab post [facility] admission for recent hospitalization 02/27-03/03 for c diff sepsis and dc to rehab at [facility] subsequently dc'd on 03/28/24. Since discharged from home she returned to the [facility] ER on 03/29/24- for progressively weak, persistent [...] high riskBIMS 15/15 Abby Razo NP [address] [facility], [address], [place], [address], [email or web address] 04/08/2024 20:42:30 04/13/2024 text/html Patient is [...] diff prophylaxis PMH significant forAAA follow by [facility] vasculara fibcrf stage 3copdgerdhx uterine cahldhtnneurogenic bladder with foleySSS s/p pacer admit to facility for continued care and therapy Jonah Khan MD [address] [facility], [address], [place], [address], [email or web address] 04/13/2024 08:34:24 04/17/2024 text/html Trupti is [...] 04/08 stable. PMH significant forAAA follow by [facility] stage 3copdgerdhx uterine cahldhtnneurogenic bladder with foleySSS s/p pacer admit to facility for continued care and therapy DERIAN BEE NP [address] [place] [address], [address], [place], [address], [facility] [email or web address] 04/17/2024 15:56:56 04/24/2024 text/html Trupti is see [...] med changes. PMH significant forAAA follow by [facility] vasculara fibcrf stage 3copdgerdhx uterine cahldhtnneurogenic bladder with foleySSS s/p pacer DERIAN BEE NP [address] [facility] [address] [facility], [address], [place], [address], [email or web address] 04/24/2024 14:07:19 04/29/2024 text/html Trupti is see n today for a discharge visit. PMH significant for AAA follow by [facility] vascular, a fib, crf stage , copd, [...] diff prophylaxis. She was admitted to to [facility] for [facility] and care. Since here [...] pain and spasms. Abby Razo NP [address] [facility], [address], [place], [address], [email or web address] 05/01/2024 12:03:58 OBGyn Episode No OBEpisode recorded.
== END 2024-08-27 08:56 | disposition home or self-care (01) ==
LOC: HO.HCS 08:19
PROVIDERS: PCP Internal Medicine; Visit Provider Nurse Practitioner Family
DX: Z51.89 Encounter for other specified aftercare (principal); I48.19 Other persistent atrial fibrillation; Z95.0 Presence of cardiac pacemaker; I10 Essential (primary) hypertension; R94.31 Abnormal electrocardiogram [ECG] [EKG]; I71.43 Infrarenal abdominal aortic aneurysm, without rupture; M16.12 Unilateral primary osteoarthritis, left hip
CPT/HCPCS: 99214; G2211

== ENCOUNTER → 2024-08-27 08:18 | Outpatient (BNVA) | payer MEDICARE, SELFPAY | PROVIDERS: PCP Internal Medicine; Visit Provider Nurse Practitioner Family | DX: I10 Essential (primary) hypertension (principal); Z95.0 Presence of cardiac pacemaker; R94.31 Abnormal electrocardiogram [ECG] [EKG]; I48.19 Other persistent atrial fibrillation; Z51.89 Encounter for other specified aftercare; I71.43 Infrarenal abdominal aortic aneurysm, without rupture; M16.12 Unilateral primary osteoarthritis, left hip | CPT/HCPCS: 99212 ==

== ENCOUNTER → 2024-09-03 23:59 | Outpatient (BNV) | payer MEDICARE, SELFPAY ==
--- NOTE | 2024-09-10 15:45 | MHC.OFFVIS ---
Intake Visit Reasons: Remote Device Check- Medtronic Allergies No Known Allergies (No Known Allergies*) Allergy (Verified 08/27/24 08:22) PFSH Medical History Chronic atrial fibrillation Small bowel obstruction AAA (abdominal aortic aneurysm) Permanent atrial fibrillation Atrial fibrillation On beta mayra at home Legally blind Retention, urine Pneumonia Exercise hypoxemia GERD (gastroesophageal reflux disease) Hypertension Persistent atrial fibrillation COPD (chronic obstructive pulmonary disease) Dyspnea on exertion HTN (hypertension) Cardiac pacemaker in situ Sick sinus syndrome Surgical History History of appendectomy H/O vaginal surgery History of endoscopy Hx of colonoscopy History of esophagogastroduodenoscopy (EGD) Hx of hysterectomy Hx of cardiac pacemaker History of radiofrequency ablation (RFA) for complex left atrial arrhythmia History of cardioversion Family History Father CHF (congestive heart failure) Cancer Pacemaker Mother Emphysema lung Social History Household Members: Family Household Members Other:: AND SON Housing: House Are you a primary home health aide caregiver to a significant other at home: No Do you presently have visiting nurse or other home services: No Unable to assess alcohol history related to: Unknown Alcohol intake: former Patient Tobacco Use Status: Former Tobacco user Tobacco use type: Cigarette Advance Directives Date on File: 07/19/22 service: No Office Procedures Cardiac Device Check Cardiac Device Check Details: Remote pacemaker report generated 09/03/2024. Pacemaker function is adequate [id number] Cardiac Device Interrogation, pacemaker Procedure code (CPT) selection complete Assessment & Plan Assessment & Plan (1) Cardiac pacemaker in situ: Code(s): Z95.0 - Presence of cardiac pacemaker Category: Medical Plan: See above Coding Level of Care Code Procedure Only Diagnoses Cardiac pacemaker in situ Z95.0 CPT Codes Cardiac Device Check - Cardiac Device 12: [id number] Cardiac Device Interrogation, pacemaker ([id number])
== END ==
PROVIDERS: PCP Internal Medicine; Visit Provider Internal Medicine Cardiovascular Disease
DX: Z45.018 Encounter for adjustment and management of other part of cardiac pacemaker (principal)
CPT/HCPCS: 93294

== ENCOUNTER 2024-09-16 14:57 | Outpatient (AMB) | payer MEDICARE, SELFPAY ==
[2024-09-16 15:16] VITALS: BP 114/72; PULSE 79
--- NOTE | 2024-09-16 15:16 | A.OFFVIS_ITS ---
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: Wireless Construction Manager Present Allergies No Known Allergies (No Known Allergies*) Allergy (Verified 09/16/24 15:21) Medication List - Last Reconciled 09/16/24 by MARILY Vigil albuterol sulfate 90 mcg/actuation 2 puffs inhalation Q6H PRN ascorbic acid (vitamin C) (Vitamin C) 1,000 mg (2 x 500 mg) PO DAILY calcium carbonate 500 mg PO DAILY PRN [catheter insertion kit As directed- 2 kits per month] [catheter irrigation kit As directed- 2 kits per month] cholecalciferol (vitamin D3) 25 mcg PO DAILY colestipol 1 g PO BID cyanocobalamin (vitamin B-12) 1,000 mcg PO DAILY dicyclomine 10 mg PO BID digoxin 125 mcg PO Q OTHER DAY escitalopram oxalate 10 mg PO DAILY estradiol 0.01%(0.1mg/gram) 2 grams vaginal MOFR ferrous sulfate 325 mg PO DAILY fluticasone propionate 50 mcg/actuation 2 sprays intranasal DAILY PRN [abdi catheters As directed- 2 catheters per month] folic acid 1 mg PO DAILY hydrocodone-acetaminophen 5-325 mg 1 tab PO Q6H PRN ipratropium-albuterol 0.5 mg-3 mg(2.5 mg base)/3 mL 3 mL inhalation Q4H PRN Lactobacillus rhamnosus GG (Culturelle) 1 cap PO DAILY lansoprazole 30 mg PO DAILY [leg bags 2 catheter leg bags per month] magnesium citrate 200 mg PO BEDTIME methenamine hippurate 1 g PO DAILY 90 days metoprolol tartrate 50 mg PO BID [night bags As directed- 1 catheter night bag per month] ondansetron HCl 4 mg PO Q6H PRN prochlorperazine maleate 5 mg PO Q12H PRN rivaroxaban (Xarelto) 20 mg PO DAILY@1700 simethicone (Anti-Gas Ultra Strength) 180 mg PO BID simvastatin 40 mg PO BEDTIME [sterile water As directed for abdi catheter irrigation ] tizanidine 2 mg PO BEDTIME zinc sulfate 50 mg PO DAILY HPI HPI s/p gen ch and med ck: Details: Trupti is a 73-year-old female with past medical history of hypertension, GERD, COPD, sick sinus syndrome status post pacemaker placement, abdominal aortic aneurysm followed by Dr Crook, avascular necrosis of left hip and in need of left total hip replacement, chronic atrial fibrillation, on anticoagulation who recently underwent a pacemaker generator change and presents for device check and follow up Today she reports that pacemaker site is healing well. The bruising has resolved and swelling improved. She has had no concerns for infection. She continues to have chronic significant discomfort in the left hip region and ambulates only short distances with the use of a walker. Her son is present and states that she is walking less each day. She has occasional random discomfort in her chest, mostly occurring at rest. She has no chest discomfort clearly brought on by activity. She has some shortness of breath with activity which could be related to deconditioning. She denies PND, orthopnea or edema. No heart palpitations, presyncope, syncope, falls. She will get lightheaded if she stands up quickly. She is sitting in a wheelchair admits to being very sedentary. She takes her meds as directed. She has follow-up with Dr. Crook, vascular in October. She has no hip or abdominal aortic aneurysm surgery planned. [facility] [place] surgery would be too high risk and declined to do it. [facility] Medical History Chronic atrial fibrillation Small bowel obstruction AAA (abdominal aortic aneurysm) Permanent atrial fibrillation Atrial fibrillation On beta mayra at home Legally blind Retention, urine Pneumonia Exercise hypoxemia GERD (gastroesophageal reflux disease) Hypertension Persistent atrial fibrillation COPD (chronic obstructive pulmonary disease) Dyspnea on exertion HTN (hypertension) Cardiac pacemaker in situ Sick sinus syndrome Surgical History History of appendectomy H/O vaginal surgery History of endoscopy Hx of colonoscopy History of esophagogastroduodenoscopy (EGD) Hx of hysterectomy Hx of cardiac pacemaker History of radiofrequency ablation (RFA) for complex left atrial arrhythmia History of cardioversion Family History Father CHF (congestive heart failure) Cancer Pacemaker Mother Emphysema lung Social History Household Members: Family Household Members Other:: AND SON Housing: House Are you a primary care management coordinator to a significant other at home: No Do you presently have visiting nurse or other home services: No Unable to assess alcohol history related to: Unknown Alcohol intake: former Patient Tobacco Use Status: Former Tobacco user Tobacco use type: Cigarette Advance Directives Date on File: 07/19/22 service: No Review of Systems Const All systems reviewed & are unremarkable except as noted in HPI and below Reports weakness ENT Denies dizziness Card Denies chest pain, Denies chest pain at rest, Denies chest pain with activity, Denies rapid heart rate, Denies pedal edema, Denies edema, Denies leg edema, Denies lightheadedness, Denies palpitations, Denies dyspnea, Denies dyspnea on exertion and Denies orthopnea Resp Denies cough, Denies dyspnea and Denies dyspnea on exertion GI Denies hematochezia and Denies change in stool character Musc Details: pain left hip with ambulation. Mostly sitting Reports abnormal gait, Reports limited range of motion, Denies muscle cramps, Reports muscle weakness, Denies numbness, Denies radiating pain into limb, Denies stiffness and Denies tingling Neuro Reports abnormal gait, Denies dizziness, Denies numbness, Denies tingling and Reports weakness Endo Denies palpitations Physical Exam Vital Signs: Last Vital Signs Pulse 79 09/16/24 15:16 BP 114/72 09/16/24 15:16 Const Other: sitting in wheelchair General: cooperative, healthy appearing, comfortable and no acute distress Orientation/consciousness: patient oriented x3 Neck Neck: Yes normal visual inspection Chest Other: pacer site left chest - incision well approximated, mild residual swelling, old skin glue partially intact, resolved ecchimosis Resp Other: mouth breaths loudly - denies sob Effort & Inspection: normal respiratory effort Auscultation: no rales, no rhonchi and no wheezes Cardio Rate: regular rate Rhythm: abnormal rhythm Heart sounds: S1 normal heart sound present, S2 normal heart sound present, no gallops, no murmurs and no rubs Peripheral pulses: Peripheral pulses 2+ throughout Neuro General: patient oriented x3 Extrem General: Yes normal to inspection Psych Appearance: grossly normal Mental Status: mental status grossly normal Speech and movement: Normal speech and movement present Office Procedures Cardiac Device Check Cardiac Device Check Details: Medtronic dual-chamber pacemaker interrogation today shows battery 14.4 years, VVIR mode low rate 60, RV threshold 1.0 volts at 0.4 milliseconds, persistent atrial fibrillation, brief high V rates activity less than 1 hour per day [id number] Cardiac Device Check, pacemaker dual lead Procedure code (CPT) selection complete Assessment & Plan Assessment & Plan (1) Visit for wound check: Code(s): Z51.89 - Encounter for other specified aftercare Category: Medical Plan: Pacemaker generator change 08/23/2024. Prior Site ecchymosis and swelling significantly improved. Incision fully intact, with small amount of skin glue still present. Site care reviewed with her. (2) Persistent atrial fibrillation: Code(s): I48.19 - Other persistent atrial fibrillation Category: Medical Plan: History of persistent atrial fibrillation that is treated with heart rate control using metoprolol and digoxin, and anticoagulation, using Xarelto. No reports of heart palpitations. Digoxin level 0.5 on 03/28/2024. No medication changes made. Order for repeat dig level placed. (3) Cardiac pacemaker in situ: Code(s): Z95.0 - Presence of cardiac pacemaker Category: Medical Plan: Medtronic dual-chamber pacemaker with recent generator change. Device interrogation today shows it is functioning normally. Remote monitoring in use. Next office visit due 6 months. (4) HTN (hypertension): Code(s): I10 - Essential (primary) hypertension Category: Medical Plan: Blood pressure goal less than 130/80. Blood pressure normal today. No med changes made (5) Abnormal EKG: Code(s): R94.31 - Abnormal electrocardiogram [ECG] [EKG] Category: Medical Plan: EKG done on prior visit showing atrial fibrillation, scoping ST depressions inferior lateral leads, no significant change from prior EKG, asymptomatic. She does not have a known history of CAD. She does have cardiac risk factors including sedentary, hypertension, hyperlipidemia, age. Echocardiogram done 02/29/2024 showed EF 60-65%, severely dilated left atrium, moderate to severe decrease in RV systolic function, mild MR. Recent pharmacological nuclear stress test was negative for ischemia. No further testing needed at this time. (6) Infrarenal abdominal aortic aneurysm (AAA) without rupture: Code(s): I71.43 - Infrarenal abdominal aortic aneurysm, without rupture Category: Medical Plan: Follows with Dr. Crook (7) Osteoarthritis of left hip: Code(s): M16.12 - Unilateral primary osteoarthritis, left hip Category: Medical Plan: Follows with Dr. Oropeza Plan I discussed with the patient the current status of her pacemaker site, which is healing well, and emphasized the importance of not touching it to avoid infection. We talked about the challenges of managing hip pain and the risks associated with surgery. I explained the management of atrial fibrillation with medications and the role of Xarelto in preventing stroke. We also discussed the need for further evaluation of the abdominal aortic aneurysm. Cardiology follow- up in six months. Orders: Orders Digoxin Today I48.19 - Other persistent atrial fibrillation Patient Instructions: - Do not touch or pick at the pacemaker site to prevent infection. - Try to increase daily activity as able. - Continue taking all prescribed medications, including metoprolol, digoxin, and Xarelto. - Follow up in six months for reassessment and pacemaker check. Patient was informed and verbally consented to the use of an ambient scribe for clinic note documentation during this visit. Visit time spent on chart review, interview, assessment, orders, documentation. Coding Level of Care Code Est Pt Level 3 (23622) Complex EM visit Add On G2211 Diagnoses Visit for wound check Z51.89 Persistent atrial fibrillation I48.19 Cardiac pacemaker in situ Z95.0 HTN (hypertension) I10 Abnormal EKG R94.31 Infrarenal abdominal aortic aneurysm (AAA) without rupture I71.43 Osteoarthritis of left hip M16.12 CPT Codes Cardiac Device Check - Cardiac Device 2: [id number] Cardiac Device Check, pacemaker dual lead ([id number]) Time Spent (min) 22
--- OUTSIDE RECORDS SUMMARY | 2024-09-16 15:20 | XMS_ITS | Clinical Summary ---
Author Organization [facility] Address [address] [facility] [address] [place] [phone] Phone Care Team Providers Care Special Procedures Technologist Name Role Phone Freddy Pugh MD Unavailable [phone] Barb Worley MD Unavailable Raffy Orona MD Primary Care Provider [phone] Anayeli Quach Unavailable [phone] Allergies No known active allergies Medications XARELTO 20 mg Tab Take 1 tablet by mouth daily with dinner. Active albuterol 90 mcg/actuation inhalerIndicatio ns:COPD (chronic obstructive pulmonary disease) INHALE 2 PUFFS INTO THE LUNGS EVERY 6 HOURS NEEDED FOR WHEEZE 8.5 g 1 022 Active bismuth subsalicylate (PEPTO BISMOL) 262 mg/15 mL suspension Take 30 mL by mouth every 6 (six) hours as needed for indigestion. Active soy isofla-blk cohosh-mag bark (ESTROVEN) 155 mg Cap Take 155 mg by mouth daily. Active lansoprazole (PREVACID) 30 MG capsule Take 30 mg by mouth daily. Active ondansetron (ZOFRAN) 4 MG tablet Take 4 mg by mouth every 8 (eight) hours as needed for nausea. Active docusate sodium (COLACE) 100 MG capsuleIndicatio ns:Constipation, unspecified constipation type Take 1 capsule (100 mg total) by mouth 2 (two) times a day. 100 capsule 3 023 Active Additional Information Patient taking differently:100 mg OralDaily as needed, Reported on 06/30/2023 colesevelam (WELCHOL) 625 mg tablet Take 2 tablets by mouth 2 (two) times a day. Active prochlorperazine (COMPAZINE) 5 MG tablet TAKE 1 TABLET BY MOUTH EVERY 12 HOURS NEEDED FOR NAUSEA/VOMITIN G FOR 30 DAYS Active zinc sulfate (ZINCATE) 50 mg zinc (220 mg) capsule Take 1 capsule by mouth every morning. Active magnesium citrate 100 mg Cap Take 200 mg by mouth nightly at bedtime. 60 capsule 3 Active polyethylene glycol (MIRALAX) 17 gram/dose powderIndication s:Constipation, unspecified constipation type Take 17 g by mouth daily as needed. 510 g 1 Active cholecalciferol (VITAMIN D3) 400 unit tablet Take 400 Units by mouth daily. Active calcium carbonate/vitami n D3 (CALCIUM 500 + D, D3, ORAL) Take 1 tablet by mouth daily. 2 gummies daily Active ANTI-GAS ULTRA STRENGTH 180 mg capsule Take 1 capsule by mouth 2 (two) times a day. Active methenamine (HIPREX) 1 gram tablet Take 1 g by mouth daily. For UTI suppression for [address] Dixon Urologist Active VITAMIN B-12 1000 MCG tablet TAKE 1 TABLET BY MOUTH EVERY DAY 90 tablet 2 024 Active folic acid (FOLVITE) 1 MG tablet TAKE 1 TABLET BY MOUTH EVERY DAY 90 tablet 3 024 Active estradioL (ESTRACE) 0.01 % (0.1 mg/gram) vaginal creamIndications :Vaginal atrophy INSERT 2 GRAMS VAGINALLY NIGHTLY FOR 2 WEEKS THEN INSERT 2 GRAMS 2 TIMES A WEEK AT NIGHT THEREAFTER 42.5 g 2 024 Active Additional Information Patient taking differently: 2 g Vaginal 2 times weekly, INSERT 2 GRAMS VAGINALLY NIGHTLY FOR 2 WEEKS THEN INSERT 2 GRAMS 2 TIMES A WEEK AT NIGHT THEREAFTER, Reported on 05/03/2024 fluticasone propionate (FLONASE) 50 mcg/actuation nasal sprayIndications :Chronic rhinitis SPRAY 2 SPRAYS BY NASAL ROUTE DAILY 48 mL 5 024 Active melatonin 5 mg Tab Take by mouth nightly at bedtime as needed. Active metoprolol tartrate (LOPRESSOR) 50 MG tablet Take 50 mg by mouth daily. Active YUVAFEM [address] 10 mcg vaginally 2 (two) times a week. Active ipratropium-albu teroL (DUONEB) 0.5-3 mg (2.5 mg base)/3 mL nebulizer solution Inhale 3 mL into the lungs as needed. Active digoxin (LANOXIN) 125 mcg tablet Take 125 mcg by mouth daily. 025 Active colestipol (COLESTID) 1 gram tablet Take 1 g by mouth. 025 Active ascorbic acid, vitamin C, (VITAMIN C) 1000 MG tablet Take 1 tablet by mouth every morning. 025 Active lactobacillus acidophilus and helveticus (LACTINEX) 100 million cell tablet TAKE 1 TABLET (100 MILLION CELLS TOTAL) BY MOUTH DAILY. 30 packet 11 025 Active dicyclomine (BENTYL) 10 MG capsuleIndicatio ns:Irritable bowel syndrome, unspecified type TAKE 1 CAPSULE BY MOUTH 2 TIMES A DAY. 180 capsule 2 025 Active tiZANidine (ZANAFLEX) 2 MG tabletIndication s:Muscle spasm TAKE 1 TABLET (2 MG TOTAL) BY MOUTH NIGHTLY AT BEDTIME. 90 tablet 2 025 Active ipratropium (ATROVENT) 42 mcg (0.06 %) nasal sprayIndications :Allergic rhinitis, unspecified seasonality, unspecified trigger 2 sprays by Nasal route 4 (four) times a day. 15 mL 12 025 Active sodium zirconium cyclosilicate (LOKELMA) 10 gramIndications: Hyperkalemia 10 grams p.o. Monday and Monday as directed. 4 packet 1 025 Active simvastatin (ZOCOR) 40 MG tablet Take 1 tablet (40 mg total) by mouth nightly at bedtime. 90 tablet 3 025 Active ferrous sulfate 325 mg (65 mg asa'carsarmiut iron) tablet TAKE 1 TABLET (65MG ELEMENTAL IRON), BY MOUTH EVERY OTHER DAY TOLERATED 45 tablet 1 025 Active escitalopram oxalate (LEXAPRO) 10 MG tabletIndication s:Anxiety TAKE 1 TABLET BY MOUTH EVERY DAY 90 tablet 3 025 Active HYDROcodone-acet aminophen (NORCO) 5-325 mg per tabletIndication s:Left hip pain,Chronic bilateral low back pain without sciatica Take 1 tablet by mouth every 8 (eight) hours as needed for pain (specific location in comments) (Hip and back pain). Partial fill ok 84 tablet 025 2024 Active tamsulosin (FLOMAX) 0.4 mg Cap Take 0.4 mg by mouth daily. Take 1 capsule by mouth every day at bedtime 021 2021 Discontinued(N o longer taking) escitalopram oxalate (LEXAPRO) 10 MG tabletIndication s:Anxiety take 1 tablet by mouth every day 90 tablet 3 024 2024 Discontinued HYDROcodone-acet aminophen (NORCO) 5-325 mg per tabletIndication s:Left hip pain,Chronic bilateral low back pain without sciatica Take 1 tablet by mouth every 8 (eight) hours as needed for pain (specific location in comments) (Hip and back pain). Partial fill ok 84 tablet 025 2024 Discontinued(R eorder) Active Problems Patient Care Coordination No te Formatting of this note migh t be different from the original. This patient is engaged with [facility]. For questions and care coordination please call [phone]. 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 Patient's pain with movement especially with abduction and adduction. Tenderness to palpation over the gracilis muscle. Most likely a strain which will improve with time. Patient advised to lay low on leg exercises. Apply Voltaren cream twice daily Ice Assessment & Plan (06/23/2023 3:32 PM EDT): Homans' sign as she is describing it sounds positive the leg itself looks unremarkable when compared to the other leg. Rule out DVT by means of duplex ultrasound because the patient is on Xarelto low probability so this can be done Monday for example at [facility] and that is where we will fax the order to. Acute upper respiratory infection 06/23/2023 Assessment & Plan (06/23/2023 3:35 PM EDT): COPD exacerbation versus viral upper respiratory infection versus strep versus PE. The patient is rate of breathing was faster than it should be but she is new to me and she does have a history of COPD. Her lungs sounded fairly clear to auscultation, I could not appreciate the wheezing that the nurse was appreciating. I am sending her for duplex ultrasound if it is positive for a leg clot then I will proceed to obtain a CT scan with PE protocol IV contrast. Her problem list states that she has renal failure but her last BUN and creatinine were normal in the April of this year. We obtained a swab for RSV, COVID, flu, strep infection. I told her my nurse would only call her if one of the 4 test came back positive with further instruction. If she is COVID-positive with the COPD and her tachypnea I would start her on Paxlovid. Tamiflu if positive influenza. Strep I would start antibiotic RSV no treatment. We would still call the. Age-related osteoporosis wit hout current pathological fracture 05/02/2023 Assessment & Plan (08/22/2023 12:13 PM EDT): 72 y.o. woman w/ osteoporosis on bone density w/o hx fracture. Currently getting a good amount of calcium via diet/supplement. Advised to shift gummy from qd to bid with food to improve absorption. She did discuss rx with friend (had a friend who had bilateral AFF, so she herself was reluctant to consider rx, but friend had been on rx for YEARS). She is edentulous. She is now willing to take rx understanding the risk of AFF is significantly higher when used for longer periods of time. Would tentatively plan on 5 yrs of oral rx followed by a drug holiday. Will repeat labs. If all ok (calcium corrects ok given albumin), will plan on adding alendronate. Discussed administration of rx. Assessment & Plan (05/02/2023 3:06 PM EDT): She is a 72 year old post menopausal woman who presents with osteoporosis found on routine bone density with no history of fractures. She has a history of radiation therapy when she was 43 after having a total hysterectomy at the age of 43 for uterine cancer. Her daily calcium intake is good between dietary calcium and calcium supplement. She is taking 1800 IU daily of vitamin D. She had labs drawn through her VNA, we are awaiting these results to determine if adjustments are needed to either her calcium or vitamin D dosing. Reviewed normal bone physiology across the lifespan. Reviewed role of adequate calcium, vitamin D, weight-bearing exercise & avoidance of falls along with pharmacologic rx with indications, risks & benefits. Provided with written literature from [employer]. We discussed medication options, including anti-resorptives, i.e. bisphosphonates, either oral or IV; denosumab, and teriparetide. We discussed the potential risk of ONJ & AFF with the anti- resorptives & concept of a drug holiday after a period of time with the bisphosphonates to help limit the risk of side effects. She is hesitant to use the bisphosphonate due to a friend developing brittle bones from use. Discussed talking with the friend as to how long they used the medication. Once we get labs will call patient to see what her thoughts are regarding treatment. If she wants we will set up another office visit to further discuss treatment options. She was also seen by Dr Enriquez to discuss the treatment plan Weight loss 05/23/2022 Assessment & Plan (05/23/2022 6:29 AM EDT): Await colonoscopy tomorrow, check TSH, labs printed to be completed with home labs Urinary retention 07/27/2021 Overview (11/09/2023): Fol w [facility] urology ov 07/21/23 saw Shawnee Person, HEALTH CARE ATTORNEY has suprapubic tube in place- VNA changes Assessment & Plan (07/27/2021 5:44 PM EDT): Reason for the visit was urinary retention to discuss possible options. The urologist and urogynecologist both recommend suprapubic catheter placement. We tend to agree that this would be a better solution. She is worried about infections but I told her that the current Cadet catheter that she has been chronically since last December is just going to invite a urinary tract infection much more so than the suprapubic. We found out that the patient is legally blind and fall prone. Uses a cane to get about, with all these different issues going on including the Cadet catheter it is reasonable that this nondriving patient be allowed a handicap sticker for her automobile so that she does not have to walk long distances. We will fill out her paperwork accordingly. I counseled her to move ahead with the decision for a suprapubic catheter, it is a very easy procedure. She will consider. Shingles of eyelid 04/20/2021 Assessment & Plan (04/20/2021 5:53 PM EDT): Trigeminal shingles left-sided maxillary and frontal but not mandibular. There is still time in the window to trial the antiviral so the [facility] provider had already called out in and we encouraged the daughter to go get that medicine and start it right away. New shingles did not seem apparent at first but the daughter and I saw the blisters so it seemed pretty reasonable that that was the right diagnosis. No signs of secondary infection but the patient's daughter will be on the look out and will call in an antibiotic if needed. Urinary tract infection asso ciated with indwelling urethral catheter 04/20/2021 Assessment & Plan (04/20/2021 5:54 PM EDT): The VNA is coming tomorrow that is to say Monday and I will order them to pull out the Cadet and put in a new one since it has been indwelling for a long time. When they do I want them to get a urinalysis with culture reflex. I did not feel like getting the urine from today created feel it was noncontaminated. I believe also that he antibiotic was called in by the [facility] practitioner. That prescription should be picked up to we concurred. Patient did not appear in urosepsis but the daughter seems pretty smart as to what signs to look for since it already happened a while ago. Follow-up depending on clinical course. Patient will follow up with urology regarding the catheter. Abdominal aortic aneurysm (AAA) without rupture 07/08/2020 Overview (07/08/2020): Infrarenal on 2019 CT Lumbar degenerative disc disease 07/08/2020 Overview (05/23/2022): INCOME TAX ADMINISTRATOR P: 05/2022 Urine toxicology: 05/2022 Assessment & Plan (05/23/2022 6:28 AM EDT): Chronic pain, no improvement expected. She will continue hydrocodone/acetaminophen as prescribed as this is helping her remain functional in her ADLs. She does not tolerate additional therapies at this time, stays as active as possible. INCOME TAX ADMINISTRATOR P agreement completed today, urine toxicology screening pending. Sick sinus syndrome 07/08/2020 Chronic kidney disease (CKD) 06/01/2020 Hypertensive heart and renal disease with (congestive) heart failure 05/14/2020 Assessment & Plan (05/23/2022 6:29 AM EDT): BP well managed Iron deficiency anemia 05/14/2020 Atrial fibrillation Overview (07/08/2020): Hx cardioversion. Hx RFA (complex left atrial arrythmia). Assessment & Plan (05/23/2022 6:29 AM EDT): Continue Xarelto Pacemaker COPD (chronic obstructive pulmonary disease) Assessment & Plan (05/23/2022 6:28 AM EDT): Stable symptoms CKD (chronic kidney disease) Encounters Date Type Department Care Team Description 09/03/2024 Refill [facility] Internal [facility] [address] [facility] [place] [address] Raffy Orona MD Medication Refill (CSRP) 08/26/2024 Orders Only [facility] Internal Medicine [address] [place] [address] Yee Betancourt MD 08/19/2024 Refill [facility] [address] [facility] [place] [id number] Raffy Orona MD Medication Refill 08/14/2024 Telephone [facility] Department of Orthopaedic Surgery, Arthroplasty Service [address] [facility], 3rd Floor, [address] [place] [address] Domi Hughes MD, PhD 08/06/2024 Refill [facility] [address] [place] [address] Raffy Orona MD Medication Refill (CSRP) 08/05/2024 Telephone [facility] [address] [place] [address] Raffy Orona MD lackey watery stool 07/31/2024 Telephone [facility] Medicine [address] [place] [address] Raffy Orona MD Medication Refill 07/22/2024 Telephone [facility] Internal [facility] [address] [place] [address] Raffy Orona MD Question on Vitamin B12 07/19/2024 Telephone [facility] [address] [place] [address] Raffy Orona MD Appointment 07/18/2024 Telephone [facility] [address] [place] [address] Raffy Orona MD Stronger script 07/18/2024 Orders Only [facility] [address] [place] [address] Yee Betancourt MD 07/16/2024 Telephone [facility] [address] [place] [address] Raffy Orona MD Cardiovascular referral 07/15/2024 Refill [facility] [address] [facility] [place] [address] Raffy Orona MD Medication Refill 07/10/2024 Orders Only [facility] [address] [place] [address] ProviderYee MD 07/02/2024 Orders Only [facility] [address] [place] [address] Yee Betancourt MD 06/24/2024 Telephone [facility] Internal [facility] [address] [place] [address] Raffy Orona MD Potassium 06/20/2024 Orders Only [facility] Internal [facility] [address] [place] [address] ProviderYee MD 06/19/2024 Orders Only [facility] at [address] [address] Carolynn Franklin PA-C 06/18/2024 Refill [facility] at [address] [address] Carolynn Franklin PA-C Medication Refill 06/18/2024 Refill [facility] Internal [facility] [address] [place] [address] Raffy Orona MD Medication Refill from Last 3 Months Immunizations Immunization Administration Dates Next Due COVID-19 (Pre-11/28) Moderna Vaccine, mRNA, PF 01/19/2021,04/06/2020,03/06/2020 Influenza High-Dose Quadriva lent Preservative Free IM 01/17/2022 Influenza Quadrivalent Preservative Free IM 11/07 Family History Medical History Relation Comments Arthritis Son Diabetes Son type 2 Hyperlipidemia Son Hypertension Son Irregular heart beat Son Relation Status Comments Daughter Alive Father Mother Son Alive Social History Tobacco Use Types Packs/Day Years Used Date Smoking Tobacco: Former Cigarettes 0.1 32 1 985 - 2017 Smokeless Tobacco: Never Tobacco Cessation:Counseling Given: Not Answered Alcohol Use Standard Drinks/Week Comments Not Currently 0 (1 standard drink = 0.6 oz pur e alcohol) Education Answer Date Recorded Are you interested in more education? Not on bijal e 06/03/2022 Are you concerned about learning? Not on file 06/03/2022 No 06/03/2022 No 06/03/2022 Digital Access Answer Date Recorded No 06/28/2022 No 06/28/2022 Reliable internet access at home? Not on file 06/28/2022 Device with a working camera? Not on file Intimate Partner Violence Answer Date R ecorded Denied Basic Needs Not on file 12/12/2022 In the past 12 months have y ou been in a relationship with a person who hurts, threatens, or tries to control you? No 12/12/2022 Worried food would run out Not on file 12/12 In the past 12 months have y ou been in a relationship with a person who hurts, threatens, or tries to control you? No 12/12/2022 Comments Unknown Sex and Gender Information Value Date Recorded Sex Assigned at Not on file Legal Sex Female 1:18 PM EDT Gender Identity Not on file Sexual Orientation Not on file Last Filed Vital Signs Vital Sign Reading Time Taken Comments Blood Pressure 98/66 05/30/2024 3:12 PM EDT Pulse 83 05/30/2024 3:12 PM EDT Temperature 35.7 C (96.3 F) 05/30/2024 3:12 PM EDT Respiratory Rate 19 05/30/2024 3:12 PM EDT Oxygen Saturation 97% 05/30/2024 3:12 PM EDT Inhaled Oxygen Concentration - - Weight 71.7 kg (158 lb) 05/30/2024 3:12 PM EDT Height 157.5 cm (5' 2.01 ) 05/30/2024 3:12 PM ED T Body Mass Index 28.89 05/30/2024 3:12 PM EDT Plan of Treatment Upcoming Encounters Date Type Department Care Team (Late st Contact Info) Description 01/29/2025 9:00 AM EST Office Visit [facility] [place] [facility] [address] [place] [address] Raffy Orona MD [address] [place] [address] [email or web address] Health Maintenance Due Date Last Done Comments Adult Td,Tdap Booster 1950 HEPATITIS C SCREENING 12/26/1967 PNEUMOCOCCAL VACCINES (50+ years) (1 of 2 - PCV) 1968 ZOSTER VACCINES (1 of 2) 1968 COLOGUARD 1994 FIT TEST 1994 FOBT 1994 SIGMOIDOSCOPY 1994 VIRTUAL COLONOSCOPY 1994 RSV VACCINE (1 - Risk 60-74 years 1-dose series) 2009 COLONOSCOPY 05/18/2023 05/17/2022, 03/09, 02/13/2019 COLORECTAL CANCER SCREENING 05/18/2023 COVID-19 VACCINE ( season) 2023 07/08/2021, 01/19/2021, 04/06/2020, Additional history exists DEPRESSION SCREENING 01/13/2024 01/12/2023, 12/13/19 23 BLOOD PRESSURE 11/29/2024 05/30/2024 MAMMOGRAM 03/09/2025 03/09/2023, 08/07/2020 CREATININE LEVEL 03/28/2025 03/28/2024, 12/2024, 03/12/2024, Additional history exists POTASSIUM LEVEL 03/28/2025 03/28/2024, 03/09, 03/12/2024, Additional history exists LIPID PANEL 04/23/2028 04/24/2023, 04/06, 04/24/2023, Additional history exists SMOKING STATUS SCREENING (Every 5 Years) 05/30/2029 05/30/2024 OSTEOPOROSIS SCREENING INITIAL (ONE-TIME) Completed 03/09/2023, 12/12/2022 HEPATITIS A VACCINES Aged Out No long er eligible based on patient's age to complete this topic HIB VACCINES Aged Out No longer eligi ble based on patient's age to complete this topic MENINGOCOCCAL VACCINES (ACWY) Aged Out No longer eligible based on patient's age to complete this topic MENINGOCOCCAL VACCINES (B) Aged Out N o longer eligible based on patient's age to complete this topic Medical Devices Not on file Procedures Procedure Name Priority Date/Time Associated Diagnosis Comments OUTSIDE IMAGING Routine 08/25/2024 2:42 PM EDT OUTSIDE LAB Routine 07/17/2024 11:27 AM EDT OUTSIDE LAB Routine 07/17/2024 9:03 AM EDT OUTSIDE LAB Routine 06/28/2024 9:44 AM EDT OUTSIDE LAB Routine 06/28/2024 9:13 AM EDT OUTSIDE LAB Routine 06/20/2024 11:10 AM EDT OUTSIDE LAB Routine 06/19/2024 2:55 PM EDT BASIC METABOLIC PANEL Routine 03/28/2024 7:45 AM EST Idiopathic aseptic necrosis of left femur Acute peptic ulcer with hemorrhage and obstruction Abdominal aortic aneurysm (AAA) without rupture, unspecified part Essential hypertension, malignant OUTSIDE HDL Routine 04/24/2023 BI MAMMOGRAM SCREENING (BILATERAL) Routine 03/09/2023 12:27 PM EST Screening mammogram for breast cancer HM DEXA SCAN Routine 03/09/2023 12:22 PM EST HM COLONOSCOPY FOR RESULT ENTRY ONLY Routine 05/17/2022 from Last 3 Months or Most Recently Relevant to Health Maintenance Results * Outside Imaging Report Only (08/25/2024 2:42 PM EDT) us Historical Provider IMG XR CHEST Final Res ult * Outside Lab (07/17/2024 11:27 AM EDT) Only the most recent of6 resultswithin the time period is included. us Historical Provider LAB BLOOD ORDERABLES Edit ed Result - Final * (ABNORMAL) Basic metabolic panel (03/28/2024 7:45 AM EST) SODIUM 135 133 - 146 mmol/L [facility] CHLORIDE 104 96 - 108 mmol/L [facility] POTASSIUM 5.0 3.3 - 5.1 mmol/L [facility] Comment:Specimen slightly he molyzed, result may be falsely elevated. CO2 17(L) 21 - 35 mmol/L [facility] BUN 17 6 - 19 mg/dL [facility] CREATININE 0.80 0.5 - 1.5 mg/dL [facility] GLUCOSE 100(H) 70 - 99 mg/dL [facility] CALCIUM 8.8 8.4 - 10.3 mg/dL [facility] EGFR 77 >59 mL/min/1.7 3m2 [facility] Comment:Estimated glomerular filtration rate calculated using the CKD-EPI refit equation. ANION GAP 19 10 - 20 mmol/L [facility] Blood 03/28/2024 7:45 AM EST 03/28/2024 9:22 AM EST Jonah Khan MD LAB BLOOD ORDERABLES Final Resul t [address] [address] * Outside HDL (04/24/2023) HDL - External 65 40 - 80 mg/dL Yee Betancourt MD LAB BLOOD ORDERABLES Mylene l Result * Mammogram Screening (Bilateral) (03/09/2023 12:27 PM EST) Anatomical Region Laterality Modality Breast Left, Breast Right, Breast Bilateral Bila teral Breast Screening us Raffy Orona MD IMG MG EXAMS Final Result * HM DEXA SCAN (03/09/2023 12:22 PM EST) us Raffy Orona MD HEALTH MAINTENANCE Edited Res ult - Final * HM COLONOSCOPY FOR RESULT ENTRY ONLY (05/17/2022) Elena Jacobo [facility] HEALTH MAINTENANCE Edward kaushik Result - Final from Last 3 Months or Most Recently Relevant to Health Maintenance Insurance [employer] MEDICARE PART A & B [facility] [employer] RE[employer] MEDICARE PART [facility] [employer] MEDICARE PART A & B Member Subscriber Plan / Payer (Ef fective 2017-Present) Name:Fabiana Trupti Member ID:[id number] Relation to Subscriber:Self Name:ToñocarmeloTrupti mora Subscriber ID:[id number] Payer ID:[id number] Group ID:Not on file Type:Medicare Address: [facility] [employer] [facility] [facility] [address] [place] [address] [employer] PREFERRED HMO REPLACEMENT MEDICARE PART A & B [employer] PREF[employer]ED [employer] REPLACEMENT MEDICARE PART A & B [facility] [employer]REF[employer] REPLACEMENT MEDICARE PART A & B [employer] REPLAC[employer] MEDICARE PART A & B [facility] [place] [id number] [employer]REF[employer]ED [employer] REPLACEMENT MEDICARE PART A & B [facility] [employer] PREF[employer]ED [employer] REPLACEMENT MEDICARE PART A & [facility] Advance Directives For more information, please contact: [phone] (9AM - 5PM [facility] [place], Monday-Monday) Documents on File Type Date Recorded Patient Park Guide Expl anation Healthcare Proxy 07/19/2022 Healthcare Proxy - 07/19/22 Care Teams Special Procedures Technologist Relationship Specialty Start Date End Date Raffy Orona MD [address] [place] [phone] [email or web address] PCP - General Internal Medicine 06/27/22 Freddy Pugh MD [address] [place] [address] [address] [place] [address] Cardiology 06/01/20 Barb Worley MD [address] [place] [address] Drive [address] [place] [address] Pulmonary Disease 07/08/20 Anayeli Quach MBBS [address] [place] [id number] [email or web address] Medical Oncology 10/20/23 Additional Source Comments The information contained in this document represents components of the legal health record. It is not the complete legal health record.[facility]
--- OUTSIDE RECORDS SUMMARY | 2024-09-16 15:20 | XMS_ITS | Encounter Summary ---
Author Organization [facility] Address [address] [place] [address] Phone Care Team Providers Care Java Developer Architect Name Role Phone Raffy Orona MD Primary Care Provider [phone] Encounter Details Date Type Department Care Team (Late st Contact Info) Description 11/10/2021 Telephone [facility] [address] [place] [address] Inocente Martínez MD Social History [...] Office Visit [facility] [address] [place] [address] Ck Hunter MD [address] [phone] documented as of this encounter Visit Diagnoses Not on filedocumented in this encounter Care Teams Java Developer Architect Relationship Specialty Start Date End Date Raffy Orona MD [address] [place] [address] PCP - General Internal Medicine 06/05/24 documented as of this encounter
== END 2024-09-16 15:47 | disposition home or self-care (01) ==
LOC: HO.HCS 14:57
PROVIDERS: PCP Internal Medicine; Visit Provider Nurse Practitioner Family
DX: I48.19 Other persistent atrial fibrillation (principal); Z95.0 Presence of cardiac pacemaker; I10 Essential (primary) hypertension; R94.31 Abnormal electrocardiogram [ECG] [EKG]; I71.43 Infrarenal abdominal aortic aneurysm, without rupture; M16.12 Unilateral primary osteoarthritis, left hip
CPT/HCPCS: 93280; 99213; G2211

== ENCOUNTER → 2024-09-16 14:57 | Outpatient (BNVA) | payer MEDICARE, SELFPAY | PROVIDERS: PCP Internal Medicine; Visit Provider Nurse Practitioner Family | DX: Z45.010 Encounter for checking and testing of cardiac pacemaker pulse generator [battery] (principal); I10 Essential (primary) hypertension; R94.31 Abnormal electrocardiogram [ECG] [EKG]; I71.43 Infrarenal abdominal aortic aneurysm, without rupture; M16.12 Unilateral primary osteoarthritis, left hip; I48.19 Other persistent atrial fibrillation | CPT/HCPCS: 93280; 99212 ==

== ENCOUNTER 2024-09-27 11:00 | Outpatient (REF) | payer MEDICARE, SELFPAY ==
--- OUTSIDE RECORDS SUMMARY | 2024-09-27 12:53 | XMS_ITS | Encounter Summary ---
Author Organization [facility] Address [address] [place] [address] Phone Care Team Providers Care Liturgical Music Director Name Role Phone KeatonFreddy MD Unavailable [phone] Barb Worley MD Unavailable [phone] Raffy Orona MD Primary Care Provider Anayeli Quach Unavailable [phone] Reason for Visit * Reason Onset Date Comments Vitamin B order 09/26/2024 Encounter Details Date Type Department Care Team (Late st Contact Info) Description 09/26/2024 Telephone [facility] Internal Medicine [address] [place], [place] [phone] Raffy Orona MD [address] [place], [place] [phone] [email or web address] Vitamin B order Social History Tobacco Use Types Packs/Day Years Used Date Smoking Tobacco: Former Cigarettes 0.1 32 1 985 - 2017 Smokeless Tobacco: Never Alcohol Use Standard Drinks/Week [...] on file documented as of this encounter Progress Notes * Chemo Jimenez - 09/26/2024 1:47 PM EDT Patient called states her neighbor is after her to get her Vitamin B checked. She is wondering if provider is willing to place an order. If so she would like that and the other outstanding orders to be faxed to [facility]. I explained that the potassium needs to be done at the hospital but she states she does not go to the hospital. documented in this encounter Plan of Treatment Upcoming Encounters Date Type Department Care Team (Late st Contact Info) Description 01/29/2025 9:00 AM EST Office Visit [facility] [place] Internal Medicine [address] [place] [address] Raffy Orona MD [address] [place] [address] [email or web address] documented as of this encounter Visit Diagnoses Not on filedocumented in this encounter Additional Health Concerns Assessment Noted Time PHQ-9 Depression Total Score: 12 023 2:01 PM EST PHQ-2 Depression Total Score: 1 01/13/20 23 4:41 PM EST documented as of this encounter Care Teams Liturgical Music Director Relationship Specialty Start Date End Date Raffy Orona MD [address] [place] [address] PCP - General Internal Medicine 06/27/22 Freddy Pugh MD [address] [place] [address] [address] [place] [address] Cardiology 06/01/20 Barb Worley MD [address] [place] [address] Drive [address] [place] [address] Pulmonary Disease 07/08/20 Anayeli Quach MBBS [address] [place] [address] Medical Oncology 10/20/23 documented as of this encounter Additional Source Comments The information contained in this document represents components of the legal health record. It is not the complete legal health record.[facility]
--- OUTSIDE RECORDS SUMMARY | 2024-09-27 12:53 | XMS_ITS | Clinical Summary ---
Author Organization [facility] Address [address] [place] [address] Care Team Providers Care Agronomy Advisor Name Role Phone Elena Jacobo REPRODUCTIVE ENDOCRINOLOGIST Primary Care Provider Allergies No known active [...] 2 (two) times a day. Active Pancrelipase, Bht-Twmh-Osvz, (Creon) 4104-[address] Particles Take 1 capsule [...] this topic Medical Devices Implanted Type Area Collaborating Supervising Physician Device Identifier Shelf Expiration Date Model / Serial / Lot Pacemaker Pacemaker Insurance [facility] [place] MEDICARE OUT OF NETWORK [facility] MEDICARE Advance Directives * Full Code (Latest Code Status on File) Date Activated Date Inactivated Comments 12/11/2020 8:56 AM Care Teams Agronomy Advisor Relationship Specialty Start Date End Date Elnea Jacobo NP [address] [place] [address] PCP - General Adult Health - PA/APNP/REPRODUCTIVE ENDOCRINOLOGIST/HOUSE WRECKER 12/11/20
--- OUTSIDE RECORDS SUMMARY | 2024-09-27 12:53 | XMS_ITS | Encounter Summary ---
Author Organization [facility] Address [address] [place] [address] Phone Care Team Providers Care Yarder Boss Name Role Phone Raffy Orona MD Primary Care Provider [phone] Encounter Details Date Type Department Care Team (Late st Contact Info) Description 11/10/2021 Telephone [facility] [address] [place] [address] Inocente Martínez MD Social History [...] Office Visit [facility] [address] [place] [address] Ck Hunter MD [address] [phone] documented as of this encounter Visit Diagnoses Not on filedocumented in this encounter Care Teams Yarder Boss Relationship Specialty Start Date End Date Raffy Orona MD [address] [place] [address] PCP - General Internal Medicine 06/05/24 documented as of this encounter
[2024-09-27 15:48] LABS: CDiff Gene PCR NEGATIVE (Negative)
[2024-09-28 10:25] LABS: E. coli EAEC Not Detected (Not Detect.); E. coli EPEC Not Detected (Not Detect.); E. coli ETEC Not Detected (Not Detect.); E. coli STEC Not Detected (Not Detect.); Shigella sp./EIEC Not Detected (Not Detect.)
== END 2024-09-27 11:01 | disposition home or self-care (01) ==
LOC: HO.HVNA 11:00
PROVIDERS: Visit Provider Nurse Practitioner Family
DX: R11.0 Nausea (principal); R19.7 Diarrhea, unspecified
CPT/HCPCS: 87493; 87507

== ENCOUNTER 2024-10-02 13:27 | Outpatient (REF) | payer MEDICARE, SELFPAY ==
--- OUTSIDE RECORDS SUMMARY | 2024-10-02 14:18 | XMS_ITS | Encounter Summary ---
Author Organization [facility] Address [address] [place] [address] Phone Care Team Providers Care Barber Stylist Name Role Phone KeatonFreddy MD Unavailable [phone] Barb Worley MD Unavailable [phone] Raffy Orona MD Primary Care Provider [phone] Anayeli Quach Unavailable [phone] Reason for Visit * Reason Onset Date Comments Vitamin B order 09/26/2024 Encounter Details Date Type Department Care Team (Late st Contact Info) Description 09/26/2024 Telephone [facility] Internal Medicine [address] [place], [place] [phone] Raffy Orona MD [address] [place], [place] [phone] [email or web address] Vitamin B order Social History Tobacco Use [...] as of this encounter Progress Notes * Jose Manuel Lim - 09/30/2024 9:51 AM EDT Orders faxed to [facility] * Raffy Orona MD - 09/27/2024 6:54 PM EDT Labs ordered, please fax to [facility]. * Raffy Orona MD - 09/27/2024 6:54 PM EDTAddended by: RAFFY ORONA. on: 09/27/2024 06:54 PM Modules accepted: Orders * Chemo Jimenez - 09/26/2024 1:47 PM [...] Description 01/29/2025 9:00 AM EST Office Visit [facility] Internal Medicine [address] [place] [address] Raffy Orona MD [address] [place] [address] [email or web address] Scheduled Orders Name Type Priority Associated Diagnoses Orde r Schedule Vitamin B12 Lab Routine Atrial fibrillation, unspecified type Hyperkalemia Benign essential hypertension Impaired fasting glucose Chronic obstructive pulmonary disease, unspecified COPD type Expected: 09/27/2024, Expires: 09/27/2025 CBC and differential Lab Routine Atrial fibrillation, unspecified type Benign essential hypertension Expected: 09/27/2024, Expires: 09/27/2025 Comprehensive metabolic panel Lab Routine Atrial fibrillation, unspecified type Benign essential hypertension Expected: 09/27/2024, Expires: 09/27/2025 Hemoglobin A1c Lab Routine Impaired fasting glucose Expected: 09/27/2024, Expires: 09/27/2025 TSH Lab Routine Atrial fibrillation, unspecified type Benign essential hypertension Expected: 09/27/2024, Expires: 09/27/2025 documented as of this encounter Visit Diagnoses Diagnosis Atrial fibrillation, unspecified type- Primary Hyperkalemia Hyperpotassemia Benign essential hypertension Essential hypertension, benign Impaired fasting glucose Chronic obstructive pulmonary disease, unspecified COPD type documented in this encounter Additional Health Concerns Assessment Noted Time PHQ-9 Depression Total Score: 12 023 2:01 PM EST PHQ-2 Depression Total Score: 1 01/13/20 23 4:41 PM EST documented as of this encounter Care Teams Barber Stylist Relationship Specialty Start Date End Date Raffy Orona MD [address] [place] [address] [email or web address] PCP - General Internal Medicine 06/27/22 Freddy Pugh MD [address] [place] [address] Dr [address] [place] [address] Cardiology 06/01/20 Barb Worley MD [address] [place] [address] Drive [address] [place] [address] Pulmonary Disease 07/08/20 Anayeli Quach MBBS [address] [place] [address] [email or web address] Medical Oncology 10/20/23 documented as of this encounter Additional Source Comments The information contained in this document represents components of the legal health record. It is not the complete legal health record.[facility]
--- OUTSIDE RECORDS SUMMARY | 2024-10-02 14:18 | XMS_ITS | Encounter Summary ---
Author Organization [facility] Address [address] [place] [address] Phone Care Team Providers Care Food Science Professor Name Role Phone KeatonFreddy MD Unavailable [phone] Barb Worley MD Unavailable [phone] Raffy Orona MD Primary Care Provider [phone] Anayeli Quach Unavailable [phone] Reason for Visit * Reason Onset Date Comments Medication Refill 09/26/2024 Encounter Details Date Type Department Care Team (Late st Contact Info) Description 09/26/2024 Telephone Instant Opinion [facility] Internal Medicine [address] [place], [place] [phone] Raffy Orona MD [address] [place], [place] [phone] [email or web address] Medication Refill Social History Tobacco Use Types Packs/Day Years [...] as of this encounter Progress Notes * Raffy Orona MD - 09/30/2024 6:48 PM EDT Spoke to pharmacy patient had not picked up [place] script yet, will be ready tomorrow. Patient is aware. She is also aware she should not be taking the Tizanidine every night. She states she will tryevery other night. * Chemo Jimenez - 09/30/2024 10:46 AM EDT Patient called in checking status of script. * Maeve Cabrera CMA - 09/27/2024 7:38 AM EDT Images from the original note were not included. * Chemo Jimenez - 09/26/2024 1:45 PM EDT Patient called requesting refill of Hydrocodone to [facility] [place] documented in this encounter Plan of Treatment Upcoming Encounters Date Type Department Care Team (Late st Contact Info) Description 01/29/2025 9:00 AM EST Office Visit [facility] Internal Medicine [address] [place] [address] Raffy Orona MD [address] [place] [address] documented as of this encounter Visit Diagnoses Not on filedocumented in this encounter Additional Health Concerns Assessment Noted Time PHQ-9 Depression Total Score: 12 023 2:01 PM EST PHQ-2 Depression Total Score: 1 01/13/20 23 4:41 PM EST documented as of this encounter Care Teams Food Science Professor Relationship Specialty Start Date End Date Raffy Orona MD [address] [place] [address] PCP - General Internal Medicine 06/27/22 Freddy Pugh MD [address] [place] [address] [address] [place] [address] Cardiology 06/01/20 Barb Worley MD [address] [place] [address] [address] [place] [address] Pulmonary Disease 07/08/20 Anayeli Quach MBBS [address] [place] [address] Medical Oncology 10/20/23 documented as of this encounter Additional Source Comments The information contained in this document represents components of the legal health record. It is not the complete legal health record.[facility]
--- OUTSIDE RECORDS SUMMARY | 2024-10-02 14:18 | XMS_ITS | Encounter Summary ---
Author Organization [facility] Address [address] [place] [address] Phone Care Team Providers Care Candy Vendor Name Role Phone Raffy Orona MD Primary Care Provider [phone] Encounter Details Date Type Department Care Team (Late st Contact Info) Description 11/10/2021 Telephone [facility] [address] [place] [address] Inocente Martínez MD Social History [...] Visit [facility] [address] [place] [address] Ck Hunter MD [address] [phone] documented as of this encounter Visit Diagnoses Not on filedocumented in this encounter Care Teams Candy Vendor Relationship Specialty Start Date End Date Raffy Orona MD [address] [place] [address] PCP - General Internal Medicine 06/05/24 documented as of this encounter
--- OUTSIDE RECORDS SUMMARY | 2024-10-02 14:18 | XMS_ITS | Clinical Summary ---
Author Organization [facility] Address [address] [place] [address] Care Team Providers Care Historic Sites Registrar Name Role Phone Elena Jacobo LINER MACHINE OPERATOR HELPER Primary Care Provider Allergies No known active [...] 2 (two) times a day. Active Pancrelipase, Nxt-Epns-Phzl, (Creon) 7919-[address] Particles Take 1 capsule [...] this topic Medical Devices Implanted Type Area Card Checker Device Identifier Shelf Expiration Date Model / Serial / Lot Pacemaker Pacemaker [place] [facility] [facility]IC[facility] Advance Directives * Full Code (Latest Code Status on File) Date Activated Date Inactivated Comments 12/11/2020 8:56 AM Care Teams Historic Sites Registrar Relationship Specialty Start Date End Date Elena Jacobo NP [address] [place] [address] PCP - General Adult Health - PA/APNP/LINER MACHINE OPERATOR HELPER/ELECTRICAL APPLIANCE PREPARER 12/11/20
--- OUTSIDE RECORDS SUMMARY | 2024-10-02 14:19 | XMS_ITS | Clinical Summary ---
Author Organization [facility] Address [address] [facility] [address] [place] [address] Phone Care Team Providers Care Scouring Train Operator Chief Name Role Phone Freddy Pugh MD Unavailable [phone] Barb Worley MD Unavailable [phone] Raffy Orona MD Primary Care Provider [phone] Anayeli Quach Unavailable [phone] Allergies No known active allergies Medications XARELTO 20 mg Tab Take 1 tablet by mouth daily with dinner. 05/26/19 22 Active albuterol 90 mcg/actuation inhalerIndication s:COPD (chronic obstructive pulmonary disease) INHALE 2 PUFFS INTO THE LUNGS EVERY 6 HOURS NEEDED FOR WHEEZE 8.5 g 1 10/30/19 22 Active bismuth subsalicylate (PEPTO BISMOL) 262 mg/15 mL suspension Take 30 mL by mouth every 6 (six) hours as needed for indigestion. 11/12/19 22 Active soy isofla-blk cohosh-mag bark (ESTROVEN) 155 mg Cap Take 155 mg by mouth daily. 12/16/19 22 Active lansoprazole (PREVACID) 30 MG capsule Take 30 mg by mouth daily. Active ondansetron (ZOFRAN) 4 MG tablet Take 4 mg by mouth every 8 (eight) hours as needed for nausea. Active docusate sodium (COLACE) 100 MG capsuleIndication s:Constipation, unspecified constipation type Take 1 capsule (100 mg total) by mouth 2 (two) times a day. 100 capsule 3 10/08/19 23 Active Additional Information Patient taking differently:100 mg OralDaily as needed, Reported on 06/30/2023 colesevelam (WELCHOL) 625 mg tablet Take 2 tablets by mouth 2 (two) times a day. 11/19/19 Active prochlorperazine (COMPAZINE) 5 MG tablet TAKE 1 TABLET BY MOUTH EVERY 12 HOURS NEEDED FOR NAUSEA/VOMITING FOR 30 DAYS 11/08/19 Active zinc sulfate (ZINCATE) 50 mg zinc (220 mg) capsule Take 1 capsule by mouth every morning. 11/22/19 Active magnesium citrate 100 mg Cap Take 200 mg by mouth nightly at bedtime. 60 capsule 3 12/13/19 Active polyethylene glycol (MIRALAX) 17 gram/dose powderIndications :Constipation, unspecified constipation type Take 17 g by mouth daily as needed. 510 g 1 12/20/19 Active cholecalciferol (VITAMIN D3) 400 unit tablet Take 400 Units by mouth daily. Active calcium carbonate/vitamin D3 (CALCIUM 500 + D, D3, ORAL) Take 1 tablet by mouth daily. 2 gummies daily Active ANTI-GAS ULTRA STRENGTH 180 mg capsule Take 1 capsule by mouth 2 (two) times a day. 06/20/19 24 Active methenamine (HIPREX) 1 gram tablet Take 1 g by mouth daily. For UTI suppression for [address] [place] Urologist 09/08/19 24 Active VITAMIN B-12 1000 MCG tablet TAKE 1 TABLET BY MOUTH EVERY DAY 90 tablet 2 01/15/20 24 Active folic acid (FOLVITE) 1 MG tablet TAKE 1 TABLET BY MOUTH EVERY DAY 90 tablet 3 01/15/20 24 Active estradioL (ESTRACE) 0.01 % (0.1 mg/gram) vaginal creamIndications: Vaginal atrophy INSERT 2 GRAMS VAGINALLY NIGHTLY FOR 2 WEEKS THEN INSERT 2 GRAMS 2 TIMES A WEEK AT NIGHT THEREAFTER 42.5 g 2 01/26/20 24 Active Additional Information Patient taking differently: 2 g Vaginal 2 times weekly, INSERT 2 GRAMS VAGINALLY NIGHTLY FOR 2 WEEKS THEN INSERT 2 GRAMS 2 TIMES A WEEK AT NIGHT THEREAFTER, Reported on 05/03/2024 fluticasone propionate (FLONASE) 50 mcg/actuation nasal sprayIndications: Chronic rhinitis SPRAY 2 SPRAYS BY NASAL ROUTE DAILY 48 mL 5 01/30/20 24 Active melatonin 5 mg Tab Take by mouth nightly at bedtime as needed. Active metoprolol tartrate (LOPRESSOR) 50 MG tablet Take 50 mg by mouth daily. 03/12/19 25 Active YUVAFEM [address] 10 mcg vaginally 2 (two) times a week. 03/05/19 25 Active ipratropium-albut Dinesh (DUONEB) 0.5-3 mg (2.5 mg base)/3 mL nebulizer solution Inhale 3 mL into the lungs as needed. 03/12/19 25 Active digoxin (LANOXIN) 125 mcg tablet Take 125 mcg by mouth daily. 05/01/19 25 Active colestipol (COLESTID) 1 gram tablet Take 1 g by mouth. 05/02/19 25 Active ascorbic acid, vitamin C, (VITAMIN C) 1000 MG tablet Take 1 tablet by mouth every morning. 02/13/19 25 Active lactobacillus acidophilus and helveticus (LACTINEX) 100 million cell tablet TAKE 1 TABLET (100 MILLION CELLS TOTAL) BY MOUTH DAILY. 30 packet 11 05/24/19 25 Active dicyclomine (BENTYL) 10 MG capsuleIndication s:Irritable bowel syndrome, unspecified type TAKE 1 CAPSULE BY MOUTH 2 TIMES A DAY. 180 capsule 2 05/28/19 25 Active tiZANidine (ZANAFLEX) 2 MG tabletIndications :Muscle spasm TAKE 1 TABLET (2 MG TOTAL) BY MOUTH NIGHTLY AT BEDTIME. 90 tablet 2 05/29/19 25 Active ipratropium (ATROVENT) 42 mcg (0.06 %) nasal sprayIndications: Allergic rhinitis, unspecified seasonality, unspecified trigger 2 sprays by Nasal route 4 (four) times a day. 15 mL 12 05/31/19 25 Active sodium zirconium cyclosilicate (LOKELMA) 10 gramIndications:H yperkalemia 10 grams p.o. Monday and Monday as directed. 4 packet 1 06/12/19 25 Active simvastatin (ZOCOR) 40 MG tablet Take 1 tablet (40 mg total) by mouth nightly at bedtime. 90 tablet 3 06/21/19 25 Active ferrous sulfate 325 mg (65 mg [facility] iron) tablet TAKE 1 TABLET (65MG ELEMENTAL IRON), BY MOUTH EVERY OTHER DAY TOLERATED 45 tablet 1 06/20/19 25 Active escitalopram oxalate (LEXAPRO) 10 MG tabletIndications :Anxiety TAKE 1 TABLET BY MOUTH EVERY DAY 90 tablet 3 08/21/19 25 Active HYDROcodone-aceta minophen (NORCO) 5-325 mg per tabletIndications :Left hip pain,Chronic bilateral low back pain without sciatica Take 1 tablet by mouth every 8 (eight) hours as needed for pain (specific location in comments) (Hip and back pain). Partial fill ok 84 tablet 09/11/19 25 025 Active tamsulosin (FLOMAX) 0.4 mg Cap Take 0.4 mg by mouth daily. Take 1 capsule by mouth every day at bedtime 01/16/20 21 022 Discontin ued(No longer taking) HYDROcodone-aceta minophen (NORCO) 5-325 mg per tabletIndications :Left hip pain,Chronic bilateral low back pain without sciatica Take 1 tablet by mouth every 8 (eight) hours as needed for pain (specific location in comments) (Hip and back pain). Partial fill ok 84 tablet 08/14/19 25 025 Discontin ued(Reord er) Active Problems Patient Care Coordination No te Formatting of this note migh t be different from the original. [facility] For questions and care coordination please call [phone]. Problem Noted Date Diagnosed Date Muscle strain [...] can be done Monday for example at [facility] and that is where we will [...] & benefits. Provided with written literature from [employer]. We discussed medication options, including anti-resorptives, i.e. [...] home labs Urinary retention 07/27/2021 Overview (11/09/2023): [facility] [place] 07/21/23 saw Shawnee Person NP has suprapubic tube in place- VNA changes [...] Lumbar degenerative disc disease 07/08/2020 Overview (05/23/2022): POWER MANAGER P: 05/2022 Urine toxicology: 05/2022 Assessment & Plan (05/23/2022 6:28 AM EDT): Chronic pain, no improvement expected. She will continue hydrocodone/acetaminophen as prescribed as this is helping her remain functional in her ADLs. She does not tolerate additional therapies at this time, stays as active as possible. POWER MANAGER P agreement completed today, urine toxicology screening [...] Encounters Date Type Department Care Team Description 09/26/2024 Telephone [facility] Internal Medicine [address] [facility] [place] [address] Raffy Orona MD Vitamin B order 09/26/2024 Telephone [facility] Internal Medicine [address] [facility] [place] [address] Raffy Orona MD Medication Refill 09/03/2024 Refill [facility] Internal Medicine [address] [place] [address] Raffy Orona MD Medication Refill (CSRP) 08/26/2024 Orders Only [facility] Internal Medicine [address] [place] [address] eYe Betancourt MD 08/19/2024 Refill [facility] Internal Medicine [address] [place] [address] Raffy Orona MD Medication Refill 08/14/2024 Telephone [facility] Department of Orthopaedic Surgery, Arthroplasty Service [address] [facility], 3rd Floor, [address] [place], [place] [id number] Domi Hughes MD, PhD 08/06/2024 Refill [facility] Internal Medicine [address] [place] [address] Raffy Orona MD Medication Refill (CSRP) 08/05/2024 Telephone [facility] Internal Medicine [address] [place] [address] Raffy Orona MD lackey watery stool 07/31/2024 Telephone [facility] Internal Medicine [address] [place] [address] Raffy Orona MD Medication Refill 07/22/2024 Telephone [facility] Internal Medicine [address] [place] [address] Raffy Orona MD Question on Vitamin B12 07/19/2024 Telephone [facility] Internal Medicine [address] [place] [address] Raffy Orona MD Appointment 07/18/2024 Telephone [facility] Internal Medicine [address] [place] [address] Raffy Orona MD Stronger script 07/18/2024 Orders Only [facility] Internal Medicine [address] [place] [address] Yee Betancourt MD 07/16/2024 Telephone [facility] Internal Medicine [address] [place] [address] Raffy Orona MD Cardiovascular referral 07/15/2024 Refill [facility] Internal [facility] [address] [place] [address] Raffy Orona MD Medication Refill 07/10/2024 Orders Only [facility] Internal [facility] [address] [place] [address] Yee Betancourt MD 07/02/2024 Orders Only [facility] Internal [facility] [address] [place] [address] ProviderYee MD from Last 3 Months Immunizations Immunization Administration [...] 01/29/2025 9:00 AM EST Office Visit [facility] Internal Medicine [address] [place] [address] Raffy Orona MD [address] [place] [address] [email or web address] Health Maintenance Due Date Last Done Comments [...] exists DEPRESSION SCREENING 01/13/2024 01/12/2023, 12/13/19 23 INFLUENZA VACCINE (#1) 2024 01/17/2022, 2020 BLOOD PRESSURE 11/29/2024 05/30/2024 MAMMOGRAM 03/09/2025 03/09/2023, [...] OUTSIDE LAB Routine 07/17/2024 9:03 AM EDT BASIC METABOLIC PANEL Routine 03/28/2024 7:45 [...] Imaging Report Only (08/25/2024 2:42 PM EDT) Historical Provider IMG XR CHEST Final Res ult * Outside Lab (07/17/2024 11:27 AM EDT) Only the most recent of2 resultswithin the time period is included. Historical Provider LAB BLOOD ORDERABLES Edit ed Result - Final * (ABNORMAL) Basic metabolic panel (03/28/2024 7:45 AM EST) SODIUM 135 133 - 146 mmol/L [facility] CHLORIDE 104 96 - 108 mmol/L [facility] POTASSIUM 5.0 3.3 - 5.1 mmol/L [facility] Comment:Specimen slightly he molyzed, result may be falsely elevated. CO2 17(L) 21 - 35 mmol/L [facility] BUN 17 6 - 19 mg/dL [facility] CREATININE 0.80 0.5 - 1.5 mg/dL [facility] GLUCOSE 100(H) 70 - 99 mg/dL [facility] CALCIUM 8.8 8.4 - 10.3 mg/dL [facility] EGFR 77 >59 mL/min/1.7 3m2 [facility] Comment:Estimated glomerular filtration rate calculated using the CKD-EPI refit equation. ANION GAP 19 10 - 20 mmol/L [facility] Blood 03/28/2024 7:45 AM EST 03/28/2024 9:22 AM EST Jonah Khan MD LAB BLOOD ORDERABLES Final Resul t [facility] [address] [place] [address] * Outside HDL (04/24/2023) HDL - External 65 40 - 80 mg/dL Yee Provider LAB BLOOD ORDERABLES Mylene l Result * Mammogram Screening (Bilateral) (03/09/2023 12:27 PM EST) Anatomical Region Laterality Modality Breast Left, Breast Right, Breast Bilateral Bila teral Breast Screening Raffy Orona MD IMG MG EXAMS Final Result * DEXA SCAN (03/09/2023 12:22 PM EST) Raffy Orona MD HEALTH MAINTENANCE Edited Res ult - Final * COLONOSCOPY FOR RESULT ENTRY ONLY (05/17/2022) Elena Jacobo [facility] HEALTH MAINTENANCE Edward kaushik Result - Final from Last 3 Months or Most Recently Relevant to Health Maintenance Insurance [employer] MEDICARE PART A & B [facility] [employer] RE[employer] MEDICARE PART A & B [facility] [employer] MEDICARE PART A & B Member Subscriber Plan / Payer (Ef fective 2017-) Name:Trupti Jung Member ID:[id number] Relation to Subscriber:Self Name:Trupti Jung Subscriber ID:[id number] Payer ID:[id number] Group ID:Not on file Type:Medicare Address: [facility] [employer] [facility] [address] [place] [address] [employer] REPLAC[employer] MEDICARE PART A & B [employer] RE[employer] MEDICARE PART A & B [facility] [employer] RE[place] MEDICARE PART A & B [facility] MEDICARE PREFERRED HMO REPLACEMENT MEDICARE PART A & B [facility] [employer] REPLAC[employer] MEDICARE PART A & B [facility] [employer] RE[employer]AC[employer] MEDICARE PART A & B [facility] Advance Directives For more information, please contact: [phone] (9AM - 5PM Michelle/[facility], Monday-Monday) Documents on File Type Date Recorded Patient Clinical Support Specialist Expl anation Healthcare Proxy 07/19/2022 Healthcare Proxy - 07/19/22 Care Teams Scouring Train Operator Chief Relationship Specialty Start Date End Date Raffy Orona MD [address] [place] [id number] PCP - General Internal Medicine 06/27/22 Freddy Pugh MD [address] [place] [address] [address] [place] [address] Cardiology 06/01/20 Barb Worley MD [address] [place] [address] Drive [address] [place] [address] Pulmonary Disease 07/08/20 Anayeli Quach MBBS [address] [place] [address] Medical Oncology 10/20/23 Additional Source Comments The information contained in this document represents components of the legal health record. It is not the complete legal health record.[facility]
--- OUTSIDE RECORDS SUMMARY | 2024-10-02 14:19 | XMS_ITS | Clinical Summary ---
Author Organization [facility] Address [address] [place] [address] Phone Care Team Providers Care Public Health Dentist Name Role Phone Raffy Orona MD Primary Care Provider [phone] Allergies No known active allergies Medications ascorbic [...] mg by mouth daily 06/01/2020 Active pancrelipase, Bur-Tkif-Pqgp, (Creon) 2316-3400 units capsule TAKE 1 CAPSULE BY MOUTH [...] [facility] [address] [place] [phone] Ck Hunter MD [address] [phone] Health Maintenance Due Date Last Done Comments Breast Cancer Screening 1949 Pneumococcal Vaccine: 50+ Ye ars (1 of 2 - PCV) 1968 Colorectal Cancer Screening: Annual FOBT 1998 Colorectal Cancer Screening: Colonoscopy 1998 Colorectal Cancer Screening: Sigmoidoscopy 1998 Influenza Vaccine (#1) 2024 11/26/2020 Hepatitis B Vaccine Aged Out No longe r eligible based on patient's age to complete this topic Insurance [facility] Care Teams Public Health Dentist Relationship Specialty Start Date End Date Raffy Orona MD [address] [place] [address] PCP - General Internal Medicine 06/05/24
--- OUTSIDE RECORDS SUMMARY | 2024-10-02 14:19 | XMS_ITS | Encounter Summary ---
Author Organization [facility] Address [address] [place] [address] Phone Care Team Providers Care Career Services Director Name Role Phone Freddy Pugh MD Unavailable [phone] Barb Worley MD Unavailable [phone] Raffy Orona MD Primary Care Provider [phone] Anayeli Quach Unavailable [phone] Encounter Details Date Type Department Care Team (Late st Contact Info) Description 08/14/2024 Telephone [facility] Department of Orthopaedic Surgery, Arthroplasty Service [address] [facility], 3rd Floor, [address] [place] [address] Domi Hughes MD, PhD [address] [facility] [address] [place] [address] [email or web address] Social History Tobacco Use Types Packs/Day Years [...] as of this encounter Progress Notes * Charly Silva PA-C - 08/14/2024 3:37 PM EDT Spoke with the patient regarding total hip replacement surgery. She was asking for specific percentages that a hip replacement surgery would be successful in her case and I explained that I am not able to give her a numerical value. I did mention that her co-morbidities do put her at a higher risk of complications following surgery which was previously explained to the patient. Patient expressed an understanding. Charly Silva PA-C Orthopaedics Division of Arthroplasty documented in this encounter Plan of Treatment Upcoming Encounters Date Type Department Care Team (Late st Contact Info) Description 01/29/2025 9:00 AM EST Office Visit [facility] [place] Internal Medicine [address] [place] [address] Raffy Orona MD [address] [place] [address] [email or web address] documented as of this encounter Visit Diagnoses Not on filedocumented in this encounter Additional Health Concerns Assessment Noted Time PHQ-9 Depression Total Score: 12 11/06/2 023 2:01 PM EST PHQ-2 Depression Total Score: 1 01/13/20 23 4:41 PM EST documented as of this encounter Care Teams Career Services Director Relationship Specialty Start Date End Date Raffy Orona MD [address] [place] [address] [email or web address] PCP - General Internal Medicine 06/27/22 Freddy Pugh MD [address] [place] [address] Dr [address] [place] [address] Cardiology 06/01/20 Barb Worley MD [address] [place] [address] Drive [address] [place] [address] Pulmonary Disease 07/08/20 Anayeli Quach MBBS [address] [place] [phone] Medical Oncology 10/20/23 documented as of this encounter Additional Source Comments The information contained in this document represents components of the legal health record. It is not the complete legal health record.[facility]
[2024-10-02 14:41] LABS: Potassium 5.3 mmol/L (3.3-5.1)
[2024-10-02 15:07] LABS: Thyroid Stimulating Hormone 0.96 uIU/mL (0.32-4.0)
== END 2024-10-02 13:28 | disposition home or self-care (01) ==
LOC: HO.HVNA 13:27
PROVIDERS: Visit Provider Internal Medicine
DX: R19.7 Diarrhea, unspecified (principal)
CPT/HCPCS: 36415; 84132; 84443

== ENCOUNTER → 2024-12-05 23:59 | Outpatient (BNV) | payer MEDICARE, MEDICAID, SELFPAY ==
--- NOTE | 2024-12-09 15:10 | A.OFFVIS_ITS ---
Intake Visit Reasons: Remote Device Check- [employer] Allergies No Known Allergies (No Known Allergies*) Allergy (Verified 09/16/24 15:21) PFSH Medical History Chronic atrial fibrillation Small bowel obstruction AAA (abdominal aortic aneurysm) Permanent atrial fibrillation Atrial fibrillation On beta mayra at home Legally blind Retention, urine Pneumonia Exercise hypoxemia GERD (gastroesophageal reflux disease) Hypertension Persistent atrial fibrillation COPD (chronic obstructive pulmonary disease) Dyspnea on exertion HTN (hypertension) Cardiac pacemaker in situ Sick sinus syndrome Surgical History History of appendectomy H/O vaginal surgery History of endoscopy Hx of colonoscopy History of esophagogastroduodenoscopy (EGD) Hx of hysterectomy Hx of cardiac pacemaker History of radiofrequency ablation (RFA) for complex left atrial arrhythmia History of cardioversion Family History Father CHF (congestive heart failure) Cancer Pacemaker Mother Emphysema lung Social History Household Members: Family Household Members Other:: AND SON Housing: House Are you a primary long term care pharmacist to a significant other at home: No Do you presently have visiting nurse or other home services: No Alcohol intake: former Patient Tobacco Use Status: Former Tobacco user Tobacco use type: Cigarette Advance Directives Date on File: 07/19/22 service: No Office Procedures Cardiac Device Check Cardiac Device Check Details: Remote pacemaker report generated 12/05/2024. Pacemaker function is adequate [id number] Cardiac Device Interrogation, pacemaker Procedure code (CPT) selection complete Assessment & Plan Assessment & Plan (1) Cardiac pacemaker in situ: Code(s): Z95.0 - Presence of cardiac pacemaker Category: Medical Plan: See above Coding Level of Care Code Procedure Only Diagnoses Cardiac pacemaker in situ Z95.0 CPT Codes Cardiac Device Check - Cardiac Device 12: [id number] Cardiac Device Interrogation, pacemaker ([id number])
== END ==
PROVIDERS: PCP Internal Medicine; Visit Provider Internal Medicine Cardiovascular Disease
DX: Z45.018 Encounter for adjustment and management of other part of cardiac pacemaker (principal)
CPT/HCPCS: 93294

== ENCOUNTER 2024-12-10 11:28 | Outpatient (REF) | payer MEDICARE, MEDICAID, SELFPAY ==
[2024-12-10 13:11] LABS: MANUAL DIFF FLAG NO
[2024-12-10 13:15] LABS: Hematocrit 41.2 % (37.0-47.0); Hemoglobin 12.8 g/dl (12.0-16.0); Imm Gran Abs Auto 0.05 X10*3/uL (0.00-0.03); Imm Gran Pct Auto 0.7 % (0.0-0.4); Lymphocytes Absolute Auto 1.0 X10*3/uL (1.2-4.9); Mean Corpuscular HGB Conc 31.1 g/dl (31.0-35.0); Mean Corpuscular Hemoglobin 26.8 pg (27.0-33.0); Mean Corpuscular Volume 86.4 fL (80.0-98.0); NRBC Abs Auto 0.000 X10*3/uL (0.0-0.012); NRBC Pct Auto 0.0 /100WBC (0.0-0.2); Platelet Count 227 X10*3/uL (160-400); Red Blood Count 4.77 X10*6/uL (4.20-5.50); White Blood Count 7.5 X10*3/uL (4.8-10.8)
[2024-12-10 13:27] LABS: Total Hemoglobin (HGBA1C) 3338.6887 umol/L
[2024-12-10 13:37] LABS: Alanine Aminotransferase 9 U/L (0-31); Albumin Level 3.2 g/dL (3.5-5.0); Alkaline Phosphatase 108 U/L (39-117); Anion Gap 12 (12-20); Aspartate Amino Transferase 24 U/L (5-31); Blood Urea Nitrogen 19 mg/dL (9-16); Calcium 8.4 mg/dL (8.4-10.2); Carbon Dioxide 23 mmol/L (22-29); Chloride 106 mmol/L (96-108); Estimated Glomerular Filt Rate > 60; Potassium 5.3 mmol/L (3.3-5.1); Sodium 136 mmol/L (135-145); Total Protein 6.4 g/dL (6.5-8.0)
[2024-12-10 13:54] LABS: Thyroid Stimulating Hormone 2.07 uIU/mL (0.32-4.0)
[2024-12-10 14:04] LABS: Vitamin B12 1169 pg/mL (200-900)
--- OUTSIDE RECORDS SUMMARY | 2024-12-10 14:09 | XMS_ITS | Encounter Summary ---
Author Organization [facility] Address [address] [place] [address] Phone Care Team Providers Care Health Outreach Worker Name Role Phone KeatonFreddy MD Unavailable Barb Worley MD Unavailable [phone] Raffy Orona MD Primary Care Provider [phone] Anayeli Quach Unavailable [phone] Reason for Visit * Reason Comments Medication Refill Encounter Details Date Type Department Care Team (Late st Contact Info) Description 12/07/2024 Refill [facility] at [address] [address] Carolynn Franklin, PAFelixC [address] [place] [address] [email or web address] Medication Refill Social History Tobacco Use Types [...] as of this encounter Progress Notes * Adry Crisostomo MA - 12/09/2024 8:47 AM EST Deepak Franklin documented in this encounter Plan of Treatment Upcoming Encounters Date Type Department Care Team (Late st Contact Info) Description 01/29/2025 9:00 AM EST Office Visit [facility] Internal Medicine [address] [place] [address] Raffy Orona MD [address] [place] [address] [email or web address] documented as of this encounter Visit Diagnoses Not on filedocumented in this encounter Additional Health Concerns Assessment Noted Time PHQ-9 Depression Total Score: 12 023 2:01 PM EST PHQ-2 Depression Total Score: 1 01/13/20 23 4:41 PM EST documented as of this encounter Care Teams Health Outreach Worker Relationship Specialty Start Date End Date Raffy Orona MD [address] [place] [address] [email or web address] PCP - General Internal Medicine 06/27/22 Freddy Pugh MD [address] [place] [address] Dr [address] [place] [address] Cardiology 06/01/20 Barb Worley MD [address] [place] [address] Drive [address] [place] [address] Pulmonary Disease 07/08/20 Anayeli Quach MBBS [address] [place] [address] [email or web address] Medical Oncology 10/20/23 documented as of this encounter Additional Source Comments The information contained in this document represents components of the legal health record. It is not the complete legal health record.[facility]
--- OUTSIDE RECORDS SUMMARY | 2024-12-10 14:09 | XMS_ITS | Encounter Summary ---
Author Organization [facility] Address [address] [place] [address] Phone Care Team Providers Care Sprayer Hand Name Role Phone Freddy Pugh MD Unavailable [phone] Barb Worley MD Unavailable [phone] Raffy Orona MD Primary Care Provider [phone] Anayeli Quach Unavailable [phone] Encounter Details Date Type Department Care Team (Late st Contact Info) Description 12/09/2024 Telephone [facility] at [address] [address] Carolynn Franklin PA-C [address] [place] [address] [email or web address] Social History Tobacco Use Types Packs/Day Years [...] as of this encounter Progress Notes * Carolynn Franklin PA-C - 12/09/2024 3:59 PM EST She is overdue for f/u from initial visit 12/2023; please call to schedule MAs: unclear if she had labs ordered by me done with [facility]-can we please send all lab orders from me to have drawn prior to visit Charleen Triana documented in this encounter Plan of Treatment Upcoming Encounters Date Type Department Care Team (Late st Contact Info) Description 01/29/2025 9:00 AM EST Office Visit [facility] [address] [place] [address] Raffy Orona MD [address] [place] [address] [email or web address] documented as of this encounter Visit Diagnoses Not on filedocumented in this encounter Additional Health Concerns Assessment Noted Time PHQ-9 Depression Total Score: 12 023 2:01 PM EST PHQ-2 Depression Total Score: 1 01/13/20 23 4:41 PM EST documented as of this encounter Care Teams Sprayer Hand Relationship Specialty Start Date End Date Raffy Orona MD [address] [place] [address] [email or web address] PCP - General Internal Medicine 06/27/22 Freddy Pugh MD [address] [place] [address] Dr [address] [place] [address] Cardiology 06/01/20 Barb Worley MD [address] [place] [address] Drive [address] [place] [address] Pulmonary Disease 07/08/20 Anayeli Quach MBBS [address] [place] [address] [email or web address] Medical Oncology 10/20/23 documented as of this encounter Additional Source Comments The information contained in this document represents components of the legal health record. It is not the complete legal health record.[facility]
--- OUTSIDE RECORDS SUMMARY | 2024-12-10 14:09 | XMS_ITS | Encounter Summary ---
Author Organization [facility] Address [address] [place] [address] Phone Care Team Providers Care Approver Name Role Phone KeatonFreddy MD Unavailable [phone] Barb Worley MD Unavailable [phone] Raffy Orona MD Primary Care Provider [phone] Anayeli Quach Unavailable [phone] Reason for Visit * Reason Onset Date Comments [facility] 11/26/2024 Encounter Details Date Type Department Care Team (Late st Contact Info) Description 11/26/2024 Telephone [facility] Internal Medicine [address] [place], [place] [phone] Raffy Orona MD [address] [place], [place] [phone] [email or web address] [facility] Social History Tobacco Use Types Packs/Day Years [...] as of this encounter Progress Notes * Lexi Mitchell RN - 12/05/2024 11:38 AM EDT Not reached. No answer, no option to LVM. * Keke Mccabe RN - 12/03/2024 4:09 PM EDT No answer * Lexi Mitchell RN - 12/02/2024 3:22 PM EDT Phone rings and rings, no option to LVM. * Lexi Mitchell RN - 11/29/2024 1:50 PM EDT LVM for Charu to call back. * Siobhan Santos - 11/29/2024 1:44 PM EDT Charu with [facility] called left VM - following up director student union from earlier in week - [phone] * Chemo Jimenez - 11/28/2024 3:54 PM EDT Spoke to patient and let her know I had already faxed labs to both [facility] and [place] as I was unsure which location she was going to. Patient was appreciative. * Lizzy Barrera - 11/28/2024 3:46 PM EDT Received call from pt insisting on speaking with Chemo. She states she needs her labs sent to the office on . She was not able to provide any further details about which office she is referring to,and was unable to provide a fax number. She states Chemo has all of this information and she only wants to speak with Chemo. She requests a call back. Central Support [employer] (Please do not reply to this user; this inbox is not monitored.) Thank you. * Giovana Simons - 11/28/2024 3:32 PM EDT Pt called and would like to speak with Chemo, please contact [phone] * Lexi Mitchell RN - 11/28/2024 9:19 AM EDT Noted. * Chemo Jimenez - 11/28/2024 9:16 AM EDT Charu called back. Nursing was on a call. Relayed provider's answers to Charu. She states if nursing has anything else to add they can call her back otherwise she is all set. * Lexi Mitchell, ISABELA - 11/28/2024 8:26 AM EDT LVM for Charu to call back. * Raffy Orona MD - 11/27/2024 7:10 PM EDT She has a healthcare proxy not invoked. She is often not compliant with labs. I am concerned about her compliance with labs. She would have to be seen again before I can say if her healthcare proxy needs to be invoked. * Jose Manuel Lim - 11/27/2024 8:48 AM EDT Charu calling in looking for an update and if questions had been answered. * Siobhan Santos - 11/26/2024 9:56 AM EDT Received call from Charu at [facility] would like to know if patient has - if patient has capacity to make decisions on her own - if patient has a Health Care Proxy on File and if Proxy is evoked - if patient is Medically Compliant - and does PCP have any general concerns Charu can be reached at [phone] ext [phone] documented in this encounter Plan of Treatment Upcoming Encounters Date Type Department Care Team (Late st Contact Info) Description 01/29/2025 9:00 AM EST Office Visit [facility] Internal Medicine [address] [place] [address] Raffy Orona MD [address] [place] [address] documented as of this encounter Visit Diagnoses Not on filedocumented in this encounter Additional Health Concerns Assessment Noted Time PHQ-9 Depression Total Score: 12 023 2:01 PM EST PHQ-2 Depression Total Score: 1 01/13/20 23 4:41 PM EST documented as of this encounter Care Teams Approver Relationship Specialty Start Date End Date Raffy Orona MD [address] [place] [address] PCP - General Internal Medicine 06/27/22 Freddy Pugh MD [address] [place] [address] [address] [place] [address] Cardiology 06/01/20 Barb Worley MD [address] [place] [address] Drive [address] [place] [address] Pulmonary Disease 07/08/20 Anayeli Quach MBBS [address] [place] [phone] Medical Oncology 10/20/23 documented as of this encounter Additional Source Comments The information contained in this document represents components of the legal health record. It is not the complete legal health record.[facility]
--- OUTSIDE RECORDS SUMMARY | 2024-12-10 14:09 | XMS_ITS | Clinical Summary ---
Author Organization [facility] Address [address] [place] [address] Care Team Providers Care Survey Research Center Director Name Role Phone Elena Jacobo EXPANDER MACHINE OPERATOR Primary Care Provider Allergies No known [...] 2 (two) times a day. Active Pancrelipase, Vsc-Zzdn-Nldp, (Creon) 4542-[address] Particles Take 1 capsule [...] Health Maintenance Due Date Last Done Comments Advance Care Planning 1950 Hepatitis C Virus Screening 1950 DTaP/Tdap/Td Vaccines (1 - Tdap) 1968 Pneumococcal Vaccines 50+ (1 of 2 - PCV) 1968 Mammogram 1989 Colonoscopy 1994 RSV Vaccine 50 years and older and Patients (1 - Risk 50-74 years 1-dose series) 12/26/1999 Zoster (Shingles) Vaccine (1 of 2) 12/26/1999 DXA Bone Density (Females,Ages 65 and older) 2014 Influenza Vaccine 09/06/2024 11/26/2020 COVID-19 Vaccine ( - season) 2024 04/06/2020, 03/06/2020 Chronic Controlled Substance User PDMP Review Discontinued 12/11/2020 Hepatitis B Vaccines Aged Out No long er eligible based on patient's age to complete this topic Medical Devices Implanted Type Area Librarian Special Library Device Identifier Shelf Expiration Date Model / Serial / Lot Pacemaker Pacemaker Insurance [facility] MEDICARE OUT OF NETWORK [employer] MANAGED MEDICARE Advance Directives * Full Code (Latest Code Status on File) Date Activated Date Inactivated Comments 12/11/2020 8:56 AM Care Teams Survey Research Center Director Relationship Specialty Start Date End Date Elena Jacobo NP [address] [place] [address] PCP - General Adult Health - PA/APNP/EXPANDER MACHINE OPERATOR/LEACH CELL OPERATOR 12/11/20
--- OUTSIDE RECORDS SUMMARY | 2024-12-10 14:09 | XMS_ITS | Encounter Summary ---
Author Organization [facility] Address [address] [place] [address] Phone Care Team Providers Care Automotive Glass Specialist Name Role Phone KeatonFreddy MD Unavailable [phone] Barb Worley MD Unavailable [phone] Raffy Orona MD Primary Care Provider [phone] Anayeli Quach Unavailable [phone] Reason for Visit * Reason Onset Date Comments Labs 11/28/2024 Encounter Details Date Type Department Care Team (Late st Contact Info) Description 11/28/2024 Telephone [facility] Internal Medicine [address] [place], [place] [phone] Raffy Orona MD [address] [place], [place] [phone] [email or web address] Labs Social History Tobacco Use Types Packs/Day Years [...] Progress Notes * Raffy Orona MD - 11/29/2024 7:15 PM EDT Noted * Chemo Jimenez - 11/28/2024 3:24 PM EDT Called and spoke with Maurisio asking if patient had gone for her labs. He states she wants [facility] to do them. I explained that we told her that the doctor would like her to get them done at the hospital because something happens in transport and the numbers are not as accurate. He states that when she does not want to do something she will not. I told him I understood and that it was important for herto get these done. I told him I would call and speak with her. I called and spoke with Trupti. She stated at first she did not have a ride but I told her I hadjust spoken with Maurisio and he said he could bring her at any time and that she was the one who did not want to go. She then stated that the [facility] nurse checked and was told that transit did not alter the specimen. I explained that the provider is asking her to go to the hospital to have an accurate value in order to treat her appropriately. She then stated she would speak to her son. Patient called back asked if labs could be refaxed. I let her know that I had just done that to [facility] and [facility]. Patient was appreciative. documented in this encounter Plan of Treatment Upcoming Encounters Date Type Department Care Team (Late st Contact Info) Description 01/29/2025 9:00 AM EST Office Visit [facility] Internal Medicine [address] [place] [address] Raffy Orona MD [address] [place] [address] [email or web address] documented as of this encounter Visit Diagnoses Not on filedocumented in this encounter Additional Health Concerns Assessment Noted Time PHQ-9 Depression Total Score: 12 023 2:01 PM EST PHQ-2 Depression Total Score: 1 01/13/20 23 4:41 PM EST documented as of this encounter Care Teams Automotive Glass Specialist Relationship Specialty Start Date End Date Raffy Orona MD [address] [place] [address] [email or web address] PCP - General Internal Medicine 06/27/22 Freddy Pugh MD [address] [place] [address] [address] [place] [address] Cardiology 06/01/20 Barb Worley MD [address] [place] [address] Drive [address] [place] [address] Pulmonary Disease 07/08/20 Anayeli Quach MBBS [address] [place] [address] Medical Oncology 10/20/23 documented as of this encounter Additional Source Comments The information contained in this document represents components of the legal health record. It is not the complete legal health record.[facility]
--- OUTSIDE RECORDS SUMMARY | 2024-12-10 14:09 | XMS_ITS | Clinical Summary ---
Author Organization [facility] Address [address] [place] [address] Phone Care Team Providers Care Fast Food Attendant Name Role Phone Raffy Orona MD Primary Care Provider [phone] Allergies No known active allergies Medications ascorbic [...] mg by mouth daily 06/01/2020 Active pancrelipase, Whj-Ioln-Rlzv, (Creon) 1225-0279 units capsule TAKE 1 CAPSULE BY MOUTH [...] Care Team (Late st Contact Info) Description 12/19/2024 3:45 PM EST Office Visit [facility] [address] [place] [address] Ck Hunter MD [address] [phone] Health Maintenance Due Date Last Done Comments Breast Cancer Screening 1950 Pneumococcal Vaccine: 50+ Ye ars (1 of 2 - PCV) 1968 Colorectal Cancer Screening: Annual FOBT 1998 Colorectal Cancer Screening: Colonoscopy 1998 Colorectal Cancer Screening: Sigmoidoscopy 1998 Influenza Vaccine (#1) 2024 11/26/2020 Hepatitis B Vaccine Aged Out No longe r eligible based on patient's age to complete this topic Insurance [employer] Care Teams Fast Food Attendant Relationship Specialty Start Date End Date Raffy Orona MD [address] [facility] [address] PCP - General Internal Medicine 06/05/24
--- OUTSIDE RECORDS SUMMARY | 2024-12-10 14:09 | XMS_ITS | Encounter Summary ---
Author Organization [facility] Address [address] [place] [address] Phone Care Team Providers Care Database Marketing Specialist Name Role Phone Raffy Orona MD Primary Care Provider [phone] Encounter Details Date Type Department Care Team (Late Contact Info) Description 11/10/2021 Telephone [facility] [address] [place] [address] Inocente Martínez MD Social History [...] Office Visit [facility] [address] [place] [address] Ck Hunter MD [address] [phone] documented as of this encounter Visit Diagnoses Not on filedocumented in this encounter Care Teams Database Marketing Specialist Relationship Specialty Start Date End Date Raffy Orona MD [address] [place] [address] PCP - General Internal Medicine 06/05/24 documented as of this encounter
--- OUTSIDE RECORDS SUMMARY | 2024-12-10 14:09 | XMS_ITS | Clinical Summary ---
Author Organization [facility] Address [address] [facility] [address] [place] [address] Phone Care Team Providers Care Space Control Supervisor Name Role Phone Freddy Pugh MD Unavailable [phone] Barb Worley MD Unavailable [phone] Raffy Orona MD Primary Care Provider [phone] Anayeli Quach Unavailable [phone] Allergies No known active allergies Medications XARELTO [...] (two) times a day. 100 capsule 3 Active Additional Information Patient taking differently:100 mg [...] [address] Dixon Urologist Active folic acid (FOLVITE) 1 MG tablet TAKE 1 TABLET BY MOUTH EVERY DAY 90 tablet 3 Active fluticasone propionate (FLONASE) 50 mcg/actuation nasal sprayIndications :Chronic rhinitis SPRAY 2 SPRAYS BY NASAL ROUTE DAILY 48 mL 5 Active melatonin 5 mg Tab Take by [...] at bedtime. 90 tablet 3 025 Active escitalopram oxalate (LEXAPRO) 10 MG tabletIndication s:Anxiety TAKE 1 TABLET BY MOUTH EVERY DAY 90 tablet 3 025 Active cyanocobalamin, vitamin B-12, 1000 MCG tablet TAKE 1 TABLET BY MOUTH EVERY DAY 90 tablet 2 025 Active estradioL (ESTRACE) 0.01 % (0.1 mg/gram) vaginal creamIndications :Vaginal atrophy INSERT 2 GRAMS VAGINALLY NIGHTLY FOR 2 WEEKS THEN INSERT 2 GRAMS 2 TIMES A WEEK AT NIGHT THEREAFTER 42.5 g 2 025 Active HYDROcodone-acet aminophen (NORCO) 5-325 mg per tabletIndication s:Left hip pain,Chronic bilateral low back pain without sciatica Take 1 tablet by mouth every 8 (eight) hours as needed for pain (specific location in comments) (Hip and back pain). Partial fill ok 84 tablet 025 2024 Active ferrous sulfate 325 mg (65 mg eagle iron) tablet TAKE 1 TABLET (65MG ELEMENTAL IRON), BY MOUTH EVERY OTHER DAY TOLERATED 45 tablet 1 Active tamsulosin (FLOMAX) 0.4 mg Cap Take 0.4 mg by mouth daily. Take 1 capsule by mouth every day at bedtime 2021 Discontinued(N o longer taking) ferrous sulfate 325 mg (65 mg eagle iron) tablet TAKE 1 TABLET (65MG ELEMENTAL IRON), BY MOUTH EVERY OTHER DAY TOLERATED 45 tablet 1 025 2024 Discontinued HYDROcodone-acet aminophen (NORCO) 5-325 mg [...] the original. This patient is engaged with [facility]. For questions and care coordination please call [phone]. Problem Noted Date Diagnosed Date Muscle strain [...] can be done Monday for example at [facility] and that is where we will [...] home labs Urinary retention 07/27/2021 Overview (11/09/2023): [facility] urology ov 07/21/23 saw Shawnee Person NP [...] Lumbar degenerative disc disease 07/08/2020 Overview (05/23/2022): COVERER P: 05/2022 Urine toxicology: 05/2022 Assessment & Plan (05/23/2022 6:28 AM EDT): Chronic pain, no improvement expected. She will continue hydrocodone/acetaminophen as prescribed as this is helping her remain functional in her ADLs. She does not tolerate additional therapies at this time, stays as active as possible. COVERER P agreement completed today, urine toxicology screening [...] Encounters Date Type Department Care Team Description 12/09/2024 Telephone [facility] at [address] [address] Carolynn Franklin PA-C 12/09/2024 Orders Only [facility] at [address] [address] Carolynn Franklin PA-C Anemia, unspecified type (Primary Dx) 12/07/2024 Refill [facility] at [address] [address] Carolynn Franklin PA-C Medication Refill 11/29/2024 Refill [facility] [address] [place] [address] Raffy Orona MD Medication Refill (CSRP) 11/28/2024 Telephone [facility] [address] [place] [address] Raffy Orona MD Labs 11/26/2024 Telephone [facility] [address] [place] [address] Raffy Orona MD [facility] 10/31/2024 Refill [facility] [address] [place] [address] Raffy Orona MD Medication Refill 10/24/2024 Refill [facility] [address] [place] [address] Raffy Orona MD Medication Refill (CSRP) 10/11/2024 Telephone [facility] [address] [place] [address] Raffy Orona MD Hip Pain 10/07/2024 Refill [facility] [address] [place] [address] Chadd Greco PA-C Medication Refill 10/06/2024 Refill [facility] at [address] [address] Carolynn Franklin PA-C Medication Refill 10/03/2024 Orders Only [facility] [address] [place] [address] Yee Betancourt MD 09/26/2024 Telephone [facility] [address] [place] [address] Raffy Orona MD Vitamin B order 09/26/2024 Telephone [facility] [place] [facility] [address] [place] [address] Raffy Orona MD Medication Refill from Last [...] Former Cigarettes 0.1 32 1 985 - 2016 Smokeless Tobacco: Never Tobacco Cessation:Counseling Given: Not [...] Description 01/29/2025 9:00 AM EST Office Visit [facility] [address] [place] [address] Raffy Orona MD [address] [place] [address] [email or web address] Health Maintenance Due Date Last Done Comments Adult Td,Tdap Booster 1950 HEPATITIS C SCREENING 12/26/1967 PNEUMOCOCCAL VACCINES (50+ years) (1 of 2 - PCV) 1968 COLOGUARD 1994 FIT TEST 1994 FOBT 1994 SIGMOIDOSCOPY 1994 VIRTUAL COLONOSCOPY 1994 RSV VACCINE (1 - Risk 50-74 years 1-dose series) 12/26/1999 ZOSTER VACCINES (1 of 2) 12/26/1999 COLONOSCOPY 05/18/2023 05/17/2022, 03/09, 02/13/2019 COLORECTAL CANCER SCREENING 05/18/2023 DEPRESSION SCREENING 01/13/2024 01/12/2023, 12/13/19 23 INFLUENZA VACCINE (#1) 2024 01/17/2022, 2020 COVID-19 VACCINE ( season) 2024 07/08/2021, 01/19/2021, 04/06/2020, Additional history exists BLOOD PRESSURE 11/29/2024 05/30/2024 MAMMOGRAM 03/09/2025 03/09/2023, [...] Name Priority Date/Time Associated Diagnosis Comments OUTSIDE LAB Routine 10/02/2024 12:15 PM EDT BASIC METABOLIC PANEL (BMP) Routine 03/28/2024 7:45 AM EST Idiopathic aseptic [...] Relevant to Health Maintenance Results * Outside Lab (10/02/2024 12:15 PM EDT) us Historical Provider LAB BLOOD BKR ORDERABLES Final Result * (ABNORMAL) Basic metabolic panel (03/28/2024 7:45 AM EST) SODIUM 135 133 - 146 mmol/L [facility] CHLORIDE 104 96 - 108 mmol/L [facility] POTASSIUM 5.0 3.3 - 5.1 mmol/L [facility] Comment:Specimen slightly he molyzed, result may be falsely elevated. CO2 17(L) 21 - 35 mmol/L [facility] BUN 17 6 - 19 mg/dL [facility] CREATININE 0.80 0.5 - 1.5 mg/dL [facility] GLUCOSE 100(H) 70 - 99 mg/dL [facility] CALCIUM 8.8 8.4 - 10.3 mg/dL [facility] EGFR 77 >59 mL/min/1.7 3m2 [facility] Comment:Estimated glomerular filtration rate calculated using the CKD-EPI refit equation. ANION GAP 19 10 - 20 mmol/L [facility] Blood 03/28/2024 7:45 AM EST 03/28/2024 9:22 AM EST Result [facility] Jonah Khan MD LAB BLOOD BKR ORDERABLES Final R esult Performing Organization Address City/State/[facility] Co de Phone Number [address] [address] * Outside HDL (04/24/2023) HDL - External 65 40 - 80 mg/dL Historical Provider LAB BLOOD ORDERABLES Mylene l Result * Mammogram Screening (Bilateral) (03/09/2023 12:27 PM EST) Anatomical Region Laterality Modality Breast Left, Breast Right, Breast Bilateral Bila teral Breast Screening Raffy Orona MD IMG MG EXAMS Final Result * HM DEXA SCAN (03/09/2023 12:22 PM EST) Raffy Orona MD HEALTH MAINTENANCE Edited Res ult - Final * HM COLONOSCOPY FOR RESULT ENTRY ONLY (05/17/2022) Elena Jacobo DELICAT[employer]EN GOODS STOCK CLERK HEALTH MAINTENANCE Edward kaushik Result - Final from Last 3 Months or Most Recently Relevant to Health Maintenance Insurance [employer] MEDICARE PART A & B [facility] [place] [employer] [employer] [place] [facility] [employer] [employer]AC[employer] MEDICARE PART A & B Member Subscriber Plan / Payer (Ef fective 2017-Present) Name:Trupti Jung Member ID:[id number] Relation to Subscriber:Self Name:Austenluis carlosedyLandonTrupti Subscriber ID:[id number] Payer ID:[id number] Group ID:Not on file Type:Medicare Address: [employer] [address] [place] [id number] [employer]ED [employer] REPLACEMENT MEDICARE PART A & B [employer] [employer] MEDICARE PART A & B [facility] [employer] [employer] [place] REPLACEMENT MEDICARE PART A & B [place] [employer] RE[employer] [facility] [place] [id number] [employer] [employer] REPLACEMENT MEDICARE PART A & B [facility] [employer] [employer] REPLAC[employer] MED[facility]ARE [facility] A [facility] Advance Directives For more information, please contact: [phone] (9AM - 5PM [facility], Monday-Monday) Documents on File Type Date Recorded Patient Sprigger Expl anation Healthcare Proxy 07/19/2022 Healthcare Proxy - 07/19/22 Care Teams Space Control Supervisor Relationship Specialty Start Date End Date Raffy Orona MD [address] [place] [address] PCP - General Internal Medicine 06/27/22 Freddy Pugh MD [address] [place] [address] [address] [place] [address] Cardiology 06/01/20 Barb Worley MD [address] [place] [address] [address] [place] [address] Pulmonary Disease 07/08/20 Anayeli Quach MBBS [address] [place] [address] [email or web address] Medical Oncology 10/20/23 Additional Source Comments The information contained in this document represents components of the legal health record. It is not the complete legal health record.[facility]
--- OUTSIDE RECORDS SUMMARY | 2024-12-10 14:09 | XMS_ITS | Encounter Summary ---
Author Organization [facility] Address [address] [place] [address] Phone Care Team Providers Care Blanker Press Operator Name Role Phone KeatonFreddy MD Unavailable [phone] Barb Worley MD Unavailable [phone] Raffy Orona MD Primary Care Provider [phone] Anayeli Quach Unavailable [phone] Encounter Details Date Type Department Care Team (Late st Contact Info) Description 12/09/2024 Orders Only [facility] at [address] [address] Carolynn Franklin PATushar [address] [place] [address] Anemia, unspecified type (Primary Dx) Social History Tobacco Use Types Packs/Day Years [...] on file documented as of this encounter Plan of Treatment Upcoming Encounters Date Type Department Care Team (Late st Contact Info) Description 01/29/2025 9:00 AM EST Office Visit [facility] Internal Medicine [address] [place] [address] Raffy Orona MD [address] [place] [address] [email or web address] Scheduled Orders Name Type Priority Associated Diagnoses Orde r Schedule Light Chains, Free, Serum Lab Routine Anemia, unspecified type Expected: 12/09/2024, Expires: 12/09/2025 documented as of this encounter Visit Diagnoses Diagnosis Anemia, unspecified type- Primary Left hip pain- Primary Pain in joint, pelvic region and thigh Chronic bilateral low back pain without sciatica Chronic, continuous use of opioids documented in this encounter Additional Health Concerns Assessment Noted Time PHQ-9 Depression Total Score: 12 023 2:01 PM EST PHQ-2 Depression Total Score: 1 01/13/20 23 4:41 PM EST documented as of this encounter Care Teams Blanker Press Operator Relationship Specialty Start Date End Date Raffy Orona MD [address] [place] [address] [email or web address] PCP - General Internal Medicine 06/27/22 Freddy Pugh MD [address] [place] [address] [address] [place] [address] Cardiology 06/01/20 Barb Worley MD [address] [place] [address] Drive [address] [place] [address] Pulmonary Disease 07/08/20 Anayeli Quach MBBS [address] [place] [address] [email or web address] Medical Oncology 10/20/23 documented as of this encounter Additional Source Comments The information contained in this document represents components of the legal health record. It is not the complete legal health record.[facility]
== END 2024-12-10 11:29 | disposition home or self-care (01) ==
LOC: HO.HMGCLDS 11:28
PROVIDERS: PCP Internal Medicine; Visit Provider Internal Medicine
DX: E87.5 Hyperkalemia (principal); Z13.1 Encounter for screening for diabetes mellitus; Z13.29 Encounter for screening for other suspected endocrine disorder
CPT/HCPCS: 36415; 80053; 82607; 83036; 84443; 85025

== ENCOUNTER 2024-12-27 17:21 | Outpatient (REF) | payer MEDICARE, MEDICAID, SELFPAY ==
--- OUTSIDE RECORDS SUMMARY | 2024-12-27 17:24 | XMS_ITS | Clinical Summary ---
Author Organization [facility] Address [address] [employer] [facility] [address] [place] [address] Phone Care Team Providers Care Electronic Engraver Name Role Phone KeatonFreddy MD Unavailable [phone] Barb Worley MD Unavailable [phone] Raffy Orona MD Primary Care Provider [phone] Anayeli Quach Unavailable [phone] Carolynn Franklin PA-C Unavailable [phone] Allergies No known active allergies Medications XARELTO [...] by mouth 2 (two) times a day. 023 Active prochlorperazine (COMPAZINE) 5 MG tablet TAKE 1 TABLET BY MOUTH EVERY 12 HOURS NEEDED FOR NAUSEA/VOMITIN G FOR 30 DAYS Active zinc sulfate (ZINCATE) 50 mg zinc (220 mg) capsule Take 1 capsule by mouth every morning. Active magnesium citrate 100 mg Cap Take 200 mg by mouth nightly at bedtime. 60 capsule 3 023 Active polyethylene glycol (MIRALAX) 17 gram/dose powderIndication s:Constipation, unspecified constipation type Take 17 g by mouth daily as needed. 510 g 1 023 Active cholecalciferol (VITAMIN D3) 400 unit tablet [...] for [address] Dixon Urologist 024 Active folic acid (FOLVITE) 1 MG tablet TAKE 1 TABLET BY MOUTH EVERY DAY 90 tablet 3 024 Active fluticasone propionate (FLONASE) 50 mcg/actuation nasal sprayIndications :Chronic rhinitis SPRAY 2 SPRAYS BY NASAL ROUTE DAILY 48 mL 5 024 Active melatonin 5 mg Tab Take by mouth nightly at bedtime as needed. Active metoprolol tartrate (LOPRESSOR) 50 MG tablet Take 50 mg by mouth daily. 025 Active YUVAFEM [address] 10 mcg vaginally 2 (two) times a week. 025 Active ipratropium-albu teroL (DUONEB) 0.5-3 mg (2.5 mg base)/3 mL nebulizer solution Inhale 3 mL into the lungs as needed. 025 Active digoxin (LANOXIN) 125 mcg tablet Take [...] WEEK AT NIGHT THEREAFTER 42.5 g 2 Active HYDROcodone-acet aminophen (NORCO) 5-325 mg per tabletIndication s:Left hip pain,Chronic bilateral low back pain without sciatica Take 1 tablet by mouth every 8 (eight) hours as needed for pain (specific location in comments) (Hip and back pain). Partial fill ok 84 tablet 025 2024 Active ferrous sulfate 325 mg (65 mg iqugmiut iron) tablet TAKE 1 TABLET (65MG ELEMENTAL IRON), BY MOUTH EVERY OTHER DAY TOLERATED 45 tablet 1 Active tamsulosin (FLOMAX) 0.4 mg Cap Take 0.4 mg by mouth daily. Take 1 capsule by mouth every day at bedtime 021 2021 Discontinued(N o longer taking) ferrous sulfate 325 mg (65 mg iqugmiut iron) tablet TAKE 1 TABLET (65MG ELEMENTAL [...] the original. This patient is engaged with [facility]. For questions and care coordination please call [phone]. Problem Noted Date Diagnosed Date Muscle strain [...] can be done Monday for example at [facility] and that is where we will [...] would still call the. Age-related osteoporosis wit torresut current pathological fracture 05/02/2023 Assessment & Plan [...] & benefits. Provided with written literature from [facility]. We discussed medication options, including anti-resorptives, i.e. [...] Urinary retention 07/27/2021 Overview (11/09/2023): [facility] urology ov 07/21/23 saw Shawnee Person, INSPECTOR MATERIAL DISPOSITION has suprapubic tube in place- VNA changes [...] Lumbar degenerative disc disease 07/08/2020 Overview (05/23/2022): COUPON REDEMPTION CLERK P: 05/2022 Urine toxicology: 05/2022 Assessment & Plan (05/23/2022 6:28 AM EDT): Chronic pain, no improvement expected. She will continue hydrocodone/acetaminophen as prescribed as this is helping her remain functional in her ADLs. She does not tolerate additional therapies at this time, stays as active as possible. COUPON REDEMPTION CLERK P agreement completed today, urine toxicology screening [...] Encounters Date Type Department Care Team Description 12/12/2024 Telephone [facility] Internal Medicine [address] [place] [address] Lexi Mitchell RN Labs 12/11/2024 Orders Only [facility] Internal Medicine [address] [place] [address] Yee Betancourt MD 12/09/2024 Telephone [facility] at [address] [address] Carolynn Franklin PA-C 12/09/2024 Orders Only [facility] at [address] [address] Carolynn Franklin PA-C Anemia, unspecified type (Primary Dx) 12/07/2024 Refill [facility] at [address] [address] Carolynn Franklin PA-C Medication Refill 11/29/2024 Refill [facility] [address] [place] [address] Raffy Orona MD Medication Refill (CSRP) 11/28/2024 Telephone [facility] Medicine [address] [place] [address] Raffy Orona MD [facility] 11/26/2024 Telephone [facility] Medicine [address] [place] [address] Raffy Orona MD [facility] 10/31/2024 Refill [facility] Medicine [address] [place] [address] Raffy Orona MD Medication Refill 10/24/2024 Refill [facility] [address] [place] [address] Raffy Orona MD Medication Refill (CSRP) 10/11/2024 Telephone [facility] [address] [place] [address] Raffy Orona MD Hip Pain 10/07/2024 Refill [facility] [address] [place] [address] Chadd Greco PA-C Medication Refill 10/06/2024 Refill [facility] at [facility] [address] [place] [address] Carolynn Franklin PA-C Medication Refill 10/03/2024 Orders Only [facility] Internal Medicine [address] [place] [address] ProviderYee MD 09/26/2024 Telephone [facility] Internal Medicine [address] [place] [address] Raffy Orona MD Vitamin B order 09/26/2024 Telephone [facility] [address] [place] [address] Raffy Orona MD Medication Refill from Last [...] Smoking Tobacco: Former Cigarettes 0.1 32 1 5 - 2016 Smokeless Tobacco: Never Tobacco Cessation:Counseling [...] Care Team (Late st Contact Info) Description 12/31/2024 2:30 PM EST Telemedicine - audio only [facility] at [address] [address] Carolynn Franklin PA-C [address] [place] [address] 01/29/2025 9:00 AM EST Office Visit [facility] Internal Medicine [address] [place] [address] Raffy Orona MD [address] [place] [address] Health Maintenance Due Date Last Done Comments Adult Td,Tdap Booster 1950 HEPATITIS C SCREENING 12/[birth year]/1967 PNEUMOCOCCAL VACCINES (50+ years) (1 of 2 - PCV) 1968 COLOGUARD 1994 FIT TEST 1994 FOBT 1994 SIGMOIDOSCOPY 1994 VIRTUAL COLONOSCOPY 1994 ZOSTER VACCINES (1 of 2) 12/26/1999 COLONOSCOPY 05/18/2023 05/17/2022, 03/09, 02/13/2019 COLORECTAL CANCER SCREENING 05/18/2023 DEPRESSION SCREENING 01/13/2024 01/12/2023, 12/13/19 23 INFLUENZA VACCINE (#1) 2024 01/17/2022, 2020 COVID-19 VACCINE (2024- season) 2024 07/08/2021, 01/19/2021, 04/06/2020, Additional history exists BLOOD PRESSURE 11/29/2024 05/30/2024 RSV VACCINE (1 - 1-dose 75+ series) 2024 CREATININE LEVEL 03/28/2025 03/28/2024, 12/2024, 03/12/2024, Additional history exists POTASSIUM LEVEL 12/11/2025 12/11/2024, 03/10, 03/19/2024, Additional history exists LIPID PANEL 04/23/2028 04/24/2023, [...] Date/Time Associated Diagnosis Comments OUTSIDE LAB Routine 12/10/2024 11:13 AM EST OUTSIDE LAB Routine 10/02/2024 12:15 PM EDT BASIC METABOLIC PANEL (BMP) Routine 03/28/2024 7:45 AM EST Idiopathic aseptic necrosis of left femur Acute peptic ulcer with hemorrhage and obstruction Abdominal aortic aneurysm (AAA) without rupture, unspecified part Essential hypertension, malignant OUTSIDE HDL Routine 04/24/2023 HM DEXA SCAN Routine 03/09/2023 12:22 PM EST COLONOSCOPY FOR RESULT ENTRY ONLY Routine 05/17/2022 from Last 3 Months or Most Recently Relevant to Health Maintenance Results * Outside Lab (Non-MGB) (12/10/2024 11:13 AM EST) Only the most recent of2 resultswithin the time period is included. us Historical Provider LAB BLOOD BKR ORDERABLES Final Result * (ABNORMAL) Basic metabolic panel (03/28/2024 7:45 AM EST) SODIUM 135 133 - 146 mmol/L [facility] CHLORIDE 104 96 - 108 mmol/L [facility] POTASSIUM 5.0 3.3 - 5.1 mmol/L [facility] Comment:Specimen slightly he molyzed, result may be falsely elevated. CO2 17(L) 21 - 35 mmol/L [facility] BUN 17 6 - 19 mg/dL [facility] CREATININE 0.80 0.5 - 1.5 mg/dL [facility] GLUCOSE 100(H) 70 - 99 mg/dL [facility] CALCIUM 8.8 8.4 - 10.3 mg/dL [facility] EGFR 77 >59 mL/min/1.7 3m2 [facility] Comment:Estimated glomerular filtration rate calculated using the CKD-EPI refit equation. ANION GAP 19 10 - 20 mmol/L [facility] Blood 03/28/2024 7:45 AM EST 03/28/2024 9:22 AM EST Jonah Khan MD LAB BLOOD BKR ORDERABLES Final R esult [facility] [address] [place] [address] * Outside HDL (04/24/2023) HDL - External 65 40 - 80 mg/dL us Historical Provider LAB BLOOD ORDERABLES Mylene l Result * DEXA SCAN (03/09/2023 12:22 PM EST) us Raffy Orona MD HEALTH MAINTENANCE Edited Res ult - Final * COLONOSCOPY FOR RESULT ENTRY ONLY (05/17/2022) us Elena Jacobo [facility] HEALTH MAINTENANCE Edward kaushik Result - Final from Last 3 Months or Most Recently Relevant to Health Maintenance Insurance [employer] REPLAC[employer] MEDICARE PART A & B Member Subscriber Plan / Payer (Ef fective 2017-Present) Name:Trupti Jung Member ID:[id number] Relation to Subscriber:Self Name:Trupti Jung Subscriber ID:[id number] Payer ID:[id number] Group ID:Not on file Type:Medicare Address: [facility] [employer] [facility]. [address] [place] [address] [facility] [employer] PREF[place]ED HMO REPLACEMENT MEDICARE PART A & B [facility] [employer]REF[employer]ED HMO REPLACEMENT MEDICARE PART A & B [employer] REPLACEMENT MEDICARE PART A & B [employer] REPLACEMENT MEDICARE PART A & B [facility] [employer] PREF[employer]ED HMO REPLACEMENT MEDICARE PART A & B [employer]MO REPLACEMENT MEDICARE PART A & B [facility] [employer] PREF[employer]ED HMO REPLACEMENT MEDICARE PART A & B [facility] [employer]REF[employer] REPLACEMENT MEDICARE PART A & B [facility] Advance Directives For more information, please contact: [phone] (9AM - 5PM [facility], Monday-Monday) Documents on File Type Date Recorded Patient Securities Sales Associate Expl anation Healthcare Proxy 07/19/2022 Healthcare Proxy - 07/19/22 Care Teams Electronic Engraver Relationship Specialty Start Date End Date Raffy Orona MD [address] [place] [address] [email or web address] PCP - General Internal Medicine 06/27/22 Freddy Pugh MD [address] [place] [address] [address] [place] [address] Cardiology 06/01/20 Barb Worley MD [address] [place] [address] Drive [address] [place] [address] Pulmonary Disease 07/08/20 Anayeli Quach MBBS [address] [place] [address] Medical Oncology 10/20/23 Carolynn Franklin PA-C [address] [place] [address] Physician Assessment Clinician 12/24/24 Additional Source Comments The information contained in this document represents components of the legal health record. It is not the complete legal health record.[facility]
--- OUTSIDE RECORDS SUMMARY | 2024-12-27 17:24 | XMS_ITS | Encounter Summary ---
Author Organization [facility] Address [address] [place] [address] Phone Care Team Providers Care Smash Piecer Name Role Phone KeatonFreddy MD Unavailable Barb Worley MD Unavailable [phone] Raffy Orona MD Primary Care Provider [phone] Anayeli Quach Unavailable [phone] Carolynn Franklin PA-C Unavailable [phone] Encounter Details Date Type Department Care Team (Late st Contact Info) Description 12/09/2024 Telephone [facility] at [facility] [address] [place], [place] [id number] Carolynn Franklin PA-C [address] [place] [address] [email or web address] Social History Tobacco Use Types Packs/Day Years [...] as of this encounter Progress Notes * Agustina Cantu - 12/24/2024 10:40 AM EST Called and schedule telemed appt with pt on 12/31 Pt stated she would go to [facility] for labs this week. Faxed lab order to [phone] * Carolynn Franklin PA-C - 12/09/2024 3:59 [...] 2:30 PM EST Telemedicine - audio only [facility] [address] [place] [address] Carolynn Franklin PA-C [address] [place] [address] 01/29/2025 9:00 AM EST Office Visit [facility] Internal Medicine [address] [place] [address] Raffy Orona MD [address] [place] [address] documented as of this encounter Visit Diagnoses Not on filedocumented in this encounter Additional Health Concerns Assessment Noted Time PHQ-9 Depression Total Score: 12 023 2:01 PM EST PHQ-2 Depression Total Score: 1 01/13/20 23 4:41 PM EST documented as of this encounter Care Teams Smash Piecer Relationship Specialty Start Date End Date Raffy Orona MD [address] [place] [address] PCP - General Internal Medicine 06/27/22 Freddy Pugh MD [address] [place] [address] Dr [address] [place] [address] Cardiology 06/01/20 Barb Worley MD [address] [place] [address] Drive [address] [place] [address] Pulmonary Disease 07/08/20 Anayeli Quach MBBS [address] [place] [address] Medical Oncology 10/20/23 Carolynn Franklin PA-C [address] [place] [address] [email or web address] Physician Vp Customer Service 12/24/24 documented as of this encounter Additional Source Comments The information contained in this document represents components of the legal health record. It is not the complete legal health record.[facility]
--- OUTSIDE RECORDS SUMMARY | 2024-12-27 17:24 | XMS_ITS | Encounter Summary ---
Author Organization [facility] Address [address] [place] [address] Phone Care Team Providers Care Warp Picker Name Role Phone KeatonFreddy MD Unavailable [phone] Barb Worley MD Unavailable [phone] Raffy Orona MD Primary Care Provider Anayeli Quach Unavailable Carolynn Franklin PA-C Unavailable [phone] Encounter Details Date Type Department Care Team (Late st Contact Info) Description 12/09/2024 Orders Only [facility] Cancer Center at [address] [address] Carolynn Franklin PA-C [address] [place] [phone] [email or web address] Anemia, unspecified type (Primary Dx) Social History [...] 2:30 PM EST Telemedicine - audio only [facility] at [address] [address] Carolynn Franklin PA-C [address] [place] [address] [email or web address] 01/29/2025 9:00 AM EST Office Visit [facility] Internal Medicine [address] [place] [address] Raffy Orona MD [address] [place] [address] [email or web address] Scheduled Orders Name Type Priority Associated Diagnoses [...] documented as of this encounter Care Teams Warp Picker Relationship Specialty Start Date End Date Raffy Orona MD [address] [place] [address] PCP - General Internal Medicine 06/27/22 Freddy Pugh MD [address] [place] [address] Dr [address] [place] [address] Cardiology 06/01/20 Barb Worley MD [address] [place] [address] Drive [address] [place] [address] Pulmonary Disease 07/08/20 Anayeli Quach MBBS [address] [place] [address] Medical Oncology 10/20/23 Carolynn Franklin PA-C [address] [place] [address] [email or web address] Physician Pad Machine Feeder 12/24/24 documented as of this encounter Additional Source Comments The information contained in this document represents components of the legal health record. It is not the complete legal health record.[facility]
--- OUTSIDE RECORDS SUMMARY | 2024-12-27 17:24 | XMS_ITS | Clinical Summary ---
Author Organization [facility] Address [address] [place] [address] Care Team Providers Care Tap Dancer Name Role Phone Elena Jacobo ANESTHESIOLOGIST AND CRITICAL CARE Primary Care Provider Allergies No known active [...] 2 (two) times a day. Active Pancrelipase, Tug-Rhff-Robb, (Creon) 6709-[address] Particles Take 1 capsule [...] this topic Medical Devices Implanted Type Area Facility Mechanic Device Identifier Shelf Expiration Date Model / Serial / Lot Pacemaker Pacemaker Insurance [facility] MEDICARE OUT OF NETWORK [employer] MANAGED MEDICARE Advance Directives * Full Code (Latest Code Status on File) Date Activated Date Inactivated Comments 12/11/2020 8:56 AM Care Teams Tap Dancer Relationship Specialty Start Date End Date Elena Jacobo NP [address] [place] [address] PCP - General Adult Health - PA/APNP/ANESTHESIOLOGIST AND CRITICAL CARE/MATTRESS INSPECTOR 12/11/20
--- OUTSIDE RECORDS SUMMARY | 2024-12-27 17:25 | XMS_ITS | Encounter Summary ---
Author Organization [facility] Address [address] [place] [address] Phone Care Team Providers Care Reimbursement Representative Name Role Phone Freddy Pugh MD Unavailable [phone] Barb Worley MD Unavailable [phone] Raffy Orona MD Primary Care Provider [phone] Anayeli Quach Unavailable [phone] Carolynn Franklin PA-C Unavailable [phone] Encounter Details Date Type Department Care Team (Late st Contact Info) Description 12/11/2024 Orders Only [facility] Internal Medicine [address] [place] [address] Provider, MD Yee [address] [place] [address] Social History Tobacco Use Types Packs/Day Years [...] 2:30 PM EST Telemedicine - audio only [facility] Center at [address] [address] Carolynn Franklin PA-C [address] [place] [address] [email or web address] 01/29/2025 9:00 AM EST Office Visit [facility] Internal Medicine [address] [place] [address] Raffy Orona MD [address] [place] [address] [email or web address] documented as of this encounter Procedures Procedure Name Priority Date/Time Associated Diagnosis Comments OUTSIDE LAB Routine 12/10/2024 11:13 AM EST documented in this encounter Results * Outside Lab (Non-[facility]) (12/10/2024 11:13 AM EST) us Historical Provider LAB BLOOD BKR ORDERABLES Final Result documented in this encounter Visit Diagnoses Not on filedocumented in this encounter Additional Health Concerns Assessment Noted Time PHQ-9 Depression Total Score: 12 023 2:01 PM EST PHQ-2 Depression Total Score: 1 01/13/20 23 4:41 PM EST documented as of this encounter Care Teams Reimbursement Representative Relationship Specialty Start Date End Date Raffy Orona MD [address] [place] [address] PCP - General Internal Medicine 06/27/22 Freddy Pugh MD [address] [place] [address] [address] [place] [address] Cardiology 06/01/20 Barb Worley MD [address] [place] [address] [address] [place] [address] Pulmonary Disease 07/08/20 Anayeli Quach MBBS [address] [place] [address] Medical Oncology 10/20/23 Carolynn Franklin PA-C [address] [place] [address] Physician Bpm Solution Architect 12/24/24 documented as of this encounter Additional Source Comments The information contained in this document represents components of the legal health record. It is not the complete legal health record.[facility]
--- OUTSIDE RECORDS SUMMARY | 2024-12-27 17:25 | XMS_ITS | Data Portability ---
Author Organization [facility] [employer] [facility], Main Office Address [address] [facility] [place] [address] Care Team Providers Care Paper Tube Cutter Name Role Phone PRITI SYLVESTER Primary Care Provider [phone] MUSTAPHA CORCORAN - 2ND FLOOR OTHER Assessment [...] bone Active 2024 Ivanna Gutierrez MD [address] [facility], [address], [place], [address] , [facility] [employer] [facility] 5 18:57:44 Osteonecrosis of hip 808587070 Active 2024 Not Available [facility] 5 08:55:23 Intestinal obstruction 97107638 Active 2024 Not Available [facility] 5 08:48:53 Recurrent bacterial infection 614480240 Active 2024 Not Available [facility] 5 08:49:58 Hypo-osmolali ty and or hyponatremia 897409917 Active 2024 Not Available [facility] 5 08:50:29 Muscle weakness 71749207 Active 2024 Not Available [facility] 5 08:51:14 Dysphagia 12583909 Active 2024 Not Available [facility] 5 08:51:44 Unsteady when standing 387311918 Active 2024 Not Available [facility] 5 08:52:15 Chronic kidney disease stage 3 990814832 Active 2024 Not Available [facility] 5 08:53:48 Abdominal aortic aneurysm without rupture 72384440 Active 2024 Not Available [facility] 5 08:54:19 Hyperlipidemi a 36452590 Active 2024 Not Available [facility] 5 08:54:20 Iron deficiency anemia 37146707 Active 2024 Not Available [facility] 5 12:58:42 Recurrent depression 471129780 Active 2024 Not Available [facility] 5 12:58:44 Abdominal aortic aneurysm 371693975 Active 2024 Jonah Khan MD [address] [facility], [address], [place], [address] , [facility] 5 15:23:25 Atrial fibrillation 06525392 Active 2024 Jonah Khan MD [address] , [address], [place], [address] , [facility] 5 15:24:30 Chronic kidney disease stage 3A 626864440 Active 2024 Jonah Khan MD [address] , [address], [place], [address] , [facility] 5 15:24:38 Chronic obstructive pulmonary disease 25075518 Active 2024 Jonah Khan MD [address] [facility], [address], [place], [address] , [facility] 5 15:24:43 History of malignant neoplasm of uterine body 166835059 Active 2024 Jonah Khan MD [address] [facility], [address], [place], [address] , [facility] 5 15:24:52 Gastroesophag eal reflux disease without esophagitis 780101234 Active 2024 Jonah Khan MD [address] [facility], [address], [place], [address] , [facility] 5 15:24:57 Essential hypertension 39183565 Active 2024 Jonah Khan MD [address] [facility], [address], [place], [address] , [facility] 5 15:25:03 Mixed hyperlipidemi a 851239021 Active 2024 Jonah Khan MD [address] [facility], [address], [place], [address] , [facility] 5 15:25:10 Neurogenic urinary bladder 443855941 Active 2024 Jonah Khan MD [address] [facility], [address], [place], [address] , [facility] 5 15:25:20 Sick sinus syndrome 07505476 Active 2024 Jonah Khan MD [address] [facility], [address], [place], [address] , [facility] [employer] [facility] 5 15:25:25 Pneumonia 369138612 Active 2024 Abby Razo NP [address] [facility], [facility] [address], [place], [address] , [facility] 5 20:37:34 Notes:Some problems listed i n Documents: #[id number], #[id number] could not be added to this patient's [...] rate Respiratory rate Body temperature Oxygen saturation Systolic And Diastolic Provider Name and Address Organization Details Last Updated DateTime 5 432402. 72 g 68 /min 18 /min 97.5 [degF] 96 % 121/82 mm[Hg] Abby Razo NP [address] [facility], [address], [place], [address], [place] - [facility] 5 14:01:27 Date Recorded Systolic And Diastolic Provider Name and Address Organization Details Last Updated DateTime 04/13/2024 93/76 mm[Hg] Jonah Khan MD [address] [facility], [address], [place], [address], [facility] 04/13/2024 08:22:45 Date Recorded Heart rate Respiratory rate Body temperature Oxygen saturation Systolic And Diastolic Provider Name and Address Organization Details Last Updated DateTime 5 96 /min 18 /min 98.5 [degF] 97 % 101/78 mm[Hg] DERIAN BEE NP [address] [facility], [address], [place], [address], [facility] 5 15:46:11 Date Recorded Heart rate Respiratory rate Body temperature Oxygen saturation Systolic And Diastolic Provider Name and Address Organization Details Last Updated DateTime 5 94 /min 18 /min 97.6 [degF] 94 % 109/81 mm[Hg] DERIAN BEE NP [address] [facility], [address], [place], [address], [facility] 5 13:05:59 Date Recorded Body weight Heart rate Respiratory rate Body temperature Oxygen saturation Systolic And Diastolic Provider Name and Address Organization Details Last Updated DateTime 5 24524.6 3 g 76 /min 18 /min 98.3 [degF] 96.99 % 128/70 mm[Hg] Abby Razo NP [address] [facility], [facility] [address], [place], [address], [facility] 5 12:35:40 Social History Question Answer Notes LastModified by Organization Details LastModified Time Tobacco Smoking Status Never Smoker Jonah Khan MD [address] [facility], [address], [place], [address], [facility] 03/12/2024 15:37:56 Do You Have An Advance Directive? No Information not available 03/12/2024 What Is Your Code Status? Full Code No Art Nutrition Information not available 04/08/2024 Where Do You Live? SingleLevelHouse Information not available 04/08/2024 Do You Have A Medical Power Of Expediter Service Order? No Information not available 04/08/2024 What Was [...] SARS-COV-2 (COVID-19) vaccine, UNSPECIFIED 03/06/2020 completed Claudia [facility] 03/12/2024 15:19:00 SARS-COV-2 (COVID-19) vaccine, UNSPECIFIED 04/06/2020 completed Claudiagiovanna Reyes [facility] 03/12/2024 15:19:19 SARS-COV-2 (COVID-19) vaccine, UNSPECIFIED 01/19/2021 completed Claudiagiovanna Reyes [facility] 03/12/2024 15:19:30 SARS-COV-2 (COVID-19) vaccine, UNSPECIFIED 07/08/2021 completed [facility] 03/12/2024 15:19:37 Past Encounters Encounter ID Performer Location Encounter Start Date Encounter Closed Date Diagnosis/Indication Diagnosis SNOMED-CT Code Diagnosis ICD10 Code Diagnosis IMO Codes Diagnosis Note [id number] Jonah Khan MD [facility] [address] [place] [address] 03/12/2024 14:57:39 03/13/2024 09:59:50 Clostridium difficile colitis 544584432 A04.72 concern for sepsis secondary to c diff underwent treatment then question if colonized at [facility] for sxcomplete course of PO vanco Acute kidney injury 1466 9001 N17.8 ARF on CRFimprove d with IVFmonitor renal function Idiopathic avascular necrosis of bone 3065986810 M87.852 avascular necrosis left femoral head on imaging was seen by ortho now with plan to f/u for replacemen t Abdominal aortic aneurysm 431704877 I71.43 [facility] Asthenia 41976256 R53.1 PT OT eval and treatmonit or fall risk and need for increased support in community Atrial fibrillation 4943 6004 I48.0 xarelto 20 mg qdmetoprol ol 50 mg bidmonitor for rate controlreq uired IV lopressor in hospital Chronic ki dney disease stage 3A 957750325 N18.31 carrying dx with recent ARFmonitor renal functionav oid nephrotoxi c meds as ablenephro consult prn Chronic ob structive pulmonary disease 32433438 J41.1 added to PMHmonitor utilizatio n of albuterol History of malignant neoplasm of uterine body 753567378 Z85.42 added to PMH Gastroesop hageal reflux disease without esophagitis 542334892 K21.9 pantoprazo le 40 mg qdmonitor for sx relief Essential hypertension 88302474 I10 metoprolol 50 mg bidmonitor bp and need to titrate Mixed hyperlipidemia 267 364015 E78.2 simvastati n 40 mg qdcontinue d Neurogenic urinary bladder 197317282 N31.8 abdi cath and care Sick sinus syndrome 3608 3008 I49.5 hx of with pacer in place [id number] LEESA Lynch at [facility] on [address] [place] [address] 03/19/2024 09:16:20 03/20/2024 09:36:50 Clostridium difficile colitis 211879978 A04.72 stools resolvedmo nitor for recurrent loose stool Acute kidney injury 1466 9001 N17.8 labs pending todaylast labs in range 21/0.60 Idiopathic avascular necrosis of bone 1304625162 M87.852 avascular necrosis left femoral head on imaging was seen by ortho now with plan to f/u for replacemen tcontinue PT OT see HPI Atrial fibrillation 4943 6004 I48.0 xarelto 20 mg qdmetoprol ol 50 mg bidrate controlled at 79 [id number] LEESA Lynch at [facility] on [address] [place] [address] 03/22/2024 11:37:26 03/25/2024 11:02:46 Acute kidney injury 14458320 N17.8 stable for patientlas t labs in range 24/0.80enc ourage PO fluids Idiopathic avascular necrosis of bone 9148737352 M87.852 continue PTPt ambulated short distances up [...] ol 50 mg bidrate controlled at 79 [id number] LEESA Lynch at [facility] on [address] [place] [address] 03/27/2024 12:47:31 03/28/2024 13:18:07 Acute kidney injury 61716662 N17.8 no labs this week for some reason-add cbc bmp tomorrow 03/28 Atrial fibrillation 4943 6004 I48.0 see HPI- had nuclear stress test today, will follow up tomorrow with cardsconalex nue amiodarone 125 mg every other day per cardsxarel to 20 mg qdmetoprol ol 50 mg bid Cough 61531622 R05.9 STAT chest xray two viewsadd cbc with bmp tomorrowsw ab for flu and covid nowmonitor resp status Nausea 575317167 R11.0 continue prn compazine and re-eval in 30 days [id number] LEESA Lynch at [facility] on [address] [place] [address] 03/28/2024 09:25:01 03/29/2024 13:23:38 Acute kidney injury 34439245 N17.8 labs pending today Atrial fibrillation 4943 6004 I48.0 see HPI- had nuclear stress test, follow up with cards tomorrowco ntinue amiodarone 125 mg every other day per cardsxarel to 20 mg qdmetoprol ol 50 mg bid Cough 56961761 R05.9 waiting on xray resultsif positive send home with miquel spent greater than 15 minutes discussing postpone of DC with patient and SW, ultimately wants to leave, wrote rx for miquel Nausea 681678971 R11.0 continue prn compazine Idiopathic avascular necrosis of bone 7596047212 M87.852 avascular necrosis left femoral head on imaging was seen by ortho now with plan to f/u for replacemen t Abdominal aortic aneurysm 655393619 I71.43 [facility] Asthenia 96885864 R53.1 improved Chronic ki dney disease stage 3A 810218064 N18.31 carrying dx with recent ARFPCP to follow labs Chronic ob structive pulmonary disease 07280186 J41.1 added to PMH History of malignant neoplasm of uterine body 303686180 Z85.42 added to PMH Gastroesop hageal reflux disease without esophagitis 169891562 K21.9 pantoprazo le 40 mg qd Essential hypertension 64682230 I10 metoprolol 50 mg bid Mixed hyperlipidemia 267 810016 E78.2 simvastati n 40 mg qdcontinue d Neurogenic urinary bladder 562275381 N31.8 abdi cath and care Sick sinus syndrome 3608 3008 I49.5 hx of with pacer in place [id number] Abby Razo NP [facility] [address] [place] [address] 04/08/2024 13:58:51 04/09/2024 13:16:49 Acute kidney injury 31012386 N17.8 hxlikely in setting of dehydratio n from diarrheacb c bmp weekly x 3 monitor Atrial fibrillation 4943 6004 I48.0 digoxin 125 mcg qodxarelto 20 mg qdmetoprol ol 50 mg bid Idiopathic avascular necrosis of bone 5090325977 M87.852 PT/OT eval and treatchole calciferol 25 mcg qdhydrocod one tyl q 6 hours prn painsuppor tive caremonito r Clostridiu m difficile colitis 455018169 A04.72 tested neg for cdif this admission, had it last admissions tools improving 1-2 per dayvanomyc in po for 2 more dosesmonit or for recurrent loose stool Abdominal aortic aneurysm 939045043 I71.43 [facility] Crook per pt coming upmonitor Asthenia 10484763 R53.1 PT OT eval and treatmonit or fall risk and need for increased support in community Chronic ki dney disease stage 3A 584080035 N18.31 carrying dx with recent ARFmonitor renal functionav oid nephrotoxi c meds as ablenephro consult prn Chronic ob structive pulmonary disease 24276530 J41.1 albuterol prnmonitor History of malignant neoplasm of uterine body 549212482 Z85.42 hx of Gastroesop hageal reflux disease without esophagitis 742896201 K21.9 pantoprazo le 40 mg qdmonitor for sx relief Essential hypertension 19111099 I10 metoprolol 50 mg bidmonitor bp and need to titrate Mixed hyperlipidemia 267 401002 E78.2 simvastati n 40 mg qdcontinue d Neurogenic urinary bladder 376233919 N31.8 abdi cath and carechange monthly per regular regimenmon itor for s/s of infection Sick sinus syndrome 3608 3008 I49.5 hx of with pacer in place Iron defic iency anemia 01676959 D50.9 ferrous sulfate qdvit c qdmonitor labs Recurrent depression 191 449527 F32.A lexapro 10 mg po qdmonitorp sych prn Pneumonia 995746632 J18. 9 with sepsis pneumoniah ad course of ceftriaxon e in hospalb prnduoneb q 4 hours prnmonitor cbc and bmp weekly x 3 Recurrent falls 82221022 2 R29.6 pt with falls from home and very deconditio nedPT OT eval and treatsuppo rtive caremonito r [id number] Jonah Khan MD [address] [address] 04/13/2024 08:22:12 04/16/2024 10:05:52 Sepsis 62887310 A41.89 complete course of abxmonitor for recurrent infection Asthenia 11271113 R53.1 PT OT eval and treatmonit or fall risk and need for increased support in community Clostridiu m difficile colitis 139502804 A04.72 concern for sepsis secondary to c diff underwent treatment then question if colonized at [facility] for sxcomplete course of PO vanco Acute kidney injury 1466 9001 N17.8 ARF on CRFimprove d with IVFmonitor renal function Idiopathic avascular necrosis of bone 0356378243 M87.852 avascular necrosis left femoral head on imaging was seen by ortho now with plan to f/u for replacemen tcoordinat e care Abdominal aortic aneurysm 467760317 I71.43 [facility] to [facility]H Atrial fibrillation 4943 6004 I48.0 xarelto 20 mg qdmetoprol ol 50 mg bidmonitor for rate control Chronic ki dney disease stage 3A 143180603 N18.31 carrying dx with recent ARFmonitor renal functionav oid nephrotoxi c meds as ablenephro consult prn Chronic ob structive pulmonary disease 24294789 J41.1 added to PMHmonitor utilizatio n of albuterol History of malignant neoplasm of uterine body 824481245 Z85.42 added to PMH Gastroesop hageal reflux disease without esophagitis 996626647 K21.9 pantoprazo le 40 mg qdmonitor for sx relief Essential hypertension 02528962 I10 metoprolol 50 mg bidmonitor bp and need to titrate Mixed hyperlipidemia 267 156502 E78.2 simvastati n 40 mg qdcontinue d Neurogenic urinary bladder 570404924 N31.8 abdi cath and care Sick sinus syndrome 3608 3008 I49.5 hx of with pacer in place [id number] DERIAN BEE NP [facility] [address] 04/17/2024 15:45:04 04/18/2024 14:24:58 Sepsis 69473297 A41.89 completed course of abxmonitor for recurrent infectionV SS, clinically stableChec k labs prn Idiopathic avascular necrosis of bone 3784857003 M87.852 avascular necrosis left femoral head on imaging was seen by ortho now with plan to f/u for replacemen tcoordinat e care with OrthoPT OT eval and tx. Asthenia 55848718 R53.1 PT OT eval and treatmonit or fall risk and need for increased support in community Clostridiu m difficile colitis 005256502 A04.72 concern for sepsis secondary to c diff underwent treatment then question if colonized at [facility] for sxcomplete d course of PO vanco Acute kidney injury 1466 9001 N17.8 ARF on CRFimprove d with IVFmonitor renal function Abdominal aortic aneurysm 199357250 I71.43 [facility] to [facility]H Atrial fibrillation 4943 6004 I48.0 xarelto 20 mg qdmetoprol ol 50 mg bidmonitor for rate control Chronic ki dney disease stage 3A 964139278 N18.31 carrying dx with recent ARFmonitor renal functionav oid nephrotoxi c meds as ablenephro consult prn Chronic ob structive pulmonary disease 04724380 J41.1 added to PMHmonitor utilizatio n of albuterol History of malignant neoplasm of uterine body 676845348 Z85.42 added to PMH Gastroesop hageal reflux disease without esophagitis 583323111 K21.9 pantoprazo le 40 mg qdmonitor for sx relief Essential hypertension 52744813 I10 metoprolol 50 mg bidmonitor bp and need to titrate Mixed hyperlipidemia 267 594770 E78.2 simvastati n 40 mg qdcontinue d Neurogenic urinary bladder 135838222 N31.8 abdi cath and carecontin ue methenamin e 1 gm qd for UTI proph. Sick sinus syndrome 3608 3008 I49.5 hx of with pacer in place [id number] DERIAN BEE NP [facility] [address] [address] 04/24/2024 10:46:51 04/26/2024 14:47:06 Sepsis 33120745 A41.89 resolved.c ompleted course of abxmonitor ing for recurrent infectionV SS, clinically stableChec k labs prn Idiopathic avascular necrosis of bone 3610140370 M87.852 avascular necrosis left femoral head on imaging was seen by ortho now with plan to f/u for replacemen tcoordinat e care with OrthoPT OT eval and tx.Monitor pain, [facility] Asthenia 12936731 R53.1 Continue PT OTmonitor fall risk and need for increased support in community Clostridiu m difficile colitis 938209054 A04.72 concern for sepsis secondary to c diff underwent treatment then question if colonized at [facility] for sxcomplete d course of PO vanco Acute kidney injury 1466 9001 N17.8 ARF on CRFimprove d with IVFmonitor renal functionav oid nephrotoxi cs Abdominal aortic aneurysm 313390185 I71.43 [facility] to [facility]H Atrial fibrillation 4943 6004 I48.0 Continue:x arelto 20 mg qdmetoprol ol 50 mg bidmonitor for rate control Chronic ki dney disease stage 3A 398760076 N18.31 carrying dx with recent ARFmonitor renal functionav oid nephrotoxi c meds as ablenephro consult prn Chronic ob structive pulmonary disease 57880222 J41.1 added to PMHmonitor utilizatio n of albuterol History of malignant neoplasm of uterine body 408106913 Z85.42 added to PMH Gastroesop hageal reflux disease without esophagitis 692552030 K21.9 pantoprazo le 40 mg qdmonitor for sx relief Essential hypertension 88015788 I10 continue metoprolol 50 mg bidmonitor bp and need to titrate Mixed hyperlipidemia 267 360257 E78.2 simvastati n 40 mg qdcontinue d Neurogenic urinary bladder 893275909 N31.8 Chronic - indwelling abdi cath x yrs.contin ue methenamin e 1 gm qd for UTI proph. Sick sinus syndrome 3608 3008 I49.5 hx of with pacer in place Insomnia 570789765 G47.0 9 Pt. requesting sleep aid - add melatonin 5 mg q HS prnMonitor use and effect. Cramp in lower limb 4499 54718 R25.2 In calves, comes and goes, gets some relief when legs moved and stretched. Already on Fe, vitamin/mi neral supplement s.Also on statin.Elle ck labs - CBC, BMP Mg FeContinue to monitor closelyCon program support specialist tonic water prnAdden dum - will add tizanidine 2 mg q hs prn for now - monitor use and effect. [id number] [facility] [address] [place] [address] 04/29/2024 12:34:25 05/01/2024 15:15:14 Sepsis 09217303 A41.89 resolved.c ompleted course of abx Insomnia 203982715 G47.0 9 while her melatonin addedcontm elatonin 5 mg q HS prnMonitor use and effect outpt with pcp Cramp in lower limb 4499 37364 R25.2 In calves, comes and goes, gets some relief when legs moved and stretched. resolvingA lready on Fe, vitamin/mi neral supplement s.Also on statin.add ed tizanidine 2 mg q hs prn here with effect will continue prnfu with pcp outpt Idiopathic avascular necrosis of bone 5235141741 M87.852 avascular necrosis left femoral head on imaging was seen by ortho now with plan to f/u for replacemen t=coordina te care with Ortho for future surgeryPT OT eval and tx. prn outptMonit or outpt with pcp and fu with ortho on 05/06hydroc odone/tyl 1 tab q 6 hours prn Asthenia 07605982 R53.1 Continue PT OTmonitor fall risk and need for increased support in community Clostridiu m difficile colitis 038440383 A04.72 resolvedco ncern for sepsis secondary to c diff underwent treatment then question if colonized at [facility] for sxcomplete d course of PO vanco and symptomati c Acute kidney injury 1466 9001 N17.8 ARF resolvedAR F on CRFimprove d with IVFmonitor renal functionav oid nephrotoxi csfu with pcp Abdominal aortic aneurysm 781579196 I71.43 [facility] Atrial fibrillation 4943 6004 I48.0 Continue:x arelto 20 mg qdmetoprol ol 50 mg bidmonitor for rate controlfu with pcp Chronic ki dney disease stage 3A 927448747 N18.31 carrying dx with recent ARFmonitor renal functionav oid nephrotoxi c meds as ablenephro consult prnfu with pcp Chronic ob structive pulmonary disease 46678285 J41.1 hx ofmonitor utilizatio n of albuterolf u with pcp History of malignant neoplasm of uterine body 170900131 Z85.42 hx ofchronic foleyfu with pcp Gastroesop hageal reflux disease without esophagitis 483903557 K21.9 pantoprazo le 40 mg qdmonitor for sx relief wtih pcp outpt Essential hypertension 46685226 I10 continue metoprolol 50 mg bidmonitor bp and need to titrate outpt with pcp Mixed hyperlipidemia 267 845475 E78.2 simvastati n 40 mg qdcontinue d with pcp outpt Neurogenic urinary bladder 223149464 N31.8 Chronic - indwelling abdi cath x [...] Ruiz Member ID Guarantor Name 05/01/2024 1 [facility] - MEDICARE PREFERRED (MEDICARE REPLACEMENT HMO) PRAKASH Trupti Jung [id number] Trupti Fabiana Notes Date Note Type Note Provider Name and Address Organization Details Recorded Time 04/08/2024 text/html Patient is a 73 yo female seen today for an initial intake visit. PMH significant for AAA follow by [facility] vascular, a fib, crf stage , copd, gerd, hx uterine ca,hld, htn, neurogenic bladder with abdi, SSS s/p pacer, avascualar necrosis of left hip Trupti is a 73 yo f here at [facility] for rehab [place] [facility] [place] for recent hospitalization 02/27-03/03 for c diff sepsis and dc to re[facility] at [facility] subsequently dc'd on 03/28/24. Since discharged from home she returned [place] [facility] [place] 03/29/24- for progressively weak, persistent [...] high riskBIMS 15/15 Abby Razo NP [address] [facility], [address], [place], [address], [facility] 04/08/2024 20:42:30 04/13/2024 text/html Patient is [...] diff prophylaxis PMH significant forAAA follow by [facility] vasculara fibcrf stage 3copdgerdhx uterine cahldhtnneurogenic bladder with foleySSS s/p pacer admit to facility for continued care and therapy Jonah Khan MD [address] [facility] [facility], [address], [place], [address], [facility] 04/13/2024 08:34:24 04/17/2024 text/html Trupti is seen today for an acute visit. She is [...] 04/08 stable. PMH significant forAAA follow by [facility] fibcrf stage 3copdgerdhx uterine cahldhtnneurogenic bladder with foleySSS s/p pacer admit to facility for continued care and therapy DERIAN BEE NP [address] [facility] [facility], [address], [place], [address], [facility] 04/17/2024 15:56:56 04/24/2024 text/html Trupti is seen today for an acute visit. She is [...] med changes. PMH significant forAAA follow by [facility] fibcrf stage 3copdgerdhx uterine cahldhtnneurogenic bladder with foleySSS s/p pacer DERIAN BEE NP [address] [facility] [facility], [address], [place], [address], [facility] 04/24/2024 14:07:19 04/29/2024 text/html Trupti is seen today for a discharge visit. PMH significant for AAA follow by [facility] vascular, a fib, crf stage , [...] diff prophylaxis. [facility] and care. Since here Trupti [...] pain and spasms. Abby Razo NP [address] [facility], [address], [place], [address], [facility] 05/01/2024 12:03:58 OBGyn Episode No OBEpisode recorded.
[2024-12-31 15:57] LABS: Kappa, Serum 181 mg/dL (176-443); Kappa/Lambda Ratio, Serum 1.33 (1.29-2.55); Lambda, Serum 136 mg/dL (91-240)
[2025-01-06 12:29] LABS: Prot Elec - Albumin 2.9 g/dL (3.8-4.8); Prot Elec - Alpha1 0.4 g/dL (0.2-0.3); Prot Elec - Alpha2 1.1 g/dL (0.5-0.9); Prot Elec - Beta 1 0.5 g/dL (0.4-0.6); Prot Elec - Beta 2 0.4 g/dL (0.2-0.5); Prot Elec - Gamma 0.9 g/dL (0.8-1.7); Prot Elec - Total Protein 6.1 g/dL (6.1-8.1)
== END 2024-12-27 17:22 | disposition home or self-care (01) ==
LOC: HO.HVNA 17:21
PROVIDERS: Visit Provider Physician Assistant Medical
DX: D64.9 Anemia, unspecified (principal)
CPT/HCPCS: 36415; 83883; 84165

== ENCOUNTER → 2025-01-22 14:03 | Outpatient (BNV) | payer MEDICARE, MEDICAID, SELFPAY | PROVIDERS: PCP Internal Medicine; Visit Provider Internal Medicine Cardiovascular Disease | DX: Z45.018 Encounter for adjustment and management of other part of cardiac pacemaker (principal) | CPT/HCPCS: 93294 ==

== ENCOUNTER 2025-01-28 18:40 | Inpatient (IN) | payer MEDICARE, OTHER, SELFPAY ==
[2025-01-28] VITALS (8 sets, daily range): BP systolic 138–184; BP diastolic 87–125; PULSE 97–134; RESP 14–19; TEMP 36.6; O2SAT 96–97; BMI 32.9
--- NOTE | 2025-01-28 | ECG_ITS ---
Test Reason : WEAKNESS Blood Pressure : */* mmHG Vent. Rate : 114 BPM Atrial Rate : * BPM P-R Int : * ms QRS Dur : 84 ms QT Int : 330 ms P-R-T Axes : * 55 223 degrees QTcB Int : 454 ms Atrial fibrillation with rapid ventricular response Septal infarct , age undetermined ST more depressed Inferior leads and inferloateral leads Abnormal ECG When compared with ECG of 25-Aug-2024 21:51, ST more depressed Lateral leads Referred By: Generic ED Physician Electronically Signed By: SUBHA QUEZADA MD
--- NOTE | ~2025-01-28 | XR_ITS ---
CLINICAL HISTORY: weakness 1 view chest x-ray. Comparison: 08/25/2024 Findings: No consolidation or effusion. Cardiac and mediastinal contours appear stable, with stable cardiac pacer hardware.. Bones unremarkable. Impression: 1. No acute pulmonary disease. This document has been electronically signed by: Rigoberto Ramos MD on 01/28/2025 20:12:54
--- NOTE | ~2025-01-28 | CT_ITS ---
CLINICAL HISTORY: distention, pain, vomiting CT abdomen and pelvis with contrast Comparison: CT/SR - CT CHEST WO IV CON - 03/29/24 16:32 EST CR - XR KUB - 03/10/24 11:[address]/SR - CT ABDOMEN PELVIS WO IV CON - 02/28/24 21:[address]/REG - CT ABDOMEN PELVIS W IV CON - 06/13/22 13:37 EDT Findings: 4 mm ground-glass nodule in the right lower lobe, new from prior. Focal fat infiltration in segment 4B of the liver. Atrophic pancreas. Gallbladder, spleen, and adrenal glands are within normal limits. No hydronephrosis. Symmetric contrast enhancement of the kidneys. Subcentimeter hypodensities, likely cysts. Dilated proximal duodenum with change in caliber at the level of the aortic aneurysm likely from mass effect. Aortic atherosclerosis with infrarenal abdominal aortic aneurysm measuring 5.4 x 5.6 cm this measured 5.1 x 5.[address] from 02/28/2024. There is partial thrombus basis without occlusion. Bowel is otherwise normal in caliber. No pneumatosis or pneumoperitoneum. Hysterectomy. Urinary bladder is collapsed around the Cadet catheter. Avascular necrosis of the left femoral head with subchondral collapse, progressed from prior. Degenerative changes of the spine. IMPRESSION: 1. Infrarenal abdominal aortic aneurysm measuring 5.4 x 5.6 cm, increased from 5.1 x 5.0 cm on 02/28/2024, with partial thrombus. 2. Dilated proximal duodenum with change in caliber at the level of the aortic aneurysm, likely due to mass effect. Bowel is otherwise normal in caliber. This document has been electronically signed by: Eunice Altamirano MD on 01/28/2025 21:06:16
--- NOTE | ~2025-01-28 | XR_ITS ---
CLINICAL HISTORY: dyspnea 1 view chest x-ray. Comparison: CR - XR CHEST 1V - 01/28/25 19:32 EST Findings: ICD device with leads projecting over the right atrium and right ventricle. Similar heart size. Calcified atherosclerotic disease of the thoracic aorta. No consolidation or effusion. No acute displaced fracture. The visualized upper abdomen is unremarkable. Impression: No acute cardiopulmonary process. This document has been electronically signed by: Tania Hillman MD on 01/30/2025 12:44:14
[2025-01-28 19:14] LABS: MANUAL DIFF FLAG NO
[2025-01-28 19:15] LABS: Hematocrit 47.4 % (37.0-47.0); Hemoglobin 15.3 g/dl (12.0-16.0); Imm Gran Abs Auto 0.11 X10*3/uL (0.00-0.03); Imm Gran Pct Auto 0.9 % (0.0-0.4); Lymphocytes Absolute Auto 0.8 X10*3/uL (1.2-4.9); Mean Corpuscular HGB Conc 32.3 g/dl (31.0-35.0); Mean Corpuscular Hemoglobin 27.8 pg (27.0-33.0); Mean Corpuscular Volume 86.0 fL (80.0-98.0); NRBC Abs Auto 0.000 X10*3/uL (0.0-0.012); NRBC Pct Auto 0.0 /100WBC (0.0-0.2); Platelet Count 323 X10*3/uL (160-400); Red Blood Count 5.51 X10*6/uL (4.20-5.50); White Blood Count 11.9 X10*3/uL (4.8-10.8)
[2025-01-28 19:29] LABS: INTERNATIONAL NORM RATIO 1.0 (0.9-1.1); Prothrombin Time 12.4 SEC (11.2-13.5)
--- NOTE | 2025-01-28 19:30 | ED.GENADULT ---
HPI - General Adult General Chief complaint: General Medical Stated complaint: N/V x3 weeks, weak, dizziness Time Seen by Provider: 01/28/25 19:03 Source: patient, EMS and old records reviewed Mode of arrival: EMS Limitations: other (Poor historian) History of Present Illness ED Provider: CARLOS HPI narrative: 74-year-old female with past medical history of AFib on Xarelto, CKD stage 3, ruptured AAA followed at [facility], COPD not on home O2, GERD, remote history of uterine cancer, hyperlipidemia, hypertension, chronic indwelling Abdi due to neurogenic bladder, sick sinus syndrome with a pacemaker, history of C diff sepsis so she reports no diarrhea at this time. She reports 3 weeks of nausea, vomiting. She thought it was normal she was told by her primary care doctor's answering staff that there is a stomach flu going around so she thought it was normal that she be vomiting for 3 weeks. She denies any pain. She states she is very weak. She has intermittent left lower quadrant abdominal pain though she doubts any pain now. She states she has not been eating or drinking. She has not been taking her medications. She is very difficult to ask questions she gets upset sometimes. She denies any sick contacts, travel, recent antibiotic use. MD complaint: Nausea vomiting weakness Onset (ago): week(s) (3 weeks) Location: chest and abdomen Radiation: non-radiation Severity: moderate Quality: aching Pain Consistency: intermittent Relieving factors: none Exacerbating factors: movement Associated symptoms: loss of appetite, malaise, nausea/vomiting and weakness Treatments prior to arrival: none Related Data Home Medications ?Medication ?Instructions ?Recorded ?Confirmed folic acid 1 mg tablet 1 mg PO DAILY 04/07/20 12/20/24 simvastatin 40 mg tablet 40 mg PO BEDTIME 02/10/21 12/20/24 albuterol sulfate 90 mcg/actuation 2 puff inhalation Q6H PRN wheezing 05/12/22 12/20/24 aerosol inhaler escitalopram oxalate 10 mg tablet 10 mg PO DAILY 02/10/23 12/20/24 cholecalciferol (vitamin D3) 25 25 mcg PO DAILY 06/08/23 12/20/24 mcg (1,000 unit) capsule cyanocobalamin (vitamin B-12) 1,000 mcg PO DAILY 01/19/24 12/20/24 1,000 mcg tablet estradiol 0.01% (0.1 mg/gram) 2 g vaginal MOFR 01/19/24 12/20/24 vaginal cream ferrous sulfate 325 mg (65 mg 325 mg PO DAILY 01/19/24 12/20/24 iron) tablet dicyclomine 10 mg capsule 10 mg PO BID 02/29/24 12/20/24 magnesium citrate 100 mg capsule 200 mg PO BEDTIME 02/29/24 12/20/24 metoprolol tartrate 50 mg tablet 50 mg PO BID 02/29/24 12/20/24 rivaroxaban 20 mg tablet (Xarelto) 20 mg PO DAILY@1700 02/29/24 12/20/24 Lactobacillus rhamnosus GG 10 1 cap PO DAILY 03/29/24 12/20/24 billion cell capsule (Culturelle) calcium carbonate 500 mg PO DAILY PRN Dyspepsia 03/29/24 12/20/24 digoxin 125 mcg (0.125 mg) tablet 125 mcg PO Q OTHER DAY 03/29/24 12/20/24 fluticasone propionate 50 2 spray intranasal DAILY PRN 03/29/24 12/20/24 mcg/actuation nasal Allergy Symptoms spray,suspension ipratropium 0.5 mg-albuterol 3 mg 3 ml inhalation Q4H PRN Wheezing 03/29/24 12/20/24 (2.5 mg base)/3 mL nebulization soln tizanidine 2 mg tablet 2 mg PO BEDTIME 08/27/24 12/20/24 Previous Rx's ?Medication ?Instructions ?Recorded catheter insertion kit #2 ea 01/25/22 catheter irrigation kit #2 ea 01/25/22 abdi catheters #2 ea 01/25/22 leg bags #2 ea 01/25/22 night bags #1 ea 01/25/22 sterile water #1 ea 01/25/22 simethicone 180 mg capsule 180 mg PO BID #60 caps 11/27/23 (Anti-Gas Ultra Strength) hydrocodone 5 mg-acetaminophen 325 1 tab PO Q6H PRN Pain, Severe 03/03/24 mg tablet (Pain Scale 7-10) #20 tabs ondansetron HCl 4 mg tablet 4 mg PO Q6H PRN for 06/04/24 nausea/vomiting #60 tabs methenamine hippurate 1 gram tablet 1 g PO DAILY UTI suppression 90 06/19/24 days #90 tabs ascorbic acid (vitamin C) 500 mg 1,000 mg (2 x 500 mg) PO DAILY #90 07/08/24 tablet (Vitamin C) tabs lansoprazole 30 mg capsule,delayed 30 mg PO DAILY #90 caps 09/13/24 release prochlorperazine maleate 5 mg 5 mg PO Q12H PRN for 11/03/24 tablet nausea/vomiting #30 tabs sodium,potassium,mag sulfates 17.5 See Rx Instructions PO .COMPLEX 11/13/24 gram-3.13 gram-1.6 gram oral soln #354 mL (Suprep Bowel Prep Kit) diphenoxylate-atropine 2.5 1 tab PO Q6-8H #20 tabs 12/05/24 mg-0.025 mg tablet zinc sulfate 50 mg zinc (220 mg) 50 mg PO DAILY #30 caps 12/05/24 capsule bisacodyl 5 mg tablet,delayed 20 mg (4 x 5 mg) PO ONCE 12/19/24 release (Dulcolax (bisacodyl)) colonoscopy prep 1 day #4 tabs polyethylene glycol 3350 17 238 g PO ONCE colonoscopy prep 1 12/19/24 gram/dose oral powder (Miralax) dose #238 grams colestipol 1 gram tablet 1 g PO BID #180 tabs 12/24/24 Allergies Allergy/AdvReac Type Severity Reaction Status Date / Time No Known Allergies (No Known Allergy Verified 01/28/25 19:13 Allergies*) Review of Systems Review of Systems: Yes all other systems are reviewed and are negative [facility] Past Medical History Attestation statement: The following information was validated with the patient. Source: old records reviewed Medical History Chronic atrial fibrillation Small bowel obstruction AAA (abdominal aortic aneurysm) Permanent atrial fibrillation Atrial fibrillation On beta mayra at home Legally blind Retention, urine Pneumonia Exercise hypoxemia GERD (gastroesophageal reflux disease) Hypertension Persistent atrial fibrillation COPD (chronic obstructive pulmonary disease) Dyspnea on exertion HTN (hypertension) Cardiac pacemaker in situ Sick sinus syndrome Surgical History History of appendectomy H/O vaginal surgery History of endoscopy Hx of colonoscopy History of esophagogastroduodenoscopy (EGD) Hx of hysterectomy Hx of cardiac pacemaker History of radiofrequency ablation (RFA) for complex left atrial arrhythmia History of cardioversion Family History Family History Father CHF (congestive heart failure) Cancer Pacemaker Mother Emphysema lung Social History Social History Household Members: Family Household Members Other:: AND SON Housing: House Are you a primary career development engineer to a significant other at home: No Do you presently have visiting nurse or other home services: No Alcohol intake: former Patient Tobacco Use Status: Former Tobacco user Tobacco use type: Cigarette Smoked in Last 30 Days: No Use of substances other than those prescribed or required for medical reasons: No Advance Directives: Yes Advance Directives on File: Yes Advance Directives Date on File: 07/19/22 Do you have a plan to hurt others: No Plan service: No Physical Exam ED Vital Signs: Vital Signs - 24 hr 01/28/25 19:11 01/28/25 20:28 01/28/25 20:38 Temperature 98 F Pulse Rate 120 H 113 H Respiratory Rate 15 Blood Pressure 173/125 H 170/87 H 174/103 H Pulse Oximetry 97 Oxygen Delivery Method Room Air 01/28/25 21:16 01/28/25 21:23 01/28/25 22:09 Temperature 97.8 F Pulse Rate 99 97 106 H Respiratory Rate 14 15 Blood Pressure 159/93 H 184/107 H 165/121 H Pulse Oximetry 96 96 Oxygen Delivery Method Room Air Room Air 01/28/25 22:26 Temperature Pulse Rate 99 Respiratory Rate 19 Blood Pressure 166/105 H Pulse Oximetry 97 Oxygen Delivery Method Room Air BMI result Body Mass Index 32.9 Appearance: Alert. Oriented X3. No acute distress. Much older than stated age Eyes: Pupils equal, round and reactive to light. ENT: Pharynx dry mucous membrane Neck: Normal inspection. Neck supple. CVS: Tachycardic and irregular heart rate and rhythm. Pulses normal. Respiratory: No respiratory distress. Breath sounds normal. Abdomen: Soft and nontender. Mild distention Skin: Skin warm and dry. Normal skin color. Extremities: No lower extremity edema. Neuro: Oriented X 3. No motor deficit. No sensory deficit. CN2-12 intact Course Course Course Narrative: 7:33 PM 01/28/2025 (CARLOS DO): She has no active diarrhea no symptoms of C diff at this time possible infection suspected I am ordering ceftriaxone Reevaluation(s) Reevaluation #1: 9:05 PM 01/28/2025 (CARLOS DO): At this time her heart rate is down to 110 with oral metoprolol it is trending down into the 90s as well her blood pressure is stable she will be admitted pending the results of the CT scan. Reevaluation #2: 10:34 PM 01/28/2025 (CARLOS DO): No delta troponin she has no chest pain at this time we will admit her for further workup Medications Administered Discontinued Medications Generic Name Dose Route Start Last Admin Trade Name Freq PRN Reason Stop Dose Admin Lactated Ringer's 1,000 mls @ 999 mls/hr 01/28/25 19:08 01/28/25 21:03 Lr IV 01/28/25 20:08 Infused .Q1H1M ONE Infusion Ceftriaxone Sodium 1 gm/ 50 mls @ 100 mls/hr 01/28/25 19:33 01/28/25 20:16 Sodium Chloride IV 01/28/25 20:02 Infused ONCE ONE Infusion Iohexol 100 ml 01/28/25 20:17 01/28/25 20:18 Iohexol 350 Mg/Ml 100 Ml Infus..Btl IV 01/28/25 20:18 85 ml ONCE ONE Administration Metoprolol Tartrate 25 mg 01/28/25 20:25 01/28/25 20:38 Metoprolol Tartrate 25 Mg Tablet PO 01/28/25 20:26 25 mg ONCE ONE Administration Protocol Metoprolol Tartrate 25 mg 01/28/25 22:05 01/28/25 22:09 Metoprolol Tartrate 25 Mg Tablet PO 01/28/25 22:06 25 mg ONCE ONE Administration Protocol Ondansetron HCl 4 mg 01/28/25 19:08 01/28/25 19:42 Ondansetron Hcl 4 Mg/2 Ml Vial IVPUSH 01/28/25 19:09 4 mg ONCE ONE Administration Medical Decision Making Medical Decision Making MDM Narrative: 74-year-old female with past medical history of AFib on Xarelto, CKD stage 3, ruptured AAA followed at [facility], COPD not on home O2, GERD, remote history of uterine cancer, hyperlipidemia, hypertension, chronic indwelling Abdi who presents with 3 weeks of nausea, vomiting, intermittent left lower quadrant pain. She has not been compliant with medications. She is in AFib with RVR. At this time I am going to obtain basic labs, lactic, blood cultures, CT scan of abdomen, chest x-ray. She has a wide differential as she is having symptoms for 3 weeks and has no localized symptoms at this time. I suspect she will have some demand ischemia due to the likely chronic tachycardia she is experiencing. Differential Diagnosis Differential Diagnoses: The differential diagnosis associated with the presentation includes MARCI on CKD, diverticulitis, obstruction, mass, UTI, anemia, troponin leak Admission/Observation Consideration of admission/observation: Escalation of care including admission/observation considered Plan to admit for intractable nausea vomiting as well as UTI Consult Healthcare Provider Management of the patient was discussed with: Hospitalist (Will admit) and Redrying Machine Operator (Discussed AAA with Dr. Crook no rupture she is hemodynamically stable she can stay here) Lab Data MDM Lab Attestation statement: I reviewed the patient's lab results. 01/28/25 19:09 01/28/25 19:56 Labs: Lab Results 01/28/25 01/28/25 01/28/25 Range/Units 19:09 19:26 19:56 WBC 11.9 H (4.8-10.8) X10*3/uL RBC 5.51 H (4.20-5.50) X10*6/uL Hgb 15.3 (12.0-16.0) g/dl Hct 47.4 H (37.0-47.0) % MCV 86.0 (80.0-98.0) fL MCH 27.8 (27.0-33.0) pg MCHC 32.3 (31.0-35.0) g/dl RDW 15.7 (11.0-16.0) % Plt Count 323 D (160-400) X10*3/uL MPV 9.1 L (9.4-12.3) fL Immature Gran % (Auto) 0.9 H (0.0-0.4) % Neut % (Auto) 86.1 H (45-73) % Lymph % (Auto) 6.9 L (20-40) % Letcher % (Auto) 5.7 (2-11) % Eos % (Auto) 0.1 (0-4) % Baso % (Auto) 0.3 (0-2) % Lymph # (Auto) 0.8 L (1.2-4.9) X10*3/uL Letcher # (Auto) 0.7 (0.1-1.2) X10*3/uL Eos # (Auto) 0.0 (0.0-0.4) X10*3/uL Baso # (Auto) 0.0 (0.0-0.2) X10*3/uL Abs Immat Gran (auto) 0.11 H (0.00-0.03) X10*3/uL Absolute Neuts (auto) 10.3 H (2.0-8.3) x10*3/uL Absolute Nucleated RBC 0.000 (0.0-0.012) X10*3/uL Nucleated RBC % (auto) 0.0 (0.0-0.2) /100WBC PT 12.4 (11.2-13.5) SEC INR 1.0 (0.9-1.1) Sodium 139 (135-145) mmol/L Potassium 3.4 D (3.3-5.1) mmol/L Chloride 99 (96-108) mmol/L Carbon Dioxide 25 (22-29) mmol/L Anion Gap 18 (12-20) BUN 35 H (9-16) mg/dL Creatinine 1.00 (0.5-1.4) mg/dL Estim Creat Clear Calc 48.1 Estimated GFR 54 Random Glucose 135 H (60-115) mg/dL Lactic Acid 2.0 (0.5-2.0) mmol/L Calcium 8.8 (8.4-10.2) mg/dL Magnesium 2.0 (1.6-2.6) mg/dL Total Bilirubin 0.2 (0.0-1.0) mg/dL AST 23 (5-31) U/L ALT 10 (0-31) U/L Alkaline Phosphatase 98 (39-117) U/L Troponin I High Sens 76.5 H* D (<3.5-17.0) ng/L NT-Pro-B Natriuret Pep 7521.5 H (<300) pg/mL Total Protein 6.4 L (6.5-8.0) g/dL Albumin 3.4 L (3.5-5.0) g/dL Lipase 24 (8-78) U/L Urine Color Urine Appearance Urine pH (5.0-9.0) Ur Specific [place] (1.005-1.025) Urine Protein (Neg-Trace) mg/dL Urine Glucose (UA) (Negative) mg/dL Urine Ketones (Negative) mg/dL Urine Blood (Negative) Urine Nitrite (Negative) Ur Leukocyte Esterase (Negative) Urine RBC (0-2) /HPF Urine WBC (0-5) /HPF Ur Squamous Epith Cells (0-2) /HPF Urine Bacteria (None Seen) Hyaline Casts (0-2) /LPF Urine Yeast Influenza Type A (PCR) NEGATIVE (Negative) Influenza Type B (PCR) NEGATIVE (Negative) RSV RNA Qual (PCR) NEGATIVE (Negative) SARS-CoV-2 RNA (RT-PCR) NEGATIVE (Negative) 01/28/25 01/28/25 Range/Units 20:37 22:06 WBC (4.8-10.8) X10*3/uL RBC (4.20-5.50) X10*6/uL Hgb (12.0-16.0) g/dl Hct (37.0-47.0) % MCV (80.0-98.0) fL MCH (27.0-33.0) pg MCHC (31.0-35.0) g/dl RDW (11.0-16.0) % Plt Count (160-400) X10*3/uL MPV (9.4-12.3) fL Immature Gran % (Auto) (0.0-0.4) % Neut % (Auto) (45-73) % Lymph % (Auto) (20-40) % Letcher % (Auto) (2-11) % Eos % (Auto) (0-4) % Baso % (Auto) (0-2) % Lymph # (Auto) (1.2-4.9) X10*3/uL Letcher # (Auto) (0.1-1.2) X10*3/uL Eos # (Auto) (0.0-0.4) X10*3/uL Baso # (Auto) (0.0-0.2) X10*3/uL Abs Immat Gran (auto) (0.00-0.03) X10*3/uL Absolute Neuts (auto) (2.0-8.3) x10*3/uL Absolute Nucleated RBC (0.0-0.012) X10*3/uL Nucleated RBC % (auto) (0.0-0.2) /100WBC PT (11.2-13.5) SEC INR (0.9-1.1) Sodium (135-145) mmol/L Potassium (3.3-5.1) mmol/L Chloride (96-108) mmol/L Carbon Dioxide (22-29) mmol/L Anion Gap (12-20) BUN (9-16) mg/dL Creatinine (0.5-1.4) mg/dL Estim Creat Clear Calc Estimated GFR Random Glucose (60-115) mg/dL Lactic Acid (0.5-2.0) mmol/L Calcium (8.4-10.2) mg/dL Magnesium (1.6-2.6) mg/dL Total Bilirubin (0.0-1.0) mg/dL AST (5-31) U/L ALT (0-31) U/L Alkaline Phosphatase (39-117) U/L Troponin I High Sens 89.7 H* (<3.5-17.0) ng/L NT-Pro-B Natriuret Pep (<300) pg/mL Total Protein (6.5-8.0) g/dL Albumin (3.5-5.0) g/dL Lipase (8-78) U/L Urine Color Yellow Urine Appearance Cloudy Urine pH 5.5 (5.0-9.0) Ur Specific [place] >= 1.030 H (1.005-1.025) Urine Protein 30 (1+) H (Neg-Trace) mg/dL Urine Glucose (UA) Negative (Negative) mg/dL Urine Ketones 15 (Negative) mg/dL Urine Blood Negative (Negative) Urine Nitrite Positive H (Negative) Ur Leukocyte Esterase Moderate (2+) H (Negative) Urine RBC 0-2 (0-2) /HPF Urine WBC 11-20 (0-5) /HPF Ur Squamous Epith Cells 0-2 (0-2) /HPF Urine Bacteria 4+ (None Seen) Hyaline Casts 3-5 (0-2) /LPF Urine Yeast Present Influenza Type A (PCR) (Negative) Influenza Type B (PCR) (Negative) RSV RNA Qual (PCR) (Negative) SARS-CoV-2 RNA (RT-PCR) (Negative) Independent Interpretation I performed an independent interpretation of an: EKG, Plain X-Ray (No pneumonia) and CT Scan (Increase in AAA) Interpretation: Rate:114 Rhythm: AFib with RVR [place]: Left Normal QRS complex. ST T wave : ST depressions V4, V5, V6, II, III, AVF, no ST-elevation qTC: 454 prior studies: She has similar depressions in the past though it looks more pronounced due to the tachycardia The study has been interpreted contemporaneously by me. . Radiology Impression Discussion of test interpretation with radiology: I have reviewed the radiologist's reading. Independent Historian Clinical information obtained from an independent historian. History obtained from or confirmed by: EMS External Record Review External record reviewed: Inpatient record, Outpatient record, Prior outpatient labs and Prior outpatient radiology Discharge Plan Discharge Clinical Impression: Atrial fibrillation with rapid ventricular response, Acute UTI, Abdominal pain, acute, left lower quadrant, Elevated troponin Nausea & vomiting Qualifiers: Vomiting type: unspecified Qualified Code(s): R11.2 - Nausea with vomiting, unspecified Abdominal aortic aneurysm Qualifiers: Abdominal aorta location: infrarenal aorta Presence of rupture: without rupture Qualified Code(s): I71.43 - Infrarenal abdominal aortic aneurysm, without rupture Patient Disposition: Admitted As Inpatient Print Language: Polish
--- OUTSIDE RECORDS SUMMARY | 2025-01-28 19:35 | XMS_ITS | Encounter Summary ---
Author Organization [facility] Address [address] [place] [address] Phone Care Team Providers Care Glass Curvature Gauger Name Role Phone Freddy Pugh MD Unavailable [phone] Barb Worley MD Unavailable Raffy Orona MD Primary Care Provider [phone] Anayeli Quach Unavailable Carolynn Franklin PA-C Unavailable [phone] Encounter Details Date Type Department Care Team (Late st Contact Info) Description 01/07/2025 Orders Only [facility] at [address] [address] Provider, MD Yee [address] [place] [id number] Social History Tobacco Use Types Packs/Day [...] as of this encounter Plan of Treatment Not on file documented as of this encounter Procedures Procedure Name Priority Date/Time Associated Diagnosis Comments OUTSIDE LAB Routine 01/07/2025 3:56 PM EST documented in this encounter Results * Outside Lab (Non-MGB) (01/07/2025 3:56 PM EST) us Historical Provider LAB BLOOD BKR ORDERABLES Final Result documented in this encounter Visit Diagnoses Not on filedocumented in this encounter Additional Health Concerns Assessment Noted Time PHQ-9 Depression Total Score: 12 023 2:01 PM EST PHQ-2 Depression Total Score: 1 01/13/20 23 4:41 PM EST documented as of this encounter Care Teams Glass Curvature Gauger Relationship Specialty Start Date End Date Raffy Orona MD [address] [place] [id number] PCP - General Internal Medicine 06/27/22 Freddy Pugh MD [address] [place] [address] Dr [address] [place] [address] Cardiology 06/01/20 Barb Worley MD [address] [place] [address] Drive [address] [place] [address] Pulmonary Disease 07/08/20 Anayeli Quach MBBS [address] [place] [address] Medical Oncology 10/20/23 Carolynn Franklin PA-C [address] [place] [phone] Physician Pipefitter 12/24/24 documented as of this encounter Additional Source Comments The information contained in this document represents components of the legal health record. It is not the complete legal health record.[facility]
--- OUTSIDE RECORDS SUMMARY | 2025-01-28 19:35 | XMS_ITS | Encounter Summary ---
Author Organization [facility] Address [address] [place] [address] Phone Care Team Providers Care Contact Lens Inspector Name Role Phone KeatonFreddy MD Unavailable Barb Worley MD Unavailable Raffy Orona MD Primary Care Provider [phone] Anayeli Quach Unavailable Carolynn Franklin PA-C Unavailable [phone] Reason for Visit * Reason Onset Date Comments Emesis 01/24/2025 Weakness 01/24/2025 Encounter Details Date Type Department Care Team (Late st Contact Info) Description 01/24/2025 Telephone [facility] [address] [place], [place] [id number] Raffy Orona MD [address] [place], [place] [phone] [email or web address] Emesis; Weakness Social History Tobacco Use Types Packs/Day Years [...] Progress Notes * Raffy Orona MD - 01/27/2025 6:04 PM EST Noted. * Chemo Jimenez - 01/27/2025 9:20 AM EST Spoke to patient she did not go to ER states she wants to cancel Wed appt because she is too sick. Let her know she should either be seen by provider or go to ER. She states she will think about going to ER but does not want to come to appt on Mon. * Raffy Orona MD - 01/24/2025 6:21 PM EST Noted. Check on Monday if patient went to ER. * Keke Mccabe RN - 01/24/2025 5:00 PM EST Trupti reports she has been sick for 3 weeks. States she has been vomiting intermittently almostdaily. She is able to keep some fluids down but is feeling weak. She denies fever. I advised her that she needs to go to the ER and possibly needs IVFs. States IF she goes, she will go to to [facility]. Advised I would inform Dr. Orona. documented in this encounter Plan of Treatment Not on file documented as of this encounter Visit Diagnoses Not on filedocumented in this encounter Additional Health Concerns Assessment Noted Time PHQ-9 Depression Total Score: 12 023 2:01 PM EST PHQ-2 Depression Total Score: 1 01/13/20 23 4:41 PM EST documented as of this encounter Care Teams Contact Lens Inspector Relationship Specialty Start Date End Date Raffy Orona MD [address] [place] [phone] [email or web address] PCP - General Internal Medicine 06/27/22 Freddy Pugh MD [address] [place] [address] [address] [place] [address] Cardiology 06/01/20 Barb Worley MD [address] [place] [address] Drive [address] [place] [address] Pulmonary Disease 07/08/20 Anayeli Quach MBBS [address] [place] [id number] [email or web address] Medical Oncology 10/20/23 Carolynn Franklin PA-C [address] [place] [phone] [email or web address] Physician Parts Specialist 12/24/24 documented as of this encounter Additional Source Comments The information contained in this document represents components of the legal health record. It is not the complete legal health record.[facility]
--- OUTSIDE RECORDS SUMMARY | 2025-01-28 19:35 | XMS_ITS | Data Portability ---
Author Organization [facility] [employer] [facility], Main Office Address [address] [facility], [address] [place] [address] Care Team Providers Care Director Electronics Name Role Phone PRITI SYLVESTER Primary Care [...] bone Active 2024 Ivanna Gutierrez MD [address] [facility], [address], [place], [address] , [facility] [employer] [facility] 5 18:57:44 Osteonecrosis of hip 120875968 Active 2024 Not Available [facility] 5 08:55:23 Intestinal obstruction 75166359 Active 2024 Not Available [facility] 5 08:48:53 Recurrent bacterial infection 341712477 Active 2024 Not Available [facility] 5 08:49:58 Hypo-osmolali ty and or hyponatremia 415675183 Active 2024 Not Available [facility] 5 08:50:29 Muscle weakness 87014219 Active 2024 Not Available [facility] 5 08:51:14 Dysphagia 81906426 Active 2024 Not Available [facility] 5 08:51:44 Unsteady when standing 335819088 Active 2024 Not Available [facility] 5 08:52:15 Chronic kidney disease stage 3 621374153 Active 2024 Not Available [facility] 5 08:53:48 Abdominal aortic aneurysm without rupture 21375863 Active 2024 Not Available [facility] 5 08:54:19 Hyperlipidemi a 97380080 Active 2024 Not Available [facility] 5 08:54:20 Iron deficiency anemia 09096701 Active 2024 Not Available [facility] 5 12:58:42 Recurrent depression 759358498 Active 2024 Not Available [facility] 5 12:58:44 Abdominal aortic aneurysm 520311293 Active 2024 Jonah Khan MD [address] [facility], [address], [place], [address] , [facility] 5 15:23:25 Atrial fibrillation 36044514 Active 2024 Jonah Khan MD [address] , [address], [place], [address] , [facility] 5 15:24:30 Chronic kidney disease stage 3A 444591410 Active 2024 Jonah Khan MD [address] , [address], [place], [address] , [facility] 5 15:24:38 Chronic obstructive pulmonary disease 31796191 Active 2024 Jonah Khan MD [address] [facility], [address], [place], [address] , [facility] 5 15:24:43 History of malignant neoplasm of uterine body 480031486 Active 2024 Jonah Khan MD [address] [facility], [address], [place], [address] , [facility] 5 15:24:52 Gastroesophag eal reflux disease without esophagitis 036308220 Active 2024 Jonah Khan MD [address] [facility], [address], [place], [address] , [facility] 5 15:24:57 Essential hypertension 98055876 Active 2024 Jonah Khan MD [address] [facility], [address], [place], [address] , [facility] 5 15:25:03 Mixed hyperlipidemi a 304277513 Active 2024 Jonah Khan MD [address] [facility], [address], [place], [address] , [facility] 5 15:25:10 Neurogenic urinary bladder 239778563 Active 2024 Jonah Khan MD [address] [facility], [address], [place], [address] , [facility] 5 15:25:20 Sick sinus syndrome 38427791 Active 2024 Jonah Khan MD [address] [facility], [address], [place], [address] , [facility] [employer] [facility] 5 15:25:25 Pneumonia 719525707 Active 2024 Abby Razo NP [address] [facility], [facility] [address], [place], [address] , [facility] 5 20:37:34 Notes:Some problems listed i n Documents: #[id number], #[id number] could not be added to this patient's [...] Address Organization Details Last Updated DateTime 5 547732. 72 g 68 /min 18 /min 97.5 [degF] 96 % 121/82 mm[Hg] Abby Razo NP [address] [facility], [address], [place], [address], [place] - [facility] 5 14:01:27 Date Recorded Systolic And Diastolic Provider Name and Address Organization Details Last Updated DateTime 04/13/2024 93/76 mm[Hg] Jonah Khan MD [address] [facility], [address], [place], [address], [facility] 04/13/2024 08:22:45 Date Recorded Heart rate Respiratory rate Body temperature Oxygen saturation Systolic And Diastolic Provider Name and Address Organization Details Last Updated DateTime 5 96 /min 18 /min 98.5 [degF] 97 % 101/78 mm[Hg] DERIAN BEE NP [address] [facility], [address], [place], [address], [facility] 5 15:46:11 Date Recorded Heart rate Respiratory rate Body temperature Oxygen saturation Systolic And Diastolic Provider Name and Address Organization Details Last Updated DateTime 5 94 /min 18 /min 97.6 [degF] 94 % 109/81 mm[Hg] DERIAN BEE NP [address] [facility], [address], [place], [address], [facility] 5 13:05:59 Date Recorded Body weight Heart rate Respiratory rate Body temperature Oxygen saturation Systolic And Diastolic Provider Name and Address Organization Details Last Updated DateTime 5 38602.6 3 g 76 /min 18 /min 98.3 [degF] 96.99 % 128/70 mm[Hg] Abby Razo NP [address] [facility], [facility] [address], [place], [address], [facility] 5 12:35:40 Social History Question Answer Notes LastModified by Organization Details LastModified Time Tobacco Smoking Status Never Smoker Jonah Khan MD [address] [facility], [address], [place], [address], [facility] 03/12/2024 15:37:56 Do You Have An Advance Directive? No Information not available 03/12/2024 What Is Your Code Status? Full Code No Art Nutrition Information not available 04/08/2024 Where Do You Live? SingleLevelHouse Information not available 04/08/2024 Do You Have A Medical Power Of Manager Community Outreach? No Information not available 04/08/2024 What Was [...] SARS-COV-2 (COVID-19) vaccine, UNSPECIFIED 03/06/2020 completed Claudia [facility] 03/12/2024 15:19:00 SARS-COV-2 (COVID-19) vaccine, UNSPECIFIED 04/06/2020 completed Claudiagiovanna Ryees [facility] 03/12/2024 15:19:19 SARS-COV-2 (COVID-19) vaccine, UNSPECIFIED 01/19/2021 completed Claudiagiovanna Reyes [facility] 03/12/2024 15:19:30 SARS-COV-2 (COVID-19) vaccine, UNSPECIFIED 07/08/2021 completed [facility] 03/12/2024 15:19:37 Past Encounters Encounter ID Performer Location Encounter Start Date Encounter Closed Date Diagnosis/Indication Diagnosis SNOMED-CT Code Diagnosis ICD10 Code Diagnosis IMO Codes Diagnosis Note [id number] Jonah Khan MD [facility] [address] [place] [address] 03/12/2024 14:57:39 03/13/2024 09:59:50 Clostridium difficile colitis 608535798 A04.72 concern for sepsis secondary to c diff underwent treatment then question if colonized at [facility] for sxcomplete course of PO vanco Acute kidney injury 1466 9001 N17.8 ARF on CRFimprove d with IVFmonitor renal function Idiopathic avascular necrosis of bone 5550995298 M87.852 avascular necrosis left femoral head on imaging was seen by ortho now with plan to f/u for replacemen t Abdominal aortic aneurysm 623263789 I71.43 [facility] to PMH Asthenia 28939276 R53.1 PT OT eval and treatmonit or fall risk and need for increased support in community Atrial fibrillation 4943 6004 I48.0 xarelto 20 mg qdmetoprol ol 50 mg bidmonitor for rate controlreq uired IV lopressor in hospital Chronic ki dney disease stage 3A 878585351 N18.31 carrying dx with recent ARFmonitor renal functionav oid nephrotoxi c meds as ablenephro consult prn Chronic ob structive pulmonary disease 14804305 J41.1 added to PMHmonitor utilizatio n of albuterol History of malignant neoplasm of uterine body 618350675 Z85.42 added to PMH Gastroesop hageal reflux disease without esophagitis 300490024 K21.9 pantoprazo le 40 mg qdmonitor for sx relief Essential hypertension 41632581 I10 metoprolol 50 mg bidmonitor bp and need to titrate Mixed hyperlipidemia 267 104819 E78.2 simvastati n 40 mg qdcontinue d Neurogenic urinary bladder 124389789 N31.8 abdi cath and care Sick sinus syndrome 3608 3008 I49.5 hx of with pacer in place [id number] LEESA Lynch at [facility] on [address] [place] [address] 03/19/2024 09:16:20 03/20/2024 09:36:50 Clostridium difficile colitis 139202660 A04.72 stools resolvedmo nitor for recurrent loose stool Acute kidney injury 1466 9001 N17.8 labs pending todaylast labs in range 21/0.60 Idiopathic avascular necrosis of bone 7878129886 M87.852 avascular necrosis left femoral head on imaging was seen by ortho now with plan to f/u for replacemen tcontinue PT OT see HPI Atrial fibrillation 4943 6004 I48.0 xarelto 20 mg qdmetoprol ol 50 mg bidrate controlled at 79 [id number] LEESA Lynch at [facility] on [address] [place] [address] 03/22/2024 11:37:26 03/25/2024 11:02:46 Acute kidney injury 33033290 N17.8 stable for patientlas t labs in range 24/0.80enc ourage PO fluids Idiopathic avascular necrosis of bone 7504375974 M87.852 continue PTPt ambulated short distances up to 30' within room x4 trials, RW, SBA with cues for improved vetlvns029 30: Car transfer scheduled for this date [...] ol 50 mg bidrate controlled at 79 [id number] LEESA Lynch at [facility] on [address] [place] [address] 03/27/2024 12:47:31 03/28/2024 13:18:07 Acute kidney injury 92487782 N17.8 no labs this week for some reason-add cbc bmp tomorrow 03/28 Atrial fibrillation 4943 6004 I48.0 see HPI- had nuclear stress test today, will follow up tomorrow with cardsconalex nue amiodarone 125 mg every other day per cardsxarel to 20 mg qdmetoprol ol 50 mg bid Cough 19996379 R05.9 STAT chest xray two viewsadd cbc with bmp tomorrowsw ab for flu and covid nowmonitor resp status Nausea 847757590 R11.0 continue prn compazine and re-eval in 30 days [id number] LEESA Lynch at [facility] on [address] [place] [address] 03/28/2024 09:25:01 03/29/2024 13:23:38 Acute kidney injury 11368437 N17.8 labs pending today Atrial fibrillation 4943 6004 I48.0 see HPI- had nuclear stress test, follow up with cards tomorrowco ntinue amiodarone 125 mg every other day per cardsxarel to 20 mg qdmetoprol ol 50 mg bid Cough 94759938 R05.9 waiting on xray resultsif positive send home with miquel spent greater than 15 minutes discussing postpone of DC with patient and SW, ultimately wants to leave, wrote rx for miquel Nausea 548781263 R11.0 continue prn compazine Idiopathic avascular necrosis of bone 7909203164 M87.852 avascular necrosis left femoral head on imaging was seen by ortho now with plan to f/u for replacemen t Abdominal aortic aneurysm 440350633 I71.43 followed by [facility] vascular Asthenia 03982684 R53.1 improved Chronic ki dney disease stage 3A 972589470 N18.31 carrying dx with recent ARFPCP to follow labs Chronic ob structive pulmonary disease 63133245 J41.1 added to PMH History of malignant neoplasm of uterine body 893077272 Z85.42 added to PMH Gastroesop hageal reflux disease without esophagitis 418260887 K21.9 pantoprazo le 40 mg qd Essential hypertension 48689930 I10 metoprolol 50 mg bid Mixed hyperlipidemia 267 025100 E78.2 simvastati n 40 mg qdcontinue d Neurogenic urinary bladder 315657966 N31.8 abdi cath and care Sick sinus syndrome 3608 3008 I49.5 hx of with pacer in place [id number] Abby Razo NP [facility] [address] [place] [address] 04/08/2024 13:58:51 04/09/2024 13:16:49 Acute kidney injury 99143061 N17.8 hxlikely in setting of dehydratio n from diarrheacb c bmp weekly x 3 monitor Atrial fibrillation 4943 6004 I48.0 digoxin 125 mcg qodxarelto 20 mg qdmetoprol ol 50 mg bid Idiopathic avascular necrosis of bone 2958203710 M87.852 PT/OT eval and treatchole calciferol 25 mcg qdhydrocod one tyl q 6 hours prn painsuppor tive caremonito r Clostridiu m difficile colitis 456662542 A04.72 tested neg for cdif this admission, had it last admissions tools improving 1-2 per dayvanomyc in po for 2 more dosesmonit or for recurrent loose stool Abdominal aortic aneurysm 729486385 I71.43 [facility]ap pt with Dr Crook per pt coming upmonitor Asthenia 49768400 R53.1 PT OT eval and treatmonit or fall risk and need for increased support in community Chronic ki dney disease stage 3A 811695383 N18.31 carrying dx with recent ARFmonitor renal functionav oid nephrotoxi c meds as ablenephro consult prn Chronic ob structive pulmonary disease 31516527 J41.1 albuterol prnmonitor History of malignant neoplasm of uterine body 925512794 Z85.42 hx of Gastroesop hageal reflux disease without esophagitis 432258292 K21.9 pantoprazo le 40 mg qdmonitor for sx relief Essential hypertension 96952051 I10 metoprolol 50 mg bidmonitor bp and need to titrate Mixed hyperlipidemia 267 074654 E78.2 simvastati n 40 mg qdcontinue d Neurogenic urinary bladder 631822038 N31.8 abdi cath and carechange monthly per regular regimenmon itor for s/s of infection Sick sinus syndrome 3608 3008 I49.5 hx of with pacer in place Iron defic iency anemia 98985437 D50.9 ferrous sulfate qdvit c qdmonitor labs Recurrent depression 191 089429 F32.A lexapro 10 mg po qdmonitorp sych prn Pneumonia 957555810 J18. 9 with sepsis pneumoniah ad course of ceftriaxon e in hospalb prnduoneb q 4 hours prnmonitor cbc and bmp weekly x 3 Recurrent falls 08039313 2 R29.6 pt with falls from home and very deconditio nedPT OT eval and treatsuppo rtive caremonito r [id number] Jonah Khan MD [address] [address] 04/13/2024 08:22:12 04/16/2024 10:05:52 Sepsis 15067818 A41.89 complete course of abxmonitor for recurrent infection Asthenia 81737644 R53.1 PT OT eval and treatmonit or fall risk and need for increased support in community Clostridiu m difficile colitis 115311195 A04.72 concern for sepsis secondary to c diff underwent treatment then question if colonized at [facility] for sxcomplete course of PO vanco Acute kidney injury 1466 9001 N17.8 ARF on CRFimprove d with IVFmonitor renal function Idiopathic avascular necrosis of bone 6780857262 M87.852 avascular necrosis left femoral head on imaging was seen by ortho now with plan to f/u for replacemen tcoordinat e care Abdominal aortic aneurysm 636366152 I71.43 [facility] vascularad ded to PMH Atrial fibrillation 4943 6004 I48.0 xarelto 20 mg qdmetoprol ol 50 mg bidmonitor for rate control Chronic ki dney disease stage 3A 527087095 N18.31 carrying dx with recent ARFmonitor renal functionav oid nephrotoxi c meds as ablenephro consult prn Chronic ob structive pulmonary disease 25457230 J41.1 added to PMHmonitor utilizatio n of albuterol History of malignant neoplasm of uterine body 271450132 Z85.42 added to PMH Gastroesop hageal reflux disease without esophagitis 199319144 K21.9 pantoprazo le 40 mg qdmonitor for sx relief Essential hypertension 78101500 I10 metoprolol 50 mg bidmonitor bp and need to titrate Mixed hyperlipidemia 267 600702 E78.2 simvastati n 40 mg qdcontinue d Neurogenic urinary bladder 720080370 N31.8 abdi cath and care Sick sinus syndrome 3608 3008 I49.5 hx of with pacer in place [id number] DERIAN BEE NP [facility] [address] 04/17/2024 15:45:04 04/18/2024 14:24:58 Sepsis 25549402 A41.89 completed course of abxmonitor for recurrent infectionV SS, clinically stableChec k labs prn Idiopathic avascular necrosis of bone 9906636065 M87.852 avascular necrosis left femoral head on imaging was seen by ortho now with plan to f/u for replacemen tcoordinat e care with OrthoPT OT eval and tx. Asthenia 90594089 R53.1 PT OT eval and treatmonit or fall risk and need for increased support in community Clostridiu m difficile colitis 729906790 A04.72 concern for sepsis secondary to c diff underwent treatment then question if colonized at [facility] n[facility] for sxcomplete d course of PO vanco Acute kidney injury 1466 9001 N17.8 ARF on CRFimprove d with IVFmonitor renal function Abdominal aortic aneurysm 748763163 I71.43 [facility] vascularad ded to PMH Atrial fibrillation 4943 6004 I48.0 xarelto 20 mg qdmetoprol ol 50 mg bidmonitor for rate control Chronic ki dney disease stage 3A 757012366 N18.31 carrying dx with recent ARFmonitor renal functionav oid nephrotoxi c meds as ablenephro consult prn Chronic ob structive pulmonary disease 87527837 J41.1 added to PMHmonitor utilizatio n of albuterol History of malignant neoplasm of uterine body 917376452 Z85.42 added to PMH Gastroesop hageal reflux disease without esophagitis 106378178 K21.9 pantoprazo le 40 mg qdmonitor for sx relief Essential hypertension 24839522 I10 metoprolol 50 mg bidmonitor bp and need to titrate Mixed hyperlipidemia 267 766280 E78.2 simvastati n 40 mg qdcontinue d Neurogenic urinary bladder 681053046 N31.8 abdi cath and carecontin ue methenamin e 1 gm qd for UTI proph. Sick sinus syndrome 3608 3008 I49.5 hx of with pacer in place [id number] DERIAN BEE NP [facility] [address] [address] 04/24/2024 10:46:51 04/26/2024 14:47:06 Sepsis 88129473 A41.89 resolved.c ompleted course of abxmonitor ing for recurrent infectionV SS, clinically stableChec k labs prn Idiopathic avascular necrosis of bone 0643370982 M87.852 avascular necrosis left femoral head on imaging was seen by ortho now with plan to f/u for replacemen tcoordinat e care with OrthoPT OT eval and tx.Monitor pain, [facility] Asthenia 66650339 R53.1 Continue PT OTmonitor fall risk and need for increased support in community Clostridiu m difficile colitis 034275896 A04.72 concern for sepsis secondary to c diff underwent treatment then question if colonized at [facility]emo nitor for sxcomplete d course of PO vanco Acute kidney injury 1466 9001 N17.8 ARF on CRFimprove d with IVFmonitor renal functionav oid nephrotoxi cs Abdominal aortic aneurysm 928366417 I71.43 [facility] vascularad ded to PMH Atrial fibrillation 4943 6004 I48.0 Continue:x arelto 20 mg qdmetoprol ol 50 mg bidmonitor for rate control Chronic ki dney disease stage 3A 853481327 N18.31 carrying dx with recent ARFmonitor renal functionav oid nephrotoxi c meds as ablenephro consult prn Chronic ob structive pulmonary disease 84625910 J41.1 added to PMHmonitor utilizatio n of albuterol History of malignant neoplasm of uterine body 638714477 Z85.42 added to PMH Gastroesop hageal reflux disease without esophagitis 010644466 K21.9 pantoprazo le 40 mg qdmonitor for sx relief Essential hypertension 97168364 I10 continue metoprolol 50 mg bidmonitor bp and need to titrate Mixed hyperlipidemia 267 892286 E78.2 simvastati n 40 mg qdcontinue d Neurogenic urinary bladder 484623098 N31.8 Chronic - indwelling abdi cath x yrs.contin ue methenamin e 1 gm qd for UTI proph. Sick sinus syndrome 3608 3008 I49.5 hx of with pacer in place Insomnia 447847073 G47.0 9 Pt. requesting sleep aid - add melatonin 5 mg q HS prnMonitor use and effect. Cramp in lower limb 4499 26509 R25.2 In calves, comes and goes, gets some relief when legs moved and stretched. Already on Fe, vitamin/mi neral supplement s.Also on statin.Elle ck labs - CBC, BMP Mg FeContinue to monitor closelyCon traffic operations manager tonic water prnAdden dum - will add tizanidine 2 mg q hs prn for now - monitor use and effect. [id number] [facility] [address] [place] [address] 04/29/2024 12:34:25 05/01/2024 15:15:14 Sepsis 79325380 A41.89 resolved.c ompleted course of abx Insomnia 617901644 G47.0 9 while her melatonin addedcontm elatonin 5 mg q HS prnMonitor use and effect outpt with pcp Cramp in lower limb 4499 49768 R25.2 In calves, comes and goes, gets some relief when legs moved and stretched. resolvingA lready on Fe, vitamin/mi neral supplement s.Also on statin.add ed tizanidine 2 mg q hs prn here with effect will continue prnfu with pcp outpt Idiopathic avascular necrosis of bone 1828273459 M87.852 avascular necrosis left femoral head on imaging was seen by ortho now with plan to f/u for replacemen t=coordina te care with Ortho for future surgeryPT OT eval and tx. prn outptMonit or outpt with pcp and fu with ortho on 05/06hydroc odone/tyl 1 tab q 6 hours prn Asthenia 79256328 R53.1 Continue PT OTmonitor fall risk and need for increased support in community Clostridiu m difficile colitis 842736074 A04.72 resolvedco ncern for sepsis secondary to c diff underwent treatment then question if colonized at [facility] n[facility] for sxcomplete d course of PO vanco and symptomati c Acute kidney injury 1466 9001 N17.8 ARF resolvedAR F on CRFimprove d with IVFmonitor renal functionav oid nephrotoxi csfu with pcp Abdominal aortic aneurysm 763477763 I71.43 followed by [facility] vascular Atrial fibrillation 4943 6004 I48.0 Continue:x arelto 20 mg qdmetoprol ol 50 mg bidmonitor for rate controlfu with pcp Chronic ki dney disease stage 3A 944677150 N18.31 carrying dx with recent ARFmonitor renal functionav oid nephrotoxi c meds as ablenephro consult prnfu with pcp Chronic ob structive pulmonary disease 40195352 J41.1 hx ofmonitor utilizatio n of albuterolf u with pcp History of malignant neoplasm of uterine body 674031222 Z85.42 hx ofchronic foleyfu with pcp Gastroesop hageal reflux disease without esophagitis 887093559 K21.9 pantoprazo le 40 mg qdmonitor for sx relief wtih pcp outpt Essential hypertension 93695044 I10 continue metoprolol 50 mg bidmonitor bp and need to titrate outpt with pcp Mixed hyperlipidemia 267 261227 E78.2 simvastati n 40 mg qdcontinue d with pcp outpt Neurogenic urinary bladder 001620485 N31.8 Chronic - indwelling abdi cath x [...] Ruiz Member ID Guarantor Name 05/01/2024 1 [facility] - MEDICARE PREFERRED (MEDICARE REPLACEMENT HMO) PRAKASH Trupti Jung [id number] 01 Trupti Fabiana Notes Date Note Type Note Provider Name and Address Organization Details Recorded Time 04/08/2024 text/html Patient is a 73 yo female seen today for an initial intake visit. PMH significant for AAA follow by [facility] vascular, a fib, crf stage , copd, gerd, hx uterine ca,hld, htn, neurogenic bladder with abdi, SSS s/p pacer, avascualar necrosis of left hip Trupti is a 73 yo f here at [facility] for rehab [facility] [place] for recent hospitalization 02/27-03/03 for c diff sepsis and dc to rehab at [facility] subsequently dc'd on 03/28/24. Since discharged from home she returned to [place] [facility] on 03/29/24- for progressively weak, persistent [...] high riskBIMS 15/15 Abby Razo NP [address] [facility], [address], [place], [address], [facility] 04/08/2024 20:42:30 04/13/2024 text/html Patient is [...] diff prophylaxis PMH significant forAAA follow by [facility] vasculara fibcrf stage 3copdgerdhx uterine cahldhtnneurogenic bladder with foleySSS s/p pacer admit to facility for continued care and therapy Jonah Khan MD [address] [facility], [address], [place], [address], [facility] 04/13/2024 08:34:24 04/17/2024 text/html Trupti is [...] 04/08 stable. PMH significant forAAA follow by [facility] fibcrf stage 3copdgerdhx uterine cahldhtnneurogenic bladder with foleySSS s/p pacer admit to facility for continued care and therapy DERIAN BEE NP [address] [facility], [address], [place], [address], [facility] 04/17/2024 15:56:56 04/24/2024 text/html Trupti is seen [...] changes. PMH significant forAAA follow by [facility] fibcrf stage 3copdgerdhx uterine cahldhtnneurogenic bladder with foleySSS s/p pacer DERIAN BEE NP [address] [facility], [address], [place], [address], [facility] 04/24/2024 14:07:19 04/29/2024 text/html Trupti is seen today for a discharge visit. PMH significant for AAA follow by [facility] vascular, a fib, crf stage , copd, [...] pain and spasms. Abby Razo NP [address] [facility], [address], [place], [address], [facility] 05/01/2024 12:03:58 OBGyn Episode No OBEpisode recorded.
--- OUTSIDE RECORDS SUMMARY | 2025-01-28 19:35 | XMS_ITS | Encounter Summary ---
Author Organization [facility] Address [address] [place] [address] Phone Care Team Providers Care Hospital Superintendent Name Role Phone KeatonFreddy MD Unavailable [phone] Barb Worley MD Unavailable Raffy Orona MD Primary Care Provider [phone] Anayeli Quach Unavailable [phone] Carolynn Franklin PA-C Unavailable Reason for Visit * Reason Comments Medication Refill Encounter Details Date Type Department Care Team (Late st Contact Info) Description 12/29/2024 Refill [facility] [address] [place] [address] Priscilla Sepulveda, RAIL GANG SUPERVISOR 2 [facility] [place] [address] [email or web address] Medication Refill Social History Tobacco Use Types Packs/Day Years Used Date Smoking Tobacco: Former Cigarettes 0.1 32 1 985 - 2016 Smokeless Tobacco: Never Alcohol Use Standard Drinks/Week [...] as of this encounter Progress Notes * Maeve Cabrera CMA - 12/30/2024 8:29 AM EST Rx Care Gap Status - Instructions for Clinical Staff (prescriber discretion applies): > Mismatch review guide > N/a - No action needed Visit Info Last visit: 05/30/2024 Raffy Orona MD - Internal Medicine [facility] > Requested f/u: Not specified Upcoming visit: 01/29/2025 Raffy Orona MD - Internal Medicine [facility] ACTIONS TAKEN BY Maeve Cabrera CMA - no change Hormone Replacement Therapy Rx Protocol - estradiol Criteria met; renew for up to 12 months. Visit in the past 14 months: Yes documented in this encounter Plan of Treatment Not on file documented as of this encounter Visit Diagnoses Diagnosis Vaginal atrophy Postmenopausal atrophic vaginitis documented in this encounter Additional Health Concerns Assessment Noted Time PHQ-9 Depression Total Score: 12 023 2:01 PM EST PHQ-2 Depression Total Score: 1 01/13/20 23 4:41 PM EST documented as of this encounter Care Teams Hospital Superintendent Relationship Specialty Start Date End Date Raffy Orona MD [address] [place] [address] [email or web address] PCP - General Internal Medicine 06/27/22 Freddy Pugh MD [address] [place] [address] Dr [address] [place] [address] Cardiology 06/01/20 Barb Worley MD [address] [place] [address] Drive [address] [place] [address] Pulmonary Disease 07/08/20 Anayeli Quach MBBS [address] [place] [address] [email or web address] Medical Oncology 10/20/23 Carolynn Franklin PA-C [address] [place] [address] [email or web address] Physician Medical Or Surgical Instrument Maker 12/24/24 documented as of this encounter Additional Source Comments The information contained in this document represents components of the legal health record. It is not the complete legal health record.[facility]
--- OUTSIDE RECORDS SUMMARY | 2025-01-28 19:35 | XMS_ITS | Clinical Summary ---
Author Organization [facility] Address [address] [facility] [address] [place] [address] Phone Care Team Providers Care Driving Teacher Name Role Phone KeatonFreddy MD Unavailable [phone] Barb Worley MD Unavailable [phone] Raffy Orona MD Primary Care Provider [phone] Anayeli Quach Unavailable [phone] Carolynn Franklin PA-C Unavailable [phone] Allergies No known active allergies Medications XARELTO [...] EVERY DAY 90 tablet 2 025 Active ferrous sulfate 325 mg (65 mg united [place] iron) tablet TAKE 1 TABLET (65MG ELEMENTAL IRON), BY MOUTH EVERY OTHER DAY TOLERATED 45 tablet 1 025 Active estradioL (ESTRACE) 0.01 % (0.1 mg/gram) vaginal creamIndications :Vaginal atrophy Place vaginally 2 (two) times a week. 42.5 g 3 025 Active HYDROcodone-acet aminophen (NORCO) 5-325 mg per tabletIndication s:Left hip pain,Chronic bilateral low back pain without sciatica Take 1 tablet by mouth every 8 (eight) hours as needed for pain (specific location in comments) (Hip and back pain). Partial fill ok 84 tablet 025 2025 Active tamsulosin (FLOMAX) 0.4 mg Cap Take 0.4 mg by mouth daily. Take 1 capsule by mouth every day at bedtime 021 2021 Discontinued(N o longer taking) estradioL (ESTRACE) 0.01 % (0.1 mg/gram) vaginal creamIndications :Vaginal atrophy INSERT 2 GRAMS VAGINALLY NIGHTLY FOR 2 WEEKS THEN INSERT 2 GRAMS 2 TIMES A WEEK AT NIGHT THEREAFTER 42.5 g 2 025 2024 Discontinued HYDROcodone-acet aminophen (NORCO) 5-325 [...] the original. This patient is engaged with [facility]. For questions and care coordination please call [phone]. Problem Noted Date Diagnosed Date Muscle strain [...] can be done Monday for example at [facility] and that is where we will [...] home labs Urinary retention 07/27/2021 Overview (11/09/2023): Aaliyah w [facility] urology ov 07/21/23 saw [place] Person ADMIRALTY LAWYER has suprapubic tube in place- VNA changes [...] Lumbar degenerative disc disease 07/08/2020 Overview (05/23/2022): INSURANCE BILLING SPECIALIST P: 05/2022 Urine toxicology: 05/2022 Assessment & Plan (05/23/2022 6:28 AM EDT): Chronic pain, no improvement expected. She will continue hydrocodone/acetaminophen as prescribed as this is helping her remain functional in her ADLs. She does not tolerate additional therapies at this time, stays as active as possible. INSURANCE BILLING SPECIALIST P agreement completed today, urine toxicology screening [...] Encounters Date Type Department Care Team Description 01/24/2025 Telephone [facility] [address] [place] [address] Raffy Orona MD Emesis; Weakness 01/07/2025 Orders Only [facility] Hemat[facility] Oncology Clinic at [address] [address] Yee Betancourt MD 01/03/2025 Refill [facility] [address] [place] [address] Raffy Orona MD Medication Refill (CSRP) 12/31/2024 2:30 PM EST Telemedicine - audio only [facility] Hematology Oncology Clinic at [address] [address] Carolynn Franklin PA-C Anemia, unspecified type (Primary Dx); Low iron stores 12/29/2024 Refill [facility] [address] [place] [address] Priscilla Sepulveda CNP Medication Refill 12/12/2024 Telephone [facility] Care [facility] [address] [place] [address] Lexi Mitchell, ISABELA Labs 12/11/2024 Orders Only [facility] [address] [place] [address] ProviderYee MD 12/09/2024 Telephone [facility] Hematology Oncology Clinic at [address] [address] Carolynn Franklin PA-C 12/09/2024 Orders Only [facility] Hemat[facility] Oncology Clinic at [address] [address] Carolynn Franklin PA-C Anemia, unspecified type (Primary Dx) 12/07/2024 Refill [facility] Hematology Oncology Clinic at [address] [address] Carolynn Franklin PA-C Medication Refill 11/29/2024 Refill [facility] [address] [place] [address] Raffy Orona MD Medication Refill (CSRP) 11/28/2024 Telephone [facility] [address] [place] [address] Raffy Orona MD Labs 11/26/2024 Telephone [facility] [address] [place] [address] Raffy Orona MD SSI 10/31/2024 Refill [facility] [address] [place] [address] Raffy Orona MD Medication Refill from Last [...] 05/30/2024 3:12 PM EDT Plan of Treatment Health Maintenance Due Date [...] OUTSIDE LAB Routine 01/07/2025 3:56 PM EST OUTSIDE LAB Routine 12/10/2024 11:13 AM EST BASIC METABOLIC PANEL (BMP) Routine 03/28/2024 7:45 [...] Health Maintenance Results * Outside Lab (Non-MGB) (01/07/2025 3:56 PM EST) Only the most recent of2 resultswithin the time period is included. us Historical Provider LAB BLOOD BKR ORDERABLES Final Result * (ABNORMAL) Basic metabolic panel (03/28/2024 7:45 AM EST) SODIUM 135 133 - 146 mmol/L [facility] CHLORIDE 104 96 - 108 mmol/L [facility] POTASSIUM 5.0 3.3 - 5.1 mmol/L [facility] Comment:Specimen slightly he molyzed, result may be falsely elevated. CO2 17(L) 21 - 35 mmol/L [facility] BUN 17 6 - 19 mg/dL [facility] CREATININE 0.80 0.5 - 1.5 mg/dL [facility] GLUCOSE 100(H) 70 - 99 mg/dL [facility] CALCIUM 8.8 8.4 - 10.3 mg/dL [facility] EGFR 77 >59 mL/min/1.7 3m2 [facility] Comment:Estimated glomerular filtration rate calculated using the CKD-EPI refit equation. ANION GAP 19 10 - 20 mmol/L [facility] Blood 03/28/2024 7:45 AM EST 03/28/2024 9:22 AM EST us Jonah Khan MD LAB BLOOD BKR ORDERABLES Final R esult [facility] [address] [place] [address] * Outside HDL (04/24/2023) HDL - External 65 40 - 80 mg/dL us Historical Provider LAB BLOOD ORDERABLES Mylene l Result * DEXA SCAN (03/09/2023 12:22 PM EST) us Raffy Orona MD HEALTH MAINTENANCE Edited Res ult - Final * COLONOSCOPY FOR RESULT ENTRY ONLY (05/17/2022) us Elena Jacobo [facility] HEALTH MAINTENANCE Edward kaushik Result - Final from Last 3 Months or Most Recently Relevant to Health Maintenance Insurance [employer] RE[employer]AC[employer] MEDICARE PART A & B [facility] [employer] [employer] [place] REPLAC[employer] MEDICARE PART A & B [facility] [place] [employer] [place] REPLAC[place] MEDICARE PART A & B [employer] REPLAC[employer] MEDICARE PART A & B [employer] REPLAC[employer] MEDICARE PART A & B [facility] [employer] [employer] [place]ED [employer] REPLACEMENT MEDICARE PART A & B [employer] REPLAC[employer] MEDICARE PART A & B Member Subscriber Plan / Payer (Ef fective 2017-) Name:Trupti Jung Member ID:[id number] Relation to Subscriber:Self Name:Trupti Jung Subscriber ID:[id number] Payer ID:[id number] Group ID:Not on file Type:Medicare Address: [facility] [employer] [facility] [address] [place] [id number] [facility] [employer] [employer] PREF[employer] [employer]MO REPLACEMENT MEDICARE PART A & B [facility] [employer] [employer] [place]REF[employer] [employer] REPLACEMENT MEDICARE PART A & B [place] [facility] Advance Directives For more information, please contact: [phone] (9AM - 5PM [facility], Monday-Monday) Documents on File Type Date Recorded Patient Biological Inspector Expl anation Healthcare Proxy 07/19/2022 Healthcare Proxy - 07/19/22 Care Teams Driving Teacher Relationship Specialty Start Date End Date Raffy Orona MD [address] [place] [id number] PCP - General Internal Medicine 06/27/22 Freddy Pugh MD [address] [place] [address] Dr [address] [place] [address] Cardiology 06/01/20 Barb Worley MD [address] [place] [address] Drive [address] [place] [address] Pulmonary Disease 07/08/20 Anayeli Quach MBBS [address] [place] [id number] Medical Oncology 10/20/23 Carolynn Franklin PA-C [address] [place] [email or web address] Physician Youth Program Director 12/24/24 Additional Source Comments The information contained in this document represents components of the legal health record. It is not the complete legal health record.[facility]
--- OUTSIDE RECORDS SUMMARY | 2025-01-28 19:35 | XMS_ITS | Clinical Summary ---
Author Organization [facility] Address [address] [place] [address] Care Team Providers Care Line Up Worker Name Role Phone Elena Jacobo QUALITY MANAGEMENT NURSE Primary Care Provider Allergies No known active [...] 2 (two) times a day. Active Pancrelipase, Qfn-Ngdy-Ekfc, (Creon) 4731-[address] Particles Take 1 capsule [...] Years Used Date Smoking Tobacco: Former Cigarettes 0 Q uit: 2010 Smokeless Tobacco: Never Alcohol [...] Influenza Vaccine 09/06/2024 11/26/2020 COVID-19 Vaccine ( season) 2024 04/06/2020, 03/06/2020 RSV Vaccine 50 years and older and Patients (1 - 1-dose 75+ series) 2024 Chronic Controlled Substance User PDMP Review Discontinued 12/11/2020 Hepatitis B Vaccines Aged Out No long er eligible based on patient's age to complete this topic Medical Devices Implanted Type Area Relationship Associate Device Identifier Shelf Expiration Date Model / Serial / Lot Pacemaker Pacemaker Insurance [facility] [place] OUT OF [place]WORK [employer] MEDICARE Advance Directives * Full Code (Latest Code Status on File) Date Activated Date Inactivated Comments 12/11/2020 8:56 AM Care Teams Line Up Worker Relationship Specialty Start Date End Date Elena Jacobo NP [address] [place] [address] PCP - General Adult Health - PA/APNP/QUALITY MANAGEMENT NURSE/LINE TENDER FLAKEBOARD 12/11/20
[2025-01-28] MEDS: Lactated Ringers 1,000 ML 999 ML IV (19:42)
[2025-01-28 20:02] LABS: Resp Syncy Virus RNA Qual PCR NEGATIVE (Negative); SARS COV2 PCR INHOUSE NEGATIVE (Negative)
[2025-01-28 20:16] LABS: Alanine Aminotransferase 10 U/L (0-31); Albumin Level 3.4 g/dL (3.5-5.0); Alkaline Phosphatase 98 U/L (39-117); Anion Gap 18 (12-20); Aspartate Amino Transferase 23 U/L (5-31); Blood Urea Nitrogen 35 mg/dL (9-16); Calcium 8.8 mg/dL (8.4-10.2); Carbon Dioxide 25 mmol/L (22-29); Chloride 99 mmol/L (96-108); Creatinine Clr Calc Pharmacy 48.1; Estimated Glomerular Filt Rate 54; Lipase 24 U/L (8-78); Magnesium 2.0 mg/dL (1.6-2.6); Potassium 3.4 mmol/L (3.3-5.1); Sodium 139 mmol/L (135-145); Total Protein 6.4 g/dL (6.5-8.0)
[2025-01-28] MEDS: iohexoL 350 MG/ML 100 ML INFUS..BTL IV (20:18)
[2025-01-28 20:29] LABS: Troponin-I High Sensitivity 76.5 ng/L (<3.5-17.0)
[2025-01-28 20:47] LABS: Appearance Urine Cloudy; Glucose Urine UA Negative (Negative); PH 5.5 (5.0-9.0); Specific Gravity - Urine >= 1.030 (1.005-1.025); UMIC TRIGGER UACC YES
[2025-01-28 21:03] LABS: UACC Culture Trigger YES
[2025-01-28 22:33] LABS: Troponin-I High Sensitivity 89.7 ng/L (<3.5-17.0)
--- NOTE | 2025-01-28 23:30 | PM.IMHP ---
History of Present Illness Date of Service: 01/28/25 Attending physician on admission: Gurmeet Polanco Chief Complaint: SOB Patient is a 74-year-old female with past medical history CKD stage 3, AAA currently 5.4 x 5.6, was 5.1 x 5.February, AFib on Xarelto, COPD (does not use home O2), GERD, hyperlipidemia, hypertension, uterine cancer, prolapsed bladder, neurogenic bladder, sick sinus syndrome with PPM (just changed 08/30), Cdiff, avascular necrosis of the left hip and so far patient has not found a physician willing to do the hip replacement so that she can have the AAA repair presents to the emergency department today for complaints of approximately 4 weeks of persistent nausea and vomiting especially this past Monday and Monday to the point that patient could not take her usual medications. Patient has also been reporting ongoing diarrhea which is being treated by her PCP. Patient reports abdominal pain and patient is not clear if it is related to her AAA or something different. Patient was found to be in AFib RVR on arrival and has received treatment for this and heart rates now hovering around 100 irregular. Patient states she is having associated weakness but no falls and poor appetite and poor fluid intake. Patient denies any chest pain or chest pressure. Patient is not having any fever, chills or night sweats. Patient was found to have a leukocytosis of 11.9, with neutrophilia but no bandemia. Electrolytes were stable and renal function was at patient's baseline with a GFR of 54 and a creatinine clearance of 48.1. Glucose 135. Magnesium 2.0. Troponins 76.5 than 89.7. BNP 7521. EKG noted AFib RVR with a rate of [address] abnormality indicating possible inferior subendocardial injury. Patient did have a Lexiscan stress test in March 2024. Urinalysis noted for +1 protein, positive nitrites, moderate leukocyte esterase, 11-20 WBCs and 4+ bacteria. Blood cultures and urine culture were collected in the ED. Patient was started on ceftriaxone and IV fluids in the ED. Patient received IV metoprolol for her AFib RVR. Review of Systems Review of Systems: Patient currently denies any chest pain, chest pressure, shortness breath at rest. Patient is reporting mild abdominal pain and currently denies any nausea or vomiting. Patient denies any recent fever, chills or night sweats. Patient has not had any recent travel or exposure to anybody with illness. Patient denies any headache or visual changes. Yes all other systems are reviewed and are negative [facility] Medical History Chronic atrial fibrillation Small bowel obstruction AAA (abdominal aortic aneurysm) Permanent atrial fibrillation Atrial fibrillation On beta mayra at home Legally blind Retention, urine Pneumonia Exercise hypoxemia GERD (gastroesophageal reflux disease) Hypertension Persistent atrial fibrillation COPD (chronic obstructive pulmonary disease) Dyspnea on exertion HTN (hypertension) Cardiac pacemaker in situ Sick sinus syndrome Cognitive capacity: Alert and orientated x3 Functional capacity: uses cane/walker Patient : No Family History Father CHF (congestive heart failure) Cancer Pacemaker Mother Emphysema lung Surgical History History of appendectomy H/O vaginal surgery History of endoscopy Hx of colonoscopy History of esophagogastroduodenoscopy (EGD) Hx of hysterectomy Hx of cardiac pacemaker History of radiofrequency ablation (RFA) for complex left atrial arrhythmia History of cardioversion Social History Household Members: Family Household Members Other:: AND SON Housing: House Are you a primary home health care coordinator to a significant other at home: No Do you presently have visiting nurse or other home services: No Alcohol intake: former Patient Tobacco Use Status: Former Tobacco user Tobacco use type: Cigarette Smoked in Last 30 Days: No Use of substances other than those prescribed or required for medical reasons: No Advance Directives: Yes Advance Directives on File: Yes Advance Directives Date on File: 07/19/22 Do you have a plan to hurt others: No Plan Nutrition Risks: No Nutritional Risk and Difficulty swallowing Patient : No service: No Meds Allergies Allergy/AdvReac Type Severity Reaction Status Date / Time No Known Allergies (No Known Allergy Verified 01/28/25 19:13 Allergies*) Home Medications ?Medication ?Instructions ?Recorded ?Confirmed ?Last Taken ?Type folic acid 1 mg tablet 1 mg PO DAILY 04/07/20 12/20/24 10/01/22 History simvastatin 40 mg tablet 40 mg PO BEDTIME 02/10/21 12/20/24 10/01/22 History albuterol sulfate 90 mcg/actuation 2 puff inhalation Q6H PRN wheezing 05/12/22 12/20/24 10/01/22 History aerosol inhaler escitalopram oxalate 10 mg tablet 10 mg PO DAILY 02/10/23 12/20/24 Unknown History cholecalciferol (vitamin D3) 25 25 mcg PO DAILY 06/08/23 12/20/24 08/23/24 History mcg (1,000 unit) capsule cyanocobalamin (vitamin B-12) 1,000 mcg PO DAILY 01/19/24 12/20/24 08/23/24 History 1,000 mcg tablet estradiol 0.01% (0.1 mg/gram) 2 g vaginal MOFR 01/19/24 12/20/24 Unknown History vaginal cream ferrous sulfate 325 mg (65 mg 325 mg PO DAILY 01/19/24 12/20/24 Unknown History iron) tablet dicyclomine 10 mg capsule 10 mg PO BID 02/29/24 12/20/24 08/23/24 History magnesium citrate 100 mg capsule 200 mg PO BEDTIME 02/29/24 12/20/24 Unknown History metoprolol tartrate 50 mg tablet 50 mg PO BID 02/29/24 12/20/24 08/23/24 History rivaroxaban 20 mg tablet (Xarelto) 20 mg PO DAILY@1700 02/29/24 12/20/24 08/20/24 History Lactobacillus rhamnosus GG 10 1 cap PO DAILY 03/29/24 12/20/24 Unknown History billion cell capsule (Culturelle) calcium carbonate 500 mg PO DAILY PRN Dyspepsia 03/29/24 12/20/24 Unknown History digoxin 125 mcg (0.125 mg) tablet 125 mcg PO Q OTHER DAY 03/29/24 12/20/24 08/23/24 History fluticasone propionate 50 2 spray intranasal DAILY PRN 03/29/24 12/20/24 Unknown History mcg/actuation nasal Allergy Symptoms spray,suspension ipratropium 0.5 mg-albuterol 3 mg 3 ml inhalation Q4H PRN Wheezing 03/29/24 12/20/24 Unknown History (2.5 mg base)/3 mL nebulization soln tizanidine 2 mg tablet 2 mg PO BEDTIME 08/27/24 12/20/24 Unknown History Physical Exam Vital Signs and Narrative: Vital Signs: Last Vital Signs Temp 97.8 F 01/28/25 21:23 Pulse 99 01/28/25 22:26 Resp 19 01/28/25 22:26 BP 166/105 H 01/28/25 22:26 Pulse Ox 97 01/28/25 22:26 O2 Del Method Room Air 01/28/25 22:26 BMI result Body Mass Index 32.9 Alert and orientated X3, able to give good history. Neuro: CN II-X11 intact, no deficits, visual acuity intact EYES: PERRLA, EOM intact, sclerae nonicteric, conjunctiva pink ENT: hearing intact, no issues with swallowing, uvula midline, lips dry, nares patent no epistaxis, edentulous patient left dentures at home and can eat normal food without her dentures Cardiac: S1 S2 itregular, no murmur, no JVD, no edema in Lower ext Pulmonary: lungs diminished bilaterally Abdominal: BS active in all 4 quadrants, no guarding, tenderness, rebounding, pulsatile sensation noted in the mid abdomen area MSK: strength 4/5 upper and lower extremities : no CVA tenderness no bladder distension Extremities: no edema in lower extremities, PT and DP pulses palpable +2 Psych: mood stable, judgement and insight good Skin: No new lesions or rashes Results Labs 01/29/25 05:12 01/29/25 05:12 Labs: Laboratory Results - last 24 hr 01/28/25 01/28/25 01/28/25 19:09 19:26 19:56 MCV 86.0 MCH 27.8 MCHC 32.3 RDW 15.7 Plt Count 323 D MPV 9.1 L Immature Gran % (Auto) 0.9 H Neut % (Auto) 86.1 H Lymph % (Auto) 6.9 L [place] % (Auto) 5.7 Eos % (Auto) 0.1 Baso % (Auto) 0.3 Lymph # (Auto) 0.8 L [place] # (Auto) 0.7 Eos # (Auto) 0.0 Baso # (Auto) 0.0 Abs Immat Gran (auto) 0.11 H Absolute Neuts (auto) 10.3 H Absolute Nucleated RBC 0.000 Nucleated RBC % (auto) 0.0 PT 12.4 INR 1.0 Anion Gap 18 Estim Creat Clear Calc 48.1 Estimated GFR 54 Random Glucose 135 H Lactic Acid 2.0 Calcium 8.8 Magnesium 2.0 Total Bilirubin 0.2 AST 23 ALT 10 Alkaline Phosphatase 98 Troponin I High Sens 76.5 H* D NT-Pro-B Natriuret Pep 7521.5 H Total Protein 6.4 L Albumin 3.4 L Lipase 24 Urine Color Urine Appearance Urine pH Ur Specific [place] Urine Protein Urine Glucose (UA) Urine Ketones Urine Blood Urine Nitrite Ur Leukocyte Esterase Urine RBC Urine WBC Ur Squamous Epith Cells Urine Bacteria Hyaline Casts Urine Yeast Influenza Type A (PCR) NEGATIVE Influenza Type B (PCR) NEGATIVE RSV RNA Qual (PCR) NEGATIVE SARS-CoV-2 RNA (RT-PCR) NEGATIVE 01/28/25 01/28/25 20:37 22:06 MCV MCH MCHC RDW Plt Count MPV Immature Gran % (Auto) Neut % (Auto) Lymph % (Auto) [place] % (Auto) Eos % (Auto) Baso % (Auto) Lymph # (Auto) [place] # (Auto) Eos # (Auto) Baso # (Auto) Abs Immat Gran (auto) Absolute Neuts (auto) Absolute Nucleated RBC Nucleated RBC % (auto) PT INR Anion Gap Estim Creat Clear Calc Estimated GFR Random Glucose Lactic Acid Calcium Magnesium Total Bilirubin AST ALT Alkaline Phosphatase Troponin I High Sens 89.7 H* NT-Pro-B Natriuret Pep Total Protein Albumin Lipase Urine Color Yellow Urine Appearance Cloudy Urine pH 5.5 Ur Specific [place] >= 1.030 H Urine Protein 30 (1+) H Urine Glucose (UA) Negative Urine Ketones 15 Urine Blood Negative Urine Nitrite Positive H Ur Leukocyte Esterase Moderate (2+) H Urine RBC 0-2 Urine WBC 11-20 Ur Squamous Epith Cells 0-2 Urine Bacteria 4+ Hyaline Casts 3-5 Urine Yeast Present Influenza Type A (PCR) Influenza Type B (PCR) RSV RNA Qual (PCR) SARS-CoV-2 RNA (RT-PCR) ECG Attestation: I personally reviewed and interpreted this ECG as follows: (Atrial fibrillation with rapid ventricular response, marked ST abnormality possible inferior subendocardial injury) Prior ECG tracings: available for review Assessment and Plan (1) Atrial fibrillation with rapid ventricular response: Status: Acute (2) Acute UTI: Status: Acute (3) Abdominal aortic aneurysm: Qualifiers: Abdominal aorta location: infrarenal aorta Presence of rupture: without rupture Qualified Code(s): I71.43 - Infrarenal abdominal aortic aneurysm, without rupture Status: Acute Plan Patient is a 74-year-old female with past medical history CKD stage 3, AAA currently 5.4 x 5.6, was 5.1 x 5.February, AFib on Xarelto, COPD (does not use home O2), GERD, hyperlipidemia, hypertension, uterine cancer, prolapsed bladder, neurogenic bladder, sick sinus syndrome with PPM (just changed 08/30), Cdiff, avascular necrosis of the left hip and so far patient has not found a physician willing to do the hip replacement so that she can have the AAA repair presents to the emergency department today for complaints of approximately 4 weeks of persistent nausea and vomiting especially this past Monday and Monday to the point that patient could not take her usual medications. Patient has also been reporting ongoing diarrhea which is being treated by her PCP. Patient did not meet criteria for sepsis on admission. AFib RVR Patient may have missed her meds for approximately 24-48 hours due to persistent nausea and vomiting Dig level pending, if within normal limits or low can resume did once med rec completed Patient has responded well to metoprolol IV Continue Xarelto Cardiology consulted Mag 2.0, TSH normal back in December of 2024 Telemetry UTI/ neurogenic bladder UA positive for UTI Patient is started on ceftriaxone 1 g daily Continue to follow urine culture Goal would be to change patient's current Cadet catheter Patient normally on methenamine Elevated troponin/ elevated BNP Possible demand ischemia secondary to AFib RVR We will request echocardiogram in the a.m. Cardiology consulted Daily weights, measure I's and o's Q shift Telemetry Persistent nausea/vomiting/diarrhea - hx of CDIFF Currently diarrhea has resolved No recent travel or exposure to people with illness We will order stool panel Viral studies for COVID, flu and RSV are all negative Continue supportive care with antiemetics and IV hydration GERD/ ? esophageal motility issues Omeprazole Issues with food getting stuck in esophagus ST eval requested GI consulted Aspiration precautions ordered Pt does not have dentures here but states she can eat normal food without them Abdominal aortic aneurysm - currently 5.4 x 5.6, was 5.1 x 5.February No evidence of rupture ED provider did talk to Dr. Crook and it was permissible for patient to be admitted to [facility] at this time We will consult vascular Control blood pressure and avoid hypotension COPD without exacerbation Duo singh p.r.n. Supportive care as needed Patient currently on room air and does not use oxygen at home Hyperlipidemia Continue statin DVT prophylaxis: Xarelto Med rec pending Full code. Patient will require at least a 2 midnight stay for IV antibiotics, expert consultation with Cardiology and vascular. Quality Stroke Does the patient have a stroke diagnosis?: No Reason for No Anti-thrombotic by Day Two: N/A - Med Ordered VTE Prior VTE?: No VTE Risk Level:: Medical - moderate - high VTE Device Contraindication: N/A - Device Ordered VTE Drug Contraindication: N/A - Med Ordered
[2025-01-29] VITALS (12 sets, daily range): BP systolic 80–171; BP diastolic 41–113; PULSE 66–99; RESP 13–19; TEMP 36.4–36.9; O2SAT 92–98
[2025-01-29] MEDS: 0.9 % Sodium Chloride Flush 3 ML SYRINGE IVFLUSH ×2 (01:12→20:38)
--- NOTE | 2025-01-29 02:18 | HO.NURTONUR ---
Addendum entered by Silvina Allen RN 01/29/25 16:12: Pt abdi removed and replaced with 16fr- patent, asymptomatic. BPs were soft this AM- verbal order from MD Dozier to increase fluid rate to 125ml/hr. NS running @125ml/hr. BPs have since improved- 111/65. Per MD Dozier- hold aspirin or xarelto. Cardiology Consult done this AM along with Echocardiogram. Seen by general surgery- plan for pt to f/u outpatient for AAA Original Note: pt BIBA reporting n/v/d x4wks, to the point that patient could not take her usual medications. ADMIT: AFib, UTI, AAA HX AFib. - Afib RVR on arrival. currently afib 80s on tele, cardiology consult. UTI- chronic abdi n/v/d- hx CDiff, diarrhea has resolved [employer]. GERD- feels something stuck in esophagus, GI consult, ST consult, did not bring dentures to ED. can eat okay w/out them AAA- vascular consult 20g RAC, NS infusing 100 mls/hr pt A/O x4, calm and cooperative with care, ambulates with walker at baseline, assist with ALDs d/t weakness.
[2025-01-29 02:29] LABS: Troponin-I High Sensitivity 73.8 ng/L (<3.5-17.0)
[2025-01-29 05:17] LABS: MANUAL DIFF FLAG NO
[2025-01-29 05:18] LABS: Hematocrit 36.6 % (37.0-47.0); Hemoglobin 11.9 g/dl (12.0-16.0); Imm Gran Abs Auto 0.08 X10*3/uL (0.00-0.03); Imm Gran Pct Auto 0.9 % (0.0-0.4); Lymphocytes Absolute Auto 1.4 X10*3/uL (1.2-4.9); Mean Corpuscular HGB Conc 32.5 g/dl (31.0-35.0); Mean Corpuscular Hemoglobin 27.8 pg (27.0-33.0); Mean Corpuscular Volume 85.5 fL (80.0-98.0); NRBC Abs Auto 0.000 X10*3/uL (0.0-0.012); NRBC Pct Auto 0.0 /100WBC (0.0-0.2); Platelet Count 241 X10*3/uL (160-400); Red Blood Count 4.28 X10*6/uL (4.20-5.50); White Blood Count 8.5 X10*3/uL (4.8-10.8)
[2025-01-29 05:31] LABS: Digoxin 0.2 ng/mL (0.8-2.0)
[2025-01-29 05:32] LABS: Alanine Aminotransferase < 6 U/L (0-31); Albumin Level 2.7 g/dL (3.5-5.0); Alkaline Phosphatase 80 U/L (39-117); Anion Gap 14 (12-20); Aspartate Amino Transferase 19 U/L (5-31); Blood Urea Nitrogen 25 mg/dL (9-16); Calcium 8.0 mg/dL (8.4-10.2); Carbon Dioxide 23 mmol/L (22-29); Chloride 105 mmol/L (96-108); Creatinine Clr Calc Pharmacy 62.5; Estimated Glomerular Filt Rate > 60; Potassium 3.6 mmol/L (3.3-5.1); Sodium 138 mmol/L (135-145); Total Protein 5.2 g/dL (6.5-8.0)
--- NOTE | 2025-01-29 07:00 | CA_ITS ---
Transthoracic Echocardiogram Patient (Last, First, Middle): Trupti Jung A Gender: Female Date of : 1950 Age: 74 Procedure Date: 01/29/2025 Procedure Type: Transthoracic Echocardiogram Location: ER Height: 157.48 cm Weight: 81.65 kg BSA: 1.83 m2 Heart Rate: 77 bpm BP: 124 / 68 mmHg Manager Resort: [place] Referring MD: Kerry Braxton [facility] Patient Relations Coordinator: Freddy Pugh MD Symptoms: Elevated BNP, elevated troponin Study Quality: Adequate ECG Rhythm: Atrial Fibrillation Conclusions: - 1. Normal LV ejection fraction 60 65% 2. Moderately reduced RV systolic function by TAPSE 3. Severely dilated left atrium next 4. Normal cardiac valvular Dopplers 5. Normal RV systolic pressure 6. No gross pericardial effusion Findings Left Ventricle Normal left ventricular size, thickness, and systolic function. The visually estimated ejection fraction is between 60-65%. Diastolic function is indeterminate on the basis of available data. There is moderate septal asymmetric hypertrophy. Right Ventricle Normal right ventricular cavity size. There is moderately decreased right ventricular systolic function. There is a pacemaker wire seen in the right ventricle. Atria The left atrium is severely dilated. Interatrial shunt cannot be excluded. The right atrium is likely dilated. A pacemaker wire is identified in the right atrium. Aortic Valve Normal aortic valve structure and function. There is no aortic valve stenosis. There is no aortic valve regurgitation. Mitral Valve Normal mitral valve structure and function. There is mild mitral valve stenosis. Pulmonic Valve The pulmonic valve is likely normal. There is trace pulmonic valve regurgitation. Tricuspid Valve Normal tricuspid valve structure. There is mild tricuspid valve regurgitation. The right ventricular systolic pressure is normal. The right ventricular systolic pressure is 21 mmHg. Normal right atrial pressure. There is no evidence of pulmonary hypertension. Great Vessels All visible segments of the aorta are normal in size. There is no dilatation of the ascending aorta measuring 3.10 cm. Small plaque is seen in the sino tubular ridge. Prior Study Comparison No significant change compared to prior study dated: 02/29/2024. Measurements 2D Linear Measurements IVSd: 1.08 0.6-0.9/0.6-1.0 cm LVIDd: 4.08 3.9-5.3/4.2-5.9 cm LVIDd Index: 2.23 2.4-3.2/2.2-3.1 cm/m2 LVIDs: 3.20 2.0-3.6 cm LVPWd: 0.91 0.7-1.1 cm LA Diam: 4.10 2.7-3.8/3.0-4.0 cm LAIDs Index: 2.24 1.5-2.3 cm/m2 LV Mass: 161.39 67-162/88-224 g LV Mass Index: 88.19 43-95/49-115 g/m2 LVOT Diam: 2.10 3.0+(-)1.3 cm 2D Systolic Function EF 4C: 60.10 >55% EF 2C: 61.20 >55% EF BiP: 60.00 >55% Mitral Valve MV Pk E: 0.66 E'Lateral: 9.98 E'Medial: 6.31 E/E' Med: 10.50 E/E' Lat: 6.60 Aortic Valve AoV Pk Eliezer: 1.26 AoV Pk Grad: 6.00 AIHSWARYA: 2.06 LVOT LVOT Pk Eliezer: 0.75 LVOT Mn Eliezer: 0.53 LVOT VTI: 0.13 LVOT Pk Grad: 2.00 LVOT Mn Grad: 1.00 LVOT Diam: 2.10 LVOT Area: 3.46 Diastolic Function MV Pk E: 0.66 E'Medial: 6.31 E/E' Med: 10.50 E' Laterial: 9.98 E/E' Lat: 6.60 Right Ventricle TAPSE (mm): 13.90 TVS' Eliezer: 8.16 Tricuspid Valve TR Pk Eliezer: 2.12 TR Pk Grad: 18.00 RA Press: 3.00 RVSP: 21.00 Great Vessels Aorta Sinus of Valsalva: 3.30 2.0-3.5 cm Ao Asc: 3.10 2.1-3.4 cm Pulmonary Valve PV Pk Eliezer: 0.81 Peak PV Grad: 3.00 Updated in Other Vendor System with Status of Final Freddy Pugh MD electronically signed on 01/29/2025 1:20:56 PM with status of Final
--- NOTE | 2025-01-29 07:40 | HO.PM.IMPN ---
Subjective Subjective Date of Service: 01/29/25 Interval History: Patient reports good tolerance of p.o. diet Patient was noted to have AFib with RVR-cardiology consulted, digoxin - digoxin loading with 0.25 mg IV push q.6 x3 doses Vascular surgery-outpatient management for AAA Review of Systems Review of Systems: Yes all other systems are reviewed and are negative Physical Exam Exam: Exam: General: AOx3, appears frail and ill Resp: CTA bilaterally CVS: S1, S2, RRR GI: +BS, NT, no distention Neuro: Cranial nerves II-XII grossly intact bilaterally. Motor grossly intact bilaterally Psych: Appropriate affect Vital Signs: Vital Signs: Last Vital Signs Temp 98.5 F 01/29/25 00:44 Pulse 67 01/29/25 06:00 Resp 15 01/29/25 06:00 BP 105/66 01/29/25 06:00 Pulse Ox 98 01/29/25 06:00 O2 Del Method Room Air 01/29/25 06:00 BMI result Body Mass Index 32.9 Objective Data Active Medications Acetaminophen (Acetaminophen 325 Mg Tablet) 650 mg PO Q6H PRN PRN Reason: Pain, Mild 1-3,fever,headache Albuterol/Ipratropium (Albuterol/Iprat 2.5/0.5mg 3 Ml Ampul.Neb) 3 ml INHALE Q4H PRN PRN Reason: Shortness of Breath/Wheezing Calcium Carbonate (Calcium Carbonate 750 Mg Tab.Chew) 750 mg PO Q4H PRN PRN Reason: Heartburn Hydralazine HCl (Hydralazine Hcl 20 Mg/Ml Vial) 5 mg IVPUSH Q6H PRN; Protocol PRN Reason: SBP > 160 Ceftriaxone Sodium 1 gm/ (Sodium Chloride) 50 mls @ 100 mls/hr IV Q24H LUCY Sodium Chloride (Ns) 1,000 mls @ 100 mls/hr IVCONT .Q10H LUCY Last Admin: 01/29/25 01:12 Dose: 100 mls/hr Documented By: MELINDA Magnesium Hydroxide (Milk Of Magnesia 30 Ml Oral.Susp) 30 ml PO DAILY PRN PRN Reason: Constipation Melatonin (Melatonin 3 Mg Tablet) 6 mg PO BEDTIME PRN PRN Reason: Insomnia Omeprazole (Omeprazole 20 Mg Capsule.Dr) 20 mg PO DAILY@0630 [facility] Ondansetron HCl (Ondansetron Hcl 4 Mg/2 Ml Vial) 4 mg IVPUSH Q8H PRN PRN Reason: Nausea and Vomiting Last Admin: 01/29/25 02:04 Dose: 4 mg Documented By: MELINDA Polyethylene Glycol (Polyethylene Glycol 3350 17 Gm Powd.Pack) 17 gm PO DAILY PRN PRN Reason: Constipation Senna (Sennosides 8.6 Mg Tablet) 17.2 mg PO BEDTIME LUCY Sodium Chloride (0.9 % Sodium Chloride Flush 3 Ml Syringe) 3 ml IVFLUSH QSHIFT LUCY Last Admin: 01/29/25 01:12 Dose: 3 ml Documented By: MELINDA Labs 01/29/25 05:12 01/29/25 05:12 Labs: Laboratory Results - last 24 hr 01/28/25 01/28/25 01/28/25 19:09 19:26 19:56 MCV 86.0 MCH 27.8 MCHC 32.3 RDW 15.7 Plt Count 323 D MPV 9.1 L Immature Gran % (Auto) 0.9 H Neut % (Auto) 86.1 H Lymph % (Auto) 6.9 L [place] % (Auto) 5.7 Eos % (Auto) 0.1 Baso % (Auto) 0.3 Lymph # (Auto) 0.8 L [place] # (Auto) 0.7 Eos # (Auto) 0.0 Baso # (Auto) 0.0 Abs Immat Gran (auto) 0.11 H Absolute Neuts (auto) 10.3 H Absolute Nucleated RBC 0.000 Nucleated RBC % (auto) 0.0 PT 12.4 INR 1.0 Anion Gap 18 Estim Creat Clear Calc 48.1 Estimated GFR 54 Random Glucose 135 H Lactic Acid 2.0 Calcium 8.8 Magnesium 2.0 Total Bilirubin 0.2 AST 23 ALT 10 Alkaline Phosphatase 98 Troponin I High Sens 76.5 H* D NT-Pro-B Natriuret Pep 7521.5 H Total Protein 6.4 L Albumin 3.4 L Lipase 24 Urine Color Urine Appearance Urine pH Ur Specific [place] Urine Protein Urine Glucose (UA) Urine Ketones Urine Blood Urine Nitrite Ur Leukocyte Esterase Urine RBC Urine WBC Ur Squamous Epith Cells Urine Bacteria Hyaline Casts Urine Yeast Digoxin Influenza Type A (PCR) NEGATIVE Influenza Type B (PCR) NEGATIVE RSV RNA Qual (PCR) NEGATIVE SARS-CoV-2 RNA (RT-PCR) NEGATIVE 01/28/25 01/28/25 01/29/25 20:37 22:06 01:59 MCV MCH MCHC RDW Plt Count MPV Immature Gran % (Auto) Neut % (Auto) Lymph % (Auto) [place] % (Auto) Eos % (Auto) Baso % (Auto) Lymph # (Auto) [place] # (Auto) Eos # (Auto) Baso # (Auto) Abs Immat Gran (auto) Absolute Neuts (auto) Absolute Nucleated RBC Nucleated RBC % (auto) PT INR Anion Gap Estim Creat Clear Calc Estimated GFR Random Glucose Lactic Acid Calcium Magnesium Total Bilirubin AST ALT Alkaline Phosphatase Troponin I High Sens 89.7 H* 73.8 H* NT-Pro-B Natriuret Pep Total Protein Albumin Lipase Urine Color Yellow Urine Appearance Cloudy Urine pH 5.5 Ur Specific [place] >= 1.030 H Urine Protein 30 (1+) H Urine Glucose (UA) Negative Urine Ketones 15 Urine Blood Negative Urine Nitrite Positive H Ur Leukocyte Esterase Moderate (2+) H Urine RBC 0-2 Urine WBC 11-20 Ur Squamous Epith Cells 0-2 Urine Bacteria 4+ Hyaline Casts 3-5 Urine Yeast Present Digoxin Influenza Type A (PCR) Influenza Type B (PCR) RSV RNA Qual (PCR) SARS-CoV-2 RNA (RT-PCR) 01/29/25 05:12 MCV 85.5 MCH 27.8 MCHC 32.5 RDW 15.8 Plt Count 241 D MPV 8.8 L Immature Gran % (Auto) 0.9 H Neut % (Auto) 74.6 H Lymph % (Auto) 16.0 L [place] % (Auto) 7.8 Eos % (Auto) 0.5 Baso % (Auto) 0.2 Lymph # (Auto) 1.4 [place] # (Auto) 0.7 Eos # (Auto) 0.0 Baso # (Auto) 0.0 Abs Immat Gran (auto) 0.08 H Absolute Neuts (auto) 6.3 Absolute Nucleated RBC 0.000 Nucleated RBC % (auto) 0.0 PT INR Anion Gap 14 Estim Creat Clear Calc 62.5 Estimated GFR > 60 Random Glucose 100 Lactic Acid Calcium 8.0 L D Magnesium Total Bilirubin 0.2 AST 19 ALT < 6 Alkaline Phosphatase 80 Troponin I High Sens NT-Pro-B Natriuret Pep Total Protein 5.2 L Albumin 2.7 L Lipase Urine Color Urine Appearance Urine pH Ur Specific [place] Urine Protein Urine Glucose (UA) Urine Ketones Urine Blood Urine Nitrite Ur Leukocyte Esterase Urine RBC Urine WBC Ur Squamous Epith Cells Urine Bacteria Hyaline Casts Urine Yeast Digoxin 0.2 L Influenza Type A (PCR) Influenza Type B (PCR) RSV RNA Qual (PCR) SARS-CoV-2 RNA (RT-PCR) Assessment and Plan (1) Pneumonia: Status: Resolved Plan 71-year-old female with a past medical history significant for persistent atrial fibrillation on Xarelto, CKD stage 3, abdominal aortic aneurysm (AAA) followed by [facility], COPD (not on home oxygen), GERD, history of uterine cancer, hyperlipidemia, hypertension, chronic indwelling Cadet catheter due to neurogenic bladder, sick sinus syndrome with a pacemaker in situ, and avascular necrosis of the left hip, presenting with gradually persistent nausea vomiting diarrhea and poor oral intake. AFib RVR Troponinemia type 2 demand SSS PCM -appears to be functioning at baseline Cardiology consulted Patient may have missed her meds for approximately 24-48 hours due to persistent nausea and vomiting Digoxin level subtherapeutic, digoxin loading with 0.25 mg IV push q.6 x3 doses Repeat TTE-normal left ventricle, enlarged left atrium Continue metoprolol home dose, we will add IV for to maintain rate Continue Xarelto We will likely need outpatient cardiac catheterization TTE 01/29/2025- - 1. Normal LV ejection fraction 60 65% 2. Moderately reduced RV systolic function by TAPSE 3. Severely dilated left atrium next 4. Normal cardiac valvular Dopplers 5. Normal RV systolic pressure 6. No gross pericardial effusion Troponinemia likely type 2 Daily I's and os Low-sodium diet Sepsis likely due to UTI/ neurogenic bladder-chronic Cadet UA positive for UTI given chronic Cadet Continue ceftriaxone 1 g daily, change per C/S Continue to follow urine culture Goal would be to change patient's current Cadet catheter Patient normally on methenamine Persistent nausea/vomiting/diarrhea Denies any further diarrheal episodes however we will check C diff and GI panel Preemptively given her prior history of C diff, given that we are treating her with antibiotics we will give her p.o. vancomycin GERD Omeprazole Chronic dysphagia Speech therapy evaluated the patient-cleared her Abdominal aortic aneurysm - currently 5.4 x 5.6, was 5.1 x 5.February No evidence of rupture Was briefly hypotensive likely secondary to AFib with RVR Vascular surgery Dr. Crook consulted-outpatient management of expanding AAA COPD without exacerbation Duo nebs p.r.n. Supportive care as needed Patient currently on room air and does not use oxygen at home Hyperlipidemia Continue statin DVT prophylaxis: Xarelto Full code. Patient will need ongoing hospitalization given tenuous cardiac pathology and we will need to ensure adequate p.o. intake. This note is constructed using voice recognition software. While every effort has been made to ensure accuracy, rubber attacher errors may have been included. Quality Stroke Does the patient have a stroke diagnosis?: No Reason for No Anti-thrombotic by Day Two: N/A - Med Ordered VTE Prior VTE?: No VTE Risk Level:: Medical - moderate - high VTE Device Contraindication: N/A - Device Ordered VTE Drug Contraindication: N/A - Med Ordered
--- NOTE | 2025-01-29 08:00 | ECG_ITS ---
Test Reason : RHYTHM CHECK Blood Pressure : */* mmHG Vent. Rate : 94 BPM Atrial Rate : * BPM P-R Int : * ms QRS Dur : 86 ms QT Int : 328 ms P-R-T Axes : * 56 243 degrees QTcB Int : 410 ms Atrial fibrillation Septal infarct (cited on or before 28-Jan-2025) ST & T wave abnormality, consider anterior ischemia Abnormal ECG When compared with ECG of 28-Jan-2025 18:54, Serial changes of Septal infarct Present ST less depressed in inferior and inferolateral leads Referred By: Kerry Braxton Electronically Signed By: SUBHA QUEZADA MD
--- NOTE | 2025-01-29 08:51 | PC.NURSE ---
US at bedside
--- NOTE | 2025-01-29 10:19 | PHA.MEDREC ---
Addendum entered by Irwin Wu PharmD 01/29/25 10:32: Reviewed Original Note: Pharmacy Consult ? Medication Reconciliation Pharmacy has completed the medication reconciliation. Spoke with pt son (Maurisio [phone]) and he was able to confirm the pt medications. Pt taking Digoxin 125mg, Ferrous Sulfate 325mg (Iron) and Tizanidine 2mg every other day; pt taking Tizanidine every other day for a few months now according to pt son and pt took these meds last yesterday 01/28, she takes Vitamin C 500mg, Escitalopram 10mg, Lansoprazole 30mg and Zinc Sulfate 50mg once daily@1200, pt taking Prochlorperazine 5mg once daily; pt son states pt takes once in the Am and if needed pt will take Ondansetron if she gets nauseous again in the day and she no longer takes Flonase as it is not helping her anymore.
--- NOTE | 2025-01-29 10:50 | PC.NURSE ---
Pt abdi removed at bedside and replaced with 16fr abdi. Pt tolerated procedure well. Abdi documented in worklist. Call vasquez within reach, all needs met at this time.
[2025-01-29] MEDS: Ferrous Sulfate 324 MG TABLET.DR PO (11:23)
--- NOTE | 2025-01-29 11:59 | PC.NURSE ---
Addendum entered by Silvina Allen RN 01/29/25 12:01: Per MD Dozier- Verbal order increase maintenance fluids to 125ml/hr. NS running @125ml/hr at this time. Original Note: BPs noted to be soft 80s/40s- documented in worklist. Pt asymptomatic- denies dizziness/lightheadedness/CP/SOB. MD Dozier made aware. Awaiting further orders at this time.
--- NOTE | 2025-01-29 12:00 | PC.NURSE ---
Per MD Dozier- hold aspirin or xarelto.
--- NOTE | 2025-01-29 12:24 | P.CONCA_ITS ---
History of Present Illness History of Present Illness Date of Service: 01/29/25 Requesting physician: Kerry Braxton Consult reason: atrial fibrillation, troponin elevation and other Chief complaint: N/V x3 weeks, weak, dizziness Narrative: I was consulted to see Trupti in cardiology consultation today for elevated troponins and low blood pressure. Patient 74 year female known to me for many years with prior history of atrial fibrillation, chronic has failed rhythm control approach and has been treated with rate control, prior to that she had a dual-chamber pacemaker for sick sinus syndrome and currently he is programmed in VVIR mode due to chronic atrial fibrillation, COPD with chronic respiratory failure currently not on home oxygen, hypertension, no clear history of coronary artery disease with myocardial perfusion imaging in last March showing normal myocardial perfusion, abdominal aortic aneurysm by most recent CAT scan done during this admission shows worsening with abdominal aortic aneurysm at 5.6 cm with partial thrombosis being followed by vascular surgery. Patient says she has not been feeling well for few weeks and has had GI symptoms mostly nausea and vomiting and was few days he has not been able to keep taking her medications. She came to the hospital with dizziness and also had episodes of diarrhea although she denied me any episodes of diarrhea. She gets intermittent episodes of chest tightness she says last for few sec. They are not clearly related to any exertional. Does have chronic exertional shortness of breath. When she came to the emergency room she was noted to be in atrial fibrillation with rapid ventricular response with ST-depression suggestive of ischemia or rate related ST-depression. Troponins were drawn although she did not have active chest pain at that time which were minimally elevated and flat. That has no clear rise and fall. She has not been. Blood pressure remains low. Diagnose with urinary tract infection. Cardiology consult was sought because of elevated troponins as well as atrial fibrillation with rapid ventricular response with lowish blood pressure. Review of Systems 2 Constitutional: Constitutional: Reports fatigue, Reports fever(s), Reports malaise and Reports weakness Eyes: Eyes: Reports no additional eye complaints Cardiovascular: Cardiovascular: Reports chest pain at rest (Describes as chest tightness less last for few sec), Reports rapid heart rate, Reports lightheadedness, Denies Loss of Consciousness, Reports dyspnea on exertion, Denies orthopnea and Denies paroxysmal nocturnal dyspnea Respiratory: Respiratory: Reports dyspnea on exertion Gastrointestinal: Gastrointestinal: Reports diarrhea, Reports nausea and Reports vomiting Musculoskeletal: Musculoskeletal: Reports no additional musculoskeletal complaints Neurologic: Reports system reviewed and no additional complaints, except as documented and Reports weakness Endocrine: Endocrine: Reports fatigue [facility] Past Medical History Medical History Chronic atrial fibrillation Small bowel obstruction AAA (abdominal aortic aneurysm) Permanent atrial fibrillation Atrial fibrillation On beta mayra at home Legally blind Retention, urine Pneumonia Exercise hypoxemia GERD (gastroesophageal reflux disease) Hypertension Persistent atrial fibrillation COPD (chronic obstructive pulmonary disease) Dyspnea on exertion HTN (hypertension) Cardiac pacemaker in situ Sick sinus syndrome Family History Family History Father CHF (congestive heart failure) Cancer Pacemaker Mother Emphysema lung Surgical History Surgical History History of appendectomy H/O vaginal surgery History of endoscopy Hx of colonoscopy History of esophagogastroduodenoscopy (EGD) Hx of hysterectomy Hx of cardiac pacemaker History of radiofrequency ablation (RFA) for complex left atrial arrhythmia History of cardioversion Social History Social History Household Members: Family Household Members Other:: AND SON Housing: House Are you a primary ostomy care nurse to a significant other at home: No Do you presently have visiting nurse or other home services: No Alcohol intake: former Patient Tobacco Use Status: Former Tobacco user Tobacco use type: Cigarette Smoked in Last 30 Days: No Use of substances other than those prescribed or required for medical reasons: No Advance Directives: Yes Advance Directives on File: Yes Advance Directives Date on File: 07/19/22 Do you have a plan to hurt others: No Plan Nutrition Risks: No Nutritional Risk and Difficulty swallowing Patient : No service: No Meds Allergies Allergy/AdvReac Type Severity Reaction Status Date / Time No Known Allergies (No Known Allergy Verified 01/28/25 19:13 Allergies*) Active Medications: Current Medications Acetaminophen (Acetaminophen 325 Mg Tablet) 650 mg PO Q6H PRN PRN Reason: Pain, Mild 1-3,fever,headache Albuterol Sulfate (Albuterol Sulfate 90 Mcg 8 Gm Inhaler) 2 puff INHALE Q6H PRN PRN Reason: Wheezing Albuterol/Ipratropium (Albuterol/Iprat 2.5/0.5mg 3 Ml Ampul.Neb) 3 ml INHALE Q4H PRN PRN Reason: Shortness of Breath/Wheezing Albuterol/Ipratropium (Albuterol/Iprat 2.5/0.5mg 3 Ml Ampul.Neb) 3 ml INHALE Q4H PRN PRN Reason: Wheezing Atorvastatin Calcium (Atorvastatin Calcium 20 Mg Tablet) 20 mg PO BEDTIME [facility] Calcium Carbonate (Calcium Carbonate 750 Mg Tab.Chew) 750 mg PO Q4H PRN PRN Reason: Heartburn Dicyclomine HCl (Dicyclomine Hcl 10 Mg Capsule) 10 mg PO BID [facility] Digoxin (Digoxin 0.125 Mg Tablet) 0.125 mg PO Q48H [facility]; Protocol Last Admin: 01/29/25 11:23 Dose: 0.125 mg Escitalopram Oxalate (Escitalopram Oxalate 10 Mg Tablet) 10 mg PO DAILY [facility] Ferrous Sulfate (Ferrous Sulfate 324 Mg Tablet.) 324 mg PO Q48H [facility] Last Admin: 01/29/25 11:23 Dose: 324 mg Hydralazine HCl (Hydralazine Hcl 20 Mg/Ml Vial) 5 mg IVPUSH Q6H PRN; Protocol PRN Reason: SBP > 160 Ceftriaxone Sodium 1 gm/ (Sodium Chloride) 50 mls @ 100 mls/hr IV Q24H [facility] Sodium Chloride (Ns) 1,000 mls @ 100 mls/hr IVCONT .Q10H [facility] Last Admin: 01/29/25 11:22 Dose: 100 mls/hr Magnesium Hydroxide (Milk Of Magnesia 30 Ml Oral.Susp) 30 ml PO DAILY PRN PRN Reason: Constipation Magnesium Oxide (Magnesium Oxide 400 Mg Tablet) 200 mg PO BEDTIME [facility] Melatonin (Melatonin 3 Mg Tablet) 6 mg PO BEDTIME PRN PRN Reason: Insomnia Metoprolol Tartrate (Metoprolol Tartrate 50 Mg Tablet) 50 mg PO BID [facility]; Protocol Omeprazole (Omeprazole 20 Mg Capsule.) 20 mg PO DAILY@0630 [facility] Last Admin: 01/29/25 08:55 Dose: 20 mg Ondansetron HCl (Ondansetron Hcl 4 Mg/2 Ml Vial) 4 mg IVPUSH Q8H PRN PRN Reason: Nausea and Vomiting Last Admin: 01/29/25 02:04 Dose: 4 mg Polyethylene Glycol (Polyethylene Glycol 3350 17 Gm Powd.Pack) 17 gm PO DAILY PRN PRN Reason: Constipation Senna (Sennosides 8.6 Mg Tablet) 17.2 mg PO BEDTIME [facility] Sodium Chloride (0.9 % Sodium Chloride Flush 3 Ml Syringe) 3 ml IVFLUSH QSHIFT [facility] Last Admin: 01/29/25 09:00 Dose: Not Given Home Medications ?Medication ?Instructions ?Recorded ?Confirmed ?Last Taken ?Type folic acid 1 mg tablet 1 mg PO DAILY@1200 04/07/20 01/29/25 01/28/25 History simvastatin 40 mg tablet 40 mg PO BEDTIME 02/10/2101/28/25 History albuterol sulfate 90 mcg/actuation 2 puff inhalation Q 6H PRN wheezing 05/12/22 01/29/25 10/01/22 History aerosol inhaler escitalopram oxalate 10 mg tablet 10 mg PO DAILY 02/1001/29/25 01/28/25 History cholecalciferol (vitamin D3) 25 25 mcg PO DAILY 01/29/25 01/28/25 History mcg (1,000 unit) capsule cyanocobalamin (vitamin B-12) 1,000 mcg PO DAILY 01/1801/29/25 01/28/25 History 1,000 mcg tablet estradiol 0.01% (0.1 mg/gram) 2 g vaginal MOTH 4 01/29/25 01/23/25 History vaginal cream ferrous sulfate 325 mg (65 mg 325 mg PO Q48H 01/19/24 01/29/25 01/28/25 History iron) tablet dicyclomine 10 mg capsule 10 mg PO BID 02/29/2401/28/25 History magnesium citrate 100 mg capsule 200 mg PO BEDTIME 01/29/25 01/27/25 History metoprolol tartrate 50 mg tablet 50 mg PO BID 02/29/24 01/29/25 01/28/25 History rivaroxaban 20 mg tablet (Xarelto) 20 mg PO DAILY@1700 02/29/24 01/29/25 01/27/25 History calcium carbonate 500 mg PO DAILY PRN Dyspepsi a 03/29/24 01/29/25 Unknown History digoxin 125 mcg (0.125 mg) tablet 125 mcg PO Q OTHER D AY 03/29/24 01/29/25 01/28/25 History ipratropium 0.5 mg-albuterol 3 mg 3 ml inhalation Q4H PRN Wheezing 03/29/24 01/29/25 Unknown History (2.5 mg base)/3 mL nebulization soln tizanidine 2 mg tablet 2 mg PO BEDTIME 08/27/2401/28/25 History ascorbic acid (vitamin C) 500 mg 500 mg PO DAILY@1200 01/29/25 01/29/25 01/28/25 History tablet (Vitamin C) diphenoxylate-atropine 2.5 1 tab PO Q6-8H PRN Loose St ool 01/29/25 01/29/25 Unknown History mg-0.025 mg tablet (Lomotil) lansoprazole 30 mg capsule,delayed 30 mg PO DAILY@1200 01/29/25 01/29/25 01/28/25 History release melatonin 5 mg tablet 5 mg PO BEDTIME PRN Sleep 01/29/25 Unknown History zinc sulfate 50 mg zinc (220 mg) 50 mg PO DAILY@1200 1 04/01/24 01/29/25 01/28/25 History capsule Physical Exam 2 Vital Signs: Vital Signs: Last Vital Signs Temp 98.5 F 01/29/25 08:09 Pulse 81 01/29/25 11:49 Resp 15 01/29/25 11:21 BP 88/51 L 01/29/25 11:49 Pulse Ox 94 01/29/25 11:21 O2 Del Method Room Air 01/29/25 11:21 BMI result Body Mass Index 32.9 Const: General: cooperative, comfortable, no acute distress, alert, awake and ill appearing Nutritional Appearance: thin Orientation/consciousness: p atient oriented x3 HEENT: Head: Yes normocephalic and Yes atraumatic Neck: Neck: Yes trachea midline, Yes supple and Yes no JVD Resp: Effort & Inspection: normal respiratory effort Auscultation: no rales, no wheezes and diminished lung sounds Cardio: Jugular venous distension: no JVD Rhythm: abnormal rhythm irregularly irregular Heart sounds: S1 normal heart sound present, S2 normal heart sound present, no click, no gallops and no murmurs GI: Auscultation: normal bowel sounds Skin: General skin exam: no rashes or lesions noted Neuro: General: patient oriented x3 and no focal motor deficits Extrem: General: Yes no clubbing, cyanosis or edema Psych: Appearance: grossly normal Objective Labs and Meds 01/29/25 05:12 01/29/25 05:12 Lab results: Laboratory Results - last 24 hr 01/28/25 01/28/25 01/28/25 19:09 19:26 19:56 WBC 11.9 H RBC 5.51 H Hgb 15.3 Hct 47.4 H MCV 86.0 MCH 27.8 MCHC 32.3 RDW 15.7 Plt Count 323 D MPV 9.1 L Immature Gran % (Auto) 0.9 H Neut % (Auto) 86.1 H Lymph % (Auto) 6.9 L [place] % (Auto) 5.7 Eos % (Auto) 0.1 Baso % (Auto) 0.3 Lymph # (Auto) 0.8 L [place] # (Auto) 0.7 Eos # (Auto) 0.0 Baso # (Auto) 0.0 Abs Immat Gran (auto) 0.11 H Absolute Neuts (auto) 10.3 H Absolute Nucleated RBC 0.000 Nucleated RBC % (auto) 0.0 PT 12.4 INR 1.0 Sodium 139 Potassium 3.4 D Chloride 99 Carbon Dioxide 25 Anion Gap 18 BUN 35 H Creatinine 1.00 Estim Creat Clear Calc 48.1 Estimated GFR 54 Random Glucose 135 H Lactic Acid 2.0 Calcium 8.8 Magnesium 2.0 Total Bilirubin 0.2 AST 23 ALT 10 Alkaline Phosphatase 98 Troponin I High Sens 76.5 H* D NT-Pro-B Natriuret Pep 7521.5 H Total Protein 6.4 L Albumin 3.4 L Lipase 24 Urine Color Urine Appearance Urine pH Ur Specific [place] Urine Protein Urine Glucose (UA) Urine Ketones Urine Blood Urine Nitrite Ur Leukocyte Esterase Urine RBC Urine WBC Ur Squamous Epith Cells Urine Bacteria Hyaline Casts Urine Yeast Digoxin Influenza Type A (PCR) NEGATIVE Influenza Type B (PCR) NEGATIVE RSV RNA Qual (PCR) NEGATIVE SARS-CoV-2 RNA (RT-PCR) NEGATIVE 01/28/25 01/28/25 01/29/25 20:37 22:06 01:59 WBC RBC Hgb Hct MCV MCH MCHC RDW Plt Count MPV Immature Gran % (Auto) Neut % (Auto) Lymph % (Auto) [place] % (Auto) Eos % (Auto) Baso % (Auto) Lymph # (Auto) [place] # (Auto) Eos # (Auto) Baso # (Auto) Abs Immat Gran (auto) Absolute Neuts (auto) Absolute Nucleated RBC Nucleated RBC % (auto) PT INR Sodium Potassium Chloride Carbon Dioxide Anion Gap BUN Creatinine Estim Creat Clear Calc Estimated GFR Random Glucose Lactic Acid Calcium Magnesium Total Bilirubin AST ALT Alkaline Phosphatase Troponin I High Sens 89.7 H* 73.8 H* NT-Pro-B Natriuret Pep Total Protein Albumin Lipase Urine Color Yellow Urine Appearance Cloudy Urine pH 5.5 Ur Specific [place] >= 1.030 H Urine Protein 30 (1+) H Urine Glucose (UA) Negative Urine Ketones 15 Urine Blood Negative Urine Nitrite Positive H Ur Leukocyte Esterase Moderate (2+) H Urine RBC 0-2 Urine WBC 11-20 Ur Squamous Epith Cells 0-2 Urine Bacteria 4+ Hyaline Casts 3-5 Urine Yeast Present Digoxin Influenza Type A (PCR) Influenza Type B (PCR) RSV RNA Qual (PCR) SARS-CoV-2 RNA (RT-PCR) 01/29/25 05:12 WBC 8.5 RBC 4.28 D Hgb 11.9 L D Hct 36.6 L D MCV 85.5 MCH 27.8 MCHC 32.5 RDW 15.8 Plt Count 241 D MPV 8.8 L Immature Gran % (Auto) 0.9 H Neut % (Auto) 74.6 H Lymph % (Auto) 16.0 L [place] % (Auto) 7.8 Eos % (Auto) 0.5 Baso % (Auto) 0.2 Lymph # (Auto) 1.4 [place] # (Auto) 0.7 Eos # (Auto) 0.0 Baso # (Auto) 0.0 Abs Immat Gran (auto) 0.08 H Absolute Neuts (auto) 6.3 Absolute Nucleated RBC 0.000 Nucleated RBC % (auto) 0.0 PT INR Sodium 138 Potassium 3.6 Chloride 105 Carbon Dioxide 23 Anion Gap 14 BUN 25 H Creatinine 0.77 Estim Creat Clear Calc 62.5 Estimated GFR > 60 Random Glucose 100 Lactic Acid Calcium 8.0 L D Magnesium Total Bilirubin 0.2 AST 19 ALT < 6 Alkaline Phosphatase 80 Troponin I High Sens NT-Pro-B Natriuret Pep Total Protein 5.2 L Albumin 2.7 L Lipase Urine Color Urine Appearance Urine pH Ur Specific [place] Urine Protein Urine Glucose (UA) Urine Ketones Urine Blood Urine Nitrite Ur Leukocyte Esterase Urine RBC Urine WBC Ur Squamous Epith Cells Urine Bacteria Hyaline Casts Urine Yeast Digoxin 0.2 L Influenza Type A (PCR) Influenza Type B (PCR) RSV RNA Qual (PCR) SARS-CoV-2 RNA (RT-PCR) Assessment and Plan (1) Elevated troponin: Status: Acute Elevated troponin this elderly woman presented with a acute medical illness with low blood pressure as well as possible urosepsis/UTI with rapid atrial fibrillation because of not taking medications. Troponin could be secondary to subendocardial ischemia related to rapid heart rate as well as acute medical illness. Also possibility of stress-induced cardiomyopathy is likely. This does not represent primary acute coronary syndrome. She could have underlying obstructive CAD although her myocardial perfusion imaging in March is reassuring with normal perfusion. I would treat this with rate control and supportive care and manage her blood pressure and treat her infection aggressively. Obtain a echocardiogram, limited to evaluate for wall motion abnormality. Resume her usual oral anticoagulation dose as longest that has no planned surgery or intervention. (2) Atrial fibrillation with rapid ventricular response: Status: Acute Atrial fibrillation rapid ventricular response, has been restarted on metoprolol therapy. Rate is better controlled. If there is issue with blood pressure and maintain a rate could use digoxin loading with 0.25 mg IV push q.6 x3 doses. Continue full disclosure cardiac telemetry. Resume oral anticoagulation if there are no plans surgical interventions. (3) Cardiac pacemaker in situ: Status: Acute Cardiac pacemaker in-situ, on a backup pacing. Intermittent pacing noted while I was seeing the patient. Pacemaker function appears to be adequate. Will follow up with you Procedures Date of Service Date of Service: 01/29/25
--- NOTE | 2025-01-29 12:51 | MHC.CM.PN ---
IMM was addressed with Patient. Patient lives in a house with her Son/HCP/Maurisio and her and she uses a walker. Patient is active with [facility] and home/resume said services is the goal. CM has initiated and will follow for dc planning. PCP is Dr. Raffy Orona and Son will transport at dc. Initialized on 01/29/25 12:48 - END OF NOTE
--- NOTE | 2025-01-29 12:56 | P.CONGS_ITS ---
History of Present Illness Consult details Consult date: 01/29/25 Reason for consult: other (Aortic aneurysm) Narrative: This is a 74-year-old female with a past medical history of CKD and aortic aneurysm who presented to the hospital on 01/28/2025 with shortness of breath. Upon discussion with her she has persistent nausea and vomiting has not been able to clearly tolerate p.o. for the last couple of weeks. She has had very poor appetite and has generalized weakness. She is a very frail woman. She has seen me in the past regarding her aortic aneurysm and now presents for follow-up evaluation regarding her aortic aneurysm. Review of Systems 2 Review of Systems: Yes all other systems are reviewed and are negative Constitutional: Constitutional: Reports no additional constitutional complaints ENT: Reports Normal hearing present Cardiovascular: Cardiovascular: Denies chest pain, Denies chest pain at rest, Denies chest pain with activity and Denies pedal edema Respiratory: Respiratory: Denies cough Gastrointestinal: Gastrointestinal: Denies abdominal pain Musculoskeletal: Musculoskeletal: Denies abnormal gait, Denies muscle cramps and Denies radiating pain into limb Integumentary/Breasts: Skin/Breast: Denies skin ulcer and Denies wounds Neurologic: Reports Normal hearing present and Denies abnormal gait Psychiatric: Psychiatric: Reports no additional psychiatric complaints PMFSH Past Medical History Medical History Chronic atrial fibrillation Small bowel obstruction AAA (abdominal aortic aneurysm) Permanent atrial fibrillation Atrial fibrillation On beta mayra at home Legally blind Retention, urine Pneumonia Exercise hypoxemia GERD (gastroesophageal reflux disease) Hypertension Persistent atrial fibrillation COPD (chronic obstructive pulmonary disease) Dyspnea on exertion HTN (hypertension) Cardiac pacemaker in situ Sick sinus syndrome Family History Family History Father CHF (congestive heart failure) Cancer Pacemaker Mother Emphysema lung Surgical History Surgical History History of appendectomy H/O vaginal surgery History of endoscopy Hx of colonoscopy History of esophagogastroduodenoscopy (EGD) Hx of hysterectomy Hx of cardiac pacemaker History of radiofrequency ablation (RFA) for complex left atrial arrhythmia History of cardioversion Social History Social History Household Members: Family Household Members Other:: AND SON Housing: House Are you a primary director of career resources to a significant other at home: No Do you presently have visiting nurse or other home services: No Alcohol intake: former Patient Tobacco Use Status: Former Tobacco user Tobacco use type: Cigarette Smoked in Last 30 Days: No Use of substances other than those prescribed or required for medical reasons: No Advance Directives: Yes Advance Directives on File: Yes Advance Directives Date on File: 07/19/22 Do you have a plan to hurt others: No Plan Nutrition Risks: No Nutritional Risk and Difficulty swallowing Patient : No service: No Meds Allergies Allergy/AdvReac Type Severity Reaction Status Date / Time No Known Allergies (No Known Allergy Verified 01/28/25 19:13 Allergies*) Active Medications: Current Medications Acetaminophen (Acetaminophen 325 Mg Tablet) 650 mg PO Q6H PRN PRN Reason: Pain, Mild 1-3,fever,headache Albuterol Sulfate (Albuterol Sulfate 90 Mcg 8 Gm Inhaler) 2 puff INHALE Q6H PRN PRN Reason: Wheezing Albuterol/Ipratropium (Albuterol/Iprat 2.5/0.5mg 3 Ml Ampul.Neb) 3 ml INHALE Q4H PRN PRN Reason: Shortness of Breath/Wheezing Albuterol/Ipratropium (Albuterol/Iprat 2.5/0.5mg 3 Ml Ampul.Neb) 3 ml INHALE Q4H PRN PRN Reason: Wheezing Atorvastatin Calcium (Atorvastatin Calcium 20 Mg Tablet) 20 mg PO BEDTIME [facility] Calcium Carbonate (Calcium Carbonate 750 Mg Tab.Chew) 750 mg PO Q4H PRN PRN Reason: Heartburn Dicyclomine HCl (Dicyclomine Hcl 10 Mg Capsule) 10 mg PO BID [facility] Digoxin (Digoxin 0.125 Mg Tablet) 0.125 mg PO Q48H [facility]; Protocol Last Admin: 01/29/25 11:23 Dose: 0.125 mg Escitalopram Oxalate (Escitalopram Oxalate 10 Mg Tablet) 10 mg PO DAILY [facility] Ferrous Sulfate (Ferrous Sulfate 324 Mg Tablet.Dr) 324 mg PO Q48H [facility] Last Admin: 01/29/25 11:23 Dose: 324 mg Hydralazine HCl (Hydralazine Hcl 20 Mg/Ml Vial) 5 mg IVPUSH Q6H PRN; Protocol PRN Reason: SBP > 160 Ceftriaxone Sodium 1 gm/ (Sodium Chloride) 50 mls @ 100 mls/hr IV Q24H [facility] Sodium Chloride (Ns) 1,000 mls @ 100 mls/hr IVCONT .Q10H [facility] Last Admin: 01/29/25 11:22 Dose: 100 mls/hr Magnesium Hydroxide (Milk Of Magnesia 30 Ml Oral.Susp) 30 ml PO DAILY PRN PRN Reason: Constipation Magnesium Oxide (Magnesium Oxide 400 Mg Tablet) 200 mg PO BEDTIME [facility] Melatonin (Melatonin 3 Mg Tablet) 6 mg PO BEDTIME PRN PRN Reason: Insomnia Metoprolol Tartrate (Metoprolol Tartrate 50 Mg Tablet) 50 mg PO BID [facility]; Protocol Omeprazole (Omeprazole 20 Mg Capsule.Dr) 20 mg PO DAILY@0630 [facility] Last Admin: 01/29/25 08:55 Dose: 20 mg Ondansetron HCl (Ondansetron Hcl 4 Mg/2 Ml Vial) 4 mg IVPUSH Q8H PRN PRN Reason: Nausea and Vomiting Last Admin: 01/29/25 02:04 Dose: 4 mg Polyethylene Glycol (Polyethylene Glycol 3350 17 Gm Powd.Pack) 17 gm PO DAILY PRN PRN Reason: Constipation Senna (Sennosides 8.6 Mg Tablet) 17.2 mg PO BEDTIME [facility] Sodium Chloride (0.9 % Sodium Chloride Flush 3 Ml Syringe) 3 ml IVFLUSH QSHIFT [facility] Last Admin: 01/29/25 09:00 Dose: Not Given Home Medications ?Medication ?Instructions ?Recorded ?Confirmed ?Last Taken ?Type folic acid 1 mg tablet 1 mg PO DAILY@1200 04/07/20 01/29/25 01/28/25 History simvastatin 40 mg tablet 40 mg PO BEDTIME 02/10/2101/28/25 History albuterol sulfate 90 mcg/actuation 2 puff inhalation Q 6H PRN wheezing 05/12/22 01/29/25 10/01/22 History aerosol inhaler escitalopram oxalate 10 mg tablet 10 mg PO DAILY 02/1001/29/25 01/28/25 History cholecalciferol (vitamin D3) 25 25 mcg PO DAILY 01/29/25 01/28/25 History mcg (1,000 unit) capsule cyanocobalamin (vitamin B-12) 1,000 mcg PO DAILY 12/01/29/25 01/28/25 History 1,000 mcg tablet estradiol 0.01% (0.1 mg/gram) 2 g vaginal MOTH 4 01/29/25 01/23/25 History vaginal cream ferrous sulfate 325 mg (65 mg 325 mg PO Q48H 01/19/24 01/29/25 01/28/25 History iron) tablet dicyclomine 10 mg capsule 10 mg PO BID 02/29/2401/28/25 History magnesium citrate 100 mg capsule 200 mg PO BEDTIME 01/29/25 01/27/25 History metoprolol tartrate 50 mg tablet 50 mg PO BID 02/29/24 01/29/25 01/28/25 History rivaroxaban 20 mg tablet (Xarelto) 20 mg PO DAILY@1700 02/29/24 01/29/25 01/27/25 History calcium carbonate 500 mg PO DAILY PRN Dyspepsi a 03/29/24 01/29/25 Unknown History digoxin 125 mcg (0.125 mg) tablet 125 mcg PO Q OTHER D AY 03/29/24 01/29/25 01/28/25 History ipratropium 0.5 mg-albuterol 3 mg 3 ml inhalation Q4H PRN Wheezing 03/29/24 01/29/25 Unknown History (2.5 mg base)/3 mL nebulization soln tizanidine 2 mg tablet 2 mg PO BEDTIME 08/27/2401/28/25 History ascorbic acid (vitamin C) 500 mg 500 mg PO DAILY@1200 01/29/25 01/29/25 01/28/25 History tablet (Vitamin C) diphenoxylate-atropine 2.5 1 tab PO Q6-8H PRN Loose St ool 01/29/25 01/29/25 Unknown History mg-0.025 mg tablet (Lomotil) lansoprazole 30 mg capsule,delayed 30 mg PO DAILY@1200 01/29/25 01/29/25 01/28/25 History release melatonin 5 mg tablet 5 mg PO BEDTIME PRN Sleep 01/29/25 Unknown History zinc sulfate 50 mg zinc (220 mg) 50 mg PO DAILY@1200 1 04/01/24 01/29/25 01/28/25 History capsule Physical Exam 2 Vital Signs: Vital Signs: Last Vital Signs Temp 98.5 F 01/29/25 08:09 Pulse 81 01/29/25 11:49 Resp 15 01/29/25 11:21 BP 88/51 L 01/29/25 11:49 Pulse Ox 94 01/29/25 11:21 O2 Del Method Room Air 01/29/25 11:21 BMI result Body Mass Index 32.9 Const: General: cooperative, healthy appearing and comfortable O rientation/consciousness: oriented to person, oriented to place and oriented to time HEENT: Head: Yes normal to inspection Neck: Neck: Yes normal visual inspection Carotids: no bruits Chest: Chest palpation & inspection: normal inspection of the chest Resp: Effort & Inspection: normal respiratory effort and able to speak in complete sentences Auscultation: clear to auscultation bilaterally, no crackles, no rales, no rhonchi and no wheezes Cardio: Rate: regular rate Rhythm: regular rhythm Heart sounds: S1 normal heart sound present and S2 normal heart sound present Bruits: no carotid bruits Peripheral pulses: Peripheral pulses 2+ throughout GI: Inspection: Yes normal to inspection Skin: Wounds: no wounds Hair: normal Neuro: General: oriented to person, oriented to place and oriented to time Cranial nerves: Yes CN's II-XII intact bilaterally and Yes Normal hearing present Cognition (Neuro): normal cognition Motor exam (neuro): 5/5 motor strength present throughout Extrem: Other: venous exam: No significant superficial varicosities or spider telangiectasias, minimal edema General: No clubbing, No cyanosis and No edema Psych: Appearance: grossly normal Mental Status: mental status grossly normal Speech and movement: Normal speech and movement present Results Labs 01/29/25 05:12 01/29/25 05:12 Labs: Abnormal lab results 01/28/25 01/28/25 01/28/25 Range/Units 19:09 19:26 19:56 WBC 11.9 H (4.8-10.8) X10*3/uL RBC 5.51 H (4.20-5.50) X10*6/uL Hgb (12.0-16.0) g/dl Hct 47.4 H (37.0-47.0) % MPV 9.1 L (9.4-12.3) fL Immature Gran % (Auto) 0.9 H (0.0-0.4) % Neut % (Auto) 86.1 H (45-73) % Lymph % (Auto) 6.9 L (20-40) % Lymph # (Auto) 0.8 L (1.2-4.9) X10*3/uL Abs Immat Gran (auto) 0.11 H (0.00-0.03) X10*3/uL Absolute Neuts (auto) 10.3 H (2.0-8.3) x10*3/uL BUN 35 H (9-16) mg/dL Random Glucose 135 H (60-115) mg/dL Calcium (8.4-10.2) mg/dL Troponin I High Sens 76.5 H* D (<3.5-17.0) ng/L NT-Pro-B Natriuret Pep 7521.5 H (<300) pg/mL Total Protein 6.4 L (6.5-8.0) g/dL Albumin 3.4 L (3.5-5.0) g/dL Ur Specific [place] (1.005-1.025) Urine Protein (Neg-Trace) mg/dL Urine Nitrite (Negative) Ur Leukocyte Esterase (Negative) Digoxin (0.8-2.0) ng/mL 01/28/25 01/28/25 01/29/25 Range/Units 20:37 22:06 01:59 WBC (4.8-10.8) X10*3/uL RBC (4.20-5.50) X10*6/uL Hgb (12.0-16.0) g/dl Hct (37.0-47.0) % MPV (9.4-12.3) fL Immature Gran % (Auto) (0.0-0.4) % Neut % (Auto) (45-73) % Lymph % (Auto) (20-40) % Lymph # (Auto) (1.2-4.9) X10*3/uL Abs Immat Gran (auto) (0.00-0.03) X10*3/uL Absolute Neuts (auto) (2.0-8.3) x10*3/uL BUN (9-16) mg/dL Random Glucose (60-115) mg/dL Calcium (8.4-10.2) mg/dL Troponin I High Sens 89.7 H* 73.8 H* (<3.5-17.0) ng/L NT-Pro-B Natriuret Pep (<300) pg/mL Total Protein (6.5-8.0) g/dL Albumin (3.5-5.0) g/dL Ur Specific [place] >= 1.030 H (1.005-1.025) Urine Protein 30 (1+) H (Neg-Trace) mg/dL Urine Nitrite Positive H (Negative) Ur Leukocyte Esterase Moderate (2+) H (Negative) Digoxin (0.8-2.0) ng/mL 01/29/ Range/Units 05:12 WBC (4.8-10.8) X10*3/uL RBC (4.20-5.50) X10*6/uL Hgb 11.9 L D (12.0-16.0) g/dl Hct 36.6 L D (37.0-47.0) % MPV 8.8 L (9.4-12.3) fL Immature Gran % (Auto) 0.9 H (0.0-0.4) % Neut % (Auto) 74.6 H (45-73) % Lymph % (Auto) 16.0 L (20-40) % Lymph # (Auto) (1.2-4.9) X10*3/uL Abs Immat Gran (auto) 0.08 H (0.00-0.03) X10*3/uL Absolute Neuts (auto) (2.0-8.3) x10*3/uL BUN 25 H (9-16) mg/dL Random Glucose (60-115) mg/dL Calcium 8.0 L D (8.4-10.2) mg/dL Troponin I High Sens (<3.5-17.0) ng/L NT-Pro-B Natriuret Pep (<300) pg/mL Total Protein 5.2 L (6.5-8.0) g/dL Albumin 2.7 L (3.5-5.0) g/dL Ur Specific [place] (1.005-1.025) Urine Protein (Neg-Trace) mg/dL Urine Nitrite (Negative) Ur Leukocyte Esterase (Negative) Digoxin 0.2 L (0.8-2.0) ng/mL Short CBC 01/28/25 01/29/25 Range/Units 19:09 05:12 WBC 11.9 H 8.5 (4.8-10.8) X10*3/uL Hgb 15.3 11.9 L D (12.0-16.0) g/dl Hct 47.4 H 36.6 L D (37.0-47.0) % Plt Count 323 D 241 D (160-400) X10*3/uL BMP 01/28/25 01/29/25 19:56 05:12 Sodium 139 138 Potassium 3.4 D 3.6 Chloride 99 105 Carbon Dioxide 25 23 BUN 35 H 25 H Creatinine 1.00 0.77 Calcium 8.8 8.0 L D Liver Function 01/28/25 01/29/25 Range/Units 19:56 05:12 Total Bilirubin 0.2 0.2 (0.0-1.0) mg/dL AST 23 19 (5-31) U/L ALT 10 < 6 (0-31) U/L Alkaline Phosphatase 98 80 (39-117) U/L Albumin 3.4 L 2.7 L (3.5-5.0) g/dL Urine 01/28/25 Range/Units 20:37 Urine Color Yellow Urine Appearance Cloudy Urine pH 5.5 (5.0-9.0) Ur Specific [place] >= 1.030 H (1.005-1.025) Urine Protein 30 (1+) H (Neg-Trace) mg/dL Urine Glucose (UA) Negative (Negative) mg/dL All other labs normal. Imaging Additional studies: CT scan reviewed Assessment and Plan (1) Infrarenal abdominal aortic aneurysm (AAA) without rupture: Status: Acute Plan In short patient has a stable infrarenal aortic aneurysm. At the current time it measures 5.4 x 5.6 which is an increase since February. It is nearly a year later. At the current time she does have inability to tolerate p.o. along with some shortness of breath. She needs to be medically stabilized. We can follow- up with this as an outpatient. Upon discharge she can see me within 2 weeks and we can discuss further treatment and surgical options at that time. Stable from my perspective for discharge once medically stabilized. Thank you for allowing us to assist in her care. If there are any questions or concerns please do not hesitate to contact us. Procedures Date of Service Date of Service: 01/29/25
[2025-01-29] MEDS: Cholestyramine (With Sugar) 4 GM POWD.PACK PO (20:47)
--- NOTE | 2025-01-30 | ECG_ITS ---
Test Reason : dyspnea Blood Pressure : */* mmHG Vent. Rate : 70 BPM Atrial Rate : * BPM P-R Int : * ms QRS Dur : 82 ms QT Int : 444 ms P-R-T Axes : * 74 160 degrees QTcB Int : 479 ms Atrial fibrillation with frequent ventricular-paced complexes ST & T wave abnormality, consider anterolateral ischemia Prolonged QT Abnormal ECG When compared with ECG of 29-Jan-2025 00:51, Electronic ventricular pacemaker has replaced Atrial fibrillation Referred By: Tootie Dozier Electronically Signed By: SUBHA QUEZADA MD
[2025-01-30 03:12] VITALS: BP 90/58; PULSE 61; RESP 17; TEMP 36.7; O2SAT 97
--- NOTE | 2025-01-30 05:39 | PC.NURSE ---
Scheduled evening metoprolol originally held per Dr. Roman Polanco written order for BP 91/63. Pt denied s/s. Later scheduled vitals showed BP 96/64 and MD advised to now give this metoprolol due to patient hx of afib RVR earlier this admission (none noted tonight; rate controlled). Med administered.
[2025-01-30 07:39] VITALS: BP 110/61; PULSE 63; RESP 20; TEMP 37; O2SAT 98
--- NOTE | 2025-01-30 08:11 | P.PNIM_ITS ---
Subjective Subjective Date of Service: 01/30/25 Interval History: Appears slightly more dyspneic We will obtain chest x-ray, EKG, we ABG Stop fluids Give her gentle diuresis Adjusting rate control meds along with Cardiology which we appreciate Review of Systems Review of Systems: Yes all other systems are reviewed and are negative Physical Exam 2 Exam: Exam: General: AOx3, appears frail and ill Resp: Bilateral crackles, wheezing and accessory muscle use noted CVS: S1, S2, RRR GI: +BS, NT, no distention Neuro: Cranial nerves II-XII grossly intact bilaterally. Motor grossly intact bilaterally Psych: Appropriate affect Vital Signs: Vital Signs: Last Vital Signs Temp 98.6 F 01/30/25 07:39 Pulse 63 01/30/25 07:39 Resp 20 01/30/25 07:39 BP 110/61 01/30/25 07:39 Pulse Ox 98 01/30/25 07:39 O2 Del Method Room Air 01/30/25 07:39 BMI result Body Mass Index 32.9 Objective Data Active Medications Acetaminophen (Acetaminophen 325 Mg Tablet) 650 mg PO Q6H PRN PRN Reason: Pain, Mild 1-3,fever,headache Hydrocodone Bitart/Acetaminophen (Hydrocodone Bit/Acetam 5/325 Tablet) 1 tab PO Q6H PRN PRN Reason: Pain, Severe (Pain Scale 7-10) Albuterol Sulfate (Albuterol Sulfate 90 Mcg 8 Gm Inhaler) 2 puff INHALE Q6H PRN PRN Reason: Wheezing Albuterol/Ipratropium (Albuterol/Iprat 2.5/0.5mg 3 Ml Ampul.Neb) 3 ml INHALE Q4H PRN PRN Reason: Shortness of Breath/Wheezing Albuterol/Ipratropium (Albuterol/Iprat 2.5/0.5mg 3 Ml Ampul.Neb) 3 ml INHALE Q4H PRN PRN Reason: Wheezing Ascorbic Acid (Ascorbic Acid 500 Mg Tablet) 500 mg PO DAILY@1200 [facility] Atorvastatin Calcium (Atorvastatin Calcium 20 Mg Tablet) 20 mg PO BEDTIME [facility] Last Admin: 01/29/25 20:47 Dose: 20 mg Documented By: BASSEM Calcium Carbonate (Calcium Carbonate 750 Mg Tab.Chew) 750 mg PO Q4H PRN PRN Reason: Heartburn Calcium Carbonate (Calcium Carbonate 750 Mg Tab.Chew) 750 mg PO DAILY PRN PRN Reason: Dyspepsia Cholestyramine Resin (Cholestyramine (With Sugar) 4 Gm Powd.Pack) 4 gm PO BID [facility] Last Admin: 01/30/25 08:08 Dose: Not Given Documented By: RUTH ANN Non-Admin Reason: Patient Refused Cyanocobalamin (Vitamin B12) (Cyanocobalamin (Vitamin B-12) 1,000 Mcg Tablet) 1,000 mcg PO DAILY [facility] Last Admin: 01/30/25 08:05 Dose: 1,000 mcg Documented By: RUTH ANN Dicyclomine HCl (Dicyclomine Hcl 10 Mg Capsule) 10 mg PO BID [facility] Last Admin: 01/30/25 08:05 Dose: 10 mg Documented By: RUTH ANN Digoxin (Digoxin 0.125 Mg Tablet) 0.125 mg PO Q48H [facility]; Protocol Last Admin: 01/29/25 11:23 Dose: 0.125 mg Documented By: ALESSIA Diphenoxylate HCl/Atropine (Diphenoxylate/Atrop 2.5/0.025 Tablet) 1 tab PO Q6H PRN PRN Reason: Loose Stool Escitalopram Oxalate (Escitalopram Oxalate 10 Mg Tablet) 10 mg PO DAILY [facility] Last Admin: 01/30/25 08:05 Dose: 10 mg Documented By: RUTH ANN Ferrous Sulfate (Ferrous Sulfate 324 Mg Tablet.Dr) 324 mg PO Q48H [facility] Last Admin: 01/29/25 11:23 Dose: 324 mg Documented By: ALESSIA Folic Acid (Folic Acid 1 Mg Tablet) 1 mg PO DAILY@1200 [facility] Hydralazine HCl (Hydralazine Hcl 20 Mg/Ml Vial) 5 mg IVPUSH Q6H PRN; Protocol PRN Reason: SBP > 160 Ceftriaxone Sodium 1 gm/ (Sodium Chloride) 50 mls @ 100 mls/hr IV Q24H [facility] Last Infusion: 01/29/25 21:10 Dose: Infused Documented By: BASSEM Sodium Chloride (Ns) 1,000 mls @ 100 mls/hr IVCONT .Q10H [facility] Last Admin: 01/30/25 08:05 Dose: 100 mls/hr Documented By: RUTH ANN Magnesium Hydroxide (Milk Of Magnesia 30 Ml Oral.Susp) 30 ml PO DAILY PRN PRN Reason: Constipation Magnesium Oxide (Magnesium Oxide 400 Mg Tablet) 200 mg PO BEDTIME [facility] Last Admin: 01/29/25 20:45 Dose: 200 mg Documented By: BASSEM Melatonin (Melatonin 3 Mg Tablet) 6 mg PO BEDTIME PRN PRN Reason: Insomnia Melatonin (Melatonin 3 Mg Tablet) 6 mg PO BEDTIME PRN PRN Reason: Sleep Metoprolol Tartrate (Metoprolol Tartrate 50 Mg Tablet) 50 mg PO BID [facility]; Protocol Last Admin: 01/30/25 08:05 Dose: 50 mg Documented By: RUTH ANN Non-Formulary Medication (Estradiol) 2 gm VAGINAL MOTH [facility] Omeprazole (Omeprazole 20 Mg Capsule.Dr) 20 mg PO DAILY@0630 [facility] Last Admin: 01/30/25 05:57 Dose: 20 mg Documented By: BASSEM Omeprazole (Omeprazole 20 Mg Capsule.) 20 mg PO DAILY@1200 [facility] Ondansetron HCl (Ondansetron Hcl 4 Mg/2 Ml Vial) 4 mg IVPUSH Q8H PRN PRN Reason: Nausea and Vomiting Last Admin: 01/29/25 02:04 Dose: 4 mg Documented By: MELINDA Polyethylene Glycol (Polyethylene Glycol 3350 17 Gm Powd.Pack) 17 gm PO DAILY PRN PRN Reason: Constipation Prochlorperazine Maleate (Prochlorperazine Maleate 5 Mg Tablet) 5 mg PO Q12H PRN PRN Reason: for nausea/vomiting Rivaroxaban (Rivaroxaban 20 Mg Tablet) 20 mg PO DAILY@1700 [facility] Last Admin: 01/29/25 17:44 Dose: 20 mg Documented By: GERALDO Senna (Sennosides 8.6 Mg Tablet) 17.2 mg PO BEDTIME [facility] Last Admin: 01/29/25 20:46 Dose: 17.2 mg Documented By: BASSEM Sodium Chloride (0.9 % Sodium Chloride Flush 3 Ml Syringe) [facility] Last Admin: 01/30/25 07:29 Dose: Not Given Documented By: RUTH ANN Non-Admin Reason: IV Running Tizanidine HCl (Tizanidine Hcl 4 Mg Tablet) 2 mg PO BEDTIME [facility] Last Admin: 01/29/25 20:46 Dose: 2 mg Documented By: BASSEM Vancomycin HCl (Vancomycin Hcl 125 Mg Capsule) 250 mg PO Q6H [facility] Last Admin: 01/30/25 05:57 Dose: 250 mg Documented By: BASSEM Vitamin D (Cholecalciferol (Vitamin D3) 25 Mcg Tablet) 25 mcg PO DAILY [facility] Last Admin: 01/30/25 08:05 Dose: 25 mcg Documented By: RUTH ANN Zinc Sulfate (Zinc Sulfate 220 Mg Capsule) 50 mg PO DAILY@1200 [facility] Labs 01/29/25 05:12 01/29/25 05:12 Microbiology Microbiology Results: Microbiology 01/28/25 19:29 Blood Culture - Preliminary Blood - Venous No growth after 24 hours. 01/28/25 19:26 Blood Culture - Preliminary Blood - Venous No growth after 24 hours. 01/28/25 Unknown Urine Culture - Preliminary Urine clean catch Culture in progress. Assessment and Plan (1) Pneumonia: Status: Resolved Plan 71-year-old female with a past medical history significant for persistent atrial fibrillation on Xarelto, CKD stage 3, abdominal aortic aneurysm (AAA) followed by [facility], COPD (not on home oxygen), GERD, history of uterine cancer, hyperlipidemia, hypertension, chronic indwelling Cadet catheter due to neurogenic bladder, sick sinus syndrome with a pacemaker in situ, and avascular necrosis of the left hip, presenting with gradually persistent nausea vomiting diarrhea and poor oral intake. AFib RVR Troponinemia type 2 demand SSS PCM -appears to be functioning at baseline Mildly dyspneic with increased work of breathing likely in the setting of fluid resuscitation We will start gentle diuresis CXR EKG Clinical presentation likely in the setting of missing her home dose given poor oral intake with nausea and vomiting, seems to improve with re-initiation of meds Digoxin level was subtherapeutic POA digoxin loading with 0.25 mg IV push q.6 x3 doses Repeat TTE-normal left ventricle, enlarged left atrium Continue metoprolol home dose, we will add IV prn for better rate control Continue Xarelto We will likely need outpatient cardiac catheterization TTE 01/29/2025- - 1. Normal LV ejection fraction 60 65% 2. Moderately reduced RV systolic function by TAPSE 3. Severely dilated left atrium next 4. Normal cardiac valvular Dopplers 5. Normal RV systolic pressure 6. No gross pericardial effusion Troponinemia likely type 2 Daily I's and os Low-sodium diet Sepsis likely due to UTI/ neurogenic bladder-chronic Cadet UA positive for UTI given chronic Cadet Continue ceftriaxone 1 g daily, change per C/S Continue to follow urine culture Goal would be to change patient's current Cadet catheter Patient normally on methenamine Persistent nausea/vomiting/diarrhea History of C diff Denies any further diarrheal episodes however we will check C diff and GI panel Preemptively given her prior history of C diff, given that we are treating her with antibiotics we will give her p.o. vancomycin Abdominal aortic aneurysm - currently 5.4 x 5.6, was 5.1 x 5.February No evidence of rupture Was briefly hypotensive likely secondary to AFib with RVR Vascular surgery Dr. Crook consulted-outpatient management of expanding AAA GERD Omeprazole Chronic dysphagia Speech therapy evaluated the patient-cleared her With the above management, patient appears to be tolerating diet COPD without exacerbation Albuterol & Duo nebs p.r.n. Hyperlipidemia Continue statin DVT prophylaxis: Xarelto Full code. Patient will need ongoing hospitalization given tenuous cardiac pathology and we will need to ensure adequate p.o. intake. This note is constructed using voice recognition software. While every effort has been made to ensure accuracy, service center representative errors may have been included. Quality Stroke Does the patient have a stroke diagnosis?: No Reason for No Anti-thrombotic by Day Two: N/A - Med Ordered VTE Prior VTE?: No VTE Risk Level:: Medical - moderate - high VTE Device Contraindication: N/A - Device Ordered VTE Drug Contraindication: N/A - Med Ordered
--- NOTE | 2025-01-30 10:47 | PM.PNCARD ---
Subjective Subjective Date of Service: 01/30/25 Principal diagnosis: Decompensated CHF Interval history: I saw Trupti in his follow up visit today. She is complaining of increased shortness of breath. She has received about 3 L of IV fluid and still racing high fluid. Hemodynamically she has been stable. Heart rate has been better controlled. She has no chest pain. Echocardiogram showed no significant wall motion abnormality with normal LV ejection fraction. Review of Systems Constitutional: Reports weakness Cardiovascular: Denies chest pain, Denies lightheadedness, Denies palpitations and Reports dyspnea Respiratory: Reports dyspnea Gastrointestinal: Reports no additional gastrointestinal complaints Genitourinary: Reports no additional female genitourinary complaints Musculoskeletal: Reports no additional musculoskeletal complaints Skin/Breast: Reports system reviewed and no additional complaints, except as docu Reports system reviewed and no additional complaints, except as documented and Reports weakness Psychiatric: Reports no additional psychiatric complaints Endocrine: Denies palpitations Hematologic/Lymphatic: Reports no additional hematologic/lymphatic complaints Allergic/Immunologic: Reports no additional allergic/immunologic complaints Physical Exam Vital Signs: Last Vital Signs Temp 98.6 F 01/30/25 07:39 Pulse 63 01/30/25 07:39 Resp 20 01/30/25 07:39 BP 110/61 01/30/25 07:39 Pulse Ox 98 01/30/25 07:39 O2 Del Method Room Air 01/30/25 07:39 BMI result Body Mass Index 32.9 Const General: cooperative, alert, awake and acute distress mild and respiratory Nutritional Appearance: average body habitus Orientation/consciousness: patient oriented x3 Neck Neck: Yes trachea midline, Yes supple and Yes no JVD Resp Effort & Inspection: normal respiratory effort Auscultation: crackles and wheezes Cardio Jugular venous distension: no JVD Rate: regular rate Rhythm: abnormal rhythm irregularly irregular Heart sounds: S1 normal heart sound present, S2 normal heart sound present, no click and no gallops Skin General skin exam: no rashes or lesions noted Neuro General: patient oriented x3 and no focal motor deficits Extrem General: Yes no clubbing, cyanosis or edema Objective Labs and Meds 01/29/25 05:12 01/29/25 05:12 Progress Note: A&P Assessment and plan (1) Decompensated heart failure: Status: Acute Assessment and Plan: Patient appears to have mild decompensated congestive heart failure from fluid resuscitation. Would consider gentle diuresis with Lasix 20 mg IV b.i.d.. Strict intake and output chart needs to be pursued. Would stop IV fluid resuscitation. Continue monitor. Continue monitor renal function. Also consider bronchodilators given her prior history of COPD. Discussed management with the nursing staff. (2) Atrial fibrillation with rapid ventricular response: Status: Acute Assessment and Plan: Atrial fibrillation with rapid ventricular response which is not better controlled. She is currently on metoprolol and digoxin which will be continue. Full oral anticoagulation to continue. (3) Abdominal aortic aneurysm: Status: Acute Assessment and Plan: Abdominal aortic aneurysm which has increased in size. Being followed by vascular surgery. Statin therapy should be considered. Will follow with you. Thank you for allowing me to partake in her care Time Spent With Patient Time: Total time managing care of this patient today ____ minutes. Progress Note: Quality Stroke Does the patient have a stroke diagnosis?: No Reason for No Anti-thrombotic by Day Two: N/A - Med Ordered Procedures Date of Service Date of Service: 01/30/25
[2025-01-30] MEDS: Furosemide 100 MG/10 ML VIAL 60 MG IVPUSH (11:21)
[2025-01-30 11:55] VITALS: BP 123/75; PULSE 68; RESP 20; TEMP 36.5; O2SAT 98
[2025-01-30 15:14] VITALS: BP 133/90; PULSE 93; RESP 20; TEMP 37.1; O2SAT 94
[2025-01-30 19:54] VITALS: BP 112/76; PULSE 75; RESP 16; TEMP 36.9; O2SAT 96
[2025-01-30] MEDS: 0.9 % Sodium Chloride Flush 3 ML SYRINGE IVFLUSH (20:02)
[2025-01-30] MEDS: Cholestyramine (With Sugar) 4 GM POWD.PACK PO (20:04)
[2025-01-31 00:58] VITALS: BP 110/68
[2025-01-31 04:00] VITALS: BP 106/64; PULSE 79; RESP 20; TEMP 36.6; O2SAT 97
[2025-01-31 07:26] VITALS: BP 127/61; PULSE 74; RESP 18; TEMP 36.6; O2SAT 98
--- NOTE | 2025-01-31 07:38 | HO.PM.IMPN ---
Subjective Subjective Date of Service: 01/31/25 Physical Exam Vital Signs: Vital Signs: Last Vital Signs Temp 97.8 F 01/31/25 07:26 Pulse 74 01/31/25 07:26 Resp 18 01/31/25 07:26 BP 127/61 01/31/25 07:26 Pulse Ox 98 01/31/25 07:26 O2 Del Method Room Air 01/31/25 07:26 BMI result Body Mass Index 32.9 Objective Data Active Medications Acetaminophen (Acetaminophen 325 Mg Tablet) 650 mg PO Q6H PRN PRN Reason: Pain, Mild 1-3,fever,headache Hydrocodone Bitart/Acetaminophen (Hydrocodone Bit/Acetam 5/325 Tablet) 1 tab PO Q6H PRN PRN Reason: Pain, Severe (Pain Scale 7-10) Albuterol Sulfate (Albuterol Sulfate 90 Mcg 8 Gm Inhaler) 2 puff INHALE Q6H PRN PRN Reason: Wheezing Albuterol/Ipratropium (Albuterol/Iprat 2.5/0.5mg 3 Ml Ampul.Neb) 3 ml INHALE Q4H PRN PRN Reason: Shortness of Breath/Wheezing Albuterol/Ipratropium (Albuterol/Iprat 2.5/0.5mg 3 Ml Ampul.Neb) 3 ml INHALE Q4H PRN PRN Reason: Wheezing Ascorbic Acid (Ascorbic Acid 500 Mg Tablet) 500 mg PO DAILY@1200 [facility] Last Admin: 01/30/25 11:21 Dose: 500 mg Documented By: RUTH ANN Atorvastatin Calcium (Atorvastatin Calcium 20 Mg Tablet) 20 mg PO BEDTIME [facility] Last Admin: 01/30/25 20:01 Dose: 20 mg Documented By: KENNEDY Calcium Carbonate (Calcium Carbonate 750 Mg Tab.Chew) 750 mg PO Q4H PRN PRN Reason: Heartburn Calcium Carbonate (Calcium Carbonate 750 Mg Tab.Chew) 750 mg PO DAILY PRN PRN Reason: Dyspepsia Cholestyramine Resin (Cholestyramine (With Sugar) 4 Gm Powd.Pack) 4 gm PO BID [facility] Last Admin: 01/30/25 20:04 Dose: 4 gm Documented By: KENNEDY Cyanocobalamin (Vitamin B12) (Cyanocobalamin (Vitamin B-12) 1,000 Mcg Tablet) 1,000 mcg PO DAILY [facility] Last Admin: 01/30/25 08:05 Dose: 1,000 mcg Documented By: RUTH ANN Dicyclomine HCl (Dicyclomine Hcl 10 Mg Capsule) 10 mg PO BID [facility] Last Admin: 01/30/25 20:01 Dose: 10 mg Documented By: KENNEDY Digoxin (Digoxin 0.125 Mg Tablet) 0.125 mg PO Q48H [facility]; Protocol Last Admin: 01/29/25 11:23 Dose: 0.125 mg Documented By: ALESSIA Diphenoxylate HCl/Atropine (Diphenoxylate/Atrop 2.5/0.025 Tablet) 1 tab PO Q6H PRN PRN Reason: Loose Stool Last Admin: 01/30/25 15:35 Dose: 1 tab Documented By: RUTH ANN Escitalopram Oxalate (Escitalopram Oxalate 10 Mg Tablet) 10 mg PO DAILY [facility] Last Admin: 01/30/25 08:05 Dose: 10 mg Documented By: RUTH ANN Ferrous Sulfate (Ferrous Sulfate 324 Mg Tablet.) 324 mg PO Q48H [facility] Last Admin: 01/29/25 11:23 Dose: 324 mg Documented By: ALESSIA Folic Acid (Folic Acid 1 Mg Tablet) 1 mg PO DAILY@1200 [facility] Last Admin: 01/30/25 11:20 Dose: 1 mg Documented By: RUTH ANN Furosemide (Furosemide 40 Mg Tablet) 40 mg PO BID@0900,1800 [facility]; Protocol Last Admin: 01/30/25 17:12 Dose: 40 mg Documented By: RUTH ANN Hydralazine HCl (Hydralazine Hcl 20 Mg/Ml Vial) 5 mg IVPUSH Q6H PRN; Protocol PRN Reason: SBP > 160 Ceftriaxone Sodium 1 gm/ (Sodium Chloride) 50 mls @ 100 mls/hr IV Q24H [facility] Last Infusion: 01/30/25 21:17 Dose: Infused Documented By: KENNEDY Magnesium Hydroxide (Milk Of Magnesia 30 Ml Oral.Susp) 30 ml PO DAILY PRN PRN Reason: Constipation Magnesium Oxide (Magnesium Oxide 400 Mg Tablet) 200 mg PO BEDTIME [facility] Last Admin: 01/30/25 20:01 Dose: 200 mg Documented By: KENNEDY Melatonin (Melatonin 3 Mg Tablet) 6 mg PO BEDTIME PRN PRN Reason: Insomnia Melatonin (Melatonin 3 Mg Tablet) 6 mg PO BEDTIME PRN PRN Reason: Sleep Metoprolol Tartrate (Metoprolol Tartrate 50 Mg Tablet) 50 mg PO BID [facility]; Protocol Last Admin: 01/30/25 20:01 Dose: 50 mg Documented By: KENNEDY Omeprazole (Omeprazole 20 Mg Capsule.Dr) 20 mg PO DAILY@1200 [facility] Last Admin: 01/30/25 11:20 Dose: 20 mg Documented By: RUTH ANN Ondansetron HCl (Ondansetron Hcl 4 Mg/2 Ml Vial) 4 mg IVPUSH Q8H PRN PRN Reason: Nausea and Vomiting Last Admin: 01/29/25 02:04 Dose: 4 mg Documented By: MELINDA Polyethylene Glycol (Polyethylene Glycol 3350 17 Gm Powd.Pack) 17 gm PO DAILY [facility] Prochlorperazine Maleate (Prochlorperazine Maleate 5 Mg Tablet) 5 mg PO Q12H PRN PRN Reason: for nausea/vomiting Rivaroxaban (Rivaroxaban 20 Mg Tablet) 20 mg PO DAILY@1700 [facility] Last Admin: 01/30/25 17:12 Dose: 20 mg Documented By: RUTH ANN Senna (Sennosides 8.6 Mg Tablet) 17.2 mg PO BEDTIME [facility] Last Admin: 01/30/25 20:02 Dose: Not Given Documented By: KENNEDY Non-Admin Reason: contraindicated Sodium Chloride (0.9 % Sodium Chloride Flush 3 Ml Syringe) 3 ml IVFLUSH QSHIFT [facility] Last Admin: 01/30/25 20:02 Dose: 3 ml Documented By: KENNEDY Tizanidine HCl (Tizanidine Hcl 4 Mg Tablet) 2 mg PO BEDTIME [facility] Last Admin: 01/30/25 20:01 Dose: 2 mg Documented By: KENNEDY Vancomycin HCl (Vancomycin Hcl 125 Mg Capsule) 250 mg PO Q6H [facility] Last Admin: 01/31/25 06:04 Dose: 250 mg Documented By: KENNEDY Vitamin D (Cholecalciferol (Vitamin D3) 25 Mcg Tablet) 25 mcg PO DAILY [facility] Last Admin: 01/30/25 08:05 Dose: 25 mcg Documented By: RUTH ANN Zinc Sulfate (Zinc Sulfate 220 Mg Capsule) 220 mg PO DAILY@1200 [facility] Last Admin: 01/30/25 11:21 Dose: 220 mg Documented By: DANIELLAOPEEA Labs 01/29/25 05:12 01/29/25 05:12 Microbiology Microbiology Results: Microbiology 01/28/25 19:29 Blood Culture - Preliminary Blood - Venous No growth after 48 hours. 01/28/25 19:26 Blood Culture - Preliminary Blood - Venous No growth after 48 hours. 01/28/25 Unknown Urine Culture - Final Urine clean catch Quality Stroke Does the patient have a stroke diagnosis?: No Reason for No Anti-thrombotic by Day Two: N/A - Med Ordered VTE Prior VTE?: No VTE Risk Level:: Medical - moderate - high VTE Device Contraindication: N/A - Device Ordered VTE Drug Contraindication: N/A - Med Ordered
[2025-01-31] MEDS: Cholestyramine (With Sugar) 4 GM POWD.PACK PO (09:24)
[2025-01-31] MEDS: 0.9 % Sodium Chloride Flush 3 ML SYRINGE IVFLUSH (09:26)
--- NOTE | 2025-01-31 10:53 | P.DS_ITS ---
DS: Providers Provider Date of admission: 01/28/25 23:27 Date of discharge: 01/31/25 Primary care physician: Raffy Orona MD Consults: 01/29/25 00:36 Consult to Cardiology Routine Consulting Provider: [facility] [place] [facility] Reason for consultation: AFIB RVR, ELEVATED TROPONINS< ABN ECG Has provider been notified: No 01/29/25 00:38 Consult to Vascular Surgery Routine Consulting Provider: [facility] [place] [facility] Reason for consultation: AAA, pulsatile, no evidence of rupture, larger in size since February 2024 Has provider been notified: No DS: Summary Hospital Course Hospital Course: Per H&P: Chief Complaint: SOB Patient is a 74-year-old female with past medical history CKD stage 3, AAA currently 5.4 x 5.6, was 5.1 x 5.February, AFib on Xarelto, COPD (does not use home O2), GERD, hyperlipidemia, hypertension, uterine cancer, prolapsed bladder, neurogenic bladder, sick sinus syndrome with PPM (just changed 08/30), Cdiff, avascular necrosis of the left hip and so far patient has not found a physician willing to do the hip replacement so that she can have the AAA repair presents to the emergency department today for complaints of approximately 4 weeks of persistent nausea and vomiting especially this past Monday and Monday to the point that patient could not take her usual medications. Patient has also been reporting ongoing diarrhea which is being treated by her PCP. Patient reports abdominal pain and patient is not clear if it is related to her AAA or something different. Patient was found to be in AFib RVR on arrival and has received treatment for this and heart rates now hovering around 100 irregular. Patient states she is having associated weakness but no falls and poor appetite and poor fluid intake. Patient denies any chest pain or chest pressure. Patient is not having any fever, chills or night sweats. Patient was found to have a leukocytosis of 11.9, with neutrophilia but no bandemia. Electrolytes were stable and renal function was at patient's baseline with a GFR of 54 and a creatinine clearance of 48.1. Glucose 135. Magnesium 2.0. Troponins 76.5 than 89.7. BNP 7521. EKG noted AFib RVR with a rate of [address] abnormality indicating possible inferior subendocardial injury. Patient did have a Lexiscan stress test in March 2024. Urinalysis noted for +1 protein, positive nitrites, moderate leukocyte esterase, 11-20 WBCs and 4+ bacteria. Blood cultures and urine culture were collected in the ED. Patient was started on ceftriaxone and IV fluids in the ED. Patient received IV metoprolol for her AFib RVR. Hospital course: Atrial Fibrillation with RVR / Troponinemia On admission, the patient was found to be in atrial fibrillation with rapid ventricular response, likely due to missed home medications in the setting of poor oral intake and dehydration. She was also noted to have mild troponin elevation, felt to represent type 2 demand ischemia. Digoxin level on admission was subtherapeutic, and she was treated with IV digoxin loading (0.25 mg IV every 6 hours ?3 doses) with improvement in heart rate control. Home metoprolol was resumed with good rate control. Anticoagulation with rivaroxaban was continued. Transthoracic echocardiogram on 01/29/25 showed normal left ventricular systolic function (EF 60?65%), moderately reduced right ventricular systolic function, and severely dilated left atrium, with no significant valvular disease or pericardial effusion. She remained hemodynamically stable on telemetry. Outpatient cardiac catheterization was recommended. Volume Status / Respiratory Symptoms Following IV fluid resuscitation, the patient developed mild dyspnea with increased work of breathing, felt to be due to volume overload. She was treated with gentle diuresis with improvement. Daily intake and output monitoring and a low sodium diet were implemented. Lasix was given with good effect- not needed on discharge as the patient was euvolemic Sepsis Secondary to UTI The patient met criteria for sepsis, likely secondary to a urinary tract infection in the setting of a chronic indwelling Abdi catheter for neurogenic bladder. Urinalysis was positive for infection. She was treated with IV ceftriaxone, with plans to tailor antibiotics based on culture results. Abdi catheter exchange was planned. The patient is typically maintained on methenamine as an outpatient. Patient to complete Bactrim for 3 more days to complete 5 day course of antibiotics Gastrointestinal Symptoms / C. difficile History Given her history of C. difficile infection and recent diarrhea, stool studies including C. difficile testing and GI panel were ordered. Although diarrhea r esolved during hospitalization, oral vancomycin prophylaxis was initiated due to antibiotic exposure and prior history. Nausea and vomiting improved, and the patient was able to tolerate oral intake prior to discharge. Abdominal Aortic Aneurysm CT imaging demonstrated a known abdominal aortic aneurysm measuring 5.4 ? 5.6 cm, increased from prior measurements. There was no evidence of rupture. Tra nsient hypotension was attributed to atrial fibrillation with RVR. Vascular surgery was consulted, and outpatient follow up with Dr. Crook was recommended for ongoing surveillance and management. Other Chronic Conditions COPD: Stable without exacerbation; treated with PRN bronchodilators GERD: Continued on omeprazole Chronic dysphagia: Evaluated by speech therapy and cleared for diet Hyperlipidemia: Continued statin therapy Patient likely had new onset AFib with RVR which was causing her to have difficulty with her oral intake, which has thus been addressed with resuming home meds and optimizing them. Patient able to tolerate p.o. intake since admission. Patient is hemodynamically optimized and deemed safe for discharge home by PTOT Patient to follow up with PCP, Cardiology and vascular surgery outpatient Time spent discussing smoking cessation with patient: more than 10 minutes Status at Discharge Functional status at discharge: independent ambulation Overall status at discharge: patient is back to baseline Time Attestation Discharge Coordination Time (in mins): 65 Quality: Safe Use of Opioids Does Pt have an Active Cancer Diagnosis on the Problem List?: No Quality: Stroke Does the patient have a stroke diagnosis?: No Physical Exam Vital Signs: Vital Signs: Last Vital Signs Temp 97.8 F 01/31/25 07:26 Pulse 74 01/31/25 07:26 Resp 18 01/31/25 07:26 BP 127/61 01/31/25 07:26 Pulse Ox 98 01/31/25 07:26 O2 Del Method Room Air 01/31/25 07:26 BMI result Body Mass Index 32.9 DS: Data Data Completed and Pending Labs on day of discharge: Preliminary micro results at discharge 01/28/25 19:29 Blood Culture - Preliminary Blood - Venous No growth after 48 hours. 01/28/25 19:26 Blood Culture - Preliminary Blood - Venous No growth after 48 hours. Discharge Plan Discharge Anticipated Discharge Date/Time: 01/31/25 11:01 Patient Disposition: Home, Self-Care Discharge Diagnosis: UTI causing AFib with RVR, resolved Referrals: Raffy Orona MD [Primary Care Provider, Internal Medicine] - 1 Week Fareed Crook MD [Physician, Vascular Surgery] - 1 Week Freddy Pugh MD [Physician, Cardiology] - 1 Week Discharge Medications: New sulfamethoxazole-trimethoprim [Bactrim DS] 800-160 mg tablet 1 tab PO Q12H 3 Days Qty: 6 0RF Continued ondansetron HCl 4 mg tablet 4 mg PO Q6H PRN (Reason: for nausea/vomiting) Qty: 60 2RF methenamine hippurate 1 gram tablet 1 g PO DAILY 90 Days Qty: 90 1RF prochlorperazine maleate 5 mg tablet 5 mg PO Q12H PRN (Reason: for nausea/vomiting) Qty: 30 3RF colestipol 1 gram tablet 1 g PO BID Qty: 180 0RF albuterol sulfate 90 mcg/actuation HFA aerosol inhaler 2 puff inhalation Q6H PRN (Reason: wheezing) ipratropium-albuterol 0.5 mg-3 mg(2.5 mg base)/3 mL Solution For Nebulization 3 ml INHALATION Q4H PRN (Reason: Wheezing) calcium carbonate 500 mg calcium (1,250 mg) Tablet,Chewable 500 mg PO DAILY PRN (Reason: Dyspepsia) digoxin 125 mcg (0.125 mg) tablet 125 mcg PO Q OTHER DAY Rx Instructions: [facility] list reports until 04/04/24 melatonin 5 mg Tablet 5 mg PO BEDTIME PRN (Reason: Sleep) diphenoxylate-atropine [Lomotil] 2.5-0.025 mg tablet 1 tab PO Q6-8H PRN (Reason: Loose Stool) ascorbic acid (vitamin C) [Vitamin C] 500 mg tablet 500 mg PO DAILY@1200 lansoprazole 30 mg capsule,delayed release(DR/EC) 30 mg PO DAILY@1200 zinc sulfate 50 mg zinc (220 mg) capsule 50 mg PO DAILY@1200 dicyclomine 10 mg Capsule 10 mg PO BID magnesium citrate 100 mg Capsule 200 mg PO BEDTIME Xarelto 20 mg tablet 20 mg PO DAILY@1700 metoprolol tartrate 50 mg tablet 50 mg PO BID hydrocodone-acetaminophen 5-325 mg Tablet 1 tab PO Q6H PRN (Reason: Pain, Severe (Pain Scale 7-10)) Qty: 20 0RF Rx Instructions: Partial Fill upon patient request. folic acid 1 mg tablet 1 mg PO DAILY@1200 [place] See Rx Instructions .Route .MEDSUPPLY Qty: 1 11RF Rx Instructions: As directed- 1 catheter night bag per month [place] catheter [place] kit See Rx Instructions .Route .MEDSUPPLY Qty: 2 11RF Rx Instructions: As directed- 2 kits per month (DME) abdi catheters 18 korean See Rx Instructions .Route .MEDSUPPLY Qty: 2 11RF Rx Instructions: As directed- 2 catheters per month (DME) catheter irrigation kit See Rx Instructions .Route .MEDSUPPLY Qty: 2 11RF Rx Instructions: As directed- 2 kits per month (DME) sterile water See Rx Instructions .Route .MEDSUPPLY Qty: 1 11RF Rx Instructions: As directed for abdi catheter irrigation (DME) leg bags See Rx Instructions .Route .MEDSUPPLY Qty: 2 11RF Rx Instructions: 2 catheter leg bags per month simvastatin 40 mg tablet 40 mg PO BEDTIME escitalopram oxalate 10 mg tablet 10 mg PO DAILY cholecalciferol (vitamin D3) 25 mcg (1,000 unit) capsule 25 mcg PO DAILY tizanidine 2 mg tablet 2 mg PO BEDTIME cyanocobalamin (vitamin B-12) 1,000 mcg tablet 1,000 mcg PO DAILY estradiol 0.01 % (0.1 mg/gram) cream 2 g vaginal MOTH ferrous sulfate 325 mg (65 mg iron) tablet 325 mg PO Q48H Discharge Orders: Discharge Order (Routine); Ordered 01/31/25 Ordered By: Tootie Dozier Diet: Low salt diet Activity on Discharge: As tolerated Stand Alone Forms: Patient Portal Discharge page Print Language: R[place] Care Plan Goals: Please see Health Concerns: Below are clear, problem?focused care plan goals appropriate for this patient, written in concise inpatient nursing/medical care plan language. Care Plan Goals Cardiac Rhythm / Atrial Fibrillation - Maintain heart rate <100 bpm at rest - Remain hemodynamically stable without recurrent RVR - Maintain therapeutic anticoagulation without bleeding complications Perfusion / Myocardial Demand - Prevent recurrent demand ischemia - Maintain stable troponin levels without ischemic symptoms Infection / Sepsis (UTI) - Resolution of infection as evidenced by afebrile status and improving labs - Clearance or improvement of urine culture with appropriate antibiotics - Maintain Abdi catheter patency and minimize infection risk Fluid Balance - Achieve and maintain euvolemia - Stable daily weights and balanced intake/output - No dyspnea or signs of volume overload Renal Function - Maintain stable renal function at or near baseline - Avoid nephrotoxic exposures and electrolyte derangements Gastrointestinal Symptoms / Nutrition - Resolution of nausea, vomiting, and diarrhea - Tolerate oral diet without recurrence of symptoms - Maintain adequate hydration and nutritional intake Respiratory Status - Maintain oxygen saturation >=8% on room air - No increased work of breathing or COPD exacerbation Abdominal Aortic Aneurysm - No signs of rupture or acute expansion during hospitalization - Safe transition to outpatient vascular surgery follow?up Medication Adherence - Resume and tolerate home medication regimen - Patient demonstrates understanding of medication purpose and dosing Safety / Discharge Readiness - No falls or hospital?acquired complications - Patient stable for discharge with appropriate follow up in place Plan of Treatment: See above Assessment: See above
[2025-01-31 11:07] VITALS: BP 137/90; PULSE 80; RESP 18; TEMP 36.6; O2SAT 96
--- NOTE | 2025-01-31 11:43 | MHC.CM.PN ---
Pt. has been medically cleared, she will go home via family transport and resume services from [facility].
--- NOTE | 2025-01-31 14:17 | PM.PNCARD ---
Subjective Subjective Date of Service: 01/31/25 Principal diagnosis: Decompensated CHF Interval history: Patient feeling a lot better. Diuresed over 2 L since yesterday. Breathing is much improved. No new symptoms except for complaining of diarrhea. Review of Systems Review of Systems Yes all other systems are reviewed and are negative Physical Exam Vital Signs: Last Vital Signs Temp 97.9 F 01/31/25 11:07 Pulse 80 01/31/25 11:07 Resp 18 01/31/25 11:07 BP 137/90 H 01/31/25 11:07 Pulse Ox 96 01/31/25 11:07 O2 Del Method Room Air 01/31/25 11:07 BMI result Body Mass Index 32.9 Const General: cooperative, alert, awake and acute distress mild and respiratory Nutritional Appearance: average body habitus Orientation/consciousness: patient oriented x3 Neck Neck: Yes trachea midline, Yes supple and Yes no JVD Resp Effort & Inspection: normal respiratory effort Auscultation: clear to auscultation bilaterally Cardio Jugular venous distension: no JVD Rate: regular rate Rhythm: abnormal rhythm irregularly irregular Heart sounds: S1 normal heart sound present, S2 normal heart sound present, no click and no gallops Skin General skin exam: no rashes or lesions noted Neuro General: patient oriented x3 and no focal motor deficits Extrem General: Yes no clubbing, cyanosis or edema Objective Labs and Meds 01/29/25 05:12 01/29/25 05:12 Progress Note: A&P Assessment and plan (1) Decompensated heart failure: Status: Acute Assessment and Plan: Decompensated congestive heart failure related to acute medical illness as well as fluid overload. Improved significantly with diuresis. Plan for discharge today. I would start her on Jardiance 10 mg daily for heart failure management. Hold off on loop diuretics. Heart failure management discussed with her. Continue rate control. Follow up as outpatient in 2 weeks time. (2) Persistent atrial fibrillation: Status: Acute Assessment and Plan: Persistent chronic atrial fibrillation. Currently rate controlled. Continue rate control strategy. Continue full oral anticoagulation as prescribed from before. Will sign of the case. Patient planned to be discharged today. Thank you for allowing me to partake in her care Time Spent With Patient Time: Total time managing care of this patient today ____ minutes. Progress Note: Quality Stroke Does the patient have a stroke diagnosis?: No Reason for No Anti-thrombotic by Day Two: N/A - Med Ordered Procedures Date of Service Date of Service: 01/31/25
--- NOTE | 2025-02-20 16:21 | P.CDIM_ITS ---
PROVIDER RESPONSE TEXT: To clarify, the appropriate diagnosis supported by the clinical indicators: Yes, UTI is related to / associated with / due to Cadet catheter QUERY TEXT: PHYSICIAN'S DOCUMENTATION REQUEST Date of Query: 02/18/2025 09:24 AM EST Patient Name: Trupti Jung Admit Date: 01/29/2025 Dear Tootie Dozier MD, A review of the medical record indicates additional documentation may be needed. Please review below and update the documentation accordingly. Documentation includes the conditions of UTI and Cadet catheter. 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 Please use your independent medical judgment in providing your response. THIS QUERY IS PART OF THE PERMANENT MEDICAL RECORD
== END 2025-01-31 13:19 | disposition home or self-care (01) | DRG 698 ==
LOC: HO.ED 21:06 → HO.EDOVER 23:32 → HO.IMC 01-29 16:09
PROVIDERS: Admitting Provider Nurse Practitioner Family; Emergency Provider Emergency Medicine; PCP Internal Medicine; Visit Provider Student in an Organized Health Care Education/Training Program
DX: T83.511A Infection and inflammatory reaction due to indwelling urethral catheter, initial encounter (principal); A41.9 Sepsis, unspecified organism; I48.19 Other persistent atrial fibrillation; I49.5 Sick sinus syndrome; N31.9 Neuromuscular dysfunction of bladder, unspecified; J44.9 Chronic obstructive pulmonary disease, unspecified; R13.10 Dysphagia, unspecified; E78.5 Hyperlipidemia, unspecified; I50.9 Heart failure, unspecified; N39.0 Urinary tract infection, site not specified; N18.30 Chronic kidney disease, stage 3 unspecified; I71.43 Infrarenal abdominal aortic aneurysm, without rupture; Z20.822 Contact with and (suspected) exposure to COVID-19; Z91.148 Patient's other noncompliance with medication regimen for other reason; Z95.0 Presence of cardiac pacemaker; Z79.01 Long term (current) use of anticoagulants; Z79.899 Other long term (current) drug therapy
CPT/HCPCS: 36415; 71045; 74177; 80053; 80162; 81001; 83605; 83690; 83735; 83880; 84484; 85025; 85610; 87040; 87086; 87637; 92610; 93005; 93306; 97162; 97165; 99285; J0696; J1938; J2405; J7120; Q9957; Q9967

== ENCOUNTER → 2025-01-28 18:54 | Outpatient (BNV) | payer MEDICARE, SELFPAY | PROVIDERS: Admitting Provider Nurse Practitioner Family; Emergency Provider Emergency Medicine; PCP Internal Medicine; Visit Provider Internal Medicine Cardiovascular Disease | DX: I48.91 Unspecified atrial fibrillation (principal) | CPT/HCPCS: 93010 ==

== ENCOUNTER → 2025-01-28 19:08 | Outpatient (BNV) | payer MEDICARE, MEDICAID, SELFPAY | PROVIDERS: Emergency Provider Emergency Medicine; PCP Internal Medicine; Visit Provider Radiology Diagnostic Radiology | DX: I71.43 Infrarenal abdominal aortic aneurysm, without rupture (principal); R53.1 Weakness | CPT/HCPCS: 71045; 74177 ==

== ENCOUNTER 2025-01-28 23:27 | Outpatient (BNV) | payer MEDICARE, SELFPAY | END 2025-01-30 11:02 | PROVIDERS: Admitting Provider Nurse Practitioner Family; Emergency Provider Emergency Medicine; PCP Internal Medicine; Visit Provider Internal Medicine Cardiovascular Disease | DX: I48.91 Unspecified atrial fibrillation (principal); Z95.0 Presence of cardiac pacemaker | CPT/HCPCS: 93010 ==

== ENCOUNTER 2025-01-28 23:27 | Outpatient (BNV) | payer MEDICARE, SELFPAY | END 2025-01-29 08:00 | PROVIDERS: Admitting Provider Nurse Practitioner Family; Emergency Provider Emergency Medicine; PCP Internal Medicine; Visit Provider Internal Medicine Cardiovascular Disease | DX: I48.91 Unspecified atrial fibrillation (principal); I25.2 Old myocardial infarction | CPT/HCPCS: 93010; 93306 ==

== ENCOUNTER 2025-01-28 23:27 | Outpatient (BNV) | payer MEDICARE, SELFPAY | END 2025-01-30 11:22 | PROVIDERS: Admitting Provider Nurse Practitioner Family; Emergency Provider Emergency Medicine; PCP Internal Medicine; Visit Provider Student in an Organized Health Care Education/Training Program | DX: R06.00 Dyspnea, unspecified (principal) | CPT/HCPCS: 71045 ==

== ENCOUNTER → 2025-01-28 23:27 | Outpatient (BNV) | payer MEDICARE, MEDICAID, SELFPAY | PROVIDERS: Admitting Provider Nurse Practitioner Family; Emergency Provider Emergency Medicine; PCP Internal Medicine; Visit Provider Nurse Practitioner Family | DX: N39.0 Urinary tract infection, site not specified (principal) | CPT/HCPCS: 99223; 99233; 99239 ==

== ENCOUNTER → 2025-01-28 23:27 | Outpatient (BNV) | payer MEDICARE, SELFPAY | PROVIDERS: Admitting Provider Nurse Practitioner Family; Emergency Provider Emergency Medicine; PCP Internal Medicine; Visit Provider Surgery Vascular Surgery | DX: I71.43 Infrarenal abdominal aortic aneurysm, without rupture (principal) | CPT/HCPCS: 99222 ==

== ENCOUNTER → 2025-01-28 23:27 | Outpatient (BNV) | payer MEDICARE, SELFPAY | PROVIDERS: Admitting Provider Nurse Practitioner Family; Emergency Provider Emergency Medicine; PCP Internal Medicine; Visit Provider Internal Medicine Cardiovascular Disease | DX: I50.9 Heart failure, unspecified (principal); I48.91 Unspecified atrial fibrillation; I71.43 Infrarenal abdominal aortic aneurysm, without rupture | CPT/HCPCS: 99222; 99233 ==